=== PATIENT | male | born 1950 | race Caucasian/White ===

== ENCOUNTER 2019-06-19 21:45 | Observation (INO) ==
[2019-06-19] MEDS ORDERED: SODIUM CHLORIDE 0.9% 500 ML IV SCH (22:30)
--- NOTE | 2019-06-19 22:46 | XRay Report ---
XR chest 1V portable HISTORY: 68 years-old Male syncope acute syncope COMPARISON: Chest radiograph 11/30/2015 TECHNIQUE: Portable AP view of the chest FINDINGS: Cardiac silhouette is mildly enlarged. Right greater than left bibasilar opacities are noted. Mild hy poinflation. No pneumothorax, large pleural effusion or overt pulmonary edema. Calcified plaque of th e thoracic aortic arch. Bones appear grossly intact. IMPRESSION: Right greater than left bibasilar opacities suggest probable atelectasis. Pneumonitis cou ld appear similarly. ACT 112: Negative or not required by law. The above report was generated using voice recognition software. It may contain grammatical, syntax o r spelling errors. Electronically signed by: Kyrie Gordon M.D. 06/19/2019 10:44 PM
[2019-06-19 22:48] LABS: Basophils # (auto) 0.02 K/uL (0-0.2); Basophils % (auto) 0.2 %; Eosinophils # (auto) 0.12 K/uL (0-0.5); Eosinophils % (auto) 1.3 %; Hematocrit (blood only) 36.6 % (42-52); Hemoglobin 12.3 g/dL (14.0-18.0); Immature Granulocytes # (auto) 0.03 K/uL (0.00-0.02); Immature Granulocytes % (auto) 0.3 %; Lymphocytes # (auto) 1.52 K/uL (1.2-3.4); Lymphocytes % (auto) 16.4 %; Mean Corpuscular Hemoglobin 31.7 pg (25-34); Mean Corpuscular Hgb Conc 33.6 g/dL (32-36); Mean Corpuscular Volume 94.3 fL (80-100); Mean Platelet Volume 10.1 fL (7.4-10.4); Monocytes # (auto) 0.38 K/uL (0.11-0.59); Monocytes % (auto) 4.1 %; Neutrophils # (auto) 7.18 K/uL (1.4-6.5); Neutrophils % (auto) 77.7 %; Platelet Count 214 K/uL (130-400); RDW Coefficient of Variation 14.8 % (11.5-14.5); RDW Standard Deviation 49.9 fL (36.4-46.3); Red Blood Count 3.88 M/uL (4.7-6.1); White Blood Count 9.25 K/uL (4.8-10.8)
[2019-06-19 23:07] LABS: Alanine Aminotransferase 41 U/L (12-78); Albumin Level 3.7 gm/dl (3.4-5.0); Aspartate Aminotransferase 30 U/L (15-37); BUN Creatinine Ratio 11.5 (10-20); Blood Urea Nitrogen 13 mg/dl (7-18); Calcium 8.8 mg/dl (8.5-10.1); Carbon Dioxide 27 mmol/L (21-32); Chloride 111 mmol/L (98-107); Creatinine Clr Calc Pharmacy 57.6 ml/min; Est GFR (African American) 73.3; Est GFR (Non-African American) 63.2; Glucose 135 mg/dl (70-99); Lipase 169 U/L (73-393); Magnesium 2.2 mg/dl (1.8-2.4); Potassium 3.8 mmol/L (3.5-5.1); Sodium 142 mmol/L (136-145)
[2019-06-19 23:17] LABS: Albumin Globulin Ratio 1.1 (0.9-2); Alkaline Phosphatase 95 U/L (45-117); Bilirubin,Total 0.5 mg/dl (0.2-1); Globulin 3.5 gm/dl (2.5-4.0); Total Protein 7.2 gm/dl (6.4-8.2); Troponin I < 0.015 ng/ml (0-0.045)
[2019-06-19] MEDS ORDERED: OPTIRAY 320 125ml IV PRN (23:17)
[2019-06-20] MEDS ORDERED: METOPROLOL TARTRATE 25 MG TAB PO STA (02:15)
[2019-06-20] MEDS ORDERED: GABAPENTIN 800 MG TAB PO STA (02:15)
--- NOTE | 2019-06-20 02:43 | Emergency Department Note ---
Entered by Estela Cummings acting as a scribe for Margarito Sandoval MD ED Provider Note CHIEF COMPLAINT: Syncope HISTORY OF PRESENT ILLNESS: The patient is a 68 year old male who presents to the Emergency Room with complaints of syncope. The patient states that he was napping on his couch for about 10 minutes this evening when he got up to go to bed, began walking up the stairs, and suddenly felt uneasy while standing. He explains that he then began to experience nausea, one episode of vomiting, and lightheadedness followed by a syncopal episode. He states that he fell onto his knees and his fall was witnessed by his family. The patient's family reports seizure like activity during the episode and explain that his body was "clenched" and that he started making grunting noises. The episode lasted for about 40 seconds. The patient did not hit his head but he began experiencing a headache which he describes as "a rubber band around his head". Currently, he admits that his head feels better than it did when the episode happened but he still reports some pressure. The patient also experiences some lightheadedness when he sits up in bed. He also reports some numbness and tingling in his forehead. Family states that he felt numb all over his body after the episode. Of note, the patient admits that he was feeling fine earlier in the day today and that he did not eat anything unusual for dinner nor can he recall any known sickness exposure. He was given Zofran and fluids by EMS in route which he states somewhat helped his symptoms. Pt denies fevers, chills, diaphoresis, visual changes, neck pain, chest pain, breathing difficulties, abdominal pain, back pain, melena, hematochezia, urinary symptoms, lymphadenopathy, rash, or other complaints. REVIEW OF SYSTEMS: See HPI for pertinent positives and negatives. A total of ten systems were reviewed and were otherwise negative. PMHx/PSHx: Vertigo, 2 cerebral aneurysms, aortic aneurysm SOCIAL HISTORY: Patient lives at home. PHYSICAL EXAM: GENERAL: Awake, alert, tired-appearing, in no distress HENT: Normocephalic, atraumatic. Oropharynx unremarkable. EYES: PERRL. Normal conjunctiva. Sclera non-icteric. NECK: Inspection normal. Non-tender. Supple. No nuchal rigidity. FROM. No masses. RESPIRATORY: Clear to auscultation. No wheezes. No rales. Normal respiratory effort. CARDIAC: Normal rate. Normal rhythm. No murmurs. No rubs. Extremities warm and well perfused. Pulses equal. No JVD. GI: Soft, non-distended. No tenderness to palpation. No rebound or guarding. No masses. RECTAL: Deferred. MUSCULOSKELETAL: Atraumatic. Chest examination reveals no tenderness. The back is symmetrical on inspection without obvious abnormality. There is no CVA tenderness to palpation. No joint edema. LOWER EXTREMITIES: Calves are equal size bilaterally and non-tender. No edema. No discoloration. NEURO: Normal sensorium. No sensory or motor deficits noted. Cranial nerves II through XII intact. Normal PROMISE. Normal heel to downing. SKIN: No rash or jaundice noted. EMERGENCY DEPARTMENT COURSE: 2200: Past medical records reviewed. The patient was evaluated in room B03A, and a complete history and physical examination were performed. 2203: The patient was placed on a monitor tech. 0027: I checked on the patient and he states that he is feeling improved. 0042: [facility] 0045: I checked on the patient and updated him on plan to admit. The patient verbally expressed understanding and agreement of the treatment plan. The patient will be evaluated for further treatment. MEDICAL DECISION MAKING: Prior records/ancillary studies reviewed. Triage Nursing notes reviewed and agree them. Additional history obtained from the family. The patient's history was concerning for syncope. Differential diagnosis: Etiologies such as infection, hypoglycemia, electrolyte abnormalities, cardiac sources, intracerebral event, toxicologic, neurologic, as well as others were entertained. Physical examination: As above. No focal findings. ER treatment provided: IV hydration with normal saline On reassessment the patient felt better. Diagnostics interpretation by me: ECG: Normal sinus without ectopy or dysrhythmia. No interval prolongation. The labs revealed mild anemia on CBC. Chemistry panel was unremarkable. Troponin negative. Imaging studies: CT angiogram of the head was performed. No acute hemorrhage. Cerebral aneurysms are noted. These are consistent with the patient's description. Chest imaging negative. The patient had a syncopal episode. There was not a significant prodrome to this. It did occur shortly after getting up. The patient has not had any recent illnesses. He has no stigmata of DVT or has not been traveling. No recent surgeries or hospitalizations. He was requiring some supplemental oxygen via nasal cannula after initial evaluation in the ER. He does have a history of smoking. He cannot have chest CT scan done as he is already seeing a dye load. Given the syncopal episode and need for supplemental oxygen the patient should stay in the hospital for further management. Consultation: A consultation was placed with the [facility] hospitalist. The case was discussed and diagnostics were reviewed. The patient was evaluated in the ER for further treatment. Continuous Cardiac Monitoring: An order was placed for continuous cardiac monitoring. The monitor shows a rate of 83 with normal sinus rhythm and no PACs or PVCs. IMPRESSION: * Syncope * Hypoxia PLAN: Admitted. Being evaluated by hospitalist. The scribe's documentation has been prepared under my direction and personally reviewed by me in its entirety. I confirm that the note above accurately reflects all work, treatment, procedures, and medical decision making performed by me. Impression & Plan Syncope, Hypoxia Past Med/Surg History Medical History Aortic aneurysm Cerebral aneurysm (Inactive) Vertigo Surgical History No pertinent past surgical history Social History Preferred Language: German Feels Safe at Home: Yes Smoking Status: Former smoker Results & Data Vital Signs Vital Signs - 24 hr 06/19/19 21:45 06/19/19 21:53 06/19/19 22:00 Temperature 36.5 C Temperature Source Oral Pulse Rate 72 74 80 Pulse Rate from SpO2 Sensor Pulse Rhythm Regular Respiratory Rate 16 20 20 Respiratory Effort / Characteristics Non-Labored Respiratory Depth Normal Respiratory Pattern Regular Blood Pressure 106/70 106/70 112/69 Blood Pressure Mean 82 78 86 Pulse Oximetry 94 Oxygen Delivery Method Room Air Oxygen Flow Rate Sepsis Recent Fever Within 48 Hours No Sepsis New/Unexplained Change in Mental Status No Sepsis Action Taken by Nursing No Action Required 06/19/19 22:40 06/19/19 23:00 06/20/19 00:08 Temperature Temperature Source Pulse Rate 72 81 84 Pulse Rate from SpO2 Sensor Pulse Rhythm Regular Respiratory Rate 16 13 Respiratory Effort / Characteristics Respiratory Depth Respiratory Pattern Blood Pressure Blood Pressure Mean Pulse Oximetry 94 Oxygen Delivery Method Room Air Oxygen Flow Rate Sepsis Recent Fever Within 48 Hours Sepsis New/Unexplained Change in Mental Status Sepsis Action Taken by Nursing 06/20/19 00:09 06/20/19 00:15 06/20/19 00:16 Temperature Temperature Source Pulse Rate 78 Pulse Rate from SpO2 Sensor 77 Pulse Rhythm Respiratory Rate 15 Respiratory Effort / Characteristics Respiratory Depth Respiratory Pattern Blood Pressure 109/65 Blood Pressure Mean 73 Pulse Oximetry 91 88 L 96 Oxygen Delivery Method Room Air Nasal Cannula Oxygen Flow Rate 2 Sepsis Recent Fever Within 48 Hours Sepsis New/Unexplained Change in Mental Status Sepsis Action Taken by Nursing 06/20/19 00:30 06/20/19 01:00 06/20/19 01:30 Temperature Temperature Source Pulse Rate 75 76 77 Pulse Rate from SpO2 Sensor 76 Pulse Rhythm Respiratory Rate 15 17 19 Respiratory Effort / Characteristics Respiratory Depth Respiratory Pattern Blood Pressure 109/66 112/65 112/63 Blood Pressure Mean 91 74 75 Pulse Oximetry 95 Oxygen Delivery Method Oxygen Flow Rate Sepsis Recent Fever Within 48 Hours Sepsis New/Unexplained Change in Mental Status Sepsis Action Taken by Nursing 06/20/19 02:00 Temperature Temperature Source Pulse Rate 72 Pulse Rate from SpO2 Sensor 71 Pulse Rhythm Respiratory Rate 13 Respiratory Effort / Characteristics Respiratory Depth Respiratory Pattern Blood Pressure Blood Pressure Mean Pulse Oximetry 95 Oxygen Delivery Method Oxygen Flow Rate Sepsis Recent Fever Within 48 Hours Sepsis New/Unexplained Change in Mental Status Sepsis Action Taken by Care Home Medications Current Medication List: was personally reviewed by me Laboratory Data Attestation: I reviewed the patient's lab results. Result diagrams: 06/19/19 22:35 06/19/19 22:35 Lab Results 06/19/19 06/19/19 Range/Units 22:35 22:35 WBC 9.25 (4.8-10.8) K/uL RBC 3.88 L (4.7-6.1) M/uL Hgb 12.3 L (14.0-18.0) g/dL Hct 36.6 L (42-52) % MCV 94.3 (80-100) fL MCH 31.7 (25-34) pg MCHC 33.6 (32-36) g/dL RDW Std Deviation 49.9 H (36.4-46.3) fL RDW Coeff of Annie 14.8 H (11.5-14.5) % Plt Count 214 (130-400) K/uL MPV 10.1 (7.4-10.4) fL Immature Gran % (Auto) 0.3 % Neut % (Auto) 77.7 % Lymph % (Auto) 16.4 % [place]ole % (Auto) 4.1 % Eos % (Auto) 1.3 % Baso % (Auto) 0.2 % Immature Gran # (Auto) 0.03 H (0.00-0.02) K/uL Neut # (Auto) 7.18 H (1.4-6.5) K/uL Lymph # (Auto) 1.52 (1.2-3.4) K/uL [place]ole # (Auto) 0.38 (0.11-0.59) K/uL Eos # (Auto) 0.12 (0-0.5) K/uL Baso # (Auto) 0.02 (0-0.2) K/uL Sodium 142 (136-145) mmol/L Potassium 3.8 (3.5-5.1) mmol/L Chloride 111 H (98-107) mmol/L Carbon Dioxide 27 (21-32) mmol/L Anion Gap 4.0 (3-11) BUN 13 (7-18) mg/dl Creatinine 1.17 (0.6-1.4) mg/dl Est Cr Clr Drug Dosing 57.6 ml/min Est GFR ( Amer) 73.3 Est GFR (Non-Af Amer) 63.2 BUN/Creatinine Ratio 11.5 (10-20) Glucose 135 H (70-99) mg/dl Calcium 8.8 (8.5-10.1) mg/dl Magnesium 2.2 (1.8-2.4) mg/dl Total Bilirubin 0.5 (0.2-1) mg/dl AST 30 (15-37) U/L ALT 41 (12-78) U/L Alkaline Phosphatase 95 (45-117) U/L Troponin I < 0.015 (0-0.045) ng/ml Total Protein 7.2 (6.4-8.2) gm/dl Albumin 3.7 (3.4-5.0) gm/dl Globulin 3.5 (2.5-4.0) gm/dl Albumin/Globulin Ratio 1.1 (0.9-2) Lipase 169 (73-393) U/L TSH 1.370 (0.300-4.500) uIu/ml Administered Medications Ioversol (Optiray 320 125ml) 119 ml IV ONCE PRN PRN Reason: Interaction Checking Stop: 06/23/19 23:16 Last Admin: 06/19/19 23:17 Dose: 119 ml Documented by: [id number] Discontinued Medications Sodium Chloride (Nss) 500 mls @ 999 mls/hr IV .Q31M CARLI Stop: 06/19/19 23:00 Last Infusion: 06/19/19 23:28 Dose: 0 mls/hr Documented by: [id number] Admin: 06/19/19 22:43 Dose: 999 mls/hr Documented by: [id number] Imaging Data Radiologist's Impression: Radiology results as stated below per my review and the radiologist's interpretation: XR chest 1V portable HISTORY: 68 years-old Male syncope acute syncope COMPARISON: Chest radiograph 11/30/2015 TECHNIQUE: Portable AP view of the chest FINDINGS: Cardiac silhouette is mildly enlarged. Right greater than left bibasilar opacities are noted. Mild hypoinflation. No pneumothorax, large pleural effusion or overt pulmonary edema. Calcified plaque of the thoracic aortic arch. Bones ap pear grossly intact. IMPRESSION: Right greater than left bibasilar opacities suggest probable atele ctasis. Pneumonitis could appear similarly. ACT 112: Negative or not required by law. The above report was generated using voice recognition software. It may contain grammatical, syntax or spelling errors. Electronically signed by: Kyrie Gordon M.D. 06/19/2019 10:44 PM CTA HEAD: Comparison made with CT angiogram of the head 07/29/2015 No evidence of acute intracranial hemorrhage. 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 CT HEAD: Comparison made with CT head 11/30/2015 No acute intracranial hemorrhage. No mass-effect or midline shift. Scattered subcortical foci of hyperattenuation, most likely sequela of chronic small vessel ischemic changes, Mild right ethmoidal paranasal sinus disease. Radiologist: Keyshawn Kelley MD Study ready at 23:35 and initial results transmitted at 23:50. ECG Data Attestation: I personally reviewed and interpreted this ECG as follows: Indication: + syncope Rate (beats per minute): 83 Rhythm: normal sinus ECG Intervals/blocks: + Normal QRS ECG [place]: + Normal ECG ST segments: no ST elevation ECG Findings: + LVH; no PACs and no PVCs Comparison ECG Date: from (11/30/15) Change: no significant change Blood Pressure Blood Pressure Findings: Low blood pressure Blood Pressure Disposition: further management by hospitalist Discharge Plan Visit Data Chief Complaint: Syncope (Near Syncope) Stated Complaint: NEAR SYNCOPE, POSSIBLE SEIZURE ED Provider: Margarito Sandoval Discharge Problem: Syncope, Hypoxia Patient Disposition: Being Evaluated by Hospitalist Forms Stand Alone Forms: [facility] Prescriptions Prescriptions: No Action gabapentin 800 mg tablet 800 mg PO TID RF: 0 amlodipine 10 mg tablet 10 mg PO DAILY RF: 0 metoprolol tartrate 25 mg tablet 12.5 mg PO BID RF: 0 atorvastatin 40 mg Tablet 40 mg PO HS RF: 0 aspirin 81 mg Tablet,Delayed Release (Dr/Ec) 81 mg PO DAILY RF: 0 Referrals Referrals: Mauro Watson DO [Primary Care Provider] - Discharge Problem: Syncope Qualifiers: Syncope type: unspecified Qualified Code(s): R55 - Syncope and collapse The scribe's documentation has been prepared under my direction and personally reviewed by me in its entirety. I confirm that the note above accurately refle cts all work, treatment, procedures, and medical decision making performed by me.
[2019-06-20] MEDS ORDERED: METOPROLOL TARTRATE 50 MG TAB ONE (02:47)
[2019-06-20] MEDS ORDERED: POLYETHYLENE (MIRALAX) 17 GM PACK PO PRN (03:18)
[2019-06-20] MEDS ORDERED: NITROGLYCERIN SL 0.4 MG/TAB TAB SL PRN (03:18)
[2019-06-20] MEDS ORDERED: ONDANSETRON INJ 2 MG/ML 2 ML VIAL IV PRN (03:18)
[2019-06-20] MEDS ORDERED: ACETAMINOPHEN 325 MG TAB PO PRN ×2 (03:18→07:06)
--- NOTE | 2019-06-20 06:31 | History and Physical Report ---
DATE OF ADMISSION: 06/20/2019 CHIEF COMPLAINT: Syncope. 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 The patient says he was sitting on a couch, was trying to go to bed. When he stood up, he was very weak and felt tired and passed out. Does not know does not know how long he stayed, but his son-in-law said he passed out for about 20 seconds and the son-in-law thought the patient might be having seizures because his father had Parkinson's and has had seizure episodes.But the patient has not told that he was shaking his body and there is no biting of tongue and no bowel or bladder incontinence. When he woke up, he was confused for about 15 minutes and he initially was also very weak and tired and could not get up . Currently in the ER, his workup was unremarkable, hemodynamically stable except for his oxygen saturations were 88% on room air. The patient quit smoking few years back, but no wheezing on exam, on 2 liters he is saturating fine. Currently resting comfortable and hemodynamically stable. Troponin is negative, Ekg unremarkable. Denies any chest pain. No cough, no fever, no chills. Currently no headache. When he wears glasses, no blurred vision, no double vision. No runny nose, no sore throat. Appetite is okay. No difficulty swallowing. Sleeps okay. Otherwise ambulates okay. No nausea, no vomiting, no abdominal pain. Normal bowel and bladder movements. No swelling in the legs, no rash. ALLERGIES: No known drug allergies. PAST MEDICAL HISTORY: As mentioned above. PAST SURGICAL HISTORY: AAA repair, catheter placement internal carotid artery, colonoscopy, multiple EGDs, hemorrhoidectomy, injection of lumbar spine, right radial artery line, bilateral aortic catheter placement, bilateral femoral artery exposure, catheter placement brachiocephalic, catheter placement vertebral artery.AAA repair. MEDICATIONS: The patient is on amlodipine 10 mg p.o. daily, aspirin 81 mg p.o. daily, atorvastatin 40 mg p.o. at bedtime, gabapentin 800 mg p.o. t.i.d., metoprolol 12.5 mg p.o. b.i.d. FAMILY HISTORY: Significant for father had AAA, hypertension. Paternal grandfather had cancer. Maternal grandfather had heart disorder, sudden in early 60s. Maternal grandfather also has hypertension. SOCIAL HISTORY: , lives with his family. Quit smoking in 2014. Smoked quarter pack for 35 years. Alcohol, 1 a day. Drug use, seldom marijuana. REVIEW OF SYMPTOMS: As per HPI. Rest of the review of symptoms negative. PHYSICAL EXAMINATION: GENERAL: The patient is of moderate build, not in acute distress. VITAL SIGNS: Temperature 36.5, pulse 72, respiratory rate 13, blood pressure 112/63, oxygen 95% on 2 liters and 88% on room air. HEENT: No pallor, no icterus. Pupils equal, round, reactive to light. NECK: No JVD, no masses, no carotid bruits. CARDIOVASCULAR: S1, S2 heard. Regular rate and rhythm. No murmur, no gallop. RESPIRATORY SYSTEM: Normal AP diameter. No accessory muscle use. No wheezing, no crackles. ABDOMEN: Soft, bowel sounds present, nontender. No distention. CENTRAL NERVOUS SYSTEM: Cranial nerves II-XII grossly intact. Alert and oriented. Speech clear. Power 5/5 in all extremities. Coordination of movements normal. Nonfocal. EXTREMITIES: No edema, no erythema. LABORATORY DATA: WBC 9.2, hemoglobin 12.3, hematocrit 36.6, platelets 214. Sodium 142, potassium 3.8, chloride 111, bicarb 27, BUN 13, creatinine 1.17, serum glucose 135, calcium 8.8, magnesium 2.2. Total bilirubin 0.5, AST 30, ALT 41, alkaline phosphatase 94. Troponin I less than 0.015. Lipase 169. TSH 1.3. IMAGING: Chest x-ray: left bibasilar opacities. 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 ASSESSMENT AND PLAN: This is a 68-year-old male who presents with syncope. 1. Syncope versus seizures,passed out for about 20 seconds. Son-in-law thought he might have seizures, but no reports of shaking in body, no incontinence, no biting of tongue, was confused for about 15 minutes when he regained consciousness. We will check orthostatics. We will check echocardiogram. Monitor in tele floor. CTA of the head and CT head preliminary report is unremarkable. We will follow the final report. We will also get EEG and consult Neurology for further recommendations in a.m. Will also get d dimer as have wait for 24hrs for CTA chest.. 2. History of hyperlipidemia. Continue statin. 3. Chronic back pain, on Neurontin. Follow with Orthopedics. 4. Hypertension, on Lopressor b.i.d.,will monitor. 5. CAD. beta justice, statin and aspirin. 6. status post AAA repair.Hx of cerebral aneurysm, Hx of left ICA stent placement. 7. DVT prophylaxis, SCD. DISPOSITION: Closely monitor in the med/surg tele. Level 1 full code. PT and OT prior to discharge. Social Service to help with discharge planning. CITLALLI
--- NOTE | 2019-06-20 06:36 | CT Scan Report ---
HEAD CTA HISTORY: syncope. hx of 3.5 and 7mm aneurysms(7mm coiled) TECHNIQUE: Multiaxial CT images of the head were performed both before and after the intravenous admi nistration of contrast to evaluate the major cerebral vessels. Maximum intensity projection images we re also obtained. A dose lowering technique was utilized adhering to the principles of ALARA. COMPARISON: Head CTA 07/29/2015. FINDINGS: There is no mass, hematoma, midline shift, or acute infarct. Visualized intracranial international coordinator al carotid arteries, distal vertebral arteries, and basilar artery are widely patent. There is no sig nificant stenosis or occlusion seen within the bilateral ACAs, MCAs, or demurrage worker. There is a 3 mm aneurys m at the origin of the right posterior communicating artery. Status post coiling of the 10 mm left in ternal carotid artery aneurysm. IMPRESSION: 1. No acute intracranial abnormality. 2. No significant stenosis or occlusion within the [place]. 3. A 3 mm aneurysm at the origin of the right posterior communicating artery. 4. Status post coiling of the 10 mm left internal carotid artery aneurysm. ACT 112: Negative or not required by law. Electronically signed by: Rodriguez Marie M.D. 06/20/2019 6:35 AM
[2019-06-20] MEDS: ASPIRIN 81 MG ECTAB PO SCH (07:47)
[2019-06-20] MEDS: METOPROLOL TARTRATE 25 MG TAB PO SCH ×2 (07:47→20:32)
[2019-06-20 07:50] LABS: Partial Thromboplastin Ratio 0.9; Partial Thromboplastin Time 24.1 Seconds (21.0-31.0); Prothrombin Time 10.4 Seconds (9.0-12.0)
[2019-06-20 08:39] LABS: D Dimer 1130 ug/L FEU (0-500)
[2019-06-20] MEDS ORDERED: AMLODIPINE BESYLATE 5 MG TAB PO SCH (09:00)
[2019-06-20] MEDS ORDERED: GABAPENTIN 400 MG CAP PO SCH (09:00)
[2019-06-20] MEDS ORDERED: GABAPENTIN 800 MG TAB PO SCH (09:00)
[2019-06-20] MEDS: SODIUM CHLORIDE 0.9% 1000ML 1,000 ML IV SCH ×2 (09:26→21:30)
[2019-06-20] MEDS ORDERED: OPTIRAY 320 125ml IV PRN (11:06)
--- NOTE | 2019-06-20 11:28 | CT Scan Report ---
CHEST CTA for PULMONARY ARTERIES CT DOSE: 447.36 mGy.cm HISTORY: Shortness of breath. rule out pulmonary embolism TECHNIQUE: Multiaxial CT images of the chest were performed following the intravenous administration of contrast to evaluate the pulmonary arteries. Maximal intensity projection images were also obtaine d. A dose lowering technique was utilized adhering to the principles of ALARA. COMPARISON STUDY: Chest CTA 06/12/2010. FINDINGS: Slight increase in size in the 2.9 cm left adrenal gland nodule. This does not clearly repr esent a benign adenoma. The visualized liver and spleen are unremarkable. Small hiatus hernia. No med iastinal or hilar lymphadenopathy. No pleural or pericardial effusions. The heart is normal in size. Normal caliber thoracic aorta with no evidence for dissection. No filling defects within the pulmonar y arteries to suggest pulmonary embolus. No suspicious lytic are blastic osseous lesions. The central airways are patent. No pneumothorax. Mild emphysema. Groundglass densities within the lungs posterio rly favor mild dependent change. Otherwise, no focal lung consolidations to suggest pneumonia. Stable subtle groundglass density within the left lung apex which favors scarring given the long-term stabi lity. IMPRESSION: 1. No evidence for pulmonary embolus. 2. Slight increase in size in the 2.9 cm left adrenal gland nodule compared to the 2011 examination. This favors a benign adenoma but does not clearly represent an adenoma by CT criteria. Follow-up none mergent adrenal MRI can be performed for further evaluation. 3. Mild emphysema. 4. Groundglass densities within the lungs posteriorly favor mild dependent change. ACT 112: Negative or not required by law. Electronically signed by: Rodriguez Marie M.D. 06/20/2019 11:26 AM
--- NOTE | 2019-06-20 11:44 | Progress Note ---
DATE: 06/20/2019 REASON FOR CONSULTATION: Syncope versus seizure. 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 He was in his usual state of health, fell asleep sitting on a couch. When he stood up to go to bed, he felt generally weak, nauseated, perhaps lightheaded, mildly diaphoretic. He apparently had a brief 20 second loss of consciousness without seizure, but apparently the patient's son-in-law thought that the patient may have had a seizure because his father had Parkinson's disease and had seizure. No incontinence or tongue biting, was mildly confused thereafter and could not get up. I do not know the results of vitals at the home. The patient has had episodes since gabapentin was started, feeling woozy and with standing that his legs feel weak and he feels pressure in his head. The patient has otherwise been well. Otherwise, none of his meds were new or changed in dose. PAST MEDICAL HISTORY: As above. PAST SURGICAL HISTORY: Abdominal aortic aneurysm repair, left internal carotid artery procedure for aneurysm. PAST SURGICAL HISTORY: Colonoscopy, EGD, hemorrhoidectomy, lumbar epidural steroids, right radial arterial line, bilateral aortic catheter placement, bilateral femoral artery exposure, catheter placement in the brachiocephalic, catheter placed in the vertebral artery. HOME MEDICATIONS: Amlodipine, aspirin, atorvastatin, gabapentin 800 t.i.d. ALLERGIES: No drug allergies. FAMILY HISTORY: Hypertension, abdominal aortic aneurysm. SOCIAL HISTORY: Quit smoking in 2014. Alcohol 1 a day. Occasional use of marijuana. CTA of the head shows visualized brain to be unremarkable. A 3 mm aneurysm at the origin in the left ENVIRONMENT ARTIST, status post coiling of a 10 mm left internal carotid artery aneurysm. LABORATORY DATA: Notable for a hemoglobin of 12.3, hematocrit 36.6, platelet count 214. PT, PTT normal. D-dimer 1130. Electrolytes normal with the exception of a glucose of 135. Electrocardiogram, sinus rhythm, minimal voltage for LVH, borderline ECG. Initial blood pressure on admission 109/65, O2 sat at its lowest at our facility was 88. PHYSICAL EXAMINATION: CURRENT VITAL SIGNS: 36.4, 67, 17, 102/65, 77, 98%. GENERAL: The patient is awake and alert, normal speech and language. Affect is appropriate. NECK: There are no carotid bruits. HEART: No heart murmurs. Heart is regular rate and rhythm. NEUROLOGIC: Pupils are equal, round, reactive to light. The optic nerves are unremarkable. Normal mendes, motility, facial sensation and facial symmetry. Speech and language are normal. Tongue is midline. Provocative head maneuvers are negative. There is full strength, no drift. Normal rapid alternating movements. Symmetric reflexes. Downgoing toes. [id number] and ulod-[id number] are nondystaxic. There is intact light touch bilaterally. IMPRESSION: Suspect hemodynamic event such as orthostatic hypotension. Query relationship of hypoxemia. Cannot entirely exclude a posterior circulation transient ischemic attack. The nausea could speak of the same but also could speak of bradycardia. I believe it would be reasonable to do an MRI of the brain with and without contrast due to the fact that there was some clinical question of seizure, albeit this sounds more like a Ford-Wong attack. EEG which has been ordered. An MRI/MRA of the neck to complete the vascular evaluation since he will be going for MRI later. Orthostatic blood pressures. The patient cardiac monitoring, echocardiography. Further evaluation and treatment depend on the results of the above. The patient has felt vaguely off balance and unwell since being on increasing doses of gabapentin, would reduce the dose to 600 mg 3 times a day and consider tapering and discontinuing. The patient was on this for back pain and the back pain has resolved. Left ENVIRONMENT ARTIST 3 mm aneurysm. The patient is known to neurovascular at [place]. He should follow up with them as he was recommended. We will follow with you.
[2019-06-20 11:46] LABS: Appearance Urine Clear (Clear); Bilirubin Urine Negative (Negative); Blood Urine Negative (Negative); Color Urine Yellow; Glucose Urine UA Negative (Negative); Ketones Urine Negative (Negative); Leukocyte Esterase Urine Negative (Negative); Nitrite Urine Negative (Negative); Protein Urine Negative (Negative); Specific Gravity Urine 1.031 (1.000-1.030); Urobilinogen Urine Negative (Negative); pH Urine 8.5 (4.5-7.5)
--- NOTE | 2019-06-20 13:32 | Electroencephalogram ---
EEG Procedure Note Date of Service June 20, 2019 Start / End Times Start Time: 09:59 End Time: 10:[address] Moreira History A 68-year-old male admitted with seizures. EEG performed for evaluation of epileptiform activity. Home Medication List Home Medications Medication Instructions Recorded Confirmed Type amlodipine 10 mg PO DAILY 06/20/19 06/20/19 History aspirin 81 mg PO DAILY 06/20/19 06/20/19 History atorvastatin 40 mg PO HS 06/20/19 06/20/19 History gabapentin 800 mg PO TID 06/20/19 06/20/19 History metoprolol tartrate 12.5 mg PO BID 06/20/19 06/20/19 History Inpatient Medication List Aspirin (Ecotrin Ectab) 81 mg PO DAILY [facility] Stop: 07/20/19 08:59 Last Admin: 06/20/19 07:47 Dose: 81 mg Documented by: [id number] Sodium Chloride (Nss 1000ml) 1,000 mls @ 80 mls/hr IV .[id number] [facility] Stop: 07/20/19 09:14 Last Admin: 06/20/19 09:26 Dose: 80 mls/hr Documented by: [id number] Ioversol (Optiray 320 125ml) 119 ml IV ONCE PRN PRN Reason: Interaction Checking Stop: 06/24/19 11:05 Last Admin: 06/20/19 11:06 Dose: 119 ml Documented by: [id number] Metoprolol Tartrate (Lopressor) 12.5 mg PO BID [facility] Stop: 07/20/19 08:59 Last Admin: 06/20/19 07:47 Dose: 12.5 mg Documented by: [id number] Discontinued Medications Gabapentin (Neurontin) 800 mg PO NOW STA Stop: 06/20/19 02:16 Last Admin: 06/20/19 02:56 Dose: 800 mg Documented by: [id number] Gabapentin (Neurontin) 400 mg PO TID [facility] Stop: 07/20/19 08:59 Last Admin: 06/20/19 07:48 Dose: 400 mg Documented by: [id number] Sodium Chloride (Nss) 500 mls @ 999 mls/hr IV .Q31M [facility] Stop: 06/19/19 23:00 Last Infusion: 06/19/19 23:28 Dose: 0 mls/hr Documented by: [id number] Admin: 06/19/19 22:43 Dose: 999 mls/hr Documented by: [id number] Ioversol (Optiray 320 125ml) 119 ml IV ONCE PRN PRN Reason: Interaction Checking Stop: 06/23/19 23:16 Last Admin: 06/19/19 23:17 Dose: 119 ml Documented by: [id number] Metoprolol Tartrate (Lopressor) 12.5 mg PO NOW STA Stop: 06/20/19 02:16 Last Admin: 06/20/19 02:51 Dose: Not Given Documented by: [id number] Metoprolol Tartrate (Lopressor) Confirm Administered Dose 50 mg .ROUTE .[facility] Stop: 06/20/19 02:48 Last Admin: 06/20/19 02:50 Dose: 12.5 mg Documented by: [id number] Description This is a 21 electrode EEG with a single channel dedicated to limited EKG. The electrodes were placed in accordance with the International 10-20 system. REPORT: At the onset of the EEG the patient is awake. The background is symmetric with a normal anterior to posterior gradient. The posterior dominant rhythm is 9-10 Hz. Anteriorly the rhythm consists of low amplitude beta range activity. Drowsiness is characterized by increased theta activity with reduced muscle artifact and reduced blink rate. No stage II sleep transients are recorded. Photic stimulation does not elicit any abnormalities. IMPRESSION: This is a normal awake and drowsy EEG. No focal slowing or epileptiform activity is recorded.
[2019-06-20] MEDS: GABAPENTIN 600 MG TAB PO SCH ×2 (13:36→20:32)
--- NOTE | 2019-06-20 14:16 | Hospitalist Progress Note ---
Date of Service June 20, 2019 Assessment & Plan (1) Syncope: -as per admission ED notes on 06/19/2019 "The patient is a 68 year old male who presents to the Emergency Room with complaints of syncope. The patient states that he was napping on his couch for about 10 minutes this evening when he got up to go to bed, began walking up the stairs, and suddenly felt uneasy while standing. He explains that he then began to experience nausea, one episode of vomiting, and lightheadedness followed by a syncopal episode. He states that he fell onto his knees and his fall was witnessed by his family. The patient's family reports seizure like activity during the episode and explain that his body was "clenched" and that he started making grunting noises. The episode lasted for about 40 seconds. The patient did not hit his head but he began experiencing a headache which he describes as "a rubber band around his head". Currently, he admits that his head feels better than it did when the episode happened but he still reports some pressure. The patient also experiences some lightheadedness when he sits up in bed. He also reports some numbness and tingling in his forehead. Family states that he felt numb all over his body after the episode. Of note, the patient admits that he was feeling fine earlier in the day today and that he did not eat anything unusual for dinner nor can he recall any known sickness exposure. He was given Zofran and fluids by EMS in route which he states somewhat helped his symptoms. Pt denies fevers, chills, diaphoresis, visual changes, neck pain, chest pain, breathing difficulties, abdominal pain, back pain, melena, hematochezia, urinary symptoms, lymphadenopathy, rash, or other complaints." -CT head 06/19/2019 1. No acute intracranial abnormality. 2. No significant stenosis or occlusion within the [place] of [place]. 3. A 3 mm aneurysm at the origin of the right posterior communicating artery. 4. Status post coiling of the 10 mm left internal carotid artery aneurysm -EEG on 06/20/2019 -as per neurology on 06/20/2019: normal awake and drowsy EEG. No focal slowing or epileptiform activity is recorded "Suspect hemodynamic event such as orthostatic hypotension. Query relationship of hypoxemia. Cannot entirely exclude a posterior circulation transient ischemic attack. The nausea could speak of the same but also could speak of bradycardia. I believe it would be reasonable to do an MRI of the brain with and without contrast due to the fact that there was some clinical question of seizure, albeit this sounds more like a Ford-Wong attack. EEG which has been ordered. An MRI/MRA of the neck to complete the vascular evaluation since he will be going for MRI later. Orthostatic blood pressures. The patient cardiac monitoring, echocardiography. Further evaluation and treatment depend on the results of the above. The patient has felt vaguely off balance and unwell since being on increasing doses of gabapentin, would reduce the dose to 600 mg 3 times a day and consider tapering and discontinuing. The patient was on this for back pain and the back pain has resolved." -currently awaiting MRI/MRA studies and PT/OT evaluations Elevated D-Dimer suspected left adrenal adenoma 1. No evidence for pulmonary embolus. 2. Slight increase in size in the 2.9 cm left adrenal gland nodule compared to the 2011 examination. This favors a benign adenoma but does not clearly represent an adenoma by CT criteria. Follow-up nonemergent adrenal MRI can be performed for further evaluation. 3. Mild emphysema. 4. Groundglass densities within the lungs posteriorly favor mild dependent change. Chronic back pain -on gabapentin History of coronary artery disease History of Hypertension -on Lopressor 12.5 mg BID, statin and aspirin -hold home dose amlodipine as blood pressures are not high History of hyperlipidemia -Continue statin History of status post abdominal aortic aneurysm repair, History of of cerebral aneurysm, History of left ICA stent placement. DVT prophylaxis: SCDs. Admission and Anticipated Discharge Date Admission Date: June 20, 2019, discharge date undetermined Subjective No acute distress. No headache. no dizziness. no shortness of breath. no chest pain. no abdomen pain. no nausea. no vmiting Review of Systems Review of Systems: All systems reviewed & are unremarkable except as noted in HPI & below Physical Exam Constitutional: comfortable Eyes: PERRL, conjunctivae normal, anicteric sclerae EOM intact bilaterally ENMT: external ear and nose normal, oropharynx normal Neck: normal visual inspection Respiratory: normal respiratory effort, lungs clear to auscultation Cardiovascular: Rate/Rhythm: regular rate and regular rhythm Gastrointestinal (Abdomen): normal bowel sounds, soft, nontender, no hepatosplenomegaly Musculoskeletal: Head/Neck/Chest: normocephalic and head atraumatic Neurologic: PERRL, EOMI, accommodation nl, no face palsy, no dysarthria moves all extremities Psychiatric: A+Ox3, euthymic affect Results & Data ([facility]) Vital Signs (Past 12 Hours) Vital Signs Temp Pulse Pulse Resp BP BP Pulse Ox 06/20/19 08:00 70 06/20/19 07:40 36.4 C L 67 17 102/65 98 06/20/19 03:52 36.5 C 68 69 18 107/69 95 06/20/19 03:18 36.8 C 85 19 141/71 H 99 06/20/19 02:30 74 17 118/65 95 (1) Syncope Syncope type: unspecified Qualified Code(s): R55 - Syncope and collapse
--- NOTE | 2019-06-20 18:08 | Electrocardiogram Report ---
Test Reason : Blood Pressure : / mmHG Vent. Rate : 083 BPM Atrial Rate : 083 BPM P-R Int : 140 ms QRS Dur : 084 ms QT Int : 384 ms P-R-T Axes : 056 -06 013 degrees QTc Int : 451 ms Normal sinus rhythm Minimal voltage criteria for LVH, may be normal variant Borderline ECG When compared with ECG of 30-NOV-2015 11:13, No significant change was found Confirmed by Ky Lundberg ([id number]) on 06/20/2019 6:08:23 PM Referred By: REFERRED SELF Confirmed By:Cameron Lundberg
[2019-06-20] MEDS ORDERED: ATORVASTATIN 40 MG TAB PO SCH (21:00)
[2019-06-21] MEDS: ASPIRIN 81 MG ECTAB PO SCH (07:51)
[2019-06-21] MEDS: GABAPENTIN 600 MG TAB PO SCH ×2 (07:52→13:50)
[2019-06-21] MEDS: METOPROLOL TARTRATE 25 MG TAB PO SCH (07:53)
[2019-06-21] MEDS: SODIUM CHLORIDE 0.9% 1000ML 1,000 ML IV SCH (09:44)
--- NOTE | 2019-06-21 11:48 | Progress Note ---
DATE: 06/21/2019 SUBJECTIVE: The patient was not in the room today when I went to see him, presumably down getting an MRI. I have reviewed his progress over the day. His EEG was normal. He was not significantly orthostatic. IMPRESSION: Await results of MRI/MRA of the posterior circulation, doubt this represented a transient ischemic attack or seizure. Await the results of an MRI.
[2019-06-21] MEDS ORDERED: GADOBUTROL 30ML VIAL IV PRN (12:22)
--- NOTE | 2019-06-21 12:53 | Magnetic Resonance Report ---
MR brain seizure wo/w con CLINICAL HISTORY: presyncope with weakness and nausea, post cir/sz COMPARISON STUDY: 07/29/2015 TECHNIQUE: Utilizing a 1.5 Lida magnet and dedicated coil, multiplanar, multiecho imaging of the br ain was performed pre and postcontrast administration. IV administration of 8.5 mL of Gadavist contr ast was uneventful. Thin cut coronal T2 imaging was performed according to seizure protocol. FINDINGS: Several foci of increased signal within the periventricular and deep white matter regions. This appearance is similar compared as compared to the prior study of 2015. No evidence for an acute ischemic process based on diffusion images. No abnormal postcontrast enhance ment. The ventricular system is midline. The sella and parasellar regions are unremarkable. Internal audito ry canals are symmetric. The 8mm aneurysm of the supraclinoid left internal carotid artery is unchang ed. IMPRESSION: 1. Age-related change. 2. Stable 8 mm left supraclinoid aneurysm. This shows no change as compared to prior studies. 3. No evidence for abnormal postcontrast enhancement ACT 112: Negative or not required by law. The above report was generated using voice recognition software. It may contain grammatical, syntax or spelling errors. Electronically signed by: Rishi Lopez M.D. 06/21/2019 12:51 PM
--- NOTE | 2019-06-21 12:55 | Magnetic Resonance Report ---
MR angio neck wo/w con HISTORY: Mental status change poss post circ tia TECHNIQUE: Multiaxial CT angiography of the neck was performed IV contrast: A 0.5 cc gadolinium All measurements were calculated based on NASCET criteria. Maximum intensity projection images were also obtained. A dose lowering technique was utilized adhering to the principles of ALARA. COMPARISON STUDY: None. FINDINGS: The aortic arch and proximal great vessels are widely patent. There is no significant sten osis, occlusion, or dissection identified within the bilateral common carotid, internal carotid, or v ertebral arteries. IMPRESSION: No significant stenosis, occlusion, or dissection identified within the carotid or vertebral arteries . ACT 112: Negative or not required by law. The above report was generated using voice recognition software. It may contain grammatical, syntax or spelling errors. Electronically signed by: Rishi Lopez M.D. 06/21/2019 12:53 PM
--- NOTE | 2019-06-21 13:27 | Hospitalist Progress Note ---
Date of Service June 21, 2019 Assessment & Plan (1) Syncope: -as per admission ED notes on 06/19/2019 "The patient is a 68 year old male who presents to the Emergency Room with complaints of syncope. The patient states that he was napping on his couch for about 10 minutes this evening when he got up to go to bed, began walking up the stairs, and suddenly felt uneasy while standing. He explains that he then began to experience nausea, one episode of vomiting, and lightheadedness followed by a syncopal episode. He states that he fell onto his knees and his fall was witnessed by his family. The patient's family reports seizure like activity during the episode and explain that his body was "clenched" and that he started making grunting noises. The episode lasted for about 40 seconds. The patient did not hit his head but he began experiencing a headache which he describes as "a rubber band around his head". Currently, he admits that his head feels better than it did when the episode happened but he still reports some pressure. The patient also experiences some lightheadedness when he sits up in bed. He also reports some numbness and tingling in his forehead. Family states that he felt numb all over his body after the episode. Of note, the patient admits that he was feeling fine earlier in the day today and that he did not eat anything unusual for dinner nor can he recall any known sickness exposure. He was given Zofran and fluids by EMS in route which he states somewhat helped his symptoms. Pt denies fevers, chills, diaphoresis, visual changes, neck pain, chest pain, breathing difficulties, abdominal pain, back pain, melena, hematochezia, urinary symptoms, lymphadenopathy, rash, or other complaints." -CT head 06/19/2019 1. No acute intracranial abnormality. 2. No significant stenosis or occlusion within the [place] of [place]. 3. A 3 mm aneurysm at the origin of the right posterior communicating artery. 4. Status post coiling of the 10 mm left internal carotid artery aneurysm -EEG on 06/20/2019 -as per neurology on 06/20/2019: normal awake and drowsy EEG. No focal slowing or epileptiform activity is recorded "Suspect hemodynamic event such as orthostatic hypotension. Query relationship of hypoxemia. Cannot entirely exclude a posterior circulation transient ischemic attack. The nausea could speak of the same but also could speak of bradycardia. I believe it would be reasonable to do an MRI of the brain with and without contrast due to the fact that there was some clinical question of seizure, albeit this sounds more like a Ford-Wong attack. EEG which has been ordered. An MRI/MRA of the neck to complete the vascular evaluation since he will be going for MRI later. Orthostatic blood pressures. The patient cardiac monitoring, echocardiography. Further evaluation and treatment depend on the results of the above. The patient has felt vaguely off balance and unwell since being on increasing doses of gabapentin, would reduce the dose to 600 mg 3 times a day and consider tapering and discontinuing. The patient was on this for back pain and the back pain has resolved." -BRAIN MRI AND NECK MRA DID NOT FIND PROBLEMS WITH THE POSTERIOR CIRCULATION OF THE BRAIN (Brain MRI: Several foci of increased signal within the periventricular and de ep white matter regions. This appearance is similar compared as compared to the prior study of 2016. No evidence for an acute ischemic process based on diffusion images. No abnormal postcontrast enhancement. The ventricular system is midline. The sella and parasellar regions are unremarkable. Internal auditory canals are symmetric. The 8mm aneurysm of the supraclinoid left internal carotid artery is unchanged. IMPRESSION: 1. Age-related change. 2. Stable 8 mm left supraclinoid aneurysm. This shows no change as compared to prior studies. 3. No evidence for abnormal postcontrast enhancement Neck MRA:06/21/2019: No significant stenosis, occlusion, or dissection identified within the carotid or vertebral arteries.) -Neurologist Dr. Knight was notified of the normal results and patient cleared for discharge from hospital on 06/21/2019 Elevated D-Dimer suspected left adrenal adenoma 1. No evidence for pulmonary embolus. 2. Slight increase in size in the 2.9 cm left adrenal gland nodule compared to the 2011 examination. This favors a benign adenoma but does not clearly represent an adenoma by CT criteria. Follow-up nonemergent adrenal MRI can be performed for further evaluation. 3. Mild emphysema. 4. Groundglass densities within the lungs posteriorly favor mild dependent change. -Patient reports he is aware of the gland issues. Chronic back pain -on gabapentin and will be on reduced doses of 600 mg daily with plans for taper as outpatient as per primary care doctor History of coronary artery disease History of Hypertension -on Lopressor 12.5 mg BID, statin and aspirin -patient prefers resumption of amlodipine as 5 mg daily for now because when he had orthostatics checked his blood pressure increased hypertensively for brief period of time History of hyperlipidemia -Continue statin History of status post abdominal aortic aneurysm repair, History of of cerebral aneurysm, History of left ICA stent placement. DVT prophylaxis: SCDs. Admission and Anticipated Discharge Date Admission Date: June 20, 2019 Subjective No distress. no headache. no shortness of breath. no headache. no dizziness. no shortness of breath. breathing on room air. no distress. no vomiting. no nausea Review of Systems Review of Systems: All systems reviewed & are unremarkable except as noted in HPI & below Physical Exam Constitutional: comfortable Eyes: PERRL, conjunctivae normal, anicteric sclerae EOM intact bilaterally ENMT: external ear and nose normal, oropharynx normal Neck: normal visual inspection Respiratory: normal respiratory effort, lungs clear to auscultation Cardiovascular: Rate/Rhythm: regular rate and regular rhythm Gastrointestinal (Abdomen): normal bowel sounds, soft, nontender, no hepatosplenomegaly Musculoskeletal: Head/Neck/Chest: normocephalic and head atraumatic Neurologic: PERRL, EOMI, accommodation nl, no face palsy, no dysarthria moves all extremities Psychiatric: A+Ox3, euthymic affect Results & Data ([facility]) Vital Signs (Past 12 Hours) Vital Signs Temp Pulse Pulse Resp BP Pulse Ox 06/21/19 11:46 98 06/21/19 08:00 63 06/21/19 07:43 36.5 C 65 18 124/78 99 06/21/19 03:59 36.6 C 64 16 107/69 98 (1) Syncope Syncope type: unspecified Qualified Code(s): R55 - Syncope and collapse
--- NOTE | 2019-06-21 13:46 | Discharge Summary ---
Date of Service June 21, 2019 Admission HPI Per Admitting Provider DATE OF ADMISSION: 06/20/2019 CHIEF COMPLAINT: Syncope. HISTORY OF PRESENT ILLNESS: This is a 68-year-old male with past medical history significant for hyperlipidemia, hypertension, lumbar radiculopathy, ins omnia, history of carotid artery aneurysm status post left ICA stent, history of AAA status post repair, peripheral artery disease, hypertension, CAD, history of GI bleed, who lives with his family, presents with episode of passing out at home. The patient says he was sitting on a couch, was trying to go to bed. When he stood up, he was very weak and felt tired and passed out. Does not know does not know how long he stayed, but his son-in-law said he passed out for about 20 seconds and the son-in-law thought the patient might be having seizures because his father had Parkinson's and has had seizure episodes.But the patient has not told that he was shaking his body and there is no biting of tongue and no bowel or bladder incontinence. When he woke up, he was confused for about 15 minutes and he initially was also very weak and tired and could not get up . Currently in the ER, his workup was unremarkable, hemodynamically stable except for his oxygen saturations were 88% on room air. The patient quit smoking few years back, but no wheezing on exam, on 2 liters he is saturating fine. Currently resting comfortable and hemodynamically stable. Troponin is negative, Ekg unremarkable. Denies any chest pain. No cough, no fever, no chills. Currently no headache. When he wears glasses, no blurred vision, no double vision. No runny nose, no sore throat. Appetite is okay. No difficulty swallowing. Sleeps okay. Otherwise ambulates okay. No nausea, no vomiting, no abdominal pain. Normal bowel and bladder movements. No swelling in the legs, no rash. ALLERGIES: No known drug allergies. PAST MEDICAL HISTORY: As mentioned above. PAST SURGICAL HISTORY: AAA repair, catheter placement internal carotid artery, colonoscopy, multiple EGDs, hemorrhoidectomy, injection of lumbar spine, right radial artery line, bilateral aortic catheter placement, bilateral femoral artery exposure, catheter placement brachiocephalic, catheter placement vertebral artery.AAA repair. MEDICATIONS: The patient is on amlodipine 10 mg p.o. daily, aspirin 81 mg p.o. daily, atorvastatin 40 mg p.o. at bedtime, gabapentin 800 mg p.o. t.i.d., metoprolol 12.5 mg p.o. b.i.d. FAMILY HISTORY: Significant for father had AAA, hypertension. Paternal grandfather had cancer. Maternal grandfather had heart disorder, sudden in early 60s. Maternal grandfather also has hypertension. SOCIAL HISTORY: , lives with his family. Quit smoking in 2014. Smoked quarter pack for 35 years. Alcohol, 1 a day. Drug use, seldom marijuana. REVIEW OF SYMPTOMS: As per HPI. Rest of the review of symptoms negative. Admission Exam Per Admitting Provider GENERAL: The patient is of moderate build, not in acute distress. VITAL SIGNS: Temperature 36.5, pulse 72, respiratory rate 13, blood pressure 112/63, oxygen 95% on 2 liters and 88% on room air. HEENT: No pallor, no icterus. Pupils equal, round, reactive to light. NECK: No JVD, no masses, no carotid bruits. CARDIOVASCULAR: S1, S2 heard. Regular rate and rhythm. No murmur, no gallop. RESPIRATORY SYSTEM: Normal AP diameter. No accessory muscle use. No wheezing, no crackles. ABDOMEN: Soft, bowel sounds present, nontender. No distention. CENTRAL NERVOUS SYSTEM: Cranial nerves II-XII grossly intact. Alert and oriented. Speech clear. Power 5/5 in all extremities. Coordination of movements normal. Nonfocal. EXTREMITIES: No edema, no erythema. Principal Diagnosis Syncope Elevated D-Dimer History of coronary artery disease History of Hypertension Discharge Exam Constitutional comfortable Eyes PERRL, conjunctivae normal, anicteric sclerae EOM intact bilaterally ENMT external ear and nose normal, oropharynx normal Neck normal visual inspection Respiratory normal respiratory effort, lungs clear to auscultation Cardiovascular Rate/Rhythm: regular rate and regular rhythm Gastrointestinal (Abdomen) normal bowel sounds, soft, nontender, no hepatosplenomegaly Musculoskeletal Head/Neck/Chest: normocephalic and head atraumatic Neurologic PERRL, EOMI, accommodation nl, no face palsy, no dysarthria moves all extremities Psychiatric A+Ox3, euthymic affect Discharge Data Allergies Allergy/AdvReac Type Severity Reaction Status Date / Time aspirin Allergy Intermediate PRONE TO Verified 06/20/19 01:30 BLEEDING Consultations 06/20/19 00:47 ED Decision to Admit Stat 06/20/19 03:18 Consult Case Management - Discharge Planning Routine 06/20/19 08:00 Consult Neurology Routine Ordered Studies 06/19/19 22:28 CT angio head wo/w Stat 06/20/19 09:03 CT angio chest PE protocol Stat 06/21/19 09:51 MR angio neck wo/w con Routine MR brain seizure wo/w con Routine Hospital Course (1) Syncope: -as per admission ED notes on 06/19/2019 "The patient is a 68 year old male who presents to the Emergency Room with complaints of syncope. The patient states that he was napping on his couch for about 10 minutes this evening when he got up to go to bed, began walking up the stairs, and suddenly felt uneasy while standing. He explains that he then began to experience nausea, one episode of vomiting, and lightheadedness followed by a syncopal episode. He states that he fell onto his knees and his fall was witnessed by his family. The patient's family reports seizure like activity during the episode and explain that his body was "clenched" and that he started making grunting noises. The episode lasted for about 40 seconds. The patient did not hit his head but he began experiencing a headache which he describes as "a rubber band around his head". Currently, he admits that his head feels better than it did when the episode happened but he still reports some pressure. The patient also experiences some lightheadedness when he sits up in bed. He also reports some numbness and tingling in his forehead. Family states that he felt numb all over his body after the episode. Of note, the patient admits that he was feeling fine earlier in the day today and that he did not eat anything unusual for dinner nor can he recall any known sickness exposure. He was given Zofran and fluids by EMS in route which he states somewhat helped his symptoms. Pt denies fevers, chills, diaphoresis, visual changes, neck pain, chest pain, breathing difficulties, abdominal pain, back pain, melena, hematochezia, urinary symptoms, lymphadenopathy, rash, or other complaints." -CT head 06/19/2019 1. No acute intracranial abnormality. 2. No significant stenosis or occlusion within the mechoopda of [place]. 3. A 3 mm aneurysm at the origin of the right posterior communicating artery. 4. Status post coiling of the 10 mm left internal carotid artery aneurysm -EEG on 06/20/2019 -as per neurology on 06/20/2019: normal awake and drowsy EEG. No focal slowing or epileptiform activity is recorded "Suspect hemodynamic event such as orthostatic hypotension. Query relationship of hypoxemia. Cannot entirely exclude a posterior circulation transient ischemic attack. The nausea could speak of the same but also could speak of bradycardia. I believe it would be reasonable to do an MRI of the brain with and without contrast due to the fact that there was some clinical question of seizure, albeit this sounds more like a Ford-Wong attack. EEG which has been ordered. An MRI/MRA of the neck to complete the vascular evaluation since he will be going for MRI later. Orthostatic blood pressures. The patient cardiac monitoring, echocardiography. Further evaluation and treatment depend on the results of the above. The patient has felt vaguely off balance and unwell since being on increasing doses of gabapentin, would reduce the dose to 600 mg 3 times a day and consider tapering and discontinuing. The patient was on this for back pain and the back pain has resolved." -BRAIN MRI AND NECK MRA DID NOT FIND PROBLEMS WITH THE POSTERIOR CIRCULATION OF THE BRAIN (Brain MRI: Several foci of increased signal within the periventricular and deep white matter regions. This appearance is similar compared as compared to the prior study of 2016. No evidence for an acute ischemic process based on diffusion images. No abnormal postcontrast enhancement. The ventricular system is midline. The sella and parasellar regions are unremarkable. Internal auditory canals are symmetric. The 8mm aneurysm of the supraclinoid left internal carotid artery is unchanged. IMPRESSION: 1. Age-related change. 2. Stable 8 mm left supraclinoid aneurysm. This shows no change as compared to prior studies. 3. No evidence for abnormal postcontrast enhancement Neck MRA:06/21/2019: No significant stenosis, occlusion, or dissection identified within the carotid or vertebral arteries.) -Neurologist Dr. Knight was notified of the normal results and patient cleared for discharge from hospital on 06/21/2019 Elevated D-Dimer suspected left adrenal adenoma 1. No evidence for pulmonary embolus. 2. Slight increase in size in the 2.9 cm left adrenal gland nodule compared to the 2011 examination. This favors a benign adenoma but does not clearly represent an adenoma by CT criteria. Follow-up nonemergent adrenal MRI can be performed for further evaluation. 3. Mild emphysema. 4. Groundglass densities within the lungs posteriorly favor mild dependent change. -Patient reports he is aware of the gland issues. Chronic back pain -on gabapentin and will be on reduced doses of 600 mg daily with plans for taper as outpatient as per primary care doctor History of coronary artery disease History of Hypertension -on Lopressor 12.5 mg BID, statin and aspirin -patient prefers resumption of amlodipine as 5 mg daily for now because when he had orthostatics checked his blood pressure increased hypertensively for brief period of time History of hyperlipidemia -Continue statin History of status post abdominal aortic aneurysm repair, History of of cerebral aneurysm, History of left ICA stent placement. DVT prophylaxis: SCDs. Total Time Total Time Spent Total Time Spent (In Minutes): 40 minutes Total Time Includes: Examination of the Patient, Discharge Planning, Medication Reconciliation and Communication With Other Providers Discharge Plan Discharge Items Patient Disposition: Home - Self-Care Reason For Visit: SYNCOPE Discharge Diagnosis: Syncope Elevated D-Dimer History of coronary artery disease History of Hypertension Condition on Discharge: Good Activity: Per Instructions section Non-emergency contact: Primary Care Provider and Neurologist Call non-emergency contact if: you have any medication questions Follow-up/Referrals: Mauro Watson DO [Primary Care Provider] - Diet: Heart Healthy [place] Attending Provider Instructions: 06/25/2019 7:30 AM Provider ANA WILSON [facility] 1:10 PM Provider Mauro Watson DO Department Family Practice [facility] 07/08/2019 11:45 AM Provider Ronal Gallegos MD Department Vascular Surg [facility] 08/03/2019 8:00 AM Provider Ritu Knight MD Department Neurology [facility] 01/25/2020 10:30 AM Provider Jacob Mcnally DO Department Cardiology, [facility] Provider Instructions: Syncope: -as per admission ED notes on 06/19/2019 "The patient is a 68 year old male who presents to the Emergency Room with complaints of syncope. The patient states that he was napping on his couch for about 10 minutes this evening when he got up to go to bed, began walking up the stairs, and suddenly felt uneasy while standing. He explains that he then began to experience nausea, one episode of vomiting, and lightheadedness followed by a syncopal episode. He states that he fell onto his knees and his fall was witnessed by his family. The patient's family reports seizure like activity during the episode and explain that his body was "clenched" and that he started making grunting noises. The episode lasted for about 40 seconds. The patient did not hit his head but he began experiencing a headache which he describes as "a rubber band around his head". Currently, he admits that his head feels better than it did when the episode happened but he still reports some pressure. The patient also experiences some lightheadedness when he sits up in bed. He also reports some numbness and tingling in his forehead. Family states that he felt numb all over his body after the episode. Of note, the patient admits that he was feeling fine earlier in the day today and that he did not eat anything unusual for dinner nor can he recall any known sickness exposure. He was given Zofran and fluids by EMS in route which he states somewhat helped his symptoms. Pt denies fevers, chills, diaphoresis, visual changes, neck pain, chest pain, breathing difficulties, abdominal pain, back pain, melena, hematochezia, urinary symptoms, lymphadenopathy, rash, or other complaints." -CT head 06/19/2019 1. No acute intracranial abnormality. 2. No significant stenosis or occlusion within the mechoopda of [place]. 3. A 3 mm aneurysm at the origin of the right posterior communicating artery. 4. Status post coiling of the 10 mm left internal carotid artery aneurysm -EEG on 06/20/2019 -as per neurology on 06/20/2019: normal awake and drowsy EEG. No focal slowing or epileptiform activity is recorded "Suspect hemodynamic event such as orthostatic hypotension. Query relationship of hypoxemia. Cannot entirely exclude a posterior circulation transient ischemic attack. The nausea could speak of the same but also could speak of bra dycardia. I believe it would be reasonable to do an MRI of the brain with and without contrast due to the fact that there was some clinical question of seizure, albeit this sounds more like a Ford-Wong attack. EEG which has been ordered. An MRI/MRA of the neck to complete the vascular evaluation since he will be going for MRI later. Orthostatic blood pressures. The patient cardiac monitoring, echocardiography. Further evaluation and treatment depend on the results of the above. The patient has felt vaguely off balance and unwell since being on increasing doses of gabapentin, would reduce the dose to 600 mg 3 times a day and consider tapering and discontinuing. The patient was on this for back pain and the back pain has resolved." -BRAIN MRI AND NECK MRA DID NOT FIND PROBLEMS WITH THE POSTERIOR CIRCULATION OF THE BRAIN (Brain MRI: Several foci of increased signal within the periventricular and deep white matter regions. This appearance is similar compared as compared to the prior study of 2016. No evidence for an acute ischemic process based on diffusion images. No abnormal postcontrast enhancement. The ventricular system is midline. The sella and parasellar regions are unremarkable. Internal auditory canals are symmetric. The 8mm aneurysm of the supraclinoid left internal carotid artery is unchanged. IMPRESSION: 1. Age-related change. 2. Stable 8 mm left supraclinoid aneurysm. This shows no change as compared to prior studies. 3. No evidence for abnormal postcontrast enhancement Neck MRA:06/21/2019: No significant stenosis, occlusion, or dissection identified within the carotid or vertebral arteries.) -Neurologist Dr. Knight was notified of the normal results and patient cleared for discharge from hospital on 06/21/2019 Elevated D-Dimer suspected left adrenal adenoma 1. No evidence for pulmonary embolus. 2. Slight increase in size in the 2.9 cm left adrenal gland nodule compared to the 2011 examination. This favors a benign adenoma but does not clearly represent an adenoma by CT criteria. Follow-up nonemergent adrenal MRI can be performed for further evaluation. 3. Mild emphysema. 4. Groundglass densities within the lungs posteriorly favor mild dependent change. -Patient reports he is aware of the gland issues. Chronic back pain -on gabapentin and will be on reduced doses of 600 mg daily with plans for taper as outpatient as per primary care doctor History of coronary artery disease History of Hypertension -on Lopressor 12.5 mg BID, statin and aspirin -patient prefers resumption of amlodipine as 5 mg daily for now because when he had orthostatics checked his blood pressure increased hypertensively for brief period of time History of hyperlipidemia -Continue statin History of status post abdominal aortic aneurysm repair, History of of cerebral aneurysm, History of left ICA stent placement. Pending Studies at Discharge: No Stand-Alone Forms: [facility], Smoking Cessation Medications and DC Order Prescriptions: New gabapentin 600 mg Tablet 600 mg PO TID 10 Days Qty: 30 RF: 0 amlodipine 5 mg tablet 5 mg PO DAILY 30 Days Qty: 30 RF: 0 Continued metoprolol tartrate 25 mg tablet 12.5 mg PO BID RF: 0 atorvastatin 40 mg Tablet 40 mg PO HS RF: 0 aspirin 81 mg Tablet,Delayed Release (Dr/Ec) 81 mg PO DAILY RF: 0 Discontinued gabapentin 800 mg tablet 800 mg PO TID RF: 0 amlodipine 10 mg tablet 10 mg PO DAILY RF: 0 Discharge Orders: Discharge Order (Routine); Ordered 06/21/19 Ordered By: Ozzy Shaffer Admission Data Admit Date/Time: 06/20/19 02:19 Attending Provider: Ozzy Shaffer Admit Provider: Dayton Moreira Primary Care Provider: Mauro Watson Other Providers: Dayton Moreira ; Ritu Oliveira ; Margarito Otto ; Ritu Knight ; Omari Damon
--- NOTE | 2019-06-21 16:51 | Electrocardiogram Report ---
Test Reason : Blood Pressure : / mmHG Vent. Rate : 070 BPM Atrial Rate : 070 BPM P-R Int : 134 ms QRS Dur : 072 ms QT Int : 390 ms P-R-T Axes : 065 012 028 degrees QTc Int : 421 ms Normal sinus rhythm Normal ECG When compared with ECG of 19-JUN-2019 22:25, No significant change was found Confirmed by Ky Lundberg ([id number]) on 06/21/2019 4:51:18 PM Referred By: REFERRED SELF Confirmed By:Cameron Lundberg
== END 2019-06-21 14:14 | disposition home or self-care (01) ==
LOC: 2N 21:45 → ED 21:45 → 2N 06-20 02:50

== ENCOUNTER 2022-05-07 16:38 | Observation (INO) ==
[2022-05-07] MEDS ORDERED: ONDANSETRON INJ 2 MG/ML 2 ML VIAL IV STA (17:15)
[2022-05-07] MEDS ORDERED: SODIUM CHLORIDE 0.9% 500 ML IV STA (17:15)
[2022-05-07] MEDS ORDERED: MoRPHine SULFATE 4 MG/ML 1 ML CARP\\VIAL IV STA (17:15)
--- NOTE | 2022-05-07 17:18 | Emergency Department Note ---
Impression & Plan Abdominal pain ADMIT ED Provider Note HPI: The patient is a 71-year-old gentleman who presents emergency department for evaluation of abdominal pain after he had a colonoscopy done earlier today. Patient states he was at [facility] and had colonoscopy performed by Dr. Fernandez. Patient was told that he had multiple polyps that required removal and that one of them was "deep". As he was in the holding area there he continued to have abdominal pain and therefore was sent to the ED by ambulance for further assessment over concern for a possible perforated bowel. On arrival here to the ED the patient is hemodynamically stable, he is in no acute distress on my initial assessment, he is saturating well on room air on arrival. ROS: - Per HPI *Outpatient medications and allergy history reviewed. *Pertinent external medical records reviewed. PE: General: Alert HEENT: Normocephalic, trachea midline Eyes: Extraocular eye movement is intact, no scleral erythema Pulmonary: Clear to auscultation bilaterally, no wheezing Cardio: Regular rate and rhythm GI: Abdomen is soft, moderate tenderness diffusely to palpation without guarding or rigidity : No suprapubic tenderness MSK: No evidence of trauma or malformation of the extremities, no edema Skin: No evidence of rash Neuro: Alert, no focal deficits Psychiatric: Cooperative desk monitor: - An order was placed for continuous cardiac monitoring - Patient was noted to be in sinus rhythm with a rate of 80 Interventions provided in ED: -IV morphine, IV Zofran, IV Zosyn Medical Decision Making: Patient presented to the emergency department with some abdominal discomfort after colonoscopy today at [facility]. CT imaging of the abdomen pelvis was obtained that shows some inflammatory changes in the cecum without any evidence of free air. Patient does have a leukocytosis. Blood cultures were ordered in the ED, case was discussed with gastroenterology, Dr. Fernandez, who performed the patient's colonoscopy, recommends initiation of Zosyn and admission observation for pain management tonight and GI consultation. Patient is in agreement to this plan, case was discussed with the on-call hospitalist for [facility], and the patient was admitted in stable condition for further care. Diagnosis: 1. Abdominal pain status post colonoscopy, acute 2. Leukocytosis 3. Cecal inflammation on CT imaging Disposition: Admission Rishi Tan DO Emergency Medicine Past Med/Surg History Medical History (Updated 05/07/22 @ 23:34 by Rishi Tan DO) Aortic aneurysm Cerebral aneurysm Vertigo Surgical History No pertinent past surgical history Social History Smoking Status: Former smoker Tobacco Type: Cigarettes Second Hand Exposure: Yes; Hx Alcohol Use: Yes Alcohol type: hard liquor Hx Substance Use: No Preferred Language: Kinyarwanda Communication Ability: Effective Beliefs That Will Affect Care: None marital status: Current Living Situation: Spouse and Family Feels Safe at Home: Yes Assistive Devices: None Allergies Allergies Allergy/AdvReac Type Severity Reaction Status Date / Time aspirin AdvReac Intermediate HIGH Verified 05/07/22 19:19 DOSES---PRONE TO BLEEDING Home Meds Home Medications Medication Instructions Recorded Confirmed aspirin 81 mg tablet,delayed 81 mg PO DAILY 06/20/19 05/07/22 release atorvastatin 40 mg tablet 40 mg PO HS 06/20/19 05/07/22 metoprolol tartrate 25 mg tablet 12.5 mg PO BID 06/20/19 05/07/22 amlodipine 5 mg tablet 5 mg PO DAILY 09/14/19 05/07/22 gabapentin 600 mg tablet 600 mg PO TID 05/07/22 05/07/22 Results & Data (ED) Vital Signs Vital Signs - 24 hr 05/07/22 16:46 05/07/22 16:46 05/07/22 17:31 Temperature 36.7 C Temperature Source Oral Pulse Rate 84 Pulse Rate [Apical] 84 Pulse Rate from SpO2 Sensor Pulse Rhythm Regular Pulse Rhythm [Apical] Regular Pulse Strength Normal Pulse Strength [Apical] Normal Respiratory Rate 21 21 Respiratory Effort / Characteristics Non-Labored Non-Labored Respiratory Depth Normal Normal Respiratory Pattern Regular Regular Blood Pressure 119/63 Blood Pressure [Left Arm] 119/63 Blood Pressure Mean 81 Blood Pressure Mean [Left Arm] 81 Pulse Oximetry 95 95 93 Oxygen Delivery Method Room Air Room Air Room Air Sepsis Recent Fever Within 48 Hours No Sepsis New/Unexplained Change in Mental Status No Sepsis Action Taken by Nursing No Action Required 05/07/22 16:42 05/07/22 19:15 05/07/22 19:40 Temperature Temperature Source Pulse Rate 85 82 89 Pulse Rate [Apical] Pulse Rate from SpO2 Sensor 95 H Pulse Rhythm Pulse Rhythm [Apical] Pulse Strength Pulse Strength [Apical] Respiratory Rate 22 18 29 H Respiratory Effort / Characteristics Respiratory Depth Respiratory Pattern Blood Pressure 119/63 147/86 H Blood Pressure [Left Arm] Blood Pressure Mean 81 106 Blood Pressure Mean [Left Arm] Pulse Oximetry 95 97 95 Oxygen Delivery Method Room Air Room Air Sepsis Recent Fever Within 48 Hours Sepsis New/Unexplained Change in Mental Status Sepsis Action Taken by Nursing 05/07/22 19:50 05/07/22 20:00 05/07/22 20:00 Temperature Temperature Source Pulse Rate 94 H 88 Pulse Rate [Apical] Pulse Rate from SpO2 Sensor 92 H 88 Pulse Rhythm Pulse Rhythm [Apical] Pulse Strength Pulse Strength [Apical] Respiratory Rate 19 22 Respiratory Effort / Characteristics Respiratory Depth Respiratory Pattern Blood Pressure 146/81 H Blood Pressure [Left Arm] Blood Pressure Mean 102 Blood Pressure Mean [Left Arm] Pulse Oximetry 95 93 Oxygen Delivery Method Sepsis Recent Fever Within 48 Hours Sepsis New/Unexplained Change in Mental Status Sepsis Action Taken by Nursing 05/07/22 20:10 05/07/22 20:20 Temperature Temperature Source Pulse Rate 88 86 Pulse Rate [Apical] Pulse Rate from SpO2 Sensor 88 85 Pulse Rhythm Pulse Rhythm [Apical] Pulse Strength Pulse Strength [Apical] Respiratory Rate 25 H 17 Respiratory Effort / Characteristics Respiratory Depth Respiratory Pattern Blood Pressure Blood Pressure [Left Arm] Blood Pressure Mean Blood Pressure Mean [Left Arm] Pulse Oximetry 96 98 Oxygen Delivery Method Sepsis Recent Fever Within 48 Hours Sepsis New/Unexplained Change in Mental Status Sepsis Action Taken by Nursing Laboratory Data 05/07/22 17:34 05/07/22 17:34 Lab Results 05/07/22 05/07/22 05/07/22 Range/Units 17:34 17:34 19:20 WBC 14.44 H (4.8-10.8) K/ul RBC 4.29 L (4.63-6.08) M/uL Hgb 13.6 L (14.0-18.0) g/dl Hct 39.4 L (40.1-51.0) % MCV 91.8 (80.0-100.0) fL MCH 31.7 (25.0-34.0) pg MCHC 34.5 (32.0-36.0) g/dL RDW Std Deviation 45.1 (36.4-46.3) fL RDW Coeff of Annie 13.4 (11.5-14.5) % Plt Count 246 (130-400) K/uL MPV 9.6 (9.4-12.4) fL Immature Gran % (Auto) 0.4 % Neut % (Auto) 81.7 % Lymph % (Auto) 11.2 % [place] % (Auto) 6.4 % Eos % (Auto) 0.1 % Baso % (Auto) 0.2 % Neut # (Auto) 11.79 H (1.4-6.5) K/uL Lymph # (Auto) 1.62 (1.2-3.4) K/uL [place] # (Auto) 0.93 H (0.24-0.82) K/uL Eos # (Auto) 0.01 (0-0.50) K/uL Baso # (Auto) 0.03 (0-0.2) K/uL Immature Gran # (Auto) 0.06 H (0.00-0.02) K/uL Sodium 140 (136-145) mmol/L Potassium 3.6 (3.5-5.1) mmol/L Chloride 108 H (98-107) mmol/L Carbon Dioxide 22 (21-32) mmol/L Anion Gap 10 (3-11) BUN 15 (6-23) mg/dl Creatinine 0.99 (0.6-1.4) mg/dl Est Cr Clr Drug Dosing 65.3 ml/min Est GFR ( Amer) 87.8 ml/min Est GFR (Non-Af Amer) 75.8 ml/min BUN/Creatinine Ratio 15.2 (10-20) Glucose 85 (70-99(Fasting)) mg/dl Calcium 9.3 (8.5-10.1) mg/dl Total Bilirubin 0.9 (0.2-1.0) mg/dl AST 18 (13-39) U/L ALT 18 (7-52) U/L Alkaline Phosphatase 66 (34-104) U/L Total Protein 6.7 (6.0-8.3) gm/dl Albumin 4.0 (3.4-5.0) gm/dl Globulin 2.7 (2.5-4.0) gm/dl Albumin/Globulin Ratio 1.5 (0.9-2) Lipase 27 (11-82) U/L SARS-CoV-2, RNA, NAAT NEGATIVE (NEGATIVE) Administered Medications Atorvastatin Calcium (Atorvastatin 40 Mg Tab) 40 mg PO HS CARLI Stop: 06/06/22 22:00 Last Admin: 05/07/22 22:39 Dose: 40 mg Documented By: AMAN Gabapentin (Gabapentin 600 Mg Tab) 600 mg PO TID CARLI Stop: 06/06/22 22:00 Last Admin: 05/07/22 22:39 Dose: 600 mg Documented By: AMAN Lactated Ringer's (Lr) 1,000 mls @ 75 mls/hr IV .[id number] CARLI Stop: 06/06/22 19:59 Last Infusion: 05/07/22 22:46 Dose: 75 mls/hr Documented By: Admin: 05/07/22 19:52 Dose: 75 mls/hr Documented By: AMAN Piperacillin Sod/Tazobactam (Sod 3.375 gm/ Dextrose) 115 mls @ 28.75 mls/hr IV Q8H [facility]; Protocol Stop: 05/17/22 22:59 Last Admin: 05/07/22 22:44 Dose: 28.8 mls/hr Documented By: AMAN Metoprolol Tartrate (Metoprolol Tartrate 25 Mg Tab) 12.5 mg PO BID CARLI Stop: 06/06/22 22:00 Last Admin: 05/07/22 22:40 Dose: 12.5 mg Documented By: AMAN Discontinued Medications Sodium Chloride (Nss) 500 mls @ 999 mls/hr IV .Q31M STA Stop: 05/07/22 17:45 Last Infusion: 05/07/22 18:00 Dose: 0 mls/hr Documented By: Admin: 05/07/22 17:24 Dose: 999 mls/hr Documented By: SUN Piperacillin Sod/Tazobactam Sod (Zosyn) 4.5 gm in 120 mls @ 240 mls/hr IV NOW ONE Stop: 05/07/22 18:14 Last Admin: 05/07/22 18:17 Dose: Not Given Documented By: SUN Piperacillin Sod/Tazobactam Sod (Zosyn) 4.5 gm in 120 mls @ 240 mls/hr IV NOW ONE Stop: 05/07/22 18:21 Last Infusion: 05/07/22 18:52 Dose: 0 mls/hr Documented By: Admin: 05/07/22 18:22 Dose: 240 mls/hr Documented By: SUN Ioversol (Optiray 350 100ml) 85 ml IV ONCE ONE Stop: 05/07/22 19:02 Last Admin: 05/07/22 19:01 Dose: 85 ml Documented By: ALEIDA Morphine Sulfate (Morphine Sulfate 4 Mg/Ml 1 Ml Carp\\Vial) 4 mg IV NOW STA Stop: 05/07/22 17:16 Last Admin: 05/07/22 17:23 Dose: 4 mg Documented By: SUN Ondansetron HCl (Ondansetron Inj 2 Mg/Ml 2 Ml Vial) 4 mg IV NOW STA Stop: 05/07/22 17:16 Last Admin: 05/07/22 17:23 Dose: 4 mg Documented By: SUN Imaging Data Radiologist's Impression: Abdomen/Pelvis CT 05/07/22 17:[address] WITH IV CONTRAST CT DOSE: 407.49 mGy.cm HISTORY: Right-sided abd pain s/p colonoscopy today TECHNIQUE: Multiaxial CT images of the abdomen and pelvis were performed following the use of intravenous contrast. A dose lowering technique was utilized adhering to the principles of ALARA. COMPARISON STUDY: Abdomen CTA 09/14/2019. FINDINGS: Mild bibasilar subsegmental atelectasis. No pneumoperitoneum. No pneumatosis. No acute fractures identified. Mild hepatic steatosis. The gallbladder, pancreas, spleen, and right adrenal gland unremarkable. A 2.8 cm heterogeneous left adrenal gland nodule again noted. This is similar to the prior study. Punctate calcification within the left renal sinus appears to be vascular. Subcentimeter hypodense lesions within the kidneys are technically too small to characterize but statistically represent cysts. No ureteral stones. No hydronephrosis. The main portal vein is patent. No retroperitoneal lymphadenopathy. An aortobiiliac stent graft repair again noted. The aneurysm sac remains unchanged in size measuring up to 3.6 cm in diameter. No pelvic lymphadenopathy or pelvic free fluid. The bladder is unremarkable. The prostate gland is mildly enlarged. Multiple colonic diverticula. No evidence for acute diverticulitis. No evidence for bowel obstruction. Fluid-filled colon. Minimal pericecal inflammatory change at the level of the ileocecal valve. There is also a surgical clip noted within the lumen of the cecum at this location. There is no significant bowel wall thickening. No pericecal fluid collections or extraluminal gas to suggest a perforation. Normal appendix. IMPRESSION: 1. Minimal pericecal inflammatory change at the level of the ileocecal valve. There is also a surgical clip noted within the lumen of the cecum at this location. Therefore, this may be secondary to the recent post colonoscopy changes. There is no significant bowel wall thickening. No pericecal fluid colle ctions or extraluminal gas to suggest a perforation. 2. No significant change in the 2.8 cm left adrenal gland nodule. 3. Hepatic steatosis. 4. Additional findings as described above. ACT 112: Negative or not required by law. Electronically signed by: Rodriguez Marie M.D. 05/07/2022 7:15 PM Discharge Plan Visit Data Chief Complaint: GI Assessment ED Provider: Rishi Tan Discharge Problem: Abdominal pain Patient Disposition: Admitted As Inpatient Discharge Instructions Interventions: ED Discharge Assessment Last Done: 05/07/22 22:01
[2022-05-07] MEDS ORDERED: PIPERACILLIN/TAZOBACTAM 4.5 GM/120 ML BAG IV ONE ×2 (17:45→17:52)
[2022-05-07 17:56] LABS: Basophils # (auto) 0.03 K/uL (0-0.2); Basophils % (auto) 0.2 %; Eosinophils # (auto) 0.01 K/uL (0-0.50); Eosinophils % (auto) 0.1 %; Hematocrit (blood only) 39.4 % (40.1-51.0); Hemoglobin 13.6 g/dl (14.0-18.0); Immature Granulocytes # (auto) 0.06 K/uL (0.00-0.02); Immature Granulocytes % (auto) 0.4 %; Lymphocytes # (auto) 1.62 K/uL (1.2-3.4); Lymphocytes % (auto) 11.2 %; Mean Corpuscular Hemoglobin 31.7 pg (25.0-34.0); Mean Corpuscular Hgb Conc 34.5 g/dL (32.0-36.0); Mean Corpuscular Volume 91.8 fL (80.0-100.0); Mean Platelet Volume 9.6 fL (9.4-12.4); Monocytes # (auto) 0.93 K/uL (0.24-0.82); Monocytes % (auto) 6.4 %; Neutrophils # (auto) 11.79 K/uL (1.4-6.5); Neutrophils % (auto) 81.7 %; Platelet Count 246 K/uL (130-400); RDW Coefficient of Variation 13.4 % (11.5-14.5); RDW Standard Deviation 45.1 fL (36.4-46.3); Red Blood Count 4.29 M/uL (4.63-6.08); White Blood Count 14.44 K/ul (4.8-10.8)
[2022-05-07 18:29] LABS: Albumin Globulin Ratio 1.5 (0.9-2); BUN Creatinine Ratio 15.2 (10-20); Bilirubin,Total 0.9 mg/dl (0.2-1.0); Calcium 9.3 mg/dl (8.5-10.1); Creatinine Clr Calc Pharmacy 65.3 ml/min; Est GFR (African American) 87.8 ml/min; Est GFR (Non-African American) 75.8 ml/min; Globulin 2.7 gm/dl (2.5-4.0); Potassium 3.6 mmol/L (3.5-5.1); Total Protein 6.7 gm/dl (6.0-8.3)
[2022-05-07] MEDS ORDERED: OPTIRAY 350 100ml IV ONE (19:01)
--- NOTE | 2022-05-07 19:18 | CT Scan Report ---
ABDOMEN AND PELVIS CT WITH IV CONTRAST CT DOSE: 407.49 mGy.cm HISTORY: Right-sided abd pain s/p colonoscopy today TECHNIQUE: Multiaxial CT images of the abdomen and pelvis were performed following the use of intrave nous contrast. A dose lowering technique was utilized adhering to the principles of ALARA. COMPARISON STUDY: Abdomen CTA 09/14/2019. FINDINGS: Mild bibasilar subsegmental atelectasis. No pneumoperitoneum. No pneumatosis. No acute frac tures identified. Mild hepatic steatosis. The gallbladder, pancreas, spleen, and right adrenal gland unremarkable. A 2.8 cm heterogeneous left adrenal gland nodule again noted. This is similar to the pr ior study. Punctate calcification within the left renal sinus appears to be vascular. Subcentimeter h ypodense lesions within the kidneys are technically too small to characterize but statistically repre sent cysts. No ureteral stones. No hydronephrosis. The main portal vein is patent. No retroperitoneal lymphadenopathy. An aortobiiliac stent graft repair again noted. The aneurysm sac remains unchanged in size measuring up to 3.6 cm in diameter. No pelvic lymphadenopathy or pelvic free fluid. The bladd er is unremarkable. The prostate gland is mildly enlarged. Multiple colonic diverticula. No evidence for acute diverticulitis. No evidence for bowel obstruction. Fluid-filled colon. Minimal pericecal in flammatory change at the level of the ileocecal valve. There is also a surgical clip noted within the lumen of the cecum at this location. There is no significant bowel wall thickening. No pericecal flu id collections or extraluminal gas to suggest a perforation. Normal appendix. IMPRESSION: 1. Minimal pericecal inflammatory change at the level of the ileocecal valve. There is also a surgica l clip noted within the lumen of the cecum at this location. Therefore, this may be secondary to the recent post colonoscopy changes. There is no significant bowel wall thickening. No pericecal fluid co llections or extraluminal gas to suggest a perforation. 2. No significant change in the 2.8 cm left adrenal gland nodule. 3. Hepatic steatosis. 4. Additional findings as described above. ACT 112: Negative or not required by law. Electronically signed by: Rodriguez Marie M.D. 05/07/2022 7:15 PM
--- NOTE | 2022-05-07 19:48 | Consultation ---
Date of Consultation May 07, 2022 History of Present Illness History of Present Illness 71 yo M with PMH sig diffuse ASCVD, AAA, s/p colonoscopy this morning with removal of mult polyps, including 2 cm cecal LST removed piecemeal by underwater EMR. He had RLQ pain post procedure, and was referred to ER. At present, he has tenderness when he presses on RLQ. Otherwise feels ok. PE: Resting comfortable. He can sit up without wincing. Abd: soft, mild distended and slightly tympanic. + BS. He has tenderness with mod palpation and vol guarding in RLQ. He has tenderness with mod guarding and LLQ. Labs sig WBC [address] images reviewed. A/P: Post-polypectomy syndrome - Clears, abx, serial abd exams. Allergies Allergy/AdvReac Type Severity Reaction Status Date / Time aspirin AdvReac Intermediate HIGH Verified 05/07/22 19:19 DOSES---PRONE TO BLEEDING Home Medications Medication Instructions Recorded Confirmed Type aspirin 81 mg tablet,delayed 81 mg PO DAILY 06/20/19 05/07/22 History release atorvastatin 40 mg tablet 40 mg PO HS 06/20/19 05/07/22 History metoprolol tartrate 25 mg tablet 12.5 mg PO BID 06/20/19 05/07/22 History amlodipine 5 mg tablet 5 mg PO DAILY 09/14/19 05/07/22 History gabapentin 600 mg tablet 600 mg PO TID 05/07/22 05/07/22 History Patient History Medical History (Updated 03/14/22 @ 00:08 by Fernando Raza) Aortic aneurysm Cerebral aneurysm Vertigo Surgical History No pertinent past surgical history Social History Smoking Status: Former smoker Tobacco Type: Cigarettes Second Hand Exposure: Yes; Hx Alcohol Use: Yes Alcohol type: hard liquor Hx Substance Use: No Preferred Language: Welsh Communication Ability: Effective Beliefs That Will Affect Care: None marital status: Current Living Situation: Spouse and Family Feels Safe at Home: Yes Assistive Devices: None Results & Data ([facility]) Vital Signs (Past 12 Hours) Vital Signs Temp Pulse Pulse Resp BP BP Pulse Ox 05/07/22 19:15 82 18 147/86 H 97 05/07/22 16:42 85 22 119/63 95 05/07/22 17:31 93 05/07/22 16:46 84 21 119/63 95 05/07/22 16:46 36.7 C 84 21 119/63 95 O2 Del Method 05/07/22 19:15 Room Air 05/07/22 16:42 Room Air 05/07/22 17:31 Room Air 05/07/22 16:46 Room Air 05/07/22 16:46 Room Air
[2022-05-07] MEDS: LACTATED RINGER'S 1,000 ML IV SCH (19:52)
[2022-05-07] MEDS ORDERED: ACETAMINOPHEN 325 MG TAB PO PRN (22:01)
[2022-05-07] MEDS ORDERED: ATORVASTATIN 40 MG TAB PO SCH (22:01)
[2022-05-07] MEDS ORDERED: HYDROmorphone INJ 0.5 MG/0.5 ML SYR IV PRN (22:01)
[2022-05-07] MEDS ORDERED: NITROGLYCERIN SL 0.4 MG/TAB TAB SL PRN (22:01)
[2022-05-07] MEDS ORDERED: ONDANSETRON INJ 2 MG/ML 2 ML VIAL IV PRN (22:01)
[2022-05-07] MEDS: GABAPENTIN 600 MG TAB PO SCH (22:39)
[2022-05-07] MEDS: METOPROLOL TARTRATE 25 MG TAB PO SCH (22:40)
[2022-05-07] MEDS: PIPERACILLIN/TAZOBACTAM 3.375 GM in DEXTROSE 5% 100 ML IV SCH (22:44)
--- NOTE | 2022-05-07 22:46 | History and Physical Report ---
DATE OF ADMISSION: 05/07/2022 CHIEF COMPLAINT: Abdominal pain post-colonoscopy. HISTORY OF PRESENT ILLNESS: A 71-year-old male with past medical history significant for benign neoplasm of adrenal gland, hyperlipidemia, hypertriglyceridemia, abdominal aortic aneurysm, cerebral aneurysm, left carotid aneurysm, bilateral carotid artery disease, hypertension, CAD, CKD stage II, history of colon polyps, status post colonoscopy and polypectomy. After colonoscopy, he started having abdominal pain in the right lower quadrant, 5/10 in severity so came here. Received morphine, the pain is improved. He has only tenderness now. . Denies any bloody bowel movement. Denies any nausea. No chest pain, no shortness of breath. No cough. He has some postnasal drip. He has dry eyes and gets blurred visions . Says after colonoscopy, he had a headache, but that is improved now. Currently, resting comfortably and hemodynamically stable. ALLERGIES: ASPIRIN, HIGH DOSE CAUSES BLEEDING. PAST MEDICAL HISTORY: As mentioned above. PAST SURGICAL HISTORY: Colonoscopy, multiple EGDs, internal hemorrhoidectomy, lumbosacral injection, bilateral femoral artery exposure, cataract surgery. MEDICATIONS: The patient is on amlodipine 5 mg p.o. daily, aspirin 81 mg p.o. daily, atorvastatin 40 mg p.o. at bedtime, gabapentin 600 mg p.o. daily, metoprolol tartrate 12.5 mg p.o. b.i.d. FAMILY HISTORY: Significant for father has abdominal aortic aneurysm, alcoholism. Mother has glaucoma, mental disorder. Father has hypertension. Uncle has lung cancer. SOCIAL HISTORY: . Quit smoking in 2004, smoked 1.5 packs a day for 35 years. Alcohol, mostly one a day. Drugs, marijuana daily as per Epic. REVIEW OF SYSTEMS: As per HPI. Rest of review of systems is negative. PHYSICAL EXAMINATION: GENERAL: The patient is of moderate build, not in acute distress. VITAL SIGNS: Temperature 36.7, pulse 86, respiratory rate 17, blood pressure 146/81, oxygen 98% on room air. HEENT: Pupils equal, round and reactive to light. Oral mucosa moist. NECK: No JVD, no neck masses. CARDIOVASCULAR: S1 and S2 heard. Regular rate and rhythm. No murmur, no gallop. RESPIRATORY SYSTEM: Normal AP diameter. No accessory muscles use. No wheezing, crackles. ABDOMEN: Soft, bowel sounds present. Mild tenderness in the right lower quadrant. Mild guarding, no distention. CENTRAL NERVOUS SYSTEM: Cranial nerves II through XII are grossly intact, nonfocal. EXTREMITIES: No edema, no erythema. LABORATORY DATA: WBC 14.4, hemoglobin 13.6, hematocrit 39.4, platelets 246. Sodium 140, potassium 3.6, chloride 108, bicarbonate 22, BUN 15, creatinine 0.9, serum glucose 85, calcium 9.3, total bilirubin 0.9, AST 18, ALT 18, alkaline phosphatase 66, lipase 27. SARS-CoV-2 rapid test negative. IMAGING DATA: CT abdomen and pelvis with IV contrast: Minimal pericecal inflammatory changes at level of the ileocecal wall, status post surgical clip noted within the lumen of the cecum at this junction. Mostly secondary to recent post-colonoscopy changes. No significant bowel wall thickening. No pericecal fluid collections or extraluminal gas to suggest a perforation, no significant change in 2.8 cm left adrenal gland nodule, hepatic steatosis. EKG: Normal sinus rhythm at a rate of 82, no acute ST changes seen. ASSESSMENT AND PLAN: This is a 71-year-old male who presents with abdominal pain post-colonoscopy. 1. Abdominal pain, post-colonoscopy, possibly post-polypectomy syndrome as per GI. CT scan of the pelvis, no extraluminal gas to suggest a perforation. We will monitor in the hospital. Liquid diet, IV Zosyn. We will hold aspirin until he is abdomial pain resolves.Surgical and GI consult. Monitor in the [employer]. 2. History of nonobstructive coronary artery disease. We will hold aspirin until his abdominal pain is improved. Continue his statin and metoprolol. 3. Hypertension: Continue amlodipine and metoprolol. 4. Hyperlipidemia: Continue statin. 5. History of abdominal aortic aneurysm and cerebral aneurysm. Continue follow up as outpatient. 6. Chronic kidney disease, stage II. We will follow the labs. 7. Deep venous thrombosis prophylaxis: Sequential compression devices for now. DISPOSITION: Monitor in the [employer]. PT/OT prior to discharge. Social service to help with discharge planning. Job ID: [id number] [facility]
[2022-05-08 04:49] LABS: Basophils # (auto) 0.02 K/uL (0-0.2); Basophils % (auto) 0.3 %; Eosinophils # (auto) 0.02 K/uL (0-0.50); Eosinophils % (auto) 0.3 %; Hematocrit (blood only) 35.7 % (40.1-51.0); Hemoglobin 12.3 g/dl (14.0-18.0); Immature Granulocytes # (auto) 0.04 K/uL (0.00-0.02); Immature Granulocytes % (auto) 0.5 %; Lymphocytes # (auto) 1.82 K/uL (1.2-3.4); Mean Corpuscular Hemoglobin 31.9 pg (25.0-34.0); Mean Corpuscular Hgb Conc 34.5 g/dL (32.0-36.0); Mean Corpuscular Volume 92.5 fL (80.0-100.0); Mean Platelet Volume 9.7 fL (9.4-12.4); Monocytes # (auto) 0.59 K/uL (0.24-0.82); Monocytes % (auto) 7.4 %; Neutrophils # (auto) 5.43 K/uL (1.4-6.5); Neutrophils % (auto) 68.5 %; Platelet Count 218 K/uL (130-400); RDW Coefficient of Variation 13.5 % (11.5-14.5); RDW Standard Deviation 46.1 fL (36.4-46.3); Red Blood Count 3.86 M/uL (4.63-6.08); White Blood Count 7.92 K/ul (4.8-10.8)
[2022-05-08 05:10] LABS: Calcium 9.2 mg/dl (8.5-10.1); Creatinine Clr Calc Pharmacy 58.7 ml/min; Est GFR (African American) 77.3 ml/min; Est GFR (Non-African American) 66.7 ml/min
[2022-05-08] MEDS: PIPERACILLIN/TAZOBACTAM 3.375 GM in DEXTROSE 5% 100 ML IV SCH (08:08)
--- NOTE | 2022-05-08 08:11 | Electrocardiogram Report ---
Test Reason : Blood Pressure : / mmHG Vent. Rate : 082 BPM Atrial Rate : 082 BPM P-R Int : 134 ms QRS Dur : 084 ms QT Int : 398 ms P-R-T Axes : 050 -11 023 degrees QTc Int : 464 ms Normal sinus rhythm Normal ECG When compared with ECG of 27-FEB-2022 17:10, QT has lengthened Confirmed by Mp Bray ([id number]) on 05/08/2022 8:11:27 AM Referred By: REFERRED SELF Confirmed By:Mp Bray
[2022-05-08] MEDS: METOPROLOL TARTRATE 25 MG TAB PO SCH (08:26)
[2022-05-08] MEDS: GABAPENTIN 600 MG TAB PO SCH ×2 (08:26→14:17)
[2022-05-08] MEDS ORDERED: amLODIPine BESYLATE 5 MG TAB PO SCH (09:00)
[2022-05-08] MEDS: LACTATED RINGER'S 1,000 ML IV SCH (09:15)
--- NOTE | 2022-05-08 11:22 | Surgery Consultation ---
Date of Consultation May 08, 2022 Assessment & Plan (1) Abdominal pain: 71 year-old male who developed abdominal pain post colonoscopy and polypectomy. CT scan showing mild inflammatory change at the ileocecal valve without perforation or abscess. Leukocytosis of 14k now normal. GI has been consulted, recommending serial abdominal examination and clear liquids. Afebrile, no abdominal pain today. No flatus as of yet this morning. Plan: No surgical intervention required at this time Would recommend OOB and ambulation to help increase GI motility Advance diet per GI Continue medical management Discussed with Dr. Soares who agrees with above. See addendum for further recommendations/plan. History of Present Illness Reason for Consultation: Abdominal pain post colonoscopy Requesting Physician: Dr. Harish MD Attending Physician: Sanchez Pichardo MD History of Present Illness Mp is a 71 year-old male who underwent colonoscopy on 05/07/2022 at [facility] by Dr. Fernandez with removal of multiple polyps. He presented to ED with abdominal pain mostly in the right lower abdomen when pressing on it. He had a CT scan of abdomen and pelvis which showed some mild inflammatory changes at level of the ileocecal valve. He currently states he is feeling well. No further abdominal pain. NO nausea or vomiting. Tolerated some clear liquids. Stats he has not passed any gas yet but has not been out of bed and would like to walk around. Allergies Allergy/AdvReac Type Severity Reaction Status Date / Time aspirin AdvReac Intermediate HIGH Verified 05/07/22 19:19 DOSES---PRONE TO BLEEDING Home Medications Medication Instructions Recorded Confirmed Type aspirin 81 mg tablet,delayed 81 mg PO DAILY 06/20/19 05/07/22 History release atorvastatin 40 mg tablet 40 mg PO HS 06/20/19 05/07/22 History metoprolol tartrate 25 mg tablet 12.5 mg PO BID 06/20/19 05/07/22 History amlodipine 5 mg tablet 5 mg PO DAILY 09/14/19 05/07/22 History gabapentin 600 mg tablet 600 mg PO TID 05/07/22 05/07/22 History Patient History Medical History (Updated 05/07/22 @ 23:34 by Rishi Tan DO) Aortic aneurysm Cerebral aneurysm Vertigo Surgical History No pertinent past surgical history Social History Smoking Status: Former smoker Tobacco Type: Cigarettes Second Hand Exposure: Yes; Hx Alcohol Use: Yes Alcohol type: hard liquor Hx Substance Use: Yes Last Used Substance: Unknown Preferred Language: French Communication Ability: Effective 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 Beliefs That Will Affect Care: None marital status: Current Living Situation: Spouse and Family Feels Safe at Home: Yes Assistive Devices: None Physical Exam Constitutional: WD/WN, vitals as above no acute distress and not ill appearing Neck: normal visual inspection and trachea midline Respiratory: normal respiratory effort, lungs clear to auscultation Cardiovascular: RRR, no murmur, no edema Gastrointestinal (Abdomen): Inspection/Auscultation: abdomen normal to inspection and normal bowel sounds; abdomen not distended Percussion/Palpation: + abdomen tender (RLQ on moderate palpation with voluntary guarding), + guarding (voluntary on palpation RLQ) and abdomen soft; abdomen not rigid No peritonitis Skin: no rashes, warm and dry Psychiatric: A+Ox3, euthymic affect Results & Data ([facility]) Vital Signs (Past 12 Hours) Vital Signs Pulse Pulse Resp BP BP Pulse Ox Pulse Ox 05/08/22 10:30 70 18 05/08/22 10:20 71 20 05/08/22 10:10 73 22 05/08/22 10:02 74 18 134/65 96 05/08/22 10:02 76 16 05/08/22 10:00 79 19 05/08/22 09:50 82 24 05/08/22 09:42 148/89 H 05/08/22 09:20 88 30 H 05/08/22 09:10 86 19 95 05/08/22 09:08 153/78 H 05/08/22 09:08 89 12 96 05/08/22 09:06 91 H 21 95 05/08/22 08:50 96 H 26 H 05/08/22 08:40 83 23 05/08/22 08:30 77 19 05/08/22 08:20 77 27 H 05/08/22 08:10 75 20 05/08/22 08:00 75 19 05/08/22 08:00 128/77 05/08/22 07:50 80 19 05/08/22 07:40 74 18 05/08/22 07:30 64 13 05/08/22 07:20 66 15 05/08/22 07:10 62 17 05/08/22 07:00 66 20 05/08/22 07:00 134/72 05/08/22 06:50 67 15 05/08/22 06:40 77 16 05/08/22 08:11 83 16 128/77 96 05/08/22 08:11 96 05/08/22 06:30 67 14 05/08/22 06:20 68 18 05/08/22 06:10 65 14 05/08/22 06:00 64 12 05/08/22 06:00 121/78 05/08/22 05:50 70 21 05/08/22 06:00 64 12 121/78 95 05/08/22 05:00 74 17 142/70 H 95 05/08/22 05:00 72 17 142/70 H 95 05/08/22 04:00 66 15 116/71 92 05/08/22 03:00 64 13 107/62 93 05/08/22 02:00 65 13 106/70 95 05/08/22 01:00 75 16 111/68 96 05/08/22 00:41 75 19 111/65 95 05/08/22 00:00 78 15 111/65 96 O2 Del Method O2 Del Method 05/08/22 10:30 05/08/22 10:20 05/08/22 10:10 05/08/22 10:02 05/08/22 10:02 05/08/22 10:00 05/08/22 09:50 05/08/22 09:42 05/08/22 09:20 05/08/22 09:10 05/08/22 09:08 05/08/22 09:08 05/08/22 09:06 05/08/22 08:50 05/08/22 08:40 05/08/22 08:30 05/08/22 08:20 05/08/22 08:10 05/08/22 08:00 05/08/22 08:00 05/08/22 07:50 05/08/22 07:40 05/08/22 07:30 05/08/22 07:20 05/08/22 07:10 05/08/22 07:00 05/08/22 07:00 05/08/22 06:50 05/08/22 06:40 05/08/22 08:11 Room Air 05/08/22 08:11 Room Air 05/08/22 06:30 05/08/22 06:20 05/08/22 06:10 05/08/22 06:00 05/08/22 06:00 05/08/22 05:50 05/08/22 06:00 Room Air 05/08/22 05:00 Room Air 05/08/22 05:00 Room Air 05/08/22 04:00 Room Air 05/08/22 03:00 Room Air 05/08/22 02:00 Room Air 05/08/22 01:00 Room Air 05/08/22 00:41 Room Air 05/08/22 00:00 Room Air Laboratory Results 05/08/22 05/08/22 05/07/22 Range/Units 04:33 04:33 19:20 WBC 7.92 (4.8-10.8) K/ul RBC 3.86 L (4.63-6.08) M/uL Hgb 12.3 L (14.0-18.0) g/dl Hct 35.7 L (40.1-51.0) % MCV 92.5 (80.0-100.0) fL MCH 31.9 (25.0-34.0) pg MCHC 34.5 (32.0-36.0) g/dL RDW Std Deviation 46.1 (36.4-46.3) fL RDW Coeff of Annie 13.5 (11.5-14.5) % Plt Count 218 (130-400) K/uL MPV 9.7 (9.4-12.4) fL Immature Gran % (Auto) 0.5 % Neut % (Auto) 68.5 % Lymph % (Auto) 23.0 % [place] % (Auto) 7.4 % Eos % (Auto) 0.3 % Baso % (Auto) 0.3 % Neut # (Auto) 5.43 (1.4-6.5) K/uL Lymph # (Auto) 1.82 (1.2-3.4) K/uL [place] # (Auto) 0.59 (0.24-0.82) K/uL Eos # (Auto) 0.02 (0-0.50) K/uL Baso # (Auto) 0.02 (0-0.2) K/uL Immature Gran # (Auto) 0.04 H (0.00-0.02) K/uL Sodium 140 (136-145) mmol/L Potassium 4.0 (3.5-5.1) mmol/L Chloride 109 H (98-107) mmol/L Carbon Dioxide 28 (21-32) mmol/L Anion Gap 3 (3-11) BUN 11 (6-23) mg/dl Creatinine 1.10 (0.6-1.4) mg/dl Est Cr Clr Drug Dosing 58.7 ml/min Est GFR ( Amer) 77.3 ml/min Est GFR (Non-Af Amer) 66.7 ml/min BUN/Creatinine Ratio 10.0 (10-20) Glucose 91 (70-99(Fasting)) mg/dl Calcium 9.2 (8.5-10.1) mg/dl Magnesium 2.0 (1.7-2.4) mg/dl Total Bilirubin (0.2-1.0) mg/dl AST (13-39) U/L ALT (7-52) U/L Alkaline Phosphatase (34-104) U/L Total Protein (6.0-8.3) gm/dl Albumin (3.4-5.0) gm/dl Globulin (2.5-4.0) gm/dl Albumin/Globulin Ratio (0.9-2) Lipase (11-82) U/L SARS-CoV-2, RNA, NAAT NEGATIVE (NEGATIVE) 05/07/22 05/07/22 Range/Units 17:34 17:34 WBC 14.44 H (4.8-10.8) K/ul RBC 4.29 L (4.63-6.08) M/uL Hgb 13.6 L (14.0-18.0) g/dl Hct 39.4 L (40.1-51.0) % MCV 91.8 (80.0-100.0) fL MCH 31.7 (25.0-34.0) pg MCHC 34.5 (32.0-36.0) g/dL RDW Std Deviation 45.1 (36.4-46.3) fL RDW Coeff of Annie 13.4 (11.5-14.5) % Plt Count 246 (130-400) K/uL MPV 9.6 (9.4-12.4) fL Immature Gran % (Auto) 0.4 % Neut % (Auto) 81.7 % Lymph % (Auto) 11.2 % Sweet [place] % (Auto) 6.4 % Eos % (Auto) 0.1 % Baso % (Auto) 0.2 % Neut # (Auto) 11.79 H (1.4-6.5) K/uL Lymph # (Auto) 1.62 (1.2-3.4) K/uL [place] # (Auto) 0.93 H (0.24-0.82) K/uL Eos # (Auto) 0.01 (0-0.50) K/uL Baso # (Auto) 0.03 (0-0.2) K/uL Immature Gran # (Auto) 0.06 H (0.00-0.02) K/uL Sodium 140 (136-145) mmol/L Potassium 3.6 (3.5-5.1) mmol/L Chloride 108 H (98-107) mmol/L Carbon Dioxide 22 (21-32) mmol/L Anion Gap 10 (3-11) BUN 15 (6-23) mg/dl Creatinine 0.99 (0.6-1.4) mg/dl Est Cr Clr Drug Dosing 65.3 ml/min Est GFR ( Amer) 87.8 ml/min Est GFR (Non-Af Amer) 75.8 ml/min BUN/Creatinine Ratio 15.2 (10-20) Glucose 85 (70-99(Fasting)) mg/dl Calcium 9.3 (8.5-10.1) mg/dl Magnesium (1.7-2.4) mg/dl Total Bilirubin 0.9 (0.2-1.0) mg/dl AST 18 (13-39) U/L ALT 18 (7-52) U/L Alkaline Phosphatase 66 (34-104) U/L Total Protein 6.7 (6.0-8.3) gm/dl Albumin 4.0 (3.4-5.0) gm/dl Globulin 2.7 (2.5-4.0) gm/dl Albumin/Globulin Ratio 1.5 (0.9-2) Lipase 27 (11-82) U/L SARS-CoV-2, RNA, NAAT (NEGATIVE) Diagnostic Findings ABDOMEN AND PELVIS CT WITH IV CONTRAST CT DOSE: 407.49 mGy.cm HISTORY: Right-sided abd pain s/p colonoscopy today TECHNIQUE: Multiaxial CT images of the abdomen and pelvis were performed following the use of intravenous contrast. A dose lowering technique was utilized adhering to the principles of ALARA. COMPARISON STUDY: Abdomen CTA 09/14/2019. FINDINGS: Mild bibasilar subsegmental atelectasis. No pneumoperitoneum. No pneumatosis. No acute fractures identified. Mild hepatic steatosis. The gallbladder, pancreas, spleen, and right adrenal gland unremarkable. A 2.8 cm heterogeneous left adrenal gland nodule again noted. This is similar to the prior study. Punctate calcification within the left renal sinus appears to be vascular. Subcentimeter hypodense lesions within the kidneys are technically too small to characterize but statistically represent cysts. No ureteral stones. No hydronephrosis. The main portal vein is patent. No retroperitoneal lymphadenopathy. An aortobiiliac stent graft repair again noted. The aneurysm sac remains unchanged in size measuring up to 3.6 cm in diameter. No pelvic lymphadenopathy or pelvic free fluid. The bladder is unremarkable. The prostate gland is mildly enlarged. Multiple colonic diverticula. No evidence for acute diverticulitis. No evidence for bowel obstruction. Fluid-filled colon. Minimal pericecal inflammatory change at the level of the ileocecal valve. There is also a surgical clip noted within the lumen of the cecum at this location. There is no significant bowel wall thickening. No pericecal fluid collections or extraluminal gas to suggest a perforation. Normal appendix. IMPRESSION: 1. Minimal pericecal inflammatory change at the level of the ileocecal valve. There is also a surgical clip noted within the lumen of the cecum at this location. Therefore, this may be secondary to the recent post colonoscopy changes. There is no significant bowel wall thickening. No pericecal fluid collections or extraluminal gas to suggest a perforation. 2. No significant change in the 2.8 cm left adrenal gland nodule. 3. Hepatic steatosis. 4. Additional findings as described above. (1) Abdominal pain Abdominal location: generalized Qualified Code(s): R10.84 - Generalized abdominal pain
--- NOTE | 2022-05-08 11:40 | Gastroenterology Progress Note ---
Date of Service May 08, 2022 Assessment & Plan (1) Abdominal pain: Plan: Patient is a 71 years old male who underwent colonoscopy with multiple polypectomies yesterday, who presented with abdominal pain symptoms. [place] [address] yesterday, today improved to 7000, blood count stable, CT abdomen pelvis without signs of perforation. 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 He is clinically doing better today. Had a bowel movement without signs of gross GI bleeding. - CL diet x 1 more day - KUB today - If clinically continues to improve, and stable, consider DC by end of day with 7 days of Augmentin PO - Pls recall GI prn Admission and Anticipated Discharge Date Admission Date: May 07, 2022 Supervising Physician Co-Signing Physician Notes I have personally seen and examined the patient with ALMITA Hogan. Her note reflects my exam and findings. I agree with her impression and plan. Check KUB. If w/o worrisome findings he can be D/C'd from a GI perspective. Dustin Holder M.D. Subjective Patient reports that he does not have any abdominal pain when he is resting, pain only elicited if his abdomen is palpated. He had a bowel movement this morning which was loose and dark in color but denies any tarry appearance or rectal bleeding. Review of Systems Review of Systems: All systems reviewed & are unremarkable except as noted in HPI & below Physical Exam Constitutional: WD/WN, vitals as above well groomed, cooperative and comfortable Eyes: PERRL, conjunctivae normal, anicteric sclerae ENMT: external ear and nose normal, oropharynx normal Respiratory: normal respiratory effort, lungs clear to auscultation Cardiovascular: RRR, no murmur, no edema Gastrointestinal (Abdomen): Tender to palpation over right upper quadrant and right lower quadrant areas, bowel sounds present, abdomen soft, no guarding. Skin: no rashes, warm and dry no jaundice Psychiatric: A+Ox3, euthymic affect Lymphatic: no lymphedema Results & Data ([facility]) Vital Signs (Past 12 Hours) Vital Signs Pulse Pulse Resp BP BP Pulse Ox Pulse Ox 05/08/22 10:30 70 18 05/08/22 10:20 71 20 05/08/22 10:10 73 22 05/08/22 10:02 74 18 134/65 96 05/08/22 10:02 76 16 05/08/22 10:00 79 19 05/08/22 09:50 82 24 05/08/22 09:42 148/89 H 05/08/22 09:20 88 30 H 05/08/22 09:10 86 19 95 05/08/22 09:08 153/78 H 05/08/22 09:08 89 12 96 05/08/22 09:06 91 H 21 95 05/08/22 08:50 96 H 26 H 05/08/22 08:40 83 23 05/08/22 08:30 77 19 05/08/22 08:20 77 27 H 05/08/22 08:10 75 20 05/08/22 08:00 75 19 05/08/22 08:00 128/77 05/08/22 07:50 80 19 05/08/22 07:40 74 18 05/08/22 07:30 64 13 05/08/22 07:20 66 15 05/08/22 07:10 62 17 05/08/22 07:00 66 20 05/08/22 07:00 134/72 05/08/22 06:50 67 15 05/08/22 06:40 77 16 05/08/22 08:11 83 16 128/77 96 05/08/22 08:11 96 05/08/22 06:30 67 14 05/08/22 06:20 68 18 05/08/22 06:10 65 14 05/08/22 06:00 64 12 05/08/22 06:00 121/78 05/08/22 05:50 70 21 05/08/22 06:00 64 12 121/78 95 05/08/22 05:00 74 17 142/70 H 95 05/08/22 05:00 72 17 142/70 H 95 05/08/22 04:00 66 15 116/71 92 05/08/22 03:00 64 13 107/62 93 05/08/22 02:00 65 13 106/70 95 05/08/22 01:00 75 16 111/68 96 05/08/22 00:41 75 19 111/65 95 05/08/22 00:00 78 15 111/65 96 O2 Del Method O2 Del Method 05/08/22 10:30 05/08/22 10:20 05/08/22 10:10 05/08/22 10:02 05/08/22 10:02 05/08/22 10:00 05/08/22 09:50 05/08/22 09:42 05/08/22 09:20 05/08/22 09:10 05/08/22 09:08 05/08/22 09:08 05/08/22 09:06 05/08/22 08:50 05/08/22 08:40 05/08/22 08:30 05/08/22 08:20 05/08/22 08:10 05/08/22 08:00 05/08/22 08:00 05/08/22 07:50 05/08/22 07:40 05/08/22 07:30 05/08/22 07:20 05/08/22 07:10 05/08/22 07:00 05/08/22 07:00 05/08/22 06:50 05/08/22 06:40 05/08/22 08:11 Room Air 05/08/22 08:11 Room Air 05/08/22 06:30 05/08/22 06:20 05/08/22 06:10 05/08/22 06:00 05/08/22 06:00 05/08/22 05:50 05/08/22 06:00 Room Air 05/08/22 05:00 Room Air 05/08/22 05:00 Room Air 05/08/22 04:00 Room Air 05/08/22 03:00 Room Air 05/08/22 02:00 Room Air 05/08/22 01:00 Room Air 05/08/22 00:41 Room Air 05/08/22 00:00 Room Air (1) Abdominal pain Abdominal location: generalized Qualified Code(s): R10.84 - Generalized abdominal pain
--- NOTE | 2022-05-08 14:42 | XRay Report ---
XR KUB/Abdomen 1 view CLINICAL HISTORY: post colonoscopy abd pain TECHNIQUE: 1 view of the abdomen was obtained. Comparison: None available at the time of this dictation. FINDINGS: Aortobiiliac stent is seen. Degenerative changes are seen in the visualized skeleton. The bowel gas p attern is nonobstructive. Large bowel gas is seen without significant stool burden. No pneumoperitone um is seen within the limits of a supine radiograph. IMPRESSION: No acute abnormality. Within the limits of a supine radiograph, no pneumoperitoneum is seen. ACT 112: Negative or not required by law. Electronically signed by: George Neal M.D. 05/08/2022 2:40 PM
--- NOTE | 2022-05-08 15:34 | Discharge Summary ---
Date of Service May 08, 2022 Admission HPI Per Admitting Provider A 71-year-old male with past medical history significant for benign neoplasm of adrenal gland, hyperlipidemia, hypertriglyceridemia, abdominal aortic aneurysm, cerebral aneurysm, left carotid aneurysm, bilateral carotid artery disease, hypertension, CAD, CKD stage II, history of colon polyps, status post colonoscopy and polypectomy. After colonoscopy, he started having abdominal pain in the right lower quadrant, 5/10 in severity so came here. Received morphine, the pain is improved. He has only tenderness now. . Denies any bloody bowel movement. Denies any nausea. No chest pain, no shortness of breath. No cough. He has some postnasal drip. He has dry eyes and gets blurred visions . Says after colonoscopy, he had a headache, but that is improved now. Currently, resting comfortably and hemodynamically stable Admission Exam Per Admitting Provider GENERAL: The patient is of moderate build, not in acute distress. VITAL SIGNS: Temperature 36.7, pulse 86, respiratory rate 17, blood pressure 146/81, oxygen 98% on room air. HEENT: Pupils equal, round and reactive to light. Oral mucosa moist. NECK: No JVD, no neck masses. CARDIOVASCULAR: S1 and S2 heard. Regular rate and rhythm. No murmur, no gallop. RESPIRATORY SYSTEM: Normal AP diameter. No accessory muscles use. No wheezing, crackles. ABDOMEN: Soft, bowel sounds present. Mild tenderness in the right lower quadrant. Mild guarding, no distention. CENTRAL NERVOUS SYSTEM: Cranial nerves II through XII are grossly intact, nonfocal. EXTREMITIES: No edema, no erythema. 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 Normal insp/exp effort, no accessory muscle use Cardiovascular: RRR, no murmur, no edema Vessels: no JVD or carotid bruit Chest: normal inspection of chest Abdomen: Mild tenderness present in right upper and lower quadrant. Musculoskeletal: no cyanosis or clubbing, extremities motor strength 5/5 Skin: no rashes, warm and dry normal turgor Neurologic: PERRL, EOMI, accommodation nl, no face palsy, no dysarthria CN's II- XI intact bilaterally and moves all extremities Psychiatric: A+Ox3, euthymic affect Lymphatic: no cervical or axillary lymphadenopathy : deferred Discharge Data Allergies Allergy/AdvReac Type Severity Reaction Status Date / Time aspirin AdvReac Intermediate HIGH Verified 05/07/22 19:19 DOSES---PRONE TO BLEEDING Consultations 05/07/22 19:10 Consult Gastroenterology Stat 05/07/22 19:19 ED Decision to Admit Stat 05/08/22 08:00 Consult General Surgery Routine Ordered Studies 05/07/22 17:15 CT abd pelvis IV con only Stat Hospital Course (1) Abdominal pain: Patient is a 71-year-old male with past medical history of hyperlipidemia, hypertension, CAD presented after colonoscopy with abdominal pain in right lower quadrant. No history of bloody bowel movement. CT abdomen and pelvis with IV contrast was done which showed minimal pericecal inflammatory changes at the level of ileocecal valve. Patient was admitted to telemetry floor; GI and surgery were consulted. GI suspected patient possibly has post polypectomy syndrome. KUB was done which was unremarkable. Patient was discharged home with instruction to follow clear liquid diet for 1 more day. He was also prescribed Augmentin for 7 days. He was instructed not to take aspirin, NSAID's and fish oil for 1 more week. Patient to follow-up with primary care doctor next week. 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 You are prescribed Augmentin twice a day for 1 week. Please pick up operator the medication from your pharmacy. Follow up with PCP Pending Studies at Discharge: No Stand-Alone Forms: [facility], Smoking Cessation Medications and DC Order Prescriptions: New acetaminophen 325 mg Tablet 650 mg PO Q4H PRN (Reason: fever or pain) Qty: 30 0RF amoxicillin-pot clavulanate 875-125 mg tablet 1 tab PO BID 7 Days Qty: 14 0RF Continued metoprolol tartrate 25 mg tablet 12.5 mg PO BID atorvastatin 40 mg Tablet 40 mg PO HS aspirin 81 mg Tablet,Delayed Release (Dr/Ec) 81 mg PO DAILY amlodipine 5 mg tablet 5 mg PO DAILY gabapentin 600 mg tablet 600 mg PO TID Discharge Orders: Discharge Order (Routine); Ordered 05/08/22 Ordered By: Sanchez Pichardo Admission Data Admit Date/Time: 05/07/22 20:42 Attending Provider: Sanchez Pichardo Admit Provider: aDyton Moreira Primary Care Provider: Mauro Watson Other Providers: Luciana Fernandez ; Dayton Moreira ; Nemesio Soares ; Rishi Warren ; Ramona Barragan ; Narda Sauceda ; Jordon Rosas ; Kin Muñoz ; Larissa Anguiano ; Amy Reno ; Beto Cr Jr ; Magda Hernandez ; Ronal Isaac ; Amisha Downs
== END 2022-05-08 17:10 | disposition home or self-care (01) ==
LOC: ED 16:38 → INTOOBSV 20:42 → EDINP 20:42 → 2N 22:01

== ENCOUNTER 2024-02-18 21:28 | Inpatient (IN) ==
[2024-02-18] MEDS: PROCHLORPERAZINE 1 ML IV ONE (22:23)
[2024-02-18] MEDS: SODIUM CHLORIDE 0.9% 1,000 ML IV SCH (22:24)
[2024-02-18] MEDS: MoRPHine SULFATE 4 MG/ML 1 ML CARP\\VIAL IV STA (22:27)
[2024-02-18 22:32] LABS: Alanine Aminotransferase 88 U/L (7-52); Albumin Globulin Ratio 0.9 (0.9-2); Albumin Level 2.9 gm/dl (3.4-5.0); Alkaline Phosphatase 330 U/L (34-104); Anion Gap 11 (3-11); Aspartate Aminotransferase 182 U/L (13-39); BUN Creatinine Ratio 22.8 (10-20); Blood Urea Nitrogen 28 mg/dl (6-23); Calcium 8.8 mg/dl (8.6-10.3); Carbon Dioxide 24 mmol/L (21-32); Chloride 99 mmol/L (98-107); Globulin 3.4 gm/dl (2.5-4.0); Glucose 122 mg/dl (70-99(Fasting)); Potassium 4.3 mmol/L (3.5-5.1); Sodium 134 mmol/L (136-145); Total Protein 6.3 gm/dl (6.0-8.3)
[2024-02-18 22:37] LABS: Hematocrit (blood only) 33.1 % (42.0-52.0); Hemoglobin 10.7 g/dl (14.0-18.0); Mean Corpuscular Hemoglobin 33.8 pg (25.0-34.0); Mean Corpuscular Hgb Conc 32.3 g/dL (32.0-36.0); Mean Corpuscular Volume 104.4 fL (80.0-100.0); Nucleated RBC # (auto) 0.05 K/uL (0.00-0.12); Nucleated RBC % (auto) 0.9 %; Platelet Count 12 K/uL (130-400); RDW Coefficient of Variation 16.6 % (11.5-14.5); RDW Standard Deviation 62.3 fL (36.4-46.3); Red Blood Count 3.17 M/uL (4.70-6.10); White Blood Count 5.35 K/ul (4.8-10.8)
[2024-02-18 22:39] LABS: Troponin I High Sensitivity 17.4 pg/ml (0-20)
--- NOTE | 2024-02-18 22:50 | Emergency Department Note ---
Impression & Plan Fever, Confusion, Abdominal pain, Thrombocytopenia, Acute CVA (cerebrovascular accident), Abnormal LFTs, Anemia ED Provider Note ED Provider Note NAME: DAREN SANTOS AGE:73 SEX: Male : 1950 ARRIVES VIA: private vehicle INFORMANT: Patient ED PROVIDER(s): Ruby Ozuna DO CHIEF COMPLAINT: Fever, abdominal pain, disorientation, known cancer history HPI: This is a 73-year-old male presents emergency department due to abdominal pain, fever, intermittent disorientation according to family today, and a known history of malignancy. Patient's last chemo treatment was 2 weeks ago. They state the cancer was first noted in the liver although after additional testing they now think the primary may have been in the lungs. They deny any other known sick contacts or changes in his medications. They note he has had a decreased appetite and began complaining of increased intermittent lower abdominal pain today. Patient states he has been nauseated additionally but has not vomited. No recent change in urine or stools. He denies any rash or sores. Sons are at bedside, and additional history obtained together phone with patient's . Sons at bedside feel the patient's yellowed skin discoloration is also worse compared to prior. PAST MEDICAL HISTORY:See Below PAST SURGICAL HISTORY:See Below FAMILY HISTORY:See Below SOCIAL HISTORY:See Below HOME MEDICATIONS:See Below ALLERGIES:See Below VITALS:See Below PHYSICAL EXAMINATION: GENERAL: alert, unwell appearing, well nourished, no distress, non-toxic EYE EXAM: normal conjunctiva, PERRL and EOM's grossly intact, scleral icterus OROPHARYNX: no exudate, no erythema, lips, buccal mucosa, and tongue normal and mucous membranes are dry NECK: supple, no nuchal rigidity, no adenopathy, non-tender LUNGS: Clear to auscultation. Normal chest wall mechanics, no w/r/r HEART: no murmurs, S1 normal and S2 normal ABDOMEN: abdomen soft, generalized discomfort with palpation, normo-active bowel sounds, no masses, no rebound or guarding. No fluid wave. Mild distention. BACK: Back is symmetrical on inspection and there is no deformity, no midline tenderness, no CVA tenderness. SKIN: no rashes, petechiae, orbruising UPPER EXTREMITIES: upper extremities are grossly normal. FROM, nml pulses b/l. LOWER EXTREMITIES: No pitting edema. FROM, nml pulses b/l. NEURO EXAM: Normal sensorium, cranial nerves II-XII grossly intact, normal speech, no facial droop,nogross weakness of arms, no gross weakness of legs. Gross sensation intact. No ataxia. Vital Signs: reviewed and remarkable Differential Diagnosis: neutropenic fever, sepsis, pna, cholangitis, pancreatitis, UTI, port infection, SBP, viral syndrome, colitis, as well as others were considered MEDICAL DECISION MAKING: This is a 73 yo male with a hx of malignancy who presents with family due to concern for abdominal pain, fever, mild confusion. His last chemo was 2 weeks ago. He was afebrile on arrival and oriented. Patient's family helps to provide additional hx. Labs drawn and sent, IV established, EKG and CXR performed and interpreted at bedside, and patient placed on telemetry. Blood cultures obtained additionally. He was started on IVF and given IV morphine and IV compazine for his pain and nausea. He was sent for CT head/chest/abd/pelvis additionally. I did receive a call from the outside radiologist regarding the head CT as there was concern for a new infarct. Patient noted to have more severe thrombocytopenia compared to prior. No evidence of bleeding per his report and none noted on CT's. Viral panel negative. LFT's higher than prior although were previously elevated, however CT with increased number/size of lesions in the liver. Patient was given IV cefepime and vancomycin while awaiting results. Mild leukopenia noted. Initial lactic acid elevated, repeat downtrending. Procal elevated also. Abd soft and only mild discomfort in the inferior aspect per his report. Exam not suggestive of SBP and given platelet count may benefit from platelet transfusion prior to any consideration for paracentesis. I do not suspect ascending cholangitis. Case discussed with hospitalist for additional evaluation and mgmt, urinalysis still pending at the time of this discussion. I did discuss CT results with family at bedside. His tachycardia did improve with pain control and IVF hydration. No hypotension noted throughout. He was not given ASA despite finding of a new infarct due to thrombocytopenia. Consultation(s): 0305: Discussed with Dr. Gonzales, [facility] hospitalist team, for additional evaluation and management. ER Treatment Provided: See below Diagnostics Interpreted By Me: -ECG: Sinus tachycardia at 160, normal axis, normal intervals, ST depression noted in V4 through V6, also mildly in lead II, artifact otherwise noted in several leads -Cardiac Monitoring: An order was placed for continuous cardiac monitoring. The monitor shows a rate of 155 with sinus tachycardia rhythm. -Laboratory studies: As stated above and show below. -Imaging studies: X-ray Chest: A single view study of the chest was reviewed and was negative for cardiomegaly, focal infiltrate, effusion, pulmonary edema, or wide mediastinum. Triage Nursing Note Reviewed Prior/Outside Records Reviewed -outpatient labs from 02/06/2024 reviewed, CT scan from 02/04 reviewed Critical Care: Critical care of 49 min performed to assess and manage high likelihood of life- threatening fever and malignancy, involving labs and imaging performed with assessment to evaluate fever and malignancy diagnosis with frequent reassessment. This time includes bedside time, treatment discussions with patient/family/consultants, documentation time and excludes procedure time. Past Med/Surg History Problem List (Updated 02/19/24 @ 19:35 by Ruby Ozuna DO) Anemia (Acute) Abnormal LFTs (Acute) Acute CVA (cerebrovascular accident) (Acute) Cirrhosis Severe sepsis Thrombocytopenia (Acute) Abdominal pain (Acute) Confusion (Acute) Fever (Acute) CAD (coronary artery disease) (Chronic) "cath 2010 - moderate CAD nuclear stress test 03/2015 - negative for ishcemia " Dyslipidemia (Chronic) HTN (hypertension) (Chronic) Abdominal aortic aneurysm (Chronic) Peripheral vascular disease (Chronic) History of adenomatous polyp of colon (Chronic) "tubular adenoma 11/23/15" AVM (arteriovenous malformation) of colon (Chronic) "colonoscopy 11/23/15" Carotid arterial disease (Chronic) S/P AAA repair (Chronic) Status post abdominal aortic aneurysm repair (Chronic) Status post hemorrhoidectomy Pre-syncope Weakness Medical History (Updated 02/19/24 @ 19:35 by Ruby Ozuna DO) Abdominal pain Aortic aneurysm Vertigo Cerebral aneurysm Surgical History No pertinent past surgical history Social History Smoking Status: Former smoker Tobacco Type: Cigarettes Second Hand Exposure: Yes; Hx Alcohol Use: Yes Alcohol type: hard liquor Hx Substance Use: No Preferred Language: B[place] Communication Ability: Effective Hand Straightener Required: No Beliefs That Will Affect Care: None marital status: Current Living Situation: Spouse Feels Safe at Home: Yes Safety Concerns: Feels Safe At This Time Assistive Devices: Glasses Allergies Allergies Allergy/AdvReac Type Severity Reaction Status Date / Time aspirin AdvReac Intermediate HIGH Verified 05/07/22 19:19 DOSES---PRONE TO BLEEDING Home Meds Home Medications Medication Instructions Recorded Confirmed aspirin 81 mg tablet,delayed 81 mg PO DAILY 06/20/19 02/19/24 release atorvastatin 40 mg tablet 40 mg PO HS 06/20/19 02/19/24 metoprolol tartrate 25 mg tablet 12.5 mg PO BID 06/20/19 02/19/24 amlodipine 5 mg tablet 5 mg PO DAILY 09/14/19 02/19/24 gabapentin 600 mg tablet 600 mg PO TID 05/07/22 02/19/24 folic acid 1 mg tablet 1 mg PO QAM 02/19/24 02/19/24 furosemide 20 mg tablet 20 mg PO QAM 02/19/24 02/19/24 omeprazole 20 mg capsule,delayed 20 mg PO QAM 02/19/24 02/19/24 release spironolactone 25 mg tablet 25 mg PO QAM 02/19/24 02/19/24 Previous Rx's Medication Instructions Recorded acetaminophen 325 mg tablet 650 mg (2 x 325 mg) PO Q4H PRN 05/08/22 fever or pain #30 tabs Results & Data (ED) Vital Signs Vital Signs - 24 hr 02/18/24 21:33 02/18/24 21:33 02/18/24 22:00 Temperature 36.5 C Temperature Source Temporal Artery Scan Pulse Rate 156 H Pulse Rate [Apical] 135 H Pulse Rate from SpO2 Sensor Respiratory Rate 20 18 Respiratory Effort / Characteristics Non-Labored Spontaneous Respiratory Depth Normal Respiratory Pattern Regular Blood Pressure Blood Pressure [Right Arm] 133/84 Blood Pressure Mean Blood Pressure Mean [Right Arm] 100 Pulse Oximetry 95 96 Oxygen Delivery Method Room Air Room Air Room Air Sepsis Recent Fever Within 48 Hours No Sepsis New/Unexplained Change in Mental Status No Sepsis Action Taken by Nursing No Action Required 02/18/24 22:00 02/18/24 22:00 02/18/24 22:20 Temperature Temperature Source Pulse Rate 133 H Pulse Rate [Apical] Pulse Rate from SpO2 Sensor Respiratory Rate Respiratory Effort / Characteristics Respiratory Depth Normal Respiratory Pattern Regular Blood Pressure Blood Pressure [Right Arm] Blood Pressure Mean Blood Pressure Mean [Right Arm] Pulse Oximetry 96 Oxygen Delivery Method Room Air Sepsis Recent Fever Within 48 Hours Sepsis New/Unexplained Change in Mental Status Sepsis Action Taken by Nursing 02/18/24 23:00 02/18/24 23:33 02/19/24 00:03 Temperature Temperature Source Pulse Rate 121 H 119 H 121 H Pulse Rate [Apical] Pulse Rate from SpO2 Sensor 119 H Respiratory Rate 16 17 18 Respiratory Effort / Characteristics Respiratory Depth Respiratory Pattern Blood Pressure 110/78 119/74 117/88 Blood Pressure [Right Arm] Blood Pressure Mean 97 89 97 Blood Pressure Mean [Right Arm] Pulse Oximetry 93 92 91 Oxygen Delivery Method Room Air Room Air Sepsis Recent Fever Within 48 Hours Sepsis New/Unexplained Change in Mental Status Sepsis Action Taken by Nursing 02/19/24 00:54 02/19/24 01:09 02/19/24 02:15 Temperature Temperature Source Pulse Rate 122 H 117 H 116 H Pulse Rate [Apical] Pulse Rate from SpO2 Sensor Respiratory Rate 13 16 14 Respiratory Effort / Characteristics Respiratory Depth Respiratory Pattern Blood Pressure 128/74 Blood Pressure [Right Arm] Blood Pressure Mean 91 Blood Pressure Mean [Right Arm] Pulse Oximetry 91 93 92 Oxygen Delivery Method Room Air Room Air Room Air Sepsis Recent Fever Within 48 Hours Sepsis New/Unexplained Change in Mental Status Sepsis Action Taken by Nursing 02/19/24 02:29 02/19/24 03:00 Temperature Temperature Source Pulse Rate 115 H 112 H Pulse Rate [Apical] Pulse Rate from SpO2 Sensor Respiratory Rate 16 Respiratory Effort / Characteristics Respiratory Depth Respiratory Pattern Blood Pressure 108/74 Blood Pressure [Right Arm] Blood Pressure Mean 90 Blood Pressure Mean [Right Arm] Pulse Oximetry 92 Oxygen Delivery Method Room Air Sepsis Recent Fever Within 48 Hours Sepsis New/Unexplained Change in Mental Status Sepsis Action Taken by Nursing Laboratory Data 02/19/24 14:14 02/19/24 04:27 Lab Results 02/18/24 02/18/24 02/18/24 Range/Units 21:50 22:00 22:52 WBC 5.35 (4.8-10.8) K/ul RBC 3.17 L (4.70-6.10) M/uL Hgb 10.7 L (14.0-18.0) g/dl Hct 33.1 L (42.0-52.0) % MCV 104.4 H (80.0-100.0) fL MCH 33.8 (25.0-34.0) pg MCHC 32.3 (32.0-36.0) g/dL RDW Std Deviation 62.3 H (36.4-46.3) fL RDW Coeff of Annie 16.6 H (11.5-14.5) % Plt Count 12 L* (130-400) K/uL Absolute Nucleated RBC 0.05 (0.00-0.12) K/uL Nucleated RBC % (auto) 0.9 % Neutrophils % (Manual) 44 % Lymphocytes % (Manual) 18 % Reactive Lymphs % (Man) 29 % Monocytes % (Manual) 9 % Neutrophils # (Manual) 2.35 (1.40-6.50) K/uL Total Absolute Neuts 2.35 (1.4-6.5) K/uL Lymphocytes # (Manual) 0.96 L (1.2-3.4) K/uL Reactive Lymphs # 1.55 K/uL Total Abs Lymphocytes 2.51 (1.2-3.4) K/uL Monocytes # (Manual) 0.48 (0.11-0.59) K/uL Hypersegmented Neuts 1+ Polychromasia 1+ Tear Drop Cells 1+ PT 12.6 H (9.0-12.0) Seconds INR 1.2 H (0.9-1.1) APTT 23 (21-31) Seconds PTT Ratio 0.9 Sodium 134 L (136-145) mmol/L Potassium 4.3 (3.5-5.1) mmol/L Chloride 99 (98-107) mmol/L Carbon Dioxide 24 (21-32) mmol/L Anion Gap 11 (3-11) BUN 28 H (6-23) mg/dl Creatinine 1.23 (0.6-1.4) mg/dl Est Cr Clr Drug Dosing Not Reportable eGFR 61.61 BUN/Creatinine Ratio 22.8 H (10-20) Glucose 122 H (70-99(Fasting)) mg/dl Estimat Average Glucose 103 mg/dl Hemoglobin A1c 5.2 (4.5-5.6) % Lactate 4.2 H* (0.4-2.0) mmol/L Calcium 8.8 (8.6-10.3) mg/dl Magnesium 1.4 L (1.7-2.4) mg/dl Total Bilirubin 2.0 H (0.2-1.0) mg/dl AST 182 H (13-39) U/L ALT 88 H (7-52) U/L Alkaline Phosphatase 330 H (34-104) U/L Troponin I High Sens 17.4 (0-20) pg/ml Total Protein 6.3 (6.0-8.3) gm/dl Albumin 2.9 L (3.4-5.0) gm/dl Globulin 3.4 (2.5-4.0) gm/dl Albumin/Globulin Ratio 0.9 (0.9-2) Lipase 57 (11-82) U/L Procalcitonin 1.42 H (0-0.5) ng/ml TSH 2.098 (0.300-4.500) uIu/ml Adenovirus (PCR) Not Detected (NotDetected) B. pertussis DNA (PCR) Not Detected (NotDetected) B.parapertussis DNA PCR Not Detected (NotDetected) C. pneumoniae DNA (PCR) Not Detected (NotDetected) Coronavirus OC43 (PCR) Not Detected (NotDetected) Coronavirus HKU1 (PCR) Not Detected (NotDetected) Coronavirus 229E (PCR) Not Detected (NotDetected) SARS-CoV-2 (PCR) Not Detected (NotDetected) Coronavirus NL63 (PCR) Not Detected (NotDetected) Human Metapneumovir PCR Not Detected (NotDetected) Influenza Type A (PCR) Not Detected (NotDetected) Influenza Type B (PCR) Not Detected (NotDetected) M. pneumoniae (PCR) Not Detected (NotDetected) Parainfluenza 1 (PCR) Not Detected (NotDetected) Parainfluenza 2 (PCR) Not Detected (NotDetected) Parainfluenza 3 (PCR) Not Detected (NotDetected) Parainfluenza 4 (PCR) Not Detected (NotDetected) RSV (PCR) Not Detected (NotDetected) Entero/Rhino (PCR) Not Detected (NotDetected) Blood Type B Positive Antibody Screen NEGATIVE 02/19/24 Range/Units 00:57 WBC (4.8-10.8) K/ul RBC (4.70-6.10) M/uL Hgb (14.0-18.0) g/dl Hct (42.0-52.0) % MCV (80.0-100.0) fL MCH (25.0-34.0) pg MCHC (32.0-36.0) g/dL RDW Std Deviation (36.4-46.3) fL RDW Coeff of Annie (11.5-14.5) % Plt Count (130-400) K/uL Absolute Nucleated RBC (0.00-0.12) K/uL Nucleated RBC % (auto) % Neutrophils % (Manual) % Lymphocytes % (Manual) % Reactive Lymphs % (Man) % Monocytes % (Manual) % Neutrophils # (Manual) (1.40-6.50) K/uL Total Absolute Neuts (1.4-6.5) K/uL Lymphocytes # (Manual) (1.2-3.4) K/uL Reactive Lymphs # K/uL Total Abs Lymphocytes (1.2-3.4) K/uL Monocytes # (Manual) (0.11-0.59) K/uL Hypersegmented Neuts Polychromasia Tear Drop Cells PT (9.0-12.0) Seconds INR (0.9-1.1) APTT (21-31) Seconds PTT Ratio Sodium (136-145) mmol/L Potassium (3.5-5.1) mmol/L Chloride (98-107) mmol/L Carbon Dioxide (21-32) mmol/L Anion Gap (3-11) BUN (6-23) mg/dl Creatinine (0.6-1.4) mg/dl Est Cr Clr Drug Dosing eGFR BUN/Creatinine Ratio (10-20) Glucose (70-99(Fasting)) mg/dl Estimat Average Glucose mg/dl Hemoglobin A1c (4.5-5.6) % Lactate 3.4 H* (0.4-2.0) mmol/L Calcium (8.6-10.3) mg/dl Magnesium (1.7-2.4) mg/dl Total Bilirubin (0.2-1.0) mg/dl AST (13-39) U/L ALT (7-52) U/L Alkaline Phosphatase (34-104) U/L Troponin I High Sens (0-20) pg/ml Total Protein (6.0-8.3) gm/dl Albumin (3.4-5.0) gm/dl Globulin (2.5-4.0) gm/dl Albumin/Globulin Ratio (0.9-2) Lipase (11-82) U/L Procalcitonin (0-0.5) ng/ml TSH (0.300-4.500) uIu/ml Adenovirus (PCR) (NotDetected) B. pertussis DNA (PCR) (NotDetected) B.parapertussis DNA PCR (NotDetected) C. pneumoniae DNA (PCR) (NotDetected) Coronavirus OC43 (PCR) (NotDetected) Coronavirus HKU1 (PCR) (NotDetected) Coronavirus 229E (PCR) (NotDetected) SARS-CoV-2 (PCR) (NotDetected) Coronavirus NL63 (PCR) (NotDetected) Human Metapneumovir PCR (NotDetected) Influenza Type A (PCR) (NotDetected) Influenza Type B (PCR) (NotDetected) M. pneumoniae (PCR) (NotDetected) Parainfluenza 1 (PCR) (NotDetected) Parainfluenza 2 (PCR) (NotDetected) Parainfluenza 3 (PCR) (NotDetected) Parainfluenza 4 (PCR) (NotDetected) RSV (PCR) (NotDetected) Entero/Rhino (PCR) (NotDetected) Blood Type Antibody Screen Administered Medications Amlodipine Besylate (Amlodipine Besylate 5 Mg Tab) 5 mg PO DAILY CARLI Stop: 03/20/24 08:59 Last Admin: 02/19/24 09:02 Dose: 5 mg Documented By: HAYLEY Folic Acid (Folic Acid 1 Mg Tab) 1 mg PO QAM CARLI Stop: 03/20/24 08:59 Last Admin: 02/19/24 09:02 Dose: 1 mg Documented By: HAYLEY Gabapentin (Gabapentin 400 Mg Cap) 400 mg PO TID CARLI Stop: 03/20/24 08:59 Last Admin: 02/19/24 14:32 Dose: 400 mg Documented By: Admin: 02/19/24 09:02 Dose: 400 mg Documented By: HAYLEY Albumin Human (Albumin 25%) 25 gm in 100 mls @ 50 mls/hr IV Q8H CARLI Stop: 02/22/24 12:59 Last Infusion: 02/19/24 16:36 Dose: Infused Documented By: Admin: 02/19/24 14:34 Dose: 50 mls/hr Documented By: REBEKAH Promethazine HCl (Phenergan) 6.25 mg in 50.25 mls @ 201 mls/hr IV Q6H PRN PRN Reason: Nausea And Vomiting Stop: 03/20/24 04:53 Last Infusion: 02/19/24 08:25 Dose: Infused Documented By: Admin: 02/19/24 07:50 Dose: 201 mls/hr Documented By: HAYLEY Piperacillin Sod/Tazobactam Sod (Zosyn) 4.5 gm in 100 mls @ 25 mls/hr IV Q8H [facility]; Protocol Stop: 02/29/24 13:59 Last Infusion: 02/19/24 17:10 Dose: 0 mls/hr Documented By: Admin: 02/19/24 14:41 Dose: 25 mls/hr Documented By: REBEKAH Ioversol (Optiray 320 125ml) 118 ml IV ONCE ONE Stop: 02/19/24 19:16 Last Admin: 02/19/24 19:17 Dose: 118 ml Documented By: ZHOU Metoprolol Tartrate (Metoprolol Tartrate 25 Mg Tab) 12.5 mg PO BID [facility] Stop: 03/20/24 20:59 Last Admin: 02/19/24 09:02 Dose: 12.5 mg Documented By: HAYLEY Pantoprazole Sodium (Pantoprazole 40 Mg Tab) 40 mg PO QAM [facility]; Protocol Stop: 03/20/24 08:59 Last Admin: 02/19/24 09:03 Dose: 40 mg Documented By: HAYLEY Discontinued Medications Sodium Chloride (Nss) 1,000 mls @ 125 mls/hr IV .Q8H CARLI Stop: 02/19/24 22:14 Last Infusion: 02/19/24 11:16 Dose: Infused Documented By: Infusion: 02/19/24 04:32 Dose: 0 mls/hr Documented By: Admin: 02/18/24 22:24 Dose: 125 mls/hr Documented By: LINDA Prochlorperazine (Compazine) 1 mls @ 1 mls/min IV ONE ONE Stop: 02/18/24 22:16 Last Admin: 02/18/24 22:23 Dose: 1 mls/min Documented By: LINDA Cefepime HCl (Maxipime 2000mg) 2,000 mg in 20 mls @ 5 mls/min IV NOW STA; Protocol Stop: 02/18/24 22:59 Last Admin: 02/18/24 23:54 Dose: 5 mls/min Documented By: RADHA Vancomycin HCl 1,500 mg/ (Sodium Chloride) 530 mls @ 200 mls/hr IV NOW ONE Stop: 02/19/24 05:24 Last Infusion: 02/19/24 07:25 Dose: Infused Documented By: Admin: 02/19/24 04:40 Dose: 200 mls/hr Documented By: RADHA Albumin Human (Albumin 25%) 25 gm in 100 mls @ 50 mls/hr IV ONE ONE Stop: 02/19/24 05:11 Last Infusion: 02/19/24 06:51 Dose: Infused Documented By: Admin: 02/19/24 04:32 Dose: 50 mls/hr Documented By: RADHA Magnesium Sulfate/Dextrose (Magnesium Sulfate / D5w) 1 gm in 100 mls @ 50 mls/hr IV Q2H CARLI Stop: 02/19/24 08:59 Last Infusion: 02/19/24 11:15 Dose: Infused Documented By: Admin: 02/19/24 08:59 Dose: 50 mls/hr Documented By: Infusion: 02/19/24 08:59 Dose: Infused Documented By: Admin: 02/19/24 07:45 Dose: 50 mls/hr Documented By: HAYLEY Daptomycin 300 mg/ Syringe 6 mls @ 3 mls/min IV Q24H CARLI; Protocol Stop: 02/21/24 11:59 Last Admin: 02/19/24 14:41 Dose: 3 mls/min Documented By: REBEKAH Piperacillin Sod/Tazobactam Sod (Zosyn) 4.5 gm in 100 mls @ 200 mls/hr IV NOW STA; Protocol Stop: 02/19/24 08:20 Last Infusion: 02/19/24 12:07 Dose: Infused Documented By: Admin: 02/19/24 09:01 Dose: 200 mls/hr Documented By: HAYLEY Ioversol (Optiray 320 125ml) 116 ml IV ONCE ONE Stop: 02/18/24 23:22 Last Admin: 02/18/24 23:22 Dose: 116 ml Documented By: ALEX Morphine Sulfate (Morphine Sulfate 4 Mg/Ml 1 Ml Carp\\Vial) 4 mg IV NOW STA Stop: 02/18/24 22:15 Last Admin: 02/18/24 22:27 Dose: 4 mg Documented By: GCC Imaging Data Radiologist's Impression: Head CT 02/18/24 22:19 CR Exam(s): CT HEAD Without Contrast EXAM: CT Head Without Intravenous Contrast CLINICAL HISTORY: Reason for exam: ams. TECHNIQUE: Axial computed tomography images of the head/brain without intravenous contrast. CTDI is 11.87 mGy and DLP is 5.94 mGy-cm. Automated exposure control was utilized for the study. A dose lowering technique was utilized adhering to the principles of ALARA. COMPARISON: CT Head dated 11/30/15, MRI dated 06/01/2019 FINDINGS: Brain: New peripheral low-density area in the right frontal lobe and insula. No intracranial hemorrhage. No midline shift. Mild volume loss with prominent ventricles and sulci. Mild periventricular white matter hypoattenuation likely reflects chronic small vessel disease. Ventricles: See above. Bones/joints: Unremarkable. No acute fracture. Soft tissues: Superficial lesion in the posterior scalp mildly increased in size. May be sebaceous cyst. Vasculature: Left supraclinoid ICA coiling as on the prior head CT. Associated streak artifact. Atherosclerotic calcifications of the cavernous carotid and vertebral arteries. No obvious dense vessel sign. Sinuses: Unremarkable as visualized. No acute sinusitis. Mastoid air cells: Unremarkable as visualized. No mastoid effusion. IMPRESSION: 1. New peripheral low-density area in the right frontal lobe and insula. May represent recent infarct. Underlying lesion not excluded. 2. Left supraclinoid ICA coiling as on the prior head CT. Communications: Verify Receipt Call Doctor Above results Electronically signed by: Angie Willoughby M.D. 02/19/24 00:55 AM Abdomen/Pelvis CT 02/18/24 22:30 Exam(s): CT ABDOMEN + PELVIS With Contrast IV Amt: 116 ml opti 320 EXAM: CT Abdomen and Pelvis With Intravenous Contrast CLINICAL HISTORY: Reason for exam: fever, abd pain, known ca. TECHNIQUE: Axial computed tomography images of the abdomen and pelvis with intravenous contrast. CTDI is 22.94 mGy and DLP is 1256.98 mGy-cm. Automated exposure control was utilized for the study. A dose lowering technique was utilized adhering to the principles of ALARA. CONTRAST: Patient received 116 ml opti 320 of IV contrast COMPARISON: CT Abdomen Pelvis dated 05/07/2022, CT chest dated 09/14/2019 FINDINGS: Lung bases: Please see CTA chest also today. Mediastinum: Small hiatal hernia. ABDOMEN: Liver: Numerous new irregular low-density/heterogeneous lesions throughout the liver, new since the prior. Larger lesions measure up to 3 cm. Nodular liver contour/cirrhosis, new since the prior. Gallbladder and bile ducts: Small gallbladder calcifications/stones. No ductal dilation. Pancreas: Unremarkable. No mass. No ductal dilation. Spleen: Unremarkable. No splenomegaly. Adrenals: Similar size of the heterogeneous 2.8 cm left adrenal nodule as on both priors. New central low-density appearance. Kidneys and ureters: Stable small left renal cyst. No hydronephrosis. Stomach and bowel: Colonic diverticulosis. Mild wall thickening of proximal small bowel loops in the left abdomen. No obstruction. PELVIS: Appendix: Normal appendix. Bladder: Bladder wall thickening versus partial distention. Reproductive: Unremarkable as visualized. ABDOMEN and PELVIS: Intraperitoneal space: Moderate ascites in the abdomen and pelvis, new since the prior. No free air. Bones/joints: No acute fracture. No dislocation. Soft tissues: Unremarkable. Vasculature: Stable appearance of aortoiliac stent graft. No abdominal aortic aneurysm. Lymph nodes: Unremarkable. No enlarged lymph nodes. IMPRESSION: 1. Numerous new irregular low-density/heterogeneous lesions throughout the liver, new since the prior. Worrisome for malignancy/metastases. 2. Nodular liver contour/cirrhosis, new since the prior. 3. Moderate ascites in the abdomen and pelvis, new since the prior. 4. Similar size of the heterogeneous 2.8 cm left adrenal nodule as on both priors. New central low-density appearance. Superimposed metastasis not excluded. 5. Colonic diverticulosis. 6. Mild wall thickening of proximal small bowel loops in the left abdomen. Nonspecific. May represent enteritis/hepatic enteropathy. Electronically signed by: Angie Willoughby M.D. 02/19/24 02:20 AM Chest CTA 02/18/24 22:30 Exam(s): CTA CHEST EXAM: CT Angiography Chest With Intravenous Contrast CLINICAL HISTORY: Reason for exam: PE. TECHNIQUE: Axial computed tomographic angiography images of the chest with intravenous contrast. CTDI is 11.87 mGy and DLP is 5.94 mGy-cm. Automated exposure control was utilized for the study. A dose lowering technique was utilized adhering to the principles of ALARA. MIP reconstructed images were created and reviewed. COMPARISON: No relevant prior studies available. FINDINGS: Pulmonary arteries: Unremarkable. No pulmonary embolism. Aorta: No acute findings. No thoracic aortic aneurysm. Lungs: Small bilateral pleural effusions. Associated atelectasis. Pleural space: See above. No pneumothorax. Heart: Moderate coronary calcifications. Moderate atherosclerotic calcifications of the arch and great vessels. No cardiomegaly. No significant pericardial effusion. No evidence of RV dysfunction. Bones/joints: No acute fracture. No dislocation. Soft tissues: Unremarkable. Lymph nodes: Unremarkable. No enlarged lymph nodes. Tubes, lines and devices: Right-sided chest port. Other findings: Please see CT abdomen pelvis also today regarding abdominal findings. IMPRESSION: 1. No evidence of pulmonary embolism. 2. Small bilateral pleural effusions. Associated atelectasis. 3. Please see CT abdomen pelvis also today regarding abdominal findings. Electronically signed by: Angie Willoughby M.D. 02/19/24 02:00 AM Discharge Plan Visit Data Chief Complaint: Shortness of Breath/Dyspnea Stated Complaint: CANCER PT, FEVER 105, SOB ED Provider: Ruby Ozuna Discharge Problem: Fever, Confusion, Abdominal pain, Thrombocytopenia, Acute CVA (cerebrovascular accident), Abnormal LFTs, Anemia Patient Disposition: Admitted As Inpatient Discharge Instructions Interventions: ED Discharge Assessment Last Done: 02/19/24 04:02
[2024-02-18 23:07] LABS: ALC (manual) 2.51 K/uL (1.2-3.4); ANC (manual) 2.35 K/uL (1.4-6.5); Hypersegmented Neutrophils 1+; Lymphocytes # (manual) 0.96 K/uL (1.2-3.4); Lymphocytes % (manual) 18 %; Monocytes # (manual) 0.48 K/uL (0.11-0.59); Monocytes % (manual) 9 %; Neutrophils # (manual) 2.35 K/uL (1.40-6.50); Neutrophils % (manual) 44 %; Polychromasia 1+; Reactive Lymphocytes # (manual) 1.55 K/uL; Reactive Lymphocytes % (manual) 29 %; Tear Drop Cells 1+
[2024-02-18] MEDS: OPTIRAY 320 125ml IV ONE (23:22)
[2024-02-18 23:28] LABS: INR 1.2 (0.9-1.1); Partial Thromboplastin Ratio 0.9; Partial Thromboplastin Time 23 Seconds (21-31); Prothrombin Time 12.6 Seconds (9.0-12.0)
[2024-02-18 23:30] LABS: Adenovirus PCR Not Detected (NotDetected); Bordetella parapertussis PCR Not Detected (NotDetected); Bordetella pertussis PCR Not Detected (NotDetected); Chlamydia pneumoniae PCR Not Detected (NotDetected); Coronavirus 229E PCR Not Detected (NotDetected); Coronavirus CoV-2 (COVID19)PCR Not Detected (NotDetected); Coronavirus HKU1 PCR Not Detected (NotDetected); Coronavirus NL63 PCR Not Detected (NotDetected); Coronavirus OC43PCR Not Detected (NotDetected); Human Metapneumovirus PCR Not Detected (NotDetected); Influenza A PCR Not Detected (NotDetected); Influenza B PCR Not Detected (NotDetected); Mycoplasma pneumoniae PCR Not Detected (NotDetected); Parainfluenza Virus 1 PCR Not Detected (NotDetected); Parainfluenza Virus 2 PCR Not Detected (NotDetected); Parainfluenza Virus 3 PCR Not Detected (NotDetected); Parainfluenza Virus 4 PCR Not Detected (NotDetected); Respiratory Syncytial VirusPCR Not Detected (NotDetected); Rhinovirus/Enterovirus PCR Not Detected (NotDetected)
[2024-02-18] MEDS: CEFEPIME 2000MG 2,000 MG/20 ML SYR IV STA (23:54)
--- NOTE | 2024-02-19 00:57 | CT Scan Report ---
Exam(s): CT HEAD Without Contrast EXAM: CT Head Without Intravenous Contrast CLINICAL HISTORY: Reason for exam: ams. TECHNIQUE: Axial computed tomography images of the head/brain without intravenous contrast. CTDI is 11.87 mGy and DLP is 5.94 mGy-cm. Automated exposure control was utilized for the study. A dose lowering technique was utilized adhering to the principles of ALARA. COMPARISON: CT Head dated 11/30/15, MRI dated 06/01/2019 FINDINGS: Brain: New peripheral low-density area in the right frontal lobe and insula. No intracranial hemorrhage. No midline shift. Mild volume loss with prominent ventricles and sulci. Mild periventricular white matter hypoattenuation likely reflects chronic small vessel disease. Ventricles: See above. Bones/joints: Unremarkable. No acute fracture. Soft tissues: Superficial lesion in the posterior scalp mildly increased in size. May be sebaceous cyst. Vasculature: Left supraclinoid ICA coiling as on the prior head CT. Associated streak artifact. Atherosclerotic calcifications of the cavernous carotid and vertebral arteries. No obvious dense vessel sign. Sinuses: Unremarkable as visualized. No acute sinusitis. Mastoid air cells: Unremarkable as visualized. No mastoid effusion. IMPRESSION: 1. New peripheral low-density area in the right frontal lobe and insula. May represent recent infarct. Underlying lesion not excluded. 2. Left supraclinoid ICA coiling as on the prior head CT. Communications: Verify Receipt Call Doctor Above results Electronically signed by: Angie Willoughby M.D. 02/19/24 00:55 AM
--- NOTE | 2024-02-19 02:00 | CT Scan Report ---
Exam(s): CTA CHEST EXAM: CT Angiography Chest With Intravenous Contrast CLINICAL HISTORY: Reason for exam: PE. TECHNIQUE: Axial computed tomographic angiography images of the chest with intravenous contrast. CTDI is 11.87 mGy and DLP is 5.94 mGy-cm. Automated exposure control was utilized for the study. A dose lowering technique was utilized adhering to the principles of ALARA. MIP reconstructed images were created and reviewed. COMPARISON: No relevant prior studies available. FINDINGS: Pulmonary arteries: Unremarkable. No pulmonary embolism. Aorta: No acute findings. No thoracic aortic aneurysm. Lungs: Small bilateral pleural effusions. Associated atelectasis. Pleural space: See above. No pneumothorax. Heart: Moderate coronary calcifications. Moderate atherosclerotic calcifications of the arch and great vessels. No cardiomegaly. No significant pericardial effusion. No evidence of RV dysfunction. Bones/joints: No acute fracture. No dislocation. Soft tissues: Unremarkable. Lymph nodes: Unremarkable. No enlarged lymph nodes. Tubes, lines and devices: Right-sided chest port. Other findings: Please see CT abdomen pelvis also today regarding abdominal findings. IMPRESSION: 1. No evidence of pulmonary embolism. 2. Small bilateral pleural effusions. Associated atelectasis. 3. Please see CT abdomen pelvis also today regarding abdominal findings. Electronically signed by: Angie Willoughby M.D. 02/19/24 02:00 AM
--- NOTE | 2024-02-19 02:20 | CT Scan Report ---
Exam(s): CT ABDOMEN + PELVIS With Contrast IV Amt: 116 ml opti 320 EXAM: CT Abdomen and Pelvis With Intravenous Contrast CLINICAL HISTORY: Reason for exam: fever, abd pain, known ca. TECHNIQUE: Axial computed tomography images of the abdomen and pelvis with intravenous contrast. CTDI is 22.94 mGy and DLP is 1256.98 mGy-cm. Automated exposure control was utilized for the study. A dose lowering technique was utilized adhering to the principles of ALARA. CONTRAST: Patient received 116 ml opti 320 of IV contrast COMPARISON: CT Abdomen Pelvis dated 05/07/2022, CT chest dated 09/14/2019 FINDINGS: Lung bases: Please see CTA chest also today. Mediastinum: Small hiatal hernia. ABDOMEN: Liver: Numerous new irregular low-density/heterogeneous lesions throughout the liver, new since the prior. Larger lesions measure up to 3 cm. Nodular liver contour/cirrhosis, new since the prior. Gallbladder and bile ducts: Small gallbladder calcifications/stones. No ductal dilation. Pancreas: Unremarkable. No mass. No ductal dilation. Spleen: Unremarkable. No splenomegaly. Adrenals: Similar size of the heterogeneous 2.8 cm left adrenal nodule as on both priors. New central low-density appearance. Kidneys and ureters: Stable small left renal cyst. No hydronephrosis. Stomach and bowel: Colonic diverticulosis. Mild wall thickening of proximal small bowel loops in the left abdomen. No obstruction. PELVIS: Appendix: Normal appendix. Bladder: Bladder wall thickening versus partial distention. Reproductive: Unremarkable as visualized. ABDOMEN and PELVIS: Intraperitoneal space: Moderate ascites in the abdomen and pelvis, new since the prior. No free air. Bones/joints: No acute fracture. No dislocation. Soft tissues: Unremarkable. Vasculature: Stable appearance of aortoiliac stent graft. No abdominal aortic aneurysm. Lymph nodes: Unremarkable. No enlarged lymph nodes. IMPRESSION: 1. Numerous new irregular low-density/heterogeneous lesions throughout the liver, new since the prior. Worrisome for malignancy/metastases. 2. Nodular liver contour/cirrhosis, new since the prior. 3. Moderate ascites in the abdomen and pelvis, new since the prior. 4. Similar size of the heterogeneous 2.8 cm left adrenal nodule as on both priors. New central low-density appearance. Superimposed metastasis not excluded. 5. Colonic diverticulosis. 6. Mild wall thickening of proximal small bowel loops in the left abdomen. Nonspecific. May represent enteritis/hepatic enteropathy. Electronically signed by: Angie Willoughby M.D. 02/19/24 02:20 AM
[2024-02-19] MEDS ORDERED: VANCOMYCIN CONSULT ACTIVE PRN ×2 (02:46→18:56)
[2024-02-19 03:33] LABS: Magnesium 1.4 mg/dl (1.7-2.4)
[2024-02-19 03:48] LABS: Thyroid Stimulating Hormone 2.098 uIu/ml (0.300-4.500)
--- NOTE | 2024-02-19 03:50 | History & Physical Report ---
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 Abnormal CT head, possible infarct History cerebral aneurysm status post embolization Patient without focal neurologic deficits. hx CAD AAA status post surgery hypertension, BP on the lower side hyperlipidemia, on statin Rx chronic anemia, hemoglobin at baseline chronic thrombocytopenia secondary to liver disease/chemotherapy Hyperglycemia likely prediabetes, hemoglobin A1c of 5.8 this year past tobacco abuse Medical telemetry CS, Zosyn for GI source, daptomycin to cover potential vascular device related infection Follow lactic acid response to albumin Diagnostic and therapeutic paracentesis post platelet transfusion MRCP abnormal LFTs GI consult re: abnormal LFTs, new cirrhosis diagnosis MRI brain re: abnormal CT head Further management contingent on above workup results DVT prophylaxis. SCDs re: thrombocytopenia DNR Patient son requesting updates providers. Mr. Escobar, contact #[phone]. Text document was generated using [employer] voice recognition software. It may contain grammatical or spelling errors. Kindly contact undersigned for clarification of any documentation item in question. History of Present Illness Chief Complaint: Abdominal pain, weakness Primary Care Provider: Mauro Watson DO History obtained from patient, family, and records. 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 Last confinement April 2022 for post colonoscopy abdominal pain. Patient diagnosed to have liver mets with unknown primary and high CEA level last November 2022. Chemotherapy initiated. Subsequent cancer type ID favoring lung adenocarcinoma as per oncology records. Recent outpatient CT abdomen pelvis 2 weeks ago showed stable hepatic mets, abdominal and pelvic free fluid, left adrenal nodule presumed mets, portal hypertension. Outpatient GI referral contemplated by oncologist as per patient. Patient noted achy abdominal discomfort and distention the last few days. No chest pain. SOB more than usual with dry cough symptoms. Patient skin noted to be yellow by family. Patient somewhat confused. Fever chills at home. Vancomycin and cefepime administered at the ER. Medical History as above Surgical History : AAA repair, hemorrhoidectomy, vascular procedures Family History : Heart disease, lung cancer, colorectal cancer, AAA Personal/Social history : Past tobacco abuse, occasional EtOH intake, retired businessman Allergies Allergy/AdvReac Type Severity Reaction Status Date / Time aspirin AdvReac Intermediate HIGH Verified 05/07/22 19:19 DOSES---PRONE TO BLEEDING Home Medications Medication Instructions Recorded Confirmed Type aspirin 81 mg tablet,delayed 81 mg PO DAILY 06/20/19 02/19/24 History release atorvastatin 40 mg tablet 40 mg PO HS 06/20/19 02/19/24 History metoprolol tartrate 25 mg tablet 12.5 mg PO BID 06/20/19 02/19/24 History amlodipine 5 mg tablet 5 mg PO DAILY 09/14/19 02/19/24 History gabapentin 600 mg tablet 600 mg PO TID 05/07/22 02/19/24 History acetaminophen 325 mg tablet 650 mg (2 x 325 mg) PO Q4H PRN 05/08/22 02/19/24 Rx fever or pain #30 tabs folic acid 1 mg tablet 1 mg PO QAM 02/19/24 02/19/24 History furosemide 20 mg tablet 20 mg PO QAM 02/19/24 02/19/24 History omeprazole 20 mg capsule,delayed 20 mg PO QAM 02/19/24 02/19/24 History release spironolactone 25 mg tablet 25 mg PO QAM 02/19/24 02/19/24 History Past Med/Surg History Problem List (Updated 02/19/24 @ 10:08 by Lorri Fay PA-C) Cirrhosis Severe sepsis Thrombocytopenia (Acute) Abdominal pain (Acute) Confusion (Acute) Fever (Acute) CAD (coronary artery disease) (Chronic) "cath 2010 - moderate CAD nuclear stress test 03/2015 - negative for ishcemia " Dyslipidemia (Chronic) HTN (hypertension) (Chronic) Abdominal aortic aneurysm (Chronic) Peripheral vascular disease (Chronic) History of adenomatous polyp of colon (Chronic) "tubular adenoma 11/23/15" AVM (arteriovenous malformation) of colon (Chronic) "colonoscopy 11/23/15" Carotid arterial disease (Chronic) S/P AAA repair (Chronic) Status post abdominal aortic aneurysm repair (Chronic) Status post hemorrhoidectomy Pre-syncope Weakness Medical History (Updated 02/19/24 @ 10:08 by Lorri Fay PA-C) Abdominal pain Aortic aneurysm Vertigo Cerebral aneurysm Surgical History No pertinent past surgical history Social History Smoking Status: Former smoker Tobacco Type: Cigarettes Second Hand Exposure: Yes; Hx Alcohol Use: Yes Alcohol type: hard liquor Hx Substance Use: No Preferred Language: Spanish Communication Ability: Effective 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 Beliefs That Will Affect Care: None marital status: Current Living Situation: Spouse Feels Safe at Home: Yes Safety Concerns: Feels Safe At This Time Assistive Devices: Glasses Review of Systems Review of Systems: As per HPI, all other systems reviewed and negative Physical Exam Physical Exam: GENERAL: Slightly uncomfortable, chronically ill, no respiratory distress SKIN: Pallor, warm HEENT: Alopecia, pale palpebral conjunctivae, no ptosis, dry buccal mucosa NECK : Supple, no tenderness CHEST : CTA, no tenderness HEART : Tachycardic,, no obvious murmurs ABDOMEN: Some distention, epigastric tenderness EXTREMITIES : Minimal LE swelling, no LE tenderness, no other conspicuous deformities noted NEUROLOGIC : Coherent, no facial asymmetry, no other gross focality Results & Data Results & Data Vital Signs (Past 12 Hours) Vital Signs Temp Pulse Pulse Resp BP BP Pulse Ox 02/19/24 03:00 112 H 16 108/74 92 02/19/24 02:29 115 H 02/19/24 02:15 116 H 14 128/74 92 02/19/24 01:09 117 H 16 93 02/19/24 00:54 122 H 13 91 02/19/24 00:03 121 H 18 117/88 91 02/18/24 23:33 119 H 17 119/74 92 02/18/24 23:00 121 H 16 110/78 93 02/18/24 22:20 133 H 02/18/24 22:00 96 02/18/24 22:00 135 H 18 133/84 96 02/18/24 21:33 02/18/24 21:33 36.5 C 156 H 20 95 O2 Del Method 02/19/24 03:00 Room Air 02/19/24 02:29 02/19/24 02:15 Room Air 02/19/24 01:09 Room Air 02/19/24 00:54 Room Air 02/19/24 00:03 Room Air 02/18/24 23:33 02/18/24 23:00 Room Air 02/18/24 22:20 02/18/24 22:00 Room Air 02/18/24 22:00 Room Air 02/18/24 21:33 Room Air 02/18/24 21:33 Room Air Laboratory Results Laboratory Results WBC 5.35 K/ul (4.8-10.8) 02/18/24 21:50 RBC 3.17 M/uL (4.70-6.10) L 02/18/24 21:50 Hgb 10.7 g/dl (14.0-18.0) L 02/18/24 21:50 Hct 33.1 % (42.0-52.0) L 02/18/24 21:50 MCV 104.4 fL (80.0-100.0) H 02/18/24 21:50 MCH 33.8 pg (25.0-34.0) 02/18/24 21:50 MCHC 32.3 g/dL (32.0-36.0) 02/18/24 21:50 RDW Std Deviation 62.3 fL (36.4-46.3) H 02/18/24 21:50 RDW Coeff of Annie 16.6 % (11.5-14.5) H 02/18/24 21:50 Plt Count 12 K/uL (130-400) L* 02/18/24 21:50 Absolute Nucleated RBC 0.05 K/uL (0.00-0.12) 02/18/24 21:50 Nucleated RBC % (auto) 0.9 % 02/18/24 21:50 Neutrophils % (Manual) 44 % 02/18/24 21:50 Lymphocytes % (Manual) 18 % 02/18/24 21:50 Reactive Lymphs % (Man) 29 % 02/18/24 21:50 Monocytes % (Manual) 9 % 02/18/24 21:50 Neutrophils # (Manual) 2.35 K/uL (1.40-6.50) 02/18/24 21:50 Total Absolute Neuts 2.35 K/uL (1.4-6.5) 02/18/24 21:50 Lymphocytes # (Manual) 0.96 K/uL (1.2-3.4) L 02/18/24 21:50 Reactive Lymphs # 1.55 K/uL 02/18/24 21:50 Total Abs Lymphocytes 2.51 K/uL (1.2-3.4) 02/18/24 21:50 Monocytes # (Manual) 0.48 K/uL (0.11-0.59) 02/18/24 21:50 Hypersegmented Neuts 1+ 02/18/24 21:50 Polychromasia 1+ 02/18/24 21:50 Tear Drop Cells 1+ 02/18/24 21:50 PT 12.6 Seconds (9.0-12.0) H 02/18/24 21:50 INR 1.2 (0.9-1.1) H 02/18/24 21:50 APTT 23 Seconds (21-31) 02/18/24 21:50 PTT Ratio 0.9 02/18/24 21:50 Sodium 134 mmol/L (136-145) L 02/18/24 21:50 Potassium 4.3 mmol/L (3.5-5.1) 02/18/24 21:50 Chloride 99 mmol/L (98-107) 02/18/24 21:50 Carbon Dioxide 24 mmol/L (21-32) 02/18/24 21:50 Anion Gap 11 (3-11) 02/18/24 21:50 BUN 28 mg/dl (6-23) H 02/18/24 21:50 Creatinine 1.23 mg/dl (0.6-1.4) 02/18/24 21:50 Est Cr Clr Drug Dosing Not Reportable 02/18/24 21:50 eGFR 61.61 02/18/24 21:50 BUN/Creatinine Ratio 22.8 (10-20) H 02/18/24 21:50 Glucose 122 mg/dl (70-99(Fasting)) H 02/18/24 21:50 Lactate 3.4 mmol/L (0.4-2.0) H* 02/19/24 00:57 Calcium 8.8 mg/dl (8.6-10.3) 02/18/24 21:50 Magnesium 1.4 mg/dl (1.7-2.4) L 02/18/24 21:50 Total Bilirubin 2.0 mg/dl (0.2-1.0) H 02/18/24 21:50 AST 182 U/L (13-39) H 02/18/24 21:50 ALT 88 U/L (7-52) H 02/18/24 21:50 Alkaline Phosphatase 330 U/L (34-104) H 02/18/24 21:50 Troponin I High Sens 17.4 pg/ml (0-20) 02/18/24 21:50 Total Protein 6.3 gm/dl (6.0-8.3) 02/18/24 21:50 Albumin 2.9 gm/dl (3.4-5.0) L 02/18/24 21:50 Globulin 3.4 gm/dl (2.5-4.0) 02/18/24 21:50 Albumin/Globulin Ratio 0.9 (0.9-2) 02/18/24 21:50 Procalcitonin 1.42 ng/ml (0-0.5) H 02/18/24 21:50 TSH 2.098 uIu/ml (0.300-4.500) 02/18/24 21:50 Adenovirus (PCR) Not Detected (NotDetected) 02/18/24 22:00 B. pertussis DNA (PCR) Not Detected (NotDetected) 02/18/24 22:00 B.parapertussis DNA PCR Not Detected (NotDetected) 02/18/24 22:00 C. pneumoniae DNA (PCR) Not Detected (NotDetected) 02/18/24 22:00 Coronavirus OC43 (PCR) Not Detected (NotDetected) 02/18/24 22:00 Coronavirus HKU1 (PCR) Not Detected (NotDetected) 02/18/24 22:00 Coronavirus 229E (PCR) Not Detected (NotDetected) 02/18/24 22:00 SARS-CoV-2 (PCR) Not Detected (NotDetected) 02/18/24 22:00 Coronavirus NL63 (PCR) Not Detected (NotDetected) 02/18/24 22:00 Human Metapneumovir PCR Not Detected (NotDetected) 02/18/24 22:00 Influenza Type A (PCR) Not Detected (NotDetected) 02/18/24 22:00 Influenza Type B (PCR) Not Detected (NotDetected) 02/18/24 22:00 M. pneumoniae (PCR) Not Detected (NotDetected) 02/18/24 22:00 Parainfluenza 1 (PCR) Not Detected (NotDetected) 02/18/24 22:00 Parainfluenza 2 (PCR) Not Detected (NotDetected) 02/18/24 22:00 Parainfluenza 3 (PCR) Not Detected (NotDetected) 02/18/24 22:00 Parainfluenza 4 (PCR) Not Detected (NotDetected) 02/18/24 22:00 RSV (PCR) Not Detected (NotDetected) 02/18/24 22:00 Entero/Rhino (PCR) Not Detected (NotDetected) 02/18/24 22:00 Blood Type B Positive 02/18/24 22:52 Antibody Screen NEGATIVE 02/18/24 22:[address] 02/18/24 22:19 CR Exam(s): CT HEAD Without Contrast EXAM: CT Head Without Intravenous Contrast CLINICAL HISTORY: Reason for exam: ams. TECHNIQUE: Axial computed tomography images of the head/brain without intravenous contrast. CTDI is 11.87 mGy and DLP is 5.94 mGy-cm. Automated exposure control was utilized for the study. A dose lowering technique was utilized adhering to the principles of ALARA. COMPARISON: CT Head dated 11/30/15, MRI dated 06/01/2019 FINDINGS: Brain: New peripheral low-density area in the right frontal lobe and insula. No intracranial hemorrhage. No midline shift. Mild volume loss with prominent ventricles and sulci. Mild periventricular white matter hypoattenuation likely reflects chronic small vessel disease. Ventricles: See above. Bones/joints: Unremarkable. No acute fracture. Soft tissues: Superficial lesion in the posterior scalp mildly increased in size. May be sebaceous cyst. Vasculature: Left supraclinoid ICA coiling as on the prior head CT. Associated streak artifact. Atherosclerotic calcifications of the cavernous carotid and vertebral arteries. No obvious dense vessel sign. Sinuses: Unremarkable as visualized. No acute sinusitis. Mastoid air cells: Unremarkable as visualized. No mastoid effusion. IMPRESSION: 1. New peripheral low-density area in the right frontal lobe and insula. May represent recent infarct. Underlying lesion not excluded. 2. Left supraclinoid ICA coiling as on the prior head CT. Communications: Verify Receipt Call Doctor Above results Electronically signed by: Angie Willoughby M.D. 02/19/24 00:55 AM Abdomen/Pelvis CT 02/18/24 22:30 Exam(s): CT ABDOMEN + PELVIS With Contrast IV Amt: 116 ml opti 320 EXAM: CT Abdomen and Pelvis With Intravenous Contrast CLINICAL HISTORY: Reason for exam: fever, abd pain, known ca. TECHNIQUE: Axial computed tomography images of the abdomen and pelvis with intravenous contrast. CTDI is 22.94 mGy and DLP is 1256.98 mGy-cm. Automated exposure control was utilized for the study. A dose lowering technique was utilized adhering to the principles of ALARA. CONTRAST: Patient received 116 ml opti 320 of IV contrast COMPARISON: CT Abdomen Pelvis dated 05/07/2022, CT chest dated 09/14/2019 FINDINGS: Lung bases: Please see CTA chest also today. Mediastinum: Small hiatal hernia. ABDOMEN: Liver: Numerous new irregular low-density/heterogeneous lesions throughout the liver, new since the prior. Larger lesions measure up to 3 cm. Nodular liver contour/cirrhosis, new since the prior. Gallbladder and bile ducts: Small gallbladder calcifications/stones. No ductal dilation. Pancreas: Unremarkable. No mass. No ductal dilation. Spleen: Unremarkable. No splenomegaly. Adrenals: Similar size of the heterogeneous 2.8 cm left adrenal nodule as on both priors. New central low-density appearance. Kidneys and ureters: Stable small left renal cyst. No hydronephrosis. Stomach and bowel: Colonic diverticulosis. Mild wall thickening of proximal small bowel loops in the left abdomen. No obstruction. PELVIS: Appendix: Normal appendix. Bladder: Bladder wall thickening versus partial distention. Reproductive: Unremarkable as visualized. ABDOMEN and PELVIS: Intraperitoneal space: Moderate ascites in the abdomen and pelvis, new since the prior. No free air. Bones/joints: No acute fracture. No dislocation. Soft tissues: Unremarkable. Vasculature: Stable appearance of aortoiliac stent graft. No abdominal aortic aneurysm. Lymph nodes: Unremarkable. No enlarged lymph nodes. IMPRESSION: 1. Numerous new irregular low-density/heterogeneous lesions throughout the liver, new since the prior. Worrisome for malignancy/metastases. 2. Nodular liver contour/cirrhosis, new since the prior. 3. Moderate ascites in the abdomen and pelvis, new since the prior. 4. Similar size of the heterogeneous 2.8 cm left adrenal nodule as on both priors. New central low-density appearance. Superimposed metastasis not excluded. 5. Colonic diverticulosis. 6. Mild wall thickening of proximal small bowel loops in the left abdomen. Nonspecific. May represent enteritis/hepatic enteropathy. Electronically signed by: Angie Willoughby M.D. 02/19/24 02:20 AM Chest CTA 02/18/24 22:30 Exam(s): CTA CHEST EXAM: CT Angiography Chest With Intravenous Contrast CLINICAL HISTORY: Reason for exam: PE. TECHNIQUE: Axial computed tomographic angiography images of the chest with intravenous contrast. CTDI is 11.87 mGy and DLP is 5.94 mGy-cm. Automated exposure control was utilized for the study. A dose lowering technique was utilized adhering to the principles of ALARA. MIP reconstructed images were created and reviewed. COMPARISON: No relevant prior studies available. FINDINGS: Pulmonary arteries: Unremarkable. No pulmonary embolism. Aorta: No acute findings. No thoracic aortic aneurysm. Lungs: Small bilateral pleural effusions. Associated atelectasis. Pleural space: See above. No pneumothorax. Heart: Moderate coronary calcifications. Moderate atherosclerotic calcifications of the arch and great vessels. No cardiomegaly. No significant pericardial effusion. No evidence of RV dysfunction. Bones/joints: No acute fracture. No dislocation. Soft tissues: Unremarkable. Lymph nodes: Unremarkable. No enlarged lymph nodes. Tubes, lines and devices: Right-sided chest port. Other findings: Please see CT abdomen pelvis also today regarding abdominal findings. IMPRESSION: 1. No evidence of pulmonary embolism. 2. Small bilateral pleural effusions. Associated atelectasis. 3. Please see CT abdomen pelvis also today regarding abdominal findings. Electronically signed by: Angie Willoughby M.D. 02/19/24 02:00 AM Diagnostic Findings EKG as per my interpretation :Rate 160, sinus tachycardia, LAD, LAFB, ST depression lateral leads
[2024-02-19 04:00] LABS: Lipase 57 U/L (11-82)
[2024-02-19] MEDS: ALBUMIN 25% 25 GM/100 ML VIAL IV ONE (04:32)
[2024-02-19] MEDS: VANCOMYCIN HCL 1,500 MG in SODIUM CHLORIDE 0.9% 500 ML IV ONE (04:40)
[2024-02-19 04:56] LABS: Albumin Globulin Ratio 0.8 (0.9-2); Albumin Level 2.4 gm/dl (3.4-5.0); BUN Creatinine Ratio 25.4 (10-20); Bilirubin,Total 1.9 mg/dl (0.2-1.0); Calcium 8.1 mg/dl (8.6-10.3); Creatinine Clr Calc Pharmacy 58.7 ml/min; Globulin 3.2 gm/dl (2.5-4.0); Potassium 4.2 mmol/L (3.5-5.1); Total Protein 5.6 gm/dl (6.0-8.3)
[2024-02-19 04:57] LABS: Hematocrit (blood only) 26.3 % (42.0-52.0); Hemoglobin 8.3 g/dl (14.0-18.0); Mean Corpuscular Hemoglobin 32.9 pg (25.0-34.0); Mean Corpuscular Hgb Conc 31.6 g/dL (32.0-36.0); Mean Corpuscular Volume 104.4 fL (80.0-100.0); Nucleated RBC # (auto) 0.03 K/uL (0.00-0.12); Nucleated RBC % (auto) 0.7 %; Platelet Count 9 K/uL (130-400); RDW Standard Deviation 64.5 fL (36.4-46.3); Red Blood Count 2.52 M/uL (4.70-6.10); White Blood Count 4.43 K/ul (4.8-10.8)
[2024-02-19 05:09] LABS: Immature Granulocytes # (auto) 0.03 K/uL (0.01-0.20); Immature Granulocytes % (auto) 0.7 %; Lymphocytes # (auto) 1.45 K/uL (1.20-3.40); Lymphocytes % (auto) 32.7 %; Monocytes # (auto) 0.72 K/uL (0.11-0.59); Monocytes % (auto) 16.3 %; Neutrophils # (auto) 2.23 K/uL (1.40-6.50); Neutrophils % (auto) 50.3 %; Polychromasia 1+
[2024-02-19] MEDS ORDERED: SODIUM CHLORIDE 0.9% 100 ML IV PRN (06:35)
--- NOTE | 2024-02-19 07:02 | XRay Report ---
XR chest 1V portable HISTORY: 73 years-old Male Dyspnea acute shortness of breath COMPARISON: CTA chest of same day TECHNIQUE: AP view of the chest FINDINGS: Right IJ Shixnp-b-Srfw catheter distal tip projects over the right atrium. Cardiac silhouette is mild ly enlarged. Small pleural effusions with mild bibasilar consolidation. No pneumothorax or overt pulm onary edema. Degenerative changes of the shoulders and spine. Mild left perihilar atelectasis. IMPRESSION: 1. Cardiomegaly without overt pulmonary edema. 2. Small pleural effusions with mild bibasilar atelectasis. ACT 112: Negative or not required by law. The above report was generated using voice recognition software. It may contain grammatical, syntax o r spelling errors. Electronically signed by: Willam Gordon M.D. 02/19/2024 7:00 AM
[2024-02-19 07:08] LABS: Estimated Average Glucose 103 mg/dl; Hemoglobin A1C 5.2 % (4.5-5.6)
[2024-02-19 07:25] LABS: Hypersegmented Neutrophils 1+; Tear Drop Cells 1+
[2024-02-19] MEDS: MAGNESIUM SULFATE / D5W 1 GM/100 ML BAG IV SCH (07:45)
[2024-02-19] MEDS: PROMETHAZINE 6.25 MG/50.25 ML BAG IV PRN (07:50)
[2024-02-19] MEDS ORDERED: METOPROLOL TARTRATE 25 MG TAB PO SCH (09:00)
[2024-02-19] MEDS: PIPERACILLIN/TAZOBACTAM 4.5 GM/100 ML BAG IV STA (09:01)
[2024-02-19] MEDS: amLODIPine BESYLATE 5 MG TAB PO SCH (09:02)
[2024-02-19] MEDS: METOPROLOL TARTRATE 25 MG TAB PO SCH (09:02)
[2024-02-19] MEDS: GABAPENTIN 400 MG CAP PO SCH (09:02)
[2024-02-19] MEDS: FOLIC ACID 1 MG TAB PO SCH (09:02)
[2024-02-19] MEDS: PANTOprazole 40 MG TAB PO SCH (09:03)
--- OUTSIDE RECORDS SUMMARY | 2024-02-19 09:18 | External Medical Summary | Summary of Care ---
Author Name Unknown Organization [facility] Address [address] [place] [address] Phone [phone] Care Team Providers Care Lead Project Engineer Name Role Phone Watson Mauro Leonardogordy Primary Care Provider Encounter Details Date Type Department Care Team (Late st Contact Info) Description 02/14/2024 Telephone Hematology/Oncology [facility] [address] [place] [address] Lasha Christine MD [address] [place] [address] Allergies Active Allergy Reactions Criticality Noted Date Comments Aspirin Bleeding High 11/26/2011 Significant hemorroidal bleed on aspirin,high doses Duloxetine Hcl Hypertension 01/26/2020 documented as of this encounter (statuses as of 02/14/2024) Medications Medication Sig Dispensed Refills Start Date End Date Status Acetaminophen 325 MG Oral Tablet (Tylenol) take 2 tablet by mouth every 4 hours if needed FOR FEVER OR PAIN 05/08/2022 Active Prochlorperazine Maleate 10 MG Oral Tablet (Compazine)Indication s: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) take 1 tablet by mouth every 6 hours if needed for nausea 30 Tablet 2 04/01/2023 Active amLODIPine Besylate 5 MG Oral Tablet (Norvasc)Indications: HTN, goal below 140/90 take 1 tablet by mouth once daily 90 Tablet 2 03/31/2023 Active Ondansetron HCl 8 MG Oral Tablet (Zofran)Indications:M etastatic 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 (HCC) take 1 tablet by mouth every 8 hours if needed for nausea 30 Tablet 2 05/07/2023 Active Lidocaine-Prilocaine 2.5-2.5 % External Cream (Emla)Indications:Met astatic 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 (HCC) APPLY TO SKIN OVER MEDIPORT & COVER 1HR PRIOR TO ACCESSING. 30 g 1 05/27/2023 Active Ondansetron HCl 8 MG Oral TabletIndications:Met astatic 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 (HCC),Cholangiocarcin jean claude (HCC) Take 1 Tablet by mouth every 8 hours as needed for Nausea. 30 Tablet 3 07/05/2023 Active Folic Acid 1 MG Oral TabletIndications:Met astatic 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 (HCC) Take 1 Tablet by mouth in the morning. 90 Tablet 3 09/13/2023 Active Gabapentin 600 MG Oral Tablet (Neurontin)Indication s:Lumbar radiculopathy Take 1 Tablet by mouth in the morning and 1 Tablet at noon and 1 Tablet before bedtime. 270 Tablet 3 10/29/2023 Active Venlafaxine HCl ER 37.5 MG Oral Tablet Extended Release 24 HourIndications:DDD (degenerative disc disease), lumbar,Lumbar radiculopathy,Spinal stenosis of lumbar region with neurogenic claudication Take 1 Tablet by mouth in the morning. 30 Tablet 2 11/05/2023 Active Metoprolol Tartrate 25 MG Oral Tablet (Lopressor)Indication s:HTN, goal below 140/90 Take 0.5 Tablets by mouth in the morning and 0.5 Tablets before bedtime. 90 Tablet 1 11/21/2023 Active dexAMETHasone 4 MG Oral TabletIndications:Met astatic 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 (HCC),Malignant neoplasm of left lung, unspecified part of lung (HCC) One tablet twice a day for 3 days only, starting one day before the chemotherapy. 36 Tablet 1 11/21/2023 Active Molnupiravir 200 MG Oral CapsuleIndications:CO VID-19 virus infection Take 4 Capsules by mouth in the morning and 4 Capsules before bedtime. 40 Capsule 12/10/2023 Active Prochlorperazine Maleate 10 MG Oral Tablet (Compazine)Indication s: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),Cholangiocarcin jean claude (HCC) Take 1 Tablet by mouth every 6 hours as needed for Nausea. 60 Tablet 2 12/12/2023 Active Omeprazole 20 MG Oral Capsule Delayed Release (PriLOSEC)Indications :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) Take 1 Capsule by mouth in the morning. 90 Capsule 3 02/11/2024 Active Furosemide 20 MG Oral Tablet (Lasix)Indications:Ma lignant neoplasm of left lung, unspecified part of lung (HCC),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) Take 1 Tablet by mouth in the morning. 30 Tablet 5 02/12/2024 Active Spironolactone 25 MG Oral Tablet (Aldactone)Indication s:Malignant neoplasm of left lung, unspecified part of lung (HCC),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) Take 1 Tablet by mouth in the morning. 30 Tablet 5 02/12/2024 Active oxyCODONE HCl 5 MG Oral Tablet (Oxy IR)Indications:Metast atic 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 (HCC) Take 1 Tablet by mouth every 4 hours as needed for Pain, Moderate. 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 05/05/2019 History of colon polyps 08/12/2018 ACEI/ARB contraindicated 09/21/2016 Carotid aneurysm, left 09/13/2015 Overview: S/p coil embolization Cerebral aneurysm, nonruptured 09/05/2015 AAA (abdominal aortic aneurysm) 06/20/2015 Overview: S/p repair Bilateral carotid artery disease 06/20/2015 Medical home patient encounter 05/19/2014 Hypertriglyceridemia 05/16/2012 CORON ATHEROSCL [place] CORON VESSEL 07/11/2010 Dyslipidemia, goal LDL below 70 07/11/2010 HTN, goal below 130/80 07/11/2010 Hearing loss 04/01/2009 Deviated nasal septum 04/01/2009 Bruxism, sleep-related 04/01/2009 Subjective tinnitus 04/01/2009 Temporomandibular joint disorders, unspecified 1 06/02/2008 Benign neoplasm of adrenal gland 10/08/2006 ADVANCE DIRECTIVE INFORMATION 10/23/2005 Overview: Information offered-patient declined IMPOTENCE, ORGANIC ORIGN 09/15/2001 FAMILY HX-GI MALIGNANCY - grandfather 08/14/1999 ADJ DISORDER W/DEPRES MOOD 07/14/1998 Insomnia 07/14/1998 Overview: ICD-10 update of inactive term documented as of this encounter (statuses as of 02/14/2024) Resolved Problems Problem Noted Date Diagnosed Date Resolved Date Atypical chest pain 01/20/2018 08/27/19 22 Lower GI bleeding 12/31/2015 02/14/2017 Palpitations 03/10/2015 05/03/2015 Tibial artery occlusion, left 01/14/2014 02/14/2017 Tibial artery occlusion, right 01/14/2014 02/14/2017 Encounter for examination fo r normal comparison and control in clinical research program 10/29/2011 02/22/2012 Overview: Diagnosis changed due to Research Module. Go to Snapshot for study details. Dyslipidemia, goal to be determined 04/07/2009 07/11/2010 Overview: Per Lipid Taxonomy. Vertigo 04/01/2009 11/12/2019 Benign neoplasm of colon 09/09/2006 Overview: adenomatous polyp--repeat 5 years Hemorrhoids, external without complications 08/14/1999 08/12/2018 Tobacco use disorder 08/14/1999 017 Overview: 07/11/10- down to under 1 ppd Mixed dyslipidemia 07/14/1998 9 Overview: Per Lipid Taxonomy. Malaise and fatigue 07/14/1998 02/15/20 17 documented as of this encounter (statuses as of 02/14/2024) Immunizations Name Administration Dates Next Due COVID-19 mRNA, LNP-s, No Pre serve, 2-Dose Series (Moderna) 12/13/2020,07/02/2020,06/04/2020 COVID-19, mRNA, LNP-s, PF, B ooster, 100mcg/0.5mg (Moderna) 05/11/2021 Covid-19, Mrna, Lnp-s, Pf, B ivalent, 50 Mcg, IM, 12 yrs and above (Moderna) 02/06/2022 Pneumococcal Conjugate Vacc, 13 Valent (Prevnar) 02/04/2017 Pneumococcal Polysaccharide PPV23 (Pneumovax) 02/17/2018,12/21/2011 Seasonal Influenza Vac., MDV , IM, 0.5 mL (Fluzone) 04/19/2014 Seasonal Influenza, High Dos e, Trivalent, PF, IM (Fluzone HD) 01/16/2024 Seasonal Influenza, PF, 6 M & above, IM , (FluLaval or Fluzone) 02/10/2018,02/04/2017 Seasonal Influenza, Quadriva lent Hd (Fluzone Hd) 01/02/2023,01/25/2021 Seasonal Influenza, Trivalen t, Adjuvanted, 65+ YRS, PF, (Fluad) 02/17/2019 TDAP, Age 7 and older, IM (Adacel) 01/13/2020,,09/30/2008 Zoster Vaccine Recombinant (Shingrix) 02/17/2019 ,08/29/2017 documented as of this encounter Social History Tobacco Use Types Packs/Day Years Used Date Smoking Tobacco: Former Cigarettes 1.5 35 0 06/10/1979 - 06/10/2014 Smokeless Tobacco: Never Comments:quit in 2014 Alcohol Use Standard Drinks/Week Comments Yes 0 (1 standard drink = 0.6 oz pure alcohol) one a day and then some days none AUDIT-C Answer Date Recorded Frequency of Alcohol Consumption 4 or more times a week 10/20/2019 Average Number of Drinks 1 or 2 020 Frequency of Binge Drinking Not on file 09/28 PHQ-2 Answer Date Recorded PHQ Adult Total Score 0 05/17/2022 Hunger Vital Sign Answer Date Recorded Within the past 12 months, y ou worried that your food would run out before you got the money to buy more. Never true 05/21/19 Within the past 12 months, t he food you bought just didn't last and you didn't have money to get more. Never true 05/21/2022 Utilities Answer Date Recorded Do you have trouble paying y our heating, water, or electric bill? (Adult - for ages 18 years and over) Not on file 10/15/2023 Is your family able to pay t he heat, water, or electric bill? (Household - for ages 0-17 years) Not on file 10/15/2023 Does your family have access to good internet? (Household - for ages 0-17 years) Not on file 10/15/2023 Social Connections Answer Date Recorded How often do you feel lonely or isolated from those around you? (Adult - for ages 18 years and over) Not on file 10/15/2023 Sex and Gender Information Value Date Recorded Sex Assigned at Male 10/20/2019 12:57 PM EDT Gender Identity Male 10/20/2019 12:57 PM EDT Sexual Orientation Straight 10/20/2019 12 :57 PM EDT Job Start Date Occupation Industry Not on file Not on file Not on file documented as of this encounter Functional Status Functional Status Response Date of Assess ment Are you deaf or do you have serious difficulty hearing? No 09/12/2015 Are you blind or do you have serious difficulty seeing, even when wearing glasses? No-bifocals 09/12/2015 Do you have serious difficul ty walking or climbing stairs? (5 years old or older) No 09/12/2015 Do you have difficulty dress ing or bathing? (5 years old or older) No 09/12/2015 Because of a physical, menta l, or emotional condition, do you have difficulty doing errands alone such as visiting a doctor s office or shopping? (15 years old or older) No 09/12/19 Cognitive Status Response Date of Assessm ent Because of a physical, menta l, or emotional condition, do you have serious difficulty concentrating, remembering, or making decisions? (5 years old or older) No 09/12/2015 documented as of this encounter Miscellaneous Notes * Telephone Encounter - Tia Shah OSA - 02/14/2024 9:58 AM EDT HEPATOLOGY REFERRAL OP [[id number]] (Order [id number]) Mp Vaughn 02/14/2024 9:43 AM Orders Only Description: 73 year old male Provider: Lasha Christine MD Department: HEM/ONC [facility] Order Information Date and Time Department Ordering/Authorizing 02/14/2024 9:45 AM Hem/Onc [facility] Lasha Christine MD Order Providers Authorizing Provider Encounter Provider ([id number]) Lasha Christine MD ([id number]) Lasha Christine MD Priority and Order Details Priority Class Within 10 days (routine) Referral Quantity Ordering Quantity 1 Collection Information Comments 73-year-old male, a case of liver metastatic disease, lung is considered primary site, on chemotherapy with Alimta and carboplatin. Recent imaging study shows findings suggest cirrhosis of liver, portal hypertension Would like to her Hepatology evaluation and management. Thanks. Dr. Lasha Christine Hem/Onc Order Questions Question Answer Referral Priority Within 10 days (routine) Where should this appointment be scheduled? [facility] For what condition is the patient being referred? Liver conditions Referral (Authorized) ID: [id number] Created on: 02/14/2024 Referred by Referred to Lasha Christine MD Gastroenterology Reason: Specialty Services Required Priority: Within 10 days (routine) Type: Evaluate & Treat - Unlimited Visits Visits Requested: 999 Decision Date: 02/14/2024 Start Date: 02/14/2024 Related Appointments None Associated Diagnoses 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) [C78.7, C80.1] - Primary Malignant neoplasm of left lung, unspecified part of lung (HCC) [C34.92] Other cirrhosis of liver (HCC) [K74.69] Encounter View Encounter documented in this encounter Plan of Treatment Upcoming Encounters Date Type Department Care Team (Late st Contact Info) Description 02/27/2024 7:40 AM EDT Laboratory Laboratory [address] [place], [place] [phone] Diane, Lab Scenery [address] [place], [place] [address] 02/27/2024 8:15 AM EDT Office Visit Hematology/Oncology [facility] [place] [address] [place] [phone] Lasha Christine MD [address] [place] [address] 02/27/2024 8:45 AM EDT Hem/Onc Treatment Hematology/Oncology Treatment, [place] [address] [place], [place] [phone] Diane, Chair 2 Hem Onc Scenery [address] [place] [address] 04/11/2024 1:20 PM EST Office Visit [facility] [address] [place] [address] Mauro Watson DO [address] [place] [address] 04/13/2024 8:30 AM EST Appointment Vascular Lab [facility] [place] [address] [place] [address] 04/13/2024 9:40 AM EST Office Visit Vascular Surg [place] [address] [place] [address] Margarito Cabrera MD [address] [place] [address] 08/13/2024 11:40 AM EDT Office Visit [facility] [address] [place] [address] Mauro Watson DO [address] [place] [address] Scheduled Procedures Name Priority Associated Diagnoses Date/Ti me INJECTION SPINE LUMBAR OR SACRAL Lumbar radiculopathy COLONOSCOPY FLEXIBLE PROXIMAL DIAGNOSTIC Recall History of colon polyps Health Maintenance Due Date Last Done Comments Cologuard 1994 Sigmoidoscopy 1994 Fecal Occult Blood Test 02/03/2001 02/04/2000, 02/02 Adult Wellness Visit 01/25/2022 01/25/2021 Depression Screening 05/17/2023 05/17/2022 Colonoscopy 11/03/2023 11/02/2022, 10/2022, 05/07/2022, Additional history exists Colorectal Cancer Screening 11/03/2023 COVID-19 Vaccine ( season) 2023 02/06/2022, 05/11/2021, 12/13/2020, Additional history exists GFR 02/05/2025 02/06/2024, 12/28, 12/26/2023, Additional history exists Albumin/Creatinine Ratio 05/17/2025 05/17/2022, 07/30 DTap/Tdap Vaccines (3 - Td or Tdap) 01/12/2030 01/13/2020, 06/08/2019, 09/30/2008 Pneumococcal Vaccine: 65+ Years Completed 02/17/2018, 02/04/2017, 12/21/2011 Zoster Vaccines Completed 02/17/2019, 08/29/2017 RETIRED - COLONOSCOPY-ANNUAL AGES 18-100 Discontinued 11/02/2022, 11/02/2022, 05/07/2022, Additional history exists RETIRED - COLONOSCOPY-EVERY 5 YRS AGES 18-100 Discontinued 11/02/2022, 11/02/2022, 05/07/2022, Additional history exists Influenza Vaccine (FLU shot) Completed 01/16/2024, 01/02/2023, 02/21/2022, Additional history exists HPV (Gardasil) Vaccine Aged Out No lo nger eligible based on patient's age to complete this topic Hepatitis B Vaccine Aged Out No longe r eligible based on patient's age to complete this topic MENINGOCOCCAL (MENACTRA/MENVEO) Aged Out No longer eligible based on patient's age to complete this topic documented as of this encounter Medical Devices Implanted Type Area Live Games Dealer Device Identifier Shelf Expiration Date Model / Serial / Lot Stent Main Body [id number]-32-13-[id number] - [id number] Implanted:Qty: 1 on 06/10/2014 [place] Ronal [place] [facility] [place] [employer] 04/07/2016 [id number]-[id number] / / Graft Iliac Leg Spirlz [id number] - [id number] Implanted:Qty: 1 on 06/10/2014 by Ronal [place]legos MD [place] [facility] [place]: Aorta [employer] 10/09/2015 [id number] / / [id number] Description: Graft Iliac Leg Spirlz [id number] - [id number] Implanted:Qty: 1 on 06/10/2014 by Ronal [place]legos MD [place] [facility] [place]: Femoral Artery [employer] 11/07/2016 [id number] / / [id number] Stent Polmer 29mm P3110 - [id number] Implanted:Qty: 1 on 06/10/2014 by Ronal [place] MD [place] [facility] [place]/A: Aorta JNJ : CORDIS ENDOVASC[employer] 07/26/2018 [id number] / / [id number] Codman Orbit Galaxy Coil 2.5mm X 3.5cm Implanted:Qty: 1 on 09/12/2015 by Arik Shin MD [place] [facility] [place]: Head [employer]NORA [employer] LENORA CODMAN 02/26/2017 [id number] / [id number] / [id number] Description:COMPLEX XTRASOFT detachable coil deployed left internal carotid artery Codman Orbit Galaxy Coil 2.5mm X 2.5cm Implanted:Qty: 1 on 09/12/2015 by Arik Shin MD [place] [facility] [place] Head LENORA [employer] LEONRA CODMAN 01/27/2016 [id number] / [id number] / [id number] Description:COMPLEX XTRASOFT detachable coil deployed left internal carotid artery aneurysm Codman [place] 2 Stent 4mm X 30mm Implanted:Qty: 1 on 09/12/2015 by Arik Shin MD [place] [facility] [place]: Head [employer]EN[employer]A [employer] LENORA DEPUY 03/26/2018 [id number] / [id number] / [id number] Description:Vascular reconst ruction device deployed in left internal carotid artery Codman Orbit Galaxy Coil 6mm X 20cm Implanted:Qty: 1 on 09/12/2015 by Arik Shin MD [place] [facility] [place]: Head [employer]A [employer]EN[employer]A CODMAN 09/26/2016 [id number] / [id number] / [id number] Description:COMPLEX FILL det achable coil deployed left internal carotid artery aneurysm Codman Orbit Galaxy Coil 4mm X 10cm Implanted:Qty: 1 on 09/12/2015 by Arik Shin MD [place] [facility] [place]: Head [employer]A [employer]MAN 10/27/2015 [id number] / [id number] / [id number] Description:COMPLEX XTRASOFT detachable coil deployed left internal carotid artery aneurysm Codman Orbit Galaxy Coil 3.5mm X 9cm Implanted:Qty: 1 on 09/12/2015 by Arik Shin MD [place] [facility] [place]: Head [employer]A [employer] LEN[employer]A [employer]ODMAN 12/28/2015 [id number] / [id number] / [id number] Description:COMPLEX XTRASOFT detachable coil deployed left internal carotid artery aneurysm Codman Orbit Galaxy Coil 3mm X 6cm Implanted:Qty: 1 on 09/12/2015 by Arik Shin MD [place] [facility] [place]: Head [employer]A [employer] L[employer]A [employer]ODMAN 04/28/2017 [id number] / [id number] / [id number] Description:COMPLEX XTRASOFT detachable coil deployed left internal carotid artery aneurysm Lens Intraoc 21.0 - [id number] - [id number] Implanted:Qty: 1 on 11/08/2020 by Yuri Bradley MD at OR [facility] Left: Eye [employer] LOMB 06/26/2025 [id number] / [id number] / [id number] Lens Intraoc 20.5 - [id number] - [id number] Implanted:Qty: 1 on 11/22/2020 by Yuri Bradley MD at OR [facility] Right: Eye [employer]CH [employer] LOMB 07/27/2025 [id number] / [id number] Clip Quick 2.8mm 230cm - [id number] Implanted:Qty: 3 on 03/29/2021 by Luciana Fernandez MD at ENDOSCOPY [facility] [employer] 08/27/2023 [id number] / / Sureclip 16mm 235cm - [id number] Implanted:Qty: 2 on 05/07/2022 by Luciana Fernandez MD at ENDOSCOPY [facility] Colon MICRO TECH ENDOSCOPY 07/06/2024 [id number] / / Power Port 8fr Sngl Lumen Plas - [id number] Implanted:Qty: 1 on 01/30/2023 by Koko Santiago MD at OR [facility] N/A: Chest CR BARD : PERIPHERAL VASCULAR 07/27/2024 [id number] / / [id number] Power Port 8fr Sngl Lumen Plas - [id number] Implanted:Qty: 1 on 01/30/2023 by Koko Santiago MD at OR [facility] CR BARD : PERIPHERAL VASCULAR [id number] 07/27/2024 [id number] / / [id number] documented as of this encounter Advance Directives * Full Code (Latest Code Status on File) Date Activated Date Inactivated Comments 09/12/2015 11:01 AM 09/13/2015 2:50 PM This order reflects the patients wishes and were consensually agreed upon. * Full Code Date Activated Date Inactivated Comments 06/10/2014 10:48 AM 06/11/2014 8:37 PM This order reflects the patients wishes and were consensually agreed upon. Care Teams Lead Project Engineer Relationship Specialty Start Date End Date Mauro Watson DO [facility] [place] [address] PCP - General Family Medicine 04/13/19 documented as of this encounter
--- OUTSIDE RECORDS SUMMARY | 2024-02-19 09:18 | External Medical Summary | Summary of Care ---
Author Name Unknown Organization [facility] Address [address] [place] [address] Phone [phone] Care Team Providers Care Metal Reclamation Kettle Tender Name Role Phone Watson Mauro Leonardogordy Primary Care Provider Encounter Details Date Type Department Care Team (Late st Contact Info) Description 02/14/2024 Telephone Hematology/Oncology [facility] [address] [place] [address] Lasha Christine MD [address] [place] [address] Allergies Active Allergy Reactions Criticality Noted Date [...] EGFR 72 Lumbar radiculopathy 05/27/2019 Atherosclerosis of [place] co ronary artery of [place] heart with angina pectoris 05/05/2019 History of colon polyps 08/12/2018 ACEI/ARB contraindicated 09/21/2016 Carotid aneurysm, left 09/13/2015 Overview: S/p coil embolization Cerebral aneurysm, nonruptured 09/05/2015 AAA (abdominal aortic aneurysm) 06/20/2015 Overview: S/p repair Bilateral carotid artery disease 06/20/2015 Medical home patient encounter 05/19/2014 Hypertriglyceridemia 05/16/2012 CORON ATHEROSCL [place] CORON VESSEL 07/11/2010 Dyslipidemia, goal LDL below [...] encounter Miscellaneous Notes * Telephone Encounter - Clari Barrera OSA - 02/14/2024 3:58 PM EDT Lmm JOSE Lanza 02/14/2024 3:58 PM * Telephone Encounter - Tia Shah OSA - 02/14/2024 9:58 AM EDT HEPATOLOGY REFERRAL OP [[id number]] (Order [id number]) Mp Vaughn 02/14/2024 9:43 AM Orders Only Description: 73 year old male Provider: Lasha Christine MD Department: HEM/ONC [facility] Order Information Date and Time Department Ordering/Authorizing 02/14/2024 9:45 AM Hem/Onc [facility] Lasha Christine MD Order Providers Authorizing Provider Encounter Provider ([id number]) Lasha Christine MD ([id number]) Lasha Christine MD Priority and Order Details [...] being referred? Liver conditions Referral (Authorized) ID: [id number] Created on: 02/14/2024 Referred by Referred to [...] Description 02/27/2024 7:40 AM EDT Laboratory Laboratory [facility] [place] [address] [place] [phone] Diane, Lab [address]en[address] [place] [address] 02/27/2024 8:15 AM EDT Office Visit Hematology/Oncology [facility] [place] [address] [place] [phone] Lasha Christine MD [address] [place] [address] 02/27/2024 8:45 AM EDT Hem/Onc Treatment Hematology/Oncology Treatment, [place] [address] [place], [place] [phone] Diane, Chair 2 Hem Onc [facility] [address] [facility] [place] [address] 04/11/2024 1:20 PM EST Office Visit [facility] [address] [facility] [place] [address] Mauro Watson DO [address] [place] [address] 04/13/2024 8:30 AM EST Appointment Vascular Lab [place] [address] [place] [address] 04/13/2024 9:40 AM EST Office Visit Vascular Surg [place] [address] [place] [address] Margarito Cabrera MD [address] [place] [address] 08/13/2024 11:40 AM EDT Office Visit Family Practice [facility] [address] [place] [address] Mauro Watson DO [address] [place] [address] Scheduled Procedures Name Priority Associated Diagnoses Date/Ti [...] this encounter Medical Devices Implanted Type Area Property Supervisor Device Identifier Shelf Expiration Date Model / Serial / Lot Stent Main Body Hkfi-73-53-[id number] - [id number] Implanted:Qty: 1 on 06/10/2014 by Ronal Gallegos MD at OR [facility] Aorta [employer] 04/07/2016 TFFB-24-8 2-ZT / / Graft Iliac Leg Spirlz [id number] - [id number] Implanted:Qty: 1 on 06/10/2014 by Ronla Gallegos MD at OR [facility] Right: Aorta [employer] 10/09/2015 [id number] / / [id number] Description: Graft Iliac Leg Spirlz 44c91re - [id number] Implanted:Qty: 1 on 06/10/2014 by Ronal Gallegos MD at OR [facility] Right: Femoral Artery [employer] 11/07/2016 [id number] / / [id number] Stent Polmer 29mm P3110 - [id number] Implanted:Qty: 1 on 06/10/2014 by Ronal Gallegos MD at OR [facility] N/A: Aorta JNJ : CORDIS ENDOVASCULAR 07/26/2018 [id number] / / [id number] Codman Orbit Galaxy Coil 2.5mm X 3.5cm Implanted:Qty: 1 on 09/12/2015 by Arik Shin MD at OR [facility] Left: Head LENORA [employer] LENORA CODMAN 02/26/2017 [id number] / [id number] / [id number] Description:COMPLEX XTRASOFT detachable coil deployed left internal carotid artery Codman Orbit Galaxy Coil 2.5mm X 2.5cm Implanted:Qty: 1 on 09/12/2015 by Arik Shin MD at OR [facility] Left: Head LENORA & LENORA CODMAN 01/27/2016 [id number] / [id number] / [id number] Description:COMPLEX XTRASOFT detachable coil deployed left internal carotid artery aneurysm Codman [place] 2 Stent 4mm X 30mm Implanted:Qty: 1 on 09/12/2015 by Arik Shin MD at OR [facility] Left: Head LENORA & LENORA DEPUY 03/26/2018 [id number] / [id number] / [id number] Description:Vascular reconst ruction device deployed in left internal carotid artery Codman Orbit Galaxy Coil 6mm X 20cm Implanted:Qty: 1 on 09/12/2015 by Arik Shin MD at OR [facility] Left: Head LENORA [employer] LENORA CODMAN 09/26/2016 [id number] / [id number] / [id number] Description:COMPLEX FILL det achable coil deployed left internal carotid artery aneurysm Codman Orbit Galaxy Coil 4mm X 10cm Implanted:Qty: 1 on 09/12/2015 by Arik Shin MD at OR [facility] Left: Head LENORA [employer] LENORA CODMAN 10/27/2015 [id number] / [id number] / [id number] Description:COMPLEX XTRASOFT detachable coil deployed left internal carotid artery aneurysm Codman Orbit Galaxy Coil 3.5mm X 9cm Implanted:Qty: 1 on 09/12/2015 by Arik Shin MD at OR [facility] Left: Head LENORA & LENORA CODMAN 12/28/2015 [id number] / [id number] / [id number] Description:COMPLEX XTRASOFT detachable coil deployed left internal carotid artery aneurysm Codman Orbit Galaxy Coil 3mm X 6cm Implanted:Qty: 1 on 09/12/2015 by Arik Shin MD at OR [facility] Left: Head LENORA & LENORA CODMAN 04/28/2017 [id number] / [id number] / [id number] Description:COMPLEX XTRASOFT detachable coil deployed left internal carotid artery aneurysm Lens Intraoc 21.0 - [id number] - [id number] Implanted:Qty: 1 on 11/08/2020 by Yuri Bradley MD at OR [facility] Left: Eye BAUSCH & LOMB 06/26/2025 [id number] / [id number] / [id number] Lens Intraoc 20.5 - [id number] - [id number] Implanted:Qty: 1 on 11/22/2020 by Yuri Bradley MD at OR [facility] Right: Eye BAUSCH & LOMB 07/27/2025 [id number] / [id number] / [id number] Clip Quick 2.8mm 230cm - [id number] Implanted:Qty: 3 on 03/29/2021 by Luciana Fernandez MD at ENDOSCOPY [facility] [employer] 08/27/2023 HX-202UR. A / / Sureclip 16mm 235cm - [id number] Implanted:Qty: 2 on 05/07/2022 by Luciana Fernandez MD at ENDOSCOPY [facility] Colon MICRO TECH ENDOSCOPY 07/06/2024 [id number] / / Power Port 8fr Sngl Lumen Plas - [id number] Implanted:Qty: 1 on 01/30/2023 by Koko Santiago MD at OR [facility] N/A: Chest CR BARD : PERIPHERAL VASCULAR 07/27/2024 [id number] / / [id number] Power Port 8fr Sngl Lumen Plas - [id number] Implanted:Qty: 1 on 01/30/2023 by Koko Santiago MD at OR [facility] CR BARD : PERIPHERAL VASCULAR [id number] 07/27/2024 [id number] / / [id number] documented as of this encounter Advance Directives [...] and were consensually agreed upon. Care Teams Metal Reclamation Kettle Tender Relationship Specialty Start Date End Date Mauro Watson DO [address] [place] [address] PCP - General Family Medicine 04/13/19 documented as of this encounter
--- OUTSIDE RECORDS SUMMARY | 2024-02-19 09:18 | External Medical Summary | Summary of Care ---
Author Name Unknown Organization [facility] Address [address] [place] [address] Phone [phone] Care Team Providers Care Glass Checker Name Role Phone Watson Mauro Leonardogordy Primary Care Provider Reason for Visit * Reason Onset Date Comments Test Results Imaging Study 02/14/2024 CT Encounter Details Date Type Department Care Team (Late st Contact Info) Description 02/14/2024 Telephone Hematology/Oncology [facility] [address] [facility] [place] [phone] Lasha Christine MD [address] [place] [address] Test Results Imaging Study (CT ) Allergies Active Allergy Reactions Criticality Noted Date [...] EGFR 72 Lumbar radiculopathy 05/27/2019 Atherosclerosis of [place] co ronary artery of [place] heart with angina pectoris 05/05/2019 History of colon polyps 08/12/2018 ACEI/ARB contraindicated 09/21/2016 Carotid aneurysm, left 09/13/2015 Overview: S/p coil embolization Cerebral aneurysm, nonruptured 09/05/2015 AAA (abdominal aortic aneurysm) 06/20/2015 Overview: S/p repair Bilateral carotid artery disease 06/20/2015 Medical home patient encounter 05/19/2014 Hypertriglyceridemia 05/16/2012 CORON ATHEROSCL [place] CORON VESSEL 07/11/2010 Dyslipidemia, goal LDL below [...] (15 years old or older) No 09/12/19 16 Cognitive Status Response Date of Assessm ent Because of a physical, menta l, or emotional condition, do you have serious difficulty concentrating, remembering, or making decisions? (5 years old or older) No 09/12/2015 documented as of this encounter Miscellaneous Notes * Telephone Encounter - Lorri Matias RN - 02/14/2024 2:[address] Christine sent 2nd note regarding this with additional note: "I would like to have GI evaluation for cirrhosis of liver." * Telephone Encounter - Veronica Briones LPN - 02/14/2024 11:20 AM EDT My G sent. * Telephone Encounter - Veronica Briones LPN - 02/14/2024 11:12 AM EDT ----- Message from Lasha Christine MD sent at 02/14/2024 9:43 AM EDT ----- CT scan of chest, abdomen pelvis done on 02/05/2024: -no lung masses identified. -new trace right greater than left pleural effusion. -stable liver lesions, the largest one in the right lobe of the liver measuring about 3.6 cm which is stable. -enlarged spleen measuring about 15 cm noted -findings suggestive of cirrhosis of liver with portal hypertension. -ascites present. Overall new finding of cirrhosis of liver with splenomegaly, ascites but no progression of the cancer noted Recently we started him on a diuretic with Lasix and Aldactone. documented in this encounter Plan of Treatment Upcoming Encounters Date Type Department Care Team (Late st Contact Info) Description 02/27/2024 7:40 AM EDT Laboratory Laboratory [facility] Contreras [address] [place] [phone] Zeyad Contre[address] [place] [address] 02/27/2024 8:15 AM EDT Office Visit Hematology/Oncology [facility] [address] [place], [place] [phone] Lasha Christine MD [address] [facility] [address] 02/27/2024 8:45 AM EDT Hem/Onc Treatment [facility] [place] [facility] [phone] Diane, Chair 2 Hem Onc [facility] [address] [facility] [place] [address] 04/11/2024 1:20 PM EST Office Visit [facility] [address] [place] [address] Mauro Watson DO [address] [place] [address] 04/13/2024 8:30 AM EST Appointment Vascular Lab [place] [address] [place] [address] 04/13/2024 9:40 AM EST Office Visit Vascular Surg [facility] [address] [place] [address] Margarito Cabrera MD [address] [place] [address] 08/13/2024 11:40 AM EDT Office Visit [facility] [address] [place] [address] Mauro Watson DO [address] [place] [address] Scheduled Procedures Name Priority Associated Diagnoses Date/Ti [...] this encounter Medical Devices Implanted Type Area Engraver Set Up Operator Device Identifier Shelf Expiration Date Model / Serial / Lot Stent Main Body Rjak-42-67-Zt - [id number] Implanted:Qty: 1 on 06/10/2014 by Ronal Gallegos MD [place] [facility] Aorta [employer] 04/07/2016 TFFB-24-8 2-ZT / / Graft Iliac Leg Spirlz 16u45bp - [id number] Implanted:Qty: 1 on 06/10/2014 by Ronal Gallegos MD at [place] [facility] Right: Aorta [employer] 10/09/2015 [id number] / / [id number] Description: Graft Iliac Leg Spirlz 54k04zp - [id number] Implanted:Qty: 1 on 06/10/2014 by Ronal Gallegos MD at [place] [facility] Right: Femoral Artery [employer] 11/07/2016 [id number] / / [id number] Stent Polmer 29mm P3110 - [id number] Implanted:Qty: 1 on 06/10/2014 by Ronal Gallegos MD at [place] [facility] N/A: Aorta JNJ : CORDIS ENDOVASCULAR 07/26/2018 P3110 / / [id number] Codman Orbit Galaxy Coil 2.5mm X 3.5cm Implanted:Qty: 1 on 09/12/2015 by Arik Shin MD at [place] [facility] Left: Head LENORA [employer] LENORA CODMAN 02/26/2017 [id number] / [id number] / [id number] Description:COMPLEX XTRASOFT detachable coil deployed left internal carotid artery Codman Orbit Galaxy Coil 2.5mm X 2.5cm Implanted:Qty: 1 on 09/12/2015 by Arik Shin MD at [place] [facility] Left: Head LEN[employer]A [employer] LENORA CODMAN 01/27/2016 [id number] / [id number] / [id number] Description:COMPLEX XTRASOFT detachable coil deployed left internal carotid artery aneurysm Codman [place] 2 Stent 4mm X 30mm Implanted:Qty: 1 on 09/12/2015 by Arik Shin MD at [place] [facility] Left: Head LENORA [employer] LENORA DEPUY 03/26/2018 [id number] / [id number] / [id number] Description:Vascular reconst ruction device deployed in left internal carotid artery Codman Orbit Galaxy Coil 6mm X 20cm Implanted:Qty: 1 on 09/12/2015 by Arik Shin MD at [place] [facility] Left: Head LEN[employer]A [employer] LEN[employer]A CODMAN 09/26/2016 [id number] / [id number] / [id number] Description:COMPLEX FILL det achable coil deployed left internal carotid artery aneurysm Codman Orbit Galaxy Coil 4mm X 10cm Implanted:Qty: 1 on 09/12/2015 by Arik Shin MD at [place] [facility] Left: Head LENORA [employer] LEN[employer]A CODMAN 10/27/2015 [id number] 0 / [id number] / [id number] Description:COMPLEX XTRASOFT detachable coil deployed left internal carotid artery aneurysm Codman Orbit Galaxy Coil 3.5mm X 9cm Implanted:Qty: 1 on 09/12/2015 by Arik Shin MD at [place] [facility] Left: Head LENORA [employer] LENORA CODMAN 12/28/2015 [id number] / [id number] / [id number] Description:COMPLEX XTRASOFT detachable coil deployed left internal carotid artery aneurysm Codman Orbit Galaxy Coil 3mm X 6cm Implanted:Qty: 1 on 09/12/2015 by Arik Shin MD at [place] [facility] Left: Head LENORA [employer] LENORA CODMAN 04/28/2017 [id number] / [id number] / [id number] Description:COMPLEX XTRASOFT detachable coil deployed left internal carotid artery aneurysm Lens Intraoc 21.0 - [id number] - [id number] Implanted:Qty: 1 on 11/08/2020 by Yuri Bradley MD at OR [facility] Left: Eye BAUSCH & LOMB 06/26/2025 [id number] / [id number] / [id number] Lens Intraoc 20.5 - [id number] - [id number] Implanted:Qty: 1 on 11/22/2020 by Yuri Bradley MD at OR [facility] [address] Right: Eye BAUSCH & LOMB 07/27/2025 [id number] / [id number] / [id number] Clip Quick 2.8mm 230cm - [id number] Implanted:Qty: 3 on 03/29/2021 by Luciana Fernandez MD at ENDOSCOPY [facility] [address] [employer]PS [employer] 08/27/2023 HX-202UR. A / / Sureclip 16mm 235cm - [id number] Implanted:Qty: 2 on 05/07/2022 by Luciana Fernandez MD at ENDOSCOPY [facility] Colon MICRO TECH ENDOSCOPY 07/06/2024 [id number] / / Power Port 8fr Sngl Lumen Plas - [id number] Implanted:Qty: 1 on 01/30/2023 by Koko Santiago MD at OR [facility] N/A: Chest CR BARD : PERIPHERAL VASCULAR 07/27/2024 [id number] / / [id number] Power Port 8fr Sngl Lumen Plas - [id number] Implanted:Qty: 1 on 01/30/2023 by Koko Santiago MD at OR [facility] CR BARD : PERIPHERAL VASCULAR [id number] 07/27/2024 [id number] / / [id number] documented as of this encounter Advance Directives [...] and were consensually agreed upon. Care Teams Glass Checker Relationship Specialty Start Date End Date Mauro Watson DO [address] [place] [address] PCP - General Family Medicine 04/13/19 documented as of this encounter
--- OUTSIDE RECORDS SUMMARY | 2024-02-19 09:18 | External Medical Summary | Summary of Care ---
Author Name Unknown Organization [facility] Address [address] [place] [address] Phone [phone] Care Team Providers Care Applications Architect Name Role Phone Mauro Watson Primary Care Provider Reason for Referral * Evaluate & Treat - Unlimited Visits (Within 10 days (routine)) - Authorized Specialty Diagnoses / Procedures Referred By Contulises nelson Referred To Contact Gastroenterology Diagnoses 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) Malignant neoplasm of left lung, unspecified part of lung (HCC) Other cirrhosis of liver (HCC) Lasha Christine MD [address] [facility] [place] [address] Referral ID Status Reason Start Date Expiration Date Visits Requested Visits Authorized [id number] Authorized Specialty Services Required 4 999 999 Question Answer Referral Priority Within 10 days (routine) Where should this appointment be scheduled? [facility] For what condition is the patient being referred? Liver conditions Comments 73-year-old male, a case of liver metastatic disease, lung is considered primary site, on chemotherapy with Alimta and carboplatin. Recent imaging study shows findings suggest cirrhosis of liver, portal hypertension Would like to her Hepatology evaluation and management. Thanks. Dr. Lasha Christine Hem/Onc Encounter Details Date Type Department Care Team (Late st Contact Info) Description 02/14/2024 Orders Only Hematology/Oncology [facility] [address] [place] [phone] Lasha Christine MD [address] [place] [address] 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)*; Malignant neoplasm of left lung, unspecified part of lung (HCC); Other cirrhosis of liver (HCC) Allergies Active Allergy Reactions Criticality Noted Date [...] EGFR 72 Lumbar radiculopathy 05/27/2019 Atherosclerosis of [place] co ronary artery of [place] heart with angina pectoris 05/05/2019 History of colon polyps 08/12/2018 ACEI/ARB contraindicated 09/21/2016 Carotid aneurysm, left 09/13/2015 Overview: S/p coil embolization Cerebral aneurysm, nonruptured 09/05/2015 AAA (abdominal aortic aneurysm) 06/20/2015 Overview: S/p repair Bilateral carotid artery disease 06/20/2015 Medical home patient encounter 05/19/2014 Hypertriglyceridemia 05/16/2012 CORON ATHEROSCL [place] CORON VESSEL 07/11/2010 Dyslipidemia, goal LDL below [...] money to buy more. Never true 05/21/19 23 Within the past 12 months, t he [...] No 09/12/2015 documented as of this encounter Progress Notes * Lasha Christine MD - 02/14/2024 9:[address] scan of chest, abdomen pelvis done [...] on a diuretic with Lasix and Aldactone. I would like to have GI evaluation for cirrhosis of liver. documented in this encounter Plan of Treatment Upcoming Encounters Date Type Department Care Team (Late st Contact Info) Description 02/27/2024 7:40 AM EDT Laboratory Laboratory [facility] [address] [place], [place] [address] Diane, Lab Scenery [address] [place], [place] [address] 02/27/2024 8:15 AM EDT Office Visit Hematology/Oncology [facility] [place] [address] [place], [place] [phone] Lasha Christine MD [address] [place], [place] [address] 02/27/2024 8:45 AM EDT Hem[facility]c [facility] [address] [place], [place] [phone] Diane, Chair 2 Hem Onc Scenery [address] [facility] [place] [address] 04/11/2024 1:20 PM EST Office Visit [facility] [address] [facility] [place] [address] Mauro Watson DO 132 [facility] [place] [address] 04/13/2024 8:30 AM EST Appointment Vascular Lab [place] [address] [place] [address] 04/13/2024 9:40 AM EST Office Visit Vascular Surg [facility] [address] [place] [address] Margarito Cabrera MD [address] [place] [address] 08/13/2024 11:40 AM EDT Office Visit [facility] [address] [place] [address] Mauro Watson DO [address] [place] [address] Scheduled Procedures Name Priority Associated Diagnoses Date/Ti me INJECTION SPINE LUMBAR OR SACRAL Lumbar radiculopathy COLONOSCOPY FLEXIBLE PROXIMAL DIAGNOSTIC Recall History of colon polyps Scheduled Referrals Name Type Priority Associated Diagnoses Orde r Schedule HEPATOLOGY REFERRAL OP Referral Within 10 days (routine) 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) Malignant neoplasm of left lung, unspecified part of lung (HCC) Other cirrhosis of liver (HCC) Ordered: 02/14/2024 Health Maintenance Due Date Last Done Comments [...] this encounter Medical Devices Implanted Type Area Laboratory Chemical Assistant Device Identifier Shelf Expiration Date Model / Serial / Lot Stent Main Body [id number]-49-99-[id number] - [id number] Implanted:Qty: 1 on 06/10/2014 by Ronal Gallegos [place] [facility] Aorta [employer] 04/07/2016 TFFB-24-8 2-ZT / / Graft Iliac Leg Spirlz 00i00wt - [id number] Implanted:Qty: 1 on 06/10/2014 by Ronal Gallegos MD [place] [facility] Right: Aorta [employer] 10/09/2015 [id number] / / [id number] Description: Graft Iliac Leg Spirlz 52g46xx - [id number] Implanted:Qty: 1 on 06/10/2014 by Ronal Gallegos MD [place] [facility] Right: Femoral Artery [employer] 11/07/2016 [id number] / / [id number] Stent Polmer 29mm P3110 - [id number] Implanted:Qty: 1 on 06/10/2014 by Ronal Gallegos MD [place] [facility] N/A: Aorta JNJ : CORDIS ENDOVASCULAR 07/26/2018 P3110 / / [id number] Codman Orbit Galaxy Coil 2.5mm X 3.5cm Implanted:Qty: 1 on 09/12/2015 by Arik Shin MD at [place] [facility] Left: Head LENORA & LENORA CODMAN 02/26/2017 [id number] / [id number] / [id number] Description:COMPLEX XTRASOFT detachable coil deployed left internal carotid artery Codman Orbit Galaxy Coil 2.5mm X 2.5cm Implanted:Qty: 1 on 09/12/2015 by Arik Shin MD at [place] [facility] Left: Head LENORA & LENORA CODMAN 01/27/2016 [id number] / [id number] / [id number] Description:COMPLEX XTRASOFT detachable coil deployed left internal carotid artery aneurysm Codman [place] 2 Stent 4mm X 30mm Implanted:Qty: 1 on 09/12/2015 by Arik Shin MD at [place] [facility] Left: Head LENOAR & LENORA DEPUY 03/26/2018 [id number] / [id number] / [id number] Description:Vascular reconst ruction device deployed in left internal carotid artery Codman Orbit Galaxy Coil 6mm X 20cm Implanted:Qty: 1 on 09/12/2015 by Arik Shin MD at [place] [facility] Left: Head LENORA & LENORA CODMAN 09/26/2016 [id number] / [id number] / [id number] Description:COMPLEX FILL det achable coil deployed left internal carotid artery aneurysm Codman Orbit Galaxy Coil 4mm X 10cm Implanted:Qty: 1 on 09/12/2015 by Arik Shin MD at [place] [facility] Left: Head LENORA [employer] LENORA CODMAN 10/27/2015 [id number] / [id number] / [id number] Description:COMPLEX XTRASOFT detachable coil deployed left internal carotid artery aneurysm Codman Orbit Galaxy Coil 3.5mm X 9cm Implanted:Qty: 1 on 09/12/2015 by Arik Shin MD at [place] [facility] Left: Head LENORA & LENORA CODMAN 12/28/2015 [id number] / [id number] / [id number] Description:COMPLEX XTRASOFT detachable coil deployed left internal carotid artery aneurysm Codman Orbit Galaxy Coil 3mm X 6cm Implanted:Qty: 1 on 09/12/2015 by Arik Shin MD at [place] [facility] Left: Head LENORA [employer] LENORA CODMAN 04/28/2017 [id number] / [id number] / [id number] Description:COMPLEX XTRASOFT detachable coil deployed left internal carotid artery aneurysm Lens Intraoc 21.0 - [id number] - [id number] Implanted:Qty: 1 on 11/08/2020 by Yuri Bradley MD at OR [facility] Left: Eye BAUSCH & LOMB 06/26/2025 [id number] / [id number] / [id number] Lens Intraoc 20.5 - [id number] - [id number] Implanted:Qty: 1 on 11/22/2020 by Yuri Bradley MD at OR [facility] Right: Eye BAUSCH & LOMB 07/27/2025 [id number] / [id number] / [id number] Clip Quick 2.8mm 230cm - [id number] Implanted:Qty: 3 on 03/29/2021 by Luciana Fernandez MD at ENDOSCOPY [facility] [employer] 08/27/2023 HX-202UR. A / / Sureclip 16mm 235cm - [id number] Implanted:Qty: 2 on 05/07/2022 by Luciana Fernandez MD at ENDOSCOPY [facility] Colon MICRO TECH ENDOSCOPY 07/06/2024 [id number] / / Power Port 8fr Sngl Lumen Plas - [id number] Implanted:Qty: 1 on 01/30/2023 by Koko Santiago MD at OR [facility] N/A: Chest CR BARD : PERIPHERAL VASCULAR 07/27/2024 [id number] / / [id number] Power Port 8fr Sngl Lumen Plas - [id number] Implanted:Qty: 1 on 01/30/2023 by Koko Santiago MD at OR [facility] CR BARD : PERIPHERAL VASCULAR [id number] 07/27/2024 [id number] / / [id number] documented as of this encounter Visit Diagnoses Diagnosis 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)- Primary Malignant neoplasm of left lung, unspecified part of lung (HCC) Other cirrhosis of liver (HCC) documented in this encounter Advance Directives * Full Code (Latest Code Status on File) Date Activated Date Inactivated Comments 09/12/2015 11:01 AM 09/13/2015 2:50 PM This order reflects the patients wishes and were consensually agreed upon. * Full Code Date Activated Date Inactivated Comments 06/10/2014 10:48 AM 06/11/2014 8:37 PM This order reflects the patients wishes and were consensually agreed upon. Care Teams Applications Architect Relationship Specialty Start Date End Date Mauro Watson DO [address] [place] [address] PCP - General Family Medicine 04/13/19 documented as of this encounter
--- OUTSIDE RECORDS SUMMARY | 2024-02-19 09:18 | External Medical Summary | Summary of Care ---
Author Name Unknown Organization [facility] Address [address] [place] [address] Phone [phone] Care Team Providers Care Senior Contracts Administrator Name Role Phone Watson Mauro Leonardogordy Primary Care Provider Reason for Visit * Reason Onset Date Comments Test Results Imaging Study 02/14/2024 CT Encounter Details Date Type Department Care Team (Late st Contact Info) Description 02/14/2024 Telephone Hematology/Oncology [facility] [address] [place] [phone] Lasha Christine MD 200 [facility] [place] [address] Test Results Imaging Study (CT ) Allergies [...] EGFR 72 Lumbar radiculopathy 05/27/2019 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 05/05/2019 History of colon polyps 08/12/2018 ACEI/ARB contraindicated 09/21/2016 Carotid aneurysm, left 09/13/2015 Overview: S/p coil embolization Cerebral aneurysm, nonruptured 09/05/2015 AAA (abdominal aortic aneurysm) 06/20/2015 Overview: S/p repair Bilateral carotid artery disease 06/20/2015 Medical home patient encounter 05/19/2014 Hypertriglyceridemia 05/16/2012 CORON ATHEROSCL [place] CORON VESSEL 07/11/2010 Dyslipidemia, goal LDL below [...] encounter Miscellaneous Notes * Telephone Encounter - Veronica Briones LPN [...] Description 02/27/2024 7:40 AM EDT Laboratory Laboratory [facility] [place] [address] [place] [phone] [address] [facility] [place] [address] 02/27/2024 8:15 AM EDT Office Visit Hematology/Oncology [place] [phone] Lasha Christine MD 200 [facility] [place] [address] 02/27/2024 8:45 AM EDT Hem[facility] [address] [place] [address] Park, Chair 2 Hem Onc Scenery [address] [place] [address] 04/11/2024 1:20 PM EST Office Visit [facility] [address] [place] [address] Mauro Watson, [address] [place] [address] 04/13/2024 8:30 AM EST Appointment Vascular Lab [place] [address] [place] [address] 04/13/2024 9:40 AM EST Office Visit Vascular Surg [place] [address] [place] [address] Margarito Cabrera MD [address] [place] [address] 08/13/2024 11:40 AM EDT Office Visit [facility] [address] [place] [address] Mauro Watson, [address] [place] [address] Scheduled Procedures Name Priority Associated Diagnoses Date/Ti me INJECTION SPINE LUMBAR OR SACRAL Lumbar radiculopathy COLONOSCOPY FLEXIBLE PROXIMAL DIAGNOSTIC Recall History of colon polyps Health Maintenance Due Date Last Done Comments Cologuard 1994 Sigmoidoscopy 1994 Fecal Occult Blood Test 02/03/2001 02/04/2000, 02/02 Adult Wellness Visit 01/25/2022 01/25/2021 Depression Screening 05/17/2023 05/17/2022 Colonoscopy 11/03/2023 11/02/2022, 07/0 10/2022, 05/07/2022, Additional history exists Colorectal Cancer [...] this encounter Medical Devices Implanted Type Area Web Applications Programmer Device Identifier Shelf Expiration Date Model / Serial / Lot Stent Main Body Ikkz-64-18-Zt - [id number] Implanted:Qty: 1 on 06/10/2014 by Ronal Gallegos MD [place] [facility] [place] Aorta [employer] 04/07/2016 TFFB-24-8 2-ZT / / Graft Iliac Leg Spirlz 73g79ps - [id number] Implanted:Qty: 1 on 06/10/2014 by Ronal Gallegos MD at [place] [facility] [place] Right: Aorta [employer] 10/09/2015 [id number] / / [id number] Description: Graft Iliac Leg Spirlz 18m15ou - [id number] Implanted:Qty: 1 on 06/10/2014 by Ronal Gallegos MD at [place] [facility] [place] Right: Femoral Artery [employer] 11/07/2016 [id number] / / [id number] Stent Polmer 29mm P3110 - [id number] Implanted:Qty: 1 on 06/10/2014 by Ronal Gallegos MD at [place] [facility] [place] N/A: Aorta JNJ : CORDIS ENDOVASCULAR 07/26/2018 P3110 / / [id number] Codman Orbit Galaxy Coil 2.5mm X 3.5cm Implanted:Qty: 1 on 09/12/2015 by Arik Shin MD at [place] [facility] [place] Left: Head LENORA & LENORA CODMAN 02/26/2017 [id number] / [id number] / [id number] Description:COMPLEX XTRASOFT detachable coil deployed left internal carotid artery Codman Orbit Galaxy Coil 2.5mm X 2.5cm Implanted:Qty: 1 on 09/12/2015 by Arik Shin MD at [place] [facility] [place] Left: Head LENORA & LENORA [facility] 01/27/2016 [id number] / [id number] / [id number] Description:COMPLEX XTRASOFT detachable coil deployed left internal carotid artery aneurysm Codman [place] 2 Stent 4mm X 30mm Implanted:Qty: 1 on 09/12/2015 by Arik Shin MD at [place] [facility] [place] Left: Head LENORA & LENORA DEPUY 03/26/2018 [id number] / [id number] / [id number] Description:Vascular reconst ruction device deployed in left internal carotid artery Codman Orbit Galaxy Coil 6mm X 20cm Implanted:Qty: 1 on 09/12/2015 by Arik Shin MD at [place] [facility] [place] Left: Head LENORA [employer] LENORA CODMAN 09/26/2016 [id number] / [id number] / [id number] Description:COMPLEX FILL det achable coil deployed left internal carotid artery aneurysm Codman Orbit Galaxy Coil 4mm X 10cm Implanted:Qty: 1 on 09/12/2015 by Arik Shin MD at [place] [facility] [place] Left: Head LENORA & LENORA CODMAN 10/27/2015 [id number] 0 / [id number] / [id number] Description:COMPLEX XTRASOFT detachable coil deployed left internal carotid artery aneurysm Codman Orbit Galaxy Coil 3.5mm X 9cm Implanted:Qty: 1 on 09/12/2015 by Arik Shin MD at [place] [facility] [place] Left: Head LENORA & LENORA CODMAN 12/28/2015 [id number] / [id number] / [id number] Description:COMPLEX XTRASOFT detachable coil deployed left internal carotid artery aneurysm Codman Orbit Galaxy Coil 3mm X 6cm Implanted:Qty: 1 on 09/12/2015 by Arik Shin MD at [place] [facility] [place] Left: Head LENORA [employer] LENORA CODMAN 04/28/2017 [id number] / [id number] / [id number] Description:COMPLEX XTRASOFT detachable coil deployed left internal carotid artery aneurysm Lens Intraoc 21.0 - [id number] - [id number] Implanted:Qty: 1 on 11/08/2020 by Yuri Bradley MD at OR [facility] Left: Eye BAUSCH & LOMB 06/26/2025 [id number] / [id number] / [id number] Lens Intraoc 20.5 - [id number] - [id number] Implanted:Qty: 1 on 11/22/2020 by Yuri Bradley MD at OR [facility] Right: Eye BAUSCH & LOMB 07/27/2025 [id number] / [id number] / [id number] Clip Quick 2.8mm 230cm - [id number] Implanted:Qty: 3 on 03/29/2021 by Luciana Fernandez MD at ENDOSCOPY [facility] [employer] 08/27/2023 HX-202UR. A / / Sureclip 16mm 235cm - [id number] Implanted:Qty: 2 on 05/07/2022 by Luciana Fernandez MD at ENDOSCOPY [facility] Colon MICRO TECH ENDOSCOPY 07/06/2024 [id number] / / Power Port 8fr Sngl Lumen Plas - [id number] Implanted:Qty: 1 on 01/30/2023 by Koko Santiago MD at OR [facility] N/A: Chest CR BARD : PERIPHERAL VASCULAR 07/27/2024 [id number] / / [id number] Power Port 8fr Sngl Lumen Plas - [id number] Implanted:Qty: 1 on 01/30/2023 by Koko Santiago MD at OR [facility] BARD : PERIPHERAL VASCULAR [id number] 07/27/2024 [id number] / / [id number] documented as of this encounter Advance Directives [...] and were consensually agreed upon. Care Teams Senior Contracts Administrator Relationship Specialty Start Date End Date Mauro Watson DO [address] [place] [address] PCP - General Family Medicine 04/13/19 documented as of this encounter
--- OUTSIDE RECORDS SUMMARY | 2024-02-19 09:19 | External Medical Summary | Summary of Care ---
Author Name Unknown Organization [facility] Address [address] [place] [address] Phone [phone] Care Team Providers Care Cooperative Extension Agent Name Role Phone Watson Mauro Leonardogordy Primary Care Provider Reason for Visit * Reason Onset Date Comments Advice 02/07/2024 Emmett Encounter Details Date Type Department Care Team (Late st Contact Info) Description 02/07/2024 Telephone Hematology/Oncology [facility] [place] [address] [facility] [place] [phone] Lasha Christine MD [address] [facility] [place] [address] Advice (Emmett) Allergies Active Allergy Reactions Criticality Noted Date Comments Aspirin Bleeding High 11/26/2011 Significant hemorroidal bleed on aspirin,high doses Duloxetine Hcl Hypertension 01/26/2020 documented as of this encounter (statuses as of 02/10/2024) Medications Medication Sig Dispensed Refills Start Date End Date Status Acetaminophen 325 MG Oral Tablet (Tylenol) take 2 tablet by mouth every 4 hours if needed FOR FEVER OR PAIN 05/08/2022 Active Prochlorperazine Maleate 10 MG Oral Tablet (Compazine)Indicatio ns: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) take 1 tablet by mouth every 6 hours if needed for nausea 30 Tablet 2 04/01/2023 Active amLODIPine Besylate 5 MG Oral Tablet (Norvasc)Indications :HTN, goal below 140/90 take 1 tablet by mouth once daily 90 Tablet 2 03/31/2023 Active Ondansetron HCl 8 MG Oral Tablet (Zofran)Indications: 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 30 g 1 05/27/2023 Active Ondansetron HCl 8 MG Oral TabletIndications:Me tastatic 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 (HCC),Cholangiocarci noma (HCC) Take 1 Tablet by mouth every 8 hours as needed for Nausea. 30 Tablet 3 07/05/2023 Active oxyCODONE HCl 5 MG Oral Tablet (Oxy IR)Indications:Metas tatic 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 (HCC) Take 1 Tablet by mouth every 4 hours as needed for Pain, Moderate. 30 Tablet 08/19/2023 Active Additional Information Patient not taking.Reported on 11/05/2023 Folic Acid 1 MG Oral TabletIndications:Me tastatic 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 (HCC) Take 1 Tablet by mouth in the morning. 90 Tablet 3 09/13/2023 Active Gabapentin 600 MG Oral Tablet (Neurontin)Indicatio ns:Lumbar radiculopathy Take 1 Tablet by mouth in [...] Active Metoprolol Tartrate 25 MG Oral Tablet (Lopressor)Indicatio ns:HTN, goal below 140/90 Take 0.5 Tablets by mouth in the morning and 0.5 Tablets before bedtime. 90 Tablet 1 11/21/2023 Active dexAMETHasone 4 MG Oral TabletIndications:Me tastatic 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 (HCC),Malignant neoplasm of left lung, unspecified part of lung (HCC) One tablet twice a day for 3 days only, starting one day before the chemotherapy. 36 Tablet 1 11/21/2023 Active Molnupiravir 200 MG Oral CapsuleIndications:C OVID-19 virus infection Take 4 Capsules by mouth in the morning and 4 Capsules before bedtime. 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 60 Tablet 2 12/12/2023 Active Omeprazole 20 MG Oral Capsule Delayed Release (PriLOSEC)Indication s: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) Take 1 Capsule by mouth in the morning. 30 Capsule 5 01/20/2024 Active documented as of this encounter (statuses as of 02/10/2024) Active Problems Problem Noted Date Diagnosed Date Malignant neoplasm of left lung 08/23/2023 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 01/21/2023 Encounter for antineoplastic chemotherapy 2022 Medical marijuana use 08/26/2021 CKD (chronic kidney disease), stage II 2 Overview: EGFR 72 Lumbar radiculopathy 05/27/2019 Atherosclerosis of [place] co ronary artery of [place] heart with angina pectoris 05/05/2019 History of colon polyps 08/12/2018 ACEI/ARB contraindicated 09/21/2016 Carotid aneurysm, left 09/13/2015 Overview: S/p coil embolization Cerebral aneurysm, nonruptured 09/05/2015 AAA (abdominal aortic aneurysm) 06/20/2015 Overview: S/p repair Bilateral carotid artery disease 06/20/2015 Medical home patient encounter 05/19/2014 Hypertriglyceridemia 05/16/2012 CORON ATHEROSCL HOH CORON VESSEL 07/11/2010 Dyslipidemia, goal LDL below [...] as of this encounter (statuses as of 02/10/2024) Resolved Problems Problem Noted Date Diagnosed Date [...] as of this encounter (statuses as of 02/10/2024) Immunizations Name Administration Dates Next Due COVID-19 [...] encounter Miscellaneous Notes * Telephone Encounter - Rodriguez Mann RN - 02/10/2024 9:53 AM EDT I called the patient. He states that his legs are still swollen, no worse then Saturday, but he notices more discomfort in his abdomen. He states it's firm to touch and is a little worse than Saturday. He also states he is only awake for 2-3 hours at a time before he needs to sleep 2-3 hours. Overall patient hasn't been feeling well. Dr. Christine - Pt is agreeable to diuretics if you wish for him to start these. * Telephone Encounter - Lasha Christine MD - 02/08/2024 9:45 AM EDT Recently he had a CT scan of the chest, abdomen pelvis, result pending but I reviewed the images, he has developed ascites, lower level of albumin noted, appears to be cirrhosis of liver causing volume overload and perhaps causing leg edema. If you leg edema gets worse, will start Lasix and Aldactone. Please check with him early next week. Also waiting for the CT scan results. * Telephone Encounter - Rodriguez Mann RN - 02/07/2024 10:11 AM EDT Called patient. States he notices his left foot is swollen, denies redness, neuropathic pain only. Denies any redness, pain, swelling in the leg. States it shows slight improvement since yesterday but continues to be swollen. Denies any abnormal shortness of breath. Denies swelling in his right foot/leg. * Telephone Encounter - Dagmar Flores OSA - 02/07/2024 9:43 AM EDT Patient is calling to speak with a nurse, he has swelling in his left foot Please call him back to advise documented in this encounter Plan of Treatment Upcoming Encounters Date Type Department Care Team (Late st Contact Info) Description 02/27/2024 7:40 AM EDT Laboratory Laboratory [facility] [place] [address] [place], [place] [phone] Diane, Lab Scenery [address] [place], [place] [address] 02/27/2024 8:15 AM EDT Office Visit Hematology/Oncology [facility] [place] [address] [place] [phone] Lasha Christine MD [address] [place] [address] 02/27/2024 8:45 AM EDT Hem/Onc Treatment Hematology/Oncology [facility] [address] [place], [place] [phone] Diane, Chair 2 Hem Onc Scenery [address] [place] [address] 04/11/2024 1:20 PM EST Office Visit [facility] [address] [place] [address] Mauro Watson DO [address] [place] [address] 04/13/2024 8:30 AM EST Appointment Vascular Lab [address] [address] 04/13/2024 9:40 AM EST Office Visit Vascular Surg [place] [address] [place] [address] Margarito Cabrera MD [facility] [place] [address] 08/13/2024 11:40 AM EDT Office Visit [facility] [address] [place] [address] Mauro Watson DO [address] [place] [id number] Scheduled Procedures Name Priority Associated Diagnoses Date/Ti [...] this encounter Medical Devices Implanted Type Area Addresser Device Identifier Shelf Expiration Date Model / Serial / Lot Stent Main Body Vjwt-10-19-[id number] - [id number] Implanted:Qty: 1 on 06/10/2014 by Ronal Gallegos MD [place] [facility] [place] Aorta [employer] 04/07/2016 [id number]-24-8 2-[id number] / / Graft Iliac Leg Spirlz [id number] - [id number] Implanted:Qty: 1 on 06/10/2014 by Ronal Gallegos MD [place] [facility] [place] Right: Aorta [employer] 10/09/2015 [id number] / / [id number] Description: Graft Iliac Leg Spirlz 66b24bq - [id number] Implanted:Qty: 1 on 06/10/2014 by Ronal Gallegos MD at [place] [facility] [place] Right: Femoral Artery [employer] 11/07/2016 [id number] / / [id number] Stent Polmer 29mm P3110 - [id number] Implanted:Qty: 1 on 06/10/2014 by Ronal Gallegos MD at [place] [facility] [place] N/A: Aorta JNJ : [employer] 07/26/2018 [id number] / / [id number] Codman Orbit Galaxy Coil 2.5mm X 3.5cm Implanted:Qty: 1 on 09/12/2015 by Arik Shin MD at [place] [facility] [place] Left: Head [employer]A [employer] CODMAN 02/26/2017 [id number] / [id number] / [id number] Description:COMPLEX XTRASOFT detachable coil deployed left internal carotid artery Codman Orbit Galaxy Coil 2.5mm X 2.5cm Implanted:Qty: 1 on 09/12/2015 by Arik Shin MD at [place] [facility] [place] Left: Head [employer]A [employer]MAN 01/27/2016 [id number] / [id number] / [id number] Description:COMPLEX XTRASOFT detachable coil deployed left internal carotid artery aneurysm Codman Amana 2 Stent 4mm X 30mm Implanted:Qty: 1 on 09/12/2015 by Arik Shin MD at [place] [facility] [place] Left: Head [employer] LEN[employer]A DEPUY 03/26/2018 [id number] / [id number] / [id number] Description:Vascular reconst ruction device deployed in left internal carotid artery Codman Orbit Galaxy Coil 6mm X 20cm Implanted:Qty: 1 on 09/12/2015 by Arik Shin MD at [place] [facility] [place] Left: Head [employer] 09/26/2016 [id number] / [id number] / [id number] Description:COMPLEX FILL det achable coil deployed left internal carotid artery aneurysm Codman Orbit Galaxy Coil 4mm X 10cm Implanted:Qty: 1 on 09/12/2015 by Arik Shin MD at [place] [facility] [place] Left: Head [employer] 10/27/2015 [id number] / [id number] / [id number] Description:COMPLEX XTRASOFT detachable coil deployed left internal carotid artery aneurysm Codman Orbit Galaxy Coil 3.5mm X 9cm Implanted:Qty: 1 on 09/12/2015 by Arik Shin MD at [place] [facility] [place] Left: Head [employer] 12/28/2015 [id number] / [id number] / [id number] Description:COMPLEX XTRASOFT detachable coil deployed left internal carotid artery aneurysm Codman Orbit Galaxy Coil 3mm X 6cm Implanted:Qty: 1 on 09/12/2015 by Arik Shin MD at [place] [facility] [place] Left: Head [employer]A [employer]ODMAN 04/28/2017 [id number] / [id number] / [id number] Description:COMPLEX XTRASOFT detachable coil deployed left internal carotid artery aneurysm Lens Intraoc 21.0 - [id number] - [id number] Implanted:Qty: 1 on 11/08/2020 by Yuri Bradley MD at OR [facility] Left: Eye [employer] LOMB 06/26/2025 [id number] / [id number] / [id number] Lens Intraoc 20.5 - [id number] - [id number] Implanted:Qty: 1 on 11/22/2020 by Yuri Bradley MD at OR [facility] Right: Eye BAUSCH & LOMB 07/27/2025 [id number] / [id number] / [id number] Clip Quick 2.8mm 230cm - [id number] Implanted:Qty: 3 on 03/29/2021 by Luciana Fernandez MD at ENDOSCOPY [facility] [employer] 08/27/2023 [id number]-202UR. [id number] / / Sureclip 16mm 235cm - [id number] Implanted:Qty: 2 on 05/07/2022 by Luciana Fernandez MD at ENDOSCOPY [facility] Colon MICRO TECH ENDOSCOPY 07/06/2024 [id number] / / Power Port 8fr Sngl Lumen Plas - [id number] Implanted:Qty: 1 on 01/30/2023 by Koko Santiago MD at OR [facility] N/A: Chest CR BARD : PERIPHERAL VASCULAR 07/27/2024 [id number] / / [id number] Power Port 8fr Sngl Lumen Plas - [id number] Implanted:Qty: 1 on 01/30/2023 by Koko Santiago MD at OR [facility] CR BARD : PERIPHERAL VASCULAR [id number] 07/27/2024 [id number] / / [id number] documented as of this encounter Advance Directives [...] and were consensually agreed upon. Care Teams Cooperative Extension Agent Relationship Specialty Start Date End Date Mauro Watson DO [address] [place] [address] [place] [address] PCP - General Family Medicine 04/13/19 documented as of this encounter
--- OUTSIDE RECORDS SUMMARY | 2024-02-19 09:19 | External Medical Summary | Summary of Care ---
Author Name Unknown Organization [facility] Address [address] [place] [address] Phone [phone] Care Team Providers Care Kitchen Lead Name Role Phone Watson Mauro Leonardogordy Primary Care Provider Reason for Visit * Reason Onset Date Comments Medication Refill 02/11/2024 Encounter Details Date Type Department Care Team (Late st Contact Info) Description 02/11/2024 Refill Hematology/Oncology [facility] [address] [place] [address] Yvonne Giraldo CRNP [address] [facility] [place] [address] 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) Allergies Active Allergy Reactions Criticality Noted Date Comments Aspirin Bleeding High 11/26/2011 Significant hemorroidal bleed on aspirin,high doses Duloxetine Hcl Hypertension 01/26/2020 documented as of this encounter (statuses as of 02/11/2024) Medications Medication Sig Dispensed Refills Start Date End Date Status Acetaminophen 325 MG Oral Tablet (Tylenol) take 2 tablet by mouth every 4 hours if needed FOR FEVER OR PAIN 05/08/2022 Active Prochlorperazine Maleate 10 MG Oral Tablet (Compazine)Indicat ions: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) take 1 tablet by mouth every 6 hours if needed for nausea 30 Tablet 2 04/01/2023 Active amLODIPine Besylate 5 MG Oral Tablet (Norvasc)Indicatio ns:HTN, goal below 140/90 take 1 tablet by mouth once daily 90 Tablet 2 03/31/2023 Active Ondansetron HCl 8 MG Oral Tablet (Zofran)Indication s: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) take 1 tablet by mouth every 8 hours if needed for nausea 30 Tablet 2 05/07/2023 Active Lidocaine-Prilocai ne 2.5-2.5 % External Cream (Emla)Indications: 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) APPLY TO SKIN OVER MEDIPORT & COVER 1HR PRIOR TO ACCESSING. 30 g 1 05/27/2023 Active Ondansetron HCl 8 MG Oral TabletIndications: 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),Cholangiocar cinoma (HCC) Take 1 Tablet by mouth every 8 hours as needed for Nausea. 30 Tablet 3 07/05/2023 Active oxyCODONE HCl 5 MG Oral Tablet (Oxy IR)Indications:Met astatic 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 (HCC) Take 1 Tablet by mouth every 4 hours as needed for Pain, Moderate. 30 Tablet 08/19/2023 Active Additional Information Patient not taking.Reported on 11/05/2023 Folic Acid 1 MG Oral TabletIndications: 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) Take 1 Tablet by mouth in the morning. 90 Tablet 3 09/13/2023 Active Gabapentin 600 MG Oral Tablet (Neurontin)Indicat ions:Lumbar radiculopathy Take 1 Tablet by mouth in the morning and 1 Tablet at noon and 1 Tablet before bedtime. 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 30 Tablet 2 11/05/2023 Active Metoprolol Tartrate 25 MG Oral Tablet (Lopressor)Indicat ions:HTN, goal below 140/90 Take 0.5 Tablets by mouth in the morning and 0.5 Tablets before bedtime. 90 Tablet 1 11/21/2023 Active dexAMETHasone 4 MG Oral TabletIndications: 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),Malignant neoplasm of left lung, unspecified part of lung (HCC) One tablet twice a day for 3 days only, starting one day before the chemotherapy. 36 Tablet 1 11/21/2023 Active Molnupiravir 200 MG Oral CapsuleIndications :COVID-19 virus infection Take 4 Capsules by mouth in the morning and 4 Capsules before bedtime. 40 Capsule 12/10/2023 Active Prochlorperazine Maleate 10 MG Oral Tablet (Compazine)Indicat ions: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),Cholangiocar cinoma (HCC) Take 1 Tablet by mouth every 6 hours as needed for Nausea. 60 Tablet 2 12/12/2023 Active Omeprazole 20 MG Oral Capsule Delayed Release (PriLOSEC)Indicati ons: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) Take 1 Capsule by mouth in the morning. 90 Capsule 3 02/11/2024 Active Omeprazole 20 MG Oral Capsule Delayed Release (PriLOSEC)Indicati ons: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) Take 1 Capsule by mouth in the morning. 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 05/05/2019 History of colon polyps 08/12/2018 ACEI/ARB contraindicated 09/21/2016 Carotid aneurysm, left 09/13/2015 Overview: S/p coil embolization Cerebral aneurysm, nonruptured 09/05/2015 AAA (abdominal aortic aneurysm) 06/20/2015 Overview: S/p repair Bilateral carotid artery disease 06/20/2015 Medical home patient encounter 05/19/2014 Hypertriglyceridemia 05/16/2012 CORON ATHEROSCL [place] CORON VESSEL 07/11/2010 Dyslipidemia, goal LDL below [...] as of this encounter (statuses as of 02/11/2024) Resolved Problems Problem Noted Date Diagnosed Date [...] as of this encounter (statuses as of 02/11/2024) Immunizations Name Administration Dates Next Due COVID-19 [...] Telephone Encounter - Lorri Matias RN - 02/11/2024 3:32 PM EDTSigned Prescriptions: Disp Refills Omeprazole 20 MG Oral Capsule Delayed Rele*90 Cap*3 Sig: Take 1 Capsule by mouth in the morning.Authorizing Provider: YVONNE GIRALDO * Telephone Encounter - Veronica Briones LPN - 02/11/2024 3:15 PM EDT Fax request received from [facility] requesting a new script for Omeprazole DR 20 mg capsules, for a # 90-day supply with refills. Script pended below Last filled on 01/20/2024 documented in this encounter Plan of Treatment Upcoming Encounters Date Type Department Care Team (Late st Contact Info) Description 02/27/2024 7:40 AM EDT Laboratory Laboratory [facility] [place] [address] [place] [phone] Diane Lab [place] [address] [facility], [place] [address] 02/27/2024 8:15 AM EDT Office Visit Hematology/Oncology [facility] [place] [address] [place] [phone] Lasha Christine MD [address] [place] [address] 02/27/2024 8:45 AM EDT Hem/Onc Treatment Hematology/Oncology Treatment, [place] [address] [place], [place] [phone] Diane, Chair 2 Hem Onc [place] [address] [place] [address] 04/11/2024 1:20 PM EST Office Visit [facility] [address] [place] [address] Mauro Watson, [address] [place] [address] 04/13/2024 8:30 AM EST Appointment Vascular Lab [place] [address] [place] [address] 04/13/2024 9:40 AM EST Office Visit Vascular Surg [place] [address] [place] [address] Margarito Cabrera MD [address] [place] [address] 08/13/2024 11:40 AM EDT Office Visit [facility] [address] [place] [address] Mauro Watson, [address] [place] [address] Scheduled Procedures Name Priority Associated Diagnoses Date/Ti [...] this encounter Medical Devices Implanted Type Area Furnace Utility Operator Device Identifier Shelf Expiration Date Model / Serial / Lot Stent Main Body Gljr-57-60-Zt - [id number] Implanted:Qty: 1 on 06/10/2014 by Ronal Gallegos MD at OR [facility] Aorta [employer] 04/07/2016 TFFB-24-8 2-ZT / / Graft Iliac Leg Spirlz [id number] - [id number] Implanted:Qty: 1 on 06/10/2014 by Ronal Gallegos MD at OR [facility] Right: Aorta [employer] 10/09/2015 [id number] / / [id number] Description: Graft Iliac Leg Spirlz 26f58if - [id number] Implanted:Qty: 1 on 06/10/2014 by Ronal Gallegos MD at OR [facility] Right: Femoral Artery [employer] 11/07/2016 [id number] / / [id number] Stent Polmer 29mm P3110 - [id number] Implanted:Qty: 1 on 06/10/2014 by Ronal Gallegos MD at OR [facility] N/A: Aorta JNJ : [employer] 07/26/2018 P3110 / / [id number] Codman Orbit Galaxy Coil 2.5mm X 3.5cm Implanted:Qty: 1 on 09/12/2015 by Arik Shin MD at OR [facility] Left: Head [employer]A [employer] [facility] 02/26/2017 [id number] / [id number] / [id number] Description:COMPLEX XTRASOFT detachable coil deployed left internal carotid artery Codman Orbit Galaxy Coil 2.5mm X 2.5cm Implanted:Qty: 1 on 09/12/2015 by Arik Shin MD at OR [facility] Left: Head [employer]A [employer] 01/27/2016 [id number] / [id number] / [id number] Description:COMPLEX XTRASOFT detachable coil deployed left internal carotid artery aneurysm Codman [place] 2 Stent 4mm X 30mm Implanted:Qty: 1 on 09/12/2015 by Arik Shin MD at OR [facility] Left: Head LENORA [employer] LENORA DEPUY 03/26/2018 [id number] / [id number] / [id number] Description:Vascular reconst ruction device deployed in left internal carotid artery Codman Orbit Galaxy Coil 6mm X 20cm Implanted:Qty: 1 on 09/12/2015 by Arik Shin MD at OR [facility] Left: Head LENORA & LENORA [facility] 09/26/2016 [id number] / [id number] / [id number] Description:COMPLEX FILL det achable coil deployed left internal carotid artery aneurysm Codman Orbit Galaxy Coil 4mm X 10cm Implanted:Qty: 1 on 09/12/2015 by Arik Shin MD at OR [facility] Left: Head [employer]A [employer] LEN[employer]A [employer] 10/27/2015 [id number] / [id number] / [id number] Description:COMPLEX XTRASOFT detachable coil deployed left internal carotid artery aneurysm Codman Orbit Galaxy Coil 3.5mm X 9cm Implanted:Qty: 1 on 09/12/2015 by Arik Shin MD at OR [facility] Left: Head [employer]A [employer]A [employer] 12/28/2015 [id number] / [id number] / [id number] Description:COMPLEX XTRASOFT detachable coil deployed left internal carotid artery aneurysm Codman Orbit Galaxy Coil 3mm X 6cm Implanted:Qty: 1 on 09/12/2015 by Arik Shin MD at OR [facility] Left: Head L[employer]A [employer] LEN[employer]A [employer] 04/28/2017 [id number] / [id number] / [id number] Description:COMPLEX XTRASOFT detachable coil deployed left internal carotid artery aneurysm Lens Intraoc 21.0 - [id number] - [id number] Implanted:Qty: 1 on 11/08/2020 by Yuri Bradley MD at OR [facility] Left: Eye [employer] LOMB 06/26/2025 [id number] / [id number] / [id number] Lens Intraoc 20.5 - [id number] - [id number] Implanted:Qty: 1 on 11/22/2020 by Yuri Bradley MD at OR [facility] Right: Eye BAUSCH & LOMB 07/27/2025 [id number] / [id number] / [id number] Clip Quick 2.8mm 230cm - [id number] Implanted:Qty: 3 on 03/29/2021 by Luciana Fernandez MD at ENDOSCOPY [facility] [employer] 08/27/2023 HX-202UR. A / / Sureclip 16mm 235cm - [id number] Implanted:Qty: 2 on 05/07/2022 by Luciana Fernandez MD at ENDOSCOPY [facility] Colon MICRO TECH ENDOSCOPY 07/06/2024 [id number] / / Power Port 8fr Sngl Lumen Plas - [id number] Implanted:Qty: 1 on 01/30/2023 by Koko Santiago MD at OR [facility] N/A: Chest CR BARD : PERIPHERAL VASCULAR 07/27/2024 [id number] / / [id number] Power Port 8fr Sngl Lumen Plas - [id number] Implanted:Qty: 1 on 01/30/2023 by Koko Santiago MD at OR [facility] BARD : PERIPHERAL VASCULAR [id number] 07/27/2024 [id number] / / [id number] documented as of this encounter Visit Diagnoses Diagnosis 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) documented in this encounter Advance Directives [...] and were consensually agreed upon. Care Teams Kitchen Lead Relationship Specialty Start Date End Date Mauro Watson DO [address] [place] [address] PCP - General Family Medicine 04/13/19 documented as of this encounter
--- OUTSIDE RECORDS SUMMARY | 2024-02-19 09:19 | External Medical Summary | Summary of Care ---
Author Name Unknown Organization [facility] Address [address] [place] [address] Phone [phone] Care Team Providers Care Mastic Floor Layer Name Role Phone Julien Watsonvor Jordengordy Primary Care Provider Reason for Visit * Reason Onset Date Comments Advice 02/07/2024 Emmett Encounter Details Date Type Department Care Team (Late st Contact Info) Description 02/07/2024 Refill Hematology/Oncology [facility] [place] [address] [facility] [place] [phone] Lasha Christine MD [address] [facility] [place] [address] Malignant neoplasm of left lung, unspecified part of lung (HCC)*; 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) Allergies Active Allergy Reactions Criticality Noted Date Comments Aspirin Bleeding High 11/26/2011 Significant hemorroidal bleed on aspirin,high doses Duloxetine Hcl Hypertension 01/26/2020 documented as of this encounter (statuses as of 02/12/2024) Medications Medication Sig Dispensed Refills Start Date [...] as of this encounter (statuses as of 02/12/2024) Active Problems Problem Noted Date Diagnosed Date Malignant neoplasm of left lung 08/23/2023 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 01/21/2023 Encounter for antineoplastic chemotherapy 2022 Medical marijuana use 08/26/2021 CKD (chronic kidney disease), stage II 2 Overview: EGFR 72 Lumbar radiculopathy 05/27/2019 Atherosclerosis of [place] co ronary artery of squaxin heart with angina pectoris 05/05/2019 History of colon polyps 08/12/2018 ACEI/ARB contraindicated 09/21/2016 Carotid aneurysm, left 09/13/2015 Overview: S/p coil embolization Cerebral aneurysm, nonruptured 09/05/2015 AAA (abdominal aortic aneurysm) 06/20/2015 Overview: S/p repair Bilateral carotid artery disease 06/20/2015 Medical home patient encounter 05/19/2014 Hypertriglyceridemia 05/16/2012 CORON ATHEROSCL [place] CORON VESSEL 07/11/2010 Dyslipidemia, goal LDL below [...] as of this encounter (statuses as of 02/12/2024) Resolved Problems Problem Noted Date Diagnosed Date [...] as of this encounter (statuses as of 02/12/2024) Immunizations Name Administration Dates Next Due COVID-19 [...] as of this encounter Miscellaneous Notes * Addendum Note - Michelle Matias, RN - 02/12/2024 8:04 AM EDTAddended by: MICHELLE MATIAS on: 02/12/2024 08:04 AM Modules accepted: Orders * Telephone Encounter - Michelle Matias RN - 02/12/2024 7:58 AM EDT Reviewed with Dr Christine. Will order lasix 20mg PO and spironolactone 25mg PO daily. Called patient, he verbalized understanding. Also request rx for oxycodone- states that he has needed to take a few of these the last couple days, only has 3 tabs left. PDMP reviewed. Oxycodone filled 08/19/23 for 30 tabs. * Telephone Encounter - Rodriguez Mann RN [...] Description 02/27/2024 7:40 AM EDT Laboratory Laboratory [facility] [place] [address] [facility] [place] [phone] Diane, Lab [facility] [address] [place] [address] 02/27/2024 8:15 AM EDT Office Visit Hematology/Oncology [facility] [place] [address] [place] [address] Lasha Christine MD [address] [facility] [place] [address] 02/27/2024 8:45 AM EDT Hem/Onc Treatment Hematology/Oncology Treatment, [place] [address] [place] [phone] Diane, Chair 2 Hem Onc [facility] [address] [place] [address] 04/11/2024 1:20 PM EST Office Visit [facility] [address] [facility] [place] [address] Mauro Watson, DO [address] [place] [address] 04/13/2024 8:30 AM EST Appointment Vascular Lab [facility] [address] [place] [address] 04/13/2024 9:40 AM EST Office Visit Vascular Surg [facility] [address] [place] [address] Margarito Cabrera MD [address] [place] [address] 08/13/2024 11:40 AM EDT Office Visit [facility] [address] [place] [address] Mauro Watson, [address] [place] [address] Scheduled Procedures Name Priority Associated Diagnoses Date/Ti [...] this encounter Medical Devices Implanted Type Area Account Clerk Device Identifier Shelf Expiration Date Model / Serial / Lot Stent Main Body Rtnr-91-90-Zt - [id number] Implanted:Qty: 1 on 06/10/2014 by Ronal Gallegos MD at OR [facility] Aorta [employer] 04/07/2016 TFFB-24-8 2-ZT / / Graft Iliac Leg Spirlz 50v96yr - [id number] Implanted:Qty: 1 on 06/10/2014 by Ronal Gallegos MD at OR [facility] Right: Aorta [employer] 10/09/2015 [id number] / / [id number] Description: Graft Iliac Leg Spirlz 57l00eq - [id number] Implanted:Qty: 1 on 06/10/2014 by Ronal Gallegos MD at OR [facility] Right: Femoral Artery [employer] 11/07/2016 [id number] / / [id number] Stent Polmer 29mm P3110 - [id number] Implanted:Qty: 1 on 06/10/2014 by Ronal Gallegos MD at OR [facility] N/A: Aorta JNJ : CORDIS ENDOVASCULAR 07/26/2018 P3110 / / [id number] Codman Orbit Galaxy Coil 2.5mm X 3.5cm Implanted:Qty: 1 on 09/12/2015 by Arik Shin MD at OR [facility] Left: Head [employer]A [employer] LENORA CODMAN 02/26/2017 [id number] / [id number] / [id number] Description:COMPLEX XTRASOFT detachable coil deployed left internal carotid artery Codman Orbit Galaxy Coil 2.5mm X 2.5cm Implanted:Qty: 1 on 09/12/2015 by Arik Shin MD at OR [facility] Left: Head [employer] L[employer]A [employer] 01/27/2016 [id number] / [id number] / [id number] Description:COMPLEX XTRASOFT detachable coil deployed left internal carotid artery aneurysm Codman [place] 2 Stent 4mm X 30mm Implanted:Qty: 1 on 09/12/2015 by Arik Shin MD at OR [facility] Left: Head LENORA [employer] LENORA DEPUY 03/26/2018 [id number] / [id number] / [id number] Description:Vascular reconst ruction device deployed in left internal carotid artery Codman Orbit Galaxy Coil 6mm X 20cm Implanted:Qty: 1 on 09/12/2015 by Arik Shin MD at OR [facility] Left: Head LENORA & LENORA [facility] [place] [place] 09/26/2016 [id number] / [id number] / [id number] Description:COMPLEX FILL det achable coil deployed left internal carotid artery aneurysm Codman Orbit Galaxy Coil 4mm X 10cm Implanted:Qty: 1 on 09/12/2015 by Arik Shin MD at OR [facility] Left: Head [employer] 10/27/2015 [id number] / [id number] / [id number] Description:COMPLEX XTRASOFT detachable coil deployed left internal carotid artery aneurysm Codman Orbit Galaxy Coil 3.5mm X 9cm Implanted:Qty: 1 on 09/12/2015 by Arik Shin MD at OR [facility] Left: Head [employer] 12/28/2015 [id number] / [id number] / [id number] Description:COMPLEX XTRASOFT detachable coil deployed left internal carotid artery aneurysm Codman Orbit Galaxy Coil 3mm X 6cm Implanted:Qty: 1 on 09/12/2015 by Arik Shin MD at OR [facility] Left: Head [employer]A [employer] 04/28/2017 [id number] / [id number] / [id number] Description:COMPLEX XTRASOFT detachable coil deployed left internal carotid artery aneurysm Lens Intraoc 21.0 - [id number] - [id number] Implanted:Qty: 1 on 11/08/2020 by Yuri Bradley MD at OR [facility] Left: Eye [employer]CH [employer] LOMB 06/26/2025 [id number] / [id number] / [id number] Lens Intraoc 20.5 - [id number] - [id number] Implanted:Qty: 1 on 11/22/2020 by Yuri Bradley MD at OR [facility] Right: Eye BAUSCH & LOMB 07/27/2025 [id number] / [id number] / [id number] Clip Quick 2.8mm 230cm - [id number] Implanted:Qty: 3 on 03/29/2021 by Luciana Fernandez MD at ENDOSCOPY [facility] [employer] 08/27/2023 HX-202UR. A / / Sureclip 16mm 235cm - [id number] Implanted:Qty: 2 on 05/07/2022 by Luciana Fernandez MD at ENDOSCOPY [facility] Colon MICRO TECH ENDOSCOPY 07/06/2024 [id number] / / Power Port 8fr Sngl Lumen Plas - [id number] Implanted:Qty: 1 on 01/30/2023 by Koko Santiago MD at OR [facility] N/A: Chest CR BARD : PERIPHERAL VASCULAR 07/27/2024 [id number] / / [id number] Power Port 8fr Sngl Lumen Plas - [id number] Implanted:Qty: 1 on 01/30/2023 by Koko Santiago MD at OR [facility] CR BARD : PERIPHERAL VASCULAR [id number] 07/27/2024 [id number] / / [id number] documented as of this encounter Visit Diagnoses Diagnosis Malignant neoplasm of left lung, unspecified part of lung (HCC)- Primary Metastatic carcinoma involving liver with unknown primary [...] and were consensually agreed upon. Care Teams Mastic Floor Layer Relationship Specialty Start Date End Date Mauro Watson DO [address] [place] [address] PCP - General Family Medicine 04/13/19 documented as of this encounter
--- OUTSIDE RECORDS SUMMARY | 2024-02-19 09:19 | External Medical Summary | Summary of Care ---
Author Name Unknown Organization [facility] Address [address] [place] [address] Phone [phone] Care Team Providers Care Technology Officer Name Role Phone Julien Watsonvor Jordengordy Primary Care Provider Reason for Visit * Reason Onset Date Comments Advice 02/07/2024 Emmett Encounter Details Date Type Department Care Team (Late st Contact Info) Description 02/07/2024 Refill Hematology/Oncology [facility] [place] [address] [place] [phone] Lasha Christine MD [address] [place] [address] Malignant neoplasm of left lung, unspecified part [...] EGFR 72 Lumbar radiculopathy 05/27/2019 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 He requested omeprazole be removed from med list as he is not taking this. PDMP reviewed. Oxycodone filled 08/19/23 for 30 [...] Description 02/27/2024 7:40 AM EDT Laboratory Laboratory [facility] [place] [address] [place] [phone] [place] [facility] [place] [address] [place] [address] 02/27/2024 8:15 AM EDT Office Visit Hematology/Oncology [facility] [place] [address] [place] [phone] Lasha Christine MD [address] [place] [address] 02/27/2024 8:45 AM EDT Hem/Onc Treatment Hematology/Oncology Treatment, [place] [address] [place] [phone] Diane, Chair 2 Hem Onc [facility] [address] [place] [address] 04/11/2024 1:20 PM EST Office Visit [facility] [address] [place] [address] Mauro Watson, [address] [place] [address] 04/13/2024 8:30 AM EST Appointment Vascular Lab [place] [address] [place] [address] 04/13/2024 9:40 AM EST Office Visit Vascular Surg [facility] [address] [place] [address] Margarito Cabrera MD [address] [place], [place] [phone] 08/13/2024 11:40 AM EDT Office Visit Family Practice [facility] [address] [place] [address] Mauro Watson, [address] [place] [address] Scheduled Procedures Name Priority Associated Diagnoses Date/Ti [...] this encounter Medical Devices Implanted Type Area Vessel Slag Worker Device Identifier Shelf Expiration Date Model / Serial / Lot Stent Main Body Xjhd-46-89-[id number] - [id number] Implanted:Qty: 1 on 06/10/2014 by Ronal Gallegos MD at OR [facility] Aorta [employer] 04/07/2016 TFFB-24-8 2-ZT / / Graft Iliac Leg Spirlz [id number] - [id number] Implanted:Qty: 1 on 06/10/2014 by Ronal Gallegos MD at OR [facility] Right: Aorta [employer] 10/09/2015 [id number] / / [id number] Description: Graft Iliac Leg Spirlz 37l34fr - [id number] Implanted:Qty: 1 on 06/10/2014 by Ronal Gallegos MD at OR [facility] Right: Femoral Artery [employer] 11/07/2016 [id number] / / [id number] Stent Polmer 29mm P3110 - [id number] Implanted:Qty: 1 on 06/10/2014 by Ronal Gallegos MD at OR [facility] N/A: Aorta JNJ : CORDIS ENDOVASC[employer] 07/26/2018 [id number] / / [id number] Codman Orbit Galaxy Coil 2.5mm X 3.5cm Implanted:Qty: 1 on 09/12/2015 by Arik Shin MD at OR [facility] Left: Head [employer]OD[employer] 02/26/2017 [id number] / [id number] / [id number] Description:COMPLEX XTRASOFT detachable coil deployed left internal carotid artery Codman Orbit Galaxy Coil 2.5mm X 2.5cm Implanted:Qty: 1 on 09/12/2015 by Arik Shin MD at OR [facility] Left: Head [employer]OD[employer] 01/27/2016 [id number] / [id number] / [id number] Description:COMPLEX XTRASOFT detachable coil deployed left internal carotid artery aneurysm Codman [place] 2 Stent 4mm X 30mm Implanted:Qty: 1 on 09/12/2015 by Arik Shin MD at OR [facility] Left: Head LEN[employer]A [employer] LENORA DEPUY 03/26/2018 [id number] / [id number] / [id number] Description:Vascular reconst ruction device deployed in left internal carotid artery Codman Orbit Galaxy Coil 6mm X 20cm Implanted:Qty: 1 on 09/12/2015 by Arik Shin MD at OR [facility] Left: Head [employer] 09/26/2016 [id number] / [id number] / [id number] Description:COMPLEX FILL det achable coil deployed left internal carotid artery aneurysm Codman Orbit Galaxy Coil 4mm X 10cm Implanted:Qty: 1 on 09/12/2015 by Arik Shin MD at OR [facility] Left: Head [employer] 10/27/2015 [id number] / [id number] / [id number] Description:COMPLEX XTRASOFT detachable coil deployed left internal carotid artery aneurysm Codman Orbit Galaxy Coil 3.5mm X 9cm Implanted:Qty: 1 on 09/12/2015 by Arik Shin MD at OR [facility] Left: Head [employer]A [employer] LEN[employer]A CODMAN 12/28/2015 [id number] / [id number] / [id number] Description:COMPLEX XTRASOFT detachable coil deployed left internal carotid artery aneurysm Codman Orbit Galaxy Coil 3mm X 6cm Implanted:Qty: 1 on 09/12/2015 by Arik Shin MD at OR [facility] Left: Head [employer]EN[employer]A [employer]OD[employer] 04/28/2017 [id number] / [id number] / [id number] Description:COMPLEX XTRASOFT detachable coil deployed left internal carotid artery aneurysm Lens Intraoc 21.0 - [id number] - [id number] Implanted:Qty: 1 on 11/08/2020 by Yuri Bradley MD at OR [facility] Left: Eye BAUSCH & LOMB 06/26/2025 [id number] / [id number] / [id number] Lens Intraoc 20.5 - [id number] - [id number] Implanted:Qty: 1 on 11/22/2020 by Yuri Bradley MD at OR [facility] Right: Eye BAUSCH & LOMB 07/27/2025 [id number] / [id number] / [id number] Clip Quick 2.8mm 230cm - [id number] Implanted:Qty: 3 on 03/29/2021 by Luciana Fernandez MD at ENDOSCOPY [facility] [employer] 08/27/2023 HX-202UR. A / / Sureclip 16mm 235cm - [id number] Implanted:Qty: 2 on 05/07/2022 by Luciana Fernandez MD at ENDOSCOPY [facility] Colon MICRO TECH ENDOSCOPY 07/06/2024 [id number] / / Power Port 8fr Sngl Lumen Plas - [id number] Implanted:Qty: 1 on 01/30/2023 by Koko Santiago MD at OR [facility] N/A: Chest CR BARD : PERIPHERAL VASCULAR 07/27/2024 [id number] / / [id number] Power Port 8fr Sngl Lumen Plas - [id number] Implanted:Qty: 1 on 01/30/2023 by Koko Santiago MD at OR [facility] CR BARD : PERIPHERAL VASCULAR [id number] 07/27/2024 [id number] / / [id number] documented as of this encounter Visit Diagnoses [...] and were consensually agreed upon. Care Teams Technology Officer Relationship Specialty Start Date End Date Mauro Watson DO [address] [place] [address] PCP - General Family Medicine 04/13/19 documented as of this encounter
--- OUTSIDE RECORDS SUMMARY | 2024-02-19 09:19 | External Medical Summary | Summary of Care ---
Author Name Unknown Organization [facility] Address [address] [place] [address] Phone [phone] Care Team Providers Care Backhaul Driver Name Role Phone Mauro Watson DO Primary Care Provider Reason for Visit * Reason Onset Date Comments Medication Administration 01/16/2024 Flu an d/or Pneumo Inj Chemotherapy C9/D1 - Alimta, Carbo * Episode Based Medications (Routine) - Authorized Specialty Diagnoses / Procedures Referred By Edmund nelson Referred To Contact Diagnoses Encounter for antineoplastic chemotherapy 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) Malignant neoplasm of left lung, unspecified part of lung (HCC) Procedures MD INJ. PEMETREXED NOS 10MG MD CARBOPLATIN INJECTION MD FOSAPREPITANT INJECTION Lasha Christine MD [address] [facility] [place] [address] Anc Hem/Onc [address] [phone] Referral ID Status Reason Start Date Expiration Date V isits Requested Visits Authorized [id number] Authorized 08/22/2023 04/28/2099 999 [id number] Encounter Details Date Type Department Care Team (Latest Contact Info) Description 01/16/2024 8:45 AM EDT Hem/Onc Treatment Hematology/Oncolog y Treatment, [address] [phone] Diane, Chair 7 Hem On[address] [place] [phone] Encounter for antineoplastic chemotherapy*; 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); Malignant neoplasm of left lung, unspecified part of lung (HCC); Need for prophylactic vaccination and inoculation against influenza Allergies Active Allergy Reactions Criticality Noted Date [...] mouth in the morning. 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 05/05/2019 History of colon polyps 08/12/2018 ACEI/ARB contraindicated 09/21/2016 Carotid aneurysm, left 09/13/2015 Overview: S/p coil embolization Cerebral aneurysm, nonruptured 09/05/2015 AAA (abdominal aortic aneurysm) 06/20/2015 Overview: S/p repair Bilateral carotid artery disease 06/20/2015 Medical home patient encounter 05/19/2014 Hypertriglyceridemia 05/16/2012 CORON ATHEROSCL [place] CORON VESSEL 07/11/2010 Dyslipidemia, goal LDL below [...] on file documented as of this encounter Last Filed Vital Signs Vital Sign Reading Time Taken Comments Blood Pressure - - Pulse - - Temperature - - Respiratory Rate - - Oxygen Saturation - - Inhaled Oxygen Concentration - - Weight - - Height 172.7 cm (5' 8") 01/16/2024 8:00 AM EDT f rom 05/2023 Body Mass Index - - documented in this encounter Functional Status Functional Status Response [...] No 09/12/2015 documented as of this encounter Patient Instructions * Patient Instructions* Amy Boogie LPN - 01/16/2024 9:00 AM EDT ~~PATIENT INSTRUCTIONS FOR FLU SHOT~~ Possible side effects of influenza vaccine, (flu shot), are usually mild and include: 1. Soreness or redness at injection site 2. Low grade fever 3. Body aches You may use Tylenol/Acetaminophen as needed for these symptoms. LET YOUR DOCTOR KNOW IMMEDIATELY IF YOU HAVE DIFFICULTY BREATHING OR SWALLOWING, EXPERIENCE ITCHINGOF FEET OR HANDS, HAVE SWELLING OF EYES, FACE OR INSIDE OF NOSE. documented in this encounter Progress Notes * Amy Boogie LPN - 01/16/2024 8:59 AM EDT PRE - ADMINISTRATION DOCUMENTATION Are you experiencing any cold symptoms or fever? No Have you had Guillain-Petrolia Syndrome (an illness that causes paralysis) within the last 6 weeks? No Have you had the flu shot in the past? YES Have you ever had a reaction to the flu shot? No Amy Boogie LPN, 01/16/2024 8:59 AM Immunization Administration Documentation Time Out Procedure Performed: Yes Patient Identified (Ask Name/Date of ): Yes Does the patient have a fever greater than 101 degrees today? No Patient allergic to latex? No C Stock: Yes, Does this patient qualify for immunization through the [facility] program because he/she (check only one): Yes-is enrolled in Medicaid Immunization(s) verified: Yes, Immunization Name: Flu, VIS Sheet(s) given: Yes Verified Side and Site: Yes Verified Shot(s) with Parent(s)/Patient: Yes documented in this encounter Nursing Notes * Niecy Levin RN - 01/16/2024 1:31 PM EDT Goals: Patient will remain free from injury. Possible barriers to meeting goals: ambulating with IV pole Stability of the patient: Moderately stable - low risk of patient condition declining or worsening Summary regarding today's goals: Met: pt remained free of harm today Patient tolerated treatment well without any acute issues or problems. Patient left facility in stable condition and denied any further needs. * Niecy Levin RN - 01/16/2024 1:26 PM EDT Chair 11. Port accessed, no issues. Patient saw Dr. Christine today -- see OV note for details. Chemotherapy/Immunotherapy agents: ALIMTA and CARBOPLATIN Consent for chemotherapy drug treatment complete, dated, and signed? yes, date - 08/22/2023 Treatment lab parameters met? Yes Has treatment weight changed > than 10%? No Treatment preauthorized? Yes Urine protein: N/A Patient education completed for treatment? Yes Blood transfusion consent signed and complete? NA Return appointment scheduled? Yes Patient had provider visit today? Yes - Ok to release order and treat per provider Functional Status: Functional status at today's visit: Restricted in physically strenuous activity but ambulatory and able to carry out work on a light orsedentary nature, e.g. light house work, office work The drug name, dose, infusion volume, rate and route of administration, expiration date and time, appearance and physical integrity of the drug and rate set on the pump and sequencing of drug administration (as applicable) were verified by me and second sign-in RN. Patient was assessed for symptoms or adverse side effects during treatment. Patient Education: Patient instructed on use of heat and massage functions where applicable. Patient shown how to operate the heat function of the chair and to alert nursing staff if the chair feels too warm. Patient instructed on the risk of potential olivier while using the heat function. Safety and Risk for Injury Patient will remain free from injury. Ensure appropriate safety devices are available. Provide and maintain safe environment. documented in this encounter Plan of Treatment Upcoming Encounters Date Type Department Care Team (Late st Contact Info) Description 02/27/2024 7:40 AM EDT Laboratory Laboratory [facility] [place] [address] [facility] [place] [phone] [place], Lab [facility] [address] [facility] [place] [address] 02/27/2024 8:15 AM EDT Office Visit Hematology/Oncology [facility] [place] [address] [place] [phone] Lasha Christine MD [address] [place] [address] 02/27/2024 8:45 AM EDT [facility] [address] [place] [address] Diane, Chair 2 Hem Onc [facility] [address] [place] [address] 04/11/2024 1:20 PM EST Office Visit [facility] [address] [place] [address] Mauro Watson, [address] [place] [address] 04/13/2024 8:30 AM EST Appointment Vascular Lab [place] [address] [place] [address] 04/13/2024 9:40 AM EST Office Visit Vascular Surg [facility] [address] [place] [address] Margarito Cabrera MD [address] [place] [address] 08/13/2024 11:40 AM EDT Office Visit [facility] [address] [place] [address] Mauro Watson DO [address] [place] [address] Scheduled Procedures Name Priority Associated Diagnoses Date/Ti [...] this encounter Medical Devices Implanted Type Area Cable Weaver Device Identifier Shelf Expiration Date Model / Serial / Lot Stent Main Body Ecvq-27-20-[id number] - [id number] Implanted:Qty: 1 on 06/10/2014 by Ronal Gallegos MD at OR [facility] Aorta [employer] 04/07/2016 TFFB-24-8 2-ZT / / Graft Iliac Leg Spirlz 42p99cg - [id number] Implanted:Qty: 1 on 06/10/2014 by Ronal Gallegos MD at OR [facility] Right: Aorta [employer] 10/09/2015 [id number] / / [id number] Description: Graft Iliac Leg Spirlz 28o52yy - [id number] Implanted:Qty: 1 on 06/10/2014 by Ronal Gallegos MD at OR [facility] Right: Femoral Artery [employer] 11/07/2016 [id number] / / [id number] Stent Polmer 29mm P3110 - [id number] Implanted:Qty: 1 on 06/10/2014 by Ronal Gallegos MD at OR [facility] N/A: Aorta JNJ : CORDIS ENDOVASCULAR 07/26/2018 P3110 / / [id number] Codman Orbit Galaxy Coil 2.5mm X 3.5cm Implanted:Qty: 1 on 09/12/2015 by Arik Shin MD at OR [facility] Left: Head L[employer]ORA [employer] [facility] 02/26/2017 [id number] / [id number] / [id number] Description:COMPLEX XTRASOFT detachable coil deployed left internal carotid artery Codman Orbit Galaxy Coil 2.5mm X 2.5cm Implanted:Qty: 1 on 09/12/2015 by Arik Shin MD at OR [facility] Left: Head [employer] [facility] [place] [facility] [place] [facility] 01/27/2016 [id number] / [id number] / [id number] Description:COMPLEX XTRASOFT detachable coil deployed left internal carotid artery aneurysm Codman [place] 2 Stent 4mm X 30mm Implanted:Qty: 1 on 09/12/2015 by Arik Shin MD at OR [facility] Left: Head [employer]ORA [employer] LENORA DEPUY 03/26/2018 [id number] / [id number] / [id number] Description:Vascular reconst ruction device deployed in left internal carotid artery Codman Orbit Galaxy Coil 6mm X 20cm Implanted:Qty: 1 on 09/12/2015 by Arik Shin MD at OR [facility] Left: Head [facility] 09/26/2016 [id number] / [id number] / [id number] Description:COMPLEX FILL det achable coil deployed left internal carotid artery aneurysm Codman Orbit Galaxy Coil 4mm X 10cm Implanted:Qty: 1 on 09/12/2015 by Arik Shin MD at OR [facility] Left: Head [facility] 10/27/2015 [id number] / [id number] / [id number] Description:COMPLEX XTRASOFT detachable coil deployed left internal carotid artery aneurysm Codman Orbit Galaxy Coil 3.5mm X 9cm Implanted:Qty: 1 on 09/12/2015 by Arik Shin MD at OR [facility] Left: Head [employer] 12/28/2015 [id number] / [id number] / [id number] Description:COMPLEX XTRASOFT detachable coil deployed left internal carotid artery aneurysm Codman Orbit Galaxy Coil 3mm X 6cm Implanted:Qty: 1 on 09/12/2015 by Arik Shin MD at OR [facility] Left: Head ELNORA & LENORA CODMAN 04/28/2017 [id number] / [id number] / [id number] Description:COMPLEX XTRASOFT detachable coil deployed left internal carotid artery aneurysm Lens Intraoc 21.0 - [id number] - [id number] Implanted:Qty: 1 on 11/08/2020 by Yuri Bradley MD at OR [facility] Left: Eye BAUSCH & LOMB 06/26/2025 [id number] / [id number] / [id number] Lens Intraoc 20.5 - [id number] - [id number] Implanted:Qty: 1 on 11/22/2020 by Yuri Bradley MD at OR [facility] Right: Eye BAUSCH & LOMB 07/27/2025 [id number] / [id number] / [id number] Clip Quick 2.8mm 230cm - [id number] Implanted:Qty: 3 on 03/29/2021 by Luciana Fernandez MD at ENDOSCOPY [facility] [employer] 08/27/2023 HX-202UR. A / / Sureclip 16mm 235cm - [id number] Implanted:Qty: 2 on 05/07/2022 by Luciana Fernandez MD at ENDOSCOPY [facility] Colon MICRO TECH ENDOSCOPY 07/06/2024 [id number] / / Power Port 8fr Sngl Lumen Plas - [id number] Implanted:Qty: 1 on 01/30/2023 by Koko Santiago MD at OR [facility] N/A: Chest CR BARD : PERIPHERAL VASCULAR 07/27/2024 [id number] / / [id number] Power Port 8fr Sngl Lumen Plas - [id number] Implanted:Qty: 1 on 01/30/2023 by Koko Santiago MD at [facility] CR BARD : PERIPHERAL VASCULAR [id number] 07/27/2024 [id number] / / [id number] documented as of this encounter Visit Diagnoses Diagnosis Encounter for antineoplastic chemotherapy- Primary 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) Malignant neoplasm of left lung, unspecified part of lung (HCC) Need for prophylactic vaccination and inoculation against influenza documented in this encounter Administered Medications Inactive Administered Medications - up to 3 most recent administrations Medication Order MAR Action Action Date Dose Rate Site CARBOplatin (Paraplatin) 339 mg in D5W 250 mL infusion 339 mg (rounded from 339.2 mg, Target AUC = 4), IV Piggyback, at 510 mL/hr Administer over 30 Minutes, PROTECT FROM LIGHT Administer 30 min after Alimta complete, ONCE, 1 dose, On Lizz 01/16/24 at 0930 Start Infusion 01/16/2024 10:52 AM EDT 339 mg 510 mL/hr Fosaprepitant Dimeglumine (Emend) 150 mg, ondansetron (Zofran) 16 mg, dexamethasone sodium phosphate 12 mg in NSS 250 mL Infusion 150 mg, IV Piggyback, ONCE, 1 dose, On Lizz 01/16/24 at 0930, Administer over 30 Minutes, Infuse over 30 minutes Start Infusion 01/16/2024 9:13 AM EDT 150 mg 538.4 mL/hr hEParin 100 UNIT/ML Lock Flush inj 500 Units 500 Units (5 mL), IV Lock, PRN Other, IV Flush, Starting on Sat01/16/24 at 0852, Until Lizz 01/16/24 at 1740, For 24 hours, Do not flush if lock, PICC, or central line not in place; IV infusing or unable to flush. Given 01/16/2024 12:02 PM EDT 500 Units NSS infusion FOR HYDRATION Intravenous, at 500 mL/hr Administer over 2 Hours, ONCE PRN, 1 dose, Starting on Sat01/16/24 at 0852, Until Sat01/16/24 at 1159 Start Infusion 01/16/2024 10:02 AM EDT 1,000 mL 500 mL/hr NSS infusion Intravenous, at 50 mL/hr, PRN, Starting on Sat01/16/24 at 1000, Until Sat01/16/24 at 1740, Maintenance line Start Infusion 01/16/2024 9:12 AM EDT 50 mL/hr PEMEtrexed Disodium (Alimta) 700 mg in NSS 100 mL infusion 700 mg (rounded from 740 mg = 400 mg/m2 1.85 m2 Treatment Plan BSA from Recorded weight), IV Piggyback, ONCE, 1 dose, On Sat01/16/24 at 0915, Administer over 10 Minutes Start Infusion 01/16/2024 10:06 AM EDT 700 mg 630 mL/hr sodium chloride 0.9 % flush central line 10 mL 10 mL, IV Push, PRN Other, IV Flush, Starting on Lizz 01/16/24 at 0852, Until Lizz 01/16/24 at 1740, For 24 hours, Do not flush if lock, PICC, or central line not in place; IV infusing or unable to flush. Given 01/16/2024 12:02 PM EDT 10 mL documented in this encounter Advance Directives * Full Code (Latest Code Status on File) Date Activated Date Inactivated Comments 09/12/2015 11:01 AM 09/13/2015 2:50 PM This order reflects the patients wishes and were consensually agreed upon. * Full Code Date Activated Date Inactivated Comments 06/10/2014 10:48 AM 06/11/2014 8:37 PM This order reflects the patients wishes and were consensually agreed upon. Care Teams Backhaul Driver Relationship Specialty Start Date End Date Mauro Watson DO [address] [address] PCP - General Family Medicine 04/13/19 documented as of this encounter
--- OUTSIDE RECORDS SUMMARY | 2024-02-19 09:20 | External Medical Summary | Summary of Care ---
Author Name Unknown Organization [facility] Address [address] [place] [address] Phone [phone] Care Team Providers Care Warehouse Picker Name Role Phone Mauro Watson DO Primary [...] lung, unspecified part of lung (HCC) Procedures AR INJ. PEMETREXED NOS 10MG AR CARBOPLATIN INJECTION AR FOSAPREPITANT INJECTION Lasha Christine MD 200 [facility] [place] [address] Anc Hem/Onc [address] [address] Referral ID Status Reason Start Date Expiration Date V isits Requested Visits Authorized [id number] Authorized 08/22/2023 04/28/2099 999 99 Encounter Details Date Type Department Care Team (Latest Contact Info) Description 01/16/2024 8:45 AM EDT Hem/Onc Treatment Hematology/Oncolog y Treatment, [address] [address] Diane, Chair 7 Hem Onc [address] [place] [id number] Encounter for antineoplastic chemotherapy*; 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); Malignant neoplasm of left lung, unspecified part of lung (HCC); Need for prophylactic vaccination and inoculation against influenza Allergies Active Allergy Reactions Criticality Noted Date Comments Aspirin Bleeding High 11/26/2011 Significant hemorroidal bleed on aspirin,high doses Duloxetine Hcl Hypertension 01/26/2020 documented as of this encounter (statuses as of 02/09/2024) Medications Medication Sig Dispensed Refills Start Date [...] as of this encounter (statuses as of 02/09/2024) Active Problems Problem Noted Date Diagnosed Date Malignant neoplasm of left lung 08/23/2023 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 01/21/2023 Encounter for antineoplastic chemotherapy 2022 Medical marijuana use 08/26/2021 CKD (chronic kidney disease), stage II 2 Overview: EGFR 72 Lumbar radiculopathy 05/27/2019 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 05/05/2019 History of colon polyps 08/12/2018 ACEI/ARB contraindicated 09/21/2016 Carotid aneurysm, left 09/13/2015 Overview: S/p coil embolization Cerebral aneurysm, nonruptured 09/05/2015 AAA (abdominal aortic aneurysm) 06/20/2015 Overview: S/p repair Bilateral carotid artery disease 06/20/2015 Medical home patient encounter 05/19/2014 Hypertriglyceridemia 05/16/2012 CORON ATHEROSCL [place] CORON VESSEL 07/11/2010 Dyslipidemia, goal LDL below [...] as of this encounter (statuses as of 02/09/2024) Resolved Problems Problem Noted Date Diagnosed Date [...] as of this encounter (statuses as of 02/09/2024) Immunizations Name Administration Dates Next Due COVID-19 [...] symptoms or fever? No Have you had Guillain-[place] Syndrome (an illness that causes paralysis) within [...] this patient qualify for immunization through the [facility] program because he/she (check only one): [...] Description 02/27/2024 7:40 AM EDT Laboratory Laboratory [facility] [place] [address] [facility] [place] [phone] [place], Lab [facility] [address] [facility] [place] [address] 02/27/2024 8:15 AM EDT Office Visit Hematology/Oncology [facility] [place] [address] [place] [phone] Lasha Christine MD 200 [facility] [place] [address] 02/27/2024 8:45 AM EDT [facility] [address] [place] [phone] Diane, Chair [address] [facility] [address] [place] [address] 04/11/2024 1:20 PM EST Office Visit [facility] [address] [address] Mauro Watson, [address] [place] [address] 04/13/2024 8:30 AM EST Appointment Vascular Lab [place] [address] [place] [address] 04/13/2024 9:40 AM EST Office Visit Vascular Surg [facility] [address] [place] [address] Margarito Cabrera MD [address] [place] [address] 08/13/2024 11:40 AM EDT Office Visit [facility] [address] [place] [address] Mauro Watson DO [address] [place] [address] Scheduled Procedures Name Priority Associated Diagnoses Date/Ti [...] this encounter Medical Devices Implanted Type Area Workplace Trainer And Assessor Device Identifier Shelf Expiration Date Model / Serial / Lot Stent Main Body Ymwr-67-19-Zt - [id number] Implanted:Qty: 1 on 06/10/2014 by Ronal Gallegos MD at OR [facility] Aorta [employer] 04/07/2016 TFFB-24-8 2-ZT / / Graft Iliac Leg Spirlz [id number] - [id number] Implanted:Qty: 1 on 06/10/2014 by Ronal Gallegos MD at OR [facility] Right: Aorta [employer] 10/09/2015 [id number] / / [id number] Description: Graft Iliac Leg Spirlz 64s24gk - [id number] Implanted:Qty: 1 on 06/10/2014 by Ronal Gallegos MD at OR [facility] Right: Femoral Artery [employer] 11/07/2016 [id number] / / [id number] Stent Polmer 29mm P3110 - [id number] Implanted:Qty: 1 on 06/10/2014 by Ronal Gallegos MD at OR [facility] N/A: Aorta JNJ : CORDIS ENDOVASCULAR 07/26/2018 P3110 / / [id number] Codman Orbit Galaxy Coil 2.5mm X 3.5cm Implanted:Qty: 1 on 09/12/2015 by Arik Shin MD at OR [facility] Left: Head L[employer]ORA [employer] L[employer]A [facility] 02/26/2017 [id number] / [id number] / [id number] Description:COMPLEX XTRASOFT detachable coil deployed left internal carotid artery Codman Orbit Galaxy Coil 2.5mm X 2.5cm Implanted:Qty: 1 on 09/12/2015 by Arik Shin MD at OR [facility] Left: Head [employer]A [facility] 01/27/2016 [id number] / [id number] / [id number] Description:COMPLEX XTRASOFT detachable coil deployed left internal carotid artery aneurysm Codman Eagle 2 Stent 4mm X 30mm Implanted:Qty: 1 on 09/12/2015 by Arik Shin MD at OR [facility] Left: Head LEN[employer]A [employer] LENORA DEPUY 03/26/2018 [id number] / [id number] / [id number] Description:Vascular reconst ruction device deployed in left internal carotid artery Codman Orbit Galaxy Coil 6mm X 20cm Implanted:Qty: 1 on 09/12/2015 by Arik Shin MD at OR [facility] Left: Head LENORA & LENORA [facility] 09/26/2016 [id number] / [id number] / [id number] Description:COMPLEX FILL det achable coil deployed left internal carotid artery aneurysm Codman Orbit Galaxy Coil 4mm X 10cm Implanted:Qty: 1 on 09/12/2015 by Arik Shin MD at OR [facility] Left: Head LENORA & LENORA [facility] 10/27/2015 [id number] / [id number] / [id number] Description:COMPLEX XTRASOFT detachable coil deployed left internal carotid artery aneurysm Codman Orbit Galaxy Coil 3.5mm X 9cm Implanted:Qty: 1 on 09/12/2015 by Arik Shin MD at OR [facility] Left: Head LENORA [employer] LENORA CODMAN 12/28/2015 [id number] / [id number] / [id number] Description:COMPLEX XTRASOFT detachable coil deployed left internal carotid artery aneurysm Codman Orbit Galaxy Coil 3mm X 6cm Implanted:Qty: 1 on 09/12/2015 by Arik Shin MD at OR [facility] Left: Head LEN[employer]A [employer] LENORA [employer]ODMAN 04/28/2017 [id number] / [id number] / [id number] Description:COMPLEX XTRASOFT detachable coil deployed left internal carotid artery aneurysm Lens Intraoc 21.0 - [id number] - [id number] Implanted:Qty: 1 on 11/08/2020 by Yuri Bradley MD at OR [facility] Left: Eye BAUSCH [employer] LOMB 06/26/2025 [id number] / [id number] / [id number] Lens Intraoc 20.5 - [id number] - [id number] Implanted:Qty: 1 on 11/22/2020 by Yuri Bradley MD at OR [facility] Right: Eye BAUSCH & LOMB 07/27/2025 [id number] / [id number] / [id number] Clip Quick 2.8mm 230cm - [id number] Implanted:Qty: 3 on 03/29/2021 by Luciana Fernandez MD at ENDOSCOPY [facility] [email or web address] 08/27/2023 HX-202UR. A / / Sureclip 16mm 235cm - [id number] Implanted:Qty: 2 on 05/07/2022 by Luciana Fernandez MD at ENDOSCOPY [facility] Colon MICRO TECH ENDOSCOPY 07/06/2024 [id number] / / Power Port 8fr Sngl Lumen Plas - [id number] Implanted:Qty: 1 on 01/30/2023 by Koko Santiago MD at OR [facility] N/A: Chest CR BARD : PERIPHERAL VASCULAR 07/27/2024 [id number] / / [id number] Power Port 8fr Sngl Lumen Plas - [id number] Implanted:Qty: 1 on 01/30/2023 by Koko Santiago MD at [facility] CR BARD : PERIPHERAL VASCULAR [id number] 07/27/2024 [id number] / / [id number] documented as of this encounter Visit Diagnoses [...] and were consensually agreed upon. Care Teams Warehouse Picker Relationship Specialty Start Date End Date Mauro Watson DO [address] [place] [address] PCP - General Family Medicine 04/13/19 documented as of this encounter
--- OUTSIDE RECORDS SUMMARY | 2024-02-19 09:20 | External Medical Summary | Summary of Care ---
Author Name Unknown Organization [facility] Address [address] [place] [address] Phone [phone] Care Team Providers Care Coil Winder Name Role Phone Mauro Watson DO Primary [...] lung, unspecified part of lung (HCC) Procedures [place] INJ. PEMETREXED NOS 10MG [place] CARBOPLATIN INJECTION [place] FOSAPREPITANT INJECTION Lasha Christine MD 200 [facility] [place] [address] Anc Hem/Onc [address] [address] Referral ID Status Reason Start Date Expiration Date V isits Requested Visits Authorized [id number] Authorized 08/22/2023 04/28/2099 999 99 Encounter Details Date Type Department Care Team (Latest Contact Info) Description 01/16/2024 8:45 AM EDT Hem/Onc Treatment Hematology/Oncolog y Treatment, [address] [phone] Diane, Chair 7 Hem Onc [address] [place] [phone] Encounter for antineoplastic chemotherapy*; Metastatic carcinoma involving [...] EGFR 72 Lumbar radiculopathy 05/27/2019 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 No Have you had Guillain-[place] Syndrome (an illness that causes paralysis) within [...] this patient qualify for immunization through the [facility] program because he/she (check only one): Yes-is [...] Description 02/27/2024 7:40 AM EDT Laboratory Laboratory [facility] [place] 200 [facility] [place] [phone] [place], Lab [facility] 200 [facility] [place] [address] 02/27/2024 8:15 AM EDT Office Visit Hematology/Oncology [facility] [place] [address] [place] [phone] Lasha Christine MD 200 [facility] [place] [address] 02/27/2024 8:45 AM EDT Hem[facility] [address] [place] [phone] Diane, Chair 2 Hem Onc [facility] [address] [place] [address] 04/11/2024 1:20 PM EST Office Visit [facility] [address] [address] Mauro Watson, [address] [place] [address] 04/13/2024 8:30 AM EST Appointment Vascular Lab [place] [address] [place] [address] 04/13/2024 9:40 AM EST Office Visit Vascular Surg [facility] [address] [place] [address] Margarito Cabrera MD [address] [place] [address] 08/13/2024 11:40 AM EDT Office Visit [facility] [address] [place] [address] Mauro Watson DO [address] [place] [address] Scheduled Procedures Name Priority Associated Diagnoses Date/Ti [...] this encounter Medical Devices Implanted Type Area Pot Reliner Device Identifier Shelf Expiration Date Model / Serial / Lot Stent Main Body Rnst-31-20-Zt - [id number] Implanted:Qty: 1 on 06/10/2014 by Ronal Gallegos MD at OR [facility] Aorta [employer] 04/07/2016 TFFB-24-8 2-ZT / / Graft Iliac Leg Spirlz 23w10bb - [id number] Implanted:Qty: 1 on 06/10/2014 by Ronal Gallegos MD at OR [facility] Right: Aorta [employer] 10/09/2015 [id number] / / [id number] Description: Graft Iliac Leg Spirlz 89j44yf - [id number] Implanted:Qty: 1 on 06/10/2014 by Ronal Gallegos MD at OR [facility] Right: Femoral Artery [employer] 11/07/2016 [id number] / / [id number] Stent Polmer 29mm P3110 - [id number] Implanted:Qty: 1 on 06/10/2014 by Ronal Gallegos MD at OR [facility] N/A: Aorta JNJ : CORDIS ENDOVASCULAR 07/26/2018 P3110 / / [id number] Codman Orbit Galaxy Coil 2.5mm X 3.5cm Implanted:Qty: 1 on 09/12/2015 by Arik Shin MD at OR [facility] Left: Head LENORA & LENORA [facility] 02/26/2017 [id number] / [id number] / [id number] Description:COMPLEX XTRASOFT detachable coil deployed left internal carotid artery Codman Orbit Galaxy Coil 2.5mm X 2.5cm Implanted:Qty: 1 on 09/12/2015 by Arik Shin MD at OR [facility] Left: Head L[employer]ORA [employer] [facility]A [facility] 01/27/2016 [id number] / [id number] / [id number] Description:COMPLEX XTRASOFT detachable coil deployed left internal carotid artery aneurysm Codman [place] 2 Stent 4mm X 30mm Implanted:Qty: 1 on 09/12/2015 by Arik Shin MD at OR [facility] Left: Head L[employer]A [employer] LENORA DEPUY 03/26/2018 [id number] / [id number] / [id number] Description:Vascular reconst ruction device deployed in left internal carotid artery Codman Orbit Galaxy Coil 6mm X 20cm Implanted:Qty: 1 on 09/12/2015 by Arik Shin MD at OR [facility] Left: Head LENORA & LENORA [facility] 09/26/2016 [id number] / [id number] / [id number] Description:COMPLEX FILL det achable coil deployed left internal carotid artery aneurysm Codman Orbit Galaxy Coil 4mm X 10cm Implanted:Qty: 1 on 09/12/2015 by Arik Shin MD at OR [facility] Left: Head LENORA & LENORA [facility] 10/27/2015 [id number] 0 / [id number] / [id number] Description:COMPLEX XTRASOFT detachable coil deployed left internal carotid artery aneurysm Codman Orbit Galaxy Coil 3.5mm X 9cm Implanted:Qty: 1 on 09/12/2015 by Arik Shin MD at OR [facility] Left: Head LENORA [employer] LENORA CODMAN 12/28/2015 [id number] / [id number] / [id number] Description:COMPLEX XTRASOFT detachable coil deployed left internal carotid artery aneurysm Codman Orbit Galaxy Coil 3mm X 6cm Implanted:Qty: 1 on 09/12/2015 by Arik Shin MD at OR [facility] Left: Head LENORA [employer] LENORA CODMAN 04/28/2017 [id number] / [id number] / [id number] Description:COMPLEX XTRASOFT detachable coil deployed left internal carotid artery aneurysm Lens Intraoc 21.0 - [id number] - [id number] Implanted:Qty: 1 on 11/08/2020 by Yuri Bradley MD at OR [facility] Left: Eye BAUSCH & LOMB 06/26/2025 [id number] / [id number] / [id number] Lens Intraoc 20.5 - [id number] - [id number] Implanted:Qty: 1 on 11/22/2020 by Yuri Bradley MD at OR [facility] Right: Eye BAUSCH & LOMB 07/27/2025 [id number] / [id number] / [id number] Clip Quick 2.8mm 230cm - [id number] Implanted:Qty: 3 on 03/29/2021 by Luciana Fernandez MD at ENDOSCOPY [facility] [employer] 08/27/2023 HX-202UR. A / / Sureclip 16mm 235cm - [id number] Implanted:Qty: 2 on 05/07/2022 by Luciana Fernandez MD at ENDOSCOPY [facility] Colon MICRO TECH ENDOSCOPY 07/06/2024 [id number] / / Power Port 8fr Sngl Lumen Plas - [id number] Implanted:Qty: 1 on 01/30/2023 by Koko Santiago MD at OR [facility] N/A: Chest CR BARD : PERIPHERAL VASCULAR 07/27/2024 [id number] / / [id number] Power Port 8fr Sngl Lumen Plas - [id number] Implanted:Qty: 1 on 01/30/2023 by Koko Santiago MD at [facility] CR BARD : PERIPHERAL VASCULAR [id number] 07/27/2024 [id number] / / [id number] documented as of this encounter Visit Diagnoses [...] and were consensually agreed upon. Care Teams Coil Winder Relationship Specialty Start Date End Date Mauro Watson DO [address] [place] [address] PCP - General Family Medicine 04/13/19 documented as of this encounter
--- OUTSIDE RECORDS SUMMARY | 2024-02-19 09:20 | External Medical Summary | Summary of Care ---
Author Name Unknown Organization [facility] Address [address] [place] [address] Phone [phone] Care Team Providers Care Aluminum Shingle Roofer Name Role Phone Mauro Watson DO Primary [...] MD FOSAPREPITANT INJECTION Lasha Christine MD 200 [facility] [place] [address] Anc Hem/Onc [address] [address] Referral ID Status Reason Start Date Expiration Date V isits Requested Visits Authorized [id number] Authorized 08/22/2023 04/28/2099 999 99 Encounter Details Date Type Department Care Team (Latest Contact Info) Description 01/16/2024 8:45 AM EDT Hem/Onc Treatment Hematology/Oncolog y Treatment, [address] [address] Diane, Chair 7 Hem Onc [address] [place] [phone] Encounter for antineoplastic chemotherapy*; Metastatic carcinoma involving [...] EGFR 72 Lumbar radiculopathy 05/27/2019 Atherosclerosis of [place] co ronary artery of [place] heart with angina pectoris 05/05/2019 History of colon polyps 08/12/2018 ACEI/ARB contraindicated 09/21/2016 Carotid aneurysm, left 09/13/2015 Overview: S/p coil embolization Cerebral aneurysm, nonruptured 09/05/2015 AAA (abdominal aortic aneurysm) 06/20/2015 Overview: S/p repair Bilateral carotid artery disease 06/20/2015 Medical home patient encounter 05/19/2014 Hypertriglyceridemia 05/16/2012 CORON ATHEROSCL KOOTENAI CORON VESSEL 07/11/2010 Dyslipidemia, goal LDL below [...] symptoms or fever? No Have you had Guillain-[place] Syndrome (an illness that causes paralysis) within [...] this patient qualify for immunization through the [facility] program because he/she (check only one): Yes-is [...] Description 02/27/2024 7:40 AM EDT Laboratory Laboratory [facility] [place] [address] [facility] [place] [phone] [place], Lab [facility] [address] [facility] [place] [address] 02/27/2024 8:15 AM EDT Office Visit Hematology/Oncology [facility] [place] [address] [place] [phone] Lasha Christine MD [address] [facility] [place] [address] 02/27/2024 8:45 AM EDT [facility] [address] [place] [phone] Diane, Chair [address] [facility] [address] [place] [address] 04/11/2024 1:20 PM EST Office Visit [facility] [address] [address] aMuro Watson, [address] [address] 04/13/2024 8:30 AM EST Appointment Vascular Lab [place] [address] [place] [address] 04/13/2024 9:40 AM EST Office Visit Vascular Surg [facility] [address] [place] [address] Margarito Cabrera MD [address] [place] [address] 08/13/2024 11:40 AM EDT Office Visit [facility] [address] [place] [address] Mauro Watson DO [address] [place] [address] Scheduled Procedures Name Priority Associated Diagnoses Date/Ti [...] this encounter Medical Devices Implanted Type Area Carpet Tile Layer Device Identifier Shelf Expiration Date Model / Serial / Lot Stent Main Body Bydm-00-08-Zt - [id number] Implanted:Qty: 1 on 06/10/2014 by Ronal Gallegos MD at [place] [facility] Aorta [employer]OOK [employer] 04/07/2016 TFFB-24-8 2-ZT / / Graft Iliac Leg Spirlz 66c99mj - [id number] Implanted:Qty: 1 on 06/10/2014 by Ronal Gallegos MD at [place] [facility] Right: Aorta [employer] GROUP 10/09/2015 [id number] / / [id number] Description: Graft Iliac Leg Spirlz 40y09mu - [id number] Implanted:Qty: 1 on 06/10/2014 by Ronal Gallegos MD at [place] [facility] Right: Femoral Artery [employer] 11/07/2016 [id number] / / [id number] Stent Polmer 29mm P3110 - [id number] Implanted:Qty: 1 on 06/10/2014 by Ronal Gallegos MD at [place] [facility] N/A: Aorta JNJ : CORDIS ENDOVASCULAR 07/26/2018 [id number] / / [id number] Codman Orbit Galaxy Coil 2.5mm X 3.5cm Implanted:Qty: 1 on 09/12/2015 by Arik Shin MD at [place] [facility] Left: Head LENORA & LENORA [facility] 02/26/2017 [id number] / [id number] / [id number] Description:COMPLEX XTRASOFT detachable coil deployed left internal carotid artery Codman Orbit Galaxy Coil 2.5mm X 2.5cm Implanted:Qty: 1 on 09/12/2015 by Arik Shin MD at [place] [facility] Left: Head LENORA & LENORA [facility] 01/27/2016 [id number] / [id number] / [id number] Description:COMPLEX XTRASOFT detachable coil deployed left internal carotid artery aneurysm Codman [place] 2 Stent 4mm X 30mm Implanted:Qty: 1 on 09/12/2015 by Arik Shin MD at OR [facility] Left: Head LENORA & LENORA DEPUY 03/26/2018 [id number] / [id number] / [id number] Description:Vascular reconst ruction device deployed in left internal carotid artery Codman Orbit Galaxy Coil 6mm X 20cm Implanted:Qty: 1 on 09/12/2015 by Arik Shin MD at OR [facility] Left: Head LENORA & LENORA [facility] 09/26/2016 [id number] / [id number] / [id number] Description:COMPLEX FILL det achable coil deployed left internal carotid artery aneurysm Codman Orbit Galaxy Coil 4mm X 10cm Implanted:Qty: 1 on 09/12/2015 by Arik Shin MD at OR [facility] Left: Head LENORA & LENORA [facility] 10/27/2015 [id number] 0 / [id number] / [id number] Description:COMPLEX XTRASOFT detachable coil deployed left internal carotid artery aneurysm Codman Orbit Galaxy Coil 3.5mm X 9cm Implanted:Qty: 1 on 09/12/2015 by Arik Shin MD at [place] [facility] Left: Head LENORA & LENORA CODMAN 12/28/2015 [id number] / [id number] / [id number] Description:COMPLEX XTRASOFT detachable coil deployed left internal carotid artery aneurysm Codman Orbit Galaxy Coil 3mm X 6cm Implanted:Qty: 1 on 09/12/2015 by Arik Shin MD at OR [facility] Left: Head LENORA & LENORA CODMAN 04/28/2017 [id number] / [id number] / [id number] Description:COMPLEX XTRASOFT detachable coil deployed left internal carotid artery aneurysm Lens Intraoc 21.0 - [id number] - [id number] Implanted:Qty: 1 on 11/08/2020 by Yuri Bradley MD at OR [facility] Left: Eye BAUSCH & LOMB 06/26/2025 [id number] / [id number] / [id number] Lens Intraoc 20.5 - [id number] - [id number] Implanted:Qty: 1 on 11/22/2020 by Yuri Bradley MD at OR [facility] Right: Eye BAUSCH & LOMB 07/27/2025 [id number] / [id number] / [id number] Clip Quick 2.8mm 230cm - [id number] Implanted:Qty: 3 on 03/29/2021 by Luciana Fernandez MD at ENDOSCOPY [facility] [employer] 08/27/2023 HX-202UR. A / / Sureclip 16mm 235cm - [id number] Implanted:Qty: 2 on 05/07/2022 by Luciana Fernandez MD at ENDOSCOPY [facility] Colon MICRO TECH ENDOSCOPY 07/06/2024 [id number] / / Power Port 8fr Sngl Lumen Plas - [id number] Implanted:Qty: 1 on 01/30/2023 by Koko Santiago MD at OR [facility] N/A: Chest CR BARD : PERIPHERAL VASCULAR 07/27/2024 [id number] / / [id number] Power Port 8fr Sngl Lumen Plas - [id number] Implanted:Qty: 1 on 01/30/2023 by Koko Santiago MD at [facility] CR BARD : PERIPHERAL VASCULAR [id number] 07/27/2024 [id number] / / [id number] documented as of this encounter Visit Diagnoses [...] and were consensually agreed upon. Care Teams Aluminum Shingle Roofer Relationship Specialty Start Date End Date Mauro Watson DO [address] [place] [address] PCP - General Family Medicine 04/13/19 documented as of this encounter
--- OUTSIDE RECORDS SUMMARY | 2024-02-19 09:20 | External Medical Summary | Summary of Care ---
Author Name Unknown Organization [facility] Address [address] [place] [address] Phone [phone] Care Team Providers Care Cio Name Role Phone Mauro Watson DO Primary [...] lung, unspecified part of lung (HCC) Procedures [place] INJ. PEMETREXED NOS 10MG [place] CARBOPLATIN INJECTION [place] FOSAPREPITANT INJECTION Lasha Christine MD 200 [facility] [place] [address] Anc Hem/Onc [address] [address] Referral ID Status Reason Start Date Expiration Date V isits Requested Visits Authorized [id number] Authorized 08/22/2023 04/28/2099 999 99 Encounter Details Date Type Department Care Team (Latest Contact Info) Description 01/16/2024 8:45 AM EDT Hem/Onc Treatment Hematology/Oncolog y Treatment, [address] [address] Diane, Chair 7 Hem Onc [address] [place] [phone] Encounter for antineoplastic chemotherapy*; Metastatic carcinoma involving [...] EGFR 72 Lumbar radiculopathy 05/27/2019 Atherosclerosis of [place] co ronary artery of [place] heart with angina pectoris 05/05/2019 History of colon polyps 08/12/2018 ACEI/ARB contraindicated 09/21/2016 Carotid aneurysm, left 09/13/2015 Overview: S/p coil embolization Cerebral aneurysm, nonruptured 09/05/2015 AAA (abdominal aortic aneurysm) 06/20/2015 Overview: S/p repair Bilateral carotid artery disease 06/20/2015 Medical home patient encounter 05/19/2014 Hypertriglyceridemia 05/16/2012 CORON ATHEROSCL MANZANITA CORON VESSEL 07/11/2010 Dyslipidemia, goal LDL below [...] in this encounter Progress Notes * Amy Boogei LPN - 01/16/2024 8:59 AM EDT PRE - ADMINISTRATION DOCUMENTATION Are you experiencing any cold symptoms or fever? No Have you had Guillain-[place] Syndrome (an illness that causes paralysis) within [...] this patient qualify for immunization through the [facility] program because he/she (check only one): [...] Description 02/27/2024 7:40 AM EDT Laboratory Laboratory [facility] [place] 200 [facility] [place] [phone] [place], Lab [facility] 200 [facility] [place] [address] 02/27/2024 8:15 AM EDT Office Visit Hematology/Oncology [facility] [place] [address] [place] [phone] Lasha Christine MD 200 [facility] [address] 02/27/2024 8:45 AM EDT Hem[facility] [address] [place] [phone] Diane, Chair 2 Hem Onc [facility] [address] [place] [address] 04/11/2024 1:20 PM EST Office Visit [facility] [address] [address] Mauro Watson, [address] [place] [address] 04/13/2024 8:30 AM EST Appointment Vascular Lab [place] [address] [place] [address] 04/13/2024 9:40 AM EST Office Visit Vascular Surg [facility] [address] [place] [address] Margarito Cabrera MD [address] [place] [address] 08/13/2024 11:40 AM EDT Office Visit [facility] [address] [place] [address] Mauro Watson DO [address] [place] [address] Scheduled Procedures Name Priority Associated Diagnoses Date/Ti [...] this encounter Medical Devices Implanted Type Area City Mail Carrier Device Identifier Shelf Expiration Date Model / Serial / Lot Stent Main Body Omae-04-90-Zt - [id number] Implanted:Qty: 1 on 06/10/2014 by Ronal Gallegos MD at OR [facility] Aorta [employer] 04/07/2016 TFFB-24-8 2-ZT / / Graft Iliac Leg Spirlz 47l67tx - [id number] Implanted:Qty: 1 on 06/10/2014 by Ronal Gallegos MD at OR [facility] Right: Aorta [employer] 10/09/2015 [id number] / / [id number] Description: Graft Iliac Leg Spirlz 10k88hk - [id number] Implanted:Qty: 1 on 06/10/2014 by Ronal Gallegos MD at OR [facility] Right: Femoral Artery [employer] 11/07/2016 [id number] / / [id number] Stent Polmer 29mm P3110 - [id number] Implanted:Qty: 1 on 06/10/2014 by Ronal Gallegos MD at OR [facility] N/A: Aorta JNJ : CORDIS ENDOVASCULAR 07/26/2018 P3110 / / [id number] Codman Orbit Galaxy Coil 2.5mm X 3.5cm Implanted:Qty: 1 on 09/12/2015 by Arik Shin MD at OR [facility] Left: Head LENORA & L[facility]ORA [facility] 02/26/2017 [id number] / [id number] / [id number] Description:COMPLEX XTRASOFT detachable coil deployed left internal carotid artery Codman Orbit Galaxy Coil 2.5mm X 2.5cm Implanted:Qty: 1 on 09/12/2015 by Arik Shin MD at OR [facility] Left: Head LENORA & [facility]ORA [facility] 01/27/2016 [id number] / [id number] / [id number] Description:COMPLEX XTRASOFT detachable coil deployed left internal carotid artery aneurysm Codman [place] 2 Stent 4mm X 30mm Implanted:Qty: 1 on 09/12/2015 by Arik Shin MD at OR [facility] Left: Head LENORA & LENORA DEPUY 03/26/2018 [id number] / [id number] / [id number] Description:Vascular reconst ruction device deployed in left internal carotid artery Codman Orbit Galaxy Coil 6mm X 20cm Implanted:Qty: 1 on 09/12/2015 by Arik Shin MD at OR [facility] Left: Head L[facility]A & [facility]ORA [facility] 09/26/2016 [id number] / [id number] / [id number] Description:COMPLEX FILL det achable coil deployed left internal carotid artery aneurysm Codman Orbit Galaxy Coil 4mm X 10cm Implanted:Qty: 1 on 09/12/2015 by Arik Shin MD at OR [facility] Left: Head [facility] 10/27/2015 [id number] 0 / [id number] / [id number] Description:COMPLEX XTRASOFT detachable coil deployed left internal carotid artery aneurysm Codman Orbit Galaxy Coil 3.5mm X 9cm Implanted:Qty: 1 on 09/12/2015 by Arik Shin MD at OR [facility] Left: Head LENORA & LENORA CODMAN 12/28/2015 [id number] / [id number] / [id number] Description:COMPLEX XTRASOFT detachable coil deployed left internal carotid artery aneurysm Codman Orbit Galaxy Coil 3mm X 6cm Implanted:Qty: 1 on 09/12/2015 by Arik Shin MD at OR [facility] Left: Head LENORA & LENORA CODMAN 04/28/2017 [id number] / [id number] / [id number] Description:COMPLEX XTRASOFT detachable coil deployed left internal carotid artery aneurysm Lens Intraoc 21.0 - [id number] - [id number] Implanted:Qty: 1 on 11/08/2020 by Yuri Bradley MD at OR [facility] Left: Eye BAUSCH & LOMB 06/26/2025 [id number] / [id number] / [id number] Lens Intraoc 20.5 - [id number] - [id number] Implanted:Qty: 1 on 11/22/2020 by Yuri Bradley MD at OR [facility] Right: Eye BAUSCH & LOMB 07/27/2025 [id number] / [id number] / [id number] Clip Quick 2.8mm 230cm - [id number] Implanted:Qty: 3 on 03/29/2021 by Luciana Fernandez MD at ENDOSCOPY [facility] [employer] 08/27/2023 HX-202UR. A / / Sureclip 16mm 235cm - [id number] Implanted:Qty: 2 on 05/07/2022 by Luciana Fernandez MD at ENDOSCOPY [facility] Colon MICRO TECH ENDOSCOPY 07/06/2024 [id number] / / Power Port 8fr Sngl Lumen Plas - [id number] Implanted:Qty: 1 on 01/30/2023 by Koko Santiago MD at OR [facility] N/A: Chest CR BARD : PERIPHERAL VASCULAR 07/27/2024 [id number] / / [id number] Power Port 8fr Sngl Lumen Plas - [id number] Implanted:Qty: 1 on 01/30/2023 by Koko Santiago MD at [facility] CR BARD : PERIPHERAL VASCULAR [id number] 07/27/2024 [id number] / / [id number] documented as of this encounter Visit Diagnoses [...] and were consensually agreed upon. Care Teams Cio Relationship Specialty Start Date End Date Mauro Watson DO [address] [place] [address] PCP - General Family Medicine 04/13/19 documented as of this encounter
--- OUTSIDE RECORDS SUMMARY | 2024-02-19 09:20 | External Medical Summary | Summary of Care ---
Author Name Unknown Organization [facility] Address [address] [place] [address] Phone [phone] Care Team Providers Care Office Inspector Name Role Phone Mauro Watson DO Primary [...] lung, unspecified part of lung (HCC) Procedures CT INJ. PEMETREXED NOS 10MG CT CARBOPLATIN INJECTION CT FOSAPREPITANT INJECTION Lasha Christine MD 200 [facility] [place] [address] Anc Hem/Onc [address] [address] Referral ID Status Reason Start Date Expiration Date V isits Requested Visits Authorized [id number] Authorized 08/22/2023 04/28/2099 999 99 Encounter Details Date Type Department Care Team (Latest Contact Info) Description 01/16/2024 8:45 AM EDT Hem/Onc Treatment Hematology/Oncolog y Treatment, [address] [address] Diane, Chair 7 Hem Onc [address] [place] [phone] Encounter for antineoplastic chemotherapy*; Metastatic carcinoma involving [...] Lumbar radiculopathy 05/27/2019 Atherosclerosis of [place] co ronary artery of [place] heart with angina pectoris 05/05/2019 History of colon polyps 08/12/2018 ACEI/ARB contraindicated 09/21/2016 Carotid aneurysm, left 09/13/2015 Overview: S/p coil embolization Cerebral aneurysm, nonruptured 09/05/2015 AAA (abdominal aortic aneurysm) 06/20/2015 Overview: S/p repair Bilateral carotid artery disease 06/20/2015 Medical home patient encounter 05/19/2014 Hypertriglyceridemia 05/16/2012 CORON ATHEROSCL HAVASUPAI CORON VESSEL 07/11/2010 Dyslipidemia, goal LDL below [...] in this encounter Progress Notes * Amy Bogoie LPN - 01/16/2024 8:59 AM EDT PRE - ADMINISTRATION DOCUMENTATION Are you experiencing any cold symptoms or fever? No Have you had Guillain-[place] Syndrome (an illness that causes paralysis) within [...] this patient qualify for immunization through the [facility] program because he/she (check only one): Yes-is [...] Description 02/27/2024 7:40 AM EDT Laboratory Laboratory [facility] [place] 200 [facility] [place] [phone] [place], Lab [facility] [address] [facility] [place] [address] 02/27/2024 8:15 AM EDT Office Visit Hematology/Oncology [facility] [place] [address] [place] [phone] Lasha Christine MD 200 [place] [address] 02/27/2024 8:45 AM EDT Hem[facility] [address] [place] [phone] Diane, Chair 2 Hem Onc [facility] [address] [place] [address] 04/11/2024 1:20 PM EST Office Visit [facility] [address] [address] Mauro Watson, [address] [place] [place] [address] 04/13/2024 8:30 AM EST Appointment Vascular Lab [place] [address] [place] [address] 04/13/2024 9:40 AM EST Office Visit Vascular Surg [facility] [address] [place] [address] Margarito Cabrera MD [address] [place] [address] 08/13/2024 11:40 AM EDT Office Visit [facility] [address] [place] [address] Mauro Watson DO [address] [place] [address] Scheduled Procedures Name Priority Associated Diagnoses Date/Ti [...] this encounter Medical Devices Implanted Type Area Mobility Specialist Device Identifier Shelf Expiration Date Model / Serial / Lot Stent Main Body Ltnd-62-28-Zt - [id number] Implanted:Qty: 1 on 06/10/2014 by Ronal Gallegos MD [place] [facility] Aorta [employer] 04/07/2016 TFFB-24-8 2-ZT / / Graft Iliac Leg Spirlz 31g99zv - [id number] Implanted:Qty: 1 on 06/10/2014 by Ronal Gallegos MD at [place] [facility] Right: Aorta [employer] 10/09/2015 [id number] / / [id number] Description: Graft Iliac Leg Spirlz 85m55db - [id number] Implanted:Qty: 1 on 06/10/2014 by Ronal Gallegos MD at [place] [facility] Right: Femoral Artery [employer] 11/07/2016 [id number] / / [id number] Stent Polmer 29mm P3110 - [id number] Implanted:Qty: 1 on 06/10/2014 by Ronal Gallegos MD at [place] [facility] N/A: Aorta JNJ : CORDIS ENDOVASCULAR 07/26/2018 P3110 / / [id number] Codman Orbit Galaxy Coil 2.5mm X 3.5cm Implanted:Qty: 1 on 09/12/2015 by Arik Shin MD at [place] [facility] Left: Head LENORA & [facility] 02/26/2017 [id number] / [id number] / [id number] Description:COMPLEX XTRASOFT detachable coil deployed left internal carotid artery Codman Orbit Galaxy Coil 2.5mm X 2.5cm Implanted:Qty: 1 on 09/12/2015 by Arik Shin MD at [place] [facility] Left: Head LENORA & [facility] 01/27/2016 [id number] / [id number] / [id number] Description:COMPLEX XTRASOFT detachable coil deployed left internal carotid artery aneurysm Codman [place] 2 Stent 4mm X 30mm Implanted:Qty: 1 on 09/12/2015 by Arik Shin MD at [place] [facility] Left: Head LENORA & LENORA DEPUY 03/26/2018 [id number] / [id number] / [id number] Description:Vascular reconst ruction device deployed in left internal carotid artery Codman Orbit Galaxy Coil 6mm X 20cm Implanted:Qty: 1 on 09/12/2015 by Arik Shin MD at [place] [facility] Left: Head LENORA & LENORA [facility] 09/26/2016 [id number] / [id number] / [id number] Description:COMPLEX FILL det achable coil deployed left internal carotid artery aneurysm Codman Orbit Galaxy Coil 4mm X 10cm Implanted:Qty: 1 on 09/12/2015 by Arik Shin MD at [place] [facility] Left: Head LENORA & LENORA [facility] 10/27/2015 [id number] 0 / [id number] / [id number] Description:COMPLEX XTRASOFT detachable coil deployed left internal carotid artery aneurysm Codman Orbit Galaxy Coil 3.5mm X 9cm Implanted:Qty: 1 on 09/12/2015 by Arik Shin MD at [place] [facility] Left: Head LENORA & LENORA CODMAN 12/28/2015 [id number] / [id number] / [id number] Description:COMPLEX XTRASOFT detachable coil deployed left internal carotid artery aneurysm Codman Orbit Galaxy Coil 3mm X 6cm Implanted:Qty: 1 on 09/12/2015 by Arik Shin MD at [place] [facility] Left: Head LENORA & LENORA CODMAN 04/28/2017 [id number] / [id number] / [id number] Description:COMPLEX XTRASOFT detachable coil deployed left internal carotid artery aneurysm Lens Intraoc 21.0 - [id number] - [id number] Implanted:Qty: 1 on 11/08/2020 by Yuri Bradley MD at OR [facility] Left: Eye BAUSCH & LOMB 06/26/2025 [id number] / [id number] / [id number] Lens Intraoc 20.5 - [id number] - [id number] Implanted:Qty: 1 on 11/22/2020 by Yuri Bradley MD at OR [facility] Right: Eye BAUSCH & LOMB 07/27/2025 [id number] / [id number] / [id number] Clip Quick 2.8mm 230cm - [id number] Implanted:Qty: 3 on 03/29/2021 by Luciana Fernandez MD at ENDOSCOPY [facility] [employer] 08/27/2023 HX-202UR. A / / Sureclip 16mm 235cm - [id number] Implanted:Qty: 2 on 05/07/2022 by Luciana Fernandez MD at ENDOSCOPY [facility] Colon MICRO TECH ENDOSCOPY 07/06/2024 [id number] / / Power Port 8fr Sngl Lumen Plas - [id number] Implanted:Qty: 1 on 01/30/2023 by Koko Santiago MD at OR [facility] N/A: Chest CR BARD : PERIPHERAL VASCULAR 07/27/2024 [id number] / / [id number] Power Port 8fr Sngl Lumen Plas - [id number] Implanted:Qty: 1 on 01/30/2023 by Koko Santiago MD at [facility] CR BARD : PERIPHERAL VASCULAR [id number] 07/27/2024 [id number] / / [id number] documented as of this encounter Visit Diagnoses [...] and were consensually agreed upon. Care Teams Office Inspector Relationship Specialty Start Date End Date Mauro Watson DO [address] [place] [address] PCP - General Family Medicine 04/13/19 documented as of this encounter
--- OUTSIDE RECORDS SUMMARY | 2024-02-19 09:20 | External Medical Summary | Summary of Care ---
Author Name Unknown Organization [facility] Address [address] [place] [address] Phone [phone] Care Team Providers Care Quality Supervisor Name Role Phone Mauro Watson DO Primary [...] lung, unspecified part of lung (HCC) Procedures SC INJ. PEMETREXED NOS 10MG SC CARBOPLATIN INJECTION SC FOSAPREPITANT INJECTION Lasha Christine MD 200 [facility] [place] [address] Anc Hem/Onc [address] [address] Referral ID Status Reason Start Date Expiration Date V isits Requested Visits Authorized [id number] Authorized 08/22/2023 04/28/2099 999 99 Encounter Details Date Type Department Care Team (Latest Contact Info) Description 01/16/2024 8:45 AM EDT Hem/Onc Treatment Hematology/Oncolog y Treatment, [address] [address] Diane, Chair 7 Hem Onc [address] [place] [id number] Encounter for antineoplastic chemotherapy*; Metastatic carcinoma involving [...] EGFR 72 Lumbar radiculopathy 05/27/2019 Atherosclerosis of [place] co ronary artery of [place] heart with angina pectoris 05/05/2019 History of colon polyps 08/12/2018 ACEI/ARB contraindicated 09/21/2016 Carotid aneurysm, left 09/13/2015 Overview: S/p coil embolization Cerebral aneurysm, nonruptured 09/05/2015 AAA (abdominal aortic aneurysm) 06/20/2015 Overview: S/p repair Bilateral carotid artery disease 06/20/2015 Medical home patient encounter 05/19/2014 Hypertriglyceridemia 05/16/2012 CORON ATHEROSCL [place] CORON VESSEL 07/11/2010 Dyslipidemia, goal LDL below [...] symptoms or fever? No Have you had Guillain-[place] Syndrome (an illness that causes paralysis) within [...] this patient qualify for immunization through the [facility] program because he/she (check only one): [...] Description 02/27/2024 7:40 AM EDT Laboratory Laboratory [facility] [place] [address] [facility] [place] [phone] [place], Lab [facility] [address] [facility] [place] [address] 02/27/2024 8:15 AM EDT Office Visit Hematology/Oncology [facility] [place] [address] [place] [phone] Lasha Christine MD 200 [place] [address] 02/27/2024 8:45 AM EDT [facility] [address] [place] [phone] Diane, Chair 2 Hem Onc [facility] [address] [place] [address] 04/11/2024 1:20 PM EST Office Visit [facility] [address] [address] Mauro Watson, [address] [place] [address] 04/13/2024 8:30 AM EST Appointment Vascular Lab [place] [address] [place] [address] 04/13/2024 9:40 AM EST Office Visit Vascular Surg [facility] [address] [place] [address] Margarito Cabrera MD [address] [place] [address] 08/13/2024 11:40 AM EDT Office Visit [facility] [address] [place] [address] Mauro Watson DO [address] [place] [address] Scheduled Procedures Name Priority Associated Diagnoses Date/Ti [...] this encounter Medical Devices Implanted Type Area Cleaner And Dyer Device Identifier Shelf Expiration Date Model / Serial / Lot Stent Main Body Hywj-75-63-Zt - [id number] Implanted:Qty: 1 on 06/10/2014 by Ronal Gallegos MD [place] [facility] Aorta [employer] 04/07/2016 TFFB-24-8 2-ZT / / Graft Iliac Leg Spirlz 62o55zz - [id number] Implanted:Qty: 1 on 06/10/2014 by Ronal Gallegos MD [place] [facility] Right: Aorta [employer] 10/09/2015 [id number] / / [id number] Description: Graft Iliac Leg Spirlz 43w55bq - [id number] Implanted:Qty: 1 on 06/10/2014 by Ronal Gallegos MD at [place] [facility] Right: Femoral Artery [employer] 11/07/2016 [id number] / / [id number] Stent Polmer 29mm P3110 - [id number] Implanted:Qty: 1 on 06/10/2014 by Ronal Gallegos MD at [place] [facility] N/A: Aorta JNJ : CORDIS ENDOVASCULAR 07/26/2018 P3110 / / [id number] Codman Orbit Galaxy Coil 2.5mm X 3.5cm Implanted:Qty: 1 on 09/12/2015 by Arik Shin MD at [place] [facility] Left: Head [facility] 02/26/2017 [id number] / [id number] / [id number] Description:COMPLEX XTRASOFT detachable coil deployed left internal carotid artery Codman Orbit Galaxy Coil 2.5mm X 2.5cm Implanted:Qty: 1 on 09/12/2015 by Arik Shin MD at [place] [facility] Left: Head [facility] [employer] [facility] 01/27/2016 [id number] / [id number] / [id number] Description:COMPLEX XTRASOFT detachable coil deployed left internal carotid artery aneurysm Codman [place] 2 Stent 4mm X 30mm Implanted:Qty: 1 on 09/12/2015 by Arik Shin MD at [place] [facility] Left: Head LENORA [employer] LENORA DEPUY 03/26/2018 [id number] / [id number] / [id number] Description:Vascular reconst ruction device deployed in left internal carotid artery Codman Orbit Galaxy Coil 6mm X 20cm Implanted:Qty: 1 on 09/12/2015 by Arik Shin MD at [place] [facility] Left: Head L[facility]A & [facility]A [facility] 09/26/2016 [id number] / [id number] / [id number] Description:COMPLEX FILL det achable coil deployed left internal carotid artery aneurysm Codman Orbit Galaxy Coil 4mm X 10cm Implanted:Qty: 1 on 09/12/2015 by Arik Shin MD at [place] [facility] Left: Head [facility] 10/27/2015 [id number] / [id number] / [id number] Description:COMPLEX XTRASOFT detachable coil deployed left internal carotid artery aneurysm Codman Orbit Galaxy Coil 3.5mm X 9cm Implanted:Qty: 1 on 09/12/2015 by Arik Shin MD at [place] [facility] Left: Head LENORA [employer] LENORA CODMAN 12/28/2015 [id number] / [id number] / [id number] Description:COMPLEX XTRASOFT detachable coil deployed left internal carotid artery aneurysm Codman Orbit Galaxy Coil 3mm X 6cm Implanted:Qty: 1 on 09/12/2015 by Arik Shin MD at [place] [facility] Left: Head LENORA & LENORA CODMAN 04/28/2017 [id number] / [id number] / [id number] Description:COMPLEX XTRASOFT detachable coil deployed left internal carotid artery aneurysm Lens Intraoc 21.0 - [id number] - [id number] Implanted:Qty: 1 on 11/08/2020 by Yuri Bradley MD at OR [facility] Left: Eye BAUSCH & LOMB 06/26/2025 [id number] / [id number] / [id number] Lens Intraoc 20.5 - [id number] - [id number] Implanted:Qty: 1 on 11/22/2020 by Yuri Bradley MD at OR [facility] Right: Eye BAUSCH & LOMB 07/27/2025 [id number] / [id number] / [id number] Clip Quick 2.8mm 230cm - [id number] Implanted:Qty: 3 on 03/29/2021 by Luciana Fernandez MD at ENDOSCOPY [facility] [employer] 08/27/2023 HX-202UR. A / / Sureclip 16mm 235cm - [id number] Implanted:Qty: 2 on 05/07/2022 by Luciana Fernandez MD at ENDOSCOPY [facility] Colon MICRO TECH ENDOSCOPY 07/06/2024 [id number] / / Power Port 8fr Sngl Lumen Plas - [id number] Implanted:Qty: 1 on 01/30/2023 by Koko Santiago MD at OR [facility] N/A: Chest CR BARD : PERIPHERAL VASCULAR 07/27/2024 [id number] / / [id number] Power Port 8fr Sngl Lumen Plas - [id number] Implanted:Qty: 1 on 01/30/2023 by Koko Santiago MD at [facility] CR BARD : PERIPHERAL VASCULAR [id number] 07/27/2024 [id number] / / [id number] documented as of this encounter Visit Diagnoses [...] and were consensually agreed upon. Care Teams Quality Supervisor Relationship Specialty Start Date End Date Mauro Watson DO [address] [place] [address] PCP - General Family Medicine 04/13/19 documented as of this encounter
--- OUTSIDE RECORDS SUMMARY | 2024-02-19 09:20 | External Medical Summary | Summary of Care ---
Author Name Unknown Organization [facility] Address [address] [place] [address] Phone [phone] Care Team Providers Care Facilities Management Executive Name Role Phone Mauro Watson DO Primary [...] lung, unspecified part of lung (HCC) Procedures [place] INJ. PEMETREXED NOS 10MG MO CARBOPLATIN INJECTION MO FOSAPREPITANT INJECTION Lasha Christine MD 200 [facility] [place] [address] Anc Hem/Onc [address] [address] Referral ID Status Reason Start Date Expiration Date V isits Requested Visits Authorized [id number] Authorized 08/22/2023 04/28/2099 999 99 Encounter Details Date Type Department Care Team (Latest Contact Info) Description 01/16/2024 8:45 AM EDT Hem/Onc Treatment Hematology/Oncolog y Treatment, [address] [phone] Diane, Chair 7 Hem Onc [address] [place] [phone] Encounter for antineoplastic chemotherapy*; Metastatic carcinoma involving [...] EGFR 72 Lumbar radiculopathy 05/27/2019 Atherosclerosis of [place] co ronary artery of [place] heart with angina pectoris 05/05/2019 History of colon polyps 08/12/2018 ACEI/ARB contraindicated 09/21/2016 Carotid aneurysm, left 09/13/2015 Overview: S/p coil embolization Cerebral aneurysm, nonruptured 09/05/2015 AAA (abdominal aortic aneurysm) 06/20/2015 Overview: S/p repair Bilateral carotid artery disease 06/20/2015 Medical home patient encounter 05/19/2014 Hypertriglyceridemia 05/16/2012 CORON ATHEROSCL [place] CORON VESSEL 07/11/2010 Dyslipidemia, goal LDL below [...] symptoms or fever? No Have you had Guillain-[place] Syndrome (an illness that causes paralysis) within [...] this patient qualify for immunization through the [facility] program because he/she (check only one): [...] Description 02/27/2024 7:40 AM EDT Laboratory Laboratory [facility] [place] [address] [facility] [place] [phone] [place], Lab [facility] [address] [facility] [place] [address] 02/27/2024 8:15 AM EDT Office Visit Hematology/Oncology [facility] [place] [address] [place] [phone] Lasha Christine MD 200 [facility] [place] [address] 02/27/2024 8:45 AM EDT Hem[facility] [address] [place] [phone] Diane, Chair 2 Hem Onc [facility] [address] [place] [address] 04/11/2024 1:20 PM EST Office Visit [facility] [address] [address] Mauro Watson, [address] [place] [address] 04/13/2024 8:30 AM EST Appointment Vascular Lab [place] [address] [place] [address] 04/13/2024 9:40 AM EST Office Visit Vascular Surg [facility] [address] [place] [address] Margarito Cabrera MD [address] [place] [address] 08/13/2024 11:40 AM EDT Office Visit [facility] [address] [place] [address] Mauro Watson DO [address] [place] [address] Scheduled Procedures Name Priority Associated Diagnoses Date/Ti [...] this encounter Medical Devices Implanted Type Area Place Change Roof Bolter Device Identifier Shelf Expiration Date Model / Serial / Lot Stent Main Body Kjby-40-53-Zt - [id number] Implanted:Qty: 1 on 06/10/2014 by Ronal Gallegos MD at OR [facility] Aorta [employer] 04/07/2016 TFFB-24-8 2-ZT / / Graft Iliac Leg Spirlz 89y90om - [id number] Implanted:Qty: 1 on 06/10/2014 by Ronal Gallegos MD at OR [facility] Right: Aorta [employer] 10/09/2015 [id number] / / [id number] Description: Graft Iliac Leg Spirlz 48d92vn - [id number] Implanted:Qty: 1 on 06/10/2014 by Ronla Gallegos MD at OR [facility] Right: Femoral Artery [employer] 11/07/2016 [id number] / / [id number] Stent Polmer 29mm P3110 - [id number] Implanted:Qty: 1 on 06/10/2014 by Ronal Gallegos MD at OR [facility] N/A: Aorta JNJ : CORDIS ENDOVASCULAR 07/26/2018 P3110 / / [id number] Codman Orbit Galaxy Coil 2.5mm X 3.5cm Implanted:Qty: 1 on 09/12/2015 by Arik Shin MD at OR [facility] Left: Head [facility] 02/26/2017 [id number] / [id number] / [id number] Description:COMPLEX XTRASOFT detachable coil deployed left internal carotid artery Codman Orbit Galaxy Coil 2.5mm X 2.5cm Implanted:Qty: 1 on 09/12/2015 by Arik Shin MD at OR [facility] Left: Head [facility] 01/27/2016 [id number] / [id number] / [id number] Description:COMPLEX XTRASOFT detachable coil deployed left internal carotid artery aneurysm Codman [place] 2 Stent 4mm X 30mm Implanted:Qty: 1 on 09/12/2015 by Arik Shin MD at OR [facility] Left: Head LENORA & LENORA DEPUY 03/26/2018 [id number] / [id number] / [id number] Description:Vascular reconst ruction device deployed in left internal carotid artery Codman Orbit Galaxy Coil 6mm X 20cm Implanted:Qty: 1 on 09/12/2015 by Arik Shin MD at OR [facility] Left: Head LENORA & [facility]ORA [facility] 09/26/2016 [id number] / [id number] / [id number] Description:COMPLEX FILL det achable coil deployed left internal carotid artery aneurysm Codman Orbit Galaxy Coil 4mm X 10cm Implanted:Qty: 1 on 09/12/2015 by Arik Shin MD at OR [facility] Left: Head [facility] 10/27/2015 [id number] 0 / [id number] / [id number] Description:COMPLEX XTRASOFT detachable coil deployed left internal carotid artery aneurysm Codman Orbit Galaxy Coil 3.5mm X 9cm Implanted:Qty: 1 on 09/12/2015 by Arik Shin MD at OR [facility] Left: Head LENORA [employer] LENORA CODMAN 12/28/2015 [id number] / [id number] / [id number] Description:COMPLEX XTRASOFT detachable coil deployed left internal carotid artery aneurysm Codman Orbit Galaxy Coil 3mm X 6cm Implanted:Qty: 1 on 09/12/2015 by Arik Shin MD at OR [facility] Left: Head LENORA [employer] LENORA CODMAN 04/28/2017 [id number] / [id number] / [id number] Description:COMPLEX XTRASOFT detachable coil deployed left internal carotid artery aneurysm Lens Intraoc 21.0 - [id number] - [id number] Implanted:Qty: 1 on 11/08/2020 by Yuri Bradley MD at OR [facility] Left: Eye BAUSCH & LOMB 06/26/2025 [id number] / [id number] / [id number] Lens Intraoc 20.5 - [id number] - [id number] Implanted:Qty: 1 on 11/22/2020 by Yuri Bradley MD at OR [facility] Right: Eye BAUSCH & LOMB 07/27/2025 [id number] / [id number] / [id number] Clip Quick 2.8mm 230cm - [id number] Implanted:Qty: 3 on 03/29/2021 by Luciana Fernandez MD at ENDOSCOPY [facility] [employer] 08/27/2023 HX-202UR. A / / Sureclip 16mm 235cm - [id number] Implanted:Qty: 2 on 05/07/2022 by Luciana Fernandez MD at ENDOSCOPY [facility] Colon MICRO TECH ENDOSCOPY 07/06/2024 [id number] / / Power Port 8fr Sngl Lumen Plas - [id number] Implanted:Qty: 1 on 01/30/2023 by Koko Santiago MD at OR [facility] N/A: Chest CR BARD : PERIPHERAL VASCULAR 07/27/2024 [id number] / / [id number] Power Port 8fr Sngl Lumen Plas - [id number] Implanted:Qty: 1 on 01/30/2023 by Koko Santiago MD at [facility] CR BARD : PERIPHERAL VASCULAR [id number] 07/27/2024 [id number] / / [id number] documented as of this encounter Visit Diagnoses [...] and were consensually agreed upon. Care Teams Facilities Management Executive Relationship Specialty Start Date End Date Mauro Watson DO [address] [address] PCP - General Family Medicine 04/13/19 documented as of this encounter
--- OUTSIDE RECORDS SUMMARY | 2024-02-19 09:21 | External Medical Summary | Summary of Care ---
Author Name Unknown Organization [facility] Address [address] [place] [address] Phone [phone] Care Team Providers Care Weatherization Crew Leader Name Role Phone Mauro Watson DO Primary Care Provider Reason for Visit * Reason Comments Outpatient Testing Encounter Details Date Type Department Care Team (Latest Contact Info) Description 02/06/2024 9:00 AM EDT Laboratory Laboratory [facility] [place] [address] [place] [phone] [place], Lab Scenery [address] [place] [address] Cholangiocarcinoma (HCC); Encounter for antineoplastic chemotherapy; 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); Other abnormal tumor markers Allergies Active Allergy Reactions Criticality Noted Date Comments Aspirin Bleeding High 11/26/2011 Significant hemorroidal bleed on aspirin,high doses Duloxetine Hcl Hypertension 01/26/2020 documented as of this encounter (statuses as of 02/06/2024) Medications Medication Sig Dispensed Refills Start Date [...] as of this encounter (statuses as of 02/06/2024) Active Problems Problem Noted Date Diagnosed Date Malignant neoplasm of left lung 08/23/2023 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 01/21/2023 Encounter for antineoplastic chemotherapy 2022 Medical marijuana use 08/26/2021 CKD (chronic kidney disease), stage II 2 Overview: EGFR 72 Lumbar radiculopathy 05/27/2019 Atherosclerosis of [place] co ronary artery of [place] heart with angina pectoris 05/05/2019 History of [...] as of this encounter (statuses as of 02/06/2024) Resolved Problems Problem Noted Date Diagnosed Date Resolved Date Atypical chest pain 01/20/2018 08/27/19 Lower GI bleeding 12/31/2015 02/14/2017 Palpitations 03/10/2015 [...] as of this encounter (statuses as of 02/06/2024) Immunizations Name Administration Dates Next Due COVID-19 [...] No 09/12/2015 documented as of this encounter Plan of Treatment Upcoming Encounters Date Type Department Care Team (Late st Contact Info) Description 02/06/2024 10:00 AM EDT Hem/Onc Treatment Hematology/Oncology Treatment, [place] [address] [place] [address] Diane, Chair 9 Hem Onc Scenery [address] [place] [address] Arrived 02/27/2024 7:40 AM EDT Laboratory Laboratory [facility] [address] [place] [phone] [place], Lab Scenery [address] [place] [address] 02/27/2024 8:15 AM EDT Office Visit Hematology/Oncology [facility] [address] [place], [place] [phone] Lasha Christine MD [address] [place], [place] [address] 02/27/2024 8:45 AM EDT [facility] [address] [place], [place] [phone] Diane, Chair 2 Hem Onc Scenery [address] [place], [place] [address] 04/11/2024 1:20 PM EST Office [facility] [place] [address] Mauro Watson DO [address] [facility] [place] [address] 04/13/2024 8:30 AM EST Appointment Vascular Lab [address] [address] 04/13/2024 9:40 AM EST Office Visit Vascular Surg [address] [address] Margarito Cabrera MD [facility] [place] [address] 08/13/2024 11:40 AM EDT Office Visit [facility] [address] [place] [address] Mauro Watson, [address] [place] [address] Pending Results Name Type Priority Associated Diagnoses Date /Time CEA Lab STAT Cholangiocarcinoma (HCC) Encounter for antineoplastic chemotherapy 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) Other abnormal tumor markers 02/06/2024 9:20 AM EDT COMPREHENSIVE METABOLIC PANEL Lab STAT Cholangiocarcinoma (HCC) Encounter for antineoplastic chemotherapy 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) Other abnormal tumor markers 02/06/2024 9:20 AM EDT CBC WITH WBC DIFFERENTIAL Lab STAT Cholangiocarcinoma (HCC) Encounter for antineoplastic chemotherapy 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) Other abnormal tumor markers 02/06/2024 9:20 AM EDT CBC Lab STAT Cholangiocarcinoma (HCC) Encounter for antineoplastic chemotherapy 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) Other abnormal tumor markers 02/06/2024 9:20 AM EDT DIFFERENTIAL, AUTOMATED Lab STAT Cholangiocarcinoma (HCC) Encounter for antineoplastic chemotherapy 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) Other abnormal tumor markers 02/06/2024 9:20 AM EDT Scheduled Procedures Name Priority Associated Diagnoses Date/Ti [...] 02/06/2022, 05/11/2021, 12/13/2020, Additional history exists GFR 01/15/2025 01/16/2024, 11/28, 12/05/2023, Additional history exists Albumin/Creatinine Ratio 05/17/2025 05/17/2022, [...] this encounter Medical Devices Implanted Type Area Cloth Shrinking Machine Operator Device Identifier Shelf Expiration Date Model / Serial / Lot Stent Main Body Udzt-81-03-Zt - [id number] Implanted:Qty: 1 on 06/10/2014 by Ronal [place] [facility] [place] Aorta [employer] [place] [employer] 04/07/2016 [facility]-24-8 2-ZT / / Graft Iliac Leg Spirlz 21t87uu - [id number] Implanted:Qty: 1 on 06/10/2014 by Ronal Gallegos MD [place] [facility] [place] Right: Aorta [employer] [place] [employer] 10/09/2015 [id number] / / [id number] Description: Graft Iliac Leg Spirlz 81c77cp - [id number] Implanted:Qty: 1 on 06/10/2014 by Ronal Gallegos MD [place] [facility] [place] Right: Femoral Artery [employer] 11/07/2016 [id number] / / [id number] Stent Polmer 29mm P3110 - [id number] Implanted:Qty: 1 on 06/10/2014 by Ronal Gallegos MD [place] [facility] [place] N/A: Aorta JNJ : [employer] 07/26/2018 [id number] / / [id number] Codman Orbit Galaxy Coil 2.5mm X 3.5cm Implanted:Qty: 1 on 09/12/2015 by Arik Shin MD [place] [facility] [place] Left: Head [employer]A [employer]EN[employer] CODMAN 02/26/2017 [id number] / [id number] / [id number] Description:COMPLEX XTRASOFT detachable coil deployed left internal carotid artery Codman Orbit Galaxy Coil 2.5mm X 2.5cm Implanted:Qty: 1 on 09/12/2015 by Arik Shin MD [place] [facility] [place]: Head [facility] 01/27/2016 [id number] / [id number] / [id number] Description:COMPLEX XTRASOFT detachable coil deployed left internal carotid artery aneurysm Codman [place] 2 Stent 4mm X 30mm Implanted:Qty: 1 on 09/12/2015 by Arik Shin MD [place] [facility] [place] Left: Head LENORA [employer] LENORA DEPUY 03/26/2018 [id number] / [id number] / [id number] Description:Vascular reconst ruction device deployed in left internal carotid artery Codman Orbit Galaxy Coil 6mm X 20cm Implanted:Qty: 1 on 09/12/2015 by Arik Shin MD [place] [facility] [place] Left: Head [facility] 09/26/2016 [id number] / [id number] / [id number] Description:COMPLEX FILL det achable coil deployed left internal carotid artery aneurysm Codman Orbit Galaxy Coil 4mm X 10cm Implanted:Qty: 1 on 09/12/2015 by Arik Shin MD [place] [facility] [place] Left: Head [employer]EN[employer] COD[employer] 10/27/2015 [id number] / [id number] / [id number] Description:COMPLEX XTRASOFT detachable coil deployed left internal carotid artery aneurysm Codman Orbit Galaxy Coil 3.5mm X 9cm Implanted:Qty: 1 on 09/12/2015 by Arik Shin MD [place] [facility] [place] Left: Head L[employer]A [employer] LEN[employer]A CODMAN 12/28/2015 [id number] / [id number] / [id number] Description:COMPLEX XTRASOFT detachable coil deployed left internal carotid artery aneurysm Codman Orbit Galaxy Coil 3mm X 6cm Implanted:Qty: 1 on 09/12/2015 by Arik Shin MD [place] [facility] [place] Left: Head LEN[employer]A [employer]EN[employer]A COD[employer] 04/28/2017 [id number] / [id number] / [id number] Description:COMPLEX XTRASOFT detachable coil deployed left internal carotid artery aneurysm Lens Intraoc 21.0 - [id number] - [id number] Implanted:Qty: 1 on 11/08/2020 by Yuri Bradley MD at OR [facility] Left: Eye [employer]CH [employer] LOMB 06/26/2025 [id number] / [id number] / [id number] Lens Intraoc 20.5 - [id number] - [id number] Implanted:Qty: 1 on 11/22/2020 by Yuri Bradley MD at OR [facility] Right: Eye BAUSCH & LOMB 07/27/2025 [id number] / [id number] / [id number] Clip Quick 2.8mm 230cm - [id number] Implanted:Qty: 3 on 03/29/2021 by Luciana Fernandez MD at ENDOSCOPY [facility] [employer] 08/27/2023 HX-202UR. A / / Sureclip 16mm 235cm - [id number] Implanted:Qty: 2 on 05/07/2022 by Luciana Fernandez MD at ENDOSCOPY [facility] Colon MICRO TECH ENDOSCOPY 07/06/2024 [id number] / / Power Port 8fr Sngl Lumen Plas - [id number] Implanted:Qty: 1 on 01/30/2023 by Koko Santiago MD at OR [facility] N/A: Chest CR BARD : PERIPHERAL VASCULAR 07/27/2024 [id number] / / [id number] Power Port 8fr Sngl Lumen Plas - [id number] Implanted:Qty: 1 on 01/30/2023 by Koko Santiago MD at OR [facility] CR BARD : PERIPHERAL VASCULAR [id number] 07/27/2024 [id number] / / [id number] documented as of this encounter Visit Diagnoses Diagnosis Cholangiocarcinoma (HCC) Malignant neoplasm of intrahepatic bile ducts Encounter for antineoplastic chemotherapy 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) Other abnormal tumor markers documented in this encounter Advance Directives * Full Code (Latest Code Status on File) Date Activated Date Inactivated Comments 09/12/2015 11:01 AM 09/13/2015 2:50 PM This order reflects the patients wishes and were consensually agreed upon. * Full Code Date Activated Date Inactivated Comments 06/10/2014 10:48 AM 06/11/2014 8:37 PM This order reflects the patients wishes and were consensually agreed upon. Care Teams Weatherization Crew Leader Relationship Specialty Start Date End Date Mauro Watson DO [address] [facility] [place] [address] PCP - General Family Medicine 04/13/19 documented as of this encounter
--- OUTSIDE RECORDS SUMMARY | 2024-02-19 09:21 | External Medical Summary | Summary of Care ---
Author Name Unknown Organization [facility] Address [address] [place] [address] Phone [phone] Care Team Providers Care Landscaper Name Role Phone Watson Mauro Leonardogordy Primary Care Provider Reason for Visit * Reason Onset Date Comments Advice 02/07/2024 Emmett Encounter Details Date Type Department Care Team (Late st Contact Info) Description 02/07/2024 Telephone Hematology/Oncology [facility] [place] [address] [facility] [place] [phone] Lasha Christine MD [address] [place] [address] Advice (Emmett) Allergies Active Allergy Reactions Criticality Noted Date Comments Aspirin Bleeding High 11/26/2011 Significant hemorroidal bleed on aspirin,high doses Duloxetine Hcl Hypertension 01/26/2020 documented as of this encounter (statuses as of 02/08/2024) Medications Medication Sig Dispensed Refills Start Date [...] as of this encounter (statuses as of 02/08/2024) Active Problems Problem Noted Date Diagnosed Date Malignant neoplasm of left lung 08/23/2023 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 01/21/2023 Encounter for antineoplastic chemotherapy 2022 Medical marijuana use 08/26/2021 CKD (chronic kidney disease), stage II 2 Overview: EGFR 72 Lumbar radiculopathy 05/27/2019 Atherosclerosis of [place] co ronary artery of [place] heart with angina pectoris 05/05/2019 History of colon polyps 08/12/2018 ACEI/ARB contraindicated 09/21/2016 Carotid aneurysm, left 09/13/2015 Overview: S/p coil embolization Cerebral aneurysm, nonruptured 09/05/2015 AAA (abdominal aortic aneurysm) 06/20/2015 Overview: S/p repair Bilateral carotid artery disease 06/20/2015 Medical home patient encounter 05/19/2014 Hypertriglyceridemia 05/16/2012 CORON ATHEROSCL FALSE PASS CORON VESSEL 07/11/2010 Dyslipidemia, goal LDL [...] as of this encounter (statuses as of 02/08/2024) Resolved Problems Problem Noted Date Diagnosed Date [...] as of this encounter (statuses as of 02/08/2024) Immunizations Name Administration Dates Next Due COVID-19 [...] encounter Miscellaneous Notes * Telephone Encounter - Lasha Christine MD [...] Description 02/27/2024 7:40 AM EDT Laboratory Laboratory [facility] [place] [address] [facility] [place] [phone] [place] [facility] [place] [address] [address]ini Ang [facility] [place] [address] 02/27/2024 8:15 AM EDT Office Visit Hematology/Oncology [facility] [place] [address] [place] [phone] Lasha Christine MD [address] [facility] [place] [address] 02/27/2024 8:45 AM EDT Hem/Onc Treatment Hematology/Oncology Treatment, [place] [address] [facility] [place] [phone] Diane, Chair 2 Hem Onc Scenery [address] [place], [place] [address] 04/11/2024 1:20 PM EST Office Visit [facility] [address] [place] [address] Mauro Watson, [address] [place] [address] 04/13/2024 8:30 AM EST Appointment Vascular Lab [place] [address] [place] [address] 04/13/2024 9:40 AM EST Office Visit Vascular Surg [place] [address] [place] [address] Margarito Cabrera MD [address] [place] [address] 08/13/2024 11:40 AM EDT [facility] [place] [address] Mauro Watson, [facility] [address] Scheduled Procedures Name Priority Associated Diagnoses Date/Ti [...] this encounter Medical Devices Implanted Type Area Rehabilitation Case Coordinator Device Identifier Shelf Expiration Date Model / Serial / Lot Stent Main Body Vyzh-07-93-Zt - [id number] Implanted:Qty: 1 on 06/10/2014 by Ronal Gallegos MD [place] [facility] [place] Aorta [employer] 04/07/2016 TFFB-24-8 2-ZT / / Graft Iliac Leg Spirlz [id number] - [id number] Implanted:Qty: 1 on 06/10/2014 by Ronal Gallegos MD [place] [facility] [place] Right: Aorta [employer] 10/09/2015 [id number] / / [id number] Description: Graft Iliac Leg Spirlz 66c73pq - [id number] Implanted:Qty: 1 on 06/10/2014 by Ronal Gallegos MD [place] [facility] [place] Right: Femoral Artery [employer] 11/07/2016 [id number] / / [id number] Stent Polmer 29mm P3110 - [id number] Implanted:Qty: 1 on 06/10/2014 by Ronal Gallegos MD [place] [facility] [place] N/A: Aorta JNJ : [employer]IS ENDOVASC[employer] 07/26/2018 P3110 / / [id number] Codman Orbit Galaxy Coil 2.5mm X 3.5cm Implanted:Qty: 1 on 09/12/2015 by Arik Shin MD [place] [facility] [place] Left: Head [employer] L[employer]A [employer] 02/26/2017 [id number] / [id number] / [id number] Description:COMPLEX XTRASOFT detachable coil deployed left internal carotid artery Codman Orbit Galaxy Coil 2.5mm X 2.5cm Implanted:Qty: 1 on 09/12/2015 by Arik Shin MD [place] [facility] [place] Left: Head [employer] 01/27/2016 [id number] / [id number] / [id number] Description:COMPLEX XTRASOFT detachable coil deployed left internal carotid artery aneurysm Codman [place] 2 Stent 4mm X 30mm Implanted:Qty: 1 on 09/12/2015 by Arik Shin MD at [place] [facility] [place] Left: Head L[employer]A [employer] LENORA DEPUY 03/26/2018 [id number] / [id number] / [id number] Description:Vascular reconst ruction device deployed in left internal carotid artery Codman Orbit Galaxy Coil 6mm X 20cm Implanted:Qty: 1 on 09/12/2015 by Arik Shin MD [place] [facility] [place] Left: Head [employer] 09/26/2016 [id number] / [id number] / [id number] Description:COMPLEX FILL det achable coil deployed left internal carotid artery aneurysm Codman Orbit Galaxy Coil 4mm X 10cm Implanted:Qty: 1 on 09/12/2015 by Arik Shin MD at [place] [facility] [place] Left: Head [employer]A [employer] 10/27/2015 [id number] 0 / [id number] / [id number] Description:COMPLEX XTRASOFT detachable coil deployed left internal carotid artery aneurysm Codman Orbit Galaxy Coil 3.5mm X 9cm Implanted:Qty: 1 on 09/12/2015 by Arik Shin MD [place] [facility] [place] Left: Head [employer] 12/28/2015 [id number] / [id number] / [id number] Description:COMPLEX XTRASOFT detachable coil deployed left internal carotid artery aneurysm Codman Orbit Galaxy Coil 3mm X 6cm Implanted:Qty: 1 on 09/12/2015 by Arik Shin MD at [place] [facility] [place] Left: Head [employer] 04/28/2017 [id number] / [id number] / [id number] Description:COMPLEX XTRASOFT detachable coil deployed left internal carotid artery aneurysm Lens Intraoc 21.0 - [id number] - [id number] Implanted:Qty: 1 on 11/08/2020 by Yuri Bradley MD at OR [facility] Left: Eye [employer]OM[employer] 06/26/2025 [id number] / [id number] / [id number] Lens Intraoc 20.5 - [id number] - [id number] Implanted:Qty: 1 on 11/22/2020 by Yuri Bradley MD at OR [facility] Right: Eye BAUSCH & LOMB 07/27/2025 [id number] / [id number] / [id number] Clip Quick 2.8mm 230cm - [id number] Implanted:Qty: 3 on 03/29/2021 by Luciana Fernandez MD at ENDOSCOPY [facility] [employer] 08/27/2023 HX-202UR. A / / Sureclip 16mm 235cm - [id number] Implanted:Qty: 2 on 05/07/2022 by Luciana Fernandez MD at ENDOSCOPY [facility] Colon MICRO TECH ENDOSCOPY 07/06/2024 [id number] / / Power Port 8fr Sngl Lumen Plas - [id number] Implanted:Qty: 1 on 01/30/2023 by Koko Santiago MD at OR [facility] N/A: Chest CR BARD : PERIPHERAL VASCULAR 07/27/2024 [id number] / / [id number] Power Port 8fr Sngl Lumen Plas - [id number] Implanted:Qty: 1 on 01/30/2023 by Koko Santiago MD at OR [facility] BARD : PERIPHERAL VASCULAR [id number] 07/27/2024 [id number] / / [id number] documented as of this encounter Advance Directives [...] and were consensually agreed upon. Care Teams Landscaper Relationship Specialty Start Date End Date Mauro Watson DO [address] [place] [address] PCP - General Family Medicine 04/13/19 documented as of this encounter
--- OUTSIDE RECORDS SUMMARY | 2024-02-19 09:21 | External Medical Summary | Summary of Care ---
Author Name Unknown Organization [facility] Address [address] [place] [address] Phone [phone] Care Team Providers Care Maintenance Mgr Name Role Phone Mauro Watson DO Primary Care Provider Reason for Visit * Reason Comments Chemotherapy C9/D1 - Alimta, Carb o Medication Administration B12 * Episode Based Medications (Routine) - Authorized Specialty Diagnoses / Procedures Referred By Edmund nelson Referred To Contact Diagnoses Encounter for antineoplastic chemotherapy 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) Malignant neoplasm of left lung, unspecified part of lung (HCC) Procedures TX INJ. PEMETREXED NOS 10MG TX CARBOPLATIN INJECTION TX FOSAPREPITANT INJECTION Lasha Christine MD [address] [facility] [place] [address] Anc Hem/Onc [address] [address] Referral ID Status Reason Start Date Expiration Date V isits Requested Visits Authorized [id number] Authorized 08/22/2023 04/28/2099 999 [id number] Encounter Details Date Type Department Care Team (Latest Contact Info) Description 02/06/2024 10:00 AM EDT Hem/Onc Treatment Hematology/Oncolog y Treatment, [address] [address] Diane, Chair 9 Hem Onc [address] [place] [address] Encounter for antineoplastic chemotherapy*; 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); Malignant neoplasm of left lung, unspecified part of lung (HCC) Allergies Active Allergy Reactions Criticality Noted [...] 08/26/2021 CKD (chronic kidney disease), stage II Overview: EGFR 72 Lumbar radiculopathy 05/27/2019 Atherosclerosis of [place] co ronary artery of [place] heart with angina pectoris 05/05/2019 History of colon polyps 08/12/2018 ACEI/ARB contraindicated 09/21/2016 Carotid aneurysm, left 09/13/2015 Overview: S/p coil embolization Cerebral aneurysm, nonruptured 09/05/2015 AAA (abdominal aortic aneurysm) 06/20/2015 Overview: S/p repair Bilateral carotid artery disease 06/20/2015 Medical home patient encounter 05/19/2014 Hypertriglyceridemia 05/16/2012 CORON ATHEROSCL [place] CORON VESSEL 07/11/2010 Dyslipidemia, goal LDL below [...] Sign Reading Time Taken Comments Blood Pressure 127/73 02/06/2024 10:20 AM EDT Pulse 76 02/06/2024 10:20 AM EDT Temperature 35.5 C (95.9 F) 02/06/2024 10:20 AM E DT Respiratory Rate 18 02/06/2024 10:20 AM EDT Oxygen Saturation 97% 02/06/2024 10:20 AM EDT Inhaled Oxygen Concentration - - Weight 79.5 kg (175 lb 3.2 oz) 02/06/2024 10:20 AM EDT Height - - Body Mass Index 26.64 01/16/2024 8:00 AM EDT documented in this encounter Functional Status Functional [...] No 09/12/2015 documented as of this encounter Nursing Notes * Niecy Levin RN - 02/06/2024 2:57 PM EDT Goals: Patient will remain free from injury. Possible barriers to meeting goals: ambulating with IV pole, dizziness when standing Stability of the patient: Moderately stable - low risk of patient condition declining or worsening Summary regarding today's goals: Met: pt remained free of harm today Patient tolerated treatment well without any acute issues or problems. Patient left facility in stable condition and denied any further needs. * Niecy Levin RN - 02/06/2024 2:16 PM EDT Chair 9. Port accessed with difficulty. Patient here today for C9 of Alimta and Carbo -- Carbo was added back into his plan 3 weeks ago, received 2 cycles with Alimta only, then was added back. Patient reports he feels much more fatigued lately with also symptoms of increased SOB. He states his neuropathy has worsened and now has it present in his finger tips. It remains in his feet and up to just above his bilateral ankles. He does report his legs have been feeling weak but it is very sporadic when they feel weak. He says "some days they are fine and other days they do not want to work." He also reports the SOB and fatigue seems to be very sporadic when it comes and when it does not.He says every day is different and it is hard for him to keep track of when he will feels these symptoms and when he does not. Albumin noted to be 2.9 today. Patient denied noticing any edema or fluid build up anywhere. He says he does feel like he has been putting on weight and feels his stomach is "full." He said he thinkshe may be eating more as of lately and does reports still having a good appetite. He has gained about 10 lbs since 01/19 appt with Enriqueta. He reports a R sided pain that has occurred the past few nigh t when he is sleeping on his R side. He took an Oxycodone for the pain which resolved the pain. Dr. Christine made aware of the above documented as well as the steadily increasing AST of 142 and increasing Alk phos of 357. Dr. Christine came to see and assess patient at chair side, assessed abdomen andany other possible areas of swelling. Dr. Christine assessed scan that patient just had done yesterday -- ascites was present which would explain the feelings of "fullness, distention, weight gain" and possibly the SOB and R sided pain as well. Per Dr. Christine, will omit the liter of NSS that is currently in patient's plan -- no longer to give to pt d/t ascites and low albumin/abd fluid. Patient made aware and communicated understanding. RN educated patient to watch and monitor salt intake with foods/drinks since this will add to increased fluid retention. Patient states he already watches his salt intake but will monitor it more closely. RN educated patient to try increasing protein intake as well for low albumin. Pt feels he does not eat enough protein right now but will also work on this. RN educated patient to monitor his weight daily around the same time, preferably in the mornings with no variables changed, to ensure we get accurate weights to track any build up of fluid. RN encouraged patient to write the weights down in order to track them and to let us know if he does start tohave a lot of weight gain, additional abdominal distention/fluid build up, or any peripheral edema. Patient communicated understanding. Chemotherapy/Immunotherapy agents: ALIMTA and CARBOPLATIN Consent for chemotherapy drug treatment complete, dated, and signed? yes, date - 08/22/2023 Treatment lab parameters met? Yes Has treatment weight changed > than 10%? Yes - 10.9%, ascites and some abd swelling, light at this time Treatment preauthorized? Yes VITALS Filed Vitals: 02/06/24 1020 BP: 127/73 Pulse: 76 Resp: 18 Temp: 35.5 C (95.9 F) TempSrc: Tympanic SpO2: 97% Weight: 79.5 kg (175 lb 3.2 oz) Urine protein: N/A Patient education completed for treatment? Yes Blood transfusion consent signed and complete? NA Return appointment scheduled? Yes Patient had provider visit today? No - If no provider visit must complete Pretreatment Assessment Functional Status: Functional status at today's visit: [...] are available. Provide and maintain safe environment. * Lauryn Watson LPN - 02/06/2024 11:56 AM EDT Vitamin B121 ,000mcg adminsitered IM into the left deltoid muscle per standing order. Patient tolerated injection documented in this encounter Plan of Treatment Upcoming Encounters Date Type Department Care Team (Late st Contact Info) Description 02/27/2024 7:40 AM EDT Laboratory Laboratory [facility] [address] [place] [address] [place], Lab [facility] [address] [facility] [place] [address] 02/27/2024 8:15 AM EDT Office Visit Hematology/Oncology [facility] [address] [facility] [place] [address] Lasha Christine MD [address] [facility] [place] [address] 02/27/2024 8:45 AM EDT Hem/Onc Treatment Hematology/Oncology Treatment, [place] [address] [place] [id number] Diane, Chair 2 Hem Onc [address] [place] [address] 04/11/2024 1:20 PM EST Office Visit [facility] [address] [facility] [place] [address] Mauro Watson DO [address] [place] [address] 04/13/2024 8:30 AM EST Appointment Vascular Lab [address] [address] 04/13/2024 9:40 AM EST Office Visit Vascular Surg [place] [address] [place] [address] Margarito Cabrera MD [facility] [place] [address] 08/13/2024 11:40 AM EDT Office Visit Family [facility] [address] [place] [address] Mauro Watson DO [address] [place] [address] Scheduled Procedures Name Priority Associated Diagnoses Date/Ti [...] exists Colorectal Cancer Screening 11/03/2023 COVID-19 Vaccine (2023- season) 2023 02/06/2022, 05/11/2021, 12/13/2020, Additional history [...] this encounter Medical Devices Implanted Type Area Auto Service Representative Device Identifier Shelf Expiration Date Model / Serial / Lot Stent Main Body [id number]-[id number]-[id number] - [id number] Implanted:Qty: 1 on 06/10/2014 by Ronal Gallegos MD at OR [facility] Aorta [employer] 04/07/2016 [id number]-24-8 [id number] / / Graft Iliac Leg Spirlz [id number] - [id number] Implanted:Qty: 1 on 06/10/2014 by Ronal Gallegos MD at OR [facility] Right: Aorta [employer] 10/09/2015 [id number] / / [id number] Description: Graft Iliac Leg Spirlz 55b40ch - [id number] Implanted:Qty: 1 on 06/10/2014 by Ronal Gallegos MD at OR [facility] Right: Femoral Artery [employer] 11/07/2016 [id number] / / [id number] Stent Polmer 29mm P3110 - [id number] Implanted:Qty: 1 on 06/10/2014 by Ronal Gallegos MD at OR [facility] N/A: Aorta JNJ : [employer] 07/26/2018 [id number] / / [id number] Codman Orbit Galaxy Coil 2.5mm X 3.5cm Implanted:Qty: 1 on 09/12/2015 by Arik Shin MD at OR [facility] Left: Head [employer]ENORA [employer] LENORA CODMAN 02/26/2017 [id number] / [id number] / [id number] Description:COMPLEX XTRASOFT detachable coil deployed left internal carotid artery Codman Orbit Galaxy Coil 2.5mm X 2.5cm Implanted:Qty: 1 on 09/12/2015 by Arik Shin MD at OR [facility] Left: Head [employer]EN[employer]A CODMAN 01/27/2016 [id number] / [id number] / [id number] Description:COMPLEX XTRASOFT detachable coil deployed left internal carotid artery aneurysm Codman [place] 2 Stent 4mm X 30mm Implanted:Qty: 1 on 09/12/2015 by Arik Shin MD at OR [facility] Left: Head LENORA [employer] LENORA DEPUY 03/26/2018 [id number] / [id number] / [id number] Description:Vascular reconst ruction device deployed in left internal carotid artery Codman Orbit Galaxy Coil 6mm X 20cm Implanted:Qty: 1 on 09/12/2015 by Arik Shin MD at OR [facility] Left: Head [employer]A CODMAN 09/26/2016 [id number] / [id number] / [id number] Description:COMPLEX FILL det achable coil deployed left internal carotid artery aneurysm Codman Orbit Galaxy Coil 4mm X 10cm Implanted:Qty: 1 on 09/12/2015 by Arik Sihn MD at OR [facility] Left: Head [employer]A [employer]A CODMAN 10/27/2015 [id number] / [id number] / [id number] Description:COMPLEX XTRASOFT detachable coil deployed left internal carotid artery aneurysm Codman Orbit Galaxy Coil 3.5mm X 9cm Implanted:Qty: 1 on 09/12/2015 by Arik Shin MD at OR [facility] Left: Head [employer]A [employer]EN[employer]A CODMAN 12/28/2015 [id number] / [id number] / [id number] Description:COMPLEX XTRASOFT detachable coil deployed left internal carotid artery aneurysm Codman Orbit Galaxy Coil 3mm X 6cm Implanted:Qty: 1 on 09/12/2015 by Arik Shin MD at OR [facility] Left: Head [employer]A [employer]A CODMAN 04/28/2017 [id number] / [id number] / [id number] Description:COMPLEX XTRASOFT detachable coil deployed left internal carotid artery aneurysm Lens Intraoc 21.0 - [id number] - [id number] Implanted:Qty: 1 on 11/08/2020 by Yuri Bradley MD at OR [facility] Left: Eye [employer]CH [employer] LOMB 06/26/2025 [id number] / [id number] / [id number] Lens Intraoc 20.5 - [id number] - [id number] Implanted:Qty: 1 on 11/22/2020 by Yuri Bradley MD at OR [facility] Right: Eye BAUSCH & LOMB 07/27/2025 [id number] / [id number] / [id number] Clip Quick 2.8mm 230cm - [id number] Implanted:Qty: 3 on 03/29/2021 by Luciana Fernandez MD at ENDOSCOPY [facility] [employer] 08/27/2023 [id number]. [id number] / / Sureclip 16mm 235cm - [id number] Implanted:Qty: 2 on 05/07/2022 by Luciana Fernandez MD at ENDOSCOPY [facility] Colon MICRO TECH ENDOSCOPY 07/06/2024 [id number] / / Power Port 8fr Sngl Lumen Plas - [id number] Implanted:Qty: 1 on 01/30/2023 by Koko Santiago MD at OR [facility] N/A: Chest CR BARD : PERIPHERAL VASCULAR 07/27/2024 [id number] / / [id number] Power Port 8fr Sngl Lumen Plas - [id number] Implanted:Qty: 1 on 01/30/2023 by Koko Santiago MD at [facility] CR BARD : PERIPHERAL VASCULAR [id number] 07/27/2024 [id number] / / [id number] documented as of this encounter Visit Diagnoses Diagnosis Encounter for antineoplastic chemotherapy- Primary 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) Malignant neoplasm of left lung, unspecified part of lung (HCC) documented in this encounter Administered Medications Active Administered Medications - up to 3 most recent administrations Medication Order MAR Action Action Date Dose Rate Site diphenhydrAMINE (Benadryl) inj 50 mg 50 mg, IV Push, ONCE PRN Other, Hypersensitivity Reaction, Starting on Lizz 02/06/24 at 1042, Until Sat02/07/24 at 1041, For 24 hours EPINEPHrine 1 MG/ML inj 0.3 mg 0.3 mg, Intramuscular, ONCE PRN Other, Hypersensitivity Reaction or Anaphylaxis, Starting on Lizz 02/06/24 at 1042, Until Sat02/07/24 at 1041, For 24 hours hEParin 100 UNIT/ML Lock Flush inj 500 Units 500 Units (5 mL), IV Lock, PRN Other, IV Flush, Starting on Lizz 02/06/24 at 1042, Until Sat02/07/24 at 1041, For 24 hours, Do not flush if lock, PICC, or central line not in place; IV infusing or unable to flush. Given 02/06/2024 1:08 PM EDT 500 Units Hydrocortisone Sod Suc (PF) (Solu-Cortef) inj 100 mg 100 mg, IV Push, ONCE PRN Other, Hypersensitivity Reaction, Starting on Lizz 02/06/24 at 1042, Until Sat02/07/24 at 1041, For 24 hours LORAzepam (Ativan) tab 0.5 mg 0.5 mg, Oral, ONCE PRN Anxiety, Nausea, Starting on Lizz 02/06/24 at 1145, Until Discontinued NSS infusion Intravenous, at 50 mL/hr, PRN, Starting on Lizz 02/06/24 at 1145, Until Discontinued, Maintenance line Start Infusion 02/06/2024 10:54 AM EDT 50 mL/hr oxygen GAS Inhalation, OXYGEN, First dose on Lizz 02/06/24 at 1115, Until Discontinued, Device/Managed by: Low Flow Device, Goal SPO2 (%): 91-95, Starting Device: Nasal Cannula, Initial Flow Rate (LPM): 2, Lowest Support: Nasal Cannula: Flow 0-6 LPM. Titrate up/down by 1 LPM., Higher Support: Non-Rebreather (NRB) Mask: Minimum of 10 LPM. Titrate to maintain bag inflation., Titration Interval: Q2 minutes and as needed., Notify Provider: For sudden DECREASE in resting SPO2 to less than 85% and when escalating delivery device., Wean patient off Oxygen when the oxygen saturation is greater than or equal to 93% sodium chloride 0.9 % flush central line 10 mL 10 mL, IV Push, PRN Other, IV Flush, Starting on Lizz 02/06/24 at 1042, Until Sat02/07/24 at 1041, For 24 hours, Do not flush if lock, PICC, or central line not in place; IV infusing or unable to flush. Given 02/06/2024 1:07 PM EDT 10 mL Inactive Administered Medications - up to 3 most recent administrations Medication Order MAR Action Action Date Dose Rate Site CARBOplatin (Paraplatin) 363 mg in D5W 250 mL infusion 363 mg (rounded from 362.8 mg, Target AUC = 4), IV Piggyback, at 510 mL/hr Administer over 30 Minutes, PROTECT FROM LIGHT, ONCE, 1 dose, On Lizz 02/06/24 at 1115 Start Infusion 02/06/2024 12:36 PM EDT 363 mg 510 mL/hr Fosaprepitant Dimeglumine (Emend) 150 mg, ondansetron (Zofran) 16 mg, dexamethasone sodium phosphate 12 mg in NSS 250 mL Infusion 150 mg, IV Piggyback, ONCE, 1 dose, On Lizz 02/06/24 at 1115, Administer over 30 Minutes, Infuse over 30 minutes Start Infusion 02/06/2024 10:56 AM EDT 150 mg 538.4 mL/hr PEMEtrexed Disodium (Alimta) 700 mg in NSS 100 mL infusion 700 mg (rounded from 740 mg = 400 mg/m2 1.85 m2 Treatment Plan BSA from Recorded weight), IV Piggyback, ONCE, 1 dose, On Lizz 02/06/24 at 1215, Administer over 10 Minutes Start Infusion 02/06/2024 11:53 AM EDT 700 mg 630 mL/hr Vitamin B-12 (Cyanocobalamin) inj 1,000 mcg 1,000 mcg, Intramuscular, ONCE, On Lizz 02/06/24 at 1315, For 1 dose Given 02/06/2024 11:55 AM EDT 1,000 mcg Deltoid Left Upper documented in this encounter Advance Directives * Full Code (Latest Code Status on File) Date Activated Date Inactivated Comments 09/12/2015 11:01 AM 09/13/2015 2:50 PM This order reflects the patients wishes and were consensually agreed upon. * Full Code Date Activated Date Inactivated Comments 06/10/2014 10:48 AM 06/11/2014 8:37 PM This order reflects the patients wishes and were consensually agreed upon. Care Teams Maintenance Mgr Relationship Specialty Start Date End Date Mauro Watson DO [address] [place] [address] PCP - General Family Medicine 04/13/19 documented as of this encounter
--- OUTSIDE RECORDS SUMMARY | 2024-02-19 09:21 | External Medical Summary | Summary of Care ---
Author Name Unknown Organization [facility] Address [address] [place] [address] Phone [phone] Care Team Providers Care Swedish Masseuse Name Role Phone Mauro Watson DO Primary [...] lung, unspecified part of lung (HCC) Procedures NM INJ. PEMETREXED NOS 10MG NM CARBOPLATIN INJECTION NM FOSAPREPITANT INJECTION Lasha Christine MD [address] [facility] [place] [address] Anc Hem/Onc [address] [address] Referral ID Status Reason Start Date Expiration Date V isits Requested Visits Authorized [id number] Authorized 08/22/2023 04/28/2099 999 [id number] Encounter Details Date Type Department Care Team (Latest Contact Info) Description 02/06/2024 10:00 AM EDT Hem/Onc Treatment Hematology/Oncolog y Treatment, [address] [address] Diane, Chair 9 Hem Onc [address] [place] [address] Encounter for antineoplastic chemotherapy*; Metastatic carcinoma involving [...] EGFR 72 Lumbar radiculopathy 05/27/2019 Atherosclerosis of [place] co ronary artery of [place] heart with angina pectoris 05/05/2019 History of colon polyps 08/12/2018 ACEI/ARB contraindicated 09/21/2016 Carotid aneurysm, left 09/13/2015 Overview: S/p coil embolization Cerebral aneurysm, nonruptured 09/05/2015 AAA (abdominal aortic aneurysm) 06/20/2015 Overview: S/p repair Bilateral carotid artery disease 06/20/2015 Medical home patient encounter 05/19/2014 Hypertriglyceridemia 05/16/2012 CORON ATHEROSCL [place] CORON VESSEL 07/11/2010 Dyslipidemia, goal LDL below [...] 7:40 AM EDT Laboratory Laboratory [facility] [address] [place] [address] [place] Lab [facility] [address] [facility] [place] [address] 02/27/2024 8:15 AM EDT Office Visit Hematology/Oncology [facility] [address] [facility] [place] [address] Lasha Christine MD 200 [place] [address] 02/27/2024 8:45 AM EDT Hem/Onc Treatment Hematology/Oncology Treatment, [place] [address] [place] [phone] Diane, Chair 2 Hem Onc [address] [place] [address] 04/11/2024 1:20 PM EST Office Visit [facility] [address] [facility] [place] [address] Mauro Watson DO [address] [place] [address] 04/13/2024 8:30 AM EST Appointment Vascular Lab [address] [address] 04/13/2024 9:40 AM EST Office Visit Vascular S[place] [address] [place] [address] Margarito Cabrera MD [facility] [place] [address] 08/13/2024 11:40 AM EDT Office Visit Family [facility] [address] [place] [address] Mauro Watson DO [address] [place] [address] Scheduled Procedures Name Priority Associated Diagnoses Date/Ti [...] this encounter Medical Devices Implanted Type Area Risk Compliance Analyst Device Identifier Shelf Expiration Date Model / Serial / Lot Stent Main Body Yawp-10-00-Zt - [id number] Implanted:Qty: 1 on 06/10/2014 by Ronal Gallegos MD at [place] [facility] [place] Aorta [employer] 04/07/2016 TFFB-24-8 2-ZT / / Graft Iliac Leg Spirlz 18n17id - [id number] Implanted:Qty: 1 on 06/10/2014 by Ronal Gallegos MD at OR [facility] [place] Right: Aorta [employer] 10/09/2015 [id number] / / [id number] Description: Graft Iliac Leg Spirlz 75b36ph - [id number] Implanted:Qty: 1 on 06/10/2014 by Ronal Gallegos MD at OR [facility] [place] Right: Femoral Artery [employer] 11/07/2016 [id number] / / [id number] Stent Polmer 29mm P3110 - [id number] Implanted:Qty: 1 on 06/10/2014 by Ronal Gallegos MD at OR [facility] [place] N/A: Aorta JNJ : [employer] 07/26/2018 [id number] / / [id number] Codman Orbit Galaxy Coil 2.5mm X 3.5cm Implanted:Qty: 1 on 09/12/2015 by Arik Shin MD at OR [facility] [place] Left: Head [employer]MAN 02/26/2017 [id number] / [id number] / [id number] Description:COMPLEX XTRASOFT detachable coil deployed left internal carotid artery Codman Orbit Galaxy Coil 2.5mm X 2.5cm Implanted:Qty: 1 on 09/12/2015 by Arik Shin MD at OR [facility] [place] Left: Head [employer] 01/27/2016 [id number] / [id number] / [id number] Description:COMPLEX XTRASOFT detachable coil deployed left internal carotid artery aneurysm Codman [place] 2 Stent 4mm X 30mm Implanted:Qty: 1 on 09/12/2015 by Arik Shin MD at OR [facility] [place] Left: Head [employer]EN[employer]A DEPUY 03/26/2018 [id number] / [id number] / [id number] Description:Vascular reconst ruction device deployed in left internal carotid artery Codman Orbit Galaxy Coil 6mm X 20cm Implanted:Qty: 1 on 09/12/2015 by Arik Shin MD at OR [facility] [place] Left: Head [employer] 09/26/2016 [id number] / [id number] / [id number] Description:COMPLEX FILL det achable coil deployed left internal carotid artery aneurysm Codman Orbit Galaxy Coil 4mm X 10cm Implanted:Qty: 1 on 09/12/2015 by Arik Shin MD at OR [facility] [place] Left: Head [employer]MAN 10/27/2015 [id number] / [id number] / [id number] Description:COMPLEX XTRASOFT detachable coil deployed left internal carotid artery aneurysm Codman Orbit Galaxy Coil 3.5mm X 9cm Implanted:Qty: 1 on 09/12/2015 by Arik Shin MD at OR [facility] [place] Left: Head [employer]MAN 12/28/2015 [id number] / [id number] / [id number] Description:COMPLEX XTRASOFT detachable coil deployed left internal carotid artery aneurysm Codman Orbit Galaxy Coil 3mm X 6cm Implanted:Qty: 1 on 09/12/2015 by Arik Shin MD at OR [facility] [place] Left: Head [employer]ODMAN 04/28/2017 [id number] / [id number] / [id number] Description:COMPLEX XTRASOFT detachable coil deployed left internal carotid artery aneurysm Lens Intraoc 21.0 - [id number] - [id number] Implanted:Qty: 1 on 11/08/2020 by Yuri Bradley MD at OR [facility] Left: Eye [employer]USCH [employer] LOMB 06/26/2025 [id number] / [id number] / [id number] Lens Intraoc 20.5 - [id number] - [id number] Implanted:Qty: 1 on 11/22/2020 by Yuri Bradley MD at OR [facility] Right: Eye [employer]USCH [employer] LOMB 07/27/2025 [id number] / [id number] / [id number] Clip Quick 2.8mm 230cm - [id number] Implanted:Qty: 3 on 03/29/2021 by Luciana Fernandez MD at ENDOSCOPY [facility] [employer] 08/27/2023 [id number]-[id number]. [id number] / / Sureclip 16mm 235cm - [id number] Implanted:Qty: 2 on 05/07/2022 by Luciana Fernandez MD at ENDOSCOPY [facility] Colon MICRO TECH ENDOSCOPY 07/06/2024 [id number] / / Power Port 8fr Sngl Lumen Plas - [id number] Implanted:Qty: 1 on 01/30/2023 by Koko Santiago MD at OR [facility] N/A: Chest CR BARD : PERIPHERAL VASCULAR 07/27/2024 [id number] / / [id number] Power Port 8fr Sngl Lumen Plas - [id number] Implanted:Qty: 1 on 01/30/2023 by Koko Santiago MD at [facility] CR BARD : PERIPHERAL VASCULAR [id number] 07/27/2024 [id number] / / [id number] documented as of this encounter Visit Diagnoses [...] and were consensually agreed upon. Care Teams Swedish Masseuse Relationship Specialty Start Date End Date Mauro Watson DO [address] [place] [address] PCP - General Family Medicine 04/13/19 documented as of this encounter
--- OUTSIDE RECORDS SUMMARY | 2024-02-19 09:21 | External Medical Summary | Summary of Care ---
Author Name Unknown Organization [facility] Address [address] [place] [address] Phone [phone] Care Team Providers Care Civil Preparedness Officer Name Role Phone Mauro Watson DO Primary Care Provider Reason for Visit * Reason Comments Follow Up Encounter Details Date Type Department Care Team (Late st Contact Info) Description 01/20/2024 1:30 PM EDT Office Visit Hematology/Oncology [facility] [address] [place] [address] Enriqueta Souza CRNP [address] [place] [address] Malignant neoplasm of left lung, unspecified part of lung (HCC)*; 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) Allergies Active Allergy Reactions Criticality Noted Date Comments Aspirin Bleeding High 11/26/2011 Significant hemorroidal bleed on aspirin,high doses Duloxetine Hcl Hypertension 01/26/2020 documented as of this encounter (statuses as of 02/01/2024) Medications Medication Sig Dispensed Refills Start Date [...] the morning. 30 Capsule 5 01/20/2024 Active Omeprazole 20 MG Oral Capsule Delayed Release (PriLOSEC)Indicati ons: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) Take 1 Capsule by mouth in the morning. 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 01/21/2023 Encounter for antineoplastic chemotherapy 2022 Medical marijuana use 08/26/2021 CKD (chronic kidney disease), stage II 2 Overview: EGFR 72 Lumbar radiculopathy 05/27/2019 Atherosclerosis of [place] co ronary artery of [place] heart with angina pectoris 05/05/2019 History of colon polyps 08/12/2018 ACEI/ARB contraindicated 09/21/2016 Carotid aneurysm, left 09/13/2015 Overview: S/p coil embolization Cerebral aneurysm, nonruptured 09/05/2015 AAA (abdominal aortic aneurysm) 06/20/2015 Overview: S/p repair Bilateral carotid artery disease 06/20/2015 Medical home patient encounter 05/19/2014 Hypertriglyceridemia 05/16/2012 CORON ATHEROSCL [place] CORON VESSEL 07/11/2010 Dyslipidemia, goal LDL below [...] as of this encounter (statuses as of 02/01/2024) Resolved Problems Problem Noted Date Diagnosed Date [...] as of this encounter (statuses as of 02/01/2024) Immunizations Name Administration Dates Next Due COVID-19 [...] Sign Reading Time Taken Comments Blood Pressure 106/72 01/20/2024 1:23 PM EDT Pulse 92 01/20/2024 1:23 PM EDT Temperature 36.8 C (98.2 F) 01/20/2024 1:23 PM ED T Respiratory Rate - - Oxygen Saturation 97% 01/20/2024 1:23 PM EDT Inhaled Oxygen Concentration - - Weight 74.8 kg (165 lb) 01/20/2024 1:23 PM EDT Height - - Body Mass Index 25.09 01/16/2024 8:00 AM EDT documented in this [...] as of this encounter Progress Notes * Enriqueta Souza CRNP - 01/20/2024 1:30 PM EDT Hematology/Oncology Outpatient Clinic note [facility] [place] [address] [place] [address] Name: Mp Vaughn Date: 01/20/2024 CHIEF COMPLAINT: Mp Vaughn is a 73 year old male here today for f/u visit today. Patient of Dr. Lasha Christine. From Patient chart confirmed with patient. HEMATOLOGY/ONCOLOGY DIAGNOSIS: Malignant neoplasm metastatic to liver, unknown primary with high CEA level -left hilar metabolic lymphadenopathy measuring up to 2.5 cm with SUV of 12.6 noted in the PET-CT scan done on 01/15/2023). NGS checkup --> no actionable mutation. CancerTYPE ID done on 06/28/2023 --> lung adenocarcinoma favored with probability of 89%. Cancer type ruled out with 95% confidence would be cholangiocarcinoma/neuroendocrine carcinoma and several others listed. - PD-L1 --> 1%. DATE OF DIAGNOSIS: 12/20/22 TREATMENT HISTORY: Received 2 cycles of FOLFOX chemotherapy - last dose received 02/18/23 Gemcitabine plus Cisplatin and Durvalumab based on the recommendation from Dr. Jose Bejarano from [facility] every 21 days x 8 cycles (03/04/23 - 07/29/2023), Discontinued because of disease progression mainly in the liver. CURRENT TREATMENT: Carboplatin AUC 5 and Pemetrexed every 21 days (08/23/23 - ) Because of low blood count issues, decided discontinue carboplatin and will continue single agent Alimta every 3 weekly. 01/16/2024 --> Decided to restart carboplatin at AUC of 4, cut down the dose of Alimta to 400 mg/m2, continue treatment every 3 weekly. Decadron as a part of pre-chemotherapy Folic acid 1 mg every day Vitamin B12 injection 1000 microgram every 9 weekly. Oxycodone for the symptomatic treatment of the right upper quadrant pain but lately he is not taking it. DIAGNOSTIC WORKUP: CT scan of the abdomen and pelvis done on 10/18/2022 showed 2 nonspecific hypodense lesions in the left and right lobe of the liver. No lymphadenopathy noted in the abdomen. MRI of the liver done on 11/30/2022: -limited exam due to artifact related to the aortoiliac stent graft. -numerous moderately hyperintense hepatic lesions with enhancement. CT pancreas on 12/06/2022: -multiple hypoenhancing liver lesions (2.8 x 2.4 cm in the segment 2, 3.3 x 3.3 cm in segment 8). -stable left adrenal gland lesion measuring 3 cm since 2016, favoring adenoma. -no intra-abdominal lymphadenopathy noted. CT chest on 12/06/2022: -prominent subaortic (1 x 1.6) and left hilar (1.2 x 1.3 cm ) lymph node PET-CT scan on 01/15/2023: -multiple metabolic active left hilar, portacaval lymph node metastasis -innumerable metabolic active liver metastasis. CT scan of the chest, abdomen pelvis on 04/26/2023: -previously seen small FDG avid left hilar and prevascular lymph nodes have resolved. No new enlarged lymph nodes noted in the chest -multiple liver lesions increase in size and number, left lobe of the liver lesion measuring 3.9 x 4.1 cm, (previously 2.7 x 3 cm). Biopsy from the liver lesion (12/20/2022: -high-grade carcinoma with possible neuroendocrine features. -CK7 positive adenocarcinoma (differential diagnosis cholangiocarcinoma, upper GI, lung and pancreaticobiliary origin). NGS checkup: -TMB--> 10.4 which is medium -MSI stable -no actionable mutation noted. Repeat biopsy from the left lobe of the liver (01/02/2023: - Poorly differentiated carcinoma with focal neuroendocrine differentiation. -It is identical to the previous liver biopsy Cancer marker: -CA 19-9 level --> 11.7 -alpha-fetoprotein level --> 8.7 -CEA level--> 3718. He had a few colonoscopic evaluation, upper GI endoscopic, no primary site identified. OTHER IMPORTANT HISTORY: -hypertension -chronic back pain, he takes gabapentin for the symptomatic treatment. -discontinued smoking habit about 15 years back. Interval History: He had a cancer type ID, now It is favoring lung adenocarcinoma and the ruling out with 95% confidence would be cholangiocarcinoma and neuroendocrine cancer and several others. As disease had remained stable decision was made to continue current treatment plan CT C/A/P 08/14/23: IMPRESSION Progressive, large burden of liver metastases. No additional active or new site of metastatic disease in the chest, abdomen, or pelvis. I reviewed with him and his regarding the recent follow-up CT scan of chest, disease progression noted in the liver, he has increasing pain in the right upper quadrant, has some sweats suggest hypermetabolism, significant increase in the CEA level around 30,000 range also suggest significant amount of tumor burden. I reviewed his blood workup done today abnormal LFT noted but bilirubin level is normal. Slight change in the kidney function test noted. Encouraged him to drink plenty of water. We talked about changing the treatment plan with Alimta and carboplatin and not planning to continue immunotherapy, reviewed with them regarding treatment schedule side effect profile and he is in his in agreement for that. He already received Vitamin B12 injection few weeks back. He will take folic acid 1 mg every day. It would like to start Decadron 4 mg twice a day as a part of pre-chemotherapy for total 3 days. Would like to start chemotherapy soon perhaps tomorrow or early next week. We also talked about overall poor prognosis with his condition. We also talked about worsening liver function test that can occur with disease progression in that case he may not be able to receive more chemotherapy treatment. HISTORY OF PRESENT ILLNESS: Mp Vaughn is a 73 year old male with a history as outlined above. Currently here for acute visit today. Patient has been noticing a burning in the epigastric area going on for the last few weeks. It is there almost all of the time. Stopped taking his omeprazole previously but can't rememberwhy. Pain in the left rib area has improved somewhat. Neuropathy is stable. Denies nausea. Is clearing his throat a lot. Denies difficulty swallowing. Past Medical History: Diagnosis Date AAA (abdominal aortic aneurysm) (HCC) 4.1 cm 08/08 Benign neoplasm of colon 09/09/2006 adenomatous polyp--repeat 5 years CKD (chronic kidney disease), stage II 05/11/2021 EGFR 72 Dyslipidemia, goal LDL below 70 Hemorrhoids, external without complications 08/14/1999 HTN, goal below 140/90 Medical marijuana use Motion sickness PONV (postoperative nausea and vomiting) Vertigo 04/01/2009 Past Surgical History: Procedure Laterality Date AAA/AORTIC DISSEC REPAIR,ENDOVASC N/A 06/10/2014 placement of palmaz stent across proximal aortic endograft seal zone by Dr. Gallegos. CAROTID (INTERNAL) ARTERY CATHETHER PLACEMENT Bilateral 08/20/2016 CATHETER PLACEMENT INTERNAL CAROTID ARTERY performed by Arik Shin MD at [facility] CATHETER OCCLUSION/EMBOLIZATION,SILVERWARE CLEANER N/A 09/12/2015 TRANSCATHETER PERMANENT ARTERIAL OCCLUSION CENTRAL NERVOUS SYSTEM performed by Arik Shin MD at [place] [facility] COLONOSCOPY W/ LESION REMOVAL, SNARE 09/09/2006 adenomatous polyp--repeat 5 years COLONOSCOPY, DIAGNOSTIC (RECTUM) 08/15/2012 adenomatous polyp, diverticulosis, repeat 5 yrs/COLONOSCOPY FLEXIBLE PROXIMAL DIAGNOSTIC performed by Luciana Fernandez MD at ENDOSCOPY [facility] COLONOSCOPY, DIAGNOSTIC (RECTUM) 11/23/2015 adenomatous polyps, diverticulosis, andiodysplastic lesions, repeat 5 yrs/[facility] COLONOSCOPY, DIAGNOSTIC (RECTUM) 11/28/2015 colonic ulcer, diverticulosis/inpt [facility] COLONOSCOPY, DIAGNOSTIC (RECTUM) 03/29/2021 adenomatous polyps, diverticulosis, repeat 1 yr / COLONOSCOPY FLEXIBLE PROXIMAL DIAGNOSTIC performed by Luciana Fernandez MD at ENDOSCOPY [facility] COLONOSCOPY, DIAGNOSTIC (RECTUM) 05/07/2022 benign adenomatous polyps, repeat 6 mo / COLONOSCOPY FLEXIBLE PROXIMAL DIAGNOSTIC performed by Luciana Fernandez MD at ENDOSCOPY [facility] COLONOSCOPY, DIAGNOSTIC (RECTUM) 11/02/2022 resolving ischemic colitis, repeat 9 mo / COLONOSCOPY FLEXIBLE PROXIMAL DIAGNOSTIC performed by Luciana Fernandez MD at ENDOSCOPY [facility] EGD, FLEXIBLE, DIAGNOSTIC 11/23/2015 reflux esophagitis, Schatzki ring, sm /[facility] EGD, FLEXIBLE, DIAGNOSTIC 01/02/2023 hiatal hernia/gastritis/biopsies show mild gastritits of stomach/ESOPHAGOGASTRODUODENOSCOPY (EGD), FLEXIBLE, TRANSORAL, DIAGNOSTIC performed by Jory Sauceda DO at ENDOSCOPY [facility] EGD, W/ENDOSCOPIC US 01/02/2023 multiple metastatic lesions liver/ESOPHAGOGASTRODUODENOSCOPY (EGD), FLEXIBLE, TRANSORAL, ENDOSCOPICULTRASOUND performed by Jory Sauceda DO at ENDOSCOPY [facility] HEMORRHOIDECTOMY, INTERNAL, 2 + COLUMNS 06/28/2000 Internal x 3, Dr Gallego INJECT DX/THER SUBSTANCE INTERLAMINAR LUMBAR/SACRAL W IMAGE GUIDE 11/13/2018 INJECTION SPINE LUMBAR OR SACRAL performed by Deep León, DO at OR [facility] INJECT DX/THER SUBSTANCE INTERLAMINAR LUMBAR/SACRAL W IMAGE GUIDE 11/27/2018 INJECTION SPINE LUMBAR OR SACRAL performed by Deep León, DO at OR [facility] INJECT DX/THER SUBSTANCE INTERLAMINAR LUMBAR/SACRAL W IMAGE GUIDE 04/16/2019 INJECTION SPINE LUMBAR OR SACRAL performed by Deep Anais León, DO at OR [facility] INJECT DX/THER SUBSTANCE INTERLAMINAR LUMBAR/SACRAL W IMAGE GUIDE 05/09/2020 INJECTION SPINE LUMBAR OR SACRAL performed by Deep León, DO at OR [facility] INJECT DX/THER SUBSTANCE INTERLAMINAR LUMBAR/SACRAL W IMAGE GUIDE 05/19/2020 INJECTION SPINE LUMBAR OR SACRAL performed by Deep León, DO at OR [facility] INJECT DX/THER SUBSTANCE INTERLAMINAR LUMBAR/SACRAL W IMAGE GUIDE 02/01/2022 INJECTION SPINE LUMBAR OR SACRAL performed by Wilaim Tam, DO at OR [facility] INJECT DX/THER SUBSTANCE INTERLAMINAR LUMBAR/SACRAL W IMAGE GUIDE 04/02/2022 INJECTION SPINE LUMBAR OR SACRAL performed by Wiliam Tam, DO at OR [facility] INJECT DX/THER SUBSTANCE INTERLAMINAR LUMBAR/SACRAL W IMAGE GUIDE 07/26/2022 INJECTION SPINE LUMBAR OR SACRAL performed by Wiliam Tam DO at OR [facility] INJECT DX/THER SUBSTANCE INTERLAMINAR LUMBAR/SACRAL W IMAGE GUIDE 07/31/2023 INJECTION SPINE LUMBAR OR SACRAL performed by Wiliam Tam DO at OR [facility] INSER TUNN ACC DEV;5 YRS/OLDER N/A 01/30/2023 INSERT TUNNELED CENTRAL VENOUS ACCESS WITH SUBQ PORT performed by Koko Santiago MD at OR [facility] INSERT ARTERY CATHETER THRU SKIN Right 06/10/2014 right radial arterial line by Dr. Gallegos. INTRODUCTION OF CATHETER, AORTA Bilateral 06/10/2014 bilateral aortic catheter placement by Dr. Gallegos. IR BIOPSY 12/20/2022 IR ENDOVASCULAR REPAIR AAA N/A 06/10/2014 endovascular repair of abdominal aortic aneurysm with Cook Zenith stent graft by Dr. Gallegos. LUMBAR / SACRAL EPIDURAL, SINGLE LEVEL 07/31/2021 INJECTION TRANSFORAMINAL EPIDURAL LUMBAR OR SACRAL performed by Deep León DO at OR [facility] OPEN FEMORAL ARTERY EXPOSURE FOR ENDOVASCULAR PROSTHESIS, UNILAT Bilateral 06/10/2014 bilateral femoral artery exposure by Dr. Gallegos. OTHER (INFORMATION) ACT [address] CATHETER IN ARTERIES N/A 08/31/2015 CATHETER PLACEMENT, BRACHIOCEPHALIC, THIRD ORDER BRANCH performed by Arik Shin MD at [facility] PLACE CATHETER IN ARTERIES N/A 09/12/2015 CATHETER PLACEMENT, BRACHIOCEPHALIC, THIRD ORDER BRANCH performed by Arik Shin MD at [facility] REMOVE CATARACT, INSERT LENS PROSTH Left 11/08/2020 left EXTRACAPSULAR CATARACT REMOVAL WITH INTRAOCULAR LENS performed by Yuri Bradley MD at OR [facility] REMOVE CATARACT, INSERT LENS PROSTH Right 11/22/2020 right EXTRACAPSULAR CATARACT REMOVAL WITH INTRAOCULAR LENS performed by Yuri Bradley MD at OR [facility] VERTEBRAL ARTERY CATHETER PLACEMENT Bilateral 08/20/2016 CATHETER PLACEMENT VERTEBRAL ARTERY, performed by Arik Shin MD at [facility] Social History Socioeconomic History Marital status: Spouse name: Not on file Number of children: Not on file Years of education: Not on file Highest education level: Not on file Occupational History Not on file Tobacco Use Smoking status: Former Current packs/day: 0.00 Average packs/day: 1.5 packs/day for 35.0 years (52.5 ttl pk-yrs) Types: Cigarettes Start date: 06/10/1979 Quit date: 06/10/2014 Years since quittin.6 Smokeless tobacco: Never Tobacco comments: quit in 2014 Vaping Use Vaping status: Never Used Substance and Sexual Activity Alcohol use: Yes Comment: one a day and then some days none Drug use: Yes Types: Marijuana Comment: daily Sexual activity: Yes Partners: Female Other Topics Concern Not on file Social History Narrative Not on file Social Determinants of Health Financial Resource Strain: Not on file Food Insecurity: No Food Insecurity (05/21/2022) Hunger Vital Sign Worried About Running Out of Food in the Last Year: Never true Ran Out of Food in the Last Year: Never true Transportation Needs: Not on file Social Connections: Unknown (10/15/2023) Social Connections How often do you feel lonely or isolated from those around you? (Adult - for ages 18 years and over): Not on file Housing Stability: Not on file Review of patient's allergies indicates: Allergen Reactions Aspirin Bleeding Significant hemorroidal bleed on aspirin,high doses Cymbalta [Duloxetine Hcl] Hypertension Current Outpatient Medications Medication Sig Dispense Refill Acetaminophen 325 MG Oral Tablet (Tylenol) take 2 tablet by mouth every 4 hours if needed FOR FEVEROR PAIN (Patient not taking: Reported on 11/05/2023) Omeprazole 20 MG Oral Capsule Delayed Release (PriLOSEC) Take 1 Capsule by mouth in the morning. (Patient not taking: Reported on 02/18/2023) 30 Capsule 5 Prochlorperazine Maleate 10 MG Oral Tablet (Compazine) take 1 tablet by mouth every 6 hours if needed for nausea 30 Tablet 2 amLODIPine Besylate 5 MG Oral Tablet (Norvasc) take 1 tablet by mouth once daily 90 Tablet 2 Ondansetron HCl 8 MG Oral Tablet (Zofran) take 1 tablet by mouth every 8 hours if needed for [id number] Tablet 2 Lidocaine-Prilocaine 2.5-2.5 % External Cream (Emla) APPLY TO SKIN OVER MEDIPORT & COVER 1HR PRIOR TO ACCESSING. 30 g 1 Ondansetron HCl 8 MG Oral Tablet Take 1 Tablet by mouth every 8 hours as needed for Nausea. 30 Tablet 3 oxyCODONE HCl 5 MG Oral Tablet (Oxy IR) Take 1 Tablet by mouth every 4 hours as needed for Pain, Moderate. (Patient not taking: Reported on 11/05/2023) 30 Tablet 0 Folic Acid 1 MG Oral Tablet Take 1 Tablet by mouth in the morning. 90 Tablet 3 Gabapentin 600 MG Oral Tablet (Neurontin) Take 1 Tablet by mouth in the morning and 1 Tablet at noon and 1 Tablet before bedtime. 270 Tablet 3 Venlafaxine HCl ER 37.5 MG Oral Tablet Extended Release 24 Hour Take 1 Tablet by mouth in the morning. 30 Tablet 2 Metoprolol Tartrate 25 MG Oral Tablet (Lopressor) Take 0.5 Tablets by mouth in the morning and 0.5 Tablets before bedtime. 90 Tablet 1 dexAMETHasone 4 MG Oral Tablet One tablet twice a day for 3 days only, starting one day before the chemotherapy. 36 Tablet 1 Molnupiravir 200 MG Oral Capsule Take 4 Capsules by mouth in the morning and 4 Capsules before bedtime. 40 Capsule 0 Prochlorperazine Maleate 10 MG Oral Tablet (Compazine) Take 1 Tablet by mouth every 6 hours as needed for Nausea. 60 Tablet 2 No current facility-administered medications for this visit. REVIEW OF SYSTEMS: See HPI - otherwise negative OBJECTIVE: Filed Vitals: 01/20/24 1323 BP: 106/72 Pulse: 92 Temp: 36.8 C (98.2 F) TempSrc: Tympanic SpO2: 97% Weight: 74.8 kg (165 lb) Wt Readings from Last 5 Encounters: 01/20/24 74.8 kg (165 lb) 01/16/24 75.2 kg (165 lb 12.8 oz) 12/05/23 75.4 kg (166 lb 4.8 oz) 11/14/23 75.4 kg (166 lb 4.8 oz) 10/24/23 75.8 kg (167 lb) PHYSICAL EXAM: ECOG: Performance Status 1 = 80-90% Symptoms but nearly ambulatory Lungs/Thorax: Normal respiratory effort Extremities: No edema Neurologic: Normal - Grossly intact LABS: Results for orders placed or performed in visit on 01/16/24 CEA Result Value Ref Range CEA 33,120.0 (H) <=5.2 ng/mL COMPREHENSIVE METABOLIC PANEL Result Value Ref Range BUN 19 6 - 20 mg/dL CREATININE 1.1 0.6 - 1.2 mg/dL EGFR 70 >=60 mL/min SODIUM 141 135 - 146 mmol/L POTASSIUM 4.9 3.5 - 5.1 mmol/L CHLORIDE 107 98 - 107 mmol/L CO2 19 (L) 22 - 32 mmol/L ANION GAP 15 7 - 15 mmol/L GLUCOSE 159 (H) 70 - 120 mg/dL Albumin 3.3 (L) 3.8 - 5.0 g/dL AST 123 (H) 10 - 50 U/L Alkaline Phosphatase 302 (H) 35 - 130 U/L Bilirubin, Total 0.7 <=1.2 mg/dL CALCIUM 10.1 8.4 - 10.2 mg/dL Protein 8.2 6.0 - 8.3 g/dL ALT 50 10 - 50 U/L CBC Result Value Ref Range WBC 14.84 (H) 4.00 - 10.80 K/uL RBC 3.01 4.50 - 5.25 M/uL HGB 10.5 (L) 14.0 - 16.8 g/dL HCT 33.8 (L) 40.0 - 48.4 % MCV 112.3 82.0 - 99.5 fL MCH 34.9 27.0 - 34.0 pg MCHC 31.1 32.0 - 36.0 g/dL RDW 18.0 11.5 - 15.5 % PLT 162 140 - 400 K/uL MPV 11.7 6.6 - 11.1 fL DIFFERENTIAL, TECHNOLOGIST REVIEW Result Value Ref Range WBC 14.84 (H) 4.00 - 10.80 K/uL Neutrophils % 85.0 (H) 40.0 - 75.0 % Lymphocytes % 10.0 (L) 18.0 - 42.0 % Monocytes % 4.0 1.0 - 11.0 % Metamyelocytes % 1.0 (H) <=0.0 % Absolute Neutrophils 12.61 (H) 1.80 - 7.70 K/uL Absolute Lymphocytes 1.48 1.00 - 4.80 K/uL Absolute Monocytes 0.59 0.00 - 1.10 K/uL Absolute Metamyelocytes 0.15 (H) <=0.00 K/uL nRBCs Hypersegmented Neutrophils Present (A) None Seen *Note: Due to a large number of results and/or encounters for the requested time period, some results have not been displayed. A complete set of results can be found in Results Review. IMAGING: Bilateral Rib and Chest X ray 01/20/24 IMPRESSION: No displaced rib fractures identified IMPRESSION/PLAN: Malignant neoplasm metastatic to liver, unknown primary with high CEA level (possible lung adenocarcinoma per cancer type ID) CT C/A/P completed 08/14/23 significant for disease progression in the liver along with significant increase in the CEA level around 30,000 range also suggest significant amount of tumor burden. He also had a cancer type ID, now It is favoring lung adenocarcinoma and the ruling out with 95% confidence would be cholangiocarcinoma and neuroendocrine cancer and several others. Decision was made to change the treatment plan to Alimta and carboplatin and not planning to continue immunotherapy. Gradual reduction of CEA level around 20,000 range noted, improvement of the liver function test noted. In November because of low blood count issues, decided discontinue carboplatin and will continue single agent Alimta every 3 weekly. Now is December slight increase in liver function test noted, CEA level has gone up to around 33,000 range. Decided to resume carboplatin at AUC of 4, would like to cut down the dose of Alimta 400 mg/m2, repeating chemotherapy every 3 weekly. Planning for follow-up CT scan of the chest, abdomen and pelvis in last week of January 2024. Because of complaints of burning pain in epigastric area, recommended patient to resume omeprazole 20 mg daily. New prescription sent. RTC as scheduled ALMITA Doty documented in this encounter Nursing Notes * Amy Cornelius MED ASSIST - 01/20/2024 1:26 PM EDT Patient identifed by name and birthdate Do you have any concerns about pain management for today's visit? Yes. Patient instructed to discuss pain concerns with provider during the visit today Living Will or Advance Directive for Health Care as noted on the problem list. [facility] is a way you can talk to your provider on line through e-mail. Would you like to sign up? I can activate it for you? ALREADY ACTIVE Filed Vitals: 01/20/24 1323 BP: 106/72 Pulse: 92 Temp: 36.8 C (98.2 F) TempSrc: Tympanic SpO2: 97% Weight: 74.8 kg (165 lb) Patient was instructed to not get up on the exam table/exam chair until directed and assisted by their provider; patient is to remain seated in the chair/ wheelchair/ exam table/ exam chair for fall prevention and safety reasons. Patient is aware to have assistance to step down off exam table/exam chair with personnel. Patient voiced full comprehension of instructions. Pt reported having a burning sensation in abdomen seems to have gotten worse since his fall. Pt rates pain a a 5 and has more fatigue than normal throughout the day. Also has a tickle in his throat that is not normal for him documented in this encounter Plan of Treatment Upcoming Encounters Date Type Department Care Team (Late st Contact Info) Description 02/05/2024 10:00 AM EDT Imaging Radiology [address] [place] [address] 02/06/2024 9:00 AM EDT Laboratory Laboratory [facility] [address] [place] [phone] Diane, Lab Scenery [address] [place] [id number] 02/06/2024 10:00 AM EDT Hem/Onc Treatment Hematology/Oncology Treatment, [place] [address] [place] [address] Diane, Chair 9 Hem Onc Scenery [address] [place] [address] 02/13/2024 9:00 AM EDT Imaging Radiology [address] [facility] [place] [address] 02/27/2024 7:40 AM EDT Laboratory Laboratory [facility] [address] [place] [phone] Diane, Lab Scenery [address] [place] [address] [address] 02/27/2024 8:15 AM EDT Office Visit Hematology/Oncology [facility] [address] [place], [place] [phone] Lasha Christine MD [address] [place] [address] 02/27/2024 8:45 AM EDT Hem/Onc Treatment Hematology/Oncology Treatment, [place] [address] [place], [place] [phone] Diane, Chair 2 Hem Onc [facility] [address] [facility] [place] [id number] 04/11/2024 1:20 PM EST Office Visit [facility] [address] [place] [address] Mauro Watson DO [address] [place] [address] 04/13/2024 8:30 AM EST Appointment Vascular Lab [place] [address] [place] [address] 04/13/2024 9:40 AM EST Office Visit Vascular Surg [facility] [address] [place] [address] Margarito Cabrera MD [address] [place] [address] 08/13/2024 11:40 AM EDT Office Visit [facility] [address] [place] [address] Mauro Watson DO [address] [place] [address] Scheduled Procedures Name Priority Associated Diagnoses Date/Ti [...] this encounter Medical Devices Implanted Type Area Buffing Wheel Presser Device Identifier Shelf Expiration Date Model / Serial / Lot Stent Main Body Qvgn-55-81-[id number] - [id number] Implanted:Qty: 1 on 06/10/2014 by Ronal Gallegos MD [place] [facility] [place] Aorta [employer]OOK GROUP 04/07/2016 TFFB-24-8 2-ZT / / Graft Iliac Leg Spirlz 01u02su - [id number] Implanted:Qty: 1 on 06/10/2014 by Ronal Gallegos MD [place] [facility] [place] Right: Aorta [employer] 10/09/2015 [id number] / / [id number] Description: Graft Iliac Leg Spirlz 50j16gh - [id number] Implanted:Qty: 1 on 06/10/2014 by Ronal Gallegos MD [place] [facility] [place] Right: Femoral Artery [employer] 11/07/2016 [id number] / / [id number] Stent Polmer 29mm P3110 - [id number] Implanted:Qty: 1 on 06/10/2014 by Ronal Gallegos MD [place] [facility] N/A: Aorta JNJ : CORDIS ENDOVASCULAR 07/26/2018 P3110 / / [id number] Codman Orbit Galaxy Coil 2.5mm X 3.5cm Implanted:Qty: 1 on 09/12/2015 by Arik Shin MD at [place] [facility] Left: Head LENORA & LENORA CODMAN 02/26/2017 [id number] / [id number] / [id number] Description:COMPLEX XTRASOFT detachable coil deployed left internal carotid artery Codman Orbit Galaxy Coil 2.5mm X 2.5cm Implanted:Qty: 1 on 09/12/2015 by Arik Shin MD at [place] [facility] Left: Head LENORA & LENORA CODMAN 01/27/2016 [id number] / [id number] / [id number] Description:COMPLEX XTRASOFT detachable coil deployed left internal carotid artery aneurysm Codman [place] 2 Stent 4mm X 30mm Implanted:Qty: 1 on 09/12/2015 by Arik Shin MD at [place] [facility] Left: Head LENORA & LENORA DEPUY 03/26/2018 [id number] / [id number] / [id number] Description:Vascular reconst ruction device deployed in left internal carotid artery Codman Orbit Galaxy Coil 6mm X 20cm Implanted:Qty: 1 on 09/12/2015 by Arik Shin MD at [place] [facility] Left: Head LENORA & LENORA CODMAN 09/26/2016 [id number] / [id number] / [id number] Description:COMPLEX FILL det achable coil deployed left internal carotid artery aneurysm Codman Orbit Galaxy Coil 4mm X 10cm Implanted:Qty: 1 on 09/12/2015 by Arik Shin MD at [place] [facility] Left: Head LENORA & LENORA CODMAN 10/27/2015 [id number] 0 / [id number] / [id number] Description:COMPLEX XTRASOFT detachable coil deployed left internal carotid artery aneurysm Codman Orbit Galaxy Coil 3.5mm X 9cm Implanted:Qty: 1 on 09/12/2015 by Arik Shin MD at [place] [facility] [place] Left: Head LENORA & LENORA CODMAN 12/28/2015 [id number] / [id number] / [id number] Description:COMPLEX XTRASOFT detachable coil deployed left internal carotid artery aneurysm Codman Orbit Galaxy Coil 3mm X 6cm Implanted:Qty: 1 on 09/12/2015 by Arik Shin MD at [place] [facility] [place] Left: Head LENORA & LENORA CODMAN 04/28/2017 [id number] / [id number] / [id number] Description:COMPLEX XTRASOFT detachable coil deployed left internal carotid artery aneurysm Lens Intraoc 21.0 - [id number] - [id number] Implanted:Qty: 1 on 11/08/2020 by Yuri Bradley MD at OR [facility] Left: Eye BAUSCH & LOMB 06/26/2025 [id number] / [id number] / [id number] Lens Intraoc 20.5 - [id number] - [id number] Implanted:Qty: 1 on 11/22/2020 by Yuri Bradley MD at OR [facility] Right: Eye BAUSCH & LOMB 07/27/2025 [id number] / [id number] / [id number] Clip Quick 2.8mm 230cm - [id number] Implanted:Qty: 3 on 03/29/2021 by Luciana Fernandez MD at ENDOSCOPY [facility] [employer] 08/27/2023 HX-202UR. A / / Sureclip 16mm 235cm - [id number] Implanted:Qty: 2 on 05/07/2022 by Luciana Fernandez MD at ENDOSCOPY [facility] Colon MICRO TECH ENDOSCOPY 07/06/2024 [id number] / / Power Port 8fr Sngl Lumen Plas - [id number] Implanted:Qty: 1 on 01/30/2023 by Koko Santiago MD at OR [facility] N/A: Chest CR BARD : PERIPHERAL VASCULAR 07/27/2024 [id number] / / [id number] Power Port 8fr Sngl Lumen Plas - [id number] Implanted:Qty: 1 on 01/30/2023 by Koko Santiago MD at OR [facility] CR BARD : PERIPHERAL VASCULAR [id number] 07/27/2024 [id number] / / [id number] documented as of this encounter Visit Diagnoses [...] and were consensually agreed upon. Care Teams Civil Preparedness Officer Relationship Specialty Start Date End Date Mauro Watson DO [address] [facility] [place] [address] PCP - General Family Medicine 04/13/19 documented as of this encounter
--- OUTSIDE RECORDS SUMMARY | 2024-02-19 09:21 | External Medical Summary ---
Author Name Unknown Address Unknown Organization K09:[facility] [address] [place] [address] Laboratory Report Ordering Provider Test Date Status ANN KLEIN 02/06/2024 09:20:56 Final Observation Date Value Abnormality Reference (Units ) Status SYNC LEUKOCYTES IN BLOOD BY AUTOMATED COUNT 02/06/2024 09:20:56 9.73 4.00-10.80 (K/uL) Final Neutrophils/100 leukocytes in Blood by Manual count 02/06/2024 09:20:56 73.0 40.0-75.0 (%) Final Lymphocytes/100 leukocytes in Blood by Manual count 02/06/2024 09:20:56 15.0 Below low normal 18.0-42.0 (%) Final Monocytes/100 leukocytes in Blood by Manual count 02/06/2024 09:20:56 11.0 1.0-11.0 (%) Final Metamyelocytes/100 leukocytes in Blood by Manual count 02/06/2024 09:20:56 1.0 Above high normal <=0.0 (%) Final Neutrophils [#/volume] in Blood by Manual count 02/06/2024 09:20:56 7.10 1.80-7.70 (K/uL) Final Lymphocytes [#/volume] in Blood by Manual count 02/06/2024 09:20:56 1.46 1.00-4.80 (K/uL) Final Monocytes [#/volume] in Blood by Manual count 02/06/2024 09:20:56 1.07 0.00-1.10 (K/uL) Final Metamyelocytes [#/volume] in Blood by Manual count 02/06/2024 09:20:56 0.10 Above high normal <=0.00 (K/uL) Final Nucleated erythrocytes/100 leukocytes [Ratio] in Blood by Automated count 02/06/2024 09:20:56 Final Variant lymphocytes [Presence] in Blood by Light microscopy 02/06/2024 09:20:56 Present Abnormal None Seen Final Performing Location [facility] [address] [place] [address]
--- OUTSIDE RECORDS SUMMARY | 2024-02-19 09:21 | External Medical Summary ---
Author Name Unknown Address Unknown Organization K09:[facility] [place] [address] Laboratory Report Ordering Provider Test Date Status ANN KLEIN 02/06/2024 09:20:56 Final Observation Date Value Abnormality Reference (Units ) Status WBC, Total 02/06/2024 09:20:56 9.73 4.00-10.8 0 (K/uL) Final RBC 02/06/2024 09:20:56 2.98 4.50-5.25 (M/uL) Final Hemoglobin 02/06/2024 09:20:56 10.6 Below low normal 14 .0-16.8 (g/dL) Final HCT 02/06/2024 09:20:56 32.7 Below low normal 40. 0-48.4 (%) Final MCV 02/06/2024 09:20:56 109.7 82.0-99.5 (fL) Final MCH 02/06/2024 09:20:56 35.6 27.0-34.0 (pg) Final MCHC 02/06/2024 09:20:56 32.4 32.0-36.0 (g/dL) Final RDW 02/06/2024 09:20:56 18.9 11.5-15.5 (%) Final Platelets 02/06/2024 09:20:56 129 Below low normal 140 -400 (K/uL) Final MPV 02/06/2024 09:20:56 12.2 6.6-11.1 ( fL) Final Performing Location [facility] [place] [address]
--- OUTSIDE RECORDS SUMMARY | 2024-02-19 09:21 | External Medical Summary ---
Author Name Unknown Address Unknown Organization K01:[facility] [address] [place] [address] Laboratory Report Ordering Provider Test Date Status ANN KLEIN 02/06/2024 09:20:56 Final Observation Date Value Abnormality Reference (Units ) Status CEA 02/06/2024 09:20:56 [address].0 Above high normal <= 5.2 (ng/mL) Final Performing Location [facility] - [address] [place] [address]
--- OUTSIDE RECORDS SUMMARY | 2024-02-19 09:21 | External Medical Summary | Summary of Care ---
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 05/05/2019 History of colon polyps 08/12/2018 ACEI/ARB contraindicated 09/21/2016 Carotid aneurysm, left 09/13/2015 Overview: S/p coil embolization Cerebral aneurysm, nonruptured 09/05/2015 AAA (abdominal aortic aneurysm) 06/20/2015 Overview: S/p repair Bilateral carotid artery disease 06/20/2015 Medical home patient encounter 05/19/2014 Hypertriglyceridemia 05/16/2012 CORON ATHEROSCL [place] CORON VESSEL 07/11/2010 Dyslipidemia, goal LDL below [...] Description 02/27/2024 7:40 AM EDT Laboratory [facility] [address] [place] [phone] [address] [place] [address] 02/27/2024 8:15 AM EDT Office Visit Hematology/Oncology [facility] [address] [facility] [place] [phone] Lasha Christine MD [address] [facility] [place] [address] 02/27/2024 8:45 AM EDT Hem/Onc Treatment Hematology/Oncology Treatment, [place] [address] [facility] [address] [place] [phone] Diane, Chair 2 Hem Onc [facility] [address] [facility] [address] 04/11/2024 1:20 PM EST Office Visit [facility] [address] [place] [address] Mauro Watson DO [address] [place] [address] 04/13/2024 8:30 AM EST Appointment Vascular Lab [place] [address] [place] [address] 04/13/2024 9:40 AM EST Office Visit Vascular Surg [facility] [address] [place] [address] Margarito Cabrera MD [address] [place] [address] 08/13/2024 11:40 AM EDT Office Visit [facility] [address] [place] [address] Mauro Watson DO [address] [place] [address] Scheduled Procedures Name Priority Associated Diagnoses Date/Ti [...] this encounter Medical Devices Implanted Type Area Clerical Manager Device Identifier Shelf Expiration Date Model / Serial / Lot Stent Main Body Fhkj-22-65-Zt - [id number] Implanted:Qty: 1 on 06/10/2014 by Ronal Gallegos MD at OR [facility] [place] Aorta [employer] 04/07/2016 TFFB-24-8 2-ZT / / Graft Iliac Leg Spirlz 51a43sh - [id number] Implanted:Qty: 1 on 06/10/2014 by Ronal Gallegos MD at OR [facility] [place] Right: Aorta [employer] 10/09/2015 [id number] / / [id number] Description: Graft Iliac Leg Spirlz 87t63yc - [id number] Implanted:Qty: 1 on 06/10/2014 by Ronal Gallegos MD at OR [facility] [place] Right: Femoral Artery [employer] 11/07/2016 [id number] / / [id number] Stent Polmer 29mm P3110 - [id number] Implanted:Qty: 1 on 06/10/2014 by Ronal Gallegos MD at OR [facility] [place] N/A: Aorta JNJ : CORDIS ENDOVASCULAR 07/26/2018 P3110 / / [id number] Codman Orbit Galaxy Coil 2.5mm X 3.5cm Implanted:Qty: 1 on 09/12/2015 by Arik Shin MD at OR [facility] [place] Left: Head LENORA & LENORA CODMAN 02/26/2017 [id number] / [id number] / [id number] Description:COMPLEX XTRASOFT detachable coil deployed left internal carotid artery Codman Orbit Galaxy Coil 2.5mm X 2.5cm Implanted:Qty: 1 on 09/12/2015 by Arik Shin MD at OR [facility] [place] Left: Head LENORA & LENORA CODMAN 01/27/2016 [id number] / [id number] / [id number] Description:COMPLEX XTRASOFT detachable coil deployed left internal carotid artery aneurysm Codman [place] 2 Stent 4mm X 30mm Implanted:Qty: 1 on 09/12/2015 by Arik Shin MD at OR [facility] [place] Left: Head LENORA & LENORA DEPUY 03/26/2018 [id number] / [id number] / [id number] Description:Vascular reconst ruction device deployed in left internal carotid artery Codman Orbit Galaxy Coil 6mm X 20cm Implanted:Qty: 1 on 09/12/2015 by Arik Shin MD at OR [facility] [place] Left: Head LENORA & LENORA CODMAN 09/26/2016 [id number] / [id number] / [id number] Description:COMPLEX FILL det achable coil deployed left internal carotid artery aneurysm Codman Orbit Galaxy Coil 4mm X 10cm Implanted:Qty: 1 on 09/12/2015 by Arik Shin MD at OR [facility] [place] Left: Head LENORA & LENORA CODMAN 10/27/2015 [id number] 0 / [id number] / [id number] Description:COMPLEX XTRASOFT detachable coil deployed left internal carotid artery aneurysm Codman Orbit Galaxy Coil 3.5mm X 9cm Implanted:Qty: 1 on 09/12/2015 by Arik Shin MD at OR [facility] [place] Left: Head LENORA & LENORA [facility] 12/28/2015 [id number] / [id number] / [id number] Description:COMPLEX XTRASOFT detachable coil deployed left internal carotid artery aneurysm Codman Orbit Galaxy Coil 3mm X 6cm Implanted:Qty: 1 on 09/12/2015 by Arik Shin MD at OR [facility] [place] Left: Head LENORA & LENORA [facility] 04/28/2017 [id number] / [id number] / [id number] Description:COMPLEX XTRASOFT detachable coil deployed left internal carotid artery aneurysm Lens Intraoc 21.0 - [id number] - [id number] Implanted:Qty: 1 on 11/08/2020 by Yuri Bradley MD at OR [facility] Left: Eye BAUSCH & LOMB 06/26/2025 [id number] / [id number] / [id number] Lens Intraoc 20.5 - [id number] - [id number] Implanted:Qty: 1 on 11/22/2020 by Yuri Bradley MD at OR [facility] Right: Eye BAUSCH & LOMB 07/27/2025 [id number] / [id number] / [id number] Clip Quick 2.8mm 230cm - [id number] Implanted:Qty: 3 on 03/29/2021 by Luciana Fernnadez MD at ENDOSCOPY [facility] [employer] 08/27/2023 HX-202UR. A / / Sureclip 16mm 235cm - [id number] Implanted:Qty: 2 on 05/07/2022 by Luciana Fernandez MD at ENDOSCOPY [facility] Colon MICRO TECH ENDOSCOPY 07/06/2024 [id number] / / Power Port 8fr Sngl Lumen Plas - [id number] Implanted:Qty: 1 on 01/30/2023 by Koko Santiago MD at OR [facility] N/A: Chest CR BARD : PERIPHERAL VASCULAR 07/27/2024 [id number] / / [id number] Power Port 8fr Sngl Lumen Plas - [id number] Implanted:Qty: 1 on 01/30/2023 by Koko Santiago MD at OR [facility] CR BARD : PERIPHERAL VASCULAR [id number] 07/27/2024 [id number] / / [id number] documented as of this encounter Advance Directives [...] and were consensually agreed upon. Care Teams Scallop Cutter Machine Relationship Specialty Start Date End Date Mauro Watson DO [address] [place] [address] PCP - General Family Medicine 04/13/19 documented as of this encounter
--- OUTSIDE RECORDS SUMMARY | 2024-02-19 09:21 | External Medical Summary | Summary of Care ---
Author Name Unknown Organization [facility] Address [address] [place] [address] Phone [phone] Care Team Providers Care Uptwist Spinner Name Role Phone Walter Mauro Leonardogordy Primary Care Provider Encounter Details Date Type Department Care Team (Late st Contact Info) Description 02/06/2024 Orders Only Hematology/Oncology [facility] [address] [facility] [place] [phone] Lasha Christine MD [address] [place] [address] Malignant neoplasm of left lung, unspecified part of lung (HCC)*; 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); Other ascites Allergies Active Allergy Reactions Criticality Noted Date [...] EGFR 72 Lumbar radiculopathy 05/27/2019 Atherosclerosis of [place] co ronary artery of [place] heart with angina pectoris 05/05/2019 History of colon polyps 08/12/2018 ACEI/ARB contraindicated 09/21/2016 Carotid aneurysm, left 09/13/2015 Overview: S/p coil embolization Cerebral aneurysm, nonruptured 09/05/2015 AAA (abdominal aortic aneurysm) 06/20/2015 Overview: S/p repair Bilateral carotid artery disease 06/20/2015 Medical home patient encounter 05/19/2014 Hypertriglyceridemia 05/16/2012 CORON ATHEROSCL [place] CORON VESSEL 07/11/2010 Dyslipidemia, goal LDL below [...] Progress Notes * Lasha Christine MD - 02/06/2024 3:03 PM EDT He has gained about 10 lb, reviewed the CT scan images, final result is not yet ready but it shows perihepatic ascites, I would like to discontinue post chemotherapy hydration. documented in this encounter Plan of Treatment Upcoming Encounters Date Type Department Care Team (Late st Contact Info) Description 02/27/2024 7:40 AM EDT Laboratory Laboratory [facility] [address] [place] [phone] Diane, Lab [facility] [address] [place] [address] 02/27/2024 8:15 AM EDT Office Visit Hematology/Oncology [facility] [address] [place] [phone] Lasha [place] MD [address] [facility] [address] 02/27/2024 8:45 AM EDT Hem/Onc Treatment Hematology/Oncology Treatment, [place] [address] [place], [place] [phone] Diane, Chair 2 Hem Onc [facility] [address] [facility] [place] [address] 04/11/2024 1:20 PM EST [facility] [address] Mauro Watson, [address] [facility] [place] [address] 04/13/2024 8:30 AM EST Appointment Vascular Lab [address] [address] 04/13/2024 9:40 AM EST Office Visit Vascular Surg [place] [address] [place] [address] Margarito Cabrera MD [address] [place] [address] 08/13/2024 11:40 AM EDT Office Visit Family Practice [facility] [address] [place] [address] Mauro Watson DO [address] [place] [address] Scheduled Procedures Name Priority Associated Diagnoses Date/Ti [...] this encounter Medical Devices Implanted Type Area Weasand Trimmer Device Identifier Shelf Expiration Date Model / Serial / Lot Stent Main Body Bmay-62-70-Zt - [id number] Implanted:Qty: 1 on 06/10/2014 by Ronal Gallegos MD at OR [facility] [place] Aorta [employer] 04/07/2016 TFFB-24-8 2-ZT / / Graft Iliac Leg Spirlz 97k42ch - [id number] Implanted:Qty: 1 on 06/10/2014 by Ronal Gallegos MD at OR [facility] [place] Right: Aorta [employer] 10/09/2015 [id number] / / [id number] Description: Graft Iliac Leg Spirlz 14v79so - [id number] Implanted:Qty: 1 on 06/10/2014 by Ronal Gallegos MD at OR [facility] [place] Right: Femoral Artery [employer] 11/07/2016 [id number] / / [id number] Stent Polmer 29mm P3110 - [id number] Implanted:Qty: 1 on 06/10/2014 by Ronal Gallegos MD at OR [facility] [place] N/A: Aorta JNJ : CORDIS ENDOVASCULAR 07/26/2018 P3110 / / [id number] Codman Orbit Galaxy Coil 2.5mm X 3.5cm Implanted:Qty: 1 on 09/12/2015 by Arik Shin MD at OR [facility] [place] Left: Head LENORA & LENORA CODMAN 02/26/2017 [id number] / [id number] / [id number] Description:COMPLEX XTRASOFT detachable coil deployed left internal carotid artery Codman Orbit Galaxy Coil 2.5mm X 2.5cm Implanted:Qty: 1 on 09/12/2015 by Arik Shin MD at OR [facility] [place] Left: Head LENORA & LENORA CODMAN 01/27/2016 [id number] / [id number] / [id number] Description:COMPLEX XTRASOFT detachable coil deployed left internal carotid artery aneurysm Codman [place] 2 Stent 4mm X 30mm Implanted:Qty: 1 on 09/12/2015 by Arik Shin MD at OR [facility] [place] Left: Head LENORA & LENORA DEPUY 03/26/2018 [id number] / [id number] / [id number] Description:Vascular reconst ruction device deployed in left internal carotid artery Codman Orbit Galaxy Coil 6mm X 20cm Implanted:Qty: 1 on 09/12/2015 by Arik Shin MD at OR [facility] [place] Left: Head LENORA & LENORA CODMAN 09/26/2016 [id number] / [id number] / [id number] Description:COMPLEX FILL det achable coil deployed left internal carotid artery aneurysm Codman Orbit Galaxy Coil 4mm X 10cm Implanted:Qty: 1 on 09/12/2015 by Arik Shin MD at OR [facility] [place] Left: Head LENORA & LENORA CODMAN 10/27/2015 [id number] 0 / [id number] / [id number] Description:COMPLEX XTRASOFT detachable coil deployed left internal carotid artery aneurysm Codman Orbit Galaxy Coil 3.5mm X 9cm Implanted:Qty: 1 on 09/12/2015 by Arik Shin MD at OR [facility] [place] Left: Head LENORA & LENORA CODMAN 12/28/2015 [id number] / [id number] / [id number] Description:COMPLEX XTRASOFT detachable coil deployed left internal carotid artery aneurysm Codman Orbit Galaxy Coil 3mm X 6cm Implanted:Qty: 1 on 09/12/2015 by Arik Shin MD at OR [facility] [place] Left: Head LENORA & LENORA CODMAN 04/28/2017 [id number] / [id number] / [id number] Description:COMPLEX XTRASOFT detachable coil deployed left internal carotid artery aneurysm Lens Intraoc 21.0 - [id number] - [id number] Implanted:Qty: 1 on 11/08/2020 by Yuri Bradley MD at OR [facility] Left: Eye BAUSCH & LOMB 06/26/2025 [id number] / [id number] / [id number] Lens Intraoc 20.5 - [id number] - [id number] Implanted:Qty: 1 on 11/22/2020 by Yuri Bradley MD at OR [facility] Right: Eye BAUSCH & LOMB 07/27/2025 [id number] / [id number] / [id number] Clip Quick 2.8mm 230cm - [id number] Implanted:Qty: 3 on 03/29/2021 by Luciana Fernandez MD at ENDOSCOPY [facility] [employer] 08/27/2023 HX-202UR. A / / Sureclip 16mm 235cm - [id number] Implanted:Qty: 2 on 05/07/2022 by Luciana Fernandez MD at ENDOSCOPY [facility] Colon MICRO TECH ENDOSCOPY 07/06/2024 [id number] / / Power Port 8fr Sngl Lumen Plas - [id number] Implanted:Qty: 1 on 01/30/2023 by Koko Santiago MD at OR [facility] N/A: Chest CR BARD : PERIPHERAL VASCULAR 07/27/2024 [id number] / / [id number] Power Port 8fr Sngl Lumen Plas - [id number] Implanted:Qty: 1 on 01/30/2023 by Koko Santiago MD at OR [facility] CR BARD : PERIPHERAL VASCULAR [id number] 07/27/2024 [id number] / / [id number] documented as of this encounter Visit Diagnoses Diagnosis Malignant neoplasm of left lung, unspecified part of lung (HCC)- Primary 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) Other ascites documented in this encounter Advance Directives * Full Code (Latest Code Status on File) Date Activated Date Inactivated Comments 09/12/2015 11:01 AM 09/13/2015 2:50 PM This order reflects the patients wishes and were consensually agreed upon. * Full Code Date Activated Date Inactivated Comments 06/10/2014 10:48 AM 06/11/2014 8:37 PM This order reflects the patients wishes and were consensually agreed upon. Care Teams Uptwist Spinner Relationship Specialty Start Date End Date Mauro Watson DO [address] [place] [address] PCP - General Family Medicine 04/13/19 documented as of this encounter
--- OUTSIDE RECORDS SUMMARY | 2024-02-19 09:22 | External Medical Summary | Summary of Care ---
Author Name Unknown Organization [facility] Address [address] [place] [address] Phone [phone] Care Team Providers Care Claim Investigator Name Role Phone Mauro Watson DO Primary Care Provider Reason for Visit * Reason Onset Date Comments Status Check 01/30/2024 Encounter Details Date Type Department Care Team (Late st Contact Info) Description 01/30/2024 Telephone Family Practice [facility] [address] [place] [address] Mauro Watson DO [address] [place] [address] Status Check Allergies Active Allergy Reactions Criticality Noted Date Comments Aspirin Bleeding High 11/26/2011 Significant hemorroidal bleed on aspirin,high doses Duloxetine Hcl Hypertension 01/26/2020 documented as of this encounter (statuses as of 01/30/2024) Medications Medication Sig Dispensed Refills Start Date [...] as of this encounter (statuses as of 01/30/2024) Active Problems Problem Noted Date Diagnosed Date Malignant neoplasm of left lung 08/23/2023 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 01/21/2023 Encounter for antineoplastic chemotherapy 2022 Medical marijuana use 08/26/2021 CKD (chronic kidney disease), stage II 2 Overview: EGFR 72 Lumbar radiculopathy 05/27/2019 Atherosclerosis of [place] co ronary artery of [place] heart with angina pectoris 05/05/2019 History of colon polyps 08/12/2018 ACEI/ARB contraindicated 09/21/2016 Carotid aneurysm, left 09/13/2015 Overview: S/p coil embolization Cerebral aneurysm, nonruptured 09/05/2015 AAA (abdominal aortic aneurysm) 06/20/2015 Overview: S/p repair Bilateral carotid artery disease 06/20/2015 Medical home patient encounter 05/19/2014 Hypertriglyceridemia 05/16/2012 CORON ATHEROSCL [place] CORON VESSEL 07/11/2010 Dyslipidemia, goal LDL below [...] as of this encounter (statuses as of 01/30/2024) Resolved Problems Problem Noted Date Diagnosed Date [...] as of this encounter (statuses as of 01/30/2024) Immunizations Name Administration Dates Next Due COVID-19 [...] encounter Miscellaneous Notes * Telephone Encounter - Gely Brown, marine tower operator - 01/30/2024 2:47 PM EDT Pt calling to request Gabapentin 600 MG . Informed pt that RX is available at their pharmacy. Pt verbalized understanding and stated they will check with their pharmacy regarding this medication. Thank you, Gely Brown CPhT Creative Manager II [facility] 01/30/2024, 2:47 PM documented in this encounter Plan of Treatment Upcoming Encounters Date Type Department Care Team (Late st Contact Info) Description 02/05/2024 10:00 AM EDT Imaging Radiology [address] [address] 02/06/2024 9:00 AM EDT Laboratory Laboratory [facility] [place] [address] [place] [phone] [place], [facility] [address] [place] [address] 02/06/2024 10:00 AM EDT [facility] [address] [place] [phone] Diane, Chair 9 Hem Onc [facility] [address] [place] [address] 02/13/2024 9:00 AM EDT Imaging Radiology [address] [address] 02/27/2024 7:40 AM EDT Laboratory [facility] [place] [address] [place] [phone] Diane, Lab [address] [facility] [place] [address] 02/27/2024 8:15 AM EDT Office Visit Hematology/Oncology [facility] Diane [place] [address] [place] [phone] Lasha Christine MD [address] [place] [address] 02/27/2024 8:45 AM EDT Hem/Onc Treatment Hematology/Oncology Treatment, [place] [address] [place] [address] Park, Chair 2 Hem Onc [address] [place] [address] 04/11/2024 1:20 PM EST Office Visit [facility] [address] [place] [address] Mauro Watson, DO [address] [place] [address] 04/13/2024 8:30 AM EST Appointment Vascular Lab [address] [address] 04/13/2024 9:40 AM EST Office Visit Vascular Surg [place] [address] [place] [address] Margarito Cabrera MD [facility] [place] [address] 08/13/2024 11:40 AM EDT Office Visit [facility] [address] [place] [address] Mauro Watson, [address] [place] [address] Scheduled Procedures Name Priority Associated Diagnoses Date/Ti [...] this encounter Medical Devices Implanted Type Area Shoe Lacer Device Identifier Shelf Expiration Date Model / Serial / Lot Stent Main Body Laus-45-40-Zt - [id number] Implanted:Qty: 1 on 06/10/2014 by Ronal Gallegos MD at OR [facility] Aorta [employer] 04/07/2016 TFFB-24-8 2-ZT / / Graft Iliac Leg Spirlz 66g12ds - [id number] Implanted:Qty: 1 on 06/10/2014 by Ronal Gallegos MD at OR [facility] Right: Aorta [employer] 10/09/2015 [id number] / / [id number] Description: Graft Iliac Leg Spirlz 20z63bb - [id number] Implanted:Qty: 1 on 06/10/2014 by Ronal Gallegos MD at OR [facility] Right: Femoral Artery [employer] 11/07/2016 [id number] / / [id number] Stent Polmer 29mm P3110 - [id number] Implanted:Qty: 1 on 06/10/2014 by Ronal Gallegos MD at OR [facility] N/A: Aorta JNJ : CORDIS ENDOVASCULAR 07/26/2018 [id number] / / [id number] Codman Orbit Galaxy Coil 2.5mm X 3.5cm Implanted:Qty: 1 on 09/12/2015 by Arik Shin MD at OR [facility] Left: Head [facility] 02/26/2017 [id number] / [id number] / [id number] Description:COMPLEX XTRASOFT detachable coil deployed left internal carotid artery Codman Orbit Galaxy Coil 2.5mm X 2.5cm Implanted:Qty: 1 on 09/12/2015 by Arik Shin MD at OR [facility] Left: Head [facility] 01/27/2016 [id number] / [id number] / [id number] Description:COMPLEX XTRASOFT detachable coil deployed left internal carotid artery aneurysm Codman Lime 2 Stent 4mm X 30mm Implanted:Qty: 1 on 09/12/2015 by Arik Shin MD at OR [facility] Left: Head LENORA [employer] LENORA DEPUY 03/26/2018 [id number] / [id number] / [id number] Description:Vascular reconst ruction device deployed in left internal carotid artery Codman Orbit Galaxy Coil 6mm X 20cm Implanted:Qty: 1 on 09/12/2015 by Arik Shin MD at OR [facility] Left: Head LENORA [employer] LENORA CODMAN 09/26/2016 [id number] / [id number] / [id number] Description:COMPLEX FILL det achable coil deployed left internal carotid artery aneurysm Codman Orbit Galaxy Coil 4mm X 10cm Implanted:Qty: 1 on 09/12/2015 by Arik Shin MD at OR [facility] Left: Head LEN[employer]A [employer] LENORA CODMAN 10/27/2015 [id number] / [id number] / [id number] Description:COMPLEX XTRASOFT detachable coil deployed left internal carotid artery aneurysm Codman Orbit Galaxy Coil 3.5mm X 9cm Implanted:Qty: 1 on 09/12/2015 by Arik Shin MD at OR [facility] Left: Head LENORA [employer] LENORA CODMAN 12/28/2015 [id number] / [id number] / [id number] Description:COMPLEX XTRASOFT detachable coil deployed left internal carotid artery aneurysm Codman Orbit Galaxy Coil 3mm X 6cm Implanted:Qty: 1 on 09/12/2015 by Arik Shin MD at OR [facility] Left: Head LENORA [employer] LENORA CODMAN 04/28/2017 [id number] / [id number] / [id number] Description:COMPLEX XTRASOFT detachable coil deployed left internal carotid artery aneurysm Lens Intraoc 21.0 - [id number] - [id number] Implanted:Qty: 1 on 11/08/2020 by Yuri Bradley MD at OR [facility] Left: Eye BAUSCH [employer] LOMB 06/26/2025 [id number] / [id number] / [id number] Lens Intraoc 20.5 - [id number] - [id number] Implanted:Qty: 1 on 11/22/2020 by Yuri Bradley MD at OR [facility] Right: Eye BAUSCH & LOMB 07/27/2025 [id number] / [id number] / [id number] Clip Quick 2.8mm 230cm - [id number] Implanted:Qty: 3 on 03/29/2021 by Luciana Fernandez MD at ENDOSCOPY [facility] [employer] 08/27/2023 HX-202UR. A / / Sureclip 16mm 235cm - [id number] Implanted:Qty: 2 on 05/07/2022 by Luciana Fernandez MD at ENDOSCOPY [facility] Colon MICRO TECH ENDOSCOPY 07/06/2024 [id number] / / Power Port 8fr Sngl Lumen Plas - [id number] Implanted:Qty: 1 on 01/30/2023 by Koko Santiago MD at OR [facility] N/A: Chest CR BARD : PERIPHERAL VASCULAR 07/27/2024 [id number] / / [id number] Power Port 8fr Sngl Lumen Plas - [id number] Implanted:Qty: 1 on 01/30/2023 by Koko Santiago MD at OR [facility] BARD : PERIPHERAL VASCULAR [id number] 07/27/2024 [id number] / / [id number] documented as of this encounter Advance Directives [...] and were consensually agreed upon. Care Teams Claim Investigator Relationship Specialty Start Date End Date Mauro Watson DO [address] [place] [address] PCP - General Family Medicine 04/13/19 documented as of this encounter
--- OUTSIDE RECORDS SUMMARY | 2024-02-19 09:22 | External Medical Summary | Summary of Care ---
Author Name Unknown Organization [facility] Address [address] [place] [address] Phone [phone] Care Team Providers Care Product/Device Technologist Name Role Phone Walter Mauro Leonardogordy Primary Care Provider Reason for Visit * Reason Onset Date Comments Test Results Imaging Study 01/21/2024 Chest x-ray Encounter Details Date Type Department Care Team (Late st Contact Info) Description 01/21/2024 Telephone Hematology/Oncology [facility] [address] [place] [phone] Lasha Christine MD [address] [facility] [address] Test Results Imaging Study (Chest x-ray) Allergies Active Allergy Reactions Criticality Noted Date Comments Aspirin Bleeding High 11/26/2011 Significant hemorroidal bleed on aspirin,high doses Duloxetine Hcl Hypertension 01/26/2020 documented as of this encounter (statuses as of 01/21/2024) Medications Medication Sig Dispensed Refills Start Date [...] as of this encounter (statuses as of 01/21/2024) Active Problems Problem Noted Date Diagnosed Date Malignant neoplasm of left lung 08/23/2023 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 01/21/2023 Encounter for antineoplastic chemotherapy 2022 Medical marijuana use 08/26/2021 CKD (chronic kidney disease), stage II 2 Overview: EGFR 72 Lumbar radiculopathy 05/27/2019 Atherosclerosis of [place] co ronary artery of [place] heart with angina pectoris 05/05/2019 History of colon polyps 08/12/2018 ACEI/ARB contraindicated 09/21/2016 Carotid aneurysm, left 09/13/2015 Overview: S/p coil embolization Cerebral aneurysm, nonruptured 09/05/2015 AAA (abdominal aortic aneurysm) 06/20/2015 Overview: S/p repair Bilateral carotid artery disease 06/20/2015 Medical home patient encounter 05/19/2014 Hypertriglyceridemia 05/16/2012 CORON ATHEROSCL [place] CORON VESSEL 07/11/2010 Dyslipidemia, goal LDL below [...] as of this encounter (statuses as of 01/21/2024) Resolved Problems Problem Noted Date Diagnosed Date [...] as of this encounter (statuses as of 01/21/2024) Immunizations Name Administration Dates Next Due COVID-19 mRNA, LNP-s, No Pre serve, 2-Dose Series (Moderna) 12/13/2020,07/02/2020,06/04/2020 COVID-19, mRNA, LNP-s, PF, B ooster, 100mcg/0.5mg (Moderna) 05/11/2021 Covid-19, Mrna, Lnp-s, Pf, B ivalent, 50 Mcg, IM, 12 yrs and above (Moderna) 02/06/2022 Pneumococcal Conjugate Vacc, 13 Valent (Prevnar) 02/04/2017 Pneumococcal Polysaccharide PPV23 (Pneumovax) 02/17/2018,12/21/2011 Seasonal Influenza, High Dos e, Trivalent, PF, IM (Fluzone HD) 01/16/2024 Seasonal Influenza, PF, 6 M & above, IM , (FluLaval or Fluzone) 02/10/2018,02/04/2017 Seasonal Influenza, Quadriva lent Hd (Fluzone Hd) 01/02/2023,01/25/2021 Seasonal Influenza, Trivalen t, (IIV3), with Preserv, (Fluzone) 04/19/2014 Seasonal Influenza, Trivalen t, Adjuvanted, 65+ YRS, [...] Telephone Encounter - Veronica Briones LPN - 01/21/2024 7:47 AM EDT My G sent. * Telephone Encounter - Veronica Briones LPN - 01/21/2024 7:43 AM EDT ----- Message from Lasha Christine MD sent at 01/21/2024 6:25 AM EDT ----- X-ray of the ribs in the chest done on 01/17/2024: - No displaced the rib fracture is noted. documented in this encounter Plan of Treatment Upcoming Encounters Date Type Department Care Team (Late st Contact Info) Description 02/06/2024 9:00 AM EDT Laboratory Laboratory [facility] [address] [place] [phone] Diane [place] [address] [address] [facility] [place] [address] 02/06/2024 10:00 AM EDT Hem/Onc Treatment Hematology/Oncology Treatment, [place] [address] [place] [phone] Diane, Chair 9 Hem Onc [place] [address] [place] [address] 02/10/2024 9:00 AM EDT Appointment Vascular Lab [place] [address] [place] [address] 02/10/2024 10:00 AM EDT Office Visit Vascular Surg [facility] [address] [place] [address] Margarito Cabrera MD [address] [place] [address] 02/13/2024 9:00 AM EDT Imaging Radiology [address], [place] 132 [facility] [place] [address] 02/27/2024 7:40 AM EDT Laboratory Laboratory [facility] [address] [place], [place] [phone] Diane Lab [address] [place] [address] 02/27/2024 8:15 AM EDT Office Visit Hematology/Oncology [facility] [place] [address] [place] [phone] Lasha Christine MD [address] [place] [address] 02/27/2024 8:45 AM EDT [facility] [address] [place] [phone] Diane, Chair 2 Hem Onc [address] [place] [address] 04/11/2024 1:20 PM EST Office Visit [facility] [address] [place] [address] Mauro Watson, [address] [place] [address] 08/13/2024 11:40 AM EDT Office Visit [facility] [address] [place] [address] Mauro Watson DO [address] [place] [address] Scheduled Procedures Name Priority Associated Diagnoses Date/Ti me INJECTION SPINE LUMBAR OR SACRAL Lumbar radiculopathy COLONOSCOPY FLEXIBLE PROXIMAL DIAGNOSTIC Recall History of colon polyps Health Maintenance Due Date Last Done Comments Cologuard 1994 Sigmoidoscopy 1994 Fecal Occult Blood Test 02/03/2001 02/04/2000, 02/02 Adult Wellness Visit 01/25/2022 01/25/2021 Depression Screening 05/17/2023 05/17/2022 Colonoscopy 11/03/2023 11/02/2022, 070 10/2022, 05/07/2022, Additional history exists Colorectal Cancer [...] this encounter Medical Devices Implanted Type Area Wealth Management Manager Device Identifier Shelf Expiration Date Model / Serial / Lot Stent Main Body Ngco-97-12-Zt - [id number] Implanted:Qty: 1 on 06/10/2014 by Ronal Gallegos MD at [place] [facility] Aorta [employer] 04/07/2016 TFFB-24-8 2-ZT / / Graft Iliac Leg Spirlz 38l26ll - [id number] Implanted:Qty: 1 on 06/10/2014 by Ronal Gallegos MD at [place] [facility] [place] Right: Aorta [employer] 10/09/2015 [id number] / / [id number] Description: Graft Iliac Leg Spirlz 39w17xk - [id number] Implanted:Qty: 1 on 06/10/2014 by Ronal Gallegos MD at [place] [facility] [place] Right: Femoral Artery [employer] 11/07/2016 [id number] / / [id number] Stent Polmer 29mm P3110 - [id number] Implanted:Qty: 1 on 06/10/2014 by Ronal Gallegos MD at [place] [facility] [place] N/A: Aorta JNJ : CORDIS ENDOVASCULAR 07/26/2018 P3110 / / [id number] Codman Orbit Galaxy Coil 2.5mm X 3.5cm Implanted:Qty: 1 on 09/12/2015 by Arik Shin MD at [place] [facility] [place] Left: Head [facility] 02/26/2017 [id number] / [id number] / [id number] Description:COMPLEX XTRASOFT detachable coil deployed left internal carotid artery Codman Orbit Galaxy Coil 2.5mm X 2.5cm Implanted:Qty: 1 on 09/12/2015 by Arik Shin MD at [place] [facility] [place] Left: Head [facility] 01/27/2016 [id number] / [id number] / [id number] Description:COMPLEX XTRASOFT detachable coil deployed left internal carotid artery aneurysm Codman [place] 2 Stent 4mm X 30mm Implanted:Qty: 1 on 09/12/2015 by Arik Shin MD at [place] [facility] [place] Left: Head LENORA [employer] LENORA DEPUY 03/26/2018 [id number] / [id number] / [id number] Description:Vascular reconst ruction device deployed in left internal carotid artery Codman Orbit Galaxy Coil 6mm X 20cm Implanted:Qty: 1 on 09/12/2015 by Arik Shin MD at [place] [facility] [place] Left: Head LEN[employer]A [employer] LENORA CODMAN 09/26/2016 [id number] / [id number] / [id number] Description:COMPLEX FILL det achable coil deployed left internal carotid artery aneurysm Codman Orbit Galaxy Coil 4mm X 10cm Implanted:Qty: 1 on 09/12/2015 by Arik Shin MD at [place] [facility] [place] Left: Head L[employer]A [employer] LEN[employer]A CODMAN 10/27/2015 [id number] / [id number] / [id number] Description:COMPLEX XTRASOFT detachable coil deployed left internal carotid artery aneurysm Codman Orbit Galaxy Coil 3.5mm X 9cm Implanted:Qty: 1 on 09/12/2015 by Arik Shin MD at [place] [facility] [place] Left: Head L[employer]A [employer] LENORA CODMAN 12/28/2015 [id number] / [id number] / [id number] Description:COMPLEX XTRASOFT detachable coil deployed left internal carotid artery aneurysm Codman Orbit Galaxy Coil 3mm X 6cm Implanted:Qty: 1 on 09/12/2015 by Arik Shin MD at [place] [facility] [place] Left: Head LENORA [employer] LENORA CODMAN 04/28/2017 [id number] / [id number] / [id number] Description:COMPLEX XTRASOFT detachable coil deployed left internal carotid artery aneurysm Lens Intraoc 21.0 - [id number] - [id number] Implanted:Qty: 1 on 11/08/2020 by Yuri Bradley MD at OR [facility] Left: Eye BAUSCH & LOMB 06/26/2025 [id number] / [id number] / [id number] Lens Intraoc 20.5 - [id number] - [id number] Implanted:Qty: 1 on 11/22/2020 by Yuri Bradley MD at OR [facility] Right: Eye BAUSCH & LOMB 07/27/2025 [id number] / [id number] / [id number] Clip Quick 2.8mm 230cm - [id number] Implanted:Qty: 3 on 03/29/2021 by Luciana Fernandez MD at ENDOSCOPY [facility] [employer] 08/27/2023 HX-202UR. A / / Sureclip 16mm 235cm - [id number] Implanted:Qty: 2 on 05/07/2022 by Luciana Fernandez MD at ENDOSCOPY [facility] Colon MICRO TECH ENDOSCOPY 07/06/2024 [id number] / / Power Port 8fr Sngl Lumen Plas - [id number] Implanted:Qty: 1 on 01/30/2023 by Koko Santiago MD at OR [facility] N/A: Chest CR BARD : PERIPHERAL VASCULAR 07/27/2024 [id number] / / [id number] Power Port 8fr Sngl Lumen Plas - [id number] Implanted:Qty: 1 on 01/30/2023 by Koko Santiago MD at OR [facility] CR BARD : PERIPHERAL VASCULAR [id number] 07/27/2024 [id number] / / [id number] documented as of this encounter Advance Directives [...] and were consensually agreed upon. Care Teams Product/Device Technologist Relationship Specialty Start Date End Date Mauro Watson DO [address] [facility] [place] [address] PCP - General Family Medicine 04/13/19 documented as of this encounter
--- OUTSIDE RECORDS SUMMARY | 2024-02-19 09:22 | External Medical Summary | Summary of Care ---
Author Name Unknown Organization [facility] Address [address] [place] [address] Phone [phone] Care Team Providers Care Landscaping Crew Leader Name Role Phone Mauro Watson [...] MD FOSAPREPITANT INJECTION Lasha Christine MD 200 [facility] [place] [address] Anc Hem/Onc [address] [address] Referral ID Status Reason Start Date Expiration Date V isits Requested Visits Authorized [id number] Authorized 08/22/2023 04/28/[phone] Encounter Details Date Type Department Care Team (Latest Contact Info) Description 01/16/2024 8:45 AM EDT Hem/Onc Treatment Hematology/Oncolog y Treatment, [address] [phone] Diane, Chair 7 Hem Onc [address] [place] [id number] Encounter for antineoplastic chemotherapy*; 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); Malignant neoplasm of left lung, unspecified part of lung (HCC); Need for prophylactic vaccination and inoculation against influenza Allergies Active Allergy Reactions Criticality Noted Date Comments Aspirin Bleeding High 11/26/2011 Significant hemorroidal bleed on aspirin,high doses Duloxetine Hcl Hypertension 01/26/2020 documented as of this encounter (statuses as of 01/16/2024) Medications Medication Sig Dispensed Refills Start Date End Date Status Acetaminophen 325 MG Oral Tablet (Tylenol) take 2 tablet by mouth every 4 hours if needed FOR FEVER OR PAIN 05/08/2022 Active Omeprazole 20 MG Oral Capsule Delayed Release (PriLOSEC)Indication s: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) Take 1 Capsule by mouth in the morning. 30 Capsule 5 02/06/2023 Active Additional Information Patient not taking.Reported on 02/18/2023 Prochlorperazine Maleate 10 MG Oral Tablet (Compazine)Indicatio [...] for Nausea. 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 05/05/2019 History of colon polyps 08/12/2018 ACEI/ARB contraindicated 09/21/2016 Carotid aneurysm, left 09/13/2015 Overview: S/p coil embolization Cerebral aneurysm, nonruptured 09/05/2015 AAA (abdominal aortic aneurysm) 06/20/2015 Overview: S/p repair Bilateral carotid artery disease 06/20/2015 Medical home patient encounter 05/19/2014 Hypertriglyceridemia 05/16/2012 CORON ATHEROSCL [place] CORON VESSEL 07/11/2010 Dyslipidemia, goal LDL below [...] as of this encounter (statuses as of 01/16/2024) Resolved Problems Problem Noted Date Diagnosed Date [...] as of this encounter (statuses as of 01/16/2024) Immunizations Name Administration Dates Next Due COVID-19 [...] symptoms or fever? No Have you had Guillain-[place] Syndrome (an illness that causes paralysis) within [...] today? No Patient allergic to latex? No VFC Stock: Yes, Does this patient qualify for immunization through the [facility] program because he/she (check only one): [...] Description 02/06/2024 9:00 AM EDT Laboratory Laboratory [facility] [address] [place] [phone] Park, Lab Scenery 200 [place] [address] 02/06/2024 10:00 AM EDT Hem/Onc Treatment Hematology/Oncology Treatment, [place] [address] [place] [address] Park, Chair 9 Hem Onc Scenery [address] [place] [address] 02/10/2024 9:00 AM EDT Appointment Vascular Lab [address] [id number] 02/10/2024 10:00 AM EDT Office Visit [facility] [place] [address] [place] [address] Margarito Cabrera MD [address] [place], [place] [id number] 02/13/2024 9:00 AM EDT Imaging Radiology [facility] 1st [facility] [address] [place] [address] 02/27/2024 7:40 AM EDT Laboratory Laboratory [facility] [place] [address] [place] [phone] Diane, Lab Scenery [address] [facility] [place] [address] 02/27/2024 8:15 AM EDT Office Visit Hematology/Oncology [facility] [place] [address] [place] [address] Lasha Christine MD [address] [place] [address] 02/27/2024 8:45 AM EDT Hem/Onc Treatment Hematology/Oncology Treatment, [place] [address] [place] [phone] Diane, Chair 2 Hem Onc Scenery [address] [place] [address] 04/11/2024 1:20 PM EST Office Visit Family Practice [facility] [address] [place] [address] Mauro Watson, [address] [place] [address] 08/13/2024 11:40 AM EDT Office Visit Family Practice [facility] [address] [place] [address] Mauro Watson, [address] [place] [address] Scheduled Procedures Name Priority Associated Diagnoses Date/Ti me INJECTION SPINE LUMBAR OR SACRAL Lumbar radiculopathy COLONOSCOPY FLEXIBLE PROXIMAL DIAGNOSTIC Recall History of colon polyps Health Maintenance Due Date Last Done Comments Cologuard 1994 Sigmoidoscopy 1994 Fecal Occult Blood Test 02/03/2001 02/04/2000, 02/02 Adult Wellness Visit 01/25/2022 01/25/2021 Depression Screening 05/17/2023 05/17/2022 Colonoscopy 11/03/2023 11/02/2022, 0710/2022, 05/07/2022, Additional history exists Colorectal Cancer Screening [...] this encounter Medical Devices Implanted Type Area Senior Underwriter Device Identifier Shelf Expiration Date Model / Serial / Lot Stent Main Body Xxtg-47-10-Zt - [id number] Implanted:Qty: 1 on 06/10/2014 [place]onal [place] [facility] [place] Aorta [employer] 04/07/2016 TFFB-24-8 2-ZT / / Graft Iliac Leg Spirlz 01i19rp - [id number] Implanted:Qty: 1 on 06/10/2014 by Ronal Gal[place] [facility] [place]: Aorta [employer] 10/09/2015 [id number] / / [id number] Description: Graft Iliac Leg Spirlz 42x46ej - [id number] Implanted:Qty: 1 on 06/10/2014 by Ronal Gal[place] [facility] [place]: Femoral Artery [employer] 11/07/2016 [id number] / / [id number] Stent Polmer 29mm P3110 - [id number] Implanted:Qty: 1 on 06/10/2014 by Ronal Gal[place] [facility] [place]/A: Aorta JNJ : CORDIS ENDOVASCULAR 07/26/2018 [id number] / / [id number] Codman Orbit Galaxy Coil 2.5mm X 3.5cm Implanted:Qty: 1 on 09/12/2015 by Arik Shin [place] [facility] [place]: Head LENORA [employer] L[place]ORA [facility] [place] 02/26/2017 [id number] / [id number] / [id number] Description:COMPLEX XTRASOFT detachable coil deployed left internal carotid artery Codman Orbit Galaxy Coil 2.5mm X 2.5cm Implanted:Qty: 1 on 09/12/2015 by Arik Shin MD [place] [facility] [place]: Head LENORA & LENORA CODMAN 01/27/2016 [id number] / [id number] / [id number] Description:COMPLEX XTRASOFT detachable coil deployed left internal carotid artery aneurysm Codman [place] 2 Stent 4mm X 30mm Implanted:Qty: 1 on 09/12/2015 by Arik Shin MD [place] [facility] [place] Left: Head LENORA & LENORA DEPUY 03/26/2018 [id number] / [id number] / [id number] Description:Vascular reconst ruction device deployed in left internal carotid artery Codman Orbit Galaxy Coil 6mm X 20cm Implanted:Qty: 1 on 09/12/2015 by Arik Shin [place] [facility] [place]: Head LENORA & LENORA CODMAN 09/26/2016 [id number] / [id number] / [id number] Description:COMPLEX FILL det achable coil deployed left internal carotid artery aneurysm Codman Orbit Galaxy Coil 4mm X 10cm Implanted:Qty: 1 on 09/12/2015 by Arik Shin [place] [facility] [place]: Head LENORA & LENORA CODMAN 10/27/2015 [id number] / [id number] / [id number] Description:COMPLEX XTRASOFT detachable coil deployed left internal carotid artery aneurysm Codman Orbit Galaxy Coil 3.5mm X 9cm Implanted:Qty: 1 on 09/12/2015 by Arik Shin [place] [facility] [place]: Head LENORA & LENORA CODMAN 12/28/2015 [id number] / [id number] / [id number] Description:COMPLEX XTRASOFT detachable coil deployed left internal carotid artery aneurysm Codman Orbit Galaxy Coil 3mm X 6cm Implanted:Qty: 1 on 09/12/2015 by Arik Shin [place] [facility] [place]: Head LENORA & LENORA [facility] [place] 04/28/2017 [id number] / [id number] / [id number] Description:COMPLEX XTRASOFT detachable coil deployed left internal carotid artery aneurysm Lens Intraoc 21.0 - [id number] - [id number] Implanted:Qty: 1 on 11/08/2020 by Yuri Bradley MD at OR [facility] Left: Eye BAUSCH & LOMB 06/26/2025 [id number] / [id number] / [id number] Lens Intraoc 20.5 - [id number] - [id number] Implanted:Qty: 1 on 11/22/2020 by Yuri Bradley MD at OR [facility] Right: Eye BAUSCH & LOMB 07/27/2025 [id number] / [id number] / [id number] Clip Quick 2.8mm 230cm - [id number] Implanted:Qty: 3 on 03/29/2021 by Luciana Fernandez MD at ENDOSCOPY [facility] [employer] 08/27/2023 HX-202UR. A / / Sureclip 16mm 235cm - [id number] Implanted:Qty: 2 on 05/07/2022 by Luciana Fernandez MD at ENDOSCOPY [facility] Colon MICRO TECH ENDOSCOPY 07/06/2024 [id number] / / Power Port 8fr Sngl Lumen Plas - [id number] Implanted:Qty: 1 on 01/30/2023 by Koko Santiago MD at OR [facility] N/A: Chest CR BARD : PERIPHERAL VASCULAR 07/27/2024 [id number] / / [id number] Power Port 8fr Sngl Lumen Plas - [id number] Implanted:Qty: 1 on 01/30/2023 by Koko Santiago MD at OR [facility] CR BARD : PERIPHERAL VASCULAR [id number] 07/27/2024 [id number] / / [id number] documented as of this encounter Visit Diagnoses Diagnosis Encounter for antineoplastic chemotherapy- Primary 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) Malignant neoplasm of left lung, unspecified part of lung (HCC) Need for prophylactic vaccination and inoculation against influenza documented in this encounter Administered Medications Active Administered Medications - up to 3 most recent administrations Medication Order MAR Action Action Date Dose Rate Site diphenhydrAMINE (Benadryl) inj 50 mg 50 mg, IV Push, ONCE PRN Other, Hypersensitivity Reaction, Starting on Sat01/16/24 at 0852, Until Sat01/17/24 at 0851, For 24 hours EPINEPHrine 1 MG/ML inj 0.3 mg 0.3 mg, Intramuscular, ONCE PRN Other, Hypersensitivity Reaction or Anaphylaxis, Starting on Sat01/16/24 at 0852, Until Sat01/17/24 at 0851, For 24 hours hEParin 100 UNIT/ML Lock Flush inj 500 Units 500 Units (5 mL), IV Lock, PRN Other, IV Flush, Starting on Lizz 01/16/24 at 0852, Until Sat01/17/24 at 0851, For 24 hours, Do not flush if lock, PICC, or central line not in place; IV infusing or unable to flush. Given 01/16/2024 12:02 PM EDT 500 Units Hydrocortisone Sod Suc (PF) (Solu-Cortef) inj 100 mg 100 mg, IV Push, ONCE PRN Other, Hypersensitivity Reaction, Starting on Sat01/16/24 at 0852, Until Sat01/17/24 at 0851, For 24 hours LORAzepam (Ativan) tab 0.5 mg 0.5 mg, Oral, ONCE PRN Anxiety, Nausea, Starting on Sat01/16/24 at 1000, Until Discontinued NSS infusion Intravenous, at 50 mL/hr, PRN, Starting on Sat01/16/24 at 1000, Until Discontinued, Maintenance line Start Infusion 01/16/2024 9:12 AM EDT 50 mL/hr oxygen GAS Inhalation, OXYGEN, First dose on Sat01/16/24 at 0930, Until Discontinued, Device/Managed by: Low Flow Device, [...] Push, PRN Other, IV Flush, Starting on Sat01/16/24 at 0852, Until Sat01/17/24 at 0851, For 24 hours, Do not flush if lock, PICC, or central line not in place; IV infusing or unable to flush. Given 01/16/2024 12:02 PM EDT 10 mL Inactive Administered Medications [...] after Alimta complete, ONCE, 1 dose, On Sat01/16/24 at 0930 Start Infusion 01/16/2024 10:52 AM EDT 339 mg 510 mL/hr Fosaprepitant Dimeglumine (Emend) 150 mg, ondansetron (Zofran) 16 mg, dexamethasone sodium phosphate 12 mg in NSS 250 mL Infusion 150 mg, IV Piggyback, ONCE, 1 dose, On Lizz 01/16/24 at 0930, Administer over 30 Minutes, Infuse over 30 minutes Start Infusion 01/16/2024 9:13 AM EDT 150 mg 538.4 mL/hr NSS infusion FOR HYDRATION Intravenous, at 500 mL/hr Administer over 2 Hours, ONCE PRN, 1 dose, Starting on Lizz 01/16/24 at 0852, Until Lizz 01/16/24 at 1159 Start Infusion 01/16/2024 10:02 AM EDT 1,000 mL 500 mL/hr PEMEtrexed Disodium (Alimta) 700 mg in NSS 100 mL infusion 700 mg (rounded from 740 mg = 400 mg/m2 1.85 m2 Treatment Plan BSA from Recorded weight), IV Piggyback, ONCE, 1 dose, On Lizz 01/16/24 at 0915, Administer over 10 Minutes Start Infusion 01/16/2024 10:06 AM EDT 700 mg 630 mL/hr documented in this encounter Advance Directives * Full Code (Latest Code Status on File) Date Activated Date Inactivated Comments 09/12/2015 11:01 AM 09/13/2015 2:50 PM This order reflects the patients wishes and were consensually agreed upon. * Full Code Date Activated Date Inactivated Comments 06/10/2014 10:48 AM 06/11/2014 8:37 PM This order reflects the patients wishes and were consensually agreed upon. Care Teams Landscaping Crew Leader Relationship Specialty Start Date End Date Mauro Watson DO [address] [place] [address] PCP - General Family Medicine 04/13/19 documented as of this encounter
--- OUTSIDE RECORDS SUMMARY | 2024-02-19 09:22 | External Medical Summary | Summary of Care ---
Author Name Unknown Organization [facility] Address [address] [place] [address] Phone [phone] Care Team Providers Care Non Emergency Services Ambulance Driver Name Role Phone Mauro Watson DO Primary Care Provider Reason for Visit * Reason Onset Date Comments Health Maintenance 01/16/2024 Encounter Details Date Type Department Care Team (Late st Contact Info) Description 01/16/2024 Telephone Family Practice [facility] [address] [place] [address] Mauro Watson DO [address] [place] [address] Health Maintenance Allergies Active Allergy Reactions Criticality Noted Date [...] EGFR 72 Lumbar radiculopathy 05/27/2019 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 Never true 01/23/20 23 Within the past 12 months, t [...] encounter Miscellaneous Notes * Telephone Encounter - Albertina Gilliam LPN - 01/16/2024 11:41 AM EDT Care Gaps Comprehensive Care Outreach Last Office/Telemedicine Visit: 12/06/2022 (in office), 11/09/2021 (telemedicine) Next Office Visit: 04/11/2024 Hemoglobin AIC Results: Lab Results Component Value Date/Time HEMOGLOBIN A1C - [facility] 5.5 05/11/2021 11:39 AM HEMOGLOBIN A1C - [facility] 5.5 12/01/2020 01:08 PM BP Readings from Last 1 Encounters: 01/16/24 117/76 Reviewed Health Maintenance below: Health Maintenance Topic Date Due Adult Wellness Visit 01/25/2022 Depression Screening 05/17/2023 Colorectal Cancer Screening 11/03/2023 COVID-19 Vaccine ( season) 2023 Patient is at hem onc appt Care Gap Outreach Action Taken: Outreach not indicated documented in this encounter Plan of Treatment Upcoming Encounters Date Type Department Care Team (Late st Contact Info) Description 02/06/2024 9:00 AM EDT Laboratory Laboratory [facility] [address] [place] [phone] Diane, Lab [facility] [address] [facility] [place] [address] 02/06/2024 10:00 AM EDT Hem/Onc Treatment Hematology/Oncology Treatment, [place] [address] [place] [phone] Diane, Chair 9 Hem Onc [address]en[address] [place] [address] 02/10/2024 9:00 AM EDT Appointment Vascular Lab [place] [address] [place] [address] 02/10/2024 10:00 AM EDT Office Visit Vascular Surg [place] [address] [place] [address] Margarito Cabrera MD [address] [place] [address] 02/13/2024 9:00 AM EDT Imaging Radiology [facility] [address] [place] [address] 02/27/2024 7:40 AM EDT Laboratory Laboratory [facility] [place] [address] [place] [phone] Diane, Lab Scenery [address] [place] [address] 02/27/2024 8:15 AM EDT Office Visit Hematology/Oncology [facility] [place] [address] [place] [phone] Lasha Christine MD [address] [place] [address] 02/27/2024 8:45 AM EDT Hem/Onc Treatment Hematology/Oncology Treatment, [place] [address] [place] [phone] Diane, Chair 2 Hem Onc Scenery [address] [place] [address] 04/11/2024 1:20 PM EST Office Visit [facility] [address] [place] [address] Mauro Watson, [address] [place] [address] 08/13/2024 11:40 AM EDT Office Visit [facility] [address] [place] [address] Mauro Watson DO [address] [place] [address] Scheduled Procedures Name Priority Associated Diagnoses Date/Ti [...] this encounter Medical Devices Implanted Type Area Steak Tenderizer Machine Device Identifier Shelf Expiration Date Model / Serial / Lot Stent Main Body Orng-91-90-Zt - [id number] Implanted:Qty: 1 on 06/10/2014 by Ronal Gal[place] [facility] [place] Aorta [employer] 04/07/2016 TFFB-24-8 2-ZT / / Graft Iliac Leg Spirlz 75u23ri - [id number] Implanted:Qty: 1 on 06/10/2014 by Ronal Gallegos [place] [facility] [place]: Aorta [employer] 10/09/2015 [id number] / / [id number] Description: Graft Iliac Leg Spirlz 63b07cw - [id number] Implanted:Qty: 1 on 06/10/2014 by Ronal Gallegos MD [place] [facility] [place] Right: Femoral Artery [employer] 11/07/2016 [id number] / / [id number] Stent Polmer 29mm P3110 - [id number] Implanted:Qty: 1 on 06/10/2014 by Ronal Gallegos MD [place] [facility] [place] N/A: Aorta JNJ : CORDIS ENDOVASCULAR 07/26/2018 P3110 / / [id number] Codman Orbit Galaxy Coil 2.5mm X 3.5cm Implanted:Qty: 1 on 09/12/2015 by Arik Shin MD [place] [facility] [place] Left: Head LENORA [employer] LENORA CODMAN 02/26/2017 [id number] / [id number] / [id number] Description:COMPLEX XTRASOFT detachable coil deployed left internal carotid artery Codman Orbit Galaxy Coil 2.5mm X 2.5cm Implanted:Qty: 1 on 09/12/2015 by Arik Shin MD [place] [facility] [place] Left: Head LENORA & LENORA CODMAN 01/27/2016 [id number] / [id number] / [id number] Description:COMPLEX XTRASOFT detachable coil deployed left internal carotid artery aneurysm Codman [place] 2 Stent 4mm X 30mm Implanted:Qty: 1 on 09/12/2015 by Arik Shin MD [place] [facility] [place] Left: Head LENORA & LENORA DEPUY 03/26/2018 [id number] / [id number] / [id number] Description:Vascular reconst ruction device deployed in left internal carotid artery Codman Orbit Galaxy Coil 6mm X 20cm Implanted:Qty: 1 on 09/12/2015 by Arik Shin MD at [place] [facility] [place] Left: Head LENORA & LENORA CODMAN 09/26/2016 [id number] / [id number] / [id number] Description:COMPLEX FILL det achable coil deployed left internal carotid artery aneurysm Codman Orbit Galaxy Coil 4mm X 10cm Implanted:Qty: 1 on 09/12/2015 by Arik Shin MD [place] [facility] [place] Left: Head LENORA & LENORA CODMAN 10/27/2015 [id number] / [id number] / [id number] Description:COMPLEX XTRASOFT detachable coil deployed left internal carotid artery aneurysm Codman Orbit Galaxy Coil 3.5mm X 9cm Implanted:Qty: 1 on 09/12/2015 by Arik Shin MD [place] [facility] [place] Left: Head LENORA & LENORA CODMAN 12/28/2015 [id number] / [id number] / [id number] Description:COMPLEX XTRASOFT detachable coil deployed left internal carotid artery aneurysm Codman Orbit Galaxy Coil 3mm X 6cm Implanted:Qty: 1 on 09/12/2015 by Arik Shin MD at [place] [facility] Left: Head LENORA & LENORA CODMAN 04/28/2017 [id number] / [id number] / [id number] Description:COMPLEX XTRASOFT detachable coil deployed left internal carotid artery aneurysm Lens Intraoc 21.0 - [id number] - [id number] Implanted:Qty: 1 on 11/08/2020 by Yuri Bradley MD at OR [facility] Left: Eye BAUSCH & LOMB 06/26/2025 [id number] / [id number] / [id number] Lens Intraoc 20.5 - [id number] - [id number] Implanted:Qty: 1 on 11/22/2020 by Yuri Bradley MD at OR [facility] Right: Eye BAUSCH & LOMB 07/27/2025 [id number] / [id number] / [id number] Clip Quick 2.8mm 230cm - [id number] Implanted:Qty: 3 on 03/29/2021 by Luciana Fernandez MD at ENDOSCOPY [facility] [employer] 08/27/2023 HX-202UR. A / / Sureclip 16mm 235cm - [id number] Implanted:Qty: 2 on 05/07/2022 by Luciana Fernandez MD at ENDOSCOPY [facility] Colon MICRO TECH ENDOSCOPY 07/06/2024 [id number] / / Power Port 8fr Sngl Lumen Plas - [id number] Implanted:Qty: 1 on 01/30/2023 by Koko Santiago MD at OR [facility] N/A: Chest CR BARD : PERIPHERAL VASCULAR 07/27/2024 [id number] / / [id number] Power Port 8fr Sngl Lumen Plas - [id number] Implanted:Qty: 1 on 01/30/2023 by Koko Santiago MD at OR [facility] CR BARD : PERIPHERAL VASCULAR [id number] 07/27/2024 [id number] / / [id number] documented as of this encounter Advance Directives [...] and were consensually agreed upon. Care Teams Non Emergency Services Ambulance Driver Relationship Specialty Start Date End Date Mauro Watson DO [address] [facility] [place] [address] PCP - General Family Medicine 04/13/19 documented as of this encounter
--- OUTSIDE RECORDS SUMMARY | 2024-02-19 09:22 | External Medical Summary | Summary of Care ---
Author Name Unknown Organization [facility] Address [address] [place] [address] Phone [phone] Care Team Providers Care Oracle Database Architect Name Role Phone Walter Mauro Leonardogordy Primary Care Provider Reason for Visit * Reason Onset Date Comments Advice 01/20/2024 Burning in chest . Encounter Details Date Type Department Care Team (Late st Contact Info) Description 01/20/2024 Telephone Hematology/Oncology [facility] [address] [place] [phone] Services, Scheduling [address] [place] [address] Advice (Burning in chest. 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 01/21/2023 Encounter for antineoplastic chemotherapy 2022 Medical marijuana use 08/26/2021 CKD (chronic kidney disease), stage II 2 Overview: EGFR 72 Lumbar radiculopathy 05/27/2019 Atherosclerosis of [place] co ronary artery of [place] heart with angina pectoris 05/05/2019 History of colon polyps 08/12/2018 ACEI/ARB contraindicated 09/21/2016 Carotid aneurysm, left 09/13/2015 Overview: S/p coil embolization Cerebral aneurysm, nonruptured 09/05/2015 AAA (abdominal aortic aneurysm) 06/20/2015 Overview: S/p repair Bilateral carotid artery disease 06/20/2015 Medical home patient encounter 05/19/2014 Hypertriglyceridemia 05/16/2012 CORON ATHEROSCL [place] CORON VESSEL 07/11/2010 Dyslipidemia, goal LDL below [...] as of this encounter (statuses as of 01/20/2024) Resolved Problems Problem Noted Date Diagnosed Date [...] as of this encounter (statuses as of 01/20/2024) Immunizations Name Administration Dates Next Due COVID-19 [...] Telephone Encounter - Lorri Matias RN - 01/20/2024 10:24 AM EDT Reviewed with Enriqueta- ordered rib/chest xray. Patient states that he will come around 12:45/ 1pm for xray first. * Telephone Encounter - Lorri Matias RN - 01/20/2024 9:21 AM EDT Called patient to review. He states that when he fell 1-2 weeks ago, he hit the left side of his chest directly against a end table. Left side hurts the most, but the right hurts as well. He states that it does hurt more when he takes deep breaths. Asked him to come in today at 1:30pm to see Enriqueta- he accepted appt. * Telephone Encounter - Veronica Briones LPN - 01/20/2024 8:22 AM EDT Nursing: Patient calling with c/o "chest burning". States he fell and hit the left side of his chest 1-2 weeks ago. He denies any SOB or difficulty breathing at this time. Location of Pain: Bilateral Chest, "worst on the left side" Intensity: 5:10 on NRS scale Description: "burning" Onset: 1 week ago, patient states "comes and goes", Patient reports chest pain since fall 1-2 weeksago. Aggravating Factors: Worse with movement Relieving Factors: Patient denies any relieving factors, States he has been sleeping "a lot" Current pain regime: OTC Tylenol 500 mg, "one by mouth". Patient states he "does not like" oxycodone Preferred [facility] * Telephone Encounter - Gina Knapp OSA - 01/20/2024 8:15 AM EDT What is the reason for call? states he got chemo treatment on 01/15 and ever since tuesday 01/16 his chest has been burning. What Clinic is the patient trying to reach? HEM ON[facility] Call was warm transferred to Veronica Briones. documented in this encounter Plan of Treatment Upcoming Encounters Date Type Department Care Team (Late st Contact Info) Description 02/06/2024 9:00 AM EDT Laboratory Laboratory [facility] [place] [address] [place] [phone] Diane, Lab Scenery [address] [facility] [place] [address] 02/06/2024 10:00 AM EDT Hem/Onc Treatment Hematology/Oncology Treatment, [place] [address] [place] [phone] Diane, Chair 9 Hem Onc [address] [place] [address] 02/10/2024 9:00 AM EDT Appointment Vascular Lab [facility] [place] [address] [place] [address] 02/10/2024 10:00 AM EDT Office Visit Vascular Surg [facility] [address] [place] [address] Margarito Cabrera MD [address] [place] [address] 02/13/2024 9:00 AM EDT Imaging Radiology [address], [place] [address] [facility] [place] [address] 02/27/2024 7:40 AM EDT Laboratory Laboratory [facility] [place] [address] [place] [phone] Diane Lab Scenery [address] [facility] [place] [address] 02/27/2024 8:15 AM EDT Office Visit Hematology/Oncology [facility] [place] [address] [place] [phone] Lasha Christine MD [address] [place] [address] 02/27/2024 8:45 AM EDT Hem/Onc Treatment Hematology/Oncology Treatment, [place] [address] [place], [place] [phone] Diane, Chair 2 Hem Onc Scenery [address] [place] [address] 04/11/2024 1:20 PM EST Office Visit [facility] [address] [place] [address] Mauro Watson, DO [address] [place] [address] 08/13/2024 11:40 AM EDT Office Visit [facility] [address] [place] [address] Mauro Watson, DO [address] [facility] [place] [address] Pending Results Name Type Priority Associated Diagnoses Date /Time XR RIBS BILATERAL AND PA CHEST MINIMUM 4 VIEWS Medical Imaging STAT 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) Malignant neoplasm of left lung, unspecified part of lung (HCC) Cholangiocarcinoma (HCC) 01/20/2024 1:22 PM EDT Scheduled Procedures Name Priority Associated Diagnoses [...] this encounter Medical Devices Implanted Type Area Sales And Service Officer Device Identifier Shelf Expiration Date Model / Serial / Lot Stent Main Body [id number] - [id number] Implanted:Qty: 1 on 06/10/2014 by Ronal Gallegos MD [place] [facility] Aorta [employer] 04/07/2016 [id number] / / Graft Iliac Leg Spirlz 06g10gm - [id number] Implanted:Qty: 1 on 06/10/2014 by Ronal Gallegos MD [place] [facility] Right: Aorta [employer] 10/09/2015 [id number] / / [id number] Description: Graft Iliac Leg Spirlz [id number] - [id number] Implanted:Qty: 1 on 06/10/2014 by Ronal Gallegos MD [place] [facility] Right: Femoral Artery [employer] 11/07/2016 [id number] / / [id number] Stent Polmer 29mm P3110 - [id number] Implanted:Qty: 1 on 06/10/2014 by Ronal Gallegos MD at [place] [facility] N/A: Aorta JNJ : [employer] 07/26/2018 [id number] / / [id number] Codman Orbit Galaxy Coil 2.5mm X 3.5cm Implanted:Qty: 1 on 09/12/2015 by Arik Shin MD at [place] [facility] Left: Head [employer]ONRA [employer] LENORA [employer]ODMAN 02/26/2017 [id number] / [id number] / [id number] Description:COMPLEX XTRASOFT detachable coil deployed left internal carotid artery Codman Orbit Galaxy Coil 2.5mm X 2.5cm Implanted:Qty: 1 on 09/12/2015 by Arik Shin MD at [place] [facility] Left: Head [employer]A [employer] 01/27/2016 [id number] / [id number] / [id number] Description:COMPLEX XTRASOFT detachable coil deployed left internal carotid artery aneurysm [employer]man [place] 2 Stent 4mm X 30mm Implanted:Qty: 1 on 09/12/2015 by Arik Shin MD at [place] [facility] Left: Head [employer]EN[employer]A [employer] LENORA DEPUY 03/26/2018 [id number] / [id number] / [id number] Description:Vascular reconst ruction device deployed in left internal carotid artery Codman Orbit Galaxy Coil 6mm X 20cm Implanted:Qty: 1 on 09/12/2015 by Arik Shin MD at [place] [facility] Left: Head [employer]A [employer]MAN 09/26/2016 [id number] / [id number] / [id number] Description:COMPLEX FILL det achable coil deployed left internal carotid artery aneurysm Codman Orbit Galaxy Coil 4mm X 10cm Implanted:Qty: 1 on 09/12/2015 by Arik Shin MD at [place] [facility] Left: Head [employer] 10/27/2015 [id number] / [id number] / [id number] Description:COMPLEX XTRASOFT detachable coil deployed left internal carotid artery aneurysm Codman Orbit Galaxy Coil 3.5mm X 9cm Implanted:Qty: 1 on 09/12/2015 by Arik Shin MD at [place] [facility] Left: Head [employer] 12/28/2015 [id number] / [id number] / [id number] Description:COMPLEX XTRASOFT detachable coil deployed left internal carotid artery aneurysm Codman Orbit Galaxy Coil 3mm X 6cm Implanted:Qty: 1 on 09/12/2015 by Arik Shin MD at [place] [facility] Left: Head [employer]A [employer]A [employer] 04/28/2017 [id number] / [id number] / [id number] Description:COMPLEX XTRASOFT detachable coil deployed left internal carotid artery aneurysm Lens Intraoc 21.0 - [id number] - [id number] Implanted:Qty: 1 on 11/08/2020 by Yuri Bradley MD at [place] [facility] Left: Eye [employer]OMB 06/26/2025 [id number] / [id number] / [id number] Lens Intraoc 20.5 - [id number] - [id number] Implanted:Qty: 1 on 11/22/2020 by Yuri Bradley MD at [place] [facility] Right: Eye BAUSCH [employer] LOMB 07/27/2025 [id number] / [id number] / [id number] Clip Quick 2.8mm 230cm - [id number] Implanted:Qty: 3 on 03/29/2021 by uLciana Fernandez MD at ENDOSCOPY [facility] [employer] 08/27/2023 [id number]. [id number] / / Sureclip 16mm 235cm - [id number] Implanted:Qty: 2 on 05/07/2022 by Luciana Fernandez MD at ENDOSCOPY [facility] Colon MICRO TECH ENDOSCOPY 07/06/2024 [id number] / / Power Port 8fr Sngl Lumen Plas - [id number] Implanted:Qty: 1 on 01/30/2023 by Koko Santiago MD at OR [facility] N/A: Chest CR BARD : PERIPHERAL VASCULAR 07/27/2024 [id number] / / [id number] Power Port 8fr Sngl Lumen Plas - [id number] Implanted:Qty: 1 on 01/30/2023 by Koko Santiago MD at OR [facility] BARD : PERIPHERAL VASCULAR [id number] 07/27/2024 [id number] / / [id number] documented as of this encounter Visit Diagnoses Diagnosis 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)- Primary Malignant neoplasm of left lung, unspecified part of lung (HCC) Cholangiocarcinoma (HCC) Malignant neoplasm of intrahepatic bile ducts documented in this encounter Advance Directives * Full Code (Latest Code Status on File) Date Activated Date Inactivated Comments 09/12/2015 11:01 AM 09/13/2015 2:50 PM This order reflects the patients wishes and were consensually agreed upon. * Full Code Date Activated Date Inactivated Comments 06/10/2014 10:48 AM 06/11/2014 8:37 PM This order reflects the patients wishes and were consensually agreed upon. Care Teams Oracle Database Architect Relationship Specialty Start Date End Date Mauro Watson DO [address] [place] [address] PCP - General Family Medicine 04/13/19 documented as of this encounter
--- OUTSIDE RECORDS SUMMARY | 2024-02-19 09:22 | External Medical Summary | Summary of Care ---
Author Name Unknown Organization [facility] Address [address] [place] [address] Phone [phone] Care Team Providers Care Beverage Distiller Name Role Phone WatsonJulienMauro Jordengordy Primary Care Provider Reason for Referral * Precert (Within 10 days (routine)) - Authorized Specialty Diagnoses / Procedures Referred By Contac t Referred To Contact Radiology Diagnoses Malignant neoplasm of left lung, unspecified part of lung (HCC) 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) Procedures CT CHEST/ABDOMEN/PELVIS WITH IV CONTRAST WITH ORAL CONTRAST Lasha Christine MD [address] [place] [address] Referral ID Status Reason Start Date Expiration Date V isits Requested Visits Authorized [id number] Authorized 01/16/2024 999 999 Reason for Visit * Reason Comments Chemotherapy Chemo/recheck Encounter Details Date Type Department Care Team (Late st Contact Info) Description 01/16/2024 8:15 AM EDT Office Visit Hematology/Oncology Nandini Contreras [place] [address] [place] [phone] Lasha Christine MD [address] [facility] [place] [address] Malignant neoplasm of left lung, unspecified part of lung (HCC)*; 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) Allergies Active Allergy Reactions Criticality Noted Date Comments Aspirin Bleeding High 11/26/2011 Significant hemorroidal bleed on aspirin,high doses Duloxetine Hcl Hypertension 01/26/2020 documented as of this encounter (statuses as of 01/17/2024) Medications Medication Sig Dispensed Refills Start Date [...] as of this encounter (statuses as of 01/17/2024) Active Problems Problem Noted Date Diagnosed Date Malignant neoplasm of left lung 08/23/2023 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 01/21/2023 Encounter for antineoplastic chemotherapy 2022 Medical marijuana use 08/26/2021 CKD (chronic kidney disease), stage II 2 Overview: EGFR 72 Lumbar radiculopathy 05/27/2019 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 05/05/2019 History of colon polyps 08/12/2018 ACEI/ARB contraindicated 09/21/2016 Carotid aneurysm, left 09/13/2015 Overview: S/p coil embolization Cerebral aneurysm, nonruptured 09/05/2015 AAA (abdominal aortic aneurysm) 06/20/2015 Overview: S/p repair Bilateral carotid artery disease 06/20/2015 Medical home patient encounter 05/19/2014 Hypertriglyceridemia 05/16/2012 CORON ATHEROSCL [place] CORON VESSEL 07/11/2010 Dyslipidemia, goal LDL below [...] as of this encounter (statuses as of 01/17/2024) Resolved Problems Problem Noted Date Diagnosed Date [...] as of this encounter (statuses as of 01/17/2024) Immunizations Name Administration Dates Next Due COVID-19 [...] Sign Reading Time Taken Comments Blood Pressure 117/76 01/16/2024 8:14 AM EDT Pulse 79 01/16/2024 8:14 AM EDT Temperature 36.2 C (97.1 F) 01/16/2024 8:14 AM ED T Respiratory Rate - - Oxygen Saturation 97% 01/16/2024 8:14 AM EDT Inhaled Oxygen Concentration - - Weight 75.2 kg (165 lb 12.8 oz) 01/16/2024 8:14 AM EDT Height - - Body Mass Index 25.21 01/16/2024 8:00 AM EDT documented in this [...] Progress Notes * Lasha Christine MD - 01/16/2024 8:15 AM EDT Hematology/Oncology Outpatient Clinic note [facility] [address] [facility] [place] [address] Name: Mp Vaughn Date: 09/12/2023 CHIEF COMPLAINT: Mp Vaughn is a 73 year old male here today for f/u visit today. HEMATOLOGY/ONCOLOGY DIAGNOSIS: Malignant neoplasm metastatic to liver, [...] the recommendation from Dr. Jose Bejarano from [facility] every 21 days x 8 cycles (03/04/23 - 07/29/2023), Discontinued because of disease progression mainly in the liver. CURRENT TREATMENT: Carboplatin AUC 5 and Pemetrexed every 21 days x 5 (08/23/23 -11/14/2023 ) Because of low blood count issues, [...] more chemotherapy treatment. HISTORY OF PRESENT ILLNESS: He has come the clinic for the follow-up,only received Alimta and carboplatin every 3 weekly but because of low blood count issues, especially worsening anemia, decided to drop down carboplatin and continue Alimta which he received for the last 2 times. Overall he is doing well but recently had an accidental fall with injury to the left chest wall, may have injury to chest wall muscle or, currently he is not on pain medication, feeling more tiredness, no nausea, vomiting, no fever. Current weight is 165 best, no increasing headache. He is not on opioid therapy. Takes folic acid on a regular basis, received vitamin B- 12 injection every 9 weekly. Past Medical History: Diagnosis Date AAA (abdominal [...] performed by Arik Shin MD at [place] [facility] CATHETER OCCLUSION/EMBOLIZATION,GASTROENTEROLOGY NURSE PRACTITIONER N/A 09/12/2015 TRANSCATHETER PERMANENT ARTERIAL OCCLUSION CENTRAL NERVOUS SYSTEM performed by Arik Shin MD at [facility] COLONOSCOPY W/ LESION REMOVAL, SNARE 09/09/2006 adenomatous polyp--repeat 5 years COLONOSCOPY, DIAGNOSTIC (RECTUM) 08/15/2012 adenomatous polyp, diverticulosis, repeat 5 yrs/COLONOSCOPY FLEXIBLE PROXIMAL DIAGNOSTIC performed by Luciana Fernandez MD at ENDOSCOPY [facility] COLONOSCOPY, DIAGNOSTIC (RECTUM) 11/23/2015 adenomatous polyps, diverticulosis, andiodysplastic lesions, repeat 5 yrs/[facility] COLONOSCOPY, DIAGNOSTIC (RECTUM) 11/28/2015 colonic ulcer, diverticulosis/inpt [facility] COLONOSCOPY, DIAGNOSTIC (RECTUM) 03/29/2021 adenomatous polyps, diverticulosis, repeat 1 yr / COLONOSCOPY FLEXIBLE PROXIMAL DIAGNOSTIC performed by Luciana Fernandez MD at [facility] COLONOSCOPY, DIAGNOSTIC (RECTUM) 05/07/2022 benign adenomatous polyps, repeat 6 mo / COLONOSCOPY FLEXIBLE PROXIMAL DIAGNOSTIC performed by Luciana Fernandez MD at [facility] COLONOSCOPY, DIAGNOSTIC (RECTUM) 11/02/2022 resolving ischemic colitis, repeat 9 mo / COLONOSCOPY FLEXIBLE PROXIMAL DIAGNOSTIC performed by Luciana Fernandez MD at [facility] EGD, FLEXIBLE, DIAGNOSTIC 11/23/2015 reflux esophagitis, Schatzki ring, [facility] EGD, FLEXIBLE, DIAGNOSTIC 01/02/2023 hiatal hernia/gastritis/biopsies show mild gastritits of stomach/ESOPHAGOGASTRODUODENOSCOPY (EGD), FLEXIBLE, TRANSORAL, DIAGNOSTIC performed by Jory Sauceda DO at [facility] EGD, W/ENDOSCOPIC US 01/02/2023 multiple metastatic lesions liver/ESOPHAGOGASTRODUODENOSCOPY (EGD), FLEXIBLE, TRANSORAL, ENDOSCOPICULTRASOUND performed by Jory Sauceda DO at [facility] HEMORRHOIDECTOMY, INTERNAL, 2 + COLUMNS 06/28/2000 Internal x 3, Dr Gallego INJECT DX/THER SUBSTANCE INTERLAMINAR LUMBAR/SACRAL W IMAGE GUIDE 11/13/2018 INJECTION SPINE LUMBAR OR SACRAL performed by Deep León DO at [facility] INJECT DX/THER SUBSTANCE INTERLAMINAR LUMBAR/SACRAL W IMAGE GUIDE 11/27/2018 INJECTION SPINE LUMBAR OR SACRAL performed by Deep León, DO at [facility] INJECT DX/THER SUBSTANCE INTERLAMINAR LUMBAR/SACRAL W IMAGE GUIDE 04/16/2019 INJECTION SPINE LUMBAR OR SACRAL performed by Deep León, at [facility] INJECT DX/THER SUBSTANCE INTERLAMINAR LUMBAR/SACRAL W IMAGE [...] performed by Wiliam Tam DO at OR [facility] INJECT DX/THER SUBSTANCE INTERLAMINAR LUMBAR/SACRAL W IMAGE GUIDE 04/02/2022 INJECTION SPINE LUMBAR OR SACRAL performed by Wiliam Tam DO at OR [facility] INJECT DX/THER SUBSTANCE INTERLAMINAR LUMBAR/SACRAL W IMAGE GUIDE 07/26/2022 INJECTION SPINE LUMBAR OR SACRAL performed by Wiliam Tam DO at OR [facility] INJECT DX/THER SUBSTANCE INTERLAMINAR LUMBAR/SACRAL W IMAGE GUIDE 07/31/2023 INJECTION SPINE LUMBAR OR SACRAL performed by Wiliam Tam DO at OR [facility] INSER TUNN ACC DEV;5 YRS/OLDER N/A 01/30/2023 INSERT TUNNELED CENTRAL VENOUS ACCESS WITH SUBQ PORT performed by Koko Santiago MD at OR [facility] INSERT ARTERY CATHETER THRU SKIN Right 06/10/2014 [...] performed by Deep León DO at OR [facility] OPEN FEMORAL ARTERY EXPOSURE FOR ENDOVASCULAR PROSTHESIS, UNILAT Bilateral 06/10/2014 bilateral femoral artery exposure by Dr. Gallegos. OTHER (INFORMATION) ACT [address] CATHETER IN ARTERIES N/A 08/31/2015 CATHETER PLACEMENT, BRACHIOCEPHALIC, THIRD ORDER BRANCH performed by Arik Shin MD at [facility] PL[facility] CATHETER IN ARTERIES N/A 09/12/2015 CATHETER PLACEMENT, BRACHIOCEPHALIC, THIRD ORDER BRANCH performed by Arik Shin MD at [facility] REMOVE CATARACT, INSERT LENS PROSTH Left 11/08/2020 left EXTRACAPSULAR CATARACT REMOVAL WITH INTRAOCULAR LENS performed by Yuri Bradley MD at [facility] REMOVE CATARACT, INSERT LENS PROSTH Right 11/22/2020 right EXTRACAPSULAR CATARACT REMOVAL WITH INTRAOCULAR LENS performed by Yuri Bradley MD at [facility] VERTEBRAL ARTERY CATHETER PLACEMENT Bilateral 08/20/2016 CATHETER PLACEMENT VERTEBRAL ARTERY, performed by Arik Shin MD at [facility] Social History Socioeconomic History Marital status: Spouse [...] mouth every 8 hours if needed for [id number] Tablet 2 Lidocaine-Prilocaine 2.5-2.5 % External Cream [...] SYSTEMS: See HPI - otherwise negative OBJECTIVE: BP 117/76 (BP Site: Left Arm, BP Position: Sitting, BP Cuff Size: Regular) | Pulse 79 | Temp 36.2 C (97.1 F) (Tympanic) | Wt 75.2 kg (165 lb 12.8 oz) | SpO2 97% | BMI 25.21 kg/m | BSA 1.9 m PHYSICAL EXAM: ECOG: Performance Status 1 = 80-90% Symptoms but nearly ambulatory General Appearance: No acute distress Lymph Nodes: Normal - No palpable lymph nodes in the neck or supraclavicular areas Lungs/Thorax: Normal - Clear to auscultation Heart: Normal - Regular rhythm, +tachycardia, normal S1, S2, no appreciable murmurs Pulses/Extremities: Normal - 2+ throughout and symmetrical, no edema Abdomen: Abdomen: Normal - Soft, bowel sounds present, +hepatomegaly Neurologic: Normal - Grossly intact LABS: Blood workup done on 01/16/2024: - WBC14,800, H&H of 10.5/30.8, platelet count of 162,000. -BUN/Creat: 19/1.1, AST 1.3, ALT 50, alkaline phosphatase 302, bilirubin level 0.7, calcium 10.1 - CEA level further increased on 33,120. IMAGING: MRA of the brain (11/02/2023: Stable 4 mm right ICA aneurysm. Stable embolized left ICA aneurysm. CT scan of the chest, abdomen and pelvis on 11/11/2023: - Mediastinal hilar lymph nodes --> unremarkable. - Innumerable liver masses, overall grossly decreased in the size, the largest one is about 3 cm (previously was 3.4 cm) - New right basilar linear atelectasis/scarring. Additional 6 mm right lower lobe nodular opacity. MRI of the lumbar spine on 11/28/2023: -multilevel DJD more pronounced at L3-L4 with moderate to severe spinal stenosis. No significant change when compared with the previous MRI done in April of 2021. IMPRESSION/PLAN: Malignant neoplasm metastatic to liver, unknown [...] cholangiocarcinoma and neuroendocrine cancer and several others. Currently he is receiving Alimta and carboplatin combination, received 5 cycles of chemotherapy so far, gradual reduction of CEA level around 20,000 range noted, improvement of the liver function test noted, he is feeling well, gained weight by about 10 lb and now stable weight. Previously noted abdominal pain improved, currently not taking opioid medication I reviewed with the him regarding the recent blood workup findings, worsening anemia and thrombocytopenia noted. No evidence of iron deficiency B12 or folic acid deficiency noted I reviewed his blood workup done today, anemia slightly improved after holding currently for the last 2 times. Slight team liver function test noted, CEA level has gone up to around 33,000 range. Would like to resume carboplatin at AUC of 4, would like to cut down the dose of Alimta 400 mg/m2, repeating chemotherapy every 3 weekly. I am planning for follow-up CT scan of the chest, abdomen and pelvis in last week of January 2024. Will see him in 6 weeks. He will continue vitamin B-12 and folic acid supplementation as we planned. Lasha Christine MD Hem/Onc documented in this encounter Nursing Notes * Rubina Wong CMA - 01/16/2024 8:16 AM EDT Patient identifed by name and birthdate [...] it for you? ALREADY ACTIVE Filed Vitals: 01/16/24 0814 BP: 117/76 Pulse: 79 Temp: 36.2 C (97.1 F) TempSrc: Tympanic SpO2: 97% Patient was instructed to not get up on the exam table/exam chair until directed and assisted by their provider; patient is to remain seated in the chair/ wheelchair/ exam table/ exam chair for fall prevention and safety reasons. Patient is aware to have assistance to step down off exam table/exam chair with personnel. Patient voiced full comprehension of instructions. documented in this encounter Plan of Treatment Upcoming Encounters Date Type Department Care Team (Late st Contact Info) Description 02/06/2024 9:00 AM EDT Laboratory Laboratory [facility] [address] [place] [phone] Diane, Lab Scenery [address] [place] [id number] 02/06/2024 10:00 AM EDT Hem/Onc Treatment Hematology/Oncology Treatment, [place] [address] [facility] [place] [phone] Diane, Chair 9 Hem Onc Scenery [address] [place] [address] 02/10/2024 9:00 AM EDT Appointment Vascular Lab [place] [address] [place] [address] 02/10/2024 10:00 AM EDT Office Visit Vascular Surg [place] [address] [place] [address] Margarito Cabrera MD [facility] [place] [address] 02/13/2024 9:00 AM EDT Imaging Radiology [facility], [place] [address] [facility] [place] [address] 02/27/2024 7:40 AM EDT Laboratory Laboratory [facility] [place] [address] [place] [phone] Diane, Lab Scenery [address] [facility] [place] [address] 02/27/2024 8:15 AM EDT Office Visit Hematology/Oncology [facility] [place] [address] [place] [phone] Lasha Christine MD [address] [place] [address] 02/27/2024 8:45 AM EDT Hem/Onc Treatment Hematology/Oncology Treatment, [place] [address] [place] [phone] Diane, Chair 2 Hem Onc Scenery [address] [place] [address] 04/11/2024 1:20 PM EST Office Visit [facility] [address] [place] [address] Mauro Watson, DO [address] [place] [place] [address] 08/13/2024 11:40 AM EDT Office Visit [facility] [address] [place] [place] [address] Mauro Watson, DO [address] [place] [address] Scheduled Orders Name Type Priority Associated Diagnoses Orde r Schedule CT CHEST/ABDOMEN/PELVI S WITH IV CONTRAST WITH ORAL CONTRAST Medical Imaging Routine Malignant neoplasm of left lung, unspecified part of lung (HCC) 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) Expected: 01/16/2024, Expires: 01/15/2025 Scheduled Procedures Name Priority Associated Diagnoses Date/Ti [...] Additional history exists Albumin/Creatinine Ratio 05/17/2025 05/17/2022, 04/3 DTap/Tdap Vaccines (3 - Td or Tdap) [...] this encounter Medical Devices Implanted Type Area Customs And Immigration Officer Device Identifier Shelf Expiration Date Model / Serial / Lot Stent Main Body Tmif-70-29-Zt - [id number] Implanted:Qty: 1 on 06/10/2014 by Ronal Gallegos MD at [place] [facility] Aorta [employer] 04/07/2016 [id number]-24-8 2-[id number] / / Graft Iliac Leg Spirlz [id number] - [id number] Implanted:Qty: 1 on 06/10/2014 by Ronal Gallegos MD at [facility] Right: Aorta [employer] 10/09/2015 [id number] / / [id number] Description: Graft Iliac Leg Spirlz [id number] - [id number] Implanted:Qty: 1 on 06/10/2014 by Ronal Gallegos MD at [facility] Right: Femoral Artery [employer] 11/07/2016 [id number] / / [id number] Stent Polmer 29mm P3110 - [id number] Implanted:Qty: 1 on 06/10/2014 by Ronal Gallegos MD at [facility] N/A: Aorta JNJ : [employer] ENDOVASC[employer] 07/26/2018 [id number] / / [id number] Codman Orbit Galaxy Coil 2.5mm X 3.5cm Implanted:Qty: 1 on 09/12/2015 by Arik Shin MD at [facility] Left: Head [employer]OD[employer] 02/26/2017 [id number] / [id number] / [id number] Description:COMPLEX XTRASOFT detachable coil deployed left internal carotid artery Codman Orbit Galaxy Coil 2.5mm X 2.5cm Implanted:Qty: 1 on 09/12/2015 by Arik Shin MD at [facility] Left: Head [employer] 01/27/2016 [id number] / [id number] / [id number] Description:COMPLEX XTRASOFT detachable coil deployed left internal carotid artery aneurysm Codman [place] 2 Stent 4mm X 30mm Implanted:Qty: 1 on 09/12/2015 by Arik Shin MD at [facility] Left: Head [employer]A DEPUY 03/26/2018 [id number] / [id number] / [id number] Description:Vascular reconst ruction device deployed in left internal carotid artery Codman Orbit Galaxy Coil 6mm X 20cm Implanted:Qty: 1 on 09/12/2015 by Arik Shin MD at [facility] Left: Head LENORA [employer] LENORA [facility] 09/26/2016 [id number] / [id number] / [id number] Description:COMPLEX FILL det achable coil deployed left internal carotid artery aneurysm Codman Orbit Galaxy Coil 4mm X 10cm Implanted:Qty: 1 on 09/12/2015 by Arik Shin MD at [facility] Left: Head [employer] 10/27/2015 [id number] / [id number] / [id number] Description:COMPLEX XTRASOFT detachable coil deployed left internal carotid artery aneurysm Codman Orbit Galaxy Coil 3.5mm X 9cm Implanted:Qty: 1 on 09/12/2015 by Arik Shin MD at [facility] Left: Head [employer] 12/28/2015 [id number] / [id number] / [id number] Description:COMPLEX XTRASOFT detachable coil deployed left internal carotid artery aneurysm Codman Orbit Galaxy Coil 3mm X 6cm Implanted:Qty: 1 on 09/12/2015 by Arik Shin MD at [facility] Left: Head [employer]MAN 04/28/2017 [id number] / [id number] / [id number] Description:COMPLEX XTRASOFT detachable coil deployed left internal carotid artery aneurysm Lens Intraoc 21.0 - [id number] - [id number] Implanted:Qty: 1 on 11/08/2020 by Yuri Bradley MD at [facility] Left: Eye [employer] 06/26/2025 [id number] / [id number] / [id number] Lens Intraoc 20.5 - [id number] - [id number] Implanted:Qty: 1 on 11/22/2020 by Yuri Bradley MD at [facility] Right: Eye [employer] LOMB 07/27/2025 [id number] / [id number] / [id number] Clip Quick 2.8mm 230cm - [id number] Implanted:Qty: 3 on 03/29/2021 by Luciana Fernandez MD at [facility] [employer] 08/27/2023 [id number]-[id number]. [id number] / / Sureclip 16mm 235cm - [id number] Implanted:Qty: 2 on 05/07/2022 by Luciana Fernandez MD at [facility] Colon MICRO TECH ENDOSCOPY 07/06/2024 [id number] / / Power Port 8fr Sngl Lumen Plas - [id number] Implanted:Qty: 1 on 01/30/2023 by Koko Santiago MD at OR [facility] N/A: Chest CR BARD : PERIPHERAL VASCULAR 07/27/2024 [id number] / / [id number] Power Port 8fr Sngl Lumen Plas - [id number] Implanted:Qty: 1 on 01/30/2023 by Koko Santiago MD at OR [facility] CR BARD : PERIPHERAL VASCULAR [id number] 07/27/2024 [id number] / / [id number] documented as of this encounter Visit Diagnoses [...] and were consensually agreed upon. Care Teams Beverage Distiller Relationship Specialty Start Date End Date Mauro Watson DO [address] [place] [address] PCP - General Family Medicine 04/13/19 documented as of this encounter"
--- OUTSIDE RECORDS SUMMARY | 2024-02-19 09:22 | External Medical Summary | Summary of Care ---
Author Name Unknown Organization [facility] Address [address] [place] [address] Phone [phone] Care Team Providers Care Billing Checker Name Role Phone WatsonJulienMauro Jordengordy Primary Care [...] CONTRAST Lasha Christine MD [address] [place] [address] Referral ID Status Reason Start Date Expiration Date V isits Requested Visits Authorized [id number] Authorized 01/16/2024 999 999 Reason for Visit * Reason Comments Chemotherapy Chemo/recheck Encounter Details Date Type Department Care Team (Late st Contact Info) Description 01/16/2024 8:15 AM EDT Office Visit Hematology/Oncology [facility]re[facility] [place] [address] [place] [phone] Lasha Christine MD [address] [facility] [place] [place] [address] Malignant neoplasm of left lung, unspecified part [...] Lumbar radiculopathy 05/27/2019 Atherosclerosis of [place] co ronary artery of [place] heart with angina pectoris 05/05/2019 History of colon polyps 08/12/2018 ACEI/ARB contraindicated 09/21/2016 Carotid aneurysm, left 09/13/2015 Overview: S/p coil embolization Cerebral aneurysm, nonruptured 09/05/2015 AAA (abdominal aortic aneurysm) 06/20/2015 Overview: S/p repair Bilateral carotid artery disease 06/20/2015 Medical home patient encounter 05/19/2014 Hypertriglyceridemia 05/16/2012 CORON ATHEROSCL BARROW CORON VESSEL 07/11/2010 Dyslipidemia, goal LDL below [...] 8:15 AM EDT Hematology/Oncology Outpatient Clinic note [facility] [address] [facility] [place] [address] Name: Mp Vaughn Date: 09/12/2023 CHIEF COMPLAINT: [...] the recommendation from Dr. Jose Bejarano from [facility] every 21 days x 8 cycles [...] performed by Arik Shin MD at [place] [facility] CATHETER OCCLUSION/EMBOLIZATION,PICKLE MAKER N/A 09/12/2015 TRANSCATHETER PERMANENT ARTERIAL OCCLUSION CENTRAL NERVOUS SYSTEM performed by Arik Shin MD at OR [facility] COLONOSCOPY W/ LESION REMOVAL, SNARE 09/09/2006 adenomatous polyp--repeat 5 years COLONOSCOPY, DIAGNOSTIC (RECTUM) 08/15/2012 adenomatous polyp, diverticulosis, repeat 5 yrs/COLONOSCOPY FLEXIBLE PROXIMAL DIAGNOSTIC performed by Luciana Fernandez MD at ENDOSCOPY [facility] COLONOSCOPY, DIAGNOSTIC (RECTUM) 11/23/2015 adenomatous polyps, diverticulosis, andiodysplastic lesions, repeat 5 yrs/[facility] COLONOSCOPY, DIAGNOSTIC (RECTUM) 11/28/2015 colonic ulcer, diverticulosis/inpt [facility] COLONOSCOPY, DIAGNOSTIC (RECTUM) 03/29/2021 adenomatous polyps, diverticulosis, repeat 1 yr / COLONOSCOPY FLEXIBLE PROXIMAL DIAGNOSTIC performed by Luciana Fernandez MD at ENDOSCOPY [facility] COLONOSCOPY, DIAGNOSTIC (RECTUM) 05/07/2022 benign adenomatous polyps, repeat 6 mo / COLONOSCOPY FLEXIBLE PROXIMAL DIAGNOSTIC performed by Luciana Fernandez MD at ENDOSCOPY [facility] COLONOSCOPY, DIAGNOSTIC (RECTUM) 11/02/2022 resolving ischemic colitis, repeat 9 mo / COLONOSCOPY FLEXIBLE PROXIMAL DIAGNOSTIC performed by Luciana Fernandez MD at ENDOSCOPY [facility] EGD, FLEXIBLE, DIAGNOSTIC 11/23/2015 reflux esophagitis, Schatzki ring, [facility] EGD, FLEXIBLE, DIAGNOSTIC 01/02/2023 hiatal hernia/gastritis/biopsies show mild gastritits of stomach/ESOPHAGOGASTRODUODENOSCOPY (EGD), FLEXIBLE, TRANSORAL, DIAGNOSTIC performed by Jory Sauceda DO at ENDOSCOPY [facility] EGD, W/ENDOSCOPIC US 01/02/2023 multiple metastatic lesions liver/ESOPHAGOGASTRODUODENOSCOPY (EGD), FLEXIBLE, TRANSORAL, ENDOSCOPICULTRASOUND performed by Jory Sauceda DO at ENDOSCOPY [facility] HEMORRHOIDECTOMY, INTERNAL, 2 + COLUMNS 06/28/2000 Internal x 3, Dr Gallego INJECT DX/THER SUBSTANCE INTERLAMINAR LUMBAR/SACRAL W IMAGE GUIDE 11/13/2018 INJECTION SPINE LUMBAR OR SACRAL performed by Deep León DO at OR [facility] INJECT DX/THER SUBSTANCE INTERLAMINAR LUMBAR/SACRAL W IMAGE GUIDE 11/27/2018 INJECTION SPINE LUMBAR OR SACRAL performed by Deep León, DO at OR [facility] INJECT DX/THER SUBSTANCE INTERLAMINAR LUMBAR/SACRAL W IMAGE GUIDE 04/16/2019 INJECTION SPINE LUMBAR OR SACRAL performed by Deep León, at OR [facility] INJECT DX/THER SUBSTANCE INTERLAMINAR LUMBAR/SACRAL W [...] performed by Koko Santiago MD at OR [facility] INSERT ARTERY CATHETER THRU SKIN Right [...] BRANCH performed by Arik Shin MD at [facility] [address] CATHETER IN ARTERIES N/A 09/12/2015 CATHETER PLACEMENT, BRACHIOCEPHALIC, THIRD ORDER BRANCH performed by Arik Shin MD at [facility] REMOVE CATARACT, INSERT LENS PROSTH Left 11/08/2020 left EXTRACAPSULAR CATARACT REMOVAL WITH INTRAOCULAR LENS performed by Yuri Bradley MD at OR [facility] REMOVE CATARACT, INSERT LENS PROSTH Right 11/22/2020 right EXTRACAPSULAR CATARACT REMOVAL WITH INTRAOCULAR LENS performed by Yuri Bradley MD at OR [facility] VERTEBRAL ARTERY CATHETER PLACEMENT Bilateral 08/20/2016 CATHETER PLACEMENT VERTEBRAL ARTERY, performed by Arik Shin MD at OR [facility] Social History Socioeconomic History Marital status: Spouse [...] mouth every 8 hours if needed for [id number] Tablet 2 Lidocaine-Prilocaine 2.5-2.5 % External Cream [...] Description 02/06/2024 9:00 AM EDT Laboratory Laboratory [facility] [address] [place] [phone] Diane, Lab Scenery [address] [place] [address] 02/06/2024 10:00 AM EDT Hem/Onc Treatment Hematology/Oncology Treatment, [place] [address] [facility] [place] [phone] Diane, Chair 9 Hem Onc Scenery [address] [place] [address] 02/10/2024 9:00 AM EDT Appointment Vascular Lab [place] [address] [place] [address] 02/10/2024 10:00 AM EDT Office Visit Vascular Surg [place] [address] [place] [address] Margarito Cabrera MD [facility] [place] [address] 02/13/2024 9:00 AM EDT Imaging Radiology [facility], [place] [address] [facility] [place] [address] 02/27/2024 7:40 AM EDT Laboratory Laboratory [facility] Diane [place] [address] [phone] Diane, Lab Scenery [address] [facility] [place] [address] 02/27/2024 8:15 AM EDT Office Visit Hematology/Oncology [facility] Diane [place] [address] [place] [phone] Lasha Christine MD [address] [place] [address] 02/27/2024 8:45 AM EDT Hem/Onc Treatment Hematology/Oncology Treatment, [place] [address] [place] [phone] Diane, Chair 2 Hem Onc Scenery [address] [place] [address] 04/11/2024 1:20 PM EST [facility] [address] [address] Mauro Watson, DO [address] [place] [address] 08/13/2024 11:40 AM EDT [facility] [address] [place] [address] Mauro Watson, DO [address] [place] [address] Scheduled Orders Name Type Priority Associated Diagnoses [...] this encounter Medical Devices Implanted Type Area Chief [employer] Device Identifier Shelf Expiration Date Model / Serial / Lot Stent Main Body Jwhl-59-90-[id number] - [id number] Implanted:Qty: 1 on 06/10/2014 by Ronal Gallegos MD at OR [facility] Aorta [employer] 04/07/2016 [id number]-24-8 2-[id number] / / Graft Iliac Leg Spirlz [id number] - [id number] Implanted:Qty: 1 on 06/10/2014 by Ronal Gallegos MD at OR [facility] Right: Aorta [employer] 10/09/2015 [id number] / / [id number] Description: Graft Iliac Leg Spirlz 43o17cr - [id number] Implanted:Qty: 1 on 06/10/2014 by Ronal Gallegos MD at OR [facility] Right: Femoral Artery [employer] 11/07/2016 [id number] / / [id number] Stent Polmer 29mm P3110 - [id number] Implanted:Qty: 1 on 06/10/2014 by Ronal Gallegos MD at OR [facility] N/A: Aorta JNJ : [employer] 07/26/2018 [id number] / / [id number] Codman Orbit Galaxy Coil 2.5mm X 3.5cm Implanted:Qty: 1 on 09/12/2015 by Arik Shin MD at OR [facility] Left: Head [employer]MAN 02/26/2017 [id number] / [id number] / [id number] Description:COMPLEX XTRASOFT detachable coil deployed left internal carotid artery Codman Orbit Galaxy Coil 2.5mm X 2.5cm Implanted:Qty: 1 on 09/12/2015 by Arik Shin MD at OR [facility] Left: Head [employer] 01/27/2016 [id number] / [id number] / [id number] Description:COMPLEX XTRASOFT detachable coil deployed left internal carotid artery aneurysm Codman [place] 2 Stent 4mm X 30mm Implanted:Qty: 1 on 09/12/2015 by Arik Shin MD at OR [facility] Left: Head [employer] DEPUY 03/26/2018 [id number] / [id number] / [id number] Description:Vascular reconst ruction device deployed in left internal carotid artery Codman Orbit Galaxy Coil 6mm X 20cm Implanted:Qty: 1 on 09/12/2015 by Arik Shin MD at OR [facility] Left: Head L[employer]A [employer]A [facility] 09/26/2016 [id number] / [id number] / [id number] Description:COMPLEX FILL det achable coil deployed left internal carotid artery aneurysm Codman Orbit Galaxy Coil 4mm X 10cm Implanted:Qty: 1 on 09/12/2015 by Arik Shin MD at OR [facility] Left: Head [employer] 10/27/2015 [id number] / [id number] / [id number] Description:COMPLEX XTRASOFT detachable coil deployed left internal carotid artery aneurysm Codman Orbit Galaxy Coil 3.5mm X 9cm Implanted:Qty: 1 on 09/12/2015 by Arik Shin MD at OR [facility] Left: Head [employer] 12/28/2015 [id number] / [id number] / [id number] Description:COMPLEX XTRASOFT detachable coil deployed left internal carotid artery aneurysm Codman Orbit Galaxy Coil 3mm X 6cm Implanted:Qty: 1 on 09/12/2015 by Arik Shin MD at OR [facility] Left: Head [employer] 04/28/2017 [id number] / [id number] / [id number] Description:COMPLEX XTRASOFT detachable coil deployed left internal carotid artery aneurysm Lens Intraoc 21.0 - [id number] - [id number] Implanted:Qty: 1 on 11/08/2020 by Yuri Bradley MD at OR [facility] Left: Eye [employer]OMB 06/26/2025 [id number] / [id number] / [id number] Lens Intraoc 20.5 - [id number] - [id number] Implanted:Qty: 1 on 11/22/2020 by Yuri Bradley MD at OR [facility] Right: Eye [employer] LOMB 07/27/2025 [id number] / [id number] / [id number] Clip Quick 2.8mm 230cm - [id number] Implanted:Qty: 3 on 03/29/2021 by Luciana Fernandez MD at ENDOSCOPY [facility] [employer] 08/27/2023 [id number]-202UR. A / / Sureclip 16mm 235cm - [id number] Implanted:Qty: 2 on 05/07/2022 by Luciana Fernandez MD at ENDOSCOPY [facility] Colon MICRO TECH ENDOSCOPY 07/06/2024 [id number] / / Power Port 8fr Sngl Lumen Plas - [id number] Implanted:Qty: 1 on 01/30/2023 by Koko Santiago MD at OR [facility] N/A: Chest CR BARD : PERIPHERAL VASCULAR 07/27/2024 [id number] / / [id number] Power Port 8fr Sngl Lumen Plas - [id number] Implanted:Qty: 1 on 01/30/2023 by Koko Santiago MD at OR [facility] CR BARD : PERIPHERAL VASCULAR [id number] 07/27/2024 [id number] / / [id number] documented as of this encounter Visit Diagnoses [...] and were consensually agreed upon. Care Teams Billing Checker Relationship Specialty Start Date End Date Mauro Watson DO [address] [place] [address] PCP - General Family Medicine 04/13/19 documented as of this encounter"
--- OUTSIDE RECORDS SUMMARY | 2024-02-19 09:23 | External Medical Summary | Summary of Care ---
Author Name Unknown Organization [facility] Address [address] [place] [address] Phone [phone] Care Team Providers Care Skilled Nursing Facilities Professional Name Role Phone Mauro Watson DO Primary Care Provider Reason for Visit * Reason Comments Chemotherapy C6 Alimta * Episode Based Medications (Routine) - Authorized Specialty Diagnoses / Procedures Referred By Contac t Referred To Contact Diagnoses Encounter for antineoplastic chemotherapy 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) Malignant neoplasm of left lung, unspecified part of lung (HCC) Procedures GA INJ. PEMETREXED NOS 10MG GA CARBOPLATIN INJECTION GA FOSAPREPITANT INJECTION Lasha Christine MD [address] [facility] [place] [address] Anc Hem/Onc [address] [address] Referral ID Status Reason Start Date Expiration Date V isits Requested Visits Authorized [id number] Authorized 08/22/2023 04/28/2099 [id number] Encounter Details Date Type Department Care Team (Latest Contact Info) Description 12/05/2023 11:00 AM EDT Hem/Onc Treatment Hematology/Oncolog y Treatment, [address] [phone] Diane Chair 9 Hem Onc [address] [place] [address] Encounter for antineoplastic chemotherapy*; 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); Malignant neoplasm of left lung, unspecified part of lung (HCC) Allergies Active Allergy Reactions Criticality Noted Date Comments Aspirin Bleeding High 11/26/2011 Significant hemorroidal bleed on aspirin,high doses Duloxetine Hcl Hypertension 01/26/2020 documented as of this encounter (statuses as of 01/05/2024) Medications Medication Sig Dispensed Refills Start Date [...] 02/18/2023 Prochlorperazine Maleate 10 MG Oral Tablet (Compazine)Indicat [...] the chemotherapy. 36 Tablet 1 11/21/2023 Active Prochlorperazine Maleate 10 MG Oral Tablet (Compazine)Indicat ions: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),Cholangiocar cinoma (HCC) Take 1 Tablet by mouth every 6 hours as needed for Nausea. 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 01/21/2023 Encounter for antineoplastic chemotherapy 2022 Medical marijuana use 08/26/2021 CKD (chronic kidney disease), stage II 2 Overview: EGFR 72 Lumbar radiculopathy 05/27/2019 Atherosclerosis of [place] co ronary artery of [place] heart with angina pectoris 05/05/2019 History of colon polyps 08/12/2018 ACEI/ARB contraindicated 09/21/2016 Carotid aneurysm, left 09/13/2015 Overview: S/p coil embolization Cerebral aneurysm, nonruptured 09/05/2015 AAA (abdominal aortic aneurysm) 06/20/2015 Overview: S/p repair Bilateral carotid artery disease 06/20/2015 Medical home patient encounter 05/19/2014 Hypertriglyceridemia 05/16/2012 CORON ATHEROSCL ALATNA CORON VESSEL 07/11/2010 Dyslipidemia, goal LDL below [...] as of this encounter (statuses as of 01/05/2024) Resolved Problems Problem Noted Date Diagnosed Date [...] as of this encounter (statuses as of 01/05/2024) Immunizations Name Administration Dates Next Due COVID-19 mRNA, LNP-s, No Pre serve, 2-Dose Series (Moderna) 12/13/2020,07/02/2020,06/04/2020 COVID-19, mRNA, LNP-s, PF, B ooster, 100mcg/0.5mg (Moderna) 05/11/2021 Covid-19, Mrna, Lnp-s, Pf, B ivalent, 50 Mcg, IM, 12 yrs and above (Moderna) 02/06/2022 Pneumococcal Conjugate Vacc, 13 Valent (Prevnar) 02/04/2017 Pneumococcal Polysaccharide PPV23 (Pneumovax) 02/17/2018,12/21/2011 Seasonal Influenza, PF, 6 M & above, [...] Sign Reading Time Taken Comments Blood Pressure 137/81 12/05/2023 10:36 AM EDT Pulse 88 12/05/2023 10:36 AM EDT Temperature - - Respiratory Rate - - Oxygen Saturation 97% 12/05/2023 10:36 AM EDT Inhaled Oxygen Concentration - - Weight - - Height - - Body Mass Index - - documented in [...] as of this encounter Nursing Notes * Aye Suarez RN - 12/05/2023 1:38 PM EDT Chair 1 Pt here for C6 Alimta. Seen today by Dr. Christine. See office visit note. When ambulating into treatment room, patient reported that legs abruptly became weak and he felt like his head was in a fog. Pt stood at counter momentarily and then assisted to seat by [employer]. VS taken when he was in seat. Dr. Christine in room and witnessed. Pt reports this has been happening on occasion over the past month and he has notified his other providers that this has been happening. Labs reviewed with Dr. Christine and instructed to hold carboplatin today d/t lower platelets and hgb. Premeds changed to zofran PO. Pt informed of change to treatment plan. Chemotherapy/Immunotherapy agents: ALIMTA Consent for chemotherapy drug treatment complete, dated, and signed? yes, date - 08/22/23 Treatment lab parameters met? No, plt 98 - Carboplatin on hold today Has treatment weight changed > than 10%? No Treatment preauthorized? Yes VITALS Filed Vitals: 12/05/23 1036 BP: 137/81 Pulse: 88 SpO2: 97% Urine protein: N/A Patient education completed for [...] are available. Provide and maintain safe environment. Goals: Patient will remain free from injury. Possible barriers to meeting goals: ambulation with IV pole Stability of the patient: Moderately stable - low risk of patient condition declining or worsening Summary regarding today's goals: Met: patient without injury during treatment today. Pt tolerated infusion well. Post-hydration administered. No complaints. Discharged in stable condition. documented in this encounter Plan of Treatment Upcoming Encounters Date Type Department Care Team (Late st Contact Info) Description 01/16/2024 7:40 AM EDT Laboratory Laboratory [facility] [place] [address] [facility] [place] [phone] [place], Lab [facility] [address] [facility] [place] [address] 01/16/2024 8:15 AM EDT Office Visit Hematology/Oncology [facility] [place] [address] [facility] [place] [phone] Lasha Christine MD [address] [facility] [place] [address] 01/16/2024 8:45 AM EDT Hem/Onc Treatment Hematology/Oncology Treatment, [place] [address] [facility] [place] [phone] Diane, Chair 7 Hem Onc Sc[address] [place] [address] 02/10/2024 9:00 AM EDT Appointment Vascular Lab [address] [address] 02/10/2024 10:00 AM EDT Office Visit Vascular Surg [place] [address] [place] [address] Margarito Cabrera MD [facility] [place] [address] 02/13/2024 9:00 AM EDT Imaging Radiology [facility] [address] [place] [address] 04/11/2024 1:20 PM EST [facility] [place] [address] Mauro Watson, DO [address] [facility] [place] [address] 08/13/2024 11:40 AM EDT [facility] [address] [place] [address] Mauro Watson, [address] [facility] [place] [address] Scheduled Procedures Name Priority Associated Diagnoses Date/Ti [...] 2023 02/06/2022, 05/11/2021, 12/13/2020, Additional history exists Influenza Vaccine (FLU shot) (#1) 2023 01/02/2023, 02/21/2022, 02/21/2022, Additional history exists GFR 12/25/2024 12/26/2023, 08/0 11/2023, 11/14/2023, Additional history exists Albumin/Creatinine Ratio 05/17/2025 05/17/2022, / DTap/Tdap Vaccines (3 - Td or Tdap) 01/12/2030 01/13/2020, 06/08/2019, 09/30/2008 Pneumococcal Vaccine: 65+ Years Completed 02/17/2018, 02/04/2017, 12/21/2011 Zoster Vaccines Completed 02/17/2019, 08/29/2017 RETIRED - COLONOSCOPY-ANNUAL AGES 18-100 Discontinued 11/02/2022, 11/02/2022, 05/07/2022, Additional history exists RETIRED - COLONOSCOPY-EVERY 5 YRS AGES 18-100 Discontinued 11/02/2022, 11/02/2022, 05/07/2022, Additional history exists HPV (Gardasil) Vaccine Aged Out No lo nger eligible based on patient's age to complete this topic Hepatitis B Vaccine Aged Out No longe r eligible based on patient's age to complete this topic MENINGOCOCCAL (MENACTRA/MENVEO) Aged Out No longer eligible based on patient's age to complete this topic documented as of this encounter Medical Devices Implanted Type Area Tester Printed Circuit Boards Device Identifier Shelf Expiration Date Model / Serial / Lot Stent Main Body [id number]-[id number] - [id number] Implanted:Qty: 1 on 06/10/2014 by Ronal Gallegos MD at [facility] [place] Aorta [employer] 04/07/2016 [id number] / / Graft Iliac Leg Spirlz [id number] - [id number] Implanted:Qty: 1 on 06/10/2014 by Ronal Gallegos MD at [facility] [place] Right: Aorta [employer] 10/09/2015 [id number] / / [id number] Description: Graft Iliac Leg Spirlz 83m30us - [id number] Implanted:Qty: 1 on 06/10/2014 by Ronal Gallegos MD at [facility] [place] Right: Femoral Artery [employer] 11/07/2016 [id number] / / [id number] Stent Polmer 29mm P3110 - [id number] Implanted:Qty: 1 on 06/10/2014 by Ronal Gallegos MD at [facility] [place] N/A: Aorta JNJ : [employer] 07/26/2018 [id number] / / [id number] Codman Orbit Galaxy Coil 2.5mm X 3.5cm Implanted:Qty: 1 on 09/12/2015 by Arik Shin MD at [facility] [place] Left: Head [facility] [facility] 02/26/2017 [id number] / [id number] / [id number] Description:COMPLEX XTRASOFT detachable coil deployed left internal carotid artery Codman Orbit Galaxy Coil 2.5mm X 2.5cm Implanted:Qty: 1 on 09/12/2015 by Arik Shin MD at [facility] [place] Left: Head [employer] [facility] 01/27/2016 [id number] / [id number] / [id number] Description:COMPLEX XTRASOFT detachable coil deployed left internal carotid artery aneurysm Codman [place] 2 Stent 4mm X 30mm Implanted:Qty: 1 on 09/12/2015 by Arik Shin MD at [facility] [place] Left: Head [employer] 03/26/2018 [id number] / [id number] / [id number] Description:Vascular reconst ruction device deployed in left internal carotid artery Codman Orbit Galaxy Coil 6mm X 20cm Implanted:Qty: 1 on 09/12/2015 by rAik Shin MD at [facility] [place] Left: Head [facility] 09/26/2016 [id number] / [id number] / [id number] Description:COMPLEX FILL det achable coil deployed left internal carotid artery aneurysm Codman Orbit Galaxy Coil 4mm X 10cm Implanted:Qty: 1 on 09/12/2015 by Arik Shin MD at [facility] [place] Left: Head [employer] 10/27/2015 [id number] / [id number] / [id number] Description:COMPLEX XTRASOFT detachable coil deployed left internal carotid artery aneurysm Codman Orbit Galaxy Coil 3.5mm X 9cm Implanted:Qty: 1 on 09/12/2015 by Arik Shin MD at [facility] Left: Head [employer] 12/28/2015 [id number] / [id number] / [id number] Description:COMPLEX XTRASOFT detachable coil deployed left internal carotid artery aneurysm Codman Orbit Galaxy Coil 3mm X 6cm Implanted:Qty: 1 on 09/12/2015 by Arik Shin MD at [facility] [place] Left: Head [employer] 04/28/2017 [id number] / [id number] / [id number] Description:COMPLEX XTRASOFT detachable coil deployed left internal carotid artery aneurysm Lens Intraoc 21.0 - [id number] - [id number] Implanted:Qty: 1 on 11/08/2020 by Yuri Bradley MD at [facility] Left: Eye [employer] 06/26/2025 [id number] / [id number] / [id number] Lens Intraoc 20.5 - [id number] - [id number] Implanted:Qty: 1 on 11/22/2020 by Yuri Bradley MD at [facility] Right: Eye [employer] LOMB 07/27/2025 [id number] / [id number] / [id number] Clip Quick 2.8mm 230cm - [id number] Implanted:Qty: 3 on 03/29/2021 by Luciana Fernandez MD at [facility] [employer] 08/27/2023 [id number] / / Sureclip 16mm 235cm - [id number] Implanted:Qty: 2 on 05/07/2022 by Luciana Fernandez MD at [facility] Colon MICRO TECH ENDOSCOPY 07/06/2024 [id number] / / Power Port 8fr Sngl Lumen Plas - [id number] Implanted:Qty: 1 on 01/30/2023 by Koko Santiago MD at [facility] N/A: Chest CR BARD : PERIPHERAL VASCULAR 07/27/2024 [id number] / / [id number] Power Port 8fr Sngl Lumen Plas - [id number] Implanted:Qty: 1 on 01/30/2023 by Koko Santiago MD at [facility] CR BARD : PERIPHERAL VASCULAR [id number] 07/27/2024 [id number] / / [id number] documented as of this encounter Visit Diagnoses Diagnosis Encounter for antineoplastic chemotherapy- Primary 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) Malignant neoplasm of left lung, unspecified part of lung (HCC) documented in this encounter Administered Medications Inactive Administered Medications - up to 3 most recent administrations Medication Order MAR Action Action Date Dose Rate Site hEParin 100 UNIT/ML Lock Flush inj 500 Units 500 Units (5 mL), IV Lock, PRN Other, IV Flush, Starting on Lizz 12/05/23 at 1048, Until Lizz 12/05/23 at 1903, For 24 hours, Do not flush if lock, PICC, or central line not in place; IV infusing or unable to flush. Given 12/05/2023 2:17 PM EDT 500 Units NSS infusion FOR HYDRATION Intravenous, at 500 mL/hr Administer over 2 Hours, ONCE, 1 dose, On Lizz 12/05/23 at 1130 Start Infusion 12/05/2023 12:08 PM EDT 1,000 mL 500 mL/hr NSS infusion Intravenous, at 50 mL/hr, PRN, Starting on Lizz 12/05/23 at 1200, Until Lizz 12/05/23 at 1903, Maintenance line Start Infusion 12/05/2023 11:47 AM EDT 50 mL/hr ondansetron (Zofran) tab 8 mg 8 mg, Oral, ONCE, On Lizz 12/05/23 at 1215, For 1 dose Given 12/05/2023 11:44 AM EDT 8 mg PEMEtrexed Disodium (Alimta) 900 mg in NSS 100 mL infusion 900 mg (rounded from 925 mg = 500 mg/m2 1.85 m2 Treatment Plan BSA from Recorded weight), IV Piggyback, ONCE, 1 dose, On Lizz 12/05/23 at 1230, Administer over 10 Minutes Start Infusion 12/05/2023 11:56 AM EDT 900 mg 630 mL/hr sodium chloride 0.9 % flush central line 10 mL 10 mL, IV Push, PRN Other, IV Flush, Starting on Lizz 12/05/23 at 1048, Until Lizz 12/05/23 at 1903, For 24 hours, Do not flush if lock, PICC, or central line not in place; IV infusing or unable to flush. Given 12/05/2023 2:16 PM EDT 10 mL vitamin b-12 (Cyanocobalamin) inj 1,000 mcg 1,000 mcg, Intramuscular, ONCE, On Lizz 12/05/23 at 1130, For 1 dose Given 12/05/2023 11:52 AM EDT 1,000 mcg Deltoid Right Upper documented in this encounter Advance Directives [...] and were consensually agreed upon. Care Teams Skilled Nursing Facilities Professional Relationship Specialty Start Date End Date Mauro Watson DO [address] [place] [address] PCP - General Family Medicine 04/13/19 documented as of this encounter
--- OUTSIDE RECORDS SUMMARY | 2024-02-19 09:23 | External Medical Summary | Summary of Care ---
Author Name Unknown Organization [facility] Address [address] [place] [address] Phone [phone] Care Team Providers Care Policy Writer Name Role Phone Mauro Watson DO Primary Care Provider Reason for Visit * Reason Comments Chemotherapy C7 D1 Alimta only. * Episode Based Medications (Routine) - Authorized Specialty Diagnoses / Procedures Referred By Contac t Referred To Contact Diagnoses Encounter for antineoplastic chemotherapy 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) Malignant neoplasm of left lung, unspecified part of lung (HCC) Procedures RI INJ. PEMETREXED NOS 10MG RI CARBOPLATIN INJECTION RI FOSAPREPITANT INJECTION Lasha Christine MD [address] [facility] [place] [address] Anc Hem/Onc [address] [address] Referral ID Status Reason Start Date Expiration Date V isits Requested Visits Authorized [id number] Authorized 08/22/2023 04/28/2099 999 99 Encounter Details Date Type Department Care Team (Latest Contact Info) Description 12/26/2023 9:30 AM EDT Hem/Onc Treatment Hematology/Oncolog y Treatment, [address] [address] Diane Chair 1 Hem Onc [address] [place] [address] Encounter for antineoplastic chemotherapy*; 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); Malignant neoplasm of left lung, unspecified part of lung (HCC) Allergies Active Allergy Reactions Criticality Noted Date Comments Aspirin Bleeding High 11/26/2011 Significant hemorroidal bleed on aspirin,high doses Duloxetine Hcl Hypertension 01/26/2020 documented as of this encounter (statuses as of 01/03/2024) Medications Medication Sig Dispensed Refills Start Date [...] as of this encounter (statuses as of 01/03/2024) Active Problems Problem Noted Date Diagnosed Date Malignant neoplasm of left lung 08/23/2023 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 01/21/2023 Encounter for antineoplastic chemotherapy 2022 Medical marijuana use 08/26/2021 CKD (chronic kidney disease), stage II Overview: EGFR 72 Lumbar radiculopathy 05/27/2019 Atherosclerosis of [place] co ronary artery of [place] heart with angina pectoris 05/05/2019 History of colon polyps 08/12/2018 ACEI/ARB contraindicated 09/21/2016 Carotid aneurysm, left 09/13/2015 Overview: S/p coil embolization Cerebral aneurysm, nonruptured 09/05/2015 AAA (abdominal aortic aneurysm) 06/20/2015 Overview: S/p repair Bilateral carotid artery disease 06/20/2015 Medical home patient encounter 05/19/2014 Hypertriglyceridemia 05/16/2012 CORON ATHEROSCL [place] CORON VESSEL 07/11/2010 Dyslipidemia, goal LDL below [...] as of this encounter (statuses as of 01/03/2024) Resolved Problems Problem Noted Date Diagnosed Date [...] as of this encounter (statuses as of 01/03/2024) Immunizations Name Administration Dates Next Due COVID-19 [...] Sign Reading Time Taken Comments Blood Pressure 110/74 12/26/2023 10:54 AM EDT Pulse 85 12/26/2023 10:54 AM EDT Temperature 36.3 C (97.3 F) 12/26/2023 10:54 AM E DT Respiratory Rate - - Oxygen Saturation 97% 12/26/2023 10:54 AM EDT Inhaled Oxygen Concentration - - [...] as of this encounter Nursing Notes * Anabel Altamirano RN - 12/26/2023 1:47 PM EDT Goals: Patient will remain free from injury. Possible barriers to meeting goals: ambulation with IV pole. Stability of the patient: Moderately stable - low risk of patient condition declining or worsening Summary regarding today's goals: Met: Patient remained free from injury. Pt tolerated treatment + 1L NS without complaints. Discharged in stable condition. * Anabel Altamirano RN - 12/26/2023 10:57 AM EDT Chair 11 Pt reports recent covid infection, fatigue, but appetite good now. Stable neuropathy as previously reported. Chemotherapy/Immunotherapy agents: ALIMTA Consent for chemotherapy drug treatment complete, dated, and signed? yes, date - 08/22/23 Treatment lab parameters met? Yes LFTs reviewed with Dr. Christine; ok for treatment. Has treatment weight changed > than 10%? No Treatment preauthorized? Yes VITALS Filed Vitals: 12/26/23 1054 BP: 110/74 Pulse: 85 Temp: 36.3 C (97.3 F) TempSrc: Tympanic SpO2: 97% Urine protein: N/A Patient education [...] symptoms or adverse side effects during treatment. Safety and Risk for Injury Patient will remain free from injury. Ensure appropriate safety devices are available. Provide and maintain safe environment. PRE-TREATMENT ASSESSMENT: NEURO: numbness or tingling: feet, fingers as previously reported; chemo-related neuropathy and fatigue:ptreports fatigue post recent covid infection; improving but still present/worse than baseline. CV/RESP: denies symptoms GI/: denies symptoms OTHER: denies any additional symptoms PAIN: 0 Patient Education: Patient instructed on use of heat and massage functions where applicable. Patient shown how to operate the heat function of the chair and to alert nursing staff if the chair feels too warm. Patient instructed on the risk of potential olivier while using the heat function. documented in this encounter Plan of Treatment Upcoming Encounters Date Type Department Care Team (Late st Contact Info) Description 01/16/2024 7:40 AM EDT Laboratory Laboratory State Radha Rosado [address] [place] [phone] [place] [address] 01/16/2024 8:15 AM EDT Office Visit Hematology/Oncology [facility] [address] [place] [address] Lasha Christine MD [address] [place], [place] [address] 01/16/2024 8:45 AM EDT Hem/Onc Treatment Hematology/Oncology Treatment, [place] [address] [place], [place] [phone] Park, Chair 7 Hem Onc Scenery [address] [facility] [address] 02/10/2024 9:00 AM EDT Appointment Vascular Lab [place] [address] [place] [address] 02/10/2024 10:00 AM EDT Office Visit Vascular Surg [place] [address] [place] [address] Margarito Cabrera MD [address] [place] [address] 02/13/2024 9:00 AM EDT Imaging Radiology [facility] [address] [place] [address] 04/11/2024 1:20 PM EST Office Visit [facility] [address] [address] Mauro Watson, [address] [address] 08/13/2024 11:40 AM EDT Office Visit [facility] [address] [address] Mauro Watson, [address] [address] Scheduled Procedures Name Priority Associated Diagnoses Date/Ti [...] this encounter Medical Devices Implanted Type Area Stone Carriage Operator Device Identifier Shelf Expiration Date Model / Serial / Lot Stent Main Body Eucp-69-95-Zt - [id number] Implanted:Qty: 1 on 06/10/2014 by Ronal Gallegos MD at OR [facility] Aorta [employer] 04/07/2016 TFFB-24-8 2-ZT / / Graft Iliac Leg Spirlz 31u36ci - [id number] Implanted:Qty: 1 on 06/10/2014 by Ronal Gallegos MD at OR [facility] Right: Aorta [employer] 10/09/2015 [id number] / / [id number] Description: Graft Iliac Leg Spirlz 39q28gw - [id number] Implanted:Qty: 1 on 06/10/2014 by Ronal Gallegos MD at OR [facility] [place] [facility] Right: Femoral Artery [employer] 11/07/2016 [id number] / / [id number] Stent Polmer 29mm P3110 - [id number] Implanted:Qty: 1 on 06/10/2014 by Ronal Gallegos MD at OR [facility] N/A: Aorta JNJ : CORDIS ENDOVASCULAR 07/26/2018 [id number] / / [id number] Codman Orbit Galaxy Coil 2.5mm X 3.5cm Implanted:Qty: 1 on 09/12/2015 by Arik Shin MD at OR [facility] [place] Left: Head LENORA & LENORA CODMAN 02/26/2017 [id number] / [id number] / [id number] Description:COMPLEX XTRASOFT detachable coil deployed left internal carotid artery Codman Orbit Galaxy Coil 2.5mm X 2.5cm Implanted:Qty: 1 on 09/12/2015 by Arik Shin MD at OR [facility] Left: Head LENORA & LENORA CODMAN 01/27/2016 [id number] / [id number] / [id number] Description:COMPLEX XTRASOFT detachable coil deployed left internal carotid artery aneurysm Codman [place] 2 Stent 4mm X 30mm Implanted:Qty: 1 on 09/12/2015 by Arik Shin MD at OR [facility] Left: Head LENORA & LENORA DEPUY 03/26/2018 [id number] / [id number] / [id number] Description:Vascular reconst ruction device deployed in left internal carotid artery Codman Orbit Galaxy Coil 6mm X 20cm Implanted:Qty: 1 on 09/12/2015 by Arik Shin MD at OR [facility] [place] Left: Head LENORA & LENORA CODMAN 09/26/2016 [id number] / [id number] / [id number] Description:COMPLEX FILL det achable coil deployed left internal carotid artery aneurysm Codman Orbit Galaxy Coil 4mm X 10cm Implanted:Qty: 1 on 09/12/2015 by Arik Shin MD at OR [facility] [place] Left: Head LENORA & LENORA CODMAN 10/27/2015 [id number] / [id number] / [id number] Description:COMPLEX XTRASOFT detachable coil deployed left internal carotid artery aneurysm Codman Orbit Galaxy Coil 3.5mm X 9cm Implanted:Qty: 1 on 09/12/2015 by Arik Shin MD at OR [facility] [place] Left: Head LENORA & LENORA CODMAN 12/28/2015 [id number] / [id number] / [id number] Description:COMPLEX XTRASOFT detachable coil deployed left internal carotid artery aneurysm Codman Orbit Galaxy Coil 3mm X 6cm Implanted:Qty: 1 on 09/12/2015 by Arik Shin MD at OR [facility] [place] Left: Head LENORA & LENORA CODMAN 04/28/2017 [id number] / [id number] / [id number] Description:COMPLEX XTRASOFT detachable coil deployed left internal carotid artery aneurysm Lens Intraoc 21.0 - [id number] - [id number] Implanted:Qty: 1 on 11/08/2020 by Yuri Bradley MD at OR [facility] Left: Eye BAUSCH & LOMB 06/26/2025 [id number] / [id number] / [id number] Lens Intraoc 20.5 - [id number] - [id number] Implanted:Qty: 1 on 11/22/2020 by Yuri Bradley MD at OR [facility] Right: Eye BAUSCH & LOMB 07/27/2025 [id number] / [id number] / [id number] Clip Quick 2.8mm 230cm - [id number] Implanted:Qty: 3 on 03/29/2021 by Luciana Fernandez MD at ENDOSCOPY [facility] [employer] 08/27/2023 HX-202UR. A / / Sureclip 16mm 235cm - [id number] Implanted:Qty: 2 on 05/07/2022 by Luciana Fernandez MD at ENDOSCOPY [facility] Colon MICRO TECH ENDOSCOPY 07/06/2024 [id number] / / Power Port 8fr Sngl Lumen Plas - [id number] Implanted:Qty: 1 on 01/30/2023 by Koko Santiago MD at OR [facility] N/A: Chest CR BARD : PERIPHERAL VASCULAR 07/27/2024 [id number] / / [id number] Power Port 8fr Sngl Lumen Plas - [id number] Implanted:Qty: 1 on 01/30/2023 by Koko Santiago MD at OR [facility] CR BARD : PERIPHERAL VASCULAR [id number] 07/27/2024 [id number] / / [id number] documented as of this encounter Visit Diagnoses [...] PRN Other, IV Flush, Starting on Lizz 12/26/23 at 1006, Until Lizz 12/26/23 at 1803, For 24 hours, Do not flush if lock, PICC, or central line not in place; IV infusing or unable to flush. Given 12/26/2023 12:47 PM EDT 500 Units NSS infusion FOR HYDRATION Intravenous, at 500 mL/hr Administer over 2 Hours, ONCE PRN, 1 dose, Starting on Lizz 12/26/23 at 1006, Until Lizz 12/26/23 at 1236 Start Infusion 12/26/2023 10:39 AM EDT 1,000 mL 500 mL/hr NSS infusion Intravenous, at 50 mL/hr, PRN, Starting on Lizz 12/26/23 at 1115, Until Lizz 12/26/23 at 1803, Maintenance line Start Infusion 12/26/2023 10:42 AM EDT 50 mL/hr ondansetron (Zofran) tab 8 mg 8 mg, Oral, ONCE, On Lizz 12/26/23 at 1045, For 1 dose Given 12/26/2023 10:34 AM EDT 8 mg PEMEtrexed Disodium (Alimta) 900 mg in NSS 100 mL infusion 900 mg (rounded from 925 mg = 500 mg/m2 1.85 m2 Treatment Plan BSA from Recorded weight), IV Piggyback, ONCE, 1 dose, On Lizz 12/26/23 at 1100, Administer over 10 Minutes Start Infusion 12/26/2023 11:34 AM EDT 900 mg 630 mL/hr sodium chloride 0.9 % flush central line 10 mL 10 mL, IV Push, PRN Other, IV Flush, Starting on Lizz 12/26/23 at 1006, Until Lizz 12/26/23 at 1803, For 24 hours, Do not flush if lock, PICC, or central line not in place; IV infusing or unable to flush. Given 12/26/2023 12:46 PM EDT 20 mL documented in this encounter Advance Directives [...] and were consensually agreed upon. Care Teams Policy Writer Relationship Specialty Start Date End Date Mauro Watson DO [address] [address] PCP - General Family Medicine 04/13/19 documented as of this encounter
--- OUTSIDE RECORDS SUMMARY | 2024-02-19 09:23 | External Medical Summary ---
Author Name Unknown Address Unknown Organization K01:[facility] - [address] [place] [address] Laboratory Report Ordering Provider Test Date Status ANN KLEIN 01/16/2024 07:52:00 Final Observation Date Value Abnormality Reference (Units ) Status CEA 01/16/2024 07:52:00 25242.0 Above high normal <= 5.2 (ng/mL) Final Performing Location [facility] - [address] [place] [address]
--- OUTSIDE RECORDS SUMMARY | 2024-02-19 09:23 | External Medical Summary | Summary of Care ---
Author Name Unknown Organization [facility] Address [address] [place] [address] Phone [phone] Care Team Providers Care Land Law Examiner Name Role Phone Mauro Watson DO Primary Care Provider Reason for Visit * Reason Comments Chemotherapy C7 D1 Alimta only. * Episode Based Medications (Routine) - Authorized Specialty Diagnoses / Procedures Referred By Contac t Referred To Contact Diagnoses Encounter for antineoplastic chemotherapy 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) Malignant neoplasm of left lung, unspecified part of lung (HCC) Procedures [place] INJ. PEMETREXED NOS 10MG WI CARBOPLATIN INJECTION WI FOSAPREPITANT INJECTION Lasha Christine MD [address] [place] [address] Anc Hem/Onc [address] [address] Referral ID Status Reason Start Date Expiration Date V isits Requested Visits Authorized [id number] Authorized 08/22/2023 04/28/2099 999 99 Encounter Details Date Type Department Care Team (Latest Contact Info) Description 12/26/2023 9:30 AM EDT Hem/Onc Treatment Hematology/Oncolog y Treatment, [address] [address] Diane Chair 1 Hem On[address] [place] [address] Encounter for antineoplastic chemotherapy*; Metastatic carcinoma involving [...] EGFR 72 Lumbar radiculopathy 05/27/2019 Atherosclerosis of [place] co ronary artery of [place] heart with angina pectoris 05/05/2019 History of colon polyps 08/12/2018 ACEI/ARB contraindicated 09/21/2016 Carotid aneurysm, left 09/13/2015 Overview: S/p coil embolization Cerebral aneurysm, nonruptured 09/05/2015 AAA (abdominal aortic aneurysm) 06/20/2015 Overview: S/p repair Bilateral carotid artery disease 06/20/2015 Medical home patient encounter 05/19/2014 Hypertriglyceridemia 05/16/2012 CORON ATHEROSCL [place] CORON VESSEL 07/11/2010 Dyslipidemia, goal LDL [...] parameters met? Yes LFTs reviewed with Dr. Christien; ok for treatment. Has treatment weight changed [...] State Radha Rosado [address] [place] [address] [place] [address] 01/16/2024 8:15 AM EDT Office Visit Hematology/Oncology [facility] Rosado [address] [place] [address] Lasha Christine MD [address] [place], [place] [address] 01/16/2024 8:45 AM EDT Hem/Onc Treatment Hematology/Oncology Treatment, [place] [address] [place], [place] [phone] Park, Chair 7 Hem Onc Scenery [address] [facility] [address] 02/10/2024 9:00 AM EDT Appointment Vascular Lab [place] [address] [place] [address] 02/10/2024 10:00 AM EDT Office Visit Vascular Surg [place] [address] [place] [address] Margarito Cabrera MD [address] [place] [address] 02/13/2024 9:00 AM EDT Imaging Radiology [facility] [address] [place] [address] 04/11/2024 1:20 PM EST Office Visit [facility] [address] [address] Mauro Watson, [address] [address] 08/13/2024 11:40 AM EDT Office Visit [facility] [address] [address] Mauro [place], [address] [address] Scheduled Procedures Name Priority Associated Diagnoses Date/Ti [...] this encounter Medical Devices Implanted Type Area Operations Lead Device Identifier Shelf Expiration Date Model / Serial / Lot Stent Main Body Umbl-99-20-Zt - [id number] Implanted:Qty: 1 on 06/10/2014 [place] Ronal [place] [facility] [place] Aorta [employer] 04/07/2016 TFFB-24-8 2-ZT / / Graft Iliac Leg Spirlz 01j58wd - [id number] Implanted:Qty: 1 on 06/10/2014 by Ronal Gallegos [place] [facility] [place] Right: Aorta [employer] 10/09/2015 [id number] / / [id number] Description: Graft Iliac Leg Spirlz 37b16dm - [id number] Implanted:Qty: 1 on 06/10/2014 by Ronal Gallegos [place] [facility] [place]: Femoral Artery [employer] 11/07/2016 [id number] / / [id number] Stent Polmer 29mm P3110 - [id number] Implanted:Qty: 1 on 06/10/2014 by Ronal Gal[place] [facility] [place]/A: Aorta JNJ : CORDIS ENDOVASCULAR 07/26/2018 P3110 / / [id number] Codman Orbit Galaxy Coil 2.5mm X 3.5cm Implanted:Qty: 1 on 09/12/2015 by Arik Shin MD [place] [facility] [place]: Head LENORA [employer] LENORA CODMAN 02/26/2017 [id number] / [id number] / [id number] Description:COMPLEX XTRASOFT detachable coil deployed left internal carotid artery Codman Orbit Galaxy Coil 2.5mm X 2.5cm Implanted:Qty: 1 on 09/12/2015 by Arik Shin [place] [facility] [place]: Head LENORA [employer] LENORA CODMAN 01/27/2016 [id number] / [id number] / [id number] Description:COMPLEX XTRASOFT detachable coil deployed left internal carotid artery aneurysm Codman [place] 2 Stent 4mm X 30mm Implanted:Qty: 1 on 09/12/2015 by Arik Shin MD [place] [facility] [place]: Head LENORA [employer] LENORA DEPUY 03/26/2018 [id number] / [id number] / [id number] Description:Vascular reconst ruction device deployed in left internal carotid artery Codman Orbit Galaxy Coil 6mm X 20cm Implanted:Qty: 1 on 09/12/2015 by Arik Shin MD [place] [facility] [place]: Head L[employer]A [employer] LENORA CODMAN 09/26/2016 [id number] / [id number] / [id number] Description:COMPLEX FILL det achable coil deployed left internal carotid artery aneurysm Codman Orbit Galaxy Coil 4mm X 10cm Implanted:Qty: 1 on 09/12/2015 by Arik Shin [place] [facility] [place]: Head LENORA [employer] LENORA CODMAN 10/27/2015 [id number] / [id number] / [id number] Description:COMPLEX XTRASOFT detachable coil deployed left internal carotid artery aneurysm Codman Orbit Galaxy Coil 3.5mm X 9cm Implanted:Qty: 1 on 09/12/2015 by Arik Shin MD [place] [facility] [place]: Head LENORA [employer] LENORA CODMAN 12/28/2015 [id number] / [id number] / [id number] Description:COMPLEX XTRASOFT detachable coil deployed left internal carotid artery aneurysm Codman Orbit Galaxy Coil 3mm X 6cm Implanted:Qty: 1 on 09/12/2015 by Arik Shin [place] [facility] [place] Left: Head LENORA & LENORA CODMAN 04/28/2017 [id number] / [id number] / [id number] Description:COMPLEX XTRASOFT detachable coil deployed left internal carotid artery aneurysm Lens Intraoc 21.0 - [id number] - [id number] Implanted:Qty: 1 on 11/08/2020 by Yuri Bradley MD at OR [facility] Left: Eye BAUSCH [employer] LOMB 06/26/2025 [id number] / [id number] / [id number] Lens Intraoc 20.5 - [id number] - [id number] Implanted:Qty: 1 on 11/22/2020 by Yuri Bradley MD at OR [facility] Right: Eye BAUSCH & LOMB 07/27/2025 [id number] / [id number] / [id number] Clip Quick 2.8mm 230cm - [id number] Implanted:Qty: 3 on 03/29/2021 by Luciana Fernandez MD at ENDOSCOPY [facility] [employer] 08/27/2023 HX-202UR. A / / Sureclip 16mm 235cm - [id number] Implanted:Qty: 2 on 05/07/2022 by Luciana Fernandez MD at ENDOSCOPY [facility] Colon MICRO TECH ENDOSCOPY 07/06/2024 [id number] / / Power Port 8fr Sngl Lumen Plas - [id number] Implanted:Qty: 1 on 01/30/2023 by Koko Santiago MD at OR [facility] N/A: Chest CR BARD : PERIPHERAL VASCULAR 07/27/2024 [id number] / / [id number] Power Port 8fr Sngl Lumen Plas - [id number] Implanted:Qty: 1 on 01/30/2023 by Koko Santiago MD at OR [facility] CR BARD : PERIPHERAL VASCULAR [id number] 07/27/2024 [id number] / / [id number] documented as of this encounter Visit Diagnoses [...] and were consensually agreed upon. Care Teams Land Law Examiner Relationship Specialty Start Date End Date Mauro Watson DO [address] [address] PCP - General Family Medicine 04/13/19 documented as of this encounter
--- OUTSIDE RECORDS SUMMARY | 2024-02-19 09:23 | External Medical Summary | Summary of Care ---
Author Name Unknown Organization [facility] Address [address] [place] [address] Phone [phone] Care Team Providers Care Dials Supervisor Name Role Phone Mauro Watson DO [...] lung, unspecified part of lung (HCC) Procedures [place] INJ. PEMETREXED NOS 10MG [place] CARBOPLATIN INJECTION [place] FOSAPREPITANT INJECTION Lasha Christine MD 200 [facility] [place] [address] Anc Hem/Onc [address] [address] Referral ID Status Reason Start Date Expiration Date V isits Requested Visits Authorized [id number] Authorized 08/22/2023 04/28/2099 999 99 Encounter Details Date Type Department Care Team (Latest Contact Info) Description 12/26/2023 9:30 AM EDT Hem/Onc Treatment Hematology/Oncolog y Treatment, [address] [address] Diane Chair 1 Hem Onc [address] [place] [address] Encounter for antineoplastic chemotherapy*; Metastatic carcinoma involving [...] patient encounter 05/19/2014 Hypertriglyceridemia 05/16/2012 CORON ATHEROSCL [place] CORON VESSEL 07/11/2010 Dyslipidemia, goal LDL [...] State Radha Rosado [address] [place] [address] [place] [address] 01/16/2024 8:15 AM EDT Office Visit Hematology/Oncology State Radha Rosado [address] [place] [address] Lasha Christine MD [address] [place], [place] [address] 01/16/2024 8:45 AM EDT Hem/Onc Treatment Hematology/Oncology Treatment, [place] [address] [place], [place] [phone] Park, Chair 7 Hem Onc Scenery [address] [facility] [address] 02/10/2024 9:00 AM EDT Appointment Vascular Lab [place] [address] [place] [address] 02/10/2024 10:00 AM EDT Office Visit Vascular Surg [place] [address] [place] [address] Margarito Cabrera MD [address] [place] [address] 02/13/2024 9:00 AM EDT Imaging Radiology [facility] [address] [place] [address] 04/11/2024 1:20 PM EST Office Visit [facility] [address] [place] [address] Mauro Watson, [address] [place] [address] 08/13/2024 11:40 AM EDT Office Visit [facility] [address] [place] [address] [address] Mauro Watson, [address] [place] [address] Scheduled Procedures Name Priority Associated Diagnoses Date/Ti [...] this encounter Medical Devices Implanted Type Area Research Support Specialist Device Identifier Shelf Expiration Date Model / Serial / Lot Stent Main Body Jzue-45-52-Zt - [id number] Implanted:Qty: 1 on 06/10/2014 [place] Ronal [place] [facility] [place] Aorta [employer] 04/07/2016 TFFB-24-8 2-ZT / / Graft Iliac Leg Spirlz 56h70it - [id number] Implanted:Qty: 1 on 06/10/2014 by Ronal Gallegos MD [place] [facility] [place]: Aorta [employer] 10/09/2015 [id number] / / [id number] Description: Graft Iliac Leg Spirlz 57u84tp - [id number] Implanted:Qty: 1 on 06/10/2014 by Ronal Galleg[place] [facility] [place]: Femoral Artery [employer] 11/07/2016 [id number] / / [id number] Stent Polmer 29mm P3110 - [id number] Implanted:Qty: 1 on 06/10/2014 by Ronal Galleg[place] [facility] [place]A: Aorta JNJ : CORDIS ENDOVASCULAR 07/26/2018 [id number] / / [id number] Codman Orbit Galaxy Coil 2.5mm X 3.5cm Implanted:Qty: 1 on 09/12/2015 by Arik Shin MD [place] [facility] [place]: Head LENORA & LENORA CODMAN 02/26/2017 [id number] / [id number] / [id number] Description:COMPLEX XTRASOFT detachable coil deployed left internal carotid artery Codman Orbit Galaxy Coil 2.5mm X 2.5cm Implanted:Qty: 1 on 09/12/2015 by Arik Shin MD [place] [facility] [place]: Head LENORA & LENORA CODMAN 01/27/2016 [id number] / [id number] / [id number] Description:COMPLEX XTRASOFT detachable coil deployed left internal carotid artery aneurysm Codman [place] 2 Stent 4mm X 30mm Implanted:Qty: 1 on 09/12/2015 by Arik Shin MD [place] [facility] [place]: Head LENORA & LENORA DEPUY 03/26/2018 [id number] / [id number] / [id number] Description:Vascular reconst ruction device deployed in left internal carotid artery Codman Orbit Galaxy Coil 6mm X 20cm Implanted:Qty: 1 on 09/12/2015 by Arik Shin MD [place] [facility] [place]: Head LENORA & LENORA CODMAN 09/26/2016 [id number] / [id number] / [id number] Description:COMPLEX FILL det achable coil deployed left internal carotid artery aneurysm Codman Orbit Galaxy Coil 4mm X 10cm Implanted:Qty: 1 on 09/12/2015 by Arik Shin MD [place] [facility] [place]: Head LENORA & LENORA CODMAN 10/27/2015 [id number] 0 / [id number] / [id number] Description:COMPLEX XTRASOFT detachable coil deployed left internal carotid artery aneurysm Codman Orbit Galaxy Coil 3.5mm X 9cm Implanted:Qty: 1 on 09/12/2015 by Arik Shin MD [place] [facility] [place]: Head LENORA & LENORA CODMAN 12/28/2015 [id number] / [id number] / [id number] Description:COMPLEX XTRASOFT detachable coil deployed left internal carotid artery aneurysm Codman Orbit Galaxy Coil 3mm X 6cm Implanted:Qty: 1 on 09/12/2015 by Arik Shin MD [place] [facility] [place]: Head LENORA & LENORA CODMAN 04/28/2017 [id number] / [id number] / [id number] Description:COMPLEX XTRASOFT detachable coil deployed left internal carotid artery aneurysm Lens Intraoc 21.0 - [id number] - [id number] Implanted:Qty: 1 on 11/08/2020 by Yrui Bradley MD at OR [facility] Left: Eye BAUSCH & LOMB 06/26/2025 [id number] / [id number] / [id number] Lens Intraoc 20.5 - [id number] - [id number] Implanted:Qty: 1 on 11/22/2020 by Yuri Bradley MD at OR [facility] Right: Eye BAUSCH & LOMB 07/27/2025 [id number] / [id number] / [id number] Clip Quick 2.8mm 230cm - [id number] Implanted:Qty: 3 on 03/29/2021 by Luciana Fernandez MD at ENDOSCOPY [facility] [employer] 08/27/2023 HX-202UR. A / / Sureclip 16mm 235cm - [id number] Implanted:Qty: 2 on 05/07/2022 by Luciana Fernandez MD at ENDOSCOPY [facility] Colon MICRO TECH ENDOSCOPY 07/06/2024 [id number] / / Power Port 8fr Sngl Lumen Plas - [id number] Implanted:Qty: 1 on 01/30/2023 by Koko Santiago MD at OR [facility] N/A: Chest CR BARD : PERIPHERAL VASCULAR 07/27/2024 [id number] / / [id number] Power Port 8fr Sngl Lumen Plas - [id number] Implanted:Qty: 1 on 01/30/2023 by Koko Santiago MD at OR [facility] CR BARD : PERIPHERAL VASCULAR [id number] 07/27/2024 [id number] / / [id number] documented as of this encounter Visit Diagnoses [...] and were consensually agreed upon. Care Teams Dials Supervisor Relationship Specialty Start Date End Date Mauro Watson DO [address] [place] [address] PCP - General Family Medicine 04/13/19 documented as of this encounter
--- OUTSIDE RECORDS SUMMARY | 2024-02-19 09:23 | External Medical Summary | Summary of Care ---
Author Name Unknown Organization [facility] Address [address] [place] [address] Phone [phone] Care Team Providers Care Regulatory Affairs Consultant Name Role Phone Mauro Watson DO Primary Care Provider Reason for Visit * Reason Comments Difficulty Concentrating Encounter Details Date Type Department Care Team (Latest Contact Info) Description 01/16/2024 7:40 AM EDT Laboratory Laboratory [facility] [address] [place] [phone] [place], Lab Scenery [address] [place] [address] Cholangiocarcinoma (HCC); Encounter for antineoplastic chemotherapy; Metastatic [...] EGFR 72 Lumbar radiculopathy 05/27/2019 Atherosclerosis of [place] co ronary artery of [place] heart with angina pectoris 05/05/2019 History of colon polyps 08/12/2018 ACEI/ARB contraindicated 09/21/2016 Carotid aneurysm, left 09/13/2015 Overview: S/p coil embolization Cerebral aneurysm, nonruptured 09/05/2015 AAA (abdominal aortic aneurysm) 06/20/2015 Overview: S/p repair Bilateral carotid artery disease 06/20/2015 Medical home patient encounter 05/19/2014 Hypertriglyceridemia 05/16/2012 CORON ATHEROSCL [place] CORON VESSEL 07/11/2010 Dyslipidemia, goal LDL below [...] Office Visit Hematology/Oncology State Radha Rosado [address] [place] [address] Lasha Christine MD [address] [place] [address] 01/16/2024 8:45 AM EDT Hem/Onc Treatment Hematology/Oncology Treatment, [place] [address] [place] [address] Diane, Chair 7 Hem Onc Scenery [address] [place], [place] [address] Arrived 02/10/2024 9:00 AM EDT Appointment Vascular Lab [place] [address] [place] [address] 02/10/2024 10:00 AM EDT Office Visit Vascular Surg [place] [address] [place] [address] Margarito Cabrera MD [address] [place] [address] 02/13/2024 9:00 AM EDT Imaging Radiology [address] [place] [address] 04/11/2024 1:20 PM EST Office Visit [facility] [address] [place] [address] Mauro Watson, [address] [place] [address] 08/13/2024 11:40 AM EDT Office Visit [facility] [address] [place] [address] [address] Mauro Watson, [address] [place] [address] Pending Results Name Type Priority Associated Diagnoses Date /Time CEA Lab STAT Cholangiocarcinoma (HCC) Encounter for antineoplastic chemotherapy 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) Other abnormal tumor markers 01/16/2024 7:52 AM EDT COMPREHENSIVE METABOLIC PANEL Lab STAT Cholangiocarcinoma (HCC) Encounter for antineoplastic chemotherapy 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) Other abnormal tumor markers 01/16/2024 7:52 AM EDT CBC WITH WBC DIFFERENTIAL Lab STAT Cholangiocarcinoma (HCC) Encounter for antineoplastic chemotherapy 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) Other abnormal tumor markers 01/16/2024 7:52 AM EDT CBC Lab STAT Cholangiocarcinoma (HCC) Encounter for antineoplastic chemotherapy 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) Other abnormal tumor markers 01/16/2024 7:52 AM EDT DIFFERENTIAL, AUTOMATED Lab STAT Cholangiocarcinoma (HCC) Encounter for antineoplastic chemotherapy 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) Other abnormal tumor markers 01/16/2024 7:52 AM EDT Scheduled Procedures Name Priority Associated [...] this encounter Medical Devices Implanted Type Area Sewing Demonstrator Device Identifier Shelf Expiration Date Model / Serial / Lot Stent Main Body Wlrt-90-77-Zt - [id number] Implanted:Qty: 1 on 06/10/2014 by Ronal [place] MD [place] [facility] [place] Aorta [employer]NA[employer] 04/07/2016 TFFB-24-8 2-ZT / / Graft Iliac Leg Spirlz 82r20ig - [id number] Implanted:Qty: 1 on 06/10/2014 by Ronal Gallegos MD [place] [facility] [place]: Aorta [employer] 10/09/2015 [id number] / / [id number] Description: Graft Iliac Leg Spirlz 55s40uz - [id number] Implanted:Qty: 1 on 06/10/2014 by Ronal Gallegos MD [place] [facility] [place]: Femoral Artery [employer] 11/07/2016 [id number] / / [id number] Stent Polmer 29mm P3110 - [id number] Implanted:Qty: 1 on 06/10/2014 by Ronal Gallegos MD [place] [facility] [place]A: Aorta JNJ : CORDIS ENDOVASCULAR 07/26/2018 P3110 / / [id number] Codman Orbit Galaxy Coil 2.5mm X 3.5cm Implanted:Qty: 1 on 09/12/2015 by Arik Shin MD [place] [facility] [place]: Head LENORA & LENORA CODMAN 02/26/2017 [id number] / [id number] / [id number] Description:COMPLEX XTRASOFT detachable coil deployed left internal carotid artery Codman Orbit Galaxy Coil 2.5mm X 2.5cm Implanted:Qty: 1 on 09/12/2015 by Arik Shin MD [place] [facility] [place]: Head LENORA & LENORA CODMAN 01/27/2016 [id number] / [id number] / [id number] Description:COMPLEX XTRASOFT detachable coil deployed left internal carotid artery aneurysm Codman [place] 2 Stent 4mm X 30mm Implanted:Qty: 1 on 09/12/2015 by Arik Shin MD [place] [facility] [place]: Head LENORA & LENORA DEPUY 03/26/2018 [id number] / [id number] / [id number] Description:Vascular reconst ruction device deployed in left internal carotid artery Codman Orbit Galaxy Coil 6mm X 20cm Implanted:Qty: 1 on 09/12/2015 by Arik Shin MD [place] [facility] [place]: Head LENORA & LENORA [facility] [place] [place] 09/26/2016 [id number] / [id number] / [id number] Description:COMPLEX FILL det achable coil deployed left internal carotid artery aneurysm Codman Orbit Galaxy Coil 4mm X 10cm Implanted:Qty: 1 on 09/12/2015 by Arik Shin MD [place] [facility] [place]: Head LENORA & LENORA [facility] [place] [place] 10/27/2015 [id number] 0 / [id number] / [id number] Description:COMPLEX XTRASOFT detachable coil deployed left internal carotid artery aneurysm Codman Orbit Galaxy Coil 3.5mm X 9cm Implanted:Qty: 1 on 09/12/2015 by Arik Shin MD [place] [facility] [place]: Head LENORA & LENORA CODMAN 12/28/2015 [id number] / [id number] / [id number] Description:COMPLEX XTRASOFT detachable coil deployed left internal carotid artery aneurysm Codman Orbit Galaxy Coil 3mm X 6cm Implanted:Qty: 1 on 09/12/2015 by Arik Shin MD [place] [facility] [place]: Head LENORA & LENORA CODMAN 04/28/2017 [id number] / [id number] / [id number] Description:COMPLEX XTRASOFT detachable coil deployed left internal carotid artery aneurysm Lens Intraoc 21.0 - [id number] - [id number] Implanted:Qty: 1 on 11/08/2020 by Yuri Bradley MD at OR [facility] Left: Eye BAUSCH & LOMB 06/26/2025 [id number] / [id number] / [id number] Lens Intraoc 20.5 - [id number] - [id number] Implanted:Qty: 1 on 11/22/2020 by Yuri Bradley MD at OR [facility] Right: Eye BAUSCH & LOMB 07/27/2025 [id number] / [id number] / [id number] Clip Quick 2.8mm 230cm - [id number] Implanted:Qty: 3 on 03/29/2021 by Luciana Fernandez MD at ENDOSCOPY [facility] [employer] 08/27/2023 HX-202UR. A / / Sureclip 16mm 235cm - [id number] Implanted:Qty: 2 on 05/07/2022 by Luciana Fernandez MD at ENDOSCOPY [facility] Colon MICRO TECH ENDOSCOPY 07/06/2024 [id number] / / Power Port 8fr Sngl Lumen Plas - [id number] Implanted:Qty: 1 on 01/30/2023 by Koko Santiago MD at OR [facility] N/A: Chest CR BARD : PERIPHERAL VASCULAR 07/27/2024 [id number] / / [id number] Power Port 8fr Sngl Lumen Plas - [id number] Implanted:Qty: 1 on 01/30/2023 by Koko Santiago MD at [facility] CR BARD : PERIPHERAL VASCULAR [id number] 07/27/2024 [id number] / / [id number] documented as of this encounter Visit Diagnoses [...] and were consensually agreed upon. Care Teams Regulatory Affairs Consultant Relationship Specialty Start Date End Date Mauro Watson DO [address] [place] [address] PCP - General Family Medicine 04/13/19 documented as of this encounter
--- OUTSIDE RECORDS SUMMARY | 2024-02-19 09:23 | External Medical Summary | Summary of Care ---
Author Name Unknown Organization [facility] Address [address] [place] [address] Phone [phone] Care Team Providers Care Business Process Manager Name Role Phone Mauro Watson DO Primary Care Provider Reason for Visit * Reason Comments Chemotherapy C6 Alimta * Episode Based Medications (Routine) - Authorized Specialty Diagnoses / Procedures Referred By Contac t Referred To Contact Diagnoses Encounter for antineoplastic chemotherapy 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) Malignant neoplasm of left lung, unspecified part of lung (HCC) Procedures [place] INJ. PEMETREXED NOS 10MG [place] CARBOPLATIN INJECTION [place] FOSAPREPITANT INJECTION Lasha Christine MD 200 [facility] [place] [address] Anc Hem/Onc [address] [address] Referral ID Status Reason Start Date Expiration Date V isits Requested Visits Authorized [id number] Authorized 08/22/2023 04/28/2099 999 99 Encounter Details Date Type Department Care Team (Latest Contact Info) Description 12/05/2023 11:00 AM EDT Hem/Onc Treatment Hematology/Oncolog y Treatment, [address] [address] Diane Chair 9 Hem On[address] [place] [address] Encounter for antineoplastic chemotherapy*; Metastatic carcinoma involving [...] EGFR 72 Lumbar radiculopathy 05/27/2019 Atherosclerosis of [place] co ronary artery of [place] heart with angina pectoris 05/05/2019 History of colon polyps 08/12/2018 ACEI/ARB contraindicated 09/21/2016 Carotid aneurysm, left 09/13/2015 Overview: S/p coil embolization Cerebral aneurysm, nonruptured 09/05/2015 AAA (abdominal aortic aneurysm) 06/20/2015 Overview: S/p repair Bilateral carotid artery disease 06/20/2015 Medical home patient encounter 05/19/2014 Hypertriglyceridemia 05/16/2012 CORON ATHEROSCL [place] CORON VESSEL 07/11/2010 Dyslipidemia, goal LDL below [...] momentarily and then assisted to seat by CHILD CARE SPECIALIST. VS taken when he was in seat. [...] Description 01/16/2024 7:40 AM EDT Laboratory Laboratory [facility] [place] 200 [facility] [place] [phone] [place], Lab [facility] 200 [facility] [place] [address] 01/16/2024 8:15 AM EDT Office Visit Hematology/Oncology [facility] [place] 200 [facility] [place] [phone] Lasha Christine MD 200 [facility] [place] [address] 01/16/2024 8:45 AM EDT Hem/Onc Treatment Hematology/Oncology Treatment, [place] [address] [facility] [place] [phone] Diane, Chair 7 Hem Onc Scenery [address] [place] [address] 02/10/2024 9:00 AM EDT Appointment Vascular Lab [address] [address] 02/10/2024 10:00 AM EDT Office Visit Vascular Surg [place] [address] [place] [address] Margarito Cabrera MD [facility] [place] [address] 02/13/2024 9:00 AM EDT Imaging Radiology [facility] [address] [place] [address] 04/11/2024 1:20 PM EST Office Visit [facility] [address] [place] [address] Mauro Watson, DO 132 [facility] [place] [address] 08/13/2024 11:40 AM EDT Office Visit [facility] [address] [place] [address] Mauro Watson, 132 [facility] [place] [address] Scheduled Procedures Name Priority Associated Diagnoses Date/Ti [...] this encounter Medical Devices Implanted Type Area Travel Specialist Device Identifier Shelf Expiration Date Model / Serial / Lot Stent Main Body Ioct-26-72-Zt - [id number] Implanted:Qty: 1 on 06/10/2014 by Ronal [place] [facility] Aorta [employer] 04/07/2016 TFFB-24-8 2-ZT / / Graft Iliac Leg Spirlz 92a19bp - [id number] Implanted:Qty: 1 on 06/10/2014 by Ronal [place] [facility] [place]: Aorta [employer] 10/09/2015 [id number] / / [id number] Description: Graft Iliac Leg Spirlz 16x27bp - [id number] Implanted:Qty: 1 on 06/10/2014 by Ronal [place]leg[place] [facility] [place]: Femoral Artery [employer] 11/07/2016 [id number] / / [id number] Stent Polmer 29mm P3110 - [id number] Implanted:Qty: 1 on 06/10/2014 by Ronal [place] [facility] [place]A: Aorta JNJ : CORDIS ENDOVASCULAR 07/26/2018 P3110 / / [id number] Codman Orbit Galaxy Coil 2.5mm X 3.5cm Implanted:Qty: 1 on 09/12/2015 by Arik Shin [place] [facility] [place]: Head LENORA & [facility]ORA [facility] 02/26/2017 [id number] / [id number] / [id number] Description:COMPLEX XTRASOFT detachable coil deployed left internal carotid artery Codman Orbit Galaxy Coil 2.5mm X 2.5cm Implanted:Qty: 1 on 09/12/2015 by Arik Shin MD [place] [facility] [place]: Head LENORA & L[facility]ORA [facility] 01/27/2016 [id number] / [id number] / [id number] Description:COMPLEX XTRASOFT detachable coil deployed left internal carotid artery aneurysm Codman [place] 2 Stent 4mm X 30mm Implanted:Qty: 1 on 09/12/2015 by Arik Shin MD [place] [facility] Left: Head LENORA & LENORA DEPUY 03/26/2018 [id number] / [id number] / [id number] Description:Vascular reconst ruction device deployed in left internal carotid artery Codman Orbit Galaxy Coil 6mm X 20cm Implanted:Qty: 1 on 09/12/2015 by Arik Shin MD [place] [facility] Left: Head LENORA & [facility]ORA [facility] 09/26/2016 [id number] / [id number] / [id number] Description:COMPLEX FILL det achable coil deployed left internal carotid artery aneurysm Codman Orbit Galaxy Coil 4mm X 10cm Implanted:Qty: 1 on 09/12/2015 by Arik Shin MD [place] [facility] [place]: Head LENORA & LENORA CODMAN 10/27/2015 [id number] 0 / [id number] / [id number] Description:COMPLEX XTRASOFT detachable coil deployed left internal carotid artery aneurysm Codman Orbit Galaxy Coil 3.5mm X 9cm Implanted:Qty: 1 on 09/12/2015 by Arik Shin MD at [facility] Left: Head LENORA & LENORA CODMAN 12/28/2015 [id number] / [id number] / [id number] Description:COMPLEX XTRASOFT detachable coil deployed left internal carotid artery aneurysm Codman Orbit Galaxy Coil 3mm X 6cm Implanted:Qty: 1 on 09/12/2015 by Arik Shin MD [place] [facility] Left: Head LENORA & LENORA CODMAN 04/28/2017 [id number] / [id number] / [id number] Description:COMPLEX XTRASOFT detachable coil deployed left internal carotid artery aneurysm Lens Intraoc 21.0 - [id number] - [id number] Implanted:Qty: 1 on 11/08/2020 by Yuri Bradley MD at OR [facility] Left: Eye BAUSCH & LOMB 06/26/2025 [id number] / [id number] / [id number] Lens Intraoc 20.5 - [id number] - [id number] Implanted:Qty: 1 on 11/22/2020 by Yuri Bradley MD at OR [facility] Right: Eye BAUSCH & LOMB 07/27/2025 [id number] / [id number] / [id number] Clip Quick 2.8mm 230cm - [id number] Implanted:Qty: 3 on 03/29/2021 by Luciana Fernandez MD at ENDOSCOPY [facility] [employer] 08/27/2023 HX-202UR. A / / Sureclip 16mm 235cm - [id number] Implanted:Qty: 2 on 05/07/2022 by Luciana Fernandez MD at ENDOSCOPY [facility] Colon MICRO TECH ENDOSCOPY 07/06/2024 [id number] / / Power Port 8fr Sngl Lumen Plas - [id number] Implanted:Qty: 1 on 01/30/2023 by Koko Santiago MD at OR [facility] N/A: Chest CR BARD : PERIPHERAL VASCULAR 07/27/2024 [id number] / / [id number] Power Port 8fr Sngl Lumen Plas - [id number] Implanted:Qty: 1 on 01/30/2023 by Koko Santiago MD at [facility] CR BARD : PERIPHERAL VASCULAR [id number] 07/27/2024 [id number] / / [id number] documented as of this encounter Visit Diagnoses [...] and were consensually agreed upon. Care Teams Business Process Manager Relationship Specialty Start Date End Date Mauro Watson DO [address] [place] [address] PCP - General Family Medicine 04/13/19 documented as of this encounter
--- OUTSIDE RECORDS SUMMARY | 2024-02-19 09:23 | External Medical Summary ---
Author Name Unknown Address Unknown Organization K09:[facility] [place] [address] Laboratory Report Ordering Provider Test Date Status ANN KLEIN 01/16/2024 07:52:00 Final Observation Date Value Abnormality Reference (Units ) Status WBC, Total 01/16/2024 07:52:00 14.84 Above high normal 4 .00-10.80 (K/uL) Final RBC 01/16/2024 07:52:00 3.01 4.50-5.25 (M/uL) Final Hemoglobin 01/16/2024 07:52:00 10.5 Below low normal 14 .0-16.8 (g/dL) Final HCT 01/16/2024 07:52:00 33.8 Below low normal 40. 0-48.4 (%) Final MCV 01/16/2024 07:52:00 112.3 82.0-99.5 (fL) Final MCH 01/16/2024 07:52:00 34.9 27.0-34.0 (pg) Final MCHC 01/16/2024 07:52:00 31.1 32.0-36.0 (g/dL) Final RDW 01/16/2024 07:52:00 18.0 11.5-15.5 (%) Final Platelets 01/16/2024 07:52:00 162 140-400 (K /uL) Final MPV 01/16/2024 07:52:00 11.7 6.6-11.1 ( fL) Final Performing Location [facility] [place] [address]
--- OUTSIDE RECORDS SUMMARY | 2024-02-19 09:23 | External Medical Summary ---
Author Name Unknown Address Unknown Organization K09:[facility] [address] [place] [address] Laboratory Report Ordering Provider Test Date Status ANN KLEIN 01/16/2024 07:52:00 Final Observation Date Value Abnormality Reference (Units ) Status BUN 01/16/2024 07:52:00 19 6-20 (mg/dL) Final Creatinine 01/16/2024 07:52:00 1.1 0.6-1.2 (mg/dL) Final Glomerular filtration rate/1.73 sq M.predicted [Volume Rate/Area] in Serum, Plasma or Blood by Creatinine-based formula (CKD-EPI) 01/16/2024 07:52:00 70 >=60 (mL/min) Final eGFR is calculated based on the CKD-EPI 2020 equation. Sodium 01/16/2024 07:52:00 141 135-146 (m mol/L) Final Potassium 01/16/2024 07:52:00 4.9 3.5-5.1 (m mol/L) Final Cl 01/16/2024 07:52:00 107 98-107 (mm ol/L) Final CO2 01/16/2024 07:52:00 19 Below low normal 22- 32 (mmol/L) Final Anion gap 01/16/2024 07:52:00 15 7-15 (mmol /L) Final Glucose 01/16/2024 07:52:00 159 Above high normal 70 -120 (mg/dL) Final Albumin 01/16/2024 07:52:00 3.3 Below low normal 3.8 -5.0 (g/dL) Final AST (Aspartate aminotransferase) 01/16/2024 07:52:00 123 Above high normal 10-50 (U/L) Final Alk Phos 01/16/2024 07:52:00 302 Above high normal 35 -130 (U/L) Final Bilirubin, Total 01/16/2024 07:52:00 0.7 <=1 .2 (mg/dL) Final Calcium 01/16/2024 07:52:00 10.1 8.4-10.2 ( mg/dL) Final Protein 01/16/2024 07:52:00 8.2 6.0-8.3 (g /dL) Final ALT (Alanine aminotransferase) 01/16/2024 07:52:00 50 10-50 (U/L) Efrain mathur Performing Location [facility] [address] [place] [address]
--- OUTSIDE RECORDS SUMMARY | 2024-02-19 09:23 | External Medical Summary | Summary of Care ---
Author Name Unknown Organization [facility] Address [address] [place] [address] Phone [phone] Care Team Providers Care Permaculture Designer Name Role Phone Mauro Watson DO Primary Care Provider Reason for Visit * Reason Comments Chemotherapy C6 Alimta * Episode Based Medications (Routine) - Authorized Specialty Diagnoses / Procedures Referred By Contac t Referred To Contact Diagnoses Encounter for antineoplastic chemotherapy 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) Malignant neoplasm of left lung, unspecified part of lung (HCC) Procedures NC INJ. PEMETREXED NOS 10MG NC CARBOPLATIN INJECTION NC FOSAPREPITANT INJECTION Lasha Christine MD 200 [facility] [place] [address] Anc Hem/Onc [address] [address] Referral ID Status Reason Start Date Expiration Date V isits Requested Visits Authorized [id number] Authorized 08/22/2023 04/28/2099 999 99 Encounter Details Date Type Department Care Team (Latest Contact Info) Description 12/05/2023 11:00 AM EDT Hem/Onc Treatment Hematology/Oncolog y Treatment, [address] [address] Diane Chair 9 Hem On[address] [place] [address] Encounter for antineoplastic chemotherapy*; Metastatic carcinoma involving [...] EGFR 72 Lumbar radiculopathy 05/27/2019 Atherosclerosis of [place] co ronary artery of [place] heart with angina pectoris 05/05/2019 History of colon polyps 08/12/2018 ACEI/ARB contraindicated 09/21/2016 Carotid aneurysm, left 09/13/2015 Overview: S/p coil embolization Cerebral aneurysm, nonruptured 09/05/2015 AAA (abdominal aortic aneurysm) 06/20/2015 Overview: S/p repair Bilateral carotid artery disease 06/20/2015 Medical home patient encounter 05/19/2014 Hypertriglyceridemia 05/16/2012 CORON ATHEROSCL [place] CORON VESSEL 07/11/2010 Dyslipidemia, goal LDL below [...] momentarily and then assisted to seat by BANDER. VS taken when he was in seat. [...] Description 01/16/2024 7:40 AM EDT Laboratory Laboratory [facility] [place] [address] [facility] [place] [phone] [place], Lab [facility] [address] [facility] [place] [address] 01/16/2024 8:15 AM EDT Office Visit Hematology/Oncology [facility] [place] [address] [facility] [place] [phone] Lasha Christine MD 200 [facility] [place] [address] 01/16/2024 8:45 AM EDT Hem/Onc Treatment Hematology/Oncology Treatment, [place] 200 [facility] [place] [phone] Diane, Chair 7 Hem Onc [address] [place] [address] 02/10/2024 9:00 AM EDT Appointment Vascular Lab [address] [address] 02/10/2024 10:00 AM EDT Office Visit Vascular Surg [place] [address] [place] [address] Margarito Cabrera MD [facility] [place] [address] 02/13/2024 9:00 AM EDT Imaging Radiology [facility] 1st [facility] [address] [place] [address] 04/11/2024 1:20 PM EST Office Visit [facility] [address] [place] [address] Mauro Watson, DO [address] [facility] [place] [address] 08/13/2024 11:40 AM EDT Office Visit [facility] [address] [place] [address] Mauro Watson, 132 [facility] [place] [address] Scheduled Procedures Name Priority Associated Diagnoses Date/Ti [...] this encounter Medical Devices Implanted Type Area Maintenance Mgr Device Identifier Shelf Expiration Date Model / Serial / Lot Stent Main Body Hpka-84-87-Zt - [id number] Implanted:Qty: 1 on 06/10/2014 by Ronal Gallegos MD at OR [facility] Aorta [employer] 04/07/2016 TFFB-24-8 2-ZT / / Graft Iliac Leg Spirlz [id number] - [id number] Implanted:Qty: 1 on 06/10/2014 by Ronal Gallegos MD at OR [facility] Right: Aorta [employer] 10/09/2015 [id number] / / [id number] Description: Graft Iliac Leg Spirlz 69q35io - [id number] Implanted:Qty: 1 on 06/10/2014 by Ronal Gallegos MD at OR [facility] Right: Femoral Artery [employer] 11/07/2016 [id number] / / [id number] Stent Polmer 29mm P3110 - [id number] Implanted:Qty: 1 on 06/10/2014 by Ronal Gallegos MD at OR [facility] N/A: Aorta JNJ : CORDIS ENDOVASCULAR 07/26/2018 [id number] / / [id number] Codman Orbit Galaxy Coil 2.5mm X 3.5cm Implanted:Qty: 1 on 09/12/2015 by Arik Shin MD at OR [facility] Left: Head [facility] 02/26/2017 [id number] / [id number] / [id number] Description:COMPLEX XTRASOFT detachable coil deployed left internal carotid artery Codman Orbit Galaxy Coil 2.5mm X 2.5cm Implanted:Qty: 1 on 09/12/2015 by Arik Shin MD at OR [facility] Left: Head [facility] 01/27/2016 [id number] / [id number] / [id number] Description:COMPLEX XTRASOFT detachable coil deployed left internal carotid artery aneurysm Codman [place] 2 Stent 4mm X 30mm Implanted:Qty: 1 on 09/12/2015 by Arik Shin MD at OR [facility] Left: Head LEN[employer]A [employer] LENORA DEPUY 03/26/2018 [id number] / [id number] / [id number] Description:Vascular reconst ruction device deployed in left internal carotid artery Codman Orbit Galaxy Coil 6mm X 20cm Implanted:Qty: 1 on 09/12/2015 by Arik Shin MD at OR [facility] Left: Head [facility] 09/26/2016 [id number] / [id number] / [id number] Description:COMPLEX FILL det achable coil deployed left internal carotid artery aneurysm Codman Orbit Galaxy Coil 4mm X 10cm Implanted:Qty: 1 on 09/12/2015 by Arik Shin MD at OR [facility] Left: Head [employer]A [employer] LENORA CODMAN 10/27/2015 [id number] / [id number] / [id number] Description:COMPLEX XTRASOFT detachable coil deployed left internal carotid artery aneurysm Codman Orbit Galaxy Coil 3.5mm X 9cm Implanted:Qty: 1 on 09/12/2015 by Arik Shin MD at [facility] Left: Head LENORA [employer] LENORA CODMAN 12/28/2015 [id number] / [id number] / [id number] Description:COMPLEX XTRASOFT detachable coil deployed left internal carotid artery aneurysm Codman Orbit Galaxy Coil 3mm X 6cm Implanted:Qty: 1 on 09/12/2015 by Arik Shin MD at OR [facility] Left: Head L[employer]A [employer] LENORA CODMAN 04/28/2017 [id number] / [id number] / [id number] Description:COMPLEX XTRASOFT detachable coil deployed left internal carotid artery aneurysm Lens Intraoc 21.0 - [id number] - [id number] Implanted:Qty: 1 on 11/08/2020 by Yuri Bradley MD at OR [facility] Left: Eye BAUSCH [employer] LOMB 06/26/2025 [id number] / [id number] / [id number] Lens Intraoc 20.5 - [id number] - [id number] Implanted:Qty: 1 on 11/22/2020 by Yuri Bradley MD at OR [facility] Right: Eye BAUSCH & LOMB 07/27/2025 [id number] / [id number] / [id number] Clip Quick 2.8mm 230cm - [id number] Implanted:Qty: 3 on 03/29/2021 by Luciana Fernandez MD at ENDOSCOPY [facility] [employer] 08/27/2023 HX-202UR. A / / Sureclip 16mm 235cm - [id number] Implanted:Qty: 2 on 05/07/2022 by Luciana Fernandez MD at ENDOSCOPY [facility] Colon MICRO TECH ENDOSCOPY 07/06/2024 [id number] / / Power Port 8fr Sngl Lumen Plas - [id number] Implanted:Qty: 1 on 01/30/2023 by Koko Santiago MD at OR [facility] N/A: Chest CR BARD : PERIPHERAL VASCULAR 07/27/2024 [id number] / / [id number] Power Port 8fr Sngl Lumen Plas - [id number] Implanted:Qty: 1 on 01/30/2023 by Koko Santiago MD at [facility] CR BARD : PERIPHERAL VASCULAR [id number] 07/27/2024 [id number] / / [id number] documented as of this encounter Visit Diagnoses [...] and were consensually agreed upon. Care Teams Permaculture Designer Relationship Specialty Start Date End Date Mauro Watson DO [address] [place] [address] PCP - General Family Medicine 04/13/19 documented as of this encounter
--- OUTSIDE RECORDS SUMMARY | 2024-02-19 09:23 | External Medical Summary | Summary of Care ---
Author Name Unknown Organization [facility] Address [address] [place] [address] Phone [phone] Care Team Providers Care Tanning Salon Attendant Name Role Phone Mauro Watson DO Primary [...] CT FOSAPREPITANT INJECTION Lasha Christine MD 200 [facility] [place] [address] Anc Hem/Onc [address] [address] Referral ID Status Reason Start Date Expiration Date V isits Requested Visits Authorized [id number] Authorized 08/22/2023 04/28/2099 999 99 Encounter Details Date Type Department Care Team (Latest Contact Info) Description 12/26/2023 9:30 AM EDT Hem/Onc Treatment Hematology/Oncolog y Treatment, [address] [address] Diane Chair 1 Hem Onc [address] [place] [address] Encounter for antineoplastic chemotherapy*; Metastatic carcinoma involving [...] EGFR 72 Lumbar radiculopathy 05/27/2019 Atherosclerosis of [place] co ronary artery of [place] heart with angina pectoris 05/05/2019 History of colon polyps 08/12/2018 ACEI/ARB contraindicated 09/21/2016 Carotid aneurysm, left 09/13/2015 Overview: S/p coil embolization Cerebral aneurysm, nonruptured 09/05/2015 AAA (abdominal aortic aneurysm) 06/20/2015 Overview: S/p repair Bilateral carotid artery disease 06/20/2015 Medical home patient encounter 05/19/2014 Hypertriglyceridemia 05/16/2012 CORON ATHEROSCL [place] CORON VESSEL 07/11/2010 Dyslipidemia, goal LDL [...] State Radha Rosado [address] [place] [address] [address] [place] [address] 01/16/2024 8:15 AM EDT Office Visit Hematology/Oncology [facility] [place] [address] [place] [address] Lasha Christine MD [address] [place], [place] [address] 01/16/2024 8:45 AM EDT Hem/Onc Treatment Hematology/Oncology Treatment, [place] [address] [place], [place] [phone] [place], Chair 7 Hem Onc [address] [facility] [address] 02/10/2024 9:00 AM EDT Appointment Vascular Lab [place] [address] [place] [address] 02/10/2024 10:00 AM EDT Office Visit Vascular Surg [place] [address] [place] [address] Margarito Cabrera MD [address] [place] [address] 02/13/2024 9:00 AM EDT Imaging Radiology [facility] 1st [facility] [address] [place] [address] 04/11/2024 1:20 PM EST Office Visit [facility] [address] [place] [address] Mauro Watson, [address] [place] [address] 08/13/2024 11:40 AM EDT Office Visit [facility] [address] [place] [address] Mauro Watson, [address] [place] [address] Scheduled Procedures Name Priority Associated Diagnoses Date/Ti [...] this encounter Medical Devices Implanted Type Area Deputy Register Of Deeds Device Identifier Shelf Expiration Date Model / Serial / Lot Stent Main Body Mswd-82-42-Zt - [id number] Implanted:Qty: 1 on 06/10/2014 by Ronal Gallegos MD at [place] [facility] Aorta [employer] 04/07/2016 TFFB-24-8 2-ZT / / Graft Iliac Leg Spirlz 09d35in - [id number] Implanted:Qty: 1 on 06/10/2014 by Ronal Gallegos MD at OR [facility] Right: Aorta [employer] 10/09/2015 [id number] / / [id number] Description: Graft Iliac Leg Spirlz 45a91np - [id number] Implanted:Qty: 1 on 06/10/2014 by Ronal Gallegos MD at OR [facility] Right: Femoral Artery [employer] 11/07/2016 [id number] / / [id number] Stent Polmer 29mm P3110 - [id number] Implanted:Qty: 1 on 06/10/2014 by Ronal Gallegos MD at OR [facility] N/A: Aorta JNJ : CORDIS ENDOVASCULAR 07/26/2018 P3110 / / [id number] Codman Orbit Galaxy Coil 2.5mm X 3.5cm Implanted:Qty: 1 on 09/12/2015 by Arik Shin MD at OR [facility] Left: Head [employer]A [employer] LENORA CODMAN 02/26/2017 [id number] / [id number] / [id number] Description:COMPLEX XTRASOFT detachable coil deployed left internal carotid artery Codman Orbit Galaxy Coil 2.5mm X 2.5cm Implanted:Qty: 1 on 09/12/2015 by Arik Shin MD at OR [facility] Left: Head [employer]A [employer] LENORA CODMAN 01/27/2016 [id number] / [id number] / [id number] Description:COMPLEX XTRASOFT detachable coil deployed left internal carotid artery aneurysm Codman [place] 2 Stent 4mm X 30mm Implanted:Qty: 1 on 09/12/2015 by Arik Shin MD at OR [facility] Left: Head LEN[employer]A [employer] LENORA DEPUY 03/26/2018 [id number] / [id number] / [id number] Description:Vascular reconst ruction device deployed in left internal carotid artery Codman Orbit Galaxy Coil 6mm X 20cm Implanted:Qty: 1 on 09/12/2015 by Arik Shin MD at OR [facility] Left: Head [employer]A [employer] LENORA CODMAN 09/26/2016 [id number] / [id number] / [id number] Description:COMPLEX FILL det achable coil deployed left internal carotid artery aneurysm Codman Orbit Galaxy Coil 4mm X 10cm Implanted:Qty: 1 on 09/12/2015 by Arik Shin MD at OR [facility] Left: Head [employer]A [employer] LENORA CODMAN 10/27/2015 [id number] / [id number] / [id number] Description:COMPLEX XTRASOFT detachable coil deployed left internal carotid artery aneurysm Codman Orbit Galaxy Coil 3.5mm X 9cm Implanted:Qty: 1 on 09/12/2015 by Arik Shin MD at OR [facility] Left: Head LEN[employer]A [employer] LENORA CODMAN 12/28/2015 [id number] / [id number] / [id number] Description:COMPLEX XTRASOFT detachable coil deployed left internal carotid artery aneurysm Codman Orbit Galaxy Coil 3mm X 6cm Implanted:Qty: 1 on 09/12/2015 by Arik Shin MD at OR [facility] Left: Head LEN[employer]A [employer] LENORA CODMAN 04/28/2017 [id number] / [id number] / [id number] Description:COMPLEX XTRASOFT detachable coil deployed left internal carotid artery aneurysm Lens Intraoc 21.0 - [id number] - [id number] Implanted:Qty: 1 on 11/08/2020 by Yuri Bradley MD at OR [facility] Left: Eye BAUSCH & LOMB 06/26/2025 [id number] / [id number] / [id number] Lens Intraoc 20.5 - [id number] - [id number] Implanted:Qty: 1 on 11/22/2020 by Yuri Bradley MD at OR [facility] Right: Eye BAUSCH & LOMB 07/27/2025 [id number] / [id number] / [id number] Clip Quick 2.8mm 230cm - [id number] Implanted:Qty: 3 on 03/29/2021 by Luciana Fernandez MD at ENDOSCOPY [facility] [employer] 08/27/2023 HX-202UR. A / / Sureclip 16mm 235cm - [id number] Implanted:Qty: 2 on 05/07/2022 by Luciana Fernandez MD at ENDOSCOPY [facility] Colon MICRO TECH ENDOSCOPY 07/06/2024 [id number] / / Power Port 8fr Sngl Lumen Plas - [id number] Implanted:Qty: 1 on 01/30/2023 by Koko Santiago MD at OR [facility] N/A: Chest CR BARD : PERIPHERAL VASCULAR 07/27/2024 [id number] / / [id number] Power Port 8fr Sngl Lumen Plas - [id number] Implanted:Qty: 1 on 01/30/2023 by Koko Santiago MD at OR [facility] CR BARD : PERIPHERAL VASCULAR [id number] 07/27/2024 [id number] / / [id number] documented as of this encounter Visit Diagnoses [...] and were consensually agreed upon. Care Teams Tanning Salon Attendant Relationship Specialty Start Date End Date Mauro Watson DO [address] [place] [address] PCP - General Family Medicine 04/13/19 documented as of this encounter
--- OUTSIDE RECORDS SUMMARY | 2024-02-19 09:24 | External Medical Summary ---
Author Name Unknown Address Unknown Organization K01:[facility] [address] [place] [address] Laboratory Report Ordering Provider Test Date Status ANN KLEIN 12/26/2023 08:34:01 Final Observation Date Value Abnormality Reference (Units ) Status CEA 12/26/2023 08:34:01 82195.0 Above high normal <= 5.2 (ng/mL) Final Performing Location [facility] [address] [place] [address]
--- OUTSIDE RECORDS SUMMARY | 2024-02-19 09:24 | External Medical Summary | Summary of Care ---
Author Name Unknown Organization [facility] Address [address] [place] [address] Phone [phone] Care Team Providers Care Process Worker Name Role Phone Watson Mauro Leonardogordy Primary Care Provider Encounter Details Date Type Department Care Team (Late st Contact Info) Description 12/31/2023 Orders Only Hematology/Oncology [facility] [address] [place] [phone] Lasha Christine MD [address] [place] [address] Malignant neoplasm of left lung, unspecified part of lung (HCC)*; 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) Allergies Active Allergy Reactions Criticality Noted Date Comments Aspirin Bleeding High 11/26/2011 Significant hemorroidal bleed on aspirin,high doses Duloxetine Hcl Hypertension 01/26/2020 documented as of this encounter (statuses as of 12/31/2023) Medications Medication Sig Dispensed Refills Start Date [...] as of this encounter (statuses as of 12/31/2023) Active Problems Problem Noted Date Diagnosed Date Malignant neoplasm of left lung 08/23/2023 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 01/21/2023 Encounter for antineoplastic chemotherapy 2022 Medical marijuana use 08/26/2021 CKD (chronic kidney disease), stage II 2 Overview: EGFR 72 Lumbar radiculopathy 05/27/2019 Atherosclerosis of [place] co ronary artery of [place] heart with angina pectoris 05/05/2019 History of colon polyps 08/12/2018 ACEI/ARB contraindicated 09/21/2016 Carotid aneurysm, left 09/13/2015 Overview: S/p coil embolization Cerebral aneurysm, nonruptured 09/05/2015 AAA (abdominal aortic aneurysm) 06/20/2015 Overview: S/p repair Bilateral carotid artery disease 06/20/2015 Medical home patient encounter 05/19/2014 Hypertriglyceridemia 05/16/2012 CORON ATHEROSCL CAHUILLA CORON VESSEL 07/11/2010 Dyslipidemia, goal LDL below [...] as of this encounter (statuses as of 12/31/2023) Resolved Problems Problem Noted Date Diagnosed Date [...] as of this encounter (statuses as of 12/31/2023) Immunizations Name Administration Dates Next Due COVID-19 [...] Progress Notes * Lasha Christine MD - 12/31/2023 6:32 AM EDT Slight increase in the CEA level noted to around 23,384. Improvement of the blood counts noted. (12/26/2023). I would like to add carboplatin at AUC of 4, continue Alimta as we planned every 3 weekly. documented in this encounter Plan of Treatment Upcoming Encounters Date Type Department Care Team (Late st Contact Info) Description 01/16/2024 7:40 AM EDT Laboratory Laboratory [facility] [place] [address] [place] [phone] Diane, Lab Scenery [address] [facility] [place] [address] 01/16/2024 8:15 AM EDT Office Visit Hematology/Oncology [facility] [place] [address] [place] [phone] Lasha Christine MD [address] [place] [address] 01/16/2024 8:45 AM EDT Hem/Onc Treatment Hematology/Oncology Treatment, [place] [address] [place] [phone] Diane, Chair 7 Hem Onc [facility] [address] [facility] [place] [address] 02/10/2024 9:00 AM EDT Appointment Vascular Lab [place] [address] [place] [address] 02/10/2024 10:00 AM EDT Office Visit Vascular Surg [facility] [address] [place] [address] Margarito Cabrera MD [address] [place] [address] 02/13/2024 9:00 AM EDT Imaging Radiology [facility]st [facility] [address] [place] [address] 04/11/2024 1:20 PM EST Office Visit Family Practice [facility] [address] [place] [address] Mauro Watson, DO [address] [place] [address] 08/13/2024 11:40 AM EDT Office Visit Family Practice [facility] [address] [place] [address] Mauro Watson, DO [address] [place] [address] Scheduled Procedures Name Priority Associated Diagnoses Date/Ti [...] exists Colorectal Cancer Screening 11/03/2023 COVID-19 Vaccine (2022- season) 2023 02/06/2022, 05/11/2021, 12/13/2020, Additional history [...] this encounter Medical Devices Implanted Type Area Bed Manager Device Identifier Shelf Expiration Date Model / Serial / Lot Stent Main Body Fwxy-55-23-Zt - [id number] Implanted:Qty: 1 on 06/10/2014 by Ronal Gallegos MD [place] [facility] Aorta [employer] 04/07/2016 TFFB-24-8 2-ZT / / Graft Iliac Leg Spirlz 10d75bg - [id number] Implanted:Qty: 1 on 06/10/2014 by Ronal Gallegos MD [place] [facility] Right: Aorta [employer] 10/09/2015 [id number] / / [id number] Description: Graft Iliac Leg Spirlz [id number] - [id number] Implanted:Qty: 1 on 06/10/2014 by Ronal Gallegos MD at [place] [facility] Right: Femoral Artery [employer] 11/07/2016 [id number] / / [id number] Stent Polmer 29mm P3110 - [id number] Implanted:Qty: 1 on 06/10/2014 by Ronal Gallegos MD at [place] [facility] N/A: Aorta JNJ : CORDIS ENDOVASCULAR 07/26/2018 [id number] / / [id number] Codman Orbit Galaxy Coil 2.5mm X 3.5cm Implanted:Qty: 1 on 09/12/2015 by Arik Shin MD at [place] [facility] Left: Head LENORA & LENORA CODMAN 02/26/2017 [id number] / [id number] / [id number] Description:COMPLEX XTRASOFT detachable coil deployed left internal carotid artery Codman Orbit Galaxy Coil 2.5mm X 2.5cm Implanted:Qty: 1 on 09/12/2015 by Arik Shin MD at [place] [facility] Left: Head LENORA & LENORA CODMAN 01/27/2016 [id number] / [id number] / [id number] Description:COMPLEX XTRASOFT detachable coil deployed left internal carotid artery aneurysm Codman [place] 2 Stent 4mm X 30mm Implanted:Qty: 1 on 09/12/2015 by Arik Shin MD at [place] [facility] Left: Head LENORA & LENORA DEPUY 03/26/2018 [id number] / [id number] / [id number] Description:Vascular reconst ruction device deployed in left internal carotid artery Codman Orbit Galaxy Coil 6mm X 20cm Implanted:Qty: 1 on 09/12/2015 by Arik Shin MD at [place] [facility] Left: Head LENORA & LENORA CODMAN 09/26/2016 [id number] / [id number] / [id number] Description:COMPLEX FILL det achable coil deployed left internal carotid artery aneurysm Codman Orbit Galaxy Coil 4mm X 10cm Implanted:Qty: 1 on 09/12/2015 by Arik Shin MD at [place] [facility] Left: Head LENORA & LENORA [facility] 10/27/2015 [id number] / [id number] / [id number] Description:COMPLEX XTRASOFT detachable coil deployed left internal carotid artery aneurysm Codman Orbit Galaxy Coil 3.5mm X 9cm Implanted:Qty: 1 on 09/12/2015 by Arik Shin MD at [place] [facility] Left: Head LENORA & LENORA [facility] 12/28/2015 [id number] / [id number] / [id number] Description:COMPLEX XTRASOFT detachable coil deployed left internal carotid artery aneurysm Codman Orbit Galaxy Coil 3mm X 6cm Implanted:Qty: 1 on 09/12/2015 by Arik Shin MD at [place] [facility] Left: Head LENORA & LENORA CODMAN 04/28/2017 [id number] / [id number] / [id number] Description:COMPLEX XTRASOFT detachable coil deployed left internal carotid artery aneurysm Lens Intraoc 21.0 - [id number] - [id number] Implanted:Qty: 1 on 11/08/2020 by Yuri Bradley MD at OR [facility] Left: Eye BAUSCH & LOMB 06/26/2025 [id number] / [id number] Lens Intraoc 20.5 - [id number] - [id number] Implanted:Qty: 1 on 11/22/2020 by Yuri Bradley MD at OR [facility] Right: Eye BAUSCH & LOMB 07/27/2025 [id number] / [id number] Clip Quick 2.8mm 230cm - [id number] Implanted:Qty: 3 on 03/29/2021 by Luciana Fernandez MD at ENDOSCOPY [facility] [employer] 08/27/2023 HX-202UR. A / / Sureclip 16mm 235cm - [id number] Implanted:Qty: 2 on 05/07/2022 by Luciana Fernandez MD at ENDOSCOPY [facility] Colon MICRO TECH ENDOSCOPY 07/06/2024 [id number] / / Power Port 8fr Sngl Lumen Plas - [id number] Implanted:Qty: 1 on 01/30/2023 by Koko Santiago MD at OR [facility] N/A: Chest CR BARD : PERIPHERAL VASCULAR 07/27/2024 [id number] / / [id number] Power Port 8fr Sngl Lumen Plas - [id number] Implanted:Qty: 1 on 01/30/2023 by Koko Santiago MD at [facility] CR BARD : PERIPHERAL VASCULAR [id number] 07/27/2024 [id number] / / [id number] documented as of this encounter Visit Diagnoses [...] and were consensually agreed upon. Care Teams Process Worker Relationship Specialty Start Date End Date Mauro Watson DO [address] [place] [address] PCP - General Family Medicine 04/13/19 documented as of this encounter
--- OUTSIDE RECORDS SUMMARY | 2024-02-19 09:24 | External Medical Summary | Summary of Care ---
Author Name Unknown Organization [facility] Address [address] [place] [address] Phone [phone] Care Team Providers Care Supervisor Car And Yard Name Role Phone Watson Nicol Leonardogordy Primary Care Provider Reason for Visit * Reason Onset Date Comments Scheduling 12/10/2023 Encounter Details Date Type Department Care Team (Late st Contact Info) Description 12/10/2023 Telephone Hematology/Oncology [facility] [place] [address] [place] [phone] [facility] [address] Scheduling Allergies Active Allergy Reactions Criticality Noted Date Comments Aspirin Bleeding High 11/26/2011 Significant hemorroidal bleed on aspirin,high doses Duloxetine Hcl Hypertension 01/26/2020 documented as of this encounter (statuses as of 12/16/2023) Medications Medication Sig Dispensed Refills Start Date [...] as of this encounter (statuses as of 12/16/2023) Active Problems Problem Noted Date Diagnosed Date Malignant neoplasm of left lung 08/23/2023 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 01/21/2023 Encounter for antineoplastic chemotherapy 2022 Medical marijuana use 08/26/2021 CKD (chronic kidney disease), stage II 2 Overview: EGFR 72 Lumbar radiculopathy 05/27/2019 Atherosclerosis of [place] co ronary artery of [place] heart with angina pectoris 05/05/2019 History of [...] as of this encounter (statuses as of 12/16/2023) Resolved Problems Problem Noted Date Diagnosed Date [...] as of this encounter (statuses as of 12/16/2023) Immunizations Name Administration Dates Next Due COVID-19 [...] lent Hd (Fluzone Hd) 01/02/2023,01/25/2021 Seasonal Influenza, Split, I IV3, With Preserve, Inj 04/19/2014 Seasonal Influenza, Trivalen t, Adjuvanted, 65+ yrs 02/17/2019 TDAP, Age 7 and older, IM [...] Telephone Encounter - Rodriguez Mann RN - 12/16/2023 12:[address] Christine- pt sent the following FYI message. " Gilbert Frias, I just wanted to keep Dr Christine in the loop, as I contracted Covid 4 days after my last chemo treatment. Through my family doctor, I was prescribed Lagevrio for the Covid, which I have finished taking. He also just prescribed Azithromycin as a precaution for pneumonia or other conditions. I just wanted to make sure Dr Christine is aware of all my medications. Thank you and have a good day." * Addendum Note - Nicol Watson DO - 12/10/2023 12:24 PM EDTAddended by: NICOL WATSON on: 12/10/2023 12:24 PM Modules accepted: Orders * Telephone Encounter - Nicol Watson DO - 12/10/2023 12:23 PM EDT Advise using Mulnupiravir for covid treatment due to less medication interactions. Sent to pharmacy * Telephone Encounter - Lorri Matias RN - 12/10/2023 10:45 AM EDT Would defer to PCP for COVID management. * Telephone Encounter - Jane Bello CPhT - 12/10/2023 9:20 AM EDT Pt asking if he can be prescribed Paxlovid. He tested positive yesterday. [facility] uses [facility] Jane Puckett CPhT, Tech II [facility] [address] [place] [address] * Telephone Encounter - Nia Javed, air shovel operator - 12/10/2023 9:18 AM EDT Patient requesting to be transferred to his oncologist states that he is positive for covid. Patient transferred. Thank you, Nia Javed Engraving Supervisor I [facility] 12/10/2023,9:19 AM documented in this encounter Plan of Treatment Upcoming Encounters Date Type Department Care Team (Late st Contact Info) Description 12/26/2023 8:30 AM EDT Laboratory Laboratory [facility] [place] [address] [place] [phone] Diane, Lab Scenery [address] [place] [address] 12/26/2023 9:30 AM EDT Hem/Onc Treatment Hematology/Oncology Treatment, [place] [address] [place] [phone] Diane, Chair 1 Hem Onc [facility] [address] [facility] [place] [address] 01/16/2024 8:15 AM EDT Office Visit Hematology/Oncology [facility] [place] [address] [place] [phone] Lasha Christine MD [address] [place] [address] 02/10/2024 9:00 AM EDT Appointment Vascular Lab [facility] [address] [place] [address] 02/10/2024 10:00 AM EDT Office Visit Vascular Surg [facility] [address] [place] [address] Margarito Cabrera MD [address] [place] [address] 02/13/2024 9:00 AM EDT Imaging Radiology [facility] [address] [address] 04/11/2024 1:20 PM EST Office Visit Family Practice [facility] [address] [place] [address] Nicol Watson, DO [address] [place] [address] 08/13/2024 11:40 AM EDT Office Visit Family Practice [facility] [address] [place] [address] Nicol Watson, DO [address] [place] [address] Scheduled Procedures Name Priority Associated Diagnoses Date/Ti me INJECTION SPINE LUMBAR OR SACRAL Lumbar radiculopathy COLONOSCOPY FLEXIBLE PROXIMAL DIAGNOSTIC Recall History of colon polyps Health Maintenance Due Date Last Done Comments Cologuard 1994 Sigmoidoscopy 1994 Fecal Occult Blood Test 02/03/2001 02/04/2000, 02/02 Adult Wellness Visit 01/25/2022 01/25/2021 COVID-19 Vaccine ( season) 2022 02/06/2022, 05/11/2021, 12/13/2020, Additional history exists Depression Screening 05/17/2023 05/17/2022 Colonoscopy 11/03/2023 11/02/2022, 0710/2022, 05/07/2022, Additional history exists Colorectal Cancer Screening 11/03/2023 Influenza Vaccine (FLU shot) (#1) 2023 01/02/2023, 02/21/2022, 02/21/2022, Additional history exists GFR 12/04/2024 12/05/2023, 10/27, 2023, Additional history exists Albumin/Creatinine Ratio 05/17/2025 05/17/2022, 07/30 DTaP,Tdap,and Td Vaccines (4 - Td or Tdap) 01/12/2030 01/13/2020, 06/08/2019, [...] this encounter Medical Devices Implanted Type Area B And B Gang Worker Device Identifier Shelf Expiration Date Model / Serial / Lot Stent Main Body Zyic-28-35-Zt - [id number] Implanted:Qty: 1 on 06/10/2014 by Ronal Gallegos MD at OR [facility] Aorta [employer] 04/07/2016 TFFB-24-8 2-ZT / / Graft Iliac Leg Spirlz 34w65lg - [id number] Implanted:Qty: 1 on 06/10/2014 by Ronal Gallegos MD at OR [facility] Right: Aorta [employer] 10/09/2015 [id number] / / [id number] Description: Graft Iliac Leg Spirlz 88p04wk - [id number] Implanted:Qty: 1 on 06/10/2014 by Ronal Gallegos MD at OR [facility] Right: Femoral Artery [employer] 11/07/2016 [id number] / / [id number] Stent Polmer 29mm P3110 - [id number] Implanted:Qty: 1 on 06/10/2014 by Ronal Gallegos MD at OR [facility] N/A: Aorta JNJ : CORDIS ENDOVASCULAR 07/26/2018 P3110 / / [id number] Codman Orbit Galaxy Coil 2.5mm X 3.5cm Implanted:Qty: 1 on 09/12/2015 by Arik Shin MD at OR [facility] Left: Head LENORA [employer] LENORA CODMAN 02/26/2017 [id number] / [id number] / [id number] Description:COMPLEX XTRASOFT detachable coil deployed left internal carotid artery Codman Orbit Galaxy Coil 2.5mm X 2.5cm Implanted:Qty: 1 on 09/12/2015 by Arik Shin MD at OR [facility] Left: Head LENORA & LENORA CODMAN 01/27/2016 [id number] / [id number] / [id number] Description:COMPLEX XTRASOFT detachable coil deployed left internal carotid artery aneurysm Codman [place] 2 Stent 4mm X 30mm Implanted:Qty: 1 on 09/12/2015 by Arik Shin MD at OR [facility] Left: Head LENORA & LENORA DEPUY 03/26/2018 [id number] / [id number] / [id number] Description:Vascular reconst ruction device deployed in left internal carotid artery Codman Orbit Galaxy Coil 6mm X 20cm Implanted:Qty: 1 on 09/12/2015 by Arik Shin MD at OR [facility] Left: Head LENORA & LENORA [facility] 09/26/2016 [id number] / [id number] / [id number] Description:COMPLEX FILL det achable coil deployed left internal carotid artery aneurysm Codman Orbit Galaxy Coil 4mm X 10cm Implanted:Qty: 1 on 09/12/2015 by Arik Shin MD at OR [facility] Left: Head LENORA & LENORA [facility] 10/27/2015 [id number] / [id number] / [id number] Description:COMPLEX XTRASOFT detachable coil deployed left internal carotid artery aneurysm Codman Orbit Galaxy Coil 3.5mm X 9cm Implanted:Qty: 1 on 09/12/2015 by Arik Shin MD at OR [facility] Left: Head LENORA & LENORA [facility] 12/28/2015 [id number] / [id number] / [id number] Description:COMPLEX XTRASOFT detachable coil deployed left internal carotid artery aneurysm Codman Orbit Galaxy Coil 3mm X 6cm Implanted:Qty: 1 on 09/12/2015 by Arik Shin MD at OR [facility] Left: Head LENORA & LENORA CODMAN 04/28/2017 [id number] / [id number] / [id number] Description:COMPLEX XTRASOFT detachable coil deployed left internal carotid artery aneurysm Lens Intraoc 21.0 - [id number] - [id number] Implanted:Qty: 1 on 11/08/2020 by Yuri Bradley MD at OR [facility] Left: Eye BAUSCH & LOMB 06/26/2025 [id number] / [id number] / [id number] Lens Intraoc 20.5 - [id number] - [id number] Implanted:Qty: 1 on 11/22/2020 by Yuri Bradley MD at OR [facility] Right: Eye BAUSCH & LOMB 07/27/2025 [id number] / [id number] Clip Quick 2.8mm 230cm - [id number] Implanted:Qty: 3 on 03/29/2021 by Luciana Fernandez MD at ENDOSCOPY [facility] [employer] 08/27/2023 HX-202UR. A / / Sureclip 16mm 235cm - [id number] Implanted:Qty: 2 on 05/07/2022 by Luciana Fernandez MD at ENDOSCOPY [facility] Colon MICRO TECH ENDOSCOPY 07/06/2024 [id number] / / Power Port 8fr Sngl Lumen Plas - [id number] Implanted:Qty: 1 on 01/30/2023 by Koko Snatiago MD at OR [facility] N/A: Chest CR BARD : PERIPHERAL VASCULAR 07/27/2024 [id number] / / [id number] Power Port 8fr Sngl Lumen Plas - [id number] Implanted:Qty: 1 on 01/30/2023 by Koko Santiago MD at [facility] CR BARD : PERIPHERAL VASCULAR [id number] 07/27/2024 [id number] / / [id number] documented as of this encounter Visit Diagnoses Diagnosis COVID-19 virus infection- Primary documented in this encounter Advance Directives * Full Code (Latest Code Status on File) Date Activated Date Inactivated Comments 09/12/2015 11:01 AM 09/13/2015 2:50 PM This order reflects the patients wishes and were consensually agreed upon. * Full Code Date Activated Date Inactivated Comments 06/10/2014 10:48 AM 06/11/2014 8:37 PM This order reflects the patients wishes and were consensually agreed upon. Care Teams Supervisor Car And Yard Relationship Specialty Start Date End Date Nicol Watson DO [address] [place] [address] PCP - General Family Medicine 04/13/19 documented as of this encounter
--- OUTSIDE RECORDS SUMMARY | 2024-02-19 09:24 | External Medical Summary | Summary of Care ---
Author Name Unknown Organization [facility] Address [address] [place] [address] Phone [phone] Care Team Providers Care Distillery Worker Name Role Phone Watson Mauro Leonardogordy Primary Care Provider Reason for Visit * Reason Onset Date Comments Medication Refill 12/27/2023 Encounter Details Date Type Department Care Team (Late st Contact Info) Description 12/27/2023 Refill Hematology/Oncology [facility] [address] [facility] [place] [phone] Roberta La MD [address] [facility] [place] [address] Allergies Active Allergy Reactions Criticality Noted Date Comments Aspirin Bleeding High 11/26/2011 Significant hemorroidal bleed on aspirin,high doses Duloxetine Hcl Hypertension 01/26/2020 documented as of this encounter (statuses as of 12/27/2023) Medications Medication Sig Dispensed Refills Start Date [...] as of this encounter (statuses as of 12/27/2023) Active Problems Problem Noted Date Diagnosed Date Malignant neoplasm of left lung 08/23/2023 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 01/21/2023 Encounter for antineoplastic chemotherapy 2022 Medical marijuana use 08/26/2021 CKD (chronic kidney disease), stage II 2 Overview: EGFR 72 Lumbar radiculopathy 05/27/2019 Atherosclerosis of [place] co ronary artery of jena heart with angina pectoris 05/05/2019 History of colon polyps 08/12/2018 ACEI/ARB contraindicated 09/21/2016 Carotid aneurysm, left 09/13/2015 Overview: S/p coil embolization Cerebral aneurysm, nonruptured 09/05/2015 AAA (abdominal aortic aneurysm) 06/20/2015 Overview: S/p repair Bilateral carotid artery disease 06/20/2015 Medical home patient encounter 05/19/2014 Hypertriglyceridemia 05/16/2012 CORON ATHEROSCL [place] CORON VESSEL 07/11/2010 Dyslipidemia, goal LDL below [...] as of this encounter (statuses as of 12/27/2023) Resolved Problems Problem Noted Date Diagnosed Date [...] as of this encounter (statuses as of 12/27/2023) Immunizations Name Administration Dates Next Due COVID-19 [...] Miscellaneous Notes * Telephone Encounter - Tia Berrios, textile science technician - 12/27/2023 9:31 AM EDT Pt calling to request prochlorperazine. Informed pt that RX is available at their pharmacy. Pt verbalized understanding and stated they will check with their pharmacy regarding this medication. Thank you, Tia Berrios Field Sales Agent [facility] ([facility] (formerly Telepharmacy) 12/27/2023,9:31 AM documented in this encounter Plan of Treatment Upcoming Encounters Date Type Department Care Team (Late st Contact Info) Description 01/16/2024 7:40 AM EDT Laboratory Laboratory [facility] [place] [address] [place] [phone] Diane, Lab [facility] [address] [facility] [place] [address] 01/16/2024 8:15 AM EDT Office Visit Hematology/Oncology [facility] [place] [address] [place] [phone] Lasha Christine MD [address] [place] [address] 01/16/2024 8:45 AM EDT Hem/Onc Treatment Hematology/Oncology Treatment, [place] [address] [place] [phone] Diane, Chair 7 Hem Onc [facility] [address] [facility] [place] [address] 02/10/2024 9:00 AM EDT Appointment Vascular Lab [place] [address] [place] [address] 02/10/2024 10:00 AM EDT Office Visit Vascular Surg [facility] [address] [place] [address] Margarito Cabrera MD [address] [place] [address] 02/13/2024 9:00 AM EDT Imaging Radiology [facility] [address] [place] [address] 04/11/2024 1:20 PM EST Office Visit Family Practice [facility] [address] [place] [address] Mauro Watson, DO [address] [place] [address] 08/13/2024 11:40 AM EDT Office Visit Family Practice [facility] [address] [place] [address] Mauro Watson, DO [address] [place] [address] Scheduled Procedures Name Priority Associated Diagnoses Date/Ti [...] this encounter Medical Devices Implanted Type Area Cutlet Maker Pork Device Identifier Shelf Expiration Date Model / Serial / Lot Stent Main Body [id number]-82-93-[id number] - [id number] Implanted:Qty: 1 on 06/10/2014 by Ronal Gallegos MD [place] [facility] Aorta [employer] 04/07/2016 TFFB-24-8 2-ZT / / Graft Iliac Leg Spirlz [id number] - [id number] Implanted:Qty: 1 on 06/10/2014 by Ronal Gallegos MD [place] [facility] Right: Aorta [employer] 10/09/2015 [id number] / / [id number] Description: Graft Iliac Leg Spirlz 66z54kb - [id number] Implanted:Qty: 1 on 06/10/2014 by Ronal Gallegos MD [place] [facility] Right: Femoral Artery [employer] 11/07/2016 [id number] / / [id number] Stent Polmer 29mm P3110 - [id number] Implanted:Qty: 1 on 06/10/2014 by Ronal Gallegos MD [place] [facility] N/A: Aorta JNJ : CORDIS ENDOVASCULAR 07/26/2018 [id number] / / [id number] Codman Orbit Galaxy Coil 2.5mm X 3.5cm Implanted:Qty: 1 on 09/12/2015 by Arik Shin MD at [place] [facility] Left: Head LENORA [employer] LENORA CODMAN 02/26/2017 [id number] / [id number] / [id number] Description:COMPLEX XTRASOFT detachable coil deployed left internal carotid artery Codman Orbit Galaxy Coil 2.5mm X 2.5cm Implanted:Qty: 1 on 09/12/2015 by Arik Shin MD at [place] [facility] Left: Head LENORA & LENORA CODMAN 01/27/2016 [id number] / [id number] / [id number] Description:COMPLEX XTRASOFT detachable coil deployed left internal carotid artery aneurysm Codman [place] 2 Stent 4mm X 30mm Implanted:Qty: 1 on 09/12/2015 by Arik Shin MD at [place] [facility] Left: Head LENORA & LENORA DEPUY 03/26/2018 [id number] / [id number] / [id number] Description:Vascular reconst ruction device deployed in left internal carotid artery Codman Orbit Galaxy Coil 6mm X 20cm Implanted:Qty: 1 on 09/12/2015 by Arik Shin MD at [place] [facility] Left: Head LENORA & LENORA [facility] 09/26/2016 [id number] / [id number] / [id number] Description:COMPLEX FILL det achable coil deployed left internal carotid artery aneurysm Codman Orbit Galaxy Coil 4mm X 10cm Implanted:Qty: 1 on 09/12/2015 by Arik Shin MD at [place] [facility] Left: Head LENORA & LENORA [facility] 10/27/2015 [id number] / [id number] / [id number] Description:COMPLEX XTRASOFT detachable coil deployed left internal carotid artery aneurysm Codman Orbit Galaxy Coil 3.5mm X 9cm Implanted:Qty: 1 on 09/12/2015 by Arik Shin MD at [place] [facility] Left: Head LENORA & LENORA [facility] 12/28/2015 [id number] / [id number] / [id number] Description:COMPLEX XTRASOFT detachable coil deployed left internal carotid artery aneurysm Codman Orbit Galaxy Coil 3mm X 6cm Implanted:Qty: 1 on 09/12/2015 by Arik Shin MD at [place] [facility] Left: Head LENORA & LENORA CODMAN 04/28/2017 [id number] / [id number] / [id number] Description:COMPLEX XTRASOFT detachable coil deployed left internal carotid artery aneurysm Lens Intraoc 21.0 - [id number] - [id number] Implanted:Qty: 1 on 11/08/2020 by Yuri Bradley MD at OR [facility] Left: Eye BAUSCH & LOMB 06/26/2025 [id number] / [id number] Lens Intraoc 20.5 - [id number] - [id number] Implanted:Qty: 1 on 11/22/2020 by Yuri Bradley MD at OR [facility] Right: Eye BAUSCH & LOMB 07/27/2025 [id number] / [id number] Clip Quick 2.8mm 230cm - [id number] Implanted:Qty: 3 on 03/29/2021 by Luciana Fernandez MD at ENDOSCOPY [facility] [employer] 08/27/2023 HX-202UR. A / / Sureclip 16mm 235cm - [id number] Implanted:Qty: 2 on 05/07/2022 by Luciana Fernandez MD at ENDOSCOPY [facility] Colon MICRO TECH ENDOSCOPY 07/06/2024 [id number] / / Power Port 8fr Sngl Lumen Plas - [id number] Implanted:Qty: 1 on 01/30/2023 by Koko Santiago MD at OR [facility] N/A: Chest CR BARD : PERIPHERAL VASCULAR 07/27/2024 [id number] / / [id number] Power Port 8fr Sngl Lumen Plas - [id number] Implanted:Qty: 1 on 01/30/2023 by Koko Santiago MD at [facility] CR BARD : PERIPHERAL VASCULAR [id number] 07/27/2024 [id number] / / [id number] documented as of this encounter Advance Directives [...] and were consensually agreed upon. Care Teams Distillery Worker Relationship Specialty Start Date End Date Mauro Watson DO [address] [place] [address] PCP - General Family Medicine 04/13/19 documented as of this encounter
--- OUTSIDE RECORDS SUMMARY | 2024-02-19 09:24 | External Medical Summary ---
Author Name Unknown Address Unknown Organization K09:[facility] [place] [address] Laboratory Report Ordering Provider Test Date Status ANN KLEIN 12/26/2023 08:34:01 Final Observation Date Value Abnormality Reference (Units ) Status SYNC LEUKOCYTES IN BLOOD BY AUTOMATED COUNT 12/26/2023 08:34:01 10.18 4.00-10.80 (K/uL) Final Segs 12/26/2023 08:34:01 84.5 Above high normal 40.0-75.0 (%) Final Lymphs % 12/26/2023 08:34:01 11.0 Below low normal 18.0-42.0 (%) Final Monos 12/26/2023 08:34:01 4.3 1.0-11.0 (%) Final Eosinophils 12/26/2023 08:34:01 0.0 0.0-6.0 (%) Final Basos 12/26/2023 08:34:01 0.2 0.0-2.0 (%) Final Absolute Segs 12/26/2023 08:34:01 8.60 Above high normal 1.80-7.70 (K/uL) Final Lymphs, absolute 12/26/2023 08:34:01 1.12 1.00-4.80 (K/ul) Final Monos, Abs 12/26/2023 08:34:01 0.44 0.00-1.10 (K/uL) Final Eos, Abs 12/26/2023 08:34:01 0.00 0.00-0.70 (K/uL) Final Basos, Abs 12/26/2023 08:34:01 0.02 0.00-0.20 (K/uL) Final Performing Location [facility] [place] [address]
--- OUTSIDE RECORDS SUMMARY | 2024-02-19 09:24 | External Medical Summary | Summary of Care ---
Author Name Unknown Organization [facility] Address [address] [place] [address] Phone [phone] Care Team Providers Care Felt Machine Mechanic Name Role Phone Mauro Watson DO Primary Care Provider Reason for Visit * Reason Comments Chemotherapy C7 D1 Alimta only. * Episode Based Medications (Routine) - Authorized Specialty Diagnoses / Procedures Referred By Contac t Referred To Contact Diagnoses Encounter for antineoplastic chemotherapy 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) Malignant neoplasm of left lung, unspecified part of lung (HCC) Procedures [place] INJ. PEMETREXED NOS 10MG [place] CARBOPLATIN INJECTION [place] FOSAPREPITANT INJECTION Lasha Christine MD [address] [facility] [place] [address] Anc Hem/Onc [address] [phone] Referral ID Status Reason Start Date Expiration Date V isits Requested Visits Authorized [id number] Authorized 08/22/2023 04/28/2099 999 99 Encounter Details Date Type Department Care Team (Latest Contact Info) Description 12/26/2023 9:30 AM EDT Hem/Onc Treatment Hematology/Oncolog y Treatment, [address] [phone] Diane Chair 1 Hem Onc [address] [place] [address] Encounter for antineoplastic chemotherapy*; 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); Malignant neoplasm of left lung, unspecified part of lung (HCC) Allergies Active Allergy Reactions Criticality Noted Date Comments Aspirin Bleeding High 11/26/2011 Significant hemorroidal bleed on aspirin,high doses Duloxetine Hcl Hypertension 01/26/2020 documented as of this encounter (statuses as of 12/26/2023) Medications Medication Sig Dispensed Refills Start Date [...] as of this encounter (statuses as of 12/26/2023) Active Problems Problem Noted Date Diagnosed Date Malignant neoplasm of left lung 08/23/2023 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 01/21/2023 Encounter for antineoplastic chemotherapy 2022 Medical marijuana use 08/26/2021 CKD (chronic kidney disease), stage II Overview: EGFR 72 Lumbar radiculopathy 05/27/2019 Atherosclerosis of [place] co ronary artery of [place] heart with angina pectoris 05/05/2019 History of colon polyps 08/12/2018 ACEI/ARB contraindicated 09/21/2016 Carotid aneurysm, left 09/13/2015 Overview: S/p coil embolization Cerebral aneurysm, nonruptured 09/05/2015 AAA (abdominal aortic aneurysm) 06/20/2015 Overview: S/p repair Bilateral carotid artery disease 06/20/2015 Medical home patient encounter 05/19/2014 Hypertriglyceridemia 05/16/2012 CORON ATHEROSCL [place] CORON VESSEL 07/11/2010 Dyslipidemia, goal LDL below [...] as of this encounter (statuses as of 12/26/2023) Resolved Problems Problem Noted Date Diagnosed Date [...] as of this encounter (statuses as of 12/26/2023) Immunizations Name Administration Dates Next Due COVID-19 [...] State [facility] [place] [address] [place] [phone] [place] [address] 01/16/2024 8:15 AM EDT Office Visit Hematology/Oncology [facility] [place] [address] [place] [phone] Lasha Christine MD [address] [place], [place] [address] 01/16/2024 8:45 AM EDT Hem/Onc Treatment Hematology/Oncology Treatment, [place] [address] [place], [place] [phone] Park, Chair 7 Hem Onc [address] [facility] [address] 02/10/2024 9:00 AM EDT Appointment Vascular Lab [place] [address] [place] [address] 02/10/2024 10:00 AM EDT Office Visit Vascular Surg [place] [address] [place] [address] Margarito Cabrera MD [address] [place] [address] 02/13/2024 9:00 AM EDT Imaging Radiology [facility] 1st [facility] [address] [place] [address] 04/11/2024 1:20 PM EST Office Visit [facility] [address] [place] [address] Mauro Watson, [address] [place] [address] 08/13/2024 11:40 AM EDT Office Visit [facility] [address] [place] [address] Mauro Watson, [address] [place] [address] Scheduled Procedures Name Priority Associated Diagnoses Date/Ti [...] this encounter Medical Devices Implanted Type Area Home Office Claim Specialist Device Identifier Shelf Expiration Date Model / Serial / Lot Stent Main Body Rgiw-02-63-Zt - [id number] Implanted:Qty: 1 on 06/10/2014 by Ronal Gallegos MD [place] [facility] Aorta [employer] 04/07/2016 TFFB-24-8 2-ZT / / Graft Iliac Leg Spirlz [id number] - [id number] Implanted:Qty: 1 on 06/10/2014 by Ronal Gallegos MD [place] [facility] Right: Aorta [employer] 10/09/2015 [id number] / / [id number] Description: Graft Iliac Leg Spirlz 89o30mz - [id number] Implanted:Qty: 1 on 06/10/2014 by Ronal Gallegos MD [place] [facility] Right: Femoral Artery [employer] 11/07/2016 [id number] / / [id number] Stent Polmer 29mm P3110 - [id number] Implanted:Qty: 1 on 06/10/2014 by Ronal Gallegos MD [place] [facility] N/A: Aorta JNJ : CORDIS ENDOVASCULAR 07/26/2018 P3110 / / [id number] Codman Orbit Galaxy Coil 2.5mm X 3.5cm Implanted:Qty: 1 on 09/12/2015 by Arik Shin MD at [place] [facility] Left: Head LENORA & LENORA CODMAN 02/26/2017 [id number] / [id number] / [id number] Description:COMPLEX XTRASOFT detachable coil deployed left internal carotid artery Codman Orbit Galaxy Coil 2.5mm X 2.5cm Implanted:Qty: 1 on 09/12/2015 by Arik Shin MD at [place] [facility] Left: Head LENORA & LENORA CODMAN 01/27/2016 [id number] / [id number] / [id number] Description:COMPLEX XTRASOFT detachable coil deployed left internal carotid artery aneurysm Codman [place] 2 Stent 4mm X 30mm Implanted:Qty: 1 on 09/12/2015 by Arik Shin MD at [place] [facility] Left: Head LENORA & LENORA DEPUY 03/26/2018 [id number] / [id number] / [id number] Description:Vascular reconst ruction device deployed in left internal carotid artery Codman Orbit Galaxy Coil 6mm X 20cm Implanted:Qty: 1 on 09/12/2015 by Arik Shin MD at [place] [facility] Left: Head LENORA [employer] LENORA CODMAN 09/26/2016 [id number] / [id number] / [id number] Description:COMPLEX FILL det achable coil deployed left internal carotid artery aneurysm Codman Orbit Galaxy Coil 4mm X 10cm Implanted:Qty: 1 on 09/12/2015 by Arik Shin MD at [place] [facility] Left: Head LENORA & LENORA CODMAN 10/27/2015 [id number] / [id number] / [id number] Description:COMPLEX XTRASOFT detachable coil deployed left internal carotid artery aneurysm Codman Orbit Galaxy Coil 3.5mm X 9cm Implanted:Qty: 1 on 09/12/2015 by Arik Shin MD at [place] [facility] Left: Head LENORA & LENORA CODMAN 12/28/2015 [id number] / [id number] / [id number] Description:COMPLEX XTRASOFT detachable coil deployed left internal carotid artery aneurysm Codman Orbit Galaxy Coil 3mm X 6cm Implanted:Qty: 1 on 09/12/2015 by Arik Shin MD at [place] [facility] Left: Head LENORA & LENORA CODMAN 04/28/2017 [id number] / [id number] / [id number] Description:COMPLEX XTRASOFT detachable coil deployed left internal carotid artery aneurysm Lens Intraoc 21.0 - [id number] - [id number] Implanted:Qty: 1 on 11/08/2020 by Yuri Bradley MD at OR [facility] Left: Eye BAUSCH & LOMB 06/26/2025 [id number] / [id number] / [id number] Lens Intraoc 20.5 - [id number] - [id number] Implanted:Qty: 1 on 11/22/2020 by Yuri Bradley MD at OR [facility] Right: Eye BAUSCH & LOMB 07/27/2025 [id number] / [id number] / [id number] Clip Quick 2.8mm 230cm - [id number] Implanted:Qty: 3 on 03/29/2021 by Luciana Fernandez MD at ENDOSCOPY [facility] [employer] 08/27/2023 HX-202UR. A / / Sureclip 16mm 235cm - [id number] Implanted:Qty: 2 on 05/07/2022 by Luciana Fernandez MD at ENDOSCOPY [facility] Colon MICRO TECH ENDOSCOPY 07/06/2024 [id number] / / Power Port 8fr Sngl Lumen Plas - [id number] Implanted:Qty: 1 on 01/30/2023 by Koko Santiago MD at OR [facility] N/A: Chest CR BARD : PERIPHERAL VASCULAR 07/27/2024 [id number] / / [id number] Power Port 8fr Sngl Lumen Plas - [id number] Implanted:Qty: 1 on 01/30/2023 by Koko Santiago MD at OR [facility] CR BARD : PERIPHERAL VASCULAR [id number] 07/27/2024 [id number] / / [id number] documented as of this encounter Visit Diagnoses [...] ONCE PRN Other, Hypersensitivity Reaction, Starting on Sat12/26/23 at 1006, Until Sat12/27/23 at 1005, For 24 hours EPINEPHrine 1 MG/ML inj 0.3 mg 0.3 mg, Intramuscular, ONCE PRN Other, Hypersensitivity Reaction or Anaphylaxis, Starting on Sat12/26/23 at 1006, Until Sat12/27/23 at 1005, For 24 hours hEParin 100 UNIT/ML Lock Flush inj 500 Units 500 Units (5 mL), IV Lock, PRN Other, IV Flush, Starting on Sat12/26/23 at 1006, Until Sat12/27/23 at 1005, For 24 hours, Do not flush if lock, PICC, or central line not in place; IV infusing or unable to flush. Given 12/26/2023 12:47 PM EDT 500 Units Hydrocortisone Sod Suc (PF) (Solu-Cortef) inj 100 mg 100 mg, IV Push, ONCE PRN Other, Hypersensitivity Reaction, Starting on Sat12/26/23 at 1006, Until Sat12/27/23 at 1005, For 24 hours LORAzepam (Ativan) tab 0.5 mg 0.5 mg, Oral, ONCE PRN Anxiety, Nausea, Starting on Sat12/26/23 at 1115, Until Discontinued NSS infusion Intravenous, at 50 mL/hr, PRN, Starting on Sat12/26/23 at 1115, Until Discontinued, Maintenance line Start Infusion 12/26/2023 10:42 AM EDT 50 mL/hr oxygen GAS Inhalation, OXYGEN, First dose on Sat12/26/23 at 1045, Until Discontinued, Device/Managed by: Low Flow Device, [...] Push, PRN Other, IV Flush, Starting on Sat12/26/23 at 1006, Until Sat12/27/23 at 1005, For 24 hours, Do not flush if lock, PICC, or central line not in place; IV infusing or unable to flush. Given 12/26/2023 12:46 PM EDT 20 mL Inactive Administered Medications - up to 3 most recent administrations Medication Order MAR Action Action Date Dose Rate Site NSS infusion FOR HYDRATION Intravenous, at 500 mL/hr Administer over 2 Hours, ONCE PRN, 1 dose, Starting on Sat12/26/23 at 1006, Until Sat12/26/23 at 1236 Start Infusion 12/26/2023 10:39 AM EDT 1,000 mL 500 mL/hr ondansetron (Zofran) tab 8 mg 8 mg, Oral, ONCE, On Sat12/26/23 at 1045, For 1 dose Given 12/26/2023 10:34 AM EDT 8 mg PEMEtrexed Disodium (Alimta) 900 mg in NSS 100 mL infusion 900 mg (rounded from 925 mg = 500 mg/m2 1.85 m2 Treatment Plan BSA from Recorded weight), IV Piggyback, ONCE, 1 dose, On Lizz 12/26/23 at 1100, Administer over 10 Minutes Start Infusion 12/26/2023 11:34 AM EDT 900 mg 630 mL/hr documented in this encounter [...] and were consensually agreed upon. Care Teams Felt Machine Mechanic Relationship Specialty Start Date End Date Mauro Watson DO [address] [place] [address] PCP - General Family Medicine 04/13/19 documented as of this encounter
--- OUTSIDE RECORDS SUMMARY | 2024-02-19 09:24 | External Medical Summary | Summary of Care ---
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 05/05/2019 History of [...] Description 01/16/2024 7:40 AM EDT Laboratory Laboratory [facility] [place] [address] [place] [phone] Zeyad Contreras [address] [place] [address] 01/16/2024 8:15 AM EDT Office Visit Hematology/Oncology [facility] [address] [facility] [place] [phone] Lasha Christine MD [address] [facility] [place] [address] 01/16/2024 8:45 AM EDT Hem/Onc Treatment [facility] [place] [facility] [phone] Diane, Chair 7 Hem Onc [facility] [place] [address] 02/10/2024 9:00 AM EDT Appointment Vascular Lab [address] [address] 02/10/2024 10:00 AM EDT Office Visit Vascular Surg [address] [address] Margarito Cabrera MD [address] [place] [address] 02/13/2024 9:00 AM EDT Imaging Radiology [facility] 1st [facility] [address] [place] [address] 04/11/2024 1:20 PM EST Office Visit [facility] [address] [place] [address] Mauro Watson, [address] [place] [address] 08/13/2024 11:40 AM EDT Office Visit [facility] [address] [place] [address] Mauro Watson, [address] [place] [address] Scheduled Procedures Name Priority Associated Diagnoses Date/Ti [...] this encounter Medical Devices Implanted Type Area Public Finance Specialist Device Identifier Shelf Expiration Date Model / Serial / Lot Stent Main Body Azjc-11-40-Zt - [id number] Implanted:Qty: 1 on 06/10/2014 by Ronal Gallegos MD at [place] [facility] Aorta [employer]OOK GROUP 04/07/2016 TFFB-24-8 2-ZT / / Graft Iliac Leg Spirlz 29u21qf - [id number] Implanted:Qty: 1 on 06/10/2014 by Ronal Gallegos MD at OR [facility] Right: Aorta [employer]OOK GROUP 10/09/2015 [id number] / / [id number] Description: Graft Iliac Leg Spirlz 77m87my - [id number] Implanted:Qty: 1 on 06/10/2014 by Ronal Gallegos MD at OR [facility] Right: Femoral Artery [employer] 11/07/2016 [id number] / / [id number] Stent Polmer 29mm P3110 - [id number] Implanted:Qty: 1 on 06/10/2014 by Ronal Gallegos MD at OR [facility] N/A: Aorta JNJ : CORDIS ENDOVASCULAR 07/26/2018 P3110 / / [id number] Codman Orbit Galaxy Coil 2.5mm X 3.5cm Implanted:Qty: 1 on 09/12/2015 by Arik Shin MD at OR [facility] Left: Head LENORA & LENORA CODMAN 02/26/2017 [id number] / [id number] / [id number] Description:COMPLEX XTRASOFT detachable coil deployed left internal carotid artery Codman Orbit Galaxy Coil 2.5mm X 2.5cm Implanted:Qty: 1 on 09/12/2015 by Arik Shin MD at OR [facility] Left: Head LENORA & LENORA CODMAN 01/27/2016 [id number] / [id number] / [id number] Description:COMPLEX XTRASOFT detachable coil deployed left internal carotid artery aneurysm Codman [place] 2 Stent 4mm X 30mm Implanted:Qty: 1 on 09/12/2015 by Arik Shin MD at OR [facility] Left: Head LENORA & LENORA DEPUY 03/26/2018 [id number] / [id number] / [id number] Description:Vascular reconst ruction device deployed in left internal carotid artery Codman Orbit Galaxy Coil 6mm X 20cm Implanted:Qty: 1 on 09/12/2015 by Arik Shin MD at OR [facility] Left: Head LENORA & LENORA CODMAN 09/26/2016 [id number] / [id number] / [id number] Description:COMPLEX FILL det achable coil deployed left internal carotid artery aneurysm Codman Orbit Galaxy Coil 4mm X 10cm Implanted:Qty: 1 on 09/12/2015 by Arik Shin MD at OR [facility] Left: Head LENORA & LENORA CODMAN 10/27/2015 [id number] 0 / [id number] / [id number] Description:COMPLEX XTRASOFT detachable coil deployed left internal carotid artery aneurysm Codman Orbit Galaxy Coil 3.5mm X 9cm Implanted:Qty: 1 on 09/12/2015 by Arik Shin MD at OR [facility] Left: Head LENORA & LENORA CODMAN 12/28/2015 [id number] / [id number] / [id number] Description:COMPLEX XTRASOFT detachable coil deployed left internal carotid artery aneurysm Codman Orbit Galaxy Coil 3mm X 6cm Implanted:Qty: 1 on 09/12/2015 by Arik Shin MD at OR [facility] Left: Head LENORA & LENORA CODMAN 04/28/2017 [id number] / [id number] / [id number] Description:COMPLEX XTRASOFT detachable coil deployed left internal carotid artery aneurysm Lens Intraoc 21.0 - [id number] - [id number] Implanted:Qty: 1 on 11/08/2020 by Yuri Bradley MD at OR [facility] Left: Eye BAUSCH & LOMB 06/26/2025 [id number] / [id number] / [id number] Lens Intraoc 20.5 - [id number] - [id number] Implanted:Qty: 1 on 11/22/2020 by Yuri Bradley MD at OR [facility] Right: Eye BAUSCH & LOMB 07/27/2025 [id number] / [id number] / [id number] Clip Quick 2.8mm 230cm - [id number] Implanted:Qty: 3 on 03/29/2021 by Luciana Fernandez MD at ENDOSCOPY [facility] [employer] 08/27/2023 HX-202UR. A / / Sureclip 16mm 235cm - [id number] Implanted:Qty: 2 on 05/07/2022 by Luciana Fernandez MD at ENDOSCOPY [facility] Colon MICRO TECH ENDOSCOPY 07/06/2024 [id number] / / Power Port 8fr Sngl Lumen Plas - [id number] Implanted:Qty: 1 on 01/30/2023 by Koko Santiago MD at OR [facility] N/A: Chest CR BARD : PERIPHERAL VASCULAR 07/27/2024 [id number] / / [id number] Power Port 8fr Sngl Lumen Plas - [id number] Implanted:Qty: 1 on 01/30/2023 by Koko Santiago MD at OR [facility] CR BARD : PERIPHERAL VASCULAR [id number] 07/27/2024 [id number] / / [id number] documented as of this encounter Advance Directives [...] and were consensually agreed upon. Care Teams Supply Aide Relationship Specialty Start Date End Date Mauro Watson DO [address] [place] [address] [place] [address] PCP - General Family Medicine 04/13/19 documented as of this encounter
--- OUTSIDE RECORDS SUMMARY | 2024-02-19 09:24 | External Medical Summary | Summary of Care ---
Author Name Unknown Organization [facility] Address [address] [place] [address] Phone [phone] Care Team Providers Care Cylinder Honer Name Role Phone Mauro Watson DO Primary Care Provider Reason for Visit * Reason Comments Outpatient Testing Encounter Details Date Type Department Care Team (Latest Contact Info) Description 12/26/2023 8:30 AM EDT Laboratory Laboratory [facility] [place] [address] [place] [phone] [place], Lab [address]enery [address] [place] [address] Cholangiocarcinoma (HCC); Encounter for antineoplastic chemotherapy; Metastatic [...] EGFR 72 Lumbar radiculopathy 05/27/2019 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 05/05/2019 History of colon polyps 08/12/2018 ACEI/ARB contraindicated 09/21/2016 Carotid aneurysm, left 09/13/2015 Overview: S/p coil embolization Cerebral aneurysm, nonruptured 09/05/2015 AAA (abdominal aortic aneurysm) 06/20/2015 Overview: S/p repair Bilateral carotid artery disease 06/20/2015 Medical home patient encounter 05/19/2014 Hypertriglyceridemia 05/16/2012 CORON ATHEROSCL [place] CORON VESSEL 07/11/2010 Dyslipidemia, goal LDL [...] Team (Late st Contact Info) Description 12/26/2023 9:30 AM EDT Hem/Onc Treatment Hematology/Oncology Treatment, [place] [address] [place] [phone] Diane, Chair 1 Hem Onc Sc[address] [place] [address] Arrived 01/16/2024 8:15 AM EDT Office Visit Hematology/Oncology [facility] Diane [place] [address] [facility] [place] [phone] Lasha Christine MD [address] [facility] [address] [place] [address] 02/10/2024 9:00 AM EDT Appointment Vascular Lab [place] [address] [place] [address] 02/10/2024 10:00 AM EDT Office Visit Vascular Surg [place] [address] [place] [address] Margarito Cabrera MD [address] [place] [address] 02/13/2024 9:00 AM EDT Imaging Radiology [address] [place] [address] 04/11/2024 1:20 PM EST Office Visit [facility] 132 [facility] [place] [address] Mauro Watson, [facility] [address] 08/13/2024 11:40 AM EDT Office Visit [facility] [address] [facility] [place] [address] Mauro Watson, [address] [facility] [address] Pending Results Name Type Priority Associated Diagnoses Date /Time CEA Lab STAT Cholangiocarcinoma (HCC) Encounter for antineoplastic chemotherapy 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) Other abnormal tumor markers 12/26/2023 8:34 AM EDT COMPREHENSIVE METABOLIC PANEL Lab STAT Cholangiocarcinoma (HCC) Encounter for antineoplastic chemotherapy 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) Other abnormal tumor markers 12/26/2023 8:34 AM EDT CBC WITH WBC DIFFERENTIAL Lab STAT Cholangiocarcinoma (HCC) Encounter for antineoplastic chemotherapy 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) Other abnormal tumor markers 12/26/2023 8:34 AM EDT CBC Lab STAT Cholangiocarcinoma (HCC) Encounter for antineoplastic chemotherapy 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) Other abnormal tumor markers 12/26/2023 8:34 AM EDT DIFFERENTIAL, AUTOMATED Lab STAT Cholangiocarcinoma (HCC) Encounter for antineoplastic chemotherapy 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) Other abnormal tumor markers 12/26/2023 8:34 AM EDT Scheduled Procedures Name Priority Associated [...] this encounter Medical Devices Implanted Type Area Reordering Clerk Device Identifier Shelf Expiration Date Model / Serial / Lot Stent Main Body Qdzy-89-05-Zt - [id number] Implanted:Qty: 1 on 06/10/2014 by Ronal [place]legos MD [place] [facility] Aorta [employer] 04/07/2016 TFFB-24-8 2-ZT / / Graft Iliac Leg Spirlz 60t86xj - [id number] Implanted:Qty: 1 on 06/10/2014 by Ronal Gallegos MD [place] [facility] Right: Aorta [employer] 10/09/2015 [id number] / / [id number] Description: Graft Iliac Leg Spirlz 78s25lc - [id number] Implanted:Qty: 1 on 06/10/2014 by Ronal Gallegos MD [place] [facility] Right: Femoral Artery [employer] 11/07/2016 [id number] / / [id number] Stent Polmer 29mm P3110 - [id number] Implanted:Qty: 1 on 06/10/2014 by Ronal Gallegos MD at [place] [facility] N/A: Aorta JNJ : CORDIS ENDOVASCULAR 07/26/2018 P3110 / / [id number] Codman Orbit Galaxy Coil 2.5mm X 3.5cm Implanted:Qty: 1 on 09/12/2015 by Arik Shin MD at [place] [facility] Left: Head LENORA & LENORA CODMAN 02/26/2017 [id number] / [id number] / [id number] Description:COMPLEX XTRASOFT detachable coil deployed left internal carotid artery Codman Orbit Galaxy Coil 2.5mm X 2.5cm Implanted:Qty: 1 on 09/12/2015 by Arik Shin MD at [place] [facility] Left: Head LENORA & LENORA CODMAN 01/27/2016 [id number] / [id number] / [id number] Description:COMPLEX XTRASOFT detachable coil deployed left internal carotid artery aneurysm Codman [place] 2 Stent 4mm X 30mm Implanted:Qty: 1 on 09/12/2015 by Arik Shin MD at [place] [facility] Left: Head LENORA & LENORA DEPUY 03/26/2018 [id number] / [id number] / [id number] Description:Vascular reconst ruction device deployed in left internal carotid artery Codman Orbit Galaxy Coil 6mm X 20cm Implanted:Qty: 1 on 09/12/2015 by Arik Shin MD at [place] [facility] Left: Head LENORA & LENORA CODMAN 09/26/2016 [id number] / [id number] / [id number] Description:COMPLEX FILL det achable coil deployed left internal carotid artery aneurysm Codman Orbit Galaxy Coil 4mm X 10cm Implanted:Qty: 1 on 09/12/2015 by Arik Shin MD at [place] [facility] Left: Head LENORA & LENORA [facility] 10/27/2015 [id number] 0 / [id number] / [id number] Description:COMPLEX XTRASOFT detachable coil deployed left internal carotid artery aneurysm Codman Orbit Galaxy Coil 3.5mm X 9cm Implanted:Qty: 1 on 09/12/2015 by Arik Shin MD at [place] [facility] Left: Head LENORA & LENORA CODMAN 12/28/2015 [id number] / [id number] / [id number] Description:COMPLEX XTRASOFT detachable coil deployed left internal carotid artery aneurysm Codman Orbit Galaxy Coil 3mm X 6cm Implanted:Qty: 1 on 09/12/2015 by Arik Shin MD at [place] [facility] Left: Head LENORA & LENORA CODMAN 04/28/2017 [id number] / [id number] / [id number] Description:COMPLEX XTRASOFT detachable coil deployed left internal carotid artery aneurysm Lens Intraoc 21.0 - [id number] - [id number] Implanted:Qty: 1 on 11/08/2020 by Yuri Bradley MD at OR [facility] Left: Eye BAUSCH & LOMB 06/26/2025 [id number] / [id number] Lens Intraoc 20.5 - [id number] - [id number] Implanted:Qty: 1 on 11/22/2020 by Yuri Bradley MD at OR [facility] Right: Eye BAUSCH & LOMB 07/27/2025 [id number] / [id number] Clip Quick 2.8mm 230cm - [id number] Implanted:Qty: 3 on 03/29/2021 by Luciana Fernandez MD at ENDOSCOPY [facility] [employer] 08/27/2023 HX-202UR. A / / Sureclip 16mm 235cm - [id number] Implanted:Qty: 2 on 05/07/2022 by Luciana Fernandez MD at ENDOSCOPY [facility] Colon MICRO TECH ENDOSCOPY 07/06/2024 [id number] / / Power Port 8fr Sngl Lumen Plas - [id number] Implanted:Qty: 1 on 01/30/2023 by Koko Santiago MD at OR [facility] N/A: Chest CR BARD : PERIPHERAL VASCULAR 07/27/2024 [id number] / / [id number] Power Port 8fr Sngl Lumen Plas - [id number] Implanted:Qty: 1 on 01/30/2023 by Koko Santiago MD at OR [facility] CR BARD : PERIPHERAL VASCULAR [id number] 07/27/2024 [id number] / / [id number] documented as of this encounter Visit Diagnoses [...] and were consensually agreed upon. Care Teams Cylinder Honer Relationship Specialty Start Date End Date Mauro Watson DO [address] [place] [address] PCP - General Family Medicine 04/13/19 documented as of this encounter
--- OUTSIDE RECORDS SUMMARY | 2024-02-19 09:24 | External Medical Summary ---
Author Name Unknown Address Unknown Organization K09:[facility] [place] [address] Laboratory Report Ordering Provider Test Date Status ANN KLEIN 12/26/2023 08:34:01 Final Observation Date Value Abnormality Reference (Units ) Status WBC, Total 12/26/2023 08:34:01 10.18 4.00-10.8 0 (K/uL) Final RBC 12/26/2023 08:34:01 2.78 4.50-5.25 (M/uL) Final Hemoglobin 12/26/2023 08:34:01 9.4 Below low normal 14 .0-16.8 (g/dL) Final HCT 12/26/2023 08:34:01 30.4 Below low normal 40. 0-48.4 (%) Final MCV 12/26/2023 08:34:01 109.4 82.0-99.5 (fL) Final MCH 12/26/2023 08:34:01 33.8 27.0-34.0 (pg) Final MCHC 12/26/2023 08:34:01 30.9 32.0-36.0 (g/dL) Final RDW 12/26/2023 08:34:01 18.5 11.5-15.5 (%) Final Platelets 12/26/2023 08:34:01 163 140-400 (K /uL) Final MPV 12/26/2023 08:34:01 11.4 6.6-11.1 ( fL) Final Performing Location [facility] [place] [address]
--- OUTSIDE RECORDS SUMMARY | 2024-02-19 09:24 | External Medical Summary | Summary of Care ---
Author Name Unknown Organization [facility] Address [address] [place] [address] Phone [phone] Care Team Providers Care Calciner Feeder Name Role Phone Mauro Watson DO Primary Care Provider Reason for Visit * Reason Comments Chemotherapy C7 D1 [place] only. * Episode Based Medications (Routine) - Authorized Specialty Diagnoses / Procedures Referred By Contac t Referred To Contact Diagnoses Encounter for antineoplastic chemotherapy 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) Malignant neoplasm of left lung, unspecified part of lung (HCC) Procedures NH INJ. PEMETREXED NOS 10MG NH CARBOPLATIN INJECTION NH FOSAPREPITANT INJECTION Lasha Christine MD [address] [place] [address] Anc Hem/Onc [address] [address] Referral ID Status Reason Start Date Expiration Date V isits Requested Visits Authorized [id number] Authorized 08/22/2023 04/28/2099 999 99 Encounter Details Date Type Department Care Team (Latest Contact Info) Description 12/26/2023 9:30 AM EDT Hem/Onc Treatment Hematology/Oncolog y Treatment, [address] [phone] Diane Chair 1 Hem Onc [address] [place] [address] Encounter for antineoplastic chemotherapy*; Metastatic carcinoma involving [...] Lumbar radiculopathy 05/27/2019 Atherosclerosis of [place] co ronary artery of [place] heart with angina pectoris 05/05/2019 History of colon polyps 08/12/2018 ACEI/ARB contraindicated 09/21/2016 Carotid aneurysm, left 09/13/2015 Overview: S/p coil embolization Cerebral aneurysm, nonruptured 09/05/2015 AAA (abdominal aortic aneurysm) 06/20/2015 Overview: S/p repair Bilateral carotid artery disease 06/20/2015 Medical home patient encounter 05/19/2014 Hypertriglyceridemia 05/16/2012 CORON ATHEROSCL [place] CORON VESSEL 07/11/2010 Dyslipidemia, goal LDL below [...] State Radha [place] [address] [place] [address] [place] [address] 01/16/2024 8:15 AM EDT Office Visit Hematology/Oncology [place] [facility] [place] [address] [place] [address] Lasha Christine MD [address] [place], [place] [address] 01/16/2024 8:45 AM EDT Hem/Onc Treatment Hematology/Oncology Treatment, [place] [address] [place], [place] [phone] Park, Chair 7 Hem Onc [address]en[address] [facility] [address] 02/10/2024 9:00 AM EDT Appointment Vascular Lab [place] [address] [place] [address] 02/10/2024 10:00 AM EDT Office Visit Vascular Surg [place] [address] [place] [address] Margarito Cabrera MD [address] [place] [address] 02/13/2024 9:00 AM EDT Imaging Radiology [facility] 1st [facility] [address] [place] [address] 04/11/2024 1:20 PM EST Office Visit [facility] [address] [place] [address] Mauro Watson, [address] [place] [address] 08/13/2024 11:40 AM EDT Office Visit [facility] [address] [place] [address] [address] Mauro Watson, [address] [place] [address] Scheduled Procedures Name Priority Associated Diagnoses Date/Ti [...] this encounter Medical Devices Implanted Type Area Solar Installer Device Identifier Shelf Expiration Date Model / Serial / Lot Stent Main Body Hgnw-63-69-Zt - [id number] Implanted:Qty: 1 on 06/10/2014 by Ronal Gallegos MD at [place] [facility] Aorta [employer] 04/07/2016 TFFB-24-8 2-ZT / / Graft Iliac Leg Spirlz 74p16xn - [id number] Implanted:Qty: 1 on 06/10/2014 by Ronal Gallegos MD at OR [facility] Right: Aorta [employer] 10/09/2015 [id number] / / [id number] Description: Graft Iliac Leg Spirlz 36r57zm - [id number] Implanted:Qty: 1 on 06/10/2014 by Ronal Gallegos MD at OR [facility] Right: Femoral Artery [employer] 11/07/2016 [id number] / / [id number] Stent Polmer 29mm P3110 - [id number] Implanted:Qty: 1 on 06/10/2014 by Ronal Gallegos MD at OR [facility] N/A: Aorta JNJ : CORDIS ENDOVASCULAR 07/26/2018 P3110 / / [id number] Codman Orbit Galaxy Coil 2.5mm X 3.5cm Implanted:Qty: 1 on 09/12/2015 by Arik Shin MD at OR [facility] Left: Head LENORA & LENORA CODMAN 02/26/2017 [id number] / [id number] / [id number] Description:COMPLEX XTRASOFT detachable coil deployed left internal carotid artery Codman Orbit Galaxy Coil 2.5mm X 2.5cm Implanted:Qty: 1 on 09/12/2015 by Arik Shin MD at OR [facility] Left: Head LENORA & LENORA CODMAN 01/27/2016 [id number] / [id number] / [id number] Description:COMPLEX XTRASOFT detachable coil deployed left internal carotid artery aneurysm Codman [place] 2 Stent 4mm X 30mm Implanted:Qty: 1 on 09/12/2015 by Arik Shin MD at OR [facility] Left: Head LENORA & LENORA DEPUY 03/26/2018 [id number] / [id number] / [id number] Description:Vascular reconst ruction device deployed in left internal carotid artery Codman Orbit Galaxy Coil 6mm X 20cm Implanted:Qty: 1 on 09/12/2015 by Arik Shin MD at OR [facility] Left: Head LENORA & LENORA CODMAN 09/26/2016 [id number] / [id number] / [id number] Description:COMPLEX FILL det achable coil deployed left internal carotid artery aneurysm Codman Orbit Galaxy Coil 4mm X 10cm Implanted:Qty: 1 on 09/12/2015 by Arik Shin MD at OR [facility] Left: Head LENORA & LENORA CODMAN 10/27/2015 [id number] 0 / [id number] / [id number] Description:COMPLEX XTRASOFT detachable coil deployed left internal carotid artery aneurysm Codman Orbit Galaxy Coil 3.5mm X 9cm Implanted:Qty: 1 on 09/12/2015 by Arik Shin MD at OR [facility] Left: Head LENORA & LENORA CODMAN 12/28/2015 [id number] / [id number] / [id number] Description:COMPLEX XTRASOFT detachable coil deployed left internal carotid artery aneurysm Codman Orbit Galaxy Coil 3mm X 6cm Implanted:Qty: 1 on 09/12/2015 by Arik Shin MD at OR [facility] Left: Head LENORA & LENORA CODMAN 04/28/2017 [id number] / [id number] / [id number] Description:COMPLEX XTRASOFT detachable coil deployed left internal carotid artery aneurysm Lens Intraoc 21.0 - [id number] - [id number] Implanted:Qty: 1 on 11/08/2020 by Yuri Bradley MD at OR [facility] Left: Eye BAUSCH & LOMB 06/26/2025 [id number] / [id number] / [id number] Lens Intraoc 20.5 - [id number] - [id number] Implanted:Qty: 1 on 11/22/2020 by Yuri Bradley MD at OR [facility] Right: Eye BAUSCH & LOMB 07/27/2025 [id number] / [id number] / [id number] Clip Quick 2.8mm 230cm - [id number] Implanted:Qty: 3 on 03/29/2021 by Luciana Fernandez MD at ENDOSCOPY [facility] [employer] 08/27/2023 HX-202UR. A / / Sureclip 16mm 235cm - [id number] Implanted:Qty: 2 on 05/07/2022 by Luciana Fernandez MD at ENDOSCOPY [facility] Colon MICRO TECH ENDOSCOPY 07/06/2024 [id number] / / Power Port 8fr Sngl Lumen Plas - [id number] Implanted:Qty: 1 on 01/30/2023 by Koko Santiago MD at OR [facility] N/A: Chest CR BARD : PERIPHERAL VASCULAR 07/27/2024 [id number] / / [id number] Power Port 8fr Sngl Lumen Plas - [id number] Implanted:Qty: 1 on 01/30/2023 by Koko Santiago MD at OR [facility] CR BARD : PERIPHERAL VASCULAR [id number] 07/27/2024 [id number] / / [id number] documented as of this encounter Visit Diagnoses [...] and were consensually agreed upon. Care Teams Calciner Feeder Relationship Specialty Start Date End Date Mauro Watson DO [address] [place] [address] PCP - General Family Medicine 04/13/19 documented as of this encounter
--- OUTSIDE RECORDS SUMMARY | 2024-02-19 09:25 | External Medical Summary | Summary of Care ---
Author Name Unknown Organization [facility] Address [address] [place] [address] Phone [phone] Care Team Providers Care Textile Coating Machine Operator Name Role Phone Mauro Watson DO Primary [...] [place] FOSAPREPITANT INJECTION Lasha Christine MD 200 [facility] [place] [address] Anc Hem/Onc [address] [address] Referral ID Status Reason Start Date Expiration Date V isits Requested Visits Authorized [id number] Authorized 08/22/2023 04/28/2099 999 [id number] Encounter Details Date Type Department Care Team (Latest Contact Info) Description 12/05/2023 11:00 AM EDT Hem/Onc Treatment Hematology/Oncolog y Treatment, [address] [address] Diane Chair 9 Hem Onc [address] [place] [address] Encounter for antineoplastic chemotherapy*; 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); Malignant neoplasm of left lung, unspecified part of lung (HCC) Allergies Active Allergy Reactions Criticality Noted Date Comments Aspirin Bleeding High 11/26/2011 Significant hemorroidal bleed on aspirin,high doses Duloxetine Hcl Hypertension 01/26/2020 documented as of this encounter (statuses as of 12/09/2023) Medications Medication Sig Dispensed Refills Start Date [...] for Nausea. 30 Tablet 3 07/05/2023 Active Prochlorperazine Maleate 10 MG Oral Tablet (Compazine)Indicatio ns: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),Cholangiocarci noma (HCC) Take 1 Tablet by mouth every 6 hours as needed for Nausea. 60 Tablet 2 07/05/2023 Active oxyCODONE HCl 5 MG Oral [...] the chemotherapy. 36 Tablet 1 11/21/2023 Active documented as of this encounter (statuses as of 12/09/2023) Active Problems Problem Noted Date Diagnosed Date Malignant neoplasm of left lung 08/23/2023 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 01/21/2023 Encounter for antineoplastic chemotherapy 2022 Medical marijuana use 08/26/2021 CKD (chronic kidney disease), stage II 2 Overview: EGFR 72 Lumbar radiculopathy 05/27/2019 Atherosclerosis of [place] co ronary artery of [place] heart with angina pectoris 05/05/2019 History of colon polyps 08/12/2018 ACEI/ARB contraindicated 09/21/2016 Carotid aneurysm, left 09/13/2015 Overview: S/p coil embolization Cerebral aneurysm, nonruptured 09/05/2015 AAA (abdominal aortic aneurysm) 06/20/2015 Overview: S/p repair Bilateral carotid artery disease 06/20/2015 Medical home patient encounter 05/19/2014 Hypertriglyceridemia 05/16/2012 CORON ATHEROSCL [place] CORON VESSEL 07/11/2010 Dyslipidemia, goal LDL below [...] as of this encounter (statuses as of 12/09/2023) Resolved Problems Problem Noted Date Diagnosed Date [...] as of this encounter (statuses as of 12/09/2023) Immunizations Name Administration Dates Next Due COVID-19 [...] of this encounter Nursing Notes * Aye Suarez, RN - 12/05/2023 1:38 PM EDT Chair 1 Pt here for C6 Alimta. Seen today by Dr. Christine. See office visit note. When ambulating into treatment room, patient reported that legs abruptly became weak and he felt like his head was in a fog. Pt stood at counter momentarily and then assisted to seat by DEVICE REPAIR TECHNICIAN. VS taken when he was in seat. [...] Care Team (Late st Contact Info) Description 12/17/2023 10:00 AM EDT Appointment Vascular Lab [address] [address] 12/17/2023 10:30 AM EDT Office Visit Vascular Surg [address] [address] Margarito Cabrera MD [facility] [place] [address] 12/26/2023 8:30 AM EDT Laboratory Laboratory [facility] [place] 200 [facility] [place] [phone] [facility] [address] [facility] [place] [address] 12/26/2023 9:30 AM EDT Hem/Onc Treatment Hematology/Oncology Treatment, [address] [place] [address] Diane, Chair 1 Hem Onc Scenery [address] [place], [place] [address] 02/13/2024 9:00 AM EDT Imaging Radiology [facility] [place] [address] [place] [address] Scheduled Procedures Name Priority Associated Diagnoses Date/Ti [...] this encounter Medical Devices Implanted Type Area Shearing Supervisor Device Identifier Shelf Expiration Date Model / Serial / Lot Stent Main Body Wafd-36-95-Zt - [id number] Implanted:Qty: 1 on 06/10/2014 by Ronal Gallegos MD [place] [facility] Aorta [employer] 04/07/2016 TFFB-24-8 2-ZT / / Graft Iliac Leg Spirlz 77t12yb - [id number] Implanted:Qty: 1 on 06/10/2014 by Ronal Gallegos MD [place] [facility] Right: Aorta [employer] 10/09/2015 [id number] / / [id number] Description: Graft Iliac Leg Spirlz 10f36zi - [id number] Implanted:Qty: 1 on 06/10/2014 by Ronal Gallegos MD [place] [facility] Right: Femoral Artery [employer] 11/07/2016 [id number] / / [id number] Stent Polmer 29mm P3110 - [id number] Implanted:Qty: 1 on 06/10/2014 by Ronal Gallegos MD [place] [facility] N/A: Aorta JNJ : CORDIS ENDOVASCULAR 07/26/2018 P3110 / / [id number] Codman Orbit Galaxy Coil 2.5mm X 3.5cm Implanted:Qty: 1 on 09/12/2015 by Arik Shin MD [place] [facility] Left: Head LENORA & PlaxicaMAN 02/26/2017 [id number] / [id number] / [id number] Description:COMPLEX XTRASOFT detachable coil deployed left internal carotid artery Codman Orbit Galaxy Coil 2.5mm X 2.5cm Implanted:Qty: 1 on 09/12/2015 by Arik Shin MD [place] [facility] Left: Head LENORA & LENORA CODMAN 01/27/2016 [id number] / [id number] / [id number] Description:COMPLEX XTRASOFT detachable coil deployed left internal carotid artery aneurysm Codman [place] 2 Stent 4mm X 30mm Implanted:Qty: 1 on 09/12/2015 by Arik Shin MD [place] [facility] Left: Head LENORA & LENORA DEPUY 03/26/2018 [id number] / [id number] / [id number] Description:Vascular reconst ruction device deployed in left internal carotid artery Codman Orbit Galaxy Coil 6mm X 20cm Implanted:Qty: 1 on 09/12/2015 by Arik Shin MD [place] [facility] Left: Head LENORA & LENORA CODMAN 09/26/2016 [id number] / [id number] / [id number] Description:COMPLEX FILL det achable coil deployed left internal carotid artery aneurysm Codman Orbit Galaxy Coil 4mm X 10cm Implanted:Qty: 1 on 09/12/2015 by Arik Shin MD [place] [facility] Left: Head LENORA & LENORA CODMAN 10/27/2015 [id number] 0 / [id number] / [id number] Description:COMPLEX XTRASOFT detachable coil deployed left internal carotid artery aneurysm Codman Orbit Galaxy Coil 3.5mm X 9cm Implanted:Qty: 1 on 09/12/2015 by Arik Shin MD [place] [facility] Left: Head LENORA & LENORA CODMAN 12/28/2015 [id number] / [id number] / [id number] Description:COMPLEX XTRASOFT detachable coil deployed left internal carotid artery aneurysm Codman Orbit Galaxy Coil 3mm X 6cm Implanted:Qty: 1 on 09/12/2015 by Arik Shin MD [place] [facility] Left: Head LENORA & LENORA CODMAN 04/28/2017 [id number] / [id number] / [id number] Description:COMPLEX XTRASOFT detachable coil deployed left internal carotid artery aneurysm Lens Intraoc 21.0 - [id number] - [id number] Implanted:Qty: 1 on 11/08/2020 by Yuri Bradley MD at OR [facility] Left: Eye BAUSCH & LOMB 06/26/2025 [id number] / [id number] Lens Intraoc 20.5 - [id number] - [id number] Implanted:Qty: 1 on 11/22/2020 by Yuri Bradley MD at OR [facility] Right: Eye BAUSCH & LOMB 07/27/2025 [id number] / [id number] Clip Quick 2.8mm 230cm - [id number] Implanted:Qty: 3 on 03/29/2021 by Luciana Fernandez MD at ENDOSCOPY [facility] [employer] 08/27/2023 HX-202UR. A / / Sureclip 16mm 235cm - [id number] Implanted:Qty: 2 on 05/07/2022 by Luciana Fernandez MD at ENDOSCOPY [facility] Colon MICRO TECH ENDOSCOPY 07/06/2024 [id number] / / Power Port 8fr Sngl Lumen Plas - [id number] Implanted:Qty: 1 on 01/30/2023 by Koko Santiago MD at OR [facility] N/A: Chest CR BARD : PERIPHERAL VASCULAR 07/27/2024 [id number] / / [id number] Power Port 8fr Sngl Lumen Plas - [id number] Implanted:Qty: 1 on 01/30/2023 by Koko Santiago MD at [facility] CR BARD : PERIPHERAL VASCULAR [id number] 07/27/2024 [id number] / / [id number] documented as of this encounter Visit Diagnoses [...] and were consensually agreed upon. Care Teams Textile Coating Machine Operator Relationship Specialty Start Date End Date Mauro Watson DO [address] [place] [address] PCP - General Family Medicine 04/13/19 documented as of this encounter
--- OUTSIDE RECORDS SUMMARY | 2024-02-19 09:25 | External Medical Summary | Summary of Care ---
Author Name Unknown Organization [facility] Address [address] [place] [address] Phone [phone] Care Team Providers Care Cellular Equipment Installer Name Role Phone Watson Nicol Leonardog[place]y Primary Care Provider Reason for Visit * Reason Onset Date Comments Scheduling 12/10/2023 Encounter Details Date Type Department Care Team (Late st Contact Info) Description 12/10/2023 Telephone Hematology/Oncology [facility] [place] [address] [place] [phone] Lasha [facility] [address] Scheduling Allergies Active Allergy Reactions Criticality Noted Date Comments Aspirin Bleeding High 11/26/2011 Significant hemorroidal bleed on aspirin,high doses Duloxetine Hcl Hypertension 01/26/2020 documented as of this encounter (statuses as of 12/10/2023) Medications Medication Sig Dispensed Refills Start Date [...] Capsules before bedtime. 40 Capsule 12/10/2023 Active documented as of this encounter (statuses as of 12/10/2023) Active Problems Problem Noted Date Diagnosed Date Malignant neoplasm of left lung 08/23/2023 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 01/21/2023 Encounter for antineoplastic chemotherapy 2022 Medical marijuana use 08/26/2021 CKD (chronic kidney disease), stage II 2 Overview: EGFR 72 Lumbar radiculopathy 05/27/2019 Atherosclerosis of [place] co ronary artery of [place] heart with angina pectoris 05/05/2019 History of [...] as of this encounter (statuses as of 12/10/2023) Resolved Problems Problem Noted Date Diagnosed Date [...] as of this encounter (statuses as of 12/10/2023) Immunizations Name Administration Dates Next Due COVID-19 [...] encounter Miscellaneous Notes * Addendum Note - Nicol Watson DO [...] [facility] [address] [place] [address] * Telephone Encounter - Nia Javed PHARM Tech - 12/10/2023 9:18 AM EDT Patient requesting to be transferred to his oncologist states that he is positive for covid. Patient transferred. Thank you, Nia Javed Computational Mathematician I [facility]ized [facility] ([facility]) 12/10/2023,9:19 AM documented in this encounter Plan of Treatment Upcoming Encounters Date Type Department Care Team (Late st Contact Info) Description 12/17/2023 10:00 AM EDT Appointment Vascular Lab [address] [address] 12/17/2023 10:30 AM EDT Office Visit Vascular Surg [address] [address] Margarito Cabrera [facility] [address] [facility] [address] 12/26/2023 8:30 AM EDT Laboratory Laboratory Scenery [facility] [address] [place] [phone] Park, Lab Scenery [address] [facility] [place] [address] 12/26/2023 9:30 AM EDT Hem/Onc Treatment Hematology/Oncology Treatment, [place] [address] [place] [phone] Diane, Chair 1 Hem Onc Scenery [address] [place] [address] 02/13/2024 9:00 AM EDT Imaging Radiology [address] [facility] [place] [address] Scheduled Procedures Name Priority Associated Diagnoses Date/Ti [...] this encounter Medical Devices Implanted Type Area Ping Pong Table Assembler Device Identifier Shelf Expiration Date Model / Serial / Lot Stent Main Body Dyna-66-14-Zt - [id number] Implanted:Qty: 1 on 06/10/2014 by Ronal Gallegos MD [place] [facility] Aorta [employer] 04/07/2016 TFFB-24-8 2-ZT / / Graft Iliac Leg Spirlz 62b65vt - [id number] Implanted:Qty: 1 on 06/10/2014 by Ronal Gallegos MD [place] [facility] Right: Aorta [employer] 10/09/2015 [id number] / / [id number] Description: Graft Iliac Leg Spirlz 93w00ex - [id number] Implanted:Qty: 1 on 06/10/2014 by Ronal Gallegos MD [place] [facility] Right: Femoral Artery [employer] 11/07/2016 [id number] / / [id number] Stent Polmer 29mm P3110 - [id number] Implanted:Qty: 1 on 06/10/2014 by Ronal Gallegos MD at [place] [facility] N/A: Aorta JNJ : CORDIS ENDOVASCULAR 07/26/2018 P3110 / / [id number] Codman Orbit Galaxy Coil 2.5mm X 3.5cm Implanted:Qty: 1 on 09/12/2015 by Arik Shin MD at [place] [facility] Left: Head LENORA & LENORA CODMAN 02/26/2017 [id number] / [id number] / [id number] Description:COMPLEX XTRASOFT detachable coil deployed left internal carotid artery Codman Orbit Galaxy Coil 2.5mm X 2.5cm Implanted:Qty: 1 on 09/12/2015 by Arik Shin MD at [place] [facility] Left: Head LENORA & LENORA CODMAN 01/27/2016 [id number] / [id number] / [id number] Description:COMPLEX XTRASOFT detachable coil deployed left internal carotid artery aneurysm Codman [place] 2 Stent 4mm X 30mm Implanted:Qty: 1 on 09/12/2015 by Arik Shin MD at [place] [facility] Left: Head LENORA & LENORA DEPUY 03/26/2018 [id number] / [id number] / [id number] Description:Vascular reconst ruction device deployed in left internal carotid artery Codman Orbit Galaxy Coil 6mm X 20cm Implanted:Qty: 1 on 09/12/2015 by Arik Shin MD at [place] [facility] Left: Head LENORA & LENORA [facility] 09/26/2016 [id number] / [id number] / [id number] Description:COMPLEX FILL det achable coil deployed left internal carotid artery aneurysm Codman Orbit Galaxy Coil 4mm X 10cm Implanted:Qty: 1 on 09/12/2015 by Arik Shin MD at [place] [facility] Left: Head LENORA & [facility]A [facility] 10/27/2015 [id number] 0 / [id number] / [id number] Description:COMPLEX XTRASOFT detachable coil deployed left internal carotid artery aneurysm Codman Orbit Galaxy Coil 3.5mm X 9cm Implanted:Qty: 1 on 09/12/2015 by Arik Shin MD at [place] [facility] Left: Head LENORA & LENORA CODMAN 12/28/2015 [id number] / [id number] / [id number] Description:COMPLEX XTRASOFT detachable coil deployed left internal carotid artery aneurysm Codman Orbit Galaxy Coil 3mm X 6cm Implanted:Qty: 1 on 09/12/2015 by Arik Shin MD at [place] [facility] Left: Head LENORA & LENORA CODMAN 04/28/2017 [id number] / [id number] / [id number] Description:COMPLEX XTRASOFT detachable coil deployed left internal carotid artery aneurysm Lens Intraoc 21.0 - [id number] - [id number] Implanted:Qty: 1 on 11/08/2020 by Yuri Bradley MD at OR [facility] Left: Eye BAUSCH & LOMB 06/26/2025 [id number] / [id number] / [id number] Lens Intraoc 20.5 - [id number] - [id number] Implanted:Qty: 1 on 11/22/2020 by Yuri Bradley MD at OR [facility] Right: Eye BAUSCH & LOMB 07/27/2025 [id number] / [id number] Clip Quick 2.8mm 230cm - [id number] Implanted:Qty: 3 on 03/29/2021 by Luciana Fernandez MD at ENDOSCOPY [facility] [employer] 08/27/2023 HX-202UR. A / / Sureclip 16mm 235cm - [id number] Implanted:Qty: 2 on 05/07/2022 by Luciana Fernandez MD at ENDOSCOPY [facility] Colon MICRO TECH ENDOSCOPY 07/06/2024 [id number] / / Power Port 8fr Sngl Lumen Plas - [id number] Implanted:Qty: 1 on 01/30/2023 by Koko Santiago MD at OR [facility] N/A: Chest CR BARD : PERIPHERAL VASCULAR 07/27/2024 [id number] / / [id number] Power Port 8fr Sngl Lumen Plas - [id number] Implanted:Qty: 1 on 01/30/2023 by Koko Santiago MD at OR [facility] CR BARD : PERIPHERAL VASCULAR [id number] 07/27/2024 [id number] / / [id number] documented as of this encounter Visit Diagnoses [...] and were consensually agreed upon. Care Teams Cellular Equipment Installer Relationship Specialty Start Date End Date Nicol Watson DO [address] [place] [address] PCP - General Family Medicine 04/13/19 documented as of this encounter
--- OUTSIDE RECORDS SUMMARY | 2024-02-19 09:25 | External Medical Summary | Summary of Care ---
Author Name Unknown Organization [facility] Address [address] [place] [address] Phone [phone] Care Team Providers Care Television Schedule Coordinator Name Role Phone Watson Mauro Leonardogordy Primary Care Provider Reason for Visit * Reason Onset Date Comments Scheduling 12/10/2023 Encounter Details Date Type Department Care Team (Late st Contact Info) Description 12/10/2023 Telephone Hematology/Oncology [facility] [place] [address] [place] [phone] Lasha Christine MD [address] [facility] [address] Scheduling Allergies Active Allergy Reactions Criticality Noted [...] EGFR 72 Lumbar radiculopathy 05/27/2019 Atherosclerosis of [place] co ronary artery of [place] heart with angina pectoris 05/05/2019 History of colon polyps 08/12/2018 ACEI/ARB contraindicated 09/21/2016 Carotid aneurysm, left 09/13/2015 Overview: S/p coil embolization Cerebral aneurysm, nonruptured 09/05/2015 AAA (abdominal aortic aneurysm) 06/20/2015 Overview: S/p repair Bilateral carotid artery disease 06/20/2015 Medical home patient encounter 05/19/2014 Hypertriglyceridemia 05/16/2012 CORON ATHEROSCL [place] CORON VESSEL 07/11/2010 Dyslipidemia, goal LDL below [...] [facility] ([facility]) [address] [place] [address] * Telephone Encounter - Nia Javed, manager of supply chain - 12/10/2023 9:18 AM EDT Patient requesting to be transferred to his oncologist states that he is positive for covid. Patient transferred. Thank you, Nia Javed Cage Maker I [facility] ([facility]) 12/10/2023,9:19 AM documented in this encounter Plan of Treatment Upcoming Encounters Date Type Department Care Team (Late st Contact Info) Description 12/17/2023 10:00 AM EDT Appointment Vascular Lab [address] [address] 12/17/2023 10:30 AM EDT Office Visit Vascular Surg [address] [address] Margarito Cabrera MD [facility] [place] [address] 12/26/2023 8:30 AM EDT Laboratory Laboratory [facility] [address] [place] [phone] Diane, Lab [facility] 200 [facility] [place] [address] 12/26/2023 9:30 AM EDT Hem/Onc Treatment Hematology/Oncology Treatment, [place] [address] [place] [address] Diane, Chair 1 Hem Onc Scenery 200 [facility] [place] [address] 02/13/2024 9:00 AM EDT Imaging Radiology [address] [place] [address] Scheduled Procedures Name Priority Associated Diagnoses Date/Ti me INJECTION SPINE LUMBAR OR SACRAL Lumbar radiculopathy COLONOSCOPY FLEXIBLE PROXIMAL DIAGNOSTIC Recall History of colon polyps Health Maintenance Due Date Last Done Comments Cologuard 1994 Sigmoidoscopy 1994 Fecal Occult Blood Test 02/03/2001 02/04/2000, 02/02 Adult Wellness Visit 01/25/2022 01/25/2021 COVID-19 Vaccine (2022- season) 2022 02/06/2022, 05/11/2021, 12/13/2020, Additional history [...] this encounter Medical Devices Implanted Type Area Quarry Boss Device Identifier Shelf Expiration Date Model / Serial / Lot Stent Main Body Yioi-40-30-Zt - [id number] Implanted:Qty: 1 on 06/10/2014 by Ronal Gallegos MD at [place] [facility] Aorta [employer] 04/07/2016 TFFB-24-8 2-ZT / / Graft Iliac Leg Spirlz 15s58lr - [id number] Implanted:Qty: 1 on 06/10/2014 by Ronal Gallegos MD at OR [facility] Right: Aorta [employer] 10/09/2015 [id number] / / [id number] Description: Graft Iliac Leg Spirlz 15d29ul - [id number] Implanted:Qty: 1 on 06/10/2014 by Ronal Gallegos MD at OR [facility] Right: Femoral Artery [employer] 11/07/2016 [id number] / / [id number] Stent Polmer 29mm P3110 - [id number] Implanted:Qty: 1 on 06/10/2014 by Ronal Gallegos MD at OR [facility] N/A: Aorta JNJ : CORDIS ENDOVASCULAR 07/26/2018 P3110 / / [id number] Codman Orbit Galaxy Coil 2.5mm X 3.5cm Implanted:Qty: 1 on 09/12/2015 by Arik Shin MD at OR [facility] Left: Head LENORA & [facility] 02/26/2017 [id number] / [id number] / [id number] Description:COMPLEX XTRASOFT detachable coil deployed left internal carotid artery Codman Orbit Galaxy Coil 2.5mm X 2.5cm Implanted:Qty: 1 on 09/12/2015 by Arik Shin MD at OR [facility] Left: Head LENORA & LENORA CODMAN 01/27/2016 [id number] / [id number] / [id number] Description:COMPLEX XTRASOFT detachable coil deployed left internal carotid artery aneurysm Codman [place] 2 Stent 4mm X 30mm Implanted:Qty: 1 on 09/12/2015 by Arik Shin MD at OR [facility] Left: Head LENORA & LENORA DEPUY 03/26/2018 [id number] / [id number] / [id number] Description:Vascular reconst ruction device deployed in left internal carotid artery Codman Orbit Galaxy Coil 6mm X 20cm Implanted:Qty: 1 on 09/12/2015 by Arik Shin MD at OR [facility] Left: Head LENORA & LENORA CODMAN 09/26/2016 [id number] / [id number] / [id number] Description:COMPLEX FILL det achable coil deployed left internal carotid artery aneurysm Codman Orbit Galaxy Coil 4mm X 10cm Implanted:Qty: 1 on 09/12/2015 by Arik Shin MD at OR [facility] Left: Head LENORA & LENORA CODMAN 10/27/2015 [id number] 0 / [id number] / [id number] Description:COMPLEX XTRASOFT detachable coil deployed left internal carotid artery aneurysm Codman Orbit Galaxy Coil 3.5mm X 9cm Implanted:Qty: 1 on 09/12/2015 by Arik Shin MD at OR [facility] Left: Head LENORA & LENORA CODMAN 12/28/2015 [id number] / [id number] / [id number] Description:COMPLEX XTRASOFT detachable coil deployed left internal carotid artery aneurysm Codman Orbit Galaxy Coil 3mm X 6cm Implanted:Qty: 1 on 09/12/2015 by Arik Shin MD at OR [facility] Left: Head LENORA & LENORA CODMAN 04/28/2017 [id number] / [id number] / [id number] Description:COMPLEX XTRASOFT detachable coil deployed left internal carotid artery aneurysm Lens Intraoc 21.0 - [id number] - [id number] Implanted:Qty: 1 on 11/08/2020 by Yuri Bradley MD at OR [facility] Left: Eye BAUSCH & LOMB 06/26/2025 [id number] / [id number] / [id number] Lens Intraoc 20.5 - [id number] - [id number] Implanted:Qty: 1 on 11/22/2020 by Yuri Bradley MD at OR [facility] Right: Eye BAUSCH & LOMB 07/27/2025 [id number] / [id number] Clip Quick 2.8mm 230cm - [id number] Implanted:Qty: 3 on 03/29/2021 by Luciana Fernandez MD at ENDOSCOPY [facility] [employer] 08/27/2023 HX-202UR. A / / Sureclip 16mm 235cm - [id number] Implanted:Qty: 2 on 05/07/2022 by Luciana Fernandez MD at ENDOSCOPY [facility] Colon MICRO TECH ENDOSCOPY 07/06/2024 [id number] / / Power Port 8fr Sngl Lumen Plas - [id number] Implanted:Qty: 1 on 01/30/2023 by Koko Santiago MD at OR [facility] N/A: Chest CR BARD : PERIPHERAL VASCULAR 07/27/2024 [id number] / / [id number] Power Port 8fr Sngl Lumen Plas - [id number] Implanted:Qty: 1 on 01/30/2023 by Koko Santiago MD at OR [facility] CR BARD : PERIPHERAL VASCULAR [id number] 07/27/2024 [id number] / / [id number] documented as of this encounter Advance Directives [...] and were consensually agreed upon. Care Teams Television Schedule Coordinator Relationship Specialty Start Date End Date Mauro Watson DO [address] [place] [address] PCP - General Family Medicine 04/13/19 documented as of this encounter
--- OUTSIDE RECORDS SUMMARY | 2024-02-19 09:25 | External Medical Summary | Summary of Care ---
Author Name Unknown Organization [facility] Address [address] [place] [address] Phone [phone] Care Team Providers Care Army Officer Name Role Phone Watson Mauro Leonardogordy Primary Care Provider Reason for Visit * Reason Onset Date Comments Medication Refill 12/12/2023 Encounter Details Date Type Department Care Team (Late st Contact Info) Description 12/12/2023 Refill Hematology/Oncology [facility] [address] [facility] [place] [phone] Lasha Christine MD [address] [facility] [place] [address] 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); Cholangiocarcinoma (HCC) Allergies Active Allergy Reactions Criticality Noted Date Comments Aspirin Bleeding High 11/26/2011 Significant hemorroidal bleed on aspirin,high doses Duloxetine Hcl Hypertension 01/26/2020 documented as of this encounter (statuses as of 12/12/2023) Medications Medication Sig Dispensed Refills Start Date [...] for Nausea. 60 Tablet 2 12/12/2023 Active Prochlorperazine Maleate 10 MG Oral Tablet (Compazine)Indicat ions: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),Cholangiocar cinoma (HCC) Take 1 Tablet by mouth every 6 hours as needed for Nausea. 60 Tablet 2 07/05/2023 4 Discontinue d(Refill) documented as of this encounter (statuses as of 12/12/2023) Active Problems Problem Noted Date Diagnosed Date Malignant neoplasm of left lung 08/23/2023 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 01/21/2023 Encounter for antineoplastic chemotherapy 2022 Medical marijuana use 08/26/2021 CKD (chronic kidney disease), stage II 2 Overview: EGFR 72 Lumbar radiculopathy 05/27/2019 Atherosclerosis of [place] co ronary artery of [place] heart with angina pectoris 05/05/2019 History of colon polyps 08/12/2018 ACEI/ARB contraindicated 09/21/2016 Carotid aneurysm, left 09/13/2015 Overview: S/p coil embolization Cerebral aneurysm, nonruptured 09/05/2015 AAA (abdominal aortic aneurysm) 06/20/2015 Overview: S/p repair Bilateral carotid artery disease 06/20/2015 Medical home patient encounter 05/19/2014 Hypertriglyceridemia 05/16/2012 CORON ATHEROSCL [place] CORON VESSEL 07/11/2010 Dyslipidemia, goal LDL below [...] as of this encounter (statuses as of 12/12/2023) Resolved Problems Problem Noted Date Diagnosed Date [...] as of this encounter (statuses as of 12/12/2023) Immunizations Name Administration Dates Next Due COVID-19 [...] Telephone Encounter - Lasha Christine MD - 12/12/2023 1:25 PM EDT E-prescribed Lasha Christine MD Hem/Onc * Telephone Encounter - Veronica Briones LPN - 12/12/2023 11:43 AM EDTPending Prescriptions: Disp Refills Prochlorperazine Maleate 10 MG Oral Tablet*60 Tab*2 Sig: Take 1 Tablet by mouth every 6 hours as needed for Nausea. * Telephone Encounter - Veronica Briones LPN - 12/12/2023 11:40 AM EDT Refill request for Compazine 10 mg tabs pended below: Last Refill: 07/05/2023 Last seen: 12/05/2023 Next Appt.: 01/16/2024 * Telephone Encounter - Chikis Isaac, home service director - 12/12/2023 9:10 AM EDT Patient is up to date for office visits. Pending Prescriptions: Disp Refills Prochlorperazine Maleate 10 MG Oral Table*60 Tab*2 Sig: Take 1 Tablet by mouth every 6 hours as needed for Nausea. Last Visit: 12/05/2023 (in office), Visit date not found (telemedicine) Next Visit: 01/16/2024 If no future appointments scheduled, and last appointment is greater than a year ago, please schedule patient for a follow-up appointment Last date the medication was ordered: 07/05/23 Pharmacy: [id number] [place] [address] Is this request for a controlled substance?No it is not controlled. Urine Drug Screen:No results found. However, due to the size of the patient record, not all encounters were searched. Please check Results Review for a complete set of results. Patient Phone Numbers Labs: Lab Results Component Value Date/Time CREAT 0.9 12/05/2023 09:32 AM CREAT 1.1 10/18/2022 08:00 AM CREAT 1.2 04/21/2020 12:32 PM POTASSIUM 4.4 12/05/2023 09:32 AM POTASSIUM 4.6 04/21/2020 12:32 PM POTASSIUM 4.8 02/26/1996 09:05 AM TSH 0.54 10/03/2023 11:53 AM TSH 0.88 09/29/2008 02:20 PM TSH 0.65 02/26/1996 09:05 AM LDLCALC UNINTERPRETABLE RESULT 10/31/2018 07:52 AM LDLCALC 156. (H) 02/26/1996 09:05 AM LDLDIRECT 67 05/17/2022 03:36 PM LDLDIRECT 56 01/13/2020 10:55 AM LDLDIRECT 67 10/20/2013 09:52 AM ALT 27 12/05/2023 09:32 AM ALT 47 04/21/2020 12:32 PM HGBA1C 5.5 05/11/2021 11:39 AM documented in this encounter Plan of Treatment Upcoming Encounters Date Type Department Care Team (Late st Contact Info) Description 12/26/2023 8:30 AM EDT Laboratory Laboratory Nandini Contreras [place] [address] [place] [phone] Diane Lab [facility] [address] [facility] [place] [address] 12/26/2023 9:30 AM EDT Hem/Onc Treatment Hematology/Oncology Treatment, [place] [address] [place] [phone] Diane, Chair 1 Hem Onc [address] [place] [address] 01/16/2024 8:15 AM EDT Office [facility] [place] [address] [facility] [place] [phone] Lasha Christine MD [address] [facility] [place] [address] 02/10/2024 9:00 AM EDT Appointment Vascular Lab [place] [address] [place] [address] 02/10/2024 10:00 AM EDT Office Visit Vascular Surg [facility] [address] [place] [address] Margarito Cabrera MD [address] [place] [address] 02/13/2024 9:00 AM EDT Imaging Radiology [address] [place] [address] Scheduled Procedures Name Priority Associated Diagnoses Date/Ti [...] history exists Albumin/Creatinine Ratio 05/17/2025 05/17/2022, 04/3 DTaP,Tdap,and Td Vaccines (4 - Td or [...] this encounter Medical Devices Implanted Type Area Coding Clerk Device Identifier Shelf Expiration Date Model / Serial / Lot Stent Main Body Ifxn-36-87-Zt - [id number] Implanted:Qty: 1 on 06/10/2014 by Ronal Gallegos MD at [place] [facility] Aorta [employer] 04/07/2016 TFFB-24-8 2-ZT / / Graft Iliac Leg Spirlz 74o08td - [id number] Implanted:Qty: 1 on 06/10/2014 by Ronal Gallegos MD at OR [facility] Right: Aorta [employer] 10/09/2015 [id number] / / [id number] Description: Graft Iliac Leg Spirlz 67h07km - [id number] Implanted:Qty: 1 on 06/10/2014 by Ronal Gallegos MD at OR [facility] Right: Femoral Artery [employer] 11/07/2016 [id number] / / [id number] Stent Polmer 29mm P3110 - [id number] Implanted:Qty: 1 on 06/10/2014 by Ronal Gallegos MD at OR [facility] N/A: Aorta JNJ : CORDIS ENDOVASCULAR 07/26/2018 [id number] / / [id number] Codman Orbit Galaxy Coil 2.5mm X 3.5cm Implanted:Qty: 1 on 09/12/2015 by Arik Shin MD at OR [facility] Left: Head [employer]A [employer] CODMAN 02/26/2017 [id number] / [id number] / [id number] Description:COMPLEX XTRASOFT detachable coil deployed left internal carotid artery Codman Orbit Galaxy Coil 2.5mm X 2.5cm Implanted:Qty: 1 on 09/12/2015 by Arik Shin MD at OR [facility] Left: Head LEN[employer]A [employer] LEN[employer]A CODMAN 01/27/2016 [id number] / [id number] / [id number] Description:COMPLEX XTRASOFT detachable coil deployed left internal carotid artery aneurysm Codman [place] 2 Stent 4mm X 30mm Implanted:Qty: 1 on 09/12/2015 by Arik Shin MD at OR [facility] Left: Head LENORA [employer] LENORA DEPUY 03/26/2018 [id number] / [id number] / [id number] Description:Vascular reconst ruction device deployed in left internal carotid artery Codman Orbit Galaxy Coil 6mm X 20cm Implanted:Qty: 1 on 09/12/2015 by Arik Shin MD at OR [facility] Left: Head [employer]A [employer] C[employer]MAN 09/26/2016 [id number] / [id number] / [id number] Description:COMPLEX FILL det achable coil deployed left internal carotid artery aneurysm Codman Orbit Galaxy Coil 4mm X 10cm Implanted:Qty: 1 on 09/12/2015 by Arik Shin MD at OR [facility] Left: Head [employer] CODMAN 10/27/2015 [id number] / [id number] / [id number] Description:COMPLEX XTRASOFT detachable coil deployed left internal carotid artery aneurysm Codman Orbit Galaxy Coil 3.5mm X 9cm Implanted:Qty: 1 on 09/12/2015 by Arik Shin MD at OR [facility] Left: Head L[employer]A [employer]A C[employer]MAN 12/28/2015 [id number] / [id number] / [id number] Description:COMPLEX XTRASOFT detachable coil deployed left internal carotid artery aneurysm Codman Orbit Galaxy Coil 3mm X 6cm Implanted:Qty: 1 on 09/12/2015 by Arik Shin MD at OR [facility] Left: Head L[employer]A [employer]A CODMAN 04/28/2017 [id number] / [id number] / [id number] Description:COMPLEX XTRASOFT detachable coil deployed left internal carotid artery aneurysm Lens Intraoc 21.0 - [id number] - [id number] Implanted:Qty: 1 on 11/08/2020 by Yuri Bradley MD at [place] [facility] Left: Eye [employer]USCH [employer] LOMB 06/26/2025 [id number] / [id number] / [id number] Lens Intraoc 20.5 - [id number] - [id number] Implanted:Qty: 1 on 11/22/2020 by Yuri Bradley MD at OR [facility] Right: Eye BAUSCH & LOMB 07/27/2025 [id number] / [id number] / [id number] Clip Quick 2.8mm 230cm - [id number] Implanted:Qty: 3 on 03/29/2021 by Luciana Fernandez MD at ENDOSCOPY [facility] [employer] 08/27/2023 HX-202UR. A / / Sureclip 16mm 235cm - [id number] Implanted:Qty: 2 on 05/07/2022 by Luciana Fernandez MD at ENDOSCOPY [facility] Colon MICRO TECH ENDOSCOPY 07/06/2024 [id number] / / Power Port 8fr Sngl Lumen Plas - [id number] Implanted:Qty: 1 on 01/30/2023 by Koko Santiago MD at OR [facility] N/A: Chest CR BARD : PERIPHERAL VASCULAR 07/27/2024 [id number] / / [id number] Power Port 8fr Sngl Lumen Plas - [id number] Implanted:Qty: 1 on 01/30/2023 by Koko Santiago MD at OR [facility] CR BARD : PERIPHERAL VASCULAR [id number] 07/27/2024 [id number] / / [id number] documented as of this encounter Visit Diagnoses Diagnosis 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) Cholangiocarcinoma (HCC) Malignant neoplasm of intrahepatic [...] and were consensually agreed upon. Care Teams Army Officer Relationship Specialty Start Date End Date Mauro Watson DO [address] [place] [address] PCP - General Family Medicine 04/13/19 documented as of this encounter
--- OUTSIDE RECORDS SUMMARY | 2024-02-19 09:25 | External Medical Summary | Summary of Care ---
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 30 Capsule 5 02/06/2023 Active Additional Information Patient not taking.Reported on 02/18/2023 Prochlorperazine Maleate 10 MG Oral Tablet (Compazine)Indicati ons: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) take 1 tablet by mouth every 6 hours if needed for nausea 30 Tablet 2 04/01/2023 Active amLODIPine Besylate 5 MG Oral Tablet (Norvasc)Indication s:HTN, goal below 140/90 take 1 tablet by mouth once daily 90 Tablet 2 03/31/2023 Active Ondansetron HCl 8 MG Oral Tablet (Zofran)Indications :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) take 1 tablet by mouth every 8 hours if needed for nausea 30 Tablet 2 05/07/2023 Active Lidocaine-Prilocain e 2.5-2.5 % External Cream (Emla)Indications:M etastatic 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 (HCC) APPLY TO SKIN OVER MEDIPORT & COVER 1HR PRIOR TO ACCESSING. 30 g 1 05/27/2023 Active Ondansetron HCl 8 MG Oral TabletIndications:M etastatic 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 (HCC),Cholangiocarc inoma (HCC) Take 1 Tablet by mouth every 8 hours as needed for Nausea. 30 Tablet 3 07/05/2023 Active oxyCODONE HCl 5 MG Oral Tablet (Oxy IR)Indications:[place] static 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 (HCC) Take 1 Tablet by mouth every 4 hours as needed for Pain, Moderate. 30 Tablet 08/19/2023 Active Additional Information Patient not taking.Reported on 11/05/2023 Folic Acid 1 MG Oral TabletIndications:M etastatic 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 (HCC) Take 1 Tablet by mouth in the morning. 90 Tablet 3 09/13/2023 Active Gabapentin 600 MG Oral Tablet (Neurontin)Indicati ons:Lumbar radiculopathy Take 1 Tablet by mouth in the morning and 1 Tablet at noon and 1 Tablet before bedtime. 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 30 Tablet 2 11/05/2023 Active Metoprolol Tartrate 25 MG Oral Tablet (Lopressor)Indicati ons:HTN, goal below 140/90 Take 0.5 Tablets by mouth in the morning and 0.5 Tablets before bedtime. 90 Tablet 1 11/21/2023 Active dexAMETHasone 4 MG Oral TabletIndications:M etastatic 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 (HCC),Malignant neoplasm of left lung, unspecified part of lung (HCC) One tablet twice a day for 3 days only, starting one day before the chemotherapy. 36 Tablet 1 11/21/2023 Active Molnupiravir 200 MG Oral CapsuleIndications: COVID-19 virus infection Take 4 Capsules by mouth in the morning and 4 Capsules before bedtime. 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 01/21/2023 Encounter for antineoplastic chemotherapy 2022 Medical marijuana use 08/26/2021 CKD (chronic kidney disease), stage II 2 Overview: EGFR 72 Lumbar radiculopathy 05/27/2019 Atherosclerosis of [place] co ronary artery of [place] heart with angina pectoris 05/05/2019 History of colon polyps 08/12/2018 ACEI/ARB contraindicated 09/21/2016 Carotid aneurysm, left 09/13/2015 Overview: S/p coil embolization Cerebral aneurysm, nonruptured 09/05/2015 AAA (abdominal aortic aneurysm) 06/20/2015 Overview: S/p repair Bilateral carotid artery disease 06/20/2015 Medical home patient encounter 05/19/2014 Hypertriglyceridemia 05/16/2012 CORON ATHEROSCL [place] CORON VESSEL 07/11/2010 Dyslipidemia, goal LDL below [...] 8:30 AM EDT Laboratory Laboratory [facility] Contreras [place] [address] [place] [phone] Zeyad Contreras [address] [place] [address] 12/26/2023 9:30 AM EDT Hem/Onc Treatment Hematology/Oncology Treatment, [place] [address] [place] [phone] Diane, Chair 1 Hem Onc Scenery [address] [place] [address] 01/16/2024 8:15 AM EDT Office Visit Hematology/Oncology [facility] [place] [address] [place] [phone] Lasha Christine MD [address] [place] [address] 02/10/2024 9:00 AM EDT Appointment Vascular Lab [place] [address] [place] [address] 02/10/2024 10:00 AM EDT Office Visit Vascular Surg [facility] [address] [place] [address] Mragarito Cabrera MD [address] [place] [address] 02/13/2024 9:00 AM EDT Imaging Radiology [address] [address] Scheduled Procedures Name Priority Associated Diagnoses Date/Ti [...] this encounter Medical Devices Implanted Type Area Bonding Machine Tender Device Identifier Shelf Expiration Date Model / Serial / Lot Stent Main Body Sawd-53-84-Zt - [id number] Implanted:Qty: 1 on 06/10/2014 by Ronal Gallegos MD at [place] [facility] Aorta [employer] 04/07/2016 TFFB-24-8 2-ZT / / Graft Iliac Leg Spirlz [id number] - [id number] Implanted:Qty: 1 on 06/10/2014 by Ronal Gallegos MD at [place] [facility] Right: Aorta [employer] 10/09/2015 [id number] / / [id number] Description: Graft Iliac Leg Spirlz 42q01bq - [id number] Implanted:Qty: 1 on 06/10/2014 by Ronal Gallegos MD at [place] [facility] Right: Femoral Artery [employer] 11/07/2016 [id number] / / [id number] Stent Polmer 29mm P3110 - [id number] Implanted:Qty: 1 on 06/10/2014 by Ronal Gallegos MD at [place] [facility] N/A: Aorta JNJ : CORDIS ENDOVASCULAR 07/26/2018 P3110 / / [id number] Codman Orbit Galaxy Coil 2.5mm X 3.5cm Implanted:Qty: 1 on 09/12/2015 by Arik Shin MD at [place] [facility] Left: Head L[employer]ORA [employer] [facility] 02/26/2017 [id number] / [id number] / [id number] Description:COMPLEX XTRASOFT detachable coil deployed left internal carotid artery Codman Orbit Galaxy Coil 2.5mm X 2.5cm Implanted:Qty: 1 on 09/12/2015 by Arik Shin MD at [place] [facility] Left: Head L[employer]ORA [employer] [facility] 01/27/2016 [id number] / [id number] / [id number] Description:COMPLEX XTRASOFT detachable coil deployed left internal carotid artery aneurysm Codman [place] 2 Stent 4mm X 30mm Implanted:Qty: 1 on 09/12/2015 by Arik Shin MD at [place] [facility] Left: Head LENORA [employer] LENORA DEPUY 03/26/2018 [id number] / [id number] / [id number] Description:Vascular reconst ruction device deployed in left internal carotid artery Codman Orbit Galaxy Coil 6mm X 20cm Implanted:Qty: 1 on 09/12/2015 by Arik Shin MD at [place] [facility] Left: Head LENORA & LENORA [facility] 09/26/2016 [id number] / [id number] / [id number] Description:COMPLEX FILL det achable coil deployed left internal carotid artery aneurysm Codman Orbit Galaxy Coil 4mm X 10cm Implanted:Qty: 1 on 09/12/2015 by Arik Shin MD at [place] [facility] Left: Head LENORA & [employer] 10/27/2015 [id number] / [id number] / [id number] Description:COMPLEX XTRASOFT detachable coil deployed left internal carotid artery aneurysm Codman Orbit Galaxy Coil 3.5mm X 9cm Implanted:Qty: 1 on 09/12/2015 by Arik Shin MD at [place] [facility] Left: Head LENORA & LENORA CODMAN 12/28/2015 [id number] / [id number] / [id number] Description:COMPLEX XTRASOFT detachable coil deployed left internal carotid artery aneurysm Codman Orbit Galaxy Coil 3mm X 6cm Implanted:Qty: 1 on 09/12/2015 by Arik Shin MD at [place] [facility] Left: Head LENORA & LENORA CODMAN 04/28/2017 [id number] / [id number] / [id number] Description:COMPLEX XTRASOFT detachable coil deployed left internal carotid artery aneurysm Lens Intraoc 21.0 - [id number] - [id number] Implanted:Qty: 1 on 11/08/2020 by Yuri Bradley MD at OR [facility] Left: Eye BAUSCH [employer] LOMB 06/26/2025 [id number] / [id number] / [id number] Lens Intraoc 20.5 - [id number] - [id number] Implanted:Qty: 1 on 11/22/2020 by Yuri Bradley MD at OR [facility] Right: Eye BAUSCH & LOMB 07/27/2025 [id number] / [id number] / [id number] Clip Quick 2.8mm 230cm - [id number] Implanted:Qty: 3 on 03/29/2021 by Luciana Fernandez MD at ENDOSCOPY [facility] [employer] 08/27/2023 HX-202UR. A / / Sureclip 16mm 235cm - [id number] Implanted:Qty: 2 on 05/07/2022 by Luciana Fernandez MD at ENDOSCOPY [facility] Colon MICRO TECH ENDOSCOPY 07/06/2024 [id number] / / Power Port 8fr Sngl Lumen Plas - [id number] Implanted:Qty: 1 on 01/30/2023 by Koko Santiago MD at OR [facility] N/A: Chest CR BARD : PERIPHERAL VASCULAR 07/27/2024 [id number] / / [id number] Power Port 8fr Sngl Lumen Plas - [id number] Implanted:Qty: 1 on 01/30/2023 by Koko Santiago MD at [facility] CR BARD : PERIPHERAL VASCULAR [id number] 07/27/2024 [id number] / / [id number] documented as of this encounter Visit Diagnoses Diagnosis Bronchitis, complicated- Primary Bronchitis, not specified as acute or chronic documented in this encounter Advance Directives * [...] were consensually agreed upon. Care Teams Senior Systems Architect Relationship Specialty Start Date End Date Mauro Watson DO [address] [place] [address] PCP - General Family Medicine 04/13/19 documented as of this encounter
--- OUTSIDE RECORDS SUMMARY | 2024-02-19 09:25 | External Medical Summary | Summary of Care ---
Author Name Unknown Organization [facility] Address [address] [place] [address] Phone [phone] Care Team Providers Care Customer Advocacy Manager Name Role Phone Watson Mauro Leonardogordy Primary Care Provider Reason for Visit * Reason Onset Date Comments Scheduling 12/10/2023 Encounter Details Date Type Department Care Team (Late st Contact Info) Description 12/10/2023 Telephone Hematology/Oncology [facility] [place] [address] [place] [phone] Lasha Christine [facility] [address] [facility] [address] Scheduling Allergies Active Allergy Reactions Criticality Noted [...] EGFR 72 Lumbar radiculopathy 05/27/2019 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 05/05/2019 History of colon polyps 08/12/2018 ACEI/ARB contraindicated 09/21/2016 Carotid aneurysm, left 09/13/2015 Overview: S/p coil embolization Cerebral aneurysm, nonruptured 09/05/2015 AAA (abdominal aortic aneurysm) 06/20/2015 Overview: S/p repair Bilateral carotid artery disease 06/20/2015 Medical home patient encounter 05/19/2014 Hypertriglyceridemia 05/16/2012 CORON ATHEROSCL [place] CORON VESSEL 07/11/2010 Dyslipidemia, goal LDL below [...] encounter Miscellaneous Notes * Telephone Encounter - Jane Bello CPhT - 12/10/2023 9:20 AM EDT Pt asking if he can be prescribed Paxlovid. He tested positive yesterday. [facility] uses [facility] Jane Puckett CPhT, Tech II [facility] ([facility] ([facility]) [address] [place] [address] * Telephone Encounter - Nia Javed, hospitalist - 12/10/2023 9:18 AM EDT Patient requesting to be transferred to his oncologist states that he is positive for covid. Patient transferred. Thank you, Nia Javed Assistant Passenger Locomotive Engineer I [facility]) 12/10/2023,9:19 AM documented in this encounter Plan of Treatment Upcoming Encounters Date Type Department Care Team (Late st Contact Info) Description 12/17/2023 10:00 AM EDT Appointment Vascular Lab [place] [address] [place] [address] 12/17/2023 10:30 AM EDT Office Visit Vascular Surg [place] [address] [place] [address] Margarito Cabrera MD [facility] [place] [address] 12/26/2023 8:30 AM EDT Laboratory Laboratory [facility] [address] [facility] [place] [phone] Diane, Lab Scenery [address] [facility] [place] [address] 12/26/2023 9:30 AM EDT Hem/Onc Treatment Hematology/Oncology Treatment, [place] [address] [place] [phone] Diane, Chair 1 Hem Onc Scenery [address] [place] [address] 02/13/2024 9:00 AM EDT Imaging Radiology [facility] 1st [facility] [place] [address] [place] [address] Scheduled Procedures Name Priority Associated Diagnoses Date/Ti [...] this encounter Medical Devices Implanted Type Area Emergency Veterinary Assistant Device Identifier Shelf Expiration Date Model / Serial / Lot Stent Main Body Ydnl-92-91-Zt - [id number] Implanted:Qty: 1 on 06/10/2014 by Ronal Gallegos MD at OR [facility] Aorta [employer] 04/07/2016 TFFB-24-8 2-ZT / / Graft Iliac Leg Spirlz 99i39xw - [id number] Implanted:Qty: 1 on 06/10/2014 by Ronal Gallegos MD at OR [facility] Right: Aorta [employer] GROUP 10/09/2015 [id number] / / [id number] Description: Graft Iliac Leg Spirlz 05j02uo - [id number] Implanted:Qty: 1 on 06/10/2014 by Ronal Gallegos MD at OR [facility] Right: Femoral Artery [employer] 11/07/2016 [id number] / / [id number] Stent Polmer 29mm P3110 - [id number] Implanted:Qty: 1 on 06/10/2014 by Ronal Gallegos MD at OR [facility] N/A: Aorta JNJ : CORDIS ENDOVASCULAR 07/26/2018 [id number] / / [id number] Codman Orbit Galaxy Coil 2.5mm X 3.5cm Implanted:Qty: 1 on 09/12/2015 by Arik Shin MD at OR [facility] Left: Head LENORA & LENORA CODMAN 02/26/2017 [id number] / [id number] / [id number] Description:COMPLEX XTRASOFT detachable coil deployed left internal carotid artery Codman Orbit Galaxy Coil 2.5mm X 2.5cm Implanted:Qty: 1 on 09/12/2015 by Arik Shin MD at OR [facility] Left: Head LENORA & LENORA CODMAN 01/27/2016 [id number] / [id number] / [id number] Description:COMPLEX XTRASOFT detachable coil deployed left internal carotid artery aneurysm Codman Lucas 2 Stent 4mm X 30mm Implanted:Qty: 1 on 09/12/2015 by Arik Shin MD at OR [facility] Left: Head LENORA & LNEORA DEPUY 03/26/2018 [id number] / [id number] / [id number] Description:Vascular reconst ruction device deployed in left internal carotid artery Codman Orbit Galaxy Coil 6mm X 20cm Implanted:Qty: 1 on 09/12/2015 by Arik Shin MD at OR [facility] Left: Head LENORA & LENORA CODMAN 09/26/2016 [id number] / [id number] / [id number] Description:COMPLEX FILL det achable coil deployed left internal carotid artery aneurysm Codman Orbit Galaxy Coil 4mm X 10cm Implanted:Qty: 1 on 09/12/2015 by Arik Shin MD at OR [facility] Left: Head ELNORA & LENORA CODMAN 10/27/2015 [id number] 0 / [id number] / [id number] Description:COMPLEX XTRASOFT detachable coil deployed left internal carotid artery aneurysm Codman Orbit Galaxy Coil 3.5mm X 9cm Implanted:Qty: 1 on 09/12/2015 by Arik Shin MD at OR [facility] Left: Head LENORA & LENORA CODMAN 12/28/2015 [id number] / [id number] / [id number] Description:COMPLEX XTRASOFT detachable coil deployed left internal carotid artery aneurysm Codman Orbit Galaxy Coil 3mm X 6cm Implanted:Qty: 1 on 09/12/2015 by Arik Shin MD at OR [facility] Left: Head LENORA & LENORA CODMAN 04/28/2017 [id number] / [id number] / [id number] Description:COMPLEX XTRASOFT detachable coil deployed left internal carotid artery aneurysm Lens Intraoc 21.0 - [id number] - [id number] Implanted:Qty: 1 on 11/08/2020 by Yuri Bradley MD at OR [facility] Left: Eye BAUSCH & LOMB 06/26/2025 [id number] / [id number] Lens Intraoc 20.5 - [id number] - [id number] Implanted:Qty: 1 on 11/22/2020 by Yuri Bradley MD at OR [facility] Right: Eye BAUSCH & LOMB 07/27/2025 [id number] / [id number] Clip Quick 2.8mm 230cm - [id number] Implanted:Qty: 3 on 03/29/2021 by Luciana Fernandez MD at ENDOSCOPY [facility] [employer] 08/27/2023 HX-202UR. A / / Sureclip 16mm 235cm - [id number] Implanted:Qty: 2 on 05/07/2022 by Luciana Fernandez MD at ENDOSCOPY [facility] Colon MICRO TECH ENDOSCOPY 07/06/2024 [id number] / / Power Port 8fr Sngl Lumen Plas - [id number] Implanted:Qty: 1 on 01/30/2023 by Koko Santiago MD at OR [facility] N/A: Chest CR BARD : PERIPHERAL VASCULAR 07/27/2024 [id number] / / [id number] Power Port 8fr Sngl Lumen Plas - [id number] Implanted:Qty: 1 on 01/30/2023 by Koko Santiago MD at OR [facility] CR BARD : PERIPHERAL VASCULAR [id number] 07/27/2024 [id number] / / [id number] documented as of this encounter Advance Directives [...] and were consensually agreed upon. Care Teams Customer Advocacy Manager Relationship Specialty Start Date End Date Mauro Watson DO [address] [place] [address] PCP - General Family Medicine 04/13/19 documented as of this encounter
--- OUTSIDE RECORDS SUMMARY | 2024-02-19 09:25 | External Medical Summary | Summary of Care ---
Author Name Unknown Organization [facility] Address [address] [place] [address] Phone [phone] Care Team Providers Care Orange Picker Name Role Phone Mauro Watson DO Primary Care Provider Reason for Visit * Reason Onset Date Comments Appointment 12/16/2023 Encounter Details Date Type Department Care Team (Late st Contact Info) Description 12/16/2023 Telephone Family Practice [facility] [address] [place] [address] Mauro Watson DO [address] [place] [address] Appointment Allergies Active Allergy Reactions Criticality Noted Date [...] oxyCODONE HCl 5 MG Oral Tablet (Oxy IR)Indications:Ericson static carcinoma involving liver with unknown primary [...] EGFR 72 Lumbar radiculopathy 05/27/2019 Atherosclerosis of [place] 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 05/05/2019 History of colon polyps 08/12/2018 ACEI/ARB contraindicated 09/21/2016 Carotid aneurysm, left 09/13/2015 Overview: S/p coil embolization Cerebral aneurysm, nonruptured 09/05/2015 AAA (abdominal aortic aneurysm) 06/20/2015 Overview: S/p repair Bilateral carotid artery disease 06/20/2015 Medical home patient encounter 05/19/2014 Hypertriglyceridemia 05/16/2012 CORON ATHEROSCL [place] CORON VESSEL 07/11/2010 Dyslipidemia, goal LDL below [...] encounter Miscellaneous Notes * Telephone Encounter - Enriqueta Campbell OSA - 12/16/2023 10:36 AM EDT Spoke with patient only wanted to make 2 appts for now because he is doing chemo and not sure what his schedule will look like Made appts for 04/11 and 08/13 * Telephone Encounter - Mauro Watson DO - 12/16/2023 10:15 AM EDT Please schedule with me every 4 months - schedule out in advance Ok to use private for next appointment documented in this encounter Plan of Treatment Upcoming Encounters Date Type Department Care Team (Late st Contact Info) Description 12/26/2023 8:30 AM EDT Laboratory Laboratory [facility] [place] [address] [facility] [place] [phone] Diane Lab [address] [place] [address] 12/26/2023 9:30 AM EDT Hem/Onc Treatment Hematology/Oncology Treatment, [place] [address] [place] [phone] Diane, Chair 1 Hem Onc [address] [place] [address] 01/16/2024 8:15 AM EDT Office Visit Hematology/Oncology [facility] [place] [address] [facility] [place] [phone] Lasha Christine MD [address] [facility] [place] [address] 02/10/2024 9:00 AM EDT Appointment Vascular Lab [address] [address] 02/10/2024 10:00 AM EDT Office Visit Vascular Surg [place] [address] [place] [address] Margarito Cabrera MD [facility] [place] [address] 02/13/2024 9:00 AM EDT Imaging Radiology [facility] 1st [facility], [place] [address] [place] [address] 04/11/2024 1:20 PM EST Office Visit [facility] [address] [place] [address] Mauro Watson, DO [address] [place] [address] 08/13/2024 11:40 AM EDT Office Visit [facility] [address] [place] [address] Mauro Watson, DO [address] [place] [address] Scheduled Procedures Name Priority Associated Diagnoses Date/Ti [...] this encounter Medical Devices Implanted Type Area Agricultural Equipment Test Engineer Device Identifier Shelf Expiration Date Model / Serial / Lot Stent Main Body Yvgu-82-66-Zt - [id number] Implanted:Qty: 1 on 06/10/2014 by Ronal Gallegos MD at OR [facility] Aorta [employer] GROUP 04/07/2016 TFFB-24-8 2-ZT / / Graft Iliac Leg Spirlz 33u00rj - [id number] Implanted:Qty: 1 on 06/10/2014 by Ronal Gallegos MD at OR [facility] Right: Aorta [employer] 10/09/2015 [id number] / / [id number] Description: Graft Iliac Leg Spirlz 15t61ik - [id number] Implanted:Qty: 1 on 06/10/2014 by Ronal Gallegos MD at OR [facility] Right: Femoral Artery [employer] 11/07/2016 [id number] / / [id number] Stent Polmer 29mm P3110 - [id number] Implanted:Qty: 1 on 06/10/2014 by Ronal Gallegos MD at OR [facility] N/A: Aorta JNJ : CORDIS ENDOVASCULAR 07/26/2018 P3110 / / [id number] Codman Orbit Galaxy Coil 2.5mm X 3.5cm Implanted:Qty: 1 on 09/12/2015 by Arik Shin MD at OR [facility] Left: Head LENORA & LENORA [facility] 02/26/2017 [id number] / [id number] / [id number] Description:COMPLEX XTRASOFT detachable coil deployed left internal carotid artery Codman Orbit Galaxy Coil 2.5mm X 2.5cm Implanted:Qty: 1 on 09/12/2015 by Arik Shin MD at OR [facility] Left: Head LENORA & LENORA CODMAN 01/27/2016 [id number] / [id number] / [id number] Description:COMPLEX XTRASOFT detachable coil deployed left internal carotid artery aneurysm Codman Stebbins 2 Stent 4mm X 30mm Implanted:Qty: 1 on 09/12/2015 by Arik Shin MD at OR [facility] Left: Head LENORA & LENORA DEPUY 03/26/2018 [id number] / [id number] / [id number] Description:Vascular reconst ruction device deployed in left internal carotid artery Codman Orbit Galaxy Coil 6mm X 20cm Implanted:Qty: 1 on 09/12/2015 by Arik Shin MD at OR [facility] Left: Head LENORA & LENORA [facility] 09/26/2016 [id number] / [id number] / [id number] Description:COMPLEX FILL det achable coil deployed left internal carotid artery aneurysm Codman Orbit Galaxy Coil 4mm X 10cm Implanted:Qty: 1 on 09/12/2015 by Arik Shin MD at OR [facility] Left: Head LENORA & LENORA [facility] 10/27/2015 [id number] 0 / [id number] / [id number] Description:COMPLEX XTRASOFT detachable coil deployed left internal carotid artery aneurysm Codman Orbit Galaxy Coil 3.5mm X 9cm Implanted:Qty: 1 on 09/12/2015 by Arik Shin MD at OR [facility] Left: Head LENORA & LENORA CODMAN 12/28/2015 [id number] / [id number] / [id number] Description:COMPLEX XTRASOFT detachable coil deployed left internal carotid artery aneurysm Codman Orbit Galaxy Coil 3mm X 6cm Implanted:Qty: 1 on 09/12/2015 by Arik Shin MD at OR [facility] Left: Head LENORA & LENORA CODMAN 04/28/2017 [id number] / [id number] / [id number] Description:COMPLEX XTRASOFT detachable coil deployed left internal carotid artery aneurysm Lens Intraoc 21.0 - [id number] - [id number] Implanted:Qty: 1 on 11/08/2020 by Yuri Bradley MD at OR [facility] Left: Eye BAUSCH & LOMB 06/26/2025 [id number] / [id number] / [id number] Lens Intraoc 20.5 - [id number] - [id number] Implanted:Qty: 1 on 11/22/2020 by Yuri Bradley MD at OR [facility] Right: Eye BAUSCH & LOMB 07/27/2025 [id number] / [id number] / [id number] Clip Quick 2.8mm 230cm - [id number] Implanted:Qty: 3 on 03/29/2021 by Luciana Fernandez MD at ENDOSCOPY [facility] [employer] 08/27/2023 HX-202UR. A / / Sureclip 16mm 235cm - [id number] Implanted:Qty: 2 on 05/07/2022 by Luciana Fernandez MD at ENDOSCOPY [facility] Colon MICRO TECH ENDOSCOPY 07/06/2024 [id number] / / Power Port 8fr Sngl Lumen Plas - [id number] Implanted:Qty: 1 on 01/30/2023 by Koko Santiago MD at OR [facility] N/A: Chest CR BARD : PERIPHERAL VASCULAR 07/27/2024 [id number] / / [id number] Power Port 8fr Sngl Lumen Plas - [id number] Implanted:Qty: 1 on 01/30/2023 by Koko Santiago MD at OR [facility] CR BARD : PERIPHERAL VASCULAR [id number] 07/27/2024 [id number] / / [id number] documented as of this encounter Advance Directives [...] and were consensually agreed upon. Care Teams Orange Picker Relationship Specialty Start Date End Date Mauro Watson DO [address] [place] [address] PCP - General Family Medicine 04/13/19 documented as of this encounter
--- OUTSIDE RECORDS SUMMARY | 2024-02-19 09:25 | External Medical Summary | Summary of Care ---
Author Name Unknown Organization [facility] Address [address] [place] [address] Phone [phone] Care Team Providers Care Polishing Pad Mounter Name Role Phone Mauro Watson DO Primary Care Provider Reason for Visit * Reason Onset Date Comments Medication Refill 12/12/2023 Encounter Details Date Type Department Care Team (Late st Contact Info) Description 12/12/2023 Refill Family Practice [facility] [address] [place] [address] Mauro Watson DO [address] [place] [address] Allergies Active Allergy Reactions Criticality Noted Date [...] EGFR 72 Lumbar radiculopathy 05/27/2019 Atherosclerosis of [place] co ronary artery of [place] heart with angina pectoris 05/05/2019 History of colon polyps 08/12/2018 ACEI/ARB contraindicated 09/21/2016 Carotid aneurysm, left 09/13/2015 Overview: S/p coil embolization Cerebral aneurysm, nonruptured 09/05/2015 AAA (abdominal aortic aneurysm) 06/20/2015 Overview: S/p repair Bilateral carotid artery disease 06/20/2015 Medical home patient encounter 05/19/2014 Hypertriglyceridemia 05/16/2012 CORON ATHEROSCL [place] CORON VESSEL 07/11/2010 Dyslipidemia, goal LDL below [...] encounter Miscellaneous Notes * Telephone Encounter - Nia Javed, dean of girls - 12/12/2023 9:04 AM EDT Patient calling for a refill on Prochlorperazine Maleate 10 MG Oral Tablet and Venlafaxine HCl ER 37.5 MG Oral Tablet Extended Release 24 hour release. This was last prescribed by oncology and interventional pain . Transfer to specialty refill line. Thank you, Nia Javed Handkerchief Presser I [facility] ([facility]) 12/12/2023,9:07 AM documented in this encounter Plan of Treatment Upcoming Encounters Date Type Department Care Team (Late st Contact Info) Description 12/26/2023 8:30 AM EDT Laboratory Laboratory [facility] [place] [address] [place] [phone] Diane, Lab [facility] [address] [facility] [place] [address] 12/26/2023 9:30 AM EDT Hem/Onc Treatment Hematology/Oncology Treatment, [place] [address] [place] [phone] Diane, Chair 1 Hem Onc [facility] [address] [facility] [place] [address] 01/16/2024 8:15 AM EDT Office Visit Hematology/Oncology [facility] [place] [address] [place] [phone] Lasha Christine MD [address] [place] [address] 02/10/2024 9:00 AM EDT Appointment Vascular Lab [facility] [address] [place] [address] 02/10/2024 10:00 AM EDT Office Visit Vascular Surg [facility] [address] [place] [address] Margarito Cabrera MD [address] [place] [address] 02/13/2024 9:00 AM EDT Imaging Radiology [address] [place] [address] Scheduled Procedures Name Priority Associated Diagnoses [...] this encounter Medical Devices Implanted Type Area Corrosion Prevention Metal Sprayer Device Identifier Shelf Expiration Date Model / Serial / Lot Stent Main Body Acnw-81-19-Zt - [id number] Implanted:Qty: 1 on 06/10/2014 by Ronal Gallegos MD at OR [facility] Aorta [employer] 04/07/2016 TFFB-24-8 2-ZT / / Graft Iliac Leg Spirlz 87l21mh - [id number] Implanted:Qty: 1 on 06/10/2014 by Ronal Gallegos MD at OR [facility] Right: Aorta [employer] 10/09/2015 [id number] / / [id number] Description: Graft Iliac Leg Spirlz 28p83hp - [id number] Implanted:Qty: 1 on 06/10/2014 by Ronal Gallegos MD at OR [facility] Right: Femoral Artery [employer] 11/07/2016 [id number] / / [id number] Stent Polmer 29mm P3110 - [id number] Implanted:Qty: 1 on 06/10/2014 by Ronal Gallegos MD at OR [facility] N/A: Aorta JNJ : CORDIS ENDOVASCULAR 07/26/2018 P3110 / / [id number] Codman Orbit Galaxy Coil 2.5mm X 3.5cm Implanted:Qty: 1 on 09/12/2015 by Arik Shin MD at OR [facility] Left: Head LENORA & LENORA CODMAN 02/26/2017 [id number] / [id number] / [id number] Description:COMPLEX XTRASOFT detachable coil deployed left internal carotid artery Codman Orbit Galaxy Coil 2.5mm X 2.5cm Implanted:Qty: 1 on 09/12/2015 by Arik Shin MD at OR [facility] Left: Head LENORA & LENORA CODMAN 01/27/2016 [id number] / [id number] / [id number] Description:COMPLEX XTRASOFT detachable coil deployed left internal carotid artery aneurysm Codman Ione 2 Stent 4mm X 30mm Implanted:Qty: 1 on 09/12/2015 by Arik Shin MD at OR [facility] Left: Head LENORA & LENORA DEPUY 03/26/2018 [id number] / [id number] / [id number] Description:Vascular reconst ruction device deployed in left internal carotid artery Codman Orbit Galaxy Coil 6mm X 20cm Implanted:Qty: 1 on 09/12/2015 by Arik Shin MD at OR [facility] Left: Head LENORA & LENORA CODMAN 09/26/2016 [id number] / [id number] / [id number] Description:COMPLEX FILL det achable coil deployed left internal carotid artery aneurysm Codman Orbit Galaxy Coil 4mm X 10cm Implanted:Qty: 1 on 09/12/2015 by Arik Shin MD at OR [facility] Left: Head LENORA & LENORA CODMAN 10/27/2015 [id number] 0 / [id number] / [id number] Description:COMPLEX XTRASOFT detachable coil deployed left internal carotid artery aneurysm Codman Orbit Galaxy Coil 3.5mm X 9cm Implanted:Qty: 1 on 09/12/2015 by Arik Shin MD at OR [facility] Left: Head LENORA & LENORA [employer] 12/28/2015 [id number] / [id number] / [id number] Description:COMPLEX XTRASOFT detachable coil deployed left internal carotid artery aneurysm Codman Orbit Galaxy Coil 3mm X 6cm Implanted:Qty: 1 on 09/12/2015 by Arik Shin MD at OR [facility] Left: Head LENORA & LENORA [employer] 04/28/2017 [id number] / [id number] / [id number] Description:COMPLEX XTRASOFT detachable coil deployed left internal carotid artery aneurysm Lens Intraoc 21.0 - [id number] - [id number] Implanted:Qty: 1 on 11/08/2020 by Yuri Bradley MD at OR [facility] Left: Eye BAUSCH & LOMB 06/26/2025 [id number] / [id number] / [id number] Lens Intraoc 20.5 - [id number] - [id number] Implanted:Qty: 1 on 11/22/2020 by Yuri Bradley MD at OR [facility] Right: Eye BAUSCH & LOMB 07/27/2025 [id number] / [id number] / [id number] Clip Quick 2.8mm 230cm - [id number] Implanted:Qty: 3 on 03/29/2021 by Luciana Fernandez MD at ENDOSCOPY [facility] [employer] 08/27/2023 HX-202UR. A / / Sureclip 16mm 235cm - [id number] Implanted:Qty: 2 on 05/07/2022 by Luciana Fernandez MD at ENDOSCOPY [facility] Colon MICRO TECH ENDOSCOPY 07/06/2024 [id number] / / Power Port 8fr Sngl Lumen Plas - [id number] Implanted:Qty: 1 on 01/30/2023 by Koko Santiago MD at OR [facility] N/A: Chest CR BARD : PERIPHERAL VASCULAR 07/27/2024 [id number] / / [id number] Power Port 8fr Sngl Lumen Plas - [id number] Implanted:Qty: 1 on 01/30/2023 by Koko Santiago MD at OR [facility] CR BARD : PERIPHERAL VASCULAR [id number] 07/27/2024 [id number] / / [id number] documented as of this encounter Advance Directives [...] and were consensually agreed upon. Care Teams Polishing Pad Mounter Relationship Specialty Start Date End Date Mauro Watson DO [address] [place] [address] [place] [address] PCP - General Family Medicine 04/13/19 documented as of this encounter
--- OUTSIDE RECORDS SUMMARY | 2024-02-19 09:25 | External Medical Summary | Summary of Care ---
Author Name Unknown Organization [facility] Address [address] [place] [address] Phone [phone] Care Team Providers Care Cancer Spec Name Role Phone Watson Mauro Leonardogordy Primary Care Provider Reason for Visit * Reason Onset Date Comments Scheduling 12/10/2023 Encounter Details Date Type Department Care Team (Late st Contact Info) Description 12/10/2023 Telephone Hematology/Oncology [facility] [place] [address] [place] [phone] Lasha [facility] [address] Scheduling Allergies Active Allergy Reactions Criticality Noted [...] EGFR 72 Lumbar radiculopathy 05/27/2019 Atherosclerosis of [place] co ronary artery of [place] heart with angina pectoris 05/05/2019 History of colon polyps 08/12/2018 ACEI/ARB contraindicated 09/21/2016 Carotid aneurysm, left 09/13/2015 Overview: S/p coil embolization Cerebral aneurysm, nonruptured 09/05/2015 AAA (abdominal aortic aneurysm) 06/20/2015 Overview: S/p repair Bilateral carotid artery disease 06/20/2015 Medical home patient encounter 05/19/2014 Hypertriglyceridemia 05/16/2012 CORON ATHEROSCL [place] CORON VESSEL 07/11/2010 Dyslipidemia, goal LDL [...] [facility] ([facility]) [address] [place] [address] * Telephone Encounter - Nia Javed, bradley linebacker crewmember - 12/10/2023 9:18 AM EDT Patient requesting to be transferred to his oncologist states that he is positive for covid. Patient transferred. Thank you, Nia Javed Brake Lining Curer I [facility] ([facility]) 12/10/2023,9:19 AM documented in this encounter Plan of Treatment Upcoming Encounters Date Type Department Care Team (Late st Contact Info) Description 12/17/2023 10:00 AM EDT Appointment Vascular Lab [place] [address] [place] [address] 12/17/2023 10:30 AM EDT Office Visit Vascular Surg [place] [address] [place] [address] Margarito Cabrera MD [facility] [place] [place] [address] 12/26/2023 8:30 AM EDT Laboratory Laboratory [facility] 200 [facility] [place] [phone] Diane, Lab Scenery 200 [facility] [place] [address] 12/26/2023 9:30 AM EDT Hem/Onc Treatment Hematology/Oncology Treatment, [place] [address] [place] [phone] Diane, Chair 1 Hem Onc Scenery [address] [place] [address] 02/13/2024 9:00 AM EDT Imaging Radiology [facility] 1st [facility], [place] 132 [facility] [place] [address] Scheduled Procedures Name Priority Associated Diagnoses Date/Ti [...] this encounter Medical Devices Implanted Type Area Four Slide Operator Device Identifier Shelf Expiration Date Model / Serial / Lot Stent Main Body Kzqg-75-03-Zt - [id number] Implanted:Qty: 1 on 06/10/2014 by Ronal Gallegos MD [place] [facility] Aorta [employer] 04/07/2016 TFFB-24-8 2-ZT / / Graft Iliac Leg Spirlz 26m69sd - [id number] Implanted:Qty: 1 on 06/10/2014 by Ronal Gallegos MD [place] [facility] Right: Aorta [employer] 10/09/2015 [id number] / / [id number] Description: Graft Iliac Leg Spirlz 35c39cg - [id number] Implanted:Qty: 1 on 06/10/2014 by Ronal Gallegos MD [place] [facility] Right: Femoral Artery [employer] 11/07/2016 [id number] / / [id number] Stent Polmer 29mm P3110 - [id number] Implanted:Qty: 1 on 06/10/2014 by Ronal Gallegos MD [place] [facility] N/A: Aorta JNJ : CORDIS ENDOVASCULAR 07/26/2018 P3110 / / [id number] Codman Orbit Galaxy Coil 2.5mm X 3.5cm Implanted:Qty: 1 on 09/12/2015 by Arik Shin MD [place] [facility] Left: Head LENORA & LENORA CODMAN 02/26/2017 [id number] / [id number] / [id number] Description:COMPLEX XTRASOFT detachable coil deployed left internal carotid artery Codman Orbit Galaxy Coil 2.5mm X 2.5cm Implanted:Qty: 1 on 09/12/2015 by Arik Shin MD at [place] [facility] Left: Head LENORA & LENORA CODMAN 01/27/2016 [id number] / [id number] / [id number] Description:COMPLEX XTRASOFT detachable coil deployed left internal carotid artery aneurysm Codman [place] 2 Stent 4mm X 30mm Implanted:Qty: 1 on 09/12/2015 by Arik Shin MD at [place] [facility] Left: Head LENORA & LENORA DEPUY 03/26/2018 [id number] / [id number] / [id number] Description:Vascular reconst ruction device deployed in left internal carotid artery Codman Orbit Galaxy Coil 6mm X 20cm Implanted:Qty: 1 on 09/12/2015 by Arik Shin MD at [place] [facility] Left: Head LENORA & LENORA CODMAN 09/26/2016 [id number] / [id number] / [id number] Description:COMPLEX FILL det achable coil deployed left internal carotid artery aneurysm Codman Orbit Galaxy Coil 4mm X 10cm Implanted:Qty: 1 on 09/12/2015 by Arik Shin MD at [place] [facility] Left: Head LENORA & LENORA CODMAN 10/27/2015 [id number] 0 / [id number] / [id number] Description:COMPLEX XTRASOFT detachable coil deployed left internal carotid artery aneurysm Codman Orbit Galaxy Coil 3.5mm X 9cm Implanted:Qty: 1 on 09/12/2015 by Arik Shin MD at [place] [facility] Left: Head LENORA & LENORA CODMAN 12/28/2015 [id number] / [id number] / [id number] Description:COMPLEX XTRASOFT detachable coil deployed left internal carotid artery aneurysm Codman Orbit Galaxy Coil 3mm X 6cm Implanted:Qty: 1 on 09/12/2015 by Arik Shin MD at [place] [facility] Left: Head LENORA & LENORA CODMAN 04/28/2017 [id number] / [id number] / [id number] Description:COMPLEX XTRASOFT detachable coil deployed left internal carotid artery aneurysm Lens Intraoc 21.0 - [id number] - [id number] Implanted:Qty: 1 on 11/08/2020 by Yuri Bradley MD at OR [facility] Left: Eye BAUSCH & LOMB 06/26/2025 [id number] / [id number] Lens Intraoc 20.5 - [id number] - [id number] Implanted:Qty: 1 on 11/22/2020 by Yuri Bradley MD at OR [facility] Right: Eye BAUSCH & LOMB 07/27/2025 [id number] / [id number] Clip Quick 2.8mm 230cm - [id number] Implanted:Qty: 3 on 03/29/2021 by Luciana Fernandez MD at ENDOSCOPY [facility] [employer] 08/27/2023 HX-202UR. A / / Sureclip 16mm 235cm - [id number] Implanted:Qty: 2 on 05/07/2022 by Luciana Fernandez MD at ENDOSCOPY [facility] Colon MICRO TECH ENDOSCOPY 07/06/2024 [id number] / / Power Port 8fr Sngl Lumen Plas - [id number] Implanted:Qty: 1 on 01/30/2023 by Koko Santiago MD at OR [facility] N/A: Chest CR BARD : PERIPHERAL VASCULAR 07/27/2024 [id number] / / [id number] Power Port 8fr Sngl Lumen Plas - [id number] Implanted:Qty: 1 on 01/30/2023 by Koko Santiago MD at OR [facility] CR BARD : PERIPHERAL VASCULAR [id number] 07/27/2024 [id number] / / [id number] documented as of this encounter Advance Directives [...] and were consensually agreed upon. Care Teams Cancer Spec Relationship Specialty Start Date End Date Mauro Watson DO [address] [place] [address] PCP - General Family Medicine 04/13/19 documented as of this encounter
--- OUTSIDE RECORDS SUMMARY | 2024-02-19 09:25 | External Medical Summary | Summary of Care ---
Author Name Unknown Organization [facility] Address [address] [place] [address] Phone [phone] Care Team Providers Care Public Safety Director Name Role Phone Watson Mauro Leonardogordy Primary Care Provider Reason for Visit * Reason Onset Date Comments Scheduling 12/10/2023 Encounter Details Date Type Department Care Team (Late st Contact Info) Description 12/10/2023 Telephone Hematology/Oncology [facility] [place] [address] [place] [phone] Lasha Christine MD [address] [facility] [address] Scheduling Allergies Active Allergy Reactions Criticality Noted [...] EGFR 72 Lumbar radiculopathy 05/27/2019 Atherosclerosis of [place] co ronary artery of [place] heart with angina pectoris 05/05/2019 History of colon polyps 08/12/2018 ACEI/ARB contraindicated 09/21/2016 Carotid aneurysm, left 09/13/2015 Overview: S/p coil embolization Cerebral aneurysm, nonruptured 09/05/2015 AAA (abdominal aortic aneurysm) 06/20/2015 Overview: S/p repair Bilateral carotid artery disease 06/20/2015 Medical home patient encounter 05/19/2014 Hypertriglyceridemia 05/16/2012 CORON ATHEROSCL [place] CORON VESSEL 07/11/2010 Dyslipidemia, goal LDL below [...] [facility] ([facility]) (formerly Telepharmacy) [address] [place] [address] * Telephone Encounter - Nia Javed, rivet heater - 12/10/2023 9:18 AM EDT Patient requesting to be transferred to his oncologist states that he is positive for covid. Patient transferred. Thank you, Nia Javed V Belt Builder I [facility] ([facility]) 12/10/2023,9:19 AM documented in this encounter Plan of Treatment Upcoming Encounters Date Type Department Care Team (Late st Contact Info) Description 12/17/2023 10:00 AM EDT Appointment Vascular Lab [place] [address] [place] [address] 12/17/2023 10:30 AM EDT Office Visit Vascular Surg [place] [address] [place] [address] Margarito Cabrera MD [facility] [place] [address] 12/26/2023 8:30 AM EDT Laboratory Laboratory [facility] 200 [facility] [place] [phone] Diane, Lab Scenery 200 [facility] [place] [address] 12/26/2023 9:30 AM EDT Hem/Onc Treatment Hematology/Oncology Treatment, [place] [address] [place] [phone] Diane, Chair 1 Hem Onc Scenery [address] [place] [address] 02/13/2024 9:00 AM EDT Imaging Radiology [facility] 1st [facility], [place] 132 [facility] [place] [address] Scheduled Procedures Name Priority Associated Diagnoses Date/Ti [...] this encounter Medical Devices Implanted Type Area Internet Salesperson Device Identifier Shelf Expiration Date Model / Serial / Lot Stent Main Body Hnhr-76-49-Zt - [id number] Implanted:Qty: 1 on 06/10/2014 by Ronal [place]legos MD [place] [facility] Aorta [employer] 04/07/2016 TFFB-24-8 2-ZT / / Graft Iliac Leg Spirlz 33j92yi - [id number] Implanted:Qty: 1 on 06/10/2014 by Ronal Gallegos MD [place] [facility] Right: Aorta [employer] 10/09/2015 [id number] / / [id number] Description: Graft Iliac Leg Spirlz 25c36ff - [id number] Implanted:Qty: 1 on 06/10/2014 by Ronal Gallegos MD [place] [facility] Right: Femoral Artery [employer] 11/07/2016 [id number] / / [id number] Stent Polmer 29mm P3110 - [id number] Implanted:Qty: 1 on 06/10/2014 by Ronal Gallegos MD [place] [facility] N/A: Aorta JNJ : CORDIS ENDOVASCULAR 07/26/2018 P3110 / / [id number] Codman Orbit Galaxy Coil 2.5mm X 3.5cm Implanted:Qty: 1 on 09/12/2015 by Arik Shin MD [place] [facility] Left: Head LENORA & LENORA CODMAN 02/26/2017 [id number] / [id number] / [id number] Description:COMPLEX XTRASOFT detachable coil deployed left internal carotid artery Codman Orbit Galaxy Coil 2.5mm X 2.5cm Implanted:Qty: 1 on 09/12/2015 by Arik Shin MD [place] [facility] Left: Head LENORA & LENORA CODMAN 01/27/2016 [id number] / [id number] / [id number] Description:COMPLEX XTRASOFT detachable coil deployed left internal carotid artery aneurysm Codman [place] 2 Stent 4mm X 30mm Implanted:Qty: 1 on 09/12/2015 by Arik Shin MD at [place] [facility] Left: Head LENORA & LENORA DEPUY 03/26/2018 [id number] / [id number] / [id number] Description:Vascular reconst ruction device deployed in left internal carotid artery Codman Orbit Galaxy Coil 6mm X 20cm Implanted:Qty: 1 on 09/12/2015 by Arik Shin MD [place] [facility] Left: Head LENORA & LENORA CODMAN 09/26/2016 [id number] / [id number] / [id number] Description:COMPLEX FILL det achable coil deployed left internal carotid artery aneurysm Codman Orbit Galaxy Coil 4mm X 10cm Implanted:Qty: 1 on 09/12/2015 by Arik Shin MD at [place] [facility] Left: Head LENORA & LENORA CODMAN 10/27/2015 [id number] 0 / [id number] / [id number] Description:COMPLEX XTRASOFT detachable coil deployed left internal carotid artery aneurysm Codman Orbit Galaxy Coil 3.5mm X 9cm Implanted:Qty: 1 on 09/12/2015 by Arik Shin MD at [place] [facility] Left: Head LENORA & LENORA CODMAN 12/28/2015 [id number] / [id number] / [id number] Description:COMPLEX XTRASOFT detachable coil deployed left internal carotid artery aneurysm Codman Orbit Galaxy Coil 3mm X 6cm Implanted:Qty: 1 on 09/12/2015 by Arik Shin MD [place] [facility] Left: Head LENORA & LENORA CODMAN 04/28/2017 [id number] / [id number] / [id number] Description:COMPLEX XTRASOFT detachable coil deployed left internal carotid artery aneurysm Lens Intraoc 21.0 - [id number] - [id number] Implanted:Qty: 1 on 11/08/2020 by Yuri Bradley MD at OR [facility] Left: Eye BAUSCH & LOMB 06/26/2025 [id number] / [id number] Lens Intraoc 20.5 - [id number] - [id number] Implanted:Qty: 1 on 11/22/2020 by Yuri Bradley MD at OR [facility] Right: Eye BAUSCH & LOMB 07/27/2025 [id number] / [id number] Clip Quick 2.8mm 230cm - [id number] Implanted:Qty: 3 on 03/29/2021 by Luciana Fernandez MD at ENDOSCOPY [facility] [employer] 08/27/2023 HX-202UR. A / / Sureclip 16mm 235cm - [id number] Implanted:Qty: 2 on 05/07/2022 by uLciana Fernandez MD at ENDOSCOPY [facility] Colon MICRO TECH ENDOSCOPY 07/06/2024 [id number] / / Power Port 8fr Sngl Lumen Plas - [id number] Implanted:Qty: 1 on 01/30/2023 by Koko Santiago MD at OR [facility] N/A: Chest CR BARD : PERIPHERAL VASCULAR 07/27/2024 [id number] / / [id number] Power Port 8fr Sngl Lumen Plas - [id number] Implanted:Qty: 1 on 01/30/2023 by Koko Santiago MD at OR [facility] CR BARD : PERIPHERAL VASCULAR [id number] 07/27/2024 [id number] / / [id number] documented as of this encounter Advance Directives [...] and were consensually agreed upon. Care Teams Public Safety Director Relationship Specialty Start Date End Date Mauro Watson DO [address] [place] [address] PCP - General Family Medicine 04/13/19 documented as of this encounter
--- OUTSIDE RECORDS SUMMARY | 2024-02-19 09:26 | External Medical Summary | Summary of Care ---
Author Name Unknown Organization [facility] Address [address] [place] [address] Phone [phone] Care Team Providers Care Marketing Research Analyst Name Role Phone Mauro Watson DO Primary Care Provider Reason for Visit * Reason Comments Outpatient Testing Encounter Details Date Type Department Care Team (Latest Contact Info) Description 12/05/2023 8:50 AM EDT Laboratory Laboratory [facility] [place] [address] [place] [phone] [place], Lab Scenery [address] [place] [address] Cholangiocarcinoma (HCC); Encounter for antineoplastic chemotherapy; 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); Other abnormal tumor markers Allergies Active Allergy Reactions Criticality Noted Date Comments Aspirin Bleeding High 11/26/2011 Significant hemorroidal bleed on aspirin,high doses Duloxetine Hcl Hypertension 01/26/2020 documented as of this encounter (statuses as of 12/05/2023) Medications Medication Sig Dispensed Refills Start Date [...] as of this encounter (statuses as of 12/05/2023) Active Problems Problem Noted Date Diagnosed Date Malignant neoplasm of left lung 08/23/2023 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 01/21/2023 Encounter for antineoplastic chemotherapy 2022 Medical marijuana use 08/26/2021 CKD (chronic kidney disease), stage II 2 Overview: EGFR 72 Lumbar radiculopathy 05/27/2019 Atherosclerosis of [place] co ronary artery of [place] heart with angina pectoris 05/05/2019 History of colon polyps 08/12/2018 ACEI/ARB contraindicated 09/21/2016 Carotid aneurysm, left 09/13/2015 Overview: S/p coil embolization Cerebral aneurysm, nonruptured 09/05/2015 AAA (abdominal aortic aneurysm) 06/20/2015 Overview: S/p repair Bilateral carotid artery disease 06/20/2015 Medical home patient encounter 05/19/2014 Hypertriglyceridemia 05/16/2012 CORON ATHEROSCL [place] CORON VESSEL 07/11/2010 Dyslipidemia, goal LDL below [...] as of this encounter (statuses as of 12/05/2023) Resolved Problems Problem Noted Date Diagnosed Date [...] as of this encounter (statuses as of 12/05/2023) Immunizations Name Administration Dates Next Due COVID-19 [...] Care Team (Late st Contact Info) Description 12/05/2023 11:00 AM EDT Hem/Onc Treatment Hematology/Oncology Treatment, [place] [address] [place] [phone] Diane, Chair 9 Hem Onc Scenery [address] [place] [address] Arrived 12/06/2023 11:30 AM EDT Telemedicine [facility], [facility] [address] [place] [address] Leeanna Centeno PA-C [address] [place] [address] 12/17/2023 10:00 AM EDT Appointment Vascular Lab [facility] [address] [place] [address] 12/17/2023 10:30 AM EDT Office Visit Vascular Surg [facility] [address] [place] [address] Margarito Cabrera MD [address] [place] [address] 12/26/2023 8:30 AM EDT Laboratory Laboratory [facility] [place] [address] [place] [phone] Diane, Lab [facility] 200 [facility] [place] [address] 12/26/2023 9:30 AM EDT Hem/Onc Treatment Hematology/Oncology Treatment, [place] [address] [place] [address] Diane, Chair 1 Hem Onc [facility] 200 [facility] [place] [address] Pending Results Name Type Priority Associated Diagnoses Date /Time COMPREHENSIVE METABOLIC PANEL Lab STAT Cholangiocarcinoma (HCC) Encounter for antineoplastic chemotherapy 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) Other abnormal tumor markers 12/05/2023 9:32 AM EDT CBC WITH WBC DIFFERENTIAL Lab STAT Cholangiocarcinoma (HCC) Encounter for antineoplastic chemotherapy 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) Other abnormal tumor markers 12/05/2023 9:32 AM EDT CBC Lab STAT Cholangiocarcinoma (HCC) Encounter for antineoplastic chemotherapy 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) Other abnormal tumor markers 12/05/2023 9:32 AM EDT DIFFERENTIAL, AUTOMATED Lab STAT Cholangiocarcinoma (HCC) Encounter for antineoplastic chemotherapy 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) Other abnormal tumor markers 12/05/2023 9:32 AM EDT Scheduled Procedures Name Priority Associated Diagnoses Date/Ti me COLONOSCOPY FLEXIBLE PROXIMAL DIAGNOSTIC Recall History of [...] 01/02/2023, 02/21/2022, 02/21/2022, Additional history exists GFR 11/13/2024 11/14/2023, 09/28, 10/03/2023, Additional history exists Albumin/Creatinine Ratio 05/17/2025 05/17/2022, [...] this encounter Medical Devices Implanted Type Area Shop Assistant Device Identifier Shelf Expiration Date Model / Serial / Lot Stent Main Body Lxhi-01-77-Zt - [id number] Implanted:Qty: 1 on 06/10/2014 by Ronal Gallegos MD at [place] [facility] Aorta [employer] 04/07/2016 TFFB-24-8 2-ZT / / Graft Iliac Leg Spirlz 04o49yj - [id number] Implanted:Qty: 1 on 06/10/2014 by Ronal Gallegos MD at OR [facility] Right: Aorta [employer] 10/09/2015 [id number] / / [id number] Description: Graft Iliac Leg Spirlz 13x91qr - [id number] Implanted:Qty: 1 on 06/10/2014 by Ronal Gallegos MD at OR [facility] Right: Femoral Artery [employer] 11/07/2016 [id number] / / [id number] Stent Polmer 29mm P3110 - [id number] Implanted:Qty: 1 on 06/10/2014 by Ronal Gallegos MD at OR [facility] N/A: Aorta JNJ : CORDIS ENDOVASCULAR 07/26/2018 P3110 / / [id number] Codman Orbit Galaxy Coil 2.5mm X 3.5cm Implanted:Qty: 1 on 09/12/2015 by Arik Shin MD at OR [facility] Left: Head LENORA [employer] LENORA CODMAN 02/26/2017 [id number] / [id number] / [id number] Description:COMPLEX XTRASOFT detachable coil deployed left internal carotid artery Codman Orbit Galaxy Coil 2.5mm X 2.5cm Implanted:Qty: 1 on 09/12/2015 by Arik Shin MD at OR [facility] Left: Head LENORA [employer] LENORA CODMAN 01/27/2016 [id number] / [id number] / [id number] Description:COMPLEX XTRASOFT detachable coil deployed left internal carotid artery aneurysm Codman [place] 2 Stent 4mm X 30mm Implanted:Qty: 1 on 09/12/2015 by Arik Shin MD at OR [facility] Left: Head LENORA & LENORA DEPUY 03/26/2018 [id number] / [id number] / [id number] Description:Vascular reconst ruction device deployed in left internal carotid artery Codman Orbit Galaxy Coil 6mm X 20cm Implanted:Qty: 1 on 09/12/2015 by Arik Shin MD at OR [facility] Left: Head LENORA & LENORA CODMAN 09/26/2016 [id number] / [id number] / [id number] Description:COMPLEX FILL det achable coil deployed left internal carotid artery aneurysm Codman Orbit Galaxy Coil 4mm X 10cm Implanted:Qty: 1 on 09/12/2015 by Arik Shin MD at OR [facility] Left: Head LENORA [employer] LENORA CODMAN 10/27/2015 [id number] 0 / [id number] / [id number] Description:COMPLEX XTRASOFT detachable coil deployed left internal carotid artery aneurysm Codman Orbit Galaxy Coil 3.5mm X 9cm Implanted:Qty: 1 on 09/12/2015 by Arik Shin MD at OR [facility] Left: Head LENORA & LENORA [facility] 12/28/2015 [id number] / [id number] / [id number] Description:COMPLEX XTRASOFT detachable coil deployed left internal carotid artery aneurysm Codman Orbit Galaxy Coil 3mm X 6cm Implanted:Qty: 1 on 09/12/2015 by Arik Shin MD at OR [facility] Left: Head LENORA & LENORA [facility] 04/28/2017 [id number] / [id number] / [id number] Description:COMPLEX XTRASOFT detachable coil deployed left internal carotid artery aneurysm Lens Intraoc 21.0 - [id number] - [id number] Implanted:Qty: 1 on 11/08/2020 by Yuri Bradley MD at OR [facility] Left: Eye BAUSCH & LOMB 06/26/2025 [id number] / [id number] / [id number] Lens Intraoc 20.5 - [id number] - [id number] Implanted:Qty: 1 on 11/22/2020 by Yuri Bradley MD at OR [facility] Right: Eye BAUSCH & LOMB 07/27/2025 [id number] / [id number] / [id number] Clip Quick 2.8mm 230cm - [id number] Implanted:Qty: 3 on 03/29/2021 by Luciana Fernandez MD at ENDOSCOPY [facility] [employer] 08/27/2023 HX-202UR. A / / Sureclip 16mm 235cm - [id number] Implanted:Qty: 2 on 05/07/2022 by Luciana Fernandez MD at ENDOSCOPY [facility] Colon MICRO TECH ENDOSCOPY 07/06/2024 [id number] / / Power Port 8fr Sngl Lumen Plas - [id number] Implanted:Qty: 1 on 01/30/2023 by Koko Santiago MD at OR [facility] N/A: Chest CR BARD : PERIPHERAL VASCULAR 07/27/2024 [id number] / / [id number] Power Port 8fr Sngl Lumen Plas - [id number] Implanted:Qty: 1 on 01/30/2023 by Koko Santiago MD at OR [facility] CR BARD : PERIPHERAL VASCULAR [id number] 07/27/2024 [id number] / / [id number] documented as of this encounter Visit Diagnoses [...] and were consensually agreed upon. Care Teams Marketing Research Analyst Relationship Specialty Start Date End Date Mauro Watson DO [address] [place] [address] PCP - General Family Medicine 04/13/19 documented as of this encounter
--- OUTSIDE RECORDS SUMMARY | 2024-02-19 09:26 | External Medical Summary | Summary of Care ---
Author Name Unknown Organization [facility] Address [address] [place] [address] Phone [phone] Care Team Providers Care Assembler Product Name Role Phone Watson Mauro Leonardogordy Primary Care Provider Reason for Visit * Reason Comments Follow Up L spine MRI Encounter Details Date Type Department Care Team (Late st Contact Info) Description 12/06/2023 11:30 AM EDT Telemedicine [facility], [facility] [address] [place] [address] Leeanna Centeno PA-C [address] [place] [address] Lumbar radicular pain*; Spinal stenosis of lumbar region with neurogenic claudication Allergies Active Allergy Reactions Criticality Noted Date Comments Aspirin Bleeding High 11/26/2011 Significant hemorroidal bleed on aspirin,high doses Duloxetine Hcl Hypertension 01/26/2020 documented as of this encounter (statuses as of 12/06/2023) Medications Medication Sig Dispensed Refills Start Date [...] as of this encounter (statuses as of 12/06/2023) Active Problems Problem Noted Date Diagnosed Date Malignant neoplasm of left lung 08/23/2023 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 01/21/2023 Encounter for antineoplastic chemotherapy 2022 Medical marijuana use 08/26/2021 CKD (chronic kidney disease), stage II 2 Overview: EGFR 72 Lumbar radiculopathy 05/27/2019 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 05/05/2019 History of colon polyps 08/12/2018 ACEI/ARB contraindicated 09/21/2016 Carotid aneurysm, left 09/13/2015 Overview: S/p coil embolization Cerebral aneurysm, nonruptured 09/05/2015 AAA (abdominal aortic aneurysm) 06/20/2015 Overview: S/p repair Bilateral carotid artery disease 06/20/2015 Medical home patient encounter 05/19/2014 Hypertriglyceridemia 05/16/2012 CORON ATHEROSCL [place] CORON VESSEL 07/11/2010 Dyslipidemia, goal LDL below [...] as of this encounter (statuses as of 12/06/2023) Resolved Problems Problem Noted Date Diagnosed Date [...] as of this encounter (statuses as of 12/06/2023) Immunizations Name Administration Dates Next Due COVID-19 [...] as of this encounter Progress Notes * Leeanna Centeno PA-C - 12/06/2023 11:43 AM EDT Name: Mp Vaughn Date: 12/06/2023 After connecting to the patient via telephone, the patient was identified by name and date of . Patient was then informed that this was a telephone call only visit. The patient agreed to participate. Visit Disposition: Routine follow-up Total call duration eight minutes. HPI: Mp Vaughn is a 73 year old male known to the Pain Management clinic presents for follow up to review L spine MRI. Notes at least mild reduction LE pain and paresthesia since starting effexor. Denies side effects. Locates pain right low back that radiates to buttock, lateral hip. Sharp at times. Baseline LE weakness - also questions if related to low hemoglobin. Denies progressive LE paresthesia. Denies bowel/bladder dysfunction. Using effexor, tylenol for pain relief. Undergoing chemo - Denies fevers/chills/night sweats. Denies unintentional weight loss. Reviewed L spine MRI 11/28/23 - stable study compared to 2021, no acute cmpression changes, moderateto severe central stenosis L3/4, moderate to severe B foraminal narrowing L4/5 and L5/S1 due to disc bulges and facet arthropathy. Most recent injection include: ANDERS L3/4 07/31/23 and 07/26/22 History: Past Medical History: Diagnosis Date AAA (abdominal [...] performed by Arik Shin MD at [place] [facility] CATHETER OCCLUSION/EMBOLIZATION,RISK MODELER N/A 09/12/2015 TRANSCATHETER PERMANENT ARTERIAL OCCLUSION CENTRAL NERVOUS SYSTEM performed by Arik Shin MD at [facility] COLONOSCOPY W/ LESION REMOVAL, SNARE 09/09/2006 adenomatous polyp--repeat 5 years COLONOSCOPY, DIAGNOSTIC (RECTUM) 08/15/2012 adenomatous polyp, diverticulosis, repeat 5 yrs/COLONOSCOPY FLEXIBLE PROXIMAL DIAGNOSTIC performed by Luciana Fernandez MD at ENDOSCOPY [facility] COLONOSCOPY, DIAGNOSTIC (RECTUM) 11/23/2015 adenomatous polyps, diverticulosis, andiodysplastic lesions, repeat 5 yrs/[facility] COLONOSCOPY, DIAGNOSTIC (RECTUM) 11/28/2015 colonic ulcer, diverticulosis/inpt [facility] COLONOSCOPY, DIAGNOSTIC (RECTUM) 03/29/2021 adenomatous polyps, diverticulosis, repeat 1 yr / COLONOSCOPY FLEXIBLE PROXIMAL DIAGNOSTIC performed by Luciana Fernandez MD at ENDOSCOPY [facility] COLONOSCOPY, DIAGNOSTIC (RECTUM) 05/07/2022 benign adenomatous polyps, repeat 6 mo / COLONOSCOPY FLEXIBLE PROXIMAL DIAGNOSTIC performed by Luciana Fernandez MD at ENDOSCOPY [facility] COLONOSCOPY, DIAGNOSTIC (RECTUM) 11/02/2022 resolving ischemic colitis, repeat 9 mo / COLONOSCOPY FLEXIBLE PROXIMAL DIAGNOSTIC performed by Luciana Fernandez MD at ENDOSCOPY [facility] EGD, FLEXIBLE, DIAGNOSTIC 11/23/2015 reflux esophagitis, Schatzki ring, sm /[facility] EGD, FLEXIBLE, DIAGNOSTIC 01/02/2023 hiatal hernia/gastritis/biopsies show mild gastritits of stomach/ESOPHAGOGASTRODUODENOSCOPY (EGD), FLEXIBLE, TRANSORAL, DIAGNOSTIC performed by Jory Sauceda DO at ENDOSCOPY [facility] EGD, W/ENDOSCOPIC US 01/02/2023 multiple metastatic lesions liver/ESOPHAGOGASTRODUODENOSCOPY (EGD), FLEXIBLE, TRANSORAL, ENDOSCOPICULTRASOUND performed by Jory Sauceda DO at ENDOSCOPY [facility] HEMORRHOIDECTOMY, INTERNAL, 2 + COLUMNS 06/28/2000 Internal x 3, Dr Gallego INJECT DX/THER SUBSTANCE INTERLAMINAR LUMBAR/SACRAL W IMAGE GUIDE 11/13/2018 INJECTION SPINE LUMBAR OR SACRAL performed by Deep León, DO at OR [facility] INJECT DX/THER SUBSTANCE INTERLAMINAR LUMBAR/SACRAL W IMAGE GUIDE 11/27/2018 INJECTION SPINE LUMBAR OR SACRAL performed by Deep León, DO at OR [facility] INJECT DX/THER SUBSTANCE INTERLAMINAR LUMBAR/SACRAL W IMAGE GUIDE 04/16/2019 INJECTION SPINE LUMBAR OR SACRAL performed by Deep León, DO at OR [facility] INJECT DX/THER SUBSTANCE INTERLAMINAR LUMBAR/SACRAL W IMAGE GUIDE 05/09/2020 INJECTION SPINE LUMBAR OR SACRAL performed by Deep León, DO at OR [facility] INJECT DX/THER SUBSTANCE INTERLAMINAR LUMBAR/SACRAL W IMAGE GUIDE 05/19/2020 INJECTION SPINE LUMBAR OR SACRAL performed by Deep León, DO at OR [facility] INJECT DX/THER SUBSTANCE INTERLAMINAR LUMBAR/SACRAL W IMAGE GUIDE 02/01/2022 INJECTION SPINE LUMBAR OR SACRAL performed by Wiliam Tam DO at OR [facility] INJECT DX/THER SUBSTANCE INTERLAMINAR LUMBAR/SACRAL W IMAGE GUIDE 04/02/2022 INJECTION SPINE LUMBAR OR SACRAL performed by Wiliam Tam DO at OR [facility] INJECT DX/THER SUBSTANCE INTERLAMINAR LUMBAR/SACRAL W IMAGE GUIDE 07/26/2022 INJECTION SPINE LUMBAR OR SACRAL performed by Wiliam Tam DO at OR [facility] INJECT DX/THER SUBSTANCE INTERLAMINAR LUMBAR/SACRAL W IMAGE GUIDE 07/31/2023 INJECTION SPINE LUMBAR OR SACRAL performed by Wiliam Tam DO at OR [facility] INSER TUNN ACC DEV;5 YRS/OLDER N/A 01/30/2023 INSERT TUNNELED CENTRAL VENOUS ACCESS WITH SUBQ PORT performed by Koko Santiago MD at OR [facility] INSERT ARTERY CATHETER THRU SKIN Right 06/10/2014 [...] performed by Deep León DO at OR [facility] OPEN FEMORAL ARTERY EXPOSURE FOR ENDOVASCULAR PROSTHESIS, UNILAT Bilateral 06/10/2014 bilateral femoral artery exposure by Dr. Gallegos. OTHER (INFORMATION) ACT [address] CATHETER IN ARTERIES N/A 08/31/2015 CATHETER PLACEMENT, BRACHIOCEPHALIC, THIRD ORDER BRANCH performed by Arik Shin MD at [facility] CATHETER IN ARTERIES N/A 09/12/2015 CATHETER PLACEMENT, BRACHIOCEPHALIC, THIRD ORDER BRANCH performed by Arik Shin MD at [facility] REMOVE CATARACT, INSERT LENS PROSTH Left 11/08/2020 left EXTRACAPSULAR CATARACT REMOVAL WITH INTRAOCULAR LENS performed by Yuri Bradley MD at OR [facility] REMOVE CATARACT, INSERT LENS PROSTH Right 11/22/2020 right EXTRACAPSULAR CATARACT REMOVAL WITH INTRAOCULAR LENS performed by Yuri Bradley MD at OR [facility] VERTEBRAL ARTERY CATHETER PLACEMENT Bilateral 08/20/2016 CATHETER PLACEMENT VERTEBRAL ARTERY, performed by Arik Shin MD at [facility] Current Outpatient Medications Medication Sig Dispense Refill [...] mouth every 8 hours if needed for [id number] Tablet 2 Lidocaine-Prilocaine 2.5-2.5 % External Cream (Emla) APPLY TO SKIN OVER MEDIPORT & COVER 1HR PRIOR TO ACCESSING. 30 g 1 Ondansetron HCl 8 MG Oral Tablet Take 1 Tablet by mouth every 8 hours as needed for Nausea. 30 Tablet 3 Prochlorperazine Maleate 10 MG Oral Tablet (Compazine) Take 1 Tablet by mouth every 6 hours as needed for Nausea. 60 Tablet 2 oxyCODONE HCl 5 MG Oral Tablet (Oxy [...] day before the chemotherapy. 36 Tablet 1 No current facility-administered medications for this visit. Review of patient's allergies indicates: Allergen Reactions Aspirin Bleeding Significant hemorroidal bleed on aspirin,high doses Cymbalta [Duloxetine Hcl] Hypertension IMAGING: MRI L SPINE WO CONTRAST - 11/28/2023 Paramagnetic susceptibility artifact generated by Aorta bi-iliac endograft stents are noted. Otherwise, there is mild dextrocurvature of the lumbar spine. The lumbar lordosis is preserved. There is mild retrolisthesis of L2 on L3. Vertebral body heights are maintained. Multilevel disc desiccation disc space narrowing are noted. No definite marrow replacing lesion is noted in the visualizedlumbar spine. The conus medullaris terminates normally at L1 level. Multilevel degenerative changesof the lumbar spine are noted, detailed below. L2-3: Endplate osteophytes with mild diffuse disc bulge and bilateral facet arthropathy contribute to mild left and oszc-ju-ljrvjily right neural foraminal narrowing. No significant spinal canal stenosis. L3-4: Endplate osteophyte with mild diffuse disc bulge and bilateral facet arthropathy contribute to left more than right partial effacement of the lateral recesses and moderate to severe spinal canal stenosis. There is also tyvu-gk-erlpfwdf bilateral neural foraminal narrowing. L4-5: Diffuse disc bulge with bilateral facet arthropathy contribute to moderate to severe bilateral neural foraminal narrowing. No significant spinal canal stenosis. L5-S1: Diffuse disc bulge with bilateral facet arthropathy contribute to moderate to severe right neural foraminal narrowing. No significant spinal canal stenosis. Known hepatic metastases is again noted. Left adrenal adenoma is again noted. Tiny left renal cystsare noted. IMPRESSION: 1. Multilevel degenerative changes of the lumbar spine, most pronounced at L3-L4 with ljhajylp-ns-mpdosi spinal canal stenosis. Findings are not significantly changed when compared to MRI lumbar spine dated 05/18/2021. 2. Known hepatic metastases is again noted. ASSESSMENT: Lumbar radicular pain Lumbar spinal stenosis RECOMMENDATION: Chronic low back, buttock and ang ain. Can impact ADL depending on severity. Frustrated as it can wax and wane. Personally reviewed L spine MRI 11/28/23 - stable study compared to 2021, no acute compression changes, moderate to severe central stenosis L3/4, moderate to severe B foraminal narrowing L4/5 and L5/S1 due to disc bulges and facet arthropathy. Discussed ANDERS as this has provided relief in the past, noting the most recent injection in June was odd to not provide significant benefit. Risks of ANDERS including, but not limited to epidural hematoma, infection, worsening pain, failure to alleviate pain, nerve injury and possible steroid side effects were reviewed. Pre-procedure instructions reviewed - needs pile driver, no prescription medication holds. Due to severity and duration of symptoms, will schedule interlaminar ANDERS L4/5. Doing well on effexor, continue same dose. Denies unwanted side effects. Although notes significantfinancial burden. Total call duration eight minutes. Leeanna Centeno PA-C 12/06/2023 documented in this encounter Plan of Treatment Upcoming Encounters Date Type Department Care Team (Late st Contact Info) Description 12/17/2023 10:00 AM EDT Appointment Vascular Lab [address] [address] 12/17/2023 10:30 AM EDT Office Visit Vascular Surg [address] [address] Margarito Cabrera MD [facility] [place] [address] 12/26/2023 8:30 AM EDT Laboratory Laboratory [facility] [address] [place] [id number] [place], Lab Sc[address] [facility] [place] [address] 12/26/2023 9:30 AM EDT Hem/Onc Treatment Hematology/Oncology Treatment, [place] [address] [place] [id number] Diane, Chair 1 Hem Onc Scenery [address] [place] [address] 02/13/2024 9:00 AM EDT Imaging Radiology [facility] 1st [facility], [place] [address] [facility] [place] [address] Scheduled Orders Name Type Priority Associated Diagnoses Orde r Schedule INJECT DX/THER SUBSTANCE INTERLAMINAR LUMBAR/SACRAL W IMAGE GUIDE Procedures Routine Lumbar radicular pain Spinal stenosis of lumbar region with neurogenic claudication Expected: 03/07/2024 (Approximate), Expires: 01/05/2025 Scheduled Procedures Name Priority Associated Diagnoses Date/Ti [...] this encounter Medical Devices Implanted Type Area Knot Tier Device Identifier Shelf Expiration Date Model / Serial / Lot Stent Main Body [id number] - [id number] Implanted:Qty: 1 on 06/10/2014 by Ronal Gallegos MD at [place] [facility] Aorta [employer] 04/07/2016 [id number] / / Graft Iliac Leg Spirlz 73s65aq - [id number] Implanted:Qty: 1 on 06/10/2014 by Ronal Gallegos MD at [facility] Right: Aorta [employer] 10/09/2015 [id number] / / [id number] Description: Graft Iliac Leg Spirlz 42s73fq - [id number] Implanted:Qty: 1 on 06/10/2014 by Ronal Gallegos MD at [facility] Right: Femoral Artery [employer] 11/07/2016 [id number] / / [id number] Stent Polmer 29mm P3110 - [id number] Implanted:Qty: 1 on 06/10/2014 by Ronal Gallegos MD at [facility] N/A: Aorta JNJ : CORDIS ENDOVASC[employer] 07/26/2018 [id number] / / [id number] Codman Orbit Galaxy Coil 2.5mm X 3.5cm Implanted:Qty: 1 on 09/12/2015 by Arik Shin MD at [facility] Left: Head [facility] 02/26/2017 [id number] / [id number] / [id number] Description:COMPLEX XTRASOFT detachable coil deployed left internal carotid artery [employer]man Orbit Galaxy Coil 2.5mm X 2.5cm Implanted:Qty: 1 on 09/12/2015 by Arik Shin MD at [place] [facility] Left: Head [employer] 01/27/2016 [id number] / [id number] / [id number] Description:COMPLEX XTRASOFT detachable coil deployed left internal carotid artery aneurysm Codman Foster 2 Stent 4mm X 30mm Implanted:Qty: 1 on 09/12/2015 by Arik Shin MD at [place] [facility] Left: Head [employer]EN[employer]A DEPUY 03/26/2018 [id number] / [id number] / [id number] Description:Vascular reconst ruction device deployed in left internal carotid artery Codman Orbit Galaxy Coil 6mm X 20cm Implanted:Qty: 1 on 09/12/2015 by Arik Shin MD at [place] [facility] Left: Head [employer] 09/26/2016 [id number] / [id number] / [id number] Description:COMPLEX FILL det achable coil deployed left internal carotid artery aneurysm Codman Orbit Galaxy Coil 4mm X 10cm Implanted:Qty: 1 on 09/12/2015 by Arik Shin MD at [facility] Left: Head [employer] 10/27/2015 [id number] / [id number] / [id number] Description:COMPLEX XTRASOFT detachable coil deployed left internal carotid artery aneurysm [employer] Orbit Galaxy Coil 3.5mm X 9cm Implanted:Qty: 1 on 09/12/2015 by Arik Shin MD at [facility] Left: Head [employer] 12/28/2015 [id number] / [id number] / [id number] Description:COMPLEX XTRASOFT detachable coil deployed left internal carotid artery aneurysm [employer] Orbit Galaxy Coil 3mm X 6cm Implanted:Qty: 1 on 09/12/2015 by Arik Shin MD at [facility] Left: Head [employer] 04/28/2017 [id number] / [id number] / [id number] Description:COMPLEX XTRASOFT detachable coil deployed left internal carotid artery aneurysm Lens Intraoc 21.0 - [id number] - [id number] Implanted:Qty: 1 on 11/08/2020 by Yuri Bradley MD at OR [facility] Left: Eye [employer]OMB 06/26/2025 [id number] / [id number] / [id number] Lens Intraoc 20.5 - [id number] - [id number] Implanted:Qty: 1 on 11/22/2020 by Yuri Bradley MD at OR [facility] Right: Eye [employer] LOMB 07/27/2025 [id number] / [id number] / [id number] Clip Quick 2.8mm 230cm - [id number] Implanted:Qty: 3 on 03/29/2021 by Luciana Fernandez MD at ENDOSCOPY [facility] [employer] 08/27/2023 [id number]. [id number] / / Sureclip 16mm 235cm - [id number] Implanted:Qty: 2 on 05/07/2022 by Luciana Fernandez MD at ENDOSCOPY [facility] Colon MICRO TECH ENDOSCOPY 07/06/2024 [id number] / / Power Port 8fr Sngl Lumen Plas - [id number] Implanted:Qty: 1 on 01/30/2023 by Koko Santiago MD at OR [facility] N/A: Chest CR BARD : PERIPHERAL VASCULAR 07/27/2024 [id number] / / [id number] Power Port 8fr Sngl Lumen Plas - [id number] Implanted:Qty: 1 on 01/30/2023 by Koko Santiago MD at OR [facility] CR BARD : PERIPHERAL VASCULAR [id number] 07/27/2024 [id number] / / [id number] documented as of this encounter Visit Diagnoses Diagnosis Lumbar radicular pain- Primary Thoracic or lumbosacral neuritis or radiculitis, unspecified Spinal stenosis of lumbar region with neurogenic claudication Spinal stenosis, lumbar region, with neurogenic claudication documented in this encounter Advance Directives * Full Code (Latest Code Status on File) Date Activated Date Inactivated Comments 09/12/2015 11:01 AM 09/13/2015 2:50 PM This order reflects the patients wishes and were consensually agreed upon. * Full Code Date Activated Date Inactivated Comments 06/10/2014 10:48 AM 06/11/2014 8:37 PM This order reflects the patients wishes and were consensually agreed upon. Care Teams Assembler Product Relationship Specialty Start Date End Date Mauro Watson DO [address] [facility] [place] [address] PCP - General Family Medicine 04/13/19 documented as of this encounter
--- OUTSIDE RECORDS SUMMARY | 2024-02-19 09:26 | External Medical Summary | Summary of Care ---
Author Name Unknown Organization [facility] Address [address] [place] [address] Phone [phone] Care Team Providers Care Boiler Mechanic Name Role Phone Mauro Watson DO Primary Care Provider Reason for Visit * Reason Comments Chemotherapy C6 Alimta * Episode Based Medications (Routine) - Authorized Specialty Diagnoses / Procedures Referred By Contac t Referred To Contact Diagnoses Encounter for antineoplastic chemotherapy 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) Malignant neoplasm of left lung, unspecified part of lung (HCC) Procedures DC INJ. PEMETREXED NOS 10MG DC CARBOPLATIN INJECTION DC FOSAPREPITANT INJECTION Lasha Christine MD [address] [place] [address] Anc Hem/Onc [address] [phone] Referral ID Status Reason Start Date Expiration Date V isits Requested Visits Authorized [id number] Authorized 08/22/2023 04/28/2099 999 99 Encounter Details Date Type Department Care Team (Latest Contact Info) Description 12/05/2023 11:00 AM EDT Hem/Onc Treatment Hematology/Oncolog y Treatment, [address] [phone] Diane Chair 9 Hem Onc [address] [place] [address] Encounter for antineoplastic chemotherapy*; Metastatic carcinoma involving [...] EGFR 72 Lumbar radiculopathy 05/27/2019 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 VS taken when he was in seat. [...] 11:30 AM EDT Telemedicine Interventional [facility], [facility] [address] [place] [address] Leeanna Centeno PA-C [address] [facility] [place] [address] 12/17/2023 10:00 AM EDT Appointment Vascular Lab [facility] [address] [place] [address] 12/17/2023 10:30 AM EDT Office Visit Vascular Surg [place] [address] [place] [address] Margarito Cabrera MD [address] [place] [address] 12/26/2023 8:30 AM EDT Laboratory Laboratory [facility] [place] [address] [facility] [phone] Zeyad [address] [facility] [place] [address] 12/26/2023 9:30 AM EDT Hem/Onc Treatment Hematology/Oncology Treatment, [place] [address] [place] [phone] Diane, Chair 1 Hem Onc [address] [place] [address] Scheduled Procedures Name Priority Associated Diagnoses Date/Ti [...] this encounter Medical Devices Implanted Type Area Conference Reservationist Device Identifier Shelf Expiration Date Model / Serial / Lot Stent Main Body Kdoa-20-16-Zt - [id number] Implanted:Qty: 1 on 06/10/2014 by Ronal Gallegos MD at [place] [facility] [place] Aorta [employer] 04/07/2016 TFFB-24-8 2-ZT / / Graft Iliac Leg Spirlz 25i41nl - [id number] Implanted:Qty: 1 on 06/10/2014 by Ronal Gallegos MD at OR [facility] [place] Right: Aorta [employer] 10/09/2015 [id number] / / [id number] Description: Graft Iliac Leg Spirlz [id number] - [id number] Implanted:Qty: 1 on 06/10/2014 by Ronal Gallegos MD at OR [facility] [place] Right: Femoral Artery [employer] 11/07/2016 [id number] / / [id number] Stent Polmer 29mm P3110 - [id number] Implanted:Qty: 1 on 06/10/2014 by Ronal Gallegos MD at OR [facility] [place] N/A: Aorta JNJ : CORDIS ENDOVASCULAR 07/26/2018 [id number] / / [id number] Codman Orbit Galaxy Coil 2.5mm X 3.5cm Implanted:Qty: 1 on 09/12/2015 by Arik Shin MD at OR [facility] [place] Left: Head LENORA [employer] LENORA CODMAN 02/26/2017 [id number] / [id number] / [id number] Description:COMPLEX XTRASOFT detachable coil deployed left internal carotid artery Codman Orbit Galaxy Coil 2.5mm X 2.5cm Implanted:Qty: 1 on 09/12/2015 by Arik Shin MD at OR [facility] [place] Left: Head LENORA & LENORA CODMAN 01/27/2016 [id number] / [id number] / [id number] Description:COMPLEX XTRASOFT detachable coil deployed left internal carotid artery aneurysm Codman [place] 2 Stent 4mm X 30mm Implanted:Qty: 1 on 09/12/2015 by Arik Shin MD at OR [facility] [place] Left: Head LENORA & LENORA DEPUY 03/26/2018 [id number] / [id number] / [id number] Description:Vascular reconst ruction device deployed in left internal carotid artery Codman Orbit Galaxy Coil 6mm X 20cm Implanted:Qty: 1 on 09/12/2015 by Arik Shin MD at OR [facility] [place] Left: Head LENORA [employer] LENORA CODMAN 09/26/2016 [id number] / [id number] / [id number] Description:COMPLEX FILL det achable coil deployed left internal carotid artery aneurysm Codman Orbit Galaxy Coil 4mm X 10cm Implanted:Qty: 1 on 09/12/2015 by Arik Shin MD at OR [facility] [place] Left: Head LENORA & LENORA CODMAN 10/27/2015 [id number] / [id number] / [id number] Description:COMPLEX XTRASOFT detachable coil deployed left internal carotid artery aneurysm Codman Orbit Galaxy Coil 3.5mm X 9cm Implanted:Qty: 1 on 09/12/2015 by Arik Shin MD at OR [facility] [place] Left: Head LENORA & LENORA CODMAN 12/28/2015 [id number] / [id number] / [id number] Description:COMPLEX XTRASOFT detachable coil deployed left internal carotid artery aneurysm Codman Orbit Galaxy Coil 3mm X 6cm Implanted:Qty: 1 on 09/12/2015 by Arik Shin MD at OR [facility] [place] Left: Head LENORA & LENORA CODMAN 04/28/2017 [id number] / [id number] / [id number] Description:COMPLEX XTRASOFT detachable coil deployed left internal carotid artery aneurysm Lens Intraoc 21.0 - [id number] - [id number] Implanted:Qty: 1 on 11/08/2020 by Yuri Bradley MD at OR [facility] Left: Eye BAUSCH & LOMB 06/26/2025 [id number] / [id number] Lens Intraoc 20.5 - [id number] - [id number] Implanted:Qty: 1 on 11/22/2020 by Yuri Bradley MD at OR [facility] Right: Eye BAUSCH & LOMB 07/27/2025 [id number] / [id number] Clip Quick 2.8mm 230cm - [id number] Implanted:Qty: 3 on 03/29/2021 by Luciana Fernandez MD at ENDOSCOPY [facility] [employer] 08/27/2023 HX-202UR. A / / Sureclip 16mm 235cm - [id number] Implanted:Qty: 2 on 05/07/2022 by Luciana Fernandez MD at ENDOSCOPY [facility] Colon MICRO TECH ENDOSCOPY 07/06/2024 [id number] / / Power Port 8fr Sngl Lumen Plas - [id number] Implanted:Qty: 1 on 01/30/2023 by Koko Santiago MD at OR [facility] N/A: Chest CR BARD : PERIPHERAL VASCULAR 07/27/2024 [id number] / / [id number] Power Port 8fr Sngl Lumen Plas - [id number] Implanted:Qty: 1 on 01/30/2023 by Koko Santiago MD at [facility] CR BARD : PERIPHERAL VASCULAR [id number] 07/27/2024 [id number] / / [id number] documented as of this encounter Visit Diagnoses [...] PRN Other, Hypersensitivity Reaction, Starting on Lizz 12/05/23 at 1048, Until Sat12/06/23 at 1047, For 24 hours EPINEPHrine 1 MG/ML inj 0.3 mg 0.3 mg, Intramuscular, ONCE PRN Other, Hypersensitivity Reaction or Anaphylaxis, Starting on Sat12/05/23 at 1048, Until Sat12/06/23 at 1047, For 24 hours hEParin 100 UNIT/ML Lock Flush inj 500 Units 500 Units (5 mL), IV Lock, PRN Other, IV Flush, Starting on Sat12/05/23 at 1048, Until Sat12/06/23 at 1047, For 24 hours, Do not flush if lock, PICC, or central line not in place; IV infusing or unable to flush. Given 12/05/2023 2:17 PM EDT 500 Units Hydrocortisone Sod Suc (PF) (Solu-Cortef) inj 100 mg 100 mg, IV Push, ONCE PRN Other, Hypersensitivity Reaction, Starting on Sat12/05/23 at 1048, Until Sat12/06/23 at 1047, For 24 hours NSS infusion Intravenous, at 50 mL/hr, PRN, Starting on Sat12/05/23 at 1200, Until Discontinued, Maintenance line Start Infusion 12/05/2023 11:47 AM EDT 50 mL/hr oxygen GAS Inhalation, OXYGEN, First dose on Sat12/05/23 at 1130, Until Discontinued, Device/Managed by: Low Flow Device, [...] Push, PRN Other, IV Flush, Starting on Sat12/05/23 at 1048, Until Sat12/06/23 at 1047, For 24 hours, Do not flush if lock, PICC, or central line not in place; IV infusing or unable to flush. Given 12/05/2023 2:16 PM EDT 10 mL Inactive Administered Medications - up to 3 most recent administrations Medication Order MAR Action Action Date Dose Rate Site NSS infusion FOR HYDRATION Intravenous, at 500 mL/hr Administer over 2 Hours, ONCE, 1 dose, On Lizz 12/05/23 at 1130 Start Infusion 12/05/2023 12:08 PM EDT 1,000 mL 500 mL/hr ondansetron (Zofran) [...] 11:56 AM EDT 900 mg 630 mL/hr vitamin b-12 (Cyanocobalamin) inj 1,000 mcg 1,000 [...] and were consensually agreed upon. Care Teams Boiler Mechanic Relationship Specialty Start Date End Date Mauro Watson DO [address] [place] [address] PCP - General Family Medicine 04/13/19 documented as of this encounter
--- OUTSIDE RECORDS SUMMARY | 2024-02-19 09:26 | External Medical Summary | Summary of Care ---
Author Name Unknown Organization [facility] Address [address] [place] [address] Phone [phone] Care Team Providers Care Hose Tester Name Role Phone Mauro Watson DO Primary Care Provider Reason for Visit * Reason Comments Chemotherapy C5/D1 - Alimta, Carb oplatin * Episode Based Medications (Routine) - Authorized Specialty Diagnoses / Procedures Referred By Edmund t Referred To Contact Diagnoses Encounter for antineoplastic chemotherapy 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) Malignant neoplasm of left lung, unspecified part of lung (HCC) Procedures SC INJ. PEMETREXED NOS 10MG [place] CARBOPLATIN INJECTION SC FOSAPREPITANT INJECTION Lasha Christine MD [address] [place] [address] Anc Hem/Onc [address] [address] Referral ID Status Reason Start Date Expiration Date V isits Requested Visits Authorized [id number] Authorized 08/22/2023 04/28/2099 999 99 Encounter Details Date Type Department Care Team (Latest Contact Info) Description 11/14/2023 8:15 AM EDT Hem/Onc Treatment Hematology/Oncolog y Treatment, [address] [phone] Diane, Chair 7 Hem Onc [address] [place] [address] Encounter for antineoplastic chemotherapy*; Metastatic carcinoma involving [...] Oral Tablet (Lopressor)Indicat ions:HTN, goal below 140/90 TAKE 1/2 TAB BY MOUTH TWICE DAILY 90 Tablet 3 03/31/2023 4 Discontinue d(Refill) dexAMETHasone 4 MG Oral TabletIndications: 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),Malignant neoplasm of left lung, unspecified part of lung (HCC) One tablet twice a day for 3 days only, starting one day before the chemotherapy. 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 Possible barriers to meeting goals: ambulating with IV pole Stability of the patient: Moderately stable - low risk of patient condition declining or worsening Summary regarding today's goals: Met: patient remained free of harm today Patient tolerated treatment well without any acute issues or problems. Patient left facility in stable condition and denied any further needs. * Niecy Levin RN - 11/14/2023 8:38 AM EDT Chair 10. Port accessed. Patient saw Dr. Christine today -- see OV note for details. Chemotherapy/Immunotherapy agents: ALIMTA and CARBOPLATIN Consent for chemotherapy drug treatment complete, dated, and signed? yes, date - 08/22/2023 Treatment lab parameters met? Yes Has treatment weight changed > than 10%? No Treatment preauthorized? Yes VITALS There were no vitals filed for this visit. Urine protein: N/A Patient education completed for treatment? Yes Blood transfusion consent signed and complete? NA Return appointment scheduled? Yes Patient had provider visit today? Yes - Ok to release order and treat per provider Functional Status: Functional status at today's visit: Fully active, able to carry on all pre-disease performance without restriction The drug name, dose, infusion volume, rate [...] 11:30 AM EDT Telemedicine Interventional Pain Center, [facility] [address] [place] [address] Leeanna Centeno PA-C [address] [place] [address] 12/17/2023 10:00 AM EDT Appointment Vascular Lab [place] [address] [place] [address] 12/17/2023 10:30 AM EDT Office Visit Vascular Surg [place] [address] [place] [address] Margarito Cabrera MD [address] [place] [address] 12/26/2023 8:30 AM EDT Laboratory Laboratory [facility] [address] [place] [phone] Diane, Lab Scene [address] [facility] [place] [address] 12/26/2023 9:30 AM EDT Hem/Onc Treatment Hematology/Oncology Treatment, [place] [address] [facility] [phone] Diane, Chair 1 Hem Onc [facility] [address] [facility] [place] [address] Scheduled Procedures Name Priority Associated Diagnoses Date/Ti [...] this encounter Medical Devices Implanted Type Area School Traffic Guard Device Identifier Shelf Expiration Date Model / Serial / Lot Stent Main Body Hcxj-01-85-Zt - [id number] Implanted:Qty: 1 on 06/10/2014 by Ronal Gallegos MD at [place] [facility] [place] Aorta [employer] 04/07/2016 TFFB-24-8 2-ZT / / Graft Iliac Leg Spirlz [id number] - [id number] Implanted:Qty: 1 on 06/10/2014 by Ronal Gallegos MD at OR [facility] [place] Right: Aorta [employer] 10/09/2015 [id number] / / [id number] Description: Graft Iliac Leg Spirlz [id number] - [id number] Implanted:Qty: 1 on 06/10/2014 by Ronal Gallegos MD at OR [facility] [place] [facility] Right: Femoral Artery [employer] 11/07/2016 [id number] / / [id number] Stent Polmer 29mm P3110 - [id number] Implanted:Qty: 1 on 06/10/2014 by Ronal Gallegos MD at OR [facility] [place] [facility] N/A: Aorta JNJ : CORDIS ENDOVASCULAR 07/26/2018 P3110 / / [id number] Codman Orbit Galaxy Coil 2.5mm X 3.5cm Implanted:Qty: 1 on 09/12/2015 by Arik Shin MD at OR [facility] [place] Left: Head LENORA [employer] LENORA CODMAN 02/26/2017 [id number] / [id number] / [id number] Description:COMPLEX XTRASOFT detachable coil deployed left internal carotid artery Codman Orbit Galaxy Coil 2.5mm X 2.5cm Implanted:Qty: 1 on 09/12/2015 by Arik Shin MD at OR [facility] [place] Left: Head LENORA [employer] LENORA CODMAN 01/27/2016 [id number] / [id number] / [id number] Description:COMPLEX XTRASOFT detachable coil deployed left internal carotid artery aneurysm Codman [place] 2 Stent 4mm X 30mm Implanted:Qty: 1 on 09/12/2015 by Airk Shin MD at OR [facility] [place] Left: Head LENORA [employer] LENORA DEPUY 03/26/2018 [id number] / [id number] / [id number] Description:Vascular reconst ruction device deployed in left internal carotid artery Codman Orbit Galaxy Coil 6mm X 20cm Implanted:Qty: 1 on 09/12/2015 by Arik Shin MD at OR [facility] [place] Left: Head LEN[employer]A [employer] LENORA CODMAN 09/26/2016 [id number] / [id number] / [id number] Description:COMPLEX FILL det achable coil deployed left internal carotid artery aneurysm Codman Orbit Galaxy Coil 4mm X 10cm Implanted:Qty: 1 on 09/12/2015 by Arik Shin MD at OR [facility] [place] Left: Head LENORA [employer] LENORA CODMAN 10/27/2015 [id number] / [id number] / [id number] Description:COMPLEX XTRASOFT detachable coil deployed left internal carotid artery aneurysm Codman Orbit Galaxy Coil 3.5mm X 9cm Implanted:Qty: 1 on 09/12/2015 by Arik Shin MD at OR [facility] [place] Left: Head LENORA & LENORA CODMAN 12/28/2015 [id number] / [id number] / [id number] Description:COMPLEX XTRASOFT detachable coil deployed left internal carotid artery aneurysm Codman Orbit Galaxy Coil 3mm X 6cm Implanted:Qty: 1 on 09/12/2015 by Arik Shin MD at OR [facility] [place] Left: Head LENORA [employer] LENORA CODMAN 04/28/2017 [id number] / [id number] / [id number] Description:COMPLEX XTRASOFT detachable coil deployed left internal carotid artery aneurysm Lens Intraoc 21.0 - [id number] - [id number] Implanted:Qty: 1 on 11/08/2020 by Yuri Bradley MD at OR [facility] Left: Eye BAUSCH & LOMB 06/26/2025 [id number] / [id number] / [id number] Lens Intraoc 20.5 - [id number] - [id number] Implanted:Qty: 1 on 11/22/2020 by Yuri Bradley MD at OR [facility] Right: Eye BAUSCH & LOMB 07/27/2025 [id number] / [id number] / [id number] Clip Quick 2.8mm 230cm - [id number] Implanted:Qty: 3 on 03/29/2021 by Luciana Fernandez MD at ENDOSCOPY [facility] [employer] 08/27/2023 HX-202UR. A / / Sureclip 16mm 235cm - [id number] Implanted:Qty: 2 on 05/07/2022 by Luciana Fernandez MD at ENDOSCOPY [facility] Colon MICRO TECH ENDOSCOPY 07/06/2024 [id number] / / Power Port 8fr Sngl Lumen Plas - [id number] Implanted:Qty: 1 on 01/30/2023 by Koko Santiago MD at OR [facility] N/A: Chest CR BARD : PERIPHERAL VASCULAR 07/27/2024 [id number] / / [id number] Power Port 8fr Sngl Lumen Plas - [id number] Implanted:Qty: 1 on 01/30/2023 by Koko Santiago MD at OR [facility] CR BARD : PERIPHERAL VASCULAR [id number] 07/27/2024 [id number] / / [id number] documented as of this encounter Visit Diagnoses Diagnosis Encounter for antineoplastic chemotherapy- Primary 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) Malignant neoplasm of left lung, unspecified part of lung (HCC) documented in this encounter Administered Medications Inactive Administered Medications - up to 3 most recent administrations Medication Order MAR Action Action Date Dose Rate Site CARBOplatin (Paraplatin) 454 mg in D5W 250 mL infusion 454 mg (rounded from 453.5 mg, Target AUC = 5), IV Piggyback, at 510 mL/hr Administer over 30 Minutes, PROTECT FROM LIGHT Administer 30 min after Alimta complete. (Max Creatinine Clearance at 125 ml/min for calculating AUC dose), ONCE, 1 dose, On Lizz 11/14/23 at 0930 Start Infusion 11/14/2023 10:33 AM EDT 454 mg 510 mL/hr Fosaprepitant Dimeglumine (Emend) 150 mg, ondansetron (Zofran) 16 mg, dexamethasone sodium phosphate 12 mg in NSS 250 mL Infusion 150 mg, IV Piggyback, ONCE, 1 dose, On Lizz 11/14/23 at 0930, Administer over 30 Minutes, Give 30 minutes prior to chemotherapy. Infuse over 30 minutes. Start Infusion 11/14/2023 8:36 AM EDT 150 mg 538.4 mL/hr hEParin 100 UNIT/ML Lock Flush inj 500 Units 500 Units (5 mL), IV Lock, PRN Other, IV Flush, Starting on Lizz 11/14/23 at 0822, Until Lizz 11/14/23 at 1735, For 24 hours, Do not flush if lock, PICC, or central line not in place; IV infusing or unable to flush. Given 11/14/2023 1:18 PM EDT 500 Units NSS infusion FOR HYDRATION Intravenous, at 500 mL/hr Administer over 2 Hours, ONCE, 1 dose, On Lizz 11/14/23 at 0900 Start Infusion 11/14/2023 11:11 AM EDT 1,000 mL 500 mL/hr NSS infusion Intravenous, at 50 mL/hr, PRN, Starting on Lizz 11/14/23 at 0930, Until Lizz 11/14/23 at 1735, Maintenance line Restarted 11/14/2023 11:12 AM EDT 50 mL/hr Start Infusion 11/14/2023 8:35 AM EDT 50 mL/hr PEMEtrexed Disodium (Alimta) 900 mg in NSS 100 mL infusion 900 mg (rounded from 925 mg = 500 mg/m2 1.85 m2 Treatment Plan BSA from Recorded weight), IV Piggyback, ONCE, 1 dose, On Lizz 11/14/23 at 1000, Administer over 10 Minutes Start Infusion 11/14/2023 9:15 AM EDT 900 mg 630 mL/hr sodium chloride 0.9 % flush central line 10 mL 10 mL, IV Push, PRN Other, IV Flush, Starting on Lizz 11/14/23 at 0822, Until Lizz 11/14/23 at 1735, For 24 hours, Do not flush if lock, PICC, or central line not in place; IV infusing or unable to flush. Given 11/14/2023 1:18 PM EDT 10 mL documented in this [...] and were consensually agreed upon. Care Teams Hose Tester Relationship Specialty Start Date End Date Mauro Watson DO [address] [place] [address] PCP - General Family Medicine 04/13/19 documented as of this encounter
--- OUTSIDE RECORDS SUMMARY | 2024-02-19 09:26 | External Medical Summary | Summary of Care ---
Author Name Unknown Organization [facility] Address [address] [place] [address] Phone [phone] Care Team Providers Care Curriculum Coach Name Role Phone Mauro Watson DO Primary [...] lung, unspecified part of lung (HCC) Procedures OR INJ. PEMETREXED NOS 10MG OR CARBOPLATIN INJECTION OR FOSAPREPITANT INJECTION Lasha Christine MD 200 [facility] [place] [address] Anc Hem/Onc [address] [address] Referral ID Status Reason Start Date Expiration Date V isits Requested Visits Authorized [id number] Authorized 08/22/2023 04/28/2099 999 99 Encounter Details Date Type Department Care Team (Latest Contact Info) Description 11/14/2023 8:15 AM EDT Hem/Onc Treatment Hematology/Oncolog y Treatment, [address] [phone] Diane, Chair 7 Hem On[address] [place] [address] Encounter for antineoplastic chemotherapy*; 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); Malignant neoplasm of left lung, unspecified part of lung (HCC) Allergies Active Allergy Reactions Criticality Noted Date Comments Aspirin Bleeding High 11/26/2011 Significant hemorroidal bleed on aspirin,high doses Duloxetine Hcl Hypertension 01/26/2020 documented as of this encounter (statuses as of 12/04/2023) Medications Medication Sig Dispensed Refills Start Date [...] as of this encounter (statuses as of 12/04/2023) Active Problems Problem Noted Date Diagnosed Date Malignant neoplasm of left lung 08/23/2023 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 01/21/2023 Encounter for antineoplastic chemotherapy 2022 Medical marijuana use 08/26/2021 CKD (chronic kidney disease), stage II 2 Overview: EGFR 72 Lumbar radiculopathy 05/27/2019 Atherosclerosis of [place] co ronary artery of [place] heart with angina pectoris 05/05/2019 History of colon polyps 08/12/2018 ACEI/ARB contraindicated 09/21/2016 Carotid aneurysm, left 09/13/2015 Overview: S/p coil embolization Cerebral aneurysm, nonruptured 09/05/2015 AAA (abdominal aortic aneurysm) 06/20/2015 Overview: S/p repair Bilateral carotid artery disease 06/20/2015 Medical home patient encounter 05/19/2014 Hypertriglyceridemia 05/16/2012 CORON ATHEROSCL [place] CORON VESSEL 07/11/2010 Dyslipidemia, goal LDL below [...] as of this encounter (statuses as of 12/04/2023) Resolved Problems Problem Noted Date Diagnosed Date [...] as of this encounter (statuses as of 12/04/2023) Immunizations Name Administration Dates Next Due COVID-19 [...] Team (Late st Contact Info) Description 12/05/2023 9:10 AM EDT Laboratory Laboratory, [facility] [address] [facility] [place] [id number] [facility] 132 [facility] [place] [address] 12/05/2023 9:45 AM EDT Office Visit Hematology/Oncology [facility] [address] [facility] [place] [address] Lasha Christine MD [facility] [address] 12/05/2023 11:00 AM EDT Hem/Onc Treatment Hematology/Oncology Treatment, [place] [address] [facility] [address] [place] [phone] Diane, Chair 9 [address] [address] 12/06/2023 11:30 AM EDT Telemedicine Interventional Pain Center, [facility] [address] [facility] [place] [address] Leeanna Centeno PA-C 132 [facility] [place] [address] 12/17/2023 10:00 AM EDT Appointment Vascular Lab [facility], [place] [address] [place] [address] 12/17/2023 10:30 AM EDT Office Visit Vascular Surg [facility], [place] [address] [place] [address] Margarito Cabrera MD [address] [place] [address] 12/26/2023 8:30 AM EDT Laboratory Laboratory [facility] [place] [address] [place] [phone] Diane, Lab [facility] [address] [facility] [place] [address] 12/26/2023 9:30 AM EDT Hem/Onc Treatment Hematology/Oncology Treatment, [place] [address] [facility] [phone] Diane, Chair 1 Hem Onc Sc[address]ery [address] [facility] [place] [address] Scheduled Procedures Name Priority Associated Diagnoses Date/Ti [...] this encounter Medical Devices Implanted Type Area Fisheries Enforcement Officer Device Identifier Shelf Expiration Date Model / Serial / Lot Stent Main Body Lpsm-06-38-Zt - [id number] Implanted:Qty: 1 on 06/10/2014 by Ronal Gallegos MD at OR [facility] [place] Aorta [employer] 04/07/2016 TFFB-24-8 2-ZT / / Graft Iliac Leg Spirlz 06r18yg - [id number] Implanted:Qty: 1 on 06/10/2014 by Ronal Gallegos MD at OR [facility] Right: Aorta [employer] 10/09/2015 [id number] / / [id number] Description: Graft Iliac Leg Spirlz [id number] - [id number] Implanted:Qty: 1 on 06/10/2014 by Ronal Gallegos MD at OR [facility] [place] Right: Femoral Artery [employer] 11/07/2016 [id number] / / [id number] Stent Polmer 29mm P3110 - [id number] Implanted:Qty: 1 on 06/10/2014 by Ronal Gallegos MD at OR [facility] [place] [facility] N/A: Aorta JNJ : CORDIS ENDOVASCULAR 07/26/2018 P3110 / / [id number] Codman Orbit Galaxy Coil 2.5mm X 3.5cm Implanted:Qty: 1 on 09/12/2015 by Arik Shin MD at OR [facility] [place] [facility] Left: Head [employer]ENORA [employer] LENORA CODMAN 02/26/2017 [id number] / [id number] / [id number] Description:COMPLEX XTRASOFT detachable coil deployed left internal carotid artery Codman Orbit Galaxy Coil 2.5mm X 2.5cm Implanted:Qty: 1 on 09/12/2015 by Arik Shin MD at OR [facility] Left: Head LENORA [employer] LENORA CODMAN 01/27/2016 [id number] / [id number] / [id number] Description:COMPLEX XTRASOFT detachable coil deployed left internal carotid artery aneurysm Codman [place] 2 Stent 4mm X 30mm Implanted:Qty: 1 on 09/12/2015 by Arik Shin MD at OR [facility] Left: Head LENORA [employer] LENORA DEPUY 03/26/2018 [id number] / [id number] / [id number] Description:Vascular reconst ruction device deployed in left internal carotid artery Codman Orbit Galaxy Coil 6mm X 20cm Implanted:Qty: 1 on 09/12/2015 by Arik Shin MD at OR [facility] Left: Head [employer]EN[employer]A [employer] LENORA CODMAN 09/26/2016 [id number] / [id number] / [id number] Description:COMPLEX FILL det achable coil deployed left internal carotid artery aneurysm Codman Orbit Galaxy Coil 4mm X 10cm Implanted:Qty: 1 on 09/12/2015 by Arik Shin MD at OR [facility] Left: Head LENORA & LENORA [facility] 10/27/2015 [id number] / [id number] / [id number] Description:COMPLEX XTRASOFT detachable coil deployed left internal carotid artery aneurysm Codman Orbit Galaxy Coil 3.5mm X 9cm Implanted:Qty: 1 on 09/12/2015 by Arik Shin MD at OR [facility] Left: Head LENORA [employer] LENORA CODMAN 12/28/2015 [id number] / [id number] / [id number] Description:COMPLEX XTRASOFT detachable coil deployed left internal carotid artery aneurysm Codman Orbit Galaxy Coil 3mm X 6cm Implanted:Qty: 1 on 09/12/2015 by Arik Shin MD at OR [facility] Left: Head LENORA [employer] LENORA CODMAN 04/28/2017 [id number] / [id number] / [id number] Description:COMPLEX XTRASOFT detachable coil deployed left internal carotid artery aneurysm Lens Intraoc 21.0 - [id number] - [id number] Implanted:Qty: 1 on 11/08/2020 by Yuri Bradley MD at OR [facility] Left: Eye BAUSCH [employer] LOMB 06/26/2025 [id number] / [id number] Lens Intraoc 20.5 - [id number] - [id number] Implanted:Qty: 1 on 11/22/2020 by Yuri Bradley MD at OR [facility] Right: Eye BAUSCH & LOMB 07/27/2025 [id number] / [id number] Clip Quick 2.8mm 230cm - [id number] Implanted:Qty: 3 on 03/29/2021 by Luciana Fernandez MD at ENDOSCOPY [facility] [employer] 08/27/2023 HX-202UR. A / / Sureclip 16mm 235cm - [id number] Implanted:Qty: 2 on 05/07/2022 by Luciana Fernandez MD at ENDOSCOPY [facility] Colon MICRO TECH ENDOSCOPY 07/06/2024 [id number] / / Power Port 8fr Sngl Lumen Plas - [id number] Implanted:Qty: 1 on 01/30/2023 by Koko Santiago MD at OR [facility] N/A: Chest CR BARD : PERIPHERAL VASCULAR 07/27/2024 [id number] / / [id number] Power Port 8fr Sngl Lumen Plas - [id number] Implanted:Qty: 1 on 01/30/2023 by Koko Santiago MD at OR [facility] CR BARD : PERIPHERAL VASCULAR [id number] 07/27/2024 [id number] / / [id number] documented as of this encounter Visit Diagnoses [...] and were consensually agreed upon. Care Teams Curriculum Coach Relationship Specialty Start Date End Date Mauro Watson DO [address] [place] [address] PCP - General Family Medicine 04/13/19 documented as of this encounter
--- OUTSIDE RECORDS SUMMARY | 2024-02-19 09:26 | External Medical Summary | Summary of Care ---
Author Name Unknown Organization [facility] Address [address] [place] [address] Phone [phone] Care Team Providers Care Case Manager Specialist Name Role Phone Mauro Watson DO Primary [...] Lasha Christine MD 200 [facility] [place] [address] Anc Hem/Onc [address] [address] Referral ID Status Reason Start Date Expiration Date V isits Requested Visits Authorized [id number] Authorized 08/22/2023 04/28/2099 999 99 Encounter Details Date Type Department Care Team (Latest Contact Info) Description 11/14/2023 8:15 AM EDT Hem/Onc Treatment Hematology/Oncolog y Treatment, [address] [phone] Diane, Chair [address] [place] [address] Encounter for antineoplastic chemotherapy*; Metastatic carcinoma involving [...] EGFR 72 Lumbar radiculopathy 05/27/2019 Atherosclerosis of [place] co ronary artery of [place] heart with angina pectoris 05/05/2019 History of colon polyps 08/12/2018 ACEI/ARB contraindicated 09/21/2016 Carotid aneurysm, left 09/13/2015 Overview: S/p coil embolization Cerebral aneurysm, nonruptured 09/05/2015 AAA (abdominal aortic aneurysm) 06/20/2015 Overview: S/p repair Bilateral carotid artery disease 06/20/2015 Medical home patient encounter 05/19/2014 Hypertriglyceridemia 05/16/2012 CORON ATHEROSCL [place] CORON VESSEL 07/11/2010 Dyslipidemia, goal LDL below [...] Description 12/05/2023 9:10 AM EDT Laboratory Laboratory, [facility] [address] [facility] [place] [phone] [facility] 132 [facility] [place] [address] 12/05/2023 9:45 AM EDT Office Visit Hematology/Oncology [facility] 200 [facility] [place] [address] Lasha Christine MD [facility] [address] 12/05/2023 11:00 AM EDT Hem/Onc Treatment Hematology/Oncology Treatment, [place] [address] [facility] [address] [place] [phone] Diane, Chair 9 Hem Onc [address] [address] 12/06/2023 11:30 AM EDT Telemedicine Interventional Pain Center, [facility] [address] [facility] [place] [address] Leeanna Centeno PA-C 132 [facility] [place] [address] 12/17/2023 10:00 AM EDT Appointment Vascular Lab [facility], [place] [address] [place] [address] 12/17/2023 10:30 AM EDT Office Visit Vascular Surg [facility], [place] [address] [place] [address] Margarito Cabrera MD [address] [place] [address] 12/26/2023 8:30 AM EDT Laboratory Laboratory [facility] [place] [address] [place] [address] Diane, Lab [facility] [address] [facility] [place] [address] 12/26/2023 9:30 AM EDT Hem/Onc Treatment Hematology/Oncology Treatment, [place] [address] [facility] [phone] Diane, Chair 1 Hem Onc [address] [facility] [place] [address] Scheduled Procedures Name Priority Associated Diagnoses Date/Ti [...] this encounter Medical Devices Implanted Type Area Pomology Teacher Device Identifier Shelf Expiration Date Model / Serial / Lot Stent Main Body Kdsr-22-62-Zt - [id number] Implanted:Qty: 1 on 06/10/2014 by Ronal Gallegos MD at OR [facility] [place] Aorta [employer] 04/07/2016 TFFB-24-8 2-ZT / / Graft Iliac Leg Spirlz 73h18gu - [id number] Implanted:Qty: 1 on 06/10/2014 by Ronal Gallegos MD at OR [facility] [place] Right: Aorta [employer] 10/09/2015 [id number] / / [id number] Description: Graft Iliac Leg Spirlz 79s45ie - [id number] Implanted:Qty: 1 on 06/10/2014 by Ronal Gallegos MD at OR [facility] [place] Right: Femoral Artery [employer] 11/07/2016 [id number] / / [id number] Stent Polmer 29mm P3110 - [id number] Implanted:Qty: 1 on 06/10/2014 by Ronal Gallegos MD at OR [facility] [place] N/A: Aorta JNJ : CORDIS ENDOVASCULAR 07/26/2018 P3110 / / [id number] Codman Orbit Galaxy Coil 2.5mm X 3.5cm Implanted:Qty: 1 on 09/12/2015 by Arik Shin MD at OR [facility] [place] Left: Head LENORA [employer] LENORA CODMAN 02/26/2017 [id number] / [id number] / [id number] Description:COMPLEX XTRASOFT detachable coil deployed left internal carotid artery Codman Orbit Galaxy Coil 2.5mm X 2.5cm Implanted:Qty: 1 on 09/12/2015 by Arik Shin MD at OR [facility] [place] Left: Head LENORA [employer] LENORA CODMAN 01/27/2016 [id number] / [id number] / [id number] Description:COMPLEX XTRASOFT detachable coil deployed left internal carotid artery aneurysm Codman [place] 2 Stent 4mm X 30mm Implanted:Qty: 1 on 09/12/2015 by Arik Shin MD at OR [facility] [place] Left: Head LENORA [employer] LENORA DEPUY 03/26/2018 [id number] / [id number] / [id number] Description:Vascular reconst ruction device deployed in left internal carotid artery Codman Orbit Galaxy Coil 6mm X 20cm Implanted:Qty: 1 on 09/12/2015 by Arik Shin MD at OR [facility] [place] Left: Head LEN[employer]A [employer] LENORA CODMAN 09/26/2016 [id number] / [id number] / [id number] Description:COMPLEX FILL det achable coil deployed left internal carotid artery aneurysm Codman Orbit Galaxy Coil 4mm X 10cm Implanted:Qty: 1 on 09/12/2015 by Arik Shin MD at OR [facility] [place] Left: Head LENORA & LENORA [facility] 10/27/2015 [id number] / [id number] / [id number] Description:COMPLEX XTRASOFT detachable coil deployed left internal carotid artery aneurysm Codman Orbit Galaxy Coil 3.5mm X 9cm Implanted:Qty: 1 on 09/12/2015 by Arik Shin MD at OR [facility] [place] Left: Head LENORA [employer] LENORA CODMAN 12/28/2015 [id number] / [id number] / [id number] Description:COMPLEX XTRASOFT detachable coil deployed left internal carotid artery aneurysm Codman Orbit Galaxy Coil 3mm X 6cm Implanted:Qty: 1 on 09/12/2015 by Arik Shin MD at OR [facility] [place] Left: Head LENORA [employer] LENORA CODMAN 04/28/2017 [id number] / [id number] / [id number] Description:COMPLEX XTRASOFT detachable coil deployed left internal carotid artery aneurysm Lens Intraoc 21.0 - [id number] - [id number] Implanted:Qty: 1 on 11/08/2020 by Yuri Bradley MD at OR [facility] Left: Eye BAUSCH & LOMB 06/26/2025 [id number] / [id number] Lens Intraoc 20.5 - [id number] - [id number] Implanted:Qty: 1 on 11/22/2020 by Yuri Bradley MD at OR [facility] Right: Eye BAUSCH & LOMB 07/27/2025 [id number] / [id number] Clip Quick 2.8mm 230cm - [id number] Implanted:Qty: 3 on 03/29/2021 by Luciana Fernandez MD at ENDOSCOPY [facility] [employer] 08/27/2023 HX-202UR. A / / Sureclip 16mm 235cm - [id number] Implanted:Qty: 2 on 05/07/2022 by Luciana Fernandez MD at ENDOSCOPY [facility] Colon MICRO TECH ENDOSCOPY 07/06/2024 [id number] / / Power Port 8fr Sngl Lumen Plas - [id number] Implanted:Qty: 1 on 01/30/2023 by Koko Santiago MD at OR [facility] N/A: Chest CR BARD : PERIPHERAL VASCULAR 07/27/2024 [id number] / / [id number] Power Port 8fr Sngl Lumen Plas - [id number] Implanted:Qty: 1 on 01/30/2023 by Koko Santiago MD at OR [facility] CR BARD : PERIPHERAL VASCULAR [id number] 07/27/2024 [id number] / / [id number] documented as of this encounter Visit Diagnoses [...] and were consensually agreed upon. Care Teams Case Manager Specialist Relationship Specialty Start Date End Date Mauro Watson DO [address] [place] [address] PCP - General Family Medicine 04/13/19 documented as of this encounter
--- OUTSIDE RECORDS SUMMARY | 2024-02-19 09:26 | External Medical Summary ---
Author Name Unknown Address Unknown Organization K[facility] [id number] [place] [address] Laboratory Report Ordering Provider Test Date Status ANN KLEIN 12/05/2023 09:32:35 Final Observation Date Value Abnormality Reference (Units ) Status BUN 12/05/2023 09:32:35 15 6-20 (mg/dL) Final Creatinine 12/05/2023 09:32:35 0.9 0.6-1.2 (mg/dL) Final Glomerular filtration rate/1.73 sq M.predicted [Volume Rate/Area] in Serum, Plasma or Blood by Creatinine-based formula (CKD-EPI) 12/05/2023 09:32:35 86 >=60 (mL/min) Final eGFR is calculated based on the CKD-EPI 2020 equation. Sodium 12/05/2023 09:32:35 138 135-146 (m mol/L) Final Potassium 12/05/2023 09:32:35 4.4 3.5-5.1 (m mol/L) Final Cl 12/05/2023 09:32:35 105 98-107 (mm ol/L) Final CO2 12/05/2023 09:32:35 19 Below low normal 22- 32 (mmol/L) Final Anion gap 12/05/2023 09:32:35 14 7-15 (mmol /L) Final Glucose 12/05/2023 09:32:35 164 Above high normal 70 -120 (mg/dL) Final Albumin 12/05/2023 09:32:35 3.6 Below low normal 3.8 -5.0 (g/dL) Final AST (Aspartate aminotransferase) 12/05/2023 09:32:35 49 10-50 (U/L) Fin al Alk Phos 12/05/2023 09:32:35 161 Above high normal 35 -130 (U/L) Final Bilirubin, Total 12/05/2023 09:32:35 0.4 <=1 .2 (mg/dL) Final Calcium 12/05/2023 09:32:35 9.4 8.4-10.2 ( mg/dL) Final Protein 12/05/2023 09:32:35 7.5 6.0-8.3 (g /dL) Final ALT (Alanine aminotransferase) 12/05/2023 09:32:35 27 10-50 (U/L) Efrain mathur Performing Location [facility] [address] [place] [address]
--- OUTSIDE RECORDS SUMMARY | 2024-02-19 09:26 | External Medical Summary | Summary of Care ---
Author Name Unknown Organization [facility] Address [address] [place] [address] Phone [phone] Care Team Providers Care Truck Loader Overhead Crane Name Role Phone Watson Mauro Jordengordy Primary Care Provider Reason for Referral * Precert (Within 10 days (routine)) - Authorized Specialty Diagnoses / Procedures Referred By Contac t Referred To Contact Radiology Diagnoses Malignant neoplasm of left lung, unspecified part of lung (HCC) 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) 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) Procedures CT CHEST/ABDOMEN/PELVIS WITH IV CONTRAST WITH ORAL CONTRAST Lasha Christine MD [address] [place] [address] Referral ID Status Reason Start Date Expiration Date V isits Requested Visits Authorized [id number] Authorized 12/05/2023 999 999 Reason for Visit * Reason Comments Chemotherapy Chemo/recheck Encounter Details Date Type Department Care Team (Late st Contact Info) Description 12/05/2023 9:45 AM EDT Office Visit Hematology/Oncology State Radha Rosado [address] [place] [phone] Lasha Christine MD [address] [place] [address] Malignant neoplasm of left lung, unspecified part of lung (HCC)*; 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); 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) Allergies Active Allergy Reactions Criticality [...] patient encounter 05/19/2014 Hypertriglyceridemia 05/16/2012 CORON ATHEROSCL [place] CORON VESSEL 07/11/2010 Dyslipidemia, goal LDL below [...] 0 06/10/1979 - 06/10/2014 Smokeless Tobacco: Never Tobacco Cessation:Counseling Given: Not Answered Comments:quit in 2014 Alcohol Use Standard Drinks/Week [...] Sign Reading Time Taken Comments Blood Pressure 121/74 12/05/2023 9:36 AM EDT Pulse 94 12/05/2023 9:36 AM EDT Temperature 35.6 C (96 F) 12/05/2023 9:36 AM EDT Respiratory Rate - - Oxygen Saturation 94% 12/05/2023 9:36 AM EDT Inhaled Oxygen Concentration - - Weight 75.4 kg (166 lb 4.8 oz) 12/05/2023 9:36 A M EDT Height - - Body Mass Index 25.29 06/06/2023 12:13 PM EST documented in this encounter Functional Status Functional [...] Progress Notes * Lasha Christine MD - 12/05/2023 9:45 AM EDT Hematology/Oncology Outpatient Clinic note Geovani Contreras [address] [place] [address] Name: Mp Vaughn Date: 09/12/2023 CHIEF COMPLAINT: Mp Vaughn is a 72 year old male here today for f/u [...] continue single agent Alimta every 3 weekly. Decadron as a part [...] He has come the clinic for the follow-up, currently receiving Alimta and carboplatin chemotherapy, so far received 5 cycles of chemotherapy, previously noted upper abdominal pain has improved, he is not using oxycodone at this time, currently not on pain medication, nausea and vomiting has improved, appetite improved, weight gain by about 10 lb, now stable, current weight around 166 lb, no increasing headache, no leg edema, stable tingling and numbness of lower extremities noted, no bleeding from any sites. He takes nausea and vomiting medication as needed,, also takes folic acid every day. Past Medical History: Diagnosis Date AAA (abdominal [...] ARTERY performed by Arik Shin MD at [facility] CATHETER OCCLUSION/EMBOLIZATION,MANAGER OF PHARMACY N/A 09/12/2015 TRANSCATHETER PERMANENT ARTERIAL OCCLUSION CENTRAL NERVOUS SYSTEM performed by Arik Shin MD at [facility] COLONOSCOPY W/ LESION REMOVAL, SNARE 09/09/2006 adenomatous polyp--repeat 5 years COLONOSCOPY, DIAGNOSTIC (RECTUM) 08/15/2012 adenomatous polyp, diverticulosis, repeat 5 yrs/COLONOSCOPY FLEXIBLE PROXIMAL DIAGNOSTIC performed by Luciana Fernandez MD at ENDOSCOPY [facility] COLONOSCOPY, DIAGNOSTIC (RECTUM) 11/23/2015 adenomatous polyps, diverticulosis, andiodysplastic lesions, repeat 5 yrs/[facility] COLONOSCOPY, DIAGNOSTIC (RECTUM) 11/28/2015 colonic ulcer, diverticulosis/inpt [facility] COLONOSCOPY, DIAGNOSTIC (RECTUM) 03/29/2021 adenomatous polyps, diverticulosis, repeat 1 yr / COLONOSCOPY FLEXIBLE PROXIMAL DIAGNOSTIC performed by Luciana Fernandez MD at ENDOSCOPY [facility] COLONOSCOPY, DIAGNOSTIC (RECTUM) 05/07/2022 benign adenomatous polyps, repeat 6 mo / COLONOSCOPY FLEXIBLE PROXIMAL DIAGNOSTIC performed by Luciana Fernandez MD at ENDOSCOPY [facility] COLONOSCOPY, DIAGNOSTIC (RECTUM) 11/02/2022 resolving ischemic colitis, repeat 9 mo / COLONOSCOPY FLEXIBLE PROXIMAL DIAGNOSTIC performed by Luciana Fernandez MD at ENDOSCOPY [facility] EGD, FLEXIBLE, DIAGNOSTIC 11/23/2015 reflux esophagitis, Schatzki ring, sm /[facility] EGD, FLEXIBLE, DIAGNOSTIC 01/02/2023 hiatal hernia/gastritis/biopsies show mild gastritits of stomach/ESOPHAGOGASTRODUODENOSCOPY (EGD), FLEXIBLE, TRANSORAL, DIAGNOSTIC performed by Jory Sauceda DO at ENDOSCOPY [facility] EGD, W/ENDOSCOPIC US 01/02/2023 multiple metastatic lesions liver/ESOPHAGOGASTRODUODENOSCOPY (EGD), FLEXIBLE, TRANSORAL, ENDOSCOPICULTRASOUND performed by Jory Sauceda DO at ENDOSCOPY [facility] HEMORRHOIDECTOMY, INTERNAL, 2 + COLUMNS 06/28/2000 [...] performed by Wiliam Tam DO at OR [facility] INJECT DX/THER SUBSTANCE INTERLAMINAR LUMBAR/SACRAL W IMAGE GUIDE 07/26/2022 INJECTION SPINE LUMBAR OR SACRAL performed by Wiliam Tam DO at OR [facility] INJECT DX/THER SUBSTANCE INTERLAMINAR LUMBAR/SACRAL W IMAGE GUIDE 07/31/2023 INJECTION SPINE LUMBAR OR SACRAL performed by Wiliam Tam DO at OR [facility] INSER TUNN ACC DEV;5 YRS/OLDER N/A 01/30/2023 INSERT TUNNELED CENTRAL VENOUS ACCESS WITH SUBQ PORT performed by Koko Santiago MD at OR [facility] INSERT ARTERY CATHETER THRU SKIN Right [...] performed by Deep León DO at OR [facility] OPEN FEMORAL ARTERY EXPOSURE FOR ENDOVASCULAR PROSTHESIS, UNILAT Bilateral 06/10/2014 bilateral femoral artery exposure by Dr. Gallegos. OTHER (INFORMATION) ACT [address] CATHETER IN ARTERIES N/A 08/31/2015 CATHETER PLACEMENT, BRACHIOCEPHALIC, THIRD ORDER BRANCH performed by Arik Shin MD at [facility] PL[facility] CATHETER IN ARTERIES N/A 09/12/2015 CATHETER PLACEMENT, BRACHIOCEPHALIC, THIRD ORDER BRANCH performed by Arik Shin MD at [facility] REMOVE CATARACT, INSERT LENS PROSTH Left 11/08/2020 left EXTRACAPSULAR CATARACT REMOVAL WITH INTRAOCULAR LENS performed by Yuri Bradley MD at OR [facility] REMOVE CATARACT, INSERT LENS PROSTH Right 11/22/2020 right EXTRACAPSULAR CATARACT REMOVAL WITH INTRAOCULAR LENS performed by Yuri Bradley MD at OR [facility] VERTEBRAL ARTERY CATHETER PLACEMENT Bilateral 08/20/2016 CATHETER PLACEMENT VERTEBRAL ARTERY, performed by Arik Shin MD at [facility] Social History Socioeconomic History Marital status: Spouse name: Not on file Number of children: Not on file Years of education: Not on file Highest education level: Not on file Occupational History Not on file Tobacco Use Smoking status: Former Current packs/day: 0.00 Average packs/day: 1.5 packs/day for 35.0 years (52.5 ttl pk-yrs) Types: Cigarettes Start date: 06/10/1979 Quit date: 06/10/2014 Years since quittin.4 Smokeless tobacco: Never Tobacco comments: quit in [...] mouth every 8 hours if needed for [id number] Tablet 2 Lidocaine-Prilocaine 2.5-2.5 % External Cream [...] See HPI - otherwise negative OBJECTIVE: BP 121/74 (BP Site: Left Arm, BP Position: Sitting, BP Cuff Size: Regular) | Pulse 94 | Temp 35.6 C (96 F) (Tympanic) | Wt 75.4 kg (166 lb 4.8 oz) | SpO2 94% | BMI 25.29 kg/m | BSA 1.9 m PHYSICAL EXAM: [...] Grossly intact LABS: Blood workup done on 12/05/2023: -WBC 5900, Hemoglobin and hematocrit -8.8/28, MCV 106, [place] [address]. BUN/Creat: 15/0.9, AST 49, ALT 27, alkaline phosphatase 161, bilirubin level 0.4. IMAGING: MRA of the brain (11/02/2023: Stable [...] deficiency B12 or folic acid deficiency noted Overall anemia appears to be related to ongoing chemotherapy mainly carboplatin Would like to discontinue carboplatin at this time, will continue Alimta single agent every 3 weekly He will continue Vitamin B12 and folic acid supplementation as we planned. Ordered CT scan of chest, abdomen pelvis in mid-January 2024 (3 months from the last time). Will see him in about [address] Lasha Christine Hem/Onc (This note was completed using the dictation program Fluency Direct. As such, there may be misspellings word substitutions, or other variations that should not change the essence of the clinical content of this encounter note. If there is need for further clarification, please direct questions to the provider listed above.) documented in this encounter Nursing Notes * Rubina Wong MED ASSIST - 12/05/2023 9:38 AM EDT Patient identifed by name and birthdate Do you have any concerns about pain management for today's visit? No Living Will or Advance Directive for Health Care as noted on the problem list. [facility] is a way you can talk to your provider on line through e-mail. Would you like to sign up? I can activate it for you? ALREADY ACTIVE Filed Vitals: 12/05/23 0936 BP: 121/74 Pulse: 94 Temp: 35.6 C (96 F) TempSrc: Tympanic SpO2: 94% Weight: 75.4 kg (166 lb 4.8 oz) Patient was instructed to not get up [...] 11:30 AM EDT Telemedicine [facility] [address] [facility] [place] [address] Leeanna Centeno PA-C [address] [place] [address] 12/17/2023 10:00 AM EDT Appointment Vascular Lab [address] [address] 12/17/2023 10:30 AM EDT Office Visit Vascular Surg [address] [address] Margarito Cabrera MD [address] [place] [address] 12/26/2023 8:30 AM EDT Laboratory Laboratory [facility] [place] [address] [phone] Diane, Lab Scenery [address] [address] 12/26/2023 9:30 AM EDT Hem/Onc Treatment Hematology/Oncology Treatment, [place] [address] [place] [phone] Diane, Chair 1 Hem Onc Scenery [address] [address] Scheduled Orders Name Type Priority Associated Diagnoses Orde r Schedule CT CHEST/ABDOMEN/PELVI S WITH IV CONTRAST WITH ORAL CONTRAST Medical Imaging Routine Malignant neoplasm of left lung, unspecified part of lung (HCC) 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) 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) Expected: 12/05/2023, Expires: 12/04/2024 Scheduled Procedures Name Priority Associated Diagnoses Date/Ti [...] this encounter Medical Devices Implanted Type Area Watch Dial Maker Device Identifier Shelf Expiration Date Model / Serial / Lot Stent Main Body Ruud-19-31-Zt - [id number] Implanted:Qty: 1 on 06/10/2014 by Ronal Gallegos MD at [facility] Aorta [employer] 04/07/2016 [id number]-[id number] / / Graft Iliac Leg Spirlz [id number] - [id number] Implanted:Qty: 1 on 06/10/2014 by Ronal Gallegos MD at [facility] Right: Aorta [employer] 10/09/2015 [id number] / / [id number] Description: Graft Iliac Leg Spirlz [id number] - [id number] Implanted:Qty: 1 on 06/10/2014 by Ronal Gallegos MD at [facility] Right: Femoral Artery [employer] 11/07/2016 [id number] / / [id number] Stent Polmer 29mm P3110 - [id number] Implanted:Qty: 1 on 06/10/2014 by Ronal Gallegos MD at [facility] N/A: Aorta JNJ : CORDIS ENDOVASCULAR 07/26/2018 [id number] / / [id number] Codman Orbit Galaxy Coil 2.5mm X 3.5cm Implanted:Qty: 1 on 09/12/2015 by Arik Shin MD at [facility] Left: Head [employer]A [employer] CODMAN 02/26/2017 [id number] / [id number] / [id number] Description:COMPLEX XTRASOFT detachable coil deployed left internal carotid artery Codman Orbit Galaxy Coil 2.5mm X 2.5cm Implanted:Qty: 1 on 09/12/2015 by Arik Shin MD at [facility] Left: Head [employer] CODMAN 01/27/2016 [id number] / [id number] / [id number] Description:COMPLEX XTRASOFT detachable coil deployed left internal carotid artery aneurysm Codman [place] 2 Stent 4mm X 30mm Implanted:Qty: 1 on 09/12/2015 by Arik Shin MD at [facility] Left: Head [employer]EN[employer]A DEPUY 03/26/2018 [id number] / [id number] / [id number] Description:Vascular reconst ruction device deployed in left internal carotid artery Codman Orbit Galaxy Coil 6mm X 20cm Implanted:Qty: 1 on 09/12/2015 by Arik Shin MD at [facility] Left: Head LENORA & LENORA [facility] 09/26/2016 [id number] / [id number] / [id number] Description:COMPLEX FILL det achable coil deployed left internal carotid artery aneurysm Codman Orbit Galaxy Coil 4mm X 10cm Implanted:Qty: 1 on 09/12/2015 by Arik Shin MD at [facility] Left: Head [employer]MAN 10/27/2015 [id number] / [id number] / [id number] Description:COMPLEX XTRASOFT detachable coil deployed left internal carotid artery aneurysm Codman Orbit Galaxy Coil 3.5mm X 9cm Implanted:Qty: 1 on 09/12/2015 by Arik Shin MD at [facility] Left: Head [employer] 12/28/2015 [id number] / [id number] / [id number] Description:COMPLEX XTRASOFT detachable coil deployed left internal carotid artery aneurysm Codman Orbit Galaxy Coil 3mm X 6cm Implanted:Qty: 1 on 09/12/2015 by Arik Shin MD at [facility] Left: Head [employer] 04/28/2017 [id number] / [id number] / [id number] Description:COMPLEX XTRASOFT detachable coil deployed left internal carotid artery aneurysm Lens Intraoc 21.0 - [id number] - [id number] Implanted:Qty: 1 on 11/08/2020 by Yuri Bradley MD at OR [facility] Left: Eye [employer]OMB 06/26/2025 [id number] / [id number] / [id number] Lens Intraoc 20.5 - [id number] - [id number] Implanted:Qty: 1 on 11/22/2020 by Yuri Bradley MD at OR [facility] Right: Eye [employer] LOMB 07/27/2025 [id number] / [id number] / [id number] Clip Quick 2.8mm 230cm - [id number] Implanted:Qty: 3 on 03/29/2021 by Luciana Fernandez MD at ENDOSCOPY [facility] [employer] 08/27/2023 [id number]. [id number] / / Sureclip 16mm 235cm - [id number] Implanted:Qty: 2 on 05/07/2022 by Luciana Fernandez MD at ENDOSCOPY [facility] Colon MICRO TECH ENDOSCOPY 07/06/2024 [id number] / / Power Port 8fr Sngl Lumen Plas - [id number] Implanted:Qty: 1 on 01/30/2023 by Koko Santiago MD at OR [facility] N/A: Chest CR BARD : PERIPHERAL VASCULAR 07/27/2024 [id number] / / [id number] Power Port 8fr Sngl Lumen Plas - [id number] Implanted:Qty: 1 on 01/30/2023 by Koko Santiago MD at OR [facility] CR BARD : PERIPHERAL VASCULAR [id number] 07/27/2024 [id number] / / [id number] documented as of this encounter Visit Diagnoses Diagnosis Malignant neoplasm of left lung, unspecified part of lung (HCC)- Primary 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) 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) Secondary malignant neoplasm of liver documented in this encounter Advance Directives * Full Code (Latest Code Status on File) Date Activated Date Inactivated Comments 09/12/2015 11:01 AM 09/13/2015 2:50 PM This order reflects the patients wishes and were consensually agreed upon. * Full Code Date Activated Date Inactivated Comments 06/10/2014 10:48 AM 06/11/2014 8:37 PM This order reflects the patients wishes and were consensually agreed upon. Care Teams Truck Loader Overhead Crane Relationship Specialty Start Date End Date Mauro Watson DO [address] [place] [address] PCP - General Family Medicine 04/13/19 documented as of this encounter"
--- OUTSIDE RECORDS SUMMARY | 2024-02-19 09:26 | External Medical Summary ---
Author Name Unknown Address Unknown Organization K09:[facility] [place] [address] Laboratory Report Ordering Provider Test Date Status ANN KLEIN 12/05/2023 09:32:35 Final Observation Date Value Abnormality Reference (Units ) Status WBC, Total 12/05/2023 09:32:35 5.96 4.00-10.8 0 (K/uL) Final RBC 12/05/2023 09:32:35 2.64 4.50-5.25 (M/uL) Final Hemoglobin 12/05/2023 09:32:35 8.8 Below low normal 14 .0-16.8 (g/dL) Final HCT 12/05/2023 09:32:35 28.0 Below low normal 40. 0-48.4 (%) Final MCV 12/05/2023 09:32:35 106.1 82.0-99.5 (fL) Final MCH 12/05/2023 09:32:35 33.3 27.0-34.0 (pg) Final MCHC 12/05/2023 09:32:35 31.4 32.0-36.0 (g/dL) Final RDW 12/05/2023 09:32:35 19.2 11.5-15.5 (%) Final Platelets 12/05/2023 09:32:35 98 Below low normal 140 -400 (K/uL) Final MPV 12/05/2023 09:32:35 11.5 6.6-11.1 ( fL) Final Performing Location [facility] [place] [address]
--- OUTSIDE RECORDS SUMMARY | 2024-02-19 09:27 | External Medical Summary | Summary of Care ---
Author Name Unknown Organization [facility] Address [address] [place] [address] Phone [phone] Care Team Providers Care Scout Sniper Name Role Phone Watson Mauro Leonardogordy Primary Care Provider Reason for Visit * Reason Onset Date Comments Med Request 08/19/2023 Christine Encounter Details Date Type Department Care Team (Late st Contact Info) Description 08/19/2023 Telephone Hematology/Oncology [facility] [address] [place] [address] Services, Scheduling [address] [place] [address] Med Request (Christine) Allergies Active Allergy Reactions Criticality Noted Date Comments Aspirin Bleeding High 11/26/2011 Significant hemorroidal bleed on aspirin,high doses Duloxetine Hcl Hypertension 01/26/2020 documented as of this encounter (statuses as of 11/18/2023) Medications Medication Sig Dispensed Refills Start Date [...] once daily 90 Tablet 2 03/31/2023 Active Metoprolol Tartrate 25 MG Oral Tablet (Lopressor)Indicat ions:HTN, goal below 140/90 TAKE 1/2 TAB BY MOUTH TWICE DAILY 90 Tablet 3 03/31/2023 Active Ondansetron HCl 8 MG Oral [...] for Nausea. 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 01/21/2023 Encounter for antineoplastic chemotherapy 2022 Medical marijuana use 08/26/2021 CKD (chronic kidney disease), stage II 2 Overview: EGFR 72 Lumbar radiculopathy 05/27/2019 Atherosclerosis of [place] co ronary artery of [place] heart with angina pectoris 05/05/2019 History of colon polyps 08/12/2018 ACEI/ARB contraindicated 09/21/2016 Carotid aneurysm, left 09/13/2015 Overview: S/p coil embolization Cerebral aneurysm, nonruptured 09/05/2015 AAA (abdominal aortic aneurysm) 06/20/2015 Overview: S/p repair Bilateral carotid artery disease 06/20/2015 Medical home patient encounter 05/19/2014 Hypertriglyceridemia 05/16/2012 CORON ATHEROSCL KOI CORON VESSEL 07/11/2010 Dyslipidemia, goal LDL below [...] as of this encounter (statuses as of 11/18/2023) Resolved Problems Problem Noted Date Diagnosed Date [...] as of this encounter (statuses as of 11/18/2023) Immunizations Name Administration Dates Next Due COVID-19 [...] Miscellaneous Notes * Telephone Encounter - Enriqueta Bravo OSA - 08/19/2023 11:00 AM EDT Emmett pt. Pt needs a script for Oxycodone 5mg to be sent to the [facility] on [facility] in [place]. Please call pt back if any quetions at [phone] Thank you! documented in this encounter Plan of Treatment Upcoming Encounters Date Type Department Care Team (Late st Contact Info) Description 11/28/2023 11:45 AM EDT Imaging [facility] [address] [place] [address] 12/05/2023 9:10 AM EDT Laboratory Laboratory, [facility] [address] [facility] [place] [phone] [facility] [address] [place] [address] 12/05/2023 9:30 AM EDT Office Visit Interventional Pain Center, [facility] [address] [place] [address] Leeanna Centeno PA-C [address] [place] [address] 12/05/2023 9:45 AM EDT Office Visit Hematology/Oncology [facility] 200 [facility] [place] [phone] Lasha Christine MD 200 [facility] [place] [address] 12/05/2023 11:00 AM EDT Hem/Onc Treatment Hematology/Oncology Treatment, [place] [facility] [phone] Diane, Chair 9 Hem Onc [address] 200 [facility] [address] 12/17/2023 10:00 AM EDT Appointment Vascular Lab [place] [address] [place] [address] 12/17/2023 10:30 AM EDT Office Visit Vascular Surg [place] [address] [place] [address] Margarito Cabrera MD [facility] [place] [address] 12/26/2023 8:30 AM EDT Laboratory Laboratory [facility] [place] [address] [place] [phone] Diane, Lab [facility] 200 [facility] [place] [address] 12/26/2023 9:30 AM EDT [facility] [phone] Diane, Chair 1 Hem Onc [facility] 200 [facility] [address] Scheduled Procedures Name Priority Associated Diagnoses Date/Ti me COLONOSCOPY FLEXIBLE PROXIMAL DIAGNOSTIC Recall History of colon polyps Health Maintenance Due Date Last Done Comments Cologuard 1994 Sigmoidoscopy 1994 Fecal Occult Blood Test 02/03/2001 02/04/2000, 02/02 COVID-19 Vaccine ( season) 2022 02/06/2022, 05/11/2021, [...] this encounter Medical Devices Implanted Type Area Jewelry Model Maker Device Identifier Shelf Expiration Date Model / Serial / Lot Stent Main Body Tcvc-58-58-Zt - [id number] Implanted:Qty: 1 on 06/10/2014 by Ronal Gallegos MD at [place] [facility] Aorta [employer] 04/07/2016 TFFB-24-8 2-ZT / / Graft Iliac Leg Spirlz [id number] - [id number] Implanted:Qty: 1 on 06/10/2014 by Ronal Gallegos MD at [place] [facility] Right: Aorta [employer] 10/09/2015 [id number] / / [id number] Description: Graft Iliac Leg Spirlz 45s57yr - [id number] Implanted:Qty: 1 on 06/10/2014 by Ronal Gallegos MD at [place] [facility] Right: Femoral Artery [employer] 11/07/2016 [id number] / / [id number] Stent Polmer 29mm P3110 - [id number] Implanted:Qty: 1 on 06/10/2014 by Ronal Gallegos MD at [place] [facility] N/A: Aorta JNJ : CORDIS ENDOVASCULAR 07/26/2018 P3110 / / [id number] Codman Orbit Galaxy Coil 2.5mm X 3.5cm Implanted:Qty: 1 on 09/12/2015 by Arik Shin MD at [place] [facility] Left: Head [facility] [employer] [facility] 02/26/2017 [id number] / [id number] / [id number] Description:COMPLEX XTRASOFT detachable coil deployed left internal carotid artery Codman Orbit Galaxy Coil 2.5mm X 2.5cm Implanted:Qty: 1 on 09/12/2015 by Arik Shin MD at [place] [facility] Left: Head [facility] 01/27/2016 [id number] / [id number] / [id number] Description:COMPLEX XTRASOFT detachable coil deployed left internal carotid artery aneurysm Codman [place] 2 Stent 4mm X 30mm Implanted:Qty: 1 on 09/12/2015 by Arik Shin MD at [place] [facility] Left: Head LENORA [employer] LENORA DEP 03/26/2018 [id number] / [id number] / [id number] Description:Vascular reconst ruction device deployed in left internal carotid artery Codman Orbit Galaxy Coil 6mm X 20cm Implanted:Qty: 1 on 09/12/2015 by Arik Shin MD at [place] [facility] Left: Head [facility] 09/26/2016 [id number] / [id number] / [id number] Description:COMPLEX FILL det achable coil deployed left internal carotid artery aneurysm Codman Orbit Galaxy Coil 4mm X 10cm Implanted:Qty: 1 on 09/12/2015 by Arik Shin MD at [place] [facility] Left: Head [facility] 10/27/2015 [id number] / [id number] / [id number] Description:COMPLEX XTRASOFT detachable coil deployed left internal carotid artery aneurysm Codman Orbit Galaxy Coil 3.5mm X 9cm Implanted:Qty: 1 on 09/12/2015 by Arik Shin MD at [place] [facility] Left: Head LENORA [employer] LENORA CODMAN 12/28/2015 [id number] / [id number] / [id number] Description:COMPLEX XTRASOFT detachable coil deployed left internal carotid artery aneurysm Codman Orbit Galaxy Coil 3mm X 6cm Implanted:Qty: 1 on 09/12/2015 by Arik Shin MD at [place] [facility] Left: Head LENORA [employer] LENORA CODMAN 04/28/2017 [id number] / [id number] / [id number] Description:COMPLEX XTRASOFT detachable coil deployed left internal carotid artery aneurysm Lens Intraoc 21.0 - [id number] - [id number] Implanted:Qty: 1 on 11/08/2020 by Yuri Bradley MD at OR [facility] Left: Eye BAUSCH & LOMB 06/26/2025 [id number] / [id number] / [id number] Lens Intraoc 20.5 - [id number] - [id number] Implanted:Qty: 1 on 11/22/2020 by Yuri Bradley MD at OR [facility] Right: Eye BAUSCH & LOMB 07/27/2025 [id number] / [id number] / [id number] Clip Quick 2.8mm 230cm - [id number] Implanted:Qty: 3 on 03/29/2021 by Luciana Fernandez MD at ENDOSCOPY [facility] Pop[employer]r [employer] 08/27/2023 HX-202UR. A / / Sureclip 16mm 235cm - [id number] Implanted:Qty: 2 on 05/07/2022 by Luciana Fernandez MD at ENDOSCOPY [facility] Colon MICRO TECH ENDOSCOPY 07/06/2024 [id number] / / Power Port 8fr Sngl Lumen Plas - [id number] Implanted:Qty: 1 on 01/30/2023 by Koko Santiago MD at OR [facility] N/A: Chest CR BARD : PERIPHERAL VASCULAR 07/27/2024 [id number] / / [id number] Power Port 8fr Sngl Lumen Plas - [id number] Implanted:Qty: 1 on 01/30/2023 by Koko Santiago MD at OR [facility] BARD : PERIPHERAL VASCULAR [id number] 07/27/2024 [id number] / / [id number] documented as of this encounter Advance Directives [...] and were consensually agreed upon. Care Teams Scout Sniper Relationship Specialty Start Date End Date Mauro Watson DO [address] [facility] [place] [address] PCP - General Family Medicine 04/13/19 documented as of this encounter
--- OUTSIDE RECORDS SUMMARY | 2024-02-19 09:27 | External Medical Summary | Summary of Care ---
Author Name Unknown Organization [facility] Address [address] [place] [address] Phone [phone] Care Team Providers Care Artist Scientific Name Role Phone Zhane Watsonjethro Leonardogordy Primary Care Provider Reason for Visit * Reason Onset Date Comments Appointment 11/26/2023 MRI Encounter Details Date Type Department Care Team (Late st Contact Info) Description 11/26/2023 Telephone Radiology [address] [place] [address] Rosa England, RT (R) Appointment (/MRI) Allergies Active Allergy Reactions Criticality Noted Date Comments Aspirin Bleeding High 11/26/2011 Significant hemorroidal bleed on aspirin,high doses Duloxetine Hcl Hypertension 01/26/2020 documented as of this encounter (statuses as of 11/26/2023) Medications Medication Sig Dispensed Refills Start Date [...] as of this encounter (statuses as of 11/26/2023) Active Problems Problem Noted Date Diagnosed Date Malignant neoplasm of left lung 08/23/2023 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 01/21/2023 Encounter for antineoplastic chemotherapy 2022 Medical marijuana use 08/26/2021 CKD (chronic kidney disease), stage II 2 Overview: EGFR 72 Lumbar radiculopathy 05/27/2019 Atherosclerosis of [place] co ronary artery of [place] heart with angina pectoris 05/05/2019 History of colon polyps 08/12/2018 ACEI/ARB contraindicated 09/21/2016 Carotid aneurysm, left 09/13/2015 Overview: S/p coil embolization Cerebral aneurysm, nonruptured 09/05/2015 AAA (abdominal aortic aneurysm) 06/20/2015 Overview: S/p repair Bilateral carotid artery disease 06/20/2015 Medical home patient encounter 05/19/2014 Hypertriglyceridemia 05/16/2012 CORON ATHEROSCL TEJON CORON VESSEL 07/11/2010 Dyslipidemia, goal LDL below [...] as of this encounter (statuses as of 11/26/2023) Resolved Problems Problem Noted Date Diagnosed Date [...] as of this encounter (statuses as of 11/26/2023) Immunizations Name Administration Dates Next Due COVID-19 [...] encounter Miscellaneous Notes * Telephone Encounter - Rosa England RT (R) - 11/26/2023 3:31 PM EDT Nothing has changed since last scan, patient does have brain aneurysm coils and leg stents, will put MR info with schedule. documented in this encounter Plan of Treatment Upcoming Encounters Date Type Department Care Team (Late st Contact Info) Description 11/28/2023 11:45 AM EDT Imaging Radiology [address], [address] [place] [address] 12/05/2023 9:10 AM EDT Laboratory Laboratory, [facility] 132 [facility] [place] [phone] [facility] [place] [address] 12/05/2023 9:45 AM EDT Office Visit Hematology/Oncology [facility] Diane [place] [address] [place] [phone] Lasha Christine MD [address] [place] [address] 12/05/2023 11:00 AM EDT Hem/Onc Treatment Hematology/Oncology Treatment, [place] [address] [place] [phone] Diane, Chair 9 Hem Onc [address] [place] [address] 12/06/2023 11:30 AM EDT Telemedicine Interventional Pain Center, [facility] 132 [facility] [place] [address] Leeanna Centeno [facility]-C [facility] [address] 12/17/2023 10:00 AM EDT Appointment Vascular Lab [address] [address] 12/17/2023 10:30 AM EDT Office Visit Vascular Surg [place] [address] [place] [address] Margarito Cabrera MD [facility] [address] [place], [place] [phone] 12/26/2023 8:30 AM EDT Laboratory Laboratory [facility] Diane [place] [address] [place] [phone] Zeyad Contreras [address] 200 [facility] [place] [address] 12/26/2023 9:30 AM EDT Hem/Onc Treatment Hematology/Oncology Treatment, [place] [address] [facility] [address] [place] [phone] Diane, Chair 1 Hem Onc [address] 200 [facility] [place] [address] Scheduled Procedures Name Priority Associated Diagnoses Date/Ti [...] Td or Tdap) 01/12/2030 01/13/2020, 06/08/2019, 09/30/2008 Hepatitis C Screening Completed 04/09/2017 Pneumococcal Vaccine: 65+ Years Completed 02/17/2018, 02/04/2017, [...] this encounter Medical Devices Implanted Type Area Steam Blocker Device Identifier Shelf Expiration Date Model / Serial / Lot Stent Main Body Zdco-98-37-Zt - [id number] Implanted:Qty: 1 on 06/10/2014 by Ronal Gallegos MD [place] [facility] Aorta [employer] 04/07/2016 TFFB-24-8 2-ZT / / Graft Iliac Leg Spirlz 67h82ci - [id number] Implanted:Qty: 1 on 06/10/2014 by Ronal Gallegos MD at [place] [facility] Right: Aorta [employer] 10/09/2015 [id number] / / [id number] Description: Graft Iliac Leg Spirlz 28j88xn - [id number] Implanted:Qty: 1 on 06/10/2014 by Ronal Gallegos MD at [place] [facility] Right: Femoral Artery [employer] 11/07/2016 [id number] / / [id number] Stent Polmer 29mm P3110 - [id number] Implanted:Qty: 1 on 06/10/2014 by Ronal Gallegos MD at [place] [facility] N/A: Aorta JNJ : CORDIS ENDOVASCULAR 07/26/2018 P3110 / / [id number] Codman Orbit Galaxy Coil 2.5mm X 3.5cm Implanted:Qty: 1 on 09/12/2015 by Arik Shin MD at [place] [facility] Left: Head LENORA [employer] LENORA CODMAN 02/26/2017 [id number] / [id number] / [id number] Description:COMPLEX XTRASOFT detachable coil deployed left internal carotid artery Codman Orbit Galaxy Coil 2.5mm X 2.5cm Implanted:Qty: 1 on 09/12/2015 by Arik Shin MD at [place] [facility] Left: Head LENORA [employer] LEN[employer]A CODMAN 01/27/2016 [id number] / [id number] / [id number] Description:COMPLEX XTRASOFT detachable coil deployed left internal carotid artery aneurysm Codman [place] 2 Stent 4mm X 30mm Implanted:Qty: 1 on 09/12/2015 by Arik Shin MD at [place] [facility] Left: Head LENORA [employer] LENORA DEPUY 03/26/2018 [id number] / [id number] / [id number] Description:Vascular reconst ruction device deployed in left internal carotid artery Codman Orbit Galaxy Coil 6mm X 20cm Implanted:Qty: 1 on 09/12/2015 by Arik Shin MD at [place] [facility] Left: Head LENORA [employer] LEN[employer]A CODMAN 09/26/2016 [id number] / [id number] / [id number] Description:COMPLEX FILL det achable coil deployed left internal carotid artery aneurysm Codman Orbit Galaxy Coil 4mm X 10cm Implanted:Qty: 1 on 09/12/2015 by Arik Shin MD at [place] [facility] Left: Head LENORA [employer] LEN[employer]A CODMAN 10/27/2015 [id number] / [id number] / [id number] Description:COMPLEX XTRASOFT detachable coil deployed left internal carotid artery aneurysm Codman Orbit Galaxy Coil 3.5mm X 9cm Implanted:Qty: 1 on 09/12/2015 by Arik Shin MD at [place] [facility] Left: Head LENORA [employer] LEN[employer]A CODMAN 12/28/2015 [id number] / [id number] / [id number] Description:COMPLEX XTRASOFT detachable coil deployed left internal carotid artery aneurysm Codman Orbit Galaxy Coil 3mm X 6cm Implanted:Qty: 1 on 09/12/2015 by Arik Shin MD at [place] [facility] Left: Head LENORA [employer] LEN[employer]A CODMAN 04/28/2017 [id number] / [id number] / [id number] Description:COMPLEX XTRASOFT detachable coil deployed left internal carotid artery aneurysm Lens Intraoc 21.0 - [id number] - [id number] Implanted:Qty: 1 on 11/08/2020 by Yuri Bradley MD at [facility] Left: Eye BAUSCH & LOMB 06/26/2025 [id number] / [id number] / [id number] Lens Intraoc 20.5 - [id number] - [id number] Implanted:Qty: 1 on 11/22/2020 by Yuri Bradley MD at OR [facility] Right: Eye BAUSCH & LOMB 07/27/2025 [id number] / [id number] / [id number] Clip Quick 2.8mm 230cm - [id number] Implanted:Qty: 3 on 03/29/2021 by Luciana Fernandez MD at ENDOSCOPY [facility] [employer] 08/27/2023 HX-202UR. A / / Sureclip 16mm 235cm - [id number] Implanted:Qty: 2 on 05/07/2022 by Luciana Fernandez MD at ENDOSCOPY [facility] Colon MICRO TECH ENDOSCOPY 07/06/2024 [id number] / / Power Port 8fr Sngl Lumen Plas - [id number] Implanted:Qty: 1 on 01/30/2023 by Koko Santiago MD at OR [facility] N/A: Chest CR BARD : PERIPHERAL VASCULAR 07/27/2024 [id number] / / [id number] Power Port 8fr Sngl Lumen Plas - [id number] Implanted:Qty: 1 on 01/30/2023 by Koko Santiago MD at OR [facility] CR BARD : PERIPHERAL VASCULAR [id number] 07/27/2024 [id number] / / [id number] documented as of this encounter Advance Directives [...] and were consensually agreed upon. Care Teams Artist Scientific Relationship Specialty Start Date End Date Mauro Watson DO [address] [place] [address] PCP - General Family Medicine 04/13/19 documented as of this encounter
--- OUTSIDE RECORDS SUMMARY | 2024-02-19 09:27 | External Medical Summary | Summary of Care ---
Author Name Unknown Organization [facility] Address [address] [place] [address] Phone [phone] Care Team Providers Care Crane Service Technician Name Role Phone Mauro Watson DO Primary [...] [place] FOSAPREPITANT INJECTION Lasha Christine MD 200 [facility] [place] [address] Anc Hem/Onc [address] [address] Referral ID Status Reason Start Date Expiration Date V isits Requested Visits Authorized [id number] Authorized 08/22/2023 04/28/2099 999 99 Encounter Details Date Type Department Care Team (Latest Contact Info) Description 11/14/2023 8:15 AM EDT Hem/Onc Treatment Hematology/Oncolog y Treatment, [address] [address] Diane, Chair 7 Hem Onc [address] [place] [id number] Encounter for antineoplastic chemotherapy*; Metastatic carcinoma involving [...] EGFR 72 Lumbar radiculopathy 05/27/2019 Atherosclerosis of [place] co ronary artery of [place] heart with angina pectoris 05/05/2019 History of colon polyps 08/12/2018 ACEI/ARB contraindicated 09/21/2016 Carotid aneurysm, left 09/13/2015 Overview: S/p coil embolization Cerebral aneurysm, nonruptured 09/05/2015 AAA (abdominal aortic aneurysm) 06/20/2015 Overview: S/p repair Bilateral carotid artery disease 06/20/2015 Medical home patient encounter 05/19/2014 Hypertriglyceridemia 05/16/2012 CORON ATHEROSCL [place] CORON VESSEL 07/11/2010 Dyslipidemia, goal LDL below [...] Description 12/05/2023 9:10 AM EDT Laboratory Laboratory, [facility] [address] [facility] [place] [phone] [facility] 132 [facility] [place] [address] 12/05/2023 9:45 AM EDT Office Visit Hematology/Oncology [facility] 200 [facility] [place] [address] Lasha [facility] MD [facility] [address] 12/05/2023 11:00 AM EDT Hem/Onc Treatment Hematology/Oncology Treatment, [place] [address] [facility] [address] [place] [phone] Diane, Chair 9 Hem [address]c [address] [address] 12/06/2023 11:30 AM EDT Telemedicine Interventional Pain Center, [facility] [address] [facility] [place] [address] Leeanna Centeno PA-C 132 [facility] [place] [address] 12/17/2023 10:00 AM EDT Appointment Vascular Lab [facility], [place] [address] [place] [address] 12/17/2023 10:30 AM EDT Office Visit Vascular Surg [facility], [place] [address] [place] [address] Margarito Cabrera MD [address] [place] [address] 12/26/2023 8:30 AM EDT Laboratory Laboratory [facility] [place] [address] [place] [address] Diane, Lab [facility] 200 [facility] [place] [address] 12/26/2023 9:30 AM EDT Hem/Onc Treatment Hematology/Oncology Treatment, [place] [address] [facility] [phone] Diane, Chair 1 Hem Onc Scenery 200 [facility] [place] [address] Scheduled Procedures Name Priority Associated Diagnoses Date/Ti [...] this encounter Medical Devices Implanted Type Area Cinder Crane Operator Device Identifier Shelf Expiration Date Model / Serial / Lot Stent Main Body Oggm-10-40-Zt - [id number] Implanted:Qty: 1 on 06/10/2014 by Ronal Gallegos MD at OR [facility] Aorta [employer]OOK [employer] 04/07/2016 TFFB-24-8 2-ZT / / Graft Iliac Leg Spirlz 60r87ld - [id number] Implanted:Qty: 1 on 06/10/2014 by Ronal Gallegos MD at OR [facility] Right: Aorta [employer] 10/09/2015 [id number] / / [id number] Description: Graft Iliac Leg Spirlz 64s34jw - [id number] Implanted:Qty: 1 on 06/10/2014 by Ronal Gallegos MD at OR [facility] Right: Femoral Artery [employer] 11/07/2016 [id number] / / [id number] Stent Polmer 29mm P3110 - [id number] Implanted:Qty: 1 on 06/10/2014 by Ronal Gallegos MD at OR [facility] N/A: Aorta JNJ : CORDIS ENDOVASCULAR 07/26/2018 P3110 / / [id number] Codman Orbit Galaxy Coil 2.5mm X 3.5cm Implanted:Qty: 1 on 09/12/2015 by Arik Shin MD at OR [facility] Left: Head LENORA & LENORA CODMAN 02/26/2017 [id number] / [id number] / [id number] Description:COMPLEX XTRASOFT detachable coil deployed left internal carotid artery Codman Orbit Galaxy Coil 2.5mm X 2.5cm Implanted:Qty: 1 on 09/12/2015 by Arik Shin MD at OR [facility] Left: Head LENORA & LENORA CODMAN 01/27/2016 [id number] / [id number] / [id number] Description:COMPLEX XTRASOFT detachable coil deployed left internal carotid artery aneurysm Codman Unga 2 Stent 4mm X 30mm Implanted:Qty: 1 on 09/12/2015 by Arik Shin MD at OR [facility] Left: Head LENORA & LENORA DEPUY 03/26/2018 [id number] / [id number] / [id number] Description:Vascular reconst ruction device deployed in left internal carotid artery Codman Orbit Galaxy Coil 6mm X 20cm Implanted:Qty: 1 on 09/12/2015 by Arik Shin MD at OR [facility] Left: Head LENORA & LENORA CODMAN 09/26/2016 [id number] / [id number] / [id number] Description:COMPLEX FILL det achable coil deployed left internal carotid artery aneurysm Codman Orbit Galaxy Coil 4mm X 10cm Implanted:Qty: 1 on 09/12/2015 by Arik Shin MD at OR [facility] Left: Head LENORA & LENORA [facility] 10/27/2015 [id number] 0 / [id number] / [id number] Description:COMPLEX XTRASOFT detachable coil deployed left internal carotid artery aneurysm Codman Orbit Galaxy Coil 3.5mm X 9cm Implanted:Qty: 1 on 09/12/2015 by Arik Shin MD at OR [facility] Left: Head LENORA & LENORA CODMAN 12/28/2015 [id number] / [id number] / [id number] Description:COMPLEX XTRASOFT detachable coil deployed left internal carotid artery aneurysm Codman Orbit Galaxy Coil 3mm X 6cm Implanted:Qty: 1 on 09/12/2015 by Arik Shin MD at OR [facility] Left: Head LENORA & LENORA CODMAN 04/28/2017 [id number] / [id number] / [id number] Description:COMPLEX XTRASOFT detachable coil deployed left internal carotid artery aneurysm Lens Intraoc 21.0 - [id number] - [id number] Implanted:Qty: 1 on 11/08/2020 by Yuri Bradley MD at OR [facility] Left: Eye BAUSCH & LOMB 06/26/2025 [id number] / [id number] Lens Intraoc 20.5 - [id number] - [id number] Implanted:Qty: 1 on 11/22/2020 by Yuri Bradley MD at OR [facility] Right: Eye BAUSCH & LOMB 07/27/2025 [id number] / [id number] Clip Quick 2.8mm 230cm - [id number] Implanted:Qty: 3 on 03/29/2021 by Luciana Fernandez MD at ENDOSCOPY [facility] [employer] 08/27/2023 HX-202UR. A / / Sureclip 16mm 235cm - [id number] Implanted:Qty: 2 on 05/07/2022 by Luciana Fernandez MD at ENDOSCOPY [facility] Colon MICRO TECH ENDOSCOPY 07/06/2024 [id number] / / Power Port 8fr Sngl Lumen Plas - [id number] Implanted:Qty: 1 on 01/30/2023 by Koko Santiago MD at OR [facility] N/A: Chest CR BARD : PERIPHERAL VASCULAR 07/27/2024 [id number] / / [id number] Power Port 8fr Sngl Lumen Plas - [id number] Implanted:Qty: 1 on 01/30/2023 by Koko Santiago MD at OR [facility] CR BARD : PERIPHERAL VASCULAR [id number] 07/27/2024 [id number] / / [id number] documented as of this encounter Visit Diagnoses [...] and were consensually agreed upon. Care Teams Crane Service Technician Relationship Specialty Start Date End Date Mauro Watson DO [address] [place] [address] PCP - General Family Medicine 04/13/19 documented as of this encounter
--- OUTSIDE RECORDS SUMMARY | 2024-02-19 09:27 | External Medical Summary | Summary of Care ---
Author Name Unknown Organization [facility] Address [address] [place] [address] Phone [phone] Care Team Providers Care Product Inspection Supervisor Name Role Phone Mauro Watson DO [...] [place] FOSAPREPITANT INJECTION Lasha Christine MD 200 [place] [address] Anc Hem/Onc [address] [address] Referral ID Status Reason Start Date Expiration Date V isits Requested Visits Authorized [id number] Authorized 08/22/2023 04/28/2099 999 99 Encounter Details Date Type Department Care Team (Latest Contact Info) Description 11/14/2023 8:15 AM EDT Hem/Onc Treatment Hematology/Oncolog y Treatment, [address] [phone] Diane, Chair 7 Hem Onc [address] [place] [address] Encounter for antineoplastic chemotherapy*; Metastatic carcinoma involving [...] EGFR 72 Lumbar radiculopathy 05/27/2019 Atherosclerosis of [place] co ronary artery of [place] heart with angina pectoris 05/05/2019 History of [...] Description 12/05/2023 9:10 AM EDT Laboratory Laboratory, [facility] 132 [facility] [place] [phone] [facility] 132 [facility] [place] [address] 12/05/2023 9:45 AM EDT Office Visit Hematology/Oncology [facility] 200 [facility] [place] [address] Lasha Christine MD 200 [facility] [address] 12/05/2023 11:00 AM EDT Hem/Onc Treatment Hematology/Oncology Treatment, [place] [address] [place] [phone] Diane, Chair 9 Hem Onc [address] [address] 12/06/2023 11:30 AM EDT Telemedicine Interventional Pain Center, [facility] 132 [facility] [place] [address] Leeanna Centeno PA-C 132 [facility] [place] [address] 12/17/2023 10:00 AM EDT Appointment Vascular Lab [facility], [place] [address] [place] [address] 12/17/2023 10:30 AM EDT Office Visit Vascular Surg [facility], [place] [address] [place] [address] Margarito Cabrera MD [address] [place] [address] 12/26/2023 8:30 AM EDT Laboratory Laboratory [facility] [place] [address] [place] [address] Diane, Lab [facility] [address] [facility] [place] [address] 12/26/2023 9:30 AM EDT Hem/Onc Treatment Hematology/Oncology Treatment, [place] [address] [facility] [phone] Diane, Chair 1 Hem Onc Scenery 200 [place] [address] Scheduled Procedures Name Priority Associated Diagnoses Date/Ti [...] this encounter Medical Devices Implanted Type Area Distilling Department Supervisor Device Identifier Shelf Expiration Date Model / Serial / Lot Stent Main Body Djuc-14-84-Zt - [id number] Implanted:Qty: 1 on 06/10/2014 by Ronal Gallegos MD at [place] [facility] Aorta [employer] 04/07/2016 TFFB-24-8 2-ZT / / Graft Iliac Leg Spirlz 42m27cs - [id number] Implanted:Qty: 1 on 06/10/2014 by Ronal Gallegos MD at [place] [facility] Right: Aorta [employer] 10/09/2015 [id number] / / [id number] Description: Graft Iliac Leg Spirlz 30y47yp - [id number] Implanted:Qty: 1 on 06/10/2014 by Ronal Gallegos MD at [place] [facility] Right: Femoral Artery [employer] 11/07/2016 [id number] / / [id number] Stent Polmer 29mm P3110 - [id number] Implanted:Qty: 1 on 06/10/2014 by Ronal Gallegos MD at OR [facility] N/A: Aorta JNJ : CORDIS ENDOVASCULAR 07/26/2018 P3110 / / [id number] Codman Orbit Galaxy Coil 2.5mm X 3.5cm Implanted:Qty: 1 on 09/12/2015 by Arik Shin MD at [place] [facility] Left: Head LENORA & LENORA CODMAN 02/26/2017 [id number] / [id number] / [id number] Description:COMPLEX XTRASOFT detachable coil deployed left internal carotid artery Codman Orbit Galaxy Coil 2.5mm X 2.5cm Implanted:Qty: 1 on 09/12/2015 by Arik Shin MD at OR [facility] Left: Head LENORA & LENORA CODMAN 01/27/2016 [id number] / [id number] / [id number] Description:COMPLEX XTRASOFT detachable coil deployed left internal carotid artery aneurysm Codman [place] 2 Stent 4mm X 30mm Implanted:Qty: 1 on 09/12/2015 by Arik Shin MD at OR [facility] Left: Head LENORA & LENORA DEPUY 03/26/2018 [id number] / [id number] / [id number] Description:Vascular reconst ruction device deployed in left internal carotid artery Codman Orbit Galaxy Coil 6mm X 20cm Implanted:Qty: 1 on 09/12/2015 by Arik Shin MD at OR [facility] Left: Head LENORA & LENORA CODMAN 09/26/2016 [id number] / [id number] / [id number] Description:COMPLEX FILL det achable coil deployed left internal carotid artery aneurysm Codman Orbit Galaxy Coil 4mm X 10cm Implanted:Qty: 1 on 09/12/2015 by Arik Shin MD at [place] [facility] Left: Head LENORA & LENORA [facility] 10/27/2015 [id number] 0 / [id number] / [id number] Description:COMPLEX XTRASOFT detachable coil deployed left internal carotid artery aneurysm Codman Orbit Galaxy Coil 3.5mm X 9cm Implanted:Qty: 1 on 09/12/2015 by Arik Shin MD at [place] [facility] Left: Head LENORA & LENORA CODMAN 12/28/2015 [id number] / [id number] / [id number] Description:COMPLEX XTRASOFT detachable coil deployed left internal carotid artery aneurysm Codman Orbit Galaxy Coil 3mm X 6cm Implanted:Qty: 1 on 09/12/2015 by Arik Shin MD at [place] [facility] Left: Head LENORA & LENORA CODMAN 04/28/2017 [id number] / [id number] / [id number] Description:COMPLEX XTRASOFT detachable coil deployed left internal carotid artery aneurysm Lens Intraoc 21.0 - [id number] - [id number] Implanted:Qty: 1 on 11/08/2020 by Yuri Bradley MD at OR [facility] Left: Eye BAUSCH & LOMB 06/26/2025 [id number] / [id number] Lens Intraoc 20.5 - [id number] - [id number] Implanted:Qty: 1 on 11/22/2020 by Yuri Bradley MD at OR [facility] Right: Eye BAUSCH & LOMB 07/27/2025 [id number] / [id number] Clip Quick 2.8mm 230cm - [id number] Implanted:Qty: 3 on 03/29/2021 by Luciana Fernandez MD at ENDOSCOPY [facility] [employer] 08/27/2023 HX-202UR. A / / Sureclip 16mm 235cm - [id number] Implanted:Qty: 2 on 05/07/2022 by Luciana Fernandez MD at ENDOSCOPY [facility] Colon MICRO TECH ENDOSCOPY 07/06/2024 [id number] / / Power Port 8fr Sngl Lumen Plas - [id number] Implanted:Qty: 1 on 01/30/2023 by Koko Santiago MD at OR [facility] N/A: Chest CR BARD : PERIPHERAL VASCULAR 07/27/2024 [id number] / / [id number] Power Port 8fr Sngl Lumen Plas - [id number] Implanted:Qty: 1 on 01/30/2023 by Koko Santiago MD at OR [facility] CR BARD : PERIPHERAL VASCULAR [id number] 07/27/2024 [id number] / / [id number] documented as of this encounter Visit Diagnoses [...] and were consensually agreed upon. Care Teams Product Inspection Supervisor Relationship Specialty Start Date End Date Mauro Watson DO [address] [place] [address] PCP - General Family Medicine 04/13/19 documented as of this encounter
--- OUTSIDE RECORDS SUMMARY | 2024-02-19 09:27 | External Medical Summary | Summary of Care ---
Author Name Unknown Organization [facility] Address [address] [place] [address] Phone [phone] Care Team Providers Care Project Administrative Assistant Name Role Phone Mauro Watson DO Primary [...] lung, unspecified part of lung (HCC) Procedures [place] INJ. PEMETREXED NOS 10MG [place] CARBOPLATIN INJECTION [place] FOSAPREPITANT INJECTION Lasha Christine MD 200 [facility] [place] [address] Anc Hem/Onc [address] [address] Referral ID Status Reason Start Date Expiration Date V isits Requested Visits Authorized [id number] Authorized 08/22/2023 04/28/2099 999 99 Encounter Details Date Type Department Care Team (Latest Contact Info) Description 11/14/2023 8:15 AM EDT Hem/Onc Treatment Hematology/Oncolog y Treatment, [address] [address] Diane, Chair 7 Hem Onc [address] [place] [address] Encounter for antineoplastic chemotherapy*; Metastatic carcinoma involving [...] EGFR 72 Lumbar radiculopathy 05/27/2019 Atherosclerosis of [place] co ronary artery of [place] heart with angina pectoris 05/05/2019 History of [...] Description 12/05/2023 9:10 AM EDT Laboratory Laboratory, [facility] 132 [facility] [place] [phone] [facility] 132 [facility] [place] [address] 12/05/2023 9:45 AM EDT Office Visit Hematology/Oncology [facility] 200 [facility] [place] [address] Lasha Christine MD 200 [facility] [address] 12/05/2023 11:00 AM EDT Hem/Onc Treatment Hematology/Oncology Treatment, [place] 200 [facility] [address] [place] [phone] Diane, Chair 9 Hem Onc [address] [address] 12/06/2023 11:30 AM EDT Telemedicine Interventional Pain Center, [facility] 132 [facility] [place] [address] Leeanna Centeno PA-C 132 [facility] [place] [address] 12/17/2023 10:00 AM EDT Appointment Vascular Lab [facility], [place] [address] [place] [address] 12/17/2023 10:30 AM EDT Office Visit Vascular Surg [facility], [place] [address] [place] [address] Margarito Cabrera MD [address] [place] [address] 12/26/2023 8:30 AM EDT Laboratory Laboratory [facility] [place] [address] [place] [address] Diane, Lab [facility] 200 [facility] COUNTS INCLUDE [address] [facility] [place] [address] 12/26/2023 9:30 AM EDT Hem/Onc Treatment Hematology/Oncology Treatment, [place] [address] [facility] [phone] Diane, Chair 1 Hem Onc [address] 200 [facility] [place] [address] Scheduled Procedures Name Priority Associated Diagnoses Date/Ti [...] this encounter Medical Devices Implanted Type Area Control Director Device Identifier Shelf Expiration Date Model / Serial / Lot Stent Main Body Hxga-10-06-Zt - [id number] Implanted:Qty: 1 on 06/10/2014 by Ronal Gallegos MD [place] [facility] Aorta [employer] 04/07/2016 TFFB-24-8 2-ZT / / Graft Iliac Leg Spirlz 32x42vm - [id number] Implanted:Qty: 1 on 06/10/2014 by Ronal Gallegos MD [place] [facility] Right: Aorta [employer] 10/09/2015 [id number] / / [id number] Description: Graft Iliac Leg Spirlz 55u72ir - [id number] Implanted:Qty: 1 on 06/10/2014 by Ronal Gallegos MD [place] [facility] Right: Femoral Artery [employer] 11/07/2016 [id number] / / [id number] Stent Polmer 29mm P3110 - [id number] Implanted:Qty: 1 on 06/10/2014 by Ronal Gallegos MD at [place] [facility] N/A: Aorta JNJ : CORDIS ENDOVASCULAR 07/26/2018 P3110 / / [id number] Codman Orbit Galaxy Coil 2.5mm X 3.5cm Implanted:Qty: 1 on 09/12/2015 by Arik Shin MD [place] [facility] Left: Head LENORA & LENORA CODMAN 02/26/2017 [id number] / [id number] / [id number] Description:COMPLEX XTRASOFT detachable coil deployed left internal carotid artery Codman Orbit Galaxy Coil 2.5mm X 2.5cm Implanted:Qty: 1 on 09/12/2015 by Arik Shin MD [place] [facility] Left: Head LENORA & LENORA CODMAN 01/27/2016 [id number] / [id number] / [id number] Description:COMPLEX XTRASOFT detachable coil deployed left internal carotid artery aneurysm Codman [place] 2 Stent 4mm X 30mm Implanted:Qty: 1 on 09/12/2015 by Arik Shin MD at [place] [facility] Left: Head LENORA & LENORA DEPUY 03/26/2018 [id number] / [id number] / [id number] Description:Vascular reconst ruction device deployed in left internal carotid artery Codman Orbit Galaxy Coil 6mm X 20cm Implanted:Qty: 1 on 09/12/2015 by Arik Shin MD at [place] [facility] Left: Head LENORA & LENORA CODMAN 09/26/2016 [id number] / [id number] / [id number] Description:COMPLEX FILL det achable coil deployed left internal carotid artery aneurysm Codman Orbit Galaxy Coil 4mm X 10cm Implanted:Qty: 1 on 09/12/2015 by Arik Shin MD at [place] [facility] Left: Head LENORA & LENORA [facility] 10/27/2015 [id number] 0 / [id number] / [id number] Description:COMPLEX XTRASOFT detachable coil deployed left internal carotid artery aneurysm Codman Orbit Galaxy Coil 3.5mm X 9cm Implanted:Qty: 1 on 09/12/2015 by Arik Shin MD at [place] [facility] Left: Head LENORA & LENORA CODMAN 12/28/2015 [id number] / [id number] / [id number] Description:COMPLEX XTRASOFT detachable coil deployed left internal carotid artery aneurysm Codman Orbit Galaxy Coil 3mm X 6cm Implanted:Qty: 1 on 09/12/2015 by Arik Shin MD at [place] [facility] Left: Head LENORA & LENORA CODMAN 04/28/2017 [id number] / [id number] / [id number] Description:COMPLEX XTRASOFT detachable coil deployed left internal carotid artery aneurysm Lens Intraoc 21.0 - [id number] - [id number] Implanted:Qty: 1 on 11/08/2020 by Yuri Bradley MD at OR [facility] Left: Eye BAUSCH & LOMB 06/26/2025 [id number] / [id number] Lens Intraoc 20.5 - [id number] - [id number] Implanted:Qty: 1 on 11/22/2020 by Yuri Bradley MD at OR [facility] Right: Eye BAUSCH & LOMB 07/27/2025 [id number] / [id number] Clip Quick 2.8mm 230cm - [id number] Implanted:Qty: 3 on 03/29/2021 by Luciana Fernandez MD at ENDOSCOPY [facility] [employer] 08/27/2023 HX-202UR. A / / Sureclip 16mm 235cm - [id number] Implanted:Qty: 2 on 05/07/2022 by Luciana Fernandez MD at ENDOSCOPY [facility] Colon MICRO TECH ENDOSCOPY 07/06/2024 [id number] / / Power Port 8fr Sngl Lumen Plas - [id number] Implanted:Qty: 1 on 01/30/2023 by Koko Santiago MD at OR [facility] N/A: Chest CR BARD : PERIPHERAL VASCULAR 07/27/2024 [id number] / / [id number] Power Port 8fr Sngl Lumen Plas - [id number] Implanted:Qty: 1 on 01/30/2023 by Koko Santiago MD at OR [facility] CR BARD : PERIPHERAL VASCULAR [id number] 07/27/2024 [id number] / / [id number] documented as of this encounter Visit Diagnoses [...] and were consensually agreed upon. Care Teams Project Administrative Assistant Relationship Specialty Start Date End Date Mauro Watson DO [address] [place] [address] PCP - General Family Medicine 04/13/19 documented as of this encounter
--- OUTSIDE RECORDS SUMMARY | 2024-02-19 09:27 | External Medical Summary | Summary of Care ---
Author Name Unknown Organization [facility] Address [address] [place] [address] Phone [phone] Care Team Providers Care Wind Turbine Controls Engineer Name Role Phone Watson Mauro Leonardogordy Primary Care Provider Reason for Visit * Reason Onset Date Comments Medication Refill 11/21/2023 Encounter Details Date Type Department Care Team (Late st Contact Info) Description 11/21/2023 Refill Hematology/Oncology [facility] [address] [facility] [place] [place] [phone] Ernie Christine MD [address] [facility] [place] [place] [address] 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); Malignant neoplasm of left lung, unspecified part of lung (HCC) Allergies Active Allergy Reactions Criticality Noted Date Comments Aspirin Bleeding High 11/26/2011 Significant hemorroidal bleed on aspirin,high doses Duloxetine Hcl Hypertension 01/26/2020 documented as of this encounter (statuses as of 11/21/2023) Medications Medication Sig Dispensed Refills Start Date [...] the chemotherapy. 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 05/05/2019 History of colon polyps 08/12/2018 ACEI/ARB contraindicated 09/21/2016 Carotid aneurysm, left 09/13/2015 Overview: S/p coil embolization Cerebral aneurysm, nonruptured 09/05/2015 AAA (abdominal aortic aneurysm) 06/20/2015 Overview: S/p repair Bilateral carotid artery disease 06/20/2015 Medical home patient encounter 05/19/2014 Hypertriglyceridemia 05/16/2012 CORON ATHEROSCL [place] CORON VESSEL 07/11/2010 Dyslipidemia, goal LDL below [...] as of this encounter (statuses as of 11/21/2023) Resolved Problems Problem Noted Date Diagnosed Date [...] as of this encounter (statuses as of 11/21/2023) Immunizations Name Administration Dates Next Due COVID-19 [...] Telephone Encounter - Lorri Matias RN - 11/21/2023 3:47 PM EDTSigned Prescriptions: Disp Refills dexAMETHasone 4 MG Oral Tablet 36 Tab*1 Sig: One tablet twice a day for 3 days only, starting one day before the chemotherapy.Authorizing Provider: ERNIE CHRISTINE-- * Telephone Encounter - Ernie Christine MD - 11/21/2023 3:37 PM EDT E-prescribed Ernie Christine MD Hem/Onc * Telephone Encounter - Lorri Matias RN - 11/21/2023 3:27 PM EDTPending Prescriptions: Disp Refills dexAMETHasone 4 MG Oral Tablet 36 Tab*1 Sig: One tablet twice a day for 3 days only, starting one day before the chemotherapy. * Telephone Encounter - Lorri Matias RN - 11/21/2023 3:26 PM EDT Patient on alimta/ carbo. * Telephone Encounter - Soha Whaley CPhT - 11/21/2023 10:53 AM EDT Patient is up to date for office visits. Pending Prescriptions: Disp Refills dexAMETHasone 4 MG Oral Tablet 36 Tab*1 Sig: One tablet twice a day for 3 days only, starting one day before the chemotherapy. Last Visit: 11/14/2023 (in office), Visit date not found (telemedicine) Next Visit: 12/05/2023 If no future appointments scheduled, and last appointment is greater than a year ago, please schedule patient for a follow-up appointment Last date the medication was ordered: 08/22/2023 Pharmacy: [id number] [facility][1] Is this request for a controlled substance?No it is not controlled. Urine Drug Screen:No results found. However, due to the size of the patient record, not all encounters were searched. Please check Results Review for a complete set of results. Patient Phone Numbers Labs: Lab Results Component Value Date/Time CREAT 1.0 11/14/2023 07:42 AM CREAT 1.1 10/18/2022 08:00 AM CREAT 1.2 04/21/2020 12:32 PM POTASSIUM 4.5 11/14/2023 07:42 AM POTASSIUM 4.6 04/21/2020 12:32 PM POTASSIUM 4.8 02/26/1996 09:05 AM TSH 0.54 10/03/2023 11:53 AM TSH 0.88 09/29/2008 02:20 PM TSH 0.65 02/26/1996 09:05 AM LDLCALC UNINTERPRETABLE RESULT 10/31/2018 07:52 AM LDLCALC 156. (H) 02/26/1996 09:05 AM LDLDIRECT 67 05/17/2022 03:36 PM LDLDIRECT 56 01/13/2020 10:55 AM LDLDIRECT 67 10/20/2013 09:52 AM ALT 23 11/14/2023 07:42 AM ALT 47 04/21/2020 12:32 PM HGBA1C 5.5 05/11/2021 11:39 AM documented in this encounter Plan of Treatment Upcoming Encounters Date Type Department Care Team (Late st Contact Info) Description 11/28/2023 11:45 AM EDT Imaging Radiology [facility] [address] [place] [address] 12/05/2023 9:10 AM EDT Laboratory Laboratory, [address] [place] [address] [facility] [address] 12/05/2023 9:45 AM EDT Office Visit Hematology/Oncology [facility] [address] [place] [phone] Ernie Christine MD [address] [place] [address] 12/05/2023 11:00 AM EDT Hem/Onc Treatment Hematology/Oncology Treatment, [place] [address] [place], [place] [phone] Diane, Chair 9 Hem Onc Scene [address] [facility] [place] [place] [address] 12/06/2023 11:30 AM EDT Telemedicine Interventional Pain Center, [facility] [address] Leeanna Centeno PA-C [address] [facility] [address] 12/17/2023 10:00 AM EDT Appointment Vascular Lab [place] [address] [place] [address] 12/17/2023 10:30 AM EDT Office Visit Vascular Surg [facility] [address] [place] [address] Margarito Cabrera MD [address] [place] [address] 12/26/2023 8:30 AM EDT Laboratory Laboratory [facility] [place] [address] [place] [address] Diane, Lab Scenery [address] [facility] [place], [place] [address] 12/26/2023 9:30 AM EDT Hem/Onc Treatment Hematology/Oncology Treatment, [place] [address] [place], [place] [address] Diane, Chair 1 Hem Onc Scenery [address] [place] [address] Scheduled Procedures Name Priority Associated Diagnoses Date/Ti [...] history exists Albumin/Creatinine Ratio 05/17/2025 05/17/2022, / DTaP,Tdap,and Td Vaccines (4 - Td or [...] this encounter Medical Devices Implanted Type Area Automatic Drilling Machine Operator Device Identifier Shelf Expiration Date Model / Serial / Lot Stent Main Body Ecbq-90-13-Zt - [id number] Implanted:Qty: 1 on 06/10/2014 by Ronal Gallegos MD at [place] [facility] Aorta [employer] 04/07/2016 TFFB-24-8 2-ZT / / Graft Iliac Leg Spirlz [id number] - [id number] Implanted:Qty: 1 on 06/10/2014 by Ronal Gallegos MD at [place] [facility] Right: Aorta [employer] 10/09/2015 [id number] / / [id number] Description: Graft Iliac Leg Spirlz 32s94en - [id number] Implanted:Qty: 1 on 06/10/2014 by Ronal Gallegos MD at [place] [facility] Right: Femoral Artery [employer] 11/07/2016 [id number] / / [id number] Stent Polmer 29mm P3110 - [id number] Implanted:Qty: 1 on 06/10/2014 by Ronal Gallegos MD at [place] [facility] N/A: Aorta JNJ : CORDIS ENDOVASCULAR 07/26/2018 [id number] / / [id number] Codman Orbit Galaxy Coil 2.5mm X 3.5cm Implanted:Qty: 1 on 09/12/2015 by Arik Shin MD at [place] [facility] Left: Head LENORA [employer] LENORA CODMAN 02/26/2017 [id number] / [id number] / [id number] Description:COMPLEX XTRASOFT detachable coil deployed left internal carotid artery Codman Orbit Galaxy Coil 2.5mm X 2.5cm Implanted:Qty: 1 on 09/12/2015 by Arik Shin MD at [place] [facility] Left: Head LENORA & LENORA CODMAN 01/27/2016 [id number] / [id number] / [id number] Description:COMPLEX XTRASOFT detachable coil deployed left internal carotid artery aneurysm Codman [place] 2 Stent 4mm X 30mm Implanted:Qty: 1 on 09/12/2015 by Arik Shin MD at [place] [facility] Left: Head LENORA & LENORA DEP 03/26/2018 [id number] / [id number] / [id number] Description:Vascular reconst ruction device deployed in left internal carotid artery Codman Orbit Galaxy Coil 6mm X 20cm Implanted:Qty: 1 on 09/12/2015 by Arik Shin MD at [place] [facility] Left: Head LENORA & LENORA CODMAN 09/26/2016 [id number] / [id number] / [id number] Description:COMPLEX FILL det achable coil deployed left internal carotid artery aneurysm Codman Orbit Galaxy Coil 4mm X 10cm Implanted:Qty: 1 on 09/12/2015 by Arik Shin MD at [place] [facility] Left: Head LENORA & LENORA [facility] 10/27/2015 [id number] / [id number] / [id number] Description:COMPLEX XTRASOFT detachable coil deployed left internal carotid artery aneurysm Codman Orbit Galaxy Coil 3.5mm X 9cm Implanted:Qty: 1 on 09/12/2015 by Arik Shin MD at [place] [facility] Left: Head LENORA & LENORA [facility] 12/28/2015 [id number] / [id number] / [id number] Description:COMPLEX XTRASOFT detachable coil deployed left internal carotid artery aneurysm Codman Orbit Galaxy Coil 3mm X 6cm Implanted:Qty: 1 on 09/12/2015 by Arik Shin MD at [place] [facility] Left: Head LENORA [employer] LENORA [employer] 04/28/2017 [id number] / [id number] / [id number] Description:COMPLEX XTRASOFT detachable coil deployed left internal carotid artery aneurysm Lens Intraoc 21.0 - [id number] - [id number] Implanted:Qty: 1 on 11/08/2020 by Yuri Bradley MD at OR [facility] Left: Eye BAUSCH & LOMB 06/26/2025 [id number] / [id number] / [id number] Lens Intraoc 20.5 - [id number] - [id number] Implanted:Qty: 1 on 11/22/2020 by Yuri Bradley MD at OR [facility] Right: Eye BAUSCH & LOMB 07/27/2025 [id number] / [id number] / [id number] Clip Quick 2.8mm 230cm - [id number] Implanted:Qty: 3 on 03/29/2021 by Luciana Fernandez MD at ENDOSCOPY [facility] [employer] 08/27/2023 HX-202UR. A / / Sureclip 16mm 235cm - [id number] Implanted:Qty: 2 on 05/07/2022 by Luciana Fernandez MD at ENDOSCOPY [facility] Colon MICRO TECH ENDOSCOPY 07/06/2024 [id number] / / Power Port 8fr Sngl Lumen Plas - [id number] Implanted:Qty: 1 on 01/30/2023 by Koko Santiago MD at OR [facility] N/A: Chest CR BARD : PERIPHERAL VASCULAR 07/27/2024 [id number] / / [id number] Power Port 8fr Sngl Lumen Plas - [id number] Implanted:Qty: 1 on 01/30/2023 by Koko Santiago MD at OR [facility] CR BARD : PERIPHERAL VASCULAR [id number] 07/27/2024 [id number] / / [id number] documented as of this encounter Visit Diagnoses Diagnosis 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) Malignant neoplasm of left lung, unspecified part of lung (HCC) documented in this encounter Advance Directives [...] and were consensually agreed upon. Care Teams Wind Turbine Controls Engineer Relationship Specialty Start Date End Date Mauro Watson DO [address] [place] [address] PCP - General Family Medicine 04/13/19 documented as of this encounter
--- OUTSIDE RECORDS SUMMARY | 2024-02-19 09:27 | External Medical Summary | Summary of Care ---
Author Name Unknown Organization [facility] Address [address] [place] [address] Phone [phone] Care Team Providers Care Automation Consultant Name Role Phone Nicol Watson DO Primary Care Provider Reason for Visit * Reason Onset Date Comments Medication Refill 11/21/2023 Encounter Details Date Type Department Care Team (Late st Contact Info) Description 11/21/2023 Refill Family Practice [facility] [address] [place] [address] Nicol Watson DO [address] [place] [address] HTN, goal below 140/90 Allergies Active Allergy Reactions Criticality Noted Date [...] Additional Information Patient not taking.Reported on 11/05/2023 dexAMETHasone 4 MG Oral TabletIndications: 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),Malignant neoplasm of left lung, unspecified part of lung (HCC) One tablet twice a day for 3 days only, starting one day before the chemotherapy. 36 Tablet 1 08/22/2023 Active Folic Acid 1 MG Oral TabletIndications: Metastatic [...] before bedtime. 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 01/21/2023 Encounter for antineoplastic chemotherapy 2022 Medical marijuana use 08/26/2021 CKD (chronic kidney disease), stage II 2 Overview: EGFR 72 Lumbar radiculopathy 05/27/2019 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 05/05/2019 History of colon polyps 08/12/2018 ACEI/ARB contraindicated 09/21/2016 Carotid aneurysm, left 09/13/2015 Overview: S/p coil embolization Cerebral aneurysm, nonruptured 09/05/2015 AAA (abdominal aortic aneurysm) 06/20/2015 Overview: S/p repair Bilateral carotid artery disease 06/20/2015 Medical home patient encounter 05/19/2014 Hypertriglyceridemia 05/16/2012 CORON ATHEROSCL [place] CORON VESSEL 07/11/2010 Dyslipidemia, goal LDL below [...] encounter Miscellaneous Notes * Telephone Encounter - Maine Durham RP - 11/21/2023 10:51 AM EDTSigned Prescriptions: Disp Refills Metoprolol Tartrate 25 MG Oral Tablet (Lop*90 Tab*1 Sig: Take 0.5 Tablets by mouth in the morning and 0.5 Tablets before bedtime.Authorizing Provider: NICOL WATSON User: MAINE DURHAM * Telephone Encounter - Adriana Caldwell CPhT - 11/21/2023 10:47 AM EDT Pt is out of medication Please reroute Rx to E [id number] [address] [facility]. Pending Prescriptions: Disp Refills Metoprolol Tartrate 25 MG Oral Tablet (Lo*90 Tab*1 Sig: Take 0.5 Tablets by mouth in the morning and 0.5 Tablets before bedtime. Last Visit: 12/06/2022 (in office), 11/09/2021 (telemedicine) Visit date not found If no future appointments scheduled, and last appointment is greater than a year ago, please schedule patient for a follow-up appointment Last date the medication was ordered: 03/31/23 Patient Phone Numbers Labs: Lab Results Component [...] Description 11/28/2023 11:45 AM EDT Imaging Radiology [facility] [facility] [address] [place] [address] 12/05/2023 9:10 AM EDT Laboratory Laboratory, [facility] [address] [place] [phone] [facility] [place] [address] 12/05/2023 9:45 AM EDT Office Visit Hematology/Oncology [facility] [address] [facility] [phone] Lasha Christine MD 200 [facility] [place] [address] 12/05/2023 11:00 AM EDT Hem/Onc Treatment Hematology/Oncology Treatment, [place] [address] [facility] [address] [place] [phone] Diane, Chair 9 Hem Onc [address] [address] 12/06/2023 11:30 AM EDT Telemedicine Interventional Pain Center, [facility] [address] [address] Leeanna Centeno PA-C 132 [place] [address] 12/17/2023 10:00 AM EDT Appointment Vascular Lab [address] [place] [address] 12/17/2023 10:30 AM EDT Office Visit Vascular Surg [facility] [address] [place] [address] Margarito Cabrera MD [address] [place] [address] 12/26/2023 8:30 AM EDT Laboratory Laboratory [facility] [place] [address] [place] [address] Diane, Lab Scenery 200 [facility] [place] [address] 12/26/2023 9:30 AM EDT Hem/Onc Treatment Hematology/Oncology Treatment, [place] [address] [place] [address] Diane, Chair 1 Hem Onc Scenery 200 [facility] [place] [address] Scheduled Procedures Name Priority Associated Diagnoses Date/Ti me COLONOSCOPY FLEXIBLE PROXIMAL DIAGNOSTIC Recall History of colon polyps Health Maintenance Due Date Last Done Comments Cologuard 1994 Sigmoidoscopy 1994 Fecal Occult Blood Test 02/03/2001 02/04/2000, 02/02 COVID-19 Vaccine ( season) 2022 02/06/2022, 05/11/2021, 12/13/2020, Additional history exists Depression Screening 05/17/2023 05/17/2022 Colonoscopy 11/03/2023 11/02/2022, 07/10/2022, 05/07/2022, Additional history exists Colorectal Cancer Screening [...] this encounter Medical Devices Implanted Type Area Bill Adjuster Device Identifier Shelf Expiration Date Model / Serial / Lot Stent Main Body Vjno-24-72-Zt - [id number] Implanted:Qty: 1 on 06/10/2014 by Ronal Gallegos MD at OR [facility] Aorta [employer] 04/07/2016 TFFB-24-8 2-ZT / / Graft Iliac Leg Spirlz 47q23iy - [id number] Implanted:Qty: 1 on 06/10/2014 by Ronal Gallegos MD at OR [facility] Right: Aorta [employer] 10/09/2015 [id number] / / [id number] Description: Graft Iliac Leg Spirlz 06t86qp - [id number] Implanted:Qty: 1 on 06/10/2014 by Ronal Gallegos MD at OR [facility] Right: Femoral Artery [employer] 11/07/2016 [id number] / / [id number] Stent Polmer 29mm P3110 - [id number] Implanted:Qty: 1 on 06/10/2014 by Ronal Gallegos MD at OR [facility] N/A: Aorta JNJ : CORDIS ENDOVASCULAR 07/26/2018 P3110 / / [id number] Codman Orbit Galaxy Coil 2.5mm X 3.5cm Implanted:Qty: 1 on 09/12/2015 by Arik Shin MD at OR [facility] Left: Head LENORA [employer] LENORA CODMAN 02/26/2017 [id number] / [id number] / [id number] Description:COMPLEX XTRASOFT detachable coil deployed left internal carotid artery Codman Orbit Galaxy Coil 2.5mm X 2.5cm Implanted:Qty: 1 on 09/12/2015 by Arik Shin MD at OR [facility] Left: Head LENORA [employer] LENORA CODMAN 01/27/2016 [id number] / [id number] / [id number] Description:COMPLEX XTRASOFT detachable coil deployed left internal carotid artery aneurysm Codman Barnhart 2 Stent 4mm X 30mm Implanted:Qty: 1 on 09/12/2015 by Arik Shin MD at OR [facility] Left: Head LENORA & LENORA DEPUY 03/26/2018 [id number] / [id number] / [id number] Description:Vascular reconst ruction device deployed in left internal carotid artery Codman Orbit Galaxy Coil 6mm X 20cm Implanted:Qty: 1 on 09/12/2015 by Arik Shin MD at OR [facility] Left: Head LENORA [employer] LENORA CODMAN 09/26/2016 [id number] / [id number] / [id number] Description:COMPLEX FILL det achable coil deployed left internal carotid artery aneurysm Codman Orbit Galaxy Coil 4mm X 10cm Implanted:Qty: 1 on 09/12/2015 by Arik Shin MD at OR [facility] Left: Head LENORA & LENORA CODMAN 10/27/2015 [id number] / [id number] / [id number] Description:COMPLEX XTRASOFT detachable coil deployed left internal carotid artery aneurysm Codman Orbit Galaxy Coil 3.5mm X 9cm Implanted:Qty: 1 on 09/12/2015 by Arik Shin MD at OR [facility] Left: Head LENORA & LENORA CODMAN 12/28/2015 [id number] / [id number] / [id number] Description:COMPLEX XTRASOFT detachable coil deployed left internal carotid artery aneurysm Codman Orbit Galaxy Coil 3mm X 6cm Implanted:Qty: 1 on 09/12/2015 by Arik Shin MD at OR [facility] Left: Head LENORA & LENORA CODMAN 04/28/2017 [id number] / [id number] / [id number] Description:COMPLEX XTRASOFT detachable coil deployed left internal carotid artery aneurysm Lens Intraoc 21.0 - [id number] - [id number] Implanted:Qty: 1 on 11/08/2020 by Yuri Bradley MD at OR [facility] Left: Eye BAUSCH & LOMB 06/26/2025 [id number] / [id number] / [id number] Lens Intraoc 20.5 - [id number] - [id number] Implanted:Qty: 1 on 11/22/2020 by Yuri Bradley MD at OR [facility] Right: Eye BAUSCH & LOMB 07/27/2025 [id number] / [id number] / [id number] Clip Quick 2.8mm 230cm - [id number] Implanted:Qty: 3 on 03/29/2021 by Luciana Fernandez MD at ENDOSCOPY [facility] [employer] 08/27/2023 HX-202UR. A / / Sureclip 16mm 235cm - [id number] Implanted:Qty: 2 on 05/07/2022 by Luciana Fernandez MD at ENDOSCOPY [facility] Colon MICRO TECH ENDOSCOPY 07/06/2024 [id number] / / Power Port 8fr Sngl Lumen Plas - [id number] Implanted:Qty: 1 on 01/30/2023 by Koko Santiago MD at OR [facility] N/A: Chest CR BARD : PERIPHERAL VASCULAR 07/27/2024 [id number] / / [id number] Power Port 8fr Sngl Lumen Plas - [id number] Implanted:Qty: 1 on 01/30/2023 by Koko Santiago MD at [facility] CR BARD : PERIPHERAL VASCULAR [id number] 07/27/2024 [id number] / / [id number] documented as of this encounter Visit Diagnoses Diagnosis HTN, goal below 140/90 Unspecified essential hypertension documented in this encounter Advance Directives * Full Code (Latest Code Status on File) Date Activated Date Inactivated Comments 09/12/2015 11:01 AM 09/13/2015 2:50 PM This order reflects the patients wishes and were consensually agreed upon. * Full Code Date Activated Date Inactivated Comments 06/10/2014 10:48 AM 06/11/2014 8:37 PM This order reflects the patients wishes and were consensually agreed upon. Care Teams Automation Consultant Relationship Specialty Start Date End Date Nicol Watson DO [address] [place] [address] PCP - General Family Medicine 04/13/19 documented as of this encounter
--- OUTSIDE RECORDS SUMMARY | 2024-02-19 09:27 | External Medical Summary | Summary of Care ---
Author Name Unknown Organization [facility] Address [address] [place] [address] Phone [phone] Care Team Providers Care Mold Unloader Name Role Phone Mauro Watson DO Primary [...] lung, unspecified part of lung (HCC) Procedures [place] INJ. PEMETREXED NOS 10MG [place] CARBOPLATIN INJECTION [place] FOSAPREPITANT INJECTION Lasha Christine MD 200 [facility] [place] [address] Anc Hem/Onc [address] [address] Referral ID Status Reason Start Date Expiration Date V isits Requested Visits Authorized [id number] Authorized 08/22/2023 04/28/2099 999 99 Encounter Details Date Type Department Care Team (Latest Contact Info) Description 11/14/2023 8:15 AM EDT Hem/Onc Treatment Hematology/Oncolog y Treatment, [address] [address] Diane, Chair 7 Hem Onc [address] [place] [address] Encounter for antineoplastic chemotherapy*; Metastatic carcinoma involving [...] EGFR 72 Lumbar radiculopathy 05/27/2019 Atherosclerosis of [place] co ronary artery of [place] heart with angina pectoris 05/05/2019 History of colon polyps 08/12/2018 ACEI/ARB contraindicated 09/21/2016 Carotid aneurysm, left 09/13/2015 Overview: S/p coil embolization Cerebral aneurysm, nonruptured 09/05/2015 AAA (abdominal aortic aneurysm) 06/20/2015 Overview: S/p repair Bilateral carotid artery disease 06/20/2015 Medical home patient encounter 05/19/2014 Hypertriglyceridemia 05/16/2012 CORON ATHEROSCL [place] CORON VESSEL 07/11/2010 Dyslipidemia, goal LDL below [...] 12/05/2023 9:10 AM EDT Laboratory Laboratory, [facility] 132 [facility] [place] [phone] [facility] 132 [facility] [place] [address] 12/05/2023 9:45 AM EDT Office Visit Hematology/Oncology [facility] 200 [facility] [place] [address] Lasha Christine [facility] [address] 12/05/2023 11:00 AM EDT Hem/Onc Treatment Hematology/Oncology Treatment, [place] [address] [facility] [address] [place] [phone] Diane, Chair 9 Hem Onc [address] [address] 12/06/2023 11:30 AM EDT Telemedicine Interventional Pain Center, [facility] [address] [facility] [place] [address] Leeanna Centeno PA-C 132 [facility] [place] [address] 12/17/2023 10:00 AM EDT Appointment Vascular Lab [facility], [place] [address] [place] [address] 12/17/2023 10:30 AM EDT Office Visit Vascular Surg [facility], [place] [address] [place] [address] Margarito Cabrera MD [address] [place] [address] 12/26/2023 8:30 AM EDT Laboratory Laboratory [facility] [place] [address] [place] [address] Diane, Lab [facility] [address] [facility] [place] [address] 12/26/2023 9:30 AM EDT Hem/Onc Treatment Hematology/Oncology Treatment, [place] [address] [facility] [phone] Diane, Chair 1 Hem Onc [address]ery 200 [place] [address] Scheduled Procedures Name Priority Associated Diagnoses Date/Ti [...] this encounter Medical Devices Implanted Type Area Business Editor Device Identifier Shelf Expiration Date Model / Serial / Lot Stent Main Body Hute-02-41-Zt - [id number] Implanted:Qty: 1 on 06/10/2014 by Ronal Gallegos MD [place] [facility] [place] Aorta [employer] 04/07/2016 TFFB-24-8 2-ZT / / Graft Iliac Leg Spirlz 28p37tr - [id number] Implanted:Qty: 1 on 06/10/2014 by Ronal Gallegos MD [place] [facility] [place] Right: Aorta [employer] 10/09/2015 [id number] / / [id number] Description: Graft Iliac Leg Spirlz 82u37fl - [id number] Implanted:Qty: 1 on 06/10/2014 by Ronal Gallegos MD at [place] [facility] [place] Right: Femoral Artery [employer] 11/07/2016 [id number] / / [id number] Stent Polmer 29mm P3110 - [id number] Implanted:Qty: 1 on 06/10/2014 by Ronal Gallegos MD at [place] [facility] [place] N/A: Aorta JNJ : CORDIS ENDOVASCULAR 07/26/2018 P3110 / / [id number] Codman Orbit Galaxy Coil 2.5mm X 3.5cm Implanted:Qty: 1 on 09/12/2015 by Arik Shin MD at [place] [facility] [place] Left: Head LENORA [employer] LENORA CODMAN 02/26/2017 [id number] / [id number] / [id number] Description:COMPLEX XTRASOFT detachable coil deployed left internal carotid artery Codman Orbit Galaxy Coil 2.5mm X 2.5cm Implanted:Qty: 1 on 09/12/2015 by Arik Shin MD at [place] [facility] [place] Left: Head LENORA [employer] LENORA CODMAN 01/27/2016 [id number] / [id number] / [id number] Description:COMPLEX XTRASOFT detachable coil deployed left internal carotid artery aneurysm Codman Kletsel De[place] 2 Stent 4mm X 30mm Implanted:Qty: 1 on 09/12/2015 by Arik Shin MD at [place] [facility] [place] Left: Head LENORA [employer] LENORA DEPUY 03/26/2018 [id number] / [id number] / [id number] Description:Vascular reconst ruction device deployed in left internal carotid artery Codman Orbit Galaxy Coil 6mm X 20cm Implanted:Qty: 1 on 09/12/2015 by Arik Shin MD at [place] [facility] Left: Head [employer]ENORA [employer] LENORA CODMAN 09/26/2016 [id number] / [id number] / [id number] Description:COMPLEX FILL det achable coil deployed left internal carotid artery aneurysm Codman Orbit Galaxy Coil 4mm X 10cm Implanted:Qty: 1 on 09/12/2015 by Arik Shin MD at [place] [facility] Left: Head LENORA & LENORA [facility] 10/27/2015 [id number] / [id number] / [id number] Description:COMPLEX XTRASOFT detachable coil deployed left internal carotid artery aneurysm Codman Orbit Galaxy Coil 3.5mm X 9cm Implanted:Qty: 1 on 09/12/2015 by Arik Shin MD at [place] [facility] [place] Left: Head LEN[employer]A [employer]EN[employer]A CODMAN 12/28/2015 [id number] / [id number] / [id number] Description:COMPLEX XTRASOFT detachable coil deployed left internal carotid artery aneurysm Codman Orbit Galaxy Coil 3mm X 6cm Implanted:Qty: 1 on 09/12/2015 by Arik Shin MD at [place] [facility] [place] Left: Head LENORA [employer] LENORA CODMAN 04/28/2017 [id number] / [id number] / [id number] Description:COMPLEX XTRASOFT detachable coil deployed left internal carotid artery aneurysm Lens Intraoc 21.0 - [id number] - [id number] Implanted:Qty: 1 on 11/08/2020 by Yuri Bradley MD at OR [facility] Left: Eye BAUSCH [employer] LOMB 06/26/2025 [id number] / [id number] Lens Intraoc 20.5 - [id number] - [id number] Implanted:Qty: 1 on 11/22/2020 by Yuri Bradley MD at OR [facility] Right: Eye BAUSCH & LOMB 07/27/2025 [id number] / [id number] Clip Quick 2.8mm 230cm - [id number] Implanted:Qty: 3 on 03/29/2021 by Luciana Fernandez MD at ENDOSCOPY [facility] [employer] 08/27/2023 HX-202UR. A / / Sureclip 16mm 235cm - [id number] Implanted:Qty: 2 on 05/07/2022 by Luciana Fernandez MD at ENDOSCOPY [facility] Colon MICRO TECH ENDOSCOPY 07/06/2024 [id number] / / Power Port 8fr Sngl Lumen Plas - [id number] Implanted:Qty: 1 on 01/30/2023 by Koko Santiago MD at OR [facility] N/A: Chest CR BARD : PERIPHERAL VASCULAR 07/27/2024 [id number] / / [id number] Power Port 8fr Sngl Lumen Plas - [id number] Implanted:Qty: 1 on 01/30/2023 by Koko Santiago MD at OR [facility] CR BARD : PERIPHERAL VASCULAR [id number] 07/27/2024 [id number] / / [id number] documented as of this encounter Visit Diagnoses [...] and were consensually agreed upon. Care Teams Mold Unloader Relationship Specialty Start Date End Date Mauro Watson DO [address] [place] [address] PCP - General Family Medicine 04/13/19 documented as of this encounter
--- OUTSIDE RECORDS SUMMARY | 2024-02-19 09:27 | External Medical Summary | Summary of Care ---
Author Name Unknown Organization [facility] Address [address] [place] [address] Phone [phone] Care Team Providers Care Demand Planning Manager Name Role Phone Mauro Watson DO [...] [place] FOSAPREPITANT INJECTION Lasha Christine MD 200 [facility] [place] [address] Anc Hem/Onc [address] [address] Referral ID Status Reason Start Date Expiration Date V isits Requested Visits Authorized [id number] Authorized 08/22/2023 04/28/2099 999 99 Encounter Details Date Type Department Care Team (Latest Contact Info) Description 11/14/2023 8:15 AM EDT Hem/Onc Treatment Hematology/Oncolog y Treatment, [address] [address] Diane, Chair 7 Hem On[address] [place] [address] Encounter for antineoplastic chemotherapy*; Metastatic carcinoma involving [...] EGFR 72 Lumbar radiculopathy 05/27/2019 Atherosclerosis of [place] co ronary artery of [place] heart with angina pectoris 05/05/2019 History of colon polyps 08/12/2018 ACEI/ARB contraindicated 09/21/2016 Carotid aneurysm, left 09/13/2015 Overview: S/p coil embolization Cerebral aneurysm, nonruptured 09/05/2015 AAA (abdominal aortic aneurysm) 06/20/2015 Overview: S/p repair Bilateral carotid artery disease 06/20/2015 Medical home patient encounter 05/19/2014 Hypertriglyceridemia 05/16/2012 CORON ATHEROSCL [id number] CORON VESSEL 07/11/2010 Dyslipidemia, goal LDL below [...] Description 12/05/2023 9:10 AM EDT Laboratory Laboratory, [facility] 132 [facility] [place] [phone] [facility] 132 [facility] [place] [address] 12/05/2023 9:45 AM EDT Office Visit Hematology/Oncology [facility] 200 [facility] [place] [address] Lasha Chirstine MD [address] [facility] [address] 12/05/2023 11:00 AM EDT Hem/Onc Treatment Hematology/Oncology Treatment, [place] [address] [facility] [address] [place] [phone] Diane, Chair 9 Hem Onc [address] [address] 12/06/2023 11:30 AM EDT Telemedicine Interventional Pain Center, [facility] 132 [facility] [place] [address] Leeanna Centeno PA-C 132 [facility] [place] [address] 12/17/2023 10:00 AM EDT Appointment Vascular Lab [facility], [place] [address] [place] [address] 12/17/2023 10:30 AM EDT Office Visit Vascular Surg [facility], [place] [address] [place] [address] Margarito Cabrera MD [address] [place] [address] 12/26/2023 8:30 AM EDT Laboratory Laboratory [facility] [place] [address] [place] [address] Diane, Lab [facility] 200 [facility] [place] [address] 12/26/2023 9:30 AM EDT Hem/Onc Treatment Hematology/Oncology Treatment, [place] [address] [facility] [phone] Diane, Chair 1 Hem Onc [address]ery 200 [facility] [place] [address] Scheduled Procedures Name Priority Associated Diagnoses Date/Ti [...] this encounter Medical Devices Implanted Type Area Wet Wash Assembler Device Identifier Shelf Expiration Date Model / Serial / Lot Stent Main Body Prxc-96-23-Zt - [id number] Implanted:Qty: 1 on 06/10/2014 [place]onal [place] [facility] [place] Aorta [employer] 04/07/2016 TFFB-24-8 2-ZT / / Graft Iliac Leg Spirlz 79d24ai - [id number] Implanted:Qty: 1 on 06/10/2014 [place] Ronal Gal[place] [facility] [place] Right: Aorta [employer] 10/09/2015 [id number] / / [id number] Description: Graft Iliac Leg Spirlz 63k70di - [id number] Implanted:Qty: 1 on 06/10/2014 by Ronal Gal[place] [facility] [place]: Femoral Artery [employer] 11/07/2016 [id number] / / [id number] Stent Polmer 29mm P3110 - [id number] Implanted:Qty: 1 on 06/10/2014 [place] Ronal Gal[place] [facility] [place]/A: Aorta JNJ : CORDIS ENDOVASCULAR 07/26/2018 P3110 / / [id number] Codman Orbit Galaxy Coil 2.5mm X 3.5cm Implanted:Qty: 1 on 09/12/2015 by Arik Shin [place] [facility] [place]: Head L[employer]A [employer] LENORA CODMAN 02/26/2017 [id number] / [id number] / [id number] Description:COMPLEX XTRASOFT detachable coil deployed left internal carotid artery Codman Orbit Galaxy Coil 2.5mm X 2.5cm Implanted:Qty: 1 on 09/12/2015 by Arik Shin [place] [facility] [place]: Head L[employer]A [employer] LEN[employer]A CODMAN 01/27/2016 [id number] / [id number] / [id number] Description:COMPLEX XTRASOFT detachable coil deployed left internal carotid artery aneurysm Codman [place] 2 Stent 4mm X 30mm Implanted:Qty: 1 on 09/12/2015 by Arik Shin [place] [facility] [place]: Head LENORA [employer] LENORA DEPUY 03/26/2018 [id number] / [id number] / [id number] Description:Vascular reconst ruction device deployed in left internal carotid artery Codman Orbit Galaxy Coil 6mm X 20cm Implanted:Qty: 1 on 09/12/2015 by Arik Shin MD [place] [facility] [place] Left: Head [employer] L[employer]A CODMAN 09/26/2016 [id number] / [id number] / [id number] Description:COMPLEX FILL det achable coil deployed left internal carotid artery aneurysm Codman Orbit Galaxy Coil 4mm X 10cm Implanted:Qty: 1 on 09/12/2015 by Arik Shin [place] [facility] [place] Left: Head LENORA & LENORA [facility] 10/27/2015 [id number] 0 / [id number] / [id number] Description:COMPLEX XTRASOFT detachable coil deployed left internal carotid artery aneurysm Codman Orbit Galaxy Coil 3.5mm X 9cm Implanted:Qty: 1 on 09/12/2015 by Arik Shin MD [place] [facility] [place]: Head LEN[employer]A [employer] LEN[employer]A CODMAN 12/28/2015 [id number] / [id number] / [id number] Description:COMPLEX XTRASOFT detachable coil deployed left internal carotid artery aneurysm Codman Orbit Galaxy Coil 3mm X 6cm Implanted:Qty: 1 on 09/12/2015 by Arik Shin MD [place] [facility] [place] Left: Head LENORA [employer] LENORA CODMAN 04/28/2017 [id number] / [id number] / [id number] Description:COMPLEX XTRASOFT detachable coil deployed left internal carotid artery aneurysm Lens Intraoc 21.0 - [id number] - [id number] Implanted:Qty: 1 on 11/08/2020 by Yuri Bradley MD at OR [facility] Left: Eye BAUSCH & LOMB 06/26/2025 [id number] / [id number] Lens Intraoc 20.5 - [id number] - [id number] Implanted:Qty: 1 on 11/22/2020 by Yuri Bradley MD at OR [facility] Right: Eye BAUSCH & LOMB 07/27/2025 [id number] / [id number] Clip Quick 2.8mm 230cm - [id number] Implanted:Qty: 3 on 03/29/2021 by Luciana Fernandez MD at ENDOSCOPY [facility] [employer] 08/27/2023 HX-202UR. A / / Sureclip 16mm 235cm - [id number] Implanted:Qty: 2 on 05/07/2022 by Luciana Fernandez MD at ENDOSCOPY [facility] Colon MICRO TECH ENDOSCOPY 07/06/2024 [id number] / / Power Port 8fr Sngl Lumen Plas - [id number] Implanted:Qty: 1 on 01/30/2023 by Koko Santiago MD at OR [facility] N/A: Chest CR BARD : PERIPHERAL VASCULAR 07/27/2024 [id number] / / [id number] Power Port 8fr Sngl Lumen Plas - [id number] Implanted:Qty: 1 on 01/30/2023 by Koko Santiago MD at OR [facility] CR BARD : PERIPHERAL VASCULAR [id number] 07/27/2024 [id number] / / [id number] documented as of this encounter Visit Diagnoses [...] and were consensually agreed upon. Care Teams Demand Planning Manager Relationship Specialty Start Date End Date Mauro Watson DO [address] [place] [address] PCP - General Family Medicine 04/13/19 documented as of this encounter
--- OUTSIDE RECORDS SUMMARY | 2024-02-19 09:28 | External Medical Summary | Summary of Care ---
Author Name Unknown Organization [facility] Address [address] [place] [address] Phone [phone] Care Team Providers Care Product Manager Financial Services Name Role Phone Watson Mauro Leonardogordy Primary Care Provider Reason for Visit * Reason Comments Treatment Encounter Details Date Type Department Care Team (Late st Contact Info) Description 11/14/2023 7:45 AM EDT Office Visit Hematology/Oncology [facility] Contre[facility] [place] [address] [facility] [place] [phone] Lasha Christine MD [address] [facility] [place] [address] Malignant neoplasm of left lung, unspecified part of lung (HCC)*; 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) Allergies Active Allergy Reactions Criticality Noted Date Comments Aspirin Bleeding High 11/26/2011 Significant hemorroidal bleed on aspirin,high doses Duloxetine Hcl Hypertension 01/26/2020 documented as of this encounter (statuses as of 11/14/2023) Medications Medication Sig Dispensed Refills Start Date [...] Oral Tablet (Lopressor)Indicatio ns:HTN, goal below 140/90 TAKE 1/2 TAB BY [...] taking.Reported on 11/05/2023 dexAMETHasone 4 MG Oral TabletIndications:Me tastatic 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 (HCC),Malignant neoplasm of left lung, unspecified part of lung (HCC) One tablet twice a day for 3 days only, starting one day before the chemotherapy. 36 Tablet 1 08/22/2023 Active Folic Acid 1 MG Oral TabletIndications:Me tastatic [...] the morning. 30 Tablet 2 11/05/2023 Active documented as of this encounter (statuses as of 11/14/2023) Active Problems Problem Noted Date Diagnosed Date [...] patient encounter 05/19/2014 Hypertriglyceridemia 05/16/2012 CORON ATHEROSCL [place] CORON VESSEL 07/11/2010 Dyslipidemia, goal LDL [...] as of this encounter (statuses as of 11/14/2023) Resolved Problems Problem Noted Date Diagnosed Date [...] as of this encounter (statuses as of 11/14/2023) Immunizations Name Administration Dates Next Due COVID-19 [...] Sign Reading Time Taken Comments Blood Pressure 122/76 11/14/2023 7:46 AM EDT Pulse 90 11/14/2023 7:46 AM EDT Temperature 36.3 C (97.3 F) 11/14/2023 7:46 AM ED T Respiratory Rate 16 11/14/2023 7:46 AM EDT Oxygen Saturation 94% 11/14/2023 7:46 AM EDT Inhaled Oxygen Concentration - - Weight 75.4 kg (166 lb 4.8 oz) 11/14/2023 7:46 A M EDT Height - - Body [...] Progress Notes * Lasha Christine MD - 11/14/2023 7:45 AM EDT Hematology/Oncology Outpatient Clinic note [facility] [place] [address] [place] [address] Name: Mp Vaughn Date: 09/12/2023 CHIEF COMPLAINT: [...] the recommendation from Dr. Jose Bejarano from [facility] every 21 days x 8 cycles (03/04/23 - 07/29/2023), Discontinued because of disease progression mainly in the liver. CURRENT TREATMENT: Carboplatin AUC 5 and Pemetrexed every 21 days (08/23/23 - ) Decadron as a part of pre-chemotherapy Folic [...] Alimta and carboplatin chemotherapy, so far received 4 cycles of chemotherapy, previously noted upper abdominal [...] sites. He takes nausea and vomiting medication on regular basis, also takes folic acid every day. Past [...] performed by Arik Shin MD at OR [facility] CATHETER OCCLUSION/EMBOLIZATION,GROUNDS SUPERVISOR N/A 09/12/2015 TRANSCATHETER PERMANENT ARTERIAL OCCLUSION CENTRAL NERVOUS SYSTEM performed by Arik Shin MD at OR [facility] COLONOSCOPY W/ LESION REMOVAL, SNARE 09/09/2006 adenomatous polyp--repeat 5 years COLONOSCOPY, DIAGNOSTIC (RECTUM) 08/15/2012 adenomatous polyp, diverticulosis, repeat 5 yrs/COLONOSCOPY FLEXIBLE PROXIMAL DIAGNOSTIC performed by Luciana Fernandez MD at ENDOSCOPY [facility] COLONOSCOPY, DIAGNOSTIC (RECTUM) 11/23/2015 adenomatous polyps, diverticulosis, andiodysplastic lesions, repeat 5 yrs/[facility] COLONOSCOPY, DIAGNOSTIC (RECTUM) 11/28/2015 colonic ulcer, diverticulosis/inpt [facility] COLONOSCOPY, DIAGNOSTIC (RECTUM) 03/29/2021 adenomatous polyps, diverticulosis, repeat 1 yr / COLONOSCOPY FLEXIBLE PROXIMAL DIAGNOSTIC performed by Luciana Fernandez MD at ENDOSCOPY [facility] COLONOSCOPY, DIAGNOSTIC (RECTUM) 05/07/2022 benign adenomatous polyps, repeat 6 mo / COLONOSCOPY FLEXIBLE PROXIMAL DIAGNOSTIC performed by Luciana Fernandez MD at ENDOSCOPY [facility] COLONOSCOPY, DIAGNOSTIC (RECTUM) 11/02/2022 resolving ischemic colitis, repeat 9 mo / COLONOSCOPY FLEXIBLE PROXIMAL DIAGNOSTIC performed by Luciana Fernandez MD at ENDOSCOPY [facility] EGD, FLEXIBLE, DIAGNOSTIC 11/23/2015 reflux esophagitis, Schatzki ring, sm /[facility] EGD, FLEXIBLE, DIAGNOSTIC 01/02/2023 hiatal hernia/gastritis/biopsies show mild gastritits of stomach/ESOPHAGOGASTRODUODENOSCOPY (EGD), FLEXIBLE, TRANSORAL, DIAGNOSTIC performed by Jory Sauceda DO at ENDOSCOPY [facility] EGD, W/ENDOSCOPIC US 01/02/2023 multiple metastatic lesions liver/ESOPHAGOGASTRODUODENOSCOPY (EGD), FLEXIBLE, TRANSORAL, ENDOSCOPICULTRASOUND performed by Jory Sauceda, DO at ENDOSCOPY [facility] HEMORRHOIDECTOMY, INTERNAL, 2 + COLUMNS 06/28/2000 Internal [...] performed by Koko Santiago MD at OR [facility] INSERT ARTERY CATHETER THRU SKIN Right [...] performed by Deep León DO at OR [facility] OPEN FEMORAL ARTERY EXPOSURE FOR ENDOVASCULAR PROSTHESIS, UNILAT Bilateral 06/10/2014 bilateral femoral artery exposure by Dr. Gallegos. OTHER (INFORMATION) ACT [address] CATHETER IN ARTERIES N/A 08/31/2015 CATHETER PLACEMENT, BRACHIOCEPHALIC, THIRD ORDER BRANCH performed by Arik Shin MD at [facility] PLACE CATHETER IN ARTERIES N/A 09/12/2015 CATHETER PLACEMENT, BRACHIOCEPHALIC, THIRD ORDER BRANCH performed by Arik Shin MD at [facility] REMOVE CATARACT, INSERT LENS PROSTH Left 11/08/2020 left EXTRACAPSULAR CATARACT REMOVAL WITH INTRAOCULAR LENS performed by Yuri Bradley MD at [facility] REMOVE CATARACT, INSERT LENS PROSTH Right 11/22/2020 right EXTRACAPSULAR CATARACT REMOVAL WITH INTRAOCULAR LENS performed by Yuri Bradley MD at OR [facility] VERTEBRAL ARTERY CATHETER PLACEMENT Bilateral 08/20/2016 CATHETER PLACEMENT VERTEBRAL ARTERY, performed by Arik Shin MD at OR [facility] Social History Socioeconomic History Marital status: [...] by mouth once daily 90 Tablet 2 Metoprolol Tartrate 25 MG Oral Tablet (Lopressor) TAKE 1/2 TAB BY MOUTH TWICE DAILY 90 Tablet 3 Ondansetron HCl 8 MG Oral Tablet (Zofran) take 1 tablet by mouth every 8 hours if needed for [id number] Tablet 2 Lidocaine-Prilocaine 2.5-2.5 % External Cream [...] taking: Reported on 11/05/2023) 30 Tablet 0 dexAMETHasone 4 MG Oral Tablet One tablet twice a day for 3 days only, starting one day before the chemotherapy. 36 Tablet 1 Folic Acid 1 MG Oral Tablet Take [...] mouth in the morning. 30 Tablet 2 No current facility-administered medications for this visit. REVIEW OF SYSTEMS: See HPI - otherwise negative OBJECTIVE: BP 122/76 (BP Site: Left Arm, BP Position: Sitting, BP Cuff Size: Regular) | Pulse 90 | Temp 36.3 C (97.3 F) (Tympanic) | Resp 16 | Wt 75.4 kg (166 lb 4.8 [...] Grossly intact LABS: Blood workup done on 11/14/2023: -WBC 5300, Hemoglobin and hematocrit -10.3/32, Platelet count 844275 -BUN/Creat: 15/1.0, Calcium 9.7 -AST 52, ALT 23, alkaline phosphatase 173, bilirubin 0.4 -CEA level--> 21,290 IMAGING: MRA of the brain (11/02/2023: Stable [...] 6 mm right lower lobe nodular opacity. IMPRESSION/PLAN: Malignant neoplasm metastatic to liver, unknown [...] is receiving Alimta and carboplatin combination, received 4 cycles of chemotherapy so far, gradual reduction of CEA level around 20,000 range noted, improvement of the liver function test noted, he is feeling well, gained weight by about 10 lb and now stable weight. Previously noted abdominal pain improved, currently not taking opioid medication reviewed with him and his son regarding the follow-up CT scan images, overall good response noted, no progression noted, reviewed blood workup done today, stable blood workup noted other than mild anemia. Will continue Alimta and carboplatin. If he has worsening anemia, will hold carboplatin during that time He will receive additional IV hydration after completion of the chemotherapy. Will see him in about 3 to [address] Lasha Christine Hem/Onc (This note was completed using the dictation program Fluency Direct. As such, there may be misspellings word substitutions, or other variations that should not change the essence of the clinical content of this encounter note. If there is need for further clarification, please direct questions to the provider listed above.) documented in this encounter Nursing Notes * Amy Cornelius, DAYANA ASSIST - 11/14/2023 7:48 AM EDT Patient identifed by name and [...] it for you? ALREADY ACTIVE Filed Vitals: 11/14/23 0746 BP: 122/76 Pulse: 90 Resp: 16 Temp: 36.3 C (97.3 F) TempSrc: Tympanic SpO2: 94% Weight: 75.4 [...] 11:45 AM EDT Imaging Radiology [facility] 1st Floor, [place] [address] [facility] [place] [address] 12/05/2023 9:10 AM EDT Laboratory Laboratory, [facility] [address] [facility] [place] [phone] [facility] [address] [facility] [place] [address] 12/05/2023 9:30 AM EDT Office Visit Interventional Pain Center, [facility] [address] [facility] [place] [address] Leeanna Centeno PA-C [address] [facility] [place] [address] 12/05/2023 9:45 AM EDT Office Visit Hematology/Oncology [facility] [place] [address] [facility] [place] [phone] Lasha Chritsine MD [address] [facility] [place] [address] 12/05/2023 11:00 AM EDT Hem/Onc Treatment Hematology/Oncology Treatment, [place] [address] [place] [phone] Diane, Chair 9 Hem Onc [facility] [address] [facility] [place] [address] 12/17/2023 10:00 AM EDT Appointment Vascular Lab [address] [place] [address] 12/17/2023 10:30 AM EDT Office Visit Vascular [facility] [address] [place] [address] Margarito Cabrera MD [address] [place] [address] 12/26/2023 8:30 AM EDT Laboratory Laboratory [facility] [place] [address] [place] [address] Diane, Lab Scenery [address] [facility] [place] [address] 12/26/2023 9:30 AM EDT Hem/Onc Treatment Hematology/Oncology Treatment, [place] [address] [place] [address] Diane, Chair 1 Hem Onc [facility] [address] [facility] [place] [address] Scheduled Procedures Name Priority Associated Diagnoses Date/Ti [...] this encounter Medical Devices Implanted Type Area Etl Analyst Device Identifier Shelf Expiration Date Model / Serial / Lot Stent Main Body Ermq-28-83-Zt - [id number] Implanted:Qty: 1 on 06/10/2014 by Ronal Gallegos MD at OR [facility] Aorta [employer] 04/07/2016 TFFB-24-8 2-ZT / / Graft Iliac Leg Spirlz 81x63ct - [id number] Implanted:Qty: 1 on 06/10/2014 by Ronal Gallegos MD at OR [facility] Right: Aorta [employer] 10/09/2015 [id number] / / [id number] Description: Graft Iliac Leg Spirlz 49k14da - [id number] Implanted:Qty: 1 on 06/10/2014 by Ronal Gallegos MD at OR [facility] Right: Femoral Artery [employer] 11/07/2016 [id number] / / [id number] Stent Polmer 29mm P3110 - [id number] Implanted:Qty: 1 on 06/10/2014 by Ronal Gallegos MD at OR [facility] N/A: Aorta JNJ : CORDIS ENDOVASCULAR 07/26/2018 [id number] / / [id number] Codman Orbit Galaxy Coil 2.5mm X 3.5cm Implanted:Qty: 1 on 09/12/2015 by Arik Shin MD at OR [facility] Left: Head LENORA & LENORA CODMAN 02/26/2017 [id number] / [id number] / [id number] Description:COMPLEX XTRASOFT detachable coil deployed left internal carotid artery Codman Orbit Galaxy Coil 2.5mm X 2.5cm Implanted:Qty: 1 on 09/12/2015 by Arik Shin MD at OR [facility] Left: Head LENORA & LENORA CODMAN 01/27/2016 [id number] / [id number] / [id number] Description:COMPLEX XTRASOFT detachable coil deployed left internal carotid artery aneurysm Codman Egeg[place] 2 Stent 4mm X 30mm Implanted:Qty: 1 on 09/12/2015 by Arik Shin MD at OR [facility] Left: Head LENORA & LENORA DEPUY 03/26/2018 [id number] / [id number] / [id number] Description:Vascular reconst ruction device deployed in left internal carotid artery Codman Orbit Galaxy Coil 6mm X 20cm Implanted:Qty: 1 on 09/12/2015 by Arik Shin MD at OR [facility] Left: Head LENORA & LENORA CODMAN 09/26/2016 [id number] / [id number] / [id number] Description:COMPLEX FILL det achable coil deployed left internal carotid artery aneurysm Codman Orbit Galaxy Coil 4mm X 10cm Implanted:Qty: 1 on 09/12/2015 by Arik Shin MD at OR [facility] Left: Head LENORA & LENORA CODMAN 10/27/2015 [id number] / [id number] / [id number] Description:COMPLEX XTRASOFT detachable coil deployed left internal carotid artery aneurysm Codman Orbit Galaxy Coil 3.5mm X 9cm Implanted:Qty: 1 on 09/12/2015 by Arik Shin MD at OR [facility] Left: Head LENORA & LENORA CODMAN 12/28/2015 [id number] / [id number] / [id number] Description:COMPLEX XTRASOFT detachable coil deployed left internal carotid artery aneurysm Codman Orbit Galaxy Coil 3mm X 6cm Implanted:Qty: 1 on 09/12/2015 by Arik Shin MD at OR [facility] Left: Head LENORA & LENORA CODMAN 04/28/2017 [id number] / [id number] / [id number] Description:COMPLEX XTRASOFT detachable coil deployed left internal carotid artery aneurysm Lens Intraoc 21.0 - [id number] - [id number] Implanted:Qty: 1 on 11/08/2020 by Yuri Bradley MD at OR [facility] Left: Eye BAUSCH & LOMB 06/26/2025 [id number] / [id number] / [id number] Lens Intraoc 20.5 - [id number] - [id number] Implanted:Qty: 1 on 11/22/2020 by Yuri Bradley MD at [facility] Right: Eye BAUSCH & LOMB 07/27/2025 [id number] / [id number] / [id number] Clip Quick 2.8mm 230cm - [id number] Implanted:Qty: 3 on 03/29/2021 by Luciana Fernandez MD at ENDOSCOPY [facility] [employer] 08/27/2023 HX-202UR. A / / Sureclip 16mm 235cm - [id number] Implanted:Qty: 2 on 05/07/2022 by Luciana Fernandez MD at ENDOSCOPY [facility] Colon MICRO TECH ENDOSCOPY 07/06/2024 [id number] / / Power Port 8fr Sngl Lumen Plas - [id number] Implanted:Qty: 1 on 01/30/2023 by Koko Santiago MD at OR [facility] N/A: Chest CR BARD : PERIPHERAL VASCULAR 07/27/2024 [id number] / / [id number] Power Port 8fr Sngl Lumen Plas - [id number] Implanted:Qty: 1 on 01/30/2023 by Koko Santiago MD at [facility] CR BARD : PERIPHERAL VASCULAR [id number] 07/27/2024 [id number] / / [id number] documented as of this encounter Visit Diagnoses Diagnosis Malignant neoplasm of left lung, unspecified part of lung (HCC)- Primary 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) Secondary malignant neoplasm [...] were consensually agreed upon. Care Teams Product Manager Financial Services Relationship Specialty Start Date End Date Mauro Watson DO [address] [place] [address] PCP - General Family Medicine 04/13/19 documented as of this encounter"
--- OUTSIDE RECORDS SUMMARY | 2024-02-19 09:28 | External Medical Summary ---
Author Name Unknown Address Unknown Organization K09:[facility] [place] [place] [address] Laboratory Report Ordering Provider Test Date Status ANN KLEIN 11/14/2023 07:42:59 Final Observation Date Value Abnormality Reference (Units ) Status WBC, Total 11/14/2023 07:42:59 5.31 4.00-10.8 0 (K/uL) Final RBC 11/14/2023 07:42:59 3.16 4.50-5.25 (M/uL) Final Hemoglobin 11/14/2023 07:42:59 10.3 Below low normal 14 .0-16.8 (g/dL) Final HCT 11/14/2023 07:42:59 32.1 Below low normal 40. 0-48.4 (%) Final MCV 11/14/2023 07:42:59 101.6 82.0-99.5 (fL) Final MCH 11/14/2023 07:42:59 32.6 27.0-34.0 (pg) Final MCHC 11/14/2023 07:42:59 32.1 32.0-36.0 (g/dL) Final RDW 11/14/2023 07:42:59 20.8 11.5-15.5 (%) Final Platelets 11/14/2023 07:42:59 114 Below low normal 140 -400 (K/uL) Final MPV 11/14/2023 07:42:59 11.2 6.6-11.1 ( fL) Final Performing Location [facility] [place] [place] [address]
--- OUTSIDE RECORDS SUMMARY | 2024-02-19 09:28 | External Medical Summary | Summary of Care ---
Author Name Unknown Organization [facility] Address [address] [place] [address] Phone [phone] Care Team Providers Care Supervising Appraiser Name Role Phone Mauro Watson DO Primary Care Provider Reason for Visit * Reason Comments Outpatient Testing Encounter Details Date Type Department Care Team (Latest Contact Info) Description 11/14/2023 7:30 AM EDT Laboratory Laboratory [facility] [address] [place] [phone] [place], Lab Scen[address] [place] [address] Cholangiocarcinoma (HCC); Encounter for antineoplastic chemotherapy; Metastatic [...] EGFR 72 Lumbar radiculopathy 05/27/2019 Atherosclerosis of [place] co ronary artery of [place] heart with angina pectoris 05/05/2019 History of [...] Team (Late st Contact Info) Description 11/14/2023 8:15 AM EDT Hem/Onc Treatment Hematology/Oncology Treatment, [place] [address] [place] [address] [place], Chair 7 Hem Onc Scenery [address] [place] [address] Arrived 11/28/2023 11:45 AM EDT Imaging Radiology [facility] 1st [facility], [place] [address] [facility] [place] [address] 12/05/2023 9:30 AM EDT Office Visit [facility] [address] [place] [address] Leeanna Centeno PA-C [address] [place] [address] 12/17/2023 10:00 AM EDT Appointment Vascular Lab [facility] [address] [place] [address] 12/17/2023 10:30 AM EDT Office Visit Vascular Surg [facility] [address] [place] [address] Margarito Cabrera MD [address] [place] [address] Pending Results Name Type Priority Associated Diagnoses Date /Time CEA Lab STAT Cholangiocarcinoma (HCC) Encounter for antineoplastic chemotherapy 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) Other abnormal tumor markers 11/14/2023 7:42 AM EDT COMPREHENSIVE METABOLIC PANEL Lab STAT Cholangiocarcinoma (HCC) Encounter for antineoplastic chemotherapy 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) Other abnormal tumor markers 11/14/2023 7:42 AM EDT CBC WITH WBC DIFFERENTIAL Lab STAT Cholangiocarcinoma (HCC) Encounter for antineoplastic chemotherapy 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) Other abnormal tumor markers 11/14/2023 7:42 AM EDT CBC Lab STAT Cholangiocarcinoma (HCC) Encounter for antineoplastic chemotherapy 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) Other abnormal tumor markers 11/14/2023 7:42 AM EDT DIFFERENTIAL, AUTOMATED Lab STAT Cholangiocarcinoma (HCC) Encounter for antineoplastic chemotherapy 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) Other abnormal tumor markers 11/14/2023 7:42 AM EDT Scheduled Procedures Name Priority Associated [...] 01/02/2023, 02/21/2022, 02/21/2022, Additional history exists GFR 10/23/2024 2023, 060 09/2023, 09/12/2023, Additional history exists Albumin/Creatinine Ratio 05/17/2025 05/17/2022, 3 DTaP,Tdap,and Td Vaccines (4 - Td or [...] this encounter Medical Devices Implanted Type Area Patient Case Coordinator Device Identifier Shelf Expiration Date Model / Serial / Lot Stent Main Body Imia-52-88-Zt - [id number] Implanted:Qty: 1 on 06/10/2014 by Ronal Gallegos MD at OR [facility] Aorta [employer] 04/07/2016 TFFB-24-8 2-ZT / / Graft Iliac Leg Spirlz [id number] - [id number] Implanted:Qty: 1 on 06/10/2014 by Ronal Gallegos MD at OR [facility] Right: Aorta [employer] 10/09/2015 [id number] / / [id number] Description: Graft Iliac Leg Spirlz 25u94el - [id number] Implanted:Qty: 1 on 06/10/2014 by Ronal Gallegos MD at OR [facility] Right: Femoral Artery [employer] 11/07/2016 [id number] / / [id number] Stent Polmer 29mm P3110 - [id number] Implanted:Qty: 1 on 06/10/2014 by Ronal Gallegos MD at OR [facility] N/A: Aorta JNJ : CORDIS ENDOVASCULAR 07/26/2018 P3110 / / [id number] Codman Orbit Galaxy Coil 2.5mm X 3.5cm Implanted:Qty: 1 on 09/12/2015 by Arik Shin MD at OR [facility] Left: Head LENORA & LENORA CODMAN 02/26/2017 [id number] / [id number] / [id number] Description:COMPLEX XTRASOFT detachable coil deployed left internal carotid artery Codman Orbit Galaxy Coil 2.5mm X 2.5cm Implanted:Qty: 1 on 09/12/2015 by Arik Shin MD at OR [facility] Left: Head LENORA [employer] LENORA CODMAN 01/27/2016 [id number] / [id number] / [id number] Description:COMPLEX XTRASOFT detachable coil deployed left internal carotid artery aneurysm Codman [place] 2 Stent 4mm X 30mm Implanted:Qty: 1 on 09/12/2015 by Arik Shin MD at OR [facility] Left: Head LENORA & LENORA DEPUY 03/26/2018 [id number] / [id number] / [id number] Description:Vascular reconst ruction device deployed in left internal carotid artery Codman Orbit Galaxy Coil 6mm X 20cm Implanted:Qty: 1 on 09/12/2015 by Arik Shin MD at OR [facility] Left: Head LENORA & LENORA CODMAN 09/26/2016 [id number] / [id number] / [id number] Description:COMPLEX FILL det achable coil deployed left internal carotid artery aneurysm Codman Orbit Galaxy Coil 4mm X 10cm Implanted:Qty: 1 on 09/12/2015 by Arik Shin MD at OR [facility] Left: Head LENORA & LENORA CODMAN 10/27/2015 [id number] / [id number] / [id number] Description:COMPLEX XTRASOFT detachable coil deployed left internal carotid artery aneurysm Codman Orbit Galaxy Coil 3.5mm X 9cm Implanted:Qty: 1 on 09/12/2015 by Arik Shin MD at OR [facility] Left: Head LENORA [employer] LENORA CODMAN 12/28/2015 [id number] / [id number] / [id number] Description:COMPLEX XTRASOFT detachable coil deployed left internal carotid artery aneurysm Codman Orbit Galaxy Coil 3mm X 6cm Implanted:Qty: 1 on 09/12/2015 by Arik Shin MD at OR [facility] Left: Head LENORA & LENORA CODMAN 04/28/2017 [id number] / [id number] / [id number] Description:COMPLEX XTRASOFT detachable coil deployed left internal carotid artery aneurysm Lens Intraoc 21.0 - [id number] - [id number] Implanted:Qty: 1 on 11/08/2020 by Yuri Bradley MD at OR [facility] Left: Eye BAUSCH & LOMB 06/26/2025 [id number] / [id number] / [id number] Lens Intraoc 20.5 - [id number] - [id number] Implanted:Qty: 1 on 11/22/2020 by Yuri Bradley MD at OR [facility] Right: Eye BAUSCH & LOMB 07/27/2025 [id number] / [id number] / [id number] Clip Quick 2.8mm 230cm - [id number] Implanted:Qty: 3 on 03/29/2021 by Luciana Fernandez MD at ENDOSCOPY [facility] [employer] 08/27/2023 HX-202UR. A / / Sureclip 16mm 235cm - [id number] Implanted:Qty: 2 on 05/07/2022 by Luciana Fernandez MD at ENDOSCOPY [facility] Colon MICRO TECH ENDOSCOPY 07/06/2024 [id number] / / Power Port 8fr Sngl Lumen Plas - [id number] Implanted:Qty: 1 on 01/30/2023 by Koko Santiago MD at OR [facility] N/A: Chest CR BARD : PERIPHERAL VASCULAR 07/27/2024 [id number] / / [id number] Power Port 8fr Sngl Lumen Plas - [id number] Implanted:Qty: 1 on 01/30/2023 by Koko Santiago MD at OR [facility] CR BARD : PERIPHERAL VASCULAR [id number] 07/27/2024 [id number] / / [id number] documented as of this encounter Visit Diagnoses [...] and were consensually agreed upon. Care Teams Supervising Appraiser Relationship Specialty Start Date End Date Mauro Watson DO [address] [place] [address] PCP - General Family Medicine 04/13/19 documented as of this encounter
--- OUTSIDE RECORDS SUMMARY | 2024-02-19 09:28 | External Medical Summary | Summary of Care ---
Author Name Unknown Organization [facility] Address [address] [place] [address] Phone [phone] Care Team Providers Care Manager Qa Name Role Phone Mauro Watson DO Primary [...] CT FOSAPREPITANT INJECTION Lasha Christine MD [address] [place] [address] Anc Hem/Onc [address] [address] Referral ID Status Reason Start Date Expiration Date V isits Requested Visits Authorized [id number] Authorized 08/22/2023 04/28/2099 999 99 Encounter Details Date Type Department Care Team (Latest Contact Info) Description 11/14/2023 8:15 AM EDT Hem/Onc Treatment Hematology/Oncolog y Treatment, [address] [address] Diane, Chair 7 Hem Onc [address] [place] [address] Encounter for antineoplastic chemotherapy*; Metastatic carcinoma involving [...] EGFR 72 Lumbar radiculopathy 05/27/2019 Atherosclerosis of [place] co ronary artery of [place] heart with angina pectoris 05/05/2019 History of colon polyps 08/12/2018 ACEI/ARB contraindicated 09/21/2016 Carotid aneurysm, left 09/13/2015 Overview: S/p coil embolization Cerebral aneurysm, nonruptured 09/05/2015 AAA (abdominal aortic aneurysm) 06/20/2015 Overview: S/p repair Bilateral carotid artery disease 06/20/2015 Medical home patient encounter 05/19/2014 Hypertriglyceridemia 05/16/2012 CORON ATHEROSCL [place] CORON VESSEL 07/11/2010 Dyslipidemia, goal LDL below [...] Description 11/28/2023 11:45 AM EDT Imaging Radiology [facility] [address] [facility] [place] [address] 12/05/2023 9:10 AM EDT Laboratory Laboratory, [address] [place] [id number] [facility] [address] [place] [address] 12/05/2023 9:30 AM EDT Office Visit Interventional Pain Center, [facility] [address] [facility] [place] [address] Leeanna Centeno [facility]C [facility] [address] 12/05/2023 9:45 AM EDT Office Visit Hematology/Oncology [facility] [place] [address] [facility] [place] [phone] Lasha Christine MD [address] [place] [address] [place] [address] 12/05/2023 11:00 AM EDT Hem/Onc Treatment Hematology/Oncology Treatment, [place] [address] [place] [phone] Diane, Chair 9 Hem Onc [address] [place] [address] 12/17/2023 10:00 AM EDT Appointment Vascular Lab [address] [address] 12/17/2023 10:30 AM EDT Office Visit Vascular Surg [address] [address] Mragarito Cabrera MD [address] [place] [address] 12/26/2023 8:30 AM EDT Laboratory Laboratory Scenery [facility] [address] [place] [address] [place], Lab Scenery [address] [facility] [place] [address] 12/26/2023 9:30 AM EDT Hem/Onc Treatment Hematology/Oncology Treatment, [place] [address] [place] [address] Diane, Chair 1 Hem Onc Scenery [address] [place] [address] Scheduled Procedures Name Priority Associated Diagnoses Date/Ti [...] this encounter Medical Devices Implanted Type Area Shelter Advocate Device Identifier Shelf Expiration Date Model / Serial / Lot Stent Main Body Noka-06-00-Zt - [id number] Implanted:Qty: 1 on 06/10/2014 [place] [facility] [place] Aorta [employer] 04/07/2016 TFFB-24-8 2-ZT / / Graft Iliac Leg Spirlz [id number] - [id number] Implanted:Qty: 1 on 06/10/2014 by Ronal Gal[place] [facility] [place]: Aorta [employer] 10/09/2015 [id number] / / [id number] Description: Graft Iliac Leg Spirlz [id number] - [id number] Implanted:Qty: 1 on 06/10/2014 by Ronal Gal[place] [facility] [place]: Femoral Artery [employer] 11/07/2016 [id number] / / [id number] Stent Polmer 29mm P3110 - [id number] Implanted:Qty: 1 on 06/10/2014 by Ronal Gal[place] [facility] [place]/A: Aorta JNJ : CORDIS ENDOVASCULAR 07/26/2018 [id number] / / [id number] Codman Orbit Galaxy Coil 2.5mm X 3.5cm Implanted:Qty: 1 on 09/12/2015 by Arik Shin [place] [facility] [place]: Head LENORA [employer] LENORA CODMAN 02/26/2017 [id number] / [id number] / [id number] Description:COMPLEX XTRASOFT detachable coil deployed left internal carotid artery Codman Orbit Galaxy Coil 2.5mm X 2.5cm Implanted:Qty: 1 on 09/12/2015 by Arik Shin [place] [facility] [place]: Head LENORA [employer] LENORA CODMAN 01/27/2016 [id number] / [id number] / [id number] Description:COMPLEX XTRASOFT detachable coil deployed left internal carotid artery aneurysm Codman Elma 2 Stent 4mm X 30mm Implanted:Qty: 1 on 09/12/2015 by Arik Shin [place] [facility] [place]: Head LENORA & LENORA DEPUY 03/26/2018 [id number] / [id number] / [id number] Description:Vascular reconst ruction device deployed in left internal carotid artery Codman Orbit Galaxy Coil 6mm X 20cm Implanted:Qty: 1 on 09/12/2015 by Arik Shin [place] [facility] [place]: Head LENORA & LENORA [facility] 09/26/2016 [id number] / [id number] / [id number] Description:COMPLEX FILL det achable coil deployed left internal carotid artery aneurysm Codman Orbit Galaxy Coil 4mm X 10cm Implanted:Qty: 1 on 09/12/2015 by Arik Shin [place] [facility] [place]: Head LENORA & LENORA [facility] 10/27/2015 [id number] / [id number] / [id number] Description:COMPLEX XTRASOFT detachable coil deployed left internal carotid artery aneurysm Codman Orbit Galaxy Coil 3.5mm X 9cm Implanted:Qty: 1 on 09/12/2015 by Arik Shin [place] [facility] [place]: Head LENORA [employer] LENORA CODMAN 12/28/2015 [id number] / [id number] / [id number] Description:COMPLEX XTRASOFT detachable coil deployed left internal carotid artery aneurysm Codman Orbit Galaxy Coil 3mm X 6cm Implanted:Qty: 1 on 09/12/2015 by Arik Shin [place] [facility] [place]: Head LENORA [employer] LENORA CODMAN 04/28/2017 [id number] / [id number] / [id number] Description:COMPLEX XTRASOFT detachable coil deployed left internal carotid artery aneurysm Lens Intraoc 21.0 - [id number] - [id number] Implanted:Qty: 1 on 11/08/2020 by Yuri Bradley MD at OR [facility] Left: Eye BAUSCH & LOMB 06/26/2025 [id number] / [id number] / [id number] Lens Intraoc 20.5 - [id number] - [id number] Implanted:Qty: 1 on 11/22/2020 by Yuri Bradley MD at OR [facility] Right: Eye BAUSCH & LOMB 07/27/2025 [id number] / [id number] Clip Quick 2.8mm 230cm - [id number] Implanted:Qty: 3 on 03/29/2021 by Luciana Fernandez MD at ENDOSCOPY [facility] [employer] 08/27/2023 HX-202UR. A / / Sureclip 16mm 235cm - [id number] Implanted:Qty: 2 on 05/07/2022 by Luciana Fernandez MD at ENDOSCOPY [facility] Colon MICRO TECH ENDOSCOPY 07/06/2024 [id number] / / Power Port 8fr Sngl Lumen Plas - [id number] Implanted:Qty: 1 on 01/30/2023 by Koko Santiago MD at OR [facility] N/A: Chest CR BARD : PERIPHERAL VASCULAR 07/27/2024 [id number] / / [id number] Power Port 8fr Sngl Lumen Plas - [id number] Implanted:Qty: 1 on 01/30/2023 by Koko Santiago MD at OR [facility] CR BARD : PERIPHERAL VASCULAR [id number] 07/27/2024 [id number] / / [id number] documented as of this encounter Visit Diagnoses [...] ONCE PRN Other, Hypersensitivity Reaction, Starting on Sat11/14/23 at 0822, Until Sat11/15/23 at 0821, For 24 hours EPINEPHrine 1 MG/ML inj 0.3 mg 0.3 mg, Intramuscular, ONCE PRN Other, Hypersensitivity Reaction or Anaphylaxis, Starting on Sat11/14/23 at 0822, Until Sat11/15/23 at 0821, For 24 hours hEParin 100 UNIT/ML Lock Flush inj 500 Units 500 Units (5 mL), IV Lock, PRN Other, IV Flush, Starting on Sat11/14/23 at 0822, Until Sat11/15/23 at 0821, For 24 hours, Do not flush if lock, PICC, or central line not in place; IV infusing or unable to flush. Given 11/14/2023 1:18 PM EDT 500 Units Hydrocortisone Sod Suc (PF) (Solu-Cortef) inj 100 mg 100 mg, IV Push, ONCE PRN Other, Hypersensitivity Reaction, Starting on Sat11/14/23 at 0822, Until Sat11/15/23 at 0821, For 24 hours LORAzepam (Ativan) tab 0.5 mg 0.5 mg, Oral, ONCE PRN Anxiety, Nausea, Starting on Sat11/14/23 at 0930, Until Discontinued NSS infusion Intravenous, at 50 mL/hr, PRN, Starting on Sat11/14/23 at 0930, Until Discontinued, Maintenance line Restarted 11/14/2023 11:12 AM EDT 50 mL/hr Start Infusion 11/14/2023 8:35 AM EDT 50 mL/hr oxygen GAS Inhalation, OXYGEN, First dose on Lizz 11/14/23 at 0900, Until Discontinued, Device/Managed by: Low Flow Device, [...] Push, PRN Other, IV Flush, Starting on Sat11/14/23 at 0822, Until Sat11/15/23 at 0821, For 24 hours, Do not flush if lock, PICC, or central line not in place; IV infusing or unable to flush. Given 11/14/2023 1:18 PM EDT 10 mL Inactive Administered Medications [...] calculating AUC dose), ONCE, 1 dose, On Sat11/14/23 at 0930 Start Infusion 11/14/2023 10:33 AM EDT 454 mg 510 mL/hr Fosaprepitant Dimeglumine (Emend) 150 mg, ondansetron (Zofran) 16 mg, dexamethasone sodium phosphate 12 mg in NSS 250 mL Infusion 150 mg, IV Piggyback, ONCE, 1 dose, On Sat11/14/23 at 0930, Administer over 30 Minutes, Give 30 minutes prior to chemotherapy. Infuse over 30 minutes. Start Infusion 11/14/2023 8:36 AM EDT 150 mg 538.4 mL/hr NSS infusion FOR HYDRATION Intravenous, at 500 mL/hr Administer over 2 Hours, ONCE, 1 dose, On Sat11/14/23 at 0900 Start Infusion 11/14/2023 11:11 AM EDT 1,000 mL 500 mL/hr PEMEtrexed Disodium (Alimta) 900 mg in NSS 100 mL infusion 900 mg (rounded from 925 mg = 500 mg/m2 1.85 m2 Treatment Plan BSA from Recorded weight), IV Piggyback, ONCE, 1 dose, On Sat11/14/23 at 1000, Administer over 10 Minutes Start Infusion 11/14/2023 9:15 AM EDT 900 mg 630 mL/hr documented [...] and were consensually agreed upon. Care Teams Manager Qa Relationship Specialty Start Date End Date Mauro Watson DO [address] [place] [address] PCP - General Family Medicine 04/13/19 documented as of this encounter
--- OUTSIDE RECORDS SUMMARY | 2024-02-19 09:28 | External Medical Summary | Summary of Care ---
Author Name Unknown Organization [facility] Address [address] [place] [address] Phone [phone] Care Team Providers Care Dexigraph Operator Name Role Phone Mauro Watson DO Primary Care Provider Reason for Visit * Reason Comments Chemotherapy Alimta/Carboplatin. * Episode Based Medications (Routine) - Authorized Specialty Diagnoses / Procedures Referred By Edmund t Referred To Contact Diagnoses Encounter for antineoplastic chemotherapy 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) Malignant neoplasm of left lung, unspecified part of lung (HCC) Procedures VT INJ. PEMETREXED NOS 10MG [place] CARBOPLATIN INJECTION [place] FOSAPREPITANT INJECTION Lasha Christine MD [address] [facility] [place] [address] Anc Hem/Onc [address] [address] Referral ID Status Reason Start Date Expiration Date V isits Requested Visits Authorized [id number] Authorized 08/22/2023 04/28/2099 999 99 Encounter Details Date Type Department Care Team (Latest Contact Info) Description 10/04/2023 9:45 AM EDT Hem/Onc Treatment Hematology/Oncolog y Treatment, [address] [address] Diane Chair 11 Hem On[address] [place] [address] Encounter for antineoplastic chemotherapy*; 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 01/21/2023 Encounter for antineoplastic chemotherapy 2022 Medical marijuana use 08/26/2021 CKD (chronic kidney disease), stage II 2 Overview: EGFR 72 Lumbar radiculopathy 05/27/2019 Atherosclerosis of [place] co ronary artery of [place] heart with angina pectoris 05/05/2019 History of colon polyps 08/12/2018 ACEI/ARB contraindicated 09/21/2016 Carotid aneurysm, left 09/13/2015 Overview: S/p coil embolization Cerebral aneurysm, nonruptured 09/05/2015 AAA (abdominal aortic aneurysm) 06/20/2015 Overview: S/p repair Bilateral carotid artery disease 06/20/2015 Medical home patient encounter 05/19/2014 Hypertriglyceridemia 05/16/2012 CORON ATHEROSCL [place] CORON VESSEL 07/11/2010 Dyslipidemia, goal LDL below [...] as of this encounter (statuses as of 11/07/2023) Resolved Problems Problem Noted Date Diagnosed Date [...] as of this encounter (statuses as of 11/07/2023) Immunizations Name Administration Dates Next Due COVID-19 [...] money to get more. Never true 05/21/2022 Sex and Gender Information Value Date Recorded [...] as of this encounter Nursing Notes * Angela Li RN - 10/04/2023 2:37 PM EDT Goals: Patient will remain free from injury. Possible barriers to meeting goals: Fall risk d/t ambulation with IV pole. Stability of the patient: Moderately stable - low risk of patient condition declining or worsening Summary regarding today's goals: Met: Patient remained free of injury.. Patient tolerated infusion well. Discharged in stable condition. * Angela Li RN - 10/04/2023 9:53 AM EDT Chair 10. Patient arrived for [facility]/carboplatin infusion. Patient was seen by Dr. Christine (see office notes). Per Dr. Christine ok for treatment today. Going to add in 1 liter of NSS over 2 hours today. VAD accessed without issues. Chemotherapy/Immunotherapy agents: ALIMTA and CARBOPLATIN Consent for chemotherapy drug treatment complete, dated, and signed? yes, date - 08/22/23 Treatment lab parameters met? Yes Has treatment weight changed > than 10%? No Treatment preauthorized? Yes VITALS Filed Vitals: Urine protein: N/A Patient education completed for [...] Care Team (Late st Contact Info) Description 11/11/2023 10:00 AM EDT Imaging Radiology [facility] [address] 11/12/2023 2:30 PM EDT Telemedicine Neurosurgery, [place] [address] [place] [address] Dashawn Haines MD [address] [place] [facility] [address] 11/14/2023 7:30 AM EDT Laboratory Laboratory Scenery [facility] [address] [place] [address] [facility] Scenery [address] [place] [address] 11/14/2023 7:45 AM EDT Office Visit Hematology/Oncology [facility] [address] [place] [phone] Lasha Christine MD [address] [place] [address] 11/14/2023 8:15 AM EDT Hem/Onc Treatment Hematology/Oncology Treatment, [place] [address] [place] [phone] Diane, Chair 7 Hem Onc Scene 200 [facility] [place] [address] 11/28/2023 11:45 AM EDT Imaging Radiology [facility] [place] [address] 12/05/2023 9:30 AM EDT Office Visit Interventional Pain Center, [facility] [address] [facility] [place] [address] Leeanna Centeno PA-C [facility] [place] [address] 12/17/2023 10:00 AM EDT Appointment Vascular Lab [facility] [address] [place] [address] 12/17/2023 10:30 AM EDT Office Visit Vascular Surg [facility] [address] [place] [address] Margarito Cabrera MD [address] [place] [address] Scheduled Procedures Name Priority Associated Diagnoses Date/Ti [...] 02/21/2022, Additional history exists GFR 10/23/2024 2023, 06/0 09/2023, 09/12/2023, Additional history exists Albumin/Creatinine Ratio 05/17/2025 05/17/2022, /3 DTaP,Tdap,and Td Vaccines (4 - Td or [...] this encounter Medical Devices Implanted Type Area Shared Services Representative Device Identifier Shelf Expiration Date Model / Serial / Lot Stent Main Body Nnbt-58-53-Zt - [id number] Implanted:Qty: 1 on 06/10/2014 by Ronal Gallegos MD [place] [facility] [place] Aorta [employer] 04/07/2016 TFFB-24-8 2-ZT / / Graft Iliac Leg Spirlz 43q42fi - [id number] Implanted:Qty: 1 on 06/10/2014 by Ronal Gallegos MD at [place] [facility] [place] Right: Aorta [employer] 10/09/2015 [id number] / / [id number] Description: Graft Iliac Leg Spirlz 97r07fy - [id number] Implanted:Qty: 1 on 06/10/2014 by Ronal Gallegos MD at [place] [facility] [place] Right: Femoral Artery [employer] 11/07/2016 [id number] / / [id number] Stent Polmer 29mm P3110 - [id number] Implanted:Qty: 1 on 06/10/2014 by Ronal Gallegos MD at [place] [facility] [place] N/A: Aorta JNJ : CORDIS ENDOVASCULAR 07/26/2018 P3110 / / [id number] Codman Orbit Galaxy Coil 2.5mm X 3.5cm Implanted:Qty: 1 on 09/12/2015 by Arik Shin MD at [place] [facility] [place] Left: Head LENORA [employer] LENORA [facility] 02/26/2017 [id number] / [id number] / [id number] Description:COMPLEX XTRASOFT detachable coil deployed left internal carotid artery Codman Orbit Galaxy Coil 2.5mm X 2.5cm Implanted:Qty: 1 on 09/12/2015 by Arik Shin MD at [place] [facility] [place] Left: Head LENORA [employer] LENORA [employer]MAN 01/27/2016 [id number] / [id number] / [id number] Description:COMPLEX XTRASOFT detachable coil deployed left internal carotid artery aneurysm Codman Habematolel 2 Stent 4mm X 30mm Implanted:Qty: 1 on 09/12/2015 by Arik Shin MD at [place] [facility] Left: Head LENORA [employer] LENORA DEPUY 03/26/2018 [id number] / [id number] / [id number] Description:Vascular reconst ruction device deployed in left internal carotid artery Codman Orbit Galaxy Coil 6mm X 20cm Implanted:Qty: 1 on 09/12/2015 by Arik Shin MD at [place] [facility] Left: Head LENORA [employer] LENORA C[employer]MAN 09/26/2016 [id number] / [id number] / [id number] Description:COMPLEX FILL det achable coil deployed left internal carotid artery aneurysm Codman Orbit Galaxy Coil 4mm X 10cm Implanted:Qty: 1 on 09/12/2015 by Arik Shin MD at [place] [facility] Left: Head LENOAR & LENORA CODMAN 10/27/2015 [id number] / [id number] / [id number] Description:COMPLEX XTRASOFT detachable coil deployed left internal carotid artery aneurysm Codman Orbit Galaxy Coil 3.5mm X 9cm Implanted:Qty: 1 on 09/12/2015 by Arik Shin MD at [place] [facility] Left: Head LENORA [employer] LENORA CODMAN 12/28/2015 [id number] / [id number] / [id number] Description:COMPLEX XTRASOFT detachable coil deployed left internal carotid artery aneurysm Codman Orbit Galaxy Coil 3mm X 6cm Implanted:Qty: 1 on 09/12/2015 by Arik Shin MD at [place] [facility] Left: Head LENORA & LENORA CODMAN 04/28/2017 [id number] / [id number] / [id number] Description:COMPLEX XTRASOFT detachable coil deployed left internal carotid artery aneurysm Lens Intraoc 21.0 - [id number] - [id number] Implanted:Qty: 1 on 11/08/2020 by Yuri Bradley MD at OR [facility] Left: Eye BAUSCH & LOMB 06/26/2025 [id number] / [id number] / [id number] Lens Intraoc 20.5 - [id number] - [id number] Implanted:Qty: 1 on 11/22/2020 by Yuri Bradley MD at OR [facility] Right: Eye BAUSCH & LOMB 07/27/2025 [id number] / [id number] / [id number] Clip Quick 2.8mm 230cm - [id number] Implanted:Qty: 3 on 03/29/2021 by Luciana Fernandez MD at ENDOSCOPY [facility] [employer] 08/27/2023 HX-202UR. A / / Sureclip 16mm 235cm - [id number] Implanted:Qty: 2 on 05/07/2022 by Luciana Fernandez MD at ENDOSCOPY [facility] Colon MICRO TECH ENDOSCOPY 07/06/2024 [id number] / / Power Port 8fr Sngl Lumen Plas - [id number] Implanted:Qty: 1 on 01/30/2023 by Koko Santiago MD at OR [facility] N/A: Chest CR BARD : PERIPHERAL VASCULAR 07/27/2024 [id number] / / [id number] Power Port 8fr Sngl Lumen Plas - [id number] Implanted:Qty: 1 on 01/30/2023 by Koko Santiago MD at OR [facility] CR BARD : PERIPHERAL VASCULAR [id number] 07/27/2024 [id number] / / [id number] documented as of this encounter Visit Diagnoses Diagnosis Encounter for antineoplastic chemotherapy- Primary 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 (Max Creatinine Clearance at 125 ml/min for calculating AUC dose), ONCE, 1 dose, On Sat10/04/23 at 1045 Start Infusion 10/04/2023 11:35 AM EDT 459 mg 510 mL/hr Fosaprepitant Dimeglumine (Emend) 150 mg, ondansetron (Zofran) 16 mg, dexamethasone sodium phosphate 12 mg in NSS 250 mL Infusion 150 mg, IV Piggyback, ONCE, 1 dose, On Sat10/04/23 at 1045, Administer over 30 Minutes, Give 30 minutes prior to chemotherapy. Infuse over 30 minutes. Start Infusion 10/04/2023 10:08 AM EDT 150 mg 538.4 mL/hr hEParin 100 UNIT/ML Lock Flush inj 500 Units 500 Units (5 mL), IV Lock, PRN Other, IV Flush, Starting on Sat10/04/23 at 0937, Until Sat10/04/23 at 1839, For 24 hours, Do not flush if lock, PICC, or central line not in place; IV infusing or unable to flush. Given 10/04/2023 2:28 PM EDT 500 Units NSS infusion FOR HYDRATION Intravenous, at 500 mL/hr Administer over 2 Hours, ONCE, 1 dose, On Sat10/04/23 at 1245 Start Infusion 10/04/2023 12:32 PM EDT 1,000 mL 500 mL/hr NSS infusion Intravenous, at 50 mL/hr, PRN, Starting on Sat10/04/23 at 1045, Until Sat10/04/23 at 1839, Maintenance line Start Infusion 10/04/2023 9:46 AM EDT 50 mL/hr PEMEtrexed Disodium (Alimta) 900 mg in NSS 100 mL infusion 900 mg (rounded from 925 mg = 500 mg/m2 1.85 m2 Treatment Plan BSA from Recorded weight), IV Piggyback, ONCE, 1 dose, On Sat10/04/23 at 1030, Administer over 10 Minutes Start Infusion 10/04/2023 10:46 AM EDT 900 mg 630 mL/hr sodium chloride 0.9 % flush central line 10 mL 10 mL, IV Push, PRN Other, IV Flush, Starting on Sat10/04/23 at 0937, Until Sat10/04/23 at 1839, For 24 hours, Do not flush if lock, PICC, or central line not in place; IV infusing or unable to flush. Given 10/04/2023 2:28 PM EDT 10 mL vitamin b-12 (Cyanocobalamin) inj 1,000 mcg 1,000 mcg, Intramuscular, ONCE, On Sat10/04/23 at 1215, For 1 dose Given 10/04/2023 11:35 AM EDT 1,000 mcg Arm Right Upper documented in this encounter Advance [...] and were consensually agreed upon. Care Teams Dexigraph Operator Relationship Specialty Start Date End Date Mauro Watson DO [address] [place] [address] PCP - General Family Medicine 04/13/19 documented as of this encounter
--- OUTSIDE RECORDS SUMMARY | 2024-02-19 09:28 | External Medical Summary ---
Author Name Unknown Address Unknown Organization K01:[facility] [address] [place] [address] Laboratory Report Ordering Provider Test Date Status ANN KLEIN 11/14/2023 07:42:59 Final Observation Date Value Abnormality Reference (Units ) Status CEA 11/14/2023 07:42:59 61581.0 Above high normal <= 5.2 (ng/mL) Final Performing Location [facility] [address] [place] [address]
--- OUTSIDE RECORDS SUMMARY | 2024-02-19 09:28 | External Medical Summary ---
Author Name Unknown Address Unknown Organization K09:[facility] [place] [address] Laboratory Report Ordering Provider Test Date Status ANN KLEIN 11/14/2023 07:42:59 Final Observation Date Value Abnormality Reference (Units ) Status SYNC LEUKOCYTES IN BLOOD BY AUTOMATED COUNT 11/14/2023 07:42:59 5.31 4.00-10.80 (K/uL) Final Neutrophils/100 leukocytes in Blood by Manual count 11/14/2023 07:42:59 73.0 40.0-75.0 (%) Final Lymphocytes/100 leukocytes in Blood by Manual count 11/14/2023 07:42:59 16.0 Below low normal 18.0-42.0 (%) Final Monocytes/100 leukocytes in Blood by Manual count 11/14/2023 07:42:59 8.0 1.0-11.0 (%) Final Basophils/100 leukocytes in Blood by Manual count 11/14/2023 07:42:59 1.0 0.0-2.0 (%) Final Metamyelocytes/100 leukocytes in Blood by Manual count 11/14/2023 07:42:59 2.0 Above high normal <=0.0 (%) Final Neutrophils [#/volume] in Blood by Manual count 11/14/2023 07:42:59 3.88 1.80-7.70 (K/uL) Final Lymphocytes [#/volume] in Blood by Manual count 11/14/2023 07:42:59 0.85 Below low normal 1.00-4.80 (K/uL) Final Monocytes [#/volume] in Blood by Manual count 11/14/2023 07:42:59 0.42 0.00-1.10 (K/uL) Final Basophils [#/volume] in Blood by Manual count 11/14/2023 07:42:59 0.05 0.00-0.20 (K/uL) Final Metamyelocytes [#/volume] in Blood by Manual count 11/14/2023 07:42:59 0.11 Above high normal <=0.00 (K/uL) Final Nucleated erythrocytes/100 leukocytes [Ratio] in Blood by Automated count 11/14/2023 07:42:59 Final Performing Location [facility] [address] [place] [address]
--- OUTSIDE RECORDS SUMMARY | 2024-02-19 09:28 | External Medical Summary | Summary of Care ---
Author Name Unknown Organization [facility] Address [address] [place] [address] Phone [phone] Care Team Providers Care Machine Repair Person Name Role Phone Mauro Watson DO Primary [...] RI FOSAPREPITANT INJECTION Lasha Christine MD 200 [facility] [place] [address] Anc Hem/Onc [address] [address] Referral ID Status Reason Start Date Expiration Date V isits Requested Visits Authorized [id number] Authorized 08/22/2023 04/28/2099 999 [id number] Encounter Details Date Type Department Care Team (Latest Contact Info) Description 10/04/2023 9:45 AM EDT Hem/Onc Treatment Hematology/Oncolog y Treatment, [address] [phone] Diane Chair 11 Hem Onc [address] [place] [address] Encounter for antineoplastic chemotherapy*; Metastatic carcinoma involving [...] AM EDT Chair 10. Patient arrived for [facility]/carboplatin infusion. Patient was seen by Dr. Christine [...] Description 11/11/2023 10:00 AM EDT Imaging Radiology [facility] [address] 11/12/2023 2:30 PM EDT Telemedicine Neurosurgery, [place] [address] [place] [address] Dashawn Haines MD [address] [place] [facility] [place] [address] 11/14/2023 7:30 AM EDT Laboratory Laboratory Scenery [facility] [address] [place] [address] [facility] [address] [place] [address] 11/14/2023 7:45 AM EDT Office Visit Hematology/Oncology [facility] [address] [place] [phone] Lasha Christine MD [address] [place] [address] 11/14/2023 8:15 AM EDT Hem/Onc Treatment Hematology/Oncology Treatment, [place] [address] [place] [phone] Diane, Chair 7 Hem Onc Scene 200 [facility] [place] [address] 11/28/2023 11:45 AM EDT Imaging Radiology [facility] [place] [address] 12/05/2023 9:30 AM EDT Office Visit Interventional Pain Center, [facility] [address] [facility] [place] [address] Leeanna Centeno PA-C [facility] [place] [address] 12/17/2023 10:00 AM EDT Appointment Vascular Lab [facility] [address] [place] [address] 12/17/2023 10:30 AM EDT Office Visit Vascular Surg [facility] [address] [place] [address] Margarito Cabrera MD [address] [place] [address] Scheduled Procedures Name Priority Associated Diagnoses Date/Ti [...] this encounter Medical Devices Implanted Type Area Contract Associate Device Identifier Shelf Expiration Date Model / Serial / Lot Stent Main Body Mqio-22-21-Zt - [id number] Implanted:Qty: 1 on 06/10/2014 by Ronal Gallegos MD at OR [facility] Aorta [employer] GROUP 04/07/2016 TFFB-24-8 2-ZT / / Graft Iliac Leg Spirlz 02k87bq - [id number] Implanted:Qty: 1 on 06/10/2014 by Ronal Gallegos MD at OR [facility] Right: Aorta [employer] 10/09/2015 [id number] / / [id number] Description: Graft Iliac Leg Spirlz 21i66td - [id number] Implanted:Qty: 1 on 06/10/2014 by Ronal Gallegos MD at OR [facility] Right: Femoral Artery [employer] 11/07/2016 [id number] / / [id number] Stent Polmer 29mm P3110 - [id number] Implanted:Qty: 1 on 06/10/2014 by Ronal Gallegos MD at OR [facility] N/A: Aorta JNJ : CORDIS ENDOVASCULAR 07/26/2018 P3110 / / [id number] Codman Orbit Galaxy Coil 2.5mm X 3.5cm Implanted:Qty: 1 on 09/12/2015 by Arik Shin MD at OR [facility] Left: Head LENORA & LENORA [facility] 02/26/2017 [id number] / [id number] / [id number] Description:COMPLEX XTRASOFT detachable coil deployed left internal carotid artery Codman Orbit Galaxy Coil 2.5mm X 2.5cm Implanted:Qty: 1 on 09/12/2015 by Arik Shin MD at OR [facility] Left: Head LENORA & LENORA CODMAN 01/27/2016 [id number] / [id number] / [id number] Description:COMPLEX XTRASOFT detachable coil deployed left internal carotid artery aneurysm Codman [place] 2 Stent 4mm X 30mm Implanted:Qty: 1 on 09/12/2015 by Arik Shin MD at OR [facility] Left: Head LENORA & LENORA DEPUY 03/26/2018 [id number] / [id number] / [id number] Description:Vascular reconst ruction device deployed in left internal carotid artery Codman Orbit Galaxy Coil 6mm X 20cm Implanted:Qty: 1 on 09/12/2015 by Arik Shin MD at OR [facility] Left: Head LENORA & LENORA CODMAN 09/26/2016 [id number] / [id number] / [id number] Description:COMPLEX FILL det achable coil deployed left internal carotid artery aneurysm Codman Orbit Galaxy Coil 4mm X 10cm Implanted:Qty: 1 on 09/12/2015 by Arik Shin MD at OR [facility] Left: Head LENORA & LENORA CODMAN 10/27/2015 [id number] / [id number] / [id number] Description:COMPLEX XTRASOFT detachable coil deployed left internal carotid artery aneurysm Codman Orbit Galaxy Coil 3.5mm X 9cm Implanted:Qty: 1 on 09/12/2015 by Arik Shin MD at OR [facility] Left: Head LENORA & LENORA CODMAN 12/28/2015 [id number] / [id number] / [id number] Description:COMPLEX XTRASOFT detachable coil deployed left internal carotid artery aneurysm Codman Orbit Galaxy Coil 3mm X 6cm Implanted:Qty: 1 on 09/12/2015 by Arik Shin MD at OR [facility] Left: Head LENORA & LENORA CODMAN 04/28/2017 [id number] / [id number] / [id number] Description:COMPLEX XTRASOFT detachable coil deployed left internal carotid artery aneurysm Lens Intraoc 21.0 - [id number] - [id number] Implanted:Qty: 1 on 11/08/2020 by Yuri Bradley MD at OR [facility] Left: Eye BAUSCH & LOMB 06/26/2025 [id number] / [id number] / [id number] Lens Intraoc 20.5 - [id number] - [id number] Implanted:Qty: 1 on 11/22/2020 by Yuri Bradley MD at OR [facility] Right: Eye BAUSCH & LOMB 07/27/2025 [id number] / [id number] / [id number] Clip Quick 2.8mm 230cm - [id number] Implanted:Qty: 3 on 03/29/2021 by Luciana Fernandez MD at ENDOSCOPY [facility] [employer] 08/27/2023 HX-202UR. A / / Sureclip 16mm 235cm - [id number] Implanted:Qty: 2 on 05/07/2022 by Luciana Fernandez MD at ENDOSCOPY [facility] Colon MICRO TECH ENDOSCOPY 07/06/2024 [id number] / / Power Port 8fr Sngl Lumen Plas - [id number] Implanted:Qty: 1 on 01/30/2023 by Koko Santiago MD at OR [facility] N/A: Chest CR BARD : PERIPHERAL VASCULAR 07/27/2024 [id number] / / [id number] Power Port 8fr Sngl Lumen Plas - [id number] Implanted:Qty: 1 on 01/30/2023 by Kook Santiago MD at OR [facility] CR BARD : PERIPHERAL VASCULAR [id number] 07/27/2024 [id number] / / [id number] documented as of this encounter Visit Diagnoses [...] and were consensually agreed upon. Care Teams Machine Repair Person Relationship Specialty Start Date End Date Mauro Watson DO [address] [place] [address] PCP - General Family Medicine 04/13/19 documented as of this encounter
--- OUTSIDE RECORDS SUMMARY | 2024-02-19 09:28 | External Medical Summary | Summary of Care ---
Author Name Unknown Organization [facility] Address [address] [place] [address] Phone [phone] Care Team Providers Care Manager Integrity Name Role Phone Mauro Watson DO Primary Care Provider Reason for Visit * Reason Comments Follow Up Encounter Details Date Type Department Care Team (Late st Contact Info) Description 11/12/2023 2:30 PM EDT Telemedicine Neurosurgery, [place] [address] [place] [address] Dashawn Haines MD [address] [place] [address] Cerebral aneurysm, nonruptured* Allergies Active Allergy Reactions Criticality Noted Date Comments Aspirin Bleeding High 11/26/2011 Significant hemorroidal bleed on aspirin,high doses Duloxetine Hcl Hypertension 01/26/2020 documented as of this encounter (statuses as of 11/12/2023) Medications Medication Sig Dispensed Refills Start Date [...] as of this encounter (statuses as of 11/12/2023) Active Problems Problem Noted Date Diagnosed Date Malignant neoplasm of left lung 08/23/2023 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 01/21/2023 Encounter for antineoplastic chemotherapy 2022 Medical marijuana use 08/26/2021 CKD (chronic kidney disease), stage II Overview: EGFR 72 Lumbar radiculopathy 05/27/2019 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 Patient (or authorized legal freight representative) was then informed that this was a Telemedicine visit and that the exam was being conducted confidentially over secure lines. My office door was closed. No one else was in the room with me. Patient acknowledged consent and understanding of privacy and security of the Telemedicine visit and gave permission to have a telemedicine presenter stay in the room in order to assist with the history and to conduct the exam as needed. I informed the patient that I have reviewed their record in [facility] and presented the opportunity for them to ask any questions regarding the visit today. The patient agreed to participate. Visit Disposition: Routine follow-up Total call duration was 23 minutes. Mp Vaughn is a very pleasant 73 year old male who returns to our cerebrovascular clinic forfollow up and discussion of further management. Mr. Vaughn underwent treatment of a left para clinoid ICA aneurysm. 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 Anothony continues to take 81 mg of aspirin daily without complication. Unfortunately he was diagnosed with malignancy a year ago. He feels that he is doing well and is without complaint. The patient denies fever, nausea, vomiting, dizziness, double vision, change in bowel or bladder, chest pain, and SOB. Brain MRA now shows stable appearance of the known findings. Past CV Procedures: 09/12/2015 - Diagnostic cervico cerebral angiogram and stent assisted coil embolization of a left para clinoid ICA aneurysm 08/20/2016 - Diagnostic cerebral angiogram revealing stable minimal filling of the base of the previously treated aneurysm as well as a stable 3-4 mm right PCOM artery aneurysm Surgical history Past Surgical History: Procedure Laterality Date AAA/AORTIC DISSEC REPAIR,ENDOVASC N/A 06/10/2014 placement of palmaz stent across proximal aortic endograft seal zone by Dr. Gallegos. CAROTID (INTERNAL) ARTERY CATHETHER PLACEMENT Bilateral 08/20/2016 CATHETER PLACEMENT INTERNAL CAROTID ARTERY performed by Arik Shin MD at [facility] CATHETER OCCLUSION/EMBOLIZATION,NEGATIVE DEVELOPER N/A 09/12/2015 TRANSCATHETER PERMANENT ARTERIAL OCCLUSION CENTRAL NERVOUS SYSTEM performed by Arik Shin MD at OR [facility] COLONOSCOPY W/ LESION REMOVAL, SNARE 09/09/2006 adenomatous polyp--repeat 5 years COLONOSCOPY, DIAGNOSTIC (RECTUM) 08/15/2012 adenomatous polyp, diverticulosis, repeat 5 yrs/COLONOSCOPY FLEXIBLE PROXIMAL DIAGNOSTIC performed by Luciana Fernandez MD at ENDOSCOPY [facility] COLONOSCOPY, DIAGNOSTIC (RECTUM) 11/23/2015 adenomatous polyps, diverticulosis, andiodysplastic lesions, repeat 5 yrs/[facility] COLONOSCOPY, DIAGNOSTIC (RECTUM) 11/28/2015 colonic ulcer, diverticulosis/inpt [facility] COLONOSCOPY, DIAGNOSTIC (RECTUM) 03/29/2021 adenomatous polyps, diverticulosis, repeat 1 yr / COLONOSCOPY FLEXIBLE PROXIMAL DIAGNOSTIC performed by Luciana Fernandez MD at ENDOSCOPY [facility] COLONOSCOPY, DIAGNOSTIC (RECTUM) 05/07/2022 benign adenomatous polyps, repeat 6 mo / COLONOSCOPY FLEXIBLE PROXIMAL DIAGNOSTIC performed by Luciana Fernandez MD at ENDOSCOPY [facility] COLONOSCOPY, DIAGNOSTIC (RECTUM) 11/02/2022 resolving ischemic colitis, repeat 9 mo / COLONOSCOPY FLEXIBLE PROXIMAL DIAGNOSTIC performed by Luciana Fernandez MD at ENDOSCOPY [facility] EGD, FLEXIBLE, DIAGNOSTIC 11/23/2015 reflux esophagitis, Schatzki ring, sm /[facility] EGD, FLEXIBLE, DIAGNOSTIC 01/02/2023 hiatal hernia/gastritis/biopsies show mild gastritits of stomach/ESOPHAGOGASTRODUODENOSCOPY (EGD), FLEXIBLE, TRANSORAL, DIAGNOSTIC performed by Jory Sauceda DO at ENDOSCOPY [facility] EGD, W/ENDOSCOPIC US 01/02/2023 multiple metastatic lesions liver/ESOPHAGOGASTRODUODENOSCOPY (EGD), FLEXIBLE, TRANSORAL, ENDOSCOPICULTRASOUND performed by Jory Sauceda DO at ENDOSCOPY [facility] HEMORRHOIDECTOMY, INTERNAL, 2 + COLUMNS 06/28/2000 Internal [...] performed by Wiliam Tam DO at OR [facility] INJECT DX/THER SUBSTANCE INTERLAMINAR LUMBAR/SACRAL W IMAGE GUIDE 07/31/2023 INJECTION SPINE LUMBAR OR SACRAL performed by Wiliam Tam DO at OR [facility] INSER TUNN ACC DEV;5 YRS/OLDER N/A 01/30/2023 INSERT TUNNELED CENTRAL VENOUS ACCESS WITH SUBQ PORT performed by Koko Santiago MD at OR [facility] INSERT ARTERY CATHETER THRU SKIN Right [...] performed by Deep León DO at OR [facility] OPEN FEMORAL ARTERY EXPOSURE FOR ENDOVASCULAR PROSTHESIS, UNILAT Bilateral 06/10/2014 bilateral femoral artery exposure by Dr. Gallegos. OTHER (INFORMATION) ACT [address] CATHETER IN ARTERIES N/A 08/31/2015 CATHETER PLACEMENT, BRACHIOCEPHALIC, THIRD ORDER BRANCH performed by Arik Shin MD at [facility] PLACE CATHETER IN ARTERIES N/A 09/12/2015 CATHETER PLACEMENT, BRACHIOCEPHALIC, THIRD ORDER BRANCH performed by Arik Shin MD at [facility] REMOVE CATARACT, INSERT LENS PROSTH Left 11/08/2020 left EXTRACAPSULAR CATARACT REMOVAL WITH INTRAOCULAR LENS performed by Yuri Bradley MD at OR [facility] REMOVE CATARACT, INSERT LENS PROSTH Right 11/22/2020 right EXTRACAPSULAR CATARACT REMOVAL WITH INTRAOCULAR LENS performed by Yuri Bradley MD at OR [facility] VERTEBRAL ARTERY CATHETER PLACEMENT Bilateral 08/20/2016 CATHETER PLACEMENT VERTEBRAL ARTERY, performed by Arik Shin MD at [facility] Problem list Patient Active Problem List Diagnosis ADJ DISORDER W/DEPRES MOOD Insomnia FAMILY HX-GI MALIGNANCY - grandfather IMPOTENCE, ORGANIC ORIGN ADVANCE DIRECTIVE INFORMATION Benign neoplasm of adrenal gland Hearing loss Deviated nasal septum Bruxism, sleep-related Subjective tinnitus Temporomandibular joint disorders, unspecified CORON ATHEROSCL [place] CORON VESSEL Dyslipidemia, goal LDL below 70 HTN, goal below 130/80 Hypertriglyceridemia Medical home patient encounter AAA (abdominal aortic aneurysm) (HCC) Bilateral carotid artery disease (HCC) Cerebral aneurysm, nonruptured Carotid aneurysm, left (HCC) ACEI/ARB contraindicated History of colon polyps 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 Assessment and plan Return to clinic in 2 years with brain MRA w/wo contrast. The patient questions were answered thoroughly. The patient expressed understanding and elected to proceed with the above mentioned plan. Dashawn Haines MD Director of Open Vascular and Endovascular Neurosurgery at [facility] [employer] Mechanic of Neurosurgery, [facility] documented in this encounter Plan of Treatment Upcoming Encounters Date Type Department Care Team (Late st Contact Info) Description 11/14/2023 7:30 AM EDT Laboratory Laboratory [facility] [place] [address] [place] [phone] Diane, Lab [facility] [place] [address] 11/14/2023 7:45 AM EDT Office Visit Hematology/Oncology [facility] [place] [address] [place] [phone] Lasha Christine MD 200 [place] [address] 11/14/2023 8:15 AM EDT Hem/Onc Treatment Hematology/Oncology Treatment, [place] [address] [place] [phone] Diane, Chair 7 Hem Onc [facility] [address] [place] [address] 11/28/2023 11:45 AM EDT Imaging Radiology [address], [place] 132 [facility] [place] [address] 12/05/2023 9:30 AM EDT Office Visit Interventional Pain Center, [facility] [address] [place] [address] Leeanna Centeno PA-C [address] [place] [address] 12/17/2023 10:00 AM EDT Appointment Vascular Lab [facility] [address] [place] [address] 12/17/2023 10:30 AM EDT Office Visit Vascular Surg [facility] [address] [place] [address] Margarito Cabrera MD [address], [place] [id number] Scheduled Procedures Name Priority Associated Diagnoses Date/Ti [...] 02/21/2022, Additional history exists GFR 10/23/2024 2023, 09/2023, 09/12/2023, Additional history exists Albumin/Creatinine Ratio [...] this encounter Medical Devices Implanted Type Area Voltage Regulator Assembler Device Identifier Shelf Expiration Date Model / Serial / Lot Stent Main Body Kgea-57-56-Zt - [id number] Implanted:Qty: 1 on 06/10/2014 by Ronal Gallegos MD at [place] [facility] Aorta [employer] 04/07/2016 TFFB-24-8 2-ZT / / Graft Iliac Leg Spirlz 03p05fy - [id number] Implanted:Qty: 1 on 06/10/2014 by Ronal Gallegos MD at [place] [facility] Right: Aorta [employer] 10/09/2015 [id number] / / [id number] Description: Graft Iliac Leg Spirlz 22p16am - [id number] Implanted:Qty: 1 on 06/10/2014 by Ronal Gallegos MD at [place] [facility] Right: Femoral Artery [employer] 11/07/2016 [id number] / / [id number] Stent Polmer 29mm P3110 - [id number] Implanted:Qty: 1 on 06/10/2014 by Ronal Gallegos MD at [place] [facility] N/A: Aorta JNJ : CORDIS ENDOVASCULAR 07/26/2018 P3110 / / [id number] Codman Orbit Galaxy Coil 2.5mm X 3.5cm Implanted:Qty: 1 on 09/12/2015 by Arik Shin MD at [place] [facility] Left: Head LENORA [employer] LENORA CODMAN 02/26/2017 [id number] / [id number] / [id number] Description:COMPLEX XTRASOFT detachable coil deployed left internal carotid artery Codman Orbit Galaxy Coil 2.5mm X 2.5cm Implanted:Qty: 1 on 09/12/2015 by Arik Shin MD at OR [facility] Left: Head LENORA & LENORA CODMAN 01/27/2016 [id number] / [id number] / [id number] Description:COMPLEX XTRASOFT detachable coil deployed left internal carotid artery aneurysm Codman [place] 2 Stent 4mm X 30mm Implanted:Qty: 1 on 09/12/2015 by Arik Shin MD at OR [facility] Left: Head LENORA & LENORA DEPUY 03/26/2018 [id number] / [id number] / [id number] Description:Vascular reconst ruction device deployed in left internal carotid artery Codman Orbit Galaxy Coil 6mm X 20cm Implanted:Qty: 1 on 09/12/2015 by Arik Shin MD at OR [facility] Left: Head LENORA & LENORA CODMAN 09/26/2016 [id number] / [id number] / [id number] Description:COMPLEX FILL det achable coil deployed left internal carotid artery aneurysm Codman Orbit Galaxy Coil 4mm X 10cm Implanted:Qty: 1 on 09/12/2015 by Arik Shin MD at OR [facility] Left: Head LENORA & LENORA CODMAN 10/27/2015 [id number] 0 / [id number] / [id number] Description:COMPLEX XTRASOFT detachable coil deployed left internal carotid artery aneurysm Codman Orbit Galaxy Coil 3.5mm X 9cm Implanted:Qty: 1 on 09/12/2015 by Arik Shin MD at [place] [facility] Left: Head LENORA & LENORA CODMAN 12/28/2015 [id number] / [id number] / [id number] Description:COMPLEX XTRASOFT detachable coil deployed left internal carotid artery aneurysm Codman Orbit Galaxy Coil 3mm X 6cm Implanted:Qty: 1 on 09/12/2015 by Arik Shin MD at OR [facility] Left: Head LENORA & LENORA CODMAN 04/28/2017 [id number] / [id number] / [id number] Description:COMPLEX XTRASOFT detachable coil deployed left internal carotid artery aneurysm Lens Intraoc 21.0 - [id number] - [id number] Implanted:Qty: 1 on 11/08/2020 by Yuri Bradley MD at OR [facility] Left: Eye BAUSCH & LOMB 06/26/2025 [id number] / [id number] / [id number] Lens Intraoc 20.5 - [id number] - [id number] Implanted:Qty: 1 on 11/22/2020 by Yuri Bradley MD at OR [facility] Right: Eye BAUSCH & LOMB 07/27/2025 [id number] / [id number] / [id number] Clip Quick 2.8mm 230cm - [id number] Implanted:Qty: 3 on 03/29/2021 by Luciana Fernandez MD at ENDOSCOPY [facility] [employer] 08/27/2023 HX-202UR. A / / Sureclip 16mm 235cm - [id number] Implanted:Qty: 2 on 05/07/2022 by Luciana Fernandez MD at ENDOSCOPY [facility] Colon MICRO TECH ENDOSCOPY 07/06/2024 [id number] / / Power Port 8fr Sngl Lumen Plas - [id number] Implanted:Qty: 1 on 01/30/2023 by Koko Santiago MD at OR [facility] N/A: Chest CR BARD : PERIPHERAL VASCULAR 07/27/2024 [id number] / / [id number] Power Port 8fr Sngl Lumen Plas - [id number] Implanted:Qty: 1 on 01/30/2023 by Koko Santiago MD at OR [facility] CR BARD : PERIPHERAL VASCULAR [id number] 07/27/2024 [id number] / / [id number] documented as of this encounter Visit Diagnoses Diagnosis Cerebral aneurysm, nonruptured- Primary documented in this encounter Advance Directives [...] were consensually agreed upon. Care Teams Manager Integrity Relationship Specialty Start Date End Date Mauro Watson DO [address] [place] [address] PCP - General Family Medicine 04/13/19 documented as of this encounter
--- OUTSIDE RECORDS SUMMARY | 2024-02-19 09:28 | External Medical Summary | Summary of Care ---
Author Name Unknown Organization [facility] Address [address] [place] [address] Phone [phone] Care Team Providers Care Clinical Trial Manager Name Role Phone Mauro Watson DO Primary Care Provider Reason for Visit * Reason Comments Chemotherapy Alimta/Carboplatin. * Episode Based Medications (Routine) - Authorized Specialty Diagnoses / Procedures Referred By Edmund t Referred To Contact Diagnoses Encounter for antineoplastic chemotherapy 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) Malignant neoplasm of left lung, unspecified part of lung (HCC) Procedures HI INJ. PEMETREXED NOS 10MG HI CARBOPLATIN INJECTION HI FOSAPREPITANT INJECTION Lasha Christine MD 200 [place] [address] Anc Hem/Onc [address] [address] Referral ID Status Reason Start Date Expiration Date V isits Requested Visits Authorized [id number] Authorized 08/22/2023 04/28/2099 999 99 Encounter Details Date Type Department Care Team (Latest Contact Info) Description 10/04/2023 9:45 AM EDT Hem/Onc Treatment Hematology/Oncolog y Treatment, [address] [address] Diane Chair 11 Hem On[address] [place] [address] Encounter for antineoplastic chemotherapy*; Metastatic carcinoma involving [...] EGFR 72 Lumbar radiculopathy 05/27/2019 Atherosclerosis of [place] co ronary artery of [place] heart with angina pectoris 05/05/2019 History of colon polyps 08/12/2018 ACEI/ARB contraindicated 09/21/2016 Carotid aneurysm, left 09/13/2015 Overview: S/p coil embolization Cerebral aneurysm, nonruptured 09/05/2015 AAA (abdominal aortic aneurysm) 06/20/2015 Overview: S/p repair Bilateral carotid artery disease 06/20/2015 Medical home patient encounter 05/19/2014 Hypertriglyceridemia 05/16/2012 CORON ATHEROSCL [place] CORON VESSEL 07/11/2010 Dyslipidemia, goal LDL below [...] AM EDT Chair 10. Patient arrived for [facility]carboplatin infusion. Patient was seen by Dr. Christine [...] Description 11/11/2023 10:00 AM EDT Imaging Radiology [facility] [address] 11/12/2023 2:30 PM EDT Telemedicine Neurosurgery, [place] [address] [place] [address] Dashawn Haines MD [address] [place] [address] 11/14/2023 7:30 AM EDT Laboratory Laboratory Scenery [facility] [address] [place] [address] [facility] Scenery [address] [place] [address] 11/14/2023 7:45 AM EDT Office Visit Hematology/Oncology [facility] [address] [place] [phone] Lasha Christine MD [address] [place] [address] 11/14/2023 8:15 AM EDT Hem/Onc Treatment Hematology/Oncology Treatment, [place] [address] [place] [phone] Diane, Chair 7 Hem Onc Scene 200 [facility] [place] [address] 11/28/2023 11:45 AM EDT Imaging Radiology [facility] [place] [address] 12/05/2023 9:30 AM EDT Office Visit Interventional Pain Center, [facility] [address] [facility] [place] [address] Leeanna Centeno PA-C [facility] [place] [address] 12/17/2023 10:00 AM EDT Appointment Vascular Lab [facility] [address] [place] [address] 12/17/2023 10:30 AM EDT Office Visit Vascular Surg [facility] [address] [place] [address] Margarito Cabrera MD [address] [place] [address] Scheduled Procedures Name Priority Associated Diagnoses Date/Ti [...] this encounter Medical Devices Implanted Type Area Bacon Slicer Device Identifier Shelf Expiration Date Model / Serial / Lot Stent Main Body Fvwp-87-31-[id number] - [id number] Implanted:Qty: 1 on 06/10/2014 by Ronal [place] [facility] [place] Aorta [employer] 04/07/2016 TFFB-24-8 2-ZT / / Graft Iliac Leg Spirlz 75m90qe - [id number] Implanted:Qty: 1 on 06/10/2014 by Ronal Gallegos MD [place] [facility] [place] Right: Aorta [employer] 10/09/2015 [id number] / / [id number] Description: Graft Iliac Leg Spirlz 96r21eh - [id number] Implanted:Qty: 1 on 06/10/2014 by Ronal Gallegos MD [place] [facility] [place] Right: Femoral Artery [employer] 11/07/2016 [id number] / / [id number] Stent Polmer 29mm P3110 - [id number] Implanted:Qty: 1 on 06/10/2014 by Ronal Gallegos MD [place] [facility] [place] N/A: Aorta JNJ : CORDIS ENDOVASCULAR 07/26/2018 P3110 / / [id number] Codman Orbit Galaxy Coil 2.5mm X 3.5cm Implanted:Qty: 1 on 09/12/2015 by Arik Shin MD [place] [facility] [place] Left: Head LENORA & [facility]ORA [facility] 02/26/2017 [id number] / [id number] / [id number] Description:COMPLEX XTRASOFT detachable coil deployed left internal carotid artery Codman Orbit Galaxy Coil 2.5mm X 2.5cm Implanted:Qty: 1 on 09/12/2015 by Arik Shin MD [place] [facility] [place] Left: Head LENORA & LENORA CODMAN 01/27/2016 [id number] / [id number] / [id number] Description:COMPLEX XTRASOFT detachable coil deployed left internal carotid artery aneurysm Codman [place] 2 Stent 4mm X 30mm Implanted:Qty: 1 on 09/12/2015 by Arik Shin MD at [place] [facility] [place] Left: Head LENORA & LENORA DEPUY 03/26/2018 [id number] / [id number] / [id number] Description:Vascular reconst ruction device deployed in left internal carotid artery Codman Orbit Galaxy Coil 6mm X 20cm Implanted:Qty: 1 on 09/12/2015 by Arik Shin MD at [place] [facility] [place] Left: Head LENORA & LENORA CODMAN 09/26/2016 [id number] / [id number] / [id number] Description:COMPLEX FILL det achable coil deployed left internal carotid artery aneurysm Codman Orbit Galaxy Coil 4mm X 10cm Implanted:Qty: 1 on 09/12/2015 by Arik Shin MD at [place] [facility] Left: Head LENORA & LENORA CODMAN 10/27/2015 [id number] 0 / [id number] / [id number] Description:COMPLEX XTRASOFT detachable coil deployed left internal carotid artery aneurysm Codman Orbit Galaxy Coil 3.5mm X 9cm Implanted:Qty: 1 on 09/12/2015 by Arik Shin MD [place] [facility] [place] Left: Head LENORA & LENORA CODMAN 12/28/2015 [id number] / [id number] / [id number] Description:COMPLEX XTRASOFT detachable coil deployed left internal carotid artery aneurysm Codman Orbit Galaxy Coil 3mm X 6cm Implanted:Qty: 1 on 09/12/2015 by Arik Shin MD at [place] [facility] [place] Left: Head LENORA & LENORA CODMAN 04/28/2017 [id number] / [id number] / [id number] Description:COMPLEX XTRASOFT detachable coil deployed left internal carotid artery aneurysm Lens Intraoc 21.0 - [id number] - [id number] Implanted:Qty: 1 on 11/08/2020 by Yuri Bradley MD at OR [facility] Left: Eye BAUSCH & LOMB 06/26/2025 [id number] / [id number] / [id number] Lens Intraoc 20.5 - [id number] - [id number] Implanted:Qty: 1 on 11/22/2020 by Yuri Bradley MD at OR [facility] Right: Eye BAUSCH & LOMB 07/27/2025 [id number] / [id number] / [id number] Clip Quick 2.8mm 230cm - [id number] Implanted:Qty: 3 on 03/29/2021 by Luciana Fernandez MD at ENDOSCOPY [facility] [employer] 08/27/2023 HX-202UR. A / / Sureclip 16mm 235cm - [id number] Implanted:Qty: 2 on 05/07/2022 by Luciana Fernandez MD at ENDOSCOPY [facility] Colon MICRO TECH ENDOSCOPY 07/06/2024 [id number] / / Power Port 8fr Sngl Lumen Plas - [id number] Implanted:Qty: 1 on 01/30/2023 by Koko Santiago MD at OR [facility] N/A: Chest CR BARD : PERIPHERAL VASCULAR 07/27/2024 [id number] / / [id number] Power Port 8fr Sngl Lumen Plas - [id number] Implanted:Qty: 1 on 01/30/2023 by Koko Santiago MD at OR [facility] CR BARD : PERIPHERAL VASCULAR [id number] 07/27/2024 [id number] / / [id number] documented as of this encounter Visit Diagnoses [...] and were consensually agreed upon. Care Teams Clinical Trial Manager Relationship Specialty Start Date End Date Mauro Watson DO [address] [place] [address] PCP - General Family Medicine 04/13/19 documented as of this encounter
--- OUTSIDE RECORDS SUMMARY | 2024-02-19 09:28 | External Medical Summary | Summary of Care ---
Author Name Unknown Organization [facility] Address [address] [place] [address] Phone [phone] Care Team Providers Care Career Representative Name Role Phone Mauro Watson DO Primary Care Provider Reason for Visit * Reason Comments Chemotherapy Alimta/Carboplatin. * Episode Based Medications (Routine) - Authorized Specialty Diagnoses / Procedures Referred By Edmund t Referred To Contact Diagnoses Encounter for antineoplastic chemotherapy 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) Malignant neoplasm of left lung, unspecified part of lung (HCC) Procedures SD INJ. PEMETREXED NOS 10MG SD CARBOPLATIN INJECTION SD FOSAPREPITANT INJECTION Lasha Christine MD 200 [facility] [place] [address] Anc Hem/Onc [address] [address] Referral ID Status Reason Start Date Expiration Date V isits Requested Visits Authorized [id number] Authorized 08/22/2023 04/28/2099 999 99 Encounter Details Date Type Department Care Team (Latest Contact Info) Description 10/04/2023 9:45 AM EDT Hem/Onc Treatment Hematology/Oncolog y Treatment, [address] [address] Diane Chair 11 Hem On[address] [place] [address] Encounter for antineoplastic chemotherapy*; Metastatic carcinoma involving [...] patient encounter 05/19/2014 Hypertriglyceridemia 05/16/2012 CORON ATHEROSCL [place] CORON VESSEL 07/11/2010 Dyslipidemia, goal LDL [...] AM EDT Chair 10. Patient arrived for [facility]. Patient was seen by Dr. Christine [...] Description 11/11/2023 10:00 AM EDT Imaging Radiology [facility] [address] 11/12/2023 2:30 PM EDT Telemedicine Neurosurgery, [place] [address] [place] [address] Dashawn Haines MD [address] [place] [facility] [place] [address] 11/14/2023 7:30 AM EDT Laboratory Laboratory Scenery [facility] [address] [place] [address] [facility] Scenery [address] [place] [address] 11/14/2023 7:45 AM EDT Office Visit Hematology/Oncology [facility] [address] [place] [phone] Lasha Christine MD [address] [place] [address] 11/14/2023 8:15 AM EDT Hem/Onc Treatment Hematology/Oncology Treatment, [place] [address] [place] [phone] Diane, Chair 7 Hem Onc Scene 200 [facility] [place] [address] 11/28/2023 11:45 AM EDT Imaging Radiology [facility] [place] [address] 12/05/2023 9:30 AM EDT Office Visit Interventional Pain Center, [facility] [address] [facility] [place] [address] Leeanna Centeno PA-C [facility] [place] [address] 12/17/2023 10:00 AM EDT Appointment Vascular Lab [facility] [address] [place] [address] 12/17/2023 10:30 AM EDT Office Visit Vascular Surg [facility] [address] [place] [address] Margarito Cabrera MD [address] [place] [address] Scheduled Procedures Name Priority Associated Diagnoses Date/Ti [...] this encounter Medical Devices Implanted Type Area Slicing Machine Feeder Device Identifier Shelf Expiration Date Model / Serial / Lot Stent Main Body Kzuu-69-75-Zt - [id number] Implanted:Qty: 1 on 06/10/2014 by Ronal Gallegos MD at [place] [facility] [place] Aorta [employer] 04/07/2016 TFFB-24-8 2-ZT / / Graft Iliac Leg Spirlz 77v62zu - [id number] Implanted:Qty: 1 on 06/10/2014 by Ronal Gallegos MD at [place] [facility] Right: Aorta [employer] 10/09/2015 [id number] / / [id number] Description: Graft Iliac Leg Spirlz 05c10jb - [id number] Implanted:Qty: 1 on 06/10/2014 by Ronal Gallegos MD at [place] [facility] Right: Femoral Artery [employer] 11/07/2016 [id number] / / [id number] Stent Polmer 29mm P3110 - [id number] Implanted:Qty: 1 on 06/10/2014 by Ronal Gallegos MD at [place] [facility] [place] N/A: Aorta JNJ : CORDIS ENDOVASCULAR 07/26/2018 P3110 / / [id number] Codman Orbit Galaxy Coil 2.5mm X 3.5cm Implanted:Qty: 1 on 09/12/2015 by Arik Shin MD at OR [facility] Left: Head LENORA & LENORA [facility] 02/26/2017 [id number] / [id number] / [id number] Description:COMPLEX XTRASOFT detachable coil deployed left internal carotid artery Codman Orbit Galaxy Coil 2.5mm X 2.5cm Implanted:Qty: 1 on 09/12/2015 by Arik Shin MD at OR [facility] Left: Head LENORA & LENORA CODMAN 01/27/2016 [id number] / [id number] / [id number] Description:COMPLEX XTRASOFT detachable coil deployed left internal carotid artery aneurysm Codman [place] 2 Stent 4mm X 30mm Implanted:Qty: 1 on 09/12/2015 by Arik Shin MD at OR [facility] Left: Head LENORA & LENORA DEPUY 03/26/2018 [id number] / [id number] / [id number] Description:Vascular reconst ruction device deployed in left internal carotid artery Codman Orbit Galaxy Coil 6mm X 20cm Implanted:Qty: 1 on 09/12/2015 by Arik Shin MD at OR [facility] Left: Head LENORA & LENORA CODMAN 09/26/2016 [id number] / [id number] / [id number] Description:COMPLEX FILL det achable coil deployed left internal carotid artery aneurysm Codman Orbit Galaxy Coil 4mm X 10cm Implanted:Qty: 1 on 09/12/2015 by Arik Shin MD at OR [facility] Left: Head LENORA & LENORA CODMAN 10/27/2015 [id number] 0 / [id number] / [id number] Description:COMPLEX XTRASOFT detachable coil deployed left internal carotid artery aneurysm Codman Orbit Galaxy Coil 3.5mm X 9cm Implanted:Qty: 1 on 09/12/2015 by Arik Shin MD at OR [facility] Left: Head LENORA & LENORA CODMAN 12/28/2015 [id number] / [id number] / [id number] Description:COMPLEX XTRASOFT detachable coil deployed left internal carotid artery aneurysm Codman Orbit Galaxy Coil 3mm X 6cm Implanted:Qty: 1 on 09/12/2015 by Arik Shin MD at OR [facility] Left: Head LENORA & LENORA CODMAN 04/28/2017 [id number] / [id number] / [id number] Description:COMPLEX XTRASOFT detachable coil deployed left internal carotid artery aneurysm Lens Intraoc 21.0 - [id number] - [id number] Implanted:Qty: 1 on 11/08/2020 by Yuri Bradley MD at OR [facility] Left: Eye BAUSCH & LOMB 06/26/2025 [id number] / [id number] / [id number] Lens Intraoc 20.5 - [id number] - [id number] Implanted:Qty: 1 on 11/22/2020 by Yuri Bradley MD at OR [facility] Right: Eye BAUSCH & LOMB 07/27/2025 [id number] / [id number] / [id number] Clip Quick 2.8mm 230cm - [id number] Implanted:Qty: 3 on 03/29/2021 by Luciana Fernandez MD at ENDOSCOPY [facility] [employer] 08/27/2023 HX-202UR. A / / Sureclip 16mm 235cm - [id number] Implanted:Qty: 2 on 05/07/2022 by Luciana Fernandez MD at ENDOSCOPY [facility] Colon MICRO TECH ENDOSCOPY 07/06/2024 [id number] / / Power Port 8fr Sngl Lumen Plas - [id number] Implanted:Qty: 1 on 01/30/2023 by Koko Santiago MD at OR [facility] N/A: Chest CR BARD : PERIPHERAL VASCULAR 07/27/2024 [id number] / / [id number] Power Port 8fr Sngl Lumen Plas - [id number] Implanted:Qty: 1 on 01/30/2023 by Koko Santiago MD at OR [facility] CR BARD : PERIPHERAL VASCULAR [id number] 07/27/2024 [id number] / / [id number] documented as of this encounter Visit Diagnoses [...] and were consensually agreed upon. Care Teams Career Representative Relationship Specialty Start Date End Date Mauro Watson DO [address] [place] [address] PCP - General Family Medicine 04/13/19 documented as of this encounter
--- OUTSIDE RECORDS SUMMARY | 2024-02-19 09:29 | External Medical Summary | Summary of Care ---
Author Name Unknown Organization [facility] Address [address] [place] [address] Phone [phone] Care Team Providers Care Residential Caregiver Name Role Phone Mauro Watson DO Primary [...] SC FOSAPREPITANT INJECTION Lasha Christine MD [address] [facility] [place] [address] Anc Hem/Onc [address] [address] Referral ID Status Reason Start Date Expiration Date V isits Requested Visits Authorized [id number] Authorized 08/22/2023 04/28/2099 999 99 Encounter Details Date Type Department Care Team (Latest Contact Info) Description 10/04/2023 9:45 AM EDT Hem/Onc Treatment Hematology/Oncolog y Treatment, [address] [address] Diane Chair 11 Hem Onc [address] [place] [address] Encounter for antineoplastic chemotherapy*; Metastatic carcinoma involving [...] EGFR 72 Lumbar radiculopathy 05/27/2019 Atherosclerosis of [place] co ronary artery of [place] heart with angina pectoris 05/05/2019 History of colon polyps 08/12/2018 ACEI/ARB contraindicated 09/21/2016 Carotid aneurysm, left 09/13/2015 Overview: S/p coil embolization Cerebral aneurysm, nonruptured 09/05/2015 AAA (abdominal aortic aneurysm) 06/20/2015 Overview: S/p repair Bilateral carotid artery disease 06/20/2015 Medical home patient encounter 05/19/2014 Hypertriglyceridemia 05/16/2012 CORON ATHEROSCL [place] CORON VESSEL 07/11/2010 Dyslipidemia, goal LDL below [...] EDT Chair 10. Patient arrived for [facility] infusion. Patient was seen by Dr. [...] 10:00 AM EDT Imaging Radiology [facility] [address] 11/12/2023 2:30 PM EDT Telemedicine Neurosurgery, [place] [address] [place] [address] Dashawn Haines MD [address] [place] [facility] [address] 11/14/2023 7:30 AM EDT Laboratory Laboratory Scenery [facility] [address] [place] [address] [facility] Scenery [address] [place] [address] 11/14/2023 7:45 AM EDT Office Visit Hematology/Oncology [facility] [address] [place] [phone] Lasha Christine MD [address] [place] [address] 11/14/2023 8:15 AM EDT Hem/Onc Treatment Hematology/Oncology Treatment, [place] [address] [place] [phone] Diane, Chair 7 Hem Onc Scene [address] [facility] [place] [address] 11/28/2023 11:45 AM EDT Imaging Radiology [facility] [place] [address] 12/05/2023 9:30 AM EDT Office Visit Interventional Pain Center, [facility] [address] [facility] [place] [address] Leeanna Centeno PA-C [facility] [place] [address] 12/17/2023 10:00 AM EDT Appointment Vascular Lab [facility] [address] [place] [address] 12/17/2023 10:30 AM EDT Office Visit Vascular Surg [facility] [address] [place] [address] Margarito Cabrera MD [address] [place] [address] Scheduled Procedures Name Priority Associated Diagnoses Date/Ti [...] this encounter Medical Devices Implanted Type Area Elastic Attacher Chainstitch Device Identifier Shelf Expiration Date Model / Serial / Lot Stent Main Body Ugjj-80-49-Zt - [id number] Implanted:Qty: 1 on 06/10/2014 by Ronal [place] [facility] [place] Aorta [employer] 04/07/2016 TFFB-24-8 2-ZT / / Graft Iliac Leg Spirlz 89a47us - [id number] Implanted:Qty: 1 on 06/10/2014 by Ronal Gallegos [place] [facility] [place] Right: Aorta [employer] 10/09/2015 [id number] / / [id number] Description: Graft Iliac Leg Spirlz 03h63vj - [id number] Implanted:Qty: 1 on 06/10/2014 by Ronal [place]leg[place] [facility] [place] Right: Femoral Artery [employer] 11/07/2016 [id number] / / [id number] Stent Polmer 29mm P3110 - [id number] Implanted:Qty: 1 on 06/10/2014 by Ronal Gallegos [place] [facility] [place]/A: Aorta JNJ : CORDIS ENDOVASCULAR 07/26/2018 P3110 / / [id number] Codman Orbit Galaxy Coil 2.5mm X 3.5cm Implanted:Qty: 1 on 09/12/2015 by Arik Shin MD [place] [facility] [place] Left: Head LENORA & [facility]A [facility] 02/26/2017 [id number] / [id number] / [id number] Description:COMPLEX XTRASOFT detachable coil deployed left internal carotid artery Codman Orbit Galaxy Coil 2.5mm X 2.5cm Implanted:Qty: 1 on 09/12/2015 by Arik Shin MD [place] [facility] [place] Left: Head LENORA & LENORA CODMAN 01/27/2016 [id number] / [id number] / [id number] Description:COMPLEX XTRASOFT detachable coil deployed left internal carotid artery aneurysm Codman [place] 2 Stent 4mm X 30mm Implanted:Qty: 1 on 09/12/2015 by Arik Shin MD [place] [facility] [place] Left: Head LENORA & LENORA DEPUY 03/26/2018 [id number] / [id number] / [id number] Description:Vascular reconst ruction device deployed in left internal carotid artery Codman Orbit Galaxy Coil 6mm X 20cm Implanted:Qty: 1 on 09/12/2015 by Arik Shin MD [place] [facility] [place] Left: Head LENORA & LENORA CODMAN 09/26/2016 [id number] / [id number] / [id number] Description:COMPLEX FILL det achable coil deployed left internal carotid artery aneurysm Codman Orbit Galaxy Coil 4mm X 10cm Implanted:Qty: 1 on 09/12/2015 by Arik Shin MD [place] [facility] [place] Left: Head LENORA & LENORA CODMAN 10/27/2015 [id number] 0 / [id number] / [id number] Description:COMPLEX XTRASOFT detachable coil deployed left internal carotid artery aneurysm Codman Orbit Galaxy Coil 3.5mm X 9cm Implanted:Qty: 1 on 09/12/2015 by Arik Shin MD [place] [facility] [place] Left: Head LENORA & LENORA CODMAN 12/28/2015 [id number] / [id number] / [id number] Description:COMPLEX XTRASOFT detachable coil deployed left internal carotid artery aneurysm Codman Orbit Galaxy Coil 3mm X 6cm Implanted:Qty: 1 on 09/12/2015 by Arik Shin MD [place] [facility] [place] Left: Head LENORA & LENORA CODMAN 04/28/2017 989RY4123 / [id number] / [id number] Description:COMPLEX XTRASOFT detachable coil deployed left internal carotid artery aneurysm Lens Intraoc 21.0 - [id number] - [id number] Implanted:Qty: 1 on 11/08/2020 by Yuri Bradley MD at OR [facility] Left: Eye BAUSCH & LOMB 06/26/2025 [id number] / [id number] / [id number] Lens Intraoc 20.5 - [id number] - [id number] Implanted:Qty: 1 on 11/22/2020 by Yuri Bradley MD at OR [facility] Right: Eye BAUSCH & LOMB 07/27/2025 [id number] / [id number] / [id number] Clip Quick 2.8mm 230cm - [id number] Implanted:Qty: 3 on 03/29/2021 by Luciana Fernandez MD at ENDOSCOPY [facility] [employer] 08/27/2023 HX-202UR. A / / Sureclip 16mm 235cm - [id number] Implanted:Qty: 2 on 05/07/2022 by Luciana Fernandez MD at ENDOSCOPY [facility] Colon MICRO TECH ENDOSCOPY 07/06/2024 [id number] / / Power Port 8fr Sngl Lumen Plas - [id number] Implanted:Qty: 1 on 01/30/2023 by Koko Santiago MD at OR [facility] N/A: Chest CR BARD : PERIPHERAL VASCULAR 07/27/2024 [id number] / / [id number] Power Port 8fr Sngl Lumen Plas - [id number] Implanted:Qty: 1 on 01/30/2023 by Koko Santiago MD at OR [facility] CR BARD : PERIPHERAL VASCULAR [id number] 07/27/2024 [id number] / / [id number] documented as of this encounter Visit Diagnoses [...] and were consensually agreed upon. Care Teams Residential Caregiver Relationship Specialty Start Date End Date Mauro Watson DO [address] [place] [address] PCP - General Family Medicine 04/13/19 documented as of this encounter
--- OUTSIDE RECORDS SUMMARY | 2024-02-19 09:29 | External Medical Summary | Summary of Care ---
Author Name Unknown Organization [facility] Address [address] [place] [address] Phone [phone] Care Team Providers Care Bird Tender Name Role Phone Mauro Watson DO Primary Care Provider Reason for Visit * Reason Comments Chemotherapy C4,D1 Alimta/Carbo/H ydration * Episode Based Medications (Routine) - Authorized Specialty Diagnoses / Procedures Referred By Edmund t Referred To Contact Diagnoses Encounter for antineoplastic chemotherapy 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) Malignant neoplasm of left lung, unspecified part of lung (HCC) Procedures FL INJ. PEMETREXED NOS 10MG FL CARBOPLATIN INJECTION FL FOSAPREPITANT INJECTION Lasha Christine MD [address] [place] [id number] Anc Hem/Onc [address] [address] Referral ID Status Reason Start Date Expiration Date V isits Requested Visits Authorized [id number] Authorized 08/22/2023 04/28/2099 999 99 Encounter Details Date Type Department Care Team (Latest Contact Info) Description 2023 8:45 AM EDT Hem/Onc Treatment Hematology/Oncolog y Treatment, [address] [phone] Diane, Chair 2 Hem Onc [address] [place] [address] Encounter for antineoplastic chemotherapy*; 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); Malignant neoplasm of left lung, unspecified part of lung (HCC) Allergies Active Allergy Reactions Criticality Noted Date Comments Aspirin Bleeding High 11/26/2011 Significant hemorroidal bleed on aspirin,high doses Duloxetine Hcl Hypertension 01/26/2020 documented as of this encounter (statuses as of 11/05/2023) Medications Medication Sig Dispensed Refills Start Date [...] as of this encounter (statuses as of 11/05/2023) Active Problems Problem Noted Date Diagnosed Date [...] patient encounter 05/19/2014 Hypertriglyceridemia 05/16/2012 CORON ATHEROSCL [place] CORON VESSEL 07/11/2010 Dyslipidemia, goal LDL below [...] as of this encounter (statuses as of 11/05/2023) Resolved Problems Problem Noted Date Diagnosed Date [...] as of this encounter (statuses as of 11/05/2023) Immunizations Name Administration Dates Next Due COVID-19 [...] as of this encounter Nursing Notes * Rodriguez Mann RN - 2023 12:26 PM EDT Pt infusion completed without issues. Pt VAD positive for blood return and flushed with NSS/Heparinper orders. Pt ambulated from treatment room in stable condition. Goals: Pt will remain free from injury. Possible barriers to meeting goals: IV Chemotherapy Stability of the patient: Moderately stable - low risk of patient condition declining or worsening Summary regarding today's goals: Met: Pt remained free from injury. * Rodriguez Mann RN - 2023 8:52 AM EDT Chair 10. VAD accessed without issues, positive blood return noted. Pt seen by Dr. Christine, ok with proceeding with treatment. Fluids infusing per orders. Safety and Risk for Injury Patient will remain free from injury. Ensure appropriate safety devices are available. Provide and maintain safe environment. Chemotherapy/Immunotherapy agents: Alimta/Carbo Consent for chemotherapy drug treatment complete, dated, [...] symptoms or adverse side effects during treatment. documented in this encounter Plan of Treatment Upcoming Encounters Date Type Department Care Team (Late st Contact Info) Description 11/11/2023 10:00 AM EDT [facility] [address] [facility] [place] [address] 11/12/2023 2:30 PM EDT Telemedicine Neurosurgery, [place] [address] [place] [address] Dashawn Haines MD [address] [place] [address] 11/14/2023 7:30 AM EDT Laboratory Laboratory [facility] [address] [place] [phone] Diane, Lab [facility] [address] [facility] [place] [address] 11/14/2023 7:45 AM EDT Office Visit Hematology/Oncology [facility] [address] [place] [phone] Lasha Christine MD [address] [place] [address] 11/14/2023 8:15 AM EDT Hem/Onc Treatment Hematology/Oncology Treatment, [place] [address] [place], [place] [phone] Diane, Chair 7 Hem Onc [facility] [address] [facility] [place], [place] [address] 11/28/2023 11:45 AM EDT Imaging Radiology [address] [place] [address] 12/05/2023 9:30 AM EDT Office Visit Interventional Pain Center, [facility] [address] [place] [address] Leeanna Centeno PA-C [address] [place] [address] 12/17/2023 10:00 AM EDT Appointment Vascular Lab [facility], [place] [address] [place] [address] 12/17/2023 10:30 AM EDT Office Visit Vascular Surg [facility] [address] [place] [address] Margarito Cabrera MD [address] [place] [address] Scheduled Procedures Name Priority Associated Diagnoses Date/Ti [...] this encounter Medical Devices Implanted Type Area Gardening Manager Device Identifier Shelf Expiration Date Model / Serial / Lot Stent Main Body Umiz-73-17-Zt - [id number] Implanted:Qty: 1 on 06/10/2014 by Ronal Gallegos MD at OR [facility] Aorta [employer] 04/07/2016 TFFB-24-8 2-ZT / / Graft Iliac Leg Spirlz 19i39ep - [id number] Implanted:Qty: 1 on 06/10/2014 by Ronal Gallegos MD at OR [facility] Right: Aorta [employer] 10/09/2015 [id number] / / [id number] Description: Graft Iliac Leg Spirlz 04q82ev - [id number] Implanted:Qty: 1 on 06/10/2014 by Ronal Gallegos MD at OR [facility] Right: Femoral Artery [employer] 11/07/2016 [id number] / / [id number] Stent Polmer 29mm P3110 - [id number] Implanted:Qty: 1 on 06/10/2014 by Ronal Gallegos MD at OR [facility] N/A: Aorta JNJ : CORDIS ENDOVASCULAR 07/26/2018 [id number] / / [id number] Codman Orbit Galaxy Coil 2.5mm X 3.5cm Implanted:Qty: 1 on 09/12/2015 by Arik Shin MD at OR [facility] Left: Head LENORA & AssurzMAN 02/26/2017 [id number] / [id number] / [id number] Description:COMPLEX XTRASOFT detachable coil deployed left internal carotid artery Codman Orbit Galaxy Coil 2.5mm X 2.5cm Implanted:Qty: 1 on 09/12/2015 by Arik Shin MD at OR [facility] Left: Head LENORA & LENORA CODMAN 01/27/2016 [id number] / [id number] / [id number] Description:COMPLEX XTRASOFT detachable coil deployed left internal carotid artery aneurysm Codman [place] 2 Stent 4mm X 30mm Implanted:Qty: 1 on 09/12/2015 by Arik Shin MD at OR [facility] Left: Head LENORA & LENORA DEP 03/26/2018 [id number] / [id number] / [id number] Description:Vascular reconst ruction device deployed in left internal carotid artery Codman Orbit Galaxy Coil 6mm X 20cm Implanted:Qty: 1 on 09/12/2015 by Arik Shin MD at OR [facility] Left: Head LENORA & LENORA CODMAN 09/26/2016 [id number] / [id number] / [id number] Description:COMPLEX FILL det achable coil deployed left internal carotid artery aneurysm Codman Orbit Galaxy Coil 4mm X 10cm Implanted:Qty: 1 on 09/12/2015 by Arik Shin MD at OR [facility] Left: Head LENORA & LENORA [facility] 10/27/2015 [id number] / [id number] / [id number] Description:COMPLEX XTRASOFT detachable coil deployed left internal carotid artery aneurysm Codman Orbit Galaxy Coil 3.5mm X 9cm Implanted:Qty: 1 on 09/12/2015 by Arik Shin MD at OR [facility] Left: Head LENORA & LENORA [facility] 12/28/2015 [id number] / [id number] / [id number] Description:COMPLEX XTRASOFT detachable coil deployed left internal carotid artery aneurysm Codman Orbit Galaxy Coil 3mm X 6cm Implanted:Qty: 1 on 09/12/2015 by Arik Shin MD at OR [facility] Left: Head LENORA & LENORA [facility] 04/28/2017 [id number] / [id number] / [id number] Description:COMPLEX XTRASOFT detachable coil deployed left internal carotid artery aneurysm Lens Intraoc 21.0 - [id number] - [id number] Implanted:Qty: 1 on 11/08/2020 by Yuri Bradley MD at OR [facility] Left: Eye BAUSCH & LOMB 06/26/2025 [id number] / [id number] / [id number] Lens Intraoc 20.5 - [id number] - [id number] Implanted:Qty: 1 on 11/22/2020 by Yuir Bradley MD at OR [facility] Right: Eye BAUSCH & LOMB 07/27/2025 [id number] / [id number] / [id number] Clip Quick 2.8mm 230cm - [id number] Implanted:Qty: 3 on 03/29/2021 by Luciana Fernandez MD at ENDOSCOPY [facility] [employer] 08/27/2023 HX-202UR. A / / Sureclip 16mm 235cm - [id number] Implanted:Qty: 2 on 05/07/2022 by Luciana Fernandez MD at ENDOSCOPY [facility] Colon MICRO TECH ENDOSCOPY 07/06/2024 [id number] / / Power Port 8fr Sngl Lumen Plas - [id number] Implanted:Qty: 1 on 01/30/2023 by Koko Santiago MD at OR [facility] N/A: Chest CR BARD : PERIPHERAL VASCULAR 07/27/2024 [id number] / / [id number] Power Port 8fr Sngl Lumen Plas - [id number] Implanted:Qty: 1 on 01/30/2023 by Koko Santiago MD at OR [facility] CR BARD : PERIPHERAL VASCULAR [id number] 07/27/2024 [id number] / / [id number] documented as of this encounter Visit Diagnoses Diagnosis Encounter for antineoplastic chemotherapy- Primary 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) Malignant neoplasm of left lung, unspecified part of lung (HCC) documented in this encounter Administered Medications Inactive Administered Medications - up to 3 most recent administrations Medication Order MAR Action Action Date Dose Rate Site CARBOplatin (Paraplatin) 429 mg in D5W 250 mL infusion 429 mg (rounded from 428.5 mg, Target AUC = 5), IV Piggyback, at 510 mL/hr Administer over 30 Minutes, PROTECT FROM LIGHT Administer 30 min after Alimta complete. (Max Creatinine Clearance at 125 ml/min for calculating AUC dose), ONCE, 1 dose, On Lizz 10/24/23 at 1030 Start Infusion 2023 10:58 AM EDT 429 mg 510 mL/hr Fosaprepitant Dimeglumine (Emend) 150 mg, ondansetron (Zofran) 16 mg, dexamethasone sodium phosphate 12 mg in NSS 250 mL Infusion 150 mg, IV Piggyback, ONCE, 1 dose, On Lizz 10/24/23 at 1000, Administer over 30 Minutes, Give 30 minutes prior to chemotherapy. Infuse over 30 minutes. Start Infusion 2023 9:06 AM EDT 150 mg 538.4 mL/hr hEParin 100 UNIT/ML Lock Flush inj 500 Units 500 Units (5 mL), IV Lock, PRN Other, IV Flush, Starting on Lizz 10/24/23 at 0850, Until Lizz 10/24/23 at 1628, For 24 hours, Do not flush if lock, PICC, or central line not in place; IV infusing or unable to flush. Given 2023 12:17 PM EDT 500 Units NSS infusion FOR HYDRATION Intravenous, at 500 mL/hr Administer over 2 Hours, ONCE, 1 dose, On Lizz 10/24/23 at 0930 Start Infusion 2023 10:19 AM EDT 1,000 mL 500 mL/hr NSS infusion Intravenous, at 50 mL/hr, PRN, Starting on Lizz 10/24/23 at 1000, Until Lizz 10/24/23 at 1628, Maintenance line Start Infusion 2023 9:05 AM EDT 50 mL/hr PEMEtrexed Disodium (Alimta) 900 mg in NSS 100 mL infusion 900 mg (rounded from 925 mg = 500 mg/m2 1.85 m2 Treatment Plan BSA from Recorded weight), IV Piggyback, ONCE, 1 dose, On Lizz 10/24/23 at 0945, Administer over 10 Minutes Start Infusion 2023 10:12 AM EDT 900 mg 630 mL/hr sodium chloride 0.9 % flush central line 10 mL 10 mL, IV Push, PRN Other, IV Flush, Starting on Lizz 10/24/23 at 0850, Until Lizz 10/24/23 at 1628, For 24 hours, Do not flush if lock, PICC, or central line not in place; IV infusing or unable to flush. Given 2023 12:17 PM EDT 10 mL documented in this [...] and were consensually agreed upon. Care Teams Bird Tender Relationship Specialty Start Date End Date Mauro Watson DO [address] [place] [address] PCP - General Family Medicine 04/13/19 documented as of this encounter
--- OUTSIDE RECORDS SUMMARY | 2024-02-19 09:29 | External Medical Summary | Summary of Care ---
Author Name Unknown Organization [facility] Address [address] [place] [address] Phone [phone] Care Team Providers Care Steam And Gas Turbine Assembler Name Role Phone Mauro Watson DO Primary Care Provider Reason for Visit * Reason Comments Chemotherapy Alimta/Carboplatin. * Episode Based Medications (Routine) - Authorized Specialty Diagnoses / Procedures Referred By Edmund t Referred To Contact Diagnoses Encounter for antineoplastic chemotherapy 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) Malignant neoplasm of left lung, unspecified part of lung (HCC) Procedures MT INJ. PEMETREXED NOS 10MG MT CARBOPLATIN INJECTION MT FOSAPREPITANT INJECTION Lasha Christine MD [address] [facility] [place] [address] Anc Hem/Onc [address] [address] Referral ID Status Reason Start Date Expiration Date V isits Requested Visits Authorized [id number] Authorized 08/22/2023 04/28/2099 999 99 Encounter Details Date Type Department Care Team (Latest Contact Info) Description 10/04/2023 9:45 AM EDT Hem/Onc Treatment Hematology/Oncolog y Treatment, [address] [phone] Diane Chair 11 Hem Onc [address] [place] [address] Encounter for antineoplastic chemotherapy*; Metastatic carcinoma involving [...] EGFR 72 Lumbar radiculopathy 05/27/2019 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 Patient arrived for [facility]/carboplatin infusion. Patient was seen by Dr. [...] Description 11/11/2023 10:00 AM EDT Imaging Radiology [facility] [address] 11/12/2023 2:30 PM EDT Telemedicine Neurosurgery, [place] [address] [place] [address] Dashawn Haines MD [address] [place] [facility] [place] [address] 11/14/2023 7:30 AM EDT Laboratory Laboratory [facility] [address] [place] [address] [facility] [address] [place] [address] 11/14/2023 7:45 AM EDT Office Visit Hematology/Oncology [facility] [address] [place] [phone] Lasha Christine MD [address] [place] [address] 11/14/2023 8:15 AM EDT Hem/Onc Treatment Hematology/Oncology Treatment, [place] [address] [place] [phone] Diane, Chair 7 Hem Onc Scene [address] [facility] [place] [address] 11/28/2023 11:45 AM EDT Imaging Radiology [facility] [place] [address] 12/05/2023 9:30 AM EDT Office Visit Interventional Pain Center, [facility] [address] [facility] [place] [address] Leeanna Centeno PA-C [facility] [place] [address] 12/17/2023 10:00 AM EDT Appointment Vascular Lab [facility] [address] [place] [address] 12/17/2023 10:30 AM EDT Office Visit Vascular Surg [facility] [address] [place] [address] Margarito Cabrera MD [address] [place] [address] Scheduled Procedures Name Priority Associated Diagnoses Date/Ti [...] this encounter Medical Devices Implanted Type Area Pet Walker Device Identifier Shelf Expiration Date Model / Serial / Lot Stent Main Body Yjiv-31-61-Zt - [id number] Implanted:Qty: 1 on 06/10/2014 by Ronal Gallegos MD at [place] [facility] Aorta [employer] 04/07/2016 TFFB-24-8 2-ZT / / Graft Iliac Leg Spirlz 67u75dt - [id number] Implanted:Qty: 1 on 06/10/2014 by Ronal Gallegos MD at [place] [facility] Right: Aorta [employer] 10/09/2015 [id number] / / [id number] Description: Graft Iliac Leg Spirlz 32b91ra - [id number] Implanted:Qty: 1 on 06/10/2014 by Ronal Gallegos MD at OR [facility] Right: Femoral Artery [employer] 11/07/2016 [id number] / / [id number] Stent Polmer 29mm P3110 - [id number] Implanted:Qty: 1 on 06/10/2014 by Ronal Gallegos MD at OR [facility] N/A: Aorta JNJ : CORDIS ENDOVASCULAR 07/26/2018 P3110 / / [id number] Codman Orbit Galaxy Coil 2.5mm X 3.5cm Implanted:Qty: 1 on 09/12/2015 by Arik Shin MD at OR [facility] Left: Head LENORA & LENORA [facility] 02/26/2017 [id number] / [id number] / [id number] Description:COMPLEX XTRASOFT detachable coil deployed left internal carotid artery Codman Orbit Galaxy Coil 2.5mm X 2.5cm Implanted:Qty: 1 on 09/12/2015 by Arik Shin MD at OR [facility] Left: Head LENORA & LENORA CODMAN 01/27/2016 [id number] / [id number] / [id number] Description:COMPLEX XTRASOFT detachable coil deployed left internal carotid artery aneurysm Codman [place] 2 Stent 4mm X 30mm Implanted:Qty: 1 on 09/12/2015 by Arik Shin MD at OR [facility] Left: Head LENORA & LENORA DEPUY 03/26/2018 [id number] / [id number] / [id number] Description:Vascular reconst ruction device deployed in left internal carotid artery Codman Orbit Galaxy Coil 6mm X 20cm Implanted:Qty: 1 on 09/12/2015 by Arik Shin MD at OR [facility] Left: Head LENORA & LENORA CODMAN 09/26/2016 [id number] / [id number] / [id number] Description:COMPLEX FILL det achable coil deployed left internal carotid artery aneurysm Codman Orbit Galaxy Coil 4mm X 10cm Implanted:Qty: 1 on 09/12/2015 by Arik Shin MD at OR [facility] Left: Head LENORA & LENORA CODMAN 10/27/2015 [id number] 0 / [id number] / [id number] Description:COMPLEX XTRASOFT detachable coil deployed left internal carotid artery aneurysm Codman Orbit Galaxy Coil 3.5mm X 9cm Implanted:Qty: 1 on 09/12/2015 by Arik Shin MD at OR [facility] Left: Head LENORA & LENORA CODMAN 12/28/2015 [id number] / [id number] / [id number] Description:COMPLEX XTRASOFT detachable coil deployed left internal carotid artery aneurysm Codman Orbit Galaxy Coil 3mm X 6cm Implanted:Qty: 1 on 09/12/2015 by Arik Shin MD at OR [facility] Left: Head LENORA & LENORA CODMAN 04/28/2017 [id number] / [id number] / [id number] Description:COMPLEX XTRASOFT detachable coil deployed left internal carotid artery aneurysm Lens Intraoc 21.0 - [id number] - [id number] Implanted:Qty: 1 on 11/08/2020 by Yuri Bradley MD at OR [facility] Left: Eye BAUSCH [employer] LOMB 06/26/2025 [id number] / [id number] / [id number] Lens Intraoc 20.5 - [id number] - [id number] Implanted:Qty: 1 on 11/22/2020 by Yuri Bradley MD at OR [facility] Right: Eye BAUSCH & LOMB 07/27/2025 [id number] / [id number] / [id number] Clip Quick 2.8mm 230cm - [id number] Implanted:Qty: 3 on 03/29/2021 by Luciana Fernandez MD at ENDOSCOPY [facility] [employer] 08/27/2023 HX-202UR. A / / Sureclip 16mm 235cm - [id number] Implanted:Qty: 2 on 05/07/2022 by Luciana Fernandez MD at ENDOSCOPY [facility] Colon MICRO TECH ENDOSCOPY 07/06/2024 [id number] / / Power Port 8fr Sngl Lumen Plas - [id number] Implanted:Qty: 1 on 01/30/2023 by Koko Santiago MD at OR [facility] N/A: Chest CR BARD : PERIPHERAL VASCULAR 07/27/2024 [id number] / / [id number] Power Port 8fr Sngl Lumen Plas - [id number] Implanted:Qty: 1 on 01/30/2023 by Koko Santiago MD at OR [facility] CR BARD : PERIPHERAL VASCULAR [id number] 07/27/2024 [id number] / / [id number] documented as of this encounter Visit Diagnoses [...] and were consensually agreed upon. Care Teams Steam And Gas Turbine Assembler Relationship Specialty Start Date End Date Mauro Watson DO [address] [place] [address] PCP - General Family Medicine 04/13/19 documented as of this encounter
--- OUTSIDE RECORDS SUMMARY | 2024-02-19 09:29 | External Medical Summary | Summary of Care ---
Author Name Unknown Organization [facility] Address [address] [place] [address] Phone [phone] Care Team Providers Care Halfway House Counselor Name Role Phone Mauro Watson DO Primary [...] [place] FOSAPREPITANT INJECTION Lasha Christine MD 200 [facility] [place] [address] Anc Hem/Onc [address] [address] Referral ID Status Reason Start Date Expiration Date V isits Requested Visits Authorized [id number] Authorized 08/22/2023 04/28/2099 999 99 Encounter Details Date Type Department Care Team (Latest Contact Info) Description 10/04/2023 9:45 AM EDT Hem/Onc Treatment Hematology/Oncolog y Treatment, [address] [address] Diane Chair 11 Hem Onc [address] [place] [address] Encounter for antineoplastic chemotherapy*; Metastatic carcinoma involving [...] EGFR 72 Lumbar radiculopathy 05/27/2019 Atherosclerosis of [place] co ronary artery of [place] heart with angina pectoris 05/05/2019 History of colon polyps 08/12/2018 ACEI/ARB contraindicated 09/21/2016 Carotid aneurysm, left 09/13/2015 Overview: S/p coil embolization Cerebral aneurysm, nonruptured 09/05/2015 AAA (abdominal aortic aneurysm) 06/20/2015 Overview: S/p repair Bilateral carotid artery disease 06/20/2015 Medical home patient encounter 05/19/2014 Hypertriglyceridemia 05/16/2012 CORON ATHEROSCL [place] CORON VESSEL 07/11/2010 Dyslipidemia, goal LDL below [...] AM EDT Chair 10. Patient arrived for [facility]/carboplatin infusion. Patient was seen by [...] Description 11/11/2023 10:00 AM EDT Imaging Radiology [facility] 1st [facility] [address] 11/12/2023 2:30 PM EDT Telemedicine Neurosurgery, [place] [address] [place] [address] Dashawn Haines MD [address] [facility] [place] [address] 11/14/2023 7:30 AM EDT Laboratory Laboratory [facility] [address] [place] [address] [facility] [address] [place] [address] 11/14/2023 7:45 AM EDT Office Visit Hematology/Oncology [facility] [address] [place] [phone] Lasha Christine MD [address] [place] [address] 11/14/2023 8:15 AM EDT Hem/Onc Treatment Hematology/Oncology Treatment, [place] [address] [place] [phone] Diane, Chair 7 Hem Onc Scene 200 [facility] [place] [address] 11/28/2023 11:45 AM EDT Imaging Radiology [facility] 1st [facility] [place] [address] 12/05/2023 9:30 AM EDT Office Visit Interventional Pain Center, [facility] [address] [facility] [place] [address] Leeanna Centeno PA-C [facility] [place] [address] 12/17/2023 10:00 AM EDT Appointment Vascular Lab [facility] [address] [place] [address] 12/17/2023 10:30 AM EDT Office Visit Vascular Surg [facility] [address] [place] [address] Margarito Cabrera MD [address] [place] [address] Scheduled Procedures Name Priority Associated Diagnoses Date/Ti [...] this encounter Medical Devices Implanted Type Area Ruby On Rails Web Developer Device Identifier Shelf Expiration Date Model / Serial / Lot Stent Main Body Xkvh-02-30-Zt - [id number] Implanted:Qty: 1 on 06/10/2014 by Ronal Gallegos MD at OR [facility] Aorta [employer]OOK GROUP 04/07/2016 TFFB-24-8 2-ZT / / Graft Iliac Leg Spirlz 72z90ac - [id number] Implanted:Qty: 1 on 06/10/2014 by Ronal Gallegos MD at OR [facility] Right: Aorta [employer] 10/09/2015 [id number] / / [id number] Description: Graft Iliac Leg Spirlz 50r48dl - [id number] Implanted:Qty: 1 on 06/10/2014 by Ronal Gallegos MD at OR [facility] Right: Femoral Artery [employer] 11/07/2016 [id number] / / [id number] Stent Polmer 29mm P3110 - [id number] Implanted:Qty: 1 on 06/10/2014 by Ronal Gallegos MD at OR [facility] N/A: Aorta JNJ : CORDIS ENDOVASCULAR 07/26/2018 P3110 / / [id number] Codman Orbit Galaxy Coil 2.5mm X 3.5cm Implanted:Qty: 1 on 09/12/2015 by Arik Shin MD at OR [facility] Left: Head LENORA & LENORA [facility] 02/26/2017 [id number] / [id number] / [id number] Description:COMPLEX XTRASOFT detachable coil deployed left internal carotid artery Codman Orbit Galaxy Coil 2.5mm X 2.5cm Implanted:Qty: 1 on 09/12/2015 by Arik Shin MD at OR [facility] Left: Head LENORA & LENORA CODMAN 01/27/2016 [id number] / [id number] / [id number] Description:COMPLEX XTRASOFT detachable coil deployed left internal carotid artery aneurysm Codman [place] 2 Stent 4mm X 30mm Implanted:Qty: 1 on 09/12/2015 by Arik Shin MD at OR [facility] Left: Head LENORA & LENORA DEPUY 03/26/2018 [id number] / [id number] / [id number] Description:Vascular reconst ruction device deployed in left internal carotid artery Codman Orbit Galaxy Coil 6mm X 20cm Implanted:Qty: 1 on 09/12/2015 by Arik Shin MD at OR [facility] Left: Head LENORA & LENORA CODMAN 09/26/2016 [id number] / [id number] / [id number] Description:COMPLEX FILL det achable coil deployed left internal carotid artery aneurysm Codman Orbit Galaxy Coil 4mm X 10cm Implanted:Qty: 1 on 09/12/2015 by Arik Shin MD at OR [facility] Left: Head LENORA & LENORA CODMAN 10/27/2015 [id number] 0 / [id number] / [id number] Description:COMPLEX XTRASOFT detachable coil deployed left internal carotid artery aneurysm Codman Orbit Galaxy Coil 3.5mm X 9cm Implanted:Qty: 1 on 09/12/2015 by Arik Shin MD at OR [facility] Left: Head LENORA & LENORA CODMAN 12/28/2015 [id number] / [id number] / [id number] Description:COMPLEX XTRASOFT detachable coil deployed left internal carotid artery aneurysm Codman Orbit Galaxy Coil 3mm X 6cm Implanted:Qty: 1 on 09/12/2015 by Arik Shin MD at OR [facility] Left: Head LENORA & LENORA CODMAN 04/28/2017 [id number] / [id number] / [id number] Description:COMPLEX XTRASOFT detachable coil deployed left internal carotid artery aneurysm Lens Intraoc 21.0 - [id number] - [id number] Implanted:Qty: 1 on 11/08/2020 by Yuri Bradley MD at OR [facility] Left: Eye BAUSCH & LOMB 06/26/2025 [id number] / [id number] / [id number] Lens Intraoc 20.5 - [id number] - [id number] Implanted:Qty: 1 on 11/22/2020 by Yuri rBadley MD at OR [facility] Right: Eye BAUSCH & LOMB 07/27/2025 [id number] / [id number] / [id number] Clip Quick 2.8mm 230cm - [id number] Implanted:Qty: 3 on 03/29/2021 by Luciana Fernandez MD at ENDOSCOPY [facility] [employer] 08/27/2023 HX-202UR. A / / Sureclip 16mm 235cm - [id number] Implanted:Qty: 2 on 05/07/2022 by Luciana Fernandez MD at ENDOSCOPY [facility] Colon MICRO TECH ENDOSCOPY 07/06/2024 [id number] / / Power Port 8fr Sngl Lumen Plas - [id number] Implanted:Qty: 1 on 01/30/2023 by Koko Santiago MD at OR [facility] N/A: Chest CR BARD : PERIPHERAL VASCULAR 07/27/2024 [id number] / / [id number] Power Port 8fr Sngl Lumen Plas - [id number] Implanted:Qty: 1 on 01/30/2023 by Koko Santiago MD at OR [facility] CR BARD : PERIPHERAL VASCULAR [id number] 07/27/2024 [id number] / / [id number] documented as of this encounter Visit Diagnoses [...] and were consensually agreed upon. Care Teams Halfway House Counselor Relationship Specialty Start Date End Date Mauro Watson DO [address] [place] [address] PCP - General Family Medicine 04/13/19 documented as of this encounter
--- OUTSIDE RECORDS SUMMARY | 2024-02-19 09:29 | External Medical Summary | Summary of Care ---
Author Name Unknown Organization [facility] Address [address] [place] [address] Phone [phone] Care Team Providers Care Buying Agent Name Role Phone Mauro Watson DO Primary [...] INJECTION [place] FOSAPREPITANT INJECTION Lasha Christine MD [address] [place] [address] Anc Hem/Onc [address] [address] Referral ID Status Reason Start Date Expiration Date V isits Requested Visits Authorized [id number] Authorized 08/22/2023 04/28/2099 999 99 Encounter Details Date Type Department Care Team (Latest Contact Info) Description 2023 8:45 AM EDT Hem/Onc Treatment Hematology/Oncolog y Treatment, [address] [phone] Diane, Chair 2 Hem Onc [address] [place] [address] Encounter for antineoplastic chemotherapy*; Metastatic carcinoma involving [...] patient encounter 05/19/2014 Hypertriglyceridemia 05/16/2012 CORON ATHEROSCL [place] CORON VESSEL 07/11/2010 Dyslipidemia, goal LDL below [...] 11/11/2023 10:00 AM EDT Imaging Radiology [facility] [address] [facility] [place] [address] 11/12/2023 2:30 PM EDT Telemedicine Neurosurgery, [place] [address] [place] [address] Dashawn Haines MD [address] [place] [address] 11/14/2023 7:30 AM EDT Laboratory Laboratory [facility] [address] [place] [phone] Diane, Lab [facility] [address] [facility] [place] [address] 11/14/2023 7:45 AM EDT Office Visit Hematology/Oncology [facility] [address] [place] [phone] Lasha Christine MD [address] [place] [address] 11/14/2023 8:15 AM EDT Hem/Onc Treatment Hematology/Oncology Treatment, [place] [address] [place], [place] [phone] Diane, Chair 7 Hem Onc [facility] [address] [facility] [place], [place] [address] 11/28/2023 11:45 AM EDT Imaging Radiology [address] [place] [address] 12/05/2023 9:30 AM EDT Office Visit Interventional Pain Center, [facility] [address] [place] [address] Leeanna Centeno PA-C [address] [place] [address] 12/17/2023 10:00 AM EDT Appointment Vascular Lab [facility], [place] [address] [place] [address] 12/17/2023 10:30 AM EDT Office Visit Vascular Surg [facility] [address] [place] [address] Margarito Cabrera MD [address] [place] [address] Scheduled Procedures Name Priority Associated Diagnoses Date/Ti [...] this encounter Medical Devices Implanted Type Area Vacuum Frame Operator Device Identifier Shelf Expiration Date Model / Serial / Lot Stent Main Body Tidd-17-52-Zt - [id number] Implanted:Qty: 1 on 06/10/2014 by Ronal Gallegos MD at OR [facility] Aorta [employer]OOK [employer] 04/07/2016 TFFB-24-8 2-ZT / / Graft Iliac Leg Spirlz 56i29af - [id number] Implanted:Qty: 1 on 06/10/2014 by Ronal Gallegos MD at OR [facility] Right: Aorta [employer] 10/09/2015 [id number] / / [id number] Description: Graft Iliac Leg Spirlz 98f98dc - [id number] Implanted:Qty: 1 on 06/10/2014 by Ronal Gallegos MD at OR [facility] Right: Femoral Artery [employer] 11/07/2016 [id number] / / [id number] Stent Polmer 29mm P3110 - [id number] Implanted:Qty: 1 on 06/10/2014 by Ronal Gallegos MD at OR [facility] N/A: Aorta JNJ : CORDIS ENDOVASCULAR 07/26/2018 P3110 / / [id number] Codman Orbit Galaxy Coil 2.5mm X 3.5cm Implanted:Qty: 1 on 09/12/2015 by Arik Shin MD at OR [facility] Left: Head LENORA & [employer] 02/26/2017 [id number] / [id number] / [id number] Description:COMPLEX XTRASOFT detachable coil deployed left internal carotid artery Codman Orbit Galaxy Coil 2.5mm X 2.5cm Implanted:Qty: 1 on 09/12/2015 by Arik Shin MD at OR [facility] Left: Head LENORA & LENORA CODMAN 01/27/2016 [id number] / [id number] / [id number] Description:COMPLEX XTRASOFT detachable coil deployed left internal carotid artery aneurysm Codman [place] 2 Stent 4mm X 30mm Implanted:Qty: 1 on 09/12/2015 by Arik Shin MD at OR [facility] Left: Head LENORA & LENORA [employer]P 03/26/2018 [id number] / [id number] / [id number] Description:Vascular reconst ruction device deployed in left internal carotid artery Codman Orbit Galaxy Coil 6mm X 20cm Implanted:Qty: 1 on 09/12/2015 by Arik Shin MD at OR [facility] Left: Head LENORA & LENORA CODMAN 09/26/2016 [id number] / [id number] / [id number] Description:COMPLEX FILL det achable coil deployed left internal carotid artery aneurysm Codman Orbit Galaxy Coil 4mm X 10cm Implanted:Qty: 1 on 09/12/2015 by Arik Shin MD at OR [facility] Left: Head LENORA & L[facility]A [facility] 10/27/2015 [id number] 0 / [id number] / [id number] Description:COMPLEX XTRASOFT detachable coil deployed left internal carotid artery aneurysm Codman Orbit Galaxy Coil 3.5mm X 9cm Implanted:Qty: 1 on 09/12/2015 by Arik Shin MD at OR [facility] Left: Head LENORA & LENORA [facility] 12/28/2015 [id number] / [id number] / [id number] Description:COMPLEX XTRASOFT detachable coil deployed left internal carotid artery aneurysm Codman Orbit Galaxy Coil 3mm X 6cm Implanted:Qty: 1 on 09/12/2015 by Arik Shin MD at OR [facility] Left: Head LENORA & LENORA [facility] 04/28/2017 [id number] / [id number] / [id number] Description:COMPLEX XTRASOFT detachable coil deployed left internal carotid artery aneurysm Lens Intraoc 21.0 - [id number] - [id number] Implanted:Qty: 1 on 11/08/2020 by Yuri Bradley MD at OR [facility] Left: Eye BAUSCH & LOMB 06/26/2025 [id number] / [id number] / [id number] Lens Intraoc 20.5 - [id number] - [id number] Implanted:Qty: 1 on 11/22/2020 by Yuri Bradley MD at OR [facility] Right: Eye BAUSCH & LOMB 07/27/2025 [id number] / [id number] / [id number] Clip Quick 2.8mm 230cm - [id number] Implanted:Qty: 3 on 03/29/2021 by Luciana Fernandez MD at ENDOSCOPY [facility] [employer] 08/27/2023 HX-202UR. A / / Sureclip 16mm 235cm - [id number] Implanted:Qty: 2 on 05/07/2022 by Luciana Fernandez MD at ENDOSCOPY [facility] Colon MICRO TECH ENDOSCOPY 07/06/2024 [id number] / / Power Port 8fr Sngl Lumen Plas - [id number] Implanted:Qty: 1 on 01/30/2023 by Koko Santiago MD at OR [facility] N/A: Chest CR BARD : PERIPHERAL VASCULAR 07/27/2024 [id number] / / [id number] Power Port 8fr Sngl Lumen Plas - [id number] Implanted:Qty: 1 on 01/30/2023 by Koko Santiago MD at OR [facility] CR BARD : PERIPHERAL VASCULAR [id number] 07/27/2024 [id number] / / [id number] documented as of this encounter Visit Diagnoses [...] Push, PRN Other, IV Flush, Starting on Lziz 10/24/23 at 0850, Until Lizz 10/24/23 at [...] and were consensually agreed upon. Care Teams Buying Agent Relationship Specialty Start Date End Date Mauro Watson DO [address] [place] [address] PCP - General Family Medicine 04/13/19 documented as of this encounter
--- OUTSIDE RECORDS SUMMARY | 2024-02-19 09:30 | External Medical Summary | Summary of Care ---
Author Name Unknown Organization [facility] Address [address] [place] [address] Phone [phone] Care Team Providers Care Assistant Paralegal Name Role Phone Mauro Watson DO Primary [...] INJECTION [place] FOSAPREPITANT INJECTION Lasha Christine MD [address] [place] [address] Anc Hem/Onc [address] [address] Referral ID Status Reason Start Date Expiration Date V isits Requested Visits Authorized [id number] Authorized 08/22/2023 04/28/2099 999 99 Encounter Details Date Type Department Care Team (Latest Contact Info) Description 2023 8:45 AM EDT Hem/Onc Treatment Hematology/Oncolog y Treatment, [address] [phone] Diane, Chair 2 Hem Onc [address] [place] [address] Encounter for antineoplastic chemotherapy*; Metastatic carcinoma involving [...] EGFR 72 Lumbar radiculopathy 05/27/2019 Atherosclerosis of [place] co ronary artery of [place] heart with angina pectoris 05/05/2019 History of [...] 11/11/2023 10:00 AM EDT Imaging [facility] [address] [facility] [place] [address] 11/12/2023 2:30 PM EDT Telemedicine Neurosurgery, [place] [address] [place] [address] Dashawn Haines MD [address] [place] [address] 11/14/2023 7:30 AM EDT Laboratory Laboratory [facility] [address] [place] [phone] Diane, Lab [facility] 200 [facility] [place] [address] 11/14/2023 7:45 AM EDT Office Visit Hematology/Oncology [facility] [address] [place] [phone] Lasha Christine MD [address] [place] [address] 11/14/2023 8:15 AM EDT Hem/Onc Treatment Hematology/Oncology Treatment, [place] [address] [place], [place] [phone] Diane, Chair 7 Hem Onc [facility] 200 [facility] [place], [place] [address] 11/28/2023 11:45 AM EDT Imaging Radiology [address] [place] [address] 12/05/2023 9:30 AM EDT Office Visit Interventional Pain Center, [facility] [address] [place] [address] Leeanna Centeno PA-C [address] [place] [address] 12/17/2023 10:00 AM EDT Appointment Vascular Lab [facility], [place] [address] [place] [address] 12/17/2023 10:30 AM EDT Office Visit Vascular Surg [facility] [address] [place] [address] Margarito Cabrera MD [address] [place] [address] Scheduled Procedures Name Priority Associated Diagnoses Date/Ti [...] encounter Medical Devices Implanted Type Area Conference Services Coordinator Device Identifier Shelf Expiration Date Model / Serial / Lot Stent Main Body Iaxq-84-93-Zt - [id number] Implanted:Qty: 1 on 06/10/2014 by Ronal Gallegos MD at OR [facility] Aorta [employer]OOK [employer] 04/07/2016 TFFB-24-8 2-ZT / / Graft Iliac Leg Spirlz 07f85pp - [id number] Implanted:Qty: 1 on 06/10/2014 by Ronal Gallegos MD at OR [facility] Right: Aorta [employer] 10/09/2015 [id number] / / [id number] Description: Graft Iliac Leg Spirlz 17d32zy - [id number] Implanted:Qty: 1 on 06/10/2014 by Ronal Gallegos MD at OR [facility] Right: Femoral Artery [employer] 11/07/2016 [id number] / / [id number] Stent Polmer 29mm P3110 - [id number] Implanted:Qty: 1 on 06/10/2014 by Ronal Gallegos MD at OR [facility] N/A: Aorta JNJ : CORDIS ENDOVASCULAR 07/26/2018 P3110 / / [id number] Codman Orbit Galaxy Coil 2.5mm X 3.5cm Implanted:Qty: 1 on 09/12/2015 by Arik Shin MD at OR [facility] Left: Head LENORA & [employer] 02/26/2017 [id number] / [id number] / [id number] Description:COMPLEX XTRASOFT detachable coil deployed left internal carotid artery Codman Orbit Galaxy Coil 2.5mm X 2.5cm Implanted:Qty: 1 on 09/12/2015 by Arik Shin MD at OR [facility] Left: Head LENORA & LENORA CODMAN 01/27/2016 [id number] / [id number] / [id number] Description:COMPLEX XTRASOFT detachable coil deployed left internal carotid artery aneurysm Codman [employer] 2 Stent 4mm X 30mm Implanted:Qty: 1 on 09/12/2015 by Arik Shin MD at OR [facility] Left: Head LENORA & LENORA DEP 03/26/2018 [id number] / [id number] / [id number] Description:Vascular reconst ruction device deployed in left internal carotid artery Codman Orbit Galaxy Coil 6mm X 20cm Implanted:Qty: 1 on 09/12/2015 by Arik Shin MD at OR [facility] Left: Head LENORA & LENORA CODMAN 09/26/2016 [id number] / [id number] / [id number] Description:COMPLEX FILL det achable coil deployed left internal carotid artery aneurysm Codman Orbit Galaxy Coil 4mm X 10cm Implanted:Qty: 1 on 09/12/2015 by Arik Shin MD at OR [facility] Left: Head LENORA & L[facility]ORA [facility] 10/27/2015 [id number] 0 / [id number] / [id number] Description:COMPLEX XTRASOFT detachable coil deployed left internal carotid artery aneurysm Codman Orbit Galaxy Coil 3.5mm X 9cm Implanted:Qty: 1 on 09/12/2015 by Arik Shin MD at OR [facility] Left: Head LENORA & LENORA [facility] 12/28/2015 [id number] / [id number] / [id number] Description:COMPLEX XTRASOFT detachable coil deployed left internal carotid artery aneurysm Codman Orbit Galaxy Coil 3mm X 6cm Implanted:Qty: 1 on 09/12/2015 by Arik Shin MD at OR [facility] Left: Head LENORA & LENORA [facility] 04/28/2017 [id number] / [id number] / [id number] Description:COMPLEX XTRASOFT detachable coil deployed left internal carotid artery aneurysm Lens Intraoc 21.0 - [id number] - [id number] Implanted:Qty: 1 on 11/08/2020 by Yuri Bradley MD at OR [facility] Left: Eye BAUSCH & LOMB 06/26/2025 [id number] / [id number] / [id number] Lens Intraoc 20.5 - [id number] - [id number] Implanted:Qty: 1 on 11/22/2020 by Yuri Bradley MD at OR [facility] Right: Eye BAUSCH & LOMB 07/27/2025 [id number] / [id number] / [id number] Clip Quick 2.8mm 230cm - [id number] Implanted:Qty: 3 on 03/29/2021 by Luciana Fernandez MD at ENDOSCOPY [facility] [employer] 08/27/2023 HX-202UR. A / / Sureclip 16mm 235cm - [id number] Implanted:Qty: 2 on 05/07/2022 by Luciana Fernandez MD at ENDOSCOPY [facility] Colon MICRO TECH ENDOSCOPY 07/06/2024 [id number] / / Power Port 8fr Sngl Lumen Plas - [id number] Implanted:Qty: 1 on 01/30/2023 by Koko Santiago MD at OR [facility] N/A: Chest CR BARD : PERIPHERAL VASCULAR 07/27/2024 [id number] / / [id number] Power Port 8fr Sngl Lumen Plas - [id number] Implanted:Qty: 1 on 01/30/2023 by Koko Santiago MD at OR [facility] CR BARD : PERIPHERAL VASCULAR [id number] 07/27/2024 [id number] / / [id number] documented as of this encounter Visit Diagnoses [...] and were consensually agreed upon. Care Teams Assistant Paralegal Relationship Specialty Start Date End Date Mauro Waston DO [address] [place] [address] PCP - General Family Medicine 04/13/19 documented as of this encounter
--- OUTSIDE RECORDS SUMMARY | 2024-02-19 09:30 | External Medical Summary | Summary of Care ---
Author Name Unknown Organization [facility] Address [address] [place] [address] Phone [phone] Care Team Providers Care [employer] Delivery Driver Name Role Phone Mauro Watson DO Primary Care Provider Reason for Referral * Precert (Within 10 days (routine)) - Authorized Specialty Diagnoses / Procedures Referred By Contac t Referred To Contact Radiology Diagnoses DDD (degenerative disc disease), lumbar Lumbar radiculopathy Spinal stenosis of lumbar region with neurogenic claudication Procedures MRI L SPINE WO CONTRAST Wiliam Tam DO [address] [place] [address] Referral ID Status Reason Start Date Expiration Date V isits Requested Visits Authorized [id number] Authorized 11/06/2023 999 999 Reason for Visit * Reason Comments Back Pain Right low intermitte nt back sharp pain intermittent on left low back denies radiating. Numbness/tingling/burning in bilateral feet. Weakness in bilateral legs when sitting in certain positions x 2-3 months no trauma Encounter Details Date Type Department Care Team (Latest Contact Info) Description 11/05/2023 1:10 PM EDT Office Visit Interventional Pain Center, 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 05/05/2019 History of colon polyps 08/12/2018 ACEI/ARB contraindicated 09/21/2016 Carotid aneurysm, left 09/13/2015 Overview: S/p coil embolization Cerebral aneurysm, nonruptured 09/05/2015 AAA (abdominal aortic aneurysm) 06/20/2015 Overview: S/p repair Bilateral carotid artery disease 06/20/2015 Medical home patient encounter 05/19/2014 Hypertriglyceridemia 05/16/2012 CORON ATHEROSCL [place] CORON VESSEL 07/11/2010 Dyslipidemia, goal LDL below [...] as of this encounter Progress Notes * YonatanWiliam, DO - 11/05/2023 1:40 PM EDT Interventional Pain Follow-up Appointment Subjective: Chief Complaint: Chief Complaint Patient presents with Back Pain Right low intermittent back sharp pain intermittent on left low back denies radiating. Numbness/tingling/burning in bilateral feet. Weakness in bilateral legs when sitting in certain positions x 2-3 months no trauma History of Present Illness: Mp Vaughn is a 73 year old year-old male presents for follow-up of prior L3/4 ANDERS performedon the right side. These were previously effective but this time did not provide much relief. The pain is located in the right side of his lower back, and it does radiate to the right hip anteriorly. Improves with rest. He describes it as a sharp painful sensation a/w weakness of both legs. Pain severity today 1/10, most severe 7/10 recently. Notable history of L3/4 severe spinal stenosis with multiple areas of NF stenosis. Reports weakness, increased of his RLE. Denies numbness. Denies bowel or bladder incontinence. Denies symptoms of saddle anesthesia. Denies fevers/chills/night sweats. Denies unintentional weight loss. Review of Systems: A focused 12-pt ROS were of reviewed with the patient including difficulty with sleep, snoring, aspiration history, dysphagia, stomach pain, nausea and vomiting, severe headaches, confusion, open skin lesions or wounds, chest pain, shortness of breath, excessive thirst, somnolence, dysuria, incomplete bladder emptying, easy bruising, recent clotting problems or bleeding, depression or rushed thoughts unless noted previously. Allergies, Medications, Past Medical History, Past Surgical History reviewed and documented in Epic. See detailed report if needed. Pertinent Labs/Test Results: INR Date Value 12/20/2022 0.9 08/07/2016 0.96 No results found for: "CREATININE" Hemoglobin A1C (%) Date Value 05/11/2021 5.5 No results found for: "AMPHETAMINE", "BARBITURATES", "BENZODIAZEPINES", "BUPRENORPHINE", "METHADONE", "OPIATES", "OXYCODONE", "PHENCYCLIDINE", "CANNABINOIDS", "TOX SCREEN", "URINE", "TOX SCREEN-SERUM", "TOX SCREEN, URINE" Imaging: I personally reviewed the imaging and my findings were . Objective Physical Exam: Vital Signs: There were no vitals taken for this visit. There is no height or weight on file to calculate BMI. General: No apparent distress. Eyes: pupils equal and round, sclera white, pupils midsize. ENT: mucous membranes moist Resp: Non-labored breathing CV: Extremities warm and well-perfused. Psych: Oriented; affect warm, insight good. Skin: No rashes or lesions appreciated on exposed skin Neuromuscular Exam: Inspection: Rises from a seated position with mild difficulty. Gait: Ambulates unassisted; gait is antalgic. Palpation: Palpation does not reveal midline lumbar tenderness; There is not lumbar paraspinal tenderness bilaterally regions. Trigger points were not identified. PSIS tenderness: none GTB tenderness: none Spine range of motion: There is pain with lumbar extension There is not pain with lumbar oblique extension to the right There is not pain with lumbar oblique extension to the left There is not pain with lumbar flexion Range of motion is grossly intact at the hips, knees and ankles bilaterally. Motor: Motor strength exam reveals: Lower extremities: Right Left Hip flexion: L1,L2,L3 5/5 5/5 Add hips: L2L3 5/5 5/5 Knee flexion: S1 5/5 5/5 Knee extension: L3,L4 5/5 5/5 Dorsiflexion: L4,L5 5/5 5/5 Plantarflexion: S1 5/5 5/5 EHL: L5 5/5 5/5 Sensory: Sensory exam to light touch is intact in the L2-S1 dermatomes in the bilateral lower extremities. Reflexes: Deep tendon reflexes, Right 2+ patellar, 2+ Achilles, Left 2+ patellar, 2+ Achilles, No ankle clonus. Sitting straight leg test Negative on the right Negative on the left. Rodriguez's test: Negative on the right Negative on the left. Modified Gaenslen's test Negative on the right Negative on the left. Pelvic Distraction Negative Pelvic Compression Negative Assessment: Mp is a 73 year old year-old male with: Spinal stenosis of lumbar region with neurogenic claudication (Primary) - MRI L SPINE WO CONTRAST; Future; Expected date: 11/06/2023 - Venlafaxine HCl ER 37.5 MG Oral Tablet Extended Release 24 Hour; Take 1 Tablet by mouth in the morning. DDD (degenerative disc disease), lumbar - MRI L SPINE WO CONTRAST; Future; Expected date: 11/06/2023 - Venlafaxine HCl ER 37.5 MG Oral Tablet Extended Release 24 Hour; Take 1 Tablet by mouth in the morning. Lumbar radiculopathy - MRI L SPINE WO CONTRAST; Future; Expected date: 11/06/2023 - Venlafaxine HCl ER 37.5 MG Oral Tablet Extended Release 24 Hour; Take 1 Tablet by mouth in the morning. Plan: Likely indicates a worsening of his lumbar spinal stenosis. Ordered new MRI of the lumbar spine given progressive RLE weakness reported with known history of severe spinal stenosis. Will start venlafaxine ER 37.5mg daily. Risks, benefits, alternatives to pharmacotherapy reviewed at length including the most common side effects. The patient was provided the opportunity to ask questions which were answered to his voiced understanding. The patient has opted to proceed following this discussion. Medical Decision Making I spent 30 minutes reviewing the patient's prior visit office notes, procedure notes, images, conducting the history and physical examination, formulating a care plan, considering interventional options, drafting orders and medication prescriptions as well as recording the medical documentation. Wiliam Tam DO [facility], [address] [address] documented in this encounter Nursing Notes * Izzy Duff LPN - 11/05/2023 1:28 PM EDT Patient presents for Right low intermittent back sharp pain intermittent on left low back denies radiating. Numbness/tingling/burning in bilateral feet. Weakness in bilateral legs when sitting in certain positions x 2-3 months no trauma Last injection was 07/31/23 documented in this encounter Plan of Treatment Upcoming Encounters Date Type Department Care Team (Late st Contact Info) Description 11/11/2023 10:00 AM EDT Imaging Radiology [address] [facility] [place] [address] 11/12/2023 2:30 PM EDT Telemedicine Neurosurgery, [place] [address] [place] [address] Dashawn Haines MD [address] [place] [address] 11/14/2023 7:30 AM EDT Laboratory Laboratory [facility] [address] [facility] [place] [phone] Diane, Lab [facility] [address] [facility] [place] [address] 11/14/2023 7:45 AM EDT Office Visit Hematology/Oncology [facility] [address] [place] [phone] Lasha Christine MD [address] [facility] [place] [address] 11/14/2023 8:15 AM EDT Hem/Onc Treatment Hematology/Oncology Treatment, [place] [address] [place] [phone] Diane, Chair 7 Hem Onc [address] [place] [address] 11/28/2023 11:45 AM EDT Imaging Radiology [address] 132 [facility] [place] [address] 12/05/2023 9:30 AM EDT Office Visit Interventional Pain Center, [facility] [address] [facility] [place] [address] Leeanna Centeno PA-C [address] [place] [address] 12/17/2023 10:00 AM EDT Appointment Vascular Lab [address] [address] 12/17/2023 10:30 AM EDT Office Visit Vascular Surg [place] [address] [place] [address] Margarito Cabrera MD [facility] [place] [address] Scheduled Orders Name Type Priority Associated Diagnoses Orde r Schedule MRI L SPINE WO CONTRAST Medical Imaging Routine DDD (degenerative disc disease), lumbar Lumbar radiculopathy Spinal stenosis of lumbar region with neurogenic claudication Expected: 11/06/2023, Expires: 02/05/2024 Scheduled Procedures Name Priority Associated Diagnoses Date/Ti [...] this encounter Medical Devices Implanted Type Area Rail Express Clerk Device Identifier Shelf Expiration Date Model / Serial / Lot Stent Main Body Vxwk-73-62-[id number] - [id number] Implanted:Qty: 1 on 06/10/2014 by Ronal [place] [facility] Aorta [employer] 04/07/2016 TFFB-24-8 2-ZT / / Graft Iliac Leg Spirlz [id number] - [id number] Implanted:Qty: 1 on 06/10/2014 by Ronal Gal[place] [facility] [place]: Aorta [employer] 10/09/2015 [id number] / / [id number] Description: Graft Iliac Leg Spirlz [id number] - [id number] Implanted:Qty: 1 on 06/10/2014 by Ronal Galleg[place] [facility] [place]: Femoral Artery [employer] 11/07/2016 [id number] / / [id number] Stent Polmer 29mm P3110 - [id number] Implanted:Qty: 1 on 06/10/2014 by Ronal Gallegos [place] [facility] [place]/A: Aorta JNJ : CORDIS ENDOVASCULAR 07/26/2018 [id number] / / [id number] Codman Orbit Galaxy Coil 2.5mm X 3.5cm Implanted:Qty: 1 on 09/12/2015 by Arik Shin MD [place] [facility] [place]: Head LENORA [employer] LENORA CODMAN 02/26/2017 [id number] / [id number] / [id number] Description:COMPLEX XTRASOFT detachable coil deployed left internal carotid artery Codman Orbit Galaxy Coil 2.5mm X 2.5cm Implanted:Qty: 1 on 09/12/2015 by Arik Shin MD [place] [facility] [place]: Head LENORA [employer] LENORA CODMAN 01/27/2016 [id number] / [id number] / [id number] Description:COMPLEX XTRASOFT detachable coil deployed left internal carotid artery aneurysm Codman [place] 2 Stent 4mm X 30mm Implanted:Qty: 1 on 09/12/2015 by Arik Shin MD [place] [facility] [place]: Head LENORA & LENORA DEP 03/26/2018 [id number] / [id number] / [id number] Description:Vascular reconst ruction device deployed in left internal carotid artery Codman Orbit Galaxy Coil 6mm X 20cm Implanted:Qty: 1 on 09/12/2015 by Arik Shin MD [place] [facility] [place]: Head LENORA & LENORA [facility] 09/26/2016 [id number] / [id number] / [id number] Description:COMPLEX FILL det achable coil deployed left internal carotid artery aneurysm Codman Orbit Galaxy Coil 4mm X 10cm Implanted:Qty: 1 on 09/12/2015 by Arik Shin MD [place] [facility] [place]: Head LENORA & L[facility]ORA [facility] 10/27/2015 [id number] / [id number] / [id number] Description:COMPLEX XTRASOFT detachable coil deployed left internal carotid artery aneurysm Codman Orbit Galaxy Coil 3.5mm X 9cm Implanted:Qty: 1 on 09/12/2015 by Arik Shin MD [place] [facility] [place]: Head LENORA & LENORA [facility] 12/28/2015 [id number] / [id number] / [id number] Description:COMPLEX XTRASOFT detachable coil deployed left internal carotid artery aneurysm Codman Orbit Galaxy Coil 3mm X 6cm Implanted:Qty: 1 on 09/12/2015 by Arik Shin MD [place] [facility] [place]: Head LENORA & LENORA [facility] 04/28/2017 [id number] / [id number] / [id number] Description:COMPLEX XTRASOFT detachable coil deployed left internal carotid artery aneurysm Lens Intraoc 21.0 - [id number] - [id number] Implanted:Qty: 1 on 11/08/2020 by Yuri Bradley MD at OR [facility] Left: Eye BAUSCH & LOMB 06/26/2025 [id number] / [id number] / [id number] Lens Intraoc 20.5 - [id number] - [id number] Implanted:Qty: 1 on 11/22/2020 by Yuri Bradley MD at OR [facility] Right: Eye BAUSCH & LOMB 07/27/2025 [id number] / [id number] / [id number] Clip Quick 2.8mm 230cm - [id number] Implanted:Qty: 3 on 03/29/2021 by Luciana Fernandez MD at ENDOSCOPY [facility] [email or web address] 08/27/2023 HX-202UR. A / / Sureclip 16mm 235cm - [id number] Implanted:Qty: 2 on 05/07/2022 by Luciana Fernandez MD at ENDOSCOPY [facility] Colon MICRO TECH ENDOSCOPY 07/06/2024 [id number] / / Power Port 8fr Sngl Lumen Plas - [id number] Implanted:Qty: 1 on 01/30/2023 by Koko Santiago MD at OR [facility] N/A: Chest CR BARD : PERIPHERAL VASCULAR 07/27/2024 [id number] / / [id number] Power Port 8fr Sngl Lumen Plas - [id number] Implanted:Qty: 1 on 01/30/2023 by Koko Santiago MD at OR [facility] CR BARD : PERIPHERAL VASCULAR [id number] 07/27/2024 [id number] / / [id number] documented as of this encounter Visit Diagnoses Diagnosis Spinal stenosis of lumbar region with neurogenic claudication- Primary Spinal stenosis, lumbar region, with neurogenic claudication DDD (degenerative disc disease), lumbar Degeneration of lumbar or lumbosacral intervertebral disc Lumbar radiculopathy Thoracic or lumbosacral neuritis or radiculitis, unspecified documented in this encounter Advance Directives * Full Code (Latest Code Status on File) Date Activated Date Inactivated Comments 09/12/2015 11:01 AM 09/13/2015 2:50 PM This order reflects the patients wishes and were consensually agreed upon. * Full Code Date Activated Date Inactivated Comments 06/10/2014 10:48 AM 06/11/2014 8:37 PM This order reflects the patients wishes and were consensually agreed upon. Care Teams Auto Parts Delivery Driver Relationship Specialty Start Date End Date Mauro Watson DO [address] [place] [address] PCP - General Family Medicine 04/13/19 documented as of this encounter
--- OUTSIDE RECORDS SUMMARY | 2024-02-19 09:30 | External Medical Summary | Summary of Care ---
Author Name Unknown Organization [facility] Address [address] [place] [address] Phone [phone] Care Team Providers Care Aws Solution Architect Name Role Phone Watson Mauro Brewer DO Primary Care Provider Reason for Visit * Reason Onset Date Comments Pre Cert/Prior Auth 11/05/2023 Encounter Details Date Type Department Care Team ([facility] st Contact Info) Description 11/05/[address] [facility] [address] [place] [address] Leesa Shabazz LPN Pre Cert/Prior Auth Allergies Active Allergy Reactions Criticality Noted Date [...] before bedtime. 270 Tablet 3 10/29/2023 Active documented as of this encounter (statuses [...] patient encounter 05/19/2014 Hypertriglyceridemia 05/16/2012 CORON ATHEROSCL [place] CORON VESSEL 07/11/2010 Dyslipidemia, goal LDL below [...] encounter Miscellaneous Notes * Telephone Encounter - Leesa Shabazz LPN - 11/05/2023 1:24 PM EDT Attempted to start Prior auth on CMM for Gabapentin 600 mg, was unable for CMM to load clinical questions. Contacted pt's [employer] Plan by phone: at . Gabapentin 600 mg tab prior authorization submitted by phone for Urgent review. Should receive decision within 24 hrs. [id number]. My g sent to pt to notify. documented in this encounter Plan of Treatment Upcoming Encounters Date Type Department Care Team (Late st Contact Info) Description 11/11/2023 10:00 AM EDT Imaging Radiology [address], [address] [place] [address] 11/12/2023 2:30 PM EDT Telemedicine Neurosurgery, [address] [place] [address] Dashawn Haines MD [address] [place] [address] 11/14/2023 7:30 AM EDT Laboratory Laboratory [facility] [address] [place] [address] Diane, Lab [address] [facility] [place] [address] 11/14/2023 7:45 AM EDT Office Visit Hematology/Oncology [facility] [address] [place] [phone] Lasha Christine MD [address] [place] [address] 11/14/2023 8:15 AM EDT [facility] [address] [place] [phone] Diane, Chair [address] Hem Onc [address] [place] [address] 12/17/2023 10:00 AM EDT Appointment Vascular Lab [address] [address] 12/17/2023 10:30 AM EDT Office Visit Vascular Surg [place] [address] [place] [address] Margarito Cabrera MD [facility] [place] [address] Scheduled Procedures Name Priority Associated Diagnoses Date/Ti [...] 02/21/2022, Additional history exists GFR 10/23/2024 2023, 0 09/2023, 09/12/2023, Additional history exists Albumin/Creatinine Ratio [...] this encounter Medical Devices Implanted Type Area Receptionist Telephone Operator Device Identifier Shelf Expiration Date Model / Serial / Lot Stent Main Body Tplq-06-46-Zt - [id number] Implanted:Qty: 1 on 06/10/2014 by Ronal Gallegos MD at [place] [facility] Aorta [employer] 04/07/2016 TFFB-24-8 2-ZT / / Graft Iliac Leg Spirlz 94m63bp - [id number] Implanted:Qty: 1 on 06/10/2014 by Ronal Gallegos MD at [place] [facility] Right: Aorta [employer] 10/09/2015 [id number] / / [id number] Description: Graft Iliac Leg Spirlz 77g31mt - [id number] Implanted:Qty: 1 on 06/10/2014 by Ronal Gallegos MD at [place] [facility] Right: Femoral Artery [employer] 11/07/2016 [id number] / / [id number] Stent Polmer 29mm P3110 - [id number] Implanted:Qty: 1 on 06/10/2014 by Ronal Gallegos MD at [place] [facility] N/A: Aorta JNJ : CORDIS ENDOVASCULAR 07/26/2018 P3110 / / [id number] Codman Orbit Galaxy Coil 2.5mm X 3.5cm Implanted:Qty: 1 on 09/12/2015 by Arik Shin MD at [place] [facility] Left: Head LENORA & LENORA [facility] 02/26/2017 [id number] / [id number] / [id number] Description:COMPLEX XTRASOFT detachable coil deployed left internal carotid artery Codman Orbit Galaxy Coil 2.5mm X 2.5cm Implanted:Qty: 1 on 09/12/2015 by Arik Shin MD at [place] [facility] Left: Head LENORA & LENORA [facility] 01/27/2016 [id number] / [id number] / [id number] Description:COMPLEX XTRASOFT detachable coil deployed left internal carotid artery aneurysm Codman [place] 2 Stent 4mm X 30mm Implanted:Qty: 1 on 09/12/2015 by Arik Shin MD at [place] [facility] Left: Head LENORA & LENORA DEPUY 03/26/2018 [id number] / [id number] / [id number] Description:Vascular reconst ruction device deployed in left internal carotid artery Codman Orbit Galaxy Coil 6mm X 20cm Implanted:Qty: 1 on 09/12/2015 by Arik Shin MD at [place] [facility] Left: Head LENORA [employer] LENORA CODMAN 09/26/2016 [id number] / [id number] / [id number] Description:COMPLEX FILL det achable coil deployed left internal carotid artery aneurysm Codman Orbit Galaxy Coil 4mm X 10cm Implanted:Qty: 1 on 09/12/2015 by Arik Shin MD at [place] [facility] Left: Head LENORA & LENORA CODMAN 10/27/2015 [id number] / [id number] / [id number] Description:COMPLEX XTRASOFT detachable coil deployed left internal carotid artery aneurysm Codman Orbit Galaxy Coil 3.5mm X 9cm Implanted:Qty: 1 on 09/12/2015 by Arik Shin MD at [place] [facility] Left: Head LENORA & LENORA CODMAN 12/28/2015 [id number] / [id number] / [id number] Description:COMPLEX XTRASOFT detachable coil deployed left internal carotid artery aneurysm Codman Orbit Galaxy Coil 3mm X 6cm Implanted:Qty: 1 on 09/12/2015 by Arik Shin MD at [place] [facility] Left: Head LENORA & LENORA CODMAN 04/28/2017 [id number] / [id number] / [id number] Description:COMPLEX XTRASOFT detachable coil deployed left internal carotid artery aneurysm Lens Intraoc 21.0 - [id number] - [id number] Implanted:Qty: 1 on 11/08/2020 by Yuri Bradley MD at [place] [facility] Left: Eye BAUSCH & LOMB 06/26/2025 [id number] / [id number] / [id number] Lens Intraoc 20.5 - [id number] - [id number] Implanted:Qty: 1 on 11/22/2020 by Yuri Bradley MD at OR [facility] Right: Eye BAUSCH & LOMB 07/27/2025 [id number] / [id number] / [id number] Clip Quick 2.8mm 230cm - [id number] Implanted:Qty: 3 on 03/29/2021 by Luciana Fernandez MD at ENDOSCOPY [facility] [employer] 08/27/2023 HX-202UR. A / / Sureclip 16mm 235cm - [id number] Implanted:Qty: 2 on 05/07/2022 by Luciana Fernandez MD at ENDOSCOPY [facility] Colon MICRO TECH ENDOSCOPY 07/06/2024 [id number] / / Power Port 8fr Sngl Lumen Plas - [id number] Implanted:Qty: 1 on 01/30/2023 by Koko Santiago MD at OR [facility] N/A: Chest CR BARD : PERIPHERAL VASCULAR 07/27/2024 [id number] / / [id number] Power Port 8fr Sngl Lumen Plas - [id number] Implanted:Qty: 1 on 01/30/2023 by Koko Santiago MD at OR [facility] CR BARD : PERIPHERAL VASCULAR [id number] 07/27/2024 [id number] / / [id number] documented as of this encounter Advance Directives [...] and were consensually agreed upon. Care Teams Aws Solution Architect Relationship Specialty Start Date End Date Mauro Watson DO [address] [place] [address] PCP - General Family Medicine 04/13/19 documented as of this encounter
--- OUTSIDE RECORDS SUMMARY | 2024-02-19 09:30 | External Medical Summary | Summary of Care ---
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 Effective dates: 09/05/2023 to 11/03/2024. My G sent to pt. * Telephone Encounter - Leesa Shabazz LPN - 11/05/2023 1:24 PM EDT Attempted to start Prior auth on CMM for Gabapentin 600 mg, was unable for CMM to load clinical questions. Contacted pt's [employer] Plan by phone: at . Gabapentin 600 mg tab prior authorization submitted by phone for Urgent review. Should receive decision within 24 hrs. [id number]. My g sent to pt to notify. documented in this encounter Plan of Treatment Upcoming Encounters Date Type Department Care Team (Late st Contact Info) Description 11/11/2023 10:00 AM EDT Imaging Radiology [address] 132 [facility] [place] [address] 11/12/2023 2:30 PM EDT Telemedicine Neurosurgery, [place] [address] [place] [address] Dashawn Haines MD [address] [place] [address] 11/14/2023 7:30 AM EDT Laboratory Laboratory [facility] 200 [facility] [place] [phone] Diane, Lab [facility] [address] [facility] [place] [address] 11/14/2023 7:45 AM EDT Office Visit Hematology/Oncology [facility] [address] [place] [phone] Lasha Christine MD 200 [facility] [place] [address] 11/14/2023 8:15 AM EDT Hem/Onc Treatment Hematology/Oncology Treatment, [place] [address] [place] [phone] Diane, Chair 7 Hem Onc [address] [place] [address] 11/28/2023 11:45 AM EDT Imaging Radiology [address] 132 [facility] [place] [address] 12/05/2023 9:30 AM EDT Office Visit Interventional Pain Center, [facility] 132 [facility] [place] [address] Leeanna Centeno PA-C [address] [place] [address] 12/17/2023 10:00 AM EDT Appointment Vascular Lab [place] [facility] [address] [place] [address] 12/17/2023 10:30 AM EDT Office Visit Vascular Surg [place] [facility] [address] [place] [address] Margarito Cabrera MD [address] [place] [address] Scheduled Procedures Name Priority Associated Diagnoses Date/Ti [...] this encounter Medical Devices Implanted Type Area Creeler Device Identifier Shelf Expiration Date Model / Serial / Lot Stent Main Body Kchp-95-22-Zt - [id number] Implanted:Qty: 1 on 06/10/2014 by Ronal Gallegos MD at OR [facility] Aorta [employer] 04/07/2016 TFFB-24-8 2-ZT / / Graft Iliac Leg Spirlz [id number] - [id number] Implanted:Qty: 1 on 06/10/2014 by Ronal Gallegos MD at OR [facility] Right: Aorta [employer] 10/09/2015 [id number] / / [id number] Description: Graft Iliac Leg Spirlz 17g84ii - [id number] Implanted:Qty: 1 on 06/10/2014 by Ronal Gallegos MD at OR [facility] Right: Femoral Artery [employer] 11/07/2016 [id number] / / [id number] Stent Polmer 29mm P3110 - [id number] Implanted:Qty: 1 on 06/10/2014 by Ronal Gallegos MD at OR [facility] N/A: Aorta JNJ : CORDIS ENDOVASCULAR 07/26/2018 P3110 / / [id number] Codman Orbit Galaxy Coil 2.5mm X 3.5cm Implanted:Qty: 1 on 09/12/2015 by Arik Shin MD at OR [facility] Left: Head [employer]A [employer]EN[employer]A CODMAN 02/26/2017 [id number] / [id number] / [id number] Description:COMPLEX XTRASOFT detachable coil deployed left internal carotid artery Codman Orbit Galaxy Coil 2.5mm X 2.5cm Implanted:Qty: 1 on 09/12/2015 by Arik Shin MD at OR [facility] Left: Head [facility] 01/27/2016 [id number] / [id number] / [id number] Description:COMPLEX XTRASOFT detachable coil deployed left internal carotid artery aneurysm Codman Eek 2 Stent 4mm X 30mm Implanted:Qty: 1 on 09/12/2015 by Arik Shin MD at OR [facility] Left: Head LENORA [employer] LENORA DEPUY 03/26/2018 [id number] / [id number] / [id number] Description:Vascular reconst ruction device deployed in left internal carotid artery Codman Orbit Galaxy Coil 6mm X 20cm Implanted:Qty: 1 on 09/12/2015 by Arik Shin MD at OR [facility] Left: Head [facility] 09/26/2016 [id number] / [id number] / [id number] Description:COMPLEX FILL det achable coil deployed left internal carotid artery aneurysm Codman Orbit Galaxy Coil 4mm X 10cm Implanted:Qty: 1 on 09/12/2015 by Arik Shin MD at OR [facility] Left: Head LENORA & L[facility]ORA [facility] 10/27/2015 [id number] / [id number] / [id number] Description:COMPLEX XTRASOFT detachable coil deployed left internal carotid artery aneurysm Codman Orbit Galaxy Coil 3.5mm X 9cm Implanted:Qty: 1 on 09/12/2015 by Arik Shin MD at OR [facility] Left: Head LENORA & L[facility]ORA [facility] 12/28/2015 [id number] / [id number] / [id number] Description:COMPLEX XTRASOFT detachable coil deployed left internal carotid artery aneurysm Codman Orbit Galaxy Coil 3mm X 6cm Implanted:Qty: 1 on 09/12/2015 by Arik Shin MD at OR [facility] Left: Head L[employer]A [employer] LENORA CODMAN 04/28/2017 [id number] / [id number] / [id number] Description:COMPLEX XTRASOFT detachable coil deployed left internal carotid artery aneurysm Lens Intraoc 21.0 - [id number] - [id number] Implanted:Qty: 1 on 11/08/2020 by MirnaYuri camargo MD at OR [facility] Left: Eye BAUSCH & LOMB 06/26/2025 [id number] / [id number] Lens Intraoc 20.5 - [id number] - [id number] Implanted:Qty: 1 on 11/22/2020 by Yuri Bradley MD at OR [facility] Right: Eye BAUSCH & LOMB 07/27/2025 [id number] / [id number] Clip Quick 2.8mm 230cm - [id number] Implanted:Qty: 3 on 03/29/2021 by Luciana Fernandez MD at ENDOSCOPY [facility] [employer] 08/27/2023 HX-202UR. A / / Sureclip 16mm 235cm - [id number] Implanted:Qty: 2 on 05/07/2022 by Luciana Fernandez MD at ENDOSCOPY [facility] Colon MICRO TECH ENDOSCOPY 07/06/2024 [id number] / / Power Port 8fr Sngl Lumen Plas - [id number] Implanted:Qty: 1 on 01/30/2023 by Koko Santiago MD at OR [facility] N/A: Chest CR BARD : PERIPHERAL VASCULAR 07/27/2024 [id number] / / [id number] Power Port 8fr Sngl Lumen Plas - [id number] Implanted:Qty: 1 on 01/30/2023 by Koko Santiago MD at OR [facility] CR BARD : PERIPHERAL VASCULAR [id number] 07/27/2024 [id number] / / [id number] documented as of this encounter Advance Directives [...] and were consensually agreed upon. Care Teams Dyeing Machine Tender Relationship Specialty Start Date End Date Mauro Watson DO [facility] [address] [place] [address] PCP - General Family Medicine 04/13/19 documented as of this encounter
--- OUTSIDE RECORDS SUMMARY | 2024-02-19 09:30 | External Medical Summary | Summary of Care ---
Author Name Unknown Organization [facility] Address [address] [place] [address] Phone [phone] Care Team Providers Care Hardware Technician Name Role Phone Mauro Watson DO [...] INJECTION RI FOSAPREPITANT INJECTION Lasha Christine MD [address] [place] [id number] Anc Hem/Onc [address] [address] Referral ID Status Reason Start Date Expiration Date V isits Requested Visits Authorized [id number] Authorized 08/22/2023 04/28/2099 999 99 Encounter Details Date Type Department Care Team (Latest Contact Info) Description 2023 8:45 AM EDT Hem/Onc Treatment Hematology/Oncolog y Treatment, [address] [phone] Diane, Chair 2 Hem On[address] [place] [address] Encounter for antineoplastic chemotherapy*; Metastatic carcinoma involving [...] EGFR 72 Lumbar radiculopathy 05/27/2019 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 05/05/2019 History of colon polyps 08/12/2018 ACEI/ARB contraindicated 09/21/2016 Carotid aneurysm, left 09/13/2015 Overview: S/p coil embolization Cerebral aneurysm, nonruptured 09/05/2015 AAA (abdominal aortic aneurysm) 06/20/2015 Overview: S/p repair Bilateral carotid artery disease 06/20/2015 Medical home patient encounter 05/19/2014 Hypertriglyceridemia 05/16/2012 CORON ATHEROSCL [place] CORON VESSEL 07/11/2010 Dyslipidemia, goal LDL below [...] 11/11/2023 10:00 AM EDT Imaging [facility] [address] [facility] [place] [address] 11/12/2023 2:30 PM EDT Telemedicine Neurosurgery, [place] [address] [place] [address] Dashawn Haines MD [address] [place] [address] 11/14/2023 7:30 AM EDT Laboratory Laboratory [facility] [address] [place] [phone] Diane, Lab [facility] 200 [facility] [place] [address] 11/14/2023 7:45 AM EDT Office Visit Hematology/Oncology [facility] [address] [place] [phone] Lasha Christine MD [address] [place] [address] 11/14/2023 8:15 AM EDT Hem/Onc Treatment Hematology/Oncology Treatment, [place] [address] [place], [place] [phone] Diane, Chair 7 Hem Onc [facility] 200 [facility] [place], [place] [address] 11/28/2023 11:45 AM EDT Imaging Radiology [address] [place] [address] 12/05/2023 9:30 AM EDT Office Visit Interventional Pain Center, [facility] [address] [place] [address] Leeanna Centeno PA-C [address] [place] [address] 12/17/2023 10:00 AM EDT Appointment Vascular Lab [facility], [place] [address] [place] [address] 12/17/2023 10:30 AM EDT Office Visit Vascular Surg [facility] [address] [place] [address] Margarito Cabrera MD [address] [place] [address] Scheduled Procedures Name Priority Associated Diagnoses Date/Ti [...] this encounter Medical Devices Implanted Type Area Bilingual School Psychologist Device Identifier Shelf Expiration Date Model / Serial / Lot Stent Main Body Mxro-56-51-Zt - [id number] Implanted:Qty: 1 on 06/10/2014 by Ronal Gallegos MD at [place] [facility] Aorta [employer] 04/07/2016 TFFB-24-8 2-ZT / / Graft Iliac Leg Spirlz 31w53kz - [id number] Implanted:Qty: 1 on 06/10/2014 by Ronal Gallegos MD at [place] [facility] Right: Aorta [employer] 10/09/2015 [id number] / / [id number] Description: Graft Iliac Leg Spirlz 14f40lg - [id number] Implanted:Qty: 1 on 06/10/2014 by Ronal Gallegos MD at [place] [facility] Right: Femoral Artery [employer] 11/07/2016 [id number] / / [id number] Stent Polmer 29mm P3110 - [id number] Implanted:Qty: 1 on 06/10/2014 by Ronal Gallegos MD at [place] [facility] N/A: Aorta JNJ : CORDIS ENDOVASCULAR 07/26/2018 P3110 / / [id number] Codman Orbit Galaxy Coil 2.5mm X 3.5cm Implanted:Qty: 1 on 09/12/2015 by Arik Shin MD at OR [facility] Left: Head LENORA & [employer] 02/26/2017 [id number] / [id number] / [id number] Description:COMPLEX XTRASOFT detachable coil deployed left internal carotid artery Codman Orbit Galaxy Coil 2.5mm X 2.5cm Implanted:Qty: 1 on 09/12/2015 by Arik Shin MD at [place] [facility] Left: Head LENORA & LENORA CODMAN 01/27/2016 [id number] / [id number] / [id number] Description:COMPLEX XTRASOFT detachable coil deployed left internal carotid artery aneurysm Codman [place] 2 Stent 4mm X 30mm Implanted:Qty: 1 on 09/12/2015 by Arik Shin MD at OR [facility] Left: Head LENORA & LENORA DEP 03/26/2018 [id number] / [id number] / [id number] Description:Vascular reconst ruction device deployed in left internal carotid artery Codman Orbit Galaxy Coil 6mm X 20cm Implanted:Qty: 1 on 09/12/2015 by Arik Shin MD at OR [facility] Left: Head L[employer]A [employer] LEN[employer]A CODMAN 09/26/2016 [id number] / [id number] / [id number] Description:COMPLEX FILL det achable coil deployed left internal carotid artery aneurysm Codman Orbit Galaxy Coil 4mm X 10cm Implanted:Qty: 1 on 09/12/2015 by Arik Shin MD at [place] [facility] Left: Head LENORA & LENORA [facility] 10/27/2015 [id number] 0 / [id number] / [id number] Description:COMPLEX XTRASOFT detachable coil deployed left internal carotid artery aneurysm Codman Orbit Galaxy Coil 3.5mm X 9cm Implanted:Qty: 1 on 09/12/2015 by Arik Shin MD at [place] [facility] Left: Head LENORA & LENORA [facility] 12/28/2015 [id number] / [id number] / [id number] Description:COMPLEX XTRASOFT detachable coil deployed left internal carotid artery aneurysm Codman Orbit Galaxy Coil 3mm X 6cm Implanted:Qty: 1 on 09/12/2015 by Arik Shin MD at [place] [facility] Left: Head LENORA & LENORA [facility] 04/28/2017 [id number] / [id number] / [id number] Description:COMPLEX XTRASOFT detachable coil deployed left internal carotid artery aneurysm Lens Intraoc 21.0 - [id number] - [id number] Implanted:Qty: 1 on 11/08/2020 by Yuri Bradley MD at OR [facility] Left: Eye BAUSCH & LOMB 06/26/2025 [id number] / [id number] / [id number] Lens Intraoc 20.5 - [id number] - [id number] Implanted:Qty: 1 on 11/22/2020 by Yuri Bradley MD at OR [facility] Right: Eye BAUSCH & LOMB 07/27/2025 [id number] / [id number] / [id number] Clip Quick 2.8mm 230cm - [id number] Implanted:Qty: 3 on 03/29/2021 by Luciana Fernandez MD at ENDOSCOPY [facility] [employer] 08/27/2023 HX-202UR. A / / Sureclip 16mm 235cm - [id number] Implanted:Qty: 2 on 05/07/2022 by Luciana Fernandez MD at ENDOSCOPY [facility] Colon MICRO TECH ENDOSCOPY 07/06/2024 [id number] / / Power Port 8fr Sngl Lumen Plas - [id number] Implanted:Qty: 1 on 01/30/2023 by Koko Santiago MD at OR [facility] N/A: Chest CR BARD : PERIPHERAL VASCULAR 07/27/2024 [id number] / / [id number] Power Port 8fr Sngl Lumen Plas - [id number] Implanted:Qty: 1 on 01/30/2023 by Koko Santiago MD at OR [facility] CR BARD : PERIPHERAL VASCULAR [id number] 07/27/2024 [id number] / / [id number] documented as of this encounter Visit Diagnoses [...] and were consensually agreed upon. Care Teams Hardware Technician Relationship Specialty Start Date End Date Mauro Watson DO [address] [place] [address] PCP - General Family Medicine 04/13/19 documented as of this encounter
--- OUTSIDE RECORDS SUMMARY | 2024-02-19 09:31 | External Medical Summary | Summary of Care ---
Author Name Unknown Organization [facility] Address [address] [place] [address] Phone [phone] Care Team Providers Care Electromechanical Equipment Assembler Name Role Phone Mauro Watson DO [...] INJECTION SC FOSAPREPITANT INJECTION Lasha Christine MD [address] [place] [address] Anc Hem/Onc [address] [address] Referral ID Status Reason Start Date Expiration Date V isits Requested Visits Authorized [id number] Authorized 08/22/2023 04/28/2099 999 99 Encounter Details Date Type Department Care Team (Latest Contact Info) Description 2023 8:45 AM EDT Hem/Onc Treatment Hematology/Oncolog y Treatment, [address] [address] Diane, Chair 2 Hem Onc [address] [place] [address] Encounter for antineoplastic chemotherapy*; 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); Malignant neoplasm of left lung, unspecified part of lung (HCC) Allergies Active Allergy Reactions Criticality Noted Date Comments Aspirin Bleeding High 11/26/2011 Significant hemorroidal bleed on aspirin,high doses Duloxetine Hcl Hypertension 01/26/2020 documented as of this encounter (statuses as of 11/02/2023) Medications Medication Sig Dispensed Refills Start Date [...] as of this encounter (statuses as of 11/02/2023) Active Problems Problem Noted Date Diagnosed Date Malignant neoplasm of left lung 08/23/2023 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 01/21/2023 Encounter for antineoplastic chemotherapy 2022 Medical marijuana use 08/26/2021 CKD (chronic kidney disease), stage II 2 Overview: EGFR 72 Lumbar radiculopathy 05/27/2019 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 05/05/2019 History of colon polyps 08/12/2018 ACEI/ARB contraindicated 09/21/2016 Carotid aneurysm, left 09/13/2015 Overview: S/p coil embolization Cerebral aneurysm, nonruptured 09/05/2015 AAA (abdominal aortic aneurysm) 06/20/2015 Overview: S/p repair Bilateral carotid artery disease 06/20/2015 Medical home patient encounter 05/19/2014 Hypertriglyceridemia 05/16/2012 CORON ATHEROSCL [place] CORON VESSEL 07/11/2010 Dyslipidemia, goal LDL below [...] as of this encounter (statuses as of 11/02/2023) Resolved Problems Problem Noted Date Diagnosed Date [...] as of this encounter (statuses as of 11/02/2023) Immunizations Name Administration Dates Next Due COVID-19 [...] Care Team (Late st Contact Info) Description 11/02/2023 10:00 AM EDT Imaging Radiology [facility] [address] 132 [facility] [place] [address] 11/05/2023 3:25 PM EDT Office Visit Interventional Pain Center, [facility] 132 [facility] [place] [address] Wiliam Tam Kris, [address] [place] [address] 11/11/2023 10:00 AM EDT Imaging Radiology [address] 132 [facility] [place] [address] 11/12/2023 2:30 PM EDT Telemedicine Neurosurgery, [address] [address] Dashawn Haines MD [facility] [place] [address] 11/14/2023 7:30 AM EDT Laboratory Laboratory [facility] [address] [place] [phone] Diane, Lab Scene 200 [facility] [place] [address] 11/14/2023 7:45 AM EDT Office Visit Hematology/Oncology [facility] [place] [address] [place] [phone] Lasha Christine MD [address] [place] [address] 11/14/2023 8:15 AM EDT Hem/Onc Treatment Hematology/Oncology Treatment, [place] [address] [place] [phone] Diane, Chair 7 Hem Onc [facility] 200 [facility] [place] [address] 12/17/2023 10:00 AM EDT Appointment Vascular Lab [facility], [place] [address] [place] [address] 12/17/2023 10:30 AM EDT Office Visit Vascular Surg [facility] [address] [place] [address] Margarito Cabrera MD [address] [place] [address] Scheduled Procedures Name Priority Associated Diagnoses Date/Ti [...] this encounter Medical Devices Implanted Type Area Stock Pitcher Device Identifier Shelf Expiration Date Model / Serial / Lot Stent Main Body Stuh-05-74-Zt - [id number] Implanted:Qty: 1 on 06/10/2014 by Ronal Gallegos MD at OR [facility] Aorta [employer] 04/07/2016 TFFB-24-8 2-ZT / / Graft Iliac Leg Spirlz 50e51dv - [id number] Implanted:Qty: 1 on 06/10/2014 by Ronal Gallegos MD at OR [facility] Right: Aorta [employer] 10/09/2015 [id number] / / [id number] Description: Graft Iliac Leg Spirlz 09h88zy - [id number] Implanted:Qty: 1 on 06/10/2014 by Ronal Gallegos MD at OR [facility] Right: Femoral Artery [employer] 11/07/2016 [id number] / / [id number] Stent Polmer 29mm P3110 - [id number] Implanted:Qty: 1 on 06/10/2014 by Ronal Gallegos MD at OR [facility] N/A: Aorta JNJ : CORDIS ENDOVASCULAR 07/26/2018 [id number] / / [id number] Codman Orbit Galaxy Coil 2.5mm X 3.5cm Implanted:Qty: 1 on 09/12/2015 by Arik Shin MD at OR [facility] Left: Head LENORA & [employer] 02/26/2017 [id number] / [id number] / [id number] Description:COMPLEX XTRASOFT detachable coil deployed left internal carotid artery Codman Orbit Galaxy Coil 2.5mm X 2.5cm Implanted:Qty: 1 on 09/12/2015 by Arik Shin MD at OR [facility] Left: Head LENORA & LENORA CODMAN 01/27/2016 [id number] / [id number] / [id number] Description:COMPLEX XTRASOFT detachable coil deployed left internal carotid artery aneurysm Codman [place] 2 Stent 4mm X 30mm Implanted:Qty: 1 on 09/12/2015 by Arik Shin MD at OR [facility] Left: Head LENORA & LENORA DEP 03/26/2018 [id number] / [id number] / [id number] Description:Vascular reconst ruction device deployed in left internal carotid artery Codman Orbit Galaxy Coil 6mm X 20cm Implanted:Qty: 1 on 09/12/2015 by Arik Shin MD at OR [facility] Left: Head LENORA & LENORA [facility] 09/26/2016 [id number] / [id number] / [id number] Description:COMPLEX FILL det achable coil deployed left internal carotid artery aneurysm Codman Orbit Galaxy Coil 4mm X 10cm Implanted:Qty: 1 on 09/12/2015 by Arik Shin MD at OR [facility] Left: Head LENORA & LENORA [facility] 10/27/2015 [id number] / [id number] / [id number] Description:COMPLEX XTRASOFT detachable coil deployed left internal carotid artery aneurysm Codman Orbit Galaxy Coil 3.5mm X 9cm Implanted:Qty: 1 on 09/12/2015 by Arik Shin MD at OR [facility] Left: Head LENORA & LENORA [facility] 12/28/2015 [id number] / [id number] / [id number] Description:COMPLEX XTRASOFT detachable coil deployed left internal carotid artery aneurysm Codman Orbit Galaxy Coil 3mm X 6cm Implanted:Qty: 1 on 09/12/2015 by Arik Shin MD at OR [facility] Left: Head LENORA & LENORA [facility] 04/28/2017 [id number] / [id number] / [id number] Description:COMPLEX XTRASOFT detachable coil deployed left internal carotid artery aneurysm Lens Intraoc 21.0 - [id number] - [id number] Implanted:Qty: 1 on 11/08/2020 by Yuri Bradley MD at OR [facility] Left: Eye BAUSCH & LOMB 06/26/2025 [id number] / [id number] / [id number] Lens Intraoc 20.5 - [id number] - [id number] Implanted:Qty: 1 on 11/22/2020 by Yuri Bradley MD at OR [facility] Right: Eye BAUSCH & LOMB 07/27/2025 [id number] / [id number] / [id number] Clip Quick 2.8mm 230cm - [id number] Implanted:Qty: 3 on 03/29/2021 by Luciana Fernandez MD at ENDOSCOPY [facility] [employer] 08/27/2023 HX-202UR. A / / Sureclip 16mm 235cm - [id number] Implanted:Qty: 2 on 05/07/2022 by Luciana Fernandez MD at ENDOSCOPY [facility] Colon MICRO TECH ENDOSCOPY 07/06/2024 [id number] / / Power Port 8fr Sngl Lumen Plas - [id number] Implanted:Qty: 1 on 01/30/2023 by Koko Santiago MD at OR [facility] N/A: Chest CR BARD : PERIPHERAL VASCULAR 07/27/2024 [id number] / / [id number] Power Port 8fr Sngl Lumen Plas - [id number] Implanted:Qty: 1 on 01/30/2023 by Koko Santiago MD at OR [facility] CR BARD : PERIPHERAL VASCULAR [id number] 07/27/2024 [id number] / / [id number] documented as of this encounter Visit Diagnoses [...] and were consensually agreed upon. Care Teams Electromechanical Equipment Assembler Relationship Specialty Start Date End Date Mauro Watson DO [address] [place] [address] PCP - General Family Medicine 04/13/19 documented as of this encounter
--- OUTSIDE RECORDS SUMMARY | 2024-02-19 09:31 | External Medical Summary | Summary of Care ---
Author Name Unknown Organization [facility] Address [address] [place] [address] Phone [phone] Care Team Providers Care Mill Hand Plate Mill Name Role Phone Mauro Watson DO Primary Care Provider Reason for Visit * Reason Onset Date Comments Medication Refill 11/04/2023 Encounter Details Date Type Department Care Team (Late st Contact Info) Description 11/04/2023 Refill Family Practice [facility] [address] [facility] [place] [address] Mauro Watson DO [address] [facility] [place] [address] Lumbar radiculopathy Allergies Active Allergy Reactions Criticality Noted Date Comments Aspirin Bleeding High 11/26/2011 Significant hemorroidal bleed on aspirin,high doses Duloxetine Hcl Hypertension 01/26/2020 documented as of this encounter (statuses as of 11/04/2023) Medications Medication Sig Dispensed Refills Start Date [...] Tablet 08/19/2023 Active dexAMETHasone 4 MG Oral TabletIndications:Me tastatic [...] as of this encounter (statuses as of 11/04/2023) Active Problems Problem Noted Date Diagnosed Date Malignant neoplasm of left lung 08/23/2023 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 01/21/2023 Encounter for antineoplastic chemotherapy 2022 Medical marijuana use 08/26/2021 CKD (chronic kidney disease), stage II Overview: EGFR 72 Lumbar radiculopathy 05/27/2019 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 05/05/2019 History of colon polyps 08/12/2018 ACEI/ARB contraindicated 09/21/2016 Carotid aneurysm, left 09/13/2015 Overview: S/p coil embolization Cerebral aneurysm, nonruptured 09/05/2015 AAA (abdominal aortic aneurysm) 06/20/2015 Overview: S/p repair Bilateral carotid artery disease 06/20/2015 Medical home patient encounter 05/19/2014 Hypertriglyceridemia 05/16/2012 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 07/11/2010 Dyslipidemia, goal LDL below [...] as of this encounter (statuses as of 11/04/2023) Resolved Problems Problem Noted Date Diagnosed Date [...] as of this encounter (statuses as of 11/04/2023) Immunizations Name Administration Dates Next Due COVID-19 [...] encounter Miscellaneous Notes * Telephone Encounter - Andrew Garcia - 11/04/2023 2:17 PM EDTRefused Prescriptions: Disp Refills Gabapentin 600 MG Oral Tablet (Neurontin) 270 Ta*3 Sig: Take 1 Tablet by mouth in the morning and 1 Tablet at noon and 1 Tablet before bedtime.Refused By: Rom GARCIA for Refusal: Duplicate Request documented in this encounter Plan of Treatment Upcoming Encounters Date Type Department Care Team (Late st Contact Info) Description 11/05/2023 3:25 PM EDT Office Visit Interventional Pain Center, [facility] [address] [facility] [place] [address] Wiliam Tam DO [address] [facility] [address] 11/11/2023 10:00 AM EDT Imaging Radiology [facility] 132 [facility] [place] [address] 11/12/2023 2:30 PM EDT Telemedicine Neurosurgery, [address] [address] Dashawn Haines MD [facility] [address] [place], [place] [address] 11/14/2023 7:30 AM EDT Laboratory Laboratory [facility] [place] [address] [place] [address] Zeyad Contreras [facility] 200 [facility] [place] [address] 11/14/2023 7:45 AM EDT Office Visit Hematology/Oncology [facility] [place] [address] [place] [address] Lasha Christine MD [address] [place] [address] 11/14/2023 8:15 AM EDT Hem/Onc Treatment Hematology/Oncology Treatment, [place] [address] [place] [address] Diane, Chair 7 Hem Onc [facility] [address] [place] [address] 12/17/2023 10:00 AM EDT Appointment Vascular Lab [facility], [address] [address] 12/17/2023 10:30 AM EDT Office Visit Vascular Surg [facility], [address] [address] Margarito Cabrera MD [address] [place] [address] Scheduled Procedures Name Priority Associated Diagnoses Date/Ti me COLONOSCOPY FLEXIBLE PROXIMAL DIAGNOSTIC Recall History of colon polyps Health Maintenance Due Date Last Done Comments Cologuard 1994 Sigmoidoscopy 1994 Fecal Occult Blood Test 02/03/2001 02/04/2000, 02/02 COVID-19 Vaccine (2022- season) 2022 02/06/2022, 05/11/2021, [...] this encounter Medical Devices Implanted Type Area Staff Nurse Device Identifier Shelf Expiration Date Model / Serial / Lot Stent Main Body Vpob-81-96-Zt - [id number] Implanted:Qty: 1 on 06/10/2014 by Ronal Gallegos MD at OR [facility] Aorta [employer] 04/07/2016 TFFB-24-8 2-ZT / / Graft Iliac Leg Spirlz 40d65wd - [id number] Implanted:Qty: 1 on 06/10/2014 by Ronal Gallegos MD at OR [facility] Right: Aorta [employer] 10/09/2015 [id number] / / [id number] Description: Graft Iliac Leg Spirlz 36y53xh - [id number] Implanted:Qty: 1 on 06/10/2014 by Ronal Gallegos MD at OR [facility] Right: Femoral Artery [employer] 11/07/2016 [id number] / / [id number] Stent Polmer 29mm P3110 - [id number] Implanted:Qty: 1 on 06/10/2014 by Ronal Gallegos MD at OR [facility] N/A: Aorta JNJ : CORDIS ENDOVASCULAR 07/26/2018 P3110 / / [id number] Codman Orbit Galaxy Coil 2.5mm X 3.5cm Implanted:Qty: 1 on 09/12/2015 by Arik Shin MD at OR [facility] Left: Head LENORA & LENORA CODMAN 02/26/2017 [id number] / [id number] / [id number] Description:COMPLEX XTRASOFT detachable coil deployed left internal carotid artery Codman Orbit Galaxy Coil 2.5mm X 2.5cm Implanted:Qty: 1 on 09/12/2015 by Arik Shin MD at OR [facility] Left: Head LENORA & LENORA CODMAN 01/27/2016 [id number] / [id number] / [id number] Description:COMPLEX XTRASOFT detachable coil deployed left internal carotid artery aneurysm Codman [place] 2 Stent 4mm X 30mm Implanted:Qty: 1 on 09/12/2015 by Arik Shin MD at OR [facility] Left: Head LENORA & LENORA DEPUY 03/26/2018 [id number] / [id number] / [id number] Description:Vascular reconst ruction device deployed in left internal carotid artery Codman Orbit Galaxy Coil 6mm X 20cm Implanted:Qty: 1 on 09/12/2015 by Arik Shin MD at OR [facility] Left: Head LENORA [employer] LENORA CODMAN 09/26/2016 [id number] / [id number] / [id number] Description:COMPLEX FILL det achable coil deployed left internal carotid artery aneurysm Codman Orbit Galaxy Coil 4mm X 10cm Implanted:Qty: 1 on 09/12/2015 by Arik Shin MD at OR [facility] Left: Head LENORA [employer] LENORA CODMAN 10/27/2015 [id number] / [id number] / [id number] Description:COMPLEX XTRASOFT detachable coil deployed left internal carotid artery aneurysm Codman Orbit Galaxy Coil 3.5mm X 9cm Implanted:Qty: 1 on 09/12/2015 by Arik Shin MD at OR [facility] Left: Head LENORA & LENORA [employer] 12/28/2015 [id number] / [id number] / [id number] Description:COMPLEX XTRASOFT detachable coil deployed left internal carotid artery aneurysm Codman Orbit Galaxy Coil 3mm X 6cm Implanted:Qty: 1 on 09/12/2015 by Arik Shin MD at OR [facility] Left: Head LENORA & LENORA CODMAN 04/28/2017 [id number] / [id number] / [id number] Description:COMPLEX XTRASOFT detachable coil deployed left internal carotid artery aneurysm Lens Intraoc 21.0 - [id number] - [id number] Implanted:Qty: 1 on 11/08/2020 by Yuri Bradley MD at OR [facility] Left: Eye BAUSCH & LOMB 06/26/2025 [id number] / [id number] / [id number] Lens Intraoc 20.5 - [id number] - [id number] Implanted:Qty: 1 on 11/22/2020 by Yuri Bradley MD at OR [facility] Right: Eye BAUSCH & LOMB 07/27/2025 [id number] / [id number] / [id number] Clip Quick 2.8mm 230cm - [id number] Implanted:Qty: 3 on 03/29/2021 by Luciana Fernandez MD at ENDOSCOPY [facility] [employer] 08/27/2023 HX-202UR. A / / Sureclip 16mm 235cm - [id number] Implanted:Qty: 2 on 05/07/2022 by Luciana Fernandez MD at ENDOSCOPY [facility] Colon MICRO TECH ENDOSCOPY 07/06/2024 [id number] / / Power Port 8fr Sngl Lumen Plas - [id number] Implanted:Qty: 1 on 01/30/2023 by Koko Santiago MD at OR [facility] N/A: Chest CR BARD : PERIPHERAL VASCULAR 07/27/2024 [id number] / / [id number] Power Port 8fr Sngl Lumen Plas - [id number] Implanted:Qty: 1 on 01/30/2023 by Koko Santiago MD at OR [facility] CR BARD : PERIPHERAL VASCULAR [id number] 07/27/2024 [id number] / / [id number] documented as of this encounter Visit Diagnoses Diagnosis Lumbar radiculopathy Thoracic or lumbosacral neuritis or [...] and were consensually agreed upon. Care Teams Mill Hand Plate Mill Relationship Specialty Start Date End Date Mauro Watson DO [address] [place] [address] PCP - General Family Medicine 04/13/19 documented as of this encounter
--- OUTSIDE RECORDS SUMMARY | 2024-02-19 09:31 | External Medical Summary | Summary of Care ---
Author Name Unknown Organization [facility] Address [address] [place] [address] Phone [phone] Care Team Providers Care Pump House Operator Name Role Phone Mauro Watson DO Primary Care Provider Reason for Visit * Reason Comments Chemotherapy Chemo/recheck Encounter Details Date Type Department Care Team ([facility] st Contact Info) Description 2023 8:15 AM EDT Office Visit Hematology/Oncology [facility] [place] [address] [place] [address] Lasha Christine MD [address] [place] [address] Malignant neoplasm of left lung, unspecified part of lung (HCC)*; Elevated CEA; 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) Allergies Active Allergy Reactions Criticality Noted Date Comments Aspirin Bleeding High 11/26/2011 Significant hemorroidal bleed on aspirin,high doses Duloxetine Hcl Hypertension 01/26/2020 documented as of this encounter (statuses as of 2023) Medications Medication Sig Dispensed Refills Start Date End Date Status Acetaminophen 325 MG Oral Tablet (Tylenol) take 2 tablet by mouth every 4 hours if needed FOR FEVER OR PAIN 05/08/2022 Active Gabapentin 600 MG Oral Tablet (Neurontin)Indicatio ns:Lumbar radiculopathy take 1 tablet by mouth three times a day 270 Tablet 3 11/15/2022 Active Omeprazole 20 MG Oral Capsule Delayed [...] the morning. 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 01/21/2023 Encounter for antineoplastic chemotherapy 2022 Medical marijuana use 08/26/2021 CKD (chronic kidney disease), stage II Overview: EGFR 72 Lumbar radiculopathy 05/27/2019 Atherosclerosis of [place] co ronary artery of [place] heart with angina pectoris 05/05/2019 History of colon polyps 08/12/2018 ACEI/ARB contraindicated 09/21/2016 Carotid aneurysm, left 09/13/2015 Overview: S/p coil embolization Cerebral aneurysm, nonruptured 09/05/2015 AAA (abdominal aortic aneurysm) 06/20/2015 Overview: S/p repair Bilateral carotid artery disease 06/20/2015 Medical home patient encounter 05/19/2014 Hypertriglyceridemia 05/16/2012 CORON ATHEROSCL MARY'S IGLOO CORON VESSEL 07/11/2010 Dyslipidemia, goal LDL below [...] as of this encounter (statuses as of 2023) Resolved Problems Problem Noted Date Diagnosed Date [...] as of this encounter (statuses as of 2023) Immunizations Name Administration Dates Next Due COVID-19 [...] Sign Reading Time Taken Comments Blood Pressure 138/77 2023 8:11 AM EDT Pulse 89 2023 8:11 AM EDT Temperature 36.2 C (97.1 F) 2023 8:11 AM ED T Respiratory Rate - - Oxygen Saturation 95% 2023 8:11 AM EDT Inhaled Oxygen Concentration - - Weight 75.8 kg (167 lb) 2023 8:11 AM EDT Height - - Body Mass Index 25.4 06/06/2023 12:13 PM EST documented in this [...] Progress Notes * Lasha Christine MD - 2023 8:15 AM EDT Hematology/Oncology Outpatient Clinic note [address] [place] [address] Name: Mp Vaughn Date: 09/12/2023 CHIEF COMPLAINT: pM Vaughn is a 72 year old male [...] the recommendation from Dr. Jose Bejarano from [facility] every 21 days x 8 cycles [...] Alimta and carboplatin chemotherapy, so far received 3 cycles of chemotherapy, previously noted upper abdominal pain has improved, he is not using oxycodone at this time, currently not on pain medication, nausea and vomiting has improved, appetite improved, weight gain by about 10 lb, now stable, current weight around 167 lb, no increasing headache, no leg edema, [...] ARTERY performed by Arik Shin MD at [facility] CATHETER OCCLUSION/EMBOLIZATION,CUSTOMER ORDERS CLERK N/A 09/12/2015 TRANSCATHETER PERMANENT ARTERIAL OCCLUSION CENTRAL NERVOUS SYSTEM performed by Arik Shin MD at [facility] COLONOSCOPY W/ LESION REMOVAL, SNARE 09/09/2006 adenomatous polyp--repeat 5 years COLONOSCOPY, DIAGNOSTIC (RECTUM) 08/15/2012 adenomatous polyp, diverticulosis, repeat 5 yrs/COLONOSCOPY FLEXIBLE PROXIMAL DIAGNOSTIC performed by Luciana Fernandez MD at ENDOSCOPY [facility] COLONOSCOPY, DIAGNOSTIC (RECTUM) 11/23/2015 adenomatous polyps, diverticulosis, andiodysplastic lesions, repeat 5 yrs/[facility] COLONOSCOPY, DIAGNOSTIC (RECTUM) 11/28/2015 colonic ulcer, diverticulosis/inpt [facility] COLONOSCOPY, DIAGNOSTIC (RECTUM) 03/29/2021 adenomatous polyps, diverticulosis, repeat 1 yr / COLONOSCOPY FLEXIBLE PROXIMAL DIAGNOSTIC performed by Luciana Fernandez MD at ENDOSCOPY [facility] COLONOSCOPY, DIAGNOSTIC (RECTUM) 05/07/2022 benign adenomatous polyps, repeat 6 mo / COLONOSCOPY FLEXIBLE PROXIMAL DIAGNOSTIC performed by Luciana Fernandez MD at ENDOSCOPY [facility] COLONOSCOPY, DIAGNOSTIC (RECTUM) 11/02/2022 resolving ischemic colitis, repeat 9 mo / COLONOSCOPY FLEXIBLE PROXIMAL DIAGNOSTIC performed by Luciana Fernandez MD at [facility] EGD, FLEXIBLE, DIAGNOSTIC 11/23/2015 reflux esophagitis, Schatzki ring, sm /[facility] EGD, FLEXIBLE, DIAGNOSTIC 01/02/2023 hiatal hernia/gastritis/biopsies show mild gastritits of stomach/ESOPHAGOGASTRODUODENOSCOPY (EGD), FLEXIBLE, TRANSORAL, DIAGNOSTIC performed by Jory Sauceda DO at ENDOSCOPY [facility] EGD, W/ENDOSCOPIC US 01/02/2023 multiple metastatic lesions liver/ESOPHAGOGASTRODUODENOSCOPY (EGD), FLEXIBLE, TRANSORAL, ENDOSCOPICULTRASOUND performed by Jory Sauceda DO at [facility] HEMORRHOIDECTOMY, INTERNAL, 2 + COLUMNS 06/28/2000 Internal x 3, Dr Gallego INJECT DX/THER SUBSTANCE INTERLAMINAR LUMBAR/SACRAL W IMAGE GUIDE 11/13/2018 INJECTION SPINE LUMBAR OR SACRAL performed by Deep León DO at [facility] INJECT DX/THER SUBSTANCE INTERLAMINAR LUMBAR/SACRAL W IMAGE GUIDE 11/27/2018 INJECTION SPINE LUMBAR OR SACRAL performed by Deep Broussardsinabhishek, DO at OR [facility] INJECT DX/THER SUBSTANCE INTERLAMINAR LUMBAR/SACRAL W IMAGE GUIDE 04/16/2019 INJECTION SPINE LUMBAR OR SACRAL performed by Deep Broussardsins, DO at OR [facility] INJECT DX/THER SUBSTANCE [...] performed by Koko Santiago MD at OR [facility] INSERT ARTERY CATHETER THRU SKIN Right 06/10/2014 [...] EPIDURAL LUMBAR OR SACRAL performed by Deep León, DO at OR [facility] OPEN FEMORAL ARTERY EXPOSURE FOR ENDOVASCULAR PROSTHESIS, UNILAT Bilateral 06/10/2014 bilateral femoral artery exposure by Dr. Gallegos. OTHER (INFORMATION) ACT [address] CATHETER IN ARTERIES N/A 08/31/2015 CATHETER PLACEMENT, BRACHIOCEPHALIC, THIRD ORDER BRANCH performed by Arik Shin MD at [facility] PLACE CATHETER IN ARTERIES N/A 09/12/2015 CATHETER PLACEMENT, BRACHIOCEPHALIC, THIRD ORDER BRANCH performed by Arik Shin MD at [facility] REMOVE CATARACT, INSERT LENS PROSTH Left 11/08/2020 left EXTRACAPSULAR CATARACT REMOVAL WITH INTRAOCULAR LENS performed by Yuri Bradley MD at [facility] REMOVE CATARACT, INSERT LENS PROSTH Right 11/22/2020 right EXTRACAPSULAR CATARACT REMOVAL WITH INTRAOCULAR LENS performed by Yuri Bradley MD at OR [facility] VERTEBRAL ARTERY CATHETER PLACEMENT Bilateral 08/20/2016 CATHETER PLACEMENT VERTEBRAL ARTERY, performed by Arik Shin MD at [facility] Social History Socioeconomic History Marital status: Spouse name: Not on file Number of children: Not on file Years of education: Not on file Highest education level: Not on file Occupational History Not on file Tobacco Use Smoking status: Former Current packs/day: 0.00 Average packs/day: 1.5 packs/day for 35.0 years (52.5 ttl pk-yrs) Types: Cigarettes Start date: 06/10/1979 Quit date: 06/10/2014 Years since quittin.3 Smokeless tobacco: Never Tobacco comments: quit in [...] 4 hours if needed FOR FEVEROR PAIN Gabapentin 600 MG Oral Tablet (Neurontin) take 1 tablet by mouth three times a day 270 Tablet 3 Omeprazole 20 MG Oral Capsule Delayed Release [...] mouth every 8 hours if needed for [id number] Tablet 2 Lidocaine-Prilocaine 2.5-2.5 % External Cream [...] as needed for Pain, Moderate. 30 Tablet 0 dexAMETHasone 4 MG Oral Tablet One tablet twice a day for 3 days only, starting one day before the chemotherapy. 36 Tablet 1 Folic Acid 1 MG Oral Tablet Take 1 Tablet by mouth in the morning. 90 Tablet 3 No current facility-administered medications for this visit. REVIEW OF SYSTEMS: See HPI - otherwise negative OBJECTIVE: BP 138/77 (BP Site: Left Arm, BP Position: Sitting, BP Cuff Size: Regular) | Pulse 89 | Temp 36.2 C (97.1 F) (Tympanic) | Wt 75.8 kg (167 lb) | SpO2 95% | BMI 25.40 kg/m | BSA 1.91 m PHYSICAL EXAM: ECOG: Performance Status 1 [...] +hepatomegaly Neurologic: Normal - Grossly intact LABS: -CEA level --> 20,191 (10/03/2023). Blood workup done on 2023: -BUN/Creat: 17/1.1, Calcium 9.6 -AST 56, ALT 23, alkaline phosphatase 179, bilirubin level 0.4. -WBC IMAGING: Chest X ray 09/12/23: IMPRESSION Port-A-Cath is new. Otherwise no acute cardiopulmonary findings IMPRESSION/PLAN: Malignant neoplasm metastatic to liver, unknown [...] is receiving Alimta and carboplatin combination, received 3 cycles of chemotherapy so far, gradual reduction of CEA level around 20,000 range noted, improvement of the liver function test noted, he is feeling well, gained weight by about 10 lb and now stable weight. Previously noted abdominal pain improved, currently not taking opioid medication I reviewed his blood workup done today, overall stable blood workup Will proceed with Alimta and carboplatin as we planned. He is having follow-up CT scan of chest, abdomen pelvis on 11/11/2023. I am planning to see him back in the clinic in 3 weeks. He will receive additional IV hydration after completion of the chemotherapy. Will see him in [address] Lasha Christine Hem/Onc (This note was [...] Notes * Rubina Wong MED ASSIST - 2023 8:12 AM EDT Patient identifed by name and birthdate Do you have any concerns about pain management for today's visit? Yes. Patient instructed to discuss pain concerns with provider during the visit today Living Will or Advance Directive for Health Care as noted on the problem list. [facility] is a way you can talk to your provider on line through e-mail. Would you like to sign up? I can activate it for you? ALREADY ACTIVE Filed Vitals: 10/24/23 0811 BP: 138/77 Pulse: 89 Temp: 36.2 C (97.1 F) TempSrc: Tympanic SpO2: 95% Weight: 75.8 kg (167 lb) Patient was instructed to not get [...] Care Team (Late st Contact Info) Description 10/30/2023 1:00 PM EDT Telemedicine Neurosurgery, [place] [address] [place] [address] Dashawn Haines MD [address] [place] [address] 11/05/2023 3:25 PM EDT Office Visit Interventional Pain Center, [facility] [address] [place] [address] Wiliam Tam DO [address] [place] [phone] 11/11/2023 10:00 AM EDT Imaging Radiology [facility] 1st Floor, [place] [address] [facility] [place] [address] 11/14/2023 7:30 AM EDT Laboratory Laboratory [facility] [place] [address] [place] [phone] Diane, Lab Scenery [address] [place] [address] 11/14/2023 7:45 AM EDT Office Visit Hematology/Oncology [facility] [place] [address] [place] [phone] Lasha Christine MD [address] [place] [address] 11/14/2023 8:15 AM EDT Hem[facility] [address] [place] [phone] Diane, Chair 7 Hem Onc Scenery [address] [place] [address] 12/17/2023 10:00 AM EDT Appointment Vascular Lab [facility] [address] [place] [address] 12/17/2023 10:30 AM EDT Office Visit Vascular Surg [facility] [address] [place] [address] Margartio Cabrera MD [address] [place] [address] Scheduled Procedures Name Priority Associated Diagnoses Date/Ti me COLONOSCOPY FLEXIBLE PROXIMAL DIAGNOSTIC Recall History of colon polyps Health Maintenance Due Date Last Done Comments Cologuard 1994 Sigmoidoscopy 1994 Fecal Occult Blood Test 02/03/2001 02/04/2000, 02/02 COVID-19 Vaccine ( season) 2022 02/06/2022, 05/11/2021, 12/13/2020, Additional history exists Depression Screening 05/17/2023 05/17/2022 Colonoscopy 11/03/2023 11/02/2022, 0 10/2022, 05/07/2022, Additional history exists Colorectal Cancer Screening 11/03/2023 GFR 10/23/2024 2023, 060 09/2023, 09/12/2023, Additional [...] history exists Influenza Vaccine (FLU shot) Completed 01/02/2023, 02/21/2022, 02/21/2022, Additional history exists GARDASIL-HPV IMMUNIZATION SERIES Aged Out No longer eligible based on patient's age to complete this topic Hepatitis B Aged Out No longer eligi ble based on patient's age to complete this topic MENINGOCOCCAL (MENACTRA/MENVEO) Aged Out No longer eligible based on patient's age to complete this topic documented as of this encounter Medical Devices Implanted Type Area Veterinary Surgery Technician Device Identifier Shelf Expiration Date Model / Serial / Lot Stent Main Body [id number]-[id number] - [id number] Implanted:Qty: 1 on 06/10/2014 by Ronal Gallegos MD at OR [facility] Aorta [employer] 04/07/2016 [id number] / / Graft Iliac Leg Spirlz 56g00pb - [id number] Implanted:Qty: 1 on 06/10/2014 by Ronal Gallegos MD at OR [facility] Right: Aorta [employer] 10/09/2015 [id number] / / [id number] Description: Graft Iliac Leg Spirlz 71t23du - [id number] Implanted:Qty: 1 on 06/10/2014 by Ronal Gallegos MD at OR [facility] Right: Femoral Artery [employer] 11/07/2016 [id number] / / [id number] Stent Polmer 29mm P3110 - [id number] Implanted:Qty: 1 on 06/10/2014 by Ronal Gallegos MD at OR [facility] N/A: Aorta JNJ : [employer] 07/26/2018 [id number] / / [id number] Codman Orbit Galaxy Coil 2.5mm X 3.5cm Implanted:Qty: 1 on 09/12/2015 by Arik Shin MD at OR [facility] Left: Head [facility] 02/26/2017 [id number] / [id number] / [id number] Description:COMPLEX XTRASOFT detachable coil deployed left internal carotid artery Codman Orbit Galaxy Coil 2.5mm X 2.5cm Implanted:Qty: 1 on 09/12/2015 by Arik Shin MD at OR [facility] Left: Head [facility] 01/27/2016 [id number] / [id number] / [id number] Description:COMPLEX XTRASOFT detachable coil deployed left internal carotid artery aneurysm Codman [place] 2 Stent 4mm X 30mm Implanted:Qty: 1 on 09/12/2015 by Arik Shin MD at OR [facility] Left: Head [employer] 03/26/2018 [id number] / [id number] / [id number] Description:Vascular reconst ruction device deployed in left internal carotid artery Codman Orbit Galaxy Coil 6mm X 20cm Implanted:Qty: 1 on 09/12/2015 by Arik Shin MD at OR [facility] Left: Head [facility] 09/26/2016 [id number] / [id number] / [id number] Description:COMPLEX FILL det achable coil deployed left internal carotid artery aneurysm Codman Orbit Galaxy Coil 4mm X 10cm Implanted:Qty: 1 on 09/12/2015 by Arik Shin MD at OR [facility] Left: Head [facility] 10/27/2015 [id number] / [id number] / [id number] Description:COMPLEX XTRASOFT detachable coil deployed left internal carotid artery aneurysm Codman Orbit Galaxy Coil 3.5mm X 9cm Implanted:Qty: 1 on 09/12/2015 by Arik Shin MD at OR [facility] Left: Head [employer] 12/28/2015 [id number] / [id number] / [id number] Description:COMPLEX XTRASOFT detachable coil deployed left internal carotid artery aneurysm Codman Orbit Galaxy Coil 3mm X 6cm Implanted:Qty: 1 on 09/12/2015 by Arik Shin MD at OR [facility] Left: Head [employer] 04/28/2017 [id number] / [id number] / [id number] Description:COMPLEX XTRASOFT detachable coil deployed left internal carotid artery aneurysm Lens Intraoc 21.0 - [id number] - [id number] Implanted:Qty: 1 on 11/08/2020 by Yuri Bradley MD at OR [facility] Left: Eye [employer] 06/26/2025 [id number] / [id number] / [id number] Lens Intraoc 20.5 - [id number] - [id number] Implanted:Qty: 1 on 11/22/2020 by Yuri Bradley MD at OR [facility] Right: Eye [employer]OM[employer] 07/27/2025 [id number] / [id number] / [id number] Clip Quick 2.8mm 230cm - [id number] Implanted:Qty: 3 on 03/29/2021 by Luciana Fernandez MD at ENDOSCOPY [facility] [employer] 08/27/2023 [id number] / / Sureclip 16mm 235cm - [id number] Implanted:Qty: 2 on 05/07/2022 by Luciana Fernandez MD at ENDOSCOPY [facility] Colon MICRO TECH ENDOSCOPY 07/06/2024 [id number] / / Power Port 8fr Sngl Lumen Plas - [id number] Implanted:Qty: 1 on 01/30/2023 by Koko Santiago MD at OR [facility] N/A: Chest CR BARD : PERIPHERAL VASCULAR 07/27/2024 [id number] / / [id number] Power Port 8fr Sngl Lumen Plas - [id number] Implanted:Qty: 1 on 01/30/2023 by Koko Santiago MD at OR [facility] ADDIE BARD : PERIPHERAL VASCULAR [id number] 07/27/2024 [id number] / / [id number] documented as of this encounter Visit Diagnoses Diagnosis Malignant neoplasm of left lung, unspecified part of lung (HCC)- Primary Elevated CEA Elevated carcinoembryonic antigen [CEA] 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) Secondary malignant neoplasm [...] and were consensually agreed upon. Care Teams Pump House Operator Relationship Specialty Start Date End Date Mauro Watson DO [address] [place] [address] PCP - General Family Medicine 04/13/19 documented as of this encounter"
--- OUTSIDE RECORDS SUMMARY | 2024-02-19 09:31 | External Medical Summary | Summary of Care ---
Author Name Unknown Organization [facility] Address [address] [place] [address] Phone [phone] Care Team Providers Care Telephone Coin Box Collector Name Role Phone Mauro Watson DO Primary Care Provider Reason for Referral * Precert (Within 10 days (routine)) - Authorized Specialty Diagnoses / Procedures Referred By Contac t Referred To Contact Radiology Diagnoses Cerebral aneurysm, nonruptured Procedures MRA HEAD WO CONTRAST Dashawn Haines MD [address] [place] [address] Referral ID Status Reason Start Date Expiration Date V isits Requested Visits Authorized [id number] Authorized 10/30/2023 999 999 Reason for Visit * Reason Onset Date Comments Appointment 10/29/2023 Encounter Details Date Type Department Care Team ([facility] st Contact Info) Description 10/29/2023 Telephone Neurosurgery, [place] [address] [place], [place] [id number] Veronica Henderson RN Appointment Allergies Active Allergy Reactions Criticality Noted Date Comments Aspirin Bleeding High 11/26/2011 Significant hemorroidal bleed on aspirin,high doses Duloxetine Hcl Hypertension 01/26/2020 documented as of this encounter (statuses as of 10/29/2023) Medications Medication Sig Dispensed Refills Start Date [...] as of this encounter (statuses as of 10/29/2023) Active Problems Problem Noted Date Diagnosed Date Malignant neoplasm of left lung 08/23/2023 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 01/21/2023 Encounter for antineoplastic chemotherapy 2022 Medical marijuana use 08/26/2021 CKD (chronic kidney disease), stage II Overview: EGFR 72 Lumbar radiculopathy 05/27/2019 Atherosclerosis of [place] co ronary artery of [place] heart with angina pectoris 05/05/2019 History of colon polyps 08/12/2018 ACEI/ARB contraindicated 09/21/2016 Carotid aneurysm, left 09/13/2015 Overview: S/p coil embolization Cerebral aneurysm, nonruptured 09/05/2015 AAA (abdominal aortic aneurysm) 06/20/2015 Overview: S/p repair Bilateral carotid artery disease 06/20/2015 Medical home patient encounter 05/19/2014 Hypertriglyceridemia 05/16/2012 CORON ATHEROSCL [place] CORON VESSEL 07/11/2010 Dyslipidemia, goal LDL [...] as of this encounter (statuses as of 10/29/2023) Resolved Problems Problem Noted Date Diagnosed Date [...] as of this encounter (statuses as of 10/29/2023) Immunizations Name Administration Dates Next Due COVID-19 [...] Miscellaneous Notes * Telephone Encounter - Veronica Henderson RN - 10/29/2023 11:55 AM EDT Patient scheduled telephone appt with Dr. Haines. MRA head w/o contrast was to be completed prior to the appt. No imaging of head since 09/2022. Reached out to patient [phone], confirmed by name and . Confirmed with patient no imaging since last year. We cancelled and rescheduled video appt with Dr. Haines. Aware we updated MRA order and someone from scheduling would assist in scheduling this soon. He verbalized understanding and appreciation. Veronica Beatriz, RN Cerebrovascular Nurse Navigator [facility] documented in this encounter Plan of Treatment Upcoming Encounters Date Type Department Care Team (Late st Contact Info) Description 11/05/2023 3:25 PM EDT Office Visit Interventional Pain Center, [facility] [address] [facility] [place] [address] Wiliam Tam, [address] [facility] [phone] 11/11/2023 10:00 AM EDT [facility] [address] [facility] [place] [address] 11/12/2023 2:30 PM EDT Telemedicine Neurosurgery, [place] [address] [place] [address] Dashawn Haines MD [address] [place] [address] 11/14/2023 7:30 AM EDT Laboratory Laboratory [facility] [place] [address] [facility] [place] [phone] [place], Lab Scenery [address] [facility] [place] [address] 11/14/2023 7:45 AM EDT Office Visit Hematology/Oncology [facility] [place] [address] [place] [phone] Lasha Christine MD [address] [place] [address] 11/14/2023 8:15 AM EDT Hem/Onc Treatment Hematology/Oncology Treatment, [place] [address] [place] [phone] Diane, Chair 7 Hem Onc Scene [address] [place] [address] 12/17/2023 10:00 AM EDT Appointment Vascular Lab [place] [address] [place] [address] 12/17/2023 10:30 AM EDT Office Visit Vascular Surg [place] [address] [place] [address] Margarito Cabrera MD [address] [place] [address] Scheduled Orders Name Type Priority Associated Diagnoses Orde r Schedule MRA HEAD WO CONTRAST Medical Imaging Routine Cerebral aneurysm, nonruptured Expected: 10/30/2023 (Approximate), Expires: 11/28/2024 Scheduled Procedures Name Priority Associated Diagnoses Date/Ti [...] 02/21/2022, Additional history exists GFR 10/23/2024 2023, 06/09/2023, 09/12/2023, Additional history exists Albumin/Creatinine Ratio 05/17/2025 05/17/2022, 07/30 DTaP,Tdap,and Td Vaccines (4 - Td or Tdap) 01/12/2030 01/13/2020, 06/08/2019, 09/30/2008 Pneumococcal Vaccine: 65+ Years Completed 02/17/2018, 02/04/2017, 12/21/2011 Zoster Vaccines Completed 02/17/2019, 08/29/2017 RETIRED - COLONOSCOPY-ANNUAL AGES 18-100 Discontinued 11/02/2022, 11/02/2022, 05/07/2022, Additional history exists RETIRED - COLONOSCOPY-EVERY 5 YRS AGES 18-100 Discontinued 11/02/2022, 11/02/2022, 05/07/2022, Additional history exists GARDASIL-HPV IMMUNIZATION SERIES Aged Out No longer eligible based on patient's age to complete this topic Hepatitis B Aged Out No longer eligi ble based on patient's age to complete this topic MENINGOCOCCAL (MENACTRA/MENVEO) Aged Out No longer eligible based on patient's age to complete this topic documented as of this encounter Medical Devices Implanted Type Area Gravity Prospector Device Identifier Shelf Expiration Date Model / Serial / Lot Stent Main Body Ffrk-31-63-Zt - [id number] Implanted:Qty: 1 on 06/10/2014 by Ronal Gallegos MD at OR [facility] Aorta [employer] 04/07/2016 TFFB-24-8 2-ZT / / Graft Iliac Leg Spirlz 30g45yf - [id number] Implanted:Qty: 1 on 06/10/2014 by Ronal Gallegos MD at OR [facility] Right: Aorta [employer] 10/09/2015 [id number] / / [id number] Description: Graft Iliac Leg Spirlz [id number] - [id number] Implanted:Qty: 1 on 06/10/2014 by Ronal Gallegos MD at OR [facility] Right: Femoral Artery [employer] 11/07/2016 [id number] / / [id number] Stent Polmer 29mm P3110 - [id number] Implanted:Qty: 1 on 06/10/2014 by Ronal Gallegos MD at OR [facility] N/A: Aorta JNJ : CORDIS ENDOVASCULAR 07/26/2018 [id number] / / [id number] Codman Orbit Galaxy Coil 2.5mm X 3.5cm Implanted:Qty: 1 on 09/12/2015 by Arik Shin MD at OR [facility] Left: Head LENORA [employer] LENORA CODMAN 02/26/2017 [id number] / [id number] / [id number] Description:COMPLEX XTRASOFT detachable coil deployed left internal carotid artery Codman Orbit Galaxy Coil 2.5mm X 2.5cm Implanted:Qty: 1 on 09/12/2015 by Arik Shin MD at OR [facility] Left: Head LENORA & LENORA [facility] 01/27/2016 [id number] / [id number] / [id number] Description:COMPLEX XTRASOFT detachable coil deployed left internal carotid artery aneurysm Codman [place] 2 Stent 4mm X 30mm Implanted:Qty: 1 on 09/12/2015 by Arik Shin MD at OR [facility] Left: Head LENORA & LENORA DEPUY 03/26/2018 [id number] / [id number] / [id number] Description:Vascular reconst ruction device deployed in left internal carotid artery Codman Orbit Galaxy Coil 6mm X 20cm Implanted:Qty: 1 on 09/12/2015 by Arik Shin MD at OR [facility] Left: Head LENORA & LENORA [facility] 09/26/2016 [id number] / [id number] / [id number] Description:COMPLEX FILL det achable coil deployed left internal carotid artery aneurysm Codman Orbit Galaxy Coil 4mm X 10cm Implanted:Qty: 1 on 09/12/2015 by Arik Shin MD at OR [facility] Left: Head [facility]A & [facility] 10/27/2015 [id number] / [id number] / [id number] Description:COMPLEX XTRASOFT detachable coil deployed left internal carotid artery aneurysm Codman Orbit Galaxy Coil 3.5mm X 9cm Implanted:Qty: 1 on 09/12/2015 by Arik Shin MD at OR [facility] Left: Head L[facility]ORA & [facility] 12/28/2015 [id number] / [id number] / [id number] Description:COMPLEX XTRASOFT detachable coil deployed left internal carotid artery aneurysm Codman Orbit Galaxy Coil 3mm X 6cm Implanted:Qty: 1 on 09/12/2015 by Arik Shin MD at OR [facility] Left: Head LENORA [employer] LENORA CODMAN 04/28/2017 [id number] / [id number] / [id number] Description:COMPLEX XTRASOFT detachable coil deployed left internal carotid artery aneurysm Lens Intraoc 21.0 - [id number] - [id number] Implanted:Qty: 1 on 11/08/2020 by Yuri Bradley MD at OR [facility] Left: Eye BAUSCH & LOMB 06/26/2025 [id number] / [id number] Lens Intraoc 20.5 - [id number] - [id number] Implanted:Qty: 1 on 11/22/2020 by Yuri Bradley MD at [facility] Right: Eye BAUSCH & LOMB 07/27/2025 [id number] / [id number] Clip Quick 2.8mm 230cm - [id number] Implanted:Qty: 3 on 03/29/2021 by Luciana Fernandez MD at ENDOSCOPY [facility] [employer] 08/27/2023 HX-202UR. A / / Sureclip 16mm 235cm - [id number] Implanted:Qty: 2 on 05/07/2022 by Luciana Fernandez MD at ENDOSCOPY [facility] Colon MICRO TECH ENDOSCOPY 07/06/2024 [id number] / / Power Port 8fr Sngl Lumen Plas - [id number] Implanted:Qty: 1 on 01/30/2023 by Koko Santiago MD at OR [facility] N/A: Chest CR BARD : PERIPHERAL VASCULAR 07/27/2024 [id number] / / [id number] Power Port 8fr Sngl Lumen Plas - [id number] Implanted:Qty: 1 on 01/30/2023 by Koko Santiago MD at [facility] CR BARD : PERIPHERAL VASCULAR [id number] 07/27/2024 [id number] / / [id number] documented as of this encounter Visit Diagnoses [...] and were consensually agreed upon. Care Teams Telephone Coin Box Collector Relationship Specialty Start Date End Date Mauro Watson DO [address] [place] [address] PCP - General Family Medicine 04/13/19 documented as of this encounter
--- OUTSIDE RECORDS SUMMARY | 2024-02-19 09:31 | External Medical Summary | Summary of Care ---
Author Name Unknown Organization [facility] Address [address] [place] [address] Phone [phone] Care Team Providers Care Family Literacy Coordinator Name Role Phone Mauro Watson DO Primary Care Provider Reason for Visit * Reason Onset Date Comments Follow Up 10/29/2023 Appointment 10/29/2023 Encounter Details Date Type Department Care Team (Late st Contact Info) Description 10/29/2023 Telephone Radiology [address] [address] Services, Scheduling [address] [place] [address] Follow Up; Appointment Allergies Active Allergy Reactions Criticality Noted Date Comments Aspirin Bleeding High 11/26/2011 Significant hemorroidal bleed on aspirin,high doses Duloxetine Hcl Hypertension 01/26/2020 documented as of this encounter (statuses as of 10/30/2023) Medications Medication Sig Dispensed Refills Start Date [...] Oral Tablet (Lopressor)Indicati ons:HTN, goal below 140/90 TAKE 1/2 TAB BY [...] oxyCODONE HCl 5 MG Oral Tablet (Oxy IR)Indications:[place] static 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 (HCC) Take 1 Tablet by mouth every 4 hours as needed for Pain, Moderate. 30 Tablet 08/19/2023 Active dexAMETHasone 4 MG Oral TabletIndications:M etastatic 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 (HCC),Malignant neoplasm of left lung, unspecified part of lung (HCC) One tablet twice a day for 3 days only, starting one day before the chemotherapy. 36 Tablet 1 08/22/2023 Active Folic Acid 1 MG Oral TabletIndications:M etastatic 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 (HCC) Take 1 Tablet by mouth in the morning. 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 01/21/2023 Encounter for antineoplastic chemotherapy 2022 Medical marijuana use 08/26/2021 CKD (chronic kidney disease), stage II 2 Overview: EGFR 72 Lumbar radiculopathy 05/27/2019 Atherosclerosis of [place] co ronary artery of [place] heart with angina pectoris 05/05/2019 History of colon polyps 08/12/2018 ACEI/ARB contraindicated 09/21/2016 Carotid aneurysm, left 09/13/2015 Overview: S/p coil embolization Cerebral aneurysm, nonruptured 09/05/2015 AAA (abdominal aortic aneurysm) 06/20/2015 Overview: S/p repair Bilateral carotid artery disease 06/20/2015 Medical home patient encounter 05/19/2014 Hypertriglyceridemia 05/16/2012 CORON ATHEROSCL [place] CORON VESSEL 07/11/2010 Dyslipidemia, goal LDL [...] as of this encounter (statuses as of 10/30/2023) Resolved Problems Problem Noted Date Diagnosed Date [...] as of this encounter (statuses as of 10/30/2023) Immunizations Name Administration Dates Next Due COVID-19 [...] encounter Miscellaneous Notes * Telephone Encounter - Candace Lopez RT (M) - 10/30/2023 10:21 AM EDT If you answer "yes" to any of the following, please give us a call at before coming to your MRI appointment: Do you have a pacemaker/defibrillator? Do you have any electronic or mechanical implants? No new implants since last MRI on 11/30/2022 Have you had a recent colonoscopy in the last 30 days? No Are you or ? Do you work around metal or ever gotten metal in your eyes? No Any dermals or body piercing you cannot remove? No Do you wear an insulin pump or diabetic monitor? No Have you had any tattoos or permanent makeup in the last 4 weeks? No * Telephone Encounter - Enriqueta Cobos OSA - 10/29/2023 1:04 PM EDT Called pt to carmelo MRA head but he states he has aortic stent and cerebral stent please advise if these are ok for MRI;'s all placed in [facility], Thank you Radiology scheduling documented in this encounter Plan of Treatment Upcoming Encounters Date Type Department Care Team (Late st Contact Info) Description 11/02/2023 10:00 AM EDT Imaging Radiology [address] [facility] [place] [address] 11/05/2023 3:25 PM EDT Office Visit [facility]ventional [facility] Center, [facility] [address] [facility] [place] [address] Wiliam Tam, [address] [place] [phone] 11/11/2023 10:00 AM EDT Imaging Radiology [address] [facility] [place] [address] 11/12/2023 2:30 PM EDT Telemedicine Neurosurgery, [place] [address] [place] [address] Dashawn Haines MD [address] [place] [address] 11/14/2023 7:30 AM EDT Laboratory Laboratory [facility] [place] [address] [place] [phone] [place], Lab Scenery [address] [facility] [place] [address] 11/14/2023 7:45 AM EDT Office Visit Hematology/Oncology [facility] [place] [address] [place] [phone] Lasha Christine MD [address] [place] [address] 11/14/2023 8:15 AM EDT Hem/Onc Treatment Hematology/Oncology Treatment, [place] [address] [place] [phone] Diane, Chair 7 Hem Onc Scenery [address] [place] [address] 12/17/2023 10:00 AM EDT Appointment Vascular Lab [address] [address] 12/17/2023 10:30 AM EDT Office Visit Vascular Surg [place] [address] [place] [address] Margarito Cabrera MD [address] [place] [address] Scheduled Procedures Name Priority Associated Diagnoses Date/Ti [...] this encounter Medical Devices Implanted Type Area Case Assistant Device Identifier Shelf Expiration Date Model / Serial / Lot Stent Main Body Pdde-41-11-Zt - [id number] Implanted:Qty: 1 on 06/10/2014 by Ronal Gallegos MD at OR [facility] Aorta [employer] 04/07/2016 TFFB-24-8 2-ZT / / Graft Iliac Leg Spirlz [id number] - [id number] Implanted:Qty: 1 on 06/10/2014 by Ronal Gallegos MD at OR [facility] Right: Aorta [employer] 10/09/2015 [id number] / / [id number] Description: Graft Iliac Leg Spirlz [id number] - [id number] Implanted:Qty: 1 on 06/10/2014 by Ronal Gallegos MD at OR [facility] Right: Femoral Artery [employer] 11/07/2016 [id number] / / [id number] Stent Polmer 29mm P3110 - [id number] Implanted:Qty: 1 on 06/10/2014 by Ronal Gallegos MD at OR [facility] N/A: Aorta JNJ : CORDIS ENDOVASCULAR 07/26/2018 P3110 / / [id number] Codman Orbit Galaxy Coil 2.5mm X 3.5cm Implanted:Qty: 1 on 09/12/2015 by Arik Shin MD at OR [facility] Left: Head LENORA [employer] LENORA CODMAN 02/26/2017 [id number] / [id number] / [id number] Description:COMPLEX XTRASOFT detachable coil deployed left internal carotid artery Codman Orbit Galaxy Coil 2.5mm X 2.5cm Implanted:Qty: 1 on 09/12/2015 by Arik Shin MD at OR [facility] Left: Head LENORA & ELNORA [facility] 01/27/2016 [id number] / [id number] / [id number] Description:COMPLEX XTRASOFT detachable coil deployed left internal carotid artery aneurysm Codman [place] 2 Stent 4mm X 30mm Implanted:Qty: 1 on 09/12/2015 by Arik Shin MD at OR [facility] Left: Head LENORA [employer] LENORA DEPUY 03/26/2018 [id number] / [id number] / [id number] Description:Vascular reconst ruction device deployed in left internal carotid artery Codman Orbit Galaxy Coil 6mm X 20cm Implanted:Qty: 1 on 09/12/2015 by Arik Shin MD at OR [facility] Left: Head LENORA & LENORA [facility] 09/26/2016 [id number] / [id number] / [id number] Description:COMPLEX FILL det achable coil deployed left internal carotid artery aneurysm Codman Orbit Galaxy Coil 4mm X 10cm Implanted:Qty: 1 on 09/12/2015 by Arik Shin MD at OR [facility] Left: Head LENORA & LENORA [facility] 10/27/2015 [id number] / [id number] / [id number] Description:COMPLEX XTRASOFT detachable coil deployed left internal carotid artery aneurysm Codman Orbit Galaxy Coil 3.5mm X 9cm Implanted:Qty: 1 on 09/12/2015 by Arik Shin MD at OR [facility] Left: Head LENORA & LENORA [facility] 12/28/2015 [id number] / [id number] / [id number] Description:COMPLEX XTRASOFT detachable coil deployed left internal carotid artery aneurysm Codman Orbit Galaxy Coil 3mm X 6cm Implanted:Qty: 1 on 09/12/2015 by Arik Shin MD at OR [facility] Left: Head LENORA & LENORA CODMAN 04/28/2017 [id number] / [id number] / [id number] Description:COMPLEX XTRASOFT detachable coil deployed left internal carotid artery aneurysm Lens Intraoc 21.0 - [id number] - [id number] Implanted:Qty: 1 on 11/08/2020 by MirnaYuri camargo MD at OR [facility] Left: Eye BAUSCH & LOMB 06/26/2025 [id number] / [id number] Lens Intraoc 20.5 - [id number] - [id number] Implanted:Qty: 1 on 11/22/2020 by Yuri Bradley MD at OR [facility] Right: Eye BAUSCH & LOMB 07/27/2025 [id number] / [id number] Clip Quick 2.8mm 230cm - [id number] Implanted:Qty: 3 on 03/29/2021 by Luciana Fernandez MD at ENDOSCOPY [facility] [employer] 08/27/2023 HX-202UR. A / / Sureclip 16mm 235cm - [id number] Implanted:Qty: 2 on 05/07/2022 by Luciana Fernandez MD at ENDOSCOPY [facility] Colon MICRO TECH ENDOSCOPY 07/06/2024 [id number] / / Power Port 8fr Sngl Lumen Plas - [id number] Implanted:Qty: 1 on 01/30/2023 by Koko Santiago MD at OR [facility] N/A: Chest CR BARD : PERIPHERAL VASCULAR 07/27/2024 [id number] / / [id number] Power Port 8fr Sngl Lumen Plas - [id number] Implanted:Qty: 1 on 01/30/2023 by Koko Santiago MD at OR [facility] CR BARD : PERIPHERAL VASCULAR [id number] 07/27/2024 [id number] / / [id number] documented as of this encounter Advance Directives [...] and were consensually agreed upon. Care Teams Family Literacy Coordinator Relationship Specialty Start Date End Date Mauro Watson DO [facility] [address] [place] [address] PCP - General Family Medicine 04/13/19 documented as of this encounter
--- OUTSIDE RECORDS SUMMARY | 2024-02-19 09:31 | External Medical Summary | Summary of Care ---
Author Name Unknown Organization [facility] Address [address] [place] [address] Phone [phone] Care Team Providers Care Roofer Helper Name Role Phone Nicol Watson DO Primary Care Provider Reason for Visit * Reason Onset Date Comments Medication Refill 10/29/2023 Encounter Details Date Type Department Care Team (Late st Contact Info) Description 10/29/[address] [facility] [address] [facility] [place] [address] Nicol Watson DO [address] [facility] [place] [id number] Lumbar radiculopathy Allergies Active Allergy Reactions Criticality [...] before bedtime. 270 Tablet 3 10/29/2023 Active Gabapentin 600 MG Oral Tablet (Neurontin)Indicat [...] patient encounter 05/19/2014 Hypertriglyceridemia 05/16/2012 CORON ATHEROSCL CRAIG CORON VESSEL 07/11/2010 Dyslipidemia, goal LDL below [...] encounter Miscellaneous Notes * Telephone Encounter - Nicol Watson DO - 10/29/2023 5:08 PM EDT Signed Prescriptions: Disp Refills Gabapentin 600 MG Oral Tablet (Neurontin) 270 Ta*3 Sig: Take 1 Tablet by mouth in the morning and 1 Tablet at noon and 1 Tablet before bedtime. Authorizing Provider: NICOL WATSON * Telephone Encounter - Bk Villalta baby sitter - 10/29/2023 11:20 AM EDT Requesting high priority, Pt is out of medication. Did you pend patient's preferred pharmacy and medication before forwarding?yes Pharmacy: [id number] [id number] [facility] Pending Prescriptions: Disp Refills Gabapentin 600 MG Oral Tablet (Neurontin) 270 Ta*3 Sig: Take 1 Tablet by mouth in the morning and 1 Tablet at noon and 1 Tablet before bedtime. Last Visit: 12/06/2022 (in office), 11/09/2021 (telemedicine) Next Visit: Visit date not found If no future appointments scheduled, and last appointment is greater than a year ago, please schedule patient for a follow-up appointment Last date the medication was ordered: 11/15/22 Is this request for a controlled substance?No Urine Drug Screen:No results found. However, due to the size of the patient record, not all encounters were searched. Please check Results Review for a complete set of results. Patient Phone Numbers Labs: Lab Results Component Value Date/Time CREAT 1.1 2023 07:42 AM CREAT 1.1 10/18/2022 08:00 AM CREAT 1.2 04/21/2020 12:32 PM POTASSIUM 4.7 2023 07:42 AM POTASSIUM 4.6 04/21/2020 12:32 PM POTASSIUM 4.8 02/26/1996 09:05 AM TSH 0.54 10/03/2023 11:53 AM TSH 0.88 09/29/2008 02:20 PM TSH 0.65 02/26/1996 09:05 AM LDLCALC UNINTERPRETABLE RESULT 10/31/2018 07:52 AM LDLCALC 156. (H) 02/26/1996 09:05 AM LDLDIRECT 67 05/17/2022 03:36 PM LDLDIRECT 56 01/13/2020 10:55 AM LDLDIRECT 67 10/20/2013 09:52 AM ALT 23 2023 07:42 AM ALT 47 04/21/2020 12:32 PM HGBA1C 5.5 05/11/2021 11:39 AM documented in this encounter Plan of Treatment Upcoming Encounters Date Type Department Care Team (Late st Contact Info) Description 11/05/2023 3:25 PM EDT Office Visit Interventional Pain Center, [facility] [address] [facility] [place] [address] [address], [address] [place] [phone] 11/11/2023 10:00 AM EDT [facility] [address] [facility] [place] [address] 11/12/2023 2:30 PM EDT Telemedicine Neurosurgery, [place] [address] [place] [address] Dashawn Haines MD [facility] [address] [place], [place] [id number] 11/14/2023 7:30 AM EDT Laboratory Laboratory [facility] [place] [address] [facility] [place] [phone] Diane Lab [address] [facility] [place] [address] 11/14/2023 7:45 AM EDT Office Visit Hematology/Oncology [facility] [place] [address] [facility] [place] [phone] Lasha Christine MD [address] [facility] [place] [place] [address] 11/14/2023 8:15 AM EDT Hem/Onc Treatment Hematology/Oncology Treatment, [place] [address] [place] [phone] Diane, Chair 7 Hem Onc [address] [place] [address] 12/17/2023 10:00 AM EDT [facility]ment [facility] [address] [place] [address] 12/17/2023 10:30 AM EDT Office Visit Vascular Surg [facility], [place] [address] [place] [address] Margarito Cabrera MD [address] [place] [address] Scheduled Procedures Name Priority Associated Diagnoses Date/Ti [...] this encounter Medical Devices Implanted Type Area Sled Maker Device Identifier Shelf Expiration Date Model / Serial / Lot Stent Main Body Xyas-07-37-Zt - [id number] Implanted:Qty: 1 on 06/10/2014 by Ronal Gallegos MD at [place] [facility] Aorta [employer] 04/07/2016 TFFB-24-8 2-ZT / / Graft Iliac Leg Spirlz [id number] - [id number] Implanted:Qty: 1 on 06/10/2014 by Ronal Gallegos MD at OR [facility] Right: Aorta [employer] 10/09/2015 [id number] / / [id number] Description: Graft Iliac Leg Spirlz [id number] - [id number] Implanted:Qty: 1 on 06/10/2014 by Ronal Gallegos MD at OR [facility] Right: Femoral Artery [employer] 11/07/2016 [id number] / / [id number] Stent Polmer 29mm P3110 - [id number] Implanted:Qty: 1 on 06/10/2014 by Ronal Gallegos MD at OR [facility] N/A: Aorta JNJ : [employer] 07/26/2018 P3110 / / [id number] Codman Orbit Galaxy Coil 2.5mm X 3.5cm Implanted:Qty: 1 on 09/12/2015 by Arik Shin MD at OR [facility] Left: Head [employer]ODMAN 02/26/2017 [id number] / [id number] / [id number] Description:COMPLEX XTRASOFT detachable coil deployed left internal carotid artery Codman Orbit Galaxy Coil 2.5mm X 2.5cm Implanted:Qty: 1 on 09/12/2015 by Arik Shin MD at OR [facility] Left: Head [employer] 01/27/2016 [id number] / [id number] / [id number] Description:COMPLEX XTRASOFT detachable coil deployed left internal carotid artery aneurysm Codman Bentley 2 Stent 4mm X 30mm Implanted:Qty: 1 on 09/12/2015 by Arik Shin MD at OR [facility] Left: Head [employer] DEPUY 03/26/2018 [id number] / [id number] / [id number] Description:Vascular reconst ruction device deployed in left internal carotid artery Codman Orbit Galaxy Coil 6mm X 20cm Implanted:Qty: 1 on 09/12/2015 by Arik Shin MD at OR [facility] Left: Head [employer] 09/26/2016 [id number] / [id number] / [id number] Description:COMPLEX FILL det achable coil deployed left internal carotid artery aneurysm Codman Orbit Galaxy Coil 4mm X 10cm Implanted:Qty: 1 on 09/12/2015 by Arik Shin MD at OR [facility] Left: Head [employer] 10/27/2015 [id number] / [id number] / [id number] Description:COMPLEX XTRASOFT detachable coil deployed left internal carotid artery aneurysm Codman Orbit Galaxy Coil 3.5mm X 9cm Implanted:Qty: 1 on 09/12/2015 by Arik Shin MD at OR [facility] Left: Head [employer] 12/28/2015 [id number] / [id number] / [id number] Description:COMPLEX XTRASOFT detachable coil deployed left internal carotid artery aneurysm Codman Orbit Galaxy Coil 3mm X 6cm Implanted:Qty: 1 on 09/12/2015 by Arik Shin MD at OR [facility] Left: Head [employer] 04/28/2017 [id number] / [id number] / [id number] Description:COMPLEX XTRASOFT detachable coil deployed left internal carotid artery aneurysm Lens Intraoc 21.0 - [id number] - [id number] Implanted:Qty: 1 on 11/08/2020 by Yuri Bradley MD at OR [facility] Left: Eye [employer] 06/26/2025 [id number] / [id number] / [id number] Lens Intraoc 20.5 - [id number] - [id number] Implanted:Qty: 1 on 11/22/2020 by Yuri Bradley MD at OR [facility] Right: Eye [employer] LOMB 07/27/2025 [id number] / [id number] / [id number] Clip Quick 2.8mm 230cm - [id number] Implanted:Qty: 3 on 03/29/2021 by Luciana Fernandez MD at ENDOSCOPY [facility] [employer] 08/27/2023 HX-202UR. A / / Sureclip 16mm 235cm - [id number] Implanted:Qty: 2 on 05/07/2022 by Luciana Fernandez MD at ENDOSCOPY [facility] Colon MICRO TECH ENDOSCOPY 07/06/2024 [id number] / / Power Port 8fr Sngl Lumen Plas - [id number] Implanted:Qty: 1 on 01/30/2023 by Koko Santiago MD at OR [facility] N/A: Chest CR BARD : PERIPHERAL VASCULAR 07/27/2024 [id number] / / [id number] Power Port 8fr Sngl Lumen Plas - [id number] Implanted:Qty: 1 on 01/30/2023 by Koko Santiago MD at OR [facility] CR BARD : PERIPHERAL VASCULAR [id number] 07/27/2024 [id number] / / [id number] documented as of this encounter Visit Diagnoses [...] and were consensually agreed upon. Care Teams Roofer Helper Relationship Specialty Start Date End Date Nicol Watson DO [address] [facility] [place] [address] PCP - General Family Medicine 04/13/19 documented as of this encounter
--- OUTSIDE RECORDS SUMMARY | 2024-02-19 09:31 | External Medical Summary | Summary of Care ---
Author Name Unknown Organization [facility] Address [address] [place] [address] Phone [phone] Care Team Providers Care Orthodontic Technician Name Role Phone Mauro Watson DO Primary Care Provider Reason for Visit * Reason Comments Outpatient Testing Encounter Details Date Type Department Care Team (Latest Contact Info) Description 2023 7:10 AM EDT Laboratory Laboratory [facility] [address] [place] [phone] [facility] Lab Scene [address] [place] [address] Cholangiocarcinoma (HCC); Encounter for antineoplastic chemotherapy; 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); Other abnormal tumor markers; Malignant neoplasm of left lung, unspecified part of lung (HCC); 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); Anemia; Encounter for long-term (current) use of medications Allergies Active Allergy Reactions Criticality Noted Date Comments Aspirin Bleeding High 11/26/2011 Significant hemorroidal bleed on aspirin,high doses Duloxetine Hcl Hypertension 01/26/2020 documented as of this encounter (statuses as of 10/25/2023) Medications Medication Sig Dispensed Refills Start Date [...] as of this encounter (statuses as of 10/25/2023) Active Problems Problem Noted Date Diagnosed Date Malignant neoplasm of left lung 08/23/2023 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 01/21/2023 Encounter for antineoplastic chemotherapy 2022 Medical marijuana use 08/26/2021 CKD (chronic kidney disease), stage II 2 Overview: EGFR 72 Lumbar radiculopathy 05/27/2019 Atherosclerosis of [place] co ronary artery of [place] heart with angina pectoris 05/05/2019 History of colon polyps 08/12/2018 ACEI/ARB contraindicated 09/21/2016 Carotid aneurysm, left 09/13/2015 Overview: S/p coil embolization Cerebral aneurysm, nonruptured 09/05/2015 AAA (abdominal aortic aneurysm) 06/20/2015 Overview: S/p repair Bilateral carotid artery disease 06/20/2015 Medical home patient encounter 05/19/2014 Hypertriglyceridemia 05/16/2012 CORON ATHEROSCL DEERING CORON VESSEL 07/11/2010 Dyslipidemia, goal LDL below [...] as of this encounter (statuses as of 10/25/2023) Resolved Problems Problem Noted Date Diagnosed Date [...] as of this encounter (statuses as of 10/25/2023) Immunizations Name Administration Dates Next Due COVID-19 [...] Description 10/30/2023 1:00 PM EDT Telemedicine Neurosurgery, [place] [address] [place] [address] Dashawn Haines MD [address] [place] [address] 11/05/2023 3:25 PM EDT Office Visit [facility], [facility] [address] [place] [address] Wiliam Tam DO [address] [place] [phone] 11/11/2023 10:00 AM EDT Imaging Radiology [facility] 1[facility], [place] [address] [facility] [place] [address] 11/14/2023 7:30 AM EDT Laboratory Laboratory [facility] [place] [address] [place] [phone] Diane, Lab Scenery [address] [facility] [place] [address] 11/14/2023 7:45 AM EDT Office Visit Hematology/Oncology [facility] [address] [place] [phone] Lasha Christine MD [address] [place] [address] 11/14/2023 8:15 AM EDT Hem/Onc Treatment Hematology/Oncology Treatment, [place] [address] [place] [phone] Diane, Chair 7 Hem Onc [facility] [address] [facility] [place] [place] [address] 12/17/2023 10:00 AM EDT Appointment Vascular Lab [address] [address] 12/17/2023 10:30 AM EDT Office Visit Vascular Surg [place] [address] [place] [address] Margarito Cabrera MD [facility] [place] [address] Pending Results Name Type Priority Associated Diagnoses Date /Time VITAMIN B12 Lab Routine Malignant neoplasm of left lung, unspecified part of lung (HCC) 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) 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) Anemia Encounter for long-term (current) use of medications 2023 7:42 AM EDT IRON SCREEN, INCLUDING TIBC Lab Routine Malignant neoplasm of left lung, unspecified part of lung (HCC) 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) 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) Anemia 2023 7:42 AM EDT FOLIC ACID Lab Routine Malignant neoplasm of left lung, unspecified part of lung (HCC) 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) 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) Anemia Encounter for long-term (current) use of medications 2023 7:42 AM EDT FERRITIN Lab Routine Malignant neoplasm of left lung, unspecified part of lung (HCC) 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) 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) Anemia 2023 7:42 AM EDT SOLUBLE TRANSFERRIN RECEPTOR Lab Routine Malignant neoplasm of left lung, unspecified part of lung (HCC) 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) 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) Anemia Encounter for long-term (current) use of medications 2023 7:42 AM EDT Scheduled Procedures Name Priority [...] Colorectal Cancer Screening 11/03/2023 GFR 10/23/2024 2023, 06/0 09/2023, 09/12/2023, Additional [...] this encounter Medical Devices Implanted Type Area Cycle Specialist Device Identifier Shelf Expiration Date Model / Serial / Lot Stent Main Body Aebz-42-86-[id number] - [id number] Implanted:Qty: 1 on 06/10/2014 by Ronal Gallegos MD [place] [facility] Aorta [employer] 04/07/2016 [id number]-[id number] / / Graft Iliac Leg Spirlz 35u06wd - [id number] Implanted:Qty: 1 on 06/10/2014 by Ronal Gallegos MD [place] [facility] Right: Aorta [employer] 10/09/2015 [id number] / / [id number] Description: Graft Iliac Leg Spirlz 55u93av - [id number] Implanted:Qty: 1 on 06/10/2014 by Ronal Gallegos MD [place] [facility] Right: Femoral Artery [employer] 11/07/2016 [id number] / / [id number] Stent Polmer 29mm P3110 - [id number] Implanted:Qty: 1 on 06/10/2014 by Ronal Gallegos MD [place] [facility] N/A: Aorta JNJ : [employer]IS [employer] 07/26/2018 [id number] / / [id number] Codman Orbit Galaxy Coil 2.5mm X 3.5cm Implanted:Qty: 1 on 09/12/2015 by Arik Shin MD [place] [facility] Left: Head [employer]ENORA [employer] LENORA CODMAN 02/26/2017 [id number] / [id number] / [id number] Description:COMPLEX XTRASOFT detachable coil deployed left internal carotid artery Codman Orbit Galaxy Coil 2.5mm X 2.5cm Implanted:Qty: 1 on 09/12/2015 by Arik Shin MD [place] [facility] Left: Head LENORA [employer] [facility]A [facility] 01/27/2016 [id number] / [id number] / [id number] Description:COMPLEX XTRASOFT detachable coil deployed left internal carotid artery aneurysm Codman [place] 2 Stent 4mm X 30mm Implanted:Qty: 1 on 09/12/2015 by Arik Shin MD [place] [facility] Left: Head LENORA [employer] LENORA DEPUY 03/26/2018 [id number] / [id number] / [id number] Description:Vascular reconst ruction device deployed in left internal carotid artery Codman Orbit Galaxy Coil 6mm X 20cm Implanted:Qty: 1 on 09/12/2015 by Arik Shin MD [place] [facility] Left: Head [employer]A [employer] [facility] [facility] 09/26/2016 [id number] / [id number] / [id number] Description:COMPLEX FILL det achable coil deployed left internal carotid artery aneurysm Codman Orbit Galaxy Coil 4mm X 10cm Implanted:Qty: 1 on 09/12/2015 by Arik Shin MD [place] [facility] Left: Head LENORA & LENORA [facility] 10/27/2015 [id number] / [id number] / [id number] Description:COMPLEX XTRASOFT detachable coil deployed left internal carotid artery aneurysm Codman Orbit Galaxy Coil 3.5mm X 9cm Implanted:Qty: 1 on 09/12/2015 by Arik Shin MD [place] [facility] Left: Head LENORA [employer] [facility]A [facility] 12/28/2015 [id number] / [id number] / [id number] Description:COMPLEX XTRASOFT detachable coil deployed left internal carotid artery aneurysm Codman Orbit Galaxy Coil 3mm X 6cm Implanted:Qty: 1 on 09/12/2015 by Arik Shin MD [place] [facility] Left: Head LENORA [employer] LENORA CODMAN 04/28/2017 [id number] / [id number] / [id number] Description:COMPLEX XTRASOFT detachable coil deployed left internal carotid artery aneurysm Lens Intraoc 21.0 - [id number] - [id number] Implanted:Qty: 1 on 11/08/2020 by Yuri Bradley MD at OR [facility] Left: Eye BAUSCH [employer] LOMB 06/26/2025 [id number] / [id number] Lens Intraoc 20.5 - [id number] - [id number] Implanted:Qty: 1 on 11/22/2020 by Yuri Bradley MD at OR [facility] Right: Eye BAUSCH & LOMB 07/27/2025 [id number] / [id number] Clip Quick 2.8mm 230cm - [id number] Implanted:Qty: 3 on 03/29/2021 by Luciana Fernandez MD at ENDOSCOPY [facility] [employer] 08/27/2023 [id number] / / Sureclip 16mm 235cm - [id number] Implanted:Qty: 2 on 05/07/2022 by Luciana Fernandez MD at ENDOSCOPY [facility] Colon MICRO TECH ENDOSCOPY 07/06/2024 [id number] / / Power Port 8fr Sngl Lumen Plas - [id number] Implanted:Qty: 1 on 01/30/2023 by Koko Santiago MD at OR [facility] N/A: Chest CR BARD : PERIPHERAL VASCULAR 07/27/2024 [id number] / / [id number] Power Port 8fr Sngl Lumen Plas - [id number] Implanted:Qty: 1 on 01/30/2023 by Koko Santiago MD at [facility] CR BARD : PERIPHERAL VASCULAR [id number] 07/27/2024 [id number] / / [id number] documented as of this encounter Procedures Procedure Name Priority Date/Time Associated Diagnosis Comments DIFFERENTIAL, AUTOMATED STAT 2023 7:42 AM EDT Cholangiocarcinoma (HCC) Encounter for antineoplastic chemotherapy 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) Other abnormal tumor markers COMPREHENSIVE METABOLIC PANEL STAT 2023 7:42 AM EDT Cholangiocarcinoma (HCC) Encounter for antineoplastic chemotherapy 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) Other abnormal tumor markers CBC STAT 2023 7:42 AM EDT Cholangiocarcinoma (HCC) Encounter for antineoplastic chemotherapy 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) Other abnormal tumor markers CBC STAT 2023 7:42 AM EDT Cholangiocarcinoma (HCC) Encounter for antineoplastic chemotherapy 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) Other abnormal tumor markers DIFFERENTIAL, TECHNOLOGIST REVIEW Routine 2023 7:42 AM EDT Cholangiocarcinoma (HCC) Encounter for antineoplastic chemotherapy 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) Other abnormal tumor markers CEA STAT 2023 7:42 AM EDT Cholangiocarcinoma (HCC) Encounter for antineoplastic chemotherapy 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) Other abnormal tumor markers documented in this encounter Results * (ABNORMAL) DIFFERENTIAL, TECHNOLOGIST REVIEW (2023 7:42 AM EDT) WBC 5.36 4.00 - 10.80 K/uL 2023 8:39 AM EDT [facility] [place] [facility]02 Neutrophils % 68.0 40.0 - 75.0 % 2023 8:39 AM EDT [facility] [place] 56[facility]02 Lymphocytes % 22.0 18.0 - 42.0 % 2023 8:39 AM EDT [facility] [place] 56[facility]02 Monocytes % 9.0 1.0 - 11.0 % 2023 8:39 AM EDT [facility] [place] 56[facility]02 Metamyelocytes % 1.0(H) <=0.0 % 10/24/19 8:39 AM EDT [facility] [place] 56-02 Absolute Neutrophils 3.64 1.80 - 7.70 K/uL 2023 8:39 AM EDT [facility] [place] 56[facility]02 Absolute Lymphocytes 1.18 1.00 - 4.80 K/uL 2023 8:39 AM EDT [facility] 56-02 Absolute Monocytes 0.48 0.00 - 1.10 K/uL 2023 8:39 AM EDT [facility] [place] 56[facility]02 Absolute Metamyelocytes 0.05(H) <=0.00 K/uL 2023 8:39 AM EDT [facility] nRBCs 2023 8:39 AM EDT [facility] Blood Venous blood specimen / Unknown Venipuncture / Unknown 2023 7:42 AM EDT 2023 7:42 AM EDT Lasha Christine MD LAB BLOOD ORDERABLES Performing Organization Address [facility] Co de Phone Number [facility] [address] [place] [address] * DIFFERENTIAL, AUTOMATED (2023 7:42 AM EDT) Blood Venous blood specimen / Unknown Venipuncture / Unknown 2023 7:42 AM EDT 2023 7:42 AM EDT Lasha Christine MD LAB BLOOD ORDERABLES Performing Organization Address [facility] Co de Phone Number [facility] [address] [place] [phone] * (ABNORMAL) CBC (2023 7:42 AM EDT) WBC 5.36 4.00 - 10.80 K/uL 2023 8:39 AM EDT [facility] RBC 3.20 4.50 - 5.25 M/uL 2023 8:39 AM EDT [facility] HGB 9.8(L) 14.0 - 16.8 g/dL 2023 8:39 AM EDT [facility] HCT 32.2(L) 40.0 - 48.4 % 2023 8:39 AM EDT [facility] MCV 100.6 82.0 - 99.5 fL 2023 8:39 AM EDT [facility] MCH 30.6 27.0 - 34.0 pg 2023 8:39 AM EDT [facility] MCHC 30.4 32.0 - 36.0 g/dL 2023 8:39 AM EDT [facility] RDW 21.6 11.5 - 15.5 % 2023 8:39 AM EDT [facility] PLT 151 140 - 400 K/uL 2023 8:39 AM EDT [facility] MPV 10.9 6.6 - 11.1 fL 2023 8:39 AM EDT [facility] Blood Venous blood specimen / Unknown Venipuncture / Unknown 2023 7:42 AM EDT 2023 7:42 AM EDT Lasha Christine MD LAB BLOOD ORDERABLES [facility] [address] [place] [address] * (ABNORMAL) COMPREHENSIVE METABOLIC PANEL (2023 7:42 AM EDT) BUN 17 6 - 20 mg/dL 2023 8:15 AM EDT [facility] Creatinine 1.1 0.6 - 1.2 mg/dL 2023 8:15 AM T [place] [address] Estimated Glomerular Filtration Rate 75 >=60 mL/min 2023 8:15 AM T [facility] Comment:eGFR is calculated b ased on the CKD-EPI 2020 equation Sodium 138 135 - 146 mmol/L 2023 8:15 AM EDT [facility] Potassium 4.7 3.5 - 5.1 mmol/L 2023 8:15 AM T [facility] 56 Chloride 104 98 - 107 mmol/L 2023 8:15 AM EDT [facility] 56 CO2 17(L) 22 - 32 mmol/L 2023 8:15 AM EDT [facility] 56 Anion Gap 17(H) 7 - 15 mmol/L 2023 8:15 AM EDT [facility] Glucose 180(H) 70 - 120 mg/dL 2023 8:15 AM EDT [facility] 56- Albumin 3.8 3.8 - 5.0 g/dL 2023 8:15 AM EDT [facility] 56- AST 56(H) 10 - 50 U/L 2023 8:15 AM EDT [facility] 56- Alkaline Phosphatase 179(H) 35 - 130 U/L 2023 8:15 AM EDT [facility] 56- Bilirubin, Total 0.4 <=1.2 mg/dL 2023 8:15 AM EDT [facility] 56- Calcium 9.6 8.4 - 10.2 mg/dL 2023 8:15 AM EDT [facility] 56- Protein 7.7 6.0 - 8.3 g/dL 2023 8:15 AM EDT [facility] 56- ALT 23 10 - 50 U/L 2023 8:15 AM EDT [facility] 56- Blood Venous blood specimen / Unknown Venipuncture / Unknown 2023 7:42 AM EDT 2023 7:42 AM EDT Lasha Christine MD LAB BLOOD ORDERABLES [facility] 56-02 [address] [place] [address] * (ABNORMAL) CEA (2023 7:42 AM EDT) CEA 20,471.0(H ) <=5.2 ng/mL 2023 3:28 PM EDT [facility] Blood Venous blood specimen / Unknown Venipuncture / Unknown 2023 7:42 AM EDT 2023 7:42 AM EDT Lasha Christine MD LAB BLOOD ORDERABLES [facility] [address] [place] [address] documented in this encounter Visit Diagnoses Diagnosis Cholangiocarcinoma (HCC) Malignant neoplasm of intrahepatic bile ducts Encounter for antineoplastic chemotherapy 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) Other abnormal tumor markers Malignant neoplasm of left lung, unspecified part of lung (HCC) 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) Secondary malignant neoplasm of liver Anemia Anemia, unspecified Encounter for long-term (current) use of medications Encounter for long-term (current) use of other medications documented in this encounter Advance Directives * Full Code (Latest Code Status on File) Date Activated Date Inactivated Comments 09/12/2015 11:01 AM 09/13/2015 2:50 PM This order reflects the patients wishes and were consensually agreed upon. * Full Code Date Activated Date Inactivated Comments 06/10/2014 10:48 AM 06/11/2014 8:37 PM This order reflects the patients wishes and were consensually agreed upon. Care Teams Orthodontic Technician Relationship Specialty Start Date End Date Mauro Watson DO [address] [place] [address] PCP - General Family Medicine 04/13/19 documented as of this encounter
--- OUTSIDE RECORDS SUMMARY | 2024-02-19 09:32 | External Medical Summary ---
Author Name Unknown Address Unknown Organization K09[facility] [place] [address] Laboratory Report Ordering Provider Test Date Status ANN KLEIN 2023 07:42:54 Final Observation Date Value Abnormality Reference (Units ) Status SYNC LEUKOCYTES IN BLOOD BY AUTOMATED COUNT 2023 07:42:54 5.36 4.00-10.80 (K/uL) Final Neutrophils/100 leukocytes in Blood by Manual count 2023 07:42:54 68.0 40.0-75.0 (%) Final Lymphocytes/100 leukocytes in Blood by Manual count 2023 07:42:54 22.0 18.0-42.0 (%) Final Monocytes/100 leukocytes in Blood by Manual count 2023 07:42:54 9.0 1.0-11.0 (%) Final Metamyelocytes/100 leukocytes in Blood by Manual count 2023 07:42:54 1.0 Above high normal <=0.0 (%) Final Neutrophils [#/volume] in Blood by Manual count 2023 07:42:54 3.64 1.80-7.70 (K/uL) Final Lymphocytes [#/volume] in Blood by Manual count 2023 07:42:54 1.18 1.00-4.80 (K/uL) Final Monocytes [#/volume] in Blood by Manual count 2023 07:42:54 0.48 0.00-1.10 (K/uL) Final Metamyelocytes [#/volume] in Blood by Manual count 2023 07:42:54 0.05 Above high normal <=0.00 (K/uL) Final Nucleated erythrocytes/100 leukocytes [Ratio] in Blood by Automated count 2023 07:42:54 Final Performing Location [facility] [place] [address]
--- OUTSIDE RECORDS SUMMARY | 2024-02-19 09:32 | External Medical Summary | Summary of Care ---
Author Name Unknown Organization [facility] Address [address] [place] [address] Phone [phone] Care Team Providers Care Pelt Salter Name Role Phone Mauro Watson DO Primary Care Provider Reason for Visit * Reason Comments Outpatient Testing Encounter Details Date Type Department Care Team (Latest Contact Info) Description 2023 7:10 AM EDT Laboratory Laboratory [facility] [address] [place] [phone] [place], [address] [place] [address] Cholangiocarcinoma (HCC); Encounter for antineoplastic chemotherapy; Metastatic [...] EGFR 72 Lumbar radiculopathy 05/27/2019 Atherosclerosis of [place] co ronary artery of [place] heart with angina pectoris 05/05/2019 History of [...] Care Team (Late st Contact Info) Description 2023 8:15 AM EDT Office Visit Hematology/Oncology [address] [place] [address] Lasha Christine MD 200 [facility] [place] [address] 2023 8:45 AM EDT Hem/Onc Treatment Hematology/Oncology Treatment, [place] 200 [facility] [place] [phone] Diane, Chair 2 Hem Onc [place] [address] [place] [address] Arrived 10/30/2023 1:00 PM EDT Telemedicine [facility] [place] [address] [facility] [place] [address] Dashawn Haines MD [address] [place] [address] 11/05/2023 3:25 PM EDT Office Visit Interventional Pain Center, [facility] [address] [facility] [place] [address] Wiliam Tam DO [facility] [place] [address] 11/11/2023 10:00 AM EDT Imaging Radiology [facility] [address] [place] [address] 12/17/2023 10:00 AM EDT Appointment Vascular Lab [address] [address] 12/17/2023 10:30 AM EDT Office Visit Vascular Surg [place] [address] [place] [address] Margarito Cabrera MD [facility] [place] [address] Pending Results Name Type Priority Associated Diagnoses Date /Time CEA Lab STAT Cholangiocarcinoma (HCC) Encounter for antineoplastic chemotherapy 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) Other abnormal tumor markers 2023 7:42 AM EDT COMPREHENSIVE METABOLIC PANEL Lab STAT Cholangiocarcinoma (HCC) Encounter for antineoplastic chemotherapy 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) Other abnormal tumor markers 2023 7:42 AM EDT CBC WITH WBC DIFFERENTIAL Lab STAT Cholangiocarcinoma (HCC) Encounter for antineoplastic chemotherapy 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) Other abnormal tumor markers 2023 7:42 AM EDT CBC Lab STAT Cholangiocarcinoma (HCC) Encounter for antineoplastic chemotherapy 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) Other abnormal tumor markers 2023 7:42 AM EDT DIFFERENTIAL, AUTOMATED Lab STAT Cholangiocarcinoma (HCC) Encounter for antineoplastic chemotherapy 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) Other abnormal tumor markers 2023 7:42 AM EDT Scheduled Procedures Name [...] history exists Colorectal Cancer Screening 11/03/2023 GFR 10/02/2024 10/03/2023, 08/27, 08/22/2023, Additional history exists Albumin/Creatinine Ratio 05/17/2025 05/17/2022, [...] this encounter Medical Devices Implanted Type Area Eligibility Analyst Device Identifier Shelf Expiration Date Model / Serial / Lot Stent Main Body Oxxp-69-00-Zt - [id number] Implanted:Qty: 1 on 06/10/2014 by Ronal Gallegos MD [place] [facility] Aorta [employer] 04/07/2016 TFFB-24-8 2-ZT / / Graft Iliac Leg Spirlz 40b06yc - [id number] Implanted:Qty: 1 on 06/10/2014 by Ronal Gallegos MD [place] [facility] Right: Aorta [employer] 10/09/2015 [id number] / / [id number] Description: Graft Iliac Leg Spirlz 22p37ey - [id number] Implanted:Qty: 1 on 06/10/2014 by Ronal Gallegos MD at [place] [facility] Right: Femoral Artery [employer] 11/07/2016 [id number] / / [id number] Stent Polmer 29mm P3110 - [id number] Implanted:Qty: 1 on 06/10/2014 by Ronal Gallegos MD at [place] [facility] N/A: Aorta JNJ : CORDIS ENDOVASCULAR 07/26/2018 [id number] / / [id number] Codman Orbit Galaxy Coil 2.5mm X 3.5cm Implanted:Qty: 1 on 09/12/2015 by Arik Shin MD at [place] [facility] Left: Head LENORA [employer] LENORA CODMAN 02/26/2017 [id number] / [id number] / [id number] Description:COMPLEX XTRASOFT detachable coil deployed left internal carotid artery Codman Orbit Galaxy Coil 2.5mm X 2.5cm Implanted:Qty: 1 on 09/12/2015 by Arik Shin MD at [place] [facility] Left: Head LENORA [employer] LENORA CODMAN 01/27/2016 [id number] / [id number] / [id number] Description:COMPLEX XTRASOFT detachable coil deployed left internal carotid artery aneurysm Codman [place] 2 Stent 4mm X 30mm Implanted:Qty: 1 on 09/12/2015 by Arik Shin MD at [place] [facility] Left: Head LENORA & LENORA DEPUY 03/26/2018 [id number] / [id number] / [id number] Description:Vascular reconst ruction device deployed in left internal carotid artery Codman Orbit Galaxy Coil 6mm X 20cm Implanted:Qty: 1 on 09/12/2015 by Arik Shin MD at [place] [facility] Left: Head LENORA [employer] LENORA CODMAN 09/26/2016 [id number] / [id number] / [id number] Description:COMPLEX FILL det achable coil deployed left internal carotid artery aneurysm Codman Orbit Galaxy Coil 4mm X 10cm Implanted:Qty: 1 on 09/12/2015 by Arik Shin MD at [place] [facility] Left: Head LENORA [employer] LENORA CODMAN 10/27/2015 [id number] / [id number] / [id number] Description:COMPLEX XTRASOFT detachable coil deployed left internal carotid artery aneurysm Codman Orbit Galaxy Coil 3.5mm X 9cm Implanted:Qty: 1 on 09/12/2015 by Arik Shin MD at [place] [facility] Left: Head LENORA [employer] LENORA CODMAN 12/28/2015 [id number] / [id number] / [id number] Description:COMPLEX XTRASOFT detachable coil deployed left internal carotid artery aneurysm Codman Orbit Galaxy Coil 3mm X 6cm Implanted:Qty: 1 on 09/12/2015 by Arik Shin MD at [place] [facility] Left: Head LENORA [employer] LENORA CODMAN 04/28/2017 [id number] / [id number] / [id number] Description:COMPLEX XTRASOFT detachable coil deployed left internal carotid artery aneurysm Lens Intraoc 21.0 - [id number] - [id number] Implanted:Qty: 1 on 11/08/2020 by Yuri Bradley MD at OR [facility] Left: Eye BAUSCH & LOMB 06/26/2025 [id number] / [id number] / [id number] Lens Intraoc 20.5 - [id number] - [id number] Implanted:Qty: 1 on 11/22/2020 by Yuri Bradley MD at OR [facility] Right: Eye BAUSCH & LOMB 07/27/2025 [id number] / [id number] / [id number] Clip Quick 2.8mm 230cm - [id number] Implanted:Qty: 3 on 03/29/2021 by Luciana Fernandez MD at ENDOSCOPY [facility] [employer] 08/27/2023 HX-202UR. A / / Sureclip 16mm 235cm - [id number] Implanted:Qty: 2 on 05/07/2022 by Luciana Fernandez MD at ENDOSCOPY [facility] Colon MICRO TECH ENDOSCOPY 07/06/2024 [id number] / / Power Port 8fr Sngl Lumen Plas - [id number] Implanted:Qty: 1 on 01/30/2023 by Koko Santiago MD at OR [facility] N/A: Chest CR BARD : PERIPHERAL VASCULAR 07/27/2024 [id number] / / [id number] Power Port 8fr Sngl Lumen Plas - [id number] Implanted:Qty: 1 on 01/30/2023 by Koko Santiago MD at OR [facility] CR BARD : PERIPHERAL VASCULAR [id number] 07/27/2024 [id number] / / [id number] documented as of this encounter Visit Diagnoses [...] and were consensually agreed upon. Care Teams Pelt Salter Relationship Specialty Start Date End Date Mauro Watson DO [address] [place] [address] PCP - General Family Medicine 04/13/19 documented as of this encounter
--- OUTSIDE RECORDS SUMMARY | 2024-02-19 09:32 | External Medical Summary ---
Author Name Unknown Address Unknown Organization K01:[facility] - [address] [place] [address] Laboratory Report Ordering Provider Test Date Status ERNIEJUAREZ 2023 07:42:54 Final Observation Date Value Abnormality Reference (Units ) Status Ferritin 2023 07:42:54 674 Above high normal 30 -400 (ng/mL) Final Performing Location [facility] - [address] [place] [address]
--- OUTSIDE RECORDS SUMMARY | 2024-02-19 09:32 | External Medical Summary ---
Author Name Unknown Address Unknown Organization K01:[facility] [place] - [address] [place] [address] Laboratory Report Ordering Provider Test Date Status ANN KLEIN 2023 07:42:54 Final Observation Date Value Abnormality Reference (Units ) Status Folic Acid 2023 07:42:54 >20.0 >4.5 (ng/ mL) Final Performing Location [facility] - [address] [place] [address]
--- OUTSIDE RECORDS SUMMARY | 2024-02-19 09:32 | External Medical Summary | Summary of Care ---
Author Name Unknown Organization [facility] Address [address] [place] [address] Phone [phone] Care Team Providers Care Process Control Technician Name Role Phone Mauro Watson DO Primary Care Provider Encounter Details Date Type Department Care Team (Late st Contact Info) Description 07/23/2023 Telephone Family Practice [facility] [address] [place] [address] Mauro Watson DO [address] [place] [address] Allergies Active Allergy Reactions Criticality Noted Date Comments Aspirin Bleeding High 11/26/2011 Significant hemorroidal bleed on aspirin,high doses Duloxetine Hcl Hypertension 01/26/2020 documented as of this encounter (statuses as of 10/22/2023) Medications Medication Sig Dispensed Refills Start Date [...] as of this encounter (statuses as of 10/22/2023) Active Problems Problem Noted Date Diagnosed Date Malignant neoplasm of left lung 08/23/2023 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 01/21/2023 Encounter for antineoplastic chemotherapy 2022 Medical marijuana use 08/26/2021 CKD (chronic kidney disease), stage II 2 Overview: EGFR 72 Lumbar radiculopathy 05/27/2019 Atherosclerosis of [place] co ronary artery of [place] heart with angina pectoris 05/05/2019 History of colon polyps 08/12/2018 ACEI/ARB contraindicated 09/21/2016 Carotid aneurysm, left 09/13/2015 Overview: S/p coil embolization Cerebral aneurysm, nonruptured 09/05/2015 AAA (abdominal aortic aneurysm) 06/20/2015 Overview: S/p repair Bilateral carotid artery disease 06/20/2015 Medical home patient encounter 05/19/2014 Hypertriglyceridemia 05/16/2012 CORON ATHEROSCL [place] CORON VESSEL 07/11/2010 Dyslipidemia, goal LDL below [...] as of this encounter (statuses as of 10/22/2023) Resolved Problems Problem Noted Date Diagnosed Date [...] as of this encounter (statuses as of 10/22/2023) Immunizations Name Administration Dates Next Due COVID-19 [...] encounter Miscellaneous Notes * Telephone Encounter - Mauro Watson DO - 07/23/2023 2:08 PM EDT Patient would like to make sure he's on waiting list for Dr Tam in case anything sooner comes up -his back has been limiting his ability to tolerate his chemo appointments - thank you! documented in this encounter Plan of Treatment Upcoming Encounters Date Type Department Care Team (Late st Contact Info) Description 2023 7:10 AM EDT Laboratory Laboratory [facility] [place] [address] [place] [address] Diane Lab [facility] [address] [facility] [place] [address] 2023 8:15 AM EDT Office Visit Hematology/Oncology [facility] [place] [address] [facility] [place] [place] [address] Lasha Christine MD 200 [facility] [place] [place] [address] 2023 8:45 AM EDT Hem/Onc Treatment Hematology/Oncology Treatment, [place] [address] [place] [phone] Diane, Chair 2 Hem Onc [address] [place] [address] 10/30/2023 1:00 PM EDT Telemedicine [facility] [address] [place], [place] [phone] Dashawn Haines MD [address] [place] [address] 11/05/2023 3:25 PM EDT Office Visit Interventional Pain Center, [facility] [address] [facility] [place] [address] Wiliam Tam DO [address] [facility] [place] [address] 11/11/2023 10:00 AM EDT Imaging Radiology [facility] 132 [facility] [place] [address] 12/17/2023 10:00 AM EDT Appointment Vascular Lab [facility] [address] [place] [address] 12/17/2023 10:30 AM EDT Office Visit Vascular Surg [facility] [address] [place] [address] Margarito Cabrera MD [address] [place] [address] Scheduled Procedures Name Priority Associated Diagnoses Date/Ti [...] this encounter Medical Devices Implanted Type Area Floor Broker Device Identifier Shelf Expiration Date Model / Serial / Lot Stent Main Body Nbym-46-28-Zt - [id number] Implanted:Qty: 1 on 06/10/2014 by Ronal Gallegos MD [place] [facility] [place] Aorta [employer] 04/07/2016 TFFB-24-8 2-ZT / / Graft Iliac Leg Spirlz 75z08oa - [id number] Implanted:Qty: 1 on 06/10/2014 by Ronal Gallegos MD [place] [facility] [place] Right: Aorta [employer] 10/09/2015 [id number] / / [id number] Description: Graft Iliac Leg Spirlz 88u66rk - [id number] Implanted:Qty: 1 on 06/10/2014 by Ronal Gallegos MD [place] [facility] [place] Right: Femoral Artery [employer] 11/07/2016 [id number] / / [id number] Stent Polmer 29mm P3110 - [id number] Implanted:Qty: 1 on 06/10/2014 by Ronal Gallegos MD at [place] [facility] N/A: Aorta JNJ : CORDIS ENDOVASCULAR 07/26/2018 P3110 / / [id number] Codman Orbit Galaxy Coil 2.5mm X 3.5cm Implanted:Qty: 1 on 09/12/2015 by Arik Shin MD at [place] [facility] Left: Head [employer]A [employer] LEN[employer]A CODMAN 02/26/2017 [id number] / [id number] / [id number] Description:COMPLEX XTRASOFT detachable coil deployed left internal carotid artery Codman Orbit Galaxy Coil 2.5mm X 2.5cm Implanted:Qty: 1 on 09/12/2015 by Arik Shin MD at [place] [facility] Left: Head [employer]A [employer] LEN[employer]A CODMAN 01/27/2016 [id number] / [id number] / [id number] Description:COMPLEX XTRASOFT detachable coil deployed left internal carotid artery aneurysm Codman [place] 2 Stent 4mm X 30mm Implanted:Qty: 1 on 09/12/2015 by Arik Shin MD at [place] [facility] Left: Head LENORA [employer] LENORA DEPUY 03/26/2018 [id number] / [id number] / [id number] Description:Vascular reconst ruction device deployed in left internal carotid artery Codman Orbit Galaxy Coil 6mm X 20cm Implanted:Qty: 1 on 09/12/2015 by Arik Shin MD at [place] [facility] Left: Head LENORA & LENORA [facility] 09/26/2016 [id number] / [id number] / [id number] Description:COMPLEX FILL det achable coil deployed left internal carotid artery aneurysm Codman Orbit Galaxy Coil 4mm X 10cm Implanted:Qty: 1 on 09/12/2015 by Arik Shin MD at [place] [facility] Left: Head L[employer]EN[employer]A CODMAN 10/27/2015 [id number] / [id number] / [id number] Description:COMPLEX XTRASOFT detachable coil deployed left internal carotid artery aneurysm Codman Orbit Galaxy Coil 3.5mm X 9cm Implanted:Qty: 1 on 09/12/2015 by Arik Shin MD at [place] [facility] Left: Head LEN[employer]A [employer] LEN[employer]A CODMAN 12/28/2015 [id number] / [id number] / [id number] Description:COMPLEX XTRASOFT detachable coil deployed left internal carotid artery aneurysm Codman Orbit Galaxy Coil 3mm X 6cm Implanted:Qty: 1 on 09/12/2015 by Arik Shin MD at [place] [facility] Left: Head LENORA [employer] LENORA CODMAN 04/28/2017 [id number] / [id number] / [id number] Description:COMPLEX XTRASOFT detachable coil deployed left internal carotid artery aneurysm Lens Intraoc 21.0 - [id number] - [id number] Implanted:Qty: 1 on 11/08/2020 by Yuri Bradley MD at [place] [facility] Left: Eye BAUSCH & LOMB 06/26/2025 [id number] / [id number] / [id number] Lens Intraoc 20.5 - [id number] - [id number] Implanted:Qty: 1 on 11/22/2020 by Yuri Bradley MD at OR [facility] Right: Eye BAUSCH & LOMB 07/27/2025 [id number] / [id number] / [id number] Clip Quick 2.8mm 230cm - [id number] Implanted:Qty: 3 on 03/29/2021 by Luciana Fernandez MD at ENDOSCOPY [facility] [employer] 08/27/2023 HX-202UR. A / / Sureclip 16mm 235cm - [id number] Implanted:Qty: 2 on 05/07/2022 by Luciana Fernandez MD at ENDOSCOPY [facility] Colon MICRO TECH ENDOSCOPY 07/06/2024 [id number] / / Power Port 8fr Sngl Lumen Plas - [id number] Implanted:Qty: 1 on 01/30/2023 by Koko Santiago MD at OR [facility] N/A: Chest CR BARD : PERIPHERAL VASCULAR 07/27/2024 [id number] / / [id number] Power Port 8fr Sngl Lumen Plas - [id number] Implanted:Qty: 1 on 01/30/2023 by Koko Santiago MD at OR [facility] CR BARD : PERIPHERAL VASCULAR [id number] 07/27/2024 [id number] / / [id number] documented as of this encounter Advance Directives [...] were consensually agreed upon. Care Teams Process Control Technician Relationship Specialty Start Date End Date Mauro Watosn DO [address] [place] [address] PCP - General Family Medicine 04/13/19 documented as of this encounter
--- OUTSIDE RECORDS SUMMARY | 2024-02-19 09:32 | External Medical Summary | Summary of Care ---
Author Name Unknown Organization [facility] Address [address] [place] [address] Phone [phone] Care Team Providers Care Mva Still Operator Name Role Phone Mauro Watson DO [...] INJECTION [place] FOSAPREPITANT INJECTION Lasha Christine MD [address] [place] [address] Anc Hem/Onc [address] [address] Referral ID Status Reason Start Date Expiration Date V isits Requested Visits Authorized [id number] Authorized 08/22/2023 04/28/[phone] Encounter Details Date Type Department Care Team (Latest Contact Info) Description 2023 8:45 AM EDT Hem/Onc Treatment Hematology/Oncolog y Treatment, [address] [address] Diane, Chair 2 Hem Onc [address] [place] [address] Encounter for antineoplastic chemotherapy*; Metastatic carcinoma involving [...] EGFR 72 Lumbar radiculopathy 05/27/2019 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 05/05/2019 History of colon polyps 08/12/2018 ACEI/ARB contraindicated 09/21/2016 Carotid aneurysm, left 09/13/2015 Overview: S/p coil embolization Cerebral aneurysm, nonruptured 09/05/2015 AAA (abdominal aortic aneurysm) 06/20/2015 Overview: S/p repair Bilateral carotid artery disease 06/20/2015 Medical home patient encounter 05/19/2014 Hypertriglyceridemia 05/16/2012 CORON ATHEROSCL [place] CORON VESSEL 07/11/2010 Dyslipidemia, goal LDL below [...] Info) Description 10/30/2023 1:00 PM EDT Telemedicine Neurosurgery[address] [address] Dashawn Haines MD [address] [place] [address] 11/05/2023 3:25 PM EDT Office Visit Interventional Pain Center, [facility] [address] [place] [address] Wiliam Tam DO [address] [facility] [place] [address] 11/11/2023 10:00 AM EDT Imaging Radiology [facility] 1st [facility] [address] 11/14/2023 7:30 AM EDT Laboratory Laboratory [facility] [place] [address] [place] [phone] Zeyad Contreras [address] [place] [address] 11/14/2023 7:45 AM EDT Office Visit Hematology/Oncology [facility] [place] [address] [place] [address] Lasha Christine MD [address] [place] [address] 11/14/2023 8:15 AM EDT Hem/Onc Treatment Hematology/Oncology Treatment, [place] [address] [place], [place] [address] Diane, Chair 7 Hem Onc [address] [place], [place] [address] 12/17/2023 10:00 AM EDT Appointment Vascular Lab [facility], [place] [address] [place] [address] 12/17/2023 10:30 AM EDT Office Visit Vascular Surg [facility], [place] [address] [place] [address] Margarito Cabrera MD [address] [place] [address] Scheduled Procedures Name Priority Associated Diagnoses Date/Ti [...] this encounter Medical Devices Implanted Type Area Legislative Correspondent Device Identifier Shelf Expiration Date Model / Serial / Lot Stent Main Body Vkay-66-79-Zt - [id number] Implanted:Qty: 1 on 06/10/2014 by Ronal Gallegos MD at OR [facility] Aorta [employer] 04/07/2016 TFFB-24-8 2-ZT / / Graft Iliac Leg Spirlz 86d21ml - [id number] Implanted:Qty: 1 on 06/10/2014 by Ronal Gallegos MD at OR [facility] Right: Aorta [employer] 10/09/2015 [id number] / / [id number] Description: Graft Iliac Leg Spirlz 02a01fj - [id number] Implanted:Qty: 1 on 06/10/2014 by Ronal Gallegos MD at OR [facility] Right: Femoral Artery [employer] 11/07/2016 [id number] / / [id number] Stent Polmer 29mm P3110 - [id number] Implanted:Qty: 1 on 06/10/2014 by Ronal Gallegos MD at OR [facility] N/A: Aorta JNJ : CORDIS ENDOVASCULAR 07/26/2018 P3110 / / [id number] Codman Orbit Galaxy Coil 2.5mm X 3.5cm Implanted:Qty: 1 on 09/12/2015 by Arik Shin MD at OR [facility] Left: Head [employer]A [employer] LEN[employer]A CODMAN 02/26/2017 [id number] / [id number] / [id number] Description:COMPLEX XTRASOFT detachable coil deployed left internal carotid artery Codman Orbit Galaxy Coil 2.5mm X 2.5cm Implanted:Qty: 1 on 09/12/2015 by Arik Shin MD at OR [facility] Left: Head [employer]A [employer] LENORA CODMAN 01/27/2016 [id number] / [id number] / [id number] Description:COMPLEX XTRASOFT detachable coil deployed left internal carotid artery aneurysm Codman [place] 2 Stent 4mm X 30mm Implanted:Qty: 1 on 09/12/2015 by Arik Shin MD at OR [facility] Left: Head LENORA [employer] LENORA DEPUY 03/26/2018 [id number] / [id number] / [id number] Description:Vascular reconst ruction device deployed in left internal carotid artery Codman Orbit Galaxy Coil 6mm X 20cm Implanted:Qty: 1 on 09/12/2015 by Arik Shin MD at OR [facility] Left: Head [employer]A [employer] LEN[employer]A CODMAN 09/26/2016 [id number] / [id number] / [id number] Description:COMPLEX FILL det achable coil deployed left internal carotid artery aneurysm Codman Orbit Galaxy Coil 4mm X 10cm Implanted:Qty: 1 on 09/12/2015 by Arik Shin MD at OR [facility] Left: Head [employer]A [employer]EN[employer]A C[employer] 10/27/2015 [id number] / [id number] / [id number] Description:COMPLEX XTRASOFT detachable coil deployed left internal carotid artery aneurysm Codman Orbit Galaxy Coil 3.5mm X 9cm Implanted:Qty: 1 on 09/12/2015 by Arik Shin MD at OR [facility] Left: Head LEN[employer]A [employer] LENORA CODMAN 12/28/2015 [id number] / [id number] / [id number] Description:COMPLEX XTRASOFT detachable coil deployed left internal carotid artery aneurysm Codman Orbit Galaxy Coil 3mm X 6cm Implanted:Qty: 1 on 09/12/2015 by Arik Shin MD at OR [facility] Left: Head LENORA [employer] LENORA CODMAN 04/28/2017 [id number] / [id number] / [id number] Description:COMPLEX XTRASOFT detachable coil deployed left internal carotid artery aneurysm Lens Intraoc 21.0 - [id number] - [id number] Implanted:Qty: 1 on 11/08/2020 by Yuri Bradley MD at OR [facility] Left: Eye BAUSCH & LOMB 06/26/2025 [id number] / [id number] / [id number] Lens Intraoc 20.5 - [id number] - [id number] Implanted:Qty: 1 on 11/22/2020 by Yuri Bradley MD at OR [facility] Right: Eye BAUSCH & LOMB 07/27/2025 [id number] / [id number] / [id number] Clip Quick 2.8mm 230cm - [id number] Implanted:Qty: 3 on 03/29/2021 by Luciana Fernandez MD at ENDOSCOPY [facility] [employer] 08/27/2023 HX-202UR. A / / Sureclip 16mm 235cm - [id number] Implanted:Qty: 2 on 05/07/2022 by Luciana Fernandez MD at ENDOSCOPY [facility] Colon MICRO TECH ENDOSCOPY 07/06/2024 [id number] / / Power Port 8fr Sngl Lumen Plas - [id number] Implanted:Qty: 1 on 01/30/2023 by Koko Santiago MD at OR [facility] N/A: Chest CR BARD : PERIPHERAL VASCULAR 07/27/2024 [id number] / / [id number] Power Port 8fr Sngl Lumen Plas - [id number] Implanted:Qty: 1 on 01/30/2023 by Koko Santiago MD at OR [facility] CR BARD : PERIPHERAL VASCULAR [id number] 07/27/2024 [id number] / / [id number] documented as of this encounter Visit Diagnoses [...] ONCE PRN Other, Hypersensitivity Reaction, Starting on Sat10/24/23 at 0850, Until Sat10/25/23 at 0849, For 24 hours EPINEPHrine 1 MG/ML inj 0.3 mg 0.3 mg, Intramuscular, ONCE PRN Other, Hypersensitivity Reaction or Anaphylaxis, Starting on Lizz 10/24/23 at 0850, Until Sat10/25/23 at 0849, For 24 hours hEParin 100 UNIT/ML Lock Flush inj 500 Units 500 Units (5 mL), IV Lock, PRN Other, IV Flush, Starting on Lizz 10/24/23 at 0850, Until Sat10/25/23 at 0849, For 24 hours, Do not flush if lock, PICC, or central line not in place; IV infusing or unable to flush. Given 2023 12:17 PM EDT 500 Units Hydrocortisone Sod Suc (PF) (Solu-Cortef) inj 100 mg 100 mg, IV Push, ONCE PRN Other, Hypersensitivity Reaction, Starting on Sat10/24/23 at 0850, Until Sat10/25/23 at 0849, For 24 hours LORAzepam (Ativan) tab 0.5 mg 0.5 mg, Oral, ONCE PRN Anxiety, Nausea, Starting on Sat10/24/23 at 1000, Until Discontinued NSS infusion Intravenous, at 50 mL/hr, PRN, Starting on Sat10/24/23 at 1000, Until Discontinued, Maintenance line Start Infusion 2023 9:05 AM EDT 50 mL/hr oxygen GAS Inhalation, OXYGEN, First dose on Sat10/24/23 at 0930, Until Discontinued, Device/Managed by: Low [...] Push, PRN Other, IV Flush, Starting on Sat10/24/23 at 0850, Until Sat10/25/23 at 0849, For 24 hours, Do not flush if lock, PICC, or central line not in place; IV infusing or unable to flush. Given 2023 12:17 PM EDT 10 mL Inactive Administered Medications [...] 9:06 AM EDT 150 mg 538.4 mL/hr NSS infusion FOR HYDRATION Intravenous, at 500 mL/hr Administer over 2 Hours, ONCE, 1 dose, On Lizz 10/24/23 at 0930 Start Infusion 2023 10:19 AM EDT 1,000 mL 500 mL/hr PEMEtrexed Disodium (Alimta) 900 mg in NSS 100 mL infusion 900 mg (rounded from 925 mg = 500 mg/m2 1.85 m2 Treatment Plan BSA from Recorded weight), IV Piggyback, ONCE, 1 dose, On Lizz 10/24/23 at 0945, Administer over 10 Minutes Start Infusion 2023 10:12 AM EDT 900 mg 630 mL/hr documented [...] and were consensually agreed upon. Care Teams Mva Still Operator Relationship Specialty Start Date End Date Mauro Watson DO [address] [place] [address] PCP - General Family Medicine 04/13/19 documented as of this encounter
--- OUTSIDE RECORDS SUMMARY | 2024-02-19 09:32 | External Medical Summary ---
Author Name Unknown Address Unknown Organization K01:LABORATORY [facility] - [address] [place] [address] Laboratory Report Ordering Provider Test Date Status ANN KLEIN 2023 07:42:54 Final Observation Date Value Abnormality Reference (Units ) Status CEA 2023 07:42:54 [address]75[address].0 Above high normal <= 5.2 (ng/mL) Final Performing Location LABORATORY [facility] - [address] [place] [address]
--- OUTSIDE RECORDS SUMMARY | 2024-02-19 09:32 | External Medical Summary ---
Author Name Unknown Address Unknown Organization K09:[facility] [place] [address] Laboratory Report Ordering Provider Test Date Status ANN KLEIN 2023 07:42:54 Final Observation Date Value Abnormality Reference (Units ) Status WBC, Total 2023 07:42:54 5.36 4.00-10.8 0 (K/uL) Final RBC 2023 07:42:54 3.20 4.50-5.25 (M/uL) Final Hemoglobin 2023 07:42:54 9.8 Below low normal 14 .0-16.8 (g/dL) Final HCT 2023 07:42:54 32.2 Below low normal 40. 0-48.4 (%) Final MCV 2023 07:42:54 100.6 82.0-99.5 (fL) Final MCH 2023 07:42:54 30.6 27.0-34.0 (pg) Final MCHC 2023 07:42:54 30.4 32.0-36.0 (g/dL) Final RDW 2023 07:42:54 21.6 11.5-15.5 (%) Final Platelets 2023 07:42:54 151 140-400 (K /uL) Final MPV 2023 07:42:54 10.9 6.6-11.1 ( fL) Final Performing Location [facility] [place] [address]
--- OUTSIDE RECORDS SUMMARY | 2024-02-19 09:32 | External Medical Summary | Summary of Care ---
Author Name Unknown Organization [facility] Address [address] [place] [address] Phone [phone] Care Team Providers Care Luggage Attendant Name Role Phone Walter Mauro Leonardogordy Primary Care Provider Encounter Details Date Type Department Care Team (Late st Contact Info) Description 10/04/2023 Orders Only Hematology/Oncology [facility] [place] [address] [place] [phone] Lasha Christine MD [address] [place] [address] Allergies Active Allergy Reactions Criticality Noted Date Comments Aspirin Bleeding High 11/26/2011 Significant hemorroidal bleed on aspirin,high doses Duloxetine Hcl Hypertension 01/26/2020 documented as of this encounter (statuses as of 10/21/2023) Medications Medication Sig Dispensed Refills Start Date [...] as of this encounter (statuses as of 10/21/2023) Active Problems Problem Noted Date Diagnosed Date Malignant neoplasm of left lung 08/23/2023 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 01/21/2023 Encounter for antineoplastic chemotherapy 2022 Medical marijuana use 08/26/2021 CKD (chronic kidney disease), stage II 2 Overview: EGFR 72 Lumbar radiculopathy 05/27/2019 Atherosclerosis of [place] co ronary artery of [place] heart with angina pectoris 05/05/2019 History of colon polyps 08/12/2018 ACEI/ARB contraindicated 09/21/2016 Carotid aneurysm, left 09/13/2015 Overview: S/p coil embolization Cerebral aneurysm, nonruptured 09/05/2015 AAA (abdominal aortic aneurysm) 06/20/2015 Overview: S/p repair Bilateral carotid artery disease 06/20/2015 Medical home patient encounter 05/19/2014 Hypertriglyceridemia 05/16/2012 CORON ATHEROSCL [place] CORON VESSEL 07/11/2010 Dyslipidemia, goal LDL below [...] as of this encounter (statuses as of 10/21/2023) Resolved Problems Problem Noted Date Diagnosed Date [...] as of this encounter (statuses as of 10/21/2023) Immunizations Name Administration Dates Next Due COVID-19 [...] Description 2023 7:10 AM EDT Laboratory Laboratory [facility] [place] [address] [place] [phone] Diane Lab [facility] [address] [facility] [place] [address] 2023 8:15 AM EDT Office Visit Hematology/Oncology [facility] [place] [address] [place] [phone] Lasha Christine MD [address] [place] [address] 2023 8:45 AM EDT Hem/Onc Treatment Hematology/Oncology Treatment, [place] [address] [place] [phone] Diane, Chair 2 Hem Onc [facility] [address] [place] [address] 10/30/2023 1:00 PM EDT Telemedicine Neurosurgery, [place] [address] [place] [address] Dashawn Haines MD [address] [place] [address] 11/05/2023 3:25 PM EDT Office Visit Interventional Pain Center, [facility] [address] [place] [address] Wiliam Tam DO [address] [place] [address] 11/11/2023 10:00 AM EDT Imaging Radiology [facility] 1st [facility], [place] [address] [place] [address] 12/17/2023 10:00 AM EDT Appointment Vascular Lab [place] [address] [place] [address] 12/17/2023 10:30 AM EDT Office Visit Vascular Surg [facility] [address] [place] [address] Margarito Cabrera MD [address] [place] [address] Scheduled Procedures Name Priority Associated Diagnoses Date/Ti [...] this encounter Medical Devices Implanted Type Area Lobster Man Device Identifier Shelf Expiration Date Model / Serial / Lot Stent Main Body Ggie-36-88-Zt - [id number] Implanted:Qty: 1 on 06/10/2014 by Ronal Gallegos MD at OR [facility] Aorta [employer] 04/07/2016 [facility]-24-8 2-ZT / / Graft Iliac Leg Spirlz 18e26wf - [id number] Implanted:Qty: 1 on 06/10/2014 by Ronal Gallegos MD at OR [facility] Right: Aorta [employer] 10/09/2015 [id number] / / [id number] Description: Graft Iliac Leg Spirlz 48b91mm - [id number] Implanted:Qty: 1 on 06/10/2014 by Ronal Gallegos MD at OR [facility] Right: Femoral Artery [employer] 11/07/2016 [id number] / / [id number] Stent Polmer 29mm P3110 - [id number] Implanted:Qty: 1 on 06/10/2014 by Ronal Gallegos MD at OR [facility] N/A: Aorta JNJ : CORDIS ENDOVASCULAR 07/26/2018 P3110 / / [id number] Codman Orbit Galaxy Coil 2.5mm X 3.5cm Implanted:Qty: 1 on 09/12/2015 by Arik Shin MD at OR [facility] Left: Head LENORA [employer] LENORA [facility] 02/26/2017 [id number] / [id number] / [id number] Description:COMPLEX XTRASOFT detachable coil deployed left internal carotid artery Codman Orbit Galaxy Coil 2.5mm X 2.5cm Implanted:Qty: 1 on 09/12/2015 by Arik Shin MD at OR [facility] Left: Head [employer]A [employer] LENORA CODMAN 01/27/2016 [id number] / [id number] / [id number] Description:COMPLEX XTRASOFT detachable coil deployed left internal carotid artery aneurysm Codman [place] 2 Stent 4mm X 30mm Implanted:Qty: 1 on 09/12/2015 by Arik Shin MD at OR [facility] Left: Head LENORA [employer] LENORA DEPUY 03/26/2018 [id number] / [id number] / [id number] Description:Vascular reconst ruction device deployed in left internal carotid artery Codman Orbit Galaxy Coil 6mm X 20cm Implanted:Qty: 1 on 09/12/2015 by Arik Shin MD at OR [facility] Left: Head LENORA & LENORA [facility] 09/26/2016 [id number] / [id number] / [id number] Description:COMPLEX FILL det achable coil deployed left internal carotid artery aneurysm Codman Orbit Galaxy Coil 4mm X 10cm Implanted:Qty: 1 on 09/12/2015 by Arik Shin MD at OR [facility] Left: Head [employer]A [employer] LENORA CODMAN 10/27/2015 [id number] / [id number] / [id number] Description:COMPLEX XTRASOFT detachable coil deployed left internal carotid artery aneurysm Codman Orbit Galaxy Coil 3.5mm X 9cm Implanted:Qty: 1 on 09/12/2015 by Arik Shin MD at OR [facility] Left: Head LENORA & LENOAR CODMAN 12/28/2015 [id number] / [id number] / [id number] Description:COMPLEX XTRASOFT detachable coil deployed left internal carotid artery aneurysm Codman Orbit Galaxy Coil 3mm X 6cm Implanted:Qty: 1 on 09/12/2015 by Arik Shin MD at OR [facility] Left: Head LENORA [employer] LENORA CODMAN 04/28/2017 [id number] / [id number] / [id number] Description:COMPLEX XTRASOFT detachable coil deployed left internal carotid artery aneurysm Lens Intraoc 21.0 - [id number] - [id number] Implanted:Qty: 1 on 11/08/2020 by Yuri Bradley MD at OR [facility] Left: Eye BAUSCH & LOMB 06/26/2025 [id number] / [id number] / [id number] Lens Intraoc 20.5 - [id number] - [id number] Implanted:Qty: 1 on 11/22/2020 by Yuri Bradley MD at OR [facility] Right: Eye BAUSCH & LOMB 07/27/2025 [id number] / [id number] / [id number] Clip Quick 2.8mm 230cm - [id number] Implanted:Qty: 3 on 03/29/2021 by Luciana Fernandez MD at ENDOSCOPY [facility] [employer] 08/27/2023 HX-202UR. A / / Sureclip 16mm 235cm - [id number] Implanted:Qty: 2 on 05/07/2022 by Luciana Fernandez MD at ENDOSCOPY [facility] Colon MICRO TECH ENDOSCOPY 07/06/2024 [id number] / / Power Port 8fr Sngl Lumen Plas - [id number] Implanted:Qty: 1 on 01/30/2023 by Koko Santiago MD at OR [facility] N/A: Chest CR BARD : PERIPHERAL VASCULAR 07/27/2024 [id number] / / [id number] Power Port 8fr Sngl Lumen Plas - [id number] Implanted:Qty: 1 on 01/30/2023 by Koko Santiago MD at OR [facility] CR BARD : PERIPHERAL VASCULAR [id number] 07/27/2024 [id number] / / [id number] documented as of this encounter Advance Directives [...] and were consensually agreed upon. Care Teams Luggage Attendant Relationship Specialty Start Date End Date Mauro Watson DO [address] [place] [address] PCP - General Family Medicine 04/13/19 documented as of this encounter
--- OUTSIDE RECORDS SUMMARY | 2024-02-19 09:32 | External Medical Summary | Summary of Care ---
Author Name Unknown Organization [facility] Address [address] [place] [address] Phone [phone] Care Team Providers Care Supervisor Ticket Sales Name Role Phone Mauro Watson DO Primary Care Provider Reason for Visit * Reason Comments Chemotherapy C4,D1 Alimta/Carbo/H ydration * Episode Based Medications (Routine) - Authorized Specialty Diagnoses / Procedures Referred By Edmund t Referred To Contact Diagnoses Encounter for antineoplastic chemotherapy 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) Malignant neoplasm of left lung, unspecified part of lung (HCC) Procedures NV INJ. PEMETREXED NOS 10MG NV CARBOPLATIN INJECTION [place] FOSAPREPITANT INJECTION Lasha Christine MD [address] [place] [address] Anc Hem/Onc [address] [address] Referral ID Status Reason Start Date Expiration Date V isits Requested Visits Authorized [id number] Authorized 08/22/2023 04/28/2099 999 99 Encounter Details Date Type Department Care Team (Latest Contact Info) Description 2023 8:45 AM EDT Hem/Onc Treatment Hematology/Oncolog y Treatment, [address] [address] Diane, Chair 2 Hem Onc [address] [place] [address] Encounter for antineoplastic chemotherapy*; Metastatic carcinoma involving [...] EGFR 72 Lumbar radiculopathy 05/27/2019 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 05/05/2019 History of colon polyps 08/12/2018 ACEI/ARB contraindicated 09/21/2016 Carotid aneurysm, left 09/13/2015 Overview: S/p coil embolization Cerebral aneurysm, nonruptured 09/05/2015 AAA (abdominal aortic aneurysm) 06/20/2015 Overview: S/p repair Bilateral carotid artery disease 06/20/2015 Medical home patient encounter 05/19/2014 Hypertriglyceridemia 05/16/2012 CORON ATHEROSCL [place] CORON VESSEL 07/11/2010 Dyslipidemia, goal LDL below [...] Info) Description 10/30/2023 1:00 PM EDT Telemedicine Neurosurgery[address] [address] Dashawn Haines MD [address] [place] [address] 11/05/2023 3:25 PM EDT Office Visit Interventional Pain Center, [facility] [address] [facility] [place] [address] Wiliam Tam DO [address] [facility] [place] [address] 11/11/2023 10:00 AM EDT Imaging Radiology [facility] 1st [facility] [address] 11/14/2023 7:30 AM EDT Laboratory Laboratory [facility] [place] [address] [place] [phone] [address] [place] [address] 11/14/2023 7:45 AM EDT Office Visit Hematology/Oncology [facility] [place] [address] [place] [address] Lasha Christine MD [address] [place] [address] 11/14/2023 8:15 AM EDT Hem/Onc Treatment Hematology/Oncology Treatment, [place] [address] [place], [place] [address] Diane, Chair 7 Hem Onc [address] [place], [place] [address] 12/17/2023 10:00 AM EDT Appointment Vascular Lab [facility], [place] [address] [place] [address] 12/17/2023 10:30 AM EDT Office Visit Vascular Surg [facility], [place] [address] [place] [address] Margarito Cabrera MD [address] [place] [address] Scheduled Procedures Name Priority Associated Diagnoses Date/Ti [...] this encounter Medical Devices Implanted Type Area Oil Dispenser Device Identifier Shelf Expiration Date Model / Serial / Lot Stent Main Body Lknz-85-47-Zt - [id number] Implanted:Qty: 1 on 06/10/2014 [place]onal [place] [facility] [place]orta [employer] 04/07/2016 TFFB-24-8 2-ZT / / Graft Iliac Leg Spirlz 10j61fg - [id number] Implanted:Qty: 1 on 06/10/2014 [place] Ronal [place] [facility] [place]: Aorta [employer] 10/09/2015 [id number] / / [id number] Description: Graft Iliac Leg Spirlz 87t66ab - [id number] Implanted:Qty: 1 on 06/10/2014 [place] Ronal [place] [facility] [place]: Femoral Artery [employer] 11/07/2016 [id number] / / [id number] Stent Polmer 29mm P3110 - [id number] Implanted:Qty: 1 on 06/10/2014 by Ronla [place] [facility] [place]A: Aorta JNJ : CORDIS ENDOVASCULAR 07/26/2018 P3110 / / [id number] Codman Orbit Galaxy Coil 2.5mm X 3.5cm Implanted:Qty: 1 on 09/12/2015 by Arik Shin [place] [facility] [place]: Head LENORA [employer] LENORA CODMAN 02/26/2017 [id number] / [id number] / [id number] Description:COMPLEX XTRASOFT detachable coil deployed left internal carotid artery Codman Orbit Galaxy Coil 2.5mm X 2.5cm Implanted:Qty: 1 on 09/12/2015 by Arik Shin [place] [facility] [place]: Head LENORA [employer] LENORA CODMAN 01/27/2016 [id number] / [id number] / [id number] Description:COMPLEX XTRASOFT detachable coil deployed left internal carotid artery aneurysm Codman Power 2 Stent 4mm X 30mm Implanted:Qty: 1 on 09/12/2015 by Arik Shin [place] [facility] [place]: Head LENORA [employer] LENORA DEPUY 03/26/2018 [id number] / [id number] / [id number] Description:Vascular reconst ruction device deployed in left internal carotid artery Codman Orbit Galaxy Coil 6mm X 20cm Implanted:Qty: 1 on 09/12/2015 by Arik Shin [place] [facility] [place]: Head LEN[employer]A [employer] LENORA CODMAN 09/26/2016 [id number] / [id number] / [id number] Description:COMPLEX FILL det achable coil deployed left internal carotid artery aneurysm Codman Orbit Galaxy Coil 4mm X 10cm Implanted:Qty: 1 on 09/12/2015 by Arik Shin [place] [facility] [place]: Head LEN[employer]A [employer] LEN[employer]A CODMAN 10/27/2015 [id number] / [id number] / [id number] Description:COMPLEX XTRASOFT detachable coil deployed left internal carotid artery aneurysm Codman Orbit Galaxy Coil 3.5mm X 9cm Implanted:Qty: 1 on 09/12/2015 by Arik Shin MD [place] [facility] [place]: Head LENORA [employer] LEN[employer]A CODMAN 12/28/2015 [id number] / [id number] / [id number] Description:COMPLEX XTRASOFT detachable coil deployed left internal carotid artery aneurysm Codman Orbit Galaxy Coil 3mm X 6cm Implanted:Qty: 1 on 09/12/2015 by Arik Shin [place] [facility] [place]: Head LENORA [employer] LENORA CODMAN 04/28/2017 [id number] / [id number] / [id number] Description:COMPLEX XTRASOFT detachable coil deployed left internal carotid artery aneurysm Lens Intraoc 21.0 - [id number] - [id number] Implanted:Qty: 1 on 11/08/2020 by Yuri Bradley MD at OR [facility] Left: Eye BAUSCH [employer] LOMB 06/26/2025 [id number] / [id number] / [id number] Lens Intraoc 20.5 - [id number] - [id number] Implanted:Qty: 1 on 11/22/2020 by Yuri Bradley MD at OR [facility] Right: Eye BAUSCH & LOMB 07/27/2025 [id number] / [id number] / [id number] Clip Quick 2.8mm 230cm - [id number] Implanted:Qty: 3 on 03/29/2021 by Luciana Fernandez MD at ENDOSCOPY [facility] [employer] 08/27/2023 HX-202UR. A / / Sureclip 16mm 235cm - [id number] Implanted:Qty: 2 on 05/07/2022 by Luciana Fernandez MD at ENDOSCOPY [facility] Colon MICRO TECH ENDOSCOPY 07/06/2024 [id number] / / Power Port 8fr Sngl Lumen Plas - [id number] Implanted:Qty: 1 on 01/30/2023 by Koko Santiago MD at OR [facility] N/A: Chest CR BARD : PERIPHERAL VASCULAR 07/27/2024 [id number] / / [id number] Power Port 8fr Sngl Lumen Plas - [id number] Implanted:Qty: 1 on 01/30/2023 by Koko Santiago MD at OR [facility] CR BARD : PERIPHERAL VASCULAR [id number] 07/27/2024 [id number] / / [id number] documented as of this encounter Visit Diagnoses [...] were consensually agreed upon. Care Teams Supervisor Ticket Sales Relationship Specialty Start Date End Date Mauro Watson DO [address] [place] [address] PCP - General Family Medicine 04/13/19 documented as of this encounter
--- OUTSIDE RECORDS SUMMARY | 2024-02-19 09:32 | External Medical Summary | Summary of Care ---
Author Name Unknown Organization [facility] Address [address] [place] [address] Phone [phone] Care Team Providers Care Motion Designer Name Role Phone Mauro Watson DO [...] INJECTION [place] FOSAPREPITANT INJECTION Lasha Christine MD [address] [place] [address] Anc Hem/Onc [address] [address] Referral ID Status Reason Start Date Expiration Date V isits Requested Visits Authorized [id number] Authorized 08/22/2023 04/28/2099 999 99 Encounter Details Date Type Department Care Team (Latest Contact Info) Description 2023 8:45 AM EDT Hem/Onc Treatment Hematology/Oncolog y Treatment, [address] [address] Diane, Chair 2 Hem Onc [address] [place] [address] Encounter for antineoplastic chemotherapy*; Metastatic carcinoma involving [...] EGFR 72 Lumbar radiculopathy 05/27/2019 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 Pt ambulated from treatment room in [...] Info) Description 10/30/2023 1:00 PM EDT Telemedicine Neurosurgery[address] [address] Dashawn Haines MD [address] [place] [address] 11/05/2023 3:25 PM EDT Office Visit Interventional Pain Center, [facility] [address] [place] [address] Wiliam Tam DO [address] [place] [address] 11/11/2023 10:00 AM EDT Imaging Radiology [facility] 1st [facility] [address] [facility] [address] 11/14/2023 7:30 AM EDT Laboratory Laboratory [facility] [place] [address] [place] [phone] [address] [place] [address] 11/14/2023 7:45 AM EDT Office Visit Hematology/Oncology [facility] [place] [address] [place] [address] Lasha Christine MD [address] [place] [address] 11/14/2023 8:15 AM EDT Hem/Onc Treatment Hematology/Oncology Treatment, [place] [address] [place], [place] [address] Diane, Chair 7 Hem Onc [address] [place], [place] [address] 12/17/2023 10:00 AM EDT Appointment Vascular Lab [facility] [place] [address] [place] [address] 12/17/2023 10:30 AM EDT Office Visit Vascular Surg [facility], [place] [address] [place] [address] Margarito Cabrera MD [address] [place] [address] Scheduled Procedures Name Priority Associated Diagnoses Date/Ti [...] this encounter Medical Devices Implanted Type Area It Security Architect Device Identifier Shelf Expiration Date Model / Serial / Lot Stent Main Body Rvmi-93-06-Zt - [id number] Implanted:Qty: 1 on 06/10/2014 by Ronal [place] [facility] [place] [employer]orta [employer] 04/07/2016 TFFB-24-8 2-ZT / / Graft Iliac Leg Spirlz 40z36xn - [id number] Implanted:Qty: 1 on 06/10/2014 by Ronal [place] [facility] [place]: Aorta [employer] 10/09/2015 [id number] / / [id number] Description: Graft Iliac Leg Spirlz 58e83td - [id number] Implanted:Qty: 1 on 06/10/2014 by Ronal [place] [facility] [place]: Femoral Artery [employer] 11/07/2016 [id number] / / [id number] Stent Polmer 29mm P3110 - [id number] Implanted:Qty: 1 on 06/10/2014 by Ronal Gal[place] [facility] [place]A: Aorta JNJ : CORDIS ENDOVASCULAR 07/26/2018 P3110 / / [id number] Codman Orbit Galaxy Coil 2.5mm X 3.5cm Implanted:Qty: 1 on 09/12/2015 by Arik Shin MD [place] [facility] [place]: Head LENORA [employer] LENORA CODMAN 02/26/2017 [id number] / [id number] / [id number] Description:COMPLEX XTRASOFT detachable coil deployed left internal carotid artery Codman Orbit Galaxy Coil 2.5mm X 2.5cm Implanted:Qty: 1 on 09/12/2015 by Arik Shin MD [place] [facility] [place]: Head LEN[employer]A [employer]EN[employer]A COD[employer] 01/27/2016 [id number] / [id number] / [id number] Description:COMPLEX XTRASOFT detachable coil deployed left internal carotid artery aneurysm Codman [place] 2 Stent 4mm X 30mm Implanted:Qty: 1 on 09/12/2015 by Arik Shin MD [place] [facility] [place]: Head LENORA [employer] LENORA DEPUY 03/26/2018 [id number] / [id number] / [id number] Description:Vascular reconst ruction device deployed in left internal carotid artery Codman Orbit Galaxy Coil 6mm X 20cm Implanted:Qty: 1 on 09/12/2015 by Arik Shin MD [place] [facility] [place]: Head L[employer]A [employer] CODMAN 09/26/2016 [id number] / [id number] / [id number] Description:COMPLEX FILL det achable coil deployed left internal carotid artery aneurysm Codman Orbit Galaxy Coil 4mm X 10cm Implanted:Qty: 1 on 09/12/2015 by Arik Shin MD [place] [facility] [place]: Head L[employer]A [employer] CODMAN 10/27/2015 [id number] 0 / [id number] / [id number] Description:COMPLEX XTRASOFT detachable coil deployed left internal carotid artery aneurysm Codman Orbit Galaxy Coil 3.5mm X 9cm Implanted:Qty: 1 on 09/12/2015 by Arik Shin MD [place] [facility] [place]: Head LEN[employer]A [employer]EN[employer]A CODMAN 12/28/2015 [id number] / [id number] / [id number] Description:COMPLEX XTRASOFT detachable coil deployed left internal carotid artery aneurysm Codman Orbit Galaxy Coil 3mm X 6cm Implanted:Qty: 1 on 09/12/2015 by Arik Shin MD [place] [facility] [place]: Head LENORA [employer] LEN[employer]A CODMAN 04/28/2017 [id number] / [id number] / [id number] Description:COMPLEX XTRASOFT detachable coil deployed left internal carotid artery aneurysm Lens Intraoc 21.0 - [id number] - [id number] Implanted:Qty: 1 on 11/08/2020 by Yuri Bradley MD at OR [facility] Left: Eye BAUSCH & LOMB 06/26/2025 [id number] / [id number] / [id number] Lens Intraoc 20.5 - [id number] - [id number] Implanted:Qty: 1 on 11/22/2020 by Yuri Bradley MD at OR [facility] Right: Eye BAUSCH & LOMB 07/27/2025 [id number] / [id number] / [id number] Clip Quick 2.8mm 230cm - [id number] Implanted:Qty: 3 on 03/29/2021 by Luciana Fernandez MD at ENDOSCOPY [facility] [employer] 08/27/2023 HX-202UR. A / / Sureclip 16mm 235cm - [id number] Implanted:Qty: 2 on 05/07/2022 by Luciana Fernandez MD at ENDOSCOPY [facility] Colon MICRO TECH ENDOSCOPY 07/06/2024 [id number] / / Power Port 8fr Sngl Lumen Plas - [id number] Implanted:Qty: 1 on 01/30/2023 by Koko Santiago MD at OR [facility] N/A: Chest CR BARD : PERIPHERAL VASCULAR 07/27/2024 [id number] / / [id number] Power Port 8fr Sngl Lumen Plas - [id number] Implanted:Qty: 1 on 01/30/2023 by Koko Santiago MD at OR [facility] CR BARD : PERIPHERAL VASCULAR [id number] 07/27/2024 [id number] / / [id number] documented as of this encounter Visit Diagnoses [...] and were consensually agreed upon. Care Teams Motion Designer Relationship Specialty Start Date End Date Mauro Watson DO [address] [place] [address] PCP - General Family Medicine 04/13/19 documented as of this encounter
--- OUTSIDE RECORDS SUMMARY | 2024-02-19 09:32 | External Medical Summary ---
Author Name Unknown Address Unknown Organization K09:[facility] [address] [place] [address] Laboratory Report Ordering Provider Test Date Status ANN KLEIN 2023 07:42:54 Final Observation Date Value Abnormality Reference (Units ) Status BUN 2023 07:42:54 17 6-20 (mg/dL) Final Creatinine 2023 07:42:54 1.1 0.6-1.2 (mg/dL) Final Glomerular filtration rate/1.73 sq M.predicted [Volume Rate/Area] in Serum, Plasma or Blood by Creatinine-based formula (CKD-EPI) 2023 07:42:54 75 >=60 (mL/min) Final eGFR is calculated based on the CKD-EPI 2020 equation Sodium 2023 07:42:54 138 135-146 (m mol/L) Final Potassium 2023 07:42:54 4.7 3.5-5.1 (m mol/L) Final Cl 2023 07:42:54 104 98-107 (mm ol/L) Final CO2 2023 07:42:54 17 Below low normal 22- 32 (mmol/L) Final Anion gap 2023 07:42:54 17 Above high normal 7- 15 (mmol/L) Final Glucose 2023 07:42:54 180 Above high normal 70 -120 (mg/dL) Final Albumin 2023 07:42:54 3.8 3.8-5.0 (g /dL) Final AST (Aspartate aminotransferase) 2023 07:42:54 56 Above high normal 10-50 (U/L) Final Alk Phos 2023 07:42:54 179 Above high normal 35 -130 (U/L) Final Bilirubin, Total 2023 07:42:54 0.4 <=1 .2 (mg/dL) Final Calcium 2023 07:42:54 9.6 8.4-10.2 ( mg/dL) Final Protein 2023 07:42:54 7.7 6.0-8.3 (g /dL) Final ALT (Alanine aminotransferase) 2023 07:42:54 23 10-50 (U/L) Efrain mathur Performing Location [facility] [address] [place] [address]
--- OUTSIDE RECORDS SUMMARY | 2024-02-19 09:32 | External Medical Summary ---
Author Name Unknown Address Unknown Organization : Laboratory Report Ordering Provider Test Date Status ANN KLEIN 2023 07:42:54 Final Observation Date Value Abnormality Reference (Units ) Status Transferrin receptor.soluble [Mass/volume] in Serum or Plasma 2023 07:42:54 1.01 0.76-1.76 (mg/L) Final Test performed by [facility]
[address],
[place] [address]

Hide Dropper: Renae Mendoza MD,PHD,THERON
Test Reported by Chata Morin,
[facility],
[address] [place], [place]
Rodriguez Murray M.D., Ph.D., Director of Laboratories
, [facility] [id number] Performing Location
--- OUTSIDE RECORDS SUMMARY | 2024-02-19 09:33 | External Medical Summary | Summary of Care ---
Author Name Unknown Organization [facility] Address [address] [place] [address] Phone [phone] Care Team Providers Care Pest Technician Name Role Phone Mauro Watson DO Primary Care Provider Reason for Visit * Reason Comments Chemotherapy C7D8 Gemzar/Cisplati n * Episode Based Medications (Routine) - Closed Specialty Diagnoses / Procedures Referred By Edmund nelson Referred To Contact Diagnoses Cholangiocarcinoma (HCC) Encounter for antineoplastic chemotherapy Procedures ME CISPLATIN 10 MG INJECTION ME FOSAPREPITANT INJECTION ME IN GEMCITABINE HCL NOS 200MG ME INJ., DURVALUMAB, 10 MG Roberta La MD [address] [place] [address] Anc Hem/Onc Nandini Contreras DEPT CLOSED - 03/12/23 [address] [place] [address] Referral ID Status Reason Start Date Expiration Date Visits Re quested Visits Authorized [id number] Closed 02/25/2023 04/28/[phone] Encounter Details Date Type Department Care Team (Latest Contact Info) Description 07/29/2023 9:15 AM EDT Hem/Onc Treatment Hematology/Oncolo gy Treatment, [place] [address] [place] [address] Diane Chair 8 Hem Onc Scen[address] [place] [id number] Cholangiocarcinoma (HCC)*; Encounter for antineoplastic chemotherapy Allergies Active Allergy Reactions Criticality Noted Date Comments Aspirin Bleeding High 11/26/2011 Significant hemorroidal bleed on aspirin,high doses Duloxetine Hcl Hypertension 01/26/2020 documented as of this encounter (statuses as of 09/16/2023) Medications Medication Sig Dispensed Refills Start Date [...] for Nausea. 60 Tablet 2 07/05/2023 Active Hospital, Clinic, or Other Facility Administered Medication Ordered Dose Route Frequency Start Date End Date Status Fluorouracil (5-Fu) 4,600 mg in NSS 138 mL infusion 4600 mg IV CONTINUOUS 02/04/2023 07/29/2023 Discontinued documented as of this encounter (statuses as of 09/16/2023) Active Problems Problem Noted Date Diagnosed Date 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 01/21/2023 Encounter for antineoplastic chemotherapy 2022 Medical marijuana use 08/26/2021 CKD (chronic kidney disease), stage II 2 Overview: EGFR 72 Lumbar radiculopathy 05/27/2019 Atherosclerosis of [place] co ronary artery of [place] heart with angina pectoris 05/05/2019 History of colon polyps 08/12/2018 ACEI/ARB contraindicated 09/21/2016 Carotid aneurysm, left 09/13/2015 Overview: S/p coil embolization Cerebral aneurysm, nonruptured 09/05/2015 AAA (abdominal aortic aneurysm) 06/20/2015 Overview: S/p repair Bilateral carotid artery disease 06/20/2015 Medical home patient encounter 05/19/2014 Hypertriglyceridemia 05/16/2012 CORON ATHEROSCL [place] CORON VESSEL 07/11/2010 Dyslipidemia, goal LDL below [...] as of this encounter (statuses as of 09/16/2023) Resolved Problems Problem Noted Date Diagnosed Date [...] as of this encounter (statuses as of 09/16/2023) Immunizations Name Administration Dates Next Due COVID-19 [...] Influenza, Trivalen t, Adjuvanted, 65+ yrs 02/17/2019 TDAP (age 11 and older)(Adacel) 01/13/2020,06/08,09/30/2008 Zoster Vaccine Recombinant (Shingrix) 02/17/2019 ,08/29/2017 documented [...] Sign Reading Time Taken Comments Blood Pressure 143/78 07/29/2023 9:15 AM EDT Pulse 80 07/29/2023 9:15 AM EDT Temperature 36.7 C (98 F) 07/29/2023 9:15 AM EDT Respiratory Rate 18 07/29/2023 9:15 AM EDT Oxygen Saturation 96% 07/29/2023 9:15 AM EDT Inhaled Oxygen Concentration - - Weight 79.2 kg (174 lb 9.6 oz) 07/29/2023 9:15 A M EDT Height - - Body Mass Index 26.56 06/06/2023 12:13 PM EST documented in this [...] as of this encounter Nursing Notes * Susanne Rao RN - 07/29/2023 3:09 PM EDT Goals: Patient will remain free from injury. Possible barriers to meeting goals: ambulation with IV pole Stability of the patient: Moderately stable - low risk of patient condition declining or worsening Summary regarding today's goals: Met: Pt remained free of injury during treatment Patient tolerated treatment well and was discharged in stable condition. Coverage by Gabriela Li RN. * Susanne Rao RN - 07/29/2023 9:44 AM EDT Chair 12 Chemotherapy/Immunotherapy agents: IMFINZI, CISPLATIN, and GEMZAR Consent for chemotherapy drug treatment complete, dated, and signed? yes, date - 03/04/23 Treatment lab parameters met? Yes, reviewed with Enriqueta RECIO Has treatment weight changed > than 10%? No Treatment preauthorized? Yes VITALS Filed Vitals: 07/29/23 0915 BP: 143/78 Pulse: 80 Resp: 18 Temp: 36.7 C (98 F) TempSrc: Tympanic SpO2: 96% Weight: 79.2 kg (174 lb 9.6 oz) Urine protein: N/A Patient education completed [...] symptoms or adverse side effects during treatment. PRE-TREATMENT ASSESSMENT: NEURO: fatigue:rests as needed CV/RESP: denies symptoms GI/: denies symptoms OTHER: denies any additional symptoms PAIN: 3-4 pain location : back pain for years, due for steroid injection later this month VAD accessed without difficulty, good blood return noted, flushed with NSS and fluids infusing Safety and Risk for Injury Patient will remain free from injury. Ensure appropriate safety devices are available. Provide and maintain safe environment. documented in this encounter Plan of Treatment Upcoming Encounters Date Type Department Care Team (Late st Contact Info) Description 10/04/2023 8:00 AM EDT Laboratory Laboratory [facility] Radha Contreras [address] [place] [phone] [place] [facility] [address] [place] [address] 10/04/2023 9:15 AM EDT Office Visit Hematology/Oncology [facility] Diane [place] [address] [place] [phone] Lasha Christine MD [address] [place] [address] 10/04/2023 9:45 AM EDT Hem/Onc Treatment Hematology/Oncology Treatment, [place] [address] [place], [place] [phone] Diane, Chair 11 Hem Onc Scene [address] [place] [address] 10/30/2023 1:00 PM EDT Telemedicine Neurosurgery, [place] [address] [place] [address] Dashawn Haines MD [facility] [place] [address] 11/05/2023 3:25 PM EDT Office Visit Interventional Pain Center, [facility] [address] [place] [address] Wiliam Tam DO [address] [facility] [phone] 12/17/2023 10:00 AM EDT Appointment Vascular Lab [facility] [address] [place] [address] 12/17/2023 10:30 AM EDT Office Visit Vascular Surg [place] [address] [place] [address] Margarito Cabrera MD [address] [place] [address] Scheduled Procedures Name Priority Associated Diagnoses Date/Ti me COLONOSCOPY FLEXIBLE PROXIMAL DIAGNOSTIC Recall History of colon polyps Health Maintenance Due Date Last Done Comments Cologuard 1994 Sigmoidoscopy 1994 Fecal Occult Blood Test 02/03/2001 02/04/2000, 02/02 COVID-19 Vaccine ( season) 2022 02/06/2022, 05/11/2021, 12/13/2020, Additional history exists Depression Screening 05/17/2023 05/17/2022 Colonoscopy 11/03/2023 11/02/2022, 10/2022, 05/07/2022, Additional history exists Colorectal Cancer Screening 11/03/2023 GFR 09/11/2024 09/12/2023, 2 08/2023, 08/13/2023, Additional history exists Albumin/Creatinine Ratio 05/17/2025 05/17/2022, [...] encounter Medical Devices Implanted Type Area Chief Accountant Device Identifier Shelf Expiration Date Model / Serial / Lot Stent Main Body Qszc-96-38-Zt - [id number] Implanted:Qty: 1 on 06/10/2014 by Ronal Gallegos MD at OR [facility] [place] [place] Aorta [employer] 04/07/2016 TFFB-24-8 2-ZT / / Graft Iliac Leg Spirlz 84m86cc - [id number] Implanted:Qty: 1 on 06/10/2014 by Ronal Gallegos MD at OR [facility] [place] [place] Right: Aorta [employer] 10/09/2015 [id number] / / [id number] Description: Graft Iliac Leg Spirlz 37p58mm - [id number] Implanted:Qty: 1 on 06/10/2014 by Ronal Gallegos MD at OR [facility] [place] [place] Right: Femoral Artery [employer] 11/07/2016 [id number] / / [id number] Stent Polmer 29mm P3110 - [id number] Implanted:Qty: 1 on 06/10/2014 by Ronal Gallegos MD at OR [facility] [place] [place] N/A: Aorta JNJ : CORDIS ENDOVASCULAR 07/26/2018 [id number] / / [id number] Codman Orbit Galaxy Coil 2.5mm X 3.5cm Implanted:Qty: 1 on 09/12/2015 by Arik Shin MD at OR [facility] [place] [place] Left: Head LENORA & LENORA CODMAN 02/26/2017 [id number] / [id number] / [id number] Description:COMPLEX XTRASOFT detachable coil deployed left internal carotid artery Codman Orbit Galaxy Coil 2.5mm X 2.5cm Implanted:Qty: 1 on 09/12/2015 by Arik Shin MD at OR [facility] [place] [place] Left: Head LENORA [employer] LENORA CODMAN 01/27/2016 [id number] / [id number] / [id number] Description:COMPLEX XTRASOFT detachable coil deployed left internal carotid artery aneurysm Codman [place] 2 Stent 4mm X 30mm Implanted:Qty: 1 on 09/12/2015 by Arik Shin MD at OR [facility] [place] [place] Left: Head LENORA & LENORA DEPUY 03/26/2018 [id number] / [id number] / [id number] Description:Vascular reconst ruction device deployed in left internal carotid artery Codman Orbit Galaxy Coil 6mm X 20cm Implanted:Qty: 1 on 09/12/2015 by Arik Shin MD at OR [facility] [place] [place] Left: Head LENORA [employer] LENORA CODMAN 09/26/2016 [id number] / [id number] / [id number] Description:COMPLEX FILL det achable coil deployed left internal carotid artery aneurysm Codman Orbit Galaxy Coil 4mm X 10cm Implanted:Qty: 1 on 09/12/2015 by Arik Shin MD at OR [facility] [place] [place] Left: Head LENORA [employer] LENORA CODMAN 10/27/2015 [id number] / [id number] / [id number] Description:COMPLEX XTRASOFT detachable coil deployed left internal carotid artery aneurysm Codman Orbit Galaxy Coil 3.5mm X 9cm Implanted:Qty: 1 on 09/12/2015 by Arik Shin MD at OR [facility] [place] [place] Left: Head LENORA & LENORA CODMAN 12/28/2015 [id number] / [id number] / [id number] Description:COMPLEX XTRASOFT detachable coil deployed left internal carotid artery aneurysm Codman Orbit Galaxy Coil 3mm X 6cm Implanted:Qty: 1 on 09/12/2015 by Arik Shin MD at OR [facility] [place] [place] Left: Head LENORA & LENORA CODMAN 04/28/2017 [id number] / [id number] / [id number] Description:COMPLEX XTRASOFT detachable coil deployed left internal carotid artery aneurysm Lens Intraoc 21.0 - [id number] - [id number] Implanted:Qty: 1 on 11/08/2020 by Yuri [place] MD at OR [facility] Left: Eye BAUSCH & LOMB 06/26/2025 [id number] / [id number] / [id number] Lens Intraoc 20.5 - [id number] - [id number] Implanted:Qty: 1 on 11/22/2020 by Yuri Bradley MD at OR [facility] Right: Eye BAUSCH & LOMB 07/27/2025 [id number] / [id number] / [id number] Clip Quick 2.8mm 230cm - [id number] Implanted:Qty: 3 on 03/29/2021 by Luciana Fernandez MD at ENDOSCOPY [facility] SynapCell [employer] 08/27/2023 HX-202UR. A / / Sureclip 16mm 235cm - [id number] Implanted:Qty: 2 on 05/07/2022 by Luciana Fernandez MD at ENDOSCOPY [facility] Colon MICRO TECH ENDOSCOPY 07/06/2024 [id number] / / Power Port 8fr Sngl Lumen Plas - [id number] Implanted:Qty: 1 on 01/30/2023 by Koko Santiago MD at OR [facility] N/A: Chest CR BARD : PERIPHERAL VASCULAR 07/27/2024 [id number] / / [id number] Power Port 8fr Sngl Lumen Plas - [id number] Implanted:Qty: 1 on 01/30/2023 by Koko Santiago MD at OR [facility] CR BARD : PERIPHERAL VASCULAR [id number] 07/27/2024 [id number] / / [id number] documented as of this encounter Visit Diagnoses Diagnosis Cholangiocarcinoma (HCC)- Primary Malignant neoplasm of intrahepatic bile ducts Encounter for antineoplastic chemotherapy documented in this encounter Administered Medications Inactive Administered Medications - up to 3 most recent administrations Medication Order MAR Action Action Date Dose Rate Site CISplatin (Platinol) 48 mg in NSS 250 mL infusion 48 mg (25 mg/m2 1.92 m2 Treatment Plan BSA from Recorded weight), IV Piggyback, at 250 mL/hr Administer over 60 Minutes, PROTECT FROM LIGHT, ONCE, 1 dose, On Sat07/29/23 at 1100 Start Infusion 07/29/2023 11:33 AM EDT 48 mg 250 mL/hr Fosaprepitant Dimeglumine (Emend) 150 mg, ondansetron (Zofran) 16 mg, dexamethasone sodium phosphate 12 mg in NSS 250 mL Infusion 150 mg, IV Piggyback, ONCE, 1 dose, On Sat07/29/23 at 1045, Administer over 30 Minutes, Give 30 minutes prior to chemotherapy. Infuse over 30 minutes. Start Infusion 07/29/2023 9:59 AM EDT 150 mg 500 mL/hr gemcitabine (Gemzar) 2,000 mg in NSS 250 mL infusion 2,000 mg (rounded from 1,920 mg = 1,000 mg/m2 1.92 m2 Treatment Plan BSA from Recorded weight), IV Piggyback, ONCE, 1 dose, On Sat07/29/23 at 1030, Administer over 30 Minutes Start Infusion 07/29/2023 10:48 AM EDT 2,000 mg 500 mL/hr hEParin 100 UNIT/ML Lock Flush inj 500 Units 500 Units (5 mL), IV Lock, PRN Other, IV Flush, Starting on Sat07/29/23 at 0940, Until Sat07/29/23 at 1913, For 24 hours, Do not flush if lock, PICC, or central line not in place; IV infusing or unable to flush. Given 07/29/2023 2:37 PM EDT 500 Units NSS 1,000 mL with magnesium sulfate 1 g infusion Intravenous, at 500 mL/hr Administer over 2 Hours, Post-cisplatin hydration, CONTINUOUS, Starting on Sat07/29/23 at 1200, Until Sat07/29/23 at 1913 Start Infusion 07/29/2023 12:33 PM EDT 500 mL/hr NSS infusion 1,000 mL, Intravenous, at 500 mL/hr, CONTINUOUS, Starting on Sat07/29/23 at 1045, Until Sat07/29/23 at 1244 Start Infusion 07/29/2023 9:35 AM EDT 1,000 mL 500 mL/hr NSS infusion Intravenous, at 50 mL/hr, PRN, Starting on Sat07/29/23 at 1045, Until Sat07/29/23 at 1913, KVO Start Infusion 07/29/2023 9:35 AM EDT 50 mL/hr potassium chloride ER tab 20 mEq 20 mEq, Oral, ONCE, On Sat07/29/23 at 1100, For 1 dose, This med should NOT be Crushed or Chewed Give with post-hydration. Hold if serum potassium is greater than or equal to 5 mmol/L. Given 07/29/2023 12:33 PM EDT 20 mEq sodium chloride 0.9 % flush central line 10 mL 10 mL, IV Push, PRN Other, IV Flush, Starting on Sat07/29/23 at 0940, Until Sat07/29/23 at 1913, For 24 hours, Do not flush if lock, PICC, or central line not in place; IV infusing or unable to flush. Given 07/29/2023 2:37 PM EDT 10 mL documented in this [...] and were consensually agreed upon. Care Teams Pest Technician Relationship Specialty Start Date End Date Mauro Watson DO [address] [place] [address] PCP - General Family Medicine 04/13/19 documented as of this encounter
--- OUTSIDE RECORDS SUMMARY | 2024-02-19 09:33 | External Medical Summary | Summary of Care ---
Author Name Unknown Organization [facility] Address [address] [place] [address] Phone [phone] Care Team Providers Care Sheeter Machine Operator Name Role Phone Mauro Watson DO Primary Care Provider Reason for Visit * Reason Comments Chemotherapy C7D8 Gemzar/Cisplati n * Episode Based Medications (Routine) - Closed Specialty Diagnoses / Procedures Referred By Edmund nelson Referred To Contact Diagnoses Cholangiocarcinoma (HCC) Encounter for antineoplastic chemotherapy Procedures ID CISPLATIN 10 MG INJECTION ID FOSAPREPITANT INJECTION ID IN GEMCITABINE HCL NOS 200MG ID INJ., DURVALUMAB, 10 MG Roberta La MD [address] [place] [address] Anc Hem/Onc Nandini Contreras DEPT CLOSED - 03/12/23 [address] [place] [phone] Referral ID Status Reason Start Date Expiration Date Visits Re quested Visits Authorized [id number] Closed 02/25/2023 04/28/[phone] Encounter Details Date Type Department Care Team (Latest Contact Info) Description 07/29/2023 9:15 AM EDT Hem/Onc Treatment Hematology/Oncolo gy Treatment, [place] [address] [place] [phone] Diane Chair 8 Hem Onc Sc[address] [place] [id number] Cholangiocarcinoma (HCC)*; Encounter for antineoplastic chemotherapy Allergies [...] EGFR 72 Lumbar radiculopathy 05/27/2019 Atherosclerosis of [place] co ronary artery of [place] heart with angina pectoris 05/05/2019 History of colon polyps 08/12/2018 ACEI/ARB contraindicated 09/21/2016 Carotid aneurysm, left 09/13/2015 Overview: S/p coil embolization Cerebral aneurysm, nonruptured 09/05/2015 AAA (abdominal aortic aneurysm) 06/20/2015 Overview: S/p repair Bilateral carotid artery disease 06/20/2015 Medical home patient encounter 05/19/2014 Hypertriglyceridemia 05/16/2012 CORON ATHEROSCL [place] CORON VESSEL 07/11/2010 Dyslipidemia, goal LDL below [...] Description 10/04/2023 8:00 AM EDT Laboratory Laboratory [facility] Radha Contreras [address] [place] [phone] [place] [facility] Scene [address] [place] [address] 10/04/2023 9:15 AM EDT Office Visit Hematology/Oncology [facility] Diane [place] [address] [place] [phone] Lasha Christine MD [address] [place] [address] 10/04/2023 9:45 AM EDT Hem/Onc Treatment Hematology/Oncology Treatment, [place] [address] [place], [place] [phone] Diane, Chair 11 Hem Onc Scene [address] [place] [address] 10/30/2023 1:00 PM EDT Telemedicine Neurosurgery, [place] [address] [place] [address] Dashawn Haines MD [facility] [place] [address] 11/05/2023 3:25 PM EDT Office Visit Interventional Pain Center, [facility] [address] [place] [address] Wiliam Tam DO [address] [facility] [phone] 12/17/2023 10:00 AM EDT Appointment Vascular Lab [facility] [address] [place] [address] 12/17/2023 10:30 AM EDT Office Visit Vascular Surg [place] [address] [place] [address] Margarito Cabrera MD [address] [place] [address] Scheduled Procedures Name Priority Associated Diagnoses Date/Ti [...] this encounter Medical Devices Implanted Type Area After School Program Assistant Device Identifier Shelf Expiration Date Model / Serial / Lot Stent Main Body Amsw-42-72-Zt - [id number] Implanted:Qty: 1 on 06/10/2014 by Ronal Gallegos MD at [place] [facility] [place] Aorta [employer] 04/07/2016 TFFB-24-8 2-ZT / / Graft Iliac Leg Spirlz 62w33pf - [id number] Implanted:Qty: 1 on 06/10/2014 by Ronal Gallegos MD at [place] [facility] [place] Right: Aorta [employer] 10/09/2015 [id number] / / [id number] Description: Graft Iliac Leg Spirlz 59y19dz - [id number] Implanted:Qty: 1 on 06/10/2014 by Ronal Gallegos MD at [place] [facility] [place] Right: Femoral Artery [employer] 11/07/2016 [id number] / / [id number] Stent Polmer 29mm P3110 - [id number] Implanted:Qty: 1 on 06/10/2014 by Ronal Gallegos MD at [place] [facility] [place] N/A: Aorta JNJ : CORDIS ENDOVASCULAR 07/26/2018 P3110 / / [id number] Codman Orbit Galaxy Coil 2.5mm X 3.5cm Implanted:Qty: 1 on 09/12/2015 by Arik Shin MD at OR [facility] [place] Left: Head LENORA [employer] LENORA CODMAN 02/26/2017 [id number] / [id number] / [id number] Description:COMPLEX XTRASOFT detachable coil deployed left internal carotid artery Codman Orbit Galaxy Coil 2.5mm X 2.5cm Implanted:Qty: 1 on 09/12/2015 by Arik Shin MD at [place] [facility] [place] Left: Head LENORA [employer] LENORA CODMAN 01/27/2016 [id number] / [id number] / [id number] Description:COMPLEX XTRASOFT detachable coil deployed left internal carotid artery aneurysm Codman [place] 2 Stent 4mm X 30mm Implanted:Qty: 1 on 09/12/2015 by Arik Shin MD at OR [facility] [place] Left: Head LENORA & LENORA DEPUY 03/26/2018 [id number] / [id number] / [id number] Description:Vascular reconst ruction device deployed in left internal carotid artery Codman Orbit Galaxy Coil 6mm X 20cm Implanted:Qty: 1 on 09/12/2015 by Arik Shin MD at OR [facility] [place] Left: Head LENORA [employer] LENORA CODMAN 09/26/2016 [id number] / [id number] / [id number] Description:COMPLEX FILL det achable coil deployed left internal carotid artery aneurysm Codman Orbit Galaxy Coil 4mm X 10cm Implanted:Qty: 1 on 09/12/2015 by Arik Shin MD at [place] [facility] [place] Left: Head LENORA [employer] LENORA CODMAN 10/27/2015 [id number] / [id number] / [id number] Description:COMPLEX XTRASOFT detachable coil deployed left internal carotid artery aneurysm Codman Orbit Galaxy Coil 3.5mm X 9cm Implanted:Qty: 1 on 09/12/2015 by Arik Shin MD at [place] [facility] [place] Left: Head LENORA [employer] LENORA CODMAN 12/28/2015 [id number] / [id number] / [id number] Description:COMPLEX XTRASOFT detachable coil deployed left internal carotid artery aneurysm Codman Orbit Galaxy Coil 3mm X 6cm Implanted:Qty: 1 on 09/12/2015 by Arik Shin MD at [place] [facility] [place] Left: Head LENORA & LENORA CODMAN 04/28/2017 [id number] / [id number] / [id number] Description:COMPLEX XTRASOFT detachable coil deployed left internal carotid artery aneurysm Lens Intraoc 21.0 - [id number] - [id number] Implanted:Qty: 1 on 11/08/2020 by Yuri Bradley MD at OR [facility] Left: Eye BAUSCH & LOMB 06/26/2025 [id number] / [id number] / [id number] Lens Intraoc 20.5 - [id number] - [id number] Implanted:Qty: 1 on 11/22/2020 by Yuri Bradley MD at OR [facility] Right: Eye BAUSCH & LOMB 07/27/2025 [id number] / [id number] / [id number] Clip Quick 2.8mm 230cm - [id number] Implanted:Qty: 3 on 03/29/2021 by Luciana Fernandez MD at ENDOSCOPY [facility] [employer] 08/27/2023 HX-202UR. A / / Sureclip 16mm 235cm - [id number] Implanted:Qty: 2 on 05/07/2022 by Luciana Fernandez MD at ENDOSCOPY [facility] Colon MICRO TECH ENDOSCOPY 07/06/2024 [id number] / / Power Port 8fr Sngl Lumen Plas - [id number] Implanted:Qty: 1 on 01/30/2023 by Koko Santiago MD at OR [facility] N/A: Chest CR BARD : PERIPHERAL VASCULAR 07/27/2024 [id number] / / [id number] Power Port 8fr Sngl Lumen Plas - [id number] Implanted:Qty: 1 on 01/30/2023 by Koko Santiago MD at OR [facility] CR BARD : PERIPHERAL VASCULAR [id number] 07/27/2024 [id number] / / [id number] documented as of this encounter Visit Diagnoses [...] and were consensually agreed upon. Care Teams Sheeter Machine Operator Relationship Specialty Start Date End Date Mauro Watson DO [address] [address] PCP - General Family Medicine 04/13/19 documented as of this encounter
--- OUTSIDE RECORDS SUMMARY | 2024-02-19 09:33 | External Medical Summary ---
Author Name Unknown Address Unknown Organization [facility] [place] [address] Laboratory Report Ordering Provider Test Date Status ANN KLEIN 10/03/2023 11:53:00 Final Observation Date Value Abnormality Reference (Units ) Status SYNC LEUKOCYTES IN BLOOD BY AUTOMATED COUNT 10/03/2023 11:53:00 4.30 4.00-10.80 (K/uL) Final Neutrophils/100 leukocytes in Blood by Manual count 10/03/2023 11:53:00 76.0 Above high normal 40.0-75.0 (%) Final Lymphocytes/100 leukocytes in Blood by Manual count 10/03/2023 11:53:00 17.0 Below low normal 18.0-42.0 (%) Final Monocytes/100 leukocytes in Blood by Manual count 10/03/2023 11:53:00 4.0 1.0-11.0 (%) Final Metamyelocytes/100 leukocytes in Blood by Manual count 10/03/2023 11:53:00 3.0 Above high normal <=0.0 (%) Final Neutrophils [#/volume] in Blood by Manual count 10/03/2023 11:53:00 3.27 1.80-7.70 (K/uL) Final Lymphocytes [#/volume] in Blood by Manual count 10/03/2023 11:53:00 0.73 Below low normal 1.00-4.80 (K/uL) Final Monocytes [#/volume] in Blood by Manual count 10/03/2023 11:53:00 0.17 0.00-1.10 (K/uL) Final Metamyelocytes [#/volume] in Blood by Manual count 10/03/2023 11:53:00 0.13 Above high normal <=0.00 (K/uL) Final Nucleated erythrocytes/100 leukocytes [Ratio] in Blood by Automated count 10/03/2023 11:53:00 Final Neutrophils.hypersegmen rosamaria [Presence] in Blood by Light microscopy 10/03/2023 11:53:00 Present Abnormal None Seen Final Performing Location [facility] [address] [place] [address]
--- OUTSIDE RECORDS SUMMARY | 2024-02-19 09:33 | External Medical Summary ---
Author Name Unknown Address Unknown Organization K09[facility] [address] Laboratory Report Ordering Provider Test Date Status ANN KLEIN 10/03/2023 11:53:00 Final Observation Date Value Abnormality Reference (Units ) Status Magnesium 10/03/2023 11:53:00 2.2 1.5-2.6 (m g/dL) Final Performing Location [facility] [place] [address]
--- OUTSIDE RECORDS SUMMARY | 2024-02-19 09:33 | External Medical Summary | Summary of Care ---
Author Name Unknown Organization [facility] Address [address] [place] [address] Phone [phone] Care Team Providers Care Supervising Bailiff Name Role Phone Mauro Watson DO Primary [...] [place] FOSAPREPITANT INJECTION Lasha Christine MD 200 [facility] [place] [address] Anc Hem/Onc [address] [address] Referral ID Status Reason Start Date Expiration Date V isits Requested Visits Authorized [id number] Authorized 08/22/2023 04/28/[phone] Encounter Details Date Type Department Care Team (Latest Contact Info) Description 10/04/2023 9:45 AM EDT Hem/Onc Treatment Hematology/Oncolog y Treatment, [address] [address] i[place]ane, Chair [address] Hem On[address] [place] [address] Encounter for antineoplastic chemotherapy*; 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); Malignant neoplasm of left lung, unspecified part of lung (HCC) Allergies Active Allergy Reactions Criticality Noted Date Comments Aspirin Bleeding High 11/26/2011 Significant hemorroidal bleed on aspirin,high doses Duloxetine Hcl Hypertension 01/26/2020 documented as of this encounter (statuses as of 10/04/2023) Medications Medication Sig Dispensed Refills Start Date [...] as of this encounter (statuses as of 10/04/2023) Active Problems Problem Noted Date Diagnosed Date Malignant neoplasm of left lung 08/23/2023 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 01/21/2023 Encounter for antineoplastic chemotherapy 2022 Medical marijuana use 08/26/2021 CKD (chronic kidney disease), stage II 2 Overview: EGFR 72 Lumbar radiculopathy 05/27/2019 Atherosclerosis of [place] co ronary artery of [place] heart with angina pectoris 05/05/2019 History of colon polyps 08/12/2018 ACEI/ARB contraindicated 09/21/2016 Carotid aneurysm, left 09/13/2015 Overview: S/p coil embolization Cerebral aneurysm, nonruptured 09/05/2015 AAA (abdominal aortic aneurysm) 06/20/2015 Overview: S/p repair Bilateral carotid artery disease 06/20/2015 Medical home patient encounter 05/19/2014 Hypertriglyceridemia 05/16/2012 CORON ATHEROSCL ASSINIBO[place] AND [place] CORON VESSEL 07/11/2010 Dyslipidemia, goal LDL [...] as of this encounter (statuses as of 10/04/2023) Resolved Problems Problem Noted Date Diagnosed Date [...] as of this encounter (statuses as of 10/04/2023) Immunizations Name Administration Dates Next Due COVID-19 [...] AM EDT Chair 10. [facility]. Patient was seen by Dr. [...] Description 2023 7:10 AM EDT Laboratory Laboratory [facility] Radha Contreras 200 [facility] [place] [phone] [place] [address] [place] [address] 2023 8:15 AM EDT Office Visit Hematology/Oncology [facility] Radha Contreras 200 [facility] [place] [phone] Lasha Christine MD 200 [facility] [place] [address] 2023 8:45 AM EDT Hem/Onc Treatment Hematology/Oncology Treatment, [place] [address] [place] [address] [place], Chair 2 Hem Onc Sc[place]ery [address] [place] [address] 10/30/2023 1:00 PM EDT Telemedicine Neurosurgery, [place] [address] [place] [address] Dashawn Haines MD [address] [place] [address] 11/05/2023 3:25 PM EDT Office Visit Interventional Pain Center, [facility] [place] [address] Wiliam Tam DO 132 [facility] [address] 11/11/2023 10:00 AM EDT Imaging Radiology [facility] 132 [facility] [place] [address] 12/17/2023 10:00 AM EDT Appointment Vascular Lab [facility] [address] [place] [address] 12/17/2023 10:30 AM EDT Office Visit Vascular Surg [facility] [address] [place] [address] Margarito Cabrera MD [address] [place] [address] Scheduled Procedures Name Priority Associated Diagnoses Date/Ti [...] Colorectal Cancer Screening 11/03/2023 GFR 10/02/2024 10/03/2023, 0509/2023, 08/22/2023, Additional history exists Albumin/Creatinine Ratio 05/17/2025 [...] encounter Medical Devices Implanted Type Area Home Theatre Technician Device Identifier Shelf Expiration Date Model / Serial / Lot Stent Main Body Gjxc-46-54-Zt - [id number] Implanted:Qty: 1 on 06/10/2014 by Ronal Gallegos MD [place] [facility] Aorta [employer] 04/07/2016 TFFB-24-8 2-ZT / / Graft Iliac Leg Spirlz [id number] - [id number] Implanted:Qty: 1 on 06/10/2014 by Ronal Gallegos MD [place] [facility] Right: Aorta [employer] 10/09/2015 [id number] / / [id number] Description: Graft Iliac Leg Spirlz 25z04gt - [id number] Implanted:Qty: 1 on 06/10/2014 by Ronal Gallegos MD at [place] [facility] Right: Femoral Artery [employer] 11/07/2016 [id number] / / [id number] Stent Polmer 29mm P3110 - [id number] Implanted:Qty: 1 on 06/10/2014 by Ronal Gallegos MD at [facility] N/A: Aorta JNJ : CORDIS ENDOVASCULAR 07/26/2018 P3110 / / [id number] Codman Orbit Galaxy Coil 2.5mm X 3.5cm Implanted:Qty: 1 on 09/12/2015 by Arik Shin MD at OR [facility] Left: Head LENORA & BBOXX [facility] 02/26/2017 [id number] / [id number] / [id number] Description:COMPLEX XTRASOFT detachable coil deployed left internal carotid artery Codman Orbit Galaxy Coil 2.5mm X 2.5cm Implanted:Qty: 1 on 09/12/2015 by Arik Shin MD at OR [facility] Left: Head LENORA & LENORA [facility] 01/27/2016 [id number] / [id number] / [id number] Description:COMPLEX XTRASOFT detachable coil deployed left internal carotid artery aneurysm Codman [place] 2 Stent 4mm X 30mm Implanted:Qty: 1 on 09/12/2015 by Arik Shin MD at OR [facility] Left: Head LENORA & LENORA DEPUY 03/26/2018 [id number] / [id number] / [id number] Description:Vascular reconst ruction device deployed in left internal carotid artery Codman Orbit Galaxy Coil 6mm X 20cm Implanted:Qty: 1 on 09/12/2015 by Arik Shin MD at OR [facility] Left: Head LENORA & LENORA [facility] 09/26/2016 [id number] / [id number] / [id number] Description:COMPLEX FILL det achable coil deployed left internal carotid artery aneurysm Codman Orbit Galaxy Coil 4mm X 10cm Implanted:Qty: 1 on 09/12/2015 by Arik Shin MD at OR [facility] Left: Head LENORA & LENORA CODMAN 10/27/2015 [id number] / [id number] / [id number] Description:COMPLEX XTRASOFT detachable coil deployed left internal carotid artery aneurysm Codman Orbit Galaxy Coil 3.5mm X 9cm Implanted:Qty: 1 on 09/12/2015 by Arik Shin MD at OR [facility] Left: Head LENORA & LENORA CODMAN 12/28/2015 [id number] / [id number] / [id number] Description:COMPLEX XTRASOFT detachable coil deployed left internal carotid artery aneurysm Codman Orbit Galaxy Coil 3mm X 6cm Implanted:Qty: 1 on 09/12/2015 by Arik Shin MD at OR [facility] Left: Head LENORA & LENORA CODMAN 04/28/2017 [id number] / [id number] / [id number] Description:COMPLEX XTRASOFT detachable coil deployed left internal carotid artery aneurysm Lens Intraoc 21.0 - [id number] - [id number] Implanted:Qty: 1 on 11/08/2020 by Yuri Bradley MD at OR [facility] Left: Eye BAUSCH & LOMB 06/26/2025 [id number] / [id number] / [id number] Lens Intraoc 20.5 - [id number] - [id number] Implanted:Qty: 1 on 11/22/2020 by Yuri Bradley MD at OR [facility] Right: Eye BAUSCH & LOMB 07/27/2025 [id number] / [id number] / [id number] Clip Quick 2.8mm 230cm - [id number] Implanted:Qty: 3 on 03/29/2021 by Luciana Fernandez MD at ENDOSCOPY [facility] [employer] 08/27/2023 HX-202UR. A / / Sureclip 16mm 235cm - [id number] Implanted:Qty: 2 on 05/07/2022 by Luciana Fernandez MD at ENDOSCOPY [facility] Colon MICRO TECH ENDOSCOPY 07/06/2024 [id number] / / Power Port 8fr Sngl Lumen Plas - [id number] Implanted:Qty: 1 on 01/30/2023 by Koko Santiago MD at OR [facility] N/A: Chest CR BARD : PERIPHERAL VASCULAR 07/27/2024 [id number] / / [id number] Power Port 8fr Sngl Lumen Plas - [id number] Implanted:Qty: 1 on 01/30/2023 by Koko Santiago MD at OR [facility] CR BARD : PERIPHERAL VASCULAR [id number] 07/27/2024 [id number] / / [id number] documented as of this encounter Visit Diagnoses [...] ONCE PRN Other, Hypersensitivity Reaction, Starting on Sat10/04/23 at 0937, Until 10/05/23 at 0936, For 24 hours EPINEPHrine 1 MG/ML inj 0.3 mg 0.3 mg, Intramuscular, ONCE PRN Other, Hypersensitivity Reaction or Anaphylaxis, Starting on Sat10/04/23 at 0937, Until 10/05/23 at 0936, For 24 hours hEParin 100 UNIT/ML Lock Flush inj 500 Units 500 Units (5 mL), IV Lock, PRN Other, IV Flush, Starting on Sat10/04/23 at 0937, Until 10/05/23 at 0936, For 24 hours, Do not flush if lock, PICC, or central line not in place; IV infusing or unable to flush. Given 10/04/2023 2:28 PM EDT 500 Units Hydrocortisone Sod Suc (PF) (Solu-Cortef) inj 100 mg 100 mg, IV Push, ONCE PRN Other, Hypersensitivity Reaction, Starting on Sat10/04/23 at 0937, Until 10/05/23 at 0936, For 24 hours LORAzepam (Ativan) tab 0.5 mg 0.5 mg, Oral, ONCE PRN Anxiety, Nausea, Starting on Sat10/04/23 at 1045, Until Discontinued NSS infusion Intravenous, at 50 mL/hr, PRN, Starting on Sat10/04/23 at 1045, Until Discontinued, Maintenance line Start Infusion 10/04/2023 9:46 AM EDT 50 mL/hr oxygen GAS Inhalation, OXYGEN, First dose on Sat10/04/23 at 1015, Until Discontinued, Device/Managed by: Low Flow Device, [...] Flush, Starting on Sat10/04/23 at 0937, Until 10/05/23 at 0936, For 24 hours, Do not flush if lock, PICC, or central line not in place; IV infusing or unable to flush. Given 10/04/2023 2:28 PM EDT 10 mL Inactive Administered Medications [...] 10:08 AM EDT 150 mg 538.4 mL/hr NSS infusion FOR HYDRATION Intravenous, at 500 mL/hr Administer over 2 Hours, ONCE, 1 dose, On Sat10/04/23 at 1245 Start Infusion 10/04/2023 12:32 PM EDT 1,000 mL 500 mL/hr PEMEtrexed Disodium (Alimta) 900 mg in NSS 100 mL infusion 900 mg (rounded from 925 mg = 500 mg/m2 1.85 m2 Treatment Plan BSA from Recorded weight), IV Piggyback, ONCE, 1 dose, On Sat10/04/23 at 1030, Administer over 10 Minutes Start Infusion 10/04/2023 10:46 AM EDT 900 mg 630 mL/hr vitamin [...] were consensually agreed upon. Care Teams Supervising Bailiff Relationship Specialty Start Date End Date Mauro Watson DO [address] [place] [address] PCP - General Family Medicine 04/13/19 documented as of this encounter
--- OUTSIDE RECORDS SUMMARY | 2024-02-19 09:33 | External Medical Summary | Summary of Care ---
Author Name Unknown Organization [facility] Address [address] [place] [address] Phone [phone] Care Team Providers Care Stationary Plant Operators Name Role Phone Mauro Watson DO Primary Care Provider Reason for Visit * Reason Comments Outpatient Testing Encounter Details Date Type Department Care Team (Latest Contact Info) Description 10/03/2023 12:40 PM EDT Laboratory Laboratory [facility] [address] [place] [phone] [facility] 200 [facility] [place] [address] Cholangiocarcinoma (HCC); Encounter for antineoplastic chemotherapy; 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); Other abnormal tumor markers; Encounter for long-term (current) use of medications Allergies Active Allergy Reactions Criticality Noted Date Comments Aspirin Bleeding High 11/26/2011 Significant hemorroidal bleed on aspirin,high doses Duloxetine Hcl Hypertension 01/26/2020 documented as of this encounter (statuses as of 10/03/2023) Medications Medication Sig Dispensed Refills Start Date [...] as of this encounter (statuses as of 10/03/2023) Active Problems Problem Noted Date Diagnosed Date Malignant neoplasm of left lung 08/23/2023 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 01/21/2023 Encounter for antineoplastic chemotherapy 2022 Medical marijuana use 08/26/2021 CKD (chronic kidney disease), stage II 2 Overview: EGFR 72 Lumbar radiculopathy 05/27/2019 Atherosclerosis of [place] co ronary artery of [place] heart with angina pectoris 05/05/2019 History of colon polyps 08/12/2018 ACEI/ARB contraindicated 09/21/2016 Carotid aneurysm, left 09/13/2015 Overview: S/p coil embolization Cerebral aneurysm, nonruptured 09/05/2015 AAA (abdominal aortic aneurysm) 06/20/2015 Overview: S/p repair Bilateral carotid artery disease 06/20/2015 Medical home patient encounter 05/19/2014 Hypertriglyceridemia 05/16/2012 [address]OSCL [place] CORON VESSEL 07/11/2010 Dyslipidemia, goal LDL below [...] as of this encounter (statuses as of 10/03/2023) Resolved Problems Problem Noted Date Diagnosed Date [...] as of this encounter (statuses as of 10/03/2023) Immunizations Name Administration Dates Next Due COVID-19 [...] Team (Late st Contact Info) Description 10/04/2023 9:15 AM EDT Office Visit Hematology/Oncology [facility] 200 [facility] [place] [address] Lasha Christine MD 200 [facility] [place] [address] 10/04/2023 9:45 AM EDT Hem/Onc Treatment Hematology/Oncology Treatment, [place] 200 [place] [phone] Diane, Chair 11 Hem Onc [address] [place] [address] 10/30/2023 1:00 PM EDT Telemedicine Neurosurgery, [place] [address] [place] [address] Dashawn Haines MD [address] [place] [address] 11/05/2023 3:25 PM EDT Office Visit Interventional Pain Center, [facility] [address] [place] [address] Wiliam Tam DO [address] [place] [address] 12/17/2023 10:00 AM EDT Appointment Vascular Lab [place] [address] [place] [address] 12/17/2023 10:30 AM EDT Office Visit Vascular Surg [facility] [address] [place] [address] Margarito Cabrera MD [address] [place] [address] Pending Results Name Type Priority Associated Diagnoses Date /Time CEA Lab STAT Cholangiocarcinoma (HCC) Encounter for antineoplastic chemotherapy 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) Other abnormal tumor markers 10/03/2023 11:53 AM EDT TSH WITH FREE T4 IF INDICATED Lab STAT Cholangiocarcinoma (HCC) Encounter for antineoplastic chemotherapy 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) Other abnormal tumor markers Encounter for long-term (current) use of medications 10/03/2023 11:53 AM EDT MAGNESIUM Lab STAT Cholangiocarcinoma (HCC) Encounter for antineoplastic chemotherapy 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) Other abnormal tumor markers 10/03/2023 11:53 AM EDT COMPREHENSIVE METABOLIC PANEL Lab STAT Cholangiocarcinoma (HCC) Encounter for antineoplastic chemotherapy 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) Other abnormal tumor markers 10/03/2023 11:53 AM EDT CBC WITH WBC DIFFERENTIAL Lab STAT Cholangiocarcinoma (HCC) Encounter for antineoplastic chemotherapy 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) Other abnormal tumor markers 10/03/2023 11:53 AM EDT CBC Lab STAT Cholangiocarcinoma (HCC) Encounter for antineoplastic chemotherapy 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) Other abnormal tumor markers 10/03/2023 11:53 AM EDT DIFFERENTIAL, AUTOMATED Lab STAT Cholangiocarcinoma (HCC) Encounter for antineoplastic chemotherapy 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) Other abnormal tumor markers 10/03/2023 11:53 AM EDT Scheduled Procedures Name Priority Associated [...] encounter Medical Devices Implanted Type Area Senior Planning Analyst Device Identifier Shelf Expiration Date Model / Serial / Lot Stent Main Body Peha-97-71-Zt - [id number] Implanted:Qty: 1 on 06/10/2014 by Ronal Gallegos MD at OR [facility] Aorta [employer] 04/07/2016 TFFB-24-8 2-ZT / / Graft Iliac Leg Spirlz [id number] - [id number] Implanted:Qty: 1 on 06/10/2014 by Ronal Gallegos MD at OR [facility] Right: Aorta [employer] 10/09/2015 [id number] / / [id number] Description: Graft Iliac Leg Spirlz [id number] - [id number] Implanted:Qty: 1 on 06/10/2014 by Ronal Gallegos MD at OR [facility] Right: Femoral Artery [employer] 11/07/2016 [id number] / / [id number] Stent Polmer 29mm P3110 - [id number] Implanted:Qty: 1 on 06/10/2014 by Ronal Gallegos MD at OR [facility] N/A: Aorta JNJ : CORDIS ENDOVASCULAR 07/26/2018 P3110 / / [id number] Codman Orbit Galaxy Coil 2.5mm X 3.5cm Implanted:Qty: 1 on 09/12/2015 by Arik Shin MD at OR [facility] Left: Head LENORA & LENORA [facility] 02/26/2017 [id number] / [id number] / [id number] Description:COMPLEX XTRASOFT detachable coil deployed left internal carotid artery Codman Orbit Galaxy Coil 2.5mm X 2.5cm Implanted:Qty: 1 on 09/12/2015 by Arik Shin MD at OR [facility] Left: Head LENORA & LENORA [facility] 01/27/2016 [id number] / [id number] / [id number] Description:COMPLEX XTRASOFT detachable coil deployed left internal carotid artery aneurysm Codman [place] 2 Stent 4mm X 30mm Implanted:Qty: 1 on 09/12/2015 by Arik Shin MD at OR [facility] Left: Head LENORA & LENORA DEPUY 03/26/2018 [id number] / [id number] / [id number] Description:Vascular reconst ruction device deployed in left internal carotid artery Codman Orbit Galaxy Coil 6mm X 20cm Implanted:Qty: 1 on 09/12/2015 by Arik Shin MD at OR [facility] Left: Head LENORA & LENORA CODMAN 09/26/2016 [id number] / [id number] / [id number] Description:COMPLEX FILL det achable coil deployed left internal carotid artery aneurysm Codman Orbit Galaxy Coil 4mm X 10cm Implanted:Qty: 1 on 09/12/2015 by Arik Shin MD at OR [facility] Left: Head LENORA & LENORA CODMAN 10/27/2015 [id number] / [id number] / [id number] Description:COMPLEX XTRASOFT detachable coil deployed left internal carotid artery aneurysm Codman Orbit Galaxy Coil 3.5mm X 9cm Implanted:Qty: 1 on 09/12/2015 by Arik Shin MD at OR [facility] Left: Head LENORA & LENORA CODMAN 12/28/2015 [id number] / [id number] / [id number] Description:COMPLEX XTRASOFT detachable coil deployed left internal carotid artery aneurysm Codman Orbit Galaxy Coil 3mm X 6cm Implanted:Qty: 1 on 09/12/2015 by Arik Shin MD at OR [facility] Left: Head LENORA & LENORA CODMAN 04/28/2017 [id number] / [id number] / [id number] Description:COMPLEX XTRASOFT detachable coil deployed left internal carotid artery aneurysm Lens Intraoc 21.0 - [id number] - [id number] Implanted:Qty: 1 on 11/08/2020 by Yuri Bradley MD at OR [facility] Left: Eye BAUSCH & LOMB 06/26/2025 [id number] / [id number] / [id number] Lens Intraoc 20.5 - [id number] - [id number] Implanted:Qty: 1 on 11/22/2020 by Yuri Bradley MD at OR [facility] Right: Eye BAUSCH & LOMB 07/27/2025 [id number] / [id number] / [id number] Clip Quick 2.8mm 230cm - [id number] Implanted:Qty: 3 on 03/29/2021 by Luciana Fernandez MD at ENDOSCOPY [facility] [employer] 08/27/2023 HX-202UR. A / / Sureclip 16mm 235cm - [id number] Implanted:Qty: 2 on 05/07/2022 by Luciana Fernandez MD at ENDOSCOPY [facility] Colon MICRO TECH ENDOSCOPY 07/06/2024 [id number] / / Power Port 8fr Sngl Lumen Plas - [id number] Implanted:Qty: 1 on 01/30/2023 by Koko Santiago MD at OR [facility] N/A: Chest CR BARD : PERIPHERAL VASCULAR 07/27/2024 [id number] / / [id number] Power Port 8fr Sngl Lumen Plas - [id number] Implanted:Qty: 1 on 01/30/2023 by Koko Santiago MD at OR [facility] CR BARD : PERIPHERAL VASCULAR [id number] 07/27/2024 [id number] / / [id number] documented as of this encounter Visit Diagnoses Diagnosis Cholangiocarcinoma (HCC) Malignant neoplasm of intrahepatic bile ducts Encounter for antineoplastic chemotherapy 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) Other abnormal tumor markers Encounter for long-term (current) use of medications [...] and were consensually agreed upon. Care Teams Stationary Plant Operators Relationship Specialty Start Date End Date Mauro Watson DO [address] [place] [address] PCP - General Family Medicine 04/13/19 documented as of this encounter
--- OUTSIDE RECORDS SUMMARY | 2024-02-19 09:33 | External Medical Summary ---
Author Name Unknown Address Unknown Organization K09:[facility] - [address] [place] [address] Laboratory Report Ordering Provider Test Date Status ANN KLEIN 10/03/2023 11:53:00 Final Observation Date Value Abnormality Reference (Units ) Status BUN 10/03/2023 11:53:00 12 6-20 (mg/dL) Final Creatinine 10/03/2023 11:53:00 1.0 0.6-1.2 (mg/dL) Final Glomerular filtration rate/1.73 sq M.predicted [Volume Rate/Area] in Serum, Plasma or Blood by Creatinine-based formula (CKD-EPI) 10/03/2023 11:53:00 81 >=60 (mL/min) Final eGFR is calculated based on the CKD-EPI 2020 equation Sodium 10/03/2023 11:53:00 138 135-146 (m mol/L) Final Potassium 10/03/2023 11:53:00 4.4 3.5-5.1 (m mol/L) Final Cl 10/03/2023 11:53:00 106 98-107 (mm ol/L) Final CO2 10/03/2023 11:53:00 21 Below low normal 22- 32 (mmol/L) Final Anion gap 10/03/2023 11:53:00 11 7-15 (mmol /L) Final Glucose 10/03/2023 11:53:00 139 Above high normal 70 -120 (mg/dL) Final Albumin 10/03/2023 11:53:00 3.2 Below low normal 3.8 -5.0 (g/dL) Final AST (Aspartate aminotransferase) 10/03/2023 11:53:00 70 Above high normal 10-50 (U/L) Final Alk Phos 10/03/2023 11:53:00 230 Above high normal 35 -130 (U/L) Final Bilirubin, Total 10/03/2023 11:53:00 0.3 <=1 .2 (mg/dL) Final Calcium 10/03/2023 11:53:00 9.4 8.4-10.2 ( mg/dL) Final Protein 10/03/2023 11:53:00 7.1 6.0-8.3 (g /dL) Final ALT (Alanine aminotransferase) 10/03/2023 11:53:00 32 10-50 (U/L) Efrain mathur Performing Location [facility] [address] [place] [address]
--- OUTSIDE RECORDS SUMMARY | 2024-02-19 09:33 | External Medical Summary ---
Author Name Unknown Address Unknown Organization K01:[facility] [place] - [address] [place] [address] Laboratory Report Ordering Provider Test Date Status ANN KLEIN 10/03/2023 11:53:00 Final Observation Date Value Abnormality Reference (Units ) Status CEA 10/03/2023 11:53:00 22447.0 Above high normal <= 5.2 (ng/mL) Final Performing Location [facility] - [address] [place] [address]
--- OUTSIDE RECORDS SUMMARY | 2024-02-19 09:33 | External Medical Summary | Summary of Care ---
Author Name Unknown Organization [facility] Address [address] [place] [address] Phone [phone] Care Team Providers Care Bindery Leadperson Name Role Phone Watson Mauro Leonardogordy Primary Care Provider Reason for Referral * Precert (Within 10 days (routine)) - Authorized Specialty Diagnoses / Procedures Referred By Contac t Referred To Contact Radiology Diagnoses Malignant neoplasm of left lung, unspecified part of lung (HCC) 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) Dehydration Procedures CT CHEST/ABDOMEN/PELVIS WITH IV CONTRAST WITH ORAL CONTRAST Lasha Christine MD [address] [place] [address] Referral ID Status Reason Start Date Expiration Date V isits Requested Visits Authorized [id number] Authorized 10/04/2023 999 999 Reason for Visit * Reason Comments Chemotherapy Chemo/recheck Encounter Details Date Type Department Care Team (Late st Contact Info) Description 10/04/2023 9:15 AM EDT Office Visit Hematology/Oncology [place] [facility]ha Rosado [address] [place] [phone] Lasha Christine MD 200 [facility] [place] [address] Malignant neoplasm of left lung, unspecified part of lung (HCC)*; 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); Dehydration Allergies Active Allergy Reactions Criticality Noted Date [...] EGFR 72 Lumbar radiculopathy 05/27/2019 Atherosclerosis of [place] co ronary artery of [place] heart with angina pectoris 05/05/2019 History of colon polyps 08/12/2018 ACEI/ARB contraindicated 09/21/2016 Carotid aneurysm, left 09/13/2015 Overview: S/p coil embolization Cerebral aneurysm, nonruptured 09/05/2015 AAA (abdominal aortic aneurysm) 06/20/2015 Overview: S/p repair Bilateral carotid artery disease 06/20/2015 Medical home patient encounter 05/19/2014 Hypertriglyceridemia 05/16/2012 CORON ATHEROSCL [place] CORON VESSEL 07/11/2010 Dyslipidemia, goal LDL below [...] Sign Reading Time Taken Comments Blood Pressure 105/67 10/04/2023 9:08 AM EDT Pulse 86 10/04/2023 9:08 AM EDT Temperature 35.8 C (96.5 F) 10/04/2023 9:08 AM ED T Respiratory Rate - - Oxygen Saturation 95% 10/04/2023 9:08 AM EDT Inhaled Oxygen Concentration - - Weight 75.8 kg (167 lb 3.2 oz) 10/04/2023 9:08 A M EDT Height - - Body Mass Index 25.43 06/06/2023 12:13 PM EST documented in this [...] Progress Notes * Lasha Christine MD - 10/04/2023 9:15 AM EDT Hematology/Oncology Outpatient Clinic note [facility] [address] [place], [place] [address] Name: Mp Vaughn Date: 09/12/2023 CHIEF COMPLAINT: [...] the recommendation from Dr. Jose Bejarano from [facility] every 21 days x 8 cycles (03/04/23 [...] quadrant pain but lately he is not DIAGNOSTIC WORKUP: CT scan of the abdomen [...] Alimta and carboplatin chemotherapy, so far received 2 cycles of chemotherapy, previously noted upper abdominal pain has improved, he is not using oxycodone at this time, currently not on pain medication, nausea and vomiting has improved, appetite improved, weight gain by about 10 lb, current weight around 167 lb, no increasing [...] ARTERY performed by Arik Shin MD at [facility] CATHETER OCCLUSION/EMBOLIZATION,MINING MANAGER N/A 09/12/2015 TRANSCATHETER PERMANENT ARTERIAL OCCLUSION CENTRAL NERVOUS SYSTEM performed by Arik Shin MD at OR [facility] COLONOSCOPY W/ LESION REMOVAL, SNARE 09/09/2006 adenomatous polyp--repeat 5 years COLONOSCOPY, DIAGNOSTIC (RECTUM) 08/15/2012 adenomatous polyp, diverticulosis, repeat 5 yrs/COLONOSCOPY FLEXIBLE PROXIMAL DIAGNOSTIC performed by Luciana Fernandez MD at ENDOSCOPY [facility] COLONOSCOPY, DIAGNOSTIC (RECTUM) 11/23/2015 adenomatous polyps, diverticulosis, andiodysplastic lesions, repeat 5 yrs/[facility] COLONOSCOPY, DIAGNOSTIC (RECTUM) 11/28/2015 colonic ulcer, diverticulosis/inpt [facility] COLONOSCOPY, DIAGNOSTIC (RECTUM) 03/29/2021 adenomatous polyps, diverticulosis, repeat 1 yr / COLONOSCOPY FLEXIBLE PROXIMAL DIAGNOSTIC performed by Luciana Fernandez MD at ENDOSCOPY [facility] COLONOSCOPY, DIAGNOSTIC (RECTUM) 05/07/2022 benign adenomatous polyps, repeat 6 mo / COLONOSCOPY FLEXIBLE PROXIMAL DIAGNOSTIC performed by Luciana Fernandez MD at ENDOSCOPY [facility] COLONOSCOPY, DIAGNOSTIC (RECTUM) 11/02/2022 resolving ischemic colitis, repeat 9 mo / COLONOSCOPY FLEXIBLE PROXIMAL DIAGNOSTIC performed by Luciana Fernandez MD at ENDOSCOPY [facility] EGD, FLEXIBLE, DIAGNOSTIC 11/23/2015 reflux esophagitis, Schatzki ring, [facility] EGD, FLEXIBLE, DIAGNOSTIC 01/02/2023 hiatal hernia/gastritis/biopsies show mild gastritits of stomach/ESOPHAGOGASTRODUODENOSCOPY (EGD), FLEXIBLE, TRANSORAL, DIAGNOSTIC performed by Jory Sauceda DO at ENDOSCOPY [facility] EGD, W/ENDOSCOPIC US 01/02/2023 multiple metastatic lesions liver/ESOPHAGOGASTRODUODENOSCOPY (EGD), FLEXIBLE, TRANSORAL, ENDOSCOPICULTRASOUND performed by Jory Sauceda DO at ENDOSCOPY [facility] HEMORRHOIDECTOMY, INTERNAL, 2 + COLUMNS 06/28/2000 Internal [...] LUMBAR OR SACRAL performed by Wiliam Tam, at OR [facility] TUNN ACC DEV;5 YRS/OLDER N/A 01/30/2023 INSERT TUNNELED CENTRAL VENOUS ACCESS WITH SUBQ PORT performed by Koko Santiago MD at OR [facility] INSERT ARTERY CATHETER THRU SKIN Right [...] BRANCH performed by Arik Shin MD at [facility] CATHETER IN ARTERIES N/A 09/12/2015 CATHETER PLACEMENT, BRACHIOCEPHALIC, THIRD ORDER BRANCH performed by Arik Shin MD at [facility] REMOVE CATARACT, INSERT LENS PROSTH Left 11/08/2020 left EXTRACAPSULAR CATARACT REMOVAL WITH INTRAOCULAR LENS performed by Yuri Bradley MD at OR [facility] REMOVE CATARACT, INSERT LENS PROSTH Right 11/22/2020 right EXTRACAPSULAR CATARACT REMOVAL WITH INTRAOCULAR LENS performed by Yuri Bradley MD at OR [facility] VERTEBRAL ARTERY CATHETER PLACEMENT Bilateral 08/20/2016 CATHETER PLACEMENT VERTEBRAL ARTERY, performed by Arik Shin MD at OR [facility] Social History Socioeconomic [...] Never true Transportation Needs: Not on file Physical Activity: Not on file Stress: Not on file Social Connections: Not on file Intimate Partner Violence: Not on file Housing Stability: Not on [...] mouth every 8 hours if needed for [id number] Tablet 2 Lidocaine-Prilocaine 2.5-2.5 % External Cream [...] See HPI - otherwise negative OBJECTIVE: BP 105/67 (BP Site: Left Arm, BP Position: Sitting, BP Cuff Size: Regular) | Pulse 86 | Temp 35.8 C (96.5 F) (Tympanic) | Wt 75.8 kg (167 lb 3.2 oz) | SpO2 95% | BMI 25.43 kg/m | BSA 1.91 m PHYSICAL EXAM: [...] Neurologic: Normal - Grossly intact LABS: Blood work up done on 10/03/2023: - WBC 4300, H&H of 9.5/30.4, Platelet count of 111934 -BUN/Creat:12/1.0, Calcium 9.4 -AST 70, ALT 32, alkaline phosphatase 230, bilirubin level 0.3. IMAGING: Chest X ray 09/12/23: IMPRESSION Port-A-Cath [...] is receiving Alimta and carboplatin combination, received 2 cycles of chemotherapy, gradual Rituximab CEA level around 20,000 range noted, improvement of the liver function test noted, he is feeling well, gained weight by about 10 lb. Previously noted abdominal pain improved, currentlynot taking opioid medication I reviewed his blood workup done yesterday, overall stable blood workup Will proceed with Alimta and carboplatin as we planned. I am planning for follow-up imaging study after 4 cycles of chemotherapy. (Ordered) He will receive additional IV hydration after completion of the chemotherapy. ( his blood pressure on lower side). Will see him in [address] [...] Notes * Rubina Wong MED ASSIST - 10/04/2023 9:09 AM EDT Patient identifed by name and birthdate Do you have any concerns about pain management for today's visit? Yes. Patient instructed to discuss pain concerns with provider during the visit today Living Will or Advance Directive for Health Care as noted on the problem list. [facility] is a way you can talk to your provider on line through e-mail. Would you like to sign up? I can activate it for you? ALREADY ACTIVE Filed Vitals: 10/04/23 0908 BP: 105/67 Pulse: 86 Temp: 35.8 C (96.5 F) TempSrc: Tympanic SpO2: 95% Weight: 75.8 kg (167 lb 3.2 oz) Patient was instructed to not get up on the exam table/exam chair until directed and assisted by their provider; patient is to remain seated in the chair/ wheelchair/ exam table/ exam chair for fall prevention and safety reasons. Patient is aware to have assistance to step down off exam table/exam chair with personnel. Patient voiced full comprehension of instructions. NOTE: patient does report some lightheadedness when walking and going from sitting to standing positions documented in this encounter Plan of Treatment Upcoming Encounters Date Type Department Care Team (Late st Contact Info) Description 2023 7:10 AM EDT Laboratory Laboratory [place] Radha Rosado [address] [place] [phone] [place] [address] [place] [address] 2023 8:15 AM EDT Office Visit Hematology/Oncology [place] [facility]ha Rosado [address] [place] [phone] Lasha Christine MD 200 [facility] [place] [address] 2023 8:45 AM EDT Hem/Onc Treatment Hematology/Oncology Treatment, [place] [address] [place] [address] Park, Chair 2 Hem Onc Scenery [address] [place] [address] 10/30/2023 1:00 PM EDT Telemedicine Neurosurgery, [place] [address] [place] [address] Dashawn Haines MD [address] [place] [address] 11/05/2023 3:25 PM EDT Office Visit Interventional Pain Center, [facility] [address] [facility] [place] [address] Wiliam Tam DO [address] [facility] [place] [phone] 12/17/2023 10:00 AM EDT Appointment Vascular Lab [place] [address] [place] [address] 12/17/2023 10:30 AM EDT Office Visit Vascular Surg [place] [address] [place] [address] Margarito Cabrera MD [address] [place] [address] Scheduled Orders Name Type Priority Associated Diagnoses Orde r Schedule CT CHEST/ABDOMEN/PELVI S WITH IV CONTRAST WITH ORAL CONTRAST Medical Imaging Routine Malignant neoplasm of left lung, unspecified part of lung (HCC) 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) Dehydration Expected: 10/04/2023, Expires: 10/03/2024 Scheduled Procedures Name Priority Associated Diagnoses Date/Ti [...] encounter Medical Devices Implanted Type Area Senior Dynamics Crm Developer Device Identifier Shelf Expiration Date Model / Serial / Lot Stent Main Body Lcrf-82-49-Zt - [id number] Implanted:Qty: 1 on 06/10/2014 by Ronal Gallegos MD at OR [facility] Aorta [employer]OOK [employer] 04/07/2016 TFFB-24-8 2-ZT / / Graft Iliac Leg Spirlz [id number] - [id number] Implanted:Qty: 1 on 06/10/2014 by Ronal Gallegos MD at OR [facility] Right: Aorta [employer] 10/09/2015 [id number] / / [id number] Description: Graft Iliac Leg Spirlz [id number] - [id number] Implanted:Qty: 1 on 06/10/2014 by Ronal Gallegos MD at OR [facility] Right: Femoral Artery [employer] 11/07/2016 [id number] / / [id number] Stent Polmer 29mm P3110 - [id number] Implanted:Qty: 1 on 06/10/2014 by Ronal Gallegos MD at OR [facility] N/A: Aorta JNJ : CORDIS ENDOVASCULAR 07/26/2018 [id number] / / [id number] Codman Orbit Galaxy Coil 2.5mm X 3.5cm Implanted:Qty: 1 on 09/12/2015 by Arik Shin MD at OR [facility] Left: Head LENORA & LENORA CODMAN 02/26/2017 [id number] / [id number] / [id number] Description:COMPLEX XTRASOFT detachable coil deployed left internal carotid artery Codman Orbit Galaxy Coil 2.5mm X 2.5cm Implanted:Qty: 1 on 09/12/2015 by Arik Shin MD at OR [facility] Left: Head LENORA & LENORA [facility] 01/27/2016 [id number] / [id number] / [id number] Description:COMPLEX XTRASOFT detachable coil deployed left internal carotid artery aneurysm Codman [place] 2 Stent 4mm X 30mm Implanted:Qty: 1 on 09/12/2015 by Arik Shin MD at OR [facility] Left: Head LENORA & LENORA DEPUY 03/26/2018 [id number] / [id number] / [id number] Description:Vascular reconst ruction device deployed in left internal carotid artery Codman Orbit Galaxy Coil 6mm X 20cm Implanted:Qty: 1 on 09/12/2015 by Arik Shin MD at OR [facility] Left: Head LENORA & LENORA CODMAN 09/26/2016 [id number] / [id number] / [id number] Description:COMPLEX FILL det achable coil deployed left internal carotid artery aneurysm Codman Orbit Galaxy Coil 4mm X 10cm Implanted:Qty: 1 on 09/12/2015 by Arik Shin MD at OR [facility] Left: Head LENORA & LENORA CODMAN 10/27/2015 [id number] / [id number] / [id number] Description:COMPLEX XTRASOFT detachable coil deployed left internal carotid artery aneurysm Codman Orbit Galaxy Coil 3.5mm X 9cm Implanted:Qty: 1 on 09/12/2015 by Arik Shin MD at OR [facility] Left: Head LENORA & LENORA CODMAN 12/28/2015 [id number] / [id number] / [id number] Description:COMPLEX XTRASOFT detachable coil deployed left internal carotid artery aneurysm Codman Orbit Galaxy Coil 3mm X 6cm Implanted:Qty: 1 on 09/12/2015 by Arik Shin MD at OR [facility] Left: Head LENORA & LENORA CODMAN 04/28/2017 [id number] / [id number] / [id number] Description:COMPLEX XTRASOFT detachable coil deployed left internal carotid artery aneurysm Lens Intraoc 21.0 - [id number] - [id number] Implanted:Qty: 1 on 11/08/2020 by Yuri Bradley MD at OR [facility] Left: Eye BAUSCH & LOMB 06/26/2025 [id number] / [id number] / [id number] Lens Intraoc 20.5 - [id number] - [id number] Implanted:Qty: 1 on 11/22/2020 by Yuri Bradley MD at OR [facility] Right: Eye BAUSCH & LOMB 07/27/2025 [id number] / [id number] / [id number] Clip Quick 2.8mm 230cm - [id number] Implanted:Qty: 3 on 03/29/2021 by Luciana Fernandez MD at ENDOSCOPY [facility] [employer] 08/27/2023 HX-202UR. A / / Sureclip 16mm 235cm - [id number] Implanted:Qty: 2 on 05/07/2022 by Luciana Fernandez MD at ENDOSCOPY [facility] Colon MICRO TECH ENDOSCOPY 07/06/2024 [id number] / / Power Port 8fr Sngl Lumen Plas - [id number] Implanted:Qty: 1 on 01/30/2023 by Koko Santiago MD at OR [facility] N/A: Chest CR BARD : PERIPHERAL VASCULAR 07/27/2024 [id number] / / [id number] Power Port 8fr Sngl Lumen Plas - [id number] Implanted:Qty: 1 on 01/30/2023 by Koko Santiago MD at OR [facility] CR BARD : PERIPHERAL VASCULAR [id number] 07/27/2024 [id number] / / [id number] documented as of this encounter Visit Diagnoses Diagnosis Malignant neoplasm of left lung, unspecified part of lung (HCC)- Primary 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) Dehydration documented in this encounter Advance Directives * Full Code (Latest Code Status on File) Date Activated Date Inactivated Comments 09/12/2015 11:01 AM 09/13/2015 2:50 PM This order reflects the patients wishes and were consensually agreed upon. * Full Code Date Activated Date Inactivated Comments 06/10/2014 10:48 AM 06/11/2014 8:37 PM This order reflects the patients wishes and were consensually agreed upon. Care Teams Bindery Leadperson Relationship Specialty Start Date End Date Mauor Watson DO [address] [address] PCP - General Family Medicine 04/13/19 documented as of this encounter"
--- OUTSIDE RECORDS SUMMARY | 2024-02-19 09:33 | External Medical Summary | Summary of Care ---
Author Name Unknown Organization [facility] Address [address] [place] [address] Phone [phone] Care Team Providers Care Magazine Grinder Loader Name Role Phone Mauro Watson DO Primary Care Provider Reason for Visit * Reason Comments Chemotherapy C7D8 Gemzar/Cisplati n * Episode Based Medications (Routine) - Closed Specialty Diagnoses / Procedures Referred By Edmund nelson Referred To Contact Diagnoses Cholangiocarcinoma (HCC) Encounter for antineoplastic chemotherapy Procedures TX CISPLATIN 10 MG INJECTION TX FOSAPREPITANT INJECTION TX IN GEMCITABINE HCL NOS 200MG TX INJ., DURVALUMAB, 10 MG Roberta La MD [address] [place] [address] Anc Hem/Onc Nandini Contreras DEPT CLOSED - 03/12/23 [address] [place] [address] Referral ID Status Reason Start Date Expiration Date Visits Re quested Visits Authorized [id number] Closed 02/25/2023 04/28/2099 999 999 Encounter Details Date Type Department Care Team (Latest Contact Info) Description 07/29/2023 9:15 AM EDT Hem/Onc Treatment Hematology/Oncolo gy Treatment, [place] [address] [place] [phone] [address] Hem Onc Sc[address] [place] [address] Cholangiocarcinoma (HCC)*; Encounter for antineoplastic chemotherapy Allergies [...] EGFR 72 Lumbar radiculopathy 05/27/2019 Atherosclerosis of [place] co ronary artery of [place] heart with angina pectoris 05/05/2019 History of colon polyps 08/12/2018 ACEI/ARB contraindicated 09/21/2016 Carotid aneurysm, left 09/13/2015 Overview: S/p coil embolization Cerebral aneurysm, nonruptured 09/05/2015 AAA (abdominal aortic aneurysm) 06/20/2015 Overview: S/p repair Bilateral carotid artery disease 06/20/2015 Medical home patient encounter 05/19/2014 Hypertriglyceridemia 05/16/2012 CORON ATHEROSCL [place] CORON VESSEL 07/11/2010 Dyslipidemia, goal LDL below [...] Description 10/04/2023 8:00 AM EDT Laboratory Laboratory [facility] Radha Contreras [address] [place] [phone] [facility] [address] [place] [address] 10/04/2023 9:15 AM EDT Office Visit Hematology/Oncology [facility] [place] [address] [place] [phone] Lasha Christine MD [address] [place] [address] 10/04/2023 9:45 AM EDT Hem/Onc Treatment Hematology/Oncology Treatment, [place] [address] [place], [place] [phone] Diane, Chair 11 Hem Onc Scene [address] [place] [address] 10/30/2023 1:00 PM EDT Telemedicine Neurosurgery, [place] [address] [place] [address] Dashawn Haines MD [facility] [place] [address] 11/05/2023 3:25 PM EDT Office Visit Interventional Pain Center, [facility] [address] [place] [address] Wiliam Tam DO [address] [facility] [phone] 12/17/2023 10:00 AM EDT Appointment Vascular Lab [facility] [address] [place] [address] 12/17/2023 10:30 AM EDT Office Visit Vascular Surg [place] [address] [place] [address] Margarito Cabrera MD [address] [place] [address] Scheduled Procedures Name Priority Associated Diagnoses Date/Ti [...] this encounter Medical Devices Implanted Type Area Teacher Lip Reading Device Identifier Shelf Expiration Date Model / Serial / Lot Stent Main Body Plct-00-77-Zt - [id number] Implanted:Qty: 1 on 06/10/2014 by Ronal Gallegos MD at [place] [facility] Aorta COOK GROUP 04/07/2016 TFFB-24-8 2-ZT / / Graft Iliac Leg Spirlz [id number] - [id number] Implanted:Qty: 1 on 06/10/2014 by Ronal Gallegos MD at [place] [facility] Right: Aorta [employer] 10/09/2015 [id number] / / [id number] Description: Graft Iliac Leg Spirlz 69d23wq - [id number] Implanted:Qty: 1 on 06/10/2014 by Ronal Gallegos MD at OR [facility] Right: Femoral Artery [employer] 11/07/2016 [id number] / / [id number] Stent Polmer 29mm P3110 - [id number] Implanted:Qty: 1 on 06/10/2014 by Ronal Gallegos MD at OR [facility] N/A: Aorta JNJ : CORDIS ENDOVASCULAR 07/26/2018 P3110 / / [id number] Codman Orbit Galaxy Coil 2.5mm X 3.5cm Implanted:Qty: 1 on 09/12/2015 by Arik Shin MD at OR [facility] Left: Head LENORA & LENORA CODMAN 02/26/2017 [id number] / [id number] / [id number] Description:COMPLEX XTRASOFT detachable coil deployed left internal carotid artery Codman Orbit Galaxy Coil 2.5mm X 2.5cm Implanted:Qty: 1 on 09/12/2015 by Arik Shin MD at OR [facility] Left: Head LENORA & LENORA CODMAN 01/27/2016 [id number] / [id number] / [id number] Description:COMPLEX XTRASOFT detachable coil deployed left internal carotid artery aneurysm Codman [place] 2 Stent 4mm X 30mm Implanted:Qty: 1 on 09/12/2015 by Arik Shin MD at OR [facility] Left: Head LENORA & LENORA DEPUY 03/26/2018 [id number] / [id number] / [id number] Description:Vascular reconst ruction device deployed in left internal carotid artery Codman Orbit Galaxy Coil 6mm X 20cm Implanted:Qty: 1 on 09/12/2015 by Arik Shin MD at OR [facility] Left: Head LENORA [employer] LENORA CODMAN 09/26/2016 [id number] / [id number] / [id number] Description:COMPLEX FILL det achable coil deployed left internal carotid artery aneurysm Codman Orbit Galaxy Coil 4mm X 10cm Implanted:Qty: 1 on 09/12/2015 by Arik Shin MD at OR [facility] Left: Head LENORA & LENORA CODMAN 10/27/2015 [id number] / [id number] / [id number] Description:COMPLEX XTRASOFT detachable coil deployed left internal carotid artery aneurysm Codman Orbit Galaxy Coil 3.5mm X 9cm Implanted:Qty: 1 on 09/12/2015 by Arik Shin MD at OR [facility] Left: Head LENORA & LENORA CODMAN 12/28/2015 [id number] / [id number] / [id number] Description:COMPLEX XTRASOFT detachable coil deployed left internal carotid artery aneurysm Codman Orbit Galaxy Coil 3mm X 6cm Implanted:Qty: 1 on 09/12/2015 by Arik Shin MD at OR [facility] Left: Head LENORA & LENORA CODMAN 04/28/2017 [id number] / [id number] / [id number] Description:COMPLEX XTRASOFT detachable coil deployed left internal carotid artery aneurysm Lens Intraoc 21.0 - [id number] - [id number] Implanted:Qty: 1 on 11/08/2020 by Yuri Bradley MD at OR [facility] Left: Eye BAUSCH & LOMB 06/26/2025 [id number] / [id number] / [id number] Lens Intraoc 20.5 - [id number] - [id number] Implanted:Qty: 1 on 11/22/2020 by Yuri Bradley MD at OR [facility] Right: Eye BAUSCH & LOMB 07/27/2025 [id number] / [id number] / [id number] Clip Quick 2.8mm 230cm - [id number] Implanted:Qty: 3 on 03/29/2021 by Luciana Fernandez MD at ENDOSCOPY [facility] [employer] Communication [employer] 08/27/2023 HX-202UR. A / / Sureclip 16mm 235cm - [id number] Implanted:Qty: 2 on 05/07/2022 by Luciana Fernandez MD at ENDOSCOPY [facility] Colon MICRO TECH ENDOSCOPY 07/06/2024 [id number] / / Power Port 8fr Sngl Lumen Plas - [id number] Implanted:Qty: 1 on 01/30/2023 by Koko Santiago MD at OR [facility] N/A: Chest CR BARD : PERIPHERAL VASCULAR 07/27/2024 [id number] / / [id number] Power Port 8fr Sngl Lumen Plas - [id number] Implanted:Qty: 1 on 01/30/2023 by Koko Santiago MD at OR [facility] CR BARD : PERIPHERAL VASCULAR [id number] 07/27/2024 [id number] / / [id number] documented as of this encounter Visit Diagnoses [...] and were consensually agreed upon. Care Teams Magazine Grinder Loader Relationship Specialty Start Date End Date Mauro Watson DO [address] [address] PCP - General Family Medicine 04/13/19 documented as of this encounter
--- OUTSIDE RECORDS SUMMARY | 2024-02-19 09:33 | External Medical Summary ---
Author Name Unknown Address Unknown Organization K01:[facility] - [address] [facility] [address] Laboratory Report Ordering Provider Test Date Status ANN KLEIN 10/03/2023 11:53:00 Final Observation Date Value Abnormality Reference (Units ) Status TSH 10/03/2023 11:53:00 0.54 0.27-4.20 (uIU/mL) Final Performing Location LABORATORY [facility] - [address] [facility] [address]
--- OUTSIDE RECORDS SUMMARY | 2024-02-19 09:34 | External Medical Summary | Summary of Care ---
Author Name Unknown Organization [facility] Address [address] [place] [address] Phone [phone] Care Team Providers Care Box Blank Machine Operator Helper Name Role Phone Mauro Watson DO Primary Care Provider Encounter Details Date Type Department Care Team (Late st Contact Info) Description 09/13/2023 Orders Only Hematology/Oncology [facility] [address] [place] [address] Enriqueta Souza CRNP [address] [place], [place] [id number] Dehydration* Allergies Active Allergy Reactions Criticality Noted Date Comments Aspirin Bleeding High 11/26/2011 Significant hemorroidal bleed on aspirin,high doses Duloxetine Hcl Hypertension 01/26/2020 documented as of this encounter (statuses as of 09/13/2023) Medications Medication Sig Dispensed Refills Start Date End Date Status Acetaminophen 325 MG Oral Tablet (Tylenol) take 2 tablet by mouth every 4 hours if needed FOR FEVER OR PAIN 0 05/08/2022 Active Gabapentin 600 MG Oral Tablet [...] needed for Pain, Moderate. 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 36 Tablet 1 08/22/2023 Active documented as of this encounter (statuses as of 09/13/2023) Active Problems Problem Noted Date Diagnosed Date Malignant neoplasm of left lung 08/23/2023 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 01/21/2023 Encounter for antineoplastic chemotherapy 2022 Medical marijuana use 08/26/2021 CKD (chronic kidney disease), stage II 2 Overview: EGFR 72 Lumbar radiculopathy 05/27/2019 Atherosclerosis of [place] co ronary artery of [place] heart with angina pectoris 05/05/2019 History of colon polyps 08/12/2018 ACEI/ARB contraindicated 09/21/2016 Carotid aneurysm, left 09/13/2015 Overview: S/p coil embolization Cerebral aneurysm, nonruptured 09/05/2015 AAA (abdominal aortic aneurysm) 06/20/2015 Overview: S/p repair Bilateral carotid artery disease 06/20/2015 Medical home patient encounter 05/19/2014 Hypertriglyceridemia 05/16/2012 CORON ATHEROSCL [place] CORON VESSEL 07/11/2010 Dyslipidemia, goal LDL below [...] as of this encounter (statuses as of 09/13/2023) Resolved Problems Problem Noted Date Diagnosed Date [...] as of this encounter (statuses as of 09/13/2023) Immunizations Name Administration Dates Next Due COVID-19 [...] Team (Late st Contact Info) Description 10/04/2023 7:30 AM EDT Laboratory Laboratory [facility] [address] [place] [address] [place], [facility] [address] [facility] [place] [address] 10/30/2023 1:00 PM EDT Telemedicine Neurosurgery, [address] [address] Dashawn Haines MD [facility] [place] [address] 11/05/2023 3:25 PM EDT Office Visit Interventional Pain Center, [facility] [address] [facility] [place] [address] Wiliam Tam DO [address] [place] [id number] 12/17/2023 10:00 AM EDT Appointment Vascular Lab [address] [address] 12/17/2023 10:30 AM EDT Office Visit Vascular Surg [address] [address] Margarito Cabrera MD [facility] [place] [address] Scheduled Procedures Name Priority Associated Diagnoses Date/Ti [...] Colorectal Cancer Screening 11/03/2023 GFR 09/11/2024 09/12/2023, 07/29, 08/13/2023, Additional history exists Albumin/Creatinine Ratio 05/17/2025 [...] this encounter Medical Devices Implanted Type Area Recording Studio Set Up Worker Device Identifier Shelf Expiration Date Model / Serial / Lot Stent Main Body Zcvz-67-25-Zt - [id number] Implanted:Qty: 1 on 06/10/2014 by Ronal Gallegos MD at [place] [facility] [place] Aorta [employer] 04/07/2016 TFFB-24-8 2-ZT / / Graft Iliac Leg Spirlz [id number] - [id number] Implanted:Qty: 1 on 06/10/2014 by Ronal Gallegos MD at [place] [facility] [place] Right: Aorta [employer] 10/09/2015 [id number] / / [id number] Description: Graft Iliac Leg Spirlz 03y73zc - [id number] Implanted:Qty: 1 on 06/10/2014 by Ronal Gallegos MD at [place] [facility] [place] Right: Femoral Artery [employer] 11/07/2016 [id number] / / [id number] Stent Polmer 29mm P3110 - [id number] Implanted:Qty: 1 on 06/10/2014 by Ronal Gallegos MD at [place] [facility] [place] N/A: Aorta JNJ : CORDIS ENDOVASCULAR 07/26/2018 P3110 / / [id number] Codman Orbit Galaxy Coil 2.5mm X 3.5cm Implanted:Qty: 1 on 09/12/2015 by Arik Shin MD at OR [facility] [place] Left: Head LENORA & LENORA CODMAN 02/26/2017 [id number] / [id number] / [id number] Description:COMPLEX XTRASOFT detachable coil deployed left internal carotid artery Codman Orbit Galaxy Coil 2.5mm X 2.5cm Implanted:Qty: 1 on 09/12/2015 by Arik Shin MD at OR [facility] [place] Left: Head LENORA & LENORA CODMAN 01/27/2016 [id number] / [id number] / [id number] Description:COMPLEX XTRASOFT detachable coil deployed left internal carotid artery aneurysm Codman [place] 2 Stent 4mm X 30mm Implanted:Qty: 1 on 09/12/2015 by Arik Shin MD at OR [facility] [place] Left: Head LENORA & LENORA DEPUY 03/26/2018 [id number] / [id number] / [id number] Description:Vascular reconst ruction device deployed in left internal carotid artery Codman Orbit Galaxy Coil 6mm X 20cm Implanted:Qty: 1 on 09/12/2015 by Arik Shin MD at OR [facility] [place] Left: Head LENORA & LENORA CODMAN 09/26/2016 [id number] / [id number] / [id number] Description:COMPLEX FILL det achable coil deployed left internal carotid artery aneurysm Codman Orbit Galaxy Coil 4mm X 10cm Implanted:Qty: 1 on 09/12/2015 by Arik Shin MD at OR [facility] [place] Left: Head LENORA & LENORA CODMAN 10/27/2015 [id number] 0 / [id number] / [id number] Description:COMPLEX XTRASOFT detachable coil deployed left internal carotid artery aneurysm Codman Orbit Galaxy Coil 3.5mm X 9cm Implanted:Qty: 1 on 09/12/2015 by Arik Shin MD at OR [facility] [place] Left: Head LENORA & LENORA CODMAN 12/28/2015 [id number] / [id number] / [id number] Description:COMPLEX XTRASOFT detachable coil deployed left internal carotid artery aneurysm Codman Orbit Galaxy Coil 3mm X 6cm Implanted:Qty: 1 on 09/12/2015 by Arik Shin MD at OR [facility] [place] Left: Head LENORA & LENORA CODMAN 04/28/2017 [id number] / [id number] / [id number] Description:COMPLEX XTRASOFT detachable coil deployed left internal carotid artery aneurysm Lens Intraoc 21.0 - [id number] - [id number] Implanted:Qty: 1 on 11/08/2020 by Yuri Bradley MD at OR [facility] Left: Eye BAUSCH & LOMB 06/26/2025 [id number] / [id number] / [id number] Lens Intraoc 20.5 - [id number] - [id number] Implanted:Qty: 1 on 11/22/2020 by Yuri Bradley MD at OR [facility] Right: Eye BAUSCH & LOMB 07/27/2025 [id number] / [id number] / [id number] Clip Quick 2.8mm 230cm - [id number] Implanted:Qty: 3 on 03/29/2021 by Luciana Fernandez MD at ENDOSCOPY [facility] [employer] 08/27/2023 HX-202UR. A / / Sureclip 16mm 235cm - [id number] Implanted:Qty: 2 on 05/07/2022 by Luciana Fernandez MD at ENDOSCOPY [facility] Colon MICRO TECH ENDOSCOPY 07/06/2024 [id number] / / Power Port 8fr Sngl Lumen Plas - [id number] Implanted:Qty: 1 on 01/30/2023 by Koko Santiago MD at OR [facility] N/A: Chest CR BARD : PERIPHERAL VASCULAR 07/27/2024 [id number] / / [id number] Power Port 8fr Sngl Lumen Plas - [id number] Implanted:Qty: 1 on 01/30/2023 by Koko Santiago MD at OR [facility] CR BARD : PERIPHERAL VASCULAR [id number] 07/27/2024 [id number] / / [id number] documented as of this encounter Visit Diagnoses Diagnosis Dehydration- Primary documented in this encounter Advance Directives Latest Code Status on File Code Status Date Activated Date Inactivated Comments Full Code 09/12/2015 11:01 AM 09/13/2015 2:50 PM This order reflects the patients wishes and were consensually agreed upon. Code Status History Code Status Date Activated Date Inactivated Comments Full Code 06/10/2014 10:48 AM 06/11/2014 8:37 PM This order reflects the patients wishes and were consensually agreed upon. Care Teams Box Blank Machine Operator Helper Relationship Specialty Start Date End Date Mauro Watson DO [address] [facility] [place] [address] PCP - General Family Medicine 04/13/19 documented as of this encounter
--- OUTSIDE RECORDS SUMMARY | 2024-02-19 09:34 | External Medical Summary | Summary of Care ---
Author Name Unknown Organization [facility] Address [address] [place] [address] Phone [phone] Care Team Providers Care Crime Laboratory Analyst Name Role Phone Mauro Watson DO Primary Care Provider Reason for Visit * Reason Comments Chemotherapy C7D8 Gemzar/Cisplati n * Episode Based Medications (Routine) - Closed Specialty Diagnoses / Procedures Referred By Edmund nelson Referred To Contact Diagnoses Cholangiocarcinoma (HCC) Encounter for antineoplastic chemotherapy Procedures RI CISPLATIN 10 MG INJECTION RI FOSAPREPITANT INJECTION RI IN GEMCITABINE HCL NOS 200MG RI INJ., DURVALUMAB, 10 MG Roberta La MD [address] [place] [address] Anc Hem/Onc Nandini Contreras DEPT CLOSED - 03/12/23 [address] [place] [address] Referral ID Status Reason Start Date Expiration Date Visits Re quested Visits Authorized [id number] Closed 02/25/2023 04/28/[phone] Encounter Details Date Type Department Care Team (Latest Contact Info) Description 07/29/2023 9:15 AM EDT Hem/Onc Treatment Hematology/Oncolo gy Treatment, [place] [address] [place] [address] Diane Chair 8 Hem Onc [address] [place] [address] Cholangiocarcinoma (HCC)*; Encounter for antineoplastic chemotherapy Allergies [...] EGFR 72 Lumbar radiculopathy 05/27/2019 Atherosclerosis of [place] co ronary artery of [place] heart with angina pectoris 05/05/2019 History of colon polyps 08/12/2018 ACEI/ARB contraindicated 09/21/2016 Carotid aneurysm, left 09/13/2015 Overview: S/p coil embolization Cerebral aneurysm, nonruptured 09/05/2015 AAA (abdominal aortic aneurysm) 06/20/2015 Overview: S/p repair Bilateral carotid artery disease 06/20/2015 Medical home patient encounter 05/19/2014 Hypertriglyceridemia 05/16/2012 CORON ATHEROSCL [place] CORON VESSEL 07/11/2010 Dyslipidemia, goal LDL below [...] Description 10/04/2023 8:00 AM EDT Laboratory Laboratory [facility] Radha Contreras [address] [place] [address] [place] [facility] [address] [place] [address] 10/04/2023 9:15 AM EDT Office Visit Hematology/Oncology [facility] [place] [address] [place] [phone] Lasha Christine MD [address] [place] [address] 10/04/2023 9:45 AM EDT Hem/Onc Treatment Hematology/Oncology Treatment, [place] [address] [place], [place] [id number] Diane, Chair 11 Hem Onc Scene [address] [place] [address] 10/30/2023 1:00 PM EDT Telemedicine Neurosurgery, [place] [address] [place] [address] Dashawn Haines MD [facility] [place] [address] 11/05/2023 3:25 PM EDT Office Visit Interventional Pain Center, [facility] [address] [facility] [address] Wiliam Tam DO [address] [facility] [address] 12/17/2023 10:00 AM EDT Appointment Vascular Lab [facility] [address] [place] [address] 12/17/2023 10:30 AM EDT Office Visit Vascular Surg [place] [address] [place] [address] Margarito Cabrera MD [address] [place] [address] Scheduled Procedures Name Priority Associated Diagnoses Date/Ti [...] this encounter Medical Devices Implanted Type Area Fish Protector Device Identifier Shelf Expiration Date Model / Serial / Lot Stent Main Body Gsag-51-16-Zt - [id number] Implanted:Qty: 1 on 06/10/2014 by Ronal Gallegos MD [place] [facility] [place] Aorta [employer] 04/07/2016 TFFB-24-8 2-ZT / / Graft Iliac Leg Spirlz 78j21px - [id number] Implanted:Qty: 1 on 06/10/2014 by Ronal Gallegos MD [place] [facility] [place]: Aorta [employer] 10/09/2015 [id number] / / [id number] Description: Graft Iliac Leg Spirlz 42q81lt - [id number] Implanted:Qty: 1 on 06/10/2014 by Ronal Gallegos MD [place] [facility] [place]: Femoral Artery [employer] 11/07/2016 [id number] / / [id number] Stent Polmer 29mm P3110 - [id number] Implanted:Qty: 1 on 06/10/2014 by Ronal Gallegos MD [place] [facility] N/A: Aorta JNJ : CORDIS ENDOVASCULAR 07/26/2018 P3110 / / [id number] Codman Orbit Galaxy Coil 2.5mm X 3.5cm Implanted:Qty: 1 on 09/12/2015 by Arik Shin MD [place] [facility] [place]: Head LENORA & LENORA CODMAN 02/26/2017 [id number] / [id number] / [id number] Description:COMPLEX XTRASOFT detachable coil deployed left internal carotid artery Codman Orbit Galaxy Coil 2.5mm X 2.5cm Implanted:Qty: 1 on 09/12/2015 by Arik Shin MD [place] [facility] [place]: Head LENORA & LENORA CODMAN 01/27/2016 [id number] / [id number] / [id number] Description:COMPLEX XTRASOFT detachable coil deployed left internal carotid artery aneurysm Codman [place] 2 Stent 4mm X 30mm Implanted:Qty: 1 on 09/12/2015 by Arik Shin MD at [place] [facility] Left: Head LENORA & LENORA DEPUY 03/26/2018 [id number] / [id number] / [id number] Description:Vascular reconst ruction device deployed in left internal carotid artery Codman Orbit Galaxy Coil 6mm X 20cm Implanted:Qty: 1 on 09/12/2015 by Arik Shin MD [place] [facility] Left: Head LENORA [employer] LENORA CODMAN 09/26/2016 [id number] / [id number] / [id number] Description:COMPLEX FILL det achable coil deployed left internal carotid artery aneurysm Codman Orbit Galaxy Coil 4mm X 10cm Implanted:Qty: 1 on 09/12/2015 by Arik Shin MD at [place] [facility] Left: Head LENORA & LENORA CODMAN 10/27/2015 [id number] 0 / [id number] / [id number] Description:COMPLEX XTRASOFT detachable coil deployed left internal carotid artery aneurysm Codman Orbit Galaxy Coil 3.5mm X 9cm Implanted:Qty: 1 on 09/12/2015 by Arik Shin MD [place] [facility] Left: Head LENORA & LENORA CODMAN 12/28/2015 [id number] / [id number] / [id number] Description:COMPLEX XTRASOFT detachable coil deployed left internal carotid artery aneurysm Codman Orbit Galaxy Coil 3mm X 6cm Implanted:Qty: 1 on 09/12/2015 by Arik Shin MD [place] [facility] Left: Head LENORA & LENORA CODMAN 04/28/2017 [id number] / [id number] / [id number] Description:COMPLEX XTRASOFT detachable coil deployed left internal carotid artery aneurysm Lens Intraoc 21.0 - [id number] - [id number] Implanted:Qty: 1 on 11/08/2020 by Yuri Bradley MD at OR [facility] Left: Eye BAUSCH & LOMB 06/26/2025 [id number] / [id number] / [id number] Lens Intraoc 20.5 - [id number] - [id number] Implanted:Qty: 1 on 11/22/2020 by Yuri Bradley MD at OR [facility] Right: Eye BAUSCH & LOMB 07/27/2025 [id number] / [id number] / [id number] Clip Quick 2.8mm 230cm - [id number] Implanted:Qty: 3 on 03/29/2021 by Luciana Fernandez MD at ENDOSCOPY [facility] [employer] 08/27/2023 HX-202UR. A / / Sureclip 16mm 235cm - [id number] Implanted:Qty: 2 on 05/07/2022 by Luciana Fernandez MD at ENDOSCOPY [facility] Colon MICRO TECH ENDOSCOPY 07/06/2024 [id number] / / Power Port 8fr Sngl Lumen Plas - [id number] Implanted:Qty: 1 on 01/30/2023 by Koko Santiago MD at OR [facility] N/A: Chest CR BARD : PERIPHERAL VASCULAR 07/27/2024 [id number] / / [id number] Power Port 8fr Sngl Lumen Plas - [id number] Implanted:Qty: 1 on 01/30/2023 by Koko Santiago MD at OR [facility] CR BARD : PERIPHERAL VASCULAR [id number] 07/27/2024 [id number] / / [id number] documented as of this encounter Visit Diagnoses [...] and were consensually agreed upon. Care Teams Crime Laboratory Analyst Relationship Specialty Start Date End Date Mauro Watson DO [address] [place] [address] PCP - General Family Medicine 04/13/19 documented as of this encounter
--- OUTSIDE RECORDS SUMMARY | 2024-02-19 09:34 | External Medical Summary | Summary of Care ---
Author Name Unknown Organization [facility] Address [address] [place] [address] Phone [phone] Care Team Providers Care Test Worker Name Role Phone Mauro Watson DO Primary Care Provider Reason for Visit * Reason Onset Date Comments Information 09/13/2023 Encounter Details Date Type Department Care Team ([facility] st Contact Info) Description 09/13/2023 Telephone Hematology/Oncology Treatment, [place] [address] [place] [address] Lasha Christine MD [address] [place] [address] Information Allergies Active Allergy Reactions Criticality Noted Date [...] EGFR 72 Lumbar radiculopathy 05/27/2019 Atherosclerosis of [place] co ronary artery of [place] heart with angina pectoris 05/05/2019 History of colon polyps 08/12/2018 ACEI/ARB contraindicated 09/21/2016 Carotid aneurysm, left 09/13/2015 Overview: S/p coil embolization Cerebral aneurysm, nonruptured 09/05/2015 AAA (abdominal aortic aneurysm) 06/20/2015 Overview: S/p repair Bilateral carotid artery disease 06/20/2015 Medical home patient encounter 05/19/2014 Hypertriglyceridemia 05/16/2012 CORON ATHEROSCL [place] CORON VESSEL 07/11/2010 Dyslipidemia, goal LDL below [...] Telephone Encounter - Lorri Matias RN - 09/13/2023 10:04 AM EDT Patient requesting hydration with treatment today, states that this was discussed at office visit yesterday and he does want to do it. Dr Christine: please place order for 1L NSS over 2 hours. Thanks! documented in this encounter Plan of Treatment Upcoming Encounters Date Type Department Care Team (Late st Contact Info) Description 10/04/2023 7:30 AM EDT Laboratory Laboratory [facility] [address] [place] [address] [facility] [address] [place] [address] 10/30/2023 1:00 PM EDT Telemedicine Neurosurgery, [place] [address] [place] [address] Dashawn Haines MD [address] [place] [address] 11/05/2023 3:25 PM EDT Office Visit Interventional Pain Center, [facility] [address] [place] [address] Wiliam Tam DO [address] [place] [phone] 12/17/2023 10:00 AM EDT Appointment Vascular Lab [place] [address] [place] [address] 12/17/2023 10:30 AM EDT Office Visit Vascular Surg [place] [address] [place] [address] Margarito Cabrera MD [address] [place] [address] Scheduled Procedures Name Priority Associated Diagnoses Date/Ti [...] this encounter Medical Devices Implanted Type Area Benefits Counselor Device Identifier Shelf Expiration Date Model / Serial / Lot Stent Main Body Uagm-50-95-Zt - [id number] Implanted:Qty: 1 on 06/10/2014 by Ronal Gallegos MD at [place] [facility] [place] Aorta [employer] 04/07/2016 TFFB-24-8 2-ZT / / Graft Iliac Leg Spirlz 68o12nd - [id number] Implanted:Qty: 1 on 06/10/2014 by Ronal Gallegos MD at OR [facility] [place] Right: Aorta [employer] 10/09/2015 [id number] / / [id number] Description: Graft Iliac Leg Spirlz 76h35fd - [id number] Implanted:Qty: 1 on 06/10/2014 by Ronal Gallegos MD at OR [facility] [place] Right: Femoral Artery [employer] 11/07/2016 [id number] / / [id number] Stent Polmer 29mm P3110 - [id number] Implanted:Qty: 1 on 06/10/2014 by Ronal Gallegos MD at OR [facility] [place] N/A: Aorta JNJ : CORDIS ENDOVASCULAR 07/26/2018 P3110 / / [id number] Codman Orbit Galaxy Coil 2.5mm X 3.5cm Implanted:Qty: 1 on 09/12/2015 by Arik Shin MD at OR [facility] [place] Left: Head LENORA & LENORA CODMAN 02/26/2017 [id number] / [id number] / [id number] Description:COMPLEX XTRASOFT detachable coil deployed left internal carotid artery Codman Orbit Galaxy Coil 2.5mm X 2.5cm Implanted:Qty: 1 on 09/12/2015 by Arik Shin MD at OR [facility] [place] Left: Head LENORA & LENORA CODMAN 01/27/2016 [id number] / [id number] / [id number] Description:COMPLEX XTRASOFT detachable coil deployed left internal carotid artery aneurysm Codman [place] 2 Stent 4mm X 30mm Implanted:Qty: 1 on 09/12/2015 by Arik Shin MD at OR [facility] [place] Left: Head LENORA & LENORA DEPUY 03/26/2018 [id number] / [id number] / [id number] Description:Vascular reconst ruction device deployed in left internal carotid artery Codman Orbit Galaxy Coil 6mm X 20cm Implanted:Qty: 1 on 09/12/2015 by Arik Shin MD at OR [facility] [place] Left: Head LENORA & LENORA CODMAN 09/26/2016 [id number] / [id number] / [id number] Description:COMPLEX FILL det achable coil deployed left internal carotid artery aneurysm Codman Orbit Galaxy Coil 4mm X 10cm Implanted:Qty: 1 on 09/12/2015 by Arik Shin MD at OR [facility] [place] Left: Head LENORA & LENORA CODMAN 10/27/2015 [id number] 0 / [id number] / [id number] Description:COMPLEX XTRASOFT detachable coil deployed left internal carotid artery aneurysm Codman Orbit Galaxy Coil 3.5mm X 9cm Implanted:Qty: 1 on 09/12/2015 by Arik Shin MD at OR [facility] [place] Left: Head LENORA & LENORA CODMAN 12/28/2015 [id number] / [id number] / [id number] Description:COMPLEX XTRASOFT detachable coil deployed left internal carotid artery aneurysm Codman Orbit Galaxy Coil 3mm X 6cm Implanted:Qty: 1 on 09/12/2015 by Arik Shin MD at OR [facility] [place] Left: Head LENORA & LENORA CODMAN 04/28/2017 [id number] / [id number] / [id number] Description:COMPLEX XTRASOFT detachable coil deployed left internal carotid artery aneurysm Lens Intraoc 21.0 - [id number] - [id number] Implanted:Qty: 1 on 11/08/2020 by Yuri Bradley MD at OR [facility] Left: Eye BAUSCH & LOMB 06/26/2025 [id number] / [id number] / [id number] Lens Intraoc 20.5 - [id number] - [id number] Implanted:Qty: 1 on 11/22/2020 by Yuri Bradley MD at OR [facility] Right: Eye BAUSCH & LOMB 07/27/2025 [id number] / [id number] Clip Quick 2.8mm 230cm - [id number] Implanted:Qty: 3 on 03/29/2021 by Luciana Fernandez MD at ENDOSCOPY [facility] [employer] 08/27/2023 HX-202UR. A / / Sureclip 16mm 235cm - [id number] Implanted:Qty: 2 on 05/07/2022 by Luciana Fernandez MD at ENDOSCOPY [facility] Colon MICRO TECH ENDOSCOPY 07/06/2024 [id number] / / Power Port 8fr Sngl Lumen Plas - [id number] Implanted:Qty: 1 on 01/30/2023 by Koko Santiago MD at OR [facility] N/A: Chest CR BARD : PERIPHERAL VASCULAR 07/27/2024 [id number] / / [id number] Power Port 8fr Sngl Lumen Plas - [id number] Implanted:Qty: 1 on 01/30/2023 by Koko Santiago MD at OR [facility] CR BARD : PERIPHERAL VASCULAR [id number] 07/27/2024 [id number] / / [id number] documented as of this encounter Advance Directives Latest Code Status [...] and were consensually agreed upon. Care Teams Test Worker Relationship Specialty Start Date End Date Mauro Watson DO [address] [place] [address] PCP - General Family Medicine 04/13/19 documented as of this encounter
--- OUTSIDE RECORDS SUMMARY | 2024-02-19 09:34 | External Medical Summary | Summary of Care ---
Author Name Unknown Organization [facility] Address [address] [place] [address] Phone [phone] Care Team Providers Care Occupational Therapist Aide Name Role Phone Mauro Watson DO Primary Care Provider Reason for Visit * Reason Onset Date Comments Information 09/13/2023 Encounter Details Date Type Department Care Team ([facility] st Contact Info) Description 09/13/2023 Telephone Hematology/Oncology Treatment, [place] [address] [place] [address] Lasha Christine MD [address] [place] [address] Information Allergies Active Allergy Reactions Criticality Noted [...] EGFR 72 Lumbar radiculopathy 05/27/2019 Atherosclerosis of [place] co ronary artery of [place] heart with angina pectoris 05/05/2019 History of colon polyps 08/12/2018 ACEI/ARB contraindicated 09/21/2016 Carotid aneurysm, left 09/13/2015 Overview: S/p coil embolization Cerebral aneurysm, nonruptured 09/05/2015 AAA (abdominal aortic aneurysm) 06/20/2015 Overview: S/p repair Bilateral carotid artery disease 06/20/2015 Medical home patient encounter 05/19/2014 Hypertriglyceridemia 05/16/2012 CORON ATHEROSCL AUGUSTINE CORON VESSEL 07/11/2010 Dyslipidemia, goal LDL below [...] Description 10/30/2023 1:00 PM EDT Telemedicine Neurosurgery, [address] [address] Dashawn Haines MD [address] [place] [address] 11/05/2023 3:25 PM EDT Office Visit Interventional Pain Center, [facility] [address] [place] [address] Wiliam Tam DO [address] [place] [phone] 12/17/2023 10:00 AM EDT Appointment Vascular Lab [facility], [address] [address] 12/17/2023 10:30 AM EDT Office Visit Vascular Surg [facility], [address] [address] Margarito Cabrera MD [address] [place] [address] Scheduled Procedures Name Priority Associated Diagnoses Date/Ti [...] this encounter Medical Devices Implanted Type Area Platform Builder Device Identifier Shelf Expiration Date Model / Serial / Lot Stent Main Body Ysma-37-11-Zt - [id number] Implanted:Qty: 1 on 06/10/2014 by Ronal Gallegos MD at OR [facility] [place] [place] Aorta [employer]OOK GROUP 04/07/2016 TFFB-24-8 2-ZT / / Graft Iliac Leg Spirlz 59p01kp - [id number] Implanted:Qty: 1 on 06/10/2014 by Ronal Gallegos MD at OR [facility] [place] [place] Right: Aorta [employer] GROUP 10/09/2015 [id number] / / [id number] Description: Graft Iliac Leg Spirlz 61b59jx - [id number] Implanted:Qty: 1 on 06/10/2014 by Ronal Gallegos MD at OR [facility] [place] [place] Right: Femoral Artery [employer] 11/07/2016 [id number] / / [id number] Stent Polmer 29mm P3110 - [id number] Implanted:Qty: 1 on 06/10/2014 by Ronal Gallegos MD at OR [facility] [place] [place] N/A: Aorta JNJ : CORDIS ENDOVASCULAR 07/26/2018 P3110 / / [id number] Codman Orbit Galaxy Coil 2.5mm X 3.5cm Implanted:Qty: 1 on 09/12/2015 by Arik Shin MD at OR [facility] [place] [place] Left: Head LENORA & LENORA CODMAN 02/26/2017 [id number] / [id number] / [id number] Description:COMPLEX XTRASOFT detachable coil deployed left internal carotid artery Codman Orbit Galaxy Coil 2.5mm X 2.5cm Implanted:Qty: 1 on 09/12/2015 by Arik Shin MD at OR [facility] [place] [place] Left: Head LENORA & LENORA CODMAN 01/27/2016 [id number] / [id number] / [id number] Description:COMPLEX XTRASOFT detachable coil deployed left internal carotid artery aneurysm Codman [place] 2 Stent 4mm X 30mm Implanted:Qty: 1 on 09/12/2015 by Arik Shin MD at OR [facility] [place] [place] Left: Head LENORA & LENORA DEPUY 03/26/2018 [id number] / [id number] / [id number] Description:Vascular reconst ruction device deployed in left internal carotid artery Codman Orbit Galaxy Coil 6mm X 20cm Implanted:Qty: 1 on 09/12/2015 by Arik Shin MD at OR [facility] [place] [place] Left: Head LENORA & LENORA CODMAN 09/26/2016 [id number] / [id number] / [id number] Description:COMPLEX FILL det achable coil deployed left internal carotid artery aneurysm Codman Orbit Galaxy Coil 4mm X 10cm Implanted:Qty: 1 on 09/12/2015 by Arik Shin MD at OR [facility] [place] [place] Left: Head LENORA & LENORA CODMAN 10/27/2015 [id number] 0 / [id number] / [id number] Description:COMPLEX XTRASOFT detachable coil deployed left internal carotid artery aneurysm Codman Orbit Galaxy Coil 3.5mm X 9cm Implanted:Qty: 1 on 09/12/2015 by Arik Shin MD at OR [facility] [place] [place] Left: Head LENORA & LENORA CODMAN 12/28/2015 [id number] / [id number] / [id number] Description:COMPLEX XTRASOFT detachable coil deployed left internal carotid artery aneurysm Codman Orbit Galaxy Coil 3mm X 6cm Implanted:Qty: 1 on 09/12/2015 by Arik Shin MD at OR [facility] [place] [place] Left: Head LENORA & LENORA CODMAN 04/28/2017 [id number] / [id number] / [id number] Description:COMPLEX XTRASOFT detachable coil deployed left internal carotid artery aneurysm Lens Intraoc 21.0 - [id number] - [id number] Implanted:Qty: 1 on 11/08/2020 by Yuri Bradley MD at OR [facility] Left: Eye BAUSCH & LOMB 06/26/2025 [id number] / [id number] / [id number] Lens Intraoc 20.5 - [id number] - [id number] Implanted:Qty: 1 on 11/22/2020 by Yuri Bradley MD at OR [facility] Right: Eye BAUSCH & LOMB 07/27/2025 [id number] / [id number] / [id number] Clip Quick 2.8mm 230cm - [id number] Implanted:Qty: 3 on 03/29/2021 by Luciana Fernandez MD at ENDOSCOPY [facility] [employer] 08/27/2023 HX-202UR. A / / Sureclip 16mm 235cm - [id number] Implanted:Qty: 2 on 05/07/2022 by Luciana Fernandez MD at ENDOSCOPY [facility] Colon MICRO TECH ENDOSCOPY 07/06/2024 [id number] / / Power Port 8fr Sngl Lumen Plas - [id number] Implanted:Qty: 1 on 01/30/2023 by Koko Santiago MD at OR [facility] N/A: Chest CR BARD : PERIPHERAL VASCULAR 07/27/2024 [id number] / / [id number] Power Port 8fr Sngl Lumen Plas - [id number] Implanted:Qty: 1 on 01/30/2023 by Koko Santiago MD at OR [facility] CR BARD : PERIPHERAL VASCULAR [id number] 07/27/2024 [id number] / / [id number] documented as of this encounter Advance Directives [...] and were consensually agreed upon. Care Teams Occupational Therapist Aide Relationship Specialty Start Date End Date Mauro Watson DO [address] [place] [address] PCP - General Family Medicine 04/13/19 documented as of this encounter
--- OUTSIDE RECORDS SUMMARY | 2024-02-19 09:34 | External Medical Summary | Summary of Care ---
Author Name Unknown Organization [facility] Address [address] [place] [address] Phone [phone] Care Team Providers Care Ibm Bpm Developer Name Role Phone Mauro Watson DO Primary Care Provider Reason for Visit * Reason Onset Date Comments Information 09/13/2023 Encounter Details Date Type Department Care Team ([facility] st Contact Info) Description 09/13/2023 Telephone Hematology/Oncology Treatment, [place] [address] [place] [address] Lasha Christine MD [address] [place] [address] Information Allergies Active Allergy Reactions Criticality Noted [...] 72 Lumbar radiculopathy 05/27/2019 Atherosclerosis of [place] co ronary artery of [place] heart with angina pectoris 05/05/2019 History of colon polyps 08/12/2018 ACEI/ARB contraindicated 09/21/2016 Carotid aneurysm, left 09/13/2015 Overview: S/p coil embolization Cerebral aneurysm, nonruptured 09/05/2015 AAA (abdominal aortic aneurysm) 06/20/2015 Overview: S/p repair Bilateral carotid artery disease 06/20/2015 Medical home patient encounter 05/19/2014 Hypertriglyceridemia 05/16/2012 CORON ATHEROSCL [place] CORON VESSEL 07/11/2010 Dyslipidemia, goal LDL below [...] Encounter - Lorri Matias RN - 09/13/2023 11:28 AM EDT Enriqueta placed order. * Telephone Encounter - Lorri Matias RN [...] Description 10/04/2023 8:00 AM EDT Laboratory Laboratory [facility] [place] [address] [place] [phone] Zeyad Contreras [place] [address] [place] [place] [address] 10/04/2023 9:15 AM EDT Office Visit Hematology/Oncology [facility] Diane [place] [address] [place] [phone] Lasha Christine MD [address] [facility] [place] [address] 10/04/2023 9:45 AM EDT [facility] [address] [place] [address] Diane, Chair 11 Hem Onc Scenery [address] [place] [address] 10/30/2023 1:00 PM EDT Telemedicine Neurosurgery, [place] [address] [place] [address] Dashawn Haines MD [address] [place] [address] 11/05/2023 3:25 PM EDT Office Visit Interventional Pain Center, [facility] [address] [place] [address] Wiliam Tam DO [address] [place] [address] 12/17/2023 10:00 AM EDT Appointment Vascular Lab [place] [address] [place] [address] 12/17/2023 10:30 AM EDT Office Visit Vascular Surg [facility] [address] [place] [address] Margarito Cabrera MD [address] [place] [address] Scheduled Procedures Name Priority Associated Diagnoses Date/Ti [...] this encounter Medical Devices Implanted Type Area Hospital Personnel Director Device Identifier Shelf Expiration Date Model / Serial / Lot Stent Main Body Vnbl-76-68-Zt - [id number] Implanted:Qty: 1 on 06/10/2014 by Ronal Gallegos MD [place] [facility] [place] Aorta [employer] 04/07/2016 TFFB-24-8 2-ZT / / Graft Iliac Leg Spirlz 60n88mf - [id number] Implanted:Qty: 1 on 06/10/2014 by Ronal Gallegos MD [place] [facility] [place] Right: Aorta [employer] 10/09/2015 [id number] / / [id number] Description: Graft Iliac Leg Spirlz 46x87eq - [id number] Implanted:Qty: 1 on 06/10/2014 by Ronal Gallegos MD [place] [facility] [place] Right: Femoral Artery [employer] 11/07/2016 [id number] / / [id number] Stent Polmer 29mm P3110 - [id number] Implanted:Qty: 1 on 06/10/2014 by Ronal Gallegos MD at [place] [facility] [place] N/A: Aorta JNJ : CORDIS ENDOVASCULAR 07/26/2018 P3110 / / [id number] Codman Orbit Galaxy Coil 2.5mm X 3.5cm Implanted:Qty: 1 on 09/12/2015 by Arik Shin MD at [place] [facility] [place] Left: Head LENORA & LENORA [facility] 02/26/2017 [id number] / [id number] / [id number] Description:COMPLEX XTRASOFT detachable coil deployed left internal carotid artery Codman Orbit Galaxy Coil 2.5mm X 2.5cm Implanted:Qty: 1 on 09/12/2015 by Arik Shin MD at [place] [facility] [place] Left: Head LENORA & LENORA [facility] 01/27/2016 [id number] / [id number] / [id number] Description:COMPLEX XTRASOFT detachable coil deployed left internal carotid artery aneurysm Codman [place] 2 Stent 4mm X 30mm Implanted:Qty: 1 on 09/12/2015 by Arik Shin MD at [place] [facility] [place] Left: Head LENORA & LENORA DEPUY 03/26/2018 [id number] / [id number] / [id number] Description:Vascular reconst ruction device deployed in left internal carotid artery Codman Orbit Galaxy Coil 6mm X 20cm Implanted:Qty: 1 on 09/12/2015 by Arik Shin MD at [place] [facility] [place] Left: Head LENORA & LENORA [facility] 09/26/2016 [id number] / [id number] / [id number] Description:COMPLEX FILL det achable coil deployed left internal carotid artery aneurysm Codman Orbit Galaxy Coil 4mm X 10cm Implanted:Qty: 1 on 09/12/2015 by Arik Shin MD at [place] [facility] [place] Left: Head LENORA & LENORA [facility] 10/27/2015 [id number] 0 / [id number] / [id number] Description:COMPLEX XTRASOFT detachable coil deployed left internal carotid artery aneurysm Codman Orbit Galaxy Coil 3.5mm X 9cm Implanted:Qty: 1 on 09/12/2015 by Arik Shin MD at [place] [facility] [place] Left: Head LENORA & LENORA CODMAN 12/28/2015 [id number] / [id number] / [id number] Description:COMPLEX XTRASOFT detachable coil deployed left internal carotid artery aneurysm Codman Orbit Galaxy Coil 3mm X 6cm Implanted:Qty: 1 on 09/12/2015 by Arik Shin MD at [place] [facility] [place] Left: Head LENORA & LENORA CODMAN 04/28/2017 [id number] / [id number] / [id number] Description:COMPLEX XTRASOFT detachable coil deployed left internal carotid artery aneurysm Lens Intraoc 21.0 - [id number] - [id number] Implanted:Qty: 1 on 11/08/2020 by Yuri Bradley MD at OR [facility] Left: Eye BAUSCH & LOMB 06/26/2025 IZ43DQ928 / [id number] / [id number] Lens Intraoc 20.5 - [id number] - [id number] Implanted:Qty: 1 on 11/22/2020 by Yuri Bradley MD at OR [facility] Right: Eye BAUSCH & LOMB 07/27/2025 [id number] / [id number] / [id number] Clip Quick 2.8mm 230cm - [id number] Implanted:Qty: 3 on 03/29/2021 by Luciana Fernandez MD at ENDOSCOPY [facility] Owned it [employer] 08/27/2023 HX-202UR. A / / Sureclip 16mm 235cm - [id number] Implanted:Qty: 2 on 05/07/2022 by Luciana Fernandez MD at ENDOSCOPY [facility] Colon MICRO TECH ENDOSCOPY 07/06/2024 [id number] / / Power Port 8fr Sngl Lumen Plas - [id number] Implanted:Qty: 1 on 01/30/2023 by Koko Santiago MD at OR [facility] N/A: Chest CR BARD : PERIPHERAL VASCULAR 07/27/2024 [id number] / / [id number] Power Port 8fr Sngl Lumen Plas - [id number] Implanted:Qty: 1 on 01/30/2023 by Koko Santiago MD at OR [facility] BARD : PERIPHERAL VASCULAR [id number] 07/27/2024 [id number] / / [id number] documented as of this encounter Advance Directives [...] and were consensually agreed upon. Care Teams Ibm Bpm Developer Relationship Specialty Start Date End Date Mauro Watson DO [address] [place] [address] PCP - General Family Medicine 04/13/19 documented as of this encounter
--- OUTSIDE RECORDS SUMMARY | 2024-02-19 09:34 | External Medical Summary | Summary of Care ---
Author Name Unknown Organization [facility] Address [address] [place] [address] Phone [phone] Care Team Providers Care Integrated Marketing Intern Name Role Phone Mauro Watson DO Primary [...] 10 MG Roberta La MD [address] [place] [address] Anc Hem/Onc Nandini Contreras DEPT CLOSED - 03/12/23 [address] [place] [address] Referral ID Status Reason Start Date Expiration Date Visits Re quested Visits Authorized [id number] Closed 02/25/2023 04/28/[phone] Encounter Details Date Type Department Care Team (Latest Contact Info) Description 07/29/2023 9:15 AM EDT Hem/Onc Treatment Hematology/Oncolo gy Treatment, [place] [address] [place] [address] Diane Chair 8 Hem Onc Scenery [address] [place] [address] Cholangiocarcinoma (HCC)*; Encounter for antineoplastic chemotherapy Allergies [...] patient encounter 05/19/2014 Hypertriglyceridemia 05/16/2012 CORON ATHEROSCL [place] BAND CORON VESSEL 07/11/2010 Dyslipidemia, goal LDL below [...] Description 10/04/2023 8:00 AM EDT Laboratory Laboratory [facility] Radha Contreras [address] [place] [phone] [place] [facility] [address] [place] [address] 10/04/2023 9:15 AM EDT Office Visit Hematology/Oncology [facility] Diane [place] [address] [place] [phone] Lasha Christine MD [address] [place] [address] 10/04/2023 9:45 AM EDT Hem/Onc Treatment Hematology/Oncology Treatment, [place] [address] [place], [place] [phone] Diane, Chair 11 Hem Onc [place] [address] [place] [address] 10/30/2023 1:00 PM EDT Telemedicine Neurosurgery, [place] [address] [place] [address] Dashawn Haines MD [facility] [place] [address] 11/05/2023 3:25 PM EDT Office Visit Interventional Pain Center, [facility] [address] [facility] [place] [address] Wiliam Tam DO [address] [facility] [address] 12/17/2023 10:00 AM EDT Appointment Vascular Lab [facility] [address] [place] [address] 12/17/2023 10:30 AM EDT Office Visit Vascular Surg [place] [address] [place] [address] Margarito Cabrera MD [address] [place] [address] Scheduled Procedures Name Priority Associated Diagnoses Date/Ti [...] this encounter Medical Devices Implanted Type Area Capsule Filler Device Identifier Shelf Expiration Date Model / Serial / Lot Stent Main Body Kpuh-09-26-Zt - [id number] Implanted:Qty: 1 on 06/10/2014 by Ronal Gallegos MD [place] [facility] [place] Aorta [employer] 04/07/2016 TFFB-24-8 2-ZT / / Graft Iliac Leg Spirlz 83f24yc - [id number] Implanted:Qty: 1 on 06/10/2014 by Ronal Gallegos MD [place] [facility] [place] Right: Aorta [employer] 10/09/2015 [id number] / / [id number] Description: Graft Iliac Leg Spirlz 51p87hp - [id number] Implanted:Qty: 1 on 06/10/2014 by Ronal Gallegos MD [place] [facility] [place] Right: Femoral Artery [employer] 11/07/2016 I43414 / / [id number] Stent Polmer 29mm P3110 - [id number] Implanted:Qty: 1 on 06/10/2014 by Ronal Gallegos MD at [place] [facility] [place] N/A: Aorta JNJ : CORDIS ENDOVASCULAR 07/26/2018 P3110 / / [id number] Codman Orbit Galaxy Coil 2.5mm X 3.5cm Implanted:Qty: 1 on 09/12/2015 by Arik Shin MD at [place] [facility] [place] Left: Head LENORA & LENORA CODMAN 02/26/2017 [id number] / [id number] / [id number] Description:COMPLEX XTRASOFT detachable coil deployed left internal carotid artery Codman Orbit Galaxy Coil 2.5mm X 2.5cm Implanted:Qty: 1 on 09/12/2015 by Arik Shin MD at [place] [facility] [place] Left: Head LENORA & LENORA CODMAN 01/27/2016 [id number] / [id number] / [id number] Description:COMPLEX XTRASOFT detachable coil deployed left internal carotid artery aneurysm Codman [place] 2 Stent 4mm X 30mm Implanted:Qty: 1 on 09/12/2015 by Arik Shin MD at [place] [facility] [place] Left: Head LENORA & LENORA DEPUY 03/26/2018 [id number] / [id number] / [id number] Description:Vascular reconst ruction device deployed in left internal carotid artery Codman Orbit Galaxy Coil 6mm X 20cm Implanted:Qty: 1 on 09/12/2015 by Arik Shin MD at [place] [facility] [place] Left: Head LENORA & LENORA CODMAN 09/26/2016 [id number] / [id number] / [id number] Description:COMPLEX FILL det achable coil deployed left internal carotid artery aneurysm Codman Orbit Galaxy Coil 4mm X 10cm Implanted:Qty: 1 on 09/12/2015 by Arik Shin MD at [place] [facility] [place] Left: Head LENORA & LENORA CODMAN 10/27/2015 [id number] 0 / [id number] / [id number] Description:COMPLEX XTRASOFT detachable coil deployed left internal carotid artery aneurysm Codman Orbit Galaxy Coil 3.5mm X 9cm Implanted:Qty: 1 on 09/12/2015 by Arik Shin MD at [place] [facility] [place] Left: Head LENORA & LENORA CODMAN 12/28/2015 [id number] / [id number] / [id number] Description:COMPLEX XTRASOFT detachable coil deployed left internal carotid artery aneurysm Codman Orbit Galaxy Coil 3mm X 6cm Implanted:Qty: 1 on 09/12/2015 by Arik Shin MD at [place] [facility] [place] Left: Head LENORA & LENORA CODMAN 04/28/2017 [id number] / [id number] / [id number] Description:COMPLEX XTRASOFT detachable coil deployed left internal carotid artery aneurysm Lens Intraoc 21.0 - [id number] - [id number] Implanted:Qty: 1 on 11/08/2020 by Yuri Bradley MD at [place] [facility] Left: Eye BAUSCH & LOMB 06/26/2025 [id number] / [id number] / [id number] Lens Intraoc 20.5 - [id number] - [id number] Implanted:Qty: 1 on 11/22/2020 by Yuri Bradley MD at OR [facility] Right: Eye BAUSCH & LOMB 07/27/2025 [id number] / [id number] / [id number] Clip Quick 2.8mm 230cm - [id number] Implanted:Qty: 3 on 03/29/2021 by Luciana Fernandez MD at ENDOSCOPY [facility] [employer] 08/27/2023 HX-202UR. A / / Sureclip 16mm 235cm - [id number] Implanted:Qty: 2 on 05/07/2022 by Luciana Fernandez MD at ENDOSCOPY [facility] Colon MICRO TECH ENDOSCOPY 07/06/2024 [id number] / / Power Port 8fr Sngl Lumen Plas - [id number] Implanted:Qty: 1 on 01/30/2023 by Koko Santiago MD at OR [facility] N/A: Chest CR BARD : PERIPHERAL VASCULAR 07/27/2024 [id number] / / [id number] Power Port 8fr Sngl Lumen Plas - [id number] Implanted:Qty: 1 on 01/30/2023 by Koko Santiago MD at OR [facility] CR BARD : PERIPHERAL VASCULAR [id number] 07/27/2024 [id number] / / [id number] documented as of this encounter Visit Diagnoses [...] and were consensually agreed upon. Care Teams Integrated Marketing Intern Relationship Specialty Start Date End Date Mauro Watson DO [address] [address] PCP - General Family Medicine 04/13/19 documented as of this encounter
--- OUTSIDE RECORDS SUMMARY | 2024-02-19 09:34 | External Medical Summary | Summary of Care ---
Author Name Unknown Organization [facility] Address [address] [place] [address] Phone [phone] Care Team Providers Care Date Pitter Name Role Phone Mauro Watson DO Primary Care Provider Reason for Visit * Reason Comments Chemotherapy Alimta and carboplat in. * Episode Based Medications (Routine) - Authorized Specialty Diagnoses / Procedures Referred By Edmund nelson Referred To Contact Diagnoses Encounter for antineoplastic chemotherapy 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) Malignant neoplasm of left lung, unspecified part of lung (HCC) Procedures MA INJ. PEMETREXED NOS 10MG MA CARBOPLATIN INJECTION MA FOSAPREPITANT INJECTION Lasha Christine MD [address] [facility] [place] [address] Anc Hem/Onc [address] [phone] Referral ID Status Reason Start Date Expiration Date V isits Requested Visits Authorized [id number] Authorized 08/22/2023 04/28/2099 999 99 Encounter Details Date Type Department Care Team (Latest Contact Info) Description 09/13/2023 9:30 AM EDT Hem/Onc Treatment Hematology/Oncolog y Treatment, [address] [phone] Diane, Chair 5 Hem Onc [address] [place] [address] Encounter for antineoplastic chemotherapy*; Metastatic carcinoma involving [...] EGFR 72 Lumbar radiculopathy 05/27/2019 Atherosclerosis of [place] co ronary artery of [place] heart with angina pectoris 05/05/2019 History of [...] to under 1 ppd Mixed dyslipidemia 07/14/1998 12/10/200 9 Overview: Per Lipid Taxonomy. Malaise and [...] Sign Reading Time Taken Comments Blood Pressure 136/85 09/13/2023 9:35 AM EDT Pulse 87 09/13/2023 9:35 AM EDT Temperature 36.5 C (97.7 F) 09/13/2023 9:35 AM ED T Respiratory Rate 18 09/13/2023 9:35 AM EDT Oxygen Saturation 97% 09/13/2023 9:35 AM EDT Inhaled Oxygen Concentration - - Weight 72.2 kg (159 lb 3.2 oz) 09/13/2023 9:35 A M EDT Height - - Body Mass Index 24.21 06/06/2023 12:13 PM EST documented in this [...] of this encounter Nursing Notes * Angela Li, VENTURA - 09/13/2023 12:14 PM EDT Goals: Patient will remain free from injury. Possible barriers to meeting goals: Fall risk d/t ambulation with IV pole. Stability of the patient: Moderately stable - low risk of patient condition declining or worsening Summary regarding today's goals: Met: Patient remained free of injury. Patient tolerated infusoin well. Discharged in stable condition. * Angela Li RN - 09/13/2023 10:15 AM EDT Chair 12. Patient arrived for alimta and carboplatin. Patient was seen by Enriqueta Souza yesterday (see office notes), per Enriqueta candelaria to treat today. Patient also asked if he could have some hydration today, he feels that he is a little dehydrated. Spoke with Dr. Christine and bari for hydration on top of treatment today. VAD accessed. Chemotherapy/Immunotherapy agents: ALIMTA and CARBOPLATIN Consent for chemotherapy drug treatment complete, dated, and signed? yes, date - 08/22/23 Treatment lab parameters met? Yes Has treatment weight changed > than 10%? No Treatment preauthorized? Yes VITALS Filed Vitals: 09/13/23 0935 BP: 136/85 Pulse: 87 Resp: 18 Temp: 36.5 C (97.7 F) TempSrc: Tympanic SpO2: 97% Weight: 72.2 kg (159 lb 3.2 oz) Urine protein: N/A Patient [...] side effects during treatment. PRE-TREATMENT ASSESSMENT: NEURO: numbness or tingling: patient still has some from previous treatment and fatigue:yes CV/RESP: denies symptoms GI/: denies symptoms OTHER: denies any additional symptoms PAIN: 0 Safety and Risk for Injury Patient will remain free from injury. Ensure appropriate safety devices are available. Provide and maintain safe environment. documented in this encounter Plan of Treatment Upcoming Encounters Date Type Department Care Team (Late st Contact Info) Description 10/04/2023 8:00 AM EDT Laboratory Laboratory [facility] [address] [place] [phone] [place], Lab [facility] [address] [facility] [place] [address] 10/04/2023 9:15 AM EDT Office Visit Hematology/Oncology [facility] [address] [facility] [place] [phone] Lasha Christine MD [address] [place] [address] 10/04/2023 9:45 AM EDT Hem/Onc Treatment Hematology/Oncology Treatment, [place] [address] [place] [phone] Diane, Chair 11 Hem Onc [address] [place] [address] 10/30/2023 1:00 PM EDT Telemedicine Neurosurgery, [place] [address] [place] [address] Dashawn Haines MD [address] [place] [address] 11/05/2023 3:25 PM EDT Office Visit Interventional Pain Center, [facility] [address] [place] [address] Wiliam Tam DO [address] [place] [phone] 12/17/2023 10:00 AM EDT Appointment Vascular Lab [place] [address] [place] [id number] 12/17/2023 10:30 AM EDT Office Visit Vascular Surg [place] [address] [place] [address] Margarito Cabrera MD [address] [place] [id number] Scheduled Procedures Name Priority Associated Diagnoses Date/Ti [...] this encounter Medical Devices Implanted Type Area Bead Forming Machine Set Up Operator Device Identifier Shelf Expiration Date Model / Serial / Lot Stent Main Body Jzjl-80-89-[id number] - [id number] Implanted:Qty: 1 on 06/10/2014 by Ronal Galelgos MD at [place] [facility] [place] Aorta [employer] 04/07/2016 TFFB-24-8 2-ZT / / Graft Iliac Leg Spirlz 41d78im - [id number] Implanted:Qty: 1 on 06/10/2014 by Ronal Gallegos MD at [place] [facility] [place] Right: Aorta [employer] 10/09/2015 [id number] / / [id number] Description: Graft Iliac Leg Spirlz 80r83bb - [id number] Implanted:Qty: 1 on 06/10/2014 by Ronal Gallegos MD at OR [facility] [place] Right: Femoral Artery [employer] 11/07/2016 [id number] / / [id number] Stent Polmer 29mm P3110 - [id number] Implanted:Qty: 1 on 06/10/2014 by Ronal Gallegos MD at OR [facility] [place] N/A: Aorta JNJ : CORDIS ENDOVASCULAR 07/26/2018 P3110 / / [id number] Codman Orbit Galaxy Coil 2.5mm X 3.5cm Implanted:Qty: 1 on 09/12/2015 by Arik Shin MD at OR [facility] [place] Left: Head LENORA & [employer] 02/26/2017 [id number] / [id number] / [id number] Description:COMPLEX XTRASOFT detachable coil deployed left internal carotid artery Codman Orbit Galaxy Coil 2.5mm X 2.5cm Implanted:Qty: 1 on 09/12/2015 by Arik Shin MD at OR [facility] [place] Left: Head LENORA & LENORA CODMAN 01/27/2016 [id number] / [id number] / [id number] Description:COMPLEX XTRASOFT detachable coil deployed left internal carotid artery aneurysm Codman [place] 2 Stent 4mm X 30mm Implanted:Qty: 1 on 09/12/2015 by Arik Shin MD at OR [facility] [place] Left: Head LENORA & LENORA DEPUY 03/26/2018 [id number] / [id number] / [id number] Description:Vascular reconst ruction device deployed in left internal carotid artery Codman Orbit Galaxy Coil 6mm X 20cm Implanted:Qty: 1 on 09/12/2015 by Arik Shin MD at OR [facility] [place] Left: Head LENORA & LENORA [facility] 09/26/2016 [id number] / [id number] / [id number] Description:COMPLEX FILL det achable coil deployed left internal carotid artery aneurysm Codman Orbit Galaxy Coil 4mm X 10cm Implanted:Qty: 1 on 09/12/2015 by Arik Shin MD at OR [facility] [place] Left: Head LENORA & LENORA [facility] 10/27/2015 [id number] / [id number] / [id number] Description:COMPLEX XTRASOFT detachable coil deployed left internal carotid artery aneurysm Codman Orbit Galaxy Coil 3.5mm X 9cm Implanted:Qty: 1 on 09/12/2015 by Arik Shin MD at OR [facility] [place] Left: Head LENORA & LENORA [facility] 12/28/2015 [id number] / [id number] / [id number] Description:COMPLEX XTRASOFT detachable coil deployed left internal carotid artery aneurysm Codman Orbit Galaxy Coil 3mm X 6cm Implanted:Qty: 1 on 09/12/2015 by Arik Shin MD at OR [facility] [place] Left: Head LENORA [employer] LENORA CODMAN 04/28/2017 [id number] / [id number] / [id number] Description:COMPLEX XTRASOFT detachable coil deployed left internal carotid artery aneurysm Lens Intraoc 21.0 - [id number] - [id number] Implanted:Qty: 1 on 11/08/2020 by Yuri Bradley MD at OR [facility] Left: Eye BAUSCH [employer] LOMB 06/26/2025 [id number] / [id number] / [id number] Lens Intraoc 20.5 - [id number] - [id number] Implanted:Qty: 1 on 11/22/2020 by Yuri Bradley MD at OR [facility] Right: Eye BAUSCH & LOMB 07/27/2025 [id number] / [id number] / [id number] Clip Quick 2.8mm 230cm - [id number] Implanted:Qty: 3 on 03/29/2021 by Luciana Fernandez MD at ENDOSCOPY [facility] [employer] 08/27/2023 HX-202UR. A / / Sureclip 16mm 235cm - [id number] Implanted:Qty: 2 on 05/07/2022 by Luciana Fernandez MD at ENDOSCOPY [facility] Colon MICRO TECH ENDOSCOPY 07/06/2024 [id number] / / Power Port 8fr Sngl Lumen Plas - [id number] Implanted:Qty: 1 on 01/30/2023 by Koko Santiago MD at OR [facility] N/A: Chest CR BARD : PERIPHERAL VASCULAR 07/27/2024 [id number] / / [id number] Power Port 8fr Sngl Lumen Plas - [id number] Implanted:Qty: 1 on 01/30/2023 by Koko Santiago MD at [facility] CR BARD : PERIPHERAL VASCULAR [id number] 07/27/2024 [id number] / / [id number] documented as of this encounter Visit Diagnoses [...] ONCE PRN Other, Hypersensitivity Reaction, Starting on Sat09/13/23 at 0932, Until 09/14/23 at 0931, For 24 hours EPINEPHrine 1 MG/ML inj 0.3 mg 0.3 mg, Intramuscular, ONCE PRN Other, Hypersensitivity Reaction or Anaphylaxis, Starting on Sat09/13/23 at 0932, Until 09/14/23 at 0931, For 24 hours hEParin 100 UNIT/ML Lock Flush inj 500 Units 500 Units (5 mL), IV Lock, PRN Other, IV Flush, Starting on Sat09/13/23 at 0932, Until 09/14/23 at 0931, For 24 hours, Do not flush if lock, PICC, or central line not in place; IV infusing or unable to flush. Given 09/13/2023 12:09 PM EDT 500 Units Hydrocortisone Sod Suc (PF) (Solu-Cortef) inj 100 mg 100 mg, IV Push, ONCE PRN Other, Hypersensitivity Reaction, Starting on Sat09/13/23 at 0932, Until 09/14/23 at 0931, For 24 hours LORAzepam (Ativan) tab 0.5 mg 0.5 mg, Oral, ONCE PRN Anxiety, Nausea, Starting on Sat09/13/23 at 1045, Until Discontinued NSS infusion Intravenous, at 50 mL/hr, PRN, Starting on Sat09/13/23 at 1045, Until Discontinued, Maintenance line Start Infusion 09/13/2023 9:50 AM EDT 50 mL/hr oxygen GAS Inhalation, OXYGEN, First dose on Sat09/13/23 at 1015, Until Discontinued, Device/Managed by: Low [...] Push, PRN Other, IV Flush, Starting on Sat09/13/23 at 0932, Until 09/14/23 at 0931, For 24 hours, Do not flush if lock, PICC, or central line not in place; IV infusing or unable to flush. Given 09/13/2023 12:09 PM EDT 10 mL Inactive Administered Medications - up to 3 most recent administrations Medication Order MAR Action Action Date Dose Rate Site CARBOplatin (Paraplatin) 429 mg in D5W 250 mL infusion 429 mg (rounded from 428.5 mg, Target AUC = 5), IV Piggyback, at 550 mL/hr Administer over 30 Minutes, PROTECT FROM LIGHT Administer 30 min after Alimta complete. (Max Creatinine Clearance at 125 ml/min for calculating AUC dose), ONCE, 1 dose, On Sat09/13/23 at 1115 Start Infusion 09/13/2023 11:29 AM EDT 429 mg 550 mL/hr Fosaprepitant Dimeglumine (Emend) 150 mg, ondansetron (Zofran) 16 mg, dexamethasone sodium phosphate 12 mg in NSS 250 mL Infusion 150 mg, IV Piggyback, ONCE, 1 dose, On Sat09/13/23 at 1015, Administer over 30 Minutes, Give 30 minutes prior to chemotherapy. Infuse over 30 minutes. Start Infusion 09/13/2023 10:08 AM EDT 150 mg 578.4 mL/hr NSS infusion FOR HYDRATION Intravenous, at 500 mL/hr Administer over 2 Hours, ONCE, 1 dose, On Sat09/13/23 at 1045 Start Infusion 09/13/2023 10:10 AM EDT 1,000 mL 500 mL/hr PEMEtrexed Disodium (Alimta) 900 mg in NSS 100 mL infusion 900 mg (rounded from 925 mg = 500 mg/m2 1.85 m2 Treatment Plan BSA from Recorded weight), IV Piggyback, ONCE, 1 dose, On Sat09/13/23 at 1030, Administer over 10 Minutes Start Infusion 09/13/2023 10:47 AM EDT 900 mg 660 mL/hr documented in this encounter Advance Directives Latest [...] and were consensually agreed upon. Care Teams Date Pitter Relationship Specialty Start Date End Date Mauro Watson DO [address] [place] [address] PCP - General Family Medicine 04/13/19 documented as of this encounter
--- OUTSIDE RECORDS SUMMARY | 2024-02-19 09:34 | External Medical Summary | Summary of Care ---
Author Name Unknown Organization [facility] Address [address] [place] [address] Phone [phone] Care Team Providers Care Filler Shredder Machine Name Role Phone Mauro Watson DO Primary Care Provider Reason for Visit * Reason Comments Chemotherapy C7D8 Gemzar/Cisplati n * Episode Based Medications (Routine) - Closed Specialty Diagnoses / Procedures Referred By Edmund nelson Referred To Contact Diagnoses Cholangiocarcinoma (HCC) Encounter for antineoplastic chemotherapy Procedures AK CISPLATIN 10 MG INJECTION AK FOSAPREPITANT INJECTION AK IN GEMCITABINE HCL NOS 200MG AK INJ., DURVALUMAB, 10 MG Roberta La MD [address] [place] [address] Anc Hem/Onc Nandini Contreras DEPT CLOSED - 03/12/23 [address] [place] [address] Referral ID Status Reason Start Date Expiration Date Visits Re quested Visits Authorized [id number] Closed 02/25/2023 04/28/[phone] Encounter Details Date Type Department Care Team (Latest Contact Info) Description 07/29/2023 9:15 AM EDT Hem/Onc Treatment Hematology/Oncolo gy Treatment, [place] [address] [place] [phone] Diane Chair 8 Hem Onc [address] [place] [address] Cholangiocarcinoma (HCC)*; Encounter for antineoplastic chemotherapy Allergies [...] EGFR 72 Lumbar radiculopathy 05/27/2019 Atherosclerosis of [place] co ronary artery of [place] heart with angina pectoris 05/05/2019 History of colon polyps 08/12/2018 ACEI/ARB contraindicated 09/21/2016 Carotid aneurysm, left 09/13/2015 Overview: S/p coil embolization Cerebral aneurysm, nonruptured 09/05/2015 AAA (abdominal aortic aneurysm) 06/20/2015 Overview: S/p repair Bilateral carotid artery disease 06/20/2015 Medical home patient encounter 05/19/2014 Hypertriglyceridemia 05/16/2012 CORON ATHEROSCL [place] CORON VESSEL 07/11/2010 Dyslipidemia, goal LDL below [...] Description 10/04/2023 8:00 AM EDT Laboratory Laboratory [facility] Radha Contreras [address] [place] [phone] [place] [facility] [address] [place] [address] 10/04/2023 9:15 AM EDT Office Visit Hematology/Oncology [facility] Diane [place] [address] [place] [phone] Lasha Christine MD [address] [place] [address] 10/04/2023 9:45 AM EDT Hem/Onc Treatment Hematology/Oncology Treatment, [place] [address] [place], [place] [phone] Diane, Chair 11 Hem Onc [address] [place] [address] 10/30/2023 1:00 PM EDT Telemedicine Neurosurgery, [place] [address] [place] [address] Dashawn Hainse [place] [address] 11/05/2023 3:25 PM EDT Office Visit Interventional Pain Center, [facility] [place] [address] [place] [address] Wiliam Tam DO [address] [facility] [address] 12/17/2023 10:00 AM EDT Appointment Vascular Lab [facility] [address] [place] [address] 12/17/2023 10:30 AM EDT Office Visit Vascular Surg [place] [address] [place] [address] Margarito Cabrera MD [address] [place] [address] Scheduled Procedures Name Priority Associated Diagnoses Date/Ti [...] this encounter Medical Devices Implanted Type Area Data Communications Software Consultant Device Identifier Shelf Expiration Date Model / Serial / Lot Stent Main Body Blyw-16-82-Zt - [id number] Implanted:Qty: 1 on 06/10/2014 by Ronal Gallegos MD at OR [facility] Aorta [employer] 04/07/2016 TFFB-24-8 2-ZT / / Graft Iliac Leg Spirlz 63g42lb - [id number] Implanted:Qty: 1 on 06/10/2014 by Ronal Gallegos MD at OR [facility] Right: Aorta [employer] 10/09/2015 [id number] / / [id number] Description: Graft Iliac Leg Spirlz 07s17fl - [id number] Implanted:Qty: 1 on 06/10/2014 by Ronal Gallegos MD at OR [facility] Right: Femoral Artery [employer] 11/07/2016 [id number] / / [id number] Stent Polmer 29mm P3110 - [id number] Implanted:Qty: 1 on 06/10/2014 by Ronal Gallegos MD at OR [facility] N/A: Aorta JNJ : CORDIS ENDOVASCULAR 07/26/2018 P3110 / / [id number] Codman Orbit Galaxy Coil 2.5mm X 3.5cm Implanted:Qty: 1 on 09/12/2015 by Arik Shin MD at OR [facility] Left: Head L[employer]ORA [employer] LENORA CODMAN 02/26/2017 [id number] / [id number] / [id number] Description:COMPLEX XTRASOFT detachable coil deployed left internal carotid artery Codman Orbit Galaxy Coil 2.5mm X 2.5cm Implanted:Qty: 1 on 09/12/2015 by Arik Shin MD at OR [facility] Left: Head LENORA [employer] LENORA CODMAN 01/27/2016 [id number] / [id number] / [id number] Description:COMPLEX XTRASOFT detachable coil deployed left internal carotid artery aneurysm Codman [place] 2 Stent 4mm X 30mm Implanted:Qty: 1 on 09/12/2015 by Arik Shin MD at OR [facility] Left: Head LENORA [employer] LENORA DEPUY 03/26/2018 [id number] / [id number] / [id number] Description:Vascular reconst ruction device deployed in left internal carotid artery Codman Orbit Galaxy Coil 6mm X 20cm Implanted:Qty: 1 on 09/12/2015 by Arik Shin MD at OR [facility] Left: Head LENORA [employer] LENORA CODMAN 09/26/2016 [id number] / [id number] / [id number] Description:COMPLEX FILL det achable coil deployed left internal carotid artery aneurysm Codman Orbit Galaxy Coil 4mm X 10cm Implanted:Qty: 1 on 09/12/2015 by Arik Shin MD at OR [facility] Left: Head LENORA [employer] LENORA CODMAN 10/27/2015 [id number] 0 / [id number] / [id number] Description:COMPLEX XTRASOFT detachable coil deployed left internal carotid artery aneurysm Codman Orbit Galaxy Coil 3.5mm X 9cm Implanted:Qty: 1 on 09/12/2015 by Arik Shin MD at OR [facility] Left: Head LENORA [employer] LENORA CODMAN 12/28/2015 [id number] / [id number] / [id number] Description:COMPLEX XTRASOFT detachable coil deployed left internal carotid artery aneurysm Codman Orbit Galaxy Coil 3mm X 6cm Implanted:Qty: 1 on 09/12/2015 by Arik Shin MD at OR [facility] Left: Head LENORA & LENORA CODMAN 04/28/2017 [id number] / [id number] / [id number] Description:COMPLEX XTRASOFT detachable coil deployed left internal carotid artery aneurysm Lens Intraoc 21.0 - [id number] - [id number] Implanted:Qty: 1 on 11/08/2020 by Yuri Bradley MD at OR [facility] Left: Eye BAUSCH [employer] LOMB 06/26/2025 [id number] / [id number] / [id number] Lens Intraoc 20.5 - [id number] - [id number] Implanted:Qty: 1 on 11/22/2020 by Yuri Bradley MD at OR [facility] Right: Eye BAUSCH & LOMB 07/27/2025 [id number] / [id number] / [id number] Clip Quick 2.8mm 230cm - [id number] Implanted:Qty: 3 on 03/29/2021 by Luciana Fernandez MD at ENDOSCOPY [facility] Or[employer] 08/27/2023 HX-202UR. A / / Sureclip 16mm 235cm - [id number] Implanted:Qty: 2 on 05/07/2022 by Luciana Fernandez MD at ENDOSCOPY [facility] Colon MICRO TECH ENDOSCOPY 07/06/2024 [id number] / / Power Port 8fr Sngl Lumen Plas - [id number] Implanted:Qty: 1 on 01/30/2023 by Koko Santiago MD at OR [facility] N/A: Chest CR BARD : PERIPHERAL VASCULAR 07/27/2024 [id number] / / [id number] Power Port 8fr Sngl Lumen Plas - [id number] Implanted:Qty: 1 on 01/30/2023 by Koko Santiago MD at OR [facility] CR BARD : PERIPHERAL VASCULAR [id number] 07/27/2024 [id number] / / [id number] documented as of this encounter Visit Diagnoses [...] and were consensually agreed upon. Care Teams Filler Shredder Machine Relationship Specialty Start Date End Date Mauro Watson DO [address] [place] [address] PCP - General Family Medicine 04/13/19 documented as of this encounter
--- OUTSIDE RECORDS SUMMARY | 2024-02-19 09:34 | External Medical Summary | Summary of Care ---
Author Name Unknown Organization [facility] Address [address] [place] [address] Phone [phone] Care Team Providers Care Merchandise Flow Manager Name Role Phone Watson Mauro Brewer DO Primary Care Provider Reason for Visit * Reason Onset Date Comments Medication Refill 09/13/2023 Encounter Details Date Type Department Care Team (Late st Contact Info) Description 09/13/2023 Refill Hematology/Oncology Treatment, [place] [address] [place] [phone] Ernie Christine MD [address] [facility] [place] [address] Metastatic carcinoma involving liver with unknown primary [...] 05/08/2022 Active Gabapentin 600 MG Oral Tablet (Neurontin)Indicat [...] Pain, Moderate. 30 Tablet 0 08/19/2023 Active dexAMETHasone 4 MG Oral TabletIndications: [...] the morning. 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 30 Tablet 3 08/22/2023 4 Discontinue d(Refill) documented as of [...] patient encounter 05/19/2014 Hypertriglyceridemia 05/16/2012 CORON ATHEROSCL [place] CORON VESSEL 07/11/2010 Dyslipidemia, goal LDL below [...] Telephone Encounter - Veronica Briones LPN - 09/13/2023 4:20 PM EDTSigned Prescriptions: Disp Refills Folic Acid 1 MG Oral Tablet 90 Tab*3 Sig: Take 1 Tablet by mouthin the morning.Authorizing Provider: ERNIE CHRISTINE * Telephone Encounter - Ernie Christine MD - 09/13/2023 4:15 PM EDT E-prescribed Ernie Christine MD Hem/Onc * Telephone Encounter - Lorri Matias RN - 09/13/2023 3:22 PM EDT Received faxed refill request from [facility] asking that folic acid rx be changed to 90 day supply. Patient is on carboplatin and alimta, needs to be on folic acid while receiving treatment. documented in this encounter Plan of Treatment Upcoming Encounters Date Type Department Care Team (Late st Contact Info) Description 10/04/2023 8:00 AM EDT Laboratory Laboratory [facility] [place] [address] [place] [phone] Diane, Lab Scenery [address] [facility] [place] [address] 10/04/2023 9:15 AM EDT Office Visit Hematology/Oncology [facility] [place] [address] [place] [phone] Ernie Christine MD [address] [place] [address] 10/04/2023 9:45 AM EDT [facility] [address] [place] [address] Diane, Chair 11 Hem Onc [facility] [address] [facility] [place] [address] 10/30/2023 1:00 PM EDT Telemedicine Neurosurgery, [address] [address] Dashawn Haines MD [facility] [place] [address] 11/05/2023 3:25 PM EDT Office Visit Interventional Pain Center, [facility] [address] [place] [address] Wiliam Tam DO [address] [place] [phone] 12/17/2023 10:00 AM EDT Appointment Vascular Lab [facility], [address] [address] 12/17/2023 10:30 AM EDT Office Visit Vascular Surg [facility], [address] [address] Margarito Cabrera MD [address] [place] [address] Scheduled Procedures Name Priority Associated Diagnoses Date/Ti [...] this encounter Medical Devices Implanted Type Area Dumpcart Driver Device Identifier Shelf Expiration Date Model / Serial / Lot Stent Main Body Hvyw-29-87-Zt - [id number] Implanted:Qty: 1 on 06/10/2014 by Ronal [place]leg[place] [facility] [place] Aorta [employer] 04/07/2016 TFFB-24-8 2-ZT / / Graft Iliac Leg Spirlz 84u85op - [id number] Implanted:Qty: 1 on 06/10/2014 by Ronal Gallegos MD [place] [facility] Right: Aorta [employer] 10/09/2015 [id number] / / [id number] Description: Graft Iliac Leg Spirlz 27o70if - [id number] Implanted:Qty: 1 on 06/10/2014 by Ronal Gallegos MD [place] [facility]: Femoral Artery [employer] 11/07/2016 [id number] / / [id number] Stent Polmer 29mm P3110 - [id number] Implanted:Qty: 1 on 06/10/2014 by Ronal Gallegos MD [place] [facility]/A: Aorta JNJ : CORDIS ENDOVASCULAR 07/26/2018 P3110 / / [id number] Codman Orbit Galaxy Coil 2.5mm X 3.5cm Implanted:Qty: 1 on 09/12/2015 by Arik Shin MD [place] [facility] Left: Head LENORA [employer] LENORA CODMAN 02/26/2017 [id number] / [id number] / [id number] Description:COMPLEX XTRASOFT detachable coil deployed left internal carotid artery Codman Orbit Galaxy Coil 2.5mm X 2.5cm Implanted:Qty: 1 on 09/12/2015 by Arik Shin MD [place] [facility]: Head LENORA [employer] LENORA CODMAN 01/27/2016 [id number] / [id number] / [id number] Description:COMPLEX XTRASOFT detachable coil deployed left internal carotid artery aneurysm Codman [place] 2 Stent 4mm X 30mm Implanted:Qty: 1 on 09/12/2015 by Arik Shin MD [place] [facility] Left: Head LENORA [employer] LENORA DEPUY 03/26/2018 [id number] / [id number] / [id number] Description:Vascular reconst ruction device deployed in left internal carotid artery Codman Orbit Galaxy Coil 6mm X 20cm Implanted:Qty: 1 on 09/12/2015 by Arik Shin MD [place] [facility]: Head [employer]A [employer]EN[employer]A CODMAN 09/26/2016 [id number] / [id number] / [id number] Description:COMPLEX FILL det achable coil deployed left internal carotid artery aneurysm Codman Orbit Galaxy Coil 4mm X 10cm Implanted:Qty: 1 on 09/12/2015 by Arik Shin MD [place] [facility]: Head [employer] CODMAN 10/27/2015 [id number] 0 / [id number] / [id number] Description:COMPLEX XTRASOFT detachable coil deployed left internal carotid artery aneurysm Codman Orbit Galaxy Coil 3.5mm X 9cm Implanted:Qty: 1 on 09/12/2015 by Arik Shin MD [place] [facility]: Head [employer]A [employer] LEN[employer]A CODMAN 12/28/2015 [id number] / [id number] / [id number] Description:COMPLEX XTRASOFT detachable coil deployed left internal carotid artery aneurysm Codman Orbit Galaxy Coil 3mm X 6cm Implanted:Qty: 1 on 09/12/2015 by Arik Shin MD [place] [facility] Left: Head LENORA [employer] LENORA CODMAN 04/28/2017 [id number] / [id number] / [id number] Description:COMPLEX XTRASOFT detachable coil deployed left internal carotid artery aneurysm Lens Intraoc 21.0 - [id number] - [id number] Implanted:Qty: 1 on 11/08/2020 by Yuri Bradley MD at OR [facility] Left: Eye BAUSCH & LOMB 06/26/2025 [id number] / [id number] Lens Intraoc 20.5 - [id number] - [id number] Implanted:Qty: 1 on 11/22/2020 by Yuri Bradley MD at OR [facility] Right: Eye BAUSCH & LOMB 07/27/2025 [id number] / [id number] Clip Quick 2.8mm 230cm - [id number] Implanted:Qty: 3 on 03/29/2021 by Luciana Fernandez MD at ENDOSCOPY [facility] [employer] 08/27/2023 HX-202UR. A / / Sureclip 16mm 235cm - [id number] Implanted:Qty: 2 on 05/07/2022 by Luciana Fernandez MD at ENDOSCOPY [facility] Colon MICRO TECH ENDOSCOPY 07/06/2024 [id number] / / Power Port 8fr Sngl Lumen Plas - [id number] Implanted:Qty: 1 on 01/30/2023 by Koko Santiago MD at OR [facility] N/A: Chest CR BARD : PERIPHERAL VASCULAR 07/27/2024 [id number] / / [id number] Power Port 8fr Sngl Lumen Plas - [id number] Implanted:Qty: 1 on 01/30/2023 by Koko Santiago MD at OR [facility] CR BARD : PERIPHERAL VASCULAR [id number] 07/27/2024 [id number] / / [id number] documented as of this encounter Visit Diagnoses Diagnosis 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) documented in this encounter Advance Directives Latest [...] and were consensually agreed upon. Care Teams Merchandise Flow Manager Relationship Specialty Start Date End Date Mauro Watson DO [address] [place] [address] PCP - General Family Medicine 04/13/19 documented as of this encounter
--- OUTSIDE RECORDS SUMMARY | 2024-02-19 09:34 | External Medical Summary | Summary of Care ---
Author Name Unknown Organization [facility] Address [address] [place] [address] Phone [phone] Care Team Providers Care Fishing Worker Name Role Phone Mauor Watson DO Primary Care Provider Reason for Visit * Reason Comments Chemotherapy C7D8 Gemzar/Cisplati n * Episode Based Medications (Routine) - Closed Specialty Diagnoses / Procedures Referred By Edmund nelson Referred To Contact Diagnoses Cholangiocarcinoma (HCC) Encounter for antineoplastic chemotherapy Procedures [place] CISPLATIN 10 MG INJECTION [place] FOSAPREPITANT INJECTION [place] IN GEMCITABINE HCL NOS 200MG [place] INJ., DURVALUMAB, 10 MG Roberta La MD [address] [place] [address] Anc Hem/Onc Nandini Contreras DEPT CLOSED - 03/12/23 [address] [place] [address] Referral ID Status Reason Start Date Expiration Date Visits Re quested Visits Authorized [id number] Closed 02/25/2023 04/28/[phone] Encounter Details Date Type Department Care Team (Latest Contact Info) Description 07/29/2023 9:15 AM EDT Hem/Onc Treatment Hematology/Oncolo gy Treatment, [place] [address] [place] [address] Diane Chair 8 Hem Onc [address]en[address] [place] [address] Cholangiocarcinoma (HCC)*; Encounter for antineoplastic chemotherapy Allergies [...] EGFR 72 Lumbar radiculopathy 05/27/2019 Atherosclerosis of [place] co ronary artery of [place] heart with angina pectoris 05/05/2019 History of colon polyps 08/12/2018 ACEI/ARB contraindicated 09/21/2016 Carotid aneurysm, left 09/13/2015 Overview: S/p coil embolization Cerebral aneurysm, nonruptured 09/05/2015 AAA (abdominal aortic aneurysm) 06/20/2015 Overview: S/p repair Bilateral carotid artery disease 06/20/2015 Medical home patient encounter 05/19/2014 Hypertriglyceridemia 05/16/2012 CORON ATHEROSCL [place] CORON VESSEL 07/11/2010 Dyslipidemia, goal LDL below [...] Description 10/04/2023 8:00 AM EDT Laboratory Laboratory [facility] Radha Contreras [address] [place] [phone] [place] [facility] Scene [address] [place] [address] 10/04/2023 9:15 AM EDT Office Visit Hematology/Oncology [facility] Diane [place] [address] [place] [phone] Lasha Christine MD [address] [place] [address] 10/04/2023 9:45 AM EDT Hem/Onc Treatment Hematology/Oncology Treatment, [place] [address] [place], [place] [phone] Diane, Chair 11 Hem Onc [place] [address] [place] [address] 10/30/2023 1:00 PM EDT Telemedicine Neurosurgery, [place] [address] [place] [address] Dashawn Haines MD [facility] [place] [address] 11/05/2023 3:25 PM EDT Office Visit Interventional Pain Center, [facility] [address] [place] [address] Wiliam Tam DO [address] [facility] [phone] 12/17/2023 10:00 AM EDT Appointment Vascular Lab [facility] [address] [place] [address] 12/17/2023 10:30 AM EDT Office Visit Vascular Surg [place] [address] [place] [address] Margarito Cabrera MD [address] [place] [address] Scheduled Procedures Name Priority Associated Diagnoses Date/Ti [...] this encounter Medical Devices Implanted Type Area Hip Hop Dancer Device Identifier Shelf Expiration Date Model / Serial / Lot Stent Main Body Awbw-48-56-Zt - [id number] Implanted:Qty: 1 on 06/10/2014 [place] Ronal [place] [facility] [place] Aorta [employer] 04/07/2016 TFFB-24-8 2-ZT / / Graft Iliac Leg Spirlz 30o92ow - [id number] Implanted:Qty: 1 on 06/10/2014 by Ronal Galleg[place] [facility] [place]: Aorta [employer] 10/09/2015 [id number] / / [id number] Description: Graft Iliac Leg Spirlz 39t23mh - [id number] Implanted:Qty: 1 on 06/10/2014 by Ronal Galleg[place] [facility] [place]: Femoral Artery [employer] 11/07/2016 [id number] / / [id number] Stent Polmer 29mm P3110 - [id number] Implanted:Qty: 1 on 06/10/2014 by Ronal Galleg[place] [facility] [place]A: Aorta JNJ : CORDIS ENDOVASCULAR 07/26/2018 P3110 / / [id number] Codman Orbit Galaxy Coil 2.5mm X 3.5cm Implanted:Qty: 1 on 09/12/2015 by Arik Shin MD [place] [facility] [place]: Head [employer]A [employer] LEN[employer]A CODMAN 02/26/2017 [id number] / [id number] / [id number] Description:COMPLEX XTRASOFT detachable coil deployed left internal carotid artery Codman Orbit Galaxy Coil 2.5mm X 2.5cm Implanted:Qty: 1 on 09/12/2015 by Arik Shin MD [place] [facility] [place]: Head L[employer]A [employer] LEN[employer]A CODMAN 01/27/2016 [id number] / [id number] / [id number] Description:COMPLEX XTRASOFT detachable coil deployed left internal carotid artery aneurysm Codman [place] 2 Stent 4mm X 30mm Implanted:Qty: 1 on 09/12/2015 by Arik Shin MD [place] [facility] [place]: Head LENORA [employer] LENORA DEPUY 03/26/2018 [id number] / [id number] / [id number] Description:Vascular reconst ruction device deployed in left internal carotid artery Codman Orbit Galaxy Coil 6mm X 20cm Implanted:Qty: 1 on 09/12/2015 by Arik Shin MD [place] [facility] [place]: Head [employer]A [employer] CODMAN 09/26/2016 [id number] / [id number] / [id number] Description:COMPLEX FILL det achable coil deployed left internal carotid artery aneurysm Codman Orbit Galaxy Coil 4mm X 10cm Implanted:Qty: 1 on 09/12/2015 by Arik Shin MD [place] [facility] [place]: Head L[employer]A [employer] LEN[employer]A CODMAN 10/27/2015 [id number] 0 / [id number] / [id number] Description:COMPLEX XTRASOFT detachable coil deployed left internal carotid artery aneurysm Codman Orbit Galaxy Coil 3.5mm X 9cm Implanted:Qty: 1 on 09/12/2015 by Arik Shin MD [place] [facility] [place]: Head L[employer]A [employer] LEN[employer]A CODMAN 12/28/2015 [id number] / [id number] / [id number] Description:COMPLEX XTRASOFT detachable coil deployed left internal carotid artery aneurysm Codman Orbit Galaxy Coil 3mm X 6cm Implanted:Qty: 1 on 09/12/2015 by Arik Shin MD [place] [facility] [place]: Head LENORA [employer] LENORA CODMAN 04/28/2017 [id number] / [id number] / [id number] Description:COMPLEX XTRASOFT detachable coil deployed left internal carotid artery aneurysm Lens Intraoc 21.0 - [id number] - [id number] Implanted:Qty: 1 on 11/08/2020 by Yuri Bradley MD at OR [facility] Left: Eye BAUSCH & LOMB 06/26/2025 [id number] / [id number] / [id number] Lens Intraoc 20.5 - [id number] - [id number] Implanted:Qty: 1 on 11/22/2020 by Yuri Bradley MD at OR [facility] Right: Eye BAUSCH & LOMB 07/27/2025 [id number] / [id number] / [id number] Clip Quick 2.8mm 230cm - [id number] Implanted:Qty: 3 on 03/29/2021 by Luciana Fernandez MD at ENDOSCOPY [facility] [employer] 08/27/2023 HX-202UR. A / / Sureclip 16mm 235cm - [id number] Implanted:Qty: 2 on 05/07/2022 by Luciana Fernandez MD at ENDOSCOPY [facility] Colon MICRO TECH ENDOSCOPY 07/06/2024 [id number] / / Power Port 8fr Sngl Lumen Plas - [id number] Implanted:Qty: 1 on 01/30/2023 by Koko Santiago MD at [place] [facility] N/A: Chest CR BARD : PERIPHERAL VASCULAR 07/27/2024 [id number] / / [id number] Power Port 8fr Sngl Lumen Plas - [id number] Implanted:Qty: 1 on 01/30/2023 by Koko Santiago MD at [place] [facility] CR BARD : PERIPHERAL VASCULAR [id number] 07/27/2024 [id number] / / [id number] documented as of this encounter Visit Diagnoses [...] and were consensually agreed upon. Care Teams Fishing Worker Relationship Specialty Start Date End Date Mauro Watson DO [address] [place] [address] PCP - General Family Medicine 04/13/19 documented as of this encounter
--- OUTSIDE RECORDS SUMMARY | 2024-02-19 09:35 | External Medical Summary | Summary of Care ---
Author Name Unknown Organization [facility] Address [address] [place] [address] Phone [phone] Care Team Providers Care Plating Foreman Name Role Phone Mauro Watson DO Primary Care Provider Reason for Visit * Reason Onset Date Comments Information 09/11/2023 Encounter Details Date Type Department Care Team ([facility] st Contact Info) Description 09/11/2023 Telephone Hematology/Oncology Treatment, [place] [address] [place] [address] Lasha Christine MD [address] [place] [address] Information Allergies Active Allergy Reactions Criticality Noted Date Comments Aspirin Bleeding High 11/26/2011 Significant hemorroidal bleed on aspirin,high doses Duloxetine Hcl Hypertension 01/26/2020 documented as of this encounter (statuses as of 09/12/2023) Medications Medication Sig Dispensed Refills Start Date [...] as of this encounter (statuses as of 09/12/2023) Active Problems Problem Noted Date Diagnosed Date [...] patient encounter 05/19/2014 Hypertriglyceridemia 05/16/2012 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 Order placed, patient agreeable. Scheduling: please also add CXR appt today at 2pm- patient aware this is being added. Thank you! * Telephone Encounter - Tia Shah OSA - 09/12/2023 8:36 AM EDT Apts updated * Telephone Encounter - Lorri Matias RN - 09/12/2023 8:30 AM EDT Received call from patient- temp 100.2. Still has a bit of a cough, non productive. States that he thinks he described discomfort he has having wrong- states it is more of an occasional tightness. Offered to move labs/ follow up to today- patient agreeable. Scheduling: please move labs/ follow up to today- labs at 2:15pm, Enriqueta at 3pm. Patient is aware.Thanks! Treatment will stay tomorrow as scheduled for now. * Telephone Encounter - Lorri Matias RN - 09/11/2023 8:46 AM EDT Called patient. He states that he has not been feeling well- low grade fever 99.2, fatigued. He does have a slight cough, nonproductive. At time he has occasional twinges of chest pain but they do not last long. This started 4-5 days after chemotherapy and has not gotten any worse. He is constipated, but is still having a daily BM. Drinking a lot of fluids, denies dizziness. Discussed that Dr Bejarano is reviewing for clinical trial and therefore suggestion is to hold treatment. He states that this concerns him as there was almost a month before he started this treatment. His preference is to continue with treatment as planned since he isn't sure he will even qualify for aclinical trial. Reviewed with Dr Christine. If patients preference is to continue treatment, can leave appts as scheduled. Would recommend patient send message through portal to Dr Bejarano to let Dr Bejarano know he wants to continue current therapy so that she will have this information for clinical trial assessment. Also advised patient that if he feels he needs lab work/ follow up sooner, we can certainly move them up (and still leave treatment 09/12). Patient verbalized understanding, states that he will let usknow if he would like to do this. He will also send a message to Dr Bejarano. * Telephone Encounter - Lorri Matias RN - 09/11/2023 8:18 AM EDT Images from the original note were not included. Per Dr Christine: "Lasha Christine MD P [facility]/Onc Nurse Pool/Class; Enriqueta Souza CRNP Az, Dr. Bejarano from [facility] spoke with me about his case, she says that she is considering for 2nd line chemotherapy with clinical trial which includes paclitaxel and study drug. (For the biliary cancer). I told her that we have always had a 2nd line chemotherapy with Alimta and carboplatin and issued one cycle of chemotherapy. She says that she is going to see him quickly via video visit and check with the clinical trial people for eligibility. I see that his chemical treatment on 09/13/2023. Perhaps we should wait for the decision about clinical trial. Dr. Lasha Christine Hem/Onc" Will need to call patient to discuss cancelling treatment. documented in this encounter Plan of Treatment Upcoming Encounters Date Type Department Care Team (Late st Contact Info) Description 09/12/2023 2:10 PM EDT Laboratory Laboratory [facility] [place] [address] [facility] [place] [phone] Diane Lab [facility] [address] [facility] [place] [address] 09/12/2023 3:00 PM EDT Office Visit Hematology/Oncology [facility] [place] [address] [facility] [place] [phone] Enriqueta Souza CRNP [address] [place] [address] 09/13/2023 9:30 AM EDT Hem/Onc Treatment Hematology/Oncology Treatment, [place] [address] [facility] [phone] Diane, Chair 5 Hem Onc [address] [place] [address] 10/30/2023 1:00 PM EDT Telemedicine Neurosurgery, [address] [address] Dashawn Haines MD [address] [place], [place] [id number] 11/05/2023 3:25 PM EDT Office Visit Interventional Pain Center, [facility] [address] [place] [address] Wiliam Tam DO [address] [place] [phone] 12/17/2023 10:00 AM EDT Appointment Vascular Lab [facility], [address] [address] 12/17/2023 10:30 AM EDT Office Visit Vascular Surg [facility], [place] [address] [place] [address] Margarito Cabrera MD [address] [place] [address] Scheduled Procedures Name Priority Associated Diagnoses Date/Ti me COLONOSCOPY FLEXIBLE PROXIMAL DIAGNOSTIC Recall History of colon polyps Health Maintenance Due Date Last Done Comments Cologuard 1994 Sigmoidoscopy 1994 Fecal Occult Blood Test 02/03/2001 02/04/2000, 02/02 COVID-19 Vaccine (2022- season) 2022 02/06/2022, 05/11/2021, 12/13/2020, Additional history exists Depression Screening 05/17/2023 05/17/2022 Colonoscopy 11/03/2023 11/02/2022, 10/2022, 05/07/2022, Additional history exists Colorectal Cancer Screening 11/03/2023 GFR 08/21/2024 08/22/2023, 07/28, 07/29/2023, Additional history exists Albumin/Creatinine Ratio 05/17/2025 05/17/2022, [...] this encounter Medical Devices Implanted Type Area Brush Sander Device Identifier Shelf Expiration Date Model / Serial / Lot Stent Main Body Bcce-39-92-[id number] - [id number] Implanted:Qty: 1 on 06/10/2014 by Ronal Gallegos MD at OR [facility] Aorta [employer] 04/07/2016 TFFB-24-8 2-ZT / / Graft Iliac Leg Spirlz [id number] - [id number] Implanted:Qty: 1 on 06/10/2014 by Ronal Gallegos MD at OR [facility] Right: Aorta [employer] 10/09/2015 [id number] / / [id number] Description: Graft Iliac Leg Spirlz 12b99uf - [id number] Implanted:Qty: 1 on 06/10/2014 by Ronal Gallegos MD at OR [facility] Right: Femoral Artery [employer] 11/07/2016 [id number] / / [id number] Stent Polmer 29mm P3110 - [id number] Implanted:Qty: 1 on 06/10/2014 by Ronal Gallegos MD at OR [facility] N/A: Aorta JNJ : CORDIS ENDOVASCULAR 07/26/2018 [id number] / / [id number] Codman Orbit Galaxy Coil 2.5mm X 3.5cm Implanted:Qty: 1 on 09/12/2015 by Arik Shin MD at OR [facility] Left: Head LENORA & LENORA CODMAN 02/26/2017 [id number] / [id number] / [id number] Description:COMPLEX XTRASOFT detachable coil deployed left internal carotid artery Codman Orbit Galaxy Coil 2.5mm X 2.5cm Implanted:Qty: 1 on 09/12/2015 by Arik Shin MD at OR [facility] Left: Head LENORA & LENORA CODMAN 01/27/2016 [id number] / [id number] / [id number] Description:COMPLEX XTRASOFT detachable coil deployed left internal carotid artery aneurysm Codman Richardson 2 Stent 4mm X 30mm Implanted:Qty: 1 on 09/12/2015 by Arik Shin MD at OR [facility] Left: Head LENORA & LENORA DEP 03/26/2018 [id number] / [id number] / [id number] Description:Vascular reconst ruction device deployed in left internal carotid artery Codman Orbit Galaxy Coil 6mm X 20cm Implanted:Qty: 1 on 09/12/2015 by Arik Shin MD at OR [facility] Left: Head LENORA [employer] LENORA CODMAN 09/26/2016 [id number] / [id number] / [id number] Description:COMPLEX FILL det achable coil deployed left internal carotid artery aneurysm Codman Orbit Galaxy Coil 4mm X 10cm Implanted:Qty: 1 on 09/12/2015 by Arik Shin MD at OR [facility] Left: Head LENORA & LENORA [facility] 10/27/2015 [id number] / [id number] / [id number] Description:COMPLEX XTRASOFT detachable coil deployed left internal carotid artery aneurysm Codman Orbit Galaxy Coil 3.5mm X 9cm Implanted:Qty: 1 on 09/12/2015 by Arik Shin MD at OR [facility] Left: Head LENORA & LENORA [facility] 12/28/2015 [id number] / [id number] / [id number] Description:COMPLEX XTRASOFT detachable coil deployed left internal carotid artery aneurysm Codman Orbit Galaxy Coil 3mm X 6cm Implanted:Qty: 1 on 09/12/2015 by Arik Shin MD at OR [facility] Left: Head LENORA & LENORA [facility] 04/28/2017 [id number] / [id number] / [id number] Description:COMPLEX XTRASOFT detachable coil deployed left internal carotid artery aneurysm Lens Intraoc 21.0 - [id number] - [id number] Implanted:Qty: 1 on 11/08/2020 by Yuri Bradley MD at OR [facility] Left: Eye BAUSCH & LOMB 06/26/2025 [id number] / [id number] / [id number] Lens Intraoc 20.5 - [id number] - [id number] Implanted:Qty: 1 on 11/22/2020 by Yuri Bradley MD at OR [facility] Right: Eye BAUSCH & LOMB 07/27/2025 [id number] / [id number] / [id number] Clip Quick 2.8mm 230cm - [id number] Implanted:Qty: 3 on 03/29/2021 by Luciana Fernandez MD at ENDOSCOPY [facility] [employer] 08/27/2023 HX-202UR. A / / Sureclip 16mm 235cm - [id number] Implanted:Qty: 2 on 05/07/2022 by Luciana Fernandez MD at ENDOSCOPY [facility] Colon MICRO TECH ENDOSCOPY 07/06/2024 [id number] / / Power Port 8fr Sngl Lumen Plas - [id number] Implanted:Qty: 1 on 01/30/2023 by Koko Santiago MD at OR [facility] N/A: Chest CR BARD : PERIPHERAL VASCULAR 07/27/2024 [id number] / / [id number] Power Port 8fr Sngl Lumen Plas - [id number] Implanted:Qty: 1 on 01/30/2023 by Koko Santiago MD at OR [facility] CR BARD : PERIPHERAL VASCULAR [id number] 07/27/2024 [id number] / / [id number] documented as of this encounter Advance Directives [...] and were consensually agreed upon. Care Teams Plating Foreman Relationship Specialty Start Date End Date Mauro Watson DO [address] [place] [address] PCP - General Family Medicine 04/13/19 documented as of this encounter
--- OUTSIDE RECORDS SUMMARY | 2024-02-19 09:35 | External Medical Summary ---
Author Name Unknown Address Unknown Organization K09[facility] [place] [address] Laboratory Report Ordering Provider Test Date Status ANN KLEIN 09/12/2023 14:08:14 Final Observation Date Value Abnormality Reference (Units ) Status WBC, Total 09/12/2023 14:08:14 7.92 4.00-10.8 0 (K/uL) Final RBC 09/12/2023 14:08:14 3.70 4.50-5.25 (M/uL) Final Hemoglobin 09/12/2023 14:08:14 11.2 Below low normal 14 .0-16.8 (g/dL) Final HCT 09/12/2023 14:08:14 35.7 Below low normal 40. 0-48.4 (%) Final MCV 09/12/2023 14:08:14 96.5 82.0-99.5 (fL) Final MCH 09/12/2023 14:08:14 30.3 27.0-34.0 (pg) Final MCHC 09/12/2023 14:08:14 31.4 32.0-36.0 (g/dL) Final RDW 09/12/2023 14:08:14 18.2 11.5-15.5 (%) Final Platelets 09/12/2023 14:08:14 214 140-400 (K /uL) Final MPV 09/12/2023 14:08:14 10.4 6.6-11.1 ( fL) Final Performing Location [facility] [place] [address]
--- OUTSIDE RECORDS SUMMARY | 2024-02-19 09:35 | External Medical Summary ---
Author Name Unknown Address Unknown Organization K09:[facility] [place] [address] Laboratory Report Ordering Provider Test Date Status ANN KLEIN 09/12/2023 14:08:14 Final Observation Date Value Abnormality Reference (Units ) Status SYNC LEUKOCYTES IN BLOOD BY AUTOMATED COUNT 09/12/2023 14:08:14 7.92 4.00-10.80 (K/uL) Final Segs 09/12/2023 14:08:14 73.1 40.0-75.0 (%) Final Lymphs % 09/12/2023 14:08:14 17.8 Below low normal 18.0-42.0 (%) Final Monos 09/12/2023 14:08:14 8.8 1.0-11.0 (%) Final Eosinophils 09/12/2023 14:08:14 0.0 0.0-6.0 (%) Final Basos 09/12/2023 14:08:14 0.3 0.0-2.0 (%) Final Absolute Segs 09/12/2023 14:08:14 5.79 1.80-7.70 (K/uL) Final Lymphs, absolute 09/12/2023 14:08:14 1.41 1.00-4.80 (K/ul) Final Monos, Abs 09/12/2023 14:08:14 0.70 0.00-1.10 (K/uL) Final Eos, Abs 09/12/2023 14:08:14 0.00 0.00-0.70 (K/uL) Final Basos, Abs 09/12/2023 14:08:14 0.02 0.00-0.20 (K/uL) Final Performing Location [facility] [place] [address]
--- OUTSIDE RECORDS SUMMARY | 2024-02-19 09:35 | External Medical Summary | Summary of Care ---
Author Name Unknown Organization [facility] Address [address] [place] [address] Phone [phone] Care Team Providers Care Laboratory Scientist Name Role Phone Mauro Watson DO Primary Care Provider Reason for Visit * Reason Onset Date Comments Information 09/11/2023 Encounter Details Date Type Department Care Team ([facility] st Contact Info) Description 09/11/2023 Telephone Hematology/Oncology Treatment, [place] [address] [place] [address] Lasha Christine MD [address] [place] [address] Information Allergies Active Allergy Reactions Criticality Noted [...] EGFR 72 Lumbar radiculopathy 05/27/2019 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 Bejarano from [facility] spoke with me about his case, [...] Description 09/12/2023 2:10 PM EDT Laboratory Laboratory [facility] [address] [place] [address] Zeyad Contreras [address] [facility] [place], [place] [address] 09/12/2023 3:00 PM EDT Office Visit Hematology/Oncology Scenery [facility] [address] [place] [phone] Enriqueta Souza CRNP [address] [facility] [place] [address] 09/13/2023 9:30 AM EDT Hem/Onc Treatment Hematology/Oncology Treatment, [place] [address] [place], [place] [address] Diane, Chair 5 Hem Onc Scenery [address] [facility] [place] [address] 10/30/2023 1:00 PM EDT Telemedicine Neurosurgery, [address] [address] Dashawn Haines MD [facility] [place] [address] 11/05/2023 3:25 PM EDT Office Visit Interventional Pain Center, [facility] [address] [place] [address] Wiliam Tam DO [address] [place] [phone] 12/17/2023 10:00 AM EDT Appointment Vascular Lab [address] [address] 12/17/2023 10:30 AM EDT Office Visit Vascular Surg [address] [address] Margarito Cabrera MD [facility] [place] [address] Scheduled Procedures Name Priority Associated Diagnoses Date/Ti [...] this encounter Medical Devices Implanted Type Area Mobile Home Mechanic Device Identifier Shelf Expiration Date Model / Serial / Lot Stent Main Body Xfzh-62-05-Zt - [id number] Implanted:Qty: 1 on 06/10/2014 by Ronal Gallegos MD [place] [facility] Aorta [employer] 04/07/2016 TFFB-24-8 2-ZT / / Graft Iliac Leg Spirlz 91v05kf - [id number] Implanted:Qty: 1 on 06/10/2014 by Ronal Gallegos MD at [place] [facility] Right: Aorta [employer] 10/09/2015 [id number] / / [id number] Description: Graft Iliac Leg Spirlz [id number] - [id number] Implanted:Qty: 1 on 06/10/2014 by Ronal Gallegos MD at [place] [facility] Right: Femoral Artery [employer] 11/07/2016 [id number] / / [id number] Stent Polmer 29mm P3110 - [id number] Implanted:Qty: 1 on 06/10/2014 by Ronal Gallegos MD at [place] [facility] N/A: Aorta JNJ : CORDIS ENDOVASCULAR 07/26/2018 P3110 / / [id number] Codman Orbit Galaxy Coil 2.5mm X 3.5cm Implanted:Qty: 1 on 09/12/2015 by Arik Shin MD at [place] [facility] Left: Head LENORA [employer] LENORA CODMAN 02/26/2017 [id number] / [id number] / [id number] Description:COMPLEX XTRASOFT detachable coil deployed left internal carotid artery Codman Orbit Galaxy Coil 2.5mm X 2.5cm Implanted:Qty: 1 on 09/12/2015 by Arik Shin MD at [place] [facility] Left: Head LENORA [employer] LENORA CODMAN 01/27/2016 [id number] / [id number] / [id number] Description:COMPLEX XTRASOFT detachable coil deployed left internal carotid artery aneurysm Codman Idalou 2 Stent 4mm X 30mm Implanted:Qty: 1 on 09/12/2015 by Arik Shin MD at [place] [facility] Left: Head LENORA & LENORA DEPUY 03/26/2018 [id number] / [id number] / [id number] Description:Vascular reconst ruction device deployed in left internal carotid artery Codman Orbit Galaxy Coil 6mm X 20cm Implanted:Qty: 1 on 09/12/2015 by Arik Shin MD at [place] [facility] Left: Head LENORA [employer] LENORA CODMAN 09/26/2016 [id number] / [id number] / [id number] Description:COMPLEX FILL det achable coil deployed left internal carotid artery aneurysm Codman Orbit Galaxy Coil 4mm X 10cm Implanted:Qty: 1 on 09/12/2015 by Arik Shin MD at [place] [facility] Left: Head L[employer]A [employer] LENORA CODMAN 10/27/2015 [id number] / [id number] / [id number] Description:COMPLEX XTRASOFT detachable coil deployed left internal carotid artery aneurysm Codman Orbit Galaxy Coil 3.5mm X 9cm Implanted:Qty: 1 on 09/12/2015 by Arik Shin MD at [place] [facility] Left: Head LENORA [employer] LENORA CODMAN 12/28/2015 [id number] / [id number] / [id number] Description:COMPLEX XTRASOFT detachable coil deployed left internal carotid artery aneurysm Codman Orbit Galaxy Coil 3mm X 6cm Implanted:Qty: 1 on 09/12/2015 by Arik Shin MD at [place] [facility] Left: Head LENORA & LENORA CODMAN 04/28/2017 [id number] / [id number] / [id number] Description:COMPLEX XTRASOFT detachable coil deployed left internal carotid artery aneurysm Lens Intraoc 21.0 - [id number] - [id number] Implanted:Qty: 1 on 11/08/2020 by Yuri Bradley MD at OR [facility] Left: Eye BAUSCH & LOMB 06/26/2025 [id number] / [id number] / [id number] Lens Intraoc 20.5 - [id number] - [id number] Implanted:Qty: 1 on 11/22/2020 by Yuri Bradley MD at OR [facility] Right: Eye BAUSCH & LOMB 07/27/2025 [id number] / [id number] / [id number] Clip Quick 2.8mm 230cm - [id number] Implanted:Qty: 3 on 03/29/2021 by Luciana Fernandez MD at ENDOSCOPY [facility] [employer] 08/27/2023 HX-202UR. A / / Sureclip 16mm 235cm - [id number] Implanted:Qty: 2 on 05/07/2022 by Luciana Fernandez MD at ENDOSCOPY [facility] Colon MICRO TECH ENDOSCOPY 07/06/2024 [id number] / / Power Port 8fr Sngl Lumen Plas - [id number] Implanted:Qty: 1 on 01/30/2023 by Koko Santiago MD at OR [facility] N/A: Chest CR BARD : PERIPHERAL VASCULAR 07/27/2024 [id number] / / [id number] Power Port 8fr Sngl Lumen Plas - [id number] Implanted:Qty: 1 on 01/30/2023 by Koko Santiago MD at OR [facility] CR BARD : PERIPHERAL VASCULAR [id number] 07/27/2024 [id number] / / [id number] documented as of this encounter Advance Directives [...] and were consensually agreed upon. Care Teams Laboratory Scientist Relationship Specialty Start Date End Date Mauro Watson DO [address] [place] [address] PCP - General Family Medicine 04/13/19 documented as of this encounter
--- OUTSIDE RECORDS SUMMARY | 2024-02-19 09:35 | External Medical Summary | Summary of Care ---
Author Name Unknown Organization [facility] Address [address] [place] [address] Phone [phone] Care Team Providers Care Coach Builder Name Role Phone Mauro Watson DO Primary Care Provider Reason for Visit * Reason Onset Date Comments Information 09/11/2023 Encounter Details Date Type Department Care Team ([facility] st Contact Info) Description 09/11/2023 Telephone Hematology/Oncology Treatment, [place] [address] [place] [address] Lasha Christine MD [address] [place] [address] Information Allergies Active Allergy Reactions Criticality Noted [...] EGFR 72 Lumbar radiculopathy 05/27/2019 Atherosclerosis of [place] co ronary artery of [place] heart with angina pectoris 05/05/2019 History of [...] Enriqueta Souza CRNP Hi, Dr. Bejarano from [facility] spoke with me about his case, [...] [place] [phone] Zeyad Cont[address]ras [address] 200 [facility] [place], [place] [address] 09/12/2023 3:00 PM EDT Office Visit Hematology/Oncology Scenery [facility] [address] [place] [phone] Enriqueta Souza CRNP 400 [facility] [place] [address] 09/13/2023 9:30 AM EDT Hem/Onc Treatment Hematology/Oncology Treatment, [place] [address] [place], [place] [address] Diane, Chair 5 Hem Onc Scenery 200 [facility] [place] [address] 10/30/2023 1:00 PM EDT Telemedicine Neurosurgery, [address] [address] Dashawn Haines MD [facility] [place] [address] 11/05/2023 3:25 PM EDT Office Visit Interventional Pain Center, [facility] [address] [facility] [place] [address] Wiliam Tam DO [address] [facility] [place] [phone] 12/17/2023 10:00 AM EDT Appointment Vascular Lab [address] [address] 12/17/2023 10:30 AM EDT Office Visit Vascular Surg [address] [address] Margarito Cabrera MD [facility] [place] [address] Scheduled Procedures Name Priority Associated Diagnoses Date/Ti [...] this encounter Medical Devices Implanted Type Area Director Design Device Identifier Shelf Expiration Date Model / Serial / Lot Stent Main Body Ubat-24-66-Zt - [id number] Implanted:Qty: 1 on 06/10/2014 by Ronal Gallegos MD at OR [facility] Aorta [employer] 04/07/2016 TFFB-24-8 2-ZT / / Graft Iliac Leg Spirlz [id number] - [id number] Implanted:Qty: 1 on 06/10/2014 by Ronal Gallegos MD at OR [facility] Right: Aorta [employer] 10/09/2015 [id number] / / [id number] Description: Graft Iliac Leg Spirlz [id number] - [id number] Implanted:Qty: 1 on 06/10/2014 by Ronal Gallegos MD at OR [facility] Right: Femoral Artery [employer] 11/07/2016 [id number] / / [id number] Stent Polmer 29mm P3110 - [id number] Implanted:Qty: 1 on 06/10/2014 by Ronal Gallegos MD at OR [facility] N/A: Aorta JNJ : CORDIS ENDOVASCULAR 07/26/2018 [id number] / / [id number] Codman Orbit Galaxy Coil 2.5mm X 3.5cm Implanted:Qty: 1 on 09/12/2015 by Arik Shin MD at OR [facility] Left: Head LENORA & LENORA CODMAN 02/26/2017 [id number] / [id number] / [id number] Description:COMPLEX XTRASOFT detachable coil deployed left internal carotid artery Codman Orbit Galaxy Coil 2.5mm X 2.5cm Implanted:Qty: 1 on 09/12/2015 by Arik Shin MD at OR [facility] Left: Head LENORA [employer] LENORA CODMAN 01/27/2016 [id number] / [id number] / [id number] Description:COMPLEX XTRASOFT detachable coil deployed left internal carotid artery aneurysm Codman [place] 2 Stent 4mm X 30mm Implanted:Qty: 1 on 09/12/2015 by Arik Shin MD at OR [facility] Left: Head LENORA & LENORA DEPUY 03/26/2018 [id number] / [id number] / [id number] Description:Vascular reconst ruction device deployed in left internal carotid artery Codman Orbit Galaxy Coil 6mm X 20cm Implanted:Qty: 1 on 09/12/2015 by Arik Shin MD at OR [facility] Left: Head LENORA [employer] LENORA CODMAN 09/26/2016 [id number] / [id number] / [id number] Description:COMPLEX FILL det achable coil deployed left internal carotid artery aneurysm Codman Orbit Galaxy Coil 4mm X 10cm Implanted:Qty: 1 on 09/12/2015 by Arik Shin MD at OR [facility] Left: Head LENORA & LENORA CODMAN 10/27/2015 [id number] / [id number] / [id number] Description:COMPLEX XTRASOFT detachable coil deployed left internal carotid artery aneurysm Codman Orbit Galaxy Coil 3.5mm X 9cm Implanted:Qty: 1 on 09/12/2015 by Arik Shin MD at OR [facility] Left: Head LENORA & LENORA CODMAN 12/28/2015 [id number] / [id number] / [id number] Description:COMPLEX XTRASOFT detachable coil deployed left internal carotid artery aneurysm Codman Orbit Galaxy Coil 3mm X 6cm Implanted:Qty: 1 on 09/12/2015 by Arik Shin MD at OR [facility] Left: Head LENORA & LENORA CODMAN 04/28/2017 [id number] / [id number] / [id number] Description:COMPLEX XTRASOFT detachable coil deployed left internal carotid artery aneurysm Lens Intraoc 21.0 - [id number] - [id number] Implanted:Qty: 1 on 11/08/2020 by Yuri Bradley MD at OR [facility] Left: Eye BAUSCH & LOMB 06/26/2025 [id number] / [id number] / [id number] Lens Intraoc 20.5 - [id number] - [id number] Implanted:Qty: 1 on 11/22/2020 by Yuri Bradley MD at OR [facility] Right: Eye BAUSCH & LOMB 07/27/2025 [id number] / [id number] / [id number] Clip Quick 2.8mm 230cm - [id number] Implanted:Qty: 3 on 03/29/2021 by Luciana Fernandez MD at ENDOSCOPY [facility] [employer] 08/27/2023 HX-202UR. A / / Sureclip 16mm 235cm - [id number] Implanted:Qty: 2 on 05/07/2022 by Luciana Fernandez MD at ENDOSCOPY [facility] Colon MICRO TECH ENDOSCOPY 07/06/2024 [id number] / / Power Port 8fr Sngl Lumen Plas - [id number] Implanted:Qty: 1 on 01/30/2023 by Koko Santiago MD at OR [facility] N/A: Chest CR BARD : PERIPHERAL VASCULAR 07/27/2024 [id number] / / [id number] Power Port 8fr Sngl Lumen Plas - [id number] Implanted:Qty: 1 on 01/30/2023 by Koko Santiago MD at OR [facility] CR BARD : PERIPHERAL VASCULAR [id number] 07/27/2024 [id number] / / [id number] documented as of this encounter Advance Directives [...] and were consensually agreed upon. Care Teams Coach Builder Relationship Specialty Start Date End Date Mauro Watson DO [address] [place] [address] PCP - General Family Medicine 04/13/19 documented as of this encounter
--- OUTSIDE RECORDS SUMMARY | 2024-02-19 09:35 | External Medical Summary | Summary of Care ---
Author Name Unknown Organization [facility] Address [address] [place] [address] Phone [phone] Care Team Providers Care Mess Attendant Name Role Phone Mauro Watson DO Primary Care Provider Reason for Visit * Reason Comments Follow Up Encounter Details Date Type Department Care Team (Late st Contact Info) Description 09/12/2023 3:00 PM EDT Office Visit Hematology/Oncology [facility] [address] [place] [address] Enriqueta Souza CRNP 400 [facility] [place] [address] Malignant neoplasm of left lung, unspecified [...] EGFR 72 Lumbar radiculopathy 05/27/2019 Atherosclerosis of [place] co ronary artery of [place] heart with angina pectoris 05/05/2019 History of colon polyps 08/12/2018 ACEI/ARB contraindicated 09/21/2016 Carotid aneurysm, left 09/13/2015 Overview: S/p coil embolization Cerebral aneurysm, nonruptured 09/05/2015 AAA (abdominal aortic aneurysm) 06/20/2015 Overview: S/p repair Bilateral carotid artery disease 06/20/2015 Medical home patient encounter 05/19/2014 Hypertriglyceridemia 05/16/2012 CORON ATHEROSCL [place] CORON VESSEL 07/11/2010 Dyslipidemia, goal LDL below [...] Sign Reading Time Taken Comments Blood Pressure 128/84 09/12/2023 2:59 PM EDT Pulse 107 09/12/2023 2:59 PM EDT Temperature 36.4 C (97.6 F) 09/12/2023 2:59 PM ED T Respiratory Rate 17 09/12/2023 2:59 PM EDT Oxygen Saturation 96% 09/12/2023 2:59 PM EDT Inhaled Oxygen Concentration - - Weight 71.7 kg (158 lb) 09/12/2023 2:59 PM EDT Height - - Body Mass Index 24.03 06/06/2023 12:13 PM EST documented in this [...] Progress Notes * Enriqueta Souza CRNP - 09/12/2023 3:00 PM EDT Hematology/Oncology Outpatient Clinic note Geovani Contreras [address] [place] [address] Name: Mp Vaughn Date: 09/12/2023 CHIEF COMPLAINT: [...] the recommendation from Dr. Jose Bejarano from [facility] every 21 days x 8 cycles (03/04/23 - 07/29/2023), Discontinued because of disease progression mainly in the liver. CURRENT TREATMENT: Carboplatin AUC 5 and Pemetrexed every 21 days (08/23/23 - ) Decadron as a part of pre-chemotherapy Folic acid 1 mg every day Vitamin B12 injection 1000 microgram every 9 weekly. Oxycodone for the symptomatic treatment of the right upper quadrant pain. DIAGNOSTIC WORKUP: CT scan of the abdomen [...] OF PRESENT ILLNESS: Mp Vaughn is a 72 year old male with a history as outlined above. Currently here for f/u visit today and consideration for C2D1 of treatment. Patient continues to experience fevers as high as100.5. Consistently around 99. Evenings are worse. Also getting sweating episodes at night. Had severe fatigue after first cycle of chemotherapy that lasted about a week. Also had some achiness in his joints. 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 Still at baseline in his feet. Has been drinking a lot of water. Denies mouth sores or pain. Denies nausea. Taking antiemetics ATC for one week. Took steroids as presc ribed today. Denies rash. Taking folic acid 1 mg daily. Cough is not significant or productive. Feels it is normal for this time of year. Past Medical History: Diagnosis Date AAA (abdominal [...] performed by Arik Shin MD at OR [facility] CATHETER OCCLUSION/EMBOLIZATION,MEDICAL RECORDS ASSISTANT N/A 09/12/2015 TRANSCATHETER PERMANENT ARTERIAL OCCLUSION CENTRAL NERVOUS SYSTEM performed by Arik Shin MD at OR [facility] COLONOSCOPY W/ LESION REMOVAL, SNARE 09/09/2006 adenomatous polyp--repeat 5 years COLONOSCOPY, DIAGNOSTIC (RECTUM) 08/15/2012 adenomatous polyp, diverticulosis, repeat 5 yrs/COLONOSCOPY FLEXIBLE PROXIMAL DIAGNOSTIC performed by Luciana Fernandez MD at ENDOSCOPY [facility] COLONOSCOPY, DIAGNOSTIC (RECTUM) 11/23/2015 adenomatous polyps, diverticulosis, andiodysplastic lesions, repeat 5 yrs/[facility] COLONOSCOPY, DIAGNOSTIC (RECTUM) 11/28/2015 colonic ulcer, diverticulosis/inpt [facility] COLONOSCOPY, DIAGNOSTIC (RECTUM) 03/29/2021 adenomatous polyps, diverticulosis, repeat 1 yr / COLONOSCOPY FLEXIBLE PROXIMAL DIAGNOSTIC performed by Luciana Fernandez MD at ENDOSCOPY [facility] COLONOSCOPY, DIAGNOSTIC (RECTUM) 05/07/2022 benign adenomatous polyps, repeat 6 mo / COLONOSCOPY FLEXIBLE PROXIMAL DIAGNOSTIC performed by Luciana Fernandez MD at ENDOSCOPY [facility] COLONOSCOPY, DIAGNOSTIC (RECTUM) 11/02/2022 resolving ischemic colitis, repeat 9 mo / COLONOSCOPY FLEXIBLE PROXIMAL DIAGNOSTIC performed by Luciana Fernandez MD at ENDOSCOPY [facility] EGD, FLEXIBLE, DIAGNOSTIC 11/23/2015 reflux esophagitis, Schatzki ring, sm /[facility] EGD, FLEXIBLE, DIAGNOSTIC 01/02/2023 hiatal hernia/gastritis/biopsies show mild gastritits of stomach/ESOPHAGOGASTRODUODENOSCOPY (EGD), FLEXIBLE, TRANSORAL, DIAGNOSTIC performed by Jory Sauceda DO at ENDOSCOPY [facility] EGD, W/ENDOSCOPIC US 01/02/2023 multiple metastatic lesions liver/ESOPHAGOGASTRODUODENOSCOPY (EGD), FLEXIBLE, TRANSORAL, ENDOSCOPICULTRASOUND performed by Jory Sauceda DO at ENDOSCOPY [facility] HEMORRHOIDECTOMY, INTERNAL, 2 + COLUMNS 06/28/2000 Internal x 3, Dr Gallego INJECT DX/THER SUBSTANCE INTERLAMINAR LUMBAR/SACRAL W IMAGE GUIDE 11/13/2018 INJECTION SPINE LUMBAR OR SACRAL performed by Deep León DO at [facility] INJECT DX/THER SUBSTANCE INTERLAMINAR LUMBAR/SACRAL W IMAGE GUIDE 11/27/2018 INJECTION SPINE LUMBAR OR SACRAL performed by Deep Anais León DO at OR [facility] INJECT DX/THER SUBSTANCE INTERLAMINAR LUMBAR/SACRAL W IMAGE GUIDE 04/16/2019 INJECTION SPINE LUMBAR OR SACRAL performed by Deep B Cousins, DO at OR [facility] INJECT DX/THER SUBSTANCE [...] performed by Koko Santiago MD at OR [facility] INSERT ARTERY CATHETER THRU SKIN [...] BRANCH performed by Arik Shin MD at [facility] PLACE CATHETER IN ARTERIES N/A 09/12/2015 CATHETER PLACEMENT, BRACHIOCEPHALIC, THIRD ORDER BRANCH performed by Arik Shin MD at [facility] REMOVE CATARACT, INSERT LENS PROSTH Left 11/08/2020 left EXTRACAPSULAR CATARACT REMOVAL WITH INTRAOCULAR LENS performed by Yuri Bradley MD at OR [facility] REMOVE CATARACT, INSERT LENS PROSTH Right 11/22/2020 right EXTRACAPSULAR CATARACT REMOVAL WITH INTRAOCULAR LENS performed by Yuri Bradley MD at OR [facility] VERTEBRAL ARTERY CATHETER PLACEMENT Bilateral 08/20/2016 CATHETER PLACEMENT VERTEBRAL ARTERY, performed by Arik Shin MD at OR [facility] Social History Socioeconomic History Marital status: Spouse name: Not on file Number of children: Not on file Years of education: Not on file Highest education level: Not on file Occupational History Not on file Tobacco Use Smoking status: Former Current packs/day: 0.00 Average packs/day: 1.5 packs/day for 35.0 years (52.5 ttl pk-yrs) Types: Cigarettes Start date: 06/10/1979 Quit date: 06/10/2014 Years since quittin.2 Smokeless tobacco: Never Tobacco comments: quit in 2014 Vaping Use Vaping Use: Never used Substance and Sexual Activity Alcohol use: Yes [...] mouth every 8 hours if needed for [id number] Tablet 2 Lidocaine-Prilocaine 2.5-2.5 % External Cream [...] needed for Pain, Moderate. 30 Tablet 0 Folic Acid 1 MG Oral Tablet Take 1 Tablet by mouth in the morning. 30 Tablet 3 dexAMETHasone 4 MG Oral Tablet One tablet twice a day for 3 days only, starting one day before the chemotherapy. 36 Tablet 1 No current facility-administered medications for this visit. REVIEW OF SYSTEMS: See HPI - otherwise negative OBJECTIVE: Filed Vitals: 09/12/23 1459 BP: 128/84 Pulse: 107 Resp: 17 Temp: 36.4 C (97.6 F) TempSrc: Tympanic SpO2: 96% Weight: 71.7 kg (158 lb) Wt Readings from Last 5 Encounters: 09/12/23 71.7 kg (158 lb) 08/22/23 71.7 kg (158 lb) 08/13/23 75.1 kg (165 lb 8 oz) 07/29/23 79.2 kg (174 lb 9.6 oz) 07/22/23 78.5 kg (173 lb) PHYSICAL EXAM: ECOG: Performance Status 1 [...] +hepatomegaly Neurologic: Normal - Grossly intact LABS: Results for orders placed or performed in visit on 09/12/23 MAGNESIUM Result Value Ref Range Magnesium 2.1 1.5 - 2.6 mg/dL COMPREHENSIVE METABOLIC PANEL Result Value Ref Range BUN 15 6 - 20 mg/dL Creatinine 1.1 0.6 - 1.2 mg/dL Estimated Glomerular Filtration Rate 72 >=60 mL/min Sodium 135 135 - 146 mmol/L Potassium 4.7 3.5 - 5.1 mmol/L Chloride 101 98 - 107 mmol/L CO2 20 (L) 22 - 32 mmol/L Anion Gap 14 7 - 15 mmol/L Glucose 199 (H) 70 - 120 mg/dL Albumin 3.6 (L) 3.8 - 5.0 g/dL AST 72 (H) 10 - 50 U/L Alkaline Phosphatase 268 (H) 35 - 130 U/L Bilirubin, Total 0.6 <=1.2 mg/dL Calcium 9.6 8.4 - 10.2 mg/dL Protein 7.5 6.0 - 8.3 g/dL ALT 43 10 - 50 U/L CBC Result Value Ref Range WBC 7.92 4.00 - 10.80 K/uL RBC 3.70 4.50 - 5.25 M/uL HGB 11.2 (L) 14.0 - 16.8 g/dL HCT 35.7 (L) 40.0 - 48.4 % MCV 96.5 82.0 - 99.5 fL MCH 30.3 27.0 - 34.0 pg MCHC 31.4 32.0 - 36.0 g/dL RDW 18.2 11.5 - 15.5 % PLT 214 140 - 400 K/uL MPV 10.4 6.6 - 11.1 fL DIFFERENTIAL, AUTOMATED Result Value Ref Range WBC 7.92 4.00 - 10.80 K/uL Neutrophils % 73.1 40.0 - 75.0 % Lymphocytes % 17.8 (L) 18.0 - 42.0 % Monocytes % 8.8 1.0 - 11.0 % Eosinophils % 0.0 0.0 - 6.0 % Basophils % 0.3 0.0 - 2.0 % Absolute Neutrophils 5.79 1.80 - 7.70 K/uL Absolute Lymphocytes 1.41 1.00 - 4.80 K/ul Absolute Monocytes 0.70 0.00 - 1.10 K/uL Absolute Eosinophils 0.00 0.00 - 0.70 K/uL Absolute Basophils 0.02 0.00 - 0.20 K/uL DIFFERENTIAL, TECHNOLOGIST REVIEW Result Value Ref Range nRBCs *Note: Due to a large number of results and/or encounters for the requested time period, some results have not been displayed. A complete set of results can be found in Results Review. IMAGING: Chest X ray 09/12/23: IMPRESSION Port-A-Cath [...] carboplatin and not planning to continue immunotherapy. Received first cycle 08/13/23. Overall seemed to tolerate well other than significant fatigue that lasted for approximately one week. No other signs or symptoms of significant toxicity noted. Is being considered for a clinical trial at [facility] and has a telemedicine appointment with them next week to discuss. Lab results reviewed: Stable anemia present with Hgb of 11.2 LFTs trending down! AST 72, alk phos 268, ALT WNL CEA pending - will follow Pain in RUQ has resolved! After discussion with patient it was decided to move forward with C2 of Alimta and Carboplatin tomorrow as scheduled. RTC in three weeks with provider for chemo return ALMITA Doty documented in this encounter Nursing Notes * Amy Cornelius, MED ASSIST - 09/12/2023 3:02 PM EDT Patient identifed by name and [...] it for you? ALREADY ACTIVE Filed Vitals: 09/12/23 1459 BP: 128/84 Pulse: 107 Resp: 17 Temp: 36.4 C (97.6 F) TempSrc: Tympanic SpO2: 96% Weight: 71.7 kg (158 lb) Patient was instructed to not get [...] Team (Late st Contact Info) Description 09/13/2023 9:30 AM EDT Hem/Onc Treatment Hematology/Oncology Treatment, [place] [address] [place] [phone] Park, Chair 5 Hem Onc Scenery [address] [place] [address] 10/30/2023 1:00 PM EDT Telemedicine Neurosurgery, [place] [address] [place] [address] Dashawn Haines MD [address] [place] [address] 11/05/2023 3:25 PM EDT Office Visit Interventional [facility] Center, [facility] [place] [address] Wiliam Tam DO [address] [place] [phone] 12/17/2023 10:00 AM EDT Appointment Vascular Lab [place] [address] [place] [address] 12/17/2023 10:30 AM EDT Office Visit Vascular Surg [place] [address] [place] [address] Margarito Cabrera MD [facility] [place] [address] Scheduled Procedures Name Priority Associated Diagnoses Date/Ti [...] Colorectal Cancer Screening 11/03/2023 GFR 09/11/2024 09/12/2023, 04/2 08/2023, 08/13/2023, Additional history exists Albumin/Creatinine Ratio [...] this encounter Medical Devices Implanted Type Area Site Technician Device Identifier Shelf Expiration Date Model / Serial / Lot Stent Main Body Howv-45-08-Zt - [id number] Implanted:Qty: 1 on 06/10/2014 by Ronal Gallegos MD at OR [facility] Aorta [employer] 04/07/2016 TFFB-24-8 2-ZT / / Graft Iliac Leg Spirlz [id number] - [id number] Implanted:Qty: 1 on 06/10/2014 by Ronal Gallegos MD at OR [facility] Right: Aorta [employer] 10/09/2015 [id number] / / [id number] Description: Graft Iliac Leg Spirlz 26k30qm - [id number] Implanted:Qty: 1 on 06/10/2014 by Ronal Gallegos MD at OR [facility] Right: Femoral Artery [employer] 11/07/2016 [id number] / / [id number] Stent Polmer 29mm P3110 - [id number] Implanted:Qty: 1 on 06/10/2014 by Ronal Gallegos MD at OR [facility] N/A: Aorta JNJ : CORDIS ENDOVASCULAR 07/26/2018 P3110 / / [id number] Codman Orbit Galaxy Coil 2.5mm X 3.5cm Implanted:Qty: 1 on 09/12/2015 by Arik Shin MD at OR [facility] Left: Head LEN[employer]A [employer] 02/26/2017 [id number] / [id number] / [id number] Description:COMPLEX XTRASOFT detachable coil deployed left internal carotid artery Codman Orbit Galaxy Coil 2.5mm X 2.5cm Implanted:Qty: 1 on 09/12/2015 by Arik Shin MD at OR [facility] Left: Head LENORA [employer] LENORA CODMAN 01/27/2016 [id number] / [id number] / [id number] Description:COMPLEX XTRASOFT detachable coil deployed left internal carotid artery aneurysm Codman [place] 2 Stent 4mm X 30mm Implanted:Qty: 1 on 09/12/2015 by Arik Shin MD at OR [facility] Left: Head LENORA [employer] LENORA DEPUY 03/26/2018 [id number] / [id number] / [id number] Description:Vascular reconst ruction device deployed in left internal carotid artery Codman Orbit Galaxy Coil 6mm X 20cm Implanted:Qty: 1 on 09/12/2015 by Arik Shin MD at OR [facility] Left: Head L[employer]A [employer] LENORA CODMAN 09/26/2016 [id number] / [id number] / [id number] Description:COMPLEX FILL det achable coil deployed left internal carotid artery aneurysm Codman Orbit Galaxy Coil 4mm X 10cm Implanted:Qty: 1 on 09/12/2015 by Arik Shin MD at OR [facility] Left: Head LENORA [employer] LENORA CODMAN 10/27/2015 [id number] / [id number] / [id number] Description:COMPLEX XTRASOFT detachable coil deployed left internal carotid artery aneurysm Codman Orbit Galaxy Coil 3.5mm X 9cm Implanted:Qty: 1 on 09/12/2015 by Arik Shin MD at OR [facility] Left: Head LENORA [employer] LENORA CODMAN 12/28/2015 [id number] / [id number] / [id number] Description:COMPLEX XTRASOFT detachable coil deployed left internal carotid artery aneurysm Codman Orbit Galaxy Coil 3mm X 6cm Implanted:Qty: 1 on 09/12/2015 by Arik Shin MD at OR [facility] Left: Head LENORA & LENORA CODMAN 04/28/2017 [id number] / [id number] / [id number] Description:COMPLEX XTRASOFT detachable coil deployed left internal carotid artery aneurysm Lens Intraoc 21.0 - [id number] - [id number] Implanted:Qty: 1 on 11/08/2020 by Yuri Bradley MD at OR [facility] Left: Eye BAUSCH & LOMB 06/26/2025 [id number] / [id number] Lens Intraoc 20.5 - [id number] - [id number] Implanted:Qty: 1 on 11/22/2020 by Yuri Bradley MD at OR [facility] Right: Eye BAUSCH & LOMB 07/27/2025 [id number] / [id number] Clip Quick 2.8mm 230cm - [id number] Implanted:Qty: 3 on 03/29/2021 by Luciana Fernandez MD at ENDOSCOPY [facility] [employer] 08/27/2023 HX-202UR. A / / Sureclip 16mm 235cm - [id number] Implanted:Qty: 2 on 05/07/2022 by Luciana Fernandez MD at ENDOSCOPY [facility] Colon MICRO TECH ENDOSCOPY 07/06/2024 [id number] / / Power Port 8fr Sngl Lumen Plas - [id number] Implanted:Qty: 1 on 01/30/2023 by Koko Santigao MD at OR [facility] N/A: Chest CR BARD : PERIPHERAL VASCULAR 07/27/2024 [id number] / / [id number] Power Port 8fr Sngl Lumen Plas - [id number] Implanted:Qty: 1 on 01/30/2023 by Koko Santiago MD at [facility] CR BARD : PERIPHERAL VASCULAR [id number] 07/27/2024 [id number] / / [id number] documented as of this encounter Visit Diagnoses [...] and were consensually agreed upon. Care Teams Mess Attendant Relationship Specialty Start Date End Date Mauro Watson DO [address] [place] [address] PCP - General Family Medicine 04/13/19 documented as of this encounter
--- OUTSIDE RECORDS SUMMARY | 2024-02-19 09:35 | External Medical Summary ---
Author Name Unknown Address Unknown Organization K09:[facility] [address] [place] [address] Laboratory Report Ordering Provider Test Date Status ANN KLEIN 09/12/2023 14:08:14 Final Observation Date Value Abnormality Reference (Units ) Status BUN 09/12/2023 14:08:14 15 6-20 (mg/dL) Final Creatinine 09/12/2023 14:08:14 1.1 0.6-1.2 (mg/dL) Final Glomerular filtration rate/1.73 sq M.predicted [Volume Rate/Area] in Serum, Plasma or Blood by Creatinine-based formula (CKD-EPI) 09/12/2023 14:08:14 72 >=60 (mL/min) Final eGFR is calculated based on the CKD-EPI 2020 equation Sodium 09/12/2023 14:08:14 135 135-146 (m mol/L) Final Potassium 09/12/2023 14:08:14 4.7 3.5-5.1 (m mol/L) Final Cl 09/12/2023 14:08:14 101 98-107 (mm ol/L) Final CO2 09/12/2023 14:08:14 20 Below low normal 22- 32 (mmol/L) Final Anion gap 09/12/2023 14:08:14 14 7-15 (mmol /L) Final Glucose 09/12/2023 14:08:14 199 Above high normal 70 -120 (mg/dL) Final Albumin 09/12/2023 14:08:14 3.6 Below low normal 3.8 -5.0 (g/dL) Final AST (Aspartate aminotransferase) 09/12/2023 14:08:14 72 Above high normal 10-50 (U/L) Final Alk Phos 09/12/2023 14:08:14 268 Above high normal 35 -130 (U/L) Final Bilirubin, Total 09/12/2023 14:08:14 0.6 <=1 .2 (mg/dL) Final Calcium 09/12/2023 14:08:14 9.6 8.4-10.2 ( mg/dL) Final Protein 09/12/2023 14:08:14 7.5 6.0-8.3 (g /dL) Final ALT (Alanine aminotransferase) 09/12/2023 14:08:14 43 10-50 (U/L) Efrain mathur Performing Location [facility] [address] [place] [address]
--- OUTSIDE RECORDS SUMMARY | 2024-02-19 09:35 | External Medical Summary | Summary of Care ---
Author Name Unknown Organization [facility] Address [address] [place] [address] Phone [phone] Care Team Providers Care Service Mechanic Name Role Phone Mauro Watson DO Primary Care Provider Reason for Visit * Reason Onset Date Comments Information 09/11/2023 Encounter Details Date Type Department Care Team ([facility] st Contact Info) Description 09/11/2023 Telephone Hematology/Oncology Treatment, [place] [address] [place] [address] Lasha Christine MD [address] [place] [address] Information Allergies Active Allergy Reactions Criticality Noted [...] EGFR 72 Lumbar radiculopathy 05/27/2019 Atherosclerosis of [place] co ronary artery of [place] heart with angina pectoris 05/05/2019 History of [...] Encounter - Tia Shah OSA - 09/12/2023 10:47 AM EDT Apt added * Telephone Encounter - Lorri Matias RN [...] Per Dr Christine: "Lasha Christine MD P [facility] Hem/Onc Nurse Pool/Class; Enriqueta Souza CRNP Hi, Dr. Bejarano from [facility] spoke with me about his case, [...] Team (Late st Contact Info) Description 09/12/2023 2:00 PM EDT Imaging Radiology [address] [place] [address] 09/12/2023 2:10 PM EDT Laboratory Laboratory [facility] [address] [facility] [place] [phone] Diane [facility] [address] [facility] [place] [address] 09/12/2023 3:00 PM EDT Office Visit Hematology/Oncology [address] [place] [phone] Enriqueta Souza CRNP [address] [place] [address] 09/13/2023 9:30 AM EDT Hem/Onc Treatment Hematology/Oncology Treatment, [place] [address] [facility] [place] [phone] Diane, Chair 5 Hem Onc [address] [place] [address] 10/30/2023 1:00 PM EDT Telemedicine Neurosurgery, [place] [address] [place] [address] Dashawn Haines MD [address] [place] [address] 11/05/2023 3:25 PM EDT Office Visit Interventional Pain Center, [facility] [address] [place] [address] Wiliam Tam, [address] [place] [phone] 12/17/2023 10:00 AM EDT Appointment Vascular Lab [facility] [address] [place] [address] 12/17/2023 10:30 AM EDT Office Visit Vascular Surg [facility] [address] [place] [address] Margarito Cabrera MD [address], [place] [phone] Scheduled Procedures Name Priority Associated Diagnoses Date/Ti [...] this encounter Medical Devices Implanted Type Area Production Broaching Machine Operator Device Identifier Shelf Expiration Date Model / Serial / Lot Stent Main Body Jmbu-73-49-[id number] - [id number] Implanted:Qty: 1 on 06/10/2014 by Ronal Gallegos MD at OR [facility] Aorta [employer] 04/07/2016 TFFB-24-8 2-ZT / / Graft Iliac Leg Spirlz 65f35mn - [id number] Implanted:Qty: 1 on 06/10/2014 by Ronal Gallegos MD at OR [facility] Right: Aorta [employer] 10/09/2015 [id number] / / [id number] Description: Graft Iliac Leg Spirlz 90p18sj - [id number] Implanted:Qty: 1 on 06/10/2014 by Ronal Gallegos MD at OR [facility] Right: Femoral Artery [employer] 11/07/2016 [id number] / / [id number] Stent Polmer 29mm P3110 - [id number] Implanted:Qty: 1 on 06/10/2014 by Ronal Gallegos MD at OR [facility] N/A: Aorta JNJ : CORDIS ENDOVASCULAR 07/26/2018 [id number] / / [id number] Codman Orbit Galaxy Coil 2.5mm X 3.5cm Implanted:Qty: 1 on 09/12/2015 by Arik Shin MD at OR [facility] Left: Head LENORA & LENORA CODMAN 02/26/2017 [id number] / [id number] / [id number] Description:COMPLEX XTRASOFT detachable coil deployed left internal carotid artery Codman Orbit Galaxy Coil 2.5mm X 2.5cm Implanted:Qty: 1 on 09/12/2015 by Arik Shin MD at OR [facility] Left: Head LENORA & LENORA CODMAN 01/27/2016 [id number] / [id number] / [id number] Description:COMPLEX XTRASOFT detachable coil deployed left internal carotid artery aneurysm Codman Veyo 2 Stent 4mm X 30mm Implanted:Qty: 1 on 09/12/2015 by Arik Shin MD at OR [facility] Left: Head LENORA & LENORA DEPUY 03/26/2018 [id number] / [id number] / [id number] Description:Vascular reconst ruction device deployed in left internal carotid artery Codman Orbit Galaxy Coil 6mm X 20cm Implanted:Qty: 1 on 09/12/2015 by Arik Shin MD at OR [facility] Left: Head LENORA & LENORA [facility] 09/26/2016 [id number] / [id number] / [id number] Description:COMPLEX FILL det achable coil deployed left internal carotid artery aneurysm Codman Orbit Galaxy Coil 4mm X 10cm Implanted:Qty: 1 on 09/12/2015 by Arik Shin MD at OR [facility] Left: Head LENORA & LENORA CODMAN 10/27/2015 [id number] / [id number] / [id number] Description:COMPLEX XTRASOFT detachable coil deployed left internal carotid artery aneurysm Codman Orbit Galaxy Coil 3.5mm X 9cm Implanted:Qty: 1 on 09/12/2015 by Arik Shin MD at OR [facility] Left: Head LENORA & LENORA CODMAN 12/28/2015 [id number] / [id number] / [id number] Description:COMPLEX XTRASOFT detachable coil deployed left internal carotid artery aneurysm Codman Orbit Galaxy Coil 3mm X 6cm Implanted:Qty: 1 on 09/12/2015 by Arik Shin MD at OR [facility] Left: Head LENORA & LENORA CODMAN 04/28/2017 [id number] / [id number] / [id number] Description:COMPLEX XTRASOFT detachable coil deployed left internal carotid artery aneurysm Lens Intraoc 21.0 - [id number] - [id number] Implanted:Qty: 1 on 11/08/2020 by Yuri Bradley MD at [facility] Left: Eye BAUSCH & LOMB 06/26/2025 [id number] / [id number] / [id number] Lens Intraoc 20.5 - [id number] - [id number] Implanted:Qty: 1 on 11/22/2020 by Yuri Bradley MD at OR [facility] Right: Eye BAUSCH & LOMB 07/27/2025 [id number] / [id number] / [id number] Clip Quick 2.8mm 230cm - [id number] Implanted:Qty: 3 on 03/29/2021 by Luciana Fernandez MD at ENDOSCOPY [facility] [employer] 08/27/2023 HX-202UR. A / / Sureclip 16mm 235cm - [id number] Implanted:Qty: 2 on 05/07/2022 by Luciana Fernandez MD at ENDOSCOPY [facility] Colon MICRO TECH ENDOSCOPY 07/06/2024 [id number] / / Power Port 8fr Sngl Lumen Plas - [id number] Implanted:Qty: 1 on 01/30/2023 by Koko Santiago MD at OR [facility] N/A: Chest CR BARD : PERIPHERAL VASCULAR 07/27/2024 [id number] / / [id number] Power Port 8fr Sngl Lumen Plas - [id number] Implanted:Qty: 1 on 01/30/2023 by Koko Santiago MD at OR [facility] CR BARD : PERIPHERAL VASCULAR [id number] 07/27/2024 [id number] / / [id number] documented as of this encounter Advance Directives [...] and were consensually agreed upon. Care Teams Service Mechanic Relationship Specialty Start Date End Date Mauro Watson DO [address] [place] [address] PCP - General Family Medicine 04/13/19 documented as of this encounter
--- OUTSIDE RECORDS SUMMARY | 2024-02-19 09:35 | External Medical Summary ---
Author Name Unknown Address Unknown Organization K09:[facility] [place] [address] Laboratory Report Ordering Provider Test Date Status ANN KLEIN 09/12/2023 14:08:14 Final Observation Date Value Abnormality Reference (Units ) Status Magnesium 09/12/2023 14:08:14 2.1 1.5-2.6 (m g/dL) Final Performing Location [facility] [place] [address]
--- OUTSIDE RECORDS SUMMARY | 2024-02-19 09:35 | External Medical Summary ---
Author Name Unknown Address Unknown Organization K01:[facility] [address] [address] [facility] [address] Laboratory Report Ordering Provider Test Date Status ANN KLEIN 09/12/2023 14:08:14 Final Observation Date Value Abnormality Reference (Units ) Status TSH 09/12/2023 14:08:14 0.44 0.27-4.20 (uIU/mL) Final Performing Location [facility] - [address] [facility] [address]
--- OUTSIDE RECORDS SUMMARY | 2024-02-19 09:35 | External Medical Summary | Summary of Care ---
Author Name Unknown Organization [facility] Address [address] [place] [address] Phone [phone] Care Team Providers Care Supervisor Special Effects Name Role Phone Mauro Watson DO Primary Care Provider Reason for Visit * Reason Comments Outpatient Testing Encounter Details Date Type Department Care Team (Latest Contact Info) Description 09/12/2023 2:10 PM EDT Laboratory Laboratory [facility] [address] [place] [phone] [facility] [address] [place] [address] Cholangiocarcinoma (HCC); Encounter for antineoplastic chemotherapy; Metastatic [...] EGFR 72 Lumbar radiculopathy 05/27/2019 Atherosclerosis of [place] co ronary artery of [place] heart with angina pectoris 05/05/2019 History of colon polyps 08/12/2018 ACEI/ARB contraindicated 09/21/2016 Carotid aneurysm, left 09/13/2015 Overview: S/p coil embolization Cerebral aneurysm, nonruptured 09/05/2015 AAA (abdominal aortic aneurysm) 06/20/2015 Overview: S/p repair Bilateral carotid artery disease 06/20/2015 Medical home patient encounter 05/19/2014 Hypertriglyceridemia 05/16/2012 CORON ATHEROSCL TRIBE CORON VESSEL 07/11/2010 Dyslipidemia, goal LDL below [...] Upcoming Encounters Date Type Department Care Team (Latest Contact Info) Description 09/12/2023 3:00 PM EDT Office Visit Hematology/Oncology [facility] [address] [facility] [phone] Enriqueta Souza CRNP [address] [place] [address] PENDING VISIT DRAFT 09/13/2023 9:30 AM EDT Hem/Onc Treatment Hematology/Oncology Treatment, [place] 200 [place] [phone] Diane, Chair 5 Hem On[address] [place] [address] 10/30/2023 1:00 PM EDT Telemedicine Neurosurgery, [place] [address] [place] [address] Dashawn Haines MD [address] [place] [address] 11/05/2023 3:25 PM EDT Office Visit Interventional Pain Center, [facility] [address] [place] [address] Wiliam Tam DO [address] [place] [phone] 12/17/2023 10:00 AM EDT Appointment Vascular Lab [place] [address] [place] [address] 12/17/2023 10:30 AM EDT Office Visit Vascular Surg [facility] [address] [place] [address] Margarito Cabrera MD [address] [place] [address] Pending Results Name Type Priority Associated Diagnoses Date /Time CEA Lab STAT Cholangiocarcinoma (HCC) Encounter for antineoplastic chemotherapy 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) Other abnormal tumor markers 09/12/2023 2:08 PM EDT TSH WITH FREE T4 IF INDICATED Lab STAT Cholangiocarcinoma (HCC) Encounter for antineoplastic chemotherapy 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) Other abnormal tumor markers Encounter for long-term (current) use of medications 09/12/2023 2:08 PM EDT MAGNESIUM Lab STAT Cholangiocarcinoma (HCC) Encounter for antineoplastic chemotherapy 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) Other abnormal tumor markers 09/12/2023 2:08 PM EDT COMPREHENSIVE METABOLIC PANEL Lab STAT Cholangiocarcinoma (HCC) Encounter for antineoplastic chemotherapy 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) Other abnormal tumor markers 09/12/2023 2:08 PM EDT CBC WITH WBC DIFFERENTIAL Lab STAT Cholangiocarcinoma (HCC) Encounter for antineoplastic chemotherapy 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) Other abnormal tumor markers 09/12/2023 2:08 PM EDT CBC Lab STAT Cholangiocarcinoma (HCC) Encounter for antineoplastic chemotherapy 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) Other abnormal tumor markers 09/12/2023 2:08 PM EDT DIFFERENTIAL, AUTOMATED Lab STAT Cholangiocarcinoma (HCC) Encounter for antineoplastic chemotherapy 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) Other abnormal tumor markers 09/12/2023 2:08 PM EDT Scheduled Procedures Name Priority Associated [...] this encounter Medical Devices Implanted Type Area Oracle Endeca Consultant Device Identifier Shelf Expiration Date Model / Serial / Lot Stent Main Body Vtsc-17-33-Zt - [id number] Implanted:Qty: 1 on 06/10/2014 by Ronal Gallegos MD at OR [facility] Aorta [employer] 04/07/2016 TFFB-24-8 2-ZT / / Graft Iliac Leg Spirlz 65l79ne - [id number] Implanted:Qty: 1 on 06/10/2014 by Ronal Gallegos MD at OR [facility] Right: Aorta [employer] 10/09/2015 [id number] / / [id number] Description: Graft Iliac Leg Spirlz 65k45ie - [id number] Implanted:Qty: 1 on 06/10/2014 by Ronal Gallegos MD at OR [facility] Right: Femoral Artery [employer] 11/07/2016 [id number] / / [id number] Stent Polmer 29mm P3110 - [id number] Implanted:Qty: 1 on 06/10/2014 by Ronal Gallegos MD at OR [facility] N/A: Aorta JNJ : CORDIS ENDOVASCULAR 07/26/2018 P3110 / / [id number] Codman Orbit Galaxy Coil 2.5mm X 3.5cm Implanted:Qty: 1 on 09/12/2015 by Arik Shin MD at OR [facility] Left: Head LENORA [employer] LENORA CODMAN 02/26/2017 [id number] / [id number] / [id number] Description:COMPLEX XTRASOFT detachable coil deployed left internal carotid artery Codman Orbit Galaxy Coil 2.5mm X 2.5cm Implanted:Qty: 1 on 09/12/2015 by Arik Shin MD at OR [facility] Left: Head LENORA [employer] LENORA CODMAN 01/27/2016 [id number] / [id number] / [id number] Description:COMPLEX XTRASOFT detachable coil deployed left internal carotid artery aneurysm Codman Chevak 2 Stent 4mm X 30mm Implanted:Qty: 1 on 09/12/2015 by Arik Shin MD at OR [facility] Left: Head LENORA [employer] LENORA DEPUY 03/26/2018 [id number] / [id number] / [id number] Description:Vascular reconst ruction device deployed in left internal carotid artery Codman Orbit Galaxy Coil 6mm X 20cm Implanted:Qty: 1 on 09/12/2015 by Arik Shin MD at OR [facility] Left: Head LENORA [employer] LENORA CODMAN 09/26/2016 [id number] / [id number] / [id number] Description:COMPLEX FILL det achable coil deployed left internal carotid artery aneurysm Codman Orbit Galaxy Coil 4mm X 10cm Implanted:Qty: 1 on 09/12/2015 by Arik Shin MD at OR [facility] Left: Head LENORA [employer] LENORA CODMAN 10/27/2015 [id number] / [id number] / [id number] Description:COMPLEX XTRASOFT detachable coil deployed left internal carotid artery aneurysm Codman Orbit Galaxy Coil 3.5mm X 9cm Implanted:Qty: 1 on 09/12/2015 by Arik Shin MD at OR [facility] Left: Head LENORA [employer] LENORA CODMAN 12/28/2015 [id number] / [id number] / [id number] Description:COMPLEX XTRASOFT detachable coil deployed left internal carotid artery aneurysm Codman Orbit Galaxy Coil 3mm X 6cm Implanted:Qty: 1 on 09/12/2015 by Arik Shin MD at OR [facility] Left: Head LENORA & LENORA CODMAN 04/28/2017 [id number] / [id number] / [id number] Description:COMPLEX XTRASOFT detachable coil deployed left internal carotid artery aneurysm Lens Intraoc 21.0 - [id number] - [id number] Implanted:Qty: 1 on 11/08/2020 by Yuri Bradley MD at OR [facility] Left: Eye BAUSCH & LOMB 06/26/2025 [id number] / [id number] / [id number] Lens Intraoc 20.5 - [id number] - [id number] Implanted:Qty: 1 on 11/22/2020 by Yuri Bradley MD at OR [facility] Right: Eye BAUSCH & LOMB 07/27/2025 [id number] / [id number] / [id number] Clip Quick 2.8mm 230cm - [id number] Implanted:Qty: 3 on 03/29/2021 by Luciana Fernandez MD at ENDOSCOPY [facility] [employer] 08/27/2023 HX-202UR. A / / Sureclip 16mm 235cm - [id number] Implanted:Qty: 2 on 05/07/2022 by Luciana Fernandez MD at ENDOSCOPY [facility] Colon MICRO TECH ENDOSCOPY 07/06/2024 [id number] / / Power Port 8fr Sngl Lumen Plas - [id number] Implanted:Qty: 1 on 01/30/2023 by Koko Santiago MD at OR [facility] N/A: Chest CR BARD : PERIPHERAL VASCULAR 07/27/2024 [id number] / / [id number] Power Port 8fr Sngl Lumen Plas - [id number] Implanted:Qty: 1 on 01/30/2023 by Koko Santiago MD at OR [facility] CR BARD : PERIPHERAL VASCULAR [id number] 07/27/2024 [id number] / / [id number] documented as of this encounter Visit Diagnoses Diagnosis Cholangiocarcinoma (HCC) Malignant neoplasm of intrahepatic bile ducts Encounter for antineoplastic chemotherapy 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) Other abnormal tumor markers Encounter for long-term (current) use of medications Encounter for long-term (current) use of other medications documented in this encounter Advance Directives Latest [...] were consensually agreed upon. Care Teams Supervisor Special Effects Relationship Specialty Start Date End Date Mauro Watson DO [address] [place] [address] PCP - General Family Medicine 04/13/19 documented as of this encounter
--- OUTSIDE RECORDS SUMMARY | 2024-02-19 09:36 | External Medical Summary | Summary of Care ---
Author Name Unknown Organization [facility] Address [address] [place] [address] Phone [phone] Care Team Providers Care Office Chair Assembler Name Role Phone Mauro Watson DO Primary Care Provider Reason for Visit * Reason Comments Chemotherapy Alimta/Carboplatin * Episode Based Medications (Routine) - Authorized Specialty Diagnoses / Procedures Referred By Contulises t Referred To Contact Diagnoses Encounter for antineoplastic chemotherapy 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) Malignant neoplasm of left lung, unspecified part of lung (HCC) Procedures RI INJ. PEMETREXED NOS 10MG RI CARBOPLATIN INJECTION RI FOSAPREPITANT INJECTION Lasha Christine MD [address] [place] [address] Anc Hem/Onc [address] [address] Referral ID Status Reason Start Date Expiration Date V isits Requested Visits Authorized [id number] Authorized 08/22/2023 04/28/2099 999 [id number] Encounter Details Date Type Department Care Team (Latest Contact Info) Description 08/23/2023 9:45 AM EDT Hem/Onc Treatment Hematology/Oncolog y Treatment, [address] [phone] Diane Chair 2 Hem Onc [address] [place] [address] Encounter for antineoplastic chemotherapy*; 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); Malignant neoplasm of left lung, unspecified part of lung (HCC) Allergies Active Allergy Reactions Criticality Noted Date Comments Aspirin Bleeding High 11/26/2011 Significant hemorroidal bleed on aspirin,high doses Duloxetine Hcl Hypertension 01/26/2020 documented as of this encounter (statuses as of 09/06/2023) Medications Medication Sig Dispensed Refills Start Date [...] as of this encounter (statuses as of 09/06/2023) Active Problems Problem Noted Date Diagnosed Date Malignant neoplasm of left lung 08/23/2023 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 01/21/2023 Encounter for antineoplastic chemotherapy 2022 Medical marijuana use 08/26/2021 CKD (chronic kidney disease), stage II 2 Overview: EGFR 72 Lumbar radiculopathy 05/27/2019 Atherosclerosis of [place] co ronary artery of [place] heart with angina pectoris 05/05/2019 History of colon polyps 08/12/2018 ACEI/ARB contraindicated 09/21/2016 Carotid aneurysm, left 09/13/2015 Overview: S/p coil embolization Cerebral aneurysm, nonruptured 09/05/2015 AAA (abdominal aortic aneurysm) 06/20/2015 Overview: S/p repair Bilateral carotid artery disease 06/20/2015 Medical home patient encounter 05/19/2014 Hypertriglyceridemia 05/16/2012 CORON ATHEROSCL TRIBAL CORON VESSEL 07/11/2010 Dyslipidemia, goal LDL below [...] as of this encounter (statuses as of 09/06/2023) Resolved Problems Problem Noted Date Diagnosed Date [...] as of this encounter (statuses as of 09/06/2023) Immunizations Name Administration Dates Next Due COVID-19 [...] Sign Reading Time Taken Comments Blood Pressure 130/76 08/23/2023 11:04 AM EDT Pulse 79 08/23/2023 11:04 AM EDT Temperature 36.3 C (97.4 F) 08/23/2023 11:04 AM E DT Respiratory Rate 18 08/23/2023 11:04 AM EDT Oxygen Saturation 94% 08/23/2023 11:04 AM EDT Inhaled Oxygen Concentration - - [...] Nursing Notes * Niecy Levin RN - 08/23/2023 12:57 PM EDT Goals: Patient will remain free [...] condition and denied any further needs. * Lauryn Watson LPN - 08/23/2023 12:23 PM EDT Vitamin B12 1,000mcg administered IM into the left deltoid muscle per standing order. Patient tolerated injection * Belen Sheridan RN - 08/23/2023 10:11 AM EDT Chair 12 Chemotherapy/Immunotherapy agents: ALIMTA and CARBOPLATIN Consent for chemotherapy drug treatment complete, dated, and signed? yes, date - 08/22/23 Treatment lab parameters met? Yes Labs reviewed by Dr. Christine; okay to proceed with treatment Has treatment weight changed > than 10%? No not since treatment ordered yesterday Treatment preauthorized? Yes VITALS Filed Vitals: 08/23/23 1104 BP: 130/76 Pulse: 79 Resp: 18 Temp: 36.3 C (97.4 F) SpO2: 94% Urine protein: N/A Patient education completed for treatment? No, Pt declined education at time of consent. Gave pt handouts today on treatment/chemo medications. Blood transfusion consent signed and complete? NA Return appointment scheduled? Yes Patient had provider visit today? Yes - Ok to release order and treat per provider seen by Dr. Christine yesterday 08/22/23 VAD accessed; NSS infusing. Safety and Risk for Injury Patient will remain free from injury. Ensure appropriate safety devices are available. Provide and maintain safe environment. Knowledge Deficit Patient and Caregiver will demonstrate understanding. Assess current knowledge base. Reinforce education. Teach at level of understanding. Functional Status: Functional status at today's visit: [...] Team (Late st Contact Info) Description 09/13/2023 8:30 AM EDT Laboratory Laboratory [facility] [address] [facility] [place] [phone] Diane, Lab [address] [facility] [place] [address] 09/13/2023 9:00 AM EDT Office Visit Hematology/Oncology [facility] [address] [place] [phone] Enriqueta Souza CRNP [address] [place] [address] 09/13/2023 9:30 AM EDT Hem/Onc Treatment [facility]emat[facility]Oncology [facility], [place] [facility] [phone] Diane, Chair 5 Hem Onc [address] [place] [address] 10/30/2023 1:00 PM EDT Telemedicine Neurosurgery, [place] [address] [place] [address] Dashawn Haines MD [address] [place] [address] 11/05/2023 3:25 PM EDT Office Visit Interventional Pain Center, [facility] [place] [address] Wiliam Tam DO [address] [place] [phone] 12/17/2023 10:00 AM EDT Appointment Vascular Lab [place] [address] [place] [address] 12/17/2023 10:30 AM EDT Office Visit Vascular Surg [place] [address] [place] [address] Margarito Cabrera MD [facility] [place] [address] Scheduled Procedures Name Priority Associated Diagnoses Date/Ti [...] this encounter Medical Devices Implanted Type Area Chip Separator Device Identifier Shelf Expiration Date Model / Serial / Lot Stent Main Body Ikwn-06-59-Zt - [id number] Implanted:Qty: 1 on 06/10/2014 by Ronal Gallegos MD at OR [facility] Aorta [employer] 04/07/2016 TFFB-24-8 2-ZT / / Graft Iliac Leg Spirlz [id number] - [id number] Implanted:Qty: 1 on 06/10/2014 by Ronal Gallegos MD at OR [facility] Right: Aorta [employer] 10/09/2015 [id number] / / [id number] Description: Graft Iliac Leg Spirlz 84d07hl - [id number] Implanted:Qty: 1 on 06/10/2014 by Ronal Gallegos MD at OR [facility] Right: Femoral Artery [employer] 11/07/2016 [id number] / / [id number] Stent Polmer 29mm P3110 - [id number] Implanted:Qty: 1 on 06/10/2014 by Ronal Gallegos MD at OR [facility] N/A: Aorta JNJ : CORDIS ENDOVASCULAR 07/26/2018 P3110 / / [id number] Codman Orbit Galaxy Coil 2.5mm X 3.5cm Implanted:Qty: 1 on 09/12/2015 by Arik Shin MD at OR [facility] Left: Head LENORA & BellaDatiLORMAN 02/26/2017 [id number] / [id number] / [id number] Description:COMPLEX XTRASOFT detachable coil deployed left internal carotid artery Codman Orbit Galaxy Coil 2.5mm X 2.5cm Implanted:Qty: 1 on 09/12/2015 by Arik Shin MD at OR [facility] Left: Head LENORA & BellaDatiMAN 01/27/2016 [id number] / [id number] / [id number] Description:COMPLEX XTRASOFT detachable coil deployed left internal carotid artery aneurysm Codman [place] 2 Stent 4mm X 30mm Implanted:Qty: 1 on 09/12/2015 by Arik Shin MD at OR [facility] [place] Left: Head LENORA & LENORA DEPUY 03/26/2018 [id number] / [id number] / [id number] Description:Vascular reconst ruction device deployed in left internal carotid artery Codman Orbit Galaxy Coil 6mm X 20cm Implanted:Qty: 1 on 09/12/2015 by Arik Shin MD at OR [facility] [place] Left: Head LENORA & LENORA CODMAN 09/26/2016 [id number] / [id number] / [id number] Description:COMPLEX FILL det achable coil deployed left internal carotid artery aneurysm Codman Orbit Galaxy Coil 4mm X 10cm Implanted:Qty: 1 on 09/12/2015 by Arik Shin MD at OR [facility] Left: Head LENORA & LENORA [facility] 10/27/2015 [id number] / [id number] / [id number] Description:COMPLEX XTRASOFT detachable coil deployed left internal carotid artery aneurysm Codman Orbit Galaxy Coil 3.5mm X 9cm Implanted:Qty: 1 on 09/12/2015 by Arik Shin MD at OR [facility] Left: Head LENORA & LENORA CODMAN 12/28/2015 [id number] / [id number] / [id number] Description:COMPLEX XTRASOFT detachable coil deployed left internal carotid artery aneurysm Codman Orbit Galaxy Coil 3mm X 6cm Implanted:Qty: 1 on 09/12/2015 by Arik Shin MD at OR [facility] Left: Head LENORA & LENORA CODMAN 04/28/2017 [id number] / [id number] / [id number] Description:COMPLEX XTRASOFT detachable coil deployed left internal carotid artery aneurysm Lens Intraoc 21.0 - [id number] - [id number] Implanted:Qty: 1 on 11/08/2020 by Yuri Bradley MD at OR [facility] Left: Eye BAUSCH & LOMB 06/26/2025 [id number] / [id number] Lens Intraoc 20.5 - [id number] - [id number] Implanted:Qty: 1 on 11/22/2020 by Yuri Bradley MD at OR [facility] Right: Eye BAUSCH & LOMB 07/27/2025 [id number] / [id number] Clip Quick 2.8mm 230cm - [id number] Implanted:Qty: 3 on 03/29/2021 by Luciana Fernandez MD at ENDOSCOPY [facility] [employer] 08/27/2023 HX-202UR. A / / Sureclip 16mm 235cm - [id number] Implanted:Qty: 2 on 05/07/2022 by Luciana Fernandez MD at ENDOSCOPY [facility] Colon MICRO TECH ENDOSCOPY 07/06/2024 [id number] / / Power Port 8fr Sngl Lumen Plas - [id number] Implanted:Qty: 1 on 01/30/2023 by Koko Santiago MD at OR [facility] N/A: Chest CR BARD : PERIPHERAL VASCULAR 07/27/2024 [id number] / / [id number] Power Port 8fr Sngl Lumen Plas - [id number] Implanted:Qty: 1 on 01/30/2023 by Koko Santiago MD at [facility] CR BARD : PERIPHERAL VASCULAR [id number] 07/27/2024 [id number] / / [id number] documented as of this encounter Visit Diagnoses Diagnosis Encounter for antineoplastic chemotherapy- Primary 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) Malignant neoplasm of left lung, unspecified part of lung (HCC) documented in this encounter Administered Medications Inactive Administered Medications - up to 3 most recent administrations Medication Order MAR Action Action Date Dose Rate Site CARBOplatin (Paraplatin) 364 mg in D5W 250 mL infusion 364 mg (rounded from 363.5 mg, Target AUC = 5), IV Piggyback, at 550 mL/hr Administer over 30 Minutes, PROTECT FROM LIGHT Administer 30 min after Alimta complete. (Max Creatinine Clearance at 125 ml/min for calculating AUC dose), ONCE, 1 dose, On Sat08/23/23 at 1215 Start Infusion 08/23/2023 12:06 PM EDT 364 mg 550 mL/hr Fosaprepitant Dimeglumine (Emend) 150 mg, ondansetron (Zofran) 16 mg, dexamethasone sodium phosphate 12 mg in NSS 250 mL Infusion 150 mg, IV Piggyback, ONCE, 1 dose, On Sat08/23/23 at 1115, Administer over 30 Minutes, Give 30 minutes prior to chemotherapy. Infuse over 30 minutes. Start Infusion 08/23/2023 10:40 AM EDT 150 mg 578.4 mL/hr hEParin 100 UNIT/ML Lock Flush inj 500 Units 500 Units (5 mL), IV Lock, PRN Other, IV Flush, Starting on Sat08/23/23 at 1010, Until Sat08/23/23 at 1658, For 24 hours, Do not flush if lock, PICC, or central line not in place; IV infusing or unable to flush. Given 08/23/2023 12:45 PM EDT 500 Units NSS infusion Intravenous, at 50 mL/hr, PRN, Starting on Sat08/23/23 at 1115, Until Sat08/23/23 at 1658, Maintenance line Start Infusion 08/23/2023 10:16 AM EDT 50 mL/hr PEMEtrexed Disodium (Alimta) 900 mg in NSS 100 mL infusion 900 mg (rounded from 925 mg = 500 mg/m2 1.85 m2 Treatment Plan BSA from Recorded weight), IV Piggyback, ONCE, 1 dose, On Sat08/23/23 at 1145, Administer over 10 Minutes Start Infusion 08/23/2023 11:18 AM EDT 900 mg 660 mL/hr sodium chloride 0.9 % flush central line 10 mL 10 mL, IV Push, PRN Other, IV Flush, Starting on Sat08/23/23 at 1010, Until Sat08/23/23 at 1658, For 24 hours, Do not flush if lock, PICC, or central line not in place; IV infusing or unable to flush. Given 08/23/2023 12:44 PM EDT 10 mL vitamin b-12 (Cyanocobalamin) inj 1,000 mcg 1,000 mcg, Intramuscular, ONCE, On Sat08/23/23 at 1045, For 1 dose Given 08/23/2023 12:19 PM EDT 1,000 mcg Deltoid Right Upper documented in this encounter Advance Directives Latest [...] were consensually agreed upon. Care Teams Office Chair Assembler Relationship Specialty Start Date End Date Mauro Watson DO [address] [place] [address] PCP - General Family Medicine 04/13/19 documented as of this encounter
--- OUTSIDE RECORDS SUMMARY | 2024-02-19 09:36 | External Medical Summary | Summary of Care ---
Author Name Unknown Organization [facility] Address [address] [place] [address] Phone [phone] Care Team Providers Care Engine Lathe Set Up Operator Name Role Phone Mauro Watson DO Primary Care Provider Reason for Visit * Reason Onset Date Comments Information 09/11/2023 Encounter Details Date Type Department Care Team ([facility] st Contact Info) Description 09/11/2023 Telephone Hematology/Oncology Treatment, [place] [address] [place] [address] Lasha Christine MD [address] [place] [address] Information Allergies Active Allergy Reactions Criticality Noted Date Comments Aspirin Bleeding High 11/26/2011 Significant hemorroidal bleed on aspirin,high doses Duloxetine Hcl Hypertension 01/26/2020 documented as of this encounter (statuses as of 09/11/2023) Medications Medication Sig Dispensed Refills Start Date [...] as of this encounter (statuses as of 09/11/2023) Active Problems Problem Noted Date Diagnosed Date Malignant neoplasm of left lung 08/23/2023 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 01/21/2023 Encounter for antineoplastic chemotherapy 2022 Medical marijuana use 08/26/2021 CKD (chronic kidney disease), stage II 2 Overview: EGFR 72 Lumbar radiculopathy 05/27/2019 Atherosclerosis of [place] co ronary artery of [place] heart with angina pectoris 05/05/2019 History of [...] as of this encounter (statuses as of 09/11/2023) Resolved Problems Problem Noted Date Diagnosed Date [...] as of this encounter (statuses as of 09/11/2023) Immunizations Name Administration Dates Next Due COVID-19 [...] Per Dr Christine: "Lasha Christine MD P [facility] Hem/Onc Nurse Pool/Class; Enriqueta Souza CRNP [place], Dr. Bejarano from [facility] spoke with me about his [...] Description 09/13/2023 8:30 AM EDT Laboratory Laboratory [facility] [address] [place] [address] [phone] [place] [address] 09/13/2023 9:00 AM EDT Office Visit Hematology/Oncology [place] [facility] [place] [address] [place] [address] [phone] Enriqueta Souza, AMLITA [address] [facility] [place] [address] 09/13/2023 9:30 AM EDT Hem/Onc Treatment Hematology/Oncology Treatment, [place] [address] [place] [phone] [place], Chair 5 Hem Onc [place] [address] [place] [address] 10/30/2023 1:00 PM EDT Telemedicine Neurosurgery, [place] [address] [place] [address] Dashawn Haines MD [address] [place] [address] 11/05/2023 3:25 PM EDT Office Visit Interventional Pain Center, [facility] [address] [facility] [place] [address] Wiliam Tam DO [address] [facility] [place] [address] 12/17/2023 10:00 AM EDT Appointment Vascular Lab [place] [address] [place] [address] 12/17/2023 10:30 AM EDT Office Visit Vascular Surg [place] [address] [place] [address] Margarito Cabrera MD [address] [place] [address] Scheduled Procedures Name Priority Associated Diagnoses Date/Ti [...] this encounter Medical Devices Implanted Type Area Supervisor Grower Device Identifier Shelf Expiration Date Model / Serial / Lot Stent Main Body Gfal-97-05-Zt - [id number] Implanted:Qty: 1 on 06/10/2014 by Ronal Gallegos MD at OR [facility] Aorta [employer] 04/07/2016 TFFB-24-8 2-ZT / / Graft Iliac Leg Spirlz 90x57gs - [id number] Implanted:Qty: 1 on 06/10/2014 by Ronal Gallegos MD at OR [facility] Right: Aorta [employer] 10/09/2015 [id number] / / [id number] Description: Graft Iliac Leg Spirlz 05p50ne - [id number] Implanted:Qty: 1 on 06/10/2014 by Ronal Gallegos MD at OR [facility] Right: Femoral Artery [employer] 11/07/2016 [id number] / / [id number] Stent Polmer 29mm P3110 - [id number] Implanted:Qty: 1 on 06/10/2014 by Ronal Gallegos MD at OR [facility] N/A: Aorta JNJ : CORDIS ENDOVASCULAR 07/26/2018 P3110 / / [id number] Codman Orbit Galaxy Coil 2.5mm X 3.5cm Implanted:Qty: 1 on 09/12/2015 by Arik Shin MD at OR [facility] Left: Head LENORA & LENORA [facility] 02/26/2017 [id number] / [id number] / [id number] Description:COMPLEX XTRASOFT detachable coil deployed left internal carotid artery Codman Orbit Galaxy Coil 2.5mm X 2.5cm Implanted:Qty: 1 on 09/12/2015 by Arik Shin MD at OR [facility] Left: Head LENORA & LENORA [facility] 01/27/2016 [id number] / [id number] / [id number] Description:COMPLEX XTRASOFT detachable coil deployed left internal carotid artery aneurysm Codman [place] 2 Stent 4mm X 30mm Implanted:Qty: 1 on 09/12/2015 by Arik Shin MD at OR [facility] Left: Head LENORA & LENORA DEPUY 03/26/2018 [id number] / [id number] / [id number] Description:Vascular reconst ruction device deployed in left internal carotid artery Codman Orbit Galaxy Coil 6mm X 20cm Implanted:Qty: 1 on 09/12/2015 by Arik Shin MD at OR [facility] Left: Head LENORA & LENORA CODMAN 09/26/2016 [id number] / [id number] / [id number] Description:COMPLEX FILL det achable coil deployed left internal carotid artery aneurysm Codman Orbit Galaxy Coil 4mm X 10cm Implanted:Qty: 1 on 09/12/2015 by Arik Shin MD at OR [facility] Left: Head LENORA & LENORA CODMAN 10/27/2015 [id number] / [id number] / [id number] Description:COMPLEX XTRASOFT detachable coil deployed left internal carotid artery aneurysm Codman Orbit Galaxy Coil 3.5mm X 9cm Implanted:Qty: 1 on 09/12/2015 by Arik Shin MD at OR [facility] Left: Head LENORA & LENORA CODMAN 12/28/2015 [id number] / [id number] / [id number] Description:COMPLEX XTRASOFT detachable coil deployed left internal carotid artery aneurysm Codman Orbit Galaxy Coil 3mm X 6cm Implanted:Qty: 1 on 09/12/2015 by Arik Shin MD at OR [facility] Left: Head LENORA & LENORA CODMAN 04/28/2017 [id number] / [id number] / [id number] Description:COMPLEX XTRASOFT detachable coil deployed left internal carotid artery aneurysm Lens Intraoc 21.0 - [id number] - [id number] Implanted:Qty: 1 on 11/08/2020 by Yuri Bradley MD at OR [facility] Left: Eye BAUSCH & LOMB 06/26/2025 [id number] / [id number] / [id number] Lens Intraoc 20.5 - [id number] - [id number] Implanted:Qty: 1 on 11/22/2020 by Yuri Bradley MD at OR [facility] Right: Eye BAUSCH & LOMB 07/27/2025 [id number] / [id number] / [id number] Clip Quick 2.8mm 230cm - [id number] Implanted:Qty: 3 on 03/29/2021 by Luciana Fernandez MD at ENDOSCOPY [facility] [employer] 08/27/2023 HX-202UR. A / / Sureclip 16mm 235cm - [id number] Implanted:Qty: 2 on 05/07/2022 by Luciana Fernandez MD at ENDOSCOPY [facility] Colon MICRO TECH ENDOSCOPY 07/06/2024 [id number] / / Power Port 8fr Sngl Lumen Plas - [id number] Implanted:Qty: 1 on 01/30/2023 by Koko Santiago MD at OR [facility] N/A: Chest CR BARD : PERIPHERAL VASCULAR 07/27/2024 [id number] / / [id number] Power Port 8fr Sngl Lumen Plas - [id number] Implanted:Qty: 1 on 01/30/2023 by Koko Santiago MD at OR [facility] CR BARD : PERIPHERAL VASCULAR [id number] 07/27/2024 [id number] / / [id number] documented as of this encounter Advance Directives [...] and were consensually agreed upon. Care Teams Engine Lathe Set Up Operator Relationship Specialty Start Date End Date Mauro Watsno DO [address] [facility] [place] [address] PCP - General Family Medicine 04/13/19 documented as of this encounter
--- OUTSIDE RECORDS SUMMARY | 2024-02-19 09:36 | External Medical Summary | Summary of Care ---
Author Name Unknown Organization [facility] Address [address] [place] [address] Phone [phone] Care Team Providers Care Senior Accounting Clerk Name Role Phone Mauro Watson DO Primary Care Provider Reason for Visit * Reason Onset Date Comments Information 09/11/2023 Encounter Details Date Type Department Care Team ([facility] st Contact Info) Description 09/11/2023 Telephone Hematology/Oncology Treatment, [place] [address] [place] [address] Lasha Christine MD [address] [place] [address] Information Allergies Active Allergy Reactions Criticality Noted [...] EGFR 72 Lumbar radiculopathy 05/27/2019 Atherosclerosis of [place] co ronary artery of [place] heart with angina pectoris 05/05/2019 History of colon polyps 08/12/2018 ACEI/ARB contraindicated 09/21/2016 Carotid aneurysm, left 09/13/2015 Overview: S/p coil embolization Cerebral aneurysm, nonruptured 09/05/2015 AAA (abdominal aortic aneurysm) 06/20/2015 Overview: S/p repair Bilateral carotid artery disease 06/20/2015 Medical home patient encounter 05/19/2014 Hypertriglyceridemia 05/16/2012 CORON ATHEROSCL [place] CORON VESSEL 07/11/2010 Dyslipidemia, goal LDL below [...] Per Dr Christine: "Lasha Christine MD P [facility] Hem/Onc Nurse Pool/Class; Enriqueta Souza CRNP Oh, Dr. Bejarano from [facility] spoke with me about his case, [...] Description 09/13/2023 8:30 AM EDT Laboratory Laboratory [facility] 200 [facility] [place] [phone] Diane, Lab [address] [place] [address] 09/13/2023 9:00 AM EDT Office Visit Hematology/Oncology [facility] [place] 200 [facility] [place] [phone] Enriqueta Souza CRNP [address] [place], [place] [address] [address] 09/13/2023 9:30 AM EDT Hem/Onc Treatment Hematology/Oncology Treatment, [place] 200 [facility] [place] [phone] Diane, Chair 5 Hem Onc [facility] 200 [facility] [place] [address] 10/30/2023 1:00 PM EDT Telemedicine Neurosurgery, [address] [phone] Dashawn Haines MD [address] [place] [address] 11/05/2023 3:25 PM EDT Office Visit Interventional Pain Center, [facility] [address] [place] [address] Wiliam Tam DO [address] [place] [phone] 12/17/2023 10:00 AM EDT Appointment Vascular Lab [facility] [address] [place] [address] 12/17/2023 10:30 AM EDT Office Visit Vascular Surg [facility] [address] [place] [address] Margarito Cabrera MD [address] [place] [address] Scheduled Procedures Name Priority Associated Diagnoses Date/Ti [...] this encounter Medical Devices Implanted Type Area Breakfast And Room Attendant Device Identifier Shelf Expiration Date Model / Serial / Lot Stent Main Body Yzqq-58-03-[id number] - [id number] Implanted:Qty: 1 on 06/10/2014 by Ronal Gallegos MD [place] [facility] Aorta [employer] 04/07/2016 TFFB-24-8 2-ZT / / Graft Iliac Leg Spirlz 10h28kn - [id number] Implanted:Qty: 1 on 06/10/2014 by Ronal Gallegos MD at [place] [facility] Right: Aorta [employer] 10/09/2015 [id number] / / [id number] Description: Graft Iliac Leg Spirlz 25z37zk - [id number] Implanted:Qty: 1 on 06/10/2014 by Ronal Gallegos MD at [place] [facility] Right: Femoral Artery [employer] 11/07/2016 [id number] / / [id number] Stent Polmer 29mm P3110 - [id number] Implanted:Qty: 1 on 06/10/2014 by Ronal Gallegos MD at [place] [facility] N/A: Aorta JNJ : CORDIS ENDOVASCULAR 07/26/2018 P3110 / / [id number] Codman Orbit Galaxy Coil 2.5mm X 3.5cm Implanted:Qty: 1 on 09/12/2015 by Arik Shin MD at [place] [facility] Left: Head LENORA & LENORA CODMAN 02/26/2017 [id number] / [id number] / [id number] Description:COMPLEX XTRASOFT detachable coil deployed left internal carotid artery Codman Orbit Galaxy Coil 2.5mm X 2.5cm Implanted:Qty: 1 on 09/12/2015 by Arik Shin MD at [place] [facility] Left: Head LENORA & LENORA CODMAN 01/27/2016 [id number] / [id number] / [id number] Description:COMPLEX XTRASOFT detachable coil deployed left internal carotid artery aneurysm Codman [place] 2 Stent 4mm X 30mm Implanted:Qty: 1 on 09/12/2015 by Arik Shin MD at OR [facility] Left: Head LENORA & LENORA DEPUY 03/26/2018 [id number] / [id number] / [id number] Description:Vascular reconst ruction device deployed in left internal carotid artery Codman Orbit Galaxy Coil 6mm X 20cm Implanted:Qty: 1 on 09/12/2015 by Arik Shin MD at [place] [facility] Left: Head LENORA & LENORA [facility] 09/26/2016 [id number] / [id number] / [id number] Description:COMPLEX FILL det achable coil deployed left internal carotid artery aneurysm Codman Orbit Galaxy Coil 4mm X 10cm Implanted:Qty: 1 on 09/12/2015 by Arik Shin MD at [place] [facility] Left: Head LENORA & LENORA [facility] 10/27/2015 [id number] 0 / [id number] / [id number] Description:COMPLEX XTRASOFT detachable coil deployed left internal carotid artery aneurysm Codman Orbit Galaxy Coil 3.5mm X 9cm Implanted:Qty: 1 on 09/12/2015 by Arik Shin MD at [place] [facility] Left: Head LENORA & LENORA CODMAN 12/28/2015 [id number] / [id number] / [id number] Description:COMPLEX XTRASOFT detachable coil deployed left internal carotid artery aneurysm Codman Orbit Galaxy Coil 3mm X 6cm Implanted:Qty: 1 on 09/12/2015 by Arik Shin MD at [place] [facility] Left: Head LENORA & LENORA CODMAN 04/28/2017 [id number] / [id number] / [id number] Description:COMPLEX XTRASOFT detachable coil deployed left internal carotid artery aneurysm Lens Intraoc 21.0 - [id number] - [id number] Implanted:Qty: 1 on 11/08/2020 by Yuri Bradley MD at OR [facility] Left: Eye BAUSCH & LOMB 06/26/2025 [id number] / [id number] / [id number] Lens Intraoc 20.5 - [id number] - [id number] Implanted:Qty: 1 on 11/22/2020 by Yuri Bradley MD at OR [facility] Right: Eye BAUSCH & LOMB 07/27/2025 [id number] / [id number] / [id number] Clip Quick 2.8mm 230cm - [id number] Implanted:Qty: 3 on 03/29/2021 by Luciana Fernandez MD at ENDOSCOPY [facility] [employer] 08/27/2023 HX-202UR. A / / Sureclip 16mm 235cm - [id number] Implanted:Qty: 2 on 05/07/2022 by Luciana Fernandez MD at ENDOSCOPY [facility] Colon MICRO TECH ENDOSCOPY 07/06/2024 [id number] / / Power Port 8fr Sngl Lumen Plas - [id number] Implanted:Qty: 1 on 01/30/2023 by Koko Santiago MD at OR [facility] N/A: Chest CR BARD : PERIPHERAL VASCULAR 07/27/2024 [id number] / / [id number] Power Port 8fr Sngl Lumen Plas - [id number] Implanted:Qty: 1 on 01/30/2023 by Koko Santiago MD at [facility] CR BARD : PERIPHERAL VASCULAR [id number] 07/27/2024 [id number] / / [id number] documented as of this encounter Advance Directives [...] were consensually agreed upon. Care Teams Senior Accounting Clerk Relationship Specialty Start Date End Date Mauro Watson DO [address] [place] [address] PCP - General Family Medicine 04/13/19 documented as of this encounter
--- OUTSIDE RECORDS SUMMARY | 2024-02-19 09:36 | External Medical Summary | Summary of Care ---
Author Name Unknown Organization [facility] Address [address] [place] [address] Phone [phone] Care Team Providers Care Milled Rubber Tender Name Role Phone Mauro Watson DO Primary Care Provider Reason for Visit * Reason Onset Date Comments Information 09/11/2023 Encounter Details Date Type Department Care Team ([facility] st Contact Info) Description 09/11/2023 Telephone Hematology/Oncology Treatment, [place] [address] [place] [address] Lasha Christine MD [address] [place] [address] Information Allergies Active Allergy Reactions Criticality Noted [...] patient encounter 05/19/2014 Hypertriglyceridemia 05/16/2012 CORON ATHEROSCL [place] CORON VESSEL 07/11/2010 Dyslipidemia, goal LDL below [...] Per Dr Christine: "Lasha Christine MD P [facility] Hem/Onc Nurse Pool/Class; Enriqueta Souza CRNP Or, Dr. Bejarano from [facility] spoke with me about his case, she [...] State Radha [place] [address] [place] [address] [phone] [place] [address] 09/13/2023 9:00 AM EDT Office Visit Hematology/Oncology [place] [address] [place] [phone] Enriqueta Souza CRNP [address] [facility] [place] [address] 09/13/2023 9:30 AM EDT Hem/Onc Treatment Hematology/Oncology Treatment, [place] [address] [place], [place] [phone] Park, Chair 5 Hem Onc [place] [address] [place] [address] 10/30/2023 1:00 PM EDT Telemedicine Neurosurgery, [place] [address] [place] [address] Dashawn Haines MD [address] [place] [address] 11/05/2023 3:25 PM EDT Office Visit Interventional Pain Center, [facility] [address] [place] [address] Wiliam Tam DO [address] [place] [phone] 12/17/2023 10:00 AM EDT Appointment Vascular Lab [facility] [address] [place] [address] 12/17/2023 10:30 AM EDT Office Visit Vascular Surg [facility] [address] [place] [address] Margarito Cabrera MD [address] [place] [address] Scheduled Procedures Name Priority Associated Diagnoses Date/Ti [...] encounter Medical Devices Implanted Type Area Steam Locomotive Firer/Fireman Device Identifier Shelf Expiration Date Model / Serial / Lot Stent Main Body Iwwy-90-33-Zt - [id number] Implanted:Qty: 1 on 06/10/2014 by Ronal Gallegos MD at [place] [facility] Aorta [employer] 04/07/2016 TFFB-24-8 2-ZT / / Graft Iliac Leg Spirlz 86s93ah - [id number] Implanted:Qty: 1 on 06/10/2014 by Ronal Gallegos MD at OR [facility] Right: Aorta [employer] 10/09/2015 [id number] / / [id number] Description: Graft Iliac Leg Spirlz 51a83fk - [id number] Implanted:Qty: 1 on 06/10/2014 by Ronal Gallegos MD at OR [facility] Right: Femoral Artery [employer] 11/07/2016 [id number] / / [id number] Stent Polmer 29mm P3110 - [id number] Implanted:Qty: 1 on 06/10/2014 by Ronal Gallegos MD at OR [facility] N/A: Aorta JNJ : CORDIS ENDOVASCULAR 07/26/2018 P3110 / / [id number] Codman Orbit Galaxy Coil 2.5mm X 3.5cm Implanted:Qty: 1 on 09/12/2015 by Arik Shin MD at OR [facility] Left: Head LENORA & LENORA CODMORA 02/26/2017 [id number] / [id number] / [id number] Description:COMPLEX XTRASOFT detachable coil deployed left internal carotid artery Codman Orbit Galaxy Coil 2.5mm X 2.5cm Implanted:Qty: 1 on 09/12/2015 by Arik Shin MD at OR [facility] Left: Head LENORA & LENORA [facility] 01/27/2016 [id number] / [id number] / [id number] Description:COMPLEX XTRASOFT detachable coil deployed left internal carotid artery aneurysm Codman [place] 2 Stent 4mm X 30mm Implanted:Qty: 1 on 09/12/2015 by Arik Shin MD at OR [facility] Left: Head LENORA & LENORA DEPUY 03/26/2018 [id number] / [id number] / [id number] Description:Vascular reconst ruction device deployed in left internal carotid artery Codman Orbit Galaxy Coil 6mm X 20cm Implanted:Qty: 1 on 09/12/2015 by Arik Shin MD at OR [facility] Left: Head LENORA & LENORA CODMAN 09/26/2016 [id number] / [id number] / [id number] Description:COMPLEX FILL det achable coil deployed left internal carotid artery aneurysm Codman Orbit Galaxy Coil 4mm X 10cm Implanted:Qty: 1 on 09/12/2015 by Arik Shin MD at OR [facility] Left: Head LENORA & LENORA CODMAN 10/27/2015 [id number] 0 / [id number] / [id number] Description:COMPLEX XTRASOFT detachable coil deployed left internal carotid artery aneurysm Codman Orbit Galaxy Coil 3.5mm X 9cm Implanted:Qty: 1 on 09/12/2015 by Arik Shin MD at OR [facility] Left: Head LENORA & LENORA CODMAN 12/28/2015 [id number] / [id number] / [id number] Description:COMPLEX XTRASOFT detachable coil deployed left internal carotid artery aneurysm Codman Orbit Galaxy Coil 3mm X 6cm Implanted:Qty: 1 on 09/12/2015 by Arik Shin MD at OR [facility] Left: Head LENORA & LENORA CODMAN 04/28/2017 [id number] / [id number] / [id number] Description:COMPLEX XTRASOFT detachable coil deployed left internal carotid artery aneurysm Lens Intraoc 21.0 - [id number] - [id number] Implanted:Qty: 1 on 11/08/2020 by Yuri Bradley MD at OR [facility] Left: Eye BAUSCH & LOMB 06/26/2025 [id number] / [id number] / [id number] Lens Intraoc 20.5 - [id number] - [id number] Implanted:Qty: 1 on 11/22/2020 by Yuri Bradley MD at OR [facility] Right: Eye BAUSCH & LOMB 07/27/2025 [id number] / [id number] / [id number] Clip Quick 2.8mm 230cm - [id number] Implanted:Qty: 3 on 03/29/2021 by Luciana Fernandez MD at ENDOSCOPY [facility] [employer] 08/27/2023 HX-202UR. A / / Sureclip 16mm 235cm - [id number] Implanted:Qty: 2 on 05/07/2022 by Luciana Fernandez MD at ENDOSCOPY [facility] Colon MICRO TECH ENDOSCOPY 07/06/2024 [id number] / / Power Port 8fr Sngl Lumen Plas - [id number] Implanted:Qty: 1 on 01/30/2023 by Koko Snatiago MD at OR [facility] N/A: Chest CR BARD : PERIPHERAL VASCULAR 07/27/2024 [id number] / / [id number] Power Port 8fr Sngl Lumen Plas - [id number] Implanted:Qty: 1 on 01/30/2023 by Koko Santiago MD at OR [facility] CR BARD : PERIPHERAL VASCULAR [id number] 07/27/2024 [id number] / / [id number] documented as of this encounter Advance Directives [...] and were consensually agreed upon. Care Teams Milled Rubber Tender Relationship Specialty Start Date End Date Mauro Watson DO 132 [facility] [place] [address] PCP - General Family Medicine 04/13/19 documented as of this encounter
--- OUTSIDE RECORDS SUMMARY | 2024-02-19 09:36 | External Medical Summary | Summary of Care ---
Author Name Unknown Organization [facility] Address [address] [place] [address] Phone [phone] Care Team Providers Care Grab Setter Name Role Phone Mauro Watson DO Primary Care Provider Reason for Visit * Reason Comments Chemotherapy Alimta/Carboplatin * Episode Based Medications (Routine) - Authorized Specialty Diagnoses / Procedures Referred By Contulises t Referred To Contact Diagnoses Encounter for antineoplastic chemotherapy 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) Malignant neoplasm of left lung, unspecified part of lung (HCC) Procedures [place] INJ. PEMETREXED NOS 10MG [place] CARBOPLATIN INJECTION [place] FOSAPREPITANT INJECTION Lasha Christine MD 200 [place] [address] Anc Hem/Onc [address] [address] Referral ID Status Reason Start Date Expiration Date V isits Requested Visits Authorized [id number] Authorized 08/22/2023 04/28/2099 999 99 Encounter Details Date Type Department Care Team (Latest Contact Info) Description 08/23/2023 9:45 AM EDT Hem/Onc Treatment Hematology/Oncolog y Treatment, [address] [phone] Diane Chair 2 Hem Onc [address] [place] [address] Encounter for antineoplastic chemotherapy*; Metastatic carcinoma involving [...] EGFR 72 Lumbar radiculopathy 05/27/2019 Atherosclerosis of [place] co ronary artery of [place] heart with angina pectoris 05/05/2019 History of colon polyps 08/12/2018 ACEI/ARB contraindicated 09/21/2016 Carotid aneurysm, left 09/13/2015 Overview: S/p coil embolization Cerebral aneurysm, nonruptured 09/05/2015 AAA (abdominal aortic aneurysm) 06/20/2015 Overview: S/p repair Bilateral carotid artery disease 06/20/2015 Medical home patient encounter 05/19/2014 Hypertriglyceridemia 05/16/2012 CORON ATHEROSCL [place] CORON VESSEL 07/11/2010 Dyslipidemia, goal LDL [...] Description 09/13/2023 8:30 AM EDT Laboratory Laboratory [facility] [address] [facility] [phone] Diane, Lab [address] [facility] [place] [address] 09/13/2023 9:00 AM EDT Office Visit Hematology/Oncology [facility] [address] [place] [phone] Enriqueta Souza CRNP 400 [place] [address] 09/13/2023 9:30 AM EDT Hem/Onc Treatment Hematology/Oncology Treatment, [place] [address] [facility] [phone] Diane, Chair 5 Hem Onc [address] [place] [address] 10/30/2023 1:00 PM EDT Telemedicine Neurosurgery, [place] [address] [place] [address] Dashawn Haines MD [address] [place] [address] 11/05/2023 3:25 PM EDT Office Visit [facility], [facility] [place] [address] Wiliam Tam DO [address] [place] [phone] 12/17/2023 10:00 AM EDT Appointment Vascular Lab [place] [address] [place] [address] 12/17/2023 10:30 AM EDT Office Visit Vascular Surg [place] [address] [place] [address] Margarito Cabrera MD [facility] [place] [address] Scheduled Procedures Name Priority Associated Diagnoses Date/Ti [...] this encounter Medical Devices Implanted Type Area Full Service Vending Driver Device Identifier Shelf Expiration Date Model / Serial / Lot Stent Main Body Kbbe-68-51-Zt - [id number] Implanted:Qty: 1 on 06/10/2014 by Ronal Gallegos MD [place] [facility] Aorta [employer] 04/07/2016 TFFB-24-8 2-ZT / / Graft Iliac Leg Spirlz 65p55zl - [id number] Implanted:Qty: 1 on 06/10/2014 by Ronal Gallegos MD [facility] Right: Aorta [employer] 10/09/2015 [id number] / / [id number] Description: Graft Iliac Leg Spirlz 11s02xc - [id number] Implanted:Qty: 1 on 06/10/2014 by Ronal Gallegos MD [facility] [place] [facility] Right: Femoral Artery [employer] 11/07/2016 [id number] / / [id number] Stent Polmer 29mm P3110 - [id number] Implanted:Qty: 1 on 06/10/2014 by Ronal Gallegos MD [place] [facility] N/A: Aorta JNJ : CORDIS ENDOVASCULAR 07/26/2018 P3110 / / [id number] Codman Orbit Galaxy Coil 2.5mm X 3.5cm Implanted:Qty: 1 on 09/12/2015 by Arik Shin MD [place] [facility] Left: Head LENORA & Regalos Y AmigosBELDEN 02/26/2017 [id number] / [id number] / [id number] Description:COMPLEX XTRASOFT detachable coil deployed left internal carotid artery Codman Orbit Galaxy Coil 2.5mm X 2.5cm Implanted:Qty: 1 on 09/12/2015 by Arik Shin MD [place] [facility] Left: Head LENORA & Regalos Y AmigosMAN 01/27/2016 [id number] / [id number] / [id number] Description:COMPLEX XTRASOFT detachable coil deployed left internal carotid artery aneurysm Codman [place] 2 Stent 4mm X 30mm Implanted:Qty: 1 on 09/12/2015 by Arik Shni MD at [place] [facility] Left: Head LENORA & LENORA DEPUY 03/26/2018 [id number] / [id number] / [id number] Description:Vascular reconst ruction device deployed in left internal carotid artery Codman Orbit Galaxy Coil 6mm X 20cm Implanted:Qty: 1 on 09/12/2015 by Arik Shin MD [place] [facility] Left: Head LENORA & LENORA CODMAN 09/26/2016 [id number] / [id number] / [id number] Description:COMPLEX FILL det achable coil deployed left internal carotid artery aneurysm Codman Orbit Galaxy Coil 4mm X 10cm Implanted:Qty: 1 on 09/12/2015 by Arik Shin MD [facility] [place] [facility] Left: Head LENORA & LENORA [facility] 10/27/2015 [id number] 0 / [id number] / [id number] Description:COMPLEX XTRASOFT detachable coil deployed left internal carotid artery aneurysm Codman Orbit Galaxy Coil 3.5mm X 9cm Implanted:Qty: 1 on 09/12/2015 by Arik Shin MD at [place] [facility] Left: Head LENORA & LENORA CODMAN 12/28/2015 [id number] / [id number] / [id number] Description:COMPLEX XTRASOFT detachable coil deployed left internal carotid artery aneurysm Codman Orbit Galaxy Coil 3mm X 6cm Implanted:Qty: 1 on 09/12/2015 by Arik Shin MD at [place] [facility] Left: Head LENORA & LENORA CODMAN 04/28/2017 [id number] / [id number] / [id number] Description:COMPLEX XTRASOFT detachable coil deployed left internal carotid artery aneurysm Lens Intraoc 21.0 - [id number] - [id number] Implanted:Qty: 1 on 11/08/2020 by Yuri Bradley MD at OR [facility] Left: Eye BAUSCH & LOMB 06/26/2025 [id number] / [id number] Lens Intraoc 20.5 - [id number] - [id number] Implanted:Qty: 1 on 11/22/2020 by Yuri Bradley MD at OR [facility] Right: Eye BAUSCH & LOMB 07/27/2025 [id number] / [id number] Clip Quick 2.8mm 230cm - [id number] Implanted:Qty: 3 on 03/29/2021 by Luciana Fernandez MD at ENDOSCOPY [facility] [employer] 08/27/2023 HX-202UR. A / / Sureclip 16mm 235cm - [id number] Implanted:Qty: 2 on 05/07/2022 by Luciana Fernandez MD at ENDOSCOPY [facility] Colon MICRO TECH ENDOSCOPY 07/06/2024 [id number] / / Power Port 8fr Sngl Lumen Plas - [id number] Implanted:Qty: 1 on 01/30/2023 by Koko Santiago MD at OR [facility] N/A: Chest CR BARD : PERIPHERAL VASCULAR 07/27/2024 [id number] / / [id number] Power Port 8fr Sngl Lumen Plas - [id number] Implanted:Qty: 1 on 01/30/2023 by Koko Santiago MD at [facility] CR BARD : PERIPHERAL VASCULAR [id number] 07/27/2024 [id number] / / [id number] documented as of this encounter Visit Diagnoses [...] and were consensually agreed upon. Care Teams Grab Setter Relationship Specialty Start Date End Date Mauro Watson DO [address] [place] [address] PCP - General Family Medicine 04/13/19 documented as of this encounter
--- OUTSIDE RECORDS SUMMARY | 2024-02-19 09:36 | External Medical Summary | Summary of Care ---
Author Name Unknown Organization [facility] Address [address] [place] [address] Phone [phone] Care Team Providers Care Battery Starter Name Role Phone Mauro Watson DO Primary Care Provider Reason for Visit * Reason Comments Chemotherapy Alimta/Carboplatin * Episode Based Medications (Routine) - Authorized Specialty Diagnoses / Procedures Referred By Contulises t Referred To Contact Diagnoses Encounter for antineoplastic chemotherapy 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) Malignant neoplasm of left lung, unspecified part of lung (HCC) Procedures [place] INJ. PEMETREXED NOS 10MG [place] CARBOPLATIN INJECTION [place] FOSAPREPITANT INJECTION Lasha Christine MD 200 [facility] [place] [address] Anc Hem/Onc [address] [address] Referral ID Status Reason Start Date Expiration Date V isits Requested Visits Authorized [id number] Authorized 08/22/2023 04/28/2099 999 99 Encounter Details Date Type Department Care Team (Latest Contact Info) Description 08/23/2023 9:45 AM EDT Hem/Onc Treatment Hematology/Oncolog y Treatment, [address] [phone] Diane Chair 2 Hem Onc [address] [place] [address] Encounter for antineoplastic chemotherapy*; Metastatic carcinoma involving [...] EGFR 72 Lumbar radiculopathy 05/27/2019 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 05/05/2019 History of colon polyps 08/12/2018 ACEI/ARB contraindicated 09/21/2016 Carotid aneurysm, left 09/13/2015 Overview: S/p coil embolization Cerebral aneurysm, nonruptured 09/05/2015 AAA (abdominal aortic aneurysm) 06/20/2015 Overview: S/p repair Bilateral carotid artery disease 06/20/2015 Medical home patient encounter 05/19/2014 Hypertriglyceridemia 05/16/2012 CORON ATHEROSCL [place] CORON VESSEL 07/11/2010 Dyslipidemia, goal LDL below [...] Description 09/13/2023 8:30 AM EDT Laboratory Laboratory [facility] [place] [phone] Diane, Lab [address] [facility] [place] [address] 09/13/2023 9:00 AM EDT Office Visit Hematology/Oncology [facility] 200 [facility] [place] [phone] Enriqueta Souza CRNP 400 [place] [address] 09/13/2023 9:30 AM EDT Hem/Onc Treatment [facility]ematology[facility]Oncology Treatment, [place] [facility] [phone] Diane, Chair 5 Hem Onc [address] [place] [address] 10/30/2023 1:00 PM EDT Telemedicine Neurosurgery, [place] [address] [place] [address] Dashawn Haines MD [address] [place] [address] 11/05/2023 3:25 PM EDT Office Visit [facility] [place] [address] Wiliam Tam DO [address] [place] [phone] 12/17/2023 10:00 AM EDT Appointment Vascular Lab [place] [address] [place] [address] 12/17/2023 10:30 AM EDT Office Visit Vascular Surg [place] [address] [place] [address] Margarito Cabrera MD [facility] [address] Scheduled Procedures Name Priority Associated Diagnoses Date/Ti [...] this encounter Medical Devices Implanted Type Area Special Education Coordinator Device Identifier Shelf Expiration Date Model / Serial / Lot Stent Main Body Uiym-77-09-Zt - [id number] Implanted:Qty: 1 on 06/10/2014 by Ronal Gallegos MD at OR [facility] Aorta [employer]OOK [employer] 04/07/2016 TFFB-24-8 2-ZT / / Graft Iliac Leg Spirlz 29g96he - [id number] Implanted:Qty: 1 on 06/10/2014 by Ronal Gallegos MD at OR [facility] Right: Aorta [employer]OOK GROUP 10/09/2015 [id number] / / [id number] Description: Graft Iliac Leg Spirlz 40i67fs - [id number] Implanted:Qty: 1 on 06/10/2014 by Ronal Gallegos MD at OR [facility] Right: Femoral Artery [employer] 11/07/2016 [id number] / / [id number] Stent Polmer 29mm P3110 - [id number] Implanted:Qty: 1 on 06/10/2014 by Ronal Gallegos MD at OR [facility] N/A: Aorta JNJ : CORDIS ENDOVASCULAR 07/26/2018 P3110 / / [id number] Codman Orbit Galaxy Coil 2.5mm X 3.5cm Implanted:Qty: 1 on 09/12/2015 by Arik Shin MD at OR [facility] Left: Head LENORA & Lion Street[employer]IG [place]OCK 02/26/2017 [id number] / [id number] / [id number] Description:COMPLEX XTRASOFT detachable coil deployed left internal carotid artery Codman Orbit Galaxy Coil 2.5mm X 2.5cm Implanted:Qty: 1 on 09/12/2015 by Arik Shin MD at OR [facility] Left: Head LENORA & Lion StreetMAN 01/27/2016 [id number] / [id number] / [id number] Description:COMPLEX XTRASOFT detachable coil deployed left internal carotid artery aneurysm Codman [place] 2 Stent 4mm X 30mm Implanted:Qty: 1 on 09/12/2015 by Arik Shin MD at OR [facility] Left: Head LENORA & LENORA DEPUY 03/26/2018 [id number] / [id number] / [id number] Description:Vascular reconst ruction device deployed in left internal carotid artery Codman Orbit Galaxy Coil 6mm X 20cm Implanted:Qty: 1 on 09/12/2015 by Arik Shin MD at OR [facility] Left: Head LENORA & LENORA CODMAN 09/26/2016 [id number] / [id number] / [id number] Description:COMPLEX FILL det achable coil deployed left internal carotid artery aneurysm Codman Orbit Galaxy Coil 4mm X 10cm Implanted:Qty: 1 on 09/12/2015 by Arik Shin MD at OR [facility] Left: Head LENORA & LENORA [facility] 10/27/2015 [id number] 0 / [id number] / [id number] Description:COMPLEX XTRASOFT detachable coil deployed left internal carotid artery aneurysm Codman Orbit Galaxy Coil 3.5mm X 9cm Implanted:Qty: 1 on 09/12/2015 by Arik Shin MD at OR [facility] Left: Head LENORA & LENORA CODMAN 12/28/2015 [id number] / [id number] / [id number] Description:COMPLEX XTRASOFT detachable coil deployed left internal carotid artery aneurysm Codman Orbit Galaxy Coil 3mm X 6cm Implanted:Qty: 1 on 09/12/2015 by Arik Shin MD at OR [facility] Left: Head LENORA & LENORA CODMAN 04/28/2017 [id number] / [id number] / [id number] Description:COMPLEX XTRASOFT detachable coil deployed left internal carotid artery aneurysm Lens Intraoc 21.0 - [id number] - [id number] Implanted:Qty: 1 on 11/08/2020 by Yuri Bradley MD at OR [facility] Left: Eye BAUSCH & LOMB 06/26/2025 [id number] / [id number] Lens Intraoc 20.5 - [id number] - [id number] Implanted:Qty: 1 on 11/22/2020 by Yuri Bradley MD at OR [facility] Right: Eye BAUSCH & LOMB 07/27/2025 [id number] / [id number] Clip Quick 2.8mm 230cm - [id number] Implanted:Qty: 3 on 03/29/2021 by Luciana Fernandez MD at ENDOSCOPY [facility] [employer] 08/27/2023 HX-202UR. A / / Sureclip 16mm 235cm - [id number] Implanted:Qty: 2 on 05/07/2022 by Luciana Fernandez MD at ENDOSCOPY [facility] Colon MICRO TECH ENDOSCOPY 07/06/2024 [id number] / / Power Port 8fr Sngl Lumen Plas - [id number] Implanted:Qty: 1 on 01/30/2023 by Koko Santiago MD at OR [facility] N/A: Chest CR BARD : PERIPHERAL VASCULAR 07/27/2024 [id number] / / [id number] Power Port 8fr Sngl Lumen Plas - [id number] Implanted:Qty: 1 on 01/30/2023 by Koko Santiago MD at [facility] CR BARD : PERIPHERAL VASCULAR [id number] 07/27/2024 [id number] / / [id number] documented as of this encounter Visit Diagnoses [...] and were consensually agreed upon. Care Teams Battery Starter Relationship Specialty Start Date End Date Mauro Watson DO [address] [place] [address] PCP - General Family Medicine 04/13/19 documented as of this encounter
--- OUTSIDE RECORDS SUMMARY | 2024-02-19 09:36 | External Medical Summary | Summary of Care ---
Author Name Unknown Organization [facility] Address [address] [place] [address] Phone [phone] Care Team Providers Care Contracting Support Specialist Name Role Phone Mauro Watson DO Primary Care Provider Reason for Visit * Reason Comments Chemotherapy Alimta/Carboplatin * Episode Based Medications (Routine) - Authorized Specialty Diagnoses / Procedures Referred By Contulises t Referred To Contact Diagnoses Encounter for antineoplastic chemotherapy 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) Malignant neoplasm of left lung, unspecified part of lung (HCC) Procedures [place] INJ. PEMETREXED NOS 10MG [place] CARBOPLATIN INJECTION [place] FOSAPREPITANT INJECTION Lasha Christine MD 200 [facility] [place] [address] Anc Hem/Onc [address] [address] Referral ID Status Reason Start Date Expiration Date V isits Requested Visits Authorized [id number] Authorized 08/22/2023 04/28/2099 999 99 Encounter Details Date Type Department Care Team (Latest Contact Info) Description 08/23/2023 9:45 AM EDT Hem/Onc Treatment Hematology/Oncolog y Treatment, [address] [phone] Diane Chair 2 Hem Onc [address] [place] [address] Encounter for antineoplastic chemotherapy*; Metastatic carcinoma involving [...] Lumbar radiculopathy 05/27/2019 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 200 [facility] [place] [phone] Diane, Lab [address] [facility] [place] [address] 09/13/2023 9:00 AM EDT Office Visit Hematology/Oncology [facility] 200 [facility] [place] [phone] Enriqueta Souza CRNP 400 [place] [address] 09/13/2023 9:30 AM EDT Hem/Onc Treatment Hematology/Oncology Treatment, [place] 200 [facility] [phone] Diane, Chair 5 Hem Onc [address] [place] [address] 10/30/2023 1:00 PM EDT Telemedicine Neurosurgery, [place] [address] [place] [address] Dashawn Haines MD [address] [place] [address] 11/05/2023 3:25 PM EDT Office Visit [facility] Center, [facility] [place] [address] Wiliam Tam DO [address] [place] [phone] 12/17/2023 10:00 AM EDT Appointment Vascular Lab [place] [address] [place] [address] 12/17/2023 10:30 AM EDT Office Visit Vascular Surg [place] [address] [place] [address] Margarito Cabrera MD [facility] [place] [address] Scheduled Procedures Name Priority Associated Diagnoses Date/Ti [...] this encounter Medical Devices Implanted Type Area Fashion Consultant Selling Device Identifier Shelf Expiration Date Model / Serial / Lot Stent Main Body Uwtt-98-22-Zt - [id number] Implanted:Qty: 1 on 06/10/2014 by Ronal Gallegos MD at OR [facility] Aorta [employer] 04/07/2016 TFFB-24-8 2-ZT / / Graft Iliac Leg Spirlz 24g30ct - [id number] Implanted:Qty: 1 on 06/10/2014 by Ronal Gallegos MD at OR [facility] Right: Aorta [employer] 10/09/2015 T35141 / / [id number] Description: Graft Iliac Leg Spirlz 59w70oa - [id number] Implanted:Qty: 1 on 06/10/2014 by Ronal Gallegos MD at OR [facility] Right: Femoral Artery [employer] [employer] 11/07/2016 [id number] / / [id number] Stent Polmer 29mm P3110 - [id number] Implanted:Qty: 1 on 06/10/2014 by Ronal Gallegos MD at OR [facility] N/A: Aorta JNJ : CORDIS ENDOVASCULAR 07/26/2018 P3110 / / [id number] Codman Orbit Galaxy Coil 2.5mm X 3.5cm Implanted:Qty: 1 on 09/12/2015 by Arik Shin MD at OR [facility] Left: Head LENORA & Cognitive Networks[place] 02/26/2017 [id number] / [id number] / [id number] Description:COMPLEX XTRASOFT detachable coil deployed left internal carotid artery Codman Orbit Galaxy Coil 2.5mm X 2.5cm Implanted:Qty: 1 on 09/12/2015 by Arik Shin MD at OR [facility] Left: Head LENORA & Cognitive NetworksMAN 01/27/2016 [id number] / [id number] / [id number] Description:COMPLEX XTRASOFT detachable coil deployed left internal carotid artery aneurysm Codman [place] 2 Stent 4mm X 30mm Implanted:Qty: 1 on 09/12/2015 by Arik Shin MD at OR [facility] Left: Head LENORA & LENORA DEPUY 03/26/2018 [id number] / [id number] / [id number] Description:Vascular reconst ruction device deployed in left internal carotid artery Codman Orbit Galaxy Coil 6mm X 20cm Implanted:Qty: 1 on 09/12/2015 by Arik Shin MD at OR [facility] Left: Head LENORA & LENORA CODMAN 09/26/2016 [id number] / [id number] / [id number] Description:COMPLEX FILL det achable coil deployed left internal carotid artery aneurysm Codman Orbit Galaxy Coil 4mm X 10cm Implanted:Qty: 1 on 09/12/2015 by Arik Shin MD at OR [facility] Left: Head LENORA & LENORA [facility] 10/27/2015 [id number] 0 / [id number] / [id number] Description:COMPLEX XTRASOFT detachable coil deployed left internal carotid artery aneurysm Codman Orbit Galaxy Coil 3.5mm X 9cm Implanted:Qty: 1 on 09/12/2015 by Arik Shin MD at OR [facility] Left: Head LENORA & LENORA CODMAN 12/28/2015 [id number] / [id number] / [id number] Description:COMPLEX XTRASOFT detachable coil deployed left internal carotid artery aneurysm Codman Orbit Galaxy Coil 3mm X 6cm Implanted:Qty: 1 on 09/12/2015 by Arik Shin MD at OR [facility] Left: Head LENORA & LENORA CODMAN 04/28/2017 [id number] / [id number] / [id number] Description:COMPLEX XTRASOFT detachable coil deployed left internal carotid artery aneurysm Lens Intraoc 21.0 - [id number] - [id number] Implanted:Qty: 1 on 11/08/2020 by Yuri Bradley MD at OR [facility] Left: Eye BAUSCH & LOMB 06/26/2025 [id number] / [id number] Lens Intraoc 20.5 - [id number] - [id number] Implanted:Qty: 1 on 11/22/2020 by Yuri Bradley MD at OR [facility] Right: Eye BAUSCH & LOMB 07/27/2025 [id number] / [id number] Clip Quick 2.8mm 230cm - [id number] Implanted:Qty: 3 on 03/29/2021 by Luciana Fernandez MD at ENDOSCOPY [facility] [employer] 08/27/2023 HX-202UR. A / / Sureclip 16mm 235cm - [id number] Implanted:Qty: 2 on 05/07/2022 by Luciana Fernandez MD at ENDOSCOPY [facility] Colon MICRO TECH ENDOSCOPY 07/06/2024 [id number] / / Power Port 8fr Sngl Lumen Plas - [id number] Implanted:Qty: 1 on 01/30/2023 by Koko Santiago MD at OR [facility] N/A: Chest CR BARD : PERIPHERAL VASCULAR 07/27/2024 [id number] / / [id number] Power Port 8fr Sngl Lumen Plas - [id number] Implanted:Qty: 1 on 01/30/2023 by Koko Santiago MD at [facility] CR BARD : PERIPHERAL VASCULAR [id number] 07/27/2024 [id number] / / [id number] documented as of this encounter Visit Diagnoses [...] and were consensually agreed upon. Care Teams Contracting Support Specialist Relationship Specialty Start Date End Date Mauro Watson DO [address] [place] [address] PCP - General Family Medicine 04/13/19 documented as of this encounter
--- OUTSIDE RECORDS SUMMARY | 2024-02-19 09:36 | External Medical Summary | Summary of Care ---
Author Name Unknown Organization [facility] Address [address] [place] [address] Phone [phone] Care Team Providers Care Photolith Operator Name Role Phone Mauro Watson DO Primary Care Provider Reason for Visit * Reason Comments Chemotherapy Alimta/Carboplatin * Episode Based Medications (Routine) - Authorized Specialty Diagnoses / Procedures Referred By Contulises t Referred To Contact Diagnoses Encounter for antineoplastic chemotherapy 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) Malignant neoplasm of left lung, unspecified part of lung (HCC) Procedures [place] INJ. PEMETREXED NOS 10MG [place] CARBOPLATIN INJECTION [place] FOSAPREPITANT INJECTION Lasha Christine MD 200 [facility] [place] [address] Anc Hem/Onc [address] [address] Referral ID Status Reason Start Date Expiration Date V isits Requested Visits Authorized [id number] Authorized 08/22/2023 04/28/2099 999 99 Encounter Details Date Type Department Care Team (Latest Contact Info) Description 08/23/2023 9:45 AM EDT Hem/Onc Treatment Hematology/Oncolog y Treatment, [address] [phone] Diane Chair 2 Hem Onc [address] [place] [address] Encounter for antineoplastic chemotherapy*; Metastatic carcinoma involving [...] EGFR 72 Lumbar radiculopathy 05/27/2019 Atherosclerosis of [place] co ronary artery of [place] heart with angina pectoris 05/05/2019 History of colon polyps 08/12/2018 ACEI/ARB contraindicated 09/21/2016 Carotid aneurysm, left 09/13/2015 Overview: S/p coil embolization Cerebral aneurysm, nonruptured 09/05/2015 AAA (abdominal aortic aneurysm) 06/20/2015 Overview: S/p repair Bilateral carotid artery disease 06/20/2015 Medical home patient encounter 05/19/2014 Hypertriglyceridemia 05/16/2012 CORON ATHEROSCL [place] CORON VESSEL 07/11/2010 Dyslipidemia, goal LDL below [...] Description 09/13/2023 8:30 AM EDT Laboratory Laboratory [facility] 200 [facility] [phone] Diane, Lab [address] [facility] [place] [address] 09/13/2023 9:00 AM EDT Office Visit Hematology/Oncology [facility] 200 [facility] [place] [phone] Enriqueta Souza CRNP 400 [place] [address] 09/13/2023 9:30 AM EDT Hem/Onc Treatment Hematology/Oncology Treatment, [place] [facility] [phone] Diane, Chair 5 Hem Onc [address] [place] [address] 10/30/2023 1:00 PM EDT Telemedicine Neurosurgery, [place] [address] [place] [address] Dashawn Haines MD [address] [place] [address] 11/05/2023 3:25 PM EDT Office Visit [facility], [facility] [place] [address] Wiliam Tam DO [address] [place] [phone] 12/17/2023 10:00 AM EDT Appointment Vascular Lab [place] [address] [place] [address] 12/17/2023 10:30 AM EDT Office Visit Vascular Surg [place] [address] [place] [address] Margarito Cabrera MD [facility] [place] [address] Scheduled Procedures Name Priority Associated Diagnoses Date/Ti [...] this encounter Medical Devices Implanted Type Area Product Marketing Intern Device Identifier Shelf Expiration Date Model / Serial / Lot Stent Main Body Ijkq-46-65-Zt - [id number] Implanted:Qty: 1 on 06/10/2014 by Ronal Gallegos MD at OR [facility] Aorta [employer]OOK [employer] 04/07/2016 TFFB-24-8 2-ZT / / Graft Iliac Leg Spirlz 37b95li - [id number] Implanted:Qty: 1 on 06/10/2014 by Ronal Gallegos MD at OR [facility] Right: Aorta [employer] 10/09/2015 [id number] / / [id number] Description: Graft Iliac Leg Spirlz 85s01ol - [id number] Implanted:Qty: 1 on 06/10/2014 by Ronal Gallegos MD at OR [facility] Right: Femoral Artery [employer] [employer] 11/07/2016 [id number] / / [id number] Stent Polmer 29mm P3110 - [id number] Implanted:Qty: 1 on 06/10/2014 by Ronal Gallegos MD at OR [facility] N/A: Aorta JNJ : CORDIS ENDOVASCULAR 07/26/2018 P3110 / / [id number] Codman Orbit Galaxy Coil 2.5mm X 3.5cm Implanted:Qty: 1 on 09/12/2015 by Arik Shin MD at OR [facility] Left: Head LENORA & VMRay GmbHGADSDEN 02/26/2017 [id number] / [id number] / [id number] Description:COMPLEX XTRASOFT detachable coil deployed left internal carotid artery Codman Orbit Galaxy Coil 2.5mm X 2.5cm Implanted:Qty: 1 on 09/12/2015 by Arik Shin MD at OR [facility] Left: Head LENROA & VMRay GmbHMAN 01/27/2016 [id number] / [id number] / [id number] Description:COMPLEX XTRASOFT detachable coil deployed left internal carotid artery aneurysm Codman [place] 2 Stent 4mm X 30mm Implanted:Qty: 1 on 09/12/2015 by Arik Shin MD at OR [facility] Left: Head LENORA & LENORA DEPUY 03/26/2018 [id number] / [id number] / [id number] Description:Vascular reconst ruction device deployed in left internal carotid artery Codman Orbit Galaxy Coil 6mm X 20cm Implanted:Qty: 1 on 09/12/2015 by Arik Shin MD at OR [facility] Left: Head LENORA & LENORA CODMAN 09/26/2016 [id number] / [id number] / [id number] Description:COMPLEX FILL det achable coil deployed left internal carotid artery aneurysm Codman Orbit Galaxy Coil 4mm X 10cm Implanted:Qty: 1 on 09/12/2015 by Arik Shin MD at OR [facility] Left: Head LENORA & LENORA [facility] 10/27/2015 [id number] 0 / [id number] / [id number] Description:COMPLEX XTRASOFT detachable coil deployed left internal carotid artery aneurysm Codman Orbit Galaxy Coil 3.5mm X 9cm Implanted:Qty: 1 on 09/12/2015 by Arik Shin MD at OR [facility] Left: Head LENORA & LENORA CODMAN 12/28/2015 [id number] / [id number] / [id number] Description:COMPLEX XTRASOFT detachable coil deployed left internal carotid artery aneurysm Codman Orbit Galaxy Coil 3mm X 6cm Implanted:Qty: 1 on 09/12/2015 by Arik Shin MD at OR [facility] Left: Head LENORA & LENORA CODMAN 04/28/2017 [id number] / [id number] / [id number] Description:COMPLEX XTRASOFT detachable coil deployed left internal carotid artery aneurysm Lens Intraoc 21.0 - [id number] - [id number] Implanted:Qty: 1 on 11/08/2020 by Yuri Bradley MD at OR [facility] Left: Eye BAUSCH & LOMB 06/26/2025 [id number] / [id number] Lens Intraoc 20.5 - [id number] - [id number] Implanted:Qty: 1 on 11/22/2020 by Yuri Bradley MD at OR [facility] Right: Eye BAUSCH & LOMB 07/27/2025 [id number] / [id number] Clip Quick 2.8mm 230cm - [id number] Implanted:Qty: 3 on 03/29/2021 by Luciana Fernandez MD at ENDOSCOPY [facility] [employer] 08/27/2023 HX-202UR. A / / Sureclip 16mm 235cm - [id number] Implanted:Qty: 2 on 05/07/2022 by Luciana Fernandez MD at ENDOSCOPY [facility] Colon MICRO TECH ENDOSCOPY 07/06/2024 [id number] / / Power Port 8fr Sngl Lumen Plas - [id number] Implanted:Qty: 1 on 01/30/2023 by Koko Santiago MD at OR [facility] N/A: Chest CR BARD : PERIPHERAL VASCULAR 07/27/2024 [id number] / / [id number] Power Port 8fr Sngl Lumen Plas - [id number] Implanted:Qty: 1 on 01/30/2023 by Koko Santiago MD at [facility] CR BARD : PERIPHERAL VASCULAR [id number] 07/27/2024 [id number] / / [id number] documented as of this encounter Visit Diagnoses [...] and were consensually agreed upon. Care Teams Photolith Operator Relationship Specialty Start Date End Date Mauro Watson DO [address] [place] [address] PCP - General Family Medicine 04/13/19 documented as of this encounter
--- OUTSIDE RECORDS SUMMARY | 2024-02-19 09:36 | External Medical Summary | Summary of Care ---
Author Name Unknown Organization [facility] Address [address] [place] [address] Phone [phone] Care Team Providers Care Music Video Producer Name Role Phone Mauro Watson DO Primary Care Provider Reason for Visit * Reason Onset Date Comments Information 09/11/2023 Encounter Details Date Type Department Care Team ([facility] st Contact Info) Description 09/11/2023 Telephone Hematology/Oncology Treatment, [place] [address] [place] [address] Lasha Christine MD [address] [place] [address] Information Allergies Active Allergy Reactions Criticality Noted [...] patient encounter 05/19/2014 Hypertriglyceridemia 05/16/2012 CORON ATHEROSCL [place] CORON VESSEL 07/11/2010 Dyslipidemia, goal LDL [...] Per Dr Christine: "Lasha Christine MD P [facility] Hem/Onc Nurse Pool/Class; Enriqueta Souza CRNP [place], Dr. Bejarano from [facility] spoke with me about his [...] State Radha Rosado [address] [place] [phone] [place] [address] 09/13/2023 9:00 AM EDT Office Visit Hematology/Oncology [place] Radha Rosado [address] [place] [phone] Enriqueta Souza CRNP [address] [facility] [place] [address] 09/13/2023 9:30 AM EDT Hem/Onc Treatment Hematology/Oncology Treatment, [place] [address] [place], [place] [phone] [place], Chair 5 Hem Onc Scenery [address] [place] [address] 10/30/2023 1:00 PM EDT Telemedicine Neurosurgery, [place] [address] [place] [address] Dashawn Haines MD [address] [place] [address] 11/05/2023 3:25 PM EDT Office Visit Interventional [facility], [facility] [address] [place] [address] Wiliam Tam DO [address] [place] [phone] 12/17/2023 10:00 AM EDT Appointment Vascular Lab [facility] [address] [place] [address] 12/17/2023 10:30 AM EDT Office Visit Vascular Surg [facility] [address] [place] [address] Margarito Cabrera MD [address] [place] [address] Scheduled Procedures Name Priority Associated Diagnoses Date/Ti [...] this encounter Medical Devices Implanted Type Area Vegetable Washer Device Identifier Shelf Expiration Date Model / Serial / Lot Stent Main Body [id number]-99-47-[id number] - [id number] Implanted:Qty: 1 on 06/10/2014 by [place]onal [place] [facility] Aorta [employer] 04/07/2016 TFFB-24-8 2-ZT / / Graft Iliac Leg Spirlz 85o69wm - [id number] Implanted:Qty: 1 on 06/10/2014 by Ronal [place] [facility]: Aorta [employer] 10/09/2015 [id number] / / [id number] Description: Graft Iliac Leg Spirlz 10d75py - [id number] Implanted:Qty: 1 on 06/10/2014 by Ronal Gal[place] [facility]: Femoral Artery [employer] 11/07/2016 [id number] / / [id number] Stent Polmer 29mm P3110 - [id number] Implanted:Qty: 1 on 06/10/2014 by Ronal Gal[place] [facility] [place]/A: Aorta JNJ : CORDIS ENDOVASCULAR 07/26/2018 [id number] / / [id number] Codman Orbit Galaxy Coil 2.5mm X 3.5cm Implanted:Qty: 1 on 09/12/2015 by Arik Shin [place] [facility]: Head LENORA & LENORA CODTORNADO 02/26/2017 [id number] / [id number] / [id number] Description:COMPLEX XTRASOFT detachable coil deployed left internal carotid artery Codman Orbit Galaxy Coil 2.5mm X 2.5cm Implanted:Qty: 1 on 09/12/2015 by Arik Shin [place] [facility] [place]: Head LENORA & LENORA [facility] 01/27/2016 [id number] / [id number] / [id number] Description:COMPLEX XTRASOFT detachable coil deployed left internal carotid artery aneurysm Codman [place] 2 Stent 4mm X 30mm Implanted:Qty: 1 on 09/12/2015 by Arik Shin [place] [facility] [place]: Head LENORA & LENORA DEPUY 03/26/2018 [id number] / [id number] / [id number] Description:Vascular reconst ruction device deployed in left internal carotid artery Codman Orbit Galaxy Coil 6mm X 20cm Implanted:Qty: 1 on 09/12/2015 by Arik Shin [place] [facility]: Head LENORA & LENORA CODMAN 09/26/2016 [id number] / [id number] / [id number] Description:COMPLEX FILL det achable coil deployed left internal carotid artery aneurysm Codman Orbit Galaxy Coil 4mm X 10cm Implanted:Qty: 1 on 09/12/2015 by Arik Shin [place] [facility]: Head LENORA & LENORA CODMAN 10/27/2015 [id number] / [id number] / [id number] Description:COMPLEX XTRASOFT detachable coil deployed left internal carotid artery aneurysm Codman Orbit Galaxy Coil 3.5mm X 9cm Implanted:Qty: 1 on 09/12/2015 by Arik Shin [place] [facility]: Head LENORA & LENORA CODMAN 12/28/2015 [id number] / [id number] / [id number] Description:COMPLEX XTRASOFT detachable coil deployed left internal carotid artery aneurysm Codman Orbit Galaxy Coil 3mm X 6cm Implanted:Qty: 1 on 09/12/2015 by Arik Shin [place] [facility] [place]: Head LENORA & LENORA CODMAN 04/28/2017 [id number] / [id number] / [id number] Description:COMPLEX XTRASOFT detachable coil deployed left internal carotid artery aneurysm Lens Intraoc 21.0 - [id number] - [id number] Implanted:Qty: 1 on 11/08/2020 by Yuri Bradley MD at OR [facility] Left: Eye BAUSCH & LOMB 06/26/2025 [id number] / [id number] / [id number] Lens Intraoc 20.5 - [id number] - [id number] Implanted:Qty: 1 on 11/22/2020 by Yuri Bradley MD at OR [facility] Right: Eye BAUSCH & LOMB 07/27/2025 [id number] / [id number] / [id number] Clip Quick 2.8mm 230cm - [id number] Implanted:Qty: 3 on 03/29/2021 by Luciana Fernandez MD at ENDOSCOPY [facility] [employer] 08/27/2023 HX-202UR. A / / Sureclip 16mm 235cm - [id number] Implanted:Qty: 2 on 05/07/2022 by Luciana Fernandez MD at ENDOSCOPY [facility] Colon MICRO TECH ENDOSCOPY 07/06/2024 [id number] / / Power Port 8fr Sngl Lumen Plas - [id number] Implanted:Qty: 1 on 01/30/2023 by Koko Santiago MD at OR [facility] N/A: Chest CR BARD : PERIPHERAL VASCULAR 07/27/2024 [id number] / / [id number] Power Port 8fr Sngl Lumen Plas - [id number] Implanted:Qty: 1 on 01/30/2023 by Koko Santiago MD at OR [facility] CR BARD : PERIPHERAL VASCULAR [id number] 07/27/2024 [id number] / / [id number] documented as of this encounter Advance Directives [...] and were consensually agreed upon. Care Teams Music Video Producer Relationship Specialty Start Date End Date Mauro Watson DO [address] [facility] [place] [address] PCP - General Family Medicine 04/13/19 documented as of this encounter
--- OUTSIDE RECORDS SUMMARY | 2024-02-19 09:37 | External Medical Summary | Summary of Care ---
Author Name Unknown Organization [facility] Address [address] [place] [address] Phone [phone] Care Team Providers Care Business Services Officer Name Role Phone Mauro Watson DO Primary Care Provider Reason for Visit * Reason Comments Chemotherapy C7/D1 - Imfinzi, [place] rosalina, Cisplatin * Episode Based Medications (Routine) - Closed Specialty Diagnoses / Procedures Referred By Edmund t Referred To Contact Diagnoses Cholangiocarcinoma (HCC) Encounter for antineoplastic chemotherapy Procedures MO CISPLATIN 10 MG INJECTION MO FOSAPREPITANT INJECTION MO IN GEMCITABINE HCL NOS 200MG MO INJ., DURVALUMAB, 10 MG Roberta La MD [address] [place] [address] Anc Hem/Onc Nandini Contreras DEPT CLOSED - 03/12/23 [address] [place] [phone] Referral ID Status Reason Start Date Expiration Date Visits Re quested Visits Authorized [id number] Closed 02/25/2023 04/28/[phone] Encounter Details Date Type Department Care Team (Latest Contact Info) Description 07/12/2023 9:00 AM EDT Hem/Onc Treatment Hematology/Oncolo gy Treatment, [place] [address] [place] [address] [place], Chair 3 Hem Onc Scenery [address] [place] [address] Cholangiocarcinoma (HCC)*; Encounter for antineoplastic chemotherapy Allergies Active Allergy Reactions Criticality Noted Date Comments Aspirin Bleeding High 11/26/2011 Significant hemorroidal bleed on aspirin,high doses Duloxetine Hcl Hypertension 01/26/2020 documented as of this encounter (statuses as of 08/30/2023) Medications Medication Sig Dispensed Refills Start Date [...] as of this encounter (statuses as of 08/30/2023) Active Problems Problem Noted Date Diagnosed Date 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 01/21/2023 Encounter for antineoplastic chemotherapy 2022 Medical marijuana use 08/26/2021 CKD (chronic kidney disease), stage II 2 Overview: EGFR 72 Lumbar radiculopathy 05/27/2019 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 05/05/2019 History of colon polyps 08/12/2018 ACEI/ARB contraindicated 09/21/2016 Carotid aneurysm, left 09/13/2015 Overview: S/p coil embolization Cerebral aneurysm, nonruptured 09/05/2015 AAA (abdominal aortic aneurysm) 06/20/2015 Overview: S/p repair Bilateral carotid artery disease 06/20/2015 Medical home patient encounter 05/19/2014 Hypertriglyceridemia 05/16/2012 CORON ATHEROSCL [place] CORON VESSEL 07/11/2010 Dyslipidemia, goal LDL below [...] as of this encounter (statuses as of 08/30/2023) Resolved Problems Problem Noted Date Diagnosed Date [...] as of this encounter (statuses as of 08/30/2023) Immunizations Name Administration Dates Next Due COVID-19 [...] Sign Reading Time Taken Comments Blood Pressure 151/87 07/12/2023 2:58 PM EDT Pulse 81 07/12/2023 2:58 PM EDT Temperature 36.9 C (98.4 F) 07/12/2023 9:00 AM ED T Respiratory Rate 18 07/12/2023 9:00 AM EDT Oxygen Saturation 97% 07/12/2023 2:58 PM EDT Inhaled Oxygen Concentration - - [...] Nursing Notes * Niecy Levin RN - 07/12/2023 2:51 PM EDT Goals: Patient will remain free [...] further needs. * Niecy Levin RN - 07/12/2023 9:42 AM EDT Chair 3. Port accessed. Patient here for C7/D1 tx with Imfinzi, Gemzar, Cisplatin. Patient saw Dr. Christine yesterday -- see OV note for details. Patient will continue on this current regimen at this point. Overall patient feeling better, had been somewhat sick last week per pt and feeling like he is getting back to normal but breathing has been somewhat harder with walking/activity but says it is improving at least from last week. Patient did say he discussed with Dr. Christine about previously being sick. Patient feeling up for treatment today, feels well enough and wants to get his tx. Patient's HR is elevated in high 90s-low 100s, which patient says is high for him, will recheck VS later after patient sits. Patient does say his breathing goes back to normal after sitting down.RN educated to patient that he should monitor for signs if his breathing does get worse as sometimes immunotherapy can cause some issues like this and to let us know about worsening effects/increasing SOB. Chemotherapy/Immunotherapy agents: Imfinzi, CISPLATIN, and GEMZAR Consent for chemotherapy drug treatment complete, dated, and signed? yes, date - 03/04/2023 Treatment lab parameters met? Yes Has treatment weight changed > than 10%? No Treatment preauthorized? Yes VITALS Filed Vitals: 07/12/23 0900 BP: 158/91 Pulse: 98 Resp: 18 Temp: 36.9 C (98.4 F) TempSrc: Tympanic SpO2: 96% Urine protein: N/A Patient education completed for [...] side effects during treatment. PRE-TREATMENT ASSESSMENT: NEURO: denies symptoms CV/RESP: shortness of breath: see above, only with activity and getting over being sick last week, feeling better GI/: nausea: occasional upset stomach, takes PRN nauseas meds at home just about every day OTHER: denies any additional symptoms PAIN: 0 Safety and Risk for Injury Patient will remain free from injury. Ensure appropriate safety devices are available. Provide and maintain safe environment. documented in this encounter Plan of Treatment Upcoming Encounters Date Type Department Care Team (Late st Contact Info) Description 09/13/2023 8:30 AM EDT Laboratory Laboratory [facility] [address] [facility] [place] [place] [phone] [place], Lab [facility] [address] [facility] [place] [address] 09/13/2023 9:00 AM EDT Office Visit Hematology/Oncology [facility] [address] [facility] [place] [address] Enriqueta Souza CRNP [address] [place] [address] 09/13/2023 9:30 AM EDT Hem/Onc Treatment [facility] [place] [facility] [address] [place], Chair 5 Hem Onc [facility] [address] [facility] [place] [address] 10/30/2023 1:00 PM EDT Telemedicine Neurosurgery, [address] [address] Dashawn Haines MD [address] [place] [address] 12/17/2023 10:00 AM EDT Appointment Vascular Lab [facility], [address] [address] 12/17/2023 10:30 AM EDT Office Visit Vascular Surg [facility], [address] [address] Margarito Cabrera MD [address] [place] [address] Scheduled Procedures Name Priority Associated Diagnoses Date/Ti [...] encounter Medical Devices Implanted Type Area Business Manager Device Identifier Shelf Expiration Date Model / Serial / Lot Stent Main Body Igxl-64-41-[id number] - [id number] Implanted:Qty: 1 on 06/10/2014 [place]onal [place] [facility] [employer]orta [employer] 04/07/2016 TFFB-24-8 2-ZT / / Graft Iliac Leg Spirlz [id number] - [id number] Implanted:Qty: 1 on 06/10/2014 by Ronal [place] [facility] [place]: Aorta [employer] 10/09/2015 [id number] / / [id number] Description: Graft Iliac Leg Spirlz 46i15hv - [id number] Implanted:Qty: 1 on 06/10/2014 by Ronal [place] [facility] [place]: Femoral Artery [employer] 11/07/2016 [id number] / / [id number] Stent Polmer 29mm P3110 - [id number] Implanted:Qty: 1 on 06/10/2014 by Ronal Galleg[place] [facility] [place]A: Aorta JNJ : CORDIS ENDOVASCULAR 07/26/2018 P3110 / / [id number] Codman Orbit Galaxy Coil 2.5mm X 3.5cm Implanted:Qty: 1 on 09/12/2015 by Arik Shin MD [place] [facility] [place]: Head LENORA [employer] LENORA CODMAN 02/26/2017 [id number] / [id number] / [id number] Description:COMPLEX XTRASOFT detachable coil deployed left internal carotid artery Codman Orbit Galaxy Coil 2.5mm X 2.5cm Implanted:Qty: 1 on 09/12/2015 by Arik Shin [place] [facility] [place]: Head LENORA & LENORA CODMAN 01/27/2016 [id number] / [id number] / [id number] Description:COMPLEX XTRASOFT detachable coil deployed left internal carotid artery aneurysm Codman [place] 2 Stent 4mm X 30mm Implanted:Qty: 1 on 09/12/2015 by Arik Shin MD [place] [facility] [place]: Head LENORA & LENORA DEPUY 03/26/2018 [id number] / [id number] / [id number] Description:Vascular reconst ruction device deployed in left internal carotid artery Codman Orbit Galaxy Coil 6mm X 20cm Implanted:Qty: 1 on 09/12/2015 by Arik Shin MD [place] [facility] [place]: Head LENORA & LENORA CODMAN 09/26/2016 [id number] / [id number] / [id number] Description:COMPLEX FILL det achable coil deployed left internal carotid artery aneurysm Codman Orbit Galaxy Coil 4mm X 10cm Implanted:Qty: 1 on 09/12/2015 by Arik Shin MD [place] [facility] [place]: Head LENORA & LENORA CODMAN 10/27/2015 [id number] / [id number] / [id number] Description:COMPLEX XTRASOFT detachable coil deployed left internal carotid artery aneurysm Codman Orbit Galaxy Coil 3.5mm X 9cm Implanted:Qty: 1 on 09/12/2015 by Arik Shin MD [place] [facility] [place]: Head LENORA & LENORA CODMAN 12/28/2015 [id number] / [id number] / [id number] Description:COMPLEX XTRASOFT detachable coil deployed left internal carotid artery aneurysm Codman Orbit Galaxy Coil 3mm X 6cm Implanted:Qty: 1 on 09/12/2015 by Arik Shin MD [place] [facility] [place]: Head LENORA & LENORA CODMAN 04/28/2017 [id number] / [id number] / [id number] Description:COMPLEX XTRASOFT detachable coil deployed left internal carotid artery aneurysm Lens Intraoc 21.0 - [id number] - [id number] Implanted:Qty: 1 on 11/08/2020 by Yuri Bradley MD at OR [facility] Left: Eye BAUSCH & LOMB 06/26/2025 [id number] / [id number] / [id number] Lens Intraoc 20.5 - [id number] - [id number] Implanted:Qty: 1 on 11/22/2020 by Yuri Bradley MD at OR [facility] Right: Eye BAUSCH & LOMB 07/27/2025 [id number] / [id number] Clip Quick 2.8mm 230cm - [id number] Implanted:Qty: 3 on 03/29/2021 by Luciana Fernandez MD at ENDOSCOPY [facility] [employer] 08/27/2023 HX-202UR. A / / Sureclip 16mm 235cm - [id number] Implanted:Qty: 2 on 05/07/2022 by Luciana Fernandez MD at ENDOSCOPY [facility] Colon MICRO TECH ENDOSCOPY 07/06/2024 [id number] / / Power Port 8fr Sngl Lumen Plas - [id number] Implanted:Qty: 1 on 01/30/2023 by Koko Santiago MD at OR [facility] N/A: Chest CR BARD : PERIPHERAL VASCULAR 07/27/2024 [id number] / / [id number] Power Port 8fr Sngl Lumen Plas - [id number] Implanted:Qty: 1 on 01/30/2023 by Koko Santiago MD at OR [facility] CR BARD : PERIPHERAL VASCULAR [id number] 07/27/2024 [id number] / / [id number] documented as of this encounter Visit Diagnoses [...] PROTECT FROM LIGHT, ONCE, 1 dose, On Sat07/12/23 at 1230 Start Infusion 07/12/2023 11:50 AM EDT 48 mg 250 mL/hr Durvalumab (Imfinzi) 1,500 mg in NSS 250 mL infusion 1,500 mg, IV Piggyback, ONCE, 1 dose, On Sat07/12/23 at 1100, Administer over 60 Minutes, Administer through 0.22 micron low protein binding filter! Final Concentration between 1-15 mg/mL Start Infusion 07/12/2023 10:13 AM EDT 1,500 mg 250 mL/hr Fosaprepitant Dimeglumine (Emend) 150 mg, ondansetron (Zofran) 16 mg, dexamethasone sodium phosphate 12 mg in NSS 250 mL Infusion 150 mg, IV Piggyback, ONCE, 1 dose, On Sat07/12/23 at 1030, Administer over 30 Minutes, Give 30 minutes prior to chemotherapy. Infuse over 30 minutes. Start Infusion 07/12/2023 9:24 AM EDT 150 mg 500 mL/hr gemcitabine (Gemzar) 2,000 mg in NSS 250 mL infusion 2,000 mg (rounded from 1,920 mg = 1,000 mg/m2 1.92 m2 Treatment Plan BSA from Recorded weight), IV Piggyback, ONCE, 1 dose, On Sat07/12/23 at 1200, Administer over 30 Minutes Start Infusion 07/12/2023 11:20 AM EDT 2,000 mg 500 mL/hr hEParin 100 UNIT/ML Lock Flush inj 500 Units 500 Units (5 mL), IV Lock, PRN Other, IV Flush, Starting on Sat07/12/23 at 0922, Until Sat07/12/23 at 1905, For 24 hours, Do not flush if lock, PICC, or central line not in place; IV infusing or unable to flush. Given 07/12/2023 2:55 PM EDT 500 Units NSS 1,000 mL with magnesium sulfate 1 g infusion Intravenous, at 500 mL/hr Administer over 2 Hours, Post-cisplatin hydration, CONTINUOUS, Starting on Sat07/12/23 at 1315, Until Sat07/12/23 at 1905 Start Infusion 07/12/2023 12:54 PM EDT 500 mL/hr NSS infusion 1,000 mL, Intravenous, at 500 mL/hr, CONTINUOUS, Starting on Sat07/12/23 at 1030, Until Sat07/12/23 at 1229 Start Infusion 07/12/2023 9:15 AM EDT 1,000 mL 500 mL/hr NSS infusion Intravenous, at 50 mL/hr, PRN, Starting on Sat07/12/23 at 1030, Until Sat07/12/23 at 1905, KVO Start Infusion 07/12/2023 9:15 AM EDT 50 mL/hr potassium chloride ER tab 20 mEq 20 mEq, Oral, ONCE, On Sat07/12/23 at 1315, For 1 dose, This med should NOT be Crushed or Chewed Give with post-hydration. Hold if serum potassium is greater than or equal to 5 mmol/L. Given 07/12/2023 12:54 PM EDT 20 mEq sodium chloride 0.9 % flush central line 10 mL 10 mL, IV Push, PRN Other, IV Flush, Starting on Sat07/12/23 at 0922, Until Sat07/12/23 at 1905, For 24 hours, Do not flush if lock, PICC, or central line not in place; IV infusing or unable to flush. Given 07/12/2023 2:54 PM EDT 10 mL documented in this encounter Advance Directives Latest [...] were consensually agreed upon. Care Teams Business Services Officer Relationship Specialty Start Date End Date Mauro Watson DO [address] [place] [address] PCP - General Family Medicine 04/13/19 documented as of this encounter
--- OUTSIDE RECORDS SUMMARY | 2024-02-19 09:37 | External Medical Summary | Summary of Care ---
Author Name Unknown Organization [facility] Address [address] [place] [address] Phone [phone] Care Team Providers Care Cooking Teacher Name Role Phone Mauro Watson DO Primary Care Provider Reason for Visit * Reason Comments Chemotherapy C7/D1 - Imfinzi, Dougherty rosalina, Cisplatin * Episode Based Medications (Routine) - Closed Specialty Diagnoses / Procedures Referred By Edmund t Referred To Contact Diagnoses Cholangiocarcinoma (HCC) Encounter for antineoplastic chemotherapy Procedures NE CISPLATIN 10 MG INJECTION NE FOSAPREPITANT INJECTION NE IN GEMCITABINE HCL NOS 200MG NE INJ., DURVALUMAB, 10 MG Roberta La MD [address] [place] [address] Anc Hem/Onc Nandini Contreras DEPT CLOSED - 03/12/23 [address] [place] [address] Referral ID Status Reason Start Date Expiration Date Visits Re quested Visits Authorized [id number] Closed 02/25/2023 04/28/[phone] Encounter Details Date Type Department Care Team (Latest Contact Info) Description 07/12/2023 9:00 AM EDT Hem/Onc Treatment Hematology/Oncolo gy Treatment, [place] [address] [place] [address] Diane, [...] EGFR 72 Lumbar radiculopathy 05/27/2019 Atherosclerosis of [place] co ronary artery of [place] heart with angina pectoris 05/05/2019 History of [...] Description 09/13/2023 8:30 AM EDT Laboratory Laboratory [facility] [place] [phone] [place], Lab [facility] [address] [facility] [place] [address] 09/13/2023 9:00 AM EDT Office Visit Hematology/Oncology [facility] [address] [facility] [place] [address] Enriqueta oSuza CRNP [address] [place] [address] 09/13/2023 9:30 AM EDT Hem/Onc Treatment Hematology/[facility]cology [facility], [place] [facility] [address] Diane, Chair 5 Hem Onc [facility] [address] [facility] [place] [address] 10/30/2023 1:00 PM EDT Telemedicine Neurosurgery, [address] [address] Dashawn Haines MD [address] [place] [address] 12/17/2023 10:00 AM EDT Appointment Vascular Lab [facility], [address] [address] 12/17/2023 10:30 AM EDT Office Visit Vascular Surg [facility], [address] [address] Margarito Cabrera MD [address] [place] [address] Scheduled Procedures Name Priority Associated Diagnoses Date/Ti [...] this encounter Medical Devices Implanted Type Area Form Presser Device Identifier Shelf Expiration Date Model / Serial / Lot Stent Main Body Jtrs-39-72-Zt - [id number] Implanted:Qty: 1 on 06/10/2014 by Ronal Gallegos MD at OR [facility] Aorta [employer] 04/07/2016 TFFB-24-8 2-ZT / / Graft Iliac Leg Spirlz 31h46xv - [id number] Implanted:Qty: 1 on 06/10/2014 by Ronal Gallegos MD at OR [facility] Right: Aorta [employer] 10/09/2015 [id number] / / [id number] Description: Graft Iliac Leg Spirlz 15d58ox - [id number] Implanted:Qty: 1 on 06/10/2014 by Ronal Gallegos MD at OR [facility] Right: Femoral Artery [employer] 11/07/2016 [id number] / / [id number] Stent Polmer 29mm P3110 - [id number] Implanted:Qty: 1 on 06/10/2014 by Ronal Gallegos MD at OR [facility] N/A: Aorta JNJ : CORDIS ENDOVASCULAR 07/26/2018 P3110 / / [id number] Codman Orbit Galaxy Coil 2.5mm X 3.5cm Implanted:Qty: 1 on 09/12/2015 by Arik Shin MD at OR [facility] Left: Head LENORA & LENORA CODMAN 02/26/2017 [id number] / [id number] / [id number] Description:COMPLEX XTRASOFT detachable coil deployed left internal carotid artery Codman Orbit Galaxy Coil 2.5mm X 2.5cm Implanted:Qty: 1 on 09/12/2015 by Arik Shin MD at OR [facility] Left: Head LENORA & LENORA CODMAN 01/27/2016 [id number] / [id number] / [id number] Description:COMPLEX XTRASOFT detachable coil deployed left internal carotid artery aneurysm Codman [place] 2 Stent 4mm X 30mm Implanted:Qty: 1 on 09/12/2015 by Arik Shin MD at OR [facility] Left: Head LENORA & LENORA DEPUY 03/26/2018 [id number] / [id number] / [id number] Description:Vascular reconst ruction device deployed in left internal carotid artery Codman Orbit Galaxy Coil 6mm X 20cm Implanted:Qty: 1 on 09/12/2015 by Arik Shin MD at OR [facility] Left: Head LENORA & LENORA CODMAN 09/26/2016 [id number] / [id number] / [id number] Description:COMPLEX FILL det achable coil deployed left internal carotid artery aneurysm Codman Orbit Galaxy Coil 4mm X 10cm Implanted:Qty: 1 on 09/12/2015 by Arik Shin MD at OR [facility] Left: Head LENORA & LENORA CODMAN 10/27/2015 [id number] 0 / [id number] / [id number] Description:COMPLEX XTRASOFT detachable coil deployed left internal carotid artery aneurysm Codman Orbit Galaxy Coil 3.5mm X 9cm Implanted:Qty: 1 on 09/12/2015 by Arik Shin MD at OR [facility] Left: Head LENORA & LENORA CODMAN 12/28/2015 [id number] / [id number] / [id number] Description:COMPLEX XTRASOFT detachable coil deployed left internal carotid artery aneurysm Codman Orbit Galaxy Coil 3mm X 6cm Implanted:Qty: 1 on 09/12/2015 by Arik Shin MD at OR [facility] Left: Head LENORA & LENORA CODMAN 04/28/2017 [id number] / [id number] / [id number] Description:COMPLEX XTRASOFT detachable coil deployed left internal carotid artery aneurysm Lens Intraoc 21.0 - [id number] - [id number] Implanted:Qty: 1 on 11/08/2020 by Yuri Bradley MD at OR [facility] Left: Eye BAUSCH & LOMB 06/26/2025 [id number] / [id number] / [id number] Lens Intraoc 20.5 - [id number] - [id number] Implanted:Qty: 1 on 11/22/2020 by Yuri Bradley MD at OR [facility] Right: Eye BAUSCH & LOMB 07/27/2025 [id number] / [id number] Clip Quick 2.8mm 230cm - [id number] Implanted:Qty: 3 on 03/29/2021 by Luciana Fernandez MD at ENDOSCOPY [facility] [employer] 08/27/2023 HX-202UR. A / / Sureclip 16mm 235cm - [id number] Implanted:Qty: 2 on 05/07/2022 by Luciana Fernandez MD at ENDOSCOPY [facility] Colon MICRO TECH ENDOSCOPY 07/06/2024 [id number] / / Power Port 8fr Sngl Lumen Plas - [id number] Implanted:Qty: 1 on 01/30/2023 by Koko Santiago MD at OR [facility] N/A: Chest CR BARD : PERIPHERAL VASCULAR 07/27/2024 [id number] / / [id number] Power Port 8fr Sngl Lumen Plas - [id number] Implanted:Qty: 1 on 01/30/2023 by Koko Santiago MD at OR [facility] CR BARD : PERIPHERAL VASCULAR [id number] 07/27/2024 [id number] / / [id number] documented as of this encounter Visit Diagnoses [...] and were consensually agreed upon. Care Teams Cooking Teacher Relationship Specialty Start Date End Date Mauro Watson DO [address] [place] [address] PCP - General Family Medicine 04/13/19 documented as of this encounter
--- OUTSIDE RECORDS SUMMARY | 2024-02-19 09:37 | External Medical Summary | Summary of Care ---
Author Name Unknown Organization [facility] Address [address] [place] [address] Phone [phone] Care Team Providers Care International Coordinator Name Role Phone Mauro Watson DO [...] OK FOSAPREPITANT INJECTION Lasha Christine MD 200 [place] [address] Anc Hem/Onc [address] [address] Referral ID Status Reason Start Date Expiration Date V isits Requested Visits Authorized [id number] Authorized 08/22/2023 04/28/2099 999 99 Encounter Details Date Type Department Care Team (Latest Contact Info) Description 08/23/2023 9:45 AM EDT Hem/Onc Treatment Hematology/Oncolog y Treatment, [address] [address] Diane Chair 2 Hem Onc [address] [place] [address] Encounter for antineoplastic chemotherapy*; Metastatic carcinoma involving [...] EGFR 72 Lumbar radiculopathy 05/27/2019 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 05/05/2019 History of colon polyps 08/12/2018 ACEI/ARB contraindicated 09/21/2016 Carotid aneurysm, left 09/13/2015 Overview: S/p coil embolization Cerebral aneurysm, nonruptured 09/05/2015 AAA (abdominal aortic aneurysm) 06/20/2015 Overview: S/p repair Bilateral carotid artery disease 06/20/2015 Medical home patient encounter 05/19/2014 Hypertriglyceridemia 05/16/2012 CORON ATHEROSCL [place] CORON VESSEL 07/11/2010 Dyslipidemia, goal LDL below [...] Description 09/13/2023 8:30 AM EDT Laboratory Laboratory [facility] [address] [facility] [place] [phone] [place], Lab [address] [facility] [place] [address] 09/13/2023 9:00 AM EDT Office Visit Hematology/Oncology [facility] [address] [place] [phone] Enriqueta Souza CRNP [address] [place] [address] 09/13/2023 9:30 AM EDT Hem/Onc Treatment Hematology/Oncology Treatment, [place] [facility] [phone] Diane, Chair 5 Hem Onc [address] [place] [address] 10/30/2023 1:00 PM EDT Telemedicine Neurosurgery, [place] [address] [place] [address] Dashawn Haines MD [address] [place] [address] 11/05/2023 3:25 PM EDT Office Visit [facility] [place] [address] Wiliam Tam DO [address] [place] [phone] 12/17/2023 10:00 AM EDT Appointment Vascular Lab [place] [address] [place] [address] 12/17/2023 10:30 AM EDT Office Visit Vascular Surg [place] [address] [place] [address] Margarito Cabrera MD [facility] [place] [address] Scheduled Procedures Name Priority Associated Diagnoses Date/Ti [...] this encounter Medical Devices Implanted Type Area Riprap Placer Device Identifier Shelf Expiration Date Model / Serial / Lot Stent Main Body Fumc-39-79-Zt - [id number] Implanted:Qty: 1 on 06/10/2014 by Ronal Gallegos MD at OR [facility] Aorta [employer] 04/07/2016 TFFB-24-8 2-ZT / / Graft Iliac Leg Spirlz 69l01gv - [id number] Implanted:Qty: 1 on 06/10/2014 by Ronal Gallegos MD at OR [facility] Right: Aorta [employer] 10/09/2015 [id number] / / [id number] Description: Graft Iliac Leg Spirlz 01w54hi - [id number] Implanted:Qty: 1 on 06/10/2014 by Ronal Gallegos MD at OR [facility] Right: Femoral Artery [place] [employer] 11/07/2016 [id number] / / [id number] Stent Polmer 29mm P3110 - [id number] Implanted:Qty: 1 on 06/10/2014 by Ronal Gallegos MD at OR [facility] N/A: Aorta JNJ : CORDIS ENDOVASCULAR 07/26/2018 P3110 / / [id number] Codman Orbit Galaxy Coil 2.5mm X 3.5cm Implanted:Qty: 1 on 09/12/2015 by Arik Shin MD at OR [facility] Left: Head LENORA & [employer] 02/26/2017 [id number] / [id number] / [id number] Description:COMPLEX XTRASOFT detachable coil deployed left internal carotid artery Codman Orbit Galaxy Coil 2.5mm X 2.5cm Implanted:Qty: 1 on 09/12/2015 by Arik Shin MD at OR [facility] Left: Head LENORA & [employer] More Alive [employer] You[employer] 01/27/2016 [id number] / [id number] / [id number] Description:COMPLEX XTRASOFT detachable coil deployed left internal carotid artery aneurysm Codman [place] 2 Stent 4mm X 30mm Implanted:Qty: 1 on 09/12/2015 by Arik Shin MD at OR [facility] Left: Head LENORA & LENORA DEPUY 03/26/2018 [id number] / [id number] / [id number] Description:Vascular reconst ruction device deployed in left internal carotid artery Codman Orbit Galaxy Coil 6mm X 20cm Implanted:Qty: 1 on 09/12/2015 by Arik Shin MD at OR [facility] Left: Head LENORA & LENORA CODMAN 09/26/2016 [id number] / [id number] / [id number] Description:COMPLEX FILL det achable coil deployed left internal carotid artery aneurysm Codman Orbit Galaxy Coil 4mm X 10cm Implanted:Qty: 1 on 09/12/2015 by Arik Shin MD at OR [facility] Left: Head LENORA & L[facility]ORA [facility] 10/27/2015 [id number] 0 / [id number] / [id number] Description:COMPLEX XTRASOFT detachable coil deployed left internal carotid artery aneurysm Codman Orbit Galaxy Coil 3.5mm X 9cm Implanted:Qty: 1 on 09/12/2015 by Arik Shin MD at OR [facility] Left: Head LENORA & LENORA CODMAN 12/28/2015 [id number] / [id number] / [id number] Description:COMPLEX XTRASOFT detachable coil deployed left internal carotid artery aneurysm Codman Orbit Galaxy Coil 3mm X 6cm Implanted:Qty: 1 on 09/12/2015 by Arik Shin MD at OR [facility] Left: Head LENORA & LENORA CODMAN 04/28/2017 [id number] / [id number] / [id number] Description:COMPLEX XTRASOFT detachable coil deployed left internal carotid artery aneurysm Lens Intraoc 21.0 - [id number] - [id number] Implanted:Qty: 1 on 11/08/2020 by Yuri Bradley MD at OR [facility] Left: Eye BAUSCH & LOMB 06/26/2025 [id number] / [id number] Lens Intraoc 20.5 - [id number] - [id number] Implanted:Qty: 1 on 11/22/2020 by Yuri Bradley MD at OR [facility] Right: Eye BAUSCH & LOMB 07/27/2025 [id number] / [id number] Clip Quick 2.8mm 230cm - [id number] Implanted:Qty: 3 on 03/29/2021 by Luciana Fernandez MD at ENDOSCOPY [facility] [employer] 08/27/2023 HX-202UR. A / / Sureclip 16mm 235cm - [id number] Implanted:Qty: 2 on 05/07/2022 by Luciana Fernandez MD at ENDOSCOPY [facility] Colon MICRO TECH ENDOSCOPY 07/06/2024 [id number] / / Power Port 8fr Sngl Lumen Plas - [id number] Implanted:Qty: 1 on 01/30/2023 by Koko Santiago MD at OR [facility] N/A: Chest CR BARD : PERIPHERAL VASCULAR 07/27/2024 [id number] / / [id number] Power Port 8fr Sngl Lumen Plas - [id number] Implanted:Qty: 1 on 01/30/2023 by Koko Santiago MD at [facility] CR BARD : PERIPHERAL VASCULAR [id number] 07/27/2024 [id number] / / [id number] documented as of this encounter Visit Diagnoses [...] and were consensually agreed upon. Care Teams International Coordinator Relationship Specialty Start Date End Date Mauro Watson DO [address] [place] [address] PCP - General Family Medicine 04/13/19 documented as of this encounter
--- OUTSIDE RECORDS SUMMARY | 2024-02-19 09:37 | External Medical Summary | Summary of Care ---
Author Name Unknown Organization [facility] Address [address] [place] [address] Phone [phone] Care Team Providers Care Mold Making Plastics Sheets Supervisor Name Role Phone Mauro Watson DO Primary Care Provider Reason for Visit * Reason Comments Chemotherapy C7/D1 - Imfinzi, [place] rosalina, Cisplatin * Episode Based Medications (Routine) - Closed Specialty Diagnoses / Procedures Referred By Edmund t Referred To Contact Diagnoses Cholangiocarcinoma (HCC) Encounter for antineoplastic chemotherapy Procedures [place] CISPLATIN 10 MG INJECTION SD FOSAPREPITANT INJECTION SD IN GEMCITABINE HCL NOS 200MG SD INJ., DURVALUMAB, 10 MG Roberta La MD [address] [place] [address] Anc Hem/Onc Nandini Contreras DEPT CLOSED - 03/12/23 [address] [place] [address] Referral ID Status Reason Start Date Expiration Date Visits Re quested Visits Authorized [id number] Closed 02/25/2023 04/28/[phone] Encounter Details Date Type Department Care Team (Latest Contact Info) Description 07/12/2023 9:00 AM EDT Hem/Onc Treatment Hematology/Oncolo gy Treatment, [place] [address] [place] [address] Diane, [...] EGFR 72 Lumbar radiculopathy 05/27/2019 Atherosclerosis of [place] co ronary artery of [place] heart with angina pectoris 05/05/2019 History of colon polyps 08/12/2018 ACEI/ARB contraindicated 09/21/2016 Carotid aneurysm, left 09/13/2015 Overview: S/p coil embolization Cerebral aneurysm, nonruptured 09/05/2015 AAA (abdominal aortic aneurysm) 06/20/2015 Overview: S/p repair Bilateral carotid artery disease 06/20/2015 Medical home patient encounter 05/19/2014 Hypertriglyceridemia 05/16/2012 CORON ATHEROSCL [place] CORON VESSEL 07/11/2010 Dyslipidemia, goal LDL below [...] Description 09/13/2023 8:30 AM EDT Laboratory Laboratory [facility] 200 [facility] [place] [phone] [place], Lab [facility] [address] [facility] [place] [address] 09/13/2023 9:00 AM EDT Office Visit Hematology/Oncology [facility] 200 [facility] [place] [address] Enriqueta Souza CRNP [address] [place] [address] 09/13/2023 9:30 AM EDT Hem/Onc Treatment Hematology/Oncology Treatment, [place] [facility] [address] Diane, Chair 5 Hem Onc [facility] [address] [facility] [place] [address] 10/30/2023 1:00 PM EDT Telemedicine Neurosurgery, [address] [address] Dashawn Haines MD [address] [place] [address] 12/17/2023 10:00 AM EDT Appointment Vascular Lab [facility], [address] [address] 12/17/2023 10:30 AM EDT Office Visit Vascular Surg [facility], [address] [address] Margarito Cabrera MD [address] [place] [address] Scheduled Procedures Name Priority Associated Diagnoses Date/Ti [...] this encounter Medical Devices Implanted Type Area Promotion Manager Device Identifier Shelf Expiration Date Model / Serial / Lot Stent Main Body Fduh-07-59-Zt - [id number] Implanted:Qty: 1 on 06/10/2014 by Ronal [place]legos MD [place] [facility] Aorta [employer] 04/07/2016 TFFB-24-8 2-ZT / / Graft Iliac Leg Spirlz 60e75po - [id number] Implanted:Qty: 1 on 06/10/2014 by Ronal Gallegos MD [place] [facility] Right: Aorta [employer] 10/09/2015 [id number] / / [id number] Description: Graft Iliac Leg Spirlz 01n37yv - [id number] Implanted:Qty: 1 on 06/10/2014 by Ronal Gallegos MD [place] [facility] Right: Femoral Artery [employer] 11/07/2016 [id number] / / [id number] Stent Polmer 29mm P3110 - [id number] Implanted:Qty: 1 on 06/10/2014 by Ronal Gallegos MD [place] [facility] N/A: Aorta JNJ : CORDIS ENDOVASCULAR 07/26/2018 P3110 / / [id number] Codman Orbit Galaxy Coil 2.5mm X 3.5cm Implanted:Qty: 1 on 09/12/2015 by Arik Shin MD at [place] [facility] Left: Head LENORA & LENORA CODMAN 02/26/2017 [id number] / [id number] / [id number] Description:COMPLEX XTRASOFT detachable coil deployed left internal carotid artery Codman Orbit Galaxy Coil 2.5mm X 2.5cm Implanted:Qty: 1 on 09/12/2015 by Arik Shin MD at [place] [facility] Left: Head LENORA & LENORA CODMAN 01/27/2016 [id number] / [id number] / [id number] Description:COMPLEX XTRASOFT detachable coil deployed left internal carotid artery aneurysm Codman [place] 2 Stent 4mm X 30mm Implanted:Qty: 1 on 09/12/2015 by Arik Shin MD at [place] [facility] Left: Head LENORA & LENORA DEPUY 03/26/2018 [id number] / [id number] / [id number] Description:Vascular reconst ruction device deployed in left internal carotid artery Codman Orbit Galaxy Coil 6mm X 20cm Implanted:Qty: 1 on 09/12/2015 by Arik Shin MD at [place] [facility] Left: Head LENORA & LENORA CODMAN 09/26/2016 [id number] / [id number] / [id number] Description:COMPLEX FILL det achable coil deployed left internal carotid artery aneurysm Codman Orbit Galaxy Coil 4mm X 10cm Implanted:Qty: 1 on 09/12/2015 by Arik Shin MD at [place] [facility] Left: Head LENORA & LENORA CODMAN 10/27/2015 [id number] 0 / [id number] / [id number] Description:COMPLEX XTRASOFT detachable coil deployed left internal carotid artery aneurysm Codman Orbit Galaxy Coil 3.5mm X 9cm Implanted:Qty: 1 on 09/12/2015 by Arik Shin MD at [place] [facility] Left: Head LENORA & LENORA CODMAN 12/28/2015 [id number] / [id number] / [id number] Description:COMPLEX XTRASOFT detachable coil deployed left internal carotid artery aneurysm Codman Orbit Galaxy Coil 3mm X 6cm Implanted:Qty: 1 on 09/12/2015 by Arik Shin MD at [place] [facility] Left: Head LENORA & LENORA CODMAN 04/28/2017 [id number] / [id number] / [id number] Description:COMPLEX XTRASOFT detachable coil deployed left internal carotid artery aneurysm Lens Intraoc 21.0 - [id number] - [id number] Implanted:Qty: 1 on 11/08/2020 by Yuri Bradley MD at OR [facility] [address] [address] Left: Eye BAUSCH & LOMB 06/26/2025 [id number] / [id number] / [id number] Lens Intraoc 20.5 - [id number] - [id number] Implanted:Qty: 1 on 11/22/2020 by Yuri Bradley MD at OR [facility] [address] Right: Eye BAUSCH & LOMB 07/27/2025 [id number] / [id number] Clip Quick 2.8mm 230cm - [id number] Implanted:Qty: 3 on 03/29/2021 by Luciana Fernandez MD at ENDOSCOPY [facility] [address] [employer] 08/27/2023 HX-202UR. A / / Sureclip 16mm 235cm - [id number] Implanted:Qty: 2 on 05/07/2022 by Luciana Fernandez MD at ENDOSCOPY [facility] Colon MICRO TECH ENDOSCOPY 07/06/2024 [id number] / / Power Port 8fr Sngl Lumen Plas - [id number] Implanted:Qty: 1 on 01/30/2023 by Koko Santiago MD at OR [facility] N/A: Chest CR BARD : PERIPHERAL VASCULAR 07/27/2024 [id number] / / [id number] Power Port 8fr Sngl Lumen Plas - [id number] Implanted:Qty: 1 on 01/30/2023 by Koko Santiago MD at OR [facility] CR BARD : PERIPHERAL VASCULAR [id number] 07/27/2024 [id number] / / [id number] documented as of this encounter Visit Diagnoses [...] were consensually agreed upon. Care Teams Mold Making Plastics Sheets Supervisor Relationship Specialty Start Date End Date Mauro Watson DO [address] [address] PCP - General Family Medicine 04/13/19 documented as of this encounter
--- OUTSIDE RECORDS SUMMARY | 2024-02-19 09:37 | External Medical Summary | Summary of Care ---
Author Name Unknown Organization [facility] Address [address] [place] [address] Phone [phone] Care Team Providers Care Machine Brusher Name Role Phone Mauro Watson DO Primary Care Provider Reason for Visit * Reason Comments Chemotherapy C7/D1 - Imfinzi, [place] rosalina, Cisplatin * Episode Based Medications (Routine) - Closed Specialty Diagnoses / Procedures Referred By Edmund t Referred To Contact Diagnoses Cholangiocarcinoma (HCC) Encounter for antineoplastic chemotherapy Procedures NC CISPLATIN 10 MG INJECTION NC FOSAPREPITANT INJECTION NC IN GEMCITABINE HCL NOS 200MG NC INJ., DURVALUMAB, 10 MG Roberta La MD [address] [place] [address] Anc Hem/Onc Nandini Contreras DEPT CLOSED - 03/12/23 [address] [place] [address] Referral ID Status Reason Start Date Expiration Date Visits Re quested Visits Authorized [id number] Closed 02/25/2023 04/28/[phone] Encounter Details Date Type Department Care Team (Latest Contact Info) Description 07/12/2023 9:00 AM EDT Hem/Onc Treatment Hematology/Oncolo gy Treatment, [place] [address] [place] [address] Diane, [...] EGFR 72 Lumbar radiculopathy 05/27/2019 Atherosclerosis of [place] co ronary artery of [place] heart with angina pectoris 05/05/2019 History of colon polyps 08/12/2018 ACEI/ARB contraindicated 09/21/2016 Carotid aneurysm, left 09/13/2015 Overview: S/p coil embolization Cerebral aneurysm, nonruptured 09/05/2015 AAA (abdominal aortic aneurysm) 06/20/2015 Overview: S/p repair Bilateral carotid artery disease 06/20/2015 Medical home patient encounter 05/19/2014 Hypertriglyceridemia 05/16/2012 CORON ATHEROSCL [place] CORON VESSEL 07/11/2010 Dyslipidemia, goal LDL below [...] Description 09/13/2023 8:30 AM EDT Laboratory Laboratory [facility] [address] [facility] [place] [id number] [place], Lab [facility] [address] [facility] [place] [address] 09/13/2023 9:00 AM EDT Office Visit Hematology/Oncology [facility] [address] [facility] [place] [address] Enriqueta Souza CRNP [address] [place] [address] 09/13/2023 9:30 AM EDT Hem/Onc Treatment [facility]ematology[facility], [place] [facility] [address] Diane, Chair 5 Hem Onc [facility] [address] [facility] [place] [address] 10/30/2023 1:00 PM EDT Telemedicine Neurosurgery, [address] [address] Dashawn Haines MD [address] [place] [address] 12/17/2023 10:00 AM EDT Appointment Vascular Lab [facility], [address] [address] 12/17/2023 10:30 AM EDT Office Visit Vascular Surg [facility], [address] [address] Margarito Cabrera MD [address] [place] [address] Scheduled Procedures Name Priority Associated Diagnoses Date/Ti [...] this encounter Medical Devices Implanted Type Area Fruit Trimmer Device Identifier Shelf Expiration Date Model / Serial / Lot Stent Main Body Ttfw-84-55-Zt - [id number] Implanted:Qty: 1 on 06/10/2014 by Ronal Gallegos MD at OR [facility] Aorta [employer] 04/07/2016 TFFB-24-8 2-ZT / / Graft Iliac Leg Spirlz 55r14gq - [id number] Implanted:Qty: 1 on 06/10/2014 by Ronal Gallegos MD at OR [facility] Right: Aorta [employer] 10/09/2015 [id number] / / [id number] Description: Graft Iliac Leg Spirlz 68x29dx - [id number] Implanted:Qty: 1 on 06/10/2014 by Ronal Gallegos MD at OR [facility] Right: Femoral Artery [employer] 11/07/2016 [id number] / / [id number] Stent Polmer 29mm P3110 - [id number] Implanted:Qty: 1 on 06/10/2014 by Ronal Gallegos MD at OR [facility] N/A: Aorta JNJ : CORDIS ENDOVASCULAR 07/26/2018 P3110 / / [id number] Codman Orbit Galaxy Coil 2.5mm X 3.5cm Implanted:Qty: 1 on 09/12/2015 by Arik Shin MD at OR [facility] Left: Head [employer]EN[employer]A [employer] LENORA CODMAN 02/26/2017 [id number] / [id number] / [id number] Description:COMPLEX XTRASOFT detachable coil deployed left internal carotid artery Codman Orbit Galaxy Coil 2.5mm X 2.5cm Implanted:Qty: 1 on 09/12/2015 by Arik Shin MD at OR [facility] Left: Head LENORA [employer] LENORA CODMAN 01/27/2016 [id number] / [id number] / [id number] Description:COMPLEX XTRASOFT detachable coil deployed left internal carotid artery aneurysm Codman [place] 2 Stent 4mm X 30mm Implanted:Qty: 1 on 09/12/2015 by Arik Shin MD at OR [facility] Left: Head LENORA [employer] LENORA DEPUY 03/26/2018 [id number] / [id number] / [id number] Description:Vascular reconst ruction device deployed in left internal carotid artery Codman Orbit Galaxy Coil 6mm X 20cm Implanted:Qty: 1 on 09/12/2015 by Arik Shin MD at OR [facility] Left: Head [employer]EN[employer]A CODMAN 09/26/2016 [id number] / [id number] / [id number] Description:COMPLEX FILL det achable coil deployed left internal carotid artery aneurysm Codman Orbit Galaxy Coil 4mm X 10cm Implanted:Qty: 1 on 09/12/2015 by Arik Shin MD at OR [facility] Left: Head [employer]EN[employer]A [employer] LEN[employer]A CODMAN 10/27/2015 [id number] / [id number] / [id number] Description:COMPLEX XTRASOFT detachable coil deployed left internal carotid artery aneurysm Codman Orbit Galaxy Coil 3.5mm X 9cm Implanted:Qty: 1 on 09/12/2015 by Arik Shin MD at OR [facility] Left: Head LEN[employer]A [employer] LENORA CODMAN 12/28/2015 [id number] / [id number] / [id number] Description:COMPLEX XTRASOFT detachable coil deployed left internal carotid artery aneurysm Codman Orbit Galaxy Coil 3mm X 6cm Implanted:Qty: 1 on 09/12/2015 by Arik Shin MD at OR [facility] Left: Head LENORA [employer] LENORA CODMAN 04/28/2017 [id number] / [id number] / [id number] Description:COMPLEX XTRASOFT detachable coil deployed left internal carotid artery aneurysm Lens Intraoc 21.0 - [id number] - [id number] Implanted:Qty: 1 on 11/08/2020 by Yuri Bradley MD at OR [facility] Left: Eye BAUSCH [employer] LOMB 06/26/2025 [id number] / [id number] / [id number] Lens Intraoc 20.5 - [id number] - [id number] Implanted:Qty: 1 on 11/22/2020 by Yuri Bradley MD at OR [facility] Right: Eye BAUSCH & LOMB 07/27/2025 [id number] / [id number] Clip Quick 2.8mm 230cm - [id number] Implanted:Qty: 3 on 03/29/2021 by Luciana Fernandez MD at ENDOSCOPY [facility] [employer] 08/27/2023 HX-202UR. A / / Sureclip 16mm 235cm - [id number] Implanted:Qty: 2 on 05/07/2022 by Luciana Fernandez MD at ENDOSCOPY [facility] Colon MICRO TECH ENDOSCOPY 07/06/2024 [id number] / / Power Port 8fr Sngl Lumen Plas - [id number] Implanted:Qty: 1 on 01/30/2023 by Koko Santiago MD at OR [facility] N/A: Chest CR BARD : PERIPHERAL VASCULAR 07/27/2024 [id number] / / [id number] Power Port 8fr Sngl Lumen Plas - [id number] Implanted:Qty: 1 on 01/30/2023 by Koko Santiago MD at OR [facility] CR BARD : PERIPHERAL VASCULAR [id number] 07/27/2024 [id number] / / [id number] documented as of this encounter Visit Diagnoses [...] were consensually agreed upon. Care Teams Machine Brusher Relationship Specialty Start Date End Date Mauro Watson DO [address] [place] [address] PCP - General Family Medicine 04/13/19 documented as of this encounter
--- OUTSIDE RECORDS SUMMARY | 2024-02-19 09:37 | External Medical Summary | Summary of Care ---
Author Name Unknown Organization [facility] Address [address] [place] [address] Phone [phone] Care Team Providers Care Adult Health Clinical Nurse Specialist Name Role Phone Mauro Watson DO Primary Care Provider Reason for Visit * Reason Comments Medication Administration B-12 Encounter Details Date Type Department Care Team (Late st Contact Info) Description 07/05/2023 2:45 PM EST Immunization/I njection Hematology/Oncology Treatment, [place] [address] [place] [address] Nurse, Med [address] [place] [address] 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)* Allergies Active Allergy Reactions Criticality Noted Date Comments Aspirin Bleeding High 11/26/2011 Significant hemorroidal bleed on aspirin,high doses Duloxetine Hcl Hypertension 01/26/2020 documented as of this encounter (statuses as of 08/31/2023) Medications Medication Sig Dispensed Refills Start Date [...] as of this encounter (statuses as of 08/31/2023) Active Problems Problem Noted Date Diagnosed Date [...] patient encounter 05/19/2014 Hypertriglyceridemia 05/16/2012 CORON ATHEROSCL [place] CORON VESSEL 07/11/2010 Dyslipidemia, goal LDL [...] as of this encounter (statuses as of 08/31/2023) Resolved Problems Problem Noted Date Diagnosed Date [...] as of this encounter (statuses as of 08/31/2023) Immunizations Name Administration Dates Next Due COVID-19 [...] as of this encounter Progress Notes * Veronica Briones LPN - 07/05/2023 3:12 PM EST 15:13: Identified patient via name and , per MD order administered Vitamin B12 injection into YASMIN. Patient tolerated injection well, denies any complaints. Patient stable upon discharge. documented in this encounter Nursing Notes * Veronica Briones LPN - 07/05/2023 3:20 PM EST Patient seen with Dr. Christine, Vitamin B12 injection ordered. Patient identified by name and , administered Vitamin B12 injection into YASMIN, Patient tolerated injection well. Patient stable upon discharge. documented in this encounter Plan of Treatment Upcoming Encounters Date Type Department Care Team (Late st Contact Info) Description 09/13/2023 8:30 AM EDT Laboratory Laboratory [facility] [place] [address] [facility] [place] [id number] [place], Lab [facility] [address] [facility] [place] [address] 09/13/2023 9:00 AM EDT Office Visit Hematology/Oncology [facility] [place] [address] [facility] [place] [phone] Enriqueta Souza CRNP [address] [facility] [address] 09/13/2023 9:30 AM EDT Hem/Onc Treatment Hematology/Oncology Treatment, [place] [address] [facility] [address] [address] [place] [id number] Diane, Chair 5 Hem Onc [facility] [address] [facility] [place] [address] 10/30/2023 1:00 PM EDT Telemedicine [address]surgery[address] [id number] Dashawn Haines MD [address] [place] [address] 12/17/2023 10:00 AM EDT Appointment Vascular Lab [facility] [address] [place] [address] 12/17/2023 10:30 AM EDT Office Visit Vascular Surg [facility] [address] [place] [address] Margarito Cabrera MD [address] [place] [address] Scheduled Procedures Name Priority Associated Diagnoses Date/Ti [...] this encounter Medical Devices Implanted Type Area Mold Yard Worker Device Identifier Shelf Expiration Date Model / Serial / Lot Stent Main Body Ousj-21-59-Zt - [id number] Implanted:Qty: 1 on 06/10/2014 by Ronal Gallegos MD at OR [facility] Aorta [employer] 04/07/2016 TFFB-24-8 2-ZT / / Graft Iliac Leg Spirlz 40p93ts - [id number] Implanted:Qty: 1 on 06/10/2014 by Ronal Gallegos MD at OR [facility] Right: Aorta [employer] 10/09/2015 [id number] / / [id number] Description: Graft Iliac Leg Spirlz 14h26ss - [id number] Implanted:Qty: 1 on 06/10/2014 by Ronal Gallegos MD at OR [facility] Right: Femoral Artery [employer] 11/07/2016 [id number] / / [id number] Stent Polmer 29mm P3110 - [id number] Implanted:Qty: 1 on 06/10/2014 by Ronal Gallegos MD at OR [facility] N/A: Aorta JNJ : CORDIS ENDOVASCULAR 07/26/2018 P3110 / / [id number] Codman Orbit Galaxy Coil 2.5mm X 3.5cm Implanted:Qty: 1 on 09/12/2015 by Arik Shin MD at OR [facility] Left: Head LENORA [employer] LENORA CODMAN 02/26/2017 [id number] / [id number] / [id number] Description:COMPLEX XTRASOFT detachable coil deployed left internal carotid artery Codman Orbit Galaxy Coil 2.5mm X 2.5cm Implanted:Qty: 1 on 09/12/2015 by Arik Shin MD at OR [facility] Left: Head [employer]A [employer]EN[employer]A CODMAN 01/27/2016 [id number] / [id number] / [id number] Description:COMPLEX XTRASOFT detachable coil deployed left internal carotid artery aneurysm Codman [place] 2 Stent 4mm X 30mm Implanted:Qty: 1 on 09/12/2015 by Arik Shin MD at OR [facility] Left: Head LENORA [employer] LENORA DEPUY 03/26/2018 [id number] / [id number] / [id number] Description:Vascular reconst ruction device deployed in left internal carotid artery Codman Orbit Galaxy Coil 6mm X 20cm Implanted:Qty: 1 on 09/12/2015 by Arik Shin MD at OR [facility] Left: Head [employer]A [employer]EN[employer]A CODMAN 09/26/2016 [id number] / [id number] / [id number] Description:COMPLEX FILL det achable coil deployed left internal carotid artery aneurysm Codman Orbit Galaxy Coil 4mm X 10cm Implanted:Qty: 1 on 09/12/2015 by Arik Shin MD at OR [facility] Left: Head LENORA & LENORA [facility] 10/27/2015 [id number] / [id number] / [id number] Description:COMPLEX XTRASOFT detachable coil deployed left internal carotid artery aneurysm Codman Orbit Galaxy Coil 3.5mm X 9cm Implanted:Qty: 1 on 09/12/2015 by Arik Shin MD at OR [facility] Left: Head LENORA & LENORA [facility] 12/28/2015 [id number] / [id number] / [id number] Description:COMPLEX XTRASOFT detachable coil deployed left internal carotid artery aneurysm Codman Orbit Galaxy Coil 3mm X 6cm Implanted:Qty: 1 on 09/12/2015 by Arik Shin MD at OR [facility] Left: Head LENORA [employer] LENORA CODMAN 04/28/2017 [id number] / [id number] / [id number] Description:COMPLEX XTRASOFT detachable coil deployed left internal carotid artery aneurysm Lens Intraoc 21.0 - [id number] - [id number] Implanted:Qty: 1 on 11/08/2020 by Yuri Bradley MD at OR [facility] Left: Eye BAUSCH & LOMB 06/26/2025 [id number] / [id number] Lens Intraoc 20.5 - [id number] - [id number] Implanted:Qty: 1 on 11/22/2020 by Yuri Bradley MD at OR [facility] Right: Eye BAUSCH & LOMB 07/27/2025 [id number] / [id number] Clip Quick 2.8mm 230cm - [id number] Implanted:Qty: 3 on 03/29/2021 by Luciana Fernandez MD at ENDOSCOPY [facility] [employer] 08/27/2023 HX-202UR. A / / Sureclip 16mm 235cm - [id number] Implanted:Qty: 2 on 05/07/2022 by Luciana Fernandez MD at ENDOSCOPY [facility] Colon MICRO TECH ENDOSCOPY 07/06/2024 [id number] / / Power Port 8fr Sngl Lumen Plas - [id number] Implanted:Qty: 1 on 01/30/2023 by Koko Santiago MD at OR [facility] N/A: Chest CR BARD : PERIPHERAL VASCULAR 07/27/2024 [id number] / / [id number] Power Port 8fr Sngl Lumen Plas - [id number] Implanted:Qty: 1 on 01/30/2023 by Koko Santiago MD at OR [facility] CR BARD : PERIPHERAL VASCULAR [id number] 07/27/2024 [id number] / / [id number] documented as of this encounter Visit Diagnoses Diagnosis 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)- Primary documented in this encounter Administered Medications Inactive Administered Medications - up to 3 most recent administrations Medication Order MAR Action Action Date Dose Rate Site vitamin b-12 (Cyanocobalamin) inj 1,000 mcg 1,000 mcg, Intramuscular, ONCE, On Sat07/05/23 at 1600, For 1 dose Given 07/05/2023 3:13 PM EST 1,000 mcg Arm Left Upper documented in this encounter Advance [...] and were consensually agreed upon. Care Teams Adult Health Clinical Nurse Specialist Relationship Specialty Start Date End Date Mauro Watson DO [address] [place] [address] PCP - General Family Medicine 04/13/19 documented as of this encounter
--- OUTSIDE RECORDS SUMMARY | 2024-02-19 09:37 | External Medical Summary | Summary of Care ---
Author Name Unknown Organization [facility] Address [address] [place] [address] Phone [phone] Care Team Providers Care Publications Designer Name Role Phone Mauro Watson DO Primary Care Provider Reason for Visit * Reason Comments Chemotherapy Alimta/Carboplatin * Episode Based Medications (Routine) - Authorized Specialty Diagnoses / Procedures Referred By Edmund t Referred To Contact Diagnoses Encounter for antineoplastic chemotherapy 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) Malignant neoplasm of left lung, unspecified part of lung (HCC) Procedures AK INJ. PEMETREXED NOS 10MG AK CARBOPLATIN INJECTION AK FOSAPREPITANT INJECTION Lasha Christine MD [address] [facility] [place] [address] Anc Hem/Onc [address] [address] Referral ID Status Reason Start Date Expiration Date V isits Requested Visits Authorized [id number] Authorized 08/22/2023 04/28/2099 999 99 Encounter Details Date Type Department Care Team (Latest Contact Info) Description 08/23/2023 9:45 AM EDT Hem/Onc Treatment Hematology/Oncolog y Treatment, [address] [phone] Diane Chair 2 Hem Onc [address] [place] [address] Encounter for antineoplastic chemotherapy*; 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); Malignant neoplasm of left lung, unspecified part of lung (HCC) Allergies Active Allergy Reactions Criticality Noted Date Comments Aspirin Bleeding High 11/26/2011 Significant hemorroidal bleed on aspirin,high doses Duloxetine Hcl Hypertension 01/26/2020 documented as of this encounter (statuses as of 08/23/2023) Medications Medication Sig Dispensed Refills Start Date [...] as of this encounter (statuses as of 08/23/2023) Active Problems Problem Noted Date Diagnosed Date Malignant neoplasm of left lung 08/23/2023 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 01/21/2023 Encounter for antineoplastic chemotherapy 2022 Medical marijuana use 08/26/2021 CKD (chronic kidney disease), stage II 2 Overview: EGFR 72 Lumbar radiculopathy 05/27/2019 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 05/05/2019 History of colon polyps 08/12/2018 ACEI/ARB contraindicated 09/21/2016 Carotid aneurysm, left 09/13/2015 Overview: S/p coil embolization Cerebral aneurysm, nonruptured 09/05/2015 AAA (abdominal aortic aneurysm) 06/20/2015 Overview: S/p repair Bilateral carotid artery disease 06/20/2015 Medical home patient encounter 05/19/2014 Hypertriglyceridemia 05/16/2012 CORON ATHEROSCL NISQUALLY CORON VESSEL 07/11/2010 Dyslipidemia, goal LDL below [...] as of this encounter (statuses as of 08/23/2023) Resolved Problems Problem Noted Date Diagnosed Date [...] as of this encounter (statuses as of 08/23/2023) Immunizations Name Administration Dates Next Due COVID-19 [...] and denied any further needs. * Lauryn Watsno LPN - 08/23/2023 12:23 PM EDT Vitamin [...] Description 09/13/2023 8:30 AM EDT Laboratory Laboratory [facility] [address] [place] [phone] Diane, Lab [address] [place] [address] 09/13/2023 9:00 AM EDT Office Visit Hematology/Oncology [facility] [address] [facility] [place] [phone] Enriqueta Souza CRNP [address] [place] [address] 09/13/2023 9:30 AM EDT Hem/Onc Treatment [facility] [place] [facility] [phone] Diane, Chair 5 Hem Onc [address] [place] [address] 10/30/2023 1:00 PM EDT Telemedicine Neurosurgery, [place] [address] [place] [address] Dashawn Haines MD [address] [place] [address] 12/17/2023 10:00 AM EDT Appointment Vascular Lab [facility], [address] [address] 12/17/2023 10:30 AM EDT Office Visit Vascular Surg [facility], [place] [address], [place] [id number] Margarito Cabrera MD [address] [place] [address] Scheduled Procedures Name Priority Associated Diagnoses Date/Ti me COLONOSCOPY FLEXIBLE PROXIMAL DIAGNOSTIC Recall History of colon polyps Health Maintenance Due Date Last Done Comments COVID-19 Vaccine (2022- season) 2022 02/06/2022, 05/11/2021, 12/13/2020, Additional history exists Depression Screening 05/17/2023 05/17/2022 COLONOSCOPY-ANNUAL AGES 18-100 11/03/2023 11/02/2022, 11/02/2022, 05/07/2022, Additional history exists GFR 08/21/2024 08/22/2023, 07/28, 07/29/2023, Additional history exists Albumin/Creatinine Ratio 05/17/2025 05/17/2022, 07/30 DTaP,Tdap,and Td Vaccines (4 - Td or Tdap) 01/12/2030 01/13/2020, 06/08/2019, 09/30/2008 Pneumococcal Vaccine: 65+ Years Completed 02/17/2018, 02/04/2017, 12/21/2011 Zoster Vaccines Completed 02/17/2019, 08/29/2017 COLONOSCOPY-EVERY 5 YRS AGES 18-100 Discontinued 11/02/2022, 11/02/2022, 05/07/2022, Additional history exists Influenza Vaccine (FLU shot) Completed 01/02/2023, 02/21/2022, 02/21/2022, Additional history exists Lung Cancer Screening Completed 01/15/2023 , 12/06/2022, 12/14/2021, Additional history exists GARDASIL-HPV IMMUNIZATION SERIES Aged Out No longer eligible based on patient's age to complete this topic Hepatitis B Aged Out No longer eligi ble based on patient's age to complete this topic MENINGOCOCCAL (MENACTRA/MENVEO) Aged Out No longer eligible based on patient's age to complete this topic documented as of this encounter Medical Devices Implanted Type Area Manufacturing Sr Engineer Device Identifier Shelf Expiration Date Model / Serial / Lot Stent Main Body Djoo-25-65-Zt - [id number] Implanted:Qty: 1 on 06/10/2014 by Ronal Gallegos MD at OR [facility] [place] Aorta [employer] 04/07/2016 TFFB-24-8 2-ZT / / Graft Iliac Leg Spirlz 03e56df - [id number] Implanted:Qty: 1 on 06/10/2014 by Ronal Gallegos MD at OR [facility] [place] Right: Aorta [employer] 10/09/2015 [id number] / / [id number] Description: Graft Iliac Leg Spirlz 53m83cx - [id number] Implanted:Qty: 1 on 06/10/2014 by Ronal Gallegos MD at OR [facility] [place] Right: Femoral Artery [employer] 11/07/2016 [id number] / / [id number] Stent Polmer 29mm P3110 - [id number] Implanted:Qty: 1 on 06/10/2014 by Ronal Gallegos MD at OR [facility] [place] N/A: Aorta JNJ : CORDIS ENDOVASCULAR 07/26/2018 P3110 / / [id number] Codman Orbit Galaxy Coil 2.5mm X 3.5cm Implanted:Qty: 1 on 09/12/2015 by Arik Shin MD at OR [facility] [place] Left: Head [employer]A [employer]EN[employer] CODMAN 02/26/2017 [id number] / [id number] / [id number] Description:COMPLEX XTRASOFT detachable coil deployed left internal carotid artery Codman Orbit Galaxy Coil 2.5mm X 2.5cm Implanted:Qty: 1 on 09/12/2015 by Arik Shin MD at OR [facility] [place] Left: Head [employer]MAN 01/27/2016 [id number] / [id number] / [id number] Description:COMPLEX XTRASOFT detachable coil deployed left internal carotid artery aneurysm Codman [place] 2 Stent 4mm X 30mm Implanted:Qty: 1 on 09/12/2015 by Arik Shin MD at OR [facility] [place] Left: Head LENORA [employer] LENORA DEPUY 03/26/2018 [id number] / [id number] / [id number] Description:Vascular reconst ruction device deployed in left internal carotid artery Codman Orbit Galaxy Coil 6mm X 20cm Implanted:Qty: 1 on 09/12/2015 by Arik Shin MD at OR [facility] [place] Left: Head [employer]A [employer]MAN 09/26/2016 [id number] / [id number] / [id number] Description:COMPLEX FILL det achable coil deployed left internal carotid artery aneurysm Codman Orbit Galaxy Coil 4mm X 10cm Implanted:Qty: 1 on 09/12/2015 by Arik Shin MD at OR [facility] [place] Left: Head [employer]MAN 10/27/2015 [id number] / [id number] / [id number] Description:COMPLEX XTRASOFT detachable coil deployed left internal carotid artery aneurysm Codman Orbit Galaxy Coil 3.5mm X 9cm Implanted:Qty: 1 on 09/12/2015 by Arik Shin MD at OR [facility] [place] Left: Head [employer]A [employer] L[employer] CODMAN 12/28/2015 [id number] / [id number] / [id number] Description:COMPLEX XTRASOFT detachable coil deployed left internal carotid artery aneurysm Codman Orbit Galaxy Coil 3mm X 6cm Implanted:Qty: 1 on 09/12/2015 by Arik Shin MD at OR [facility] [place] Left: Head LENORA [employer] LEN[employer]A CODMAN 04/28/2017 [id number] / [id number] / [id number] Description:COMPLEX XTRASOFT detachable coil deployed left internal carotid artery aneurysm Lens Intraoc 21.0 - [id number] - [id number] Implanted:Qty: 1 on 11/08/2020 by Yuri Bradley MD at OR [facility] Left: Eye BAUSCH & LOMB 06/26/2025 [id number] / [id number] / [id number] Lens Intraoc 20.5 - [id number] - [id number] Implanted:Qty: 1 on 11/22/2020 by Yuri Bradley MD at OR [facility] Right: Eye BAUSCH & LOMB 07/27/2025 [id number] / [id number] / [id number] Clip Quick 2.8mm 230cm - [id number] Implanted:Qty: 3 on 03/29/2021 by Luciana Fernandez MD at ENDOSCOPY [facility] [employer] 08/27/2023 HX-202UR. A / / Sureclip 16mm 235cm - [id number] Implanted:Qty: 2 on 05/07/2022 by Luciana Fernandez MD at ENDOSCOPY [facility] Colon MICRO TECH ENDOSCOPY 07/06/2024 [id number] / / Power Port 8fr Sngl Lumen Plas - [id number] Implanted:Qty: 1 on 01/30/2023 by Koko Santiago MD at OR [facility] N/A: Chest CR BARD : PERIPHERAL VASCULAR 07/27/2024 [id number] / / [id number] Power Port 8fr Sngl Lumen Plas - [id number] Implanted:Qty: 1 on 01/30/2023 by Koko Santiago MD at OR [facility] CR BARD : PERIPHERAL VASCULAR [id number] 07/27/2024 [id number] / / [id number] documented as of this encounter Visit Diagnoses [...] ONCE PRN Other, Hypersensitivity Reaction, Starting on Sat08/23/23 at 1010, Until 08/24/23 at 1009, For 24 hours EPINEPHrine 1 MG/ML inj 0.3 mg 0.3 mg, Intramuscular, ONCE PRN Other, Hypersensitivity Reaction or Anaphylaxis, Starting on Sat08/23/23 at 1010, Until 08/24/23 at 1009, For 24 hours hEParin 100 UNIT/ML Lock Flush inj 500 Units 500 Units (5 mL), IV Lock, PRN Other, IV Flush, Starting on Sat08/23/23 at 1010, Until 08/24/23 at 1009, For 24 hours, Do not flush if lock, PICC, or central line not in place; IV infusing or unable to flush. Given 08/23/2023 12:45 PM EDT 500 Units Hydrocortisone Sod Suc (PF) (Solu-Cortef) inj 100 mg 100 mg, IV Push, ONCE PRN Other, Hypersensitivity Reaction, Starting on Sat08/23/23 at 1010, Until 08/24/23 at 1009, For 24 hours LORAzepam (Ativan) tab 0.5 mg 0.5 mg, Oral, ONCE PRN Anxiety, Nausea, Starting on Sat08/23/23 at 1115, Until Discontinued NSS infusion Intravenous, at 50 mL/hr, PRN, Starting on Sat08/23/23 at 1115, Until Discontinued, Maintenance line Start Infusion 08/23/2023 10:16 AM EDT 50 mL/hr oxygen GAS Inhalation, OXYGEN, First dose on Sat08/23/23 at 1045, Until Discontinued, Device/Managed by: Low [...] Flush, Starting on Sat08/23/23 at 1010, Until 08/24/23 at 1009, For 24 hours, Do not flush if lock, PICC, or central line not in place; IV infusing or unable to flush. Given 08/23/2023 12:44 PM EDT 10 mL Inactive Administered Medications [...] 10:40 AM EDT 150 mg 578.4 mL/hr PEMEtrexed Disodium (Alimta) 900 mg in NSS 100 mL infusion 900 mg (rounded from 925 mg = 500 mg/m2 1.85 m2 Treatment Plan BSA from Recorded weight), IV Piggyback, ONCE, 1 dose, On Sat08/23/23 at 1145, Administer over 10 Minutes Start Infusion 08/23/2023 11:18 AM EDT 900 mg 660 mL/hr vitamin b-12 (Cyanocobalamin) inj 1,000 mcg [...] and were consensually agreed upon. Care Teams Publications Designer Relationship Specialty Start Date End Date Mauro Watson DO [address] [place] [address] PCP - General Family Medicine 04/13/19 documented as of this encounter
--- OUTSIDE RECORDS SUMMARY | 2024-02-19 09:37 | External Medical Summary | Summary of Care ---
Author Name Unknown Organization [facility] Address [address] [place] [address] Phone [phone] Care Team Providers Care Box Toe Cutter Name Role Phone Mauro Watson DO Primary Care Provider Reason for Visit * Reason Comments Chemotherapy C7/D1 - Imfinzi, [place] rosalina, Cisplatin * Episode Based Medications (Routine) - Closed Specialty Diagnoses / Procedures Referred By Edmund t Referred To Contact Diagnoses Cholangiocarcinoma (HCC) Encounter for antineoplastic chemotherapy Procedures [place] CISPLATIN 10 MG INJECTION [place] FOSAPREPITANT INJECTION [place] IN GEMCITABINE HCL NOS 200MG [place] INJ., DURVALUMAB, 10 MG Roberta La MD [address] [place] [address] Anc Hem/Onc Nandini Contreras DEPT CLOSED - 03/12/23 [address] [place] [address] Referral ID Status Reason Start Date Expiration Date Visits Re quested Visits Authorized [id number] Closed 02/25/2023 04/28/[phone] Encounter Details Date Type Department Care Team (Latest Contact Info) Description 07/12/2023 9:00 AM EDT Hem/Onc Treatment Hematology/Oncolo gy Treatment, [place] [address] [place] [address] Diane, [...] EGFR 72 Lumbar radiculopathy 05/27/2019 Atherosclerosis 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 [address] Diane, Chair 5 Hem Onc [facility] [address] [facility] [place] [address] 10/30/2023 1:00 PM EDT Telemedicine Neurosurgery, [address] [address] Dashawn Haines MD [address] [place] [address] 12/17/2023 10:00 AM EDT Appointment Vascular Lab [facility], [address] [address] 12/17/2023 10:30 AM EDT Office Visit Vascular Surg [facility], [address] [address] Margarito Cabrera MD [address] [place] [address] Scheduled Procedures Name Priority Associated Diagnoses Date/Ti [...] this encounter Medical Devices Implanted Type Area Outside Sales Device Identifier Shelf Expiration Date Model / Serial / Lot Stent Main Body Rkmr-09-61-Zt - [id number] Implanted:Qty: 1 on 06/10/2014 by Ronal Gallegos MD [place] [facility] [place] Aorta [employer] 04/07/2016 TFFB-24-8 2-ZT / / Graft Iliac Leg Spirlz 23m31pz - [id number] Implanted:Qty: 1 on 06/10/2014 by Ronal Gallegos MD at [place] [facility] [place] Right: Aorta [employer] 10/09/2015 [id number] / / [id number] Description: Graft Iliac Leg Spirlz 75k18my - [id number] Implanted:Qty: 1 on 06/10/2014 by Ronal Gallegos MD at [place] [facility] [place] Right: Femoral Artery [employer] 11/07/2016 [id number] / / [id number] Stent Polmer 29mm P3110 - [id number] Implanted:Qty: 1 on 06/10/2014 by Ronal Gallegos MD at [place] [facility] [place] N/A: Aorta JNJ : CORDIS ENDOVASCULAR 07/26/2018 P3110 / / [id number] Codman Orbit Galaxy Coil 2.5mm X 3.5cm Implanted:Qty: 1 on 09/12/2015 by Arik Shin MD at [place] [facility] [place] Left: Head [employer]A [employer]MAN 02/26/2017 [id number] / [id number] / [id number] Description:COMPLEX XTRASOFT detachable coil deployed left internal carotid artery Codman Orbit Galaxy Coil 2.5mm X 2.5cm Implanted:Qty: 1 on 09/12/2015 by Arik Shin MD at [place] [facility] [place] Left: Head [employer] 01/27/2016 [id number] / [id number] / [id number] Description:COMPLEX XTRASOFT detachable coil deployed left internal carotid artery aneurysm Codman [place] 2 Stent 4mm X 30mm Implanted:Qty: 1 on 09/12/2015 by Arik Shin MD at [place] [facility] [place] Left: Head LENORA [employer] LENORA DEPUY 03/26/2018 [id number] / [id number] / [id number] Description:Vascular reconst ruction device deployed in left internal carotid artery Codman Orbit Galaxy Coil 6mm X 20cm Implanted:Qty: 1 on 09/12/2015 by Arik Shin MD at [place] [facility] [place] Left: Head [employer] 09/26/2016 [id number] / [id number] / [id number] Description:COMPLEX FILL det achable coil deployed left internal carotid artery aneurysm Codman Orbit Galaxy Coil 4mm X 10cm Implanted:Qty: 1 on 09/12/2015 by Arik Shin MD at [place] [facility] [place] Left: Head [employer] 10/27/2015 [id number] / [id number] / [id number] Description:COMPLEX XTRASOFT detachable coil deployed left internal carotid artery aneurysm Codman Orbit Galaxy Coil 3.5mm X 9cm Implanted:Qty: 1 on 09/12/2015 by Arik Shin MD at [place] [facility] [place] Left: Head [employer] 12/28/2015 [id number] / [id number] / [id number] Description:COMPLEX XTRASOFT detachable coil deployed left internal carotid artery aneurysm Codman Orbit Galaxy Coil 3mm X 6cm Implanted:Qty: 1 on 09/12/2015 by Arik Shin MD at [place] [facility] [place] Left: Head [employer]A [employer] L[employer]A CODMAN 04/28/2017 [id number] / [id number] / [id number] Description:COMPLEX XTRASOFT detachable coil deployed left internal carotid artery aneurysm Lens Intraoc 21.0 - [id number] - [id number] Implanted:Qty: 1 on 11/08/2020 by Yuri Bradley MD at OR [facility] Left: Eye BAUSCH & LOMB 06/26/2025 [id number] / [id number] / [id number] Lens Intraoc 20.5 - [id number] - [id number] Implanted:Qty: 1 on 11/22/2020 by Yuri Bradley MD at OR [facility] Right: Eye BAUSCH & LOMB 07/27/2025 [id number] / [id number] Clip Quick 2.8mm 230cm - [id number] Implanted:Qty: 3 on 03/29/2021 by Luciana Fernandez MD at ENDOSCOPY [facility] [employer] 08/27/2023 HX-202UR. A / / Sureclip 16mm 235cm - [id number] Implanted:Qty: 2 on 05/07/2022 by Luciana Fernandez MD at ENDOSCOPY [facility] Colon MICRO TECH ENDOSCOPY 07/06/2024 [id number] / / Power Port 8fr Sngl Lumen Plas - [id number] Implanted:Qty: 1 on 01/30/2023 by Koko Santiago MD at OR [facility] N/A: Chest CR BARD : PERIPHERAL VASCULAR 07/27/2024 [id number] / / [id number] Power Port 8fr Sngl Lumen Plas - [id number] Implanted:Qty: 1 on 01/30/2023 by Koko Santiago MD at OR [facility] CR BARD : PERIPHERAL VASCULAR [id number] 07/27/2024 [id number] / / [id number] documented as of this encounter Visit Diagnoses [...] were consensually agreed upon. Care Teams Box Toe Cutter Relationship Specialty Start Date End Date Mauro Watson DO [address] [place] [address] PCP - General Family Medicine 04/13/19 documented as of this encounter
--- OUTSIDE RECORDS SUMMARY | 2024-02-19 09:38 | External Medical Summary | Summary of Care ---
Author Name Unknown Organization [facility] Address [address] [place] [address] Phone [phone] Care Team Providers Care Production Artist Name Role Phone Watson Mauro Leonardogordy Primary Care Provider Encounter Details Date Type Department Care Team (Late st Contact Info) Description 08/23/2023 Telephone Hematology/Oncology [facility] [address] [place] [address] Lasha Christine MD [address] [place] [address] Allergies Active Allergy Reactions Criticality Noted Date [...] EGFR 72 Lumbar radiculopathy 05/27/2019 Atherosclerosis of [place] co ronary artery of nome heart with angina pectoris 05/05/2019 History of [...] Date Resolved Date Atypical chest pain 01/20/2018 04/30/20 22 Lower GI bleeding 12/31/2015 02/14/2017 Palpitations [...] Telephone Encounter - Rodriguez Mann RN - 08/23/2023 8:[address] Christine- ok to give B12 injection today if patients last B12 was on 07/04. documented in this encounter Plan of Treatment Upcoming Encounters Date Type Department Care Team (Late st Contact Info) Description 08/23/2023 9:45 AM EDT Hem/Onc Treatment Hematology/[address]cology [address] [phone] Diane, Chair 2 Hem Onc [address] [place] [address] 09/03/2023 8:00 AM EDT Laboratory Laboratory [facility] [place] 200 [facility] [place] [address] Diane, Lab [facility] 200 [facility] [place] [address] 09/03/2023 9:00 AM EDT [facility] [address] Diane, Chair 6 Hem Onc [address] [place] [address] 09/03/2023 9:45 AM EDT Office Visit Hematology/Oncology [facility] [place] 200 [facility] [place] [phone] Lasha Christine MD 200 [facility] [place] [address] 10/30/2023 1:00 PM EDT Telemedicine Neurosurgery, [place] [address] Dashawn Haines MD [facility] [place] [address] 12/17/2023 10:00 AM EDT [place] [address] 12/17/2023 10:30 AM EDT Office Visit Vascular Surg [address] [address] Margarito Cabrera MD [facility] [place] [address] Scheduled Procedures Name Priority Associated Diagnoses Date/Ti [...] this encounter Medical Devices Implanted Type Area Computational Chemist Device Identifier Shelf Expiration Date Model / Serial / Lot Stent Main Body Agvv-69-27-Zt - [id number] Implanted:Qty: 1 on 06/10/2014 by Ronal Gallegos MD at OR [facility] Aorta [employer]OOK GROUP 04/07/2016 TFFB-24-8 2-ZT / / Graft Iliac Leg Spirlz 25p67tf - [id number] Implanted:Qty: 1 on 06/10/2014 by Ronal Gallegos MD at OR [facility] Right: Aorta [employer] 10/09/2015 [id number] / / [id number] Description: Graft Iliac Leg Spirlz 59t51aj - [id number] Implanted:Qty: 1 on 06/10/2014 by Ronal Gallegos MD at OR [facility] Right: Femoral Artery [employer] 11/07/2016 [id number] / / [id number] Stent Polmer 29mm P3110 - [id number] Implanted:Qty: 1 on 06/10/2014 by Ronal Gallegos MD at OR [facility] N/A: Aorta JNJ : CORDIS ENDOVASCULAR 07/26/2018 P3110 / / [id number] Codman Orbit Galaxy Coil 2.5mm X 3.5cm Implanted:Qty: 1 on 09/12/2015 by Arik Shin MD at OR [facility] Left: Head LENORA & LENORA CODMAN 02/26/2017 [id number] / [id number] / [id number] Description:COMPLEX XTRASOFT detachable coil deployed left internal carotid artery Codman Orbit Galaxy Coil 2.5mm X 2.5cm Implanted:Qty: 1 on 09/12/2015 by Arik Shin MD at OR [facility] Left: Head LENORA & LENORA CODMAN 01/27/2016 [id number] / [id number] / [id number] Description:COMPLEX XTRASOFT detachable coil deployed left internal carotid artery aneurysm Codman Dorena 2 Stent 4mm X 30mm Implanted:Qty: 1 on 09/12/2015 by Arik Shin MD at OR [facility] Left: Head LENORA & LENORA DEPUY 03/26/2018 [id number] / [id number] / [id number] Description:Vascular reconst ruction device deployed in left internal carotid artery Codman Orbit Galaxy Coil 6mm X 20cm Implanted:Qty: 1 on 09/12/2015 by Arik Shin MD at OR [facility] Left: Head LENORA & LENORA CODMAN 09/26/2016 [id number] / [id number] / [id number] Description:COMPLEX FILL det achable coil deployed left internal carotid artery aneurysm Codman Orbit Galaxy Coil 4mm X 10cm Implanted:Qty: 1 on 09/12/2015 by Arik Shin MD at OR [facility] Left: Head LENORA & LENORA [facility] 10/27/2015 [id number] 0 / [id number] / [id number] Description:COMPLEX XTRASOFT detachable coil deployed left internal carotid artery aneurysm Codman Orbit Galaxy Coil 3.5mm X 9cm Implanted:Qty: 1 on 09/12/2015 by Arik Shin MD at OR [facility] Left: Head LENORA & LENORA CODMAN 12/28/2015 [id number] / [id number] / [id number] Description:COMPLEX XTRASOFT detachable coil deployed left internal carotid artery aneurysm Codman Orbit Galaxy Coil 3mm X 6cm Implanted:Qty: 1 on 09/12/2015 by Arik Shin MD at OR [facility] Left: Head LENORA & LENORA CODMAN 04/28/2017 [id number] / [id number] / [id number] Description:COMPLEX XTRASOFT detachable coil deployed left internal carotid artery aneurysm Lens Intraoc 21.0 - [id number] - [id number] Implanted:Qty: 1 on 11/08/2020 by Yuri Bradlye MD at OR [facility] Left: Eye BAUSCH & LOMB 06/26/2025 [id number] / [id number] Lens Intraoc 20.5 - [id number] - [id number] Implanted:Qty: 1 on 11/22/2020 by Yuri Bradley MD at OR [facility] Right: Eye BAUSCH & LOMB 07/27/2025 [id number] / [id number] Clip Quick 2.8mm 230cm - [id number] Implanted:Qty: 3 on 03/29/2021 by Luciana Fernandez MD at ENDOSCOPY [facility] [employer] 08/27/2023 HX-202UR. A / / Sureclip 16mm 235cm - [id number] Implanted:Qty: 2 on 05/07/2022 by Luciana Fernandez MD at ENDOSCOPY [facility] Colon MICRO TECH ENDOSCOPY 07/06/2024 [id number] / / Power Port 8fr Sngl Lumen Plas - [id number] Implanted:Qty: 1 on 01/30/2023 by Koko Santiago MD at OR [facility] N/A: Chest CR BARD : PERIPHERAL VASCULAR 07/27/2024 [id number] / / [id number] Power Port 8fr Sngl Lumen Plas - [id number] Implanted:Qty: 1 on 01/30/2023 by Koko Santiago MD at OR [facility] CR BARD : PERIPHERAL VASCULAR [id number] 07/27/2024 [id number] / / [id number] documented as of this encounter Advance Directives [...] and were consensually agreed upon. Care Teams Production Artist Relationship Specialty Start Date End Date Mauro Watson DO [address] [place] [address] PCP - General Family Medicine 04/13/19 documented as of this encounter
--- OUTSIDE RECORDS SUMMARY | 2024-02-19 09:38 | External Medical Summary | Summary of Care ---
Author Name Unknown Organization [facility] Address [address] [place] [address] Phone [phone] Care Team Providers Care Managed Care Provider Name Role Phone Mauro Watson DO Primary [...] [place] FOSAPREPITANT INJECTION Lasha Christine MD 200 [facility] [place] [address] Anc Hem/Onc [address] [address] Referral ID Status Reason Start Date Expiration Date V isits Requested Visits Authorized [id number] Authorized 08/22/2023 04/28/2099 999 99 Encounter Details Date Type Department Care Team (Latest Contact Info) Description 08/23/2023 9:45 AM EDT Hem/Onc Treatment Hematology/Oncolog y Treatment, [address] [phone] Diane Chair 2 Hem Onc [address] [place] [address] Encounter for antineoplastic chemotherapy*; Metastatic carcinoma involving [...] patient encounter 05/19/2014 Hypertriglyceridemia 05/16/2012 CORON ATHEROSCL [place] CORON VESSEL 07/11/2010 Dyslipidemia, goal LDL below [...] Description 09/13/2023 8:30 AM EDT Laboratory Laboratory [facility] 200 [facility] [place] [phone] Diane, Lab [address] [place] [address] 09/13/2023 9:00 AM EDT Office Visit Hematology/Oncology [facility] 200 [facility] [place] [phone] Enriqueta Souza CRNP [address] [place] [address] 09/13/2023 9:30 AM EDT Hem/Onc Treatment Hematology/Oncology [facility], [place] [facility] [phone] Diane, Chair 5 Hem Onc [address] [place] [address] 10/30/2023 1:00 PM EDT Telemedicine Neurosurgery, [place] [address] [place] [address] Dashawn Haines MD [address] [place] [address] 12/17/2023 10:00 AM EDT Appointment Vascular Lab [facility], [address] [address] 12/17/2023 10:30 AM EDT Office Visit Vascular Surg [facility], [place] [address] [place], [place] [phone] Margarito Cabrera MD [address] [place] [address] Scheduled Procedures Name Priority Associated Diagnoses Date/Ti [...] this encounter Medical Devices Implanted Type Area As400 Administrator Device Identifier Shelf Expiration Date Model / Serial / Lot Stent Main Body Skhg-33-92-Zt - [id number] Implanted:Qty: 1 on 06/10/2014 by Ronal Gallegos MD at [place] [facility] Aorta [employer]OOK GROUP 04/07/2016 TFFB-24-8 2-ZT / / Graft Iliac Leg Spirlz 31v25fb - [id number] Implanted:Qty: 1 on 06/10/2014 by Ronal Gallegos MD at [place] [facility] Right: Aorta [employer]OOK GROUP 10/09/2015 [id number] / / [id number] Description: Graft Iliac Leg Spirlz 83j91rv - [id number] Implanted:Qty: 1 on 06/10/2014 by Ronal Gallegos MD at [place] [facility] Right: Femoral Artery [employer] 11/07/2016 P65399 / / [id number] Stent Polmer 29mm P3110 - [id number] Implanted:Qty: 1 on 06/10/2014 by Ronal Gallegos MD at [place] [facility] N/A: Aorta JNJ : CORDIS ENDOVASCULAR 07/26/2018 P3110 / / [id number] Codman Orbit Galaxy Coil 2.5mm X 3.5cm Implanted:Qty: 1 on 09/12/2015 by Arik Shin MD at [place] [facility] Left: Head LENORA & LENORA CODMAN 02/26/2017 [id number] / [id number] / [id number] Description:COMPLEX XTRASOFT detachable coil deployed left internal carotid artery Codman Orbit Galaxy Coil 2.5mm X 2.5cm Implanted:Qty: 1 on 09/12/2015 by Arik Shin MD at [place] [facility] Left: Head LENORA & LENORA CODMAN 01/27/2016 [id number] / [id number] / [id number] Description:COMPLEX XTRASOFT detachable coil deployed left internal carotid artery aneurysm Codman Teller 2 Stent 4mm X 30mm Implanted:Qty: 1 on 09/12/2015 by Arik Shin MD at OR [facility] Left: Head LENORA & LENORA DEPUY 03/26/2018 [id number] / [id number] / [id number] Description:Vascular reconst ruction device deployed in left internal carotid artery Codman Orbit Galaxy Coil 6mm X 20cm Implanted:Qty: 1 on 09/12/2015 by Arik Shin MD at OR [facility] Left: Head LENORA & LENORA CODMAN 09/26/2016 [id number] / [id number] / [id number] Description:COMPLEX FILL det achable coil deployed left internal carotid artery aneurysm Codman Orbit Galaxy Coil 4mm X 10cm Implanted:Qty: 1 on 09/12/2015 by Arik Shin MD at [place] [facility] Left: Head LENORA & LENORA CODMAN 10/27/2015 031FYE664 0 / [id number] / [id number] Description:COMPLEX XTRASOFT detachable coil deployed left internal carotid artery aneurysm Codman Orbit Galaxy Coil 3.5mm X 9cm Implanted:Qty: 1 on 09/12/2015 by Arik Shin MD at [place] [facility] Left: Head LENORA & LENORA CODMAN 12/28/2015 [id number] / [id number] / [id number] Description:COMPLEX XTRASOFT detachable coil deployed left internal carotid artery aneurysm Codman Orbit Galaxy Coil 3mm X 6cm Implanted:Qty: 1 on 09/12/2015 by Arik Shin MD at [place] [facility] Left: Head LENORA & LENORA CODMAN 04/28/2017 [id number] / [id number] / [id number] Description:COMPLEX XTRASOFT detachable coil deployed left internal carotid artery aneurysm Lens Intraoc 21.0 - [id number] - [id number] Implanted:Qty: 1 on 11/08/2020 by Yuri Bradley MD at OR [facility] Left: Eye BAUSCH & LOMB 06/26/2025 [id number] / [id number] / [id number] Lens Intraoc 20.5 - [id number] - [id number] Implanted:Qty: 1 on 11/22/2020 by Yuri Bradley MD at OR [facility] Right: Eye BAUSCH & LOMB 07/27/2025 [id number] / [id number] / [id number] Clip Quick 2.8mm 230cm - [id number] Implanted:Qty: 3 on 03/29/2021 by Luciana Fernandez MD at ENDOSCOPY [facility] [employer] 08/27/2023 HX-202UR. A / / Sureclip 16mm 235cm - [id number] Implanted:Qty: 2 on 05/07/2022 by Luciana Fernandez MD at ENDOSCOPY [facility] Colon MICRO TECH ENDOSCOPY 07/06/2024 [id number] / / Power Port 8fr Sngl Lumen Plas - [id number] Implanted:Qty: 1 on 01/30/2023 by Koko Santiago MD at OR [facility] N/A: Chest CR BARD : PERIPHERAL VASCULAR 07/27/2024 [id number] / / [id number] Power Port 8fr Sngl Lumen Plas - [id number] Implanted:Qty: 1 on 01/30/2023 by Koko Santiago MD at OR [facility] CR BARD : PERIPHERAL VASCULAR [id number] 07/27/2024 [id number] / / [id number] documented as of this encounter Visit Diagnoses [...] and were consensually agreed upon. Care Teams Managed Care Provider Relationship Specialty Start Date End Date Mauro Watson DO [address] [place] [address] PCP - General Family Medicine 04/13/19 documented as of this encounter
--- OUTSIDE RECORDS SUMMARY | 2024-02-19 09:38 | External Medical Summary | Summary of Care ---
Author Name Unknown Organization [facility] Address [address] [place] [address] Phone [phone] Care Team Providers Care Burlesque Dancer Name Role Phone Walter Mauro Leonardogordy Primary Care Provider Encounter Details Date Type Department Care Team (Late st Contact Info) Description 08/23/2023 Orders Only Hematology/Oncology [facility] [place] 200 [facility] [place] [address] Lasha Christine MD [address] [place] [address] Allergies Active Allergy Reactions Criticality Noted Date [...] EGFR 72 Lumbar radiculopathy 05/27/2019 Atherosclerosis of [place] co ronary artery of [place] heart with angina pectoris 05/05/2019 History of colon polyps 08/12/2018 ACEI/ARB contraindicated 09/21/2016 Carotid aneurysm, left 09/13/2015 Overview: S/p coil embolization Cerebral aneurysm, nonruptured 09/05/2015 AAA (abdominal aortic aneurysm) 06/20/2015 Overview: S/p repair Bilateral carotid artery disease 06/20/2015 Medical home patient encounter 05/19/2014 Hypertriglyceridemia 05/16/2012 CORON ATHEROSCL [place] CORON VESSEL 07/11/2010 Dyslipidemia, goal LDL below [...] 08/23/2023 9:45 AM EDT [facility] 200 [facility], [place] [phone] Diane, Chair 2 Hem Onc [place] [address] [place] [address] 09/03/2023 8:00 AM EDT Laboratory Laboratory [facility] Diane [place] [address] [place] [address] Diane, Lab [facility] 200 [facility] [place] [address] 09/03/2023 9:00 AM EDT Hem[facility] 200 [facility] [place], [place] [address] Diane, Chair 6 Hem Onc [facility] 200 [facility] [place] [address] 09/03/2023 9:45 AM EDT Office Visit Hematology/Oncology [facility] [place] 200 [facility] [place] [address] Lasha Christine MD 200 [facility] [place] [address] 10/30/2023 1:00 PM EDT Telemedicine [facility] [address] [place] [address] Dashawn Haines MD [address] [place], [place] [address] 12/17/2023 10:00 AM EDT Appointment Vascular Lab [place] [address] [place] [address] 12/17/2023 10:30 AM EDT Office Visit Vascular Surg [place] [address] [place] [address] Margarito Cabrera MD [facility] [place] [address] Scheduled Procedures Name Priority Associated Diagnoses Date/Ti [...] this encounter Medical Devices Implanted Type Area Safety Teacher Device Identifier Shelf Expiration Date Model / Serial / Lot Stent Main Body Pnvn-79-48-Zt - [id number] Implanted:Qty: 1 on 06/10/2014 by Ronal Gallegos MD at OR [facility] Aorta [employer]OOK [employer] 04/07/2016 TFFB-24-8 2-ZT / / Graft Iliac Leg Spirlz 16c22mf - [id number] Implanted:Qty: 1 on 06/10/2014 by Ronal Gallegos MD at OR [facility] Right: Aorta EAKLY GROUP 10/09/2015 [id number] / / [id number] Description: Graft Iliac Leg Spirlz 12h30ch - [id number] Implanted:Qty: 1 on 06/10/2014 by Ronal Gallegos MD at OR [facility] Right: Femoral Artery [employer] 11/07/2016 [id number] / / [id number] Stent Polmer 29mm P3110 - [id number] Implanted:Qty: 1 on 06/10/2014 by Ronal Gallegos MD at OR [facility] N/A: Aorta JNJ : CORDIS ENDOVASCULAR 07/26/2018 P3110 / / [id number] Codman Orbit Galaxy Coil 2.5mm X 3.5cm Implanted:Qty: 1 on 09/12/2015 by Arik Shin MD at OR [facility] Left: Head LENORA & LENORA CODMAN 02/26/2017 [id number] / [id number] / [id number] Description:COMPLEX XTRASOFT detachable coil deployed left internal carotid artery Codman Orbit Galaxy Coil 2.5mm X 2.5cm Implanted:Qty: 1 on 09/12/2015 by Arik Shin MD at OR [facility] Left: Head LENORA & LENORA CODMAN 01/27/2016 [id number] / [id number] / [id number] Description:COMPLEX XTRASOFT detachable coil deployed left internal carotid artery aneurysm Codman [place] 2 Stent 4mm X 30mm Implanted:Qty: 1 on 09/12/2015 by Arik Shin MD at OR [facility] Left: Head LENORA & LENORA DEPUY 03/26/2018 [id number] / [id number] / [id number] Description:Vascular reconst ruction device deployed in left internal carotid artery Codman Orbit Galaxy Coil 6mm X 20cm Implanted:Qty: 1 on 09/12/2015 by Arik Shin MD at OR [facility] Left: Head LENORA & LENORA CODMAN 09/26/2016 [id number] / [id number] / [id number] Description:COMPLEX FILL det achable coil deployed left internal carotid artery aneurysm Codman Orbit Galaxy Coil 4mm X 10cm Implanted:Qty: 1 on 09/12/2015 by Arik Shin MD at OR [facility] Left: Head LENORA & LENORA CODMAN 10/27/2015 443ERE850 0 / [id number] / [id number] Description:COMPLEX XTRASOFT detachable coil deployed left internal carotid artery aneurysm Codman Orbit Galaxy Coil 3.5mm X 9cm Implanted:Qty: 1 on 09/12/2015 by Arik Shin MD at OR [facility] Left: Head [facility] 12/28/2015 [id number] / [id number] / [id number] Description:COMPLEX XTRASOFT detachable coil deployed left internal carotid artery aneurysm Codman Orbit Galaxy Coil 3mm X 6cm Implanted:Qty: 1 on 09/12/2015 by Arik Shin MD at OR [facility] Left: Head [facility]A & [facility] 04/28/2017 [id number] / [id number] / [id number] Description:COMPLEX XTRASOFT detachable coil deployed left internal carotid artery aneurysm Lens Intraoc 21.0 - [id number] - [id number] Implanted:Qty: 1 on 11/08/2020 by Yuri Bradley MD at OR [facility] Left: Eye BAUSCH & LOMB 06/26/2025 [id number] / [id number] / [id number] Lens Intraoc 20.5 - [id number] - [id number] Implanted:Qty: 1 on 11/22/2020 by MirnaYuri camargo MD at OR [facility] Right: Eye BAUSCH & LOMB 07/27/2025 [id number] / [id number] / [id number] Clip Quick 2.8mm 230cm - [id number] Implanted:Qty: 3 on 03/29/2021 by Luciana Fernandez MD at ENDOSCOPY [facility] [employer] 08/27/2023 HX-202UR. A / / Sureclip 16mm 235cm - [id number] Implanted:Qty: 2 on 05/07/2022 by Luciana Fernandez MD at ENDOSCOPY [facility] Colon MICRO TECH ENDOSCOPY 07/06/2024 [id number] / / Power Port 8fr Sngl Lumen Plas - [id number] Implanted:Qty: 1 on 01/30/2023 by Koko Santiago MD at OR [facility] N/A: Chest CR BARD : PERIPHERAL VASCULAR 07/27/2024 [id number] / / [id number] Power Port 8fr Sngl Lumen Plas - [id number] Implanted:Qty: 1 on 01/30/2023 by Koko Santiago MD at OR [facility] CR BARD : PERIPHERAL VASCULAR [id number] 07/27/2024 [id number] / / [id number] documented as of this encounter Advance Directives [...] and were consensually agreed upon. Care Teams Burlesque Dancer Relationship Specialty Start Date End Date Mauro Watson DO [address] [place] [address] PCP - General Family Medicine 04/13/19 documented as of this encounter
--- OUTSIDE RECORDS SUMMARY | 2024-02-19 09:38 | External Medical Summary | Summary of Care ---
Author Name Unknown Organization [facility] Address [address] [place] [address] Phone [phone] Care Team Providers Care Flumer Name Role Phone Watson Mauro Brewer DO Primary Care Provider Reason for Visit * Reason Onset Date Comments Precert Future 08/22/2023 Carbo/Alimta Encounter Details Date Type Department Care Team (Late st Contact Info) Description 08/22/2023 Telephone Hematology/Oncology [facility] [place] [address] [place] [phone] Lasha Christine MD [address] [place] [address] Precert Future (Carbo/Alimta) Allergies Active Allergy Reactions Criticality Noted Date [...] Encounter - Rodriguez Mann RN - 08/23/2023 8:49 AM EDT Auth approved. Pt to be alerted that he only needs to take 1 more dose of Decadron tomorrow, let treatment room nurse know to remind patient. Called patient x 2, no answer, left detailed message on machine. * Telephone Encounter - Tia Shah OSA - 08/22/2023 3:17 PM EDT Pt added to the schedule and is aware * Telephone Encounter - Rodriguez Mann RN - 08/22/2023 2:58 PM EDT Stat orders received, beacon plan built and routed for signature. Precert alerted to stat auth. Scheduling- please schedule patient appointment for tomorrow treatment 3 hour apt "Carbo/Alimta C1,D1" (Dr. Christine). Labs were already completed today. -Chemo Consent: 08/22/23 -Chemo Education: Refused -Port Placement: Already in place -Standing Lab orders placed: Already in place -Medications Pended: Dr. Christine prescribed Decadron and Folic Acid -Hep B Labs: Completed 01/23/23 documented in this encounter Plan of Treatment Upcoming Encounters Date Type Department Care Team (Late st Contact Info) Description 08/23/2023 9:45 AM EDT Hem/Onc Treatment Hematology/Oncology Treatment, [place] [address] [place] [phone] Diane, Chair 2 Hem Onc Scenery [address] [facility] [place] [address] 09/03/2023 8:00 AM EDT Laboratory Laboratory [facility] [place] [address] [facility] [place] [phone] Diane, Lab [facility] [address] [facility] [place], [place] [address] 09/03/2023 9:00 AM EDT [facility] [address] [place] [phone] Diane, Chair 6 Hem Onc Scenery [address] [facility] [place], [place] [address] 09/03/2023 9:45 AM EDT Office Visit Hematology/Oncology [facility] [place] [address] [facility] [place], [place] [phone] Lasha Christine MD [address] [facility], [place] [address] 10/30/2023 1:00 PM EDT Telemedicine Neurosurgery, [address] [address] Dashawn Haines MD [facility] [place] [address] 12/17/2023 10:00 AM EDT Appointment Vascular Lab [address] [address] 12/17/2023 10:30 AM EDT Office Visit Vascular Surg [place] [address] [place] [address] Margarito Cabrera MD [address] [place] [address] Scheduled Procedures Name Priority Associated Diagnoses Date/Ti [...] this encounter Medical Devices Implanted Type Area Cardiac Monitor Technician Device Identifier Shelf Expiration Date Model / Serial / Lot Stent Main Body Wimc-24-54-[id number] - [id number] Implanted:Qty: 1 on 06/10/2014 by Ronal Gallegos MD at OR [facility] [place] Aorta [employer] 04/07/2016 TFFB-24-8 2-[id number] / / Graft Iliac Leg Spirlz [id number] - [id number] Implanted:Qty: 1 on 06/10/2014 by Ronal Gallegos MD at OR [facility] [place] Right: Aorta [employer] 10/09/2015 [id number] / / [id number] Description: Graft Iliac Leg Spirlz 62l01oi - [id number] Implanted:Qty: 1 on 06/10/2014 by Ronal Gallegos MD at OR [facility] [place] Right: Femoral Artery [employer] 11/07/2016 [id number] / / [id number] Stent Polmer 29mm P3110 - [id number] Implanted:Qty: 1 on 06/10/2014 by Ronal Gallegos MD at OR [facility] [place] N/A: Aorta JNJ : [employer] 07/26/2018 P3110 / / [id number] Codman Orbit Galaxy Coil 2.5mm X 3.5cm Implanted:Qty: 1 on 09/12/2015 by Arik Shin MD at OR [facility] [place] Left: Head [employer]A [employer]EN[employer] CODMAN 02/26/2017 [id number] / [id number] / [id number] Description:COMPLEX XTRASOFT detachable coil deployed left internal carotid artery Codman Orbit Galaxy Coil 2.5mm X 2.5cm Implanted:Qty: 1 on 09/12/2015 by Arik Shin MD at OR [facility] [place] Left: Head [employer]MAN 01/27/2016 [id number] / [id number] / [id number] Description:COMPLEX XTRASOFT detachable coil deployed left internal carotid artery aneurysm Codman [place] 2 Stent 4mm X 30mm Implanted:Qty: 1 on 09/12/2015 by Arik Shin MD at OR [facility] [place] Left: Head [employer] LEN[employer]A DEPUY 03/26/2018 [id number] / [id number] / [id number] Description:Vascular reconst ruction device deployed in left internal carotid artery Codman Orbit Galaxy Coil 6mm X 20cm Implanted:Qty: 1 on 09/12/2015 by Arik Shin MD at OR [facility] [place] Left: Head [employer]MAN 09/26/2016 [id number] / [id number] / [id number] Description:COMPLEX FILL det achable coil deployed left internal carotid artery aneurysm Codman Orbit Galaxy Coil 4mm X 10cm Implanted:Qty: 1 on 09/12/2015 by Arik Shin MD at OR [facility] [place] Left: Head [employer]MAN 10/27/2015 [id number] / [id number] / [id number] Description:COMPLEX XTRASOFT detachable coil deployed left internal carotid artery aneurysm Codman Orbit Galaxy Coil 3.5mm X 9cm Implanted:Qty: 1 on 09/12/2015 by Arik Shin MD at OR [facility] [place] Left: Head [employer] 12/28/2015 [id number] / [id number] / [id number] Description:COMPLEX XTRASOFT detachable coil deployed left internal carotid artery aneurysm Codman Orbit Galaxy Coil 3mm X 6cm Implanted:Qty: 1 on 09/12/2015 by Arik Shin MD at OR [facility] [place] Left: Head [employer]A [employer]A CODMAN 04/28/2017 [id number] / [id number] / [id number] Description:COMPLEX XTRASOFT detachable coil deployed left internal carotid artery aneurysm Lens Intraoc 21.0 - [id number] - [id number] Implanted:Qty: 1 on 11/08/2020 by Yuri Bradley MD at OR [facility] Left: Eye BAUSCH [employer] LOMB 06/26/2025 [id number] / [id number] / [id number] Lens Intraoc 20.5 - [id number] - [id number] Implanted:Qty: 1 on 11/22/2020 by Yuri Bradley MD at OR [facility] Right: Eye BAUSCH & LOMB 07/27/2025 [id number] / [id number] / [id number] Clip Quick 2.8mm 230cm - [id number] Implanted:Qty: 3 on 03/29/2021 by Luciana Fernandez MD at ENDOSCOPY [facility] [employer] 08/27/2023 HX-202UR. A / / Sureclip 16mm 235cm - [id number] Implanted:Qty: 2 on 05/07/2022 by Luciana Fernandez MD at ENDOSCOPY [facility] Colon MICRO TECH ENDOSCOPY 07/06/2024 [id number] / / Power Port 8fr Sngl Lumen Plas - [id number] Implanted:Qty: 1 on 01/30/2023 by Koko Santiago MD at OR [facility] N/A: Chest CR BARD : PERIPHERAL VASCULAR 07/27/2024 [id number] / / [id number] Power Port 8fr Sngl Lumen Plas - [id number] Implanted:Qty: 1 on 01/30/2023 by Koko Santiago MD at OR [facility] CR BARD : PERIPHERAL VASCULAR [id number] 07/27/2024 [id number] / / [id number] documented as of this encounter Advance Directives [...] and were consensually agreed upon. Care Teams Flumer Relationship Specialty Start Date End Date Mauro Watson DO [address] [facility] [place] [address] PCP - General Family Medicine 04/13/19 documented as of this encounter
--- NOTE | 2024-02-19 10:13 | Gastrointestinal Consultation ---
Date of Consultation February 19, 2024 Assessment & Plan (1) Abdominal pain: (2) Cirrhosis: Plan Hospitalist team has already ordered a paracentesis with fluid studies. I added cytology to this. They have also ordered an MRCP to exclude biliary issues outside of his known liver mets. As for the "new" finding of cirrhosis, the acute GI/liver issues contributing to his pain and admission are already being assessed and the full cirrhosis work-up can be conducted as an outpatient with his [facility] team. He does have evidence of portal hypertension and will eventually need an outpatient EGD (not a candidate for inpatient work-up at present due to acute sepsis & thromboc ytopenia). In the interim, avoid hepatotoxins, trend LFTs/INR, and limit sodium to <2000 mg daily. Ok to use Tylenol up to 2000 mg daily; avoid NSAIDs. We will follow along as further testing is obtained. Supervising Physician Co-Signing Physician Notes I saw and examined this patient with our nurse practitioner and agree with her assessment and plan. Patient with positive metastatic liver disease from unknown primary. Presenting with fever possible sepsis. Suspect abnormal liver enzymes are related to his metastatic liver disease as well as his underlying cirrhosis probably due to alcoholism in the past. Need to consider tumor fever, line sepsis, spontaneous bacterial peritonitis as cause for his fever. Await paracentesis analysis and cultures. No signs of hepatic encephalopathy asterixis on exam. History of Present Illness Reason for Consultation: "cirrhosis" Attending Physician: Sanchez Pichardo MD History of Present Illness Patient is a 73 yo male patient of [facility] with a PMH of cancer with unknown primary and metastatic disease to the liver.He is currently undergoing chemotherapy for suspected lung primary. Recent CT 2 weeks ago showed stable hepatic mets, ascites, & portal hypertension. GI has been consulted for cirrhosis. He came to [facility] because he was having achey abdominal discomfort (per family) and distention the last few days and family felt he was jaundiced. He was confused per family which was the main reason for presentation to the ED. Patient maintains at present that he doesn't have abdominal pain A CT upon admission indicated: 1. Numerous new irregular low-density/heterogeneous lesions throughout the liver, new since the prior. Worrisome for malignancy/metastases. 2. Nodular liver contour/cirrhosis, new since the prior. 3. Moderate ascites in the abdomen and pelvis, new since the prior. 4. Similar size of the heterogeneous 2.8 cm left adrenal nodule as on both priors. New central low-density appearance. Superimposed metastasis not excluded. 5. Colonic diverticulosis. 6. Mild wall thickening of proximal small bowel loops in the left abdomen. Nonspecific. May represent enteritis/hepatic enteropathy. Note he has already been ordered a paracentesis, fluid studies, & an MRCP per primary hospitalist team. His platelets are 9. INR 1.2. Na 133, Cr 1.14, Lactate on admission was 3.3. T bili 1.9, AST 134, ALT 74, Alk phos 272. Procal 1.42. Ammonia level within normal limits. Due to concerns for sepsis, his primary team initiated Vanco & Cefepime in the ED and this was subsequently switched to Zosyn upon admission. Allergies Allergy/AdvReac Type Severity Reaction Status Date / Time aspirin AdvReac Intermediate HIGH Verified 05/07/22 19:19 DOSES---PRONE TO BLEEDING Home Medications Medication Instructions Recorded Confirmed Type aspirin 81 mg tablet,delayed 81 mg PO DAILY 06/20/19 02/19/24 History release atorvastatin 40 mg tablet 40 mg PO HS 06/20/19 02/19/24 History metoprolol tartrate 25 mg tablet 12.5 mg PO BID 06/20/19 02/19/24 History amlodipine 5 mg tablet 5 mg PO DAILY 09/14/19 02/19/24 History gabapentin 600 mg tablet 600 mg PO TID 05/07/22 02/19/24 History acetaminophen 325 mg tablet 650 mg (2 x 325 mg) PO Q4H PRN 05/08/22 02/19/24 Rx fever or pain #30 tabs folic acid 1 mg tablet 1 mg PO QAM 02/19/24 02/19/24 History furosemide 20 mg tablet 20 mg PO QAM 02/19/24 02/19/24 History omeprazole 20 mg capsule,delayed 20 mg PO QAM 02/19/24 02/19/24 History release spironolactone 25 mg tablet 25 mg PO QAM 02/19/24 02/19/24 History Patient History Medical History (Updated 02/19/24 @ 10:08 by Lorri Fay PA-C) Abdominal pain Aortic aneurysm Vertigo Cerebral aneurysm Surgical History No pertinent past surgical history Social History Smoking Status: Former smoker Tobacco Type: Cigarettes Second Hand Exposure: Yes; Hx Alcohol Use: Yes Alcohol type: hard liquor Hx Substance Use: No Preferred Language: German Communication Ability: Effective Spanner Operator Required: No Beliefs That Will Affect Care: None marital status: Current Living Situation: Spouse Feels Safe at Home: Yes Safety Concerns: Feels Safe At This Time Assistive Devices: Glasses Review of Systems Constitutional: no fever and no chills Respiratory: no cough and no dyspnea Gastrointestinal: no abdominal pain Neurologic: confusion Physical Exam Constitutional: no acute distress Respiratory: normal respiratory effort, lungs clear to auscultation Gastrointestinal (Abdomen): Inspection/Auscultation: + abdomen distended Percussion/Palpation: abdomen soft; abdomen nontender Psychiatric: Orientation: alert and oriented x 3 Results & Data Vital Signs (Past 12 Hours) Vital Signs Temp Pulse Resp BP Pulse Ox Pulse Ox O2 Del Method 02/19/24 09:03 88 13 93 02/19/24 09:00 117/78 02/19/24 09:00 117/78 02/19/24 09:00 117/78 02/19/24 09:00 117/78 02/19/24 08:51 90 13 93 02/19/24 08:06 89 17 93 02/19/24 08:00 103/66 02/19/24 07:52 37.2 C 90 20 103/66 93 02/19/24 07:51 96 H 16 94 02/19/24 07:34 107/68 02/19/24 07:34 107/68 02/19/24 07:34 36.9 C 93 H 20 107/68 94 02/19/24 07:33 93 H 16 94 02/19/24 07:24 93 H 24 94 02/19/24 07:00 99/72 L 02/19/24 06:45 93 H 13 97 02/19/24 06:36 93 H 13 92 02/19/24 06:00 98 H 14 133/84 95 Room Air 02/19/24 05:00 119 H 18 111/90 92 Room Air 02/19/24 04:45 36.7 C 02/19/24 04:26 96 02/19/24 04:00 114 H 20 118/82 98 Room Air 02/19/24 03:00 112 H 16 108/74 92 Room Air 02/19/24 02:29 115 H 02/19/24 02:15 116 H 14 128/74 92 Room Air 02/19/24 01:09 117 H 16 93 Room Air 02/19/24 00:54 122 H 13 91 Room Air 02/19/24 00:03 121 H 18 117/88 91 Room Air 02/18/24 23:33 119 H 17 119/74 92 02/18/24 23:00 121 H 16 110/78 93 Room Air 02/18/24 22:20 133 H O2 Del Method 02/19/24 09:03 02/19/24 09:00 02/19/24 09:00 02/19/24 09:00 02/19/24 09:00 02/19/24 08:51 02/19/24 08:06 02/19/24 08:00 02/19/24 07:52 02/19/24 07:51 02/19/24 07:34 02/19/24 07:34 02/19/24 07:34 02/19/24 07:33 02/19/24 07:24 02/19/24 07:00 02/19/24 06:45 02/19/24 06:36 02/19/24 06:00 02/19/24 05:00 02/19/24 04:45 02/19/24 04:26 Room Air 02/19/24 04:00 02/19/24 03:00 02/19/24 02:29 02/19/24 02:15 02/19/24 01:09 02/19/24 00:54 02/19/24 00:03 02/18/24 23:33 02/18/24 23:00 02/18/24 22:20 Laboratory Results Laboratory Results - last 48 hr 02/18/24 02/18/24 02/18/24 21:50 22:00 22:52 WBC 5.35 RBC 3.17 L Hgb 10.7 L Hct 33.1 L MCV 104.4 H MCH 33.8 MCHC 32.3 RDW Std Deviation 62.3 H RDW Coeff of Annie 16.6 H Plt Count 12 L* MPV Immature Gran % (Auto) Neut % (Auto) Lymph % (Auto) [place] % (Auto) Eos % (Auto) Baso % (Auto) Neut # (Auto) Lymph # (Auto) [place] # (Auto) Eos # (Auto) Baso # (Auto) Immature Gran # (Auto) Absolute Nucleated RBC 0.05 Nucleated RBC % (auto) 0.9 Neutrophils % (Manual) 44 Lymphocytes % (Manual) 18 Reactive Lymphs % (Man) 29 Monocytes % (Manual) 9 Neutrophils # (Manual) 2.35 Total Absolute Neuts 2.35 Lymphocytes # (Manual) 0.96 L Reactive Lymphs # 1.55 Total Abs Lymphocytes 2.51 Monocytes # (Manual) 0.48 Hypersegmented Neuts 1+ Polychromasia 1+ Tear Drop Cells 1+ PT 12.6 H INR 1.2 H APTT 23 PTT Ratio 0.9 Sodium 134 L Potassium 4.3 Chloride 99 Carbon Dioxide 24 Anion Gap 11 BUN 28 H Creatinine 1.23 Est Cr Clr Drug Dosing Not Reportable eGFR 61.61 BUN/Creatinine Ratio 22.8 H Glucose 122 H Estimat Average Glucose 103 Hemoglobin A1c 5.2 Lactate 4.2 H* Calcium 8.8 Magnesium 1.4 L Total Bilirubin 2.0 H AST 182 H ALT 88 H Alkaline Phosphatase 330 H Ammonia Troponin I High Sens 17.4 Total Protein 6.3 Albumin 2.9 L Globulin 3.4 Albumin/Globulin Ratio 0.9 Lipase 57 Procalcitonin 1.42 H TSH 2.098 Urine Color Urine Appearance Urine pH Ur Specific [place] Urine Protein Urine Glucose (UA) Urine Ketones Urine Blood Urine Nitrite Urine Bilirubin Urine Urobilinogen Ur Leukocyte Esterase Fluid Comment Peritoneal Albumin Adenovirus (PCR) Not Detected B. pertussis DNA (PCR) Not Detected B.parapertussis DNA PCR Not Detected C. pneumoniae DNA (PCR) Not Detected Coronavirus OC43 (PCR) Not Detected Coronavirus HKU1 (PCR) Not Detected Coronavirus 229E (PCR) Not Detected SARS-CoV-2 (PCR) Not Detected Coronavirus NL63 (PCR) Not Detected Human Metapneumovir PCR Not Detected Influenza Type A (PCR) Not Detected Influenza Type B (PCR) Not Detected M. pneumoniae (PCR) Not Detected Parainfluenza 1 (PCR) Not Detected Parainfluenza 2 (PCR) Not Detected Parainfluenza 3 (PCR) Not Detected Parainfluenza 4 (PCR) Not Detected RSV (PCR) Not Detected Entero/Rhino (PCR) Not Detected Blood Type B Positive Antibody Screen NEGATIVE 02/19/24 02/19/24 02/19/24 00:57 04:27 10:48 WBC 4.43 L RBC 2.52 L Hgb 8.3 L Hct 26.3 L MCV 104.4 H MCH 32.9 MCHC 31.6 L RDW Std Deviation 64.5 H RDW Coeff of Annie 17.0 H Plt Count 9 L* MPV Immature Gran % (Auto) 0.7 Neut % (Auto) 50.3 Lymph % (Auto) 32.7 Harding % (Auto) 16.3 Eos % (Auto) 0.0 Baso % (Auto) 0.0 Neut # (Auto) 2.23 Lymph # (Auto) 1.45 Harding # (Auto) 0.72 H Eos # (Auto) 0.00 Baso # (Auto) 0.00 Immature Gran # (Auto) 0.03 Absolute Nucleated RBC 0.03 Nucleated RBC % (auto) 0.7 Neutrophils % (Manual) Lymphocytes % (Manual) Reactive Lymphs % (Man) Monocytes % (Manual) Neutrophils # (Manual) Total Absolute Neuts Lymphocytes # (Manual) Reactive Lymphs # Total Abs Lymphocytes Monocytes # (Manual) Hypersegmented Neuts 1+ Polychromasia 1+ Tear Drop Cells 1+ PT INR APTT PTT Ratio Sodium 133 L Potassium 4.2 Chloride 101 Carbon Dioxide 25 Anion Gap 7 BUN 29 H Creatinine 1.14 Est Cr Clr Drug Dosing 58.7 eGFR 67.49 BUN/Creatinine Ratio 25.4 H Glucose 123 H Estimat Average Glucose Hemoglobin A1c Lactate 3.4 H* 3.3 H* Calcium 8.1 L Magnesium Total Bilirubin 1.9 H AST 134 H ALT 74 H Alkaline Phosphatase 272 H Ammonia 51.0 Troponin I High Sens Total Protein 5.6 L Albumin 2.4 L Globulin 3.2 Albumin/Globulin Ratio 0.8 L Lipase Procalcitonin TSH Urine Color Dark Yellow Urine Appearance Clear Urine pH 5.5 Ur Specific [place] 1.044 H Urine Protein Negative Urine Glucose (UA) Negative Urine Ketones Negative Urine Blood Negative Urine Nitrite Negative Urine Bilirubin Negative Urine Urobilinogen Negative Ur Leukocyte Esterase Negative Fluid Comment Peritoneal Albumin Adenovirus (PCR) B. pertussis DNA (PCR) B.parapertussis DNA PCR C. pneumoniae DNA (PCR) Coronavirus OC43 (PCR) Coronavirus HKU1 (PCR) Coronavirus 229E (PCR) SARS-CoV-2 (PCR) Coronavirus NL63 (PCR) Human Metapneumovir PCR Influenza Type A (PCR) Influenza Type B (PCR) M. pneumoniae (PCR) Parainfluenza 1 (PCR) Parainfluenza 2 (PCR) Parainfluenza 3 (PCR) Parainfluenza 4 (PCR) RSV (PCR) Entero/Rhino (PCR) Blood Type Antibody Screen 02/19/24 02/19/24 14:14 Unknown WBC RBC 2.09 L Hgb 7.1 L Hct 21.9 L MCV 104.8 H MCH 34.0 MCHC 32.4 RDW Std Deviation 63.7 H RDW Coeff of Annie 16.9 H Plt Count 24 L* D MPV 10.4 Immature Gran % (Auto) Neut % (Auto) Lymph % (Auto) [place] % (Auto) Eos % (Auto) Baso % (Auto) Neut # (Auto) Lymph # (Auto) [place] # (Auto) Eos # (Auto) Baso # (Auto) Immature Gran # (Auto) Absolute Nucleated RBC Nucleated RBC % (auto) Neutrophils % (Manual) Lymphocytes % (Manual) Reactive Lymphs % (Man) Monocytes % (Manual) Neutrophils # (Manual) Total Absolute Neuts Lymphocytes # (Manual) Reactive Lymphs # Total Abs Lymphocytes Monocytes # (Manual) Hypersegmented Neuts Polychromasia Tear Drop Cells PT INR APTT PTT Ratio Sodium Potassium Chloride Carbon Dioxide Anion Gap BUN Creatinine Est Cr Clr Drug Dosing eGFR BUN/Creatinine Ratio Glucose Estimat Average Glucose Hemoglobin A1c Lactate 3.0 H* Calcium Magnesium Total Bilirubin AST ALT Alkaline Phosphatase Ammonia Troponin I High Sens Total Protein Albumin Globulin Albumin/Globulin Ratio Lipase Procalcitonin TSH Urine Color Urine Appearance Urine pH Ur Specific [place] Urine Protein Urine Glucose (UA) Urine Ketones Urine Blood Urine Nitrite Urine Bilirubin Urine Urobilinogen Ur Leukocyte Esterase Fluid Comment Peritoneal Albumin < 1.5 Adenovirus (PCR) B. pertussis DNA (PCR) B.parapertussis DNA PCR C. pneumoniae DNA (PCR) Coronavirus OC43 (PCR) Coronavirus HKU1 (PCR) Coronavirus 229E (PCR) SARS-CoV-2 (PCR) Coronavirus NL63 (PCR) Human Metapneumovir PCR Influenza Type A (PCR) Influenza Type B (PCR) M. pneumoniae (PCR) Parainfluenza 1 (PCR) Parainfluenza 2 (PCR) Parainfluenza 3 (PCR) Parainfluenza 4 (PCR) RSV (PCR) Entero/Rhino (PCR) Blood Type Antibody Screen Diagnostic Findings Chest X-Ray 02/18/24 21:38 XR chest 1V portable HISTORY: 73 years-old Male Dyspnea acute shortness of breath COMPARISON: CTA chest of same day TECHNIQUE: AP view of the chest FINDINGS: Right IJ Wnyyic-e-Bkzu catheter distal tip projects over the right atrium. Cardiac silhouette is mildly enlarged. Small pleural effusions with mild bibasilar consolidation. No pneumothorax or overt pulmonary edema. Degenerative changes of the shoulders and spine. Mild left perihilar atelectasis. IMPRESSION: 1. Cardiomegaly without overt pulmonary edema. 2. Small pleural effusions with mild bibasilar atelectasis. ACT 112: Negative or not required by law. The above report was generated using voice recognition software. It may contain grammatical, syntax or spelling errors. Electronically signed by: Willam Gordon M.D. 02/19/2024 7:[address] 02/18/24 22:19 CR Exam(s): CT HEAD Without Contrast EXAM: CT Head Without Intravenous Contrast CLINICAL HISTORY: Reason for exam: ams. TECHNIQUE: Axial computed tomography images of the head/brain without intravenous contrast. CTDI is 11.87 mGy and DLP is 5.94 mGy-cm. Automated exposure control was utilized for the study. A dose lowering technique was utilized adhering to the principles of ALARA. COMPARISON: CT Head dated 11/30/15, MRI dated 06/01/2019 FINDINGS: Brain: New peripheral low-density area in the right frontal lobe and insula. No intracranial hemorrhage. No midline shift. Mild volume loss with prominent ventricles and sulci. Mild periventricular white matter hypoattenuation likely reflects chronic small vessel disease. Ventricles: See above. Bones/joints: Unremarkable. No acute fracture. Soft tissues: Superficial lesion in the posterior scalp mildly increased in size. May be sebaceous cyst. Vasculature: Left supraclinoid ICA coiling as on the prior head CT. Associated streak artifact. Atherosclerotic calcifications of the cavernous carotid and vertebral arteries. No obvious dense vessel sign. Sinuses: Unremarkable as visualized. No acute sinusitis. Mastoid air cells: Unremarkable as visualized. No mastoid effusion. IMPRESSION: 1. New peripheral low-density area in the right frontal lobe and insula. May represent recent infarct. Underlying lesion not excluded. 2. Left supraclinoid ICA coiling as on the prior head CT. Communications: Verify Receipt Call Doctor Above results Electronically signed by: Angie Willoughby M.D. 02/19/24 00:55 AM Abdomen/Pelvis CT 02/18/24 22:30 Exam(s): CT ABDOMEN + PELVIS With Contrast IV Amt: 116 ml opti 320 EXAM: CT Abdomen and Pelvis With Intravenous Contrast CLINICAL HISTORY: Reason for exam: fever, abd pain, known ca. TECHNIQUE: Axial computed tomography images of the abdomen and pelvis with intravenous contrast. CTDI is 22.94 mGy and DLP is 1256.98 mGy-cm. Automated exposure control was utilized for the study. A dose lowering technique was utilized adhering to the principles of ALARA. CONTRAST: Patient received 116 ml opti 320 of IV contrast COMPARISON: CT Abdomen Pelvis dated 05/07/2022, CT chest dated 09/14/2019 FINDINGS: Lung bases: Please see CTA chest also today. Mediastinum: Small hiatal hernia. ABDOMEN: Liver: Numerous new irregular low-density/heterogeneous lesions throughout the liver, new since the prior. Larger lesions measure up to 3 cm. Nodular liver contour/cirrhosis, new since the prior. Gallbladder and bile ducts: Small gallbladder calcifications/stones. No ductal dilation. Pancreas: Unremarkable. No mass. No ductal dilation. Spleen: Unremarkable. No splenomegaly. Adrenals: Similar size of the heterogeneous 2.8 cm left adrenal nodule as on both priors. New central low-density appearance. Kidneys and ureters: Stable small left renal cyst. No hydronephrosis. Stomach and bowel: Colonic diverticulosis. Mild wall thickening of proximal small bowel loops in the left abdomen. No obstruction. PELVIS: Appendix: Normal appendix. Bladder: Bladder wall thickening versus partial distention. Reproductive: Unremarkable as visualized. ABDOMEN and PELVIS: Intraperitoneal space: Moderate ascites in the abdomen and pelvis, new since the prior. No free air. Bones/joints: No acute fracture. No dislocation. Soft tissues: Unremarkable. Vasculature: Stable appearance of aortoiliac stent graft. No abdominal aortic aneurysm. Lymph nodes: Unremarkable. No enlarged lymph nodes. IMPRESSION: 1. Numerous new irregular low-density/heterogeneous lesions throughout the liver, new since the prior. Worrisome for malignancy/metastases. 2. Nodular liver contour/cirrhosis, new since the prior. 3. Moderate ascites in the abdomen and pelvis, new since the prior. 4. Similar size of the heterogeneous 2.8 cm left adrenal nodule as on both priors. New central low-density appearance. Superimposed metastasis not excluded. 5. Colonic diverticulosis. 6. Mild wall thickening of proximal small bowel loops in the left abdomen. Nonspecific. May represent enteritis/hepatic enteropathy. Electronically signed by: Angie Willoughby M.D. 02/19/24 02:20 AM Chest CTA 02/18/24 22:30 Exam(s): CTA CHEST EXAM: CT Angiography Chest With Intravenous Contrast CLINICAL HISTORY: Reason for exam: PE. TECHNIQUE: Axial computed tomographic angiography images of the chest with intravenous contrast. CTDI is 11.87 mGy and DLP is 5.94 mGy-cm. Automated exposure control was utilized for the study. A dose lowering technique was utilized adhering to the principles of ALARA. MIP reconstructed images were created and reviewed. COMPARISON: No relevant prior studies available. FINDINGS: Pulmonary arteries: Unremarkable. No pulmonary embolism. Aorta: No acute findings. No thoracic aortic aneurysm. Lungs: Small bilateral pleural effusions. Associated atelectasis. Pleural space: See above. No pneumothorax. Heart: Moderate coronary calcifications. Moderate atherosclerotic calcifications of the arch and great vessels. No cardiomegaly. No significant pericardial effusion. No evidence of RV dysfunction. Bones/joints: No acute fracture. No dislocation. Soft tissues: Unremarkable. Lymph nodes: Unremarkable. No enlarged lymph nodes. Tubes, lines and devices: Right-sided chest port. Other findings: Please see CT abdomen pelvis also today regarding abdominal findings. IMPRESSION: 1. No evidence of pulmonary embolism. 2. Small bilateral pleural effusions. Associated atelectasis. 3. Please see CT abdomen pelvis also today regarding abdominal findings. Electronically signed by: Angie Willoughby M.D. 02/19/24 02:00 AM Paracentesis Ultrasound 02/19/24 08:00 ULTRASOUND-GUIDED PARACENTESIS CLINICAL HISTORY: Ascites PROCEDURE: Procedure and risks were explained. Informed consent was obtained. A final timeout was completed. The abdomen was prepped and draped in sterile fashion. 1% lidocaine was utilized for skin anesthesia. Utilizing ultrasound guidance, a 5 Congolese safety centesis catheter was advanced into the left lower quadrant pocket of ascites. Ultrasound images were obtained. 2 L of yellow-colored ascites fluid was removed and 1 L was sent to lab for analysis. The catheter was removed and Band-Aid applied. The patient tolerated the procedure well. Vital signs will be monitored postprocedure. IMPRESSION: Ultrasound-guided paracentesis as above. Performed, dictated, and signed by Ronal Buchanan PA-C; to be co-signed by Dr. Willam Gordon. Electronically signed by: Willam Gordon M.D. 02/19/2024 2:38 PM PG Care Time/CCT Total # of Minutes Spent Total Time Spent with Patient: Total time spent is greater than 50% in coordination of care (as documented) at patient's floor/unit and/or counseling patient: Coding Level of Care Code 22203 INT INP/OBS CARE 3/75MIN Diagnoses Abdominal pain R10.9 Cirrhosis K74.60
[2024-02-19 10:58] LABS: Appearance Urine Clear (Clear); Bilirubin Urine Negative (Negative); Blood Urine Negative (Negative); Color Urine Dark Yellow; Glucose Urine UA Negative (Negative); Ketones Urine Negative (Negative); Leukocyte Esterase Urine Negative (Negative); Nitrite Urine Negative (Negative); Protein Urine Negative (Negative); Specific Gravity Urine 1.044 (1.000-1.030); Urobilinogen Urine Negative (Negative); pH Urine 5.5 (4.5-7.5)
[2024-02-19] MEDS ORDERED: CEFEPIME 2000MG 2,000 MG/20 ML SYR IV SCH (12:00)
--- NOTE | 2024-02-19 14:18 | Ultrasound Report ---
ULTRASOUND-GUIDED PARACENTESIS CLINICAL HISTORY: Ascites PROCEDURE: Procedure and risks were explained. Informed consent was obtained. A final timeout was com pleted. The abdomen was prepped and draped in sterile fashion. 1% lidocaine was utilized for skin ane sthesia. Utilizing ultrasound guidance, a 5 Estonian safety centesis catheter was advanced into the left lower q uadrant pocket of ascites. Ultrasound images were obtained. 2 L of yellow-colored ascites fluid was r emoved and 1 L was sent to lab for analysis. The catheter was removed and Band-Aid applied. The patie nt tolerated the procedure well. Vital signs will be monitored postprocedure. IMPRESSION: Ultrasound-guided paracentesis as above. Performed, dictated, and signed by Ronal Buchanan PA-C; to be co-signed by Dr. Willam Gordon. Electronically signed by: Willam Gordon M.D. 02/19/2024 2:38 PM
[2024-02-19] MEDS: ALBUMIN 25% 25 GM/100 ML VIAL IV SCH (14:34)
[2024-02-19] MEDS: DAPTOmycin 300 MG in SYRINGE 0 ML IV SCH (14:41)
[2024-02-19] MEDS: PIPERACILLIN/TAZOBACTAM 4.5 GM/100 ML BAG IV SCH (14:41)
[2024-02-19 14:46] LABS: Hematocrit (blood only) 21.9 % (42.0-52.0); Hemoglobin 7.1 g/dl (14.0-18.0); Mean Corpuscular Hgb Conc 32.4 g/dL (32.0-36.0); Mean Corpuscular Volume 104.8 fL (80.0-100.0); Mean Platelet Volume 10.4 fL (9.4-12.4); Platelet Count 24 K/uL (130-400); RDW Coefficient of Variation 16.9 % (11.5-14.5); RDW Standard Deviation 63.7 fL (36.4-46.3); Red Blood Count 2.09 M/uL (4.70-6.10)
[2024-02-19 14:56] LABS: Albumin Peritoneal Fluid < 1.5 gm/dl
[2024-02-19 15:04] LABS: Total Protein Peritoneal Fluid < 3.0 gm/dl
[2024-02-19 15:38] LABS: Nucleated RBC # (auto) 0.02 K/uL (0.00-0.12); Nucleated RBC % (auto) 0.6 %; White Blood Count 3.47 K/ul (4.8-10.8)
[2024-02-19 15:46] LABS: Appearance Peritoneal Fluid Clear; Color Peritoneal Fluid Yellow; Lymphocytes, Fluid 41 %; Mono,Macrophage,Mesothelial 57 %; Neutrophils, Fluid 2 %; RBC Peritoneal Fluid Auto < 2000 /uL; WBC Peritoneal Fluid Auto 225 /ul (0-300)
[2024-02-19 15:49] LABS: ALC (manual) 1.25 K/uL (1.2-3.4); Blast # (manual) 0.03 K/uL (0-0); Blast Cells % (manual) 1 %; Lymphocytes # (manual) 1.25 K/uL (1.2-3.4); Lymphocytes % (manual) 36 %; Monocytes # (manual) 0.38 K/uL (0.11-0.59); Monocytes % (manual) 11 %; Neutrophils % (manual) 52 %; Polychromasia 1+; Tear Drop Cells 1+
--- NOTE | 2024-02-19 16:01 | Communication Note ---
Date of Service: February 19, 2024 Patient seen and examined at bedside. He is lying on the bed comfortably; reports fatigue and tiredness. He is vital signs stable and he is alert oriented x 3. On physical examination; Constitutional: Alert oriented x 3; appears slightly tired/lethargic. Respiratory: normal respiratory effort, lungs clear to auscultation, no wheeze, rales, rhonchi. Normal insp/exp effort, no accessory muscle use Cardiovascular: RRR, no murmur, no edema Vessels: no JVD or carotid bruit Chest: normal inspection of chest Abdomen: Distended, nontender. Bowel sound present Musculoskeletal: no cyanosis or clubbing, extremities motor strength 5/5 Skin: no rashes, warm and dry normal turgor Neurologic: PERRL, EOMI, accommodation nl, no face palsy, no dysarthria CN's II- XI intact bilaterally and moves all extremities Psychiatric: A+Ox3, euthymic affect Assessment/plan Possible sepsis SBP ruled out Lung cancer with metastasis to liver Thrombocytopenia likely due to possible sepsis/liver cirrhosis Patient presents with fever, abdominal distention. Found to have lactic acidosis Platelet count of 12,000 on admission status post platelet transfusion Underwent paracentesis with removal of 2 L saline, not suggestive of SBP Continue on empiric antibiotic for now; will follow-up on final blood culture Monitor CBC Updated patient's oncologist(Dr. Christine) on patient's request Please note the above document was generated using voice recognition software. It may contain grammatical, syntax or spelling errors. Any formal questions or concerns about the content, text or information contained within the body of this dictation should be directly addressed to the provider for clarification
--- NOTE | 2024-02-19 18:10 | Magnetic Resonance Report ---
MR brain wo con CLINICAL HISTORY: abn ct head TECHNIQUE: Multiplanar and multisequence MR images of the brain were obtained without intravenous con trast. Comparison: Comparison is made to CT head 02/18/2024 and MRI brain 06/21/2019 FINDINGS: Gyriform restricted diffusion in the left frontal lobe extending into the anterior insula and tempora l lobe. The white matter is unremarkable. The ventricular system is normal in appearance. No mass is seen. There is no mass effect or midline shift. There is no evidence of acute intraparenchymal hemorr fam. No extra axial fluid collections are seen. The corpus callosum, pituitary gland, and cerebellar tonsils appear grossly unremarkable. Flow voids of the major intracranial arterial vessels are identified. The imaged portions of the para nasal sinuses, mastoid air cells, and orbits are unremarkable. IMPRESSION: Acute infarct of the right frontal lobe as well as the anterior part of the insula and temporal lobe. ACT 112: Negative or not required by law. Electronically signed by: George Neal M.D. 02/19/2024 6:08 PM
--- NOTE | 2024-02-19 18:56 | Communication Note ---
Date of Service: February 19, 2024 Results of the MRI of the brain reviewed. CTA head and neck ordered, echocardiogram ordered. Neurology consulted. aspirin on hold due to thrombocytopenia. Continue Lipitor. change daptomycin to vancomycin. discussed plan of care with the patient over the phone.
[2024-02-19] MEDS: OPTIRAY 320 125ml IV ONE (19:17)
--- NOTE | 2024-02-19 19:20 | Pharmacy Report ---
Pharmacy PK ABX Note - Date of Service February 19, 2024 - Assessment and Plan Assessment 73 year old M started on vancomycin/zosyn for possible sepsis. 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 Presenting with fever, abdominal distention. Blood cultures, peritoneal culture pending. Previously on daptomycin, however changed this evening to vancomycin instead. Did receive a one time dose of vancomycin earlier this AM in ER Plan Vancomycin * Loading dose: 1500 mg x 1 (ED) * Maintenance dose: 1500 mg iv q 24 hours * Regimen is predicted to achieve target AUC/SIRENA of 400-600 mg/L.hr * Ordered only as empiric, could consider ordering level if continued >48 hours Pharmacy will continue to follow and will adjust dose/frequency as necessary. Thank you. Pharmacy has transitioned to AUC monitoring for vancomycin. AUC/SIRENA is the preferred PK/PD target and is associated with decreased risk of nephrotoxicity compared to traditional trough targets.
[2024-02-19] MEDS: ACETAMINOPHEN 500 MG TAB PO PRN (19:22)
[2024-02-19] MEDS: LACTATED RINGER'S 1,000 ML IV SCH (20:21)
[2024-02-19] MEDS: VANCOMYCIN HCL 1,500 MG in SODIUM CHLORIDE 0.9% 500 ML IV SCH (20:23)
--- NOTE | 2024-02-19 20:51 | CT Scan Report ---
Exam(s): CTA HEAD With Contrast IV Amt: 118ml optiray 320 EXAM: CT Angiography Head With Intravenous Contrast CLINICAL HISTORY: Reason for exam: Stroke. TECHNIQUE: Axial computed tomographic angiography images of the head with intravenous contrast. CTDI is 8 10.38 mGy and DLP is 5.19 mGy-cm. Automated exposure control was utilized for the study. A dose lowering technique was utilized adhering to the principles of ALARA. MIP reconstructed images were created and reviewed. CONTRAST: Patient received 118ml optiray 320 of IV contrast COMPARISON: No relevant prior studies available. FINDINGS: Right internal carotid artery: No acute findings. Intracranial segment is patent with no significant stenosis. No aneurysm. Right anterior cerebral artery: Unremarkable. No occlusion or significant stenosis. No aneurysm. Right middle cerebral artery: Unremarkable. No occlusion or significant stenosis. No aneurysm. Right posterior cerebral artery: Unremarkable. No occlusion or significant stenosis. No aneurysm. Right vertebral artery: Unremarkable as visualized. Left internal carotid artery: No acute findings. Intracranial segment is patent with no significant stenosis. No aneurysm. Left anterior cerebral artery: Unremarkable. No occlusion or significant stenosis. No aneurysm. Left middle cerebral artery: Unremarkable. No occlusion or significant stenosis. No aneurysm. Left posterior cerebral artery: Unremarkable. No occlusion or significant stenosis. No aneurysm. Left vertebral artery: Unremarkable as visualized. Basilar artery: Unremarkable. No occlusion or significant stenosis. No aneurysm. Other vasculature: Embolization coils are seen adjacent to the left anterior clinoid process. Sinuses: Mucosal thickening and mucus retention cysts are seen in the maxillary sinuses. There is mucosal thickening seen in the right frontal and right ethmoidal sinuses. IMPRESSION: No acute intracranial arterial occlusion Electronically signed by: Akira Chavez MD 02/19/24 20:51 PM
--- NOTE | 2024-02-19 20:57 | CT Scan Report ---
Exam(s): CTA NECK With Contrast IV Amt: 118ml optiray 320 EXAM: CT Angiography Neck With Intravenous Contrast CLINICAL HISTORY: Reason for exam: Stroke. TECHNIQUE: Routine carotid CT angiography protocol was performed with intravenous contrast. NASCET criteria using the distal ICAs for comparison were used for evaluation of stenoses. CTDI is 13.56 mGy and DLP is 563.45 mGy-cm. Automated exposure control was utilized for the study. A dose lowering technique was utilized adhering to the principles of ALARA. MIP reconstructed images were created and reviewed. CONTRAST: Patient received 118ml optiray 320 of IV contrast COMPARISON: None. FINDINGS: VASCULATURE: Right common carotid artery: Mild atherosclerotic calcification at the bifurcation of right common carotid artery. No occlusion or significant stenosis. No dissection. Right internal carotid artery: Unremarkable. Extracranial segment is patent with no occlusion or significant stenosis. No dissection. Right external carotid artery: Unremarkable. No occlusion. Right vertebral artery: Unremarkable. No occlusion or significant stenosis. No dissection. Left common carotid artery: Mild atherosclerotic calcification seen at the bifurcation of the left common carotid artery. Left internal carotid artery: Unremarkable. Extracranial segment is patent with no occlusion or significant stenosis. No dissection. Left external carotid artery: Unremarkable. No occlusion. Left vertebral artery: Unremarkable. No occlusion or significant stenosis. No dissection. NECK: Bones/joints: Unremarkable. No acute fracture. Soft tissues: Unremarkable. Lung apices: Clear. Pleural space: Bilateral small bilateral pleural effusions. CAROTID STENOSIS REFERENCE USING NASCET CRITERIA: % ICA stenosis = (1 - narrowest ICA diameter/diameter of distal cervical ICA) x 100. Mild - <50% stenosis. Moderate - 50-69% stenosis. Severe - 70-94% stenosis. Near occlusion - 95-99% stenosis. Occluded - 100% stenosis. IMPRESSION: No evidence of hemodynamically significant carotid stenosis. Electronically signed by: Akira Chavez MD 02/19/24 20:56 PM
[2024-02-20 06:26] LABS: Albumin Globulin Ratio 1.3 (0.9-2); Albumin Level 2.9 gm/dl (3.4-5.0); Bilirubin,Total 1.8 mg/dl (0.2-1.0); Calcium 8.6 mg/dl (8.6-10.3); Chol HDL Ratio 17.4 (0-5); Creatinine Clr Calc Pharmacy 60.3 ml/min; Globulin 2.2 gm/dl (2.5-4.0); Magnesium 1.8 mg/dl (1.7-2.4); Potassium 3.2 mmol/L (3.5-5.1); Total Protein 5.1 gm/dl (6.0-8.3)
[2024-02-20 06:43] LABS: Hematocrit (blood only) 19.6 % (42.0-52.0); Hemoglobin 6.2 g/dl (14.0-18.0); Mean Corpuscular Hemoglobin 33.3 pg (25.0-34.0); Mean Corpuscular Hgb Conc 31.6 g/dL (32.0-36.0); Mean Corpuscular Volume 105.4 fL (80.0-100.0); Platelet Count 20 K/uL (130-400); RDW Coefficient of Variation 17.2 % (11.5-14.5); RDW Standard Deviation 63.8 fL (36.4-46.3); Red Blood Count 1.86 M/uL (4.70-6.10); White Blood Count 2.32 K/ul (4.8-10.8)
[2024-02-20 07:18] LABS: Hypersegmented Neutrophils 1+; Immature Granulocytes # (auto) 0.01 K/uL (0.01-0.20); Immature Granulocytes % (auto) 0.4 %; Lymphocytes # (auto) 0.95 K/uL (1.20-3.40); Lymphocytes % (auto) 40.9 %; Monocytes # (auto) 0.35 K/uL (0.11-0.59); Monocytes % (auto) 15.1 %; Neutrophils # (auto) 1.01 K/uL (1.40-6.50); Neutrophils % (auto) 43.6 %; Polychromasia 1+; Tear Drop Cells 1+
[2024-02-20] MEDS ORDERED: SODIUM CHLORIDE 0.9% 100 ML IV PRN ×2 (07:21→12:35)
[2024-02-20] MEDS: POTASSIUM CHLORIDE PWD 20 MEQ PACK PO SCH (08:30)
--- NOTE | 2024-02-20 10:56 | Gastroenterology Progress Note ---
Date of Service February 20, 2024 Assessment & Plan (1) Anemia: (2) Cirrhosis: (3) Abnormal LFTs: (4) Metastasis to liver: Plan -Anemia likely multifactorial. Continue to monitor H/H and monitor for overt GI bleeding. -LFTs improving. Likely influenced by liver mets. -No SBP noted on ascitic fluid studies. -No acute GI intervention advised at present. Continue to work-up sepsis & stroke per primary team. Admission and Anticipated Discharge Date Admission Date: February 19, 2024 Supervising Physician Co-Signing Physician Notes I saw and examined this patient with our nurse practitioner and agree with her assessment and plan. More awake and alert today. Neurologic imaging suggest a possible recent stroke. Being evaluated by neurology at this time. Blood cultures so far no growth. Ascites fluid not consistent with peritonitis. Hemoglobin 6.2 today without any overt GI bleeding. With low platelet count need to consider primary bone marrow issue possibly related to his underlying metastatic cancer. He is at risk for bleeding from his liver tumors as well but there is no evidence of this at this time. Subjective Mr. Vaughn remains hospitalized. GI following for cirrhosis & concern for SBP contributing to sepsis. He was on broad spectrum antibiotics and had a paracentesis with removal of 2 L ascitic fluid yesterday. No evidence of SBP. Cultures & cytology pending. He denies abdominal pain or bloating. He denies feeling anything significantly change since his paracentesis. Of note patient had a brain MRI that showed an infarct of frontal & temporal lobe. Platelet count 20. H/H 6.2/19.6 this AM. He denies any significant GI bleeding. He notes he intermittently will experience hemorrhoidal bleeding. But no significant blood loss has been noted overnight. Physical Exam Constitutional: no acute distress Gastrointestinal (Abdomen): Inspection/Auscultation: + abdomen distended (improved) and normal bowel sounds Percussion/Palpation: abdomen soft Psychiatric: Orientation: alert and oriented x 3 Results & Data Results & Data Vital Signs (Past 12 Hours) Vital Signs Temp Pulse Pulse Resp BP BP Pulse Ox 02/20/24 10:29 36.8 C 84 17 109/68 96 02/20/24 10:14 36.7 C 90 17 113/63 96 02/20/24 09:58 36.7 C 98 H 17 113/69 97 02/20/24 07:29 87 02/20/24 07:27 36.7 C 93 H 18 109/65 94 02/20/24 07:16 02/20/24 04:00 36.5 C 85 18 101/56 L 97 02/20/24 00:00 36.6 C 91 H 18 102/64 94 O2 Del Method 02/20/24 10:29 02/20/24 10:14 02/20/24 09:58 02/20/24 07:29 02/20/24 07:27 Room Air 02/20/24 07:16 Room Air 02/20/24 04:00 Room Air 02/20/24 00:00 Room Air PG Care Time/CCT Total # of Minutes Spent Total Time Spent with Patient: Total time spent is greater than 50% in coordination of care (as documented) at patient's floor/unit and/or counseling patient: Coding Level of Care Code 12685 SUB INP/OBS CARE 3/50MIN Diagnoses Anemia D64.9 Cirrhosis K74.60 Abnormal LFTs R79.89 Metastasis to liver C78.7
--- NOTE | 2024-02-20 12:35 | Hospitalist Progress Note ---
Date of Service February 20, 2024 Assessment & Plan (1) Severe sepsis: Plan: Possible Severe Sepsis, POA Malignant neoplasm (likely lung primary as per records) metastatic to liver ongoing chemotherapy Chemotherapy-induced pancytopenia Status post transfusion of platelets/RBC Patient is a 73-year-old male with history of liver metastasis with unknown primary(most likely lung) currently on chemotherapy presented to the hospital with abdominal discomfort, fever and altered mental status. Last chemotherapy was 2 weeks ago. Labs reviewed; pancytopenia present; hemoglobin of 6.2 g/dL. Patient denies any signs or symptoms of bleeding. Peripheral blood smear ordered due to reports of single blast.No blasts noted on peripheral smear. No definitive morphological evidence of hemolysis. Hypersegmented neutrophils present. Plan to transfuse 1 unit of packed RBC. Continue empiric antibiotics for now; will follow-up on final blood culture. Infectious workup negative so far Cirhossis SBP rule out CT abdomen and pelvis on admission concerning for liver cirrhosis Status post paracentesis on 02/19 with removal of 2 L of acetic fluid. No signs of SBP Cytology showed atypical cells; unfortunately there is no cellblock for further evaluation. Acute ischemic stroke CT head on admission shows new peripheral low-density area in right frontal lobe and insula. MRI brain showed acute infarct in right frontal lobe as well as anterior part of the insula and temporal lobe. Patient thrombocytopenic; will hold off on aspirin Continue Lipitor Obtain PT OT eval Neurology consulted; appreciate recommendation hx CAD AAA status post surgery hypertension, BP on the lower side- hold antihypertensive hyperlipidemia, on statin Rx Hyperglycemia likely prediabetes, hemoglobin A1c of 5.8 this year past tobacco abuse Discussed with patient regarding plan of care. He is agreeable with the plan Time spent evaluating patient, direct bedside care, chart review, placing orders, interpretation of diagnostic studies, discussion with consultants, patient, and family members, as well as other required patient management activities is 50 minutes Please note the above document was generated using voice recognition software. It may contain grammatical, syntax or spelling errors. Any formal questions or concerns about the content, text or information contained within the body of this dictation should be directly addressed to the provider for clarification Admission and Anticipated Discharge Date Admission Date: February 19, 2024 Subjective Patient seen and examined at bedside He is comfortably sitting up at the side of the bed; not in any distress He denies fever, chills, chest pain or abdominal pain. No significant events overnight Review of Systems Review of Systems: All systems reviewed & are unremarkable except as noted in Subjective Physical Exam Physical Exam: GENERAL: Alert oriented x 3; not in distress. SKIN: Pallor, warm HEENT: Alopecia, pale palpebral conjunctivae, no ptosis, dry buccal mucosa NECK : Supple, no tenderness CHEST : b/l clear breath sounds HEART : Tachycardic,, no obvious murmurs ABDOMEN: soft, non-tedner EXTREMITIES : Minimal LE swelling, no LE tenderness, no other conspicuous deformities noted NEUROLOGIC : Coherent, no facial asymmetry, no other gross focality Results & Data Results & Data Vital Signs (Past 12 Hours) Vital Signs Temp Pulse Pulse Resp BP BP Pulse Ox 02/20/24 11:59 36.4 C L 87 17 113/69 97 02/20/24 10:59 36.8 C 84 17 109/65 02/20/24 10:29 36.8 C 84 17 109/68 96 02/20/24 10:14 36.7 C 90 17 113/63 96 02/20/24 09:58 36.7 C 98 H 17 113/69 97 02/20/24 07:29 87 02/20/24 07:27 36.7 C 93 H 18 109/65 94 02/20/24 07:16 02/20/24 04:00 36.5 C 85 18 101/56 L 97 O2 Del Method 02/20/24 11:59 02/20/24 10:59 02/20/24 10:29 02/20/24 10:14 02/20/24 09:58 02/20/24 07:29 02/20/24 07:27 Room Air 02/20/24 07:16 Room Air 02/20/24 04:00 Room Air
--- NOTE | 2024-02-20 13:30 | Neurology Consultation ---
Date of Consultation February 20, 2024 Assessment & Plan (1) Ischemic stroke: Recommend admission for continued stroke work up to include the following: Echocardiogram as part of complete stroke workup Continue frequent neurological assessments Obtain stat CT brain without contrast for any acute neurological decline Continue to monitor/control blood pressure & blood glucose Continue to monitor telemetry closely Recommend ZioPatch at DC if no evidence of arrhythmia during inpatient monitoring Continue to monitor renal and hepatic function, keep euvolemic Metabolic workup should include hgbA1c, fasting lipids, homocysteine, TSH, D Dimer, RPR, urinalysis Recommend DAPT for at least 3 weeks Recommend high dose statin therapy indefinitely if tolerated Ok from neurology perspective for VTE prophylaxis PT/OT/SLT to eval and treat Recommend eval for JOSE and consider outpatient polysomnography Continue outpatient follow up with adult neurology Telehealth Consultation Telehealth Information Telehealth Information: I performed this visit using a real-time telehealth connection between my location and the patients location ([facility]). After connecting through interactive tele-video, patient was identified by name and date of and/or wristband check.Patient (or authorized healthcare vaccine customer representative) was informed that this was a telemedicine visit and it was being conducted confidentially over secure lines. My office door was closed and no one else was present in the room with me.Patient (or authorized healthcare vaccine customer representative) provided consent to proceed with the visit, expressed an understanding of privacy and security of the telemedicine visit, and gave permission to have a hospital vaccine customer representative in the room in order to assist with the visit and to conduct portions of the visit, as needed. I informed the patient (or authorized healthcare vaccine customer representative) that I reviewed their record and presented the opportunity for them to ask any questions regarding the visit today. The patient agreed to participate. History of Present Illness Reason for Consultation: Stroke Requesting Physician: Dr. Pichardo Attending Physician: Sanchez Pichardo MD History of Present Illness 73 yo male with significant medical history of neoplasm for which he is undergoing chemotherapy presented with fever and changes in mentation. He has undergone imaging including CT angiographic studies of head and neck reveal no overt evidence of large vessel occlusion or significant/flow limiting stenosis. MRI brain depicts area of ischemic stroke right frontal lobe. I have performed televideo consultation. He is alert & oriented at this time. He does note difficulty recalling all events leading up to hospitalization but reports feeling much improvement. He is able to answer all questions appropriately, name objects on televideo monitor, repeat phrases and perform complex/embedded commands without deficit. Neurological exam is non lateralizing/nonfocal in terms of motor strength and coordination. Allergies Allergy/AdvReac Type Severity Reaction Status Date / Time aspirin AdvReac Intermediate HIGH Verified 05/07/22 19:19 DOSES---PRONE TO BLEEDING Home Medications Medication Instructions Recorded Confirmed Type aspirin 81 mg tablet,delayed 81 mg PO DAILY 06/20/19 02/19/24 History release atorvastatin 40 mg tablet 40 mg PO HS 06/20/19 02/19/24 History metoprolol tartrate 25 mg tablet 12.5 mg PO BID 06/20/19 02/19/24 History amlodipine 5 mg tablet 5 mg PO DAILY 09/14/19 02/19/24 History gabapentin 600 mg tablet 600 mg PO TID 05/07/22 02/19/24 History acetaminophen 325 mg tablet 650 mg (2 x 325 mg) PO Q4H PRN 05/08/22 02/19/24 Rx fever or pain #30 tabs folic acid 1 mg tablet 1 mg PO QAM 02/19/24 02/19/24 History furosemide 20 mg tablet 20 mg PO QAM 02/19/24 02/19/24 History omeprazole 20 mg capsule,delayed 20 mg PO QAM 02/19/24 02/19/24 History release spironolactone 25 mg tablet 25 mg PO QAM 02/19/24 02/19/24 History Patient History Medical History (Updated 02/20/24 @ 13:36 by Mp Rutledge DO) Abdominal pain Aortic aneurysm Vertigo Cerebral aneurysm Surgical History No pertinent past surgical history Social History Smoking Status: Former smoker Tobacco Type: Cigarettes Second Hand Exposure: Yes; Hx Alcohol Use: Yes Alcohol type: hard liquor Hx Substance Use: No Preferred Language: Citizen Of [place] Communication Ability: Effective Regional Economic Liaison Required: No Beliefs That Will Affect Care: None marital status: Current Living Situation: Spouse Feels Safe at Home: Yes Assistive Devices: Glasses Physical Exam Neurological Examination: Mental Status: Awake and alert. Oriented to person, place, and time. Fluency naming repetition and comprehension appear grossly intact. Affect remains appropriate. CN testing: I: Denies changes in ability to smell II:Reports no changes in visual acuity III/IV/: No evidence of gaze preference, hippus, nystagmus or roving eye movements V: Facial sensation reportedly grossly intact to light touch bilaterally VII: Facial movements appear without evidence of asymmetry VIII: Hearing appears grossly intact to loud voice bilaterally IX/X: Palate appears to elevate symmetrically XI: Shoulder shrug appears symmetric/ grossly intact bilaterally XII: Tongue protrudes midline without evidence of biting Motor exam: Strength appears grossly intact/symmetric in all extremities Sensory: Sensation is reportedly grossly intact throughout Coordination: Finger to nose and heel to downing were intact. No apparent evidence of dysmetria or dysdiadochokinesia Reflexes: Deferred Gait: Deferred Results & Data Vital Signs (Past 12 Hours) Vital Signs Temp Pulse Pulse Resp BP BP Pulse Ox 02/20/24 12:38 36.8 C 87 17 118/72 97 02/20/24 11:59 36.4 C L 87 17 113/69 97 02/20/24 10:59 36.8 C 84 17 109/65 02/20/24 10:29 36.8 C 84 17 109/68 96 02/20/24 10:14 36.7 C 90 17 113/63 96 02/20/24 09:58 36.7 C 98 H 17 113/69 97 02/20/24 07:29 87 02/20/24 07:27 36.7 C 93 H 18 109/65 94 02/20/24 07:16 02/20/24 04:00 36.5 C 85 18 101/56 L 97 O2 Del Method 02/20/24 12:38 02/20/24 11:59 02/20/24 10:59 02/20/24 10:29 02/20/24 10:14 02/20/24 09:58 02/20/24 07:29 02/20/24 07:27 Room Air 02/20/24 07:16 Room Air 02/20/24 04:00 Room Air Laboratory Results Abnormal lab results 02/18/24 02/19/24 02/20/24 Range/Units 22:52 14:14 05:55 WBC 3.47 L 2.32 L (4.8-10.8) K/ul RBC 2.09 L 1.86 L (4.70-6.10) M/uL Hgb 7.1 L 6.2 L* (14.0-18.0) g/dl Hct 21.9 L 19.6 L* (42.0-52.0) % MCV 104.8 H 105.4 H (80.0-100.0) fL MCHC 31.6 L (32.0-36.0) g/dL RDW Std Deviation 63.7 H 63.8 H (36.4-46.3) fL RDW Coeff of Annie 16.9 H 17.2 H (11.5-14.5) % Plt Count 24 L* D 20 L* (130-400) K/uL Neut # (Auto) 1.01 L (1.40-6.50) K/uL Lymph # (Auto) 0.95 L (1.20-3.40) K/uL Blast Cells # (Man) 0.03 H (0-0) K/uL Potassium 3.2 L D (3.5-5.1) mmol/L Lactate 3.0 H* (0.4-2.0) mmol/L Total Bilirubin 1.8 H (0.2-1.0) mg/dl AST 66 H (13-39) U/L Alkaline Phosphatase 168 H (34-104) U/L Total Protein 5.1 L (6.0-8.3) gm/dl Albumin 2.9 L (3.4-5.0) gm/dl Globulin 2.2 L (2.5-4.0) gm/dl Triglycerides 164 H (0-150) mg/dl VLDL Cholesterol, Calc 33 H (0-30) mg/dl Cholesterol/HDL Ratio 17.4 H (0-5) Crossmatch See Detail Diagnostic Findings Brain MRI 02/19/24 07:40 MR brain wo con CLINICAL HISTORY: abn ct head TECHNIQUE: Multiplanar and multisequence MR images of the brain were obtained without intravenous contrast. Comparison: Comparison is made to CT head 02/18/2024 and MRI brain 06/21/2019 FINDINGS: Gyriform restricted diffusion in the left frontal lobe extending into the anterior insula and temporal lobe. The white matter is unremarkable. The ventricular system is normal in appearance. No mass is seen. There is no mass effect or midline shift. There is no evidence of acute intraparenchymal hemorrhage. No extra axial fluid collections are seen. The corpus callosum, pituitary gland, and cerebellar tonsils appear grossly unremarkable. Flow voids of the major intracranial arterial vessels are identified. The imaged portions of the paranasal sinuses, mastoid air cells, and orbits are unrema rkable. IMPRESSION: Acute infarct of the right frontal lobe as well as the anterior part of the insula and temporal lobe. ACT 112: Negative or not required by law. Electronically signed by: George Neal M.D. 02/19/2024 6:08 PM Paracentesis Ultrasound 02/19/24 08:00 ULTRASOUND-GUIDED PARACENTESIS CLINICAL HISTORY: Ascites PROCEDURE: Procedure and risks were explained. Informed consent was obtained. A final timeout was completed. The abdomen was prepped and draped in sterile fashion. 1% lidocaine was utilized for skin anesthesia. Utilizing ultrasound guidance, a 5 Kinyarwanda safety centesis catheter was advanced into the left lower quadrant pocket of ascites. Ultrasound images were obtained. 2 L of yellow-colored ascites fluid was removed and 1 L was sent to lab for analysis. The catheter was removed and Band-Aid applied. The patient tolerated the procedure well. Vital signs will be monitored postprocedure. IMPRESSION: Ultrasound-guided paracentesis as above. Performed, dictated, and signed by Ronal Buchanan PA-C; to be co-signed by Dr. Willam Gordon. Electronically signed by: Willam Gordon M.D. 02/19/2024 2:38 PM Head CTA 02/19/24 18:42 Exam(s): CTA HEAD With Contrast IV Amt: 118ml optiray 320 EXAM: CT Angiography Head With Intravenous Contrast CLINICAL HISTORY: Reason for exam: Stroke. TECHNIQUE: Axial computed tomographic angiography images of the head with intravenous contrast. CTDI is 8 10.38 mGy and DLP is 5.19 mGy-cm. Automated exposure control was utilized for the study. A dose lowering technique was utilized adhering to the principles of ALARA. MIP reconstructed images were created and reviewed. CONTRAST: Patient received 118ml optiray 320 of IV contrast COMPARISON: No relevant prior studies available. FINDINGS: Right internal carotid artery: No acute findings. Intracranial segment is patent with no significant stenosis. No aneurysm. Right anterior cerebral artery: Unremarkable. No occlusion or significant stenosis. No aneurysm. Right middle cerebral artery: Unremarkable. No occlusion or significant stenosis. No aneurysm. Right posterior cerebral artery: Unremarkable. No occlusion or significant stenosis. No aneurysm. Right vertebral artery: Unremarkable as visualized. Left internal carotid artery: No acute findings. Intracranial segment is patent with no significant stenosis. No aneurysm. Left anterior cerebral artery: Unremarkable. No occlusion or significant stenosis. No aneurysm. Left middle cerebral artery: Unremarkable. No occlusion or significant stenosis. No aneurysm. Left posterior cerebral artery: Unremarkable. No occlusion or significant stenosis. No aneurysm. Left vertebral artery: Unremarkable as visualized. Basilar artery: Unremarkable. No occlusion or significant stenosis. No aneurysm. Other vasculature: Embolization coils are seen adjacent to the left anterior clinoid process. Sinuses: Mucosal thickening and mucus retention cysts are seen in the maxillary sinuses. There is mucosal thickening seen in the right frontal and right ethmoidal sinuses. IMPRESSION: No acute intracranial arterial occlusion Electronically signed by: Akira Chavez MD 02/19/24 20:51 PM Neck CTA 02/19/24 18:42 Exam(s): CTA NECK With Contrast IV Amt: 118ml optiray 320 EXAM: CT Angiography Neck With Intravenous Contrast CLINICAL HISTORY: Reason for exam: Stroke. TECHNIQUE: Routine carotid CT angiography protocol was performed with intravenous contrast. NASCET criteria using the distal ICAs for comparison were used for evaluation of stenoses. CTDI is 13.56 mGy and DLP is 563.45 mGy-cm. Automated exposure control was utilized for the study. A dose lowering technique was utilized adhering to the principles of ALARA. MIP reconstructed images were created and reviewed. CONTRAST: Patient received 118ml optiray 320 of IV contrast COMPARISON: None. FINDINGS: VASCULATURE: Right common carotid artery: Mild atherosclerotic calcification at the bifurcation of right common carotid artery. No occlusion or significant stenosis. No dissection. Right internal carotid artery: Unremarkable. Extracranial segment is patent with no occlusion or significant stenosis. No dissection. Right external carotid artery: Unremarkable. No occlusion. Right vertebral artery: Unremarkable. No occlusion or significant stenosis. No dissection. Left common carotid artery: Mild atherosclerotic calcification seen at the bifurcation of the left common carotid artery. Left internal carotid artery: Unremarkable. Extracranial segment is patent with no occlusion or significant stenosis. No dissection. Left external carotid artery: Unremarkable. No occlusion. Left vertebral artery: Unremarkable. No occlusion or significant stenosis. No dissection. NECK: Bones/joints: Unremarkable. No acute fracture. Soft tissues: Unremarkable. Lung apices: Clear. Pleural space: Bilateral small bilateral pleural effusions. CAROTID STENOSIS REFERENCE USING NASCET CRITERIA: % ICA stenosis = (1 - narrowest ICA diameter/diameter of distal cervical ICA) x 100. Mild - <50% stenosis. Moderate - 50-69% stenosis. Severe - 70-94% stenosis. Near occlusion - 95-99% stenosis. Occluded - 100% stenosis. IMPRESSION: No evidence of hemodynamically significant carotid stenosis. Electronically signed by: Akira Chavez MD 02/19/24 20:56 PM Medications Administered Home Medications Medication Instructions Recorded Confirmed Last Taken aspirin 81 mg tablet,delayed 81 mg PO DAILY 06/20/19 02/19/24 05/07/22 release atorvastatin 40 mg tablet 40 mg PO HS 06/20/19 02/19/24 05/06/22 metoprolol tartrate 25 mg tablet 12.5 mg PO BID 06/20/19 02/19/24 05/07/22 08:00 amlodipine 5 mg tablet 5 mg PO DAILY 09/14/19 02/19/24 05/07/22 gabapentin 600 mg tablet 600 mg PO TID 05/07/22 02/19/24 05/07/22 08:00 acetaminophen 325 mg tablet 650 mg (2 x 325 mg) PO Q4H PRN 05/08/22 02/19/24 Unknown fever or pain #30 tabs folic acid 1 mg tablet 1 mg PO QAM 02/19/24 02/19/24 Unknown furosemide 20 mg tablet 20 mg PO QAM 02/19/24 02/19/24 Unknown omeprazole 20 mg capsule,delayed 20 mg PO QAM 02/19/24 02/19/24 Unknown release spironolactone 25 mg tablet 25 mg PO QAM 02/19/24 02/19/24 Unknown Active Medications Generic Name Dose Route Start Last Admin Trade Name Freq PRN Reason Stop Dose Admin Acetaminophen 500 mg 02/19/24 04:51 02/19/24 19:22 Acetaminophen 500 Mg Tab PO 03/20/24 04:50 500 mg Q6H PRN Administration fever/pain Amlodipine Besylate 5 mg 02/19/24 09:00 02/19/24 09:02 Amlodipine Besylate 5 Mg Tab PO 03/20/24 08:59 5 mg DAILY CARLI Administration Folic Acid 1 mg 02/19/24 09:00 02/20/24 07:39 Folic Acid 1 Mg Tab PO 03/20/24 08:59 1 mg QAM CARLI Administration Gabapentin 400 mg 02/19/24 09:00 02/20/24 12:27 Gabapentin 400 Mg Cap PO 03/20/24 08:59 400 mg TID CARLI Administration Albumin Human 25 gm in 100 mls @ 50 mls/hr 02/19/24 13:00 02/20/24 12:22 Albumin 25% IV 02/22/24 12:59 50 mls/hr Q8H CARLI Administration Promethazine HCl 6.25 mg in 50.25 mls @ 201 mls/hr 02/19/24 04:54 02/19/24 08:25 Phenergan IV 03/20/24 04:53 Infused Q6H PRN Infusion Nausea And Vomiting Piperacillin Sod/Tazobactam Sod 4.5 gm in 100 mls @ 25 mls/hr 02/19/24 14:00 02/20/24 12:42 Zosyn IV 02/29/24 13:59 25 mls/hr Q8H CARLI Administration Protocol Vancomycin HCl 1,500 mg/ 530 mls @ 200 mls/hr 02/19/24 20:00 02/19/24 23:02 Sodium Chloride IV 02/21/24 19:59 Infused Q24H CARLI Infusion Metoprolol Tartrate 12.5 mg 02/19/24 21:00 02/20/24 07:41 Metoprolol Tartrate 25 Mg Tab PO 03/20/24 20:59 12.5 mg BID CARLI Administration Pantoprazole Sodium 40 mg 02/19/24 09:00 02/20/24 07:38 Pantoprazole 40 Mg Tab PO 03/20/24 08:59 40 mg QAM CARLI Administration Protocol Potassium Chloride 20 meq 02/20/24 09:00 02/20/24 08:30 Potassium Chloride Pwd 20 Meq Pack PO 02/22/24 08:59 20 meq BID CARLI Administration
[2024-02-20] MEDS: GADOBUTROL 65ML VIAL IV ONE (19:35)
--- NOTE | 2024-02-20 20:55 | Magnetic Resonance Report ---
Exam(s): MRI HEAD W/WO Contrast IV Amt: 7CC GADAVIST ADMINSTERED EXAM: MR Head Without and With Intravenous Contrast CLINICAL HISTORY: Reason for exam: MRI brain w contrast, rule out metastasis. TECHNIQUE: Magnetic resonance images of the head/brain without and with intravenous contrast in multiple planes. CONTRAST: Patient received 7CC GADAVIST ADMINISTERED of IV contrast COMPARISON: February 19, [address] head from February 19, 2024 FINDINGS: Brain: There is an approximately 2.7 x 3.2 cm area of T2 hyperintensity and diffusion restriction in the inferior aspect of the right frontal lobe and right insular cortex and subcortical white matter consistent with acute stroke, unchanged. Small amount of enhancement along the infarcted cortex. No other areas of abnormal contrast enhancement are identified. Small amount of patchy deep white matter T2 hyperintensity in the cerebral consistent with chronic small vessel disease. No intracranial hemorrhage is seen. Ventricles: Unremarkable. No ventriculomegaly. Bones/joints: Unremarkable. No acute fracture. Sinuses: Mild mucosal thickening in the inferior aspect of both maxillary sinuses and several ethmoid air cells. No gas/fluid levels. Mastoid air cells: Unremarkable as visualized. No mastoid effusion. Orbits: Unremarkable as visualized. IMPRESSION: There is an approximately 2.7 x 3.2 cm area of T2 hyperintensity and diffusion restriction in the inferior aspect of the right frontal lobe and right insular cortex and subcortical white matter consistent with acute stroke, unchanged. There is a small amount of enhancement to the infarcted cortex . No other abnormal enhancing lesions are seen to suggest metastasis. Electronically signed by: Kris Curry MD 02/20/24 20:54 PM
[2024-02-20] MEDS: oxyCODONE HCL IR 5 MG TAB (IMMEDIATE RELEASE) PO PRN (21:18)
[2024-02-21 07:29] VITALS: RESP 20; TEMP 97.7; O2SAT 96
[2024-02-21 08:56] LABS: Hematocrit (blood only) 24.2 % (42.0-52.0); Hemoglobin 7.8 g/dl (14.0-18.0); Mean Corpuscular Hemoglobin 32.8 pg (25.0-34.0); Mean Corpuscular Hgb Conc 32.2 g/dL (32.0-36.0); Mean Corpuscular Volume 101.7 fL (80.0-100.0); Platelet Count 32 K/uL (130-400); RDW Coefficient of Variation 21.1 % (11.5-14.5); RDW Standard Deviation 73.9 fL (36.4-46.3); Red Blood Count 2.38 M/uL (4.70-6.10)
[2024-02-21 09:10] LABS: BUN Creatinine Ratio 12.7 (10-20); Creatinine Clr Calc Pharmacy 65.7 ml/min; Potassium 3.9 mmol/L (3.5-5.1)
[2024-02-21 09:40] LABS: Nucleated RBC # (auto) 0.02 K/uL (0.00-0.12); Nucleated RBC % (auto) 0.9 %; White Blood Count 2.27 K/ul (4.8-10.8)
[2024-02-21 09:42] LABS: Anisocytosis Present; Hypersegmented Neutrophils 1+; Immature Granulocytes # (auto) 0.06 K/uL (0.01-0.20); Immature Granulocytes % (auto) 2.6 %; Lymphocytes # (auto) 0.78 K/uL (1.20-3.40); Lymphocytes % (auto) 34.4 %; Macrocytosis Present; Monocytes # (auto) 0.43 K/uL (0.11-0.59); Monocytes % (auto) 18.9 %; Neutrophils % (auto) 44.1 %; Polychromasia 1+; Tear Drop Cells 1+
--- NOTE | 2024-02-21 10:44 | Palliative Care Consultation ---
Date of Consultation February 21, 2024 Assessment & Plan (1) Cancer related pain: pleased with current regimen, does not want changes recc adding bowel regimen: Samara S 2 tabs PO daily _ miralax unit dose daily prn (2) Advanced care planning/counseling discussion: met with pt face to face at bedside for 30min, no family present we discussed his worries re mortality, the dying process and what to expect he is high information seeking and wants to plan for his 's needs when he dies, this is what worries him the most he shares they live in a multi generational home with his 2 sons and a daughter in law, everyone has separate areas but they have dinner together most nights as a family he feels they will help look after but he wants to try and have a plan for when he needs more help, he can have it and not worry about needing a residential we spoke about VNS and hospice, the difference and timing between them. he has appt with Dr Bentley next week and will be speaking about prognosis/timing and if no further chemo is planned, would be interested in hospice at home He is agreeable to OP follow up with me in [facility] (3) Palliative care by specialist: Introduced Palliative Medicine and explained our role in patient's care. Patient and/or family were receptive to palliative services for goals of care discussions. Reviewed we are different from hospice, a home health nurse visiting service. Plan As above recc bowel regimen We will schedule OP follow up in [address] Bentley updated Thank you for allowing us to participate in the ongoing care of this patient. Please page with any additional concerns. 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 Last chemotherapy was 2 weeks ago admitted with weakness and pain reports ain is much better he follows with Dr bentley at [facility] He has a clear awareness of having a terminal illness but wants to know what to expect so he can plan primary worries are about his who has adv copd and needs help Allergies Allergy/AdvReac Type Severity Reaction Status Date / Time aspirin AdvReac Intermediate HIGH Verified 05/07/22 19:19 DOSES---PRONE TO BLEEDING Home Medications Medication Instructions Recorded Confirmed Type aspirin 81 mg tablet,delayed 81 mg PO DAILY 06/20/19 02/19/24 History release atorvastatin 40 mg tablet 40 mg PO HS 06/20/19 02/19/24 History metoprolol tartrate 25 mg tablet 12.5 mg PO BID 06/20/19 02/19/24 History amlodipine 5 mg tablet 5 mg PO DAILY 09/14/19 02/19/24 History gabapentin 600 mg tablet 600 mg PO TID 05/07/22 02/19/24 History acetaminophen 325 mg tablet 650 mg (2 x 325 mg) PO Q4H PRN 05/08/22 02/19/24 Rx fever or pain #30 tabs folic acid 1 mg tablet 1 mg PO QAM 02/19/24 02/19/24 History furosemide 20 mg tablet 20 mg PO QAM 02/19/24 02/19/24 History omeprazole 20 mg capsule,delayed 20 mg PO QAM 02/19/24 02/19/24 History release spironolactone 25 mg tablet 25 mg PO QAM 02/19/24 02/19/24 History Patient History Medical History (Updated 02/21/24 @ 10:43 by Marietta Goyal DNP) Abdominal pain Aortic aneurysm Vertigo Cerebral aneurysm Surgical History No pertinent past surgical history Social History Smoking Status: Former smoker Tobacco Type: Cigarettes Second Hand Exposure: Yes; Hx Alcohol Use: Yes Alcohol type: hard liquor Hx Substance Use: No Preferred Language: [place] Communication Ability: Effective Steel Spar Operator Required: No Beliefs That Will Affect Care: None marital status: Current Living Situation: Spouse Feels Safe at Home: Yes Assistive Devices: Glasses Review of Systems Review of Systems: All systems reviewed & are unremarkable except as noted in Subjective Physical Exam Physical Exam: NCAT PERRLA NAD, resting in bed pale, ?slight jaundice Supple neck without stridor reps effort WNL, symmetric movement, no cough, CTA s1s2 Abd distended, NTP Mild BLE edema AAOx3 Results & Data Vital Signs (Past 12 Hours) Vital Signs Temp Pulse Pulse Resp BP Pulse Ox O2 Del Method 02/21/24 07:43 81 02/21/24 07:28 36.5 C 80 20 106/64 96 Room Air 02/21/24 03:26 36.7 C 92 H 18 115/77 97 Room Air 02/21/24 00:00 90 02/20/24 23:24 37 C 75 16 103/64 98 Room Air Laboratory Results data reviewed Diagnostic Findings data reviewed PG Care Time/CCT Total # of Minutes Spent Total Time Spent: 75 Total Time Spent with Patient: Total time spent is greater than 50% in coordination of care (as documented) at patient's floor/unit and/or counseling patient: Advanced Care Planning 41749 Advanced Care Planning 30 [place] [address] IN/OBS CONSULT LVL 5,80M (25 - SIGNIFICANT, SEPARATELY IDENTIFIABLE ) Patient Type New Medical Decision Making High Complexity Diagnoses Cancer related pain G89.3 Advanced care planning/counseling discussion Z71.89 Palliative care by specialist Z51.5 Additional Codes Advanced Care Planning - 65643 Advanced Care Planning 30 Min: 41248 Advanced Care Planning 30 Min ([id number])
[2024-02-21 12:05] VITALS: BP 100/62; PULSE 80
--- NOTE | 2024-02-21 12:50 | Discharge Summary ---
Date of Service February 21, 2024 Admission HPI Per Admitting Provider History obtained from patient, family, and records. 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 Last confinement April 2022 for post colonoscopy abdominal pain. Patient diagnosed to have liver mets with unknown primary and high CEA level last November 2022. Chemotherapy initiated. Subsequent cancer type ID favoring lung adenocarcinoma as per oncology records. Recent outpatient CT abdomen pelvis 2 weeks ago showed stable hepatic mets, abdominal and pelvic free fluid, left adrenal nodule presumed mets, portal hypertension. Outpatient GI referral contemplated by oncologist as per patient. Patient noted achy abdominal discomfort and distention the last few days. No chest pain. SOB more than usual with dry cough symptoms. Patient skin noted to be yellow by family. Patient somewhat confused. Fever chills at home. Vancomycin and cefepime administered at the ER. Medical History as above Surgical History : AAA repair, hemorrhoidectomy, vascular procedures Family History : Heart disease, lung cancer, colorectal cancer, AAA Personal/Social history : Past tobacco abuse, occasional EtOH intake, retired businessman Admission Exam Per Admitting Provider GENERAL: Slightly uncomfortable, chronically ill, no respiratory distress SKIN: Pallor, warm HEENT: Alopecia, pale palpebral conjunctivae, no ptosis, dry buccal mucosa NECK : Supple, no tenderness CHEST : CTA, no tenderness HEART : Tachycardic,, no obvious murmurs ABDOMEN: Some distention, epigastric tenderness EXTREMITIES : Minimal LE swelling, no LE tenderness, no other conspicuous deformities noted NEUROLOGIC : Coherent, no facial asymmetry, no other gross focality Principal Diagnosis Severe sepsisruled out Malignant neoplasm (likely lung primary as per records) metastatic to liver ongoing chemotherapy Chemotherapy-induced pancytopenia Status post transfusion of platelets/RBC Discharge Exam GENERAL: Alert oriented x 3; not in distress. SKIN: Pallor, warm HEENT: Alopecia, pale palpebral conjunctivae, no ptosis, dry buccal mucosa NECK : Supple, no tenderness CHEST : b/l clear breath sounds HEART : Tachycardic,, no obvious murmurs ABDOMEN: soft, non-tedner EXTREMITIES : Minimal LE swelling, no LE tenderness, no other conspicuous deformities noted NEUROLOGIC : Coherent, no facial asymmetry, no other gross focality Discharge Data Allergies Allergy/AdvReac Type Severity Reaction Status Date / Time aspirin AdvReac Intermediate HIGH Verified 05/07/22 19:19 DOSES---PRONE TO BLEEDING Consultations 02/19/24 03:07 ED Decision to Admit Stat 02/19/24 04:51 Consult Gastroenterology Routine 02/19/24 18:43 Consult Neurology Routine 02/20/24 12:45 Consult Palliative Care Routine Ordered Studies 02/18/24 22:19 CT head/brain wo con Stat 02/18/24 22:30 CT abd pelvis IV con only Stat CT angio chest PE protocol Stat 02/19/24 07:40 MR brain wo con Urgent 02/19/24 08:00 IR paracentesis abd w/img US Routine 02/19/24 18:42 CTA head w con [CT angio head w con] Urgent CTA neck with con [CT angio neck with con] Urgent 02/20/24 14:14 MRI Brain [MR brain wo/w con] Urgent Hospital Course (1) Severe sepsis: Possible Severe Sepsis- ruled out Malignant neoplasm (likely lung primary as per records) metastatic to liver ongoing chemotherapy Chemotherapy-induced pancytopenia Status post transfusion of platelets/RBC Patient is a 73-year-old male with history of liver metastasis with unknown primary(most likely lung) currently on chemotherapy presented to the hospital with abdominal discomfort, fever and altered mental status. Last chemotherapy was 2 weeks ago. Patient underwent CT abdomen pelvis which showed multiple liver metastasis and possible cirrhosis as well as moderate ascites. He underwent paracentesis on 02/19 with removal of 2 L of ascitis fluid. Patient underwent infectious workup including urinalysis, blood culture and evaluation of acetic fluid which did not show any infection source. Patient was on empiric antibiotic during the hospitalization. He was transfused 1 unit of packed RBC and platelets for low hemoglobin level and thrombocytopenia. Patient to follow-up with his oncologist for further evaluation/treatment. Acute ischemic stroke CT head on admission shows new peripheral low-density area in right frontal lobe and insula. MRI brain showed acute infarct in right frontal lobe as well as anterior part of the insula and temporal lobe. CTA head and neck did not show any acute blockages Echocardiogram shows normal heart function Neurology was consulted; recommended aspirin and Lipitor. Please note the above document was generated using voice recognition software. It may contain grammatical, syntax or spelling errors. Any formal questions or concerns about the content, text or information contained within the body of this dictation should be directly addressed to the provider for clarification Total Time Total Time Spent Total Time Spent (In Minutes): 45 Total Time Includes: Examination of the Patient, Discharge Planning, Medication Reconciliation, Communication With Other Providers and Other Discharge Plan Discharge Items Patient Disposition: Home - Self-Care Reason For Visit: SEPSIS Discharge Diagnosis: Possible Severe Sepsis, POA Malignant neoplasm (likely lung primary as per records) metastatic to liver ongoing chemotherapy Chemotherapy-induced pancytopenia Activity: Resume your previous activity Non-emergency contact: Primary Care Provider Call non-emergency contact if: you have any medication questions and your symptoms worsen Follow-up/Referrals: Marietta Goyal DNP [Nurse Practitioner] - 03/05/24 12:30 pm Mauro Watson DO [Primary Care Provider] - (Date & Time 02/24/2024 1:20 PM Provider Mauro Watson DO Department [facility] ) Diet: Regular Addtl Attending Provider Instructions: You were admitted to the hospital for concern for infection. Infectious work up during the hospitalization was negative. MRI of the brain showed stroke. Continue to take aspirin. Dose of lipitor increased to 80mg once day. Please follow up with Dr. Christine regaring further cancer treatment. Amlodipine is stopped as your blood pressure during the hospitalization was normal. Pending Studies at Discharge: No Stand-Alone Forms: [employer], Smoking Cessation Medications and DC Order Prescriptions: New oxycodone 5 mg Tablet 5 mg PO Q4H PRN (Reason: pain) Qty: 15 0RF atorvastatin [Lipitor] 80 mg tablet 80 mg PO DAILY Qty: 30 0RF Continued metoprolol tartrate 25 mg tablet 12.5 mg PO BID Rx Instructions: UNABLE TO VERIFY WITH PT JUST FROM RECENT FILLS aspirin 81 mg Tablet,Delayed Release (Dr/Ec) 81 mg PO DAILY gabapentin 600 mg tablet 600 mg PO TID acetaminophen 325 mg Tablet 650 mg PO Q4H PRN (Reason: fever or pain) Qty: 30 0RF spironolactone 25 mg tablet 25 mg PO QAM Rx Instructions: UNABLE TO VERIFY WITH PT JUST FROM RECENT FILLS omeprazole 20 mg capsule,delayed release(DR/EC) 20 mg PO QAM Rx Instructions: UNABLE TO VERIFY WITH PT JUST FROM RECENT FILLS folic acid 1 mg tablet 1 mg PO QAM Rx Instructions: UNABLE TO VERIFY WITH PT JUST FROM RECENT FILLS furosemide 20 mg tablet 20 mg PO QAM Rx Instructions: UNABLE TO VERIFY WITH PT JUST FROM RECENT FILLS Discontinued atorvastatin 40 mg Tablet 40 mg PO HS Rx Instructions: UNABLE TO VERIFY WITH PT JUST FROM RECENT FILLS amlodipine 5 mg tablet 5 mg PO DAILY Rx Instructions: UNABLE TO VERIFY WITH PT JUST FROM RECENT FILLS Discharge Orders: Discharge Order (Routine); Ordered 02/21/24 Ordered By: Sanchez Pascal/Other Patient Handouts: Discharge Instructions for Stroke Admission Data Admit Date/Time: 02/19/24 03:52 Attending Provider: Sanchez Pichardo Admit Provider: Luigi Joshi Primary Care Provider: Mauro Watson Other Providers: Luigi Joshi; Christiano Souza; Aly Serrano; Christina Ledesma; Amy Roca; Lorri Fay; Ernestina Delgado; Jazlyn Campbell; Silas Lujan; Mitch Larson; Jory Sauceda; Luciana Fernandez; Bran Levine S; Abril De Santiago; Janay Guy; Caroline Melchor; Amisha Crain; Enio Stone; Deep Townsend; Tia Carrasquillo; Peyton Danielle Jr; Cade Stern; Bobby Ozuna; Parker Gold; Hayder Freeman; Sandy Moran; Steve Bender I; Nelida Smith; Ritu Oliveira; Margarito Otto; Ritu Knight; Nathaniel Francis; Charlie Perez; Omari Damon; Mp Laureano; Chikis Ram; Darrius Carrero; Steve Doshi; Isidoro Virk; Niko Peters; Denia Rod; Shirley Centeno; Mp Rutledge; Abril Watson; Marietta Goyal Other Interventions: Discharge Summary Assessment (RN) Last Done: 02/21/24 12:04
[2024-02-21] MEDS: HEPARIN 100 UNIT/ML 5ML FLUSH FLUSH STA (13:03)
--- NOTE | 2024-02-22 07:42 | Electrocardiogram Report ---
Test Reason : Blood Pressure : */* mmHG Vent. Rate : 160 BPM Atrial Rate : 160 BPM P-R Int : 92 ms QRS Dur : 66 ms QT Int : 272 ms P-R-T Axes : 33 -16 104 degrees QTcB Int : 443 ms Sinus tachycardia Abnormal ECG When compared with ECG of 07-May-2022 16:44, MA interval has decreased Vent. rate has increased by [address] now depressed in Lateral leads T wave inversion now evident in Lateral leads Confirmed by Ky Lundberg ([id number] on 02/22/2024 7:42:27 AM Referred By: Confirmed By: Ky Lundberg
== END 2024-02-21 13:24 | disposition home or self-care (01) | DRG 435 ==
LOC: ED 21:28 → EDINP 02-19 03:52 → 2N 02-19 22:22